=== PATIENT | female | born 1995 | race African-American/Black ===

== ENCOUNTER 2019-02-23 09:51 | Inpatient (IN) | payer SELFPAY ==
[~2019-02-23] VITALS: Ht 162.6 cm; Wt 67.4 kg
[2019-02-23] VITALS (8 sets, daily range): BP systolic 104–118; BP diastolic 57–64
--- OUTSIDE RECORDS SUMMARY | 2019-02-23 09:54 | XMS REPORT | Clinical Summary ---
Author Author [facility] [employer] [facility] Address Unknown Phone Unavailable Care Team Providers Care Vegetable Handler Name Role Phone Suleiman Banuelos MD PCP Allergies Comments Active Allergy Reactions Severity Noted Date "throat closes, lips/face breaks out" Amoxicillin-Pot Shortness Of High 11/25/2016 Clavulanate Breath, Itching, Other (See Comments) Hives on arm of IV site. Reaction to IV only. Patient takes tablets at home. Morphine Hives Medium 01/23/2017 Medications End Date Status Medication Sig Dispensed Refills Start Date Active ALPRAZolam (XANAX) 0.5 MG Take 0.5 mg 0 tablet by mouth 3 (three) times a day as needed for anxiety. Active folic acid (FOLVITE) 1 MG Take 1 mg by 0 tablet mouth daily. Active atenolol (TENORMIN) 25 MG Take 25 mg by 0 tablet mouth daily. Active loratadine (CLARITIN) 10 Take 10 mg by 0 mg tablet mouth daily as needed for allergies. Active lidocaine (LIDODERM) 5 % Place 1 patch 0 on the skin daily as needed for mild pain. Remove & Discard patch within 12 hours or as directed by MD Active morPHINE (MSIR) 15 MG Take 15 mg by 0 tablet mouth every 3 (three) hours as needed for severe pain. Active morPHINE (MS CONTIN) 30 Take 30 mg by 0 MG 12 hr tablet mouth 2 (two) times a day. Active HYDROcodone-acetaminophen Take 1 tablet 0 (NORCO) 10-325 mg per by mouth tablet every 6 (six) hours as needed for moderate pain. 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 Negative cardiac w/u Generalized pain 02/06/2017 Sickle cell pain crisis 01/31/2017 Near syncope 01/23/2017 Sickle cell anemia 11/30/2016 Drug-induced constipation 11/30/2016 Hypertension 11/26/2016 Sickle cell crisis 11/25/2016 Family History Medical History Relation Name Comments Sickle cell trait Brother Sickle cell anemia Father Sickle cell anemia Mother Relation Name Status Comments Brother Father Mother Social History Date Tobacco Use Types Packs/Day Years Used Never Smoker Alcohol Use Drinks/Week oz/Week Comments No Sex Assigned at Date Recorded Not on file Industry Job Start Date Occupation Not on file Not on file Not on file Travel End Travel History Travel Start No recent travel history available. Last Filed Vital Signs Not on file Plan of Treatment Health Maintenance Due Date Last Done Comments CHLAMYDIA SCREENING 2012 CERVICAL CANCER SCREENING 2017 INFLUENZA VACCINE 05/23/2019 Procedures Comments Procedure Name Priority Date/Time Associated Diagnosis TRANSFUSE RED BLOOD CELLS Routine 06/27/2018 5:32 PM CDT TRANSFUSE RED BLOOD CELLS Routine 06/27/2018 5:30 PM CDT TRANSFUSE RED BLOOD CELLS Routine 06/27/2018 5:30 PM CDT after 02/22/2018 Results * Transfuse RBC (06/27/2018 5:32 PM CDT) Only the most recent of 3 results within the time period is included. after 02/22/2018 Insurance Payer Benefit Subscriber ID Type Phone Address Plan / Group [facility] xxxxxxxxx HMO/PPO THCARE CHOICE/CHO ICE + Advance Directives Patient has advance care planning documents on file. For more information, louie strauss contact: Andrew Ruiz [address] [place] [address]
--- OUTSIDE RECORDS SUMMARY | 2019-02-23 09:58 | XMS REPORT ---
Author Author [facility] Address Unknown Phone Unavailable Care Team Providers Care Field Installer Name Role Phone HILLIARDDC RICKS DELORIS Unavailable Unavailable MATT HASKINS Unavailable Unavailable EVRE OLSEN Unavailable Unavailable BUFFY FLORES Unavailable Unavailable MATT COBIAN Unavailable Unavailable Анна JJ Unavailable Unavailable GAMAL, ARISheyla Unavailable Unavailable BILL REN Unavailable Unavailable Karlie CRUZ Unavailable Unavailable ENEDINA PHELPS Unavailable Unavailable CHEN SHEPHERD Unavailable Unavailable JACEK SENA Unavailable Unavailable Problems This patient has no known problems. Allergies, Adverse Reactions, Alerts This patient has no known allergies or adverse reactions. Medications This patient has no known medications. Encounters Start Date/Time End Date/Time Encounter Type Admission Type Attending [facility] Facility Care Department Encounter ID 2017-11-10 15:25:02 Inpatient [facility] [id number] 2017-11-09 16:41:26 Inpatient [facility] [id number] 2017-11-08 14:02:58 Inpatient [facility] [id number] 2017-11-07 10:48:26 Inpatient [facility] [id number] 2017-11-05 21:25:29 Inpatient [facility] [id number] 2017-11-05 13:50:24 Inpatient [facility] [id number] 2017-11-12 14:50:04 2017-11-12 00:00:00 Inpatient [facility] [id number] 2017-11-09 00:00:00 2017-11-09 00:00:00 Outpatient [facility] [id number] 2017-11-08 14:05:30 2017-11-08 00:00:00 Inpatient [facility] [id number] 2017-11-05 06:30:40 2017-11-05 06:30:40 Inpatient [facility] [id number] 2017-11-05 19:37:38 2017-11-05 00:00:00 Inpatient [facility] [id number] 2017-08-04 16:22:16 2017-08-04 16:22:16 Emergency [facility] [id number] 2017-08-04 14:03:22 2017-08-04 14:03:22 Inpatient [facility] [id number] Results Test Description Test Time Test Comments Text Results Atomic Results Result Comments LACTATE DEHYDROGENASE (LDH) 2019-02-22 09:34:00 LACTATE DEHYDROGENASE (BEAKER) (test zwbh=155) 301 U/L 125-220 BASIC METABOLIC [id number] 09:34:00* Test Item Value Reference Range Comments SODIUM (BEAKER) (test qznn=786) 140 meq/L 136-145 POTASSIUM (BEAKER) (test lnig=957) 3.6 meq/L 3.5-5.1 CHLORIDE (BEAKER) (test pkut=988) 105 meq/L 98-107 CO2 (BEAKER) (test bdth=768) 27 meq/L 22-29 BLOOD UREA NITROGEN (BEAKER) (test tiir=111) 4 mg/dL 7-21 CREATININE (BEAKER) (test evqo=751) 0.55 mg/dL 0.57-1.25 GLUCOSE RANDOM (BEAKER) (test mgti=982) 120 mg/dL 70-105 CALCIUM (BEAKER) (test jmcw=111) 9.5 mg/dL 8.4-10.2 EGFR (BEAKER) (test nqis=2514) 168 mL/min/1.73 sq m ESTIMATED GFR IS NOT ACCURATE CREATININE CLEARANCE IN PREDICTING GLOMERULAR FILTRATION RATE. ESTIMATED GFR IS NOT APPLICABLE FOR DIALYSIS PATIENTS. CBC W/PLT COUNT & AUTO [id number] 09:12:00* Test Item Value Reference Range Comments WHITE BLOOD CELL COUNT (BEAKER) (test udat=883) 11.8 K/ L 3.5-10.5 RED BLOOD CELL COUNT (BEAKER) (test skwp=455) 3.26 M/ L 3.93-5.22 HEMOGLOBIN (BEAKER) (test bjlo=602) 7.2 GM/DL 11.2-15.7 HEMATOCRIT (BEAKER) (test dvar=708) 23.0 % 34.1-44.9 MEAN CORPUSCULAR VOLUME (BEAKER) (test disn=148) 70.6 fL 79.4-94.8 MEAN CORPUSCULAR HEMOGLOBIN (BEAKER) (test rjuz=646) 22.1 pg 25.6-32.2 MEAN CORPUSCULAR HEMOGLOBIN CONC (BEAKER) (test hgtf=943) 31.3 GM/DL 32.2-35.5 RED CELL DISTRIBUTION WIDTH (BEAKER) (test glnv=315) 17.2 % 11.7-14.4 PLATELET COUNT (BEAKER) (test vrno=285) 329 K/CU MM 150-450 MEAN PLATELET VOLUME (BEAKER) (test vxfv=904) 9.6 fL 9.4-12.3 NUCLEATED RED BLOOD CELLS (BEAKER) (test kvsb=493) 2 /100 WBC 0-0 NEUTROPHILS RELATIVE PERCENT (BEAKER) (test jbkc=403) 76 % LYMPHOCYTES RELATIVE PERCENT (BEAKER) (test slgm=123) 14 % MONOCYTES RELATIVE PERCENT (BEAKER) (test furh=025) 7 % EOSINOPHILS RELATIVE PERCENT (BEAKER) (test zatu=951) 2 % BASOPHILS RELATIVE PERCENT (BEAKER) (test ergp=688) 1 % NEUTROPHILS ABSOLUTE COUNT (BEAKER) (test mslr=332) 8.91 K/ L 1.56-6.13 LYMPHOCYTES ABSOLUTE COUNT (BEAKER) (test hbgy=506) 1.67 K/ L 1.18-3.74 MONOCYTES ABSOLUTE COUNT (BEAKER) (test ymyv=127) 0.86 K/ L 0.24-0.36 EOSINOPHILS ABSOLUTE COUNT (BEAKER) (test udca=972) 0.25 K/ L 0.04-0.36 BASOPHILS ABSOLUTE COUNT (BEAKER) (test qjgm=400) 0.08 K/ L 0.01-0.08 IMMATURE GRANULOCYTES-RELATIVE PERCENT (BEAKER) (test xsnm=7702) 0 % 0-1 RETICULOCYTE [id number] 09:12:00* Test Item Value Reference Range Comments RETICULOCYTE COUNT PCT (BEAKER) (test osmh=006) 9.7 % 0.5-1.7 BASIC METABOLIC [id number] 12:44:00* Test Item Value Reference Range Comments SODIUM (BEAKER) (test blrw=647) 141 meq/L 136-145 POTASSIUM (BEAKER) (test ecpa=935) 3.4 meq/L 3.5-5.1 CHLORIDE (BEAKER) (test epks=578) 106 meq/L 98-107 CO2 (BEAKER) (test nnnj=553) 25 meq/L 22-29 BLOOD UREA NITROGEN (BEAKER) (test phir=784) 3 mg/dL 7-21 CREATININE (BEAKER) (test hxja=323) 0.57 mg/dL 0.57-1.25 GLUCOSE RANDOM (BEAKER) (test arcc=461) 109 mg/dL 70-105 CALCIUM (BEAKER) (test ches=299) 8.9 mg/dL 8.4-10.2 EGFR (BEAKER) (test qhyt=1955) 161 mL/min/1.73 sq m ESTIMATED GFR IS NOT ACCURATE CREATININE CLEARANCE IN PREDICTING GLOMERULAR FILTRATION RATE. ESTIMATED GFR IS NOT APPLICABLE FOR DIALYSIS PATIENTS. CBC W/PLT COUNT & AUTO [id number] 06:10:00* Test Item Value Reference Range Comments WHITE BLOOD CELL COUNT (BEAKER) (test kkxz=608) 9.6 K/ L 3.5-10.5 RED BLOOD CELL COUNT (BEAKER) (test bcgy=935) 2.96 M/ L 3.93-5.22 HEMOGLOBIN (BEAKER) (test leea=217) 6.6 GM/DL 11.2-15.7 HEMATOCRIT (BEAKER) (test anea=488) 21.1 % 34.1-44.9 MEAN CORPUSCULAR VOLUME (BEAKER) (test snae=379) 71.3 fL 79.4-94.8 MEAN CORPUSCULAR HEMOGLOBIN (BEAKER) (test sayk=516) 22.3 pg 25.6-32.2 MEAN CORPUSCULAR HEMOGLOBIN CONC (BEAKER) (test lcmc=583) 31.3 GM/DL 32.2-35.5 RED CELL DISTRIBUTION WIDTH (BEAKER) (test rbjl=058) 16.6 % 11.7-14.4 PLATELET COUNT (BEAKER) (test dgpw=019) 294 K/CU MM 150-450 MEAN PLATELET VOLUME (BEAKER) (test ymsz=791) 10.2 fL 9.4-12.3 NUCLEATED RED BLOOD CELLS (BEAKER) (test wikb=891) 2 /100 WBC 0-0 NEUTROPHILS RELATIVE PERCENT (BEAKER) (test znmn=799) 57 % LYMPHOCYTES RELATIVE PERCENT (BEAKER) (test knkc=495) 28 % MONOCYTES RELATIVE PERCENT (BEAKER) (test dywn=557) 9 % EOSINOPHILS RELATIVE PERCENT (BEAKER) (test tgsm=459) 4 % BASOPHILS RELATIVE PERCENT (BEAKER) (test egpd=715) 1 % NEUTROPHILS ABSOLUTE COUNT (BEAKER) (test wcuh=633) 5.40 K/ L 1.56-6.13 LYMPHOCYTES ABSOLUTE COUNT (BEAKER) (test nqlz=936) 2.64 K/ L 1.18-3.74 MONOCYTES ABSOLUTE COUNT (BEAKER) (test eibp=590) 0.89 K/ L 0.24-0.36 EOSINOPHILS ABSOLUTE COUNT (BEAKER) (test arkg=780) 0.42 K/ L 0.04-0.36 BASOPHILS ABSOLUTE COUNT (BEAKER) (test xaes=577) 0.12 K/ L 0.01-0.08 IMMATURE GRANULOCYTES-RELATIVE PERCENT (BEAKER) (test oksd=6919) 1 % 0-1 RETICULOCYTE [id number] 06:10:00* Test Item Value Reference Range Comments RETICULOCYTE COUNT PCT (BEAKER) (test yltw=037) 8.0 % 0.5-1.7 BASIC METABOLIC [id number] 13:34:00* Test Item Value Reference Range Comments SODIUM (BEAKER) (test gcqa=967) 143 meq/L 136-145 POTASSIUM (BEAKER) (test larx=686) 4.1 meq/L 3.5-5.1 CHLORIDE (BEAKER) (test swmq=680) 107 meq/L 98-107 CO2 (BEAKER) (test savr=092) 30 meq/L 22-29 BLOOD UREA NITROGEN (BEAKER) (test ofaq=252) 3 mg/dL 7-21 CREATININE (BEAKER) (test xylx=681) 0.54 mg/dL 0.57-1.25 GLUCOSE RANDOM (BEAKER) (test ftbt=484) 95 mg/dL 70-105 CALCIUM (BEAKER) (test ujqf=101) 9.5 mg/dL 8.4-10.2 EGFR (BEAKER) (test ytvt=5603) 171 mL/min/1.73 sq m ESTIMATED GFR IS NOT ACCURATE CREATININE CLEARANCE IN PREDICTING GLOMERULAR FILTRATION RATE. ESTIMATED GFR IS NOT APPLICABLE FOR DIALYSIS PATIENTS. LACTATE DEHYDROGENASE (LDH)2019-02-20 12:57:00* Test Item Value Reference Range Comments LACTATE DEHYDROGENASE (BEAKER) (test feho=617) 392 U/L 125-220 CBC W/PLT COUNT & AUTO [id number] 12:51:00* Test Item Value Reference Range Comments WHITE BLOOD CELL COUNT (BEAKER) (test xxkx=105) 8.5 K/ L 3.5-10.5 RED BLOOD CELL COUNT (BEAKER) (test bbta=896) 3.18 M/ L 3.93-5.22 HEMOGLOBIN (BEAKER) (test phkr=098) 7.1 GM/DL 11.2-15.7 HEMATOCRIT (BEAKER) (test xvua=671) 22.4 % 34.1-44.9 MEAN CORPUSCULAR VOLUME (BEAKER) (test rfqv=813) 70.4 fL 79.4-94.8 MEAN CORPUSCULAR HEMOGLOBIN (BEAKER) (test etgi=419) 22.3 pg 25.6-32.2 MEAN CORPUSCULAR HEMOGLOBIN CONC (BEAKER) (test ikjs=846) 31.7 GM/DL 32.2-35.5 RED CELL DISTRIBUTION WIDTH (BEAKER) (test jixm=889) 16.3 % 11.7-14.4 PLATELET COUNT (BEAKER) (test ffyk=636) 301 K/CU MM 150-450 MEAN PLATELET VOLUME (BEAKER) (test mrhj=015) 9.8 fL 9.4-12.3 NUCLEATED RED BLOOD CELLS (BEAKER) (test luqz=216) 2 /100 WBC 0-0 NEUTROPHILS RELATIVE PERCENT (BEAKER) (test fohv=088) 59 % LYMPHOCYTES RELATIVE PERCENT (BEAKER) (test kwlb=692) 25 % MONOCYTES RELATIVE PERCENT (BEAKER) (test bpzc=302) 8 % EOSINOPHILS RELATIVE PERCENT (BEAKER) (test ynpr=582) 6 % BASOPHILS RELATIVE PERCENT (BEAKER) (test enzi=423) 1 % NEUTROPHILS ABSOLUTE COUNT (BEAKER) (test qzis=317) 5.02 K/ L 1.56-6.13 LYMPHOCYTES ABSOLUTE COUNT (BEAKER) (test ncpe=247) 2.13 K/ L 1.18-3.74 MONOCYTES ABSOLUTE COUNT (BEAKER) (test qgnt=873) 0.68 K/ L 0.24-0.36 EOSINOPHILS ABSOLUTE COUNT (BEAKER) (test xoot=199) 0.50 K/ L 0.04-0.36 BASOPHILS ABSOLUTE COUNT (BEAKER) (test ruay=595) 0.11 K/ L 0.01-0.08 IMMATURE GRANULOCYTES-RELATIVE PERCENT (BEAKER) (test zgos=6112) 1 % 0-1 RETICULOCYTE [id number] 07:10:00* Test Item Value Reference Range Comments RETICULOCYTE COUNT PCT (BEAKER) (test oroq=733) 6.7 % 0.5-1.7 CBC W/PLT COUNT & AUTO [id number] 07:08:00* Test Item Value Reference Range Comments WHITE BLOOD CELL COUNT (BEAKER) (test unqc=647) 6.9 K/ L 3.5-10.5 RED BLOOD CELL COUNT (BEAKER) (test fnlz=684) 2.93 M/ L 3.93-5.22 HEMOGLOBIN (BEAKER) (test dkqy=188) 6.4 GM/DL 11.2-15.7 HEMATOCRIT (BEAKER) (test soqq=355) 20.6 % 34.1-44.9 MEAN CORPUSCULAR VOLUME (BEAKER) (test kvzf=091) 70.3 fL 79.4-94.8 MEAN CORPUSCULAR HEMOGLOBIN (BEAKER) (test yzjp=704) 21.8 pg 25.6-32.2 MEAN CORPUSCULAR HEMOGLOBIN CONC (BEAKER) (test khrq=367) 31.1 GM/DL 32.2-35.5 RED CELL DISTRIBUTION WIDTH (BEAKER) (test qyah=247) 15.9 % 11.7-14.4 PLATELET COUNT (BEAKER) (test ovaa=956) 231 K/CU MM 150-450 MEAN PLATELET VOLUME (BEAKER) (test ndoi=653) 10.6 fL 9.4-12.3 NUCLEATED RED BLOOD CELLS (BEAKER) (test wjdo=683) 1 /100 WBC 0-0 NEUTROPHILS RELATIVE PERCENT (BEAKER) (test ydaj=575) 48 % LYMPHOCYTES RELATIVE PERCENT (BEAKER) (test xlnu=824) 33 % MONOCYTES RELATIVE PERCENT (BEAKER) (test mmvd=262) 12 % EOSINOPHILS RELATIVE PERCENT (BEAKER) (test wsaq=046) 6 % BASOPHILS RELATIVE PERCENT (BEAKER) (test jhef=028) 1 % NEUTROPHILS ABSOLUTE COUNT (BEAKER) (test blwv=835) 3.30 K/ L 1.56-6.13 LYMPHOCYTES ABSOLUTE COUNT (BEAKER) (test bwbc=890) 2.25 K/ L 1.18-3.74 MONOCYTES ABSOLUTE COUNT (BEAKER) (test rzat=567) 0.85 K/ L 0.24-0.36 EOSINOPHILS ABSOLUTE COUNT (BEAKER) (test khdx=611) 0.38 K/ L 0.04-0.36 BASOPHILS ABSOLUTE COUNT (BEAKER) (test awdt=174) 0.07 K/ L 0.01-0.08 IMMATURE GRANULOCYTES-RELATIVE PERCENT (BEAKER) (test nlnd=8193) 0 % 0-1 BASIC METABOLIC [id number] 06:12:00* Test Item Value Reference Range Comments SODIUM (BEAKER) (test osgl=725) 144 meq/L 136-145 POTASSIUM (BEAKER) (test psqi=224) 3.4 meq/L 3.5-5.1 CHLORIDE (BEAKER) (test nsxo=334) 109 meq/L 98-107 CO2 (BEAKER) (test mdar=242) 29 meq/L 22-29 BLOOD UREA NITROGEN (BEAKER) (test wctn=776) 6 mg/dL 7-21 CREATININE (BEAKER) (test cxqp=217) 0.49 mg/dL 0.57-1.25 GLUCOSE RANDOM (BEAKER) (test vdhh=055) 100 mg/dL 70-105 CALCIUM (BEAKER) (test bxwr=105) 9.0 mg/dL 8.4-10.2 EGFR (BEAKER) (test nnmx=9328) 191 mL/min/1.73 sq m ESTIMATED GFR IS NOT ACCURATE CREATININE CLEARANCE IN PREDICTING GLOMERULAR FILTRATION RATE. ESTIMATED GFR IS NOT APPLICABLE FOR DIALYSIS PATIENTS. CBC W/PLT COUNT & AUTO [id number] 06:31:00* Test Item Value Reference Range Comments WHITE BLOOD CELL COUNT (BEAKER) (test ccaa=804) 8.0 K/ L 3.5-10.5 RED BLOOD CELL COUNT (BEAKER) (test uueu=476) 2.67 M/ L 3.93-5.22 HEMOGLOBIN (BEAKER) (test zvdt=426) 6.0 GM/DL 11.2-15.7 HEMATOCRIT (BEAKER) (test gvzh=851) 19.3 % 34.1-44.9 MEAN CORPUSCULAR VOLUME (BEAKER) (test axsc=293) 72.3 fL 79.4-94.8 MEAN CORPUSCULAR HEMOGLOBIN (BEAKER) (test dtij=385) 22.5 pg 25.6-32.2 MEAN CORPUSCULAR HEMOGLOBIN CONC (BEAKER) (test drel=849) 31.1 GM/DL 32.2-35.5 RED CELL DISTRIBUTION WIDTH (BEAKER) (test wmjc=342) 15.9 % 11.7-14.4 PLATELET COUNT (BEAKER) (test qtfr=603) 191 K/CU MM 150-450 MEAN PLATELET VOLUME (BEAKER) (test rxss=786) 10.5 fL 9.4-12.3 NUCLEATED RED BLOOD CELLS (BEAKER) (test mjfh=988) 0 /100 WBC 0-0 NEUTROPHILS RELATIVE PERCENT (BEAKER) (test jgei=586) 54 % LYMPHOCYTES RELATIVE PERCENT (BEAKER) (test pjta=263) 26 % MONOCYTES RELATIVE PERCENT (BEAKER) (test afvs=436) 14 % EOSINOPHILS RELATIVE PERCENT (BEAKER) (test cjww=462) 5 % BASOPHILS RELATIVE PERCENT (BEAKER) (test nvyo=789) 1 % NEUTROPHILS ABSOLUTE COUNT (BEAKER) (test sxmj=087) 4.33 K/ L 1.56-6.13 LYMPHOCYTES ABSOLUTE COUNT (BEAKER) (test xnxc=721) 2.05 K/ L 1.18-3.74 MONOCYTES ABSOLUTE COUNT (BEAKER) (test nuox=867) 1.13 K/ L 0.24-0.36 EOSINOPHILS ABSOLUTE COUNT (BEAKER) (test bnap=525) 0.40 K/ L 0.04-0.36 BASOPHILS ABSOLUTE COUNT (BEAKER) (test lyvt=702) 0.06 K/ L 0.01-0.08 IMMATURE GRANULOCYTES-RELATIVE PERCENT (BEAKER) (test jnbr=4512) 0 % 0-1 RETICULOCYTE [id number] 06:27:00* Test Item Value Reference Range Comments RETICULOCYTE COUNT PCT (BEAKER) (test nyii=772) 6.7 % 0.5-1.7 CBC W/PLT COUNT & AUTO [id number] 07:16:00* Test Item Value Reference Range Comments WHITE BLOOD CELL COUNT (BEAKER) (test hcrl=784) 8.9 K/ L 3.5-10.5 RED BLOOD CELL COUNT (BEAKER) (test qtio=737) 2.74 M/ L 3.93-5.22 HEMOGLOBIN (BEAKER) (test jwnl=125) 6.1 GM/DL 11.2-15.7 HEMATOCRIT (BEAKER) (test przy=824) 19.8 % 34.1-44.9 MEAN CORPUSCULAR VOLUME (BEAKER) (test kdjl=369) 72.3 fL 79.4-94.8 MEAN CORPUSCULAR HEMOGLOBIN (BEAKER) (test nusq=876) 22.3 pg 25.6-32.2 MEAN CORPUSCULAR HEMOGLOBIN CONC (BEAKER) (test wyng=900) 30.8 GM/DL 32.2-35.5 RED CELL DISTRIBUTION WIDTH (BEAKER) (test bqfw=566) 15.5 % 11.7-14.4 PLATELET COUNT (BEAKER) (test xciy=465) 172 K/CU MM 150-450 MEAN PLATELET VOLUME (BEAKER) (test zpbm=229) 10.6 fL 9.4-12.3 NUCLEATED RED BLOOD CELLS (BEAKER) (test znsr=547) 0 /100 WBC 0-0 NEUTROPHILS RELATIVE PERCENT (BEAKER) (test rfyt=894) 55 % LYMPHOCYTES RELATIVE PERCENT (BEAKER) (test basq=010) 26 % MONOCYTES RELATIVE PERCENT (BEAKER) (test valh=282) 14 % EOSINOPHILS RELATIVE PERCENT (BEAKER) (test ewim=818) 4 % BASOPHILS RELATIVE PERCENT (BEAKER) (test dvxs=473) 1 % NEUTROPHILS ABSOLUTE COUNT (BEAKER) (test kwij=766) 4.93 K/ L 1.56-6.13 LYMPHOCYTES ABSOLUTE COUNT (BEAKER) (test wder=323) 2.30 K/ L 1.18-3.74 MONOCYTES ABSOLUTE COUNT (BEAKER) (test vgkv=772) 1.21 K/ L 0.24-0.36 EOSINOPHILS ABSOLUTE COUNT (BEAKER) (test mprm=514) 0.37 K/ L 0.04-0.36 BASOPHILS ABSOLUTE COUNT (BEAKER) (test axld=063) 0.05 K/ L 0.01-0.08 IMMATURE GRANULOCYTES-RELATIVE PERCENT (BEAKER) (test mkby=6446) 1 % 0-1 RETICULOCYTE [id number] 07:16:00* Test Item Value Reference Range Comments RETICULOCYTE COUNT PCT (BEAKER) (test hqew=132) 6.2 % 0.5-1.7 RAD, CHEST, 1 VIEW, NON [id number] 17:17:00Reason for exam:->SOBShould this be performed at the bedside?->YesFINAL REPORT Comparison: 01/30/2019 TECHNIQUE: Single view of the chest FINDINGS: Left retrocardiac densities may represent atelectasis or pneumonitis. Otherwise lungs are clear. Cardiac silhouette is within normal limits. Soft tissues are unremarkable. No acute skeletal abnormality. Signed: Yung Sotelo MDReport Verified Date/Time: 02/16/2019 17:17:31 Reading Location: [facility] [id number] Ortho Consult Reading Room C METABOLIC [id number] 10:01:00* Test Item Value Reference Range Comments SODIUM (BEAKER) (test wobp=235) 144 meq/L 136-145 POTASSIUM (BEAKER) (test aneo=244) 3.6 meq/L 3.5-5.1 CHLORIDE (BEAKER) (test hauu=021) 113 meq/L 98-107 CO2 (BEAKER) (test pvzo=617) 26 meq/L 22-29 BLOOD UREA NITROGEN (BEAKER) (test tofa=703) 6 mg/dL 7-21 CREATININE (BEAKER) (test tdfh=584) 0.50 mg/dL 0.57-1.25 GLUCOSE RANDOM (BEAKER) (test upel=566) 85 mg/dL 70-105 CALCIUM (BEAKER) (test vrrd=148) 8.2 mg/dL 8.4-10.2 EGFR (BEAKER) (test wukf=6363) 187 mL/min/1.73 sq m ESTIMATED GFR IS NOT ACCURATE CREATININE CLEARANCE IN PREDICTING GLOMERULAR FILTRATION RATE. ESTIMATED GFR IS NOT APPLICABLE FOR DIALYSIS PATIENTS. RETICULOCYTE [id number] 09:42:00* Test Item Value Reference Range Comments RETICULOCYTE COUNT PCT (BEAKER) (test pzzw=694) 6.2 % 0.5-1.7 CBC W/PLT COUNT & AUTO [id number] 09:42:00* Test Item Value Reference Range Comments WHITE BLOOD CELL COUNT (BEAKER) (test tplu=464) 11.3 K/ L 3.5-10.5 RED BLOOD CELL COUNT (BEAKER) (test idpg=941) 2.61 M/ L 3.93-5.22 HEMOGLOBIN (BEAKER) (test fink=525) 6.1 GM/DL 11.2-15.7 HEMATOCRIT (BEAKER) (test lwhr=416) 18.7 % 34.1-44.9 MEAN CORPUSCULAR VOLUME (BEAKER) (test tojr=616) 71.6 fL 79.4-94.8 MEAN CORPUSCULAR HEMOGLOBIN (BEAKER) (test qbfy=431) 23.4 pg 25.6-32.2 MEAN CORPUSCULAR HEMOGLOBIN CONC (BEAKER) (test fsjo=210) 32.6 GM/DL 32.2-35.5 RED CELL DISTRIBUTION WIDTH (BEAKER) (test mygk=569) 15.8 % 11.7-14.4 PLATELET COUNT (BEAKER) (test vjhf=555) 162 K/CU MM 150-450 MEAN PLATELET VOLUME (BEAKER) (test jbca=922) 9.7 fL 9.4-12.3 NUCLEATED RED BLOOD CELLS (BEAKER) (test gvnl=247) 2 /100 WBC 0-0 NEUTROPHILS RELATIVE PERCENT (BEAKER) (test jhvq=645) 66 % LYMPHOCYTES RELATIVE PERCENT (BEAKER) (test fchf=709) 16 % MONOCYTES RELATIVE PERCENT (BEAKER) (test yfip=807) 13 % EOSINOPHILS RELATIVE PERCENT (BEAKER) (test gahs=216) 3 % BASOPHILS RELATIVE PERCENT (BEAKER) (test wdww=839) 0 % NEUTROPHILS ABSOLUTE COUNT (BEAKER) (test cjup=153) 7.45 K/ L 1.56-6.13 LYMPHOCYTES ABSOLUTE COUNT (BEAKER) (test mhqy=872) 1.83 K/ L 1.18-3.74 MONOCYTES ABSOLUTE COUNT (BEAKER) (test bsbk=646) 1.49 K/ L 0.24-0.36 EOSINOPHILS ABSOLUTE COUNT (BEAKER) (test uyrk=400) 0.36 K/ L 0.04-0.36 BASOPHILS ABSOLUTE COUNT (BEAKER) (test fsue=610) 0.05 K/ L 0.01-0.08 IMMATURE GRANULOCYTES-RELATIVE PERCENT (BEAKER) (test mxgl=7503) 1 % 0-1 BASIC METABOLIC [id number] 16:32:00* Test Item Value Reference Range Comments SODIUM (BEAKER) (test xwly=837) 145 meq/L 136-145 POTASSIUM (BEAKER) (test rmrg=143) 3.8 meq/L 3.5-5.1 Specimen slightly hemolyzed CHLORIDE (BEAKER) (test prpr=810) 111 meq/L 98-107 CO2 (BEAKER) (test uokc=180) 25 meq/L 22-29 BLOOD UREA NITROGEN (BEAKER) (test mhmh=146) 4 mg/dL 7-21 CREATININE (BEAKER) (test prqw=694) 0.56 mg/dL 0.57-1.25 Specimen slightly hemolyzed GLUCOSE RANDOM (BEAKER) (test sypd=605) 98 mg/dL 70-105 CALCIUM (BEAKER) (test gqxv=598) 9.5 mg/dL 8.4-10.2 EGFR (BEAKER) (test sksr=8255) 164 mL/min/1.73 sq m ESTIMATED GFR IS NOT ACCURATE CREATININE CLEARANCE IN PREDICTING GLOMERULAR FILTRATION RATE. ESTIMATED GFR IS NOT APPLICABLE FOR DIALYSIS PATIENTS. Specimen slightly ictericCBC W/PLT COUNT & AUTO [id number] 16:19:00 * Test Item Value Reference Range Comments WHITE BLOOD CELL COUNT (BEAKER) (test bear=647) 14.7 K/ L 3.5-10.5 RED BLOOD CELL COUNT (BEAKER) (test clnx=211) 3.46 M/ L 3.93-5.22 HEMOGLOBIN (BEAKER) (test xcwo=181) 7.9 GM/DL 11.2-15.7 HEMATOCRIT (BEAKER) (test blcw=655) 24.6 % 34.1-44.9 MEAN CORPUSCULAR VOLUME (BEAKER) (test iwht=644) 71.1 fL 79.4-94.8 MEAN CORPUSCULAR HEMOGLOBIN (BEAKER) (test aurn=803) 22.8 pg 25.6-32.2 MEAN CORPUSCULAR HEMOGLOBIN CONC (BEAKER) (test qzat=140) 32.1 GM/DL 32.2-35.5 RED CELL DISTRIBUTION WIDTH (BEAKER) (test hqti=374) 17.2 % 11.7-14.4 PLATELET COUNT (BEAKER) (test auxg=251) 220 K/CU MM 150-450 MEAN PLATELET VOLUME (BEAKER) (test bmur=811) 10.0 fL 9.4-12.3 NUCLEATED RED BLOOD CELLS (BEAKER) (test eojk=785) 1 /100 WBC 0-0 NEUTROPHILS RELATIVE PERCENT (BEAKER) (test zrmn=793) 64 % LYMPHOCYTES RELATIVE PERCENT (BEAKER) (test ourx=820) 20 % MONOCYTES RELATIVE PERCENT (BEAKER) (test nilp=316) 10 % EOSINOPHILS RELATIVE PERCENT (BEAKER) (test nmom=781) 2 % BASOPHILS RELATIVE PERCENT (BEAKER) (test atkv=001) 1 % NEUTROPHILS ABSOLUTE COUNT (BEAKER) (test cpnk=131) 9.35 K/ L 1.56-6.13 LYMPHOCYTES ABSOLUTE COUNT (BEAKER) (test camq=518) 2.87 K/ L 1.18-3.74 MONOCYTES ABSOLUTE COUNT (BEAKER) (test gfop=107) 1.49 K/ L 0.24-0.36 EOSINOPHILS ABSOLUTE COUNT (BEAKER) (test obgk=988) 0.23 K/ L 0.04-0.36 BASOPHILS ABSOLUTE COUNT (BEAKER) (test jvvs=863) 0.20 K/ L 0.01-0.08 IMMATURE GRANULOCYTES-RELATIVE PERCENT (BEAKER) (test cgfm=7068) 4 % 0-1 RETICULOCYTE [id number] 16:19:00* Test Item Value Reference Range Comments RETICULOCYTE COUNT PCT (BEAKER) (test awku=206) 7.3 % 0.5-1.7 BLOOD [id number] 08:00:00* Test Item Value Reference Range Comments CULTURE (BEAKER) (test isvi=2057) No growth in 5 days BLOOD [id number] 08:00:00* Test Item Value Reference Range Comments CULTURE (BEAKER) (test ilik=0958) No growth in 5 days LACTATE DEHYDROGENASE (LDH)2019-02-01 06:21:00* Test Item Value Reference Range Comments LACTATE DEHYDROGENASE (BEAKER) (test laoo=284) 296 U/L 125-220 BASIC METABOLIC [id number] 06:21:00* Test Item Value Reference Range Comments SODIUM (BEAKER) (test rcfs=706) 140 meq/L 136-145 POTASSIUM (BEAKER) (test pouv=873) 4.1 meq/L 3.5-5.1 CHLORIDE (BEAKER) (test rtym=111) 108 meq/L 98-107 CO2 (BEAKER) (test tssv=043) 24 meq/L 22-29 BLOOD UREA NITROGEN (BEAKER) (test xdbk=597) 3 mg/dL 7-21 CREATININE (BEAKER) (test bcpy=968) 0.55 mg/dL 0.57-1.25 GLUCOSE RANDOM (BEAKER) (test qmwy=220) 79 mg/dL 70-105 CALCIUM (BEAKER) (test vnvm=920) 9.2 mg/dL 8.4-10.2 EGFR (BEAKER) (test tbyu=6944) 168 mL/min/1.73 sq m ESTIMATED GFR IS NOT ACCURATE CREATININE CLEARANCE IN PREDICTING GLOMERULAR FILTRATION RATE. ESTIMATED GFR IS NOT APPLICABLE FOR DIALYSIS PATIENTS. HEPATIC FUNCTION [id number] 06:21:00* Test Item Value Reference Range Comments TOTAL PROTEIN (BEAKER) (test dwal=249) 6.1 gm/dL 6.0-8.3 ALBUMIN (BEAKER) (test gvol=7448) 3.9 g/dL 3.5-5.0 BILIRUBIN TOTAL (BEAKER) (test zwiv=646) 1.5 mg/dL 0.2-1.2 BILIRUBIN DIRECT (BEAKER) (test unnp=673) 0.6 mg/dL 0.1-0.5 ALKALINE PHOSPHATASE (BEAKER) (test sacv=247) 75 U/L 40-150 AST (SGOT) (BEAKER) (test qktc=571) 22 U/L 5-34 ALT (SGPT) (BEAKER) (test izrq=674) 9 U/L 6-55 CBC W/PLT COUNT & AUTO [id number] 06:06:00* Test Item Value Reference Range Comments WHITE BLOOD CELL COUNT (BEAKER) (test hvcj=957) 7.3 K/ L 3.5-10.5 RED BLOOD CELL COUNT (BEAKER) (test bdlm=844) 3.28 M/ L 3.93-5.22 HEMOGLOBIN (BEAKER) (test jmcr=906) 7.3 GM/DL 11.2-15.7 HEMATOCRIT (BEAKER) (test qttq=445) 23.9 % 34.1-44.9 MEAN CORPUSCULAR VOLUME (BEAKER) (test zsng=503) 72.9 fL 79.4-94.8 MEAN CORPUSCULAR HEMOGLOBIN (BEAKER) (test mvjs=228) 22.3 pg 25.6-32.2 MEAN CORPUSCULAR HEMOGLOBIN CONC (BEAKER) (test olxn=859) 30.5 GM/DL 32.2-35.5 RED CELL DISTRIBUTION WIDTH (BEAKER) (test pnwy=573) 16.7 % 11.7-14.4 PLATELET COUNT (BEAKER) (test tofl=244) 297 K/CU MM 150-450 MEAN PLATELET VOLUME (BEAKER) (test xtax=976) 9.9 fL 9.4-12.3 NUCLEATED RED BLOOD CELLS (BEAKER) (test wwtb=790) 2 /100 WBC 0-0 NEUTROPHILS RELATIVE PERCENT (BEAKER) (test eczf=977) 56 % LYMPHOCYTES RELATIVE PERCENT (BEAKER) (test kzau=825) 29 % MONOCYTES RELATIVE PERCENT (BEAKER) (test itvu=653) 10 % EOSINOPHILS RELATIVE PERCENT (BEAKER) (test rzal=240) 3 % BASOPHILS RELATIVE PERCENT (BEAKER) (test gppy=997) 1 % NEUTROPHILS ABSOLUTE COUNT (BEAKER) (test pxha=519) 4.09 K/ L 1.56-6.13 LYMPHOCYTES ABSOLUTE COUNT (BEAKER) (test akza=139) 2.12 K/ L 1.18-3.74 MONOCYTES ABSOLUTE COUNT (BEAKER) (test zouh=251) 0.76 K/ L 0.24-0.36 EOSINOPHILS ABSOLUTE COUNT (BEAKER) (test ccvr=319) 0.20 K/ L 0.04-0.36 BASOPHILS ABSOLUTE COUNT (BEAKER) (test skam=485) 0.08 K/ L 0.01-0.08 IMMATURE GRANULOCYTES-RELATIVE PERCENT (BEAKER) (test rqmf=5106) 0 % 0-1 CT, CHEST, WITHOUT [id number] 08:16:00Reason for exam:->CHEST PAINIs the patient ?->NoWhat is the patient's sedation requirement?->No Sedation FINAL REPORT TECHNIQUE: CT of the chest WITHOUT intraveno us contrast. Dose modulation, iterative reconstruction, and/or weight-based adju stment of the mA/kV was utilized to reduce the radiation dose to as low as reaso nably achievable. INDICATION: 23-year-old woman with chest pain. COMPARISON: [facility] st radiograph 01/30/2019, chest CT 12/06/2018. FINDINGS: ABSENCE OF INTRAVENOUS CONTRAST DECREASES SENSITIVITY FOR DETECTION OF FOCAL LESIONS AND VASCULAR PATHO LOGY. LINES/TUBES: None. LUNGS AND AIRWAYS: Central airways are patent. Linear c onsolidative opacities in both lung bases, slightly increased on the left since 12/06/2018. PLEURA: The pleural spaces are clear. HEART AND MEDIASTINUM: The visu alized thyroid gland is normal. No significant mediastinal, hilar, or axillary l ymphadenopathy. The heart and pericardium are within normal limits. SOFT TISSUES AND BONES: Unchanged patchy sclerosis in the visualized bones with H-shaped darby tebral bodies, consistent with sickle cell disease. Mild skin thickening in both axillary regions with mild underlying subcutaneous fat stranding on the left. U PPER ABDOMEN: Unremarkable. 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 Nonspecific skin thickening in both axillary regions. Cellulitis cannot be excluded. Signed: Maximo Cooper MDReport Verified Date/Time: 01/31/2019 0 8:16:49 Reading Location: [address] Transitional Reading Room Electronical ly signed by: MAXIMO COOPER MD on 01/31/2019 08:16 AM BASIC METABOLIC [id number] 06:58:00* Test Item Value Reference Range Comments SODIUM (BEAKER) (test jdbf=911) 140 meq/L 136-145 POTASSIUM (BEAKER) (test vqha=834) 4.6 meq/L 3.5-5.1 Specimen slightly hemolyzed CHLORIDE (BEAKER) (test fqfx=302) 111 meq/L 98-107 CO2 (BEAKER) (test ewkb=097) 23 meq/L 22-29 BLOOD UREA NITROGEN (BEAKER) (test lead=767) 4 mg/dL 7-21 CREATININE (BEAKER) (test hfzz=049) 0.53 mg/dL 0.57-1.25 Specimen slightly hemolyzed GLUCOSE RANDOM (BEAKER) (test guzd=760) 83 mg/dL 70-105 CALCIUM (BEAKER) (test qngv=799) 8.5 mg/dL 8.4-10.2 EGFR (BEAKER) (test gppj=2348) 175 mL/min/1.73 sq m ESTIMATED GFR IS NOT ACCURATE CREATININE CLEARANCE IN PREDICTING GLOMERULAR FILTRATION RATE. ESTIMATED GFR IS NOT APPLICABLE FOR DIALYSIS PATIENTS. HEPATIC FUNCTION [id number] 06:58:00* Test Item Value Reference Range Comments TOTAL PROTEIN (BEAKER) (test mavt=400) 6.0 gm/dL 6.0-8.3 Specimen slightly hemolyzed ALBUMIN (BEAKER) (test rkjf=4167) 3.7 g/dL 3.5-5.0 Specimen slightly hemolyzed BILIRUBIN TOTAL (BEAKER) (test cqef=129) 1.0 mg/dL 0.2-1.2 Specimen slightly hemolyzed BILIRUBIN DIRECT (BEAKER) (test pqlf=375) 0.4 mg/dL 0.1-0.5 Specimen slightly hemolyzed ALKALINE PHOSPHATASE (BEAKER) (test swzd=887) 78 U/L 40-150 AST (SGOT) (BEAKER) (test dzpu=685) 28 U/L 5-34 Specimen slightly hemolyzed ALT (SGPT) (BEAKER) (test ezsj=654) 11 U/L 6-55 Specimen slightly hemolyzed LACTATE DEHYDROGENASE (LDH)2019-01-31 06:58:00* Test Item Value Reference Range Comments LACTATE DEHYDROGENASE (BEAKER) (test asaf=828) 364 U/L 125-220 Specimen slightly hemolyzed CBC W/PLT COUNT & AUTO [id number] 05:29:00* Test Item Value Reference Range Comments WHITE BLOOD CELL COUNT (BEAKER) (test ecwr=501) 8.0 K/ L 3.5-10.5 RED BLOOD CELL COUNT (BEAKER) (test ktrp=030) 3.04 M/ L 3.93-5.22 HEMOGLOBIN (BEAKER) (test uytx=086) 7.1 GM/DL 11.2-15.7 HEMATOCRIT (BEAKER) (test apmk=842) 22.4 % 34.1-44.9 MEAN CORPUSCULAR VOLUME (BEAKER) (test yzkz=520) 73.7 fL 79.4-94.8 MEAN CORPUSCULAR HEMOGLOBIN (BEAKER) (test kfja=427) 23.4 pg 25.6-32.2 MEAN CORPUSCULAR HEMOGLOBIN CONC (BEAKER) (test nbrg=128) 31.7 GM/DL 32.2-35.5 RED CELL DISTRIBUTION WIDTH (BEAKER) (test fkrt=088) 17.5 % 11.7-14.4 PLATELET COUNT (BEAKER) (test urpg=142) 304 K/CU MM 150-450 MEAN PLATELET VOLUME (BEAKER) (test itlx=117) 10.0 fL 9.4-12.3 NUCLEATED RED BLOOD CELLS (BEAKER) (test wxsr=146) 2 /100 WBC 0-0 NEUTROPHILS RELATIVE PERCENT (BEAKER) (test tcrt=792) 55 % LYMPHOCYTES RELATIVE PERCENT (BEAKER) (test lyks=823) 30 % MONOCYTES RELATIVE PERCENT (BEAKER) (test chpc=356) 11 % EOSINOPHILS RELATIVE PERCENT (BEAKER) (test cycm=612) 3 % BASOPHILS RELATIVE PERCENT (BEAKER) (test auqr=681) 1 % NEUTROPHILS ABSOLUTE COUNT (BEAKER) (test amie=198) 4.41 K/ L 1.56-6.13 LYMPHOCYTES ABSOLUTE COUNT (BEAKER) (test eire=778) 2.42 K/ L 1.18-3.74 MONOCYTES ABSOLUTE COUNT (BEAKER) (test dhbx=231) 0.85 K/ L 0.24-0.36 EOSINOPHILS ABSOLUTE COUNT (BEAKER) (test svyt=279) 0.22 K/ L 0.04-0.36 BASOPHILS ABSOLUTE COUNT (BEAKER) (test uaos=488) 0.07 K/ L 0.01-0.08 IMMATURE GRANULOCYTES-RELATIVE PERCENT (BEAKER) (test rtcr=0158) 0 % 0-1 SCREEN, [id number] 01:17:00* Test Item Value Reference Range Comments TEST URINE (BEAKER) (test zwzn=168) Negative URINALYSIS W/ REFLEX URINE [id number] 01:17:00* Test Item Value Reference Range Comments COLOR (BEAKER) (test wysl=820) Yellow CLARITY (BEAKER) (test vopt=466) Hazy SPECIFIC GRAVITY UA (BEAKER) (test wqjd=738) 1.012 1.001-1.035 PH UA (BEAKER) (test ujpd=361) 7.0 5.0-8.0 PROTEIN UA (BEAKER) (test rgvh=265) Negative Negative GLUCOSE UA (BEAKER) (test sxgd=403) Negative Negative KETONES UA (BEAKER) (test njjb=981) Negative Negative BILIRUBIN UA (BEAKER) (test oovc=648) Negative Negative BLOOD UA (BEAKER) (test wfqb=751) Negative Negative NITRITE UA (BEAKER) (test znqs=771) Negative Negative LEUKOCYTE ESTERASE UA (BEAKER) (test nkbx=135) Negative Negative UROBILINOGEN UA (BEAKER) (test fbpi=955) 2.0 mg/dL 0.2-1.0 RBC UA (BEAKER) (test xvtk=490) < /HPF WBC UA (BEAKER) (test osph=753) 1 /HPF BACTERIA (BEAKER) (test dqac=971) Few MUCUS (BEAKER) (test tqqh=8297) Many SQUAMOUS EPITHELIAL (BEAKER) (test gnxg=644) 7 /HPF SOURCE(BEAKER) (test bezx=6317) TROPONIN [id number] 22:49:00* Test Item Value Reference Range Comments TROPONIN I (BEAKER) (test imfk=452) < ng/mL 0.00-0.03 Troponin I (TnI) levels must be interpreted in the context of the presenting sym ptoms and the clinical findings. Elevated TnI levels indicate myocardial damage, but are not specific for ischemic heart disease. Elevated TnI levels are seen in patients with other cardiac conditions (including myocarditis and congestive h eart failure), and slight TnI elevations occur in patients with other conditions , including sepsis, renal failure, acidosis, acute neurological disease, and per sistent tachyarrhythmia.[id number] 22:41:00* Test Item Value Reference Range Comments MAGNESIUM (BEAKER) (test osvt=969) 2.5 mg/dL 1.6-2.6 BASIC METABOLIC [id number] 22:41:00* Test Item Value Reference Range Comments SODIUM (BEAKER) (test cxxz=545) 143 meq/L 136-145 POTASSIUM (BEAKER) (test emxa=327) 4.1 meq/L 3.5-5.1 CHLORIDE (BEAKER) (test hmaw=218) 111 meq/L 98-107 CO2 (BEAKER) (test dmhp=828) 25 meq/L 22-29 BLOOD UREA NITROGEN (BEAKER) (test esih=078) 5 mg/dL 7-21 CREATININE (BEAKER) (test hztn=144) 0.54 mg/dL 0.57-1.25 GLUCOSE RANDOM (BEAKER) (test wkdt=467) 78 mg/dL 70-105 CALCIUM (BEAKER) (test llli=275) 9.4 mg/dL 8.4-10.2 EGFR (BEAKER) (test expb=9960) 171 mL/min/1.73 sq m ESTIMATED GFR IS NOT ACCURATE CREATININE CLEARANCE IN PREDICTING GLOMERULAR FILTRATION RATE. ESTIMATED GFR IS NOT APPLICABLE FOR DIALYSIS PATIENTS. PT/[id number] 22:40:00* Test Item Value Reference Range Comments PROTIME (BEAKER) (test yvlw=362) 14.1 seconds 11.7-14.7 INR (BEAKER) (test egnw=419) 1.1 <=5.9 PARTIAL THROMBOPLASTIN TIME (BEAKER) (test dbhs=102) 23.2 seconds 22.5-36.0 RECOMMENDED COUMADIN/WARFARIN INR THERAPY RANGESSTANDARD DOSE: 2.0 - 3.0 Inclu emma: PROPHYLAXIS for venous thrombosis, systemic embolization; TREATMENT for kim ous thrombosis and/or pulmonary embolus.HIGH RISK: Target INR is 2.5-3.5 for pat ients with mechanical heart valves.RETICULOCYTE [id number] 22:31:00* Test Item Value Reference Range Comments RETICULOCYTE COUNT PCT (BEAKER) (test remm=036) 8.7 % 0.5-1.7 CBC W/PLT COUNT & AUTO [id number] 22:31:00* Test Item Value Reference Range Comments WHITE BLOOD CELL COUNT (BEAKER) (test nndy=217) 10.7 K/ L 3.5-10.5 RED BLOOD CELL COUNT (BEAKER) (test kwhc=043) 3.33 M/ L 3.93-5.22 HEMOGLOBIN (BEAKER) (test zksz=267) 7.7 GM/DL 11.2-15.7 HEMATOCRIT (BEAKER) (test hecf=869) 24.6 % 34.1-44.9 MEAN CORPUSCULAR VOLUME (BEAKER) (test xtnr=514) 73.9 fL 79.4-94.8 MEAN CORPUSCULAR HEMOGLOBIN (BEAKER) (test lmbo=886) 23.1 pg 25.6-32.2 MEAN CORPUSCULAR HEMOGLOBIN CONC (BEAKER) (test omou=633) 31.3 GM/DL 32.2-35.5 RED CELL DISTRIBUTION WIDTH (BEAKER) (test fkxh=854) 17.9 % 11.7-14.4 PLATELET COUNT (BEAKER) (test gqis=598) 329 K/CU MM 150-450 MEAN PLATELET VOLUME (BEAKER) (test lhxm=510) 9.9 fL 9.4-12.3 NUCLEATED RED BLOOD CELLS (BEAKER) (test poxs=722) 2 /100 WBC 0-0 NEUTROPHILS RELATIVE PERCENT (BEAKER) (test klqd=363) 56 % LYMPHOCYTES RELATIVE PERCENT (BEAKER) (test qfnq=329) 30 % MONOCYTES RELATIVE PERCENT (BEAKER) (test clat=072) 11 % EOSINOPHILS RELATIVE PERCENT (BEAKER) (test heqi=053) 2 % BASOPHILS RELATIVE PERCENT (BEAKER) (test wzhf=183) 1 % NEUTROPHILS ABSOLUTE COUNT (BEAKER) (test sgcw=827) 6.01 K/ L 1.56-6.13 LYMPHOCYTES ABSOLUTE COUNT (BEAKER) (test qjxz=688) 3.24 K/ L 1.18-3.74 MONOCYTES ABSOLUTE COUNT (BEAKER) (test hems=687) 1.13 K/ L 0.24-0.36 EOSINOPHILS ABSOLUTE COUNT (BEAKER) (test vnvd=730) 0.21 K/ L 0.04-0.36 BASOPHILS ABSOLUTE COUNT (BEAKER) (test xvss=920) 0.09 K/ L 0.01-0.08 IMMATURE GRANULOCYTES-RELATIVE PERCENT (BEAKER) (test mnex=6442) 1 % 0-1 RAD, CHEST, 1 VIEW, NON [id number] 22:15:00Reason for exam:->CHEST PAINIs the patient ?->NoShould this be performed at the bedside?->NoFINAL REPORT INDICATION: CHEST PAIN COMPARISON: December 28, 2018 TECHNIQUE: Single frontal view of the chest. FINDINGS: Lungs and pleura: In terval development of focal airspace opacity within the left lower lung No effus ion.Heart and mediastinum: Normal heart size. Unremarkable mediastinal contours. Osseous structures: Vertebral changes compatible with known diagnosis of sickle cell anemiaOther: None. IMPRESSION: Focal airspace opacity within the left lowe r lung concerning for infection Signed: Macey Collins MDReport Verified Date/T jayson: 01/30/2019 22:15:58 Reading Location: [facility] C013V Neuro Reading Room Nedra ctronically signed by: MACEY COLLINS MD on 01/30/2019 10:15 PM BASIC METABOLIC [id number] 05:55:00* Test Item Value Reference Range Comments SODIUM (BEAKER) (test kxjc=954) 139 meq/L 136-145 POTASSIUM (BEAKER) (test gcdk=798) 3.6 meq/L 3.5-5.1 CHLORIDE (BEAKER) (test vkfd=958) 105 meq/L 98-107 CO2 (BEAKER) (test kxym=453) 26 meq/L 22-29 BLOOD UREA NITROGEN (BEAKER) (test oeyl=967) 3 mg/dL 7-21 CREATININE (BEAKER) (test jtgw=042) 0.57 mg/dL 0.57-1.25 GLUCOSE RANDOM (BEAKER) (test paqu=502) 92 mg/dL 70-105 CALCIUM (BEAKER) (test czdq=888) 9.5 mg/dL 8.4-10.2 EGFR (BEAKER) (test jxqd=9584) 161 mL/min/1.73 sq m ESTIMATED GFR IS NOT ACCURATE CREATININE CLEARANCE IN PREDICTING GLOMERULAR FILTRATION RATE. ESTIMATED GFR IS NOT APPLICABLE FOR DIALYSIS PATIENTS. CBC W/PLT COUNT & AUTO [id number] 04:57:00* Test Item Value Reference Range Comments WHITE BLOOD CELL COUNT (BEAKER) (test napx=101) 11.3 K/ L 3.5-10.5 RED BLOOD CELL COUNT (BEAKER) (test uaid=625) 3.61 M/ L 3.93-5.22 HEMOGLOBIN (BEAKER) (test pwtj=100) 8.4 GM/DL 11.2-15.7 HEMATOCRIT (BEAKER) (test xive=307) 27.0 % 34.1-44.9 MEAN CORPUSCULAR VOLUME (BEAKER) (test fmpm=427) 74.8 fL 79.4-94.8 MEAN CORPUSCULAR HEMOGLOBIN (BEAKER) (test qaql=896) 23.3 pg 25.6-32.2 MEAN CORPUSCULAR HEMOGLOBIN CONC (BEAKER) (test yuoy=472) 31.1 GM/DL 32.2-35.5 RED CELL DISTRIBUTION WIDTH (BEAKER) (test trxu=236) 19.3 % 11.7-14.4 PLATELET COUNT (BEAKER) (test glcz=298) 308 K/CU MM 150-450 MEAN PLATELET VOLUME (BEAKER) (test lhuy=736) 10.1 fL 9.4-12.3 NUCLEATED RED BLOOD CELLS (BEAKER) (test efkq=380) 2 /100 WBC 0-0 NEUTROPHILS RELATIVE PERCENT (BEAKER) (test xsas=176) 67 % LYMPHOCYTES RELATIVE PERCENT (BEAKER) (test oyfg=521) 19 % MONOCYTES RELATIVE PERCENT (BEAKER) (test zaai=541) 11 % EOSINOPHILS RELATIVE PERCENT (BEAKER) (test fsyp=580) 2 % BASOPHILS RELATIVE PERCENT (BEAKER) (test tksf=235) 1 % NEUTROPHILS ABSOLUTE COUNT (BEAKER) (test vwrz=269) 7.59 K/ L 1.56-6.13 LYMPHOCYTES ABSOLUTE COUNT (BEAKER) (test zynb=215) 2.10 K/ L 1.18-3.74 MONOCYTES ABSOLUTE COUNT (BEAKER) (test fxhw=876) 1.22 K/ L 0.24-0.36 EOSINOPHILS ABSOLUTE COUNT (BEAKER) (test klmi=322) 0.19 K/ L 0.04-0.36 BASOPHILS ABSOLUTE COUNT (BEAKER) (test jzok=819) 0.10 K/ L 0.01-0.08 IMMATURE GRANULOCYTES-RELATIVE PERCENT (BEAKER) (test uyrj=6437) 1 % 0-1 BASIC METABOLIC [id number] 13:20:00* Test Item Value Reference Range Comments SODIUM (BEAKER) (test ompr=385) 140 meq/L 136-145 POTASSIUM (BEAKER) (test cvvx=478) 4.4 meq/L 3.5-5.1 CHLORIDE (BEAKER) (test hcse=302) 109 meq/L 98-107 CO2 (BEAKER) (test warb=463) 23 meq/L 22-29 BLOOD UREA NITROGEN (BEAKER) (test poyr=582) 5 mg/dL 7-21 CREATININE (BEAKER) (test kozj=932) 0.55 mg/dL 0.57-1.25 GLUCOSE RANDOM (BEAKER) (test hvnn=623) 90 mg/dL 70-105 CALCIUM (BEAKER) (test qlxg=089) 9.0 mg/dL 8.4-10.2 EGFR (BEAKER) (test qfny=7417) 168 mL/min/1.73 sq m ESTIMATED GFR IS NOT ACCURATE CREATININE CLEARANCE IN PREDICTING GLOMERULAR FILTRATION RATE. ESTIMATED GFR IS NOT APPLICABLE FOR DIALYSIS PATIENTS. URINALYSIS W/ [id number] 11:58:00* Test Item Value Reference Range Comments COLOR (BEAKER) (test uqpa=699) Colorless CLARITY (BEAKER) (test nslo=576) Clear SPECIFIC GRAVITY UA (BEAKER) (test iqnm=974) 1.002 1.001-1.035 PH UA (BEAKER) (test zksi=419) 7.0 5.0-8.0 PROTEIN UA (BEAKER) (test etht=397) Negative Negative GLUCOSE UA (BEAKER) (test jnpn=857) Negative Negative KETONES UA (BEAKER) (test npdd=998) Negative Negative BILIRUBIN UA (BEAKER) (test eyqp=074) Negative Negative BLOOD UA (BEAKER) (test mrbg=534) Negative Negative NITRITE UA (BEAKER) (test yrkv=706) Negative Negative LEUKOCYTE ESTERASE UA (BEAKER) (test uswp=682) Negative Negative UROBILINOGEN UA (BEAKER) (test lhlf=109) 0.2 mg/dL 0.2-1.0 RBC UA (BEAKER) (test fcpe=934) 1 /HPF WBC UA (BEAKER) (test bcbb=387) 0 /HPF BACTERIA (BEAKER) (test ybne=487) Rare SQUAMOUS EPITHELIAL (BEAKER) (test cdff=675) 4 /HPF SOURCE(BEAKER) (test zjqy=7837) Urine, Voided SCREEN, [id number] 11:32:00* Test Item Value Reference Range Comments TEST URINE (BEAKER) (test iqui=914) Negative RETICULOCYTE [id number] 11:31:00* Test Item Value Reference Range Comments RETICULOCYTE COUNT PCT (BEAKER) (test sybr=655) 7.0 % 0.5-1.7 CBC W/PLT COUNT & AUTO [id number] 11:31:00* Test Item Value Reference Range Comments WHITE BLOOD CELL COUNT (BEAKER) (test exsm=935) 12.4 K/ L 3.5-10.5 RED BLOOD CELL COUNT (BEAKER) (test xxii=827) 3.58 M/ L 3.93-5.22 HEMOGLOBIN (BEAKER) (test ayqv=238) 8.5 GM/DL 11.2-15.7 HEMATOCRIT (BEAKER) (test wykw=760) 26.5 % 34.1-44.9 MEAN CORPUSCULAR VOLUME (BEAKER) (test vyij=981) 74.0 fL 79.4-94.8 MEAN CORPUSCULAR HEMOGLOBIN (BEAKER) (test fjjm=832) 23.7 pg 25.6-32.2 MEAN CORPUSCULAR HEMOGLOBIN CONC (BEAKER) (test psfj=429) 32.1 GM/DL 32.2-35.5 RED CELL DISTRIBUTION WIDTH (BEAKER) (test blbi=311) 19.6 % 11.7-14.4 PLATELET COUNT (BEAKER) (test pvyr=351) 296 K/CU MM 150-450 MEAN PLATELET VOLUME (BEAKER) (test tyjs=764) 9.6 fL 9.4-12.3 NUCLEATED RED BLOOD CELLS (BEAKER) (test rfmm=697) 2 /100 WBC 0-0 NEUTROPHILS RELATIVE PERCENT (BEAKER) (test ulcx=765) 58 % LYMPHOCYTES RELATIVE PERCENT (BEAKER) (test jrye=072) 26 % MONOCYTES RELATIVE PERCENT (BEAKER) (test ichc=263) 10 % EOSINOPHILS RELATIVE PERCENT (BEAKER) (test tlol=813) 2 % BASOPHILS RELATIVE PERCENT (BEAKER) (test savv=757) 1 % NEUTROPHILS ABSOLUTE COUNT (BEAKER) (test uwnp=303) 7.20 K/ L 1.56-6.13 LYMPHOCYTES ABSOLUTE COUNT (BEAKER) (test mqcj=155) 3.24 K/ L 1.18-3.74 MONOCYTES ABSOLUTE COUNT (BEAKER) (test uvss=655) 1.19 K/ L 0.24-0.36 EOSINOPHILS ABSOLUTE COUNT (BEAKER) (test kffs=638) 0.26 K/ L 0.04-0.36 BASOPHILS ABSOLUTE COUNT (BEAKER) (test vqkt=524) 0.16 K/ L 0.01-0.08 IMMATURE GRANULOCYTES-RELATIVE PERCENT (BEAKER) (test cgvf=2002) 3 % 0-1 RESPIRATORY PANEL [id number] 10:37:00* Test Item Value Reference Range Comments HUMAN METAPNEUMOVIRUS (BEAKER) (test zmjh=8915) Not detected Not detected, Equivocal RHINOVIRUS (BEAKER) (test boqq=3423) Not detected Not detected, Equivocal INFLUENZA A (BEAKER) (test rjuk=0708) Not detected Not detected, Equivocal INFLUENZA A (NO SUBTYPE) (test wjsh=1654) Not detected, Equivocal INFLUENZA A SUBTYPE H1 (BEAKER) (test zgbl=8075) Not detected, Equivocal INFLUENZA A SUBTYPE H3 (BEAKER) (test ezpf=6341) Not detected, Equivocal INFLUENZA A SUBTYPE H1-2009 (BEAKER) (test ofji=1364) Not detected, Equivocal INFLUENZA B (BEAKER) (test moqc=9325) Not detected Not detected, Equivocal RESPIRATORY SYNCYTIAL VIRUS (BEAKER) (test epzk=2096) Not detected Not detected, Equivocal PARAINFLUENZA VIRUS 1 (BEAKER) (test buvm=6785) Not detected Not detected, Equivocal PARAINFLUENZA VIRUS 2 (BEAKER) (test tvio=2012) Not detected Not detected, Equivocal PARAINFLUENZA VIRUS 3 (BEAKER) (test sykm=0221) Not detected Not detected, Equivocal PARAINFLUENZA VIRUS 4 (BEAKER) (test oykl=3640) Not detected Not detected, Equivocal ADENOVIRUS (BEAKER) (test byhf=2773) Not detected Not detected, Equivocal CORONAVIRUS 229E (BEAKER) (test sxzm=8428) Not detected Not detected, Equivocal CORONAVIRUS HKU1 (BEAKER) (test zpyt=5951) Not detected Not detected, Equivocal CORONAVIRUS NL63 (BEAKER) (test yhja=3701) Not detected Not detected, Equivocal CORONAVIRUS OC43 (BEAKER) (test uxjd=3260) Not detected Not detected, Equivocal BORDETELLA PERTUSSIS (BEAKER) (test pxmi=0569) Not detected Not detected, Equivocal CHLAMYDOPHILA PNEUMONIAE (BEAKER) (test toml=0543) Not detected Not detected, Equivocal MYCOPLASMA PNEUMONIAE (BEAKER) (test cqfm=3496) Not detected Not detected, Equivocal Other viruses and bacteria not targeted by this PCR panel cannot be excluded; th erefore clinical correlation and follow up of serology, culture results, and ot er molecular studies is required. The results are not intended to be used as the sole means for clinical diagnosis or patient management decisions. This sample was tested at the [facility] using the [employer] rray Respiratory Panel. It is FDA cleared and has been verified and approved by the [facility] for clinical use on nasal swab specim ens. It is not FDA-cleared for use on bronchial wash/lavage samples. However, fo r this sample type, validation was performed and test characteristics were deter mined and approved, by [facility] for clinical use u nder the Clinical Laboratory Improvement Amendments (CLIA) of 1988 requirements. Therefore, FDA clearance is not required. This laboratory is CLIA-certified and [employer] ([employer])-accredited to perform high complexity t esting.RAD, CHEST, 2 [id number] 23:23:00Reason for exam:->SICKLE CELL PAIN CRISISReason for exam:->cough with green sputumFINAL REPORT TECHNIQUE: RAD, CHEST, 2 VIEWS COMPARISON: Plain radiograph of the chest dated 12/04/2018. Additional clinical history: Sickle cell pain crisis. IMPRESSION: The cardiomediastinal silhouette is within normal limits. Patchy airspace opacities in the right perihilar and left lateral chest, similar to multiple priors may be related to scarring/atelectasis. Slight increased in bandlike airspace opacities over the spine on the lateral view may represent atelectasis however developing infiltration cannot be excluded in the proper setting. No large pleural effusion or pneumothorax. Sclerosis of bilateral humeral heads with a vascular necrosis. H-shaped vertebral bodies consistent wi th history of sickle cell anemia. Signed: Kenna Lyon Date/Time: 12/28/2018 23:23:07 Reading Location: [address] Read ing Room 11 :23 PM RAPID STREP A [id number] 23:03:00* Test Item Value Reference Range Comments STREP A ANTIGEN (BEAKER) (test rpdl=957) Negative Negative [id number] 22:54:00* Test Item Value Reference Range Comments PHOSPHORUS (BEAKER) (test islq=656) 3.7 mg/dL 2.3-4.7 [id number] 22:54:00* Test Item Value Reference Range Comments MAGNESIUM (BEAKER) (test zsgw=390) 2.1 mg/dL 1.6-2.6 HEPATIC FUNCTION [id number] 22:54:00* Test Item Value Reference Range Comments TOTAL PROTEIN (BEAKER) (test kbfr=217) 6.4 gm/dL 6.0-8.3 ALBUMIN (BEAKER) (test yvpo=0603) 4.2 g/dL 3.5-5.0 BILIRUBIN TOTAL (BEAKER) (test sxjn=375) 1.2 mg/dL 0.2-1.2 BILIRUBIN DIRECT (BEAKER) (test dzpm=524) 0.5 mg/dL 0.1-0.5 ALKALINE PHOSPHATASE (BEAKER) (test pycg=797) 65 U/L 40-150 AST (SGOT) (BEAKER) (test kxdt=924) 22 U/L 5-34 ALT (SGPT) (BEAKER) (test rnbl=813) 9 U/L 6-55 [id number] 22:54:00* Test Item Value Reference Range Comments LIPASE (BEAKER) (test rdqh=918) 6 U/L 8-78 SCREEN, [id number] 22:08:00* Test Item Value Reference Range Comments TEST URINE (BEAKER) (test blhw=801) Negative URINALYSIS W/ REFLEX URINE [id number] 22:07:00* Test Item Value Reference Range Comments COLOR (BEAKER) (test xcvu=732) Light Yellow CLARITY (BEAKER) (test haba=402) Hazy SPECIFIC GRAVITY UA (BEAKER) (test haun=331) 1.007 1.001-1.035 PH UA (BEAKER) (test gwwk=150) 7.0 5.0-8.0 PROTEIN UA (BEAKER) (test durj=483) Negative Negative GLUCOSE UA (BEAKER) (test vlgd=185) Negative Negative KETONES UA (BEAKER) (test rwcy=062) Negative Negative BILIRUBIN UA (BEAKER) (test rosf=137) Negative Negative BLOOD UA (BEAKER) (test yuwy=748) Small Negative NITRITE UA (BEAKER) (test hmho=364) Negative Negative LEUKOCYTE ESTERASE UA (BEAKER) (test zikk=773) Negative Negative UROBILINOGEN UA (BEAKER) (test nciz=917) 0.2 mg/dL 0.2-1.0 RBC UA (BEAKER) (test exmk=857) 1 /HPF WBC UA (BEAKER) (test tfyr=202) 1 /HPF BACTERIA (BEAKER) (test fpzb=170) Rare MUCUS (BEAKER) (test vjgo=2159) Rare SQUAMOUS EPITHELIAL (BEAKER) (test vpod=472) 7 /HPF SOURCE(BEAKER) (test ivlj=1298) CBC W/PLT COUNT & AUTO [id number] 15:47:00* Test Item Value Reference Range Comments WHITE BLOOD CELL COUNT (BEAKER) (test xplq=240) 16.3 K/ L 3.5-10.5 RED BLOOD CELL COUNT (BEAKER) (test gnbs=611) 3.54 M/ L 3.93-5.22 HEMOGLOBIN (BEAKER) (test imho=747) 8.3 GM/DL 11.2-15.7 HEMATOCRIT (BEAKER) (test rqrz=915) 27.1 % 34.1-44.9 MEAN CORPUSCULAR VOLUME (BEAKER) (test nxvv=002) 76.6 fL 79.4-94.8 MEAN CORPUSCULAR HEMOGLOBIN (BEAKER) (test ilvh=911) 23.4 pg 25.6-32.2 MEAN CORPUSCULAR HEMOGLOBIN CONC (BEAKER) (test dbpa=331) 30.6 GM/DL 32.2-35.5 RED CELL DISTRIBUTION WIDTH (BEAKER) (test yaid=074) 22.2 % 11.7-14.4 PLATELET COUNT (BEAKER) (test uuav=854) 292 K/CU MM 150-450 MEAN PLATELET VOLUME (BEAKER) (test fzoi=210) 9.9 fL 9.4-12.3 NUCLEATED RED BLOOD CELLS (BEAKER) (test hvok=102) 2 /100 WBC 0-0 (CELLAVISION MANUAL DIFF)[id number] 15:47:00* Test Item Value Reference Range Comments NEUTROPHILS - REL (CELLAVISION)(BEAKER) (test vxth=0676) 90 % LYMPHOCYTES - REL (CELLAVISION)(BEAKER) (test nmkz=9648) 9 % MONOCYTES - REL (CELLAVISION)(BEAKER) (test ghua=8660) 1 % NEUTROPHILS - ABS (CELLAVISION)(BEAKER) (test wcza=0728) 14.67 K/ul 1.56-6.13 LYMPHOCYTES - ABS (CELLAVISION)(BEAKER) (test xpro=8056) 1.47 K/ul 1.18-3.74 MONOCYTES - ABS (CELLAVISION)(BEAKER) (test lbsp=6945) 0.16 K/uL 0.24-0.36 TOTAL COUNTED (BEAKER) (test hayn=2365) 100 MANUAL NRBC PER 100 CELLS (BEAKER) (test lbdm=5326) 1 /100 WBC 0-0 WBC MORPHOLOGY (BEAKER) (test xqsb=019) Normal GIANT PLATELETS (BEAKER) (test nkmm=725) Present POLYCHROMATOPHILLIC RBCS(BEAKER) (test vyjb=141) 3+ many HYPOCHROMIA (BEAKER) (test cndu=095) 1+ few ANISOCYTOSIS (BEAKER) (test nuvn=293) 2+ moderate MICROCYTES (BEAKER) (test eztc=159) 2+ moderate POIKILOCYTES (BEAKER) (test pigg=401) 2+ moderate TARGET CELLS (BEAKER) (test hqwy=827) 1+ few SICKLE CELLS (BEAKER) (test jcgn=009) 1+ few TEAR DROP CELLS (BEAKER) (test jpaw=669) 1+ few ARTIFACT (CELLAVISION)(BEAKER) (test xxkn=9029) Present PLATELET CONCENTRATION (CELLAVISION)(BEAKER) (test mqjw=1011) Adequate Received comment: User comments: Slide comments: BASIC METABOLIC [id number] 15:10:00* Test Item Value Reference Range Comments SODIUM (BEAKER) (test nagw=321) 144 meq/L 136-145 POTASSIUM (BEAKER) (test tmhl=908) 4.1 meq/L 3.5-5.1 CHLORIDE (BEAKER) (test vhzt=658) 111 meq/L 98-107 CO2 (BEAKER) (test iomp=278) 25 meq/L 22-29 BLOOD UREA NITROGEN (BEAKER) (test vzgy=991) 10 mg/dL 7-21 CREATININE (BEAKER) (test qvfs=592) 0.55 mg/dL 0.57-1.25 GLUCOSE RANDOM (BEAKER) (test aowl=916) 95 mg/dL 70-105 CALCIUM (BEAKER) (test jokf=228) 9.3 mg/dL 8.4-10.2 EGFR (BEAKER) (test sfoa=9920) 168 mL/min/1.73 sq m ESTIMATED GFR IS NOT ACCURATE CREATININE CLEARANCE IN PREDICTING GLOMERULAR FILTRATION RATE. ESTIMATED GFR IS NOT APPLICABLE FOR DIALYSIS PATIENTS. RETICULOCYTE [id number] 15:09:00* Test Item Value Reference Range Comments RETICULOCYTE COUNT PCT (BEAKER) (test elnp=362) 5.8 % 0.5-1.7 BLOOD [id number] 19:00:00* Test Item Value Reference Range Comments CULTURE (BEAKER) (test hmqx=8677) No growth in 5 days BASIC METABOLIC [id number] 06:14:00* Test Item Value Reference Range Comments SODIUM (BEAKER) (test ruds=319) 141 meq/L 136-145 POTASSIUM (BEAKER) (test bjoj=252) 4.0 meq/L 3.5-5.1 CHLORIDE (BEAKER) (test udpm=420) 105 meq/L 98-107 CO2 (BEAKER) (test uoyx=902) 29 meq/L 22-29 BLOOD UREA NITROGEN (BEAKER) (test kmnn=229) 4 mg/dL 7-21 CREATININE (BEAKER) (test bdod=923) 0.55 mg/dL 0.57-1.25 GLUCOSE RANDOM (BEAKER) (test tqbf=332) 92 mg/dL 70-105 CALCIUM (BEAKER) (test uyxl=185) 9.7 mg/dL 8.4-10.2 EGFR (BEAKER) (test nhlq=2732) 168 mL/min/1.73 sq m ESTIMATED GFR IS NOT ACCURATE CREATININE CLEARANCE IN PREDICTING GLOMERULAR FILTRATION RATE. ESTIMATED GFR IS NOT APPLICABLE FOR DIALYSIS PATIENTS. CBC W/PLT COUNT & AUTO [id number] 06:08:00* Test Item Value Reference Range Comments WHITE BLOOD CELL COUNT (BEAKER) (test ffod=132) 7.7 K/ L 3.5-10.5 RED BLOOD CELL COUNT (BEAKER) (test fdih=519) 3.54 M/ L 3.93-5.22 HEMOGLOBIN (BEAKER) (test afov=267) 8.6 GM/DL 11.2-15.7 HEMATOCRIT (BEAKER) (test tspk=605) 27.2 % 34.1-44.9 MEAN CORPUSCULAR VOLUME (BEAKER) (test dwey=480) 76.8 fL 79.4-94.8 MEAN CORPUSCULAR HEMOGLOBIN (BEAKER) (test iole=366) 24.3 pg 25.6-32.2 MEAN CORPUSCULAR HEMOGLOBIN CONC (BEAKER) (test lyqw=312) 31.6 GM/DL 32.2-35.5 RED CELL DISTRIBUTION WIDTH (BEAKER) (test qvry=204) 18.8 % 11.7-14.4 PLATELET COUNT (BEAKER) (test kgmg=107) 249 K/CU MM 150-450 MEAN PLATELET VOLUME (BEAKER) (test xmsj=343) 10.2 fL 9.4-12.3 NUCLEATED RED BLOOD CELLS (BEAKER) (test yiux=665) 1 /100 WBC 0-0 NEUTROPHILS RELATIVE PERCENT (BEAKER) (test aozb=562) 55 % LYMPHOCYTES RELATIVE PERCENT (BEAKER) (test pkjw=485) 29 % MONOCYTES RELATIVE PERCENT (BEAKER) (test xzth=382) 10 % EOSINOPHILS RELATIVE PERCENT (BEAKER) (test mklv=113) 5 % BASOPHILS RELATIVE PERCENT (BEAKER) (test elyo=739) 1 % NEUTROPHILS ABSOLUTE COUNT (BEAKER) (test wgqh=805) 4.24 K/ L 1.56-6.13 LYMPHOCYTES ABSOLUTE COUNT (BEAKER) (test zjpa=780) 2.19 K/ L 1.18-3.74 MONOCYTES ABSOLUTE COUNT (BEAKER) (test yddp=455) 0.76 K/ L 0.24-0.36 EOSINOPHILS ABSOLUTE COUNT (BEAKER) (test gqum=642) 0.37 K/ L 0.04-0.36 BASOPHILS ABSOLUTE COUNT (BEAKER) (test uqvd=138) 0.08 K/ L 0.01-0.08 IMMATURE GRANULOCYTES-RELATIVE PERCENT (BEAKER) (test errd=6483) 0 % 0-1 CBC W/PLT COUNT & AUTO [id number] 06:00:00* Test Item Value Reference Range Comments WHITE BLOOD CELL COUNT (BEAKER) (test chfs=697) 8.0 K/ L 3.5-10.5 RED BLOOD CELL COUNT (BEAKER) (test hxqt=514) 2.67 M/ L 3.93-5.22 HEMOGLOBIN (BEAKER) (test bcio=847) 6.0 GM/DL 11.2-15.7 HEMATOCRIT (BEAKER) (test lwfj=385) 19.4 % 34.1-44.9 MEAN CORPUSCULAR VOLUME (BEAKER) (test usna=593) 72.7 fL 79.4-94.8 MEAN CORPUSCULAR HEMOGLOBIN (BEAKER) (test ibhv=010) 22.5 pg 25.6-32.2 MEAN CORPUSCULAR HEMOGLOBIN CONC (BEAKER) (test lvsj=833) 30.9 GM/DL 32.2-35.5 RED CELL DISTRIBUTION WIDTH (BEAKER) (test odbe=079) 17.2 % 11.7-14.4 PLATELET COUNT (BEAKER) (test ghfy=294) 229 K/CU MM 150-450 MEAN PLATELET VOLUME (BEAKER) (test wlie=580) 9.4 fL 9.4-12.3 NUCLEATED RED BLOOD CELLS (BEAKER) (test jheg=356) 1 /100 WBC 0-0 NEUTROPHILS RELATIVE PERCENT (BEAKER) (test ebum=277) 52 % LYMPHOCYTES RELATIVE PERCENT (BEAKER) (test lbej=680) 33 % MONOCYTES RELATIVE PERCENT (BEAKER) (test praf=352) 9 % EOSINOPHILS RELATIVE PERCENT (BEAKER) (test czez=848) 5 % BASOPHILS RELATIVE PERCENT (BEAKER) (test ukay=370) 1 % NEUTROPHILS ABSOLUTE COUNT (BEAKER) (test jkdr=223) 4.12 K/ L 1.56-6.13 LYMPHOCYTES ABSOLUTE COUNT (BEAKER) (test wios=101) 2.64 K/ L 1.18-3.74 MONOCYTES ABSOLUTE COUNT (BEAKER) (test fnbg=682) 0.74 K/ L 0.24-0.36 EOSINOPHILS ABSOLUTE COUNT (BEAKER) (test xaxv=471) 0.39 K/ L 0.04-0.36 BASOPHILS ABSOLUTE COUNT (BEAKER) (test otgk=788) 0.05 K/ L 0.01-0.08 IMMATURE GRANULOCYTES-RELATIVE PERCENT (BEAKER) (test qkwz=0255) 0 % 0-1 BASIC METABOLIC [id number] 05:59:00* Test Item Value Reference Range Comments SODIUM (BEAKER) (test jcet=824) 139 meq/L 136-145 POTASSIUM (BEAKER) (test dntm=163) 3.9 meq/L 3.5-5.1 CHLORIDE (BEAKER) (test zwce=751) 105 meq/L 98-107 CO2 (BEAKER) (test mrpy=733) 28 meq/L 22-29 BLOOD UREA NITROGEN (BEAKER) (test bboh=969) 3 mg/dL 7-21 CREATININE (BEAKER) (test sxhj=500) 0.51 mg/dL 0.57-1.25 GLUCOSE RANDOM (BEAKER) (test vinw=639) 96 mg/dL 70-105 CALCIUM (BEAKER) (test oqkv=027) 9.0 mg/dL 8.4-10.2 EGFR (BEAKER) (test kvza=7774) 183 mL/min/1.73 sq m ESTIMATED GFR IS NOT ACCURATE CREATININE CLEARANCE IN PREDICTING GLOMERULAR FILTRATION RATE. ESTIMATED GFR IS NOT APPLICABLE FOR DIALYSIS PATIENTS. CBC W/PLT COUNT & AUTO [id number] 07:11:00* Test Item Value Reference Range Comments WHITE BLOOD CELL COUNT (BEAKER) (test coou=373) 7.8 K/ L 3.5-10.5 RED BLOOD CELL COUNT (BEAKER) (test bnoj=142) 2.64 M/ L 3.93-5.22 HEMOGLOBIN (BEAKER) (test thpp=440) 5.9 GM/DL 11.2-15.7 HEMATOCRIT (BEAKER) (test ujfc=143) 19.4 % 34.1-44.9 MEAN CORPUSCULAR VOLUME (BEAKER) (test zxyp=370) 73.5 fL 79.4-94.8 MEAN CORPUSCULAR HEMOGLOBIN (BEAKER) (test egqt=873) 22.3 pg 25.6-32.2 MEAN CORPUSCULAR HEMOGLOBIN CONC (BEAKER) (test ahjt=917) 30.4 GM/DL 32.2-35.5 RED CELL DISTRIBUTION WIDTH (BEAKER) (test dwdu=889) 17.1 % 11.7-14.4 PLATELET COUNT (BEAKER) (test mubt=706) 185 K/CU MM 150-450 MEAN PLATELET VOLUME (BEAKER) (test niqv=239) 10.1 fL 9.4-12.3 NUCLEATED RED BLOOD CELLS (BEAKER) (test pzub=439) 2 /100 WBC 0-0 NEUTROPHILS RELATIVE PERCENT (BEAKER) (test pejl=558) 57 % LYMPHOCYTES RELATIVE PERCENT (BEAKER) (test vljr=173) 26 % MONOCYTES RELATIVE PERCENT (BEAKER) (test sbcn=532) 11 % EOSINOPHILS RELATIVE PERCENT (BEAKER) (test fdri=635) 6 % BASOPHILS RELATIVE PERCENT (BEAKER) (test qsvl=142) 1 % NEUTROPHILS ABSOLUTE COUNT (BEAKER) (test tbxb=275) 4.43 K/ L 1.56-6.13 LYMPHOCYTES ABSOLUTE COUNT (BEAKER) (test qhwq=261) 2.06 K/ L 1.18-3.74 MONOCYTES ABSOLUTE COUNT (BEAKER) (test ynlu=710) 0.84 K/ L 0.24-0.36 EOSINOPHILS ABSOLUTE COUNT (BEAKER) (test ygst=250) 0.44 K/ L 0.04-0.36 BASOPHILS ABSOLUTE COUNT (BEAKER) (test jwmv=234) 0.04 K/ L 0.01-0.08 IMMATURE GRANULOCYTES-RELATIVE PERCENT (BEAKER) (test rnum=1111) 0 % 0-1 BASIC METABOLIC [id number] 07:03:00* Test Item Value Reference Range Comments SODIUM (BEAKER) (test uvqz=646) 140 meq/L 136-145 POTASSIUM (BEAKER) (test hgbe=878) 3.6 meq/L 3.5-5.1 CHLORIDE (BEAKER) (test bjwt=802) 106 meq/L 98-107 CO2 (BEAKER) (test cwov=367) 27 meq/L 22-29 BLOOD UREA NITROGEN (BEAKER) (test klep=418) 3 mg/dL 7-21 CREATININE (BEAKER) (test lkjw=697) 0.53 mg/dL 0.57-1.25 GLUCOSE RANDOM (BEAKER) (test dmyj=927) 97 mg/dL 70-105 CALCIUM (BEAKER) (test wqft=537) 9.4 mg/dL 8.4-10.2 EGFR (BEAKER) (test ifwu=4817) 175 mL/min/1.73 sq m ESTIMATED GFR IS NOT ACCURATE CREATININE CLEARANCE IN PREDICTING GLOMERULAR FILTRATION RATE. ESTIMATED GFR IS NOT APPLICABLE FOR DIALYSIS PATIENTS. EBV VIRAL [id number] 16:03:00* Test Item Value Reference Range Comments EBV VIRAL LOAD - NEGATIVE (BEAKER) (test zezr=1268) Negative or below the linear range of the assay (<500 copies/mL) This assay was performed by real-time PCR for the detection of the Haleigh-Heaton virus (EBV) gene EBNA-1. The test is composed of (1) DNA extraction from patien t specimen, and (2) real-time PCR amplification and detection with BYUM-1-ywcboe ic primers and probes. A well-conserved region of the EBNA-1 gene is targeted, a long with an internal control sequence used to confirm PCR amplification. Asympt omatic carriers and viral genetic variation, among other factors, can affect the accuracy of nucleic acid testing; therefore, results should be interpreted in l ight of clinical data.This test was developed and its performance characteristic s determined by the [facility] Pathology Department, Section of chastity Pathology. It has not been cleared or approved by the U.S. Food and Edmar g Administration (FDA), since FDA approval is not required for clinical use of t he test. Validation was done as required by The Clinical Laboratory Improvement Amendments of 1988.URINE [id number] 10:17:00* Test Item Value Reference Range Comments CULTURE (BEAKER) (test goln=7696) 50-59,000 col/mL skin lola [id number] 05:53:00* Test Item Value Reference Range Comments MAGNESIUM (BEAKER) (test qjnh=286) 2.3 mg/dL 1.6-2.6 BASIC METABOLIC [id number] 05:53:00* Test Item Value Reference Range Comments SODIUM (BEAKER) (test hygb=220) 139 meq/L 136-145 POTASSIUM (BEAKER) (test txts=355) 3.7 meq/L 3.5-5.1 CHLORIDE (BEAKER) (test surg=864) 105 meq/L 98-107 CO2 (BEAKER) (test nbca=949) 28 meq/L 22-29 BLOOD UREA NITROGEN (BEAKER) (test mmxz=029) 4 mg/dL 7-21 CREATININE (BEAKER) (test ptsd=457) 0.51 mg/dL 0.57-1.25 GLUCOSE RANDOM (BEAKER) (test lwox=230) 93 mg/dL 70-105 CALCIUM (BEAKER) (test tchx=128) 9.0 mg/dL 8.4-10.2 EGFR (BEAKER) (test xeds=4392) 183 mL/min/1.73 sq m ESTIMATED GFR IS NOT ACCURATE CREATININE CLEARANCE IN PREDICTING GLOMERULAR FILTRATION RATE. ESTIMATED GFR IS NOT APPLICABLE FOR DIALYSIS PATIENTS. HEPATIC FUNCTION [id number] 05:53:00* Test Item Value Reference Range Comments TOTAL PROTEIN (BEAKER) (test hncd=649) 6.3 gm/dL 6.0-8.3 ALBUMIN (BEAKER) (test zmsy=4629) 3.8 g/dL 3.5-5.0 BILIRUBIN TOTAL (BEAKER) (test qdiq=481) 1.7 mg/dL 0.2-1.2 BILIRUBIN DIRECT (BEAKER) (test gncg=524) 0.7 mg/dL 0.1-0.5 ALKALINE PHOSPHATASE (BEAKER) (test dlgj=539) 57 U/L 40-150 AST (SGOT) (BEAKER) (test heia=603) 18 U/L 5-34 ALT (SGPT) (BEAKER) (test trvp=167) 13 U/L 6-55 [id number] 05:53:00* Test Item Value Reference Range Comments LIPASE (BEAKER) (test cbhh=695) 5 U/L 8-78 CBC W/PLT COUNT & AUTO [id number] 05:42:00* Test Item Value Reference Range Comments WHITE BLOOD CELL COUNT (BEAKER) (test ppqs=040) 9.4 K/ L 3.5-10.5 RED BLOOD CELL COUNT (BEAKER) (test wcxu=879) 2.66 M/ L 3.93-5.22 HEMOGLOBIN (BEAKER) (test psqc=243) 6.2 GM/DL 11.2-15.7 HEMATOCRIT (BEAKER) (test ajws=939) 19.8 % 34.1-44.9 MEAN CORPUSCULAR VOLUME (BEAKER) (test lteu=533) 74.4 fL 79.4-94.8 MEAN CORPUSCULAR HEMOGLOBIN (BEAKER) (test xzmp=923) 23.3 pg 25.6-32.2 MEAN CORPUSCULAR HEMOGLOBIN CONC (BEAKER) (test tynv=224) 31.3 GM/DL 32.2-35.5 RED CELL DISTRIBUTION WIDTH (BEAKER) (test pzzg=106) 17.4 % 11.7-14.4 PLATELET COUNT (BEAKER) (test ktyb=570) 161 K/CU MM 150-450 MEAN PLATELET VOLUME (BEAKER) (test wvro=800) 9.8 fL 9.4-12.3 NUCLEATED RED BLOOD CELLS (BEAKER) (test xgaj=197) 2 /100 WBC 0-0 NEUTROPHILS RELATIVE PERCENT (BEAKER) (test sqql=132) 67 % LYMPHOCYTES RELATIVE PERCENT (BEAKER) (test ipuu=138) 16 % MONOCYTES RELATIVE PERCENT (BEAKER) (test jsog=449) 12 % EOSINOPHILS RELATIVE PERCENT (BEAKER) (test tuci=741) 4 % BASOPHILS RELATIVE PERCENT (BEAKER) (test klkx=906) 0 % NEUTROPHILS ABSOLUTE COUNT (BEAKER) (test wzkk=203) 6.26 K/ L 1.56-6.13 LYMPHOCYTES ABSOLUTE COUNT (BEAKER) (test tvmb=234) 1.50 K/ L 1.18-3.74 MONOCYTES ABSOLUTE COUNT (BEAKER) (test hpks=323) 1.17 K/ L 0.24-0.36 EOSINOPHILS ABSOLUTE COUNT (BEAKER) (test tupz=373) 0.39 K/ L 0.04-0.36 BASOPHILS ABSOLUTE COUNT (BEAKER) (test esys=925) 0.02 K/ L 0.01-0.08 IMMATURE GRANULOCYTES-RELATIVE PERCENT (BEAKER) (test otgc=7170) 1 % 0-1 CT, CHEST, WITHOUT [id number] 09:20:00FINAL REPORT CT Chest without contrast History: Sickle cell pain crisis Comparison: 12/26/2017 Technique: serial axial imaging was performed without intravenous contrast as per departmental protocol. Multiplanar images are reconstructed and reviewed when indicated. This CT examination is performed using one or more of the following dose reduction techniques: Automated exposure control, adjustment of the mA and /or kV according to patient size, and/or use of iterative reconstruction technique. Findings:No mediastinal lymphadenopathy. No definite hilar enlargement. Normal size heart. No pericardial effusion. No thoracic aortic aneurysm. Normal caliber of main pulmonary trunk. Patent central airways. No pleural effusion or pneumothorax. Patient respiratory motion limits evaluation of the pulmonary parenchyma. The bilateral lower lobes demonstrate subsegmental atelectasis, but are otherwise clear. No significant findings in the partially imaged abdomen. No aggressive osseous lesion. "H-S haped" thoracic vertebral bodies, consistent with underlying sickle cell disease . Impression:1. The bilateral lower lobes demonstrate probable areas of subsegme ntal atelectasis. The lungs are otherwise clear.2. "H-shaped" thoracic vertebra l bodies, consistent with underlying sickle cell disease. Signed: Cuong [place] Verified Date/Time: 12/06/2018 09:20:33 Reading Location: [facility] Reading Room - [place] [address] [id number] 06:07:00* Test Item Value Reference Range Comments MAGNESIUM (BEAKER) (test thrc=802) 2.0 mg/dL 1.6-2.6 BASIC METABOLIC [id number] 06:07:00* Test Item Value Reference Range Comments SODIUM (BEAKER) (test ullq=306) 140 meq/L 136-145 POTASSIUM (BEAKER) (test ypcc=109) 3.8 meq/L 3.5-5.1 CHLORIDE (BEAKER) (test nxev=685) 106 meq/L 98-107 CO2 (BEAKER) (test ytuf=295) 26 meq/L 22-29 BLOOD UREA NITROGEN (BEAKER) (test lasa=850) 6 mg/dL 7-21 CREATININE (BEAKER) (test tegx=266) 0.59 mg/dL 0.57-1.25 GLUCOSE RANDOM (BEAKER) (test rklh=010) 93 mg/dL 70-105 CALCIUM (BEAKER) (test qama=047) 9.1 mg/dL 8.4-10.2 EGFR (BEAKER) (test tens=4075) 154 mL/min/1.73 sq m ESTIMATED GFR IS NOT ACCURATE CREATININE CLEARANCE IN PREDICTING GLOMERULAR FILTRATION RATE. ESTIMATED GFR IS NOT APPLICABLE FOR DIALYSIS PATIENTS. CBC W/PLT COUNT & AUTO [id number] 05:53:00* Test Item Value Reference Range Comments WHITE BLOOD CELL COUNT (BEAKER) (test lzpd=853) 12.6 K/ L 3.5-10.5 RED BLOOD CELL COUNT (BEAKER) (test xndk=949) 2.94 M/ L 3.93-5.22 HEMOGLOBIN (BEAKER) (test fiil=972) 6.9 GM/DL 11.2-15.7 HEMATOCRIT (BEAKER) (test tzsd=041) 22.1 % 34.1-44.9 MEAN CORPUSCULAR VOLUME (BEAKER) (test zflb=165) 75.2 fL 79.4-94.8 MEAN CORPUSCULAR HEMOGLOBIN (BEAKER) (test wlhr=177) 23.5 pg 25.6-32.2 MEAN CORPUSCULAR HEMOGLOBIN CONC (BEAKER) (test fykm=978) 31.2 GM/DL 32.2-35.5 RED CELL DISTRIBUTION WIDTH (BEAKER) (test xabf=128) 18.4 % 11.7-14.4 PLATELET COUNT (BEAKER) (test dbvh=054) 186 K/CU MM 150-450 MEAN PLATELET VOLUME (BEAKER) (test xvla=047) 10.8 fL 9.4-12.3 NUCLEATED RED BLOOD CELLS (BEAKER) (test keru=985) 4 /100 WBC 0-0 NEUTROPHILS RELATIVE PERCENT (BEAKER) (test xlzx=719) 71 % LYMPHOCYTES RELATIVE PERCENT (BEAKER) (test hhwa=229) 16 % MONOCYTES RELATIVE PERCENT (BEAKER) (test lgdg=001) 11 % EOSINOPHILS RELATIVE PERCENT (BEAKER) (test uqvq=397) 1 % BASOPHILS RELATIVE PERCENT (BEAKER) (test wcav=076) 0 % NEUTROPHILS ABSOLUTE COUNT (BEAKER) (test liul=024) 8.98 K/ L 1.56-6.13 LYMPHOCYTES ABSOLUTE COUNT (BEAKER) (test ewwx=891) 2.03 K/ L 1.18-3.74 MONOCYTES ABSOLUTE COUNT (BEAKER) (test izmq=421) 1.32 K/ L 0.24-0.36 EOSINOPHILS ABSOLUTE COUNT (BEAKER) (test efmj=638) 0.16 K/ L 0.04-0.36 BASOPHILS ABSOLUTE COUNT (BEAKER) (test ijbs=665) 0.03 K/ L 0.01-0.08 IMMATURE GRANULOCYTES-RELATIVE PERCENT (BEAKER) (test jpcp=4488) 1 % 0-1 CBC W/PLT COUNT & AUTO [id number] 12:29:00* Test Item Value Reference Range Comments WHITE BLOOD CELL COUNT (BEAKER) (test wfae=248) 19.7 K/ L 3.5-10.5 RED BLOOD CELL COUNT (BEAKER) (test errg=060) 3.30 M/ L 3.93-5.22 HEMOGLOBIN (BEAKER) (test awwi=672) 7.6 GM/DL 11.2-15.7 HEMATOCRIT (BEAKER) (test kgpq=440) 24.2 % 34.1-44.9 MEAN CORPUSCULAR VOLUME (BEAKER) (test lpma=805) 73.3 fL 79.4-94.8 MEAN CORPUSCULAR HEMOGLOBIN (BEAKER) (test udtv=984) 23.0 pg 25.6-32.2 MEAN CORPUSCULAR HEMOGLOBIN CONC (BEAKER) (test ikum=832) 31.4 GM/DL 32.2-35.5 RED CELL DISTRIBUTION WIDTH (BEAKER) (test oysq=397) 19.0 % 11.7-14.4 PLATELET COUNT (BEAKER) (test cyhm=913) 203 K/CU MM 150-450 MEAN PLATELET VOLUME (BEAKER) (test ettu=084) 9.6 fL 9.4-12.3 NUCLEATED RED BLOOD CELLS (BEAKER) (test yaat=559) 6 /100 WBC 0-0 (CELLAVISION MANUAL DIFF)2018-12-05 12:29:00* Test Item Value Reference Range Comments NEUTROPHILS - REL (CELLAVISION)(BEAKER) (test jqar=3615) 83 % LYMPHOCYTES - REL (CELLAVISION)(BEAKER) (test ylmx=5087) 11 % MONOCYTES - REL (CELLAVISION)(BEAKER) (test hhbi=6399) 5 % MYELOCYTES - REL (CELLAVISION)(BEAKER) (test zufi=4828) 1 % 0-0 NEUTROPHILS - ABS (CELLAVISION)(BEAKER) (test pbmv=6707) 16.35 K/ul 1.56-6.13 LYMPHOCYTES - ABS (CELLAVISION)(BEAKER) (test vnav=5483) 2.17 K/ul 1.18-3.74 MONOCYTES - ABS (CELLAVISION)(BEAKER) (test fhzy=9185) 0.99 K/uL 0.24-0.36 MYELOCYTES-ABS (CELLAVISION)(BEAKER) (test iaat=6709) 0.20 K/uL 0.00-0.00 TOTAL COUNTED (BEAKER) (test qjgj=6707) 100 MANUAL NRBC PER 100 CELLS (BEAKER) (test ckzj=8841) 4 /100 WBC 0-0 SMUDGE CELLS (BEAKER) (test kuxs=1576) Present GIANT PLATELETS (BEAKER) (test wuew=102) Present POLYCHROMATOPHILLIC RBCS(BEAKER) (test zzya=534) 2+ moderate ANISOCYTOSIS (BEAKER) (test rhzn=856) 2+ moderate MICROCYTES (BEAKER) (test lwmy=613) 2+ moderate POIKILOCYTES (BEAKER) (test nnxy=342) 1+ few SCHISTOCYTES (BEAKER) (test euvd=603) 2+ moderate SICKLE CELLS (BEAKER) (test jryg=162) 1+ few ARTIFACT (CELLAVISION)(BEAKER) (test kgky=3519) Present HELMET CELLS (CELLAVISION)(BEAKER) (test mvtb=3900) 1+ few PLATELET CONCENTRATION (CELLAVISION)(BEAKER) (test ydby=7936) Adequate Received comment: User comments: Slide comments: [id number] 06:25:00* Test Item Value Reference Range Comments MAGNESIUM (BEAKER) (test dhma=520) 2.2 mg/dL 1.6-2.6 Specimen slightly hemolyzed BASIC METABOLIC [id number] 06:25:00* Test Item Value Reference Range Comments SODIUM (BEAKER) (test jody=718) 139 meq/L 136-145 POTASSIUM (BEAKER) (test elep=724) 3.9 meq/L 3.5-5.1 Specimen slightly hemolyzed CHLORIDE (BEAKER) (test atgo=241) 106 meq/L 98-107 CO2 (BEAKER) (test ajtn=419) 23 meq/L 22-29 BLOOD UREA NITROGEN (BEAKER) (test esaf=653) 5 mg/dL 7-21 CREATININE (BEAKER) (test obwq=296) 0.51 mg/dL 0.57-1.25 Specimen slightly hemolyzed GLUCOSE RANDOM (BEAKER) (test dkjg=432) 103 mg/dL 70-105 CALCIUM (BEAKER) (test ynzd=145) 9.1 mg/dL 8.4-10.2 EGFR (BEAKER) (test neat=3517) 183 mL/min/1.73 sq m ESTIMATED GFR IS NOT ACCURATE CREATININE CLEARANCE IN PREDICTING GLOMERULAR FILTRATION RATE. ESTIMATED GFR IS NOT APPLICABLE FOR DIALYSIS PATIENTS. URINALYSIS W/ REFLEX URINE [id number] 11:49:00* Test Item Value Reference Range Comments COLOR (BEAKER) (test uync=211) Light Yellow CLARITY (BEAKER) (test qcpt=102) Clear SPECIFIC GRAVITY UA (BEAKER) (test izsa=783) 1.010 1.001-1.035 PH UA (BEAKER) (test ypdi=662) 5.5 5.0-8.0 PROTEIN UA (BEAKER) (test mdht=518) Negative Negative GLUCOSE UA (BEAKER) (test qjvw=233) Negative Negative KETONES UA (BEAKER) (test kggh=820) Negative Negative BILIRUBIN UA (BEAKER) (test khjd=293) Negative Negative BLOOD UA (BEAKER) (test ryyd=565) Small Negative NITRITE UA (BEAKER) (test njye=670) Negative Negative LEUKOCYTE ESTERASE UA (BEAKER) (test rogt=903) Negative Negative UROBILINOGEN UA (BEAKER) (test uvmy=609) 0.2 mg/dL 0.2-1.0 RBC UA (BEAKER) (test cviv=021) < /HPF WBC UA (BEAKER) (test ueyp=029) 7 /HPF BACTERIA (BEAKER) (test eeko=323) Rare MUCUS (BEAKER) (test pqne=5359) Occasional SQUAMOUS EPITHELIAL (BEAKER) (test eqzm=538) 3 /HPF HYALINE CASTS (BEAKER) (test rgsr=334) 1 /LPF SOURCE(BEAKER) (test qxkx=5191) RAD, CHEST, 1 VIEW, NON [id number] 10:30:00Reason for exam:->SICKLE CELL PAIN CRISISShould this be performed at the bedside?->YesFINAL REPORT AP view of the chest dated 12/04/2018 CLINICAL INFORMATION: SICKLE CELL PAIN CRISIS Comment: Heart is normal in size. Pulmonary vasculature is unremarkable. Subsegmental atelectasis is seen in both lung bases. The rest of the lungs are clear. No pulmonary infiltrate or pleural effusion is present. Impression: Bibasilar subsegmental atelectasis. Signed: Nella, Ximena MDReport Verified Date/Time: 12/04/2018 10:30:30 Reading Location: [facility] Radiology Reading Room C METABOLIC [id number] 10:09:00* Test Item Value Reference Range Comments SODIUM (BEAKER) (test kyqc=586) 143 meq/L 136-145 POTASSIUM (BEAKER) (test seck=938) 4.3 meq/L 3.5-5.1 CHLORIDE (BEAKER) (test ykud=901) 114 meq/L 98-107 CO2 (BEAKER) (test qyed=022) 23 meq/L 22-29 BLOOD UREA NITROGEN (BEAKER) (test jxiq=927) 4 mg/dL 7-21 CREATININE (BEAKER) (test juiq=681) 0.62 mg/dL 0.57-1.25 GLUCOSE RANDOM (BEAKER) (test nrga=478) 91 mg/dL 70-105 CALCIUM (BEAKER) (test wvlp=428) 9.1 mg/dL 8.4-10.2 EGFR (BEAKER) (test ppde=2408) 146 mL/min/1.73 sq m ESTIMATED GFR IS NOT ACCURATE CREATININE CLEARANCE IN PREDICTING GLOMERULAR FILTRATION RATE. ESTIMATED GFR IS NOT APPLICABLE FOR DIALYSIS PATIENTS. CBC W/PLT COUNT & AUTO [id number] 09:51:00* Test Item Value Reference Range Comments WHITE BLOOD CELL COUNT (BEAKER) (test mwuk=664) 11.6 K/ L 3.5-10.5 RED BLOOD CELL COUNT (BEAKER) (test lcvq=566) 3.30 M/ L 3.93-5.22 HEMOGLOBIN (BEAKER) (test rgio=747) 7.7 GM/DL 11.2-15.7 HEMATOCRIT (BEAKER) (test zoya=482) 24.6 % 34.1-44.9 MEAN CORPUSCULAR VOLUME (BEAKER) (test qryi=453) 74.5 fL 79.4-94.8 MEAN CORPUSCULAR HEMOGLOBIN (BEAKER) (test frig=280) 23.3 pg 25.6-32.2 MEAN CORPUSCULAR HEMOGLOBIN CONC (BEAKER) (test bdtl=902) 31.3 GM/DL 32.2-35.5 RED CELL DISTRIBUTION WIDTH (BEAKER) (test jjzu=437) 18.8 % 11.7-14.4 PLATELET COUNT (BEAKER) (test ltuc=771) 237 K/CU MM 150-450 MEAN PLATELET VOLUME (BEAKER) (test ndxx=859) 9.9 fL 9.4-12.3 NUCLEATED RED BLOOD CELLS (BEAKER) (test jgha=691) 2 /100 WBC 0-0 NEUTROPHILS RELATIVE PERCENT (BEAKER) (test jvfc=971) 57 % LYMPHOCYTES RELATIVE PERCENT (BEAKER) (test udlb=533) 28 % MONOCYTES RELATIVE PERCENT (BEAKER) (test nuca=593) 9 % EOSINOPHILS RELATIVE PERCENT (BEAKER) (test qupd=962) 2 % BASOPHILS RELATIVE PERCENT (BEAKER) (test tbpp=690) 1 % NEUTROPHILS ABSOLUTE COUNT (BEAKER) (test fmdt=786) 6.61 K/ L 1.56-6.13 LYMPHOCYTES ABSOLUTE COUNT (BEAKER) (test smsy=004) 3.26 K/ L 1.18-3.74 MONOCYTES ABSOLUTE COUNT (BEAKER) (test knhh=211) 1.07 K/ L 0.24-0.36 EOSINOPHILS ABSOLUTE COUNT (BEAKER) (test ulkj=139) 0.23 K/ L 0.04-0.36 BASOPHILS ABSOLUTE COUNT (BEAKER) (test tqhk=930) 0.14 K/ L 0.01-0.08 IMMATURE GRANULOCYTES-RELATIVE PERCENT (BEAKER) (test picy=1882) 3 % 0-1 RETICULOCYTE [id number] 09:51:00* Test Item Value Reference Range Comments RETICULOCYTE COUNT PCT (BEAKER) (test mhoa=123) 8.7 % 0.5-1.7 RAD, CHEST, 2 [id number] 02:40:00Reason for exam:->SICKLE CELL PAIN CRISIS FINAL REPORT Exam: Chest x-ray, PA and lateral views Clin ical History: Sickle cell pain crisis. Comparison: Chest radiograph 10/28/2018. Luther shah: Frontal and lateral views of the chest were obtained. Findings: The car diomediastinal contours are normal. There is linear atelectasis/scarring in the left lower lobe. There is no focal pulmonary consolidation, pleural effusion or pneumothorax. There is no pulmonary edema. There are bony changes of sickle cell disease. Impression: Left lower lobe linear atelectasis/scarring. No focal pulm onary consolidation. Signed: Pietro Turpin Verified Date/Time: 02:40:10 Reading Location: [facility] B1 C013Y CT Body Reading Room Electronical ly signed by: PIETRO TURPIN MD on 12/04/2018 02:40 AM BASIC METABOLIC [id number] 02:18:00* Test Item Value Reference Range Comments SODIUM (BEAKER) (test dgcs=067) 145 meq/L 136-145 POTASSIUM (BEAKER) (test jaak=766) 4.1 meq/L 3.5-5.1 CHLORIDE (BEAKER) (test sfxg=287) 114 meq/L 98-107 CO2 (BEAKER) (test obzr=008) 23 meq/L 22-29 BLOOD UREA NITROGEN (BEAKER) (test sujy=473) 5 mg/dL 7-21 CREATININE (BEAKER) (test cqyr=438) 0.61 mg/dL 0.57-1.25 GLUCOSE RANDOM (BEAKER) (test gkes=654) 101 mg/dL 70-105 CALCIUM (BEAKER) (test hhsg=618) 9.2 mg/dL 8.4-10.2 EGFR (BEAKER) (test eutu=8432) 149 mL/min/1.73 sq m ESTIMATED GFR IS NOT ACCURATE CREATININE CLEARANCE IN PREDICTING GLOMERULAR FILTRATION RATE. ESTIMATED GFR IS NOT APPLICABLE FOR DIALYSIS PATIENTS. RETICULOCYTE [id number] 02:02:00* Test Item Value Reference Range Comments RETICULOCYTE COUNT PCT (BEAKER) (test ivuw=202) 8.3 % 0.5-1.7 CBC W/PLT COUNT & AUTO [id number] 02:02:00* Test Item Value Reference Range Comments WHITE BLOOD CELL COUNT (BEAKER) (test tiks=348) 10.5 K/ L 3.5-10.5 RED BLOOD CELL COUNT (BEAKER) (test zpqp=415) 3.16 M/ L 3.93-5.22 HEMOGLOBIN (BEAKER) (test elpn=784) 7.4 GM/DL 11.2-15.7 HEMATOCRIT (BEAKER) (test gbxn=527) 22.9 % 34.1-44.9 MEAN CORPUSCULAR VOLUME (BEAKER) (test hryv=240) 72.5 fL 79.4-94.8 MEAN CORPUSCULAR HEMOGLOBIN (BEAKER) (test tuox=268) 23.4 pg 25.6-32.2 MEAN CORPUSCULAR HEMOGLOBIN CONC (BEAKER) (test uwns=654) 32.3 GM/DL 32.2-35.5 RED CELL DISTRIBUTION WIDTH (BEAKER) (test jkju=485) 18.5 % 11.7-14.4 PLATELET COUNT (BEAKER) (test aqwt=071) 251 K/CU MM 150-450 MEAN PLATELET VOLUME (BEAKER) (test pmdv=820) 10.0 fL 9.4-12.3 NUCLEATED RED BLOOD CELLS (BEAKER) (test hoez=389) 2 /100 WBC 0-0 NEUTROPHILS RELATIVE PERCENT (BEAKER) (test yukh=694) 58 % LYMPHOCYTES RELATIVE PERCENT (BEAKER) (test ddhx=221) 29 % MONOCYTES RELATIVE PERCENT (BEAKER) (test pske=373) 9 % EOSINOPHILS RELATIVE PERCENT (BEAKER) (test glev=215) 2 % BASOPHILS RELATIVE PERCENT (BEAKER) (test trmx=629) 1 % NEUTROPHILS ABSOLUTE COUNT (BEAKER) (test eqhh=066) 6.10 K/ L 1.56-6.13 LYMPHOCYTES ABSOLUTE COUNT (BEAKER) (test ezft=870) 3.02 K/ L 1.18-3.74 MONOCYTES ABSOLUTE COUNT (BEAKER) (test erzn=701) 0.96 K/ L 0.24-0.36 EOSINOPHILS ABSOLUTE COUNT (BEAKER) (test pdwr=540) 0.19 K/ L 0.04-0.36 BASOPHILS ABSOLUTE COUNT (BEAKER) (test pigd=587) 0.13 K/ L 0.01-0.08 IMMATURE GRANULOCYTES-RELATIVE PERCENT (BEAKER) (test chig=6217) 1 % 0-1 CBC W/PLT COUNT & AUTO [id number] 10:54:00* Test Item Value Reference Range Comments WHITE BLOOD CELL COUNT (BEAKER) (test jnyr=566) 7.3 K/ L 3.5-10.5 RED BLOOD CELL COUNT (BEAKER) (test blce=440) 2.84 M/ L 3.93-5.22 HEMOGLOBIN (BEAKER) (test vxzm=239) 6.6 GM/DL 11.2-15.7 HEMATOCRIT (BEAKER) (test icso=423) 21.9 % 34.1-44.9 MEAN CORPUSCULAR VOLUME (BEAKER) (test tfer=943) 77.1 fL 79.4-94.8 MEAN CORPUSCULAR HEMOGLOBIN (BEAKER) (test gwdo=671) 23.2 pg 25.6-32.2 MEAN CORPUSCULAR HEMOGLOBIN CONC (BEAKER) (test nmiv=097) 30.1 GM/DL 32.2-35.5 RED CELL DISTRIBUTION WIDTH (BEAKER) (test zpgv=269) 20.1 % 11.7-14.4 PLATELET COUNT (BEAKER) (test vzyi=946) 302 K/CU MM 150-450 MEAN PLATELET VOLUME (BEAKER) (test hjwn=247) 10.1 fL 9.4-12.3 NUCLEATED RED BLOOD CELLS (BEAKER) (test dhiw=490) 4 /100 WBC 0-0 (CELLAVISION MANUAL DIFF)2018-11-04 10:54:00* Test Item Value Reference Range Comments NEUTROPHILS - REL (CELLAVISION)(BEAKER) (test qpfp=7644) 37 % LYMPHOCYTES - REL (CELLAVISION)(BEAKER) (test lwpx=0182) 50 % MONOCYTES - REL (CELLAVISION)(BEAKER) (test zcwh=2997) 7 % EOSINOPHILS - REL (CELLAVISION)(BEAKER) (test bmuf=5038) 4 % METAMYELOCYTES - REL (CELLAVISION)(BEAKER) (test ewnm=2612) 1 % 0-0 MYELOCYTES - REL (CELLAVISION)(BEAKER) (test xijn=1673) 1 % 0-0 NEUTROPHILS - ABS (CELLAVISION)(BEAKER) (test mgcy=7289) 2.70 K/ul 1.56-6.13 LYMPHOCYTES - ABS (CELLAVISION)(BEAKER) (test gzhy=3418) 3.65 K/ul 1.18-3.74 MONOCYTES - ABS (CELLAVISION)(BEAKER) (test gcbt=1262) 0.51 K/uL 0.24-0.36 EOSINOPHILS - ABS (CELLAVISION)(BEAKER) (test gizb=3319) 0.29 K/uL 0.04-0.36 METAMYELOCYTES - ABS (CELLAVISION)(BEAKER) (test rgnu=8317) 0.07 K/uL 0.00-0.00 MYELOCYTES-ABS (CELLAVISION)(BEAKER) (test udkz=3883) 0.07 K/uL 0.00-0.00 TOTAL COUNTED (BEAKER) (test hgef=2708) 100 MANUAL NRBC PER 100 CELLS (BEAKER) (test wfbp=2354) 2 /100 WBC 0-0 WBC MORPHOLOGY (BEAKER) (test lydb=836) Normal PLT MORPHOLOGY (BEAKER) (test agak=750) Normal POLYCHROMATOPHILLIC RBCS(BEAKER) (test fiqc=793) 2+ moderate HYPOCHROMIA (BEAKER) (test eeqt=183) 2+ moderate ANISOCYTOSIS (BEAKER) (test dikp=770) 2+ moderate POIKILOCYTES (BEAKER) (test arku=661) 2+ moderate TARGET CELLS (BEAKER) (test nodx=828) 2+ moderate ARTIFACT (CELLAVISION)(BEAKER) (test wgrt=0552) Present PLATELET CONCENTRATION (CELLAVISION)(BEAKER) (test jxsp=7007) Adequate Received comment: User comments: Slide comments: LACTATE DEHYDROGENASE (LDH) 2018-11-03 19:42:00* Test Item Value Reference Range Comments LACTATE DEHYDROGENASE (BEAKER) (test kuof=748) 447 U/L 125-220 Specimen slightly hemolyzed CBC W/PLT COUNT & AUTO [id number] 07:13:00* Test Item Value Reference Range Comments WHITE BLOOD CELL COUNT (BEAKER) (test fggn=093) 6.6 K/ L 3.5-10.5 RED BLOOD CELL COUNT (BEAKER) (test ldgk=378) 2.56 M/ L 3.93-5.22 HEMOGLOBIN (BEAKER) (test ekmq=971) 6.0 GM/DL 11.2-15.7 HEMATOCRIT (BEAKER) (test qulj=814) 19.2 % 34.1-44.9 MEAN CORPUSCULAR VOLUME (BEAKER) (test xpqy=712) 75.0 fL 79.4-94.8 MEAN CORPUSCULAR HEMOGLOBIN (BEAKER) (test ehbb=386) 23.4 pg 25.6-32.2 MEAN CORPUSCULAR HEMOGLOBIN CONC (BEAKER) (test voxr=265) 31.3 GM/DL 32.2-35.5 RED CELL DISTRIBUTION WIDTH (BEAKER) (test ocjj=324) 19.2 % 11.7-14.4 PLATELET COUNT (BEAKER) (test mwht=577) 223 K/CU MM 150-450 MEAN PLATELET VOLUME (BEAKER) (test suut=056) 10.1 fL 9.4-12.3 NUCLEATED RED BLOOD CELLS (BEAKER) (test comi=752) 1 /100 WBC 0-0 NEUTROPHILS RELATIVE PERCENT (BEAKER) (test tezd=408) 40 % LYMPHOCYTES RELATIVE PERCENT (BEAKER) (test xgmn=276) 41 % MONOCYTES RELATIVE PERCENT (BEAKER) (test jqve=064) 12 % EOSINOPHILS RELATIVE PERCENT (BEAKER) (test iqhn=285) 4 % BASOPHILS RELATIVE PERCENT (BEAKER) (test ljfp=023) 2 % NEUTROPHILS ABSOLUTE COUNT (BEAKER) (test uceq=483) 2.66 K/ L 1.56-6.13 LYMPHOCYTES ABSOLUTE COUNT (BEAKER) (test djaw=399) 2.69 K/ L 1.18-3.74 MONOCYTES ABSOLUTE COUNT (BEAKER) (test tpij=862) 0.80 K/ L 0.24-0.36 EOSINOPHILS ABSOLUTE COUNT (BEAKER) (test cboe=618) 0.28 K/ L 0.04-0.36 BASOPHILS ABSOLUTE COUNT (BEAKER) (test ditw=508) 0.11 K/ L 0.01-0.08 IMMATURE GRANULOCYTES-RELATIVE PERCENT (BEAKER) (test suyi=1662) 1 % 0-1 BLOOD [id number] 01:00:00* Test Item Value Reference Range Comments CULTURE (BEAKER) (test eyan=2498) No growth in 5 days BLOOD [id number] 01:00:00* Test Item Value Reference Range Comments CULTURE (BEAKER) (test tiad=2970) No growth in 5 days CBC W/PLT COUNT & AUTO [id number] 06:12:00* Test Item Value Reference Range Comments WHITE BLOOD CELL COUNT (BEAKER) (test mnqq=583) 5.7 K/ L 3.5-10.5 RED BLOOD CELL COUNT (BEAKER) (test merk=444) 2.67 M/ L 3.93-5.22 HEMOGLOBIN (BEAKER) (test qmip=946) 6.3 GM/DL 11.2-15.7 HEMATOCRIT (BEAKER) (test vsho=021) 20.0 % 34.1-44.9 MEAN CORPUSCULAR VOLUME (BEAKER) (test ssmf=292) 74.9 fL 79.4-94.8 MEAN CORPUSCULAR HEMOGLOBIN (BEAKER) (test vfmn=141) 23.6 pg 25.6-32.2 MEAN CORPUSCULAR HEMOGLOBIN CONC (BEAKER) (test mrya=434) 31.5 GM/DL 32.2-35.5 RED CELL DISTRIBUTION WIDTH (BEAKER) (test mmsg=361) 18.6 % 11.7-14.4 PLATELET COUNT (BEAKER) (test ttpv=241) 219 K/CU MM 150-450 MEAN PLATELET VOLUME (BEAKER) (test oldr=694) 10.8 fL 9.4-12.3 NUCLEATED RED BLOOD CELLS (BEAKER) (test tkls=980) 1 /100 WBC 0-0 NEUTROPHILS RELATIVE PERCENT (BEAKER) (test ixul=019) 48 % LYMPHOCYTES RELATIVE PERCENT (BEAKER) (test shzh=940) 35 % MONOCYTES RELATIVE PERCENT (BEAKER) (test hmdq=470) 11 % EOSINOPHILS RELATIVE PERCENT (BEAKER) (test mezl=924) 5 % BASOPHILS RELATIVE PERCENT (BEAKER) (test gtlj=101) 1 % NEUTROPHILS ABSOLUTE COUNT (BEAKER) (test ptez=278) 2.73 K/ L 1.56-6.13 LYMPHOCYTES ABSOLUTE COUNT (BEAKER) (test tjdn=393) 1.96 K/ L 1.18-3.74 MONOCYTES ABSOLUTE COUNT (BEAKER) (test yicj=589) 0.62 K/ L 0.24-0.36 EOSINOPHILS ABSOLUTE COUNT (BEAKER) (test shee=088) 0.27 K/ L 0.04-0.36 BASOPHILS ABSOLUTE COUNT (BEAKER) (test nxvy=847) 0.08 K/ L 0.01-0.08 IMMATURE GRANULOCYTES-RELATIVE PERCENT (BEAKER) (test fzhc=0871) 0 % 0-1 CBC W/PLT COUNT & AUTO [id number] 07:13:00* Test Item Value Reference Range Comments WHITE BLOOD CELL COUNT (BEAKER) (test usty=233) 7.2 K/ L 3.5-10.5 RED BLOOD CELL COUNT (BEAKER) (test qdav=776) 2.67 M/ L 3.93-5.22 HEMOGLOBIN (BEAKER) (test dadh=725) 6.3 GM/DL 11.2-15.7 HEMATOCRIT (BEAKER) (test cycc=491) 20.0 % 34.1-44.9 MEAN CORPUSCULAR VOLUME (BEAKER) (test agnn=129) 74.9 fL 79.4-94.8 MEAN CORPUSCULAR HEMOGLOBIN (BEAKER) (test vpwx=428) 23.6 pg 25.6-32.2 MEAN CORPUSCULAR HEMOGLOBIN CONC (BEAKER) (test imzr=194) 31.5 GM/DL 32.2-35.5 RED CELL DISTRIBUTION WIDTH (BEAKER) (test dara=560) 17.8 % 11.7-14.4 PLATELET COUNT (BEAKER) (test kilz=014) 170 K/CU MM 150-450 MEAN PLATELET VOLUME (BEAKER) (test tmsf=512) 9.9 fL 9.4-12.3 NUCLEATED RED BLOOD CELLS (BEAKER) (test aahf=295) 1 /100 WBC 0-0 NEUTROPHILS RELATIVE PERCENT (BEAKER) (test prjx=402) 64 % LYMPHOCYTES RELATIVE PERCENT (BEAKER) (test qfcr=905) 21 % MONOCYTES RELATIVE PERCENT (BEAKER) (test jxaa=166) 11 % EOSINOPHILS RELATIVE PERCENT (BEAKER) (test ahdz=839) 3 % BASOPHILS RELATIVE PERCENT (BEAKER) (test ccfw=066) 0 % NEUTROPHILS ABSOLUTE COUNT (BEAKER) (test nxsh=138) 4.60 K/ L 1.56-6.13 LYMPHOCYTES ABSOLUTE COUNT (BEAKER) (test zdoy=072) 1.51 K/ L 1.18-3.74 MONOCYTES ABSOLUTE COUNT (BEAKER) (test xvmo=517) 0.80 K/ L 0.24-0.36 EOSINOPHILS ABSOLUTE COUNT (BEAKER) (test ctuc=290) 0.21 K/ L 0.04-0.36 BASOPHILS ABSOLUTE COUNT (BEAKER) (test xnkz=708) 0.03 K/ L 0.01-0.08 IMMATURE GRANULOCYTES-RELATIVE PERCENT (BEAKER) (test xktj=5006) 0 % 0-1 BASIC METABOLIC [id number] 07:02:00* Test Item Value Reference Range Comments SODIUM (BEAKER) (test ciyc=373) 142 meq/L 136-145 POTASSIUM (BEAKER) (test uauv=014) 3.8 meq/L 3.5-5.1 CHLORIDE (BEAKER) (test vvvp=729) 112 meq/L 98-107 CO2 (BEAKER) (test ydjn=269) 25 meq/L 22-29 BLOOD UREA NITROGEN (BEAKER) (test jdud=106) 4 mg/dL 7-21 CREATININE (BEAKER) (test huxg=911) 0.50 mg/dL 0.57-1.25 GLUCOSE RANDOM (BEAKER) (test bssf=375) 100 mg/dL 70-105 CALCIUM (BEAKER) (test ayxd=984) 8.7 mg/dL 8.4-10.2 EGFR (BEAKER) (test yizg=3088) 187 mL/min/1.73 sq m ESTIMATED GFR IS NOT ACCURATE CREATININE CLEARANCE IN PREDICTING GLOMERULAR FILTRATION RATE. ESTIMATED GFR IS NOT APPLICABLE FOR DIALYSIS PATIENTS. CBC W/PLT COUNT & AUTO [id number] 08:52:00* Test Item Value Reference Range Comments WHITE BLOOD CELL COUNT (BEAKER) (test uqxn=378) 10.5 K/ L 3.5-10.5 RED BLOOD CELL COUNT (BEAKER) (test xrde=277) 3.06 M/ L 3.93-5.22 HEMOGLOBIN (BEAKER) (test teqn=298) 7.2 GM/DL 11.2-15.7 HEMATOCRIT (BEAKER) (test chde=293) 22.9 % 34.1-44.9 MEAN CORPUSCULAR VOLUME (BEAKER) (test ocio=192) 74.8 fL 79.4-94.8 MEAN CORPUSCULAR HEMOGLOBIN (BEAKER) (test bdol=928) 23.5 pg 25.6-32.2 MEAN CORPUSCULAR HEMOGLOBIN CONC (BEAKER) (test gcdo=995) 31.4 GM/DL 32.2-35.5 RED CELL DISTRIBUTION WIDTH (BEAKER) (test pdif=054) 18.3 % 11.7-14.4 PLATELET COUNT (BEAKER) (test rpef=589) 213 K/CU MM 150-450 MEAN PLATELET VOLUME (BEAKER) (test mthb=763) 10.6 fL 9.4-12.3 NUCLEATED RED BLOOD CELLS (BEAKER) (test noxf=595) 2 /100 WBC 0-0 NEUTROPHILS RELATIVE PERCENT (BEAKER) (test ontc=509) 77 % LYMPHOCYTES RELATIVE PERCENT (BEAKER) (test yfvh=822) 10 % MONOCYTES RELATIVE PERCENT (BEAKER) (test mzhe=302) 12 % EOSINOPHILS RELATIVE PERCENT (BEAKER) (test xosz=372) 1 % BASOPHILS RELATIVE PERCENT (BEAKER) (test ybwg=369) 0 % NEUTROPHILS ABSOLUTE COUNT (BEAKER) (test bmsn=816) 8.03 K/ L 1.56-6.13 LYMPHOCYTES ABSOLUTE COUNT (BEAKER) (test hozu=742) 1.00 K/ L 1.18-3.74 MONOCYTES ABSOLUTE COUNT (BEAKER) (test pgbq=534) 1.24 K/ L 0.24-0.36 EOSINOPHILS ABSOLUTE COUNT (BEAKER) (test gdlc=650) 0.10 K/ L 0.04-0.36 BASOPHILS ABSOLUTE COUNT (BEAKER) (test jxcv=932) 0.04 K/ L 0.01-0.08 IMMATURE GRANULOCYTES-RELATIVE PERCENT (BEAKER) (test mchm=0841) 1 % 0-1 BASIC METABOLIC [id number] 07:29:00* Test Item Value Reference Range Comments SODIUM (BEAKER) (test vwfw=807) 141 meq/L 136-145 POTASSIUM (BEAKER) (test dfke=846) 3.5 meq/L 3.5-5.1 CHLORIDE (BEAKER) (test ewzh=699) 107 meq/L 98-107 CO2 (BEAKER) (test zqxx=973) 26 meq/L 22-29 BLOOD UREA NITROGEN (BEAKER) (test hfuf=296) 6 mg/dL 7-21 CREATININE (BEAKER) (test dcuo=486) 0.56 mg/dL 0.57-1.25 GLUCOSE RANDOM (BEAKER) (test tebx=077) 96 mg/dL 70-105 CALCIUM (BEAKER) (test vqxj=059) 8.8 mg/dL 8.4-10.2 EGFR (BEAKER) (test pnuy=5948) 164 mL/min/1.73 sq m ESTIMATED GFR IS NOT ACCURATE CREATININE CLEARANCE IN PREDICTING GLOMERULAR FILTRATION RATE. ESTIMATED GFR IS NOT APPLICABLE FOR DIALYSIS PATIENTS. CBC W/PLT COUNT & AUTO [id number] 12:09:00* Test Item Value Reference Range Comments WHITE BLOOD CELL COUNT (BEAKER) (test mwhf=766) 17.0 K/ L 3.5-10.5 RED BLOOD CELL COUNT (BEAKER) (test rkbh=706) 3.04 M/ L 3.93-5.22 HEMOGLOBIN (BEAKER) (test jzbu=063) 7.2 GM/DL 11.2-15.7 HEMATOCRIT (BEAKER) (test nglt=821) 23.3 % 34.1-44.9 MEAN CORPUSCULAR VOLUME (BEAKER) (test shjf=383) 76.6 fL 79.4-94.8 MEAN CORPUSCULAR HEMOGLOBIN (BEAKER) (test bcng=271) 23.7 pg 25.6-32.2 MEAN CORPUSCULAR HEMOGLOBIN CONC (BEAKER) (test apxh=752) 30.9 GM/DL 32.2-35.5 RED CELL DISTRIBUTION WIDTH (BEAKER) (test byza=189) 18.4 % 11.7-14.4 PLATELET COUNT (BEAKER) (test ghfm=925) 254 K/CU MM 150-450 MEAN PLATELET VOLUME (BEAKER) (test gfff=892) 10.0 fL 9.4-12.3 NUCLEATED RED BLOOD CELLS (BEAKER) (test ihys=320) 11 /100 WBC 0-0 (CELLAVISION MANUAL DIFF)2018-10-29 12:09:00* Test Item Value Reference Range Comments NEUTROPHILS - REL (CELLAVISION)(BEAKER) (test iruz=1503) 84 % LYMPHOCYTES - REL (CELLAVISION)(BEAKER) (test wfnz=1587) 6 % MONOCYTES - REL (CELLAVISION)(BEAKER) (test eysq=4121) 7 % EOSINOPHILS - REL (CELLAVISION)(BEAKER) (test zdas=5124) 2 % BASOPHILS - REL (CELLAVISION)(BEAKER) (test rawb=2745) 1 % NEUTROPHILS - ABS (CELLAVISION)(BEAKER) (test jywi=9741) 14.28 K/ul 1.56-6.13 LYMPHOCYTES - ABS (CELLAVISION)(BEAKER) (test zakw=2433) 1.02 K/ul 1.18-3.74 MONOCYTES - ABS (CELLAVISION)(BEAKER) (test dtih=8037) 1.19 K/uL 0.24-0.36 EOSINOPHILS - ABS (CELLAVISION)(BEAKER) (test byde=3649) 0.34 K/uL 0.04-0.36 BASOPHILS - ABS (CELLAVISION)(BEAKER) (test xqgb=8309) 0.17 K/uL 0.01-0.08 TOTAL COUNTED (BEAKER) (test gdau=1811) 100 MANUAL NRBC PER 100 CELLS (BEAKER) (test zhvw=8501) 17 /100 WBC 0-0 WBC MORPHOLOGY (BEAKER) (test ykpq=433) Normal PLT MORPHOLOGY (BEAKER) (test pbxm=669) Normal POLYCHROMATOPHILLIC RBCS(BEAKER) (test xhnn=472) 2+ moderate ANISOCYTOSIS (BEAKER) (test iojx=362) 2+ moderate TARGET CELLS (BEAKER) (test zjoh=704) 2+ moderate SICKLE CELLS (BEAKER) (test qmzg=873) 2+ moderate ARTIFACT (CELLAVISION)(BEAKER) (test jrly=3498) Present PLATELET CONCENTRATION (CELLAVISION)(BEAKER) (test oawh=8054) Adequate Received comment: User comments: Slide comments: POCT-GLUCOSE [id number] 09:18:00* Test Item Value Reference Range Comments POC-GLUCOSE METER (BEAKER) (test oqvp=0044) 117 mg/dL 70-110 TESTED AT [facility] [address] [facility] [address] BASIC METABOLIC [id number] 06:33:00* Test Item Value Reference Range Comments SODIUM (BEAKER) (test lkrk=840) 140 meq/L 136-145 POTASSIUM (BEAKER) (test hsdu=779) 3.4 meq/L 3.5-5.1 CHLORIDE (BEAKER) (test bixm=805) 107 meq/L 98-107 CO2 (BEAKER) (test cwyg=758) 26 meq/L 22-29 BLOOD UREA NITROGEN (BEAKER) (test eidz=439) 4 mg/dL 7-21 CREATININE (BEAKER) (test nwrp=690) 0.53 mg/dL 0.57-1.25 GLUCOSE RANDOM (BEAKER) (test hunx=877) 98 mg/dL 70-105 CALCIUM (BEAKER) (test zekr=916) 8.6 mg/dL 8.4-10.2 EGFR (BEAKER) (test zjab=7069) 175 mL/min/1.73 sq m ESTIMATED GFR IS NOT ACCURATE CREATININE CLEARANCE IN PREDICTING GLOMERULAR FILTRATION RATE. ESTIMATED GFR IS NOT APPLICABLE FOR DIALYSIS PATIENTS. URINALYSIS W/ REFLEX URINE [id number] 22:14:00* Test Item Value Reference Range Comments COLOR (BEAKER) (test ezak=289) Light Yellow CLARITY (BEAKER) (test qsll=573) Clear SPECIFIC GRAVITY UA (BEAKER) (test uvmz=003) 1.006 1.001-1.035 PH UA (BEAKER) (test sqcr=050) 6.5 5.0-8.0 PROTEIN UA (BEAKER) (test rnwz=116) Negative Negative GLUCOSE UA (BEAKER) (test iiqv=564) Negative Negative KETONES UA (BEAKER) (test size=319) Negative Negative BILIRUBIN UA (BEAKER) (test zpyd=596) Negative Negative BLOOD UA (BEAKER) (test mceq=059) Negative Negative NITRITE UA (BEAKER) (test smor=563) Negative Negative LEUKOCYTE ESTERASE UA (BEAKER) (test wmpw=425) Negative Negative UROBILINOGEN UA (BEAKER) (test wdfd=824) 0.2 mg/dL 0.2-1.0 RBC UA (BEAKER) (test gibd=856) < /HPF WBC UA (BEAKER) (test qjjg=733) 1 /HPF BACTERIA (BEAKER) (test qwvv=910) Rare SQUAMOUS EPITHELIAL (BEAKER) (test cerq=646) < /HPF SOURCE(BEAKER) (test svvd=0529) LACTATE DEHYDROGENASE (LDH)2018-10-28 16:07:00* Test Item Value Reference Range Comments LACTATE DEHYDROGENASE (BEAKER) (test udux=074) 459 U/L 125-220 HEMOGLOBIN AND [id number] 15:49:00* Test Item Value Reference Range Comments HEMOGLOBIN (BEAKER) (test owet=184) 6.3 GM/DL 11.2-15.7 HEMATOCRIT (BEAKER) (test xtrj=543) 20.7 % 34.1-44.9 CBC W/PLT COUNT & AUTO [id number] 08:12:00* Test Item Value Reference Range Comments WHITE BLOOD CELL COUNT (BEAKER) (test cbuq=636) 17.0 K/ L 3.5-10.5 RED BLOOD CELL COUNT (BEAKER) (test coto=532) 2.89 M/ L 3.93-5.22 HEMOGLOBIN (BEAKER) (test apbt=453) 6.7 GM/DL 11.2-15.7 HEMATOCRIT (BEAKER) (test zpao=863) 21.4 % 34.1-44.9 MEAN CORPUSCULAR VOLUME (BEAKER) (test hell=625) 74.0 fL 79.4-94.8 MEAN CORPUSCULAR HEMOGLOBIN (BEAKER) (test timp=259) 23.2 pg 25.6-32.2 MEAN CORPUSCULAR HEMOGLOBIN CONC (BEAKER) (test yjpc=306) 31.3 GM/DL 32.2-35.5 RED CELL DISTRIBUTION WIDTH (BEAKER) (test oxis=300) 17.2 % 11.7-14.4 PLATELET COUNT (BEAKER) (test jczn=590) 358 K/CU MM 150-450 MEAN PLATELET VOLUME (BEAKER) (test llrg=969) 9.7 fL 9.4-12.3 NUCLEATED RED BLOOD CELLS (BEAKER) (test ckbj=575) 4 /100 WBC 0-0 (CELLAVISION MANUAL DIFF)2018-10-28 08:12:00* Test Item Value Reference Range Comments NEUTROPHILS - REL (CELLAVISION)(BEAKER) (test objr=9516) 74 % LYMPHOCYTES - REL (CELLAVISION)(BEAKER) (test ougs=9284) 22 % MONOCYTES - REL (CELLAVISION)(BEAKER) (test kxno=8683) 3 % BASOPHILS - REL (CELLAVISION)(BEAKER) (test glvl=5142) 1 % NEUTROPHILS - ABS (CELLAVISION)(BEAKER) (test qkwm=0876) 12.58 K/ul 1.56-6.13 LYMPHOCYTES - ABS (CELLAVISION)(BEAKER) (test cnjl=0526) 3.74 K/ul 1.18-3.74 MONOCYTES - ABS (CELLAVISION)(BEAKER) (test uhlx=0760) 0.51 K/uL 0.24-0.36 BASOPHILS - ABS (CELLAVISION)(BEAKER) (test wmld=7490) 0.17 K/uL 0.01-0.08 TOTAL COUNTED (BEAKER) (test xqkw=5993) 100 MANUAL NRBC PER 100 CELLS (BEAKER) (test cniv=2531) 13 /100 WBC 0-0 WBC MORPHOLOGY (BEAKER) (test nctf=506) Normal LARGE PLT(BEAKER) (test bnhe=2227) Present POLYCHROMATOPHILLIC RBCS(BEAKER) (test uhdv=708) 3+ many HYPOCHROMIA (BEAKER) (test etge=559) 1+ few ANISOCYTOSIS (BEAKER) (test fwyq=582) 2+ moderate MICROCYTES (BEAKER) (test kzqs=210) 2+ moderate POIKILOCYTES (BEAKER) (test kkty=347) 1+ few TARGET CELLS (BEAKER) (test rokk=923) 1+ few SICKLE CELLS (BEAKER) (test lidl=070) 1+ few FERNANDO-JOLLY BODIES (BEAKER) (test fggz=088) 1+ few ARTIFACT (CELLAVISION)(BEAKER) (test bjoj=3964) Present PLATELET CONCENTRATION (CELLAVISION)(BEAKER) (test lppr=9583) Adequate Received comment: User comments: Slide comments: RAD, CHEST, 1 VIEW, NON DEPT 2018-10-28 03:27:00Reason for exam:->SICKLE CELL PAIN CRISISIs the patient ?->UnknownFINAL REPORT History: Chest pain, history of sickle cell anemia. Comparison: 10/24/2018 Findings: A single view of the chest is submitted. The cardiomediastinal contours are unremarkable. The lung volumes are slightly low. Curvilinear opacities in the lower lungs suggest atelectasis or scarring. There is no dense focal consolidation, pneumothorax, large pleural effusion, evidence of overt pulmonary edema or acute bony abnormality. There are diffuse skeletal changes consistent with the given history of sickle cell anemia. Signed: Ernie Sawyer MDReport Verified Date/Time: 10/28/2018 03:27:11 Reading Location: [address] Reading Room C METABOLIC [id number] 02:23:00* Test Item Value Reference Range Comments SODIUM (BEAKER) (test eumm=459) 144 meq/L 136-145 POTASSIUM (BEAKER) (test mslx=921) 3.7 meq/L 3.5-5.1 CHLORIDE (BEAKER) (test oobu=346) 111 meq/L 98-107 CO2 (BEAKER) (test rjbz=831) 23 meq/L 22-29 BLOOD UREA NITROGEN (BEAKER) (test lfsm=777) 8 mg/dL 7-21 CREATININE (BEAKER) (test mtjm=675) 0.62 mg/dL 0.57-1.25 GLUCOSE RANDOM (BEAKER) (test flgy=842) 118 mg/dL 70-105 CALCIUM (BEAKER) (test xtgz=605) 9.5 mg/dL 8.4-10.2 EGFR (BEAKER) (test mmad=3227) 146 mL/min/1.73 sq m ESTIMATED GFR IS NOT ACCURATE CREATININE CLEARANCE IN PREDICTING GLOMERULAR FILTRATION RATE. ESTIMATED GFR IS NOT APPLICABLE FOR DIALYSIS PATIENTS. RETICULOCYTE [id number] 02:22:00* Test Item Value Reference Range Comments RETICULOCYTE COUNT PCT (BEAKER) (test rwds=772) 11.1 % 0.5-1.7 LACTATE DEHYDROGENASE (LDH)2018-10-25 05:46:00* Test Item Value Reference Range Comments LACTATE DEHYDROGENASE (BEAKER) (test xpmk=381) 274 U/L 125-220 RETICULOCYTE [id number] 05:22:00* Test Item Value Reference Range Comments RETICULOCYTE COUNT PCT (BEAKER) (test qwwk=959) 7.2 % 0.5-1.7 CBC (HEMOGRAM ONLY)2018-10-25 05:22:00* Test Item Value Reference Range Comments WHITE BLOOD CELL COUNT (BEAKER) (test jsrs=017) 8.0 K/ L 3.5-10.5 RED BLOOD CELL COUNT (BEAKER) (test eyts=461) 2.80 M/ L 3.93-5.22 HEMOGLOBIN (BEAKER) (test phkb=325) 6.3 GM/DL 11.2-15.7 HEMATOCRIT (BEAKER) (test zabn=340) 20.1 % 34.1-44.9 MEAN CORPUSCULAR VOLUME (BEAKER) (test cbrq=502) 71.8 fL 79.4-94.8 MEAN CORPUSCULAR HEMOGLOBIN (BEAKER) (test pigu=095) 22.5 pg 25.6-32.2 MEAN CORPUSCULAR HEMOGLOBIN CONC (BEAKER) (test wwzi=068) 31.3 GM/DL 32.2-35.5 RED CELL DISTRIBUTION WIDTH (BEAKER) (test spgu=828) 16.9 % 11.7-14.4 PLATELET COUNT (BEAKER) (test loaf=214) 374 K/CU MM 150-450 MEAN PLATELET VOLUME (BEAKER) (test jurc=612) 9.4 fL 9.4-12.3 NUCLEATED RED BLOOD CELLS (BEAKER) (test fwkw=588) 2 /100 WBC 0-0 RAD, CHEST, 1 VIEW, NON [id number] 23:32:00Reason for exam:->concern for acute chest syndromeShould this be performed at the bedside?->YesFINAL REPORT RAD, CHEST, 1 VIEW, NON DEPT INDICATION: concern for acute chest syndrome COMPARISON: Prior day's exam FINDINGS: Portable frontal view of the chest. IMPRESSION: Lungs and pleura: Increased heterogeneous is airspace opacity in the right base. Left basilar atelectasis is not signifi cantly changed in the interval. No pleural effusion or pneumothorax.Heart and me diastinum: Stable contours. Additional findings: None. Signed: Adonay Lyon MDReport Verified Date/Time: 10/24/2018 23:32:17 Reading Location: [address] Transitional Reading Room ONIN [id number] 22:46:00* Test Item Value Reference Range Comments TROPONIN I (BEAKER) (test fkuw=493) < ng/mL 0.00-0.03 Troponin I (TnI) levels must be interpreted in the context of the presenting sym ptoms and the clinical findings. Elevated TnI levels indicate myocardial damage, but are not specific for ischemic heart disease. Elevated TnI levels are seen in patients with other cardiac conditions (including myocarditis and congestive h eart failure), and slight TnI elevations occur in patients with other conditions , including sepsis, renal failure, acidosis, acute neurological disease, and per sistent tachyarrhythmia.LACTATE DEHYDROGENASE (LDH)2018-10-24 05:28:00* Test Item Value Reference Range Comments LACTATE DEHYDROGENASE (BEAKER) (test luww=152) 292 U/L 125-220 CBC (HEMOGRAM ONLY)2018-10-24 05:14:00* Test Item Value Reference Range Comments WHITE BLOOD CELL COUNT (BEAKER) (test okls=909) 11.1 K/ L 3.5-10.5 RED BLOOD CELL COUNT (BEAKER) (test wbty=104) 2.86 M/ L 3.93-5.22 HEMOGLOBIN (BEAKER) (test dndr=572) 6.5 GM/DL 11.2-15.7 HEMATOCRIT (BEAKER) (test dwdz=677) 20.5 % 34.1-44.9 MEAN CORPUSCULAR VOLUME (BEAKER) (test dkgs=494) 71.7 fL 79.4-94.8 MEAN CORPUSCULAR HEMOGLOBIN (BEAKER) (test gkga=947) 22.7 pg 25.6-32.2 MEAN CORPUSCULAR HEMOGLOBIN CONC (BEAKER) (test ywad=834) 31.7 GM/DL 32.2-35.5 RED CELL DISTRIBUTION WIDTH (BEAKER) (test nhyd=720) 17.1 % 11.7-14.4 PLATELET COUNT (BEAKER) (test ntjj=552) 393 K/CU MM 150-450 MEAN PLATELET VOLUME (BEAKER) (test jsje=116) 9.4 fL 9.4-12.3 NUCLEATED RED BLOOD CELLS (BEAKER) (test pbuy=103) 1 /100 WBC 0-0 RETICULOCYTE [id number] 05:14:00* Test Item Value Reference Range Comments RETICULOCYTE COUNT PCT (BEAKER) (test otwd=382) 9.2 % 0.5-1.7 BLOOD [id number] 01:01:00* Test Item Value Reference Range Comments CULTURE (BEAKER) (test vkis=8179) No growth in 5 days BLOOD [id number] 19:01:00* Test Item Value Reference Range Comments CULTURE (BEAKER) (test oexv=5226) No growth in 5 days RETICULOCYTE [id number] 06:15:00* Test Item Value Reference Range Comments RETICULOCYTE COUNT PCT (BEAKER) (test mqxs=856) 10.0 % 0.5-1.7 LACTATE DEHYDROGENASE (LDH)2018-10-23 06:00:00* Test Item Value Reference Range Comments LACTATE DEHYDROGENASE (BEAKER) (test wefn=810) 296 U/L 125-220 RETICULOCYTE [id number] 06:02:00* Test Item Value Reference Range Comments RETICULOCYTE COUNT PCT (BEAKER) (test wsja=468) 9.7 % 0.5-1.7 LACTATE DEHYDROGENASE (LDH)2018-10-22 05:46:00* Test Item Value Reference Range Comments LACTATE DEHYDROGENASE (BEAKER) (test jgob=545) 330 U/L 125-220 CBC W/PLT COUNT & AUTO [id number] 05:31:00* Test Item Value Reference Range Comments WHITE BLOOD CELL COUNT (BEAKER) (test xoze=260) 11.2 K/ L 3.5-10.5 RED BLOOD CELL COUNT (BEAKER) (test mvjs=290) 2.85 M/ L 3.93-5.22 HEMOGLOBIN (BEAKER) (test vzeu=854) 6.5 GM/DL 11.2-15.7 HEMATOCRIT (BEAKER) (test ycbn=912) 20.9 % 34.1-44.9 MEAN CORPUSCULAR VOLUME (BEAKER) (test xkjn=075) 73.3 fL 79.4-94.8 MEAN CORPUSCULAR HEMOGLOBIN (BEAKER) (test xnuf=731) 22.8 pg 25.6-32.2 MEAN CORPUSCULAR HEMOGLOBIN CONC (BEAKER) (test kdut=811) 31.1 GM/DL 32.2-35.5 RED CELL DISTRIBUTION WIDTH (BEAKER) (test rbhf=879) 17.7 % 11.7-14.4 PLATELET COUNT (BEAKER) (test svnv=026) 373 K/CU MM 150-450 MEAN PLATELET VOLUME (BEAKER) (test balt=596) 10.0 fL 9.4-12.3 NUCLEATED RED BLOOD CELLS (BEAKER) (test hfim=701) 2 /100 WBC 0-0 NEUTROPHILS RELATIVE PERCENT (BEAKER) (test qlrx=998) 64 % LYMPHOCYTES RELATIVE PERCENT (BEAKER) (test qaem=384) 23 % MONOCYTES RELATIVE PERCENT (BEAKER) (test fjkk=890) 9 % EOSINOPHILS RELATIVE PERCENT (BEAKER) (test pabw=613) 3 % BASOPHILS RELATIVE PERCENT (BEAKER) (test nzoa=029) 1 % NEUTROPHILS ABSOLUTE COUNT (BEAKER) (test obiv=409) 7.19 K/ L 1.56-6.13 LYMPHOCYTES ABSOLUTE COUNT (BEAKER) (test asoj=171) 2.53 K/ L 1.18-3.74 MONOCYTES ABSOLUTE COUNT (BEAKER) (test mhzr=525) 1.00 K/ L 0.24-0.36 EOSINOPHILS ABSOLUTE COUNT (BEAKER) (test udke=427) 0.28 K/ L 0.04-0.36 BASOPHILS ABSOLUTE COUNT (BEAKER) (test trfh=061) 0.11 K/ L 0.01-0.08 IMMATURE GRANULOCYTES-RELATIVE PERCENT (BEAKER) (test qqqo=7916) 0 % 0-1 BLOOD [id number] 07:01:00* Test Item Value Reference Range Comments CULTURE (BEAKER) (test lwun=2004) No growth in 5 days LACTATE DEHYDROGENASE (LDH)2018-10-21 05:48:00* Test Item Value Reference Range Comments LACTATE DEHYDROGENASE (BEAKER) (test jcat=555) 346 U/L 125-220 BASIC METABOLIC [id number] 05:46:00* Test Item Value Reference Range Comments SODIUM (BEAKER) (test qjyu=246) 141 meq/L 136-145 POTASSIUM (BEAKER) (test whiw=890) 3.8 meq/L 3.5-5.1 Specimen slightly hemolyzed CHLORIDE (BEAKER) (test ssyl=540) 108 meq/L 98-107 CO2 (BEAKER) (test kiel=217) 27 meq/L 22-29 BLOOD UREA NITROGEN (BEAKER) (test gjuk=697) 2 mg/dL 7-21 CREATININE (BEAKER) (test kqrk=524) 0.54 mg/dL 0.57-1.25 Specimen slightly hemolyzed GLUCOSE RANDOM (BEAKER) (test eswt=322) 100 mg/dL 70-105 CALCIUM (BEAKER) (test qkuk=930) 9.3 mg/dL 8.4-10.2 EGFR (BEAKER) (test rljs=0009) 171 mL/min/1.73 sq m ESTIMATED GFR IS NOT ACCURATE CREATININE CLEARANCE IN PREDICTING GLOMERULAR FILTRATION RATE. ESTIMATED GFR IS NOT APPLICABLE FOR DIALYSIS PATIENTS. RETICULOCYTE [id number] 05:42:00* Test Item Value Reference Range Comments RETICULOCYTE COUNT PCT (BEAKER) (test irnf=317) 7.0 % 0.5-1.7 CBC W/PLT COUNT & AUTO [id number] 05:26:00* Test Item Value Reference Range Comments WHITE BLOOD CELL COUNT (BEAKER) (test ondp=431) 10.2 K/ L 3.5-10.5 RED BLOOD CELL COUNT (BEAKER) (test icsx=903) 2.71 M/ L 3.93-5.22 HEMOGLOBIN (BEAKER) (test fdwx=207) 6.1 GM/DL 11.2-15.7 HEMATOCRIT (BEAKER) (test kvgk=671) 19.7 % 34.1-44.9 MEAN CORPUSCULAR VOLUME (BEAKER) (test dzdo=982) 72.7 fL 79.4-94.8 MEAN CORPUSCULAR HEMOGLOBIN (BEAKER) (test dnws=468) 22.5 pg 25.6-32.2 MEAN CORPUSCULAR HEMOGLOBIN CONC (BEAKER) (test mfch=297) 31.0 GM/DL 32.2-35.5 RED CELL DISTRIBUTION WIDTH (BEAKER) (test eltc=900) 17.1 % 11.7-14.4 PLATELET COUNT (BEAKER) (test ranm=881) 360 K/CU MM 150-450 MEAN PLATELET VOLUME (BEAKER) (test sxtu=600) 10.4 fL 9.4-12.3 NUCLEATED RED BLOOD CELLS (BEAKER) (test jdfh=330) 1 /100 WBC 0-0 NEUTROPHILS RELATIVE PERCENT (BEAKER) (test yjkd=634) 51 % LYMPHOCYTES RELATIVE PERCENT (BEAKER) (test shht=931) 32 % MONOCYTES RELATIVE PERCENT (BEAKER) (test kmwy=054) 13 % EOSINOPHILS RELATIVE PERCENT (BEAKER) (test kgvr=245) 3 % BASOPHILS RELATIVE PERCENT (BEAKER) (test jpzb=466) 1 % NEUTROPHILS ABSOLUTE COUNT (BEAKER) (test vafr=430) 5.21 K/ L 1.56-6.13 LYMPHOCYTES ABSOLUTE COUNT (BEAKER) (test ldqs=056) 3.27 K/ L 1.18-3.74 MONOCYTES ABSOLUTE COUNT (BEAKER) (test ylma=146) 1.29 K/ L 0.24-0.36 EOSINOPHILS ABSOLUTE COUNT (BEAKER) (test vnkd=926) 0.34 K/ L 0.04-0.36 BASOPHILS ABSOLUTE COUNT (BEAKER) (test mmaf=295) 0.06 K/ L 0.01-0.08 IMMATURE GRANULOCYTES-RELATIVE PERCENT (BEAKER) (test qcbh=5477) 1 % 0-1 BASIC METABOLIC [id number] 14:13:00* Test Item Value Reference Range Comments SODIUM (BEAKER) (test kbyi=764) 146 meq/L 136-145 POTASSIUM (BEAKER) (test cxkx=970) 3.3 meq/L 3.5-5.1 CHLORIDE (BEAKER) (test fjlw=299) 114 meq/L 98-107 CO2 (BEAKER) (test dxzr=754) 25 meq/L 22-29 BLOOD UREA NITROGEN (BEAKER) (test apvx=435) 2 mg/dL 7-21 CREATININE (BEAKER) (test aywz=525) 0.48 mg/dL 0.57-1.25 GLUCOSE RANDOM (BEAKER) (test kttj=052) 82 mg/dL 70-105 CALCIUM (BEAKER) (test dbib=055) 8.5 mg/dL 8.4-10.2 EGFR (BEAKER) (test lpjg=5847) 196 mL/min/1.73 sq m ESTIMATED GFR IS NOT ACCURATE CREATININE CLEARANCE IN PREDICTING GLOMERULAR FILTRATION RATE. ESTIMATED GFR IS NOT APPLICABLE FOR DIALYSIS PATIENTS. CBC W/PLT COUNT & AUTO [id number] 07:19:00* Test Item Value Reference Range Comments WHITE BLOOD CELL COUNT (BEAKER) (test vevt=387) 7.7 K/ L 3.5-10.5 RED BLOOD CELL COUNT (BEAKER) (test tolu=516) 2.55 M/ L 3.93-5.22 HEMOGLOBIN (BEAKER) (test texa=198) 5.8 GM/DL 11.2-15.7 HEMATOCRIT (BEAKER) (test zacm=502) 18.5 % 34.1-44.9 MEAN CORPUSCULAR VOLUME (BEAKER) (test ufiy=440) 72.5 fL 79.4-94.8 MEAN CORPUSCULAR HEMOGLOBIN (BEAKER) (test roux=389) 22.7 pg 25.6-32.2 MEAN CORPUSCULAR HEMOGLOBIN CONC (BEAKER) (test pjof=636) 31.4 GM/DL 32.2-35.5 RED CELL DISTRIBUTION WIDTH (BEAKER) (test jmwr=969) 16.1 % 11.7-14.4 PLATELET COUNT (BEAKER) (test xcme=978) 279 K/CU MM 150-450 MEAN PLATELET VOLUME (BEAKER) (test zvkd=327) 10.3 fL 9.4-12.3 NUCLEATED RED BLOOD CELLS (BEAKER) (test ybbq=693) 1 /100 WBC 0-0 NEUTROPHILS RELATIVE PERCENT (BEAKER) (test tixk=927) 52 % LYMPHOCYTES RELATIVE PERCENT (BEAKER) (test wsxo=858) 29 % MONOCYTES RELATIVE PERCENT (BEAKER) (test nzsu=058) 14 % EOSINOPHILS RELATIVE PERCENT (BEAKER) (test qoop=163) 4 % BASOPHILS RELATIVE PERCENT (BEAKER) (test jjib=069) 1 % NEUTROPHILS ABSOLUTE COUNT (BEAKER) (test tlkc=955) 3.96 K/ L 1.56-6.13 LYMPHOCYTES ABSOLUTE COUNT (BEAKER) (test zgrc=672) 2.18 K/ L 1.18-3.74 MONOCYTES ABSOLUTE COUNT (BEAKER) (test mvmt=986) 1.10 K/ L 0.24-0.36 EOSINOPHILS ABSOLUTE COUNT (BEAKER) (test ykan=573) 0.31 K/ L 0.04-0.36 BASOPHILS ABSOLUTE COUNT (BEAKER) (test ewwp=187) 0.08 K/ L 0.01-0.08 IMMATURE GRANULOCYTES-RELATIVE PERCENT (BEAKER) (test zlhi=4135) 0 % 0-1 LACTATE DEHYDROGENASE (LDH)2018-10-20 07:02:00* Test Item Value Reference Range Comments LACTATE DEHYDROGENASE (BEAKER) (test gmac=370) 302 U/L 125-220 RETICULOCYTE [id number] 09:08:00* Test Item Value Reference Range Comments RETICULOCYTE COUNT PCT (BEAKER) (test vxyr=307) 6.1 % 0.5-1.7 CBC W/PLT COUNT & AUTO [id number] 09:08:00* Test Item Value Reference Range Comments WHITE BLOOD CELL COUNT (BEAKER) (test ycxf=284) 8.2 K/ L 3.5-10.5 RED BLOOD CELL COUNT (BEAKER) (test fntt=502) 2.47 M/ L 3.93-5.22 HEMOGLOBIN (BEAKER) (test fdqi=911) 5.8 GM/DL 11.2-15.7 HEMATOCRIT (BEAKER) (test kbxv=294) 17.9 % 34.1-44.9 MEAN CORPUSCULAR VOLUME (BEAKER) (test frjt=024) 72.5 fL 79.4-94.8 MEAN CORPUSCULAR HEMOGLOBIN (BEAKER) (test gdxl=435) 23.5 pg 25.6-32.2 MEAN CORPUSCULAR HEMOGLOBIN CONC (BEAKER) (test cotq=042) 32.4 GM/DL 32.2-35.5 RED CELL DISTRIBUTION WIDTH (BEAKER) (test fqxl=333) 15.9 % 11.7-14.4 PLATELET COUNT (BEAKER) (test pfsp=099) 230 K/CU MM 150-450 MEAN PLATELET VOLUME (BEAKER) (test uhhi=891) 10.8 fL 9.4-12.3 NUCLEATED RED BLOOD CELLS (BEAKER) (test axpk=853) 1 /100 WBC 0-0 NEUTROPHILS RELATIVE PERCENT (BEAKER) (test psce=530) 48 % LYMPHOCYTES RELATIVE PERCENT (BEAKER) (test toha=132) 32 % MONOCYTES RELATIVE PERCENT (BEAKER) (test ncts=223) 16 % EOSINOPHILS RELATIVE PERCENT (BEAKER) (test rrcf=092) 3 % BASOPHILS RELATIVE PERCENT (BEAKER) (test dwpu=338) 1 % NEUTROPHILS ABSOLUTE COUNT (BEAKER) (test sgpy=508) 3.90 K/ L 1.56-6.13 LYMPHOCYTES ABSOLUTE COUNT (BEAKER) (test yuxp=947) 2.60 K/ L 1.18-3.74 MONOCYTES ABSOLUTE COUNT (BEAKER) (test ndmr=210) 1.29 K/ L 0.24-0.36 EOSINOPHILS ABSOLUTE COUNT (BEAKER) (test logj=637) 0.28 K/ L 0.04-0.36 BASOPHILS ABSOLUTE COUNT (BEAKER) (test cfnx=526) 0.04 K/ L 0.01-0.08 IMMATURE GRANULOCYTES-RELATIVE PERCENT (BEAKER) (test igoc=8240) 1 % 0-1 LACTATE DEHYDROGENASE (LDH)2018-10-19 07:26:00* Test Item Value Reference Range Comments LACTATE DEHYDROGENASE (BEAKER) (test pdbi=100) 281 U/L 125-220 [id number] 20:35:00* Test Item Value Reference Range Comments PROCALCITONIN (BEAKER) (test dfaf=1637) < ng/mL <0.05 SEPSIS RISK (ng/mL)Low: 0.05-0.50Intermediate: 0.51-2.00High: > =2.01BASIC METABOLIC [id number] 11:14:00* Test Item Value Reference Range Comments SODIUM (BEAKER) (test ldtr=622) 138 meq/L 136-145 POTASSIUM (BEAKER) (test ubqt=780) 3.7 meq/L 3.5-5.1 CHLORIDE (BEAKER) (test bxyc=502) 105 meq/L 98-107 CO2 (BEAKER) (test avpv=171) 25 meq/L 22-29 BLOOD UREA NITROGEN (BEAKER) (test kyxe=893) 4 mg/dL 7-21 CREATININE (BEAKER) (test ppjf=358) 0.54 mg/dL 0.57-1.25 GLUCOSE RANDOM (BEAKER) (test muid=838) 92 mg/dL 70-105 CALCIUM (BEAKER) (test yysk=223) 9.4 mg/dL 8.4-10.2 EGFR (BEAKER) (test stca=8350) 171 mL/min/1.73 sq m ESTIMATED GFR IS NOT ACCURATE CREATININE CLEARANCE IN PREDICTING GLOMERULAR FILTRATION RATE. ESTIMATED GFR IS NOT APPLICABLE FOR DIALYSIS PATIENTS. LACTATE DEHYDROGENASE (LDH)2018-10-18 11:14:00* Test Item Value Reference Range Comments LACTATE DEHYDROGENASE (BEAKER) (test imum=368) 391 U/L 125-220 CBC W/PLT COUNT & AUTO [id number] 11:06:00* Test Item Value Reference Range Comments WHITE BLOOD CELL COUNT (BEAKER) (test fddj=939) 11.2 K/ L 3.5-10.5 RED BLOOD CELL COUNT (BEAKER) (test ftvg=226) 3.02 M/ L 3.93-5.22 HEMOGLOBIN (BEAKER) (test nwdm=506) 6.9 GM/DL 11.2-15.7 HEMATOCRIT (BEAKER) (test jbuh=333) 21.7 % 34.1-44.9 MEAN CORPUSCULAR VOLUME (BEAKER) (test uhne=948) 71.9 fL 79.4-94.8 MEAN CORPUSCULAR HEMOGLOBIN (BEAKER) (test mvap=740) 22.8 pg 25.6-32.2 MEAN CORPUSCULAR HEMOGLOBIN CONC (BEAKER) (test vkke=578) 31.8 GM/DL 32.2-35.5 RED CELL DISTRIBUTION WIDTH (BEAKER) (test vcoa=418) 16.9 % 11.7-14.4 PLATELET COUNT (BEAKER) (test puls=364) 262 K/CU MM 150-450 MEAN PLATELET VOLUME (BEAKER) (test equt=659) 11.2 fL 9.4-12.3 NUCLEATED RED BLOOD CELLS (BEAKER) (test kbgl=572) 1 /100 WBC 0-0 NEUTROPHILS RELATIVE PERCENT (BEAKER) (test typr=743) 82 % LYMPHOCYTES RELATIVE PERCENT (BEAKER) (test ghso=094) 6 % MONOCYTES RELATIVE PERCENT (BEAKER) (test jfah=875) 10 % EOSINOPHILS RELATIVE PERCENT (BEAKER) (test zmmq=739) 1 % BASOPHILS RELATIVE PERCENT (BEAKER) (test isrw=589) 0 % NEUTROPHILS ABSOLUTE COUNT (BEAKER) (test pobt=517) 9.12 K/ L 1.56-6.13 LYMPHOCYTES ABSOLUTE COUNT (BEAKER) (test siwt=339) 0.69 K/ L 1.18-3.74 MONOCYTES ABSOLUTE COUNT (BEAKER) (test skyj=132) 1.11 K/ L 0.24-0.36 EOSINOPHILS ABSOLUTE COUNT (BEAKER) (test uvnn=872) 0.16 K/ L 0.04-0.36 BASOPHILS ABSOLUTE COUNT (BEAKER) (test yuhw=392) 0.05 K/ L 0.01-0.08 IMMATURE GRANULOCYTES-RELATIVE PERCENT (BEAKER) (test kzle=4890) 0 % 0-1 RETICULOCYTE [id number] 11:06:00* Test Item Value Reference Range Comments RETICULOCYTE COUNT PCT (BEAKER) (test gqmo=141) 7.6 % 0.5-1.7 CBC W/PLT COUNT & AUTO [id number] 12:12:00* Test Item Value Reference Range Comments WHITE BLOOD CELL COUNT (BEAKER) (test glcz=980) 11.2 K/ L 3.5-10.5 RED BLOOD CELL COUNT (BEAKER) (test wqrk=880) 2.91 M/ L 3.93-5.22 HEMOGLOBIN (BEAKER) (test rqpn=974) 6.9 GM/DL 11.2-15.7 HEMATOCRIT (BEAKER) (test sptq=889) 21.2 % 34.1-44.9 MEAN CORPUSCULAR VOLUME (BEAKER) (test bkwk=263) 72.9 fL 79.4-94.8 MEAN CORPUSCULAR HEMOGLOBIN (BEAKER) (test ampk=870) 23.7 pg 25.6-32.2 MEAN CORPUSCULAR HEMOGLOBIN CONC (BEAKER) (test entu=159) 32.5 GM/DL 32.2-35.5 RED CELL DISTRIBUTION WIDTH (BEAKER) (test vtlh=346) 16.9 % 11.7-14.4 PLATELET COUNT (BEAKER) (test hiwy=735) 229 K/CU MM 150-450 MEAN PLATELET VOLUME (BEAKER) (test hihy=323) 10.4 fL 9.4-12.3 NUCLEATED RED BLOOD CELLS (BEAKER) (test omha=131) 2 /100 WBC 0-0 (CELLAVISION MANUAL DIFF)2018-10-17 12:12:00* Test Item Value Reference Range Comments NEUTROPHILS - REL (CELLAVISION)(BEAKER) (test tijf=6524) 66 % LYMPHOCYTES - REL (CELLAVISION)(BEAKER) (test djgv=6292) 26 % MONOCYTES - REL (CELLAVISION)(BEAKER) (test lpoe=1827) 7 % BANDS - REL (CELLAVISION)(BEAKER) (test jrut=3054) 1 % 0-10 NEUTROPHILS - ABS (CELLAVISION)(BEAKER) (test tyyc=3927) 7.39 K/ul 1.56-6.13 LYMPHOCYTES - ABS (CELLAVISION)(BEAKER) (test nnzl=9600) 2.91 K/ul 1.18-3.74 MONOCYTES - ABS (CELLAVISION)(BEAKER) (test eevs=8207) 0.78 K/uL 0.24-0.36 BANDS - ABS (CELLAVISION)(BEAKER) (test vlsg=7141) 0.11 K/uL 0.00-0.80 TOTAL COUNTED (BEAKER) (test zzkh=9603) 100 MANUAL NRBC PER 100 CELLS (BEAKER) (test dtbx=6002) 3 /100 WBC 0-0 WBC MORPHOLOGY (BEAKER) (test dzfh=435) Normal CLUMPED PLATELETS (BEAKER) (test tnhi=913) Present POLYCHROMATOPHILLIC RBCS(BEAKER) (test wjej=121) 2+ moderate HYPOCHROMIA (BEAKER) (test afdq=976) 2+ moderate TARGET CELLS (BEAKER) (test rfpl=333) 2+ moderate SICKLE CELLS (BEAKER) (test uswh=486) 1+ few FERNANDO-JOLLY BODIES (BEAKER) (test jxtv=646) 1+ few ARTIFACT (CELLAVISION)(BEAKER) (test tfdn=6783) Present PLATELET CONCENTRATION (CELLAVISION)(BEAKER) (test dyut=2127) Adequate Received comment: User comments: Slide comments: RETICULOCYTE [id number] 09:17:00* Test Item Value Reference Range Comments RETICULOCYTE COUNT PCT (BEAKER) (test uedx=963) 8.3 % 0.5-1.7 contaminatedThis is a corrected result. Previous result was 8.3 % on 10/17/2018 at 0911 CUSTOMER ENGAGEMENT SPECIALIST BASIC METABOLIC [id number] 08:30:00* Test Item Value Reference Range Comments SODIUM (BEAKER) (test ugom=855) 140 meq/L 136-145 POTASSIUM (BEAKER) (test fbty=649) 3.9 meq/L 3.5-5.1 CHLORIDE (BEAKER) (test jdiw=785) 111 meq/L 98-107 CO2 (BEAKER) (test jivp=841) 23 meq/L 22-29 BLOOD UREA NITROGEN (BEAKER) (test jsax=896) 6 mg/dL 7-21 CREATININE (BEAKER) (test fxrn=629) 0.51 mg/dL 0.57-1.25 GLUCOSE RANDOM (BEAKER) (test yyfk=503) 84 mg/dL 70-105 CALCIUM (BEAKER) (test qoip=020) 8.2 mg/dL 8.4-10.2 EGFR (BEAKER) (test zrik=9667) 183 mL/min/1.73 sq m ESTIMATED GFR IS NOT ACCURATE CREATININE CLEARANCE IN PREDICTING GLOMERULAR FILTRATION RATE. ESTIMATED GFR IS NOT APPLICABLE FOR DIALYSIS PATIENTS. LACTATE DEHYDROGENASE (LDH)2018-10-17 08:21:00* Test Item Value Reference Range Comments LACTATE DEHYDROGENASE (SILAS) (test vqjn=211) 376 U/L 125-220 RAD, CHEST, 1 VIEW, NON [id number] 23:16:00Reason for exam:->SICKLE CELL PAIN CRISISIs the patient ?->NoShould this be performed at the bedside?- >YesFINAL REPORT EXAMINATION: AP PORTABLE CHEST RADIOGRAPH CLINICAL INDICATION: Chest pain, sickle cell pain crisis IMPRESSION: Compared with 08/28/2018. Overall, aeration of the lungs has improved in the interval. Thin reticular opacities are noted in both lungs, most conspicuous at the lung bases. The morphology and distribution favor scarring and/or subsegmental atelectasis. No definite evidence of a discrete pneumonia, pulmonary edema, large pleural effusion or pneumothorax. The heart is borderline enlarged but stable. Mediastinal contours are unchanged. No evidence of a pneumothorax. Signed: Jaylen Posada MDReport Verified Date/Time: 10/16/2018 23:16:17 Reading Location: [address] Reading Room IRATORY PANEL [id number] 13:34:00* Test Item Value Reference Range Comments HUMAN METAPNEUMOVIRUS (BEAKER) (test wvpy=7204) Not detected Not detected, Equivocal RHINOVIRUS (BEAKER) (test lkjz=2973) Not detected Not detected, Equivocal INFLUENZA A (BEAKER) (test fsqm=3012) Not detected Not detected, Equivocal INFLUENZA A (NO SUBTYPE) (test rvmg=1473) Not detected, Equivocal INFLUENZA A SUBTYPE H1 (BEAKER) (test nbgx=9170) Not detected, Equivocal INFLUENZA A SUBTYPE H3 (BEAKER) (test xccj=2212) Not detected, Equivocal INFLUENZA A SUBTYPE H1-2009 (BEAKER) (test tqkg=7166) Not detected, Equivocal INFLUENZA B (BEAKER) (test foei=0249) Not detected Not detected, Equivocal RESPIRATORY SYNCYTIAL VIRUS (BEAKER) (test sshv=4231) Not detected Not detected, Equivocal PARAINFLUENZA VIRUS 1 (BEAKER) (test iqdx=5706) Not detected Not detected, Equivocal PARAINFLUENZA VIRUS 2 (BEAKER) (test mtkx=0207) Not detected Not detected, Equivocal PARAINFLUENZA VIRUS 3 (BEAKER) (test glmr=2185) Not detected Not detected, Equivocal PARAINFLUENZA VIRUS 4 (BEAKER) (test wwan=5725) Not detected Not detected, Equivocal ADENOVIRUS (BEAKER) (test xvqx=7878) Not detected Not detected, Equivocal CORONAVIRUS 229E (BEAKER) (test soxo=5871) Not detected Not detected, Equivocal CORONAVIRUS HKU1 (BEAKER) (test qrsx=3038) Not detected Not detected, Equivocal CORONAVIRUS NL63 (BEAKER) (test bchx=2363) Not detected Not detected, Equivocal CORONAVIRUS OC43 (BEAKER) (test kwfx=5262) Not detected Not detected, Equivocal BORDETELLA PERTUSSIS (BEAKER) (test mdvc=0089) Not detected Not detected, Equivocal CHLAMYDOPHILA PNEUMONIAE (BEAKER) (test tngi=6868) Not detected Not detected, Equivocal MYCOPLASMA PNEUMONIAE (BEAKER) (test httc=8784) Not detected Not detected, Equivocal Other viruses and bacteria not targeted by this PCR panel cannot be excluded; th erefore clinical correlation and follow up of serology, culture results, and oth er molecular studies is required. The results are not intended to be used as the sole means for clinical diagnosis or patient management decisions. This sample was tested at the [facility] using the [employer] rray Respiratory Panel. It is FDA cleared and has been verified and approved by the [facility] for clinical use on nasal swab specim ens. It is not FDA-cleared for use on bronchial wash/lavage samples. However, fo r this sample type, validation was performed and test characteristics were deter mined and approved, by [facility] for clinical use u nder the Clinical Laboratory Improvement Amendments (CLIA) of 1988 requirements. Therefore, FDA clearance is not required. This laboratory is CLIA-certified and [employer] ([employer])-accredited to perform high complexity t esting.LACTIC ACID, VENOUS, WHOLE [id number] 11:00:00* Test Item Value Reference Range Comments LACTATE BLOOD VENOUS (2) (BEAKER) (test vdfm=6940) 0.7 mmol/L 0.5-2.2 [id number] 07:06:00* Test Item Value Reference Range Comments PROCALCITONIN (BEAKER) (test sidv=9065) < ng/mL <0.05 SEPSIS RISK (ng/mL)Low: 0.05-0.50Intermediate: 0.51-2.00High: > =2.01LACTIC ACID, VENOUS, WHOLE [id number] 06:23:00* Test Item Value Reference Range Comments LACTATE BLOOD VENOUS (2) (BEAKER) (test kyuv=5587) 0.7 mmol/L 0.5-2.2 URINALYSIS W/ REFLEX URINE [id number] 03:14:00* Test Item Value Reference Range Comments COLOR (BEAKER) (test tspd=306) Yellow CLARITY (BEAKER) (test uclr=697) Clear SPECIFIC GRAVITY UA (BEAKER) (test grxp=794) 1.008 1.001-1.035 PH UA (BEAKER) (test tmkg=914) 7.5 5.0-8.0 PROTEIN UA (BEAKER) (test hfkt=819) Negative Negative GLUCOSE UA (BEAKER) (test fuyk=079) Negative Negative KETONES UA (BEAKER) (test dmpx=084) Negative Negative BILIRUBIN UA (BEAKER) (test leos=700) Negative Negative BLOOD UA (BEAKER) (test fwvv=173) Negative Negative NITRITE UA (BEAKER) (test txgv=251) Negative Negative LEUKOCYTE ESTERASE UA (BEAKER) (test zgmx=201) Negative Negative UROBILINOGEN UA (BEAKER) (test bkod=500) 0.2 mg/dL 0.2-1.0 RBC UA (BEAKER) (test dqsa=610) < /HPF WBC UA (BEAKER) (test cotw=329) 1 /HPF BACTERIA (BEAKER) (test boqf=010) Rare MUCUS (BEAKER) (test kzsq=1487) Rare SQUAMOUS EPITHELIAL (BEAKER) (test rgqw=309) 1 /HPF AMORPHOUS CRYSTALS (BEAKER) (test btgs=3701) Rare SOURCE(BEAKER) (test ytcu=4383) SCREEN, [id number] 03:12:00* Test Item Value Reference Range Comments TEST URINE (BEAKER) (test yihh=466) Negative [id number] 02:51:00* Test Item Value Reference Range Comments PHOSPHORUS (BEAKER) (test xlfi=252) 4.4 mg/dL 2.3-4.7 [id number] 02:51:00* Test Item Value Reference Range Comments MAGNESIUM (BEAKER) (test gqfg=219) 2.8 mg/dL 1.6-2.6 COMPREHENSIVE METABOLIC [id number] 02:51:00* Test Item Value Reference Range Comments TOTAL PROTEIN (BEAKER) (test zgjd=528) 7.7 gm/dL 6.0-8.3 ALBUMIN (BEAKER) (test alsp=6892) 5.0 g/dL 3.5-5.0 ALKALINE PHOSPHATASE (BEAKER) (test slht=818) 64 U/L 40-150 BILIRUBIN TOTAL (BEAKER) (test krrt=186) 1.9 mg/dL 0.2-1.2 SODIUM (BEAKER) (test vhzm=314) 140 meq/L 136-145 POTASSIUM (BEAKER) (test mgbo=191) 4.4 meq/L 3.5-5.1 CHLORIDE (BEAKER) (test xbvh=425) 108 meq/L 98-107 CO2 (BEAKER) (test kmow=762) 24 meq/L 22-29 BLOOD UREA NITROGEN (BEAKER) (test oqur=433) 5 mg/dL 7-21 CREATININE (BEAKER) (test eymq=742) 0.60 mg/dL 0.57-1.25 GLUCOSE RANDOM (BEAKER) (test rfru=259) 95 mg/dL 70-105 CALCIUM (BEAKER) (test yevt=071) 9.9 mg/dL 8.4-10.2 AST (SGOT) (BEAKER) (test fozs=824) 30 U/L 5-34 ALT (SGPT) (BEAKER) (test jedf=516) 12 U/L 6-55 EGFR (BEAKER) (test vlpp=5854) 152 mL/min/1.73 sq m ESTIMATED GFR IS NOT ACCURATE CREATININE CLEARANCE IN PREDICTING GLOMERULAR FILTRATION RATE. ESTIMATED GFR IS NOT APPLICABLE FOR DIALYSIS PATIENTS. LACTATE DEHYDROGENASE (LDH)2018-10-16 02:51:00* Test Item Value Reference Range Comments LACTATE DEHYDROGENASE (BEAKER) (test jdok=468) 426 U/L 125-220 [id number] 02:39:00* Test Item Value Reference Range Comments PROTIME (BEAKER) (test tdaw=498) 14.9 seconds 11.7-14.7 INR (BEAKER) (test ejgf=579) 1.2 <=5.9 PARTIAL THROMBOPLASTIN TIME (BEAKER) (test iggt=984) 28.4 seconds 22.5-36.0 RECOMMENDED COUMADIN/WARFARIN INR THERAPY RANGESSTANDARD DOSE: 2.0 - 3.0 Inclu emma: PROPHYLAXIS for venous thrombosis, systemic embolization; TREATMENT for kim ous thrombosis and/or pulmonary embolus.HIGH RISK: Target INR is 2.5-3.5 for pat ients with mechanical heart valves.POCT-LACTIC ACID, [id number] 02:34:00* Test Item Value Reference Range Comments POC-LACTIC ACID, VENOUS (BEAKER) (test jnyx=8514) 0.5 mmol/L 0.9-1.7 TESTED AT [facility] [address] [facility] [address] CBC W/PLT COUNT & AUTO [id number] 02:18:00* Test Item Value Reference Range Comments WHITE BLOOD CELL COUNT (BEAKER) (test nfab=416) 18.4 K/ L 3.5-10.5 RED BLOOD CELL COUNT (BEAKER) (test frmh=339) 3.86 M/ L 3.93-5.22 HEMOGLOBIN (BEAKER) (test wiej=967) 8.8 GM/DL 11.2-15.7 HEMATOCRIT (BEAKER) (test ecja=588) 27.8 % 34.1-44.9 MEAN CORPUSCULAR VOLUME (BEAKER) (test ywtc=677) 72.0 fL 79.4-94.8 MEAN CORPUSCULAR HEMOGLOBIN (BEAKER) (test xiih=801) 22.8 pg 25.6-32.2 MEAN CORPUSCULAR HEMOGLOBIN CONC (BEAKER) (test jmqh=262) 31.7 GM/DL 32.2-35.5 RED CELL DISTRIBUTION WIDTH (BEAKER) (test sthj=519) 16.9 % 11.7-14.4 PLATELET COUNT (BEAKER) (test gqdx=712) 314 K/CU MM 150-450 MEAN PLATELET VOLUME (BEAKER) (test kqso=212) 10.3 fL 9.4-12.3 NUCLEATED RED BLOOD CELLS (BEAKER) (test eixx=964) 3 /100 WBC 0-0 NEUTROPHILS RELATIVE PERCENT (BEAKER) (test mmjw=278) 64 % LYMPHOCYTES RELATIVE PERCENT (BEAKER) (test rfeb=646) 22 % MONOCYTES RELATIVE PERCENT (BEAKER) (test kuxh=205) 10 % EOSINOPHILS RELATIVE PERCENT (BEAKER) (test xktj=494) 1 % BASOPHILS RELATIVE PERCENT (BEAKER) (test iust=002) 1 % NEUTROPHILS ABSOLUTE COUNT (BEAKER) (test bjxo=730) 11.82 K/ L 1.56-6.13 LYMPHOCYTES ABSOLUTE COUNT (BEAKER) (test ievn=365) 3.96 K/ L 1.18-3.74 MONOCYTES ABSOLUTE COUNT (BEAKER) (test nwwb=385) 1.91 K/ L 0.24-0.36 EOSINOPHILS ABSOLUTE COUNT (BEAKER) (test tjal=653) 0.11 K/ L 0.04-0.36 BASOPHILS ABSOLUTE COUNT (BEAKER) (test ngkj=925) 0.24 K/ L 0.01-0.08 IMMATURE GRANULOCYTES-RELATIVE PERCENT (BEAKER) (test cxye=0821) 2 % 0-1 RETICULOCYTE [id number] 02:17:00* Test Item Value Reference Range Comments RETICULOCYTE COUNT PCT (BEAKER) (test kiye=863) 7.8 % 0.5-1.7 CBC W/PLT COUNT & AUTO [id number] 11:50:00* Test Item Value Reference Range Comments WHITE BLOOD CELL COUNT (BEAKER) (test ngnq=492) 11.1 K/ L 3.5-10.5 RED BLOOD CELL COUNT (BEAKER) (test jvbe=179) 3.10 M/ L 3.93-5.22 HEMOGLOBIN (BEAKER) (test vhiz=035) 7.4 GM/DL 11.2-15.7 HEMATOCRIT (BEAKER) (test glxu=001) 23.9 % 34.1-44.9 MEAN CORPUSCULAR VOLUME (BEAKER) (test xbhb=605) 77.1 fL 79.4-94.8 MEAN CORPUSCULAR HEMOGLOBIN (BEAKER) (test nhiv=460) 23.9 pg 25.6-32.2 MEAN CORPUSCULAR HEMOGLOBIN CONC (BEAKER) (test fdac=674) 31.0 GM/DL 32.2-35.5 RED CELL DISTRIBUTION WIDTH (BEAKER) (test oqjc=799) 20.2 % 11.7-14.4 PLATELET COUNT (BEAKER) (test qxvp=926) 263 K/CU MM 150-450 MEAN PLATELET VOLUME (BEAKER) (test zrdo=559) 10.0 fL 9.4-12.3 NUCLEATED RED BLOOD CELLS (BEAKER) (test xobb=925) 2 /100 WBC 0-0 (CELLAVISION MANUAL DIFF)2018-08-30 11:50:00* Test Item Value Reference Range Comments NEUTROPHILS - REL (CELLAVISION)(BEAKER) (test nvbf=1265) 78 % LYMPHOCYTES - REL (CELLAVISION)(BEAKER) (test csdz=2808) 12 % MONOCYTES - REL (CELLAVISION)(BEAKER) (test kbhu=2400) 6 % BASOPHILS - REL (CELLAVISION)(BEAKER) (test xmnt=3127) 2 % MYELOCYTES - REL (CELLAVISION)(BEAKER) (test hcjb=3210) 1 % 0-0 BANDS - REL (CELLAVISION)(BEAKER) (test islw=8485) 1 % 0-10 NEUTROPHILS - ABS (CELLAVISION)(BEAKER) (test xbcl=3218) 8.66 K/ul 1.56-6.13 LYMPHOCYTES - ABS (CELLAVISION)(BEAKER) (test bxvo=1812) 1.33 K/ul 1.18-3.74 MONOCYTES - ABS (CELLAVISION)(BEAKER) (test weyd=9923) 0.67 K/uL 0.24-0.36 BASOPHILS - ABS (CELLAVISION)(BEAKER) (test ykns=1988) 0.22 K/uL 0.01-0.08 MYELOCYTES-ABS (CELLAVISION)(BEAKER) (test jlbn=0807) 0.11 K/uL 0.00-0.00 BANDS - ABS (CELLAVISION)(BEAKER) (test zbdx=9092) 0.11 K/uL 0.00-0.80 TOTAL COUNTED (BEAKER) (test fgbj=7386) 100 MANUAL NRBC PER 100 CELLS (BEAKER) (test cvpy=9252) 6 /100 WBC 0-0 CLUMPED PLATELETS (BEAKER) (test bufq=181) Present SMUDGE CELLS (BEAKER) (test ckru=3237) Present GIANT PLATELETS (BEAKER) (test sbws=287) Present POLYCHROMATOPHILLIC RBCS(BEAKER) (test mjes=776) 3+ many ANISOCYTOSIS (BEAKER) (test zedj=054) 2+ moderate MICROCYTES (BEAKER) (test dfun=981) 1+ few POIKILOCYTES (BEAKER) (test sgzk=406) 1+ few TARGET CELLS (BEAKER) (test uhlp=601) 1+ few SCHISTOCYTES (BEAKER) (test mzmu=644) 1+ few SICKLE CELLS (BEAKER) (test yreh=098) 2+ moderate ARTIFACT (CELLAVISION)(BEAKER) (test nfkd=7833) Present PLATELET CONCENTRATION (CELLAVISION)(BEAKER) (test vsac=2081) Adequate Received comment: User comments: Slide comments: LACTATE DEHYDROGENASE (LDH) 2018-08-30 06:37:00* Test Item Value Reference Range Comments LACTATE DEHYDROGENASE (BEAKER) (test tzxn=215) 364 U/L 125-220 BASIC METABOLIC [id number] 06:37:00* Test Item Value Reference Range Comments SODIUM (BEAKER) (test susr=784) 141 meq/L 136-145 POTASSIUM (BEAKER) (test wrxo=145) 3.6 meq/L 3.5-5.1 CHLORIDE (BEAKER) (test wjby=783) 110 meq/L 98-107 CO2 (BEAKER) (test hjdf=513) 27 meq/L 22-29 BLOOD UREA NITROGEN (BEAKER) (test vxrm=004) 2 mg/dL 7-21 CREATININE (BEAKER) (test omlm=768) 0.48 mg/dL 0.57-1.25 GLUCOSE RANDOM (BEAKER) (test qlly=020) 93 mg/dL 70-105 CALCIUM (BEAKER) (test pkdx=682) 8.5 mg/dL 8.4-10.2 EGFR (BEAKER) (test dbnh=4689) 196 mL/min/1.73 sq m ESTIMATED GFR IS NOT ACCURATE CREATININE CLEARANCE IN PREDICTING GLOMERULAR FILTRATION RATE. ESTIMATED GFR IS NOT APPLICABLE FOR DIALYSIS PATIENTS. RESPIRATORY PANEL [id number] 06:29:00* Test Item Value Reference Range Comments HUMAN METAPNEUMOVIRUS (BEAKER) (test rtzv=6615) Not detected Not detected, Equivocal RHINOVIRUS (BEAKER) (test zltl=6663) Not detected Not detected, Equivocal INFLUENZA A (BEAKER) (test zqof=8078) Not detected Not detected, Equivocal INFLUENZA A (NO SUBTYPE) (test alnt=3578) Not detected, Equivocal INFLUENZA A SUBTYPE H1 (BEAKER) (test cxgv=7097) Not detected, Equivocal INFLUENZA A SUBTYPE H3 (BEAKER) (test yzlx=4593) Not detected, Equivocal INFLUENZA A SUBTYPE H1-2009 (BEAKER) (test xfwm=7599) Not detected, Equivocal INFLUENZA B (BEAKER) (test pfec=4564) Not detected Not detected, Equivocal RESPIRATORY SYNCYTIAL VIRUS (BEAKER) (test hiia=8238) Not detected Not detected, Equivocal PARAINFLUENZA VIRUS 1 (BEAKER) (test lhcg=6967) Not detected Not detected, Equivocal PARAINFLUENZA VIRUS 2 (BEAKER) (test nqww=5656) Not detected Not detected, Equivocal PARAINFLUENZA VIRUS 3 (BEAKER) (test cqcl=0164) Not detected Not detected, Equivocal PARAINFLUENZA VIRUS 4 (BEAKER) (test zdxh=4264) Not detected Not detected, Equivocal ADENOVIRUS (BEAKER) (test ggpu=8297) Not detected Not detected, Equivocal CORONAVIRUS 229E (BEAKER) (test lpye=1410) Not detected Not detected, Equivocal CORONAVIRUS HKU1 (BEAKER) (test wkso=2848) Not detected Not detected, Equivocal CORONAVIRUS NL63 (BEAKER) (test igyf=4119) Not detected Not detected, Equivocal CORONAVIRUS OC43 (BEAKER) (test ngca=6036) Not detected Not detected, Equivocal BORDETELLA PERTUSSIS (BEAKER) (test bhez=8642) Not detected Not detected, Equivocal CHLAMYDOPHILA PNEUMONIAE (BEAKER) (test mref=9427) Not detected Not detected, Equivocal MYCOPLASMA PNEUMONIAE (BEAKER) (test rqjy=9577) Not detected Not detected, Equivocal Other viruses and bacteria not targeted by this PCR panel cannot be excluded; th erefore clinical correlation and follow up of serology, culture results, and oth er molecular studies is required. The results are not intended to be used as the sole means for clinical diagnosis or patient management decisions. This sample was tested at the [facility] using the [employer] rray Respiratory Panel. It is FDA cleared and has been verified and approved by the [facility] for clinical use on nasal swab specim ens. It is not FDA-cleared for use on bronchial wash/lavage samples. However, fo r this sample type, validation was performed and test characteristics were deter mined and approved, by [facility] for clinical use u nder the Clinical Laboratory Improvement Amendments (CLIA) of 1988 requirements. Therefore, FDA clearance is not required. This laboratory is CLIA-certified and [employer] (CAP)-accredited to perform high complexity t esting.RETICULOCYTE [id number] 06:20:00* Test Item Value Reference Range Comments RETICULOCYTE COUNT PCT (BEAKER) (test zgoi=558) 12.5 % 0.5-1.7 LACTATE DEHYDROGENASE (LDH)2018-08-29 04:45:00* Test Item Value Reference Range Comments LACTATE DEHYDROGENASE (BEAKER) (test ncuj=276) 375 U/L 125-220 RETICULOCYTE [id number] 04:27:00* Test Item Value Reference Range Comments RETICULOCYTE COUNT PCT (BEAKER) (test fces=243) 10.8 % 0.5-1.7 CBC W/PLT COUNT & AUTO [id number] 04:27:00* Test Item Value Reference Range Comments WHITE BLOOD CELL COUNT (BEAKER) (test rvua=961) 14.4 K/ L 3.5-10.5 RED BLOOD CELL COUNT (BEAKER) (test ibnz=756) 3.12 M/ L 3.93-5.22 HEMOGLOBIN (BEAKER) (test pyaw=102) 7.6 GM/DL 11.2-15.7 HEMATOCRIT (BEAKER) (test zpen=519) 23.3 % 34.1-44.9 MEAN CORPUSCULAR VOLUME (BEAKER) (test tkom=078) 74.7 fL 79.4-94.8 MEAN CORPUSCULAR HEMOGLOBIN (BEAKER) (test hgcl=517) 24.4 pg 25.6-32.2 MEAN CORPUSCULAR HEMOGLOBIN CONC (BEAKER) (test lvkj=568) 32.6 GM/DL 32.2-35.5 RED CELL DISTRIBUTION WIDTH (BEAKER) (test vstv=838) 20.0 % 11.7-14.4 PLATELET COUNT (BEAKER) (test juak=515) 279 K/CU MM 150-450 MEAN PLATELET VOLUME (BEAKER) (test tbvc=007) 9.6 fL 9.4-12.3 NUCLEATED RED BLOOD CELLS (BEAKER) (test fjzd=769) 2 /100 WBC 0-0 NEUTROPHILS RELATIVE PERCENT (BEAKER) (test ldso=416) 83 % LYMPHOCYTES RELATIVE PERCENT (BEAKER) (test pemh=847) 8 % MONOCYTES RELATIVE PERCENT (BEAKER) (test kgsp=914) 9 % EOSINOPHILS RELATIVE PERCENT (BEAKER) (test duwj=956) 0 % BASOPHILS RELATIVE PERCENT (BEAKER) (test sapl=305) 0 % NEUTROPHILS ABSOLUTE COUNT (BEAKER) (test cpdx=449) 11.90 K/ L 1.56-6.13 LYMPHOCYTES ABSOLUTE COUNT (BEAKER) (test ekuj=144) 1.10 K/ L 1.18-3.74 MONOCYTES ABSOLUTE COUNT (BEAKER) (test eikv=466) 1.29 K/ L 0.24-0.36 EOSINOPHILS ABSOLUTE COUNT (BEAKER) (test ixjj=332) 0.05 K/ L 0.04-0.36 BASOPHILS ABSOLUTE COUNT (BEAKER) (test nabq=719) 0.03 K/ L 0.01-0.08 IMMATURE GRANULOCYTES-RELATIVE PERCENT (BEAKER) (test zgzg=2345) 1 % 0-1 RAD, CHEST, 1 VIEW, NON [id number] 15:11:00Reason for exam:->pt c/o new chest pain, chillsShould this be performed at the bedside?->YesFINAL REPORT TECHNIQUE: Frontal chest radiograph dated 08/28/2018. CLINICAL HISTORY: Chest pain with chills COMPARISON STUDY: Chest radiograph dated 08/27/2018 IMPRESSION:Left-sided PICC is unchanged. There has been interval progression of bilateral airspace disease. Lungs No pleural effusion or p neumothorax. Cardiomediastinal silhouette is normal in size. There is depression of the superior and inferior endplates of the vertebral bodies compatible with sickle cell disease. Signed: Muna Hickseport Verified Date/Time: 15:11:43 Reading Location: [facility] Radiology Reading Room W/PLT COUNT & AUTO [id number] 12:07:00* Test Item Value Reference Range Comments WHITE BLOOD CELL COUNT (BEAKER) (test slgi=314) 10.1 K/ L 3.5-10.5 RED BLOOD CELL COUNT (BEAKER) (test tvkx=204) 3.09 M/ L 3.93-5.22 HEMOGLOBIN (BEAKER) (test dfqz=599) 7.4 GM/DL 11.2-15.7 HEMATOCRIT (BEAKER) (test cyqv=274) 23.4 % 34.1-44.9 MEAN CORPUSCULAR VOLUME (BEAKER) (test ifow=407) 75.7 fL 79.4-94.8 MEAN CORPUSCULAR HEMOGLOBIN (BEAKER) (test uiyr=344) 23.9 pg 25.6-32.2 MEAN CORPUSCULAR HEMOGLOBIN CONC (BEAKER) (test cpfk=749) 31.6 GM/DL 32.2-35.5 RED CELL DISTRIBUTION WIDTH (BEAKER) (test rxak=877) 19.9 % 11.7-14.4 PLATELET COUNT (BEAKER) (test npdo=332) 267 K/CU MM 150-450 MEAN PLATELET VOLUME (BEAKER) (test ogqg=154) 10.1 fL 9.4-12.3 NUCLEATED RED BLOOD CELLS (BEAKER) (test wlqr=073) 4 /100 WBC 0-0 (CELLAVISION MANUAL DIFF)2018-08-28 12:07:00* Test Item Value Reference Range Comments NEUTROPHILS - REL (CELLAVISION)(BEAKER) (test soxl=9101) 65 % LYMPHOCYTES - REL (CELLAVISION)(BEAKER) (test nxqe=5368) 24 % MONOCYTES - REL (CELLAVISION)(BEAKER) (test usso=0734) 6 % EOSINOPHILS - REL (CELLAVISION)(BEAKER) (test xubt=9103) 3 % BANDS - REL (CELLAVISION)(BEAKER) (test oiku=9311) 1 % 0-10 ATYPICAL LYMPHOCYTES - REL (CELLAVISION)(BEAKER) (test xtxj=7115) 1 % 0-0 NEUTROPHILS - ABS (CELLAVISION)(BEAKER) (test pkzf=6321) 6.57 K/ul 1.56-6.13 LYMPHOCYTES - ABS (CELLAVISION)(BEAKER) (test dwhi=1922) 2.42 K/ul 1.18-3.74 MONOCYTES - ABS (CELLAVISION)(BEAKER) (test fpxf=2447) 0.61 K/uL 0.24-0.36 EOSINOPHILS - ABS (CELLAVISION)(BEAKER) (test daoe=7982) 0.30 K/uL 0.04-0.36 BANDS - ABS (CELLAVISION)(BEAKER) (test gogo=1792) 0.10 K/uL 0.00-0.80 ATYPICAL LYMPHOCYTES - ABS (CELLAVISION)(BEAKER) (test faes=4492) 0.10 K/uL 0.00-0.00 TOTAL COUNTED (BEAKER) (test ibsg=4410) 100 MANUAL NRBC PER 100 CELLS (BEAKER) (test cmuc=9891) 12 /100 WBC 0-0 WBC MORPHOLOGY (BEAKER) (test sobb=892) Normal PLT MORPHOLOGY (BEAKER) (test boxw=762) Normal POLYCHROMATOPHILLIC RBCS(BEAKER) (test eclj=840) 2+ moderate ANISOCYTOSIS (BEAKER) (test pwxz=958) 2+ moderate MICROCYTES (BEAKER) (test yils=099) 1+ few POIKILOCYTES (BEAKER) (test mbak=236) 1+ few TARGET CELLS (BEAKER) (test qiqi=665) 1+ few SICKLE CELLS (BEAKER) (test ibgv=304) 1+ few ARTIFACT (CELLAVISION)(BEAKER) (test fnqq=0325) Present PLATELET CONCENTRATION (CELLAVISION)(BEAKER) (test akjz=1172) Adequate Received comment: User comments: Slide comments: LACTATE DEHYDROGENASE (LDH) 2018-08-28 06:25:00* Test Item Value Reference Range Comments LACTATE DEHYDROGENASE (BEAKER) (test crkd=807) 348 U/L 125-220 BASIC METABOLIC [id number] 06:25:00* Test Item Value Reference Range Comments SODIUM (BEAKER) (test psoh=251) 141 meq/L 136-145 POTASSIUM (BEAKER) (test kmei=602) 3.8 meq/L 3.5-5.1 CHLORIDE (BEAKER) (test jdww=219) 108 meq/L 98-107 CO2 (BEAKER) (test gmfy=099) 28 meq/L 22-29 BLOOD UREA NITROGEN (BEAKER) (test xova=699) 4 mg/dL 7-21 CREATININE (BEAKER) (test lmwn=419) 0.50 mg/dL 0.57-1.25 GLUCOSE RANDOM (BEAKER) (test sjyx=428) 105 mg/dL 70-105 CALCIUM (BEAKER) (test mcim=598) 8.8 mg/dL 8.4-10.2 EGFR (BEAKER) (test fhwd=1659) 187 mL/min/1.73 sq m ESTIMATED GFR IS NOT ACCURATE CREATININE CLEARANCE IN PREDICTING GLOMERULAR FILTRATION RATE. ESTIMATED GFR IS NOT APPLICABLE FOR DIALYSIS PATIENTS. RETICULOCYTE [id number] 06:07:00* Test Item Value Reference Range Comments RETICULOCYTE COUNT PCT (BEAKER) (test rnoo=728) 10.1 % 0.5-1.7 CBC W/PLT COUNT & AUTO [id number] 15:51:00* Test Item Value Reference Range Comments WHITE BLOOD CELL COUNT (BEAKER) (test iozh=242) 9.1 K/ L 3.5-10.5 RED BLOOD CELL COUNT (BEAKER) (test woao=805) 2.35 M/ L 3.93-5.22 HEMOGLOBIN (BEAKER) (test gewo=979) 5.6 GM/DL 11.2-15.7 HEMATOCRIT (BEAKER) (test oagc=347) 17.8 % 34.1-44.9 MEAN CORPUSCULAR VOLUME (BEAKER) (test myxk=081) 75.7 fL 79.4-94.8 MEAN CORPUSCULAR HEMOGLOBIN (BEAKER) (test mibi=837) 23.8 pg 25.6-32.2 MEAN CORPUSCULAR HEMOGLOBIN CONC (BEAKER) (test vlbi=140) 31.5 GM/DL 32.2-35.5 RED CELL DISTRIBUTION WIDTH (BEAKER) (test ygkv=804) 19.4 % 11.7-14.4 PLATELET COUNT (BEAKER) (test tgad=595) 217 K/CU MM 150-450 MEAN PLATELET VOLUME (BEAKER) (test elbo=779) 10.6 fL 9.4-12.3 NUCLEATED RED BLOOD CELLS (BEAKER) (test ywwz=745) 4 /100 WBC 0-0 NEUTROPHILS RELATIVE PERCENT (BEAKER) (test rvsg=900) 43 % LYMPHOCYTES RELATIVE PERCENT (BEAKER) (test nwlm=462) 36 % MONOCYTES RELATIVE PERCENT (BEAKER) (test uwye=778) 17 % EOSINOPHILS RELATIVE PERCENT (BEAKER) (test mxvl=421) 4 % BASOPHILS RELATIVE PERCENT (BEAKER) (test ljvt=731) 0 % NEUTROPHILS ABSOLUTE COUNT (BEAKER) (test mmil=851) 3.91 K/ L 1.56-6.13 LYMPHOCYTES ABSOLUTE COUNT (BEAKER) (test acma=611) 3.23 K/ L 1.18-3.74 MONOCYTES ABSOLUTE COUNT (BEAKER) (test sxpe=642) 1.50 K/ L 0.24-0.36 EOSINOPHILS ABSOLUTE COUNT (BEAKER) (test khof=907) 0.35 K/ L 0.04-0.36 BASOPHILS ABSOLUTE COUNT (BEAKER) (test cteb=997) 0.03 K/ L 0.01-0.08 IMMATURE GRANULOCYTES-RELATIVE PERCENT (BEAKER) (test nmdq=3589) 0 % 0-1 RAD, CHEST, 1 VIEW, NON [id number] 14:56:00Reason for exam:->check picc placement Should this be performed at the bedside?->YesFINAL REPORT AP chest. HISTORY: PICC placement COMPARISON: 08/24/2018 IMPRESSION:Left arm PICC present. Tip at lower SVC. Retraction by 1-2 cm may be more optimal. Stable cardiac silhouette. Mild perihilar opacities. Suspect trace left effusion. No pneumothorax. Signed: Calixto Matias MDReport Verified Date/Time: 08/27/2018 14:56:55 Reading Location: [facility] Reading Room (CELLAVISION MANUAL DIFF)2018-08-27 12:43:00* Test Item Value Reference Range Comments NEUTROPHILS - REL (CELLAVISION)(BEAKER) (test iwil=8029) 41 % LYMPHOCYTES - REL (CELLAVISION)(BEAKER) (test axqn=9444) 41 % MONOCYTES - REL (CELLAVISION)(BEAKER) (test mtsx=7283) 11 % EOSINOPHILS - REL (CELLAVISION)(BEAKER) (test ptin=0271) 2 % BASOPHILS - REL (CELLAVISION)(BEAKER) (test tkem=5203) 2 % ATYPICAL LYMPHOCYTES - REL (CELLAVISION)(BEAKER) (test xttu=9664) 3 % 0-0 NEUTROPHILS - ABS (CELLAVISION)(BEAKER) (test cnnz=4185) 3.77 K/ul 1.56-6.13 LYMPHOCYTES - ABS (CELLAVISION)(BEAKER) (test kfgd=9016) 3.77 K/ul 1.18-3.74 MONOCYTES - ABS (CELLAVISION)(BEAKER) (test fiqe=6740) 1.01 K/uL 0.24-0.36 EOSINOPHILS - ABS (CELLAVISION)(BEAKER) (test pybc=7048) 0.18 K/uL 0.04-0.36 BASOPHILS - ABS (CELLAVISION)(BEAKER) (test awkh=3125) 0.18 K/uL 0.01-0.08 ATYPICAL LYMPHOCYTES - ABS (CELLAVISION)(BEAKER) (test wknw=1637) 0.28 K/uL 0.00-0.00 TOTAL COUNTED (BEAKER) (test ebtq=6377) 100 MANUAL NRBC PER 100 CELLS (BEAKER) (test eavy=3948) 8 /100 WBC 0-0 SMUDGE CELLS (BEAKER) (test vdoc=0311) Present GIANT PLATELETS (BEAKER) (test bken=841) Present POLYCHROMATOPHILLIC RBCS(BEAKER) (test qtlx=065) 2+ moderate HYPOCHROMIA (BEAKER) (test fwvf=927) 1+ few ANISOCYTOSIS (BEAKER) (test sjma=871) 2+ moderate MICROCYTES (BEAKER) (test xwbi=712) 2+ moderate POIKILOCYTES (BEAKER) (test fnfh=071) 1+ few SICKLE CELLS (BEAKER) (test qsgp=879) 1+ few ARTIFACT (CELLAVISION)(BEAKER) (test pwvu=5827) Present PLATELET CONCENTRATION (CELLAVISION)(BEAKER) (test emhc=0009) Adequate Received comment: User comments: Slide comments: RETICULOCYTE [id number] 07:26:00* Test Item Value Reference Range Comments RETICULOCYTE COUNT PCT (BEAKER) (test ttqk=815) 6.0 % 0.5-1.7 CBC W/PLT COUNT & AUTO [id number] 07:13:00* Test Item Value Reference Range Comments WHITE BLOOD CELL COUNT (BEAKER) (test iroa=516) 7.9 K/ L 3.5-10.5 RED BLOOD CELL COUNT (BEAKER) (test gmzq=105) 2.58 M/ L 3.93-5.22 HEMOGLOBIN (BEAKER) (test jxgk=334) 6.0 GM/DL 11.2-15.7 HEMATOCRIT (BEAKER) (test cjuh=277) 19.3 % 34.1-44.9 MEAN CORPUSCULAR VOLUME (BEAKER) (test deen=154) 74.8 fL 79.4-94.8 MEAN CORPUSCULAR HEMOGLOBIN (BEAKER) (test lnwa=543) 23.3 pg 25.6-32.2 MEAN CORPUSCULAR HEMOGLOBIN CONC (BEAKER) (test lkbz=921) 31.1 GM/DL 32.2-35.5 RED CELL DISTRIBUTION WIDTH (BEAKER) (test wmjm=239) 19.4 % 11.7-14.4 PLATELET COUNT (BEAKER) (test ttth=990) 302 K/CU MM 150-450 MEAN PLATELET VOLUME (BEAKER) (test esqm=281) 9.9 fL 9.4-12.3 NUCLEATED RED BLOOD CELLS (BEAKER) (test qius=946) 5 /100 WBC 0-0 NEUTROPHILS RELATIVE PERCENT (BEAKER) (test gxas=364) 45 % LYMPHOCYTES RELATIVE PERCENT (BEAKER) (test avue=543) 36 % MONOCYTES RELATIVE PERCENT (BEAKER) (test jdnx=047) 15 % EOSINOPHILS RELATIVE PERCENT (BEAKER) (test fajb=382) 3 % BASOPHILS RELATIVE PERCENT (BEAKER) (test bcgv=049) 1 % NEUTROPHILS ABSOLUTE COUNT (BEAKER) (test hplo=996) 3.52 K/ L 1.56-6.13 LYMPHOCYTES ABSOLUTE COUNT (BEAKER) (test iemi=859) 2.79 K/ L 1.18-3.74 MONOCYTES ABSOLUTE COUNT (BEAKER) (test cguh=868) 1.19 K/ L 0.24-0.36 EOSINOPHILS ABSOLUTE COUNT (BEAKER) (test oiqw=485) 0.27 K/ L 0.04-0.36 BASOPHILS ABSOLUTE COUNT (BEAKER) (test sknn=092) 0.07 K/ L 0.01-0.08 IMMATURE GRANULOCYTES-RELATIVE PERCENT (BEAKER) (test qvjn=7346) 0 % 0-1 RETICULOCYTE [id number] 07:10:00* Test Item Value Reference Range Comments RETICULOCYTE COUNT PCT (BEAKER) (test rwyd=732) 6.0 % 0.5-1.7 LACTATE DEHYDROGENASE (LDH)2018-08-26 07:07:00* Test Item Value Reference Range Comments LACTATE DEHYDROGENASE (BEAKER) (test zkhr=619) 344 U/L 125-220 CBC W/PLT COUNT & AUTO [id number] 12:35:00* Test Item Value Reference Range Comments WHITE BLOOD CELL COUNT (BEAKER) (test agov=011) 9.2 K/ L 3.5-10.5 RED BLOOD CELL COUNT (BEAKER) (test bmgo=774) 2.75 M/ L 3.93-5.22 HEMOGLOBIN (BEAKER) (test ubmj=098) 6.3 GM/DL 11.2-15.7 HEMATOCRIT (BEAKER) (test gpec=195) 20.6 % 34.1-44.9 MEAN CORPUSCULAR VOLUME (BEAKER) (test sfmu=719) 74.9 fL 79.4-94.8 MEAN CORPUSCULAR HEMOGLOBIN (BEAKER) (test hgmc=905) 22.9 pg 25.6-32.2 MEAN CORPUSCULAR HEMOGLOBIN CONC (BEAKER) (test hbpl=821) 30.6 GM/DL 32.2-35.5 RED CELL DISTRIBUTION WIDTH (BEAKER) (test bjlm=482) 20.2 % 11.7-14.4 PLATELET COUNT (BEAKER) (test bfuf=938) 327 K/CU MM 150-450 MEAN PLATELET VOLUME (BEAKER) (test ecou=964) 9.8 fL 9.4-12.3 NUCLEATED RED BLOOD CELLS (BEAKER) (test ihtp=406) 7 /100 WBC 0-0 (CELLAVISION MANUAL DIFF)2018-08-25 12:35:00* Test Item Value Reference Range Comments NEUTROPHILS - REL (CELLAVISION)(BEAKER) (test iixc=1247) 53 % LYMPHOCYTES - REL (CELLAVISION)(BEAKER) (test pppm=7727) 38 % MONOCYTES - REL (CELLAVISION)(BEAKER) (test ilmi=5121) 5 % EOSINOPHILS - REL (CELLAVISION)(BEAKER) (test inyd=8072) 1 % BASOPHILS - REL (CELLAVISION)(BEAKER) (test hojv=7864) 3 % NEUTROPHILS - ABS (CELLAVISION)(BEAKER) (test yotq=2614) 4.88 K/ul 1.56-6.13 LYMPHOCYTES - ABS (CELLAVISION)(BEAKER) (test ftsy=9322) 3.50 K/ul 1.18-3.74 MONOCYTES - ABS (CELLAVISION)(BEAKER) (test zwxt=7225) 0.46 K/uL 0.24-0.36 EOSINOPHILS - ABS (CELLAVISION)(BEAKER) (test lbny=5990) 0.09 K/uL 0.04-0.36 BASOPHILS - ABS (CELLAVISION)(BEAKER) (test nynj=1575) 0.28 K/uL 0.01-0.08 TOTAL COUNTED (BEAKER) (test pegt=3667) 100 MANUAL NRBC PER 100 CELLS (BEAKER) (test dnxa=4415) 13 /100 WBC 0-0 WBC MORPHOLOGY (BEAKER) (test ltha=671) Normal GIANT PLATELETS (BEAKER) (test arqm=439) Present LARGE PLT(BEAKER) (test bggv=5227) Present POLYCHROMATOPHILLIC RBCS(BEAKER) (test pgpv=231) 2+ moderate HYPOCHROMIA (BEAKER) (test bzmf=527) 3+ many ANISOCYTOSIS (BEAKER) (test kfkr=599) 2+ moderate MICROCYTES (BEAKER) (test esto=030) 3+ many MACROCYTES (BEAKER) (test ztcz=066) 2+ moderate POIKILOCYTES (BEAKER) (test vvlc=794) 3+ many TARGET CELLS (BEAKER) (test ofxg=827) 2+ moderate SCHISTOCYTES (BEAKER) (test psmf=513) 2+ moderate SICKLE CELLS (BEAKER) (test hbgq=775) 3+ many ELLIPTOCYTES (BEAKER) (test lroo=122) 1+ few OVALOCYTES (BEAKER) (test fvqy=600) 1+ few TEAR DROP CELLS (BEAKER) (test ydak=129) 1+ few ACANTHOCYTES (BEAKER) (test rfgp=462) 1+ few ARTIFACT (CELLAVISION)(BEAKER) (test jwgs=2215) Present PLATELET CONCENTRATION (CELLAVISION)(BEAKER) (test uyzd=8614) Adequate Received comment: User comments: Slide comments: LACTATE DEHYDROGENASE (LDH) 2018-08-25 07:29:00* Test Item Value Reference Range Comments LACTATE DEHYDROGENASE (BEAKER) (test bgxq=885) 352 U/L 125-220 BASIC METABOLIC [id number] 07:29:00* Test Item Value Reference Range Comments SODIUM (BEAKER) (test cusv=740) 143 meq/L 136-145 POTASSIUM (BEAKER) (test qald=140) 3.8 meq/L 3.5-5.1 CHLORIDE (BEAKER) (test rwur=904) 107 meq/L 98-107 CO2 (BEAKER) (test chvn=966) 30 meq/L 22-29 BLOOD UREA NITROGEN (BEAKER) (test jjbd=888) 4 mg/dL 7-21 CREATININE (BEAKER) (test aler=481) 0.51 mg/dL 0.57-1.25 GLUCOSE RANDOM (BEAKER) (test tfuk=885) 106 mg/dL 70-105 CALCIUM (BEAKER) (test pihc=487) 8.8 mg/dL 8.4-10.2 EGFR (BEAKER) (test amdt=8379) 183 mL/min/1.73 sq m ESTIMATED GFR IS NOT ACCURATE CREATININE CLEARANCE IN PREDICTING GLOMERULAR FILTRATION RATE. ESTIMATED GFR IS NOT APPLICABLE FOR DIALYSIS PATIENTS. RETICULOCYTE [id number] 06:29:00* Test Item Value Reference Range Comments RETICULOCYTE COUNT PCT (BEAKER) (test gtoo=359) 8.3 % 0.5-1.7 RAD, CHEST, 1 VIEW, NON [id number] 19:47:00Reason for exam:->chest pain and SOBShould this be performed at the bedside?->YesFINAL REPORT HISTORY : chest pain and SOB. Comparison: 08/16/2018 and chest x-rays dating as far back as 08/10/2016. Comment: Single portable view of the chest was obtained. The cardiac silhouette size is enlarged. There is some predominantly linear left basilar airspace disease that may represent atelectasis. Superimposed pneumonitis or aspiration cannot be excluded. There is some mild pulmonary venous congestion. No pneumothorax or pleural effusion is seen. Signed: Denise Santamaria Verified Date/Time: 08/24/2018 19:47:53 Reading Location: [address] Consult Reading Room W/PLT COUNT & AUTO DIFFERENTIAL 2018-08-24 16:55:00* Test Item Value Reference Range Comments WHITE BLOOD CELL COUNT (BEAKER) (test gnic=389) 13.7 K/ L 3.5-10.5 RED BLOOD CELL COUNT (BEAKER) (test uipz=267) 2.88 M/ L 3.93-5.22 HEMOGLOBIN (BEAKER) (test cxbh=484) 6.8 GM/DL 11.2-15.7 HEMATOCRIT (BEAKER) (test edkl=817) 21.6 % 34.1-44.9 MEAN CORPUSCULAR VOLUME (BEAKER) (test xeid=422) 75.0 fL 79.4-94.8 MEAN CORPUSCULAR HEMOGLOBIN (BEAKER) (test asaa=333) 23.6 pg 25.6-32.2 MEAN CORPUSCULAR HEMOGLOBIN CONC (BEAKER) (test xhbx=533) 31.5 GM/DL 32.2-35.5 RED CELL DISTRIBUTION WIDTH (BEAKER) (test mnli=255) 20.5 % 11.7-14.4 PLATELET COUNT (BEAKER) (test sifg=303) 343 K/CU MM 150-450 MEAN PLATELET VOLUME (BEAKER) (test bbnu=504) 9.9 fL 9.4-12.3 NUCLEATED RED BLOOD CELLS (BEAKER) (test pwcc=504) 5 /100 WBC 0-0 (CELLAVISION MANUAL DIFF)2018-08-24 16:55:00* Test Item Value Reference Range Comments NEUTROPHILS - REL (CELLAVISION)(BEAKER) (test jydn=4140) 54 % LYMPHOCYTES - REL (CELLAVISION)(BEAKER) (test fxoe=5937) 28 % MONOCYTES - REL (CELLAVISION)(BEAKER) (test loeo=0064) 10 % EOSINOPHILS - REL (CELLAVISION)(BEAKER) (test pbmn=5811) 3 % BASOPHILS - REL (CELLAVISION)(BEAKER) (test sexl=2768) 4 % ATYPICAL LYMPHOCYTES - REL (CELLAVISION)(BEAKER) (test rbqn=6105) 1 % 0-0 NEUTROPHILS - ABS (CELLAVISION)(BEAKER) (test vjkz=9900) 7.40 K/ul 1.56-6.13 LYMPHOCYTES - ABS (CELLAVISION)(BEAKER) (test yvlq=7125) 3.84 K/ul 1.18-3.74 MONOCYTES - ABS (CELLAVISION)(BEAKER) (test uadk=4285) 1.37 K/uL 0.24-0.36 EOSINOPHILS - ABS (CELLAVISION)(BEAKER) (test xlrn=1496) 0.41 K/uL 0.04-0.36 BASOPHILS - ABS (CELLAVISION)(BEAKER) (test nrad=9751) 0.55 K/uL 0.01-0.08 ATYPICAL LYMPHOCYTES - ABS (CELLAVISION)(BEAKER) (test mgos=6835) 0.14 K/uL 0.00-0.00 TOTAL COUNTED (BEAKER) (test uqps=6023) 100 MANUAL NRBC PER 100 CELLS (BEAKER) (test pcli=2783) 17 /100 WBC 0-0 WBC MORPHOLOGY (BEAKER) (test amot=227) Normal GIANT PLATELETS (BEAKER) (test ymbx=219) Present POLYCHROMATOPHILLIC RBCS(BEAKER) (test nhcp=655) 2+ moderate HYPOCHROMIA (BEAKER) (test jbdb=823) 1+ few ANISOCYTOSIS (BEAKER) (test ksgz=212) 2+ moderate MICROCYTES (BEAKER) (test jfps=393) 2+ moderate POIKILOCYTES (BEAKER) (test bdve=012) 1+ few TARGET CELLS (BEAKER) (test ppao=699) 1+ few SICKLE CELLS (BEAKER) (test fgcy=288) 1+ few SPHEROCYTES (BEAKER) (test kczd=521) 1+ few ARTIFACT (CELLAVISION)(BEAKER) (test zaej=2065) Present PLATELET CONCENTRATION (CELLAVISION)(BEAKER) (test qjaa=5542) Adequate Received comment: User comments: Slide comments: LACTATE DEHYDROGENASE (LDH) 2018-08-24 16:41:00* Test Item Value Reference Range Comments LACTATE DEHYDROGENASE (BEAKER) (test jexf=833) 393 U/L 125-220 RETICULOCYTE [id number] 16:32:00* Test Item Value Reference Range Comments RETICULOCYTE COUNT PCT (BEAKER) (test jtes=841) 8.5 % 0.5-1.7 URINALYSIS W/ REFLEX URINE [id number] 10:37:00* Test Item Value Reference Range Comments COLOR (BEAKER) (test qvwd=475) Light Yellow CLARITY (BEAKER) (test vptb=995) Clear SPECIFIC GRAVITY UA (BEAKER) (test lcur=933) 1.006 1.001-1.035 PH UA (BEAKER) (test ourr=277) 7.5 5.0-8.0 PROTEIN UA (BEAKER) (test gact=953) Negative Negative GLUCOSE UA (BEAKER) (test smcy=029) Negative Negative KETONES UA (BEAKER) (test iihu=309) Negative Negative BILIRUBIN UA (BEAKER) (test keem=656) Negative Negative BLOOD UA (BEAKER) (test fggj=956) Negative Negative NITRITE UA (BEAKER) (test giwp=819) Negative Negative LEUKOCYTE ESTERASE UA (BEAKER) (test iihz=193) Negative Negative UROBILINOGEN UA (BEAKER) (test phfv=345) 0.2 mg/dL 0.2-1.0 RBC UA (BEAKER) (test bccc=491) < /HPF WBC UA (BEAKER) (test ygwd=839) 0 /HPF BACTERIA (BEAKER) (test dnwz=630) Occasional SQUAMOUS EPITHELIAL (BEAKER) (test gsmz=101) < /HPF SOURCE(BEAKER) (test zbsv=8243) CBC W/PLT COUNT & AUTO [id number] 07:59:00* Test Item Value Reference Range Comments WHITE BLOOD CELL COUNT (BEAKER) (test eywh=223) 9.3 K/ L 3.5-10.5 RED BLOOD CELL COUNT (BEAKER) (test lepc=447) 2.75 M/ L 3.93-5.22 HEMOGLOBIN (BEAKER) (test lcuq=954) 6.5 GM/DL 11.2-15.7 HEMATOCRIT (BEAKER) (test zbeu=741) 20.8 % 34.1-44.9 MEAN CORPUSCULAR VOLUME (BEAKER) (test fwtp=550) 75.6 fL 79.4-94.8 MEAN CORPUSCULAR HEMOGLOBIN (BEAKER) (test tisk=352) 23.6 pg 25.6-32.2 MEAN CORPUSCULAR HEMOGLOBIN CONC (BEAKER) (test avle=979) 31.3 GM/DL 32.2-35.5 RED CELL DISTRIBUTION WIDTH (BEAKER) (test nqrf=164) 20.3 % 11.7-14.4 PLATELET COUNT (BEAKER) (test rwov=622) 322 K/CU MM 150-450 MEAN PLATELET VOLUME (BEAKER) (test mcgu=806) 10.1 fL 9.4-12.3 NUCLEATED RED BLOOD CELLS (BEAKER) (test rjqq=363) 5 /100 WBC 0-0 NEUTROPHILS RELATIVE PERCENT (BEAKER) (test eocv=400) 49 % LYMPHOCYTES RELATIVE PERCENT (BEAKER) (test qhgj=503) 30 % MONOCYTES RELATIVE PERCENT (BEAKER) (test odpw=203) 15 % EOSINOPHILS RELATIVE PERCENT (BEAKER) (test ldxe=733) 4 % BASOPHILS RELATIVE PERCENT (BEAKER) (test vrzm=628) 1 % NEUTROPHILS ABSOLUTE COUNT (BEAKER) (test bgds=750) 4.57 K/ L 1.56-6.13 LYMPHOCYTES ABSOLUTE COUNT (BEAKER) (test jlvx=219) 2.78 K/ L 1.18-3.74 MONOCYTES ABSOLUTE COUNT (BEAKER) (test ucxy=427) 1.36 K/ L 0.24-0.36 EOSINOPHILS ABSOLUTE COUNT (BEAKER) (test wmtc=652) 0.41 K/ L 0.04-0.36 BASOPHILS ABSOLUTE COUNT (BEAKER) (test fpcn=029) 0.07 K/ L 0.01-0.08 IMMATURE GRANULOCYTES-RELATIVE PERCENT (BEAKER) (test qpyx=4278) 1 % 0-1 RETICULOCYTE [id number] 07:59:00* Test Item Value Reference Range Comments RETICULOCYTE COUNT PCT (BEAKER) (test iajk=428) 7.6 % 0.5-1.7 LACTATE DEHYDROGENASE (LDH)2018-08-23 07:30:00* Test Item Value Reference Range Comments LACTATE DEHYDROGENASE (BEAKER) (test ewgw=065) 406 U/L 125-220 LACTATE DEHYDROGENASE (LDH)2018-08-22 09:54:00* Test Item Value Reference Range Comments LACTATE DEHYDROGENASE (BEAKER) (test ttew=136) 464 U/L 125-220 HEPATIC FUNCTION [id number] 09:54:00* Test Item Value Reference Range Comments TOTAL PROTEIN (BEAKER) (test pivz=901) 6.6 gm/dL 6.0-8.3 ALBUMIN (BEAKER) (test ukpj=6846) 4.0 g/dL 3.5-5.0 BILIRUBIN TOTAL (BEAKER) (test zivz=848) 1.0 mg/dL 0.2-1.2 BILIRUBIN DIRECT (BEAKER) (test wyon=586) 0.4 mg/dL 0.1-0.5 ALKALINE PHOSPHATASE (BEAKER) (test yxyt=666) 103 U/L 40-150 AST (SGOT) (BEAKER) (test fonm=276) 42 U/L 5-34 ALT (SGPT) (BEAKER) (test tbyx=999) 19 U/L 6-55 RETICULOCYTE [id number] 07:28:00* Test Item Value Reference Range Comments RETICULOCYTE COUNT PCT (BEAKER) (test zmde=423) 7.0 % 0.5-1.7 CBC W/PLT COUNT & AUTO [id number] 07:28:00* Test Item Value Reference Range Comments WHITE BLOOD CELL COUNT (BEAKER) (test ueuh=042) 8.6 K/ L 3.5-10.5 RED BLOOD CELL COUNT (BEAKER) (test kkcc=347) 2.87 M/ L 3.93-5.22 HEMOGLOBIN (BEAKER) (test iveg=011) 6.8 GM/DL 11.2-15.7 HEMATOCRIT (BEAKER) (test yfut=602) 21.9 % 34.1-44.9 MEAN CORPUSCULAR VOLUME (BEAKER) (test nhtd=828) 76.3 fL 79.4-94.8 MEAN CORPUSCULAR HEMOGLOBIN (BEAKER) (test wpoh=894) 23.7 pg 25.6-32.2 MEAN CORPUSCULAR HEMOGLOBIN CONC (BEAKER) (test jqur=615) 31.1 GM/DL 32.2-35.5 RED CELL DISTRIBUTION WIDTH (BEAKER) (test oivy=600) 20.0 % 11.7-14.4 PLATELET COUNT (BEAKER) (test jgup=032) 279 K/CU MM 150-450 MEAN PLATELET VOLUME (BEAKER) (test wldf=849) 9.9 fL 9.4-12.3 NUCLEATED RED BLOOD CELLS (BEAKER) (test wcsh=522) 4 /100 WBC 0-0 NEUTROPHILS RELATIVE PERCENT (BEAKER) (test qqfb=957) 43 % LYMPHOCYTES RELATIVE PERCENT (BEAKER) (test bmuq=364) 36 % MONOCYTES RELATIVE PERCENT (BEAKER) (test ldvm=107) 14 % EOSINOPHILS RELATIVE PERCENT (BEAKER) (test riqt=082) 5 % BASOPHILS RELATIVE PERCENT (BEAKER) (test ygor=736) 1 % NEUTROPHILS ABSOLUTE COUNT (BEAKER) (test pfmd=472) 3.73 K/ L 1.56-6.13 LYMPHOCYTES ABSOLUTE COUNT (BEAKER) (test wikp=094) 3.14 K/ L 1.18-3.74 MONOCYTES ABSOLUTE COUNT (BEAKER) (test mbay=786) 1.21 K/ L 0.24-0.36 EOSINOPHILS ABSOLUTE COUNT (BEAKER) (test ccxw=615) 0.39 K/ L 0.04-0.36 BASOPHILS ABSOLUTE COUNT (BEAKER) (test evlx=993) 0.11 K/ L 0.01-0.08 IMMATURE GRANULOCYTES-RELATIVE PERCENT (BEAKER) (test xwdw=0887) 1 % 0-1 HEMOGLOBIN AND [id number] 23:40:00* Test Item Value Reference Range Comments HEMOGLOBIN (BEAKER) (test spgy=141) 6.4 GM/DL 11.2-15.7 HEMATOCRIT (BEAKER) (test guxp=205) 20.4 % 34.1-44.9 BLOOD [id number] 18:01:00* Test Item Value Reference Range Comments CULTURE (BEAKER) (test whkb=1434) No growth in 5 days BLOOD [id number] 18:01:00* Test Item Value Reference Range Comments CULTURE (BEAKER) (test gykv=8409) No growth in 5 days CBC W/PLT COUNT & AUTO [id number] 07:40:00* Test Item Value Reference Range Comments WHITE BLOOD CELL COUNT (BEAKER) (test mzdd=134) 9.9 K/ L 3.5-10.5 RED BLOOD CELL COUNT (BEAKER) (test wrfx=243) 2.51 M/ L 3.93-5.22 HEMOGLOBIN (BEAKER) (test aely=415) 5.9 GM/DL 11.2-15.7 HEMATOCRIT (BEAKER) (test xeui=087) 18.9 % 34.1-44.9 MEAN CORPUSCULAR VOLUME (BEAKER) (test epma=027) 75.3 fL 79.4-94.8 MEAN CORPUSCULAR HEMOGLOBIN (BEAKER) (test nqri=939) 23.5 pg 25.6-32.2 MEAN CORPUSCULAR HEMOGLOBIN CONC (BEAKER) (test cxzn=750) 31.2 GM/DL 32.2-35.5 RED CELL DISTRIBUTION WIDTH (BEAKER) (test wskp=371) 19.8 % 11.7-14.4 PLATELET COUNT (BEAKER) (test nyxh=994) 228 K/CU MM 150-450 MEAN PLATELET VOLUME (BEAKER) (test uvke=712) 10.1 fL 9.4-12.3 NUCLEATED RED BLOOD CELLS (BEAKER) (test qgir=326) 2 /100 WBC 0-0 NEUTROPHILS RELATIVE PERCENT (BEAKER) (test tfep=295) 61 % LYMPHOCYTES RELATIVE PERCENT (BEAKER) (test zhvb=172) 23 % MONOCYTES RELATIVE PERCENT (BEAKER) (test lvve=396) 13 % EOSINOPHILS RELATIVE PERCENT (BEAKER) (test xfag=849) 3 % BASOPHILS RELATIVE PERCENT (BEAKER) (test wyjg=697) 1 % NEUTROPHILS ABSOLUTE COUNT (BEAKER) (test euax=232) 6.02 K/ L 1.56-6.13 LYMPHOCYTES ABSOLUTE COUNT (BEAKER) (test mgno=836) 2.24 K/ L 1.18-3.74 MONOCYTES ABSOLUTE COUNT (BEAKER) (test bgzi=918) 1.24 K/ L 0.24-0.36 EOSINOPHILS ABSOLUTE COUNT (BEAKER) (test gyqd=059) 0.34 K/ L 0.04-0.36 BASOPHILS ABSOLUTE COUNT (BEAKER) (test kvwi=336) 0.06 K/ L 0.01-0.08 IMMATURE GRANULOCYTES-RELATIVE PERCENT (BEAKER) (test cumt=3520) 0 % 0-1 RETICULOCYTE [id number] 06:58:00* Test Item Value Reference Range Comments RETICULOCYTE COUNT PCT (BEAKER) (test vxsb=787) 4.9 % 0.5-1.7 CBC W/PLT COUNT & AUTO [id number] 05:53:00* Test Item Value Reference Range Comments WHITE BLOOD CELL COUNT (BEAKER) (test allx=379) 8.2 K/ L 3.5-10.5 RED BLOOD CELL COUNT (BEAKER) (test gyxa=146) 2.84 M/ L 3.93-5.22 HEMOGLOBIN (BEAKER) (test eipg=789) 6.6 GM/DL 11.2-15.7 HEMATOCRIT (BEAKER) (test oftt=444) 21.8 % 34.1-44.9 MEAN CORPUSCULAR VOLUME (BEAKER) (test fexh=126) 76.8 fL 79.4-94.8 MEAN CORPUSCULAR HEMOGLOBIN (BEAKER) (test hqas=352) 23.2 pg 25.6-32.2 MEAN CORPUSCULAR HEMOGLOBIN CONC (BEAKER) (test anhp=048) 30.3 GM/DL 32.2-35.5 RED CELL DISTRIBUTION WIDTH (BEAKER) (test jmid=599) 19.1 % 11.7-14.4 PLATELET COUNT (BEAKER) (test lkqv=083) 278 K/CU MM 150-450 MEAN PLATELET VOLUME (BEAKER) (test yrnp=470) 10.4 fL 9.4-12.3 NUCLEATED RED BLOOD CELLS (BEAKER) (test phjr=518) 2 /100 WBC 0-0 NEUTROPHILS RELATIVE PERCENT (BEAKER) (test vupv=020) 48 % LYMPHOCYTES RELATIVE PERCENT (BEAKER) (test vonb=386) 35 % MONOCYTES RELATIVE PERCENT (BEAKER) (test tdsz=839) 12 % EOSINOPHILS RELATIVE PERCENT (BEAKER) (test ytxu=401) 4 % BASOPHILS RELATIVE PERCENT (BEAKER) (test fixv=277) 1 % NEUTROPHILS ABSOLUTE COUNT (BEAKER) (test lewj=340) 3.98 K/ L 1.56-6.13 LYMPHOCYTES ABSOLUTE COUNT (BEAKER) (test rtgd=765) 2.83 K/ L 1.18-3.74 MONOCYTES ABSOLUTE COUNT (BEAKER) (test jhvi=095) 1.02 K/ L 0.24-0.36 EOSINOPHILS ABSOLUTE COUNT (BEAKER) (test xqln=635) 0.30 K/ L 0.04-0.36 BASOPHILS ABSOLUTE COUNT (BEAKER) (test vhms=436) 0.04 K/ L 0.01-0.08 IMMATURE GRANULOCYTES-RELATIVE PERCENT (BEAKER) (test eqsm=5896) 1 % 0-1 BASIC METABOLIC [id number] 08:47:00* Test Item Value Reference Range Comments SODIUM (BEAKER) (test mcty=264) 143 meq/L 136-145 POTASSIUM (BEAKER) (test alkk=904) 3.9 meq/L 3.5-5.1 Specimen slightly hemolyzed CHLORIDE (BEAKER) (test ruxp=022) 105 meq/L 98-107 CO2 (BEAKER) (test agff=932) 29 meq/L 22-29 BLOOD UREA NITROGEN (BEAKER) (test bvqh=383) 4 mg/dL 7-21 CREATININE (BEAKER) (test sqay=499) 0.55 mg/dL 0.57-1.25 Specimen slightly hemolyzed GLUCOSE RANDOM (BEAKER) (test emiu=544) 102 mg/dL 70-105 CALCIUM (BEAKER) (test dtoo=147) 9.2 mg/dL 8.4-10.2 EGFR (BEAKER) (test oluh=0025) 168 mL/min/1.73 sq m ESTIMATED GFR IS NOT ACCURATE CREATININE CLEARANCE IN PREDICTING GLOMERULAR FILTRATION RATE. ESTIMATED GFR IS NOT APPLICABLE FOR DIALYSIS PATIENTS. RETICULOCYTE [id number] 08:18:00* Test Item Value Reference Range Comments RETICULOCYTE COUNT PCT (BEAKER) (test ldjx=646) 4.5 % 0.5-1.7 CBC W/PLT COUNT & AUTO [id number] 06:56:00* Test Item Value Reference Range Comments WHITE BLOOD CELL COUNT (BEAKER) (test gezw=818) 7.7 K/ L 3.5-10.5 RED BLOOD CELL COUNT (BEAKER) (test zdhw=401) 2.91 M/ L 3.93-5.22 HEMOGLOBIN (BEAKER) (test esax=580) 6.8 GM/DL 11.2-15.7 HEMATOCRIT (BEAKER) (test quuu=708) 22.0 % 34.1-44.9 MEAN CORPUSCULAR VOLUME (BEAKER) (test ljbv=221) 75.6 fL 79.4-94.8 MEAN CORPUSCULAR HEMOGLOBIN (BEAKER) (test tfyz=605) 23.4 pg 25.6-32.2 MEAN CORPUSCULAR HEMOGLOBIN CONC (BEAKER) (test afde=618) 30.9 GM/DL 32.2-35.5 RED CELL DISTRIBUTION WIDTH (BEAKER) (test vkmh=838) 19.0 % 11.7-14.4 PLATELET COUNT (BEAKER) (test zypl=325) 305 K/CU MM 150-450 MEAN PLATELET VOLUME (BEAKER) (test tuiv=790) 10.4 fL 9.4-12.3 NUCLEATED RED BLOOD CELLS (BEAKER) (test quof=759) 3 /100 WBC 0-0 NEUTROPHILS RELATIVE PERCENT (BEAKER) (test rqlb=266) 51 % LYMPHOCYTES RELATIVE PERCENT (BEAKER) (test cncv=005) 31 % MONOCYTES RELATIVE PERCENT (BEAKER) (test dlhz=781) 13 % EOSINOPHILS RELATIVE PERCENT (BEAKER) (test fmmq=980) 4 % BASOPHILS RELATIVE PERCENT (BEAKER) (test fdqr=839) 1 % NEUTROPHILS ABSOLUTE COUNT (BEAKER) (test ocst=077) 3.93 K/ L 1.56-6.13 LYMPHOCYTES ABSOLUTE COUNT (BEAKER) (test eqcv=035) 2.33 K/ L 1.18-3.74 MONOCYTES ABSOLUTE COUNT (BEAKER) (test dgpl=178) 0.98 K/ L 0.24-0.36 EOSINOPHILS ABSOLUTE COUNT (BEAKER) (test tnzz=114) 0.29 K/ L 0.04-0.36 BASOPHILS ABSOLUTE COUNT (BEAKER) (test ohks=558) 0.06 K/ L 0.01-0.08 IMMATURE GRANULOCYTES-RELATIVE PERCENT (BEAKER) (test amwq=0199) 1 % 0-1 URINE [id number] 13:56:00* Test Item Value Reference Range Comments CULTURE (BEAKER) (test xokg=9106) ESCHERICHIA COLI >100,000 col/mL Escherichia coli Amikacin (test code=1) Ampicillin + Sulbactam (test code=6) Aztreonam (test code=32) Cefepime (test code=51) Cefoxitin (test code=68) Ceftazidime (test code=27) Ceftriaxone (test code=52) Ertapenem (test code=38) Gentamicin (test code=18) Levofloxacin (test code=22) Meropenem (test code=34) Nitrofurantoin (test code=23) Piperacillin + Tazobactam (test code=29) Tetracycline (test code=2) Tobramycin (test code=25) Trimethoprim + Sulfamethoxazole (test code=47) <10,000 col/mL skin floraCBC W/PLT COUNT & AUTO [id number] 07:55:00 * Test Item Value Reference Range Comments WHITE BLOOD CELL COUNT (BEAKER) (test mbdq=683) 8.4 K/ L 3.5-10.5 RED BLOOD CELL COUNT (BEAKER) (test lhvg=730) 3.18 M/ L 3.93-5.22 HEMOGLOBIN (BEAKER) (test zkrr=362) 7.5 GM/DL 11.2-15.7 HEMATOCRIT (BEAKER) (test hllm=757) 24.2 % 34.1-44.9 MEAN CORPUSCULAR VOLUME (BEAKER) (test kuni=051) 76.1 fL 79.4-94.8 MEAN CORPUSCULAR HEMOGLOBIN (BEAKER) (test vjzl=475) 23.6 pg 25.6-32.2 MEAN CORPUSCULAR HEMOGLOBIN CONC (BEAKER) (test unai=660) 31.0 GM/DL 32.2-35.5 RED CELL DISTRIBUTION WIDTH (BEAKER) (test thkb=425) 19.1 % 11.7-14.4 PLATELET COUNT (BEAKER) (test gsql=636) 323 K/CU MM 150-450 MEAN PLATELET VOLUME (BEAKER) (test zedd=485) 10.0 fL 9.4-12.3 NUCLEATED RED BLOOD CELLS (BEAKER) (test kumi=396) 5 /100 WBC 0-0 (CELLAVISION MANUAL DIFF)2018-08-18 07:55:00* Test Item Value Reference Range Comments NEUTROPHILS - REL (CELLAVISION)(BEAKER) (test ggzx=2262) 53 % LYMPHOCYTES - REL (CELLAVISION)(BEAKER) (test ttbk=1206) 41 % MONOCYTES - REL (CELLAVISION)(BEAKER) (test xfbn=1624) 4 % EOSINOPHILS - REL (CELLAVISION)(BEAKER) (test jglj=8236) 1 % BASOPHILS - REL (CELLAVISION)(BEAKER) (test ovbd=5599) 1 % NEUTROPHILS - ABS (CELLAVISION)(BEAKER) (test qbzb=5887) 4.45 K/ul 1.56-6.13 LYMPHOCYTES - ABS (CELLAVISION)(BEAKER) (test iivc=8526) 3.44 K/ul 1.18-3.74 MONOCYTES - ABS (CELLAVISION)(BEAKER) (test paeg=0008) 0.34 K/uL 0.24-0.36 EOSINOPHILS - ABS (CELLAVISION)(BEAKER) (test cowa=5337) 0.08 K/uL 0.04-0.36 BASOPHILS - ABS (CELLAVISION)(BEAKER) (test mgju=2398) 0.08 K/uL 0.01-0.08 TOTAL COUNTED (BEAKER) (test mfth=6731) 100 MANUAL NRBC PER 100 CELLS (BEAKER) (test rynw=4462) 14 /100 WBC 0-0 WBC MORPHOLOGY (BEAKER) (test twcd=250) Normal LARGE PLT(BEAKER) (test mwns=2132) Present POLYCHROMATOPHILLIC RBCS(BEAKER) (test qdob=030) 2+ moderate ANISOCYTOSIS (BEAKER) (test thid=119) 1+ few MICROCYTES (BEAKER) (test ymkb=162) 1+ few POIKILOCYTES (BEAKER) (test wjfc=086) 1+ few SICKLE CELLS (BEAKER) (test swkf=820) 2+ moderate FERNANDO-JOLLY BODIES (BEAKER) (test ldpm=499) 1+ few ARTIFACT (CELLAVISION)(BEAKER) (test oqys=9895) Present PLATELET CONCENTRATION (CELLAVISION)(BEAKER) (test sdgh=7165) Adequate Received comment: User comments: Slide comments: BASIC METABOLIC [id number] 07:09:00* Test Item Value Reference Range Comments SODIUM (BEAKER) (test dnrw=776) 142 meq/L 136-145 POTASSIUM (BEAKER) (test hmto=670) 4.0 meq/L 3.5-5.1 CHLORIDE (BEAKER) (test zwok=322) 107 meq/L 98-107 CO2 (BEAKER) (test nekf=951) 27 meq/L 22-29 BLOOD UREA NITROGEN (BEAKER) (test eimx=652) 4 mg/dL 7-21 CREATININE (BEAKER) (test orgg=685) 0.53 mg/dL 0.57-1.25 GLUCOSE RANDOM (BEAKER) (test kjyl=071) 97 mg/dL 70-105 CALCIUM (BEAKER) (test eria=118) 9.1 mg/dL 8.4-10.2 EGFR (BEAKER) (test myre=0388) 175 mL/min/1.73 sq m ESTIMATED GFR IS NOT ACCURATE CREATININE CLEARANCE IN PREDICTING GLOMERULAR FILTRATION RATE. ESTIMATED GFR IS NOT APPLICABLE FOR DIALYSIS PATIENTS. HEMOGLOBIN AND [id number] 13:12:00* Test Item Value Reference Range Comments HEMOGLOBIN (BEAKER) (test gglp=351) 6.5 GM/DL 11.2-15.7 HEMATOCRIT (BEAKER) (test gdoq=510) 21.2 % 34.1-44.9 CBC W/PLT COUNT & AUTO [id number] 08:29:00* Test Item Value Reference Range Comments WHITE BLOOD CELL COUNT (BEAKER) (test fglu=305) 8.8 K/ L 3.5-10.5 RED BLOOD CELL COUNT (BEAKER) (test bmsu=761) 2.64 M/ L 3.93-5.22 HEMOGLOBIN (BEAKER) (test rhwf=927) 6.2 GM/DL 11.2-15.7 HEMATOCRIT (BEAKER) (test xpfu=156) 20.2 % 34.1-44.9 MEAN CORPUSCULAR VOLUME (BEAKER) (test zvdb=933) 76.5 fL 79.4-94.8 MEAN CORPUSCULAR HEMOGLOBIN (BEAKER) (test pxki=209) 23.5 pg 25.6-32.2 MEAN CORPUSCULAR HEMOGLOBIN CONC (BEAKER) (test dqam=257) 30.7 GM/DL 32.2-35.5 RED CELL DISTRIBUTION WIDTH (BEAKER) (test chxv=909) 20.0 % 11.7-14.4 PLATELET COUNT (BEAKER) (test ondz=604) 272 K/CU MM 150-450 MEAN PLATELET VOLUME (BEAKER) (test rjes=377) 9.8 fL 9.4-12.3 NUCLEATED RED BLOOD CELLS (BEAKER) (test fehe=749) 6 /100 WBC 0-0 (CELLAVISION MANUAL DIFF)2018-08-17 08:29:00* Test Item Value Reference Range Comments NEUTROPHILS - REL (CELLAVISION)(BEAKER) (test fzdv=7611) 63 % LYMPHOCYTES - REL (CELLAVISION)(BEAKER) (test chsf=6191) 32 % MONOCYTES - REL (CELLAVISION)(BEAKER) (test aaju=3641) 1 % EOSINOPHILS - REL (CELLAVISION)(BEAKER) (test zvyp=6672) 3 % BASOPHILS - REL (CELLAVISION)(BEAKER) (test scgh=2868) 1 % NEUTROPHILS - ABS (CELLAVISION)(BEAKER) (test qiov=3044) 5.54 K/ul 1.56-6.13 LYMPHOCYTES - ABS (CELLAVISION)(BEAKER) (test wkpz=3112) 2.82 K/ul 1.18-3.74 MONOCYTES - ABS (CELLAVISION)(BEAKER) (test vtbs=2641) 0.09 K/uL 0.24-0.36 EOSINOPHILS - ABS (CELLAVISION)(BEAKER) (test zewr=1096) 0.26 K/uL 0.04-0.36 BASOPHILS - ABS (CELLAVISION)(BEAKER) (test ltxr=2037) 0.09 K/uL 0.01-0.08 TOTAL COUNTED (BEAKER) (test wjfn=9399) 100 MANUAL NRBC PER 100 CELLS (BEAKER) (test igtp=5603) 18 /100 WBC 0-0 WBC MORPHOLOGY (BEAKER) (test qhlu=372) Normal PLT MORPHOLOGY (BEAKER) (test flta=141) Normal POLYCHROMATOPHILLIC RBCS(BEAKER) (test tyvh=012) 2+ moderate ANISOCYTOSIS (BEAKER) (test guie=542) 2+ moderate TARGET CELLS (BEAKER) (test bgan=490) 2+ moderate SICKLE CELLS (BEAKER) (test ufxc=699) 2+ moderate ARTIFACT (CELLAVISION)(BEAKER) (test ccub=5030) Present PLATELET CONCENTRATION (CELLAVISION)(BEAKER) (test ldve=1224) Adequate Received comment: User comments: Slide comments: BASIC METABOLIC [id number] 05:57:00* Test Item Value Reference Range Comments SODIUM (BEAKER) (test tsan=409) 142 meq/L 136-145 POTASSIUM (BEAKER) (test njjf=705) 3.9 meq/L 3.5-5.1 CHLORIDE (BEAKER) (test oyil=517) 109 meq/L 98-107 CO2 (BEAKER) (test ddio=044) 26 meq/L 22-29 BLOOD UREA NITROGEN (BEAKER) (test qcab=026) 6 mg/dL 7-21 CREATININE (BEAKER) (test povm=961) 0.49 mg/dL 0.57-1.25 GLUCOSE RANDOM (BEAKER) (test oikq=725) 88 mg/dL 70-105 CALCIUM (BEAKER) (test qdal=810) 8.5 mg/dL 8.4-10.2 EGFR (BEAKER) (test jlsf=6208) 191 mL/min/1.73 sq m ESTIMATED GFR IS NOT ACCURATE CREATININE CLEARANCE IN PREDICTING GLOMERULAR FILTRATION RATE. ESTIMATED GFR IS NOT APPLICABLE FOR DIALYSIS PATIENTS. BLOOD [id number] 18:00:00* Test Item Value Reference Range Comments CULTURE (BEAKER) (test htae=8899) No growth in 5 days URINALYSIS W/ [id number] 15:16:00* Test Item Value Reference Range Comments COLOR (BEAKER) (test xhio=327) Yellow CLARITY (BEAKER) (test ecfs=423) Clear SPECIFIC GRAVITY UA (BEAKER) (test vtnu=742) 1.007 1.001-1.035 PH UA (BEAKER) (test vmqs=758) 7.0 5.0-8.0 PROTEIN UA (BEAKER) (test jrhn=548) Negative Negative GLUCOSE UA (BEAKER) (test ztxm=272) Negative Negative KETONES UA (BEAKER) (test bofj=907) Negative Negative BILIRUBIN UA (BEAKER) (test nodv=586) Negative Negative BLOOD UA (BEAKER) (test snay=773) Negative Negative NITRITE UA (BEAKER) (test fngj=306) Negative Negative LEUKOCYTE ESTERASE UA (BEAKER) (test voey=614) Negative Negative UROBILINOGEN UA (BEAKER) (test gzcx=605) 0.2 mg/dL 0.2-1.0 RBC UA (BEAKER) (test ecew=899) < /HPF WBC UA (BEAKER) (test tocg=915) 0 /HPF BACTERIA (BEAKER) (test djky=919) Occasional SQUAMOUS EPITHELIAL (BEAKER) (test iyyf=396) < /HPF SOURCE(BEAKER) (test qmtw=4518) Urine, Voided SCREEN, [id number] 14:55:00* Test Item Value Reference Range Comments TEST URINE (BEAKER) (test clvs=959) Negative HEPATIC FUNCTION [id number] 14:06:00* Test Item Value Reference Range Comments TOTAL PROTEIN (BEAKER) (test jmkq=705) 6.9 gm/dL 6.0-8.3 Specimen slightly hemolyzed ALBUMIN (BEAKER) (test rxmu=7395) 4.3 g/dL 3.5-5.0 Specimen slightly hemolyzed BILIRUBIN TOTAL (BEAKER) (test rmmp=533) 1.1 mg/dL 0.2-1.2 Specimen slightly hemolyzed BILIRUBIN DIRECT (BEAKER) (test zjqn=841) 0.5 mg/dL 0.1-0.5 Specimen slightly hemolyzed ALKALINE PHOSPHATASE (BEAKER) (test wiqw=444) 103 U/L 40-150 AST (SGOT) (BEAKER) (test sjay=306) 37 U/L 5-34 Specimen slightly hemolyzed ALT (SGPT) (BEAKER) (test gkyz=410) 31 U/L 6-55 Specimen slightly hemolyzed [id number] 09:43:00* Test Item Value Reference Range Comments FERRITIN (BEAKER) (test oqaz=021) 4414 ng/mL 5-275 RAD, CHEST, 1 VIEW, NON [id number] 08:23:00Reason for exam:->SICKLE CELL PAIN CRISISIs the patient ?->NoFINAL REPORT AP chest HISTORY: Sickle cell pain crisis COMPARISON: 08/11/2018 IMPRESSION:No acute skeletal findings. Skeletal stigmata of sickle cell disease. Heart size upper limits of normal. Bibasilar atelectasis. Lungs otherwise clear. No effusion or pneumothorax. Signed: Calixto Matias MDReport Verified Date/Time: 08/16/2018 08:23:35 Reading Location: [address] Radiology Reading Room , TIBC, % SAT. (WITHOUT FERRITIN)2018-08-16 08:11:00* Test Item Value Reference Range Comments IRON (BEAKER) (test tzvz=888) 119 ug/dL 40-160 TOTAL IRON BINDING CAPACITY (BEAKER) (test wbwr=714) 154 ug/dL 250-450 IRON % SATURATION (2) (BEAKER) (test wtsv=7986) 77 % 20-55 BASIC METABOLIC [id number] 08:08:00* Test Item Value Reference Range Comments SODIUM (BEAKER) (test hhkr=876) 141 meq/L 136-145 POTASSIUM (BEAKER) (test hnxq=782) 3.6 meq/L 3.5-5.1 CHLORIDE (BEAKER) (test nlbb=332) 107 meq/L 98-107 CO2 (BEAKER) (test xokl=776) 22 meq/L 22-29 BLOOD UREA NITROGEN (BEAKER) (test abpv=152) 5 mg/dL 7-21 CREATININE (BEAKER) (test ewue=640) 0.52 mg/dL 0.57-1.25 GLUCOSE RANDOM (BEAKER) (test vxuo=172) 102 mg/dL 70-105 CALCIUM (BEAKER) (test mixt=959) 9.6 mg/dL 8.4-10.2 EGFR (BEAKER) (test yuqs=1194) 179 mL/min/1.73 sq m ESTIMATED GFR IS NOT ACCURATE CREATININE CLEARANCE IN PREDICTING GLOMERULAR FILTRATION RATE. ESTIMATED GFR IS NOT APPLICABLE FOR DIALYSIS PATIENTS. CBC W/PLT COUNT & AUTO [id number] 07:53:00* Test Item Value Reference Range Comments WHITE BLOOD CELL COUNT (BEAKER) (test yxsi=111) 16.0 K/ L 3.5-10.5 RED BLOOD CELL COUNT (BEAKER) (test lxib=015) 3.28 M/ L 3.93-5.22 HEMOGLOBIN (BEAKER) (test jgnz=829) 7.8 GM/DL 11.2-15.7 HEMATOCRIT (BEAKER) (test qdbk=506) 25.0 % 34.1-44.9 MEAN CORPUSCULAR VOLUME (BEAKER) (test nocs=326) 76.2 fL 79.4-94.8 MEAN CORPUSCULAR HEMOGLOBIN (BEAKER) (test gaxv=409) 23.8 pg 25.6-32.2 MEAN CORPUSCULAR HEMOGLOBIN CONC (BEAKER) (test ljxw=312) 31.2 GM/DL 32.2-35.5 RED CELL DISTRIBUTION WIDTH (BEAKER) (test bvfl=803) 19.4 % 11.7-14.4 PLATELET COUNT (BEAKER) (test lbln=396) 302 K/CU MM 150-450 MEAN PLATELET VOLUME (BEAKER) (test rfjo=586) 9.8 fL 9.4-12.3 NUCLEATED RED BLOOD CELLS (BEAKER) (test zxth=475) 2 /100 WBC 0-0 NEUTROPHILS RELATIVE PERCENT (BEAKER) (test hpsq=399) 76 % LYMPHOCYTES RELATIVE PERCENT (BEAKER) (test fgii=608) 12 % MONOCYTES RELATIVE PERCENT (BEAKER) (test ffrg=529) 8 % EOSINOPHILS RELATIVE PERCENT (BEAKER) (test ernf=233) 1 % BASOPHILS RELATIVE PERCENT (BEAKER) (test hqix=100) 1 % NEUTROPHILS ABSOLUTE COUNT (BEAKER) (test ydpl=342) 12.13 K/ L 1.56-6.13 LYMPHOCYTES ABSOLUTE COUNT (BEAKER) (test qxsa=693) 1.84 K/ L 1.18-3.74 MONOCYTES ABSOLUTE COUNT (BEAKER) (test hxdo=874) 1.26 K/ L 0.24-0.36 EOSINOPHILS ABSOLUTE COUNT (BEAKER) (test wesb=602) 0.22 K/ L 0.04-0.36 BASOPHILS ABSOLUTE COUNT (BEAKER) (test hwdb=227) 0.16 K/ L 0.01-0.08 IMMATURE GRANULOCYTES-RELATIVE PERCENT (BEAKER) (test xqrl=1189) 3 % 0-1 RETICULOCYTE [id number] 07:52:00* Test Item Value Reference Range Comments RETICULOCYTE COUNT PCT (BEAKER) (test eoqv=350) 6.3 % 0.5-1.7 BASIC METABOLIC [id number] 11:36:00* Test Item Value Reference Range Comments SODIUM (BEAKER) (test gmox=422) 145 meq/L 136-145 POTASSIUM (BEAKER) (test nebd=530) 3.9 meq/L 3.5-5.1 Specimen slightly hemolyzed CHLORIDE (BEAKER) (test dcsh=682) 107 meq/L 98-107 CO2 (BEAKER) (test inpu=670) 28 meq/L 22-29 BLOOD UREA NITROGEN (BEAKER) (test fzwt=855) 7 mg/dL 7-21 CREATININE (BEAKER) (test mepy=784) 0.54 mg/dL 0.57-1.25 Specimen slightly hemolyzed GLUCOSE RANDOM (BEAKER) (test vwry=922) 78 mg/dL 70-105 CALCIUM (BEAKER) (test gkph=187) 9.8 mg/dL 8.4-10.2 EGFR (BEAKER) (test fedb=8743) 171 mL/min/1.73 sq m ESTIMATED GFR IS NOT ACCURATE CREATININE CLEARANCE IN PREDICTING GLOMERULAR FILTRATION RATE. ESTIMATED GFR IS NOT APPLICABLE FOR DIALYSIS PATIENTS. CBC W/PLT COUNT & AUTO [id number] 11:23:00* Test Item Value Reference Range Comments WHITE BLOOD CELL COUNT (BEAKER) (test ipgs=829) 7.7 K/ L 3.5-10.5 RED BLOOD CELL COUNT (BEAKER) (test sstt=473) 3.22 M/ L 3.93-5.22 HEMOGLOBIN (BEAKER) (test lsrz=171) 7.8 GM/DL 11.2-15.7 HEMATOCRIT (BEAKER) (test ewst=415) 24.6 % 34.1-44.9 MEAN CORPUSCULAR VOLUME (BEAKER) (test lqmd=475) 76.4 fL 79.4-94.8 MEAN CORPUSCULAR HEMOGLOBIN (BEAKER) (test siax=518) 24.2 pg 25.6-32.2 MEAN CORPUSCULAR HEMOGLOBIN CONC (BEAKER) (test ndmw=775) 31.7 GM/DL 32.2-35.5 RED CELL DISTRIBUTION WIDTH (BEAKER) (test jzzy=565) 18.6 % 11.7-14.4 PLATELET COUNT (BEAKER) (test gcoq=151) 321 K/CU MM 150-450 MEAN PLATELET VOLUME (BEAKER) (test fvuv=878) 9.8 fL 9.4-12.3 NUCLEATED RED BLOOD CELLS (BEAKER) (test hrid=050) 1 /100 WBC 0-0 NEUTROPHILS RELATIVE PERCENT (BEAKER) (test kfgi=443) 73 % LYMPHOCYTES RELATIVE PERCENT (BEAKER) (test kvlw=578) 14 % MONOCYTES RELATIVE PERCENT (BEAKER) (test pzao=104) 10 % EOSINOPHILS RELATIVE PERCENT (BEAKER) (test gktq=334) 2 % BASOPHILS RELATIVE PERCENT (BEAKER) (test wvmw=712) 1 % NEUTROPHILS ABSOLUTE COUNT (BEAKER) (test gnqz=672) 5.65 K/ L 1.56-6.13 LYMPHOCYTES ABSOLUTE COUNT (BEAKER) (test kzhg=421) 1.04 K/ L 1.18-3.74 MONOCYTES ABSOLUTE COUNT (BEAKER) (test yzff=925) 0.76 K/ L 0.24-0.36 EOSINOPHILS ABSOLUTE COUNT (BEAKER) (test coks=145) 0.17 K/ L 0.04-0.36 BASOPHILS ABSOLUTE COUNT (BEAKER) (test hwed=004) 0.06 K/ L 0.01-0.08 IMMATURE GRANULOCYTES-RELATIVE PERCENT (BEAKER) (test dswf=2483) 0 % 0-1 RETICULOCYTE [id number] 11:23:00* Test Item Value Reference Range Comments RETICULOCYTE COUNT PCT (BEAKER) (test zikz=144) 5.4 % 0.5-1.7 BASIC METABOLIC [id number] 06:57:00* Test Item Value Reference Range Comments SODIUM (BEAKER) (test sczm=911) 141 meq/L 136-145 POTASSIUM (BEAKER) (test syvj=786) 3.9 meq/L 3.5-5.1 CHLORIDE (BEAKER) (test xlfz=837) 111 meq/L 98-107 CO2 (BEAKER) (test zoju=112) 24 meq/L 22-29 BLOOD UREA NITROGEN (BEAKER) (test ifzm=076) 3 mg/dL 7-21 CREATININE (BEAKER) (test yrby=583) 0.48 mg/dL 0.57-1.25 GLUCOSE RANDOM (BEAKER) (test nmca=537) 87 mg/dL 70-105 CALCIUM (BEAKER) (test xvyk=048) 8.4 mg/dL 8.4-10.2 EGFR (BEAKER) (test vorv=1713) 198 mL/min/1.73 sq m ESTIMATED GFR IS NOT ACCURATE CREATININE CLEARANCE IN PREDICTING GLOMERULAR FILTRATION RATE. ESTIMATED GFR IS NOT APPLICABLE FOR DIALYSIS PATIENTS. CBC W/PLT COUNT & AUTO [id number] 06:25:00* Test Item Value Reference Range Comments WHITE BLOOD CELL COUNT (BEAKER) (test nmng=370) 7.6 K/ L 3.5-10.5 RED BLOOD CELL COUNT (BEAKER) (test jrsi=089) 2.64 M/ L 3.93-5.22 HEMOGLOBIN (BEAKER) (test ycau=316) 6.3 GM/DL 11.2-15.7 HEMATOCRIT (BEAKER) (test zcqa=163) 20.2 % 34.1-44.9 MEAN CORPUSCULAR VOLUME (BEAKER) (test omzb=409) 76.5 fL 79.4-94.8 MEAN CORPUSCULAR HEMOGLOBIN (BEAKER) (test ubfk=393) 23.9 pg 25.6-32.2 MEAN CORPUSCULAR HEMOGLOBIN CONC (BEAKER) (test aimq=067) 31.2 GM/DL 32.2-35.5 RED CELL DISTRIBUTION WIDTH (BEAKER) (test fndw=972) 19.1 % 11.7-14.4 PLATELET COUNT (BEAKER) (test xizp=590) 250 K/CU MM 150-450 MEAN PLATELET VOLUME (BEAKER) (test wrte=470) 9.5 fL 9.4-12.3 NUCLEATED RED BLOOD CELLS (BEAKER) (test iplz=837) 1 /100 WBC 0-0 NEUTROPHILS RELATIVE PERCENT (BEAKER) (test hyol=107) 54 % LYMPHOCYTES RELATIVE PERCENT (BEAKER) (test oseu=833) 31 % MONOCYTES RELATIVE PERCENT (BEAKER) (test ruuw=630) 11 % EOSINOPHILS RELATIVE PERCENT (BEAKER) (test bkjr=165) 3 % BASOPHILS RELATIVE PERCENT (BEAKER) (test agtd=035) 1 % NEUTROPHILS ABSOLUTE COUNT (BEAKER) (test mymh=599) 4.10 K/ L 1.56-6.13 LYMPHOCYTES ABSOLUTE COUNT (BEAKER) (test mkpv=909) 2.33 K/ L 1.18-3.74 MONOCYTES ABSOLUTE COUNT (BEAKER) (test pdqf=160) 0.85 K/ L 0.24-0.36 EOSINOPHILS ABSOLUTE COUNT (BEAKER) (test vhpm=770) 0.26 K/ L 0.04-0.36 BASOPHILS ABSOLUTE COUNT (BEAKER) (test sowi=207) 0.06 K/ L 0.01-0.08 IMMATURE GRANULOCYTES-RELATIVE PERCENT (BEAKER) (test ryto=6564) 0 % 0-1 LACTATE DEHYDROGENASE (LDH)2018-08-12 06:46:00* Test Item Value Reference Range Comments LACTATE DEHYDROGENASE (BEAKER) (test oogk=533) 307 U/L 125-220 BASIC METABOLIC [id number] 06:46:00* Test Item Value Reference Range Comments SODIUM (BEAKER) (test quze=010) 143 meq/L 136-145 POTASSIUM (BEAKER) (test hvab=867) 3.7 meq/L 3.5-5.1 CHLORIDE (BEAKER) (test aksc=231) 113 meq/L 98-107 CO2 (BEAKER) (test qdgc=789) 26 meq/L 22-29 BLOOD UREA NITROGEN (BEAKER) (test vgxc=753) 3 mg/dL 7-21 CREATININE (BEAKER) (test izng=555) 0.51 mg/dL 0.57-1.25 GLUCOSE RANDOM (BEAKER) (test envp=110) 87 mg/dL 70-105 CALCIUM (BEAKER) (test jegt=711) 8.7 mg/dL 8.4-10.2 EGFR (BEAKER) (test hpzt=8769) 185 mL/min/1.73 sq m ESTIMATED GFR IS NOT ACCURATE CREATININE CLEARANCE IN PREDICTING GLOMERULAR FILTRATION RATE. ESTIMATED GFR IS NOT APPLICABLE FOR DIALYSIS PATIENTS. RETICULOCYTE [id number] 06:28:00* Test Item Value Reference Range Comments RETICULOCYTE COUNT PCT (BEAKER) (test oafx=839) 6.6 % 0.5-1.7 CBC W/PLT COUNT & AUTO [id number] 06:28:00* Test Item Value Reference Range Comments WHITE BLOOD CELL COUNT (BEAKER) (test vdti=862) 10.0 K/ L 3.5-10.5 RED BLOOD CELL COUNT (BEAKER) (test rlps=013) 2.86 M/ L 3.93-5.22 HEMOGLOBIN (BEAKER) (test lund=707) 7.0 GM/DL 11.2-15.7 HEMATOCRIT (BEAKER) (test amux=499) 21.8 % 34.1-44.9 MEAN CORPUSCULAR VOLUME (BEAKER) (test ruhu=915) 76.2 fL 79.4-94.8 MEAN CORPUSCULAR HEMOGLOBIN (BEAKER) (test toxa=366) 24.5 pg 25.6-32.2 MEAN CORPUSCULAR HEMOGLOBIN CONC (BEAKER) (test dsbc=059) 32.1 GM/DL 32.2-35.5 RED CELL DISTRIBUTION WIDTH (BEAKER) (test vlbt=445) 19.8 % 11.7-14.4 PLATELET COUNT (BEAKER) (test exse=959) 280 K/CU MM 150-450 MEAN PLATELET VOLUME (BEAKER) (test ghtg=768) 10.1 fL 9.4-12.3 NUCLEATED RED BLOOD CELLS (BEAKER) (test mojq=007) 1 /100 WBC 0-0 NEUTROPHILS RELATIVE PERCENT (BEAKER) (test rjri=357) 56 % LYMPHOCYTES RELATIVE PERCENT (BEAKER) (test jiyv=415) 28 % MONOCYTES RELATIVE PERCENT (BEAKER) (test idlj=169) 13 % EOSINOPHILS RELATIVE PERCENT (BEAKER) (test hvwt=979) 2 % BASOPHILS RELATIVE PERCENT (BEAKER) (test gwis=199) 1 % NEUTROPHILS ABSOLUTE COUNT (BEAKER) (test gybo=355) 5.60 K/ L 1.56-6.13 LYMPHOCYTES ABSOLUTE COUNT (BEAKER) (test iize=448) 2.81 K/ L 1.18-3.74 MONOCYTES ABSOLUTE COUNT (BEAKER) (test jmgi=714) 1.27 K/ L 0.24-0.36 EOSINOPHILS ABSOLUTE COUNT (BEAKER) (test shky=374) 0.21 K/ L 0.04-0.36 BASOPHILS ABSOLUTE COUNT (BEAKER) (test tfzw=916) 0.08 K/ L 0.01-0.08 IMMATURE GRANULOCYTES-RELATIVE PERCENT (BEAKER) (test xvau=2525) 0 % 0-1 URINALYSIS W/ REFLEX URINE [id number] 01:58:00* Test Item Value Reference Range Comments COLOR (BEAKER) (test xxnr=847) Yellow CLARITY (BEAKER) (test ajce=958) Clear SPECIFIC GRAVITY UA (BEAKER) (test qrca=489) 1.008 1.001-1.035 PH UA (BEAKER) (test fzll=438) 5.5 5.0-8.0 PROTEIN UA (BEAKER) (test yhiy=485) Negative Negative GLUCOSE UA (BEAKER) (test yngn=712) Negative Negative KETONES UA (BEAKER) (test lxev=192) Negative Negative BILIRUBIN UA (BEAKER) (test rcds=084) Negative Negative BLOOD UA (BEAKER) (test dxfm=906) Large Negative NITRITE UA (BEAKER) (test szkh=685) Negative Negative LEUKOCYTE ESTERASE UA (BEAKER) (test bfrx=265) Moderate Negative UROBILINOGEN UA (BEAKER) (test dnmx=561) 0.2 mg/dL 0.2-1.0 RBC UA (BEAKER) (test jxcw=704) 135 /HPF WBC UA (BEAKER) (test ayji=118) 7 /HPF MUCUS (BEAKER) (test kjqa=9672) Moderate SQUAMOUS EPITHELIAL (BEAKER) (test fidn=359) < /HPF SOURCE(BEAKER) (test vjpi=4439) SCREEN, [id number] 01:51:00* Test Item Value Reference Range Comments TEST URINE (BEAKER) (test xxvl=060) Negative RAD, CHEST, 2 [id number] 17:30:00Reason for exam:->SICKLE CELL PAIN CRISIS FINAL REPORT Examination: Two view Chest X-ray. CLINICAL HISTORY: Chest pain, history of sickle cell anemia COMPARISON:None. The cardiom ediastinal and hilar contours are unremarkable. The lung volumes are low. Curvil inear opacities in the left greater than right lower lungs are similar to previo us and suggests atelectasis or scarring. There is no focal consolidation, pleura l effusion, pneumothorax or evidence of overt pulmonary edema. There is no acu te bony abnormality. Skeletal changes consistent with a history of sickle cell a nemia are redemonstrated. Signed: Ernie Sawyer Verified Date/Time: 17:30:43 Reading Location: [address] Room El ectronically signed by: ERNIE SAWYER M.D. on 08/11/2018 05:30 PM RAD, HIP, 2 VIEWS, [id number] 17:28:00Reason for exam:->SICKLE CELL PAIN CRISISFINAL REPORT CLINICAL HISTORY: Pain, history of sickle cell anemia COMPARISON: None. FINDINGS: 2 views of the right hip are submitted. There is no acute fracture, malalignment, destructive bony lesion, radiopaque foreign body or significant degenerative change. The surrounding soft tissues are g rossly unremarkable. Further evaluation with MRI can be performed if osteonecros is is of clinical concern. Signed: Ernie Sawyer Verified Date/Time: 1 17:28:11 Reading Location: [address] Reading Room E lectronically signed by: ERNIE SAWYER M.D. on 08/11/2018 05:28 PM POCT-LACTIC ACID, [id number] 16:12:00* Test Item Value Reference Range Comments POC-LACTIC ACID, VENOUS (BEAKER) (test njsd=0983) 0.4 mmol/L 0.9-1.7 TESTED AT [facility] [address] [facility] [address] [id number] 15:48:00* Test Item Value Reference Range Comments PROTIME (BEAKER) (test ohrp=824) 14.2 seconds 11.7-14.7 INR (BEAKER) (test gkow=330) 1.1 <=5.9 PARTIAL THROMBOPLASTIN TIME (BEAKER) (test indn=762) 20.1 seconds 22.5-36.0 RECOMMENDED COUMADIN/WARFARIN INR THERAPY RANGESSTANDARD DOSE: 2.0 - 3.0 Inclu emma: PROPHYLAXIS for venous thrombosis, systemic embolization; TREATMENT for kim ous thrombosis and/or pulmonary embolus.HIGH RISK: Target INR is 2.5-3.5 for pat ients with mechanical heart valves.[id number] 15:42:00* Test Item Value Reference Range Comments MAGNESIUM (BEAKER) (test jaiv=888) 2.7 mg/dL 1.6-2.6 Specimen moderately hemolyzed [id number] 15:42:00* Test Item Value Reference Range Comments PHOSPHORUS (BEAKER) (test qsaz=944) 4.3 mg/dL 2.3-4.7 Specimen moderately hemolyzed COMPREHENSIVE METABOLIC [id number] 15:42:00* Test Item Value Reference Range Comments TOTAL PROTEIN (BEAKER) (test svll=918) 7.0 gm/dL 6.0-8.3 Specimen moderately hemolyzed ALBUMIN (BEAKER) (test kzau=6000) 4.4 g/dL 3.5-5.0 Specimen moderately hemolyzed ALKALINE PHOSPHATASE (BEAKER) (test wrlc=641) 65 U/L 40-150 BILIRUBIN TOTAL (BEAKER) (test ncem=343) 1.5 mg/dL 0.2-1.2 Specimen moderately hemolyzed SODIUM (BEAKER) (test bzbm=641) 142 meq/L 136-145 POTASSIUM (BEAKER) (test aysr=859) 4.1 meq/L 3.5-5.1 Specimen moderately hemolyzed CHLORIDE (BEAKER) (test bunt=548) 111 meq/L 98-107 CO2 (BEAKER) (test upjv=399) 22 meq/L 22-29 BLOOD UREA NITROGEN (BEAKER) (test kplp=220) 3 mg/dL 7-21 CREATININE (BEAKER) (test gpnu=071) 0.57 mg/dL 0.57-1.25 Specimen moderately hemolyzed GLUCOSE RANDOM (BEAKER) (test gibi=165) 93 mg/dL 70-105 CALCIUM (BEAKER) (test xnvc=646) 9.3 mg/dL 8.4-10.2 AST (SGOT) (BEAKER) (test wisy=388) 47 U/L 5-34 Specimen moderately hemolyzed ALT (SGPT) (BEAKER) (test nmqz=298) 14 U/L 6-55 Specimen moderately hemolyzed EGFR (BEAKER) (test oplc=4650) 162 mL/min/1.73 sq m ESTIMATED GFR IS NOT ACCURATE CREATININE CLEARANCE IN PREDICTING GLOMERULAR FILTRATION RATE. ESTIMATED GFR IS NOT APPLICABLE FOR DIALYSIS PATIENTS. LACTATE DEHYDROGENASE (LDH)2018-08-11 15:42:00* Test Item Value Reference Range Comments LACTATE DEHYDROGENASE (BEAKER) (test wehj=289) 542 U/L 125-220 Specimen moderately hemolyzed CBC W/PLT COUNT & AUTO [id number] 15:42:00* Test Item Value Reference Range Comments WHITE BLOOD CELL COUNT (BEAKER) (test wqzm=204) 13.5 K/ L 3.5-10.5 RED BLOOD CELL COUNT (BEAKER) (test bjtq=358) 3.29 M/ L 3.93-5.22 HEMOGLOBIN (BEAKER) (test bjqe=998) 7.9 GM/DL 11.2-15.7 HEMATOCRIT (BEAKER) (test ewzf=250) 25.2 % 34.1-44.9 MEAN CORPUSCULAR VOLUME (BEAKER) (test yqgh=115) 76.6 fL 79.4-94.8 MEAN CORPUSCULAR HEMOGLOBIN (BEAKER) (test xbxv=718) 24.0 pg 25.6-32.2 MEAN CORPUSCULAR HEMOGLOBIN CONC (BEAKER) (test mmfw=122) 31.3 GM/DL 32.2-35.5 RED CELL DISTRIBUTION WIDTH (BEAKER) (test mrrm=235) 20.6 % 11.7-14.4 PLATELET COUNT (BEAKER) (test bygw=857) 330 K/CU MM 150-450 MEAN PLATELET VOLUME (BEAKER) (test hlne=358) 9.8 fL 9.4-12.3 NUCLEATED RED BLOOD CELLS (BEAKER) (test kqds=037) 1 /100 WBC 0-0 NEUTROPHILS RELATIVE PERCENT (BEAKER) (test rmie=351) 68 % LYMPHOCYTES RELATIVE PERCENT (BEAKER) (test kjhz=170) 20 % MONOCYTES RELATIVE PERCENT (BEAKER) (test dswz=891) 9 % EOSINOPHILS RELATIVE PERCENT (BEAKER) (test zect=523) 2 % BASOPHILS RELATIVE PERCENT (BEAKER) (test wvho=496) 1 % NEUTROPHILS ABSOLUTE COUNT (BEAKER) (test yzhu=572) 9.08 K/ L 1.56-6.13 LYMPHOCYTES ABSOLUTE COUNT (BEAKER) (test tjnw=076) 2.75 K/ L 1.18-3.74 MONOCYTES ABSOLUTE COUNT (BEAKER) (test vtfx=451) 1.21 K/ L 0.24-0.36 EOSINOPHILS ABSOLUTE COUNT (BEAKER) (test xxvy=333) 0.23 K/ L 0.04-0.36 BASOPHILS ABSOLUTE COUNT (BEAKER) (test mvhq=728) 0.10 K/ L 0.01-0.08 IMMATURE GRANULOCYTES-RELATIVE PERCENT (BEAKER) (test xlco=6331) 1 % 0-1 RETICULOCYTE [id number] 15:42:00* Test Item Value Reference Range Comments RETICULOCYTE COUNT PCT (BEAKER) (test uoid=755) 7.4 % 0.5-1.7 BASIC METABOLIC [id number] 06:53:00* Test Item Value Reference Range Comments SODIUM (BEAKER) (test ioid=020) 143 meq/L 136-145 POTASSIUM (BEAKER) (test uxux=077) 3.9 meq/L 3.5-5.1 CHLORIDE (BEAKER) (test gxsk=390) 107 meq/L 98-107 CO2 (BEAKER) (test bmhq=973) 29 meq/L 22-29 BLOOD UREA NITROGEN (BEAKER) (test wtpk=765) 4 mg/dL 7-21 CREATININE (BEAKER) (test zglh=006) 0.50 mg/dL 0.57-1.25 GLUCOSE RANDOM (BEAKER) (test zpse=062) 76 mg/dL 70-105 CALCIUM (BEAKER) (test hobm=802) 9.2 mg/dL 8.4-10.2 EGFR (BEAKER) (test xgis=3098) 189 mL/min/1.73 sq m ESTIMATED GFR IS NOT ACCURATE CREATININE CLEARANCE IN PREDICTING GLOMERULAR FILTRATION RATE. ESTIMATED GFR IS NOT APPLICABLE FOR DIALYSIS PATIENTS. CBC (HEMOGRAM ONLY)2018-07-05 06:35:00* Test Item Value Reference Range Comments WHITE BLOOD CELL COUNT (BEAKER) (test cunb=887) 5.5 K/ L 3.5-10.5 RED BLOOD CELL COUNT (BEAKER) (test kpta=771) 3.52 M/ L 3.93-5.22 HEMOGLOBIN (BEAKER) (test fbkx=979) 8.4 GM/DL 11.2-15.7 HEMATOCRIT (BEAKER) (test avzd=439) 27.5 % 34.1-44.9 MEAN CORPUSCULAR VOLUME (BEAKER) (test uhih=411) 78.1 fL 79.4-94.8 MEAN CORPUSCULAR HEMOGLOBIN (BEAKER) (test yrjq=833) 23.9 pg 25.6-32.2 MEAN CORPUSCULAR HEMOGLOBIN CONC (BEAKER) (test iurt=895) 30.5 GM/DL 32.2-35.5 RED CELL DISTRIBUTION WIDTH (BEAKER) (test jazp=738) 22.8 % 11.7-14.4 PLATELET COUNT (BEAKER) (test ncpt=970) 380 K/CU MM 150-450 MEAN PLATELET VOLUME (BEAKER) (test rnwr=900) 9.3 fL 9.4-12.3 NUCLEATED RED BLOOD CELLS (BEAKER) (test equr=482) 0 /100 WBC 0-0 BASIC METABOLIC [id number] 06:51:00* Test Item Value Reference Range Comments SODIUM (BEAKER) (test rufx=810) 142 meq/L 136-145 POTASSIUM (BEAKER) (test dhcd=459) 3.6 meq/L 3.5-5.1 CHLORIDE (BEAKER) (test kztk=594) 111 meq/L 98-107 CO2 (BEAKER) (test jwkr=098) 25 meq/L 22-29 BLOOD UREA NITROGEN (BEAKER) (test wfxz=593) 3 mg/dL 7-21 CREATININE (BEAKER) (test ojmz=142) 0.49 mg/dL 0.57-1.25 GLUCOSE RANDOM (BEAKER) (test vhrs=879) 101 mg/dL 70-105 CALCIUM (BEAKER) (test yskm=619) 8.8 mg/dL 8.4-10.2 EGFR (BEAKER) (test rmsi=8998) 193 mL/min/1.73 sq m ESTIMATED GFR IS NOT ACCURATE CREATININE CLEARANCE IN PREDICTING GLOMERULAR FILTRATION RATE. ESTIMATED GFR IS NOT APPLICABLE FOR DIALYSIS PATIENTS. CBC (HEMOGRAM ONLY)2018-07-04 06:08:00* Test Item Value Reference Range Comments WHITE BLOOD CELL COUNT (BEAKER) (test hgvi=921) 5.6 K/ L 3.5-10.5 RED BLOOD CELL COUNT (BEAKER) (test xqae=954) 3.07 M/ L 3.93-5.22 HEMOGLOBIN (BEAKER) (test kcti=031) 7.4 GM/DL 11.2-15.7 HEMATOCRIT (BEAKER) (test xxye=699) 24.2 % 34.1-44.9 MEAN CORPUSCULAR VOLUME (BEAKER) (test lequ=172) 78.8 fL 79.4-94.8 MEAN CORPUSCULAR HEMOGLOBIN (BEAKER) (test rzvq=251) 24.1 pg 25.6-32.2 MEAN CORPUSCULAR HEMOGLOBIN CONC (BEAKER) (test htzz=679) 30.6 GM/DL 32.2-35.5 RED CELL DISTRIBUTION WIDTH (BEAKER) (test aowh=953) 22.7 % 11.7-14.4 PLATELET COUNT (BEAKER) (test mqlu=920) 333 K/CU MM 150-450 MEAN PLATELET VOLUME (BEAKER) (test hywi=925) 10.3 fL 9.4-12.3 NUCLEATED RED BLOOD CELLS (BEAKER) (test pzzw=189) 0 /100 WBC 0-0 RETICULOCYTE [id number] 13:18:00* Test Item Value Reference Range Comments RETICULOCYTE COUNT PCT (BEAKER) (test jcue=886) 5.0 % 0.5-1.7 HEMOGLOBIN AND [id number] 12:43:00* Test Item Value Reference Range Comments HEMOGLOBIN (BEAKER) (test xdxr=269) 8.0 GM/DL 11.2-15.7 HEMATOCRIT (BEAKER) (test xwhg=228) 25.8 % 34.1-44.9 COMPREHENSIVE METABOLIC [id number] 06:08:00* Test Item Value Reference Range Comments TOTAL PROTEIN (BEAKER) (test nrxq=554) 5.7 gm/dL 6.0-8.3 ALBUMIN (BEAKER) (test vijh=2867) 3.4 g/dL 3.5-5.0 ALKALINE PHOSPHATASE (BEAKER) (test hxcy=246) 82 U/L 40-150 BILIRUBIN TOTAL (BEAKER) (test tsva=929) 1.1 mg/dL 0.2-1.2 SODIUM (BEAKER) (test idad=445) 141 meq/L 136-145 POTASSIUM (BEAKER) (test ynun=279) 3.4 meq/L 3.5-5.1 CHLORIDE (BEAKER) (test ebui=453) 110 meq/L 98-107 CO2 (BEAKER) (test qjxh=569) 23 meq/L 22-29 BLOOD UREA NITROGEN (BEAKER) (test yllt=416) 3 mg/dL 7-21 CREATININE (BEAKER) (test awob=519) 0.49 mg/dL 0.57-1.25 GLUCOSE RANDOM (BEAKER) (test wbbi=059) 113 mg/dL 70-105 CALCIUM (BEAKER) (test enks=218) 8.7 mg/dL 8.4-10.2 AST (SGOT) (BEAKER) (test xjfa=582) 22 U/L 5-34 ALT (SGPT) (BEAKER) (test avji=616) 15 U/L 6-55 EGFR (BEAKER) (test tnza=0201) 193 mL/min/1.73 sq m ESTIMATED GFR IS NOT ACCURATE CREATININE CLEARANCE IN PREDICTING GLOMERULAR FILTRATION RATE. ESTIMATED GFR IS NOT APPLICABLE FOR DIALYSIS PATIENTS. CBC (HEMOGRAM ONLY)2018-07-03 05:57:00* Test Item Value Reference Range Comments WHITE BLOOD CELL COUNT (BEAKER) (test qoyr=710) 7.4 K/ L 3.5-10.5 RED BLOOD CELL COUNT (BEAKER) (test ruho=060) 3.29 M/ L 3.93-5.22 HEMOGLOBIN (BEAKER) (test xcit=855) 7.8 GM/DL 11.2-15.7 HEMATOCRIT (BEAKER) (test ooas=748) 25.4 % 34.1-44.9 MEAN CORPUSCULAR VOLUME (BEAKER) (test qvdu=224) 77.2 fL 79.4-94.8 MEAN CORPUSCULAR HEMOGLOBIN (BEAKER) (test kksu=993) 23.7 pg 25.6-32.2 MEAN CORPUSCULAR HEMOGLOBIN CONC (BEAKER) (test aglh=100) 30.7 GM/DL 32.2-35.5 RED CELL DISTRIBUTION WIDTH (BEAKER) (test eskv=061) 22.5 % 11.7-14.4 PLATELET COUNT (BEAKER) (test ajki=876) 354 K/CU MM 150-450 MEAN PLATELET VOLUME (BEAKER) (test wsbw=302) 9.7 fL 9.4-12.3 NUCLEATED RED BLOOD CELLS (BEAKER) (test ujok=198) 0 /100 WBC 0-0 CBC W/PLT COUNT & AUTO [id number] 12:09:00* Test Item Value Reference Range Comments WHITE BLOOD CELL COUNT (BEAKER) (test dgev=411) 12.1 K/ L 3.5-10.5 RED BLOOD CELL COUNT (BEAKER) (test ugxa=840) 4.11 M/ L 3.93-5.22 HEMOGLOBIN (BEAKER) (test chyt=266) 9.8 GM/DL 11.2-15.7 HEMATOCRIT (BEAKER) (test toqc=931) 32.4 % 34.1-44.9 MEAN CORPUSCULAR VOLUME (BEAKER) (test ciwp=832) 78.8 fL 79.4-94.8 MEAN CORPUSCULAR HEMOGLOBIN (BEAKER) (test zrao=613) 23.8 pg 25.6-32.2 MEAN CORPUSCULAR HEMOGLOBIN CONC (BEAKER) (test emzo=033) 30.2 GM/DL 32.2-35.5 RED CELL DISTRIBUTION WIDTH (BEAKER) (test qxrx=499) 22.5 % 11.7-14.4 PLATELET COUNT (BEAKER) (test gkdv=333) 334 K/CU MM 150-450 MEAN PLATELET VOLUME (BEAKER) (test gxsn=131) 9.8 fL 9.4-12.3 NUCLEATED RED BLOOD CELLS (BEAKER) (test bgfb=464) 1 /100 WBC 0-0 (CELLAVISION MANUAL DIFF)2018-07-02 12:09:00* Test Item Value Reference Range Comments NEUTROPHILS - REL (CELLAVISION)(BEAKER) (test cknf=4653) 76 % LYMPHOCYTES - REL (CELLAVISION)(BEAKER) (test vbkt=9253) 18 % MONOCYTES - REL (CELLAVISION)(BEAKER) (test sguw=4253) 6 % NEUTROPHILS - ABS (CELLAVISION)(BEAKER) (test gtyh=4480) 9.20 K/ul 1.56-6.13 LYMPHOCYTES - ABS (CELLAVISION)(BEAKER) (test ltco=0769) 2.18 K/ul 1.18-3.74 MONOCYTES - ABS (CELLAVISION)(BEAKER) (test male=7557) 0.73 K/uL 0.24-0.36 TOTAL COUNTED (BEAKER) (test xbsk=8988) 100 WBC MORPHOLOGY (BEAKER) (test gzaw=519) Normal PLT MORPHOLOGY (BEAKER) (test asjd=877) Normal POLYCHROMATOPHILLIC RBCS(BEAKER) (test szli=150) 2+ moderate ANISOCYTOSIS (BEAKER) (test wykr=517) 2+ moderate TARGET CELLS (BEAKER) (test zkpy=095) 2+ moderate SICKLE CELLS (BEAKER) (test faqh=138) 1+ few ARTIFACT (CELLAVISION)(BEAKER) (test zouw=7573) Present PLATELET CONCENTRATION (CELLAVISION)(BEAKER) (test wmgz=1929) Adequate Received comment: User comments: Slide comments: [id number] 06:14:00* Test Item Value Reference Range Comments PHOSPHORUS (BEAKER) (test minl=148) 3.3 mg/dL 2.3-4.7 [id number] 06:14:00* Test Item Value Reference Range Comments MAGNESIUM (BEAKER) (test ukpk=371) 2.0 mg/dL 1.6-2.6 COMPREHENSIVE METABOLIC [id number] 06:14:00* Test Item Value Reference Range Comments TOTAL PROTEIN (BEAKER) (test lvpq=594) 6.4 gm/dL 6.0-8.3 ALBUMIN (BEAKER) (test ntnx=9783) 3.8 g/dL 3.5-5.0 ALKALINE PHOSPHATASE (BEAKER) (test vbcm=935) 76 U/L 40-150 BILIRUBIN TOTAL (BEAKER) (test jbqp=885) 1.1 mg/dL 0.2-1.2 SODIUM (BEAKER) (test ochv=204) 140 meq/L 136-145 POTASSIUM (BEAKER) (test mckh=795) 3.9 meq/L 3.5-5.1 CHLORIDE (BEAKER) (test vjqi=923) 112 meq/L 98-107 CO2 (BEAKER) (test sujm=082) 20 meq/L 22-29 BLOOD UREA NITROGEN (BEAKER) (test mlag=877) 5 mg/dL 7-21 CREATININE (BEAKER) (test jxsf=062) 0.52 mg/dL 0.57-1.25 GLUCOSE RANDOM (BEAKER) (test ceai=670) 72 mg/dL 70-105 CALCIUM (BEAKER) (test opfj=506) 8.8 mg/dL 8.4-10.2 AST (SGOT) (BEAKER) (test vewz=352) 24 U/L 5-34 ALT (SGPT) (BEAKER) (test tmmj=068) 11 U/L 6-55 EGFR (BEAKER) (test msbb=9225) 180 mL/min/1.73 sq m ESTIMATED GFR IS NOT ACCURATE CREATININE CLEARANCE IN PREDICTING GLOMERULAR FILTRATION RATE. ESTIMATED GFR IS NOT APPLICABLE FOR DIALYSIS PATIENTS. CALCIUM, [id number] 05:48:00* Test Item Value Reference Range Comments CALCIUM IONIZED (BEAKER) (test auop=194) 1.15 mmol/L 1.12-1.27 PH, BLOOD (BEAKER) (test hixs=9496) 7.26 CBC W/PLT COUNT & AUTO [id number] 08:22:00* Test Item Value Reference Range Comments WHITE BLOOD CELL COUNT (BEAKER) (test wnlk=056) 11.0 K/ L 3.5-10.5 RED BLOOD CELL COUNT (BEAKER) (test smoy=970) 3.40 M/ L 3.93-5.22 HEMOGLOBIN (BEAKER) (test dvnk=053) 8.3 GM/DL 11.2-15.7 HEMATOCRIT (BEAKER) (test fpak=447) 26.3 % 34.1-44.9 Patient transfused MEAN CORPUSCULAR VOLUME (BEAKER) (test wyol=235) 77.4 fL 79.4-94.8 MEAN CORPUSCULAR HEMOGLOBIN (BEAKER) (test ccpj=079) 24.4 pg 25.6-32.2 MEAN CORPUSCULAR HEMOGLOBIN CONC (BEAKER) (test xxsz=866) 31.6 GM/DL 32.2-35.5 RED CELL DISTRIBUTION WIDTH (BEAKER) (test lqts=905) 21.2 % 11.7-14.4 PLATELET COUNT (BEAKER) (test lxhw=494) 320 K/CU MM 150-450 MEAN PLATELET VOLUME (BEAKER) (test mzui=091) 9.5 fL 9.4-12.3 NUCLEATED RED BLOOD CELLS (BEAKER) (test sudb=469) 3 /100 WBC 0-0 NEUTROPHILS RELATIVE PERCENT (BEAKER) (test rpoi=722) 63 % LYMPHOCYTES RELATIVE PERCENT (BEAKER) (test rzmc=779) 20 % MONOCYTES RELATIVE PERCENT (BEAKER) (test tkaf=031) 14 % EOSINOPHILS RELATIVE PERCENT (BEAKER) (test sgpd=970) 2 % BASOPHILS RELATIVE PERCENT (BEAKER) (test pkrp=178) 1 % NEUTROPHILS ABSOLUTE COUNT (BEAKER) (test thrk=659) 6.86 K/ L 1.56-6.13 LYMPHOCYTES ABSOLUTE COUNT (BEAKER) (test zxsp=420) 2.23 K/ L 1.18-3.74 MONOCYTES ABSOLUTE COUNT (BEAKER) (test mmrn=577) 1.48 K/ L 0.24-0.36 EOSINOPHILS ABSOLUTE COUNT (BEAKER) (test jarj=343) 0.25 K/ L 0.04-0.36 BASOPHILS ABSOLUTE COUNT (BEAKER) (test ggwp=052) 0.07 K/ L 0.01-0.08 IMMATURE GRANULOCYTES-RELATIVE PERCENT (BEAKER) (test ufvf=8740) 1 % 0-1 [id number] 07:46:00* Test Item Value Reference Range Comments FERRITIN (BEAKER) (test qfua=766) 2125 ng/mL 5-275 CALCIUM, [id number] 07:03:00* Test Item Value Reference Range Comments CALCIUM IONIZED (BEAKER) (test dcys=728) 1.13 mmol/L 1.12-1.27 PH, BLOOD (BEAKER) (test mpyr=6380) 7.36 [id number] 06:39:00* Test Item Value Reference Range Comments PHOSPHORUS (BEAKER) (test mzsc=868) 4.0 mg/dL 2.3-4.7 [id number] 06:39:00* Test Item Value Reference Range Comments MAGNESIUM (BEAKER) (test mbbw=411) 2.0 mg/dL 1.6-2.6 COMPREHENSIVE METABOLIC [id number] 06:39:00* Test Item Value Reference Range Comments TOTAL PROTEIN (BEAKER) (test xqay=111) 5.6 gm/dL 6.0-8.3 ALBUMIN (BEAKER) (test cmoc=7436) 3.5 g/dL 3.5-5.0 ALKALINE PHOSPHATASE (BEAKER) (test rqit=948) 66 U/L 40-150 BILIRUBIN TOTAL (BEAKER) (test xjfl=318) 1.2 mg/dL 0.2-1.2 SODIUM (BEAKER) (test cjht=918) 140 meq/L 136-145 POTASSIUM (BEAKER) (test qlyj=023) 3.5 meq/L 3.5-5.1 CHLORIDE (BEAKER) (test iwfg=123) 110 meq/L 98-107 CO2 (BEAKER) (test oupi=676) 24 meq/L 22-29 BLOOD UREA NITROGEN (BEAKER) (test bhia=451) 6 mg/dL 7-21 CREATININE (BEAKER) (test cnap=809) 0.50 mg/dL 0.57-1.25 GLUCOSE RANDOM (BEAKER) (test gqgd=355) 115 mg/dL 70-105 CALCIUM (BEAKER) (test dszj=347) 8.4 mg/dL 8.4-10.2 AST (SGOT) (BEAKER) (test kzmi=643) 19 U/L 5-34 ALT (SGPT) (BEAKER) (test txbs=271) 8 U/L 6-55 EGFR (BEAKER) (test yzui=7716) 189 mL/min/1.73 sq m ESTIMATED GFR IS NOT ACCURATE CREATININE CLEARANCE IN PREDICTING GLOMERULAR FILTRATION RATE. ESTIMATED GFR IS NOT APPLICABLE FOR DIALYSIS PATIENTS. IRON, TIBC, % SAT. (WITHOUT FERRITIN)2018-07-01 06:37:00* Test Item Value Reference Range Comments IRON (BEAKER) (test cmjq=545) 29 ug/dL 40-160 TOTAL IRON BINDING CAPACITY (BEAKER) (test pacr=773) 119 ug/dL 250-450 IRON % SATURATION (2) (BEAKER) (test vudv=5592) 24 % 20-55 U/S, ABDOMINAL, [id number] 03:10:00Reason for exam:->abdominal painFINAL REPORT INDICATION: abdominal pain COMPARISON: Correlation to noncontrast abdominal MRI December 28, 2017 TECHNIQUE: Real-time transabdominal harp scale and color Doppler ultrasound of the abdomen. FINDINGS:Liver: Size: 20.6cm. Echogenicity: Normal. Masses/lesions: None. Surface Nodularity: None. Intrahepatic bile ducts: Normal. Common bile duct: 0.42 cm. MPV: 1.1cm. Gallbladder: Stones: Multiple. Sludge: None. Wall thickness: 0.3 cm. The gallbladder lumen is nondistended. Perichole cystic fluid: None. Sonographic Fraga's sign: No sonographic Fraga's sign. Pancreas: Head and uncinate process: Unremarkable. Body and tail: Not well-seen. Spleen: Size: 15.8cm. Echogenicity: Heterogeneous echogenicit y with multiple internal lesions. Reference lesions include a 2.3 x 3.2 lesion p osteriorly. Right kidney: Size: 14.6 x 5.4 x 5.5 cm. Parenchyma: Normal echogenicity. No cysts. No stones. Hydronephrosis: None. Left kidney: S ize: 11.3 x 5.8 x 5.6 cm. Parenchyma: Normal echogenicity. No cysts. No ston es. Hydronephrosis: None. Ascites: None. Regional Vasculature: The visible a bdominal aorta, IVC and hepatic veins are patent. Additional findings: None. IM PRESSION: Nonspecific splenic lesions again favored to represent regenerative n odules. Follow-up assessment with contrast-enhanced abdominal MRI is advised. No sonographic evidence of cholecystitis. Signed: JR Ortiz Robert MDRort Verified Date/Time: 07/01/2018 03:10:13 Reading Location: [address] Body Reading Room ALYSIS W/ REFLEX URINE [id number] 17:46:00* Test Item Value Reference Range Comments COLOR (BEAKER) (test zdbt=006) Yellow CLARITY (BEAKER) (test dicn=474) Hazy SPECIFIC GRAVITY UA (BEAKER) (test yhxh=870) 1.009 1.001-1.035 PH UA (BEAKER) (test qayc=324) 6.0 5.0-8.0 PROTEIN UA (BEAKER) (test slfs=713) Negative Negative GLUCOSE UA (BEAKER) (test utat=772) Negative Negative KETONES UA (BEAKER) (test hulo=565) Negative Negative BILIRUBIN UA (BEAKER) (test tkgx=682) Negative Negative BLOOD UA (BEAKER) (test zusj=376) Negative Negative NITRITE UA (BEAKER) (test ccbc=813) Negative Negative LEUKOCYTE ESTERASE UA (BEAKER) (test kecl=203) Negative Negative UROBILINOGEN UA (BEAKER) (test ubza=108) 0.2 mg/dL 0.2-1.0 RBC UA (BEAKER) (test qdtn=987) 0 /HPF WBC UA (BEAKER) (test uxkp=388) < /HPF MUCUS (BEAKER) (test qfbn=3682) Occasional SQUAMOUS EPITHELIAL (BEAKER) (test wxmy=501) 14 /HPF SOURCE(BEAKER) (test ajvs=6410) CBC W/PLT COUNT & AUTO [id number] 09:08:00* Test Item Value Reference Range Comments WHITE BLOOD CELL COUNT (BEAKER) (test cqtl=705) 14.9 K/ L 3.5-10.5 RED BLOOD CELL COUNT (BEAKER) (test cgpn=124) 2.81 M/ L 3.93-5.22 HEMOGLOBIN (BEAKER) (test atsu=519) 6.4 GM/DL 11.2-15.7 HEMATOCRIT (BEAKER) (test hzls=665) 20.6 % 34.1-44.9 MEAN CORPUSCULAR VOLUME (BEAKER) (test llvi=888) 73.3 fL 79.4-94.8 MEAN CORPUSCULAR HEMOGLOBIN (BEAKER) (test oswr=797) 22.8 pg 25.6-32.2 MEAN CORPUSCULAR HEMOGLOBIN CONC (BEAKER) (test cfja=251) 31.1 GM/DL 32.2-35.5 RED CELL DISTRIBUTION WIDTH (BEAKER) (test lhip=046) 21.5 % 11.7-14.4 PLATELET COUNT (BEAKER) (test bpxv=490) 381 K/CU MM 150-450 MEAN PLATELET VOLUME (BEAKER) (test notb=200) 9.8 fL 9.4-12.3 NUCLEATED RED BLOOD CELLS (BEAKER) (test vdur=638) 8 /100 WBC 0-0 (CELLAVISION MANUAL DIFF)2018-06-30 09:08:00* Test Item Value Reference Range Comments NEUTROPHILS - REL (CELLAVISION)(BEAKER) (test tbnh=5968) 75 % LYMPHOCYTES - REL (CELLAVISION)(BEAKER) (test jfmk=6188) 19 % MONOCYTES - REL (CELLAVISION)(BEAKER) (test ejro=6498) 5 % EOSINOPHILS - REL (CELLAVISION)(BEAKER) (test udzg=4690) 1 % NEUTROPHILS - ABS (CELLAVISION)(BEAKER) (test nhda=1210) 11.18 K/ul 1.56-6.13 LYMPHOCYTES - ABS (CELLAVISION)(BEAKER) (test lgvr=9315) 2.83 K/ul 1.18-3.74 MONOCYTES - ABS (CELLAVISION)(BEAKER) (test opmc=8994) 0.75 K/uL 0.24-0.36 EOSINOPHILS - ABS (CELLAVISION)(BEAKER) (test gxvi=9268) 0.15 K/uL 0.04-0.36 TOTAL COUNTED (BEAKER) (test rugd=7016) 100 MANUAL NRBC PER 100 CELLS (BEAKER) (test irjm=7296) 9 /100 WBC 0-0 WBC MORPHOLOGY (BEAKER) (test zxwk=523) Normal LARGE PLT(BEAKER) (test lsnq=6907) Present POLYCHROMATOPHILLIC RBCS(BEAKER) (test wmif=916) 2+ moderate HYPOCHROMIA (BEAKER) (test tvxt=759) 1+ few TARGET CELLS (BEAKER) (test zzvu=014) 2+ moderate SICKLE CELLS (BEAKER) (test mlod=669) 2+ moderate ARTIFACT (CELLAVISION)(BEAKER) (test ylby=5789) Present PLATELET CONCENTRATION (CELLAVISION)(BEAKER) (test qqhd=5147) Adequate Received comment: User comments: Slide comments: HEMOGLOBIN [id number] 08:59:00* Test Item Value Reference Range Comments HEMOGLOBIN A1C (BEAKER) (test wtns=977) 5.8 % 4.3-6.1 POSSIBLE HEMOGLOBIN S VARIANT NOTED IN HEMOGLOBIN A1C CHROMATOGRAPH. SUGGEST HEMOGLOBIN ELECTROPHORESIS IF CLINICALLY INDICATED. TSH/FREE T4 IF [id number] 07:29:00* Test Item Value Reference Range Comments THYROID STIMULATING HORMONE (BEAKER) (test ppiz=052) 1.63 uIU/mL 0.35-4.94 [id number] 06:37:00* Test Item Value Reference Range Comments PHOSPHORUS (BEAKER) (test dfkj=957) 3.4 mg/dL 2.3-4.7 [id number] 06:37:00* Test Item Value Reference Range Comments MAGNESIUM (BEAKER) (test ijri=776) 2.2 mg/dL 1.6-2.6 BASIC METABOLIC [id number] 06:37:00* Test Item Value Reference Range Comments SODIUM (BEAKER) (test keds=447) 142 meq/L 136-145 POTASSIUM (BEAKER) (test cnmy=588) 3.7 meq/L 3.5-5.1 CHLORIDE (BEAKER) (test zkki=378) 109 meq/L 98-107 CO2 (BEAKER) (test mpqi=892) 27 meq/L 22-29 BLOOD UREA NITROGEN (BEAKER) (test atvr=670) 2 mg/dL 7-21 CREATININE (BEAKER) (test bdum=764) 0.49 mg/dL 0.57-1.25 GLUCOSE RANDOM (BEAKER) (test wixb=766) 95 mg/dL 70-105 CALCIUM (BEAKER) (test cnxe=920) 9.1 mg/dL 8.4-10.2 EGFR (BEAKER) (test mheb=5725) 193 mL/min/1.73 sq m ESTIMATED GFR IS NOT ACCURATE CREATININE CLEARANCE IN PREDICTING GLOMERULAR FILTRATION RATE. ESTIMATED GFR IS NOT APPLICABLE FOR DIALYSIS PATIENTS. CALCIUM, [id number] 06:14:00* Test Item Value Reference Range Comments CALCIUM IONIZED (BEAKER) (test boii=390) 1.13 mmol/L 1.12-1.27 PH, BLOOD (BEAKER) (test hkyl=6424) 7.42 RETICULOCYTE [id number] 05:42:00* Test Item Value Reference Range Comments RETICULOCYTE COUNT PCT (BEAKER) (test dpvy=846) 10.0 % 0.5-1.7 RAD, CHEST, 1 VIEW, NON [id number] 15:09:00Reason for exam:->SICKLE CELL PAIN CRISISIs the patient ?->NoFINAL REPORT CLINICAL HISTORY: SICKLE CELL PAIN CRISIS TECHNIQUE: 1 view of the chest. COMPARISON: 06/16/2018 IMPRESSION: There are low lung volumes with mild prominence of the pulmonary vasculature. There is no significant appearing pleural fluid. The cardiomediastinal silhouette is magnified by technique. The bones are somewhat permeatively sclerotic compatible with the history of sickle cell. Signed: Blayne Velez MDReport Verified Date/Time: 06/29/2018 15:09:48 Reading Location: [facility] [id number] Consult Reading Room ALYSIS W/ MICROSCOPIC 2018-06-29 14:06:00* Test Item Value Reference Range Comments COLOR (BEAKER) (test aewm=669) Light Yellow CLARITY (BEAKER) (test lepa=095) Clear SPECIFIC GRAVITY UA (BEAKER) (test dbzc=845) 1.004 1.001-1.035 PH UA (BEAKER) (test kudp=838) 6.0 5.0-8.0 PROTEIN UA (BEAKER) (test hzyd=475) Negative Negative GLUCOSE UA (BEAKER) (test zttf=242) Negative Negative KETONES UA (BEAKER) (test jnrd=390) Negative Negative BILIRUBIN UA (BEAKER) (test fdav=898) Negative Negative BLOOD UA (BEAKER) (test ypgi=956) Negative Negative NITRITE UA (BEAKER) (test qtar=655) Negative Negative LEUKOCYTE ESTERASE UA (BEAKER) (test aejl=733) Negative Negative UROBILINOGEN UA (BEAKER) (test mbhk=211) 0.2 mg/dL 0.2-1.0 RBC UA (BEAKER) (test sozf=861) < /HPF WBC UA (BEAKER) (test ttut=020) < /HPF BACTERIA (BEAKER) (test swrv=717) Rare MUCUS (BEAKER) (test fcij=7612) Rare SQUAMOUS EPITHELIAL (BEAKER) (test eszw=965) 9 /HPF SOURCE(BEAKER) (test jqvf=5181) SCREEN, [id number] 14:03:00* Test Item Value Reference Range Comments TEST URINE (BEAKER) (test kezp=458) Negative BASIC METABOLIC [id number] 12:54:00* Test Item Value Reference Range Comments SODIUM (BEAKER) (test yrdw=172) 142 meq/L 136-145 POTASSIUM (BEAKER) (test vftu=363) 4.1 meq/L 3.5-5.1 CHLORIDE (BEAKER) (test fuiu=304) 108 meq/L 98-107 CO2 (BEAKER) (test zlhl=096) 24 meq/L 22-29 BLOOD UREA NITROGEN (BEAKER) (test ffpl=163) 2 mg/dL 7-21 CREATININE (BEAKER) (test yttq=448) 0.56 mg/dL 0.57-1.25 GLUCOSE RANDOM (BEAKER) (test sjgi=114) 89 mg/dL 70-105 CALCIUM (BEAKER) (test aflw=341) 10.0 mg/dL 8.4-10.2 EGFR (BEAKER) (test fgmx=5893) 166 mL/min/1.73 sq m ESTIMATED GFR IS NOT ACCURATE CREATININE CLEARANCE IN PREDICTING GLOMERULAR FILTRATION RATE. ESTIMATED GFR IS NOT APPLICABLE FOR DIALYSIS PATIENTS. RETICULOCYTE [id number] 12:53:00* Test Item Value Reference Range Comments RETICULOCYTE COUNT PCT (BEAKER) (test nusz=040) 10.4 % 0.5-1.7 CBC W/PLT COUNT & AUTO [id number] 12:53:00* Test Item Value Reference Range Comments WHITE BLOOD CELL COUNT (BEAKER) (test lbtf=329) 14.6 K/ L 3.5-10.5 RED BLOOD CELL COUNT (BEAKER) (test edju=326) 3.03 M/ L 3.93-5.22 HEMOGLOBIN (BEAKER) (test xnpv=480) 7.0 GM/DL 11.2-15.7 HEMATOCRIT (BEAKER) (test hnbc=424) 22.0 % 34.1-44.9 MEAN CORPUSCULAR VOLUME (BEAKER) (test bilb=209) 72.6 fL 79.4-94.8 MEAN CORPUSCULAR HEMOGLOBIN (BEAKER) (test gtlq=208) 23.1 pg 25.6-32.2 MEAN CORPUSCULAR HEMOGLOBIN CONC (BEAKER) (test arid=345) 31.8 GM/DL 32.2-35.5 RED CELL DISTRIBUTION WIDTH (BEAKER) (test dyqh=949) 21.4 % 11.7-14.4 PLATELET COUNT (BEAKER) (test wkvs=431) 414 K/CU MM 150-450 MEAN PLATELET VOLUME (BEAKER) (test edch=126) 10.0 fL 9.4-12.3 NUCLEATED RED BLOOD CELLS (BEAKER) (test jhui=793) 5 /100 WBC 0-0 NEUTROPHILS RELATIVE PERCENT (BEAKER) (test jgbt=133) 56 % LYMPHOCYTES RELATIVE PERCENT (BEAKER) (test ocur=969) 28 % MONOCYTES RELATIVE PERCENT (BEAKER) (test smjo=421) 10 % EOSINOPHILS RELATIVE PERCENT (BEAKER) (test edlj=668) 1 % BASOPHILS RELATIVE PERCENT (BEAKER) (test qrcl=522) 1 % NEUTROPHILS ABSOLUTE COUNT (BEAKER) (test cohm=758) 8.21 K/ L 1.56-6.13 LYMPHOCYTES ABSOLUTE COUNT (BEAKER) (test inam=285) 4.09 K/ L 1.18-3.74 MONOCYTES ABSOLUTE COUNT (BEAKER) (test rxuc=955) 1.49 K/ L 0.24-0.36 EOSINOPHILS ABSOLUTE COUNT (BEAKER) (test otue=184) 0.16 K/ L 0.04-0.36 BASOPHILS ABSOLUTE COUNT (BEAKER) (test eidu=983) 0.12 K/ L 0.01-0.08 IMMATURE GRANULOCYTES-RELATIVE PERCENT (BEAKER) (test rtdv=0294) 4 % 0-1 CBC W/PLT COUNT & AUTO [id number] 17:07:00* Test Item Value Reference Range Comments WHITE BLOOD CELL COUNT (BEAKER) (test jexw=704) 5.6 K/ L 3.5-10.5 RED BLOOD CELL COUNT (BEAKER) (test suol=670) 3.14 M/ L 3.93-5.22 HEMOGLOBIN (BEAKER) (test tpoo=684) 7.2 GM/DL 11.2-15.7 HEMATOCRIT (BEAKER) (test thqf=342) 22.9 % 34.1-44.9 MEAN CORPUSCULAR VOLUME (BEAKER) (test dwcl=965) 72.9 fL 79.4-94.8 MEAN CORPUSCULAR HEMOGLOBIN (BEAKER) (test zqyd=216) 22.9 pg 25.6-32.2 MEAN CORPUSCULAR HEMOGLOBIN CONC (BEAKER) (test tchw=203) 31.4 GM/DL 32.2-35.5 RED CELL DISTRIBUTION WIDTH (BEAKER) (test fpvu=197) 18.9 % 11.7-14.4 PLATELET COUNT (BEAKER) (test ofvl=763) 154 K/CU MM 150-450 MEAN PLATELET VOLUME (BEAKER) (test ivfg=463) 10.0 fL 9.4-12.3 NUCLEATED RED BLOOD CELLS (BEAKER) (test gwsx=708) 0 /100 WBC 0-0 NEUTROPHILS RELATIVE PERCENT (BEAKER) (test vjud=780) 66 % LYMPHOCYTES RELATIVE PERCENT (BEAKER) (test ulao=649) 17 % MONOCYTES RELATIVE PERCENT (BEAKER) (test qtke=895) 11 % EOSINOPHILS RELATIVE PERCENT (BEAKER) (test jgzi=792) 5 % BASOPHILS RELATIVE PERCENT (BEAKER) (test fjut=690) 1 % NEUTROPHILS ABSOLUTE COUNT (BEAKER) (test ejnn=119) 3.65 K/ L 1.56-6.13 LYMPHOCYTES ABSOLUTE COUNT (BEAKER) (test kwia=079) 0.97 K/ L 1.18-3.74 MONOCYTES ABSOLUTE COUNT (BEAKER) (test cswr=917) 0.60 K/ L 0.24-0.36 EOSINOPHILS ABSOLUTE COUNT (BEAKER) (test mnai=186) 0.29 K/ L 0.04-0.36 BASOPHILS ABSOLUTE COUNT (BEAKER) (test mrhp=357) 0.04 K/ L 0.01-0.08 IMMATURE GRANULOCYTES-RELATIVE PERCENT (BEAKER) (test ogxn=2619) 0 % 0-1 RETICULOCYTE [id number] 11:21:00* Test Item Value Reference Range Comments RETICULOCYTE COUNT PCT (BEAKER) (test edub=119) 3.9 % 0.5-1.7 MR, BRAIN, WITHOUT [id number] 06:28:00FINAL REPORT Exam: MRI brain without contrast. Comparison: Brain MRI 12/28/2017. Clinical indication: Stroke Technique: Multiplanar multi sequential MR imaging of the brain was performed without the administration of intravenous contrast. Findings: There is no restricted diffusion to suggest an acute infarct. There is no abnormality on susceptibility sequences to suggest hemorrhage or hemosiderin deposition. There is a 7 mm T2 hyperintense lesion in the right pituitary gland which may represent a microadenoma, noted on prior exam. There is no parenchymal mass effect, extra-axial collection, hydrocephalus or herniation. Again seen is atrophy of the right hippocampus in keeping with des al temporal sclerosis. The skull base flow-voids are seen in keeping with their patency. The visualized paranasal sinuses and mastoid air cells are clear. The orbits are unremarkable. The craniocervical junction is normal. Again seen is a diffusely altered bone marrow signal which suggests a systemic process. Impres gama:No acute infarct, mass effect or hemorrhage.Please see the body of the repo rt for additional stable findings. Signed: Pietro Turpin MDReport Verified Date/ Time: 06/20/2018 06:28:07 Reading Location: [address] Transitional Reading R oom AWAKE/ASLEEP AND [id number] 18:18:00Reason for exam:->siezure Neurophysiology Electroencephalogram Report DATE OF REPORT: DATE \\@ "M/d/yy" 06/19/18 Date(s) of Study: 06/19/2018 ACC: [id number] Start time: 1230 hrs Stop time: 1251 hrs ICD-10: R56.9 Unspecified Convulsions CPT Code: 90896 EE G: awake and asleep <40 min HISTORY: 22 year old female referred for EEG due to several days of staring with lip smacking lasting 30-40 seconds without loss of tone. She is unresponsive to voice and has post ictal amnesia for 5-1 minutes. The episodes are preceded by dyspnea, dizziness, and nausea. The patient has a medical history of sickle cell disease. She is also on Buproprion. MEDICATIONS THAT COULD AFFECT EEG: Beemer, Levetiracetam, Morphine TECHNICAL SUMMARY: This is a digital video EEG recorded with 32 input channels reviewed with bipolar and referential montages using the modified combinatorial system nomenclature. DESCRIPTION OF RECORD: Background: There was a symmetric, reactive to eye opening, and well regulated posterior dominant rhythm of 10.5 Hz. There was a well formed anterior to posterior gradient with low amplitude beta frequency activity present bi-frontally. Vertex waves were seen in stage I sleep; symmetric frontocentral spindles and k-complexes were seen in stage II sleep. Interictal Abnormalities: There were frequent right anterior temporal (FT10 maximal) sharp waves and occasional independent left anterior temporal sharp waves (FT9 maximal) seen. Both were potentiated by sleep. Activation Procedures: Hyperventilation was not performed. Photic stimulation was done from 3-31 Hz with no photoparoxysmal responses noted (1-17 Hz was done while the patient was in stage II sleep). Events: None Electrocardiogram: A single lead EKG showed normal rate, rhythm, and appearance. 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 No electrographic seizures seen. This study has changed since the prior EEG on 12/29/2017, now showing independent bitemporal sharps instead of just right temporal sharps. Dilia Ochoa MD Epilepsy Fellow [facility] N europhysiology Service I have reviewed this electroencephalogram and this repo rt and agree with its interpretation. Dary Calvert MD Neurophysiology Attendi ng W/PLT COUNT & AUTO [id number] 06:40:00* Test Item Value Reference Range Comments WHITE BLOOD CELL COUNT (BEAKER) (test jnkj=428) 7.1 K/ L 3.5-10.5 RED BLOOD CELL COUNT (BEAKER) (test ouhw=278) 2.62 M/ L 3.93-5.22 HEMOGLOBIN (BEAKER) (test hacq=231) 5.8 GM/DL 11.2-15.7 HEMATOCRIT (BEAKER) (test vdcv=829) 18.7 % 34.1-44.9 MEAN CORPUSCULAR VOLUME (BEAKER) (test soil=892) 71.4 fL 79.4-94.8 MEAN CORPUSCULAR HEMOGLOBIN (BEAKER) (test wdnd=213) 22.1 pg 25.6-32.2 MEAN CORPUSCULAR HEMOGLOBIN CONC (BEAKER) (test dywh=091) 31.0 GM/DL 32.2-35.5 RED CELL DISTRIBUTION WIDTH (BEAKER) (test eavi=629) 17.3 % 11.7-14.4 PLATELET COUNT (BEAKER) (test acsh=934) 126 K/CU MM 150-450 MEAN PLATELET VOLUME (BEAKER) (test ifwh=115) 9.9 fL 9.4-12.3 NUCLEATED RED BLOOD CELLS (BEAKER) (test lvuv=117) 1 /100 WBC 0-0 NEUTROPHILS RELATIVE PERCENT (BEAKER) (test bzmp=453) 70 % LYMPHOCYTES RELATIVE PERCENT (BEAKER) (test usxh=104) 14 % MONOCYTES RELATIVE PERCENT (BEAKER) (test peft=248) 12 % EOSINOPHILS RELATIVE PERCENT (BEAKER) (test kovc=851) 4 % BASOPHILS RELATIVE PERCENT (BEAKER) (test iuio=301) 1 % NEUTROPHILS ABSOLUTE COUNT (BEAKER) (test ijot=001) 4.95 K/ L 1.56-6.13 LYMPHOCYTES ABSOLUTE COUNT (BEAKER) (test wpxj=467) 0.99 K/ L 1.18-3.74 MONOCYTES ABSOLUTE COUNT (BEAKER) (test dqxh=291) 0.86 K/ L 0.24-0.36 EOSINOPHILS ABSOLUTE COUNT (BEAKER) (test pxuj=901) 0.25 K/ L 0.04-0.36 BASOPHILS ABSOLUTE COUNT (BEAKER) (test kxrc=402) 0.04 K/ L 0.01-0.08 IMMATURE GRANULOCYTES-RELATIVE PERCENT (BEAKER) (test rsfj=4061) 0 % 0-1 [id number] 05:56:00* Test Item Value Reference Range Comments PHOSPHORUS (BEAKER) (test gdyb=534) 3.7 mg/dL 2.3-4.7 [id number] 05:56:00* Test Item Value Reference Range Comments MAGNESIUM (BEAKER) (test osvs=811) 2.3 mg/dL 1.6-2.6 BASIC METABOLIC [id number] 05:56:00* Test Item Value Reference Range Comments SODIUM (BEAKER) (test ydre=892) 141 meq/L 136-145 POTASSIUM (BEAKER) (test gcql=086) 3.9 meq/L 3.5-5.1 CHLORIDE (BEAKER) (test qfek=487) 108 meq/L 98-107 CO2 (BEAKER) (test iqqa=780) 28 meq/L 22-29 BLOOD UREA NITROGEN (BEAKER) (test sttu=709) 4 mg/dL 7-21 CREATININE (BEAKER) (test qhag=214) 0.51 mg/dL 0.57-1.25 GLUCOSE RANDOM (BEAKER) (test jhtl=221) 88 mg/dL 70-105 CALCIUM (BEAKER) (test jnqx=842) 8.9 mg/dL 8.4-10.2 EGFR (BEAKER) (test rkwn=7013) 185 mL/min/1.73 sq m ESTIMATED GFR IS NOT ACCURATE CREATININE CLEARANCE IN PREDICTING GLOMERULAR FILTRATION RATE. ESTIMATED GFR IS NOT APPLICABLE FOR DIALYSIS PATIENTS. [id number] 07:43:00* Test Item Value Reference Range Comments FERRITIN (BEAKER) (test oeax=071) 2281 ng/mL 5-275 VITAMIN B12 AND [id number] 07:24:00* Test Item Value Reference Range Comments VITAMIN B12 (BEAKER) (test uifb=665) 853 pg/mL 213-816 FOLATE (BEAKER) (test uste=304) 15.1 ng/mL >=7.0 IRON, TIBC, % SAT. (WITHOUT FERRITIN)2018-06-18 06:47:00* Test Item Value Reference Range Comments IRON (BEAKER) (test lhss=391) 14 ug/dL 40-160 TOTAL IRON BINDING CAPACITY (BEAKER) (test llmr=172) 133 ug/dL 250-450 IRON % SATURATION (2) (BEAKER) (test uhlp=4027) 11 % 20-55 [id number] 06:28:00* Test Item Value Reference Range Comments PHOSPHORUS (BEAKER) (test moor=604) 3.2 mg/dL 2.3-4.7 [id number] 06:28:00* Test Item Value Reference Range Comments MAGNESIUM (BEAKER) (test kquy=295) 2.1 mg/dL 1.6-2.6 BASIC METABOLIC [id number] 06:28:00* Test Item Value Reference Range Comments SODIUM (BEAKER) (test wybk=826) 141 meq/L 136-145 POTASSIUM (BEAKER) (test vjmo=568) 3.9 meq/L 3.5-5.1 CHLORIDE (BEAKER) (test lrcg=620) 108 meq/L 98-107 CO2 (BEAKER) (test pohg=604) 27 meq/L 22-29 BLOOD UREA NITROGEN (BEAKER) (test gdtz=707) 4 mg/dL 7-21 CREATININE (BEAKER) (test eaxq=812) 0.54 mg/dL 0.57-1.25 GLUCOSE RANDOM (BEAKER) (test pijd=050) 85 mg/dL 70-105 CALCIUM (BEAKER) (test mrfs=224) 9.1 mg/dL 8.4-10.2 EGFR (BEAKER) (test sdoq=7646) 173 mL/min/1.73 sq m ESTIMATED GFR IS NOT ACCURATE CREATININE CLEARANCE IN PREDICTING GLOMERULAR FILTRATION RATE. ESTIMATED GFR IS NOT APPLICABLE FOR DIALYSIS PATIENTS. RETICULOCYTE [id number] 06:19:00* Test Item Value Reference Range Comments RETICULOCYTE COUNT PCT (BEAKER) (test fmjv=472) 6.8 % 0.5-1.7 CBC W/PLT COUNT & AUTO [id number] 06:19:00* Test Item Value Reference Range Comments WHITE BLOOD CELL COUNT (BEAKER) (test eooa=848) 9.6 K/ L 3.5-10.5 RED BLOOD CELL COUNT (BEAKER) (test dhez=676) 2.82 M/ L 3.93-5.22 HEMOGLOBIN (BEAKER) (test ehdv=703) 6.3 GM/DL 11.2-15.7 HEMATOCRIT (BEAKER) (test erkq=532) 20.3 % 34.1-44.9 MEAN CORPUSCULAR VOLUME (BEAKER) (test hqln=804) 72.0 fL 79.4-94.8 MEAN CORPUSCULAR HEMOGLOBIN (BEAKER) (test buuz=123) 22.3 pg 25.6-32.2 MEAN CORPUSCULAR HEMOGLOBIN CONC (BEAKER) (test duub=805) 31.0 GM/DL 32.2-35.5 RED CELL DISTRIBUTION WIDTH (BEAKER) (test lmdy=856) 17.5 % 11.7-14.4 PLATELET COUNT (BEAKER) (test eyoq=831) 163 K/CU MM 150-450 MEAN PLATELET VOLUME (BEAKER) (test spbv=000) 10.5 fL 9.4-12.3 NUCLEATED RED BLOOD CELLS (BEAKER) (test hybw=741) 2 /100 WBC 0-0 NEUTROPHILS RELATIVE PERCENT (BEAKER) (test yhar=582) 79 % LYMPHOCYTES RELATIVE PERCENT (BEAKER) (test nrwn=971) 9 % MONOCYTES RELATIVE PERCENT (BEAKER) (test zolo=912) 10 % EOSINOPHILS RELATIVE PERCENT (BEAKER) (test redy=701) 1 % BASOPHILS RELATIVE PERCENT (BEAKER) (test qrzi=712) 0 % NEUTROPHILS ABSOLUTE COUNT (BEAKER) (test uuwl=412) 7.56 K/ L 1.56-6.13 LYMPHOCYTES ABSOLUTE COUNT (BEAKER) (test rhdh=805) 0.86 K/ L 1.18-3.74 MONOCYTES ABSOLUTE COUNT (BEAKER) (test zsxm=844) 0.96 K/ L 0.24-0.36 EOSINOPHILS ABSOLUTE COUNT (BEAKER) (test laqq=317) 0.09 K/ L 0.04-0.36 BASOPHILS ABSOLUTE COUNT (BEAKER) (test vfpl=713) 0.02 K/ L 0.01-0.08 IMMATURE GRANULOCYTES-RELATIVE PERCENT (BEAKER) (test dwhg=6204) 1 % 0-1 CBC W/PLT COUNT & AUTO [id number] 07:57:00* Test Item Value Reference Range Comments WHITE BLOOD CELL COUNT (BEAKER) (test iarg=486) 15.6 K/ L 3.5-10.5 RED BLOOD CELL COUNT (BEAKER) (test csut=591) 3.14 M/ L 3.93-5.22 HEMOGLOBIN (BEAKER) (test yzss=471) 6.9 GM/DL 11.2-15.7 HEMATOCRIT (BEAKER) (test zknq=656) 22.3 % 34.1-44.9 MEAN CORPUSCULAR VOLUME (BEAKER) (test hkkt=719) 71.0 fL 79.4-94.8 MEAN CORPUSCULAR HEMOGLOBIN (BEAKER) (test hkah=088) 22.0 pg 25.6-32.2 MEAN CORPUSCULAR HEMOGLOBIN CONC (BEAKER) (test lzht=584) 30.9 GM/DL 32.2-35.5 RED CELL DISTRIBUTION WIDTH (BEAKER) (test mlzm=446) 19.1 % 11.7-14.4 PLATELET COUNT (BEAKER) (test mxsb=108) 215 K/CU MM 150-450 MEAN PLATELET VOLUME (BEAKER) (test vagu=946) 10.0 fL 9.4-12.3 NUCLEATED RED BLOOD CELLS (BEAKER) (test kpqg=549) 3 /100 WBC 0-0 (CELLAVISION MANUAL DIFF)2018-06-17 07:57:00* Test Item Value Reference Range Comments NEUTROPHILS - REL (CELLAVISION)(BEAKER) (test wumk=3898) 91 % LYMPHOCYTES - REL (CELLAVISION)(BEAKER) (test kpxb=2421) 4 % MONOCYTES - REL (CELLAVISION)(BEAKER) (test fwlv=1216) 5 % NEUTROPHILS - ABS (CELLAVISION)(BEAKER) (test ykbx=8543) 14.20 K/ul 1.56-6.13 LYMPHOCYTES - ABS (CELLAVISION)(BEAKER) (test rwjh=2997) 0.62 K/ul 1.18-3.74 MONOCYTES - ABS (CELLAVISION)(BEAKER) (test gpep=7672) 0.78 K/uL 0.24-0.36 TOTAL COUNTED (BEAKER) (test vdix=5651) 100 MANUAL NRBC PER 100 CELLS (BEAKER) (test zzco=2996) 8 /100 WBC 0-0 WBC MORPHOLOGY (BEAKER) (test egtv=376) Normal LARGE PLT(BEAKER) (test jubm=7843) Present POLYCHROMATOPHILLIC RBCS(BEAKER) (test qula=803) 2+ moderate HYPOCHROMIA (BEAKER) (test cpgn=289) 2+ moderate TARGET CELLS (BEAKER) (test idlq=295) 2+ moderate SICKLE CELLS (BEAKER) (test vhjs=480) 2+ moderate ARTIFACT (CELLAVISION)(BEAKER) (test munq=3054) Present PLATELET CONCENTRATION (CELLAVISION)(BEAKER) (test fxfc=2051) Adequate Received comment: User comments: Slide comments: [id number] 05:59:00* Test Item Value Reference Range Comments PHOSPHORUS (BEAKER) (test drwc=023) 4.5 mg/dL 2.3-4.7 [id number] 05:59:00* Test Item Value Reference Range Comments MAGNESIUM (BEAKER) (test ogsb=187) 2.3 mg/dL 1.6-2.6 BASIC METABOLIC [id number] 05:59:00* Test Item Value Reference Range Comments SODIUM (BEAKER) (test wezt=386) 140 meq/L 136-145 POTASSIUM (BEAKER) (test rchm=321) 3.9 meq/L 3.5-5.1 CHLORIDE (BEAKER) (test gmdg=321) 107 meq/L 98-107 CO2 (BEAKER) (test bxxx=559) 26 meq/L 22-29 BLOOD UREA NITROGEN (BEAKER) (test xlhs=493) 4 mg/dL 7-21 CREATININE (BEAKER) (test dwud=895) 0.56 mg/dL 0.57-1.25 GLUCOSE RANDOM (BEAKER) (test tnnq=182) 104 mg/dL 70-105 CALCIUM (BEAKER) (test xnti=775) 9.3 mg/dL 8.4-10.2 EGFR (BEAKER) (test bzfr=5070) 166 mL/min/1.73 sq m ESTIMATED GFR IS NOT ACCURATE CREATININE CLEARANCE IN PREDICTING GLOMERULAR FILTRATION RATE. ESTIMATED GFR IS NOT APPLICABLE FOR DIALYSIS PATIENTS. SCREEN, [id number] 19:11:00* Test Item Value Reference Range Comments TEST URINE (BEAKER) (test fvdc=927) Negative RAD, CHEST, 1 VIEW, NON [id number] 17:31:00Reason for exam:->chest painIs the patient ?->UnknownShould this be performed at the bedside?->YesFINAL REPORT INDICATION: chest pain TECHNIQUE: Chest radi ograph, single view, portable technique. FINDINGS / IMPRESSION: There is no evid ence of pneumonia or pulmonary edema. Cardiac and mediastinal contours are unrem arkable. No pleural effusion or pneumothorax is demonstrated. Osseous structures are unremarkable. Catheter line with a electrode device projects over the chest and may be extracorporeal. Signed: Beatriz Pa MDReport Verified Date/Time: 06/16/2018 17:31:03 Reading Location: [facility] C013X [facility] Consult Reading Room ALYSIS W/ [id number] 16:49:00* Test Item Value Reference Range Comments COLOR (BEAKER) (test cjph=079) Colorless CLARITY (BEAKER) (test rord=377) Clear SPECIFIC GRAVITY UA (BEAKER) (test hszw=060) 1.001 1.001-1.035 PH UA (BEAKER) (test dbgy=807) 6.5 5.0-8.0 PROTEIN UA (BEAKER) (test vjll=526) Negative Negative GLUCOSE UA (BEAKER) (test qvjs=926) Negative Negative KETONES UA (BEAKER) (test hkcg=447) Negative Negative BILIRUBIN UA (BEAKER) (test qgtx=005) Negative Negative BLOOD UA (BEAKER) (test tjwn=074) Trace Negative NITRITE UA (BEAKER) (test mnxl=124) Negative Negative LEUKOCYTE ESTERASE UA (BEAKER) (test uupl=674) Negative Negative UROBILINOGEN UA (BEAKER) (test jzbc=743) 0.2 mg/dL 0.2-1.0 RBC UA (BEAKER) (test oaor=888) 0 /HPF WBC UA (BEAKER) (test jjps=260) 0 /HPF SQUAMOUS EPITHELIAL (BEAKER) (test yqfb=631) < /HPF SOURCE(BEAKER) (test bovp=2784) COMPREHENSIVE METABOLIC [id number] 16:11:00* Test Item Value Reference Range Comments TOTAL PROTEIN (BEAKER) (test fzbn=366) 6.5 gm/dL 6.0-8.3 ALBUMIN (BEAKER) (test nxah=0581) 4.3 g/dL 3.5-5.0 ALKALINE PHOSPHATASE (BEAKER) (test eigy=154) 79 U/L 40-150 BILIRUBIN TOTAL (BEAKER) (test gwfr=744) 1.8 mg/dL 0.2-1.2 SODIUM (BEAKER) (test vxkt=554) 142 meq/L 136-145 POTASSIUM (BEAKER) (test jynl=401) 4.1 meq/L 3.5-5.1 CHLORIDE (BEAKER) (test tcqb=819) 108 meq/L 98-107 CO2 (BEAKER) (test iuqi=605) 26 meq/L 22-29 BLOOD UREA NITROGEN (BEAKER) (test ofrx=301) 4 mg/dL 7-21 CREATININE (BEAKER) (test lnsd=749) 0.59 mg/dL 0.57-1.25 GLUCOSE RANDOM (BEAKER) (test tilq=749) 94 mg/dL 70-105 CALCIUM (BEAKER) (test gmfc=878) 9.7 mg/dL 8.4-10.2 AST (SGOT) (BEAKER) (test axlv=333) 31 U/L 5-34 ALT (SGPT) (BEAKER) (test wttt=718) 12 U/L 6-55 EGFR (BEAKER) (test cyxl=6800) 156 mL/min/1.73 sq m ESTIMATED GFR IS NOT ACCURATE CREATININE CLEARANCE IN PREDICTING GLOMERULAR FILTRATION RATE. ESTIMATED GFR IS NOT APPLICABLE FOR DIALYSIS PATIENTS. Specimen slightly ictericCBC W/PLT COUNT & AUTO [id number] 16:03:00 * Test Item Value Reference Range Comments WHITE BLOOD CELL COUNT (BEAKER) (test rrli=880) 18.3 K/ L 3.5-10.5 RED BLOOD CELL COUNT (BEAKER) (test yqtm=975) 2.94 M/ L 3.93-5.22 HEMOGLOBIN (BEAKER) (test gdjr=689) 6.7 GM/DL 11.2-15.7 HEMATOCRIT (BEAKER) (test qqwy=462) 20.9 % 34.1-44.9 MEAN CORPUSCULAR VOLUME (BEAKER) (test vtcb=202) 71.1 fL 79.4-94.8 MEAN CORPUSCULAR HEMOGLOBIN (BEAKER) (test rrtq=037) 22.8 pg 25.6-32.2 MEAN CORPUSCULAR HEMOGLOBIN CONC (BEAKER) (test cotj=697) 32.1 GM/DL 32.2-35.5 RED CELL DISTRIBUTION WIDTH (BEAKER) (test rygc=956) 20.0 % 11.7-14.4 PLATELET COUNT (BEAKER) (test dbnh=427) 216 K/CU MM 150-450 MEAN PLATELET VOLUME (BEAKER) (test izmg=635) 10.0 fL 9.4-12.3 NUCLEATED RED BLOOD CELLS (BEAKER) (test vjej=887) 3 /100 WBC 0-0 NEUTROPHILS RELATIVE PERCENT (BEAKER) (test lbqn=312) 80 % LYMPHOCYTES RELATIVE PERCENT (BEAKER) (test hizq=590) 9 % MONOCYTES RELATIVE PERCENT (BEAKER) (test wvme=960) 8 % EOSINOPHILS RELATIVE PERCENT (BEAKER) (test xsmx=613) 0 % BASOPHILS RELATIVE PERCENT (BEAKER) (test dvod=400) 1 % NEUTROPHILS ABSOLUTE COUNT (BEAKER) (test xrwz=153) 14.64 K/ L 1.56-6.13 LYMPHOCYTES ABSOLUTE COUNT (BEAKER) (test lree=080) 1.71 K/ L 1.18-3.74 MONOCYTES ABSOLUTE COUNT (BEAKER) (test tato=809) 1.45 K/ L 0.24-0.36 EOSINOPHILS ABSOLUTE COUNT (BEAKER) (test miac=197) 0.02 K/ L 0.04-0.36 BASOPHILS ABSOLUTE COUNT (BEAKER) (test sdwx=580) 0.09 K/ L 0.01-0.08 IMMATURE GRANULOCYTES-RELATIVE PERCENT (BEAKER) (test mdmk=0858) 2 % 0-1 RETICULOCYTE [id number] 16:02:00* Test Item Value Reference Range Comments RETICULOCYTE COUNT PCT (BEAKER) (test knvt=471) 8.6 % 0.5-1.7 BLOOD [id number] 00:00:00* Test Item Value Reference Range Comments CULTURE (BEAKER) (test llot=3372) No growth in 5 days RAD, CHEST, 2 [id number] 22:42:00Reason for exam:->leukocytosisFINAL REPORT Examination: Two view Chest X-ray. CLINICAL HISTORY: Leukocytosis COMPARISON: 02/24/2018 The cardiomediastinal and hilar contours are unremarkable. The lung volumes are low. Central pulmonary vascular congestion and perihilar interstitial opacities suggest pulmonary edema. There are small bilateral pleural effusions. Bibasilar opacities may reflect a combination of atelectasis, edema and effusions but pneumonitis should be excluded clinically. There is no pneumothorax or acute bony abnormality. The vertebral body compr ession deformities suggested an underlying diagnosis of sickle cell anemia. Sign ed: Ernie Sawyer Verified Date/Time: 03/03/2018 22:42:39 Reading Loca tion: [facility] [address] [place] [address] Reading Room , MANDIBLE, MIN 4 [id number] 22:20:00Reason for exam:->post molar pain bilatFINAL REPORT CLINICAL HISTORY: Posterior molar pain bilaterally COMPARISON: None. FINDINGS: 5 views of the mandible are submitted. There is no acute fracture, malalignment, destructive bony lesion or significant periapical lucency related to the teeth. The visualized skeleton is otherwise unremarkable as are the surrounding soft tissues. Signed: Ernie Sawyer Verified Date/Time: 03/03/2018 22:20:44 Reading Location: [address] Reading Room D [id number] 18:00:00* Test Item Value Reference Range Comments CULTURE (BEAKER) (test npqn=7775) No growth in 5 days CBC W/PLT COUNT & AUTO [id number] 11:59:00* Test Item Value Reference Range Comments WHITE BLOOD CELL COUNT (BEAKER) (test iwyi=261) 12.6 K/ L 3.5-10.5 RED BLOOD CELL COUNT (BEAKER) (test ckan=983) 2.58 M/ L 3.93-5.22 HEMOGLOBIN (BEAKER) (test oueg=266) 6.1 GM/DL 11.2-15.7 HEMATOCRIT (BEAKER) (test wqqr=489) 19.2 % 34.1-44.9 MEAN CORPUSCULAR VOLUME (BEAKER) (test zaag=957) 74.4 fL 79.4-94.8 MEAN CORPUSCULAR HEMOGLOBIN (BEAKER) (test qzzt=518) 23.6 pg 25.6-32.2 MEAN CORPUSCULAR HEMOGLOBIN CONC (BEAKER) (test vusf=274) 31.8 GM/DL 32.2-35.5 RED CELL DISTRIBUTION WIDTH (BEAKER) (test qmic=835) 25.5 % 11.7-14.4 PLATELET COUNT (BEAKER) (test kaqb=245) 316 K/CU MM 150-450 MEAN PLATELET VOLUME (BEAKER) (test xmzs=418) 10.1 fL 9.4-12.3 NUCLEATED RED BLOOD CELLS (BEAKER) (test keur=984) 9 /100 WBC 0-0 BASIC METABOLIC [id number] 07:11:00* Test Item Value Reference Range Comments SODIUM (BEAKER) (test hupf=772) 141 meq/L 136-145 POTASSIUM (BEAKER) (test hngp=719) 3.0 meq/L 3.5-5.1 CHLORIDE (BEAKER) (test ypcm=021) 110 meq/L 98-107 CO2 (BEAKER) (test cbel=426) 24 meq/L 22-29 BLOOD UREA NITROGEN (BEAKER) (test kvtu=135) 3 mg/dL 7-21 CREATININE (BEAKER) (test cdzx=911) 0.46 mg/dL 0.57-1.25 GLUCOSE RANDOM (BEAKER) (test wexc=800) 85 mg/dL 70-105 CALCIUM (BEAKER) (test imdz=367) 8.5 mg/dL 8.4-10.2 EGFR (BEAKER) (test rqez=1541) 208 mL/min/1.73 sq m ESTIMATED GFR IS NOT ACCURATE CREATININE CLEARANCE IN PREDICTING GLOMERULAR FILTRATION RATE. ESTIMATED GFR IS NOT APPLICABLE FOR DIALYSIS PATIENTS. Specimen slightly ictericBASIC METABOLIC [id number] 06:42:00* Test Item Value Reference Range Comments SODIUM (BEAKER) (test helz=903) 143 meq/L 136-145 POTASSIUM (BEAKER) (test xgut=342) 3.3 meq/L 3.5-5.1 Specimen slightly hemolyzed CHLORIDE (BEAKER) (test hdpz=763) 113 meq/L 98-107 CO2 (BEAKER) (test fcgw=425) 20 meq/L 22-29 BLOOD UREA NITROGEN (BEAKER) (test opoq=604) 5 mg/dL 7-21 CREATININE (BEAKER) (test kptd=946) 0.43 mg/dL 0.57-1.25 Specimen slightly hemolyzed GLUCOSE RANDOM (BEAKER) (test zfqv=927) 83 mg/dL 70-105 CALCIUM (BEAKER) (test pepz=951) 8.5 mg/dL 8.4-10.2 EGFR (BEAKER) (test lfhi=4496) 225 mL/min/1.73 sq m ESTIMATED GFR IS NOT ACCURATE CREATININE CLEARANCE IN PREDICTING GLOMERULAR FILTRATION RATE. ESTIMATED GFR IS NOT APPLICABLE FOR DIALYSIS PATIENTS. Specimen slightly ictericCBC W/PLT COUNT & AUTO [id number] 06:41:00 * Test Item Value Reference Range Comments WHITE BLOOD CELL COUNT (BEAKER) (test arex=160) 14.5 K/ L 3.5-10.5 RED BLOOD CELL COUNT (BEAKER) (test xpgf=570) 2.53 M/ L 3.93-5.22 HEMOGLOBIN (BEAKER) (test eqsk=813) 6.1 GM/DL 11.2-15.7 HEMATOCRIT (BEAKER) (test jbnj=228) 19.0 % 34.1-44.9 MEAN CORPUSCULAR VOLUME (BEAKER) (test csbs=906) 75.1 fL 79.4-94.8 MEAN CORPUSCULAR HEMOGLOBIN (BEAKER) (test fzbu=048) 24.1 pg 25.6-32.2 MEAN CORPUSCULAR HEMOGLOBIN CONC (BEAKER) (test kcaz=650) 32.1 GM/DL 32.2-35.5 RED CELL DISTRIBUTION WIDTH (BEAKER) (test apvi=498) 25.1 % 11.7-14.4 PLATELET COUNT (BEAKER) (test lupv=869) 247 K/CU MM 150-450 MEAN PLATELET VOLUME (BEAKER) (test qbol=906) 10.2 fL 9.4-12.3 NUCLEATED RED BLOOD CELLS (BEAKER) (test omyf=785) 2 /100 WBC 0-0 NEUTROPHILS RELATIVE PERCENT (BEAKER) (test nwki=818) 78 % LYMPHOCYTES RELATIVE PERCENT (BEAKER) (test hpnl=381) 10 % MONOCYTES RELATIVE PERCENT (BEAKER) (test hhkv=434) 10 % EOSINOPHILS RELATIVE PERCENT (BEAKER) (test xlhm=999) 1 % BASOPHILS RELATIVE PERCENT (BEAKER) (test wifu=460) 0 % NEUTROPHILS ABSOLUTE COUNT (BEAKER) (test vdfq=210) 11.28 K/ L 1.56-6.13 LYMPHOCYTES ABSOLUTE COUNT (BEAKER) (test phgs=210) 1.38 K/ L 1.18-3.74 MONOCYTES ABSOLUTE COUNT (BEAKER) (test pdvn=553) 1.47 K/ L 0.24-0.36 EOSINOPHILS ABSOLUTE COUNT (BEAKER) (test nobg=935) 0.19 K/ L 0.04-0.36 BASOPHILS ABSOLUTE COUNT (BEAKER) (test abph=403) 0.04 K/ L 0.01-0.08 IMMATURE GRANULOCYTES-RELATIVE PERCENT (BEAKER) (test nmfm=3707) 1 % 0-1 BASIC METABOLIC [id number] 05:15:00* Test Item Value Reference Range Comments SODIUM (BEAKER) (test sktw=481) 142 meq/L 136-145 POTASSIUM (BEAKER) (test tmfg=776) 3.2 meq/L 3.5-5.1 CHLORIDE (BEAKER) (test ffnu=808) 112 meq/L 98-107 CO2 (BEAKER) (test immu=331) 23 meq/L 22-29 BLOOD UREA NITROGEN (BEAKER) (test vcwt=277) 3 mg/dL 7-21 CREATININE (BEAKER) (test dehr=435) 0.43 mg/dL 0.57-1.25 GLUCOSE RANDOM (BEAKER) (test baxn=744) 89 mg/dL 70-105 CALCIUM (BEAKER) (test tygo=852) 8.8 mg/dL 8.4-10.2 EGFR (BEAKER) (test ipwj=4700) 225 mL/min/1.73 sq m ESTIMATED GFR IS NOT ACCURATE CREATININE CLEARANCE IN PREDICTING GLOMERULAR FILTRATION RATE. ESTIMATED GFR IS NOT APPLICABLE FOR DIALYSIS PATIENTS. Specimen slightly ictericCBC W/PLT COUNT & AUTO [id number] 05:10:00 * Test Item Value Reference Range Comments WHITE BLOOD CELL COUNT (BEAKER) (test gths=291) 9.8 K/ L 3.5-10.5 RED BLOOD CELL COUNT (BEAKER) (test fjtw=298) 2.67 M/ L 3.93-5.22 HEMOGLOBIN (BEAKER) (test soof=367) 6.3 GM/DL 11.2-15.7 HEMATOCRIT (BEAKER) (test gwlg=262) 20.2 % 34.1-44.9 MEAN CORPUSCULAR VOLUME (BEAKER) (test wwlk=499) 75.7 fL 79.4-94.8 MEAN CORPUSCULAR HEMOGLOBIN (BEAKER) (test icei=402) 23.6 pg 25.6-32.2 MEAN CORPUSCULAR HEMOGLOBIN CONC (BEAKER) (test nebs=188) 31.2 GM/DL 32.2-35.5 RED CELL DISTRIBUTION WIDTH (BEAKER) (test onkg=095) 22.4 % 11.7-14.4 PLATELET COUNT (BEAKER) (test kzzg=336) 218 K/CU MM 150-450 MEAN PLATELET VOLUME (BEAKER) (test ufjo=823) 10.3 fL 9.4-12.3 NUCLEATED RED BLOOD CELLS (BEAKER) (test qugr=939) 3 /100 WBC 0-0 NEUTROPHILS RELATIVE PERCENT (BEAKER) (test gzyc=809) 63 % LYMPHOCYTES RELATIVE PERCENT (BEAKER) (test czqi=727) 22 % MONOCYTES RELATIVE PERCENT (BEAKER) (test gobc=693) 11 % EOSINOPHILS RELATIVE PERCENT (BEAKER) (test oxme=779) 3 % BASOPHILS RELATIVE PERCENT (BEAKER) (test afiu=238) 0 % NEUTROPHILS ABSOLUTE COUNT (BEAKER) (test bwvl=694) 6.19 K/ L 1.56-6.13 LYMPHOCYTES ABSOLUTE COUNT (BEAKER) (test hvgy=563) 2.10 K/ L 1.18-3.74 MONOCYTES ABSOLUTE COUNT (BEAKER) (test iefy=596) 1.08 K/ L 0.24-0.36 EOSINOPHILS ABSOLUTE COUNT (BEAKER) (test aktj=027) 0.32 K/ L 0.04-0.36 BASOPHILS ABSOLUTE COUNT (BEAKER) (test vnim=940) 0.04 K/ L 0.01-0.08 IMMATURE GRANULOCYTES-RELATIVE PERCENT (BEAKER) (test vylx=3227) 0 % 0-1 BASIC METABOLIC [id number] 06:48:00* Test Item Value Reference Range Comments SODIUM (BEAKER) (test aqvg=919) 142 meq/L 136-145 POTASSIUM (BEAKER) (test pkqj=621) 3.7 meq/L 3.5-5.1 CHLORIDE (BEAKER) (test awwv=412) 116 meq/L 98-107 CO2 (BEAKER) (test erfc=493) 18 meq/L 22-29 BLOOD UREA NITROGEN (BEAKER) (test wwvl=734) 4 mg/dL 7-21 CREATININE (BEAKER) (test xeko=388) 0.47 mg/dL 0.57-1.25 GLUCOSE RANDOM (BEAKER) (test kwga=836) 87 mg/dL 70-105 CALCIUM (BEAKER) (test ztlq=692) 8.2 mg/dL 8.4-10.2 EGFR (BEAKER) (test vhqd=2557) 203 mL/min/1.73 sq m ESTIMATED GFR IS NOT ACCURATE CREATININE CLEARANCE IN PREDICTING GLOMERULAR FILTRATION RATE. ESTIMATED GFR IS NOT APPLICABLE FOR DIALYSIS PATIENTS. CBC W/PLT COUNT & AUTO [id number] 06:38:00* Test Item Value Reference Range Comments WHITE BLOOD CELL COUNT (BEAKER) (test mgyr=808) 10.1 K/ L 3.5-10.5 RED BLOOD CELL COUNT (BEAKER) (test srjy=867) 2.86 M/ L 3.93-5.22 HEMOGLOBIN (BEAKER) (test mevz=066) 6.8 GM/DL 11.2-15.7 HEMATOCRIT (BEAKER) (test dvuw=436) 22.2 % 34.1-44.9 MEAN CORPUSCULAR VOLUME (BEAKER) (test bmse=355) 77.6 fL 79.4-94.8 MEAN CORPUSCULAR HEMOGLOBIN (BEAKER) (test xluj=314) 23.8 pg 25.6-32.2 MEAN CORPUSCULAR HEMOGLOBIN CONC (BEAKER) (test obua=214) 30.6 GM/DL 32.2-35.5 RED CELL DISTRIBUTION WIDTH (BEAKER) (test nljm=881) 19.9 % 11.7-14.4 PLATELET COUNT (BEAKER) (test yyth=285) 203 K/CU MM 150-450 MEAN PLATELET VOLUME (BEAKER) (test hgjc=537) 11.0 fL 9.4-12.3 NUCLEATED RED BLOOD CELLS (BEAKER) (test ryjk=894) 3 /100 WBC 0-0 NEUTROPHILS RELATIVE PERCENT (BEAKER) (test npdo=089) 62 % LYMPHOCYTES RELATIVE PERCENT (BEAKER) (test euqz=850) 23 % MONOCYTES RELATIVE PERCENT (BEAKER) (test cgtp=006) 11 % EOSINOPHILS RELATIVE PERCENT (BEAKER) (test qqlk=717) 2 % BASOPHILS RELATIVE PERCENT (BEAKER) (test exsk=155) 1 % NEUTROPHILS ABSOLUTE COUNT (BEAKER) (test bioe=109) 6.29 K/ L 1.56-6.13 LYMPHOCYTES ABSOLUTE COUNT (BEAKER) (test rgry=148) 2.28 K/ L 1.18-3.74 MONOCYTES ABSOLUTE COUNT (BEAKER) (test noxu=044) 1.11 K/ L 0.24-0.36 EOSINOPHILS ABSOLUTE COUNT (BEAKER) (test jwye=997) 0.23 K/ L 0.04-0.36 BASOPHILS ABSOLUTE COUNT (BEAKER) (test vfrj=045) 0.09 K/ L 0.01-0.08 IMMATURE GRANULOCYTES-RELATIVE PERCENT (BEAKER) (test rxtf=9149) 1 % 0-1 URINE [id number] 15:17:00* Test Item Value Reference Range Comments CULTURE (BEAKER) (test fngo=2812) <10,000 col/mL skin lola CBC W/PLT COUNT & AUTO [id number] 08:20:00* Test Item Value Reference Range Comments WHITE BLOOD CELL COUNT (BEAKER) (test owpd=471) 7.6 K/ L 3.5-10.5 RED BLOOD CELL COUNT (BEAKER) (test erut=883) 2.53 M/ L 3.93-5.22 HEMOGLOBIN (BEAKER) (test ojkx=224) 5.9 GM/DL 11.2-15.7 HEMATOCRIT (BEAKER) (test bjmc=162) 19.0 % 34.1-44.9 MEAN CORPUSCULAR VOLUME (BEAKER) (test tneg=322) 75.1 fL 79.4-94.8 MEAN CORPUSCULAR HEMOGLOBIN (BEAKER) (test czet=078) 23.3 pg 25.6-32.2 MEAN CORPUSCULAR HEMOGLOBIN CONC (BEAKER) (test sslc=383) 31.1 GM/DL 32.2-35.5 RED CELL DISTRIBUTION WIDTH (BEAKER) (test coay=196) 18.2 % 11.7-14.4 PLATELET COUNT (BEAKER) (test boyr=513) 174 K/CU MM 150-450 MEAN PLATELET VOLUME (BEAKER) (test stcb=868) 10.6 fL 9.4-12.3 NUCLEATED RED BLOOD CELLS (BEAKER) (test bjpu=791) 4 /100 WBC 0-0 NEUTROPHILS RELATIVE PERCENT (BEAKER) (test lprs=882) 49 % LYMPHOCYTES RELATIVE PERCENT (BEAKER) (test hsfd=424) 32 % MONOCYTES RELATIVE PERCENT (BEAKER) (test guvj=616) 15 % EOSINOPHILS RELATIVE PERCENT (BEAKER) (test yodi=022) 3 % BASOPHILS RELATIVE PERCENT (BEAKER) (test thhu=077) 1 % NEUTROPHILS ABSOLUTE COUNT (BEAKER) (test ecqd=844) 3.75 K/ L 1.56-6.13 LYMPHOCYTES ABSOLUTE COUNT (BEAKER) (test uxwx=581) 2.41 K/ L 1.18-3.74 MONOCYTES ABSOLUTE COUNT (BEAKER) (test felt=475) 1.12 K/ L 0.24-0.36 EOSINOPHILS ABSOLUTE COUNT (BEAKER) (test zgpa=466) 0.22 K/ L 0.04-0.36 BASOPHILS ABSOLUTE COUNT (BEAKER) (test hqjx=699) 0.05 K/ L 0.01-0.08 IMMATURE GRANULOCYTES-RELATIVE PERCENT (BEAKER) (test qkpv=6711) 1 % 0-1 BASIC METABOLIC [id number] 07:30:00* Test Item Value Reference Range Comments SODIUM (BEAKER) (test kcvu=912) 144 meq/L 136-145 POTASSIUM (BEAKER) (test ykpl=527) 3.2 meq/L 3.5-5.1 CHLORIDE (BEAKER) (test jfbr=046) 114 meq/L 98-107 CO2 (BEAKER) (test uyqq=352) 24 meq/L 22-29 BLOOD UREA NITROGEN (BEAKER) (test qvwi=425) 3 mg/dL 7-21 CREATININE (BEAKER) (test ydeq=036) 0.46 mg/dL 0.57-1.25 GLUCOSE RANDOM (BEAKER) (test ztyt=632) 102 mg/dL 70-105 CALCIUM (BEAKER) (test bfer=468) 8.5 mg/dL 8.4-10.2 EGFR (BEAKER) (test tizr=1978) 208 mL/min/1.73 sq m ESTIMATED GFR IS NOT ACCURATE CREATININE CLEARANCE IN PREDICTING GLOMERULAR FILTRATION RATE. ESTIMATED GFR IS NOT APPLICABLE FOR DIALYSIS PATIENTS. CBC W/PLT COUNT & AUTO [id number] 08:01:00* Test Item Value Reference Range Comments WHITE BLOOD CELL COUNT (BEAKER) (test ntob=561) 9.9 K/ L 3.5-10.5 RED BLOOD CELL COUNT (BEAKER) (test bkro=117) 2.45 M/ L 3.93-5.22 HEMOGLOBIN (BEAKER) (test zshr=005) 5.4 GM/DL 11.2-15.7 HEMATOCRIT (BEAKER) (test gjfh=725) 17.4 % 34.1-44.9 MEAN CORPUSCULAR VOLUME (BEAKER) (test ehsg=817) 71.0 fL 79.4-94.8 MEAN CORPUSCULAR HEMOGLOBIN (BEAKER) (test sbdi=642) 22.0 pg 25.6-32.2 MEAN CORPUSCULAR HEMOGLOBIN CONC (BEAKER) (test mfot=116) 31.0 GM/DL 32.2-35.5 RED CELL DISTRIBUTION WIDTH (BEAKER) (test ueje=392) 17.8 % 11.7-14.4 PLATELET COUNT (BEAKER) (test nkjl=739) 196 K/CU MM 150-450 MEAN PLATELET VOLUME (BEAKER) (test akpe=299) 10.6 fL 9.4-12.3 NUCLEATED RED BLOOD CELLS (BEAKER) (test lvic=705) 6 /100 WBC 0-0 BASIC METABOLIC [id number] 04:36:00* Test Item Value Reference Range Comments SODIUM (BEAKER) (test wpnr=676) 143 meq/L 136-145 POTASSIUM (BEAKER) (test sgpb=539) 3.6 meq/L 3.5-5.1 CHLORIDE (BEAKER) (test nwfa=314) 113 meq/L 98-107 CO2 (BEAKER) (test vblx=108) 24 meq/L 22-29 BLOOD UREA NITROGEN (BEAKER) (test ljwx=621) 4 mg/dL 7-21 CREATININE (BEAKER) (test vsjd=830) 0.45 mg/dL 0.57-1.25 GLUCOSE RANDOM (BEAKER) (test zzcd=932) 101 mg/dL 70-105 CALCIUM (BEAKER) (test aitf=011) 8.4 mg/dL 8.4-10.2 EGFR (BEAKER) (test sstu=3510) 213 mL/min/1.73 sq m ESTIMATED GFR IS NOT ACCURATE CREATININE CLEARANCE IN PREDICTING GLOMERULAR FILTRATION RATE. ESTIMATED GFR IS NOT APPLICABLE FOR DIALYSIS PATIENTS. SCREEN, [id number] 20:47:00* Test Item Value Reference Range Comments TEST URINE (BEAKER) (test rvqs=899) Negative URINALYSIS W/ [id number] 20:46:00* Test Item Value Reference Range Comments COLOR (BEAKER) (test rulv=475) Yellow CLARITY (BEAKER) (test ggrm=950) Clear SPECIFIC GRAVITY UA (BEAKER) (test igil=751) 1.004 1.001-1.035 PH UA (BEAKER) (test vxyc=712) 6.0 5.0-8.0 PROTEIN UA (BEAKER) (test swux=732) Negative Negative GLUCOSE UA (BEAKER) (test affb=400) Negative Negative KETONES UA (BEAKER) (test obfa=826) Negative Negative BILIRUBIN UA (BEAKER) (test xnqi=079) Negative Negative BLOOD UA (BEAKER) (test ydaw=974) Negative Negative NITRITE UA (BEAKER) (test iokb=950) Negative Negative LEUKOCYTE ESTERASE UA (BEAKER) (test qolv=369) Negative Negative UROBILINOGEN UA (BEAKER) (test niyr=119) 0.2 mg/dL 0.2-1.0 RBC UA (BEAKER) (test emhh=499) 0 /HPF WBC UA (BEAKER) (test aswg=091) < /HPF BACTERIA (BEAKER) (test zwzf=376) Rare MUCUS (BEAKER) (test mmhb=1787) Rare SQUAMOUS EPITHELIAL (BEAKER) (test cfvv=122) 2 /HPF SOURCE(BEAKER) (test arpq=5449) Urine, Voided RAD, CHEST, 1 VIEW, NON [id number] 20:12:00Reason for exam:->SICKLE CELL PAIN CRISISReason for exam:->chest painIs the patient ?->UnknownShould this be performed at the bedside?->YesFINAL REPORT INDICATION: SICKLE CELL PAIN CRISISchest pain COMPARISON: February 12, 2018 TECHNIQUE: Single frontal view of the chest. FINDINGS: Lungs and pleura: Underinflated lungs with bibasilar subsegmental atelectasis. No effusion.Heart and mediastinum: Normal heart size. Unremarkable mediastinal contours.Osseous structures: No acute abnormality.Other: None. IMPRESSION: Basilar subsegmental atelectasis. No focal consolidation. Signed: JR Ortiz Robert MDReport Verified Date/Time: 02/24/2018 20:12:50 Reading Location: [facility] C013Y CT Body Reading Room TINE KINASE (CK), TOTAL AND [id number] 18:06:00* Test Item Value Reference Range Comments CREATINE KINASE TOTAL (BEAKER) (test uxhz=921) 13 U/L 29-200 CREATINE KINASE-MB (BEAKER) (test ujzx=372) 0.1 ng/mL 0.0-6.6 CREATINE KINASE-MB INDEX (BEAKER) (test uwib=219) 0.8 % Unable to Calculate CK-MB Reference Range:<6.7 Normal6.7-10.0 Borderline>10.0 AbnormalCBC W/PLT COUNT & AUTO [id number] 18:06:00* Test Item Value Reference Range Comments WHITE BLOOD CELL COUNT (BEAKER) (test wvoe=586) 10.0 K/ L 3.5-10.5 RED BLOOD CELL COUNT (BEAKER) (test vytr=461) 2.51 M/ L 3.93-5.22 HEMOGLOBIN (BEAKER) (test jhlb=262) 5.6 GM/DL 11.2-15.7 HEMATOCRIT (BEAKER) (test wiey=021) 17.9 % 34.1-44.9 MEAN CORPUSCULAR VOLUME (BEAKER) (test bexh=479) 71.3 fL 79.4-94.8 MEAN CORPUSCULAR HEMOGLOBIN (BEAKER) (test kmuu=538) 22.3 pg 25.6-32.2 MEAN CORPUSCULAR HEMOGLOBIN CONC (BEAKER) (test vcho=528) 31.3 GM/DL 32.2-35.5 RED CELL DISTRIBUTION WIDTH (BEAKER) (test bhyd=284) 17.8 % 11.7-14.4 PLATELET COUNT (BEAKER) (test lzrj=602) 192 K/CU MM 150-450 MEAN PLATELET VOLUME (BEAKER) (test zdmd=709) 10.3 fL 9.4-12.3 NUCLEATED RED BLOOD CELLS (BEAKER) (test jbyd=237) 8 /100 WBC 0-0 TROPONIN [id number] 18:05:00* Test Item Value Reference Range Comments TROPONIN I (BEAKER) (test mikc=321) < ng/mL 0.00-0.03 Troponin I (TnI) levels must be interpreted in the context of the presenting sym ptoms and the clinical findings. Elevated TnI levels indicate myocardial damage, but are not specific for ischemic heart disease. Elevated TnI levels are seen in patients with other cardiac conditions (including myocarditis and congestive h eart failure), and slight TnI elevations occur in patients with other conditions , including sepsis, renal failure, acidosis, acute neurological disease, and per sistent tachyarrhythmia.COMPREHENSIVE METABOLIC [id number] 17:59:00* Test Item Value Reference Range Comments TOTAL PROTEIN (BEAKER) (test duqa=703) 6.1 gm/dL 6.0-8.3 ALBUMIN (BEAKER) (test pdqr=5529) 4.0 g/dL 3.5-5.0 ALKALINE PHOSPHATASE (BEAKER) (test sbeq=297) 69 U/L 40-150 BILIRUBIN TOTAL (BEAKER) (test veum=831) 1.6 mg/dL 0.2-1.2 SODIUM (BEAKER) (test ehbb=715) 140 meq/L 136-145 POTASSIUM (BEAKER) (test xcki=282) 3.4 meq/L 3.5-5.1 CHLORIDE (BEAKER) (test ykay=952) 108 meq/L 98-107 CO2 (BEAKER) (test jikf=412) 26 meq/L 22-29 BLOOD UREA NITROGEN (BEAKER) (test fkpd=723) 4 mg/dL 7-21 CREATININE (BEAKER) (test aisc=176) 0.55 mg/dL 0.57-1.25 GLUCOSE RANDOM (BEAKER) (test wxxx=556) 102 mg/dL 70-105 CALCIUM (BEAKER) (test aunp=326) 9.0 mg/dL 8.4-10.2 AST (SGOT) (BEAKER) (test vhka=553) 25 U/L 5-34 ALT (SGPT) (BEAKER) (test otjd=733) 16 U/L 6-55 EGFR (BEAKER) (test swtu=4087) 169 mL/min/1.73 sq m ESTIMATED GFR IS NOT ACCURATE CREATININE CLEARANCE IN PREDICTING GLOMERULAR FILTRATION RATE. ESTIMATED GFR IS NOT APPLICABLE FOR DIALYSIS PATIENTS. RETICULOCYTE [id number] 17:47:00* Test Item Value Reference Range Comments RETICULOCYTE COUNT PCT (BEAKER) (test yxfe=999) 12.1 % 0.5-1.7 POCT-LACTIC ACID, [id number] 17:37:00* Test Item Value Reference Range Comments POC-LACTIC ACID, VENOUS (BEAKER) (test upug=3069) 0.6 mmol/L 0.9-1.7 TESTED AT [facility] [address] [facility] [address] CBC W/PLT COUNT & AUTO [id number] 08:57:00* Test Item Value Reference Range Comments WHITE BLOOD CELL COUNT (BEAKER) (test nyjl=696) 6.2 K/ L 3.5-10.5 RED BLOOD CELL COUNT (BEAKER) (test judl=364) 3.04 M/ L 3.93-5.22 HEMOGLOBIN (BEAKER) (test knal=142) 6.9 GM/DL 11.2-15.7 HEMATOCRIT (BEAKER) (test udim=439) 22.5 % 34.1-44.9 MEAN CORPUSCULAR VOLUME (BEAKER) (test kstt=834) 74.0 fL 79.4-94.8 MEAN CORPUSCULAR HEMOGLOBIN (BEAKER) (test xegb=432) 22.7 pg 25.6-32.2 MEAN CORPUSCULAR HEMOGLOBIN CONC (BEAKER) (test zhpo=494) 30.7 GM/DL 32.2-35.5 RED CELL DISTRIBUTION WIDTH (BEAKER) (test aasz=249) 18.8 % 11.7-14.4 PLATELET COUNT (BEAKER) (test zvkf=835) 197 K/CU MM 150-450 MEAN PLATELET VOLUME (BEAKER) (test zbmv=632) 9.4 fL 9.4-12.3 NUCLEATED RED BLOOD CELLS (BEAKER) (test jmda=231) 4 /100 WBC 0-0 NEUTROPHILS RELATIVE PERCENT (BEAKER) (test oypx=838) 62 % LYMPHOCYTES RELATIVE PERCENT (BEAKER) (test qwxc=026) 21 % MONOCYTES RELATIVE PERCENT (BEAKER) (test lros=554) 9 % EOSINOPHILS RELATIVE PERCENT (BEAKER) (test mhre=270) 7 % BASOPHILS RELATIVE PERCENT (BEAKER) (test vqyj=437) 1 % NEUTROPHILS ABSOLUTE COUNT (BEAKER) (test oivn=454) 3.81 K/ L 1.56-6.13 LYMPHOCYTES ABSOLUTE COUNT (BEAKER) (test mcos=746) 1.31 K/ L 1.18-3.74 MONOCYTES ABSOLUTE COUNT (BEAKER) (test fbly=314) 0.57 K/ L 0.24-0.36 EOSINOPHILS ABSOLUTE COUNT (BEAKER) (test dmzm=986) 0.42 K/ L 0.04-0.36 BASOPHILS ABSOLUTE COUNT (BEAKER) (test srkr=234) 0.04 K/ L 0.01-0.08 IMMATURE GRANULOCYTES-RELATIVE PERCENT (BEAKER) (test smov=4542) 0 % 0-1 BASIC METABOLIC [id number] 06:05:00* Test Item Value Reference Range Comments SODIUM (BEAKER) (test ipoa=240) 143 meq/L 136-145 POTASSIUM (BEAKER) (test fgew=966) 3.6 meq/L 3.5-5.1 CHLORIDE (BEAKER) (test tpcd=713) 109 meq/L 98-107 CO2 (BEAKER) (test alxz=142) 27 meq/L 22-29 BLOOD UREA NITROGEN (BEAKER) (test rlni=177) 6 mg/dL 7-21 CREATININE (BEAKER) (test bhra=238) 0.52 mg/dL 0.57-1.25 GLUCOSE RANDOM (BEAKER) (test nivm=782) 95 mg/dL 70-105 CALCIUM (BEAKER) (test yklo=166) 8.7 mg/dL 8.4-10.2 EGFR (BEAKER) (test gdig=2562) 180 mL/min/1.73 sq m ESTIMATED GFR IS NOT ACCURATE CREATININE CLEARANCE IN PREDICTING GLOMERULAR FILTRATION RATE. ESTIMATED GFR IS NOT APPLICABLE FOR DIALYSIS PATIENTS. CBC W/PLT COUNT & AUTO [id number] 14:32:00* Test Item Value Reference Range Comments WHITE BLOOD CELL COUNT (BEAKER) (test pbvp=805) 7.4 K/ L 3.5-10.5 RED BLOOD CELL COUNT (BEAKER) (test ohdj=098) 3.03 M/ L 3.93-5.22 HEMOGLOBIN (BEAKER) (test ewyi=189) 6.8 GM/DL 11.2-15.7 HEMATOCRIT (BEAKER) (test zsnr=875) 22.2 % 34.1-44.9 MEAN CORPUSCULAR VOLUME (BEAKER) (test cscs=986) 73.3 fL 79.4-94.8 MEAN CORPUSCULAR HEMOGLOBIN (BEAKER) (test zomw=508) 22.4 pg 25.6-32.2 MEAN CORPUSCULAR HEMOGLOBIN CONC (BEAKER) (test wyrw=277) 30.6 GM/DL 32.2-35.5 RED CELL DISTRIBUTION WIDTH (BEAKER) (test wouu=820) 19.5 % 11.7-14.4 PLATELET COUNT (BEAKER) (test rgme=421) 213 K/CU MM 150-450 MEAN PLATELET VOLUME (BEAKER) (test xfop=567) 9.5 fL 9.4-12.3 NUCLEATED RED BLOOD CELLS (BEAKER) (test koir=182) 4 /100 WBC 0-0 NEUTROPHILS RELATIVE PERCENT (BEAKER) (test fztz=743) 65 % LYMPHOCYTES RELATIVE PERCENT (BEAKER) (test weqc=908) 21 % MONOCYTES RELATIVE PERCENT (BEAKER) (test sdfh=879) 8 % EOSINOPHILS RELATIVE PERCENT (BEAKER) (test ygpj=355) 5 % BASOPHILS RELATIVE PERCENT (BEAKER) (test ofdc=160) 0 % NEUTROPHILS ABSOLUTE COUNT (BEAKER) (test ojis=493) 4.84 K/ L 1.56-6.13 LYMPHOCYTES ABSOLUTE COUNT (BEAKER) (test vjmv=292) 1.54 K/ L 1.18-3.74 MONOCYTES ABSOLUTE COUNT (BEAKER) (test vkyt=509) 0.62 K/ L 0.24-0.36 EOSINOPHILS ABSOLUTE COUNT (BEAKER) (test cwtt=924) 0.34 K/ L 0.04-0.36 BASOPHILS ABSOLUTE COUNT (BEAKER) (test puly=896) 0.03 K/ L 0.01-0.08 IMMATURE GRANULOCYTES-RELATIVE PERCENT (BEAKER) (test ddxq=8735) 1 % 0-1 BASIC METABOLIC [id number] 13:58:00* Test Item Value Reference Range Comments SODIUM (BEAKER) (test kpqj=376) 143 meq/L 136-145 POTASSIUM (BEAKER) (test zhwc=194) 3.6 meq/L 3.5-5.1 CHLORIDE (BEAKER) (test obyg=151) 110 meq/L 98-107 CO2 (BEAKER) (test yzne=332) 28 meq/L 22-29 BLOOD UREA NITROGEN (BEAKER) (test lksx=604) 4 mg/dL 7-21 CREATININE (BEAKER) (test vxpt=716) 0.48 mg/dL 0.57-1.25 GLUCOSE RANDOM (BEAKER) (test yqgy=989) 79 mg/dL 70-105 CALCIUM (BEAKER) (test yivr=031) 8.6 mg/dL 8.4-10.2 EGFR (BEAKER) (test ljnc=0492) 198 mL/min/1.73 sq m ESTIMATED GFR IS NOT ACCURATE CREATININE CLEARANCE IN PREDICTING GLOMERULAR FILTRATION RATE. ESTIMATED GFR IS NOT APPLICABLE FOR DIALYSIS PATIENTS. CBC W/PLT COUNT & AUTO [id number] 07:26:00* Test Item Value Reference Range Comments WHITE BLOOD CELL COUNT (BEAKER) (test dapm=509) 10.0 K/ L 3.5-10.5 RED BLOOD CELL COUNT (BEAKER) (test kxtn=606) 2.96 M/ L 3.93-5.22 HEMOGLOBIN (BEAKER) (test ogwg=273) 6.6 GM/DL 11.2-15.7 HEMATOCRIT (BEAKER) (test iuxx=980) 20.9 % 34.1-44.9 MEAN CORPUSCULAR VOLUME (BEAKER) (test egyl=010) 70.6 fL 79.4-94.8 MEAN CORPUSCULAR HEMOGLOBIN (BEAKER) (test ymfw=019) 22.3 pg 25.6-32.2 MEAN CORPUSCULAR HEMOGLOBIN CONC (BEAKER) (test dckb=899) 31.6 GM/DL 32.2-35.5 RED CELL DISTRIBUTION WIDTH (BEAKER) (test nife=213) 19.9 % 11.7-14.4 PLATELET COUNT (BEAKER) (test hroy=074) 240 K/CU MM 150-450 MEAN PLATELET VOLUME (BEAKER) (test oape=204) 10.0 fL 9.4-12.3 NUCLEATED RED BLOOD CELLS (BEAKER) (test juea=099) 3 /100 WBC 0-0 NEUTROPHILS RELATIVE PERCENT (BEAKER) (test ifpj=229) 62 % LYMPHOCYTES RELATIVE PERCENT (BEAKER) (test crjj=647) 23 % MONOCYTES RELATIVE PERCENT (BEAKER) (test kisk=808) 9 % EOSINOPHILS RELATIVE PERCENT (BEAKER) (test jtdh=828) 4 % BASOPHILS RELATIVE PERCENT (BEAKER) (test pblb=027) 1 % NEUTROPHILS ABSOLUTE COUNT (BEAKER) (test rwgu=260) 6.19 K/ L 1.56-6.13 LYMPHOCYTES ABSOLUTE COUNT (BEAKER) (test fanq=701) 2.25 K/ L 1.18-3.74 MONOCYTES ABSOLUTE COUNT (BEAKER) (test wxha=450) 0.85 K/ L 0.24-0.36 EOSINOPHILS ABSOLUTE COUNT (BEAKER) (test xatz=495) 0.40 K/ L 0.04-0.36 BASOPHILS ABSOLUTE COUNT (BEAKER) (test cirs=569) 0.09 K/ L 0.01-0.08 IMMATURE GRANULOCYTES-RELATIVE PERCENT (BEAKER) (test ufvm=2574) 2 % 0-1 RAD, CHEST, 1 VIEW, NON [id number] 21:59:00Reason for exam:->SOB / Sickle cell crisisShould this be performed at the bedside?->YesFINAL REPORT History: Shortness of breath, history of sickle cell anemia. Comparison: 02/10/2018 Findings: A single view of the chest is submitted. The cardiac silhouette is within normal limits for size. The lung volumes are low. There is mild central pulmonary vascular prominence and perihilar interstitial opacification, nonspecific but possibly reflecting interstitial edema. Curvilinear opacities in the left greater than right lower lungs are suggestive of atelectasis in the presence of low lung volumes. There is no focal con solidation, pneumothorax, large pleural effusion or acute bony abnormality. Sign ed: Ernie Sawyer MDReport Verified Date/Time: 02/12/2018 21:59:43 Reading Loca tion: OQMT [address] [place] [address] Reading Room W/PLT COUNT & AUTO DIFFERENTIAL 2018-02-12 08:32:00* Test Item Value Reference Range Comments WHITE BLOOD CELL COUNT (BEAKER) (test trxi=285) 8.3 K/ L 3.5-10.5 RED BLOOD CELL COUNT (BEAKER) (test ouzr=312) 2.38 M/ L 3.93-5.22 HEMOGLOBIN (BEAKER) (test nmue=960) 5.2 GM/DL 11.2-15.7 HEMATOCRIT (BEAKER) (test cdqx=911) 16.7 % 34.1-44.9 MEAN CORPUSCULAR VOLUME (BEAKER) (test fuxa=230) 70.2 fL 79.4-94.8 MEAN CORPUSCULAR HEMOGLOBIN (BEAKER) (test zgza=911) 21.8 pg 25.6-32.2 MEAN CORPUSCULAR HEMOGLOBIN CONC (BEAKER) (test vtux=356) 31.1 GM/DL 32.2-35.5 RED CELL DISTRIBUTION WIDTH (BEAKER) (test txhq=063) 19.5 % 11.7-14.4 PLATELET COUNT (BEAKER) (test ckwv=155) 222 K/CU MM 150-450 MEAN PLATELET VOLUME (BEAKER) (test coxq=339) 10.0 fL 9.4-12.3 NUCLEATED RED BLOOD CELLS (BEAKER) (test lnti=989) 2 /100 WBC 0-0 NEUTROPHILS RELATIVE PERCENT (BEAKER) (test preu=663) 46 % LYMPHOCYTES RELATIVE PERCENT (BEAKER) (test smca=575) 37 % MONOCYTES RELATIVE PERCENT (BEAKER) (test riww=523) 11 % EOSINOPHILS RELATIVE PERCENT (BEAKER) (test ntjs=331) 5 % BASOPHILS RELATIVE PERCENT (BEAKER) (test pqfh=768) 0 % NEUTROPHILS ABSOLUTE COUNT (BEAKER) (test ssiw=864) 3.82 K/ L 1.56-6.13 LYMPHOCYTES ABSOLUTE COUNT (BEAKER) (test gwxz=953) 3.10 K/ L 1.18-3.74 MONOCYTES ABSOLUTE COUNT (BEAKER) (test ezcb=701) 0.93 K/ L 0.24-0.36 EOSINOPHILS ABSOLUTE COUNT (BEAKER) (test oqca=117) 0.39 K/ L 0.04-0.36 BASOPHILS ABSOLUTE COUNT (BEAKER) (test cuae=784) 0.02 K/ L 0.01-0.08 IMMATURE GRANULOCYTES-RELATIVE PERCENT (BEAKER) (test bobo=6018) 0 % 0-1 IRON, TIBC, % SAT. (WITHOUT FERRITIN)2018-02-12 07:39:00* Test Item Value Reference Range Comments IRON (BEAKER) (test kqla=017) 117 ug/dL 40-160 TOTAL IRON BINDING CAPACITY (BEAKER) (test lcbs=109) 131 ug/dL 250-450 IRON % SATURATION (2) (BEAKER) (test kizg=5070) 89 % 20-55 COMPREHENSIVE METABOLIC [id number] 06:08:00* Test Item Value Reference Range Comments TOTAL PROTEIN (BEAKER) (test ofge=785) 5.0 gm/dL 6.0-8.3 ALBUMIN (BEAKER) (test crve=6361) 3.5 g/dL 3.5-5.0 ALKALINE PHOSPHATASE (BEAKER) (test zjqn=463) 76 U/L 40-150 BILIRUBIN TOTAL (BEAKER) (test ogdu=603) 1.5 mg/dL 0.2-1.2 SODIUM (BEAKER) (test wefa=775) 145 meq/L 136-145 POTASSIUM (BEAKER) (test qken=842) 3.9 meq/L 3.5-5.1 CHLORIDE (BEAKER) (test lvgw=894) 114 meq/L 98-107 CO2 (BEAKER) (test mfip=571) 24 meq/L 22-29 BLOOD UREA NITROGEN (BEAKER) (test icjg=525) 6 mg/dL 7-21 CREATININE (BEAKER) (test tswj=189) 0.45 mg/dL 0.57-1.25 GLUCOSE RANDOM (BEAKER) (test nufh=880) 79 mg/dL 70-105 CALCIUM (BEAKER) (test nkhl=011) 8.1 mg/dL 8.4-10.2 AST (SGOT) (BEAKER) (test xcdz=488) 19 U/L 5-34 ALT (SGPT) (BEAKER) (test gkes=465) 6 U/L 6-55 EGFR (BEAKER) (test pevk=2996) 213 mL/min/1.73 sq m ESTIMATED GFR IS NOT ACCURATE CREATININE CLEARANCE IN PREDICTING GLOMERULAR FILTRATION RATE. ESTIMATED GFR IS NOT APPLICABLE FOR DIALYSIS PATIENTS. CBC (HEMOGRAM ONLY)2018-02-11 06:04:00* Test Item Value Reference Range Comments WHITE BLOOD CELL COUNT (BEAKER) (test ucud=207) 9.6 K/ L 3.5-10.5 RED BLOOD CELL COUNT (BEAKER) (test sryd=423) 2.75 M/ L 3.93-5.22 HEMOGLOBIN (BEAKER) (test qdyc=939) 6.0 GM/DL 11.2-15.7 HEMATOCRIT (BEAKER) (test ggct=969) 19.4 % 34.1-44.9 MEAN CORPUSCULAR VOLUME (BEAKER) (test pdoh=438) 70.5 fL 79.4-94.8 MEAN CORPUSCULAR HEMOGLOBIN (BEAKER) (test sbfv=813) 21.8 pg 25.6-32.2 MEAN CORPUSCULAR HEMOGLOBIN CONC (BEAKER) (test tltx=794) 30.9 GM/DL 32.2-35.5 RED CELL DISTRIBUTION WIDTH (BEAKER) (test xewz=194) 20.4 % 11.7-14.4 PLATELET COUNT (BEAKER) (test yeyt=171) 261 K/CU MM 150-450 MEAN PLATELET VOLUME (BEAKER) (test sxkb=568) 9.8 fL 9.4-12.3 NUCLEATED RED BLOOD CELLS (BEAKER) (test ebos=066) 2 /100 WBC 0-0 SCREEN, [id number] 14:56:00* Test Item Value Reference Range Comments TEST URINE (BEAKER) (test hgca=843) Negative RAD, CHEST, 2 [id number] 14:56:00Reason for exam:->SICKLE CELL PAIN CRISIS FINAL REPORT Chest, PA and lateral. History: Sickle candelario l pain crisis. Comparison: None available. Discussion: The cardiomediastinal si lhouette and pulmonary vasculature are within normal limits. The lungs are clear without evidence of consolidation or effusion. There are no acute osseous abno rmalities. Chronic skeletal changes of sickle cell disease noted. The soft tissu es are unremarkable. IMPRESSION: No acute cardiopulmonary abnormality. Signed: Calixto Matias MDReport Verified Date/Time: 02/10/2018 14:56:16 Reading Locati on: [facility] B1 C013T Transitional Reading Room C METABOLIC [id number] 02:13:00* Test Item Value Reference Range Comments SODIUM (BEAKER) (test crpo=411) 139 meq/L 136-145 POTASSIUM (BEAKER) (test euvk=063) 4.4 meq/L 3.5-5.1 CHLORIDE (BEAKER) (test weun=590) 112 meq/L 98-107 CO2 (BEAKER) (test wyyl=027) 19 meq/L 22-29 BLOOD UREA NITROGEN (BEAKER) (test nzep=186) 4 mg/dL 7-21 CREATININE (BEAKER) (test bmyq=592) 0.53 mg/dL 0.57-1.25 GLUCOSE RANDOM (BEAKER) (test jbwa=497) 85 mg/dL 70-105 CALCIUM (BEAKER) (test mqdu=187) 9.5 mg/dL 8.4-10.2 EGFR (BEAKER) (test kbox=5411) 176 mL/min/1.73 sq m ESTIMATED GFR IS NOT ACCURATE CREATININE CLEARANCE IN PREDICTING GLOMERULAR FILTRATION RATE. ESTIMATED GFR IS NOT APPLICABLE FOR DIALYSIS PATIENTS. Specimen slightly ictericCBC W/PLT COUNT & AUTO [id number] 01:52:00 * Test Item Value Reference Range Comments WHITE BLOOD CELL COUNT (BEAKER) (test gask=748) 9.8 K/ L 3.5-10.5 RED BLOOD CELL COUNT (BEAKER) (test vmzv=888) 3.27 M/ L 3.93-5.22 HEMOGLOBIN (BEAKER) (test nvit=066) 7.0 GM/DL 11.2-15.7 HEMATOCRIT (BEAKER) (test vanh=786) 22.8 % 34.1-44.9 MEAN CORPUSCULAR VOLUME (BEAKER) (test upzz=118) 69.7 fL 79.4-94.8 MEAN CORPUSCULAR HEMOGLOBIN (BEAKER) (test rwue=602) 21.4 pg 25.6-32.2 MEAN CORPUSCULAR HEMOGLOBIN CONC (BEAKER) (test jsyl=886) 30.7 GM/DL 32.2-35.5 RED CELL DISTRIBUTION WIDTH (BEAKER) (test wrfh=272) 19.1 % 11.7-14.4 PLATELET COUNT (BEAKER) (test uvhn=781) 303 K/CU MM 150-450 MEAN PLATELET VOLUME (BEAKER) (test yiup=223) 9.6 fL 9.4-12.3 NUCLEATED RED BLOOD CELLS (BEAKER) (test hjos=085) 2 /100 WBC 0-0 NEUTROPHILS RELATIVE PERCENT (BEAKER) (test nmaj=794) 54 % LYMPHOCYTES RELATIVE PERCENT (BEAKER) (test qtfe=038) 30 % MONOCYTES RELATIVE PERCENT (BEAKER) (test irva=968) 12 % EOSINOPHILS RELATIVE PERCENT (BEAKER) (test roiq=728) 3 % BASOPHILS RELATIVE PERCENT (BEAKER) (test amac=513) 2 % NEUTROPHILS ABSOLUTE COUNT (BEAKER) (test zegh=560) 5.24 K/ L 1.56-6.13 LYMPHOCYTES ABSOLUTE COUNT (BEAKER) (test fmbp=967) 2.89 K/ L 1.18-3.74 MONOCYTES ABSOLUTE COUNT (BEAKER) (test yjfx=495) 1.13 K/ L 0.24-0.36 EOSINOPHILS ABSOLUTE COUNT (BEAKER) (test ekni=190) 0.32 K/ L 0.04-0.36 BASOPHILS ABSOLUTE COUNT (BEAKER) (test dqwh=760) 0.16 K/ L 0.01-0.08 IMMATURE GRANULOCYTES-RELATIVE PERCENT (BEAKER) (test ennx=4246) 0 % 0-1 RETICULOCYTE [id number] 01:52:00* Test Item Value Reference Range Comments RETICULOCYTE COUNT PCT (BEAKER) (test bjyr=593) 8.7 % 0.5-1.7 BLOOD [id number] 06:00:00* Test Item Value Reference Range Comments CULTURE (BEAKER) (test fctn=2592) No growth in 5 days BLOOD [id number] 06:00:00* Test Item Value Reference Range Comments CULTURE (BEAKER) (test unqu=3485) No growth in 5 days EEG AWAKE AND [id number] 14:41:00Reason for exam:->multiple episodes of LOC with lip smackingDATE OF TEST: 12/12/2017 DATE OF REPORT 12/12/2017 ACC: [id number] Start time: 0849 Stop time: 909 ICD-10: R56.9 CPT Code: 77886 HISTORY: 22 yo F w/ episodes of LOC w/ lip smacking MEDICATIONS THAT COULD AFFECT EEG: Gabapentin TECHNICAL SUMMARY: This is a digital video EEG recorded with 32 input channels reviewed with bipolar and referential montages using the modified combinatorial system nomenclature. DESCRIPTION OF RECORD: During the maximally alert state a 10-11 Hz posterior dominant rhythm was seen that was symmetric, reactive to eye opening and well regulated. More anteriorly, low voltage frontocentral beta predominated. Frequent, focal spike and wave discharges, further activated by sleep are seen over right temporal region, maximally negative at F8/FT10. Drowsiness was characterized by alpha attenuation, increased frontocentral theta and vertex sharp transients. Stage 2 sleep was reached characterized by symmetric sleep spindles and K-complexes. HV: Hyperventilation was not performed. PHOTIC STIMULATION: Flash stimulation was done from 3-30 Hz; no photic driving was seen; photoparoxysmal responses were absent. IMPRESSION: This is an abnormal awake and sleep EEG due to the presence of: 1. Frequent focal epileptiform discharges over the right temporal region (maximal F8/FT10) CLINICAL CORRELATION: Focal epileptiform discharges are indicative of focal cortical irritability in the specified region. No clinical or electrographic seizures were recorded. Kaur Leong, M.D. Neurophysiology Fellow [facility] Epilepsy/Neurophysiology Attending' [id number] 08:58:00* Test Item Value Reference Range Comments FERRITIN (BEAKER) (test wytj=244) 955 ng/mL 5-275 CBC W/PLT COUNT & AUTO [id number] 07:21:00* Test Item Value Reference Range Comments WHITE BLOOD CELL COUNT (BEAKER) (test lajb=148) 10.1 K/ L 3.5-10.5 RED BLOOD CELL COUNT (BEAKER) (test yfmu=975) 3.20 M/ L 3.93-5.22 HEMOGLOBIN (BEAKER) (test yamo=047) 7.3 GM/DL 11.2-15.7 HEMATOCRIT (BEAKER) (test ozzx=536) 23.0 % 34.1-44.9 MEAN CORPUSCULAR VOLUME (BEAKER) (test ycao=817) 71.9 fL 79.4-94.8 MEAN CORPUSCULAR HEMOGLOBIN (BEAKER) (test yzpe=296) 22.8 pg 25.6-32.2 MEAN CORPUSCULAR HEMOGLOBIN CONC (BEAKER) (test puzs=554) 31.7 GM/DL 32.2-35.5 RED CELL DISTRIBUTION WIDTH (BEAKER) (test ydoo=238) 17.2 % 11.7-14.4 PLATELET COUNT (BEAKER) (test pbqg=644) 333 K/CU MM 150-450 MEAN PLATELET VOLUME (BEAKER) (test xxuy=622) 10.3 fL 9.4-12.3 NUCLEATED RED BLOOD CELLS (BEAKER) (test qyro=918) 3 /100 WBC 0-0 NEUTROPHILS RELATIVE PERCENT (BEAKER) (test jspa=177) 56 % LYMPHOCYTES RELATIVE PERCENT (BEAKER) (test cimn=630) 31 % MONOCYTES RELATIVE PERCENT (BEAKER) (test iyne=762) 11 % EOSINOPHILS RELATIVE PERCENT (BEAKER) (test aaow=396) 1 % BASOPHILS RELATIVE PERCENT (BEAKER) (test jtiu=687) 1 % NEUTROPHILS ABSOLUTE COUNT (BEAKER) (test ptbu=610) 5.62 K/ L 1.56-6.13 LYMPHOCYTES ABSOLUTE COUNT (BEAKER) (test zrxh=993) 3.13 K/ L 1.18-3.74 MONOCYTES ABSOLUTE COUNT (BEAKER) (test jejk=082) 1.14 K/ L 0.24-0.36 EOSINOPHILS ABSOLUTE COUNT (BEAKER) (test kqii=096) 0.08 K/ L 0.04-0.36 BASOPHILS ABSOLUTE COUNT (BEAKER) (test arcb=097) 0.08 K/ L 0.01-0.08 IMMATURE GRANULOCYTES-RELATIVE PERCENT (BEAKER) (test mqxj=9542) 1 % 0-1 (MANUAL DIFFERENTIAL)2017-12-29 07:21:00* Test Item Value Reference Range Comments TOTAL COUNTED (BEAKER) (test lwju=7856) IRON, TIBC, % SAT. (WITHOUT FERRITIN)2017-12-29 07:11:00* Test Item Value Reference Range Comments IRON (BEAKER) (test ural=481) 119 ug/dL 40-160 TOTAL IRON BINDING CAPACITY (BEAKER) (test tdot=923) 234 ug/dL 250-450 IRON % SATURATION (2) (BEAKER) (test qrlg=4110) 51 % 20-55 [id number] 07:03:00* Test Item Value Reference Range Comments MAGNESIUM (BEAKER) (test fodj=366) 2.8 mg/dL 1.6-2.6 BASIC METABOLIC [id number] 07:03:00* Test Item Value Reference Range Comments SODIUM (BEAKER) (test tszl=268) 142 meq/L 136-145 POTASSIUM (BEAKER) (test fvik=654) 4.0 meq/L 3.5-5.1 CHLORIDE (BEAKER) (test obng=720) 112 meq/L 98-107 CO2 (BEAKER) (test fohi=168) 22 meq/L 22-29 BLOOD UREA NITROGEN (BEAKER) (test cwqt=981) 9 mg/dL 7-21 CREATININE (BEAKER) (test lqcg=424) 0.59 mg/dL 0.57-1.25 GLUCOSE RANDOM (BEAKER) (test gemc=020) 88 mg/dL 70-105 CALCIUM (BEAKER) (test bpyf=467) 9.1 mg/dL 8.4-10.2 EGFR (BEAKER) (test gvxb=7771) 156 mL/min/1.73 sq m ESTIMATED GFR IS NOT ACCURATE CREATININE CLEARANCE IN PREDICTING GLOMERULAR FILTRATION RATE. ESTIMATED GFR IS NOT APPLICABLE FOR DIALYSIS PATIENTS. MR, BRAIN, WITHOUT [id number] 13:30:00Seizure protocolFINAL REPORT MRI brain Comparison: Head CT December 26 Reason for exam: Epilepsy Discussion: Multiplanar MR imaging the brain was performed using T1, T2, FLAIR, FFE, diffusion, and ADC map imaging. There are no intracranial hematomas, mass effect, hydrocephalus, shift, or extra-axial collections. There are no areas of abnormal diffusion restriction. There is atrophy and mild T2 hyperintensity of the right-sided hippocampus in keeping with mesial temporal sclerosis. No other suspicious epileptogenic lesion. Flow-voids are seen in the basilar and internal carotid arteries as well as in the large posterior dural sinuses. The pineal and craniocervical junction regions are unremarkable. The visualized orbital contents, paranasal sinuses, and surrounding soft tissues are unremarkable. . There is a potential T2 hyperintense nodule of the right- sided pituitary gland. Pituitary microadenoma is suspected. There is diffusely altered bone marrow signal. Findings suggest a systemic process. No evidence of focal bone lesion. Impressions: 1. Right-sided mesial temporal sclerosis. 2. Potential right-sided pituitary microadenoma. Consider dedicated sella protocol MRI. 3. Diffusely altered bone marrow signal warranting clinical correlation. S igned: Jann Saavedra Verified Date/Time: 12/28/2017 13:30:34 Elec tronically signed by: JANN SAAVEDRA M.D. on 12/28/2017 01:30 PM MR, MRA, BRAIN, WITHOUT [id number] 13:22:00Reason for exam:->Ischemic Stroke Evaluation FINAL REPORT MRA brain without contrast 12/28/2017 1:17 PM CLINICAL HISTORY: Decreased alertnessIschemic Stroke Evaluationseizure in sickle cell disease COMPARISON: None available TECHNIQUE: Three-dimensional time-of-f light intracranial MRA was performed, from which maximal intensity projection 3- D reconstructions of the intracranial arterial vasculatures were created. FINDIN GS: There is no vessel occlusion, flow-limiting stenosis, or aneurysm. IMPRESSIO N: Negative intracranial MRA. Signed: Seipel, Pamela MDReport Verified Date/Ti me: 12/28/2017 13:22:21 Reading Location: [facility] [id number] Neuro Reading Room El ectronically signed by: PAMELA HASSAN M.D. on 12/28/2017 01:22 PM MR, ABDOMEN, WITHOUT [id number] 13:02:00FINAL REPORT MRI OF THE ABDOMEN CLINICAL HISTORY: Splenic nodules TECHNIQUE: Multiplanar and multisequence MR images of the abdomen are obtained after intravenous contrast administration. Contrast was not administered per the patient's request. COMPARISON: Chest CT with contrast from 12/26/2017 DISCUSSION: LIVER: The liver parenchyma is diffusely T2 hypointense. No definite focal liver lesion identified within limitations of noncontrast examination and diffuse signal abnormality.BILIARY: No biliary ductal dilation. Cholelithiasis. Gallbladder is unremarkable for noncontrast examination.PANCREAS: Pancreatic parenchymal signal is within normal limits. No pancreatic ductal dilation. No definite solid lesion within limitations of noncontrast examination.SPLEEN: The spleen is diffusely hypointense. There are multiple T1 hyperintense nodules in the spleen, largest measuring 2.3 cm, corresponding to the enhancing nodules seen on comparison CT. Definitive characterization is limited by lack of intravenous contrast. ADRENALS: No nodules.KIDNEYS: No hydronephrosis or hydroureter. No solid renal lesion. PERITONEUM/RETROPERITONEUM: No ascites.LYMPH NODES: No upper abdominal lymphadenopathy. VESSELS: Abdominal aorta is normal in caliber. BONES AND SOFT TISSUES: Multiple central endplate deformities, in keeping with history of sick le cell disease. IMPRESSION: Limited assessment due to lack of intravenous contr ast. Although the splenic lesions remain incompletely characterized, they demons trate some features of benign splenic regenerative nodules, which can be seen in patients with sickle cell disease. If there remains clinical concern for malign jacinta, a follow-up contrast-enhanced MRI may be obtained in six months to assess stability. 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 Signed: Wiliam Albarado Verified Date /Time: 12/28/2017 13:02:16 Reading Location: [address] Radiology Reading Ro om [id number] 09:30:00* Test Item Value Reference Range Comments MAGNESIUM (BEAKER) (test gclt=082) 2.6 mg/dL 1.6-2.6 BASIC METABOLIC [id number] 09:30:00* Test Item Value Reference Range Comments SODIUM (BEAKER) (test frsp=206) 142 meq/L 136-145 POTASSIUM (BEAKER) (test otfn=375) 3.6 meq/L 3.5-5.1 CHLORIDE (BEAKER) (test rtdx=241) 111 meq/L 98-107 CO2 (BEAKER) (test omfg=152) 22 meq/L 22-29 BLOOD UREA NITROGEN (BEAKER) (test jfcr=078) 9 mg/dL 7-21 CREATININE (BEAKER) (test dtml=680) 0.60 mg/dL 0.57-1.25 GLUCOSE RANDOM (BEAKER) (test fkns=905) 94 mg/dL 70-105 CALCIUM (BEAKER) (test wogm=249) 9.4 mg/dL 8.4-10.2 EGFR (BEAKER) (test jgrm=2268) 153 mL/min/1.73 sq m ESTIMATED GFR IS NOT ACCURATE CREATININE CLEARANCE IN PREDICTING GLOMERULAR FILTRATION RATE. ESTIMATED GFR IS NOT APPLICABLE FOR DIALYSIS PATIENTS. CBC W/PLT COUNT & AUTO [id number] 09:08:00* Test Item Value Reference Range Comments WHITE BLOOD CELL COUNT (BEAKER) (test gmjx=538) 10.9 K/ L 3.5-10.5 RED BLOOD CELL COUNT (BEAKER) (test timb=274) 3.33 M/ L 3.93-5.22 HEMOGLOBIN (BEAKER) (test hfnt=954) 7.5 GM/DL 11.2-15.7 HEMATOCRIT (BEAKER) (test vydk=155) 24.1 % 34.1-44.9 MEAN CORPUSCULAR VOLUME (BEAKER) (test hwkd=687) 72.4 fL 79.4-94.8 MEAN CORPUSCULAR HEMOGLOBIN (BEAKER) (test mzcl=403) 22.5 pg 25.6-32.2 MEAN CORPUSCULAR HEMOGLOBIN CONC (BEAKER) (test yvtc=148) 31.1 GM/DL 32.2-35.5 RED CELL DISTRIBUTION WIDTH (BEAKER) (test wudr=971) 17.2 % 11.7-14.4 PLATELET COUNT (BEAKER) (test wxny=993) 363 K/CU MM 150-450 MEAN PLATELET VOLUME (BEAKER) (test pfbu=044) 10.1 fL 9.4-12.3 NUCLEATED RED BLOOD CELLS (BEAKER) (test eifj=107) 5 /100 WBC 0-0 NEUTROPHILS RELATIVE PERCENT (BEAKER) (test htcf=926) 65 % LYMPHOCYTES RELATIVE PERCENT (BEAKER) (test duxk=524) 21 % MONOCYTES RELATIVE PERCENT (BEAKER) (test hmpw=802) 12 % EOSINOPHILS RELATIVE PERCENT (BEAKER) (test gfil=009) 0 % BASOPHILS RELATIVE PERCENT (BEAKER) (test mydq=774) 1 % NEUTROPHILS ABSOLUTE COUNT (BEAKER) (test vgmt=816) 7.12 K/ L 1.56-6.13 LYMPHOCYTES ABSOLUTE COUNT (BEAKER) (test oppl=255) 2.27 K/ L 1.18-3.74 MONOCYTES ABSOLUTE COUNT (BEAKER) (test qxhn=465) 1.27 K/ L 0.24-0.36 EOSINOPHILS ABSOLUTE COUNT (BEAKER) (test wmgj=464) 0.04 K/ L 0.04-0.36 BASOPHILS ABSOLUTE COUNT (BEAKER) (test sjcw=730) 0.15 K/ L 0.01-0.08 IMMATURE GRANULOCYTES-RELATIVE PERCENT (BEAKER) (test ugft=4747) 1 % 0-1 CBC W/PLT COUNT & AUTO [id number] 18:47:00* Test Item Value Reference Range Comments WHITE BLOOD CELL COUNT (BEAKER) (test nikd=982) 14.6 K/ L 3.5-10.5 RED BLOOD CELL COUNT (BEAKER) (test qbqq=824) 3.19 M/ L 3.93-5.22 HEMOGLOBIN (BEAKER) (test byhq=823) 7.2 GM/DL 11.2-15.7 HEMATOCRIT (BEAKER) (test ipwr=689) 23.3 % 34.1-44.9 MEAN CORPUSCULAR VOLUME (BEAKER) (test hhxe=534) 73.0 fL 79.4-94.8 MEAN CORPUSCULAR HEMOGLOBIN (BEAKER) (test vqed=651) 22.6 pg 25.6-32.2 MEAN CORPUSCULAR HEMOGLOBIN CONC (BEAKER) (test zyqc=532) 30.9 GM/DL 32.2-35.5 RED CELL DISTRIBUTION WIDTH (BEAKER) (test wggf=473) 16.8 % 11.7-14.4 PLATELET COUNT (BEAKER) (test wmrc=106) 361 K/CU MM 150-450 MEAN PLATELET VOLUME (BEAKER) (test qxmh=727) 9.9 fL 9.4-12.3 NUCLEATED RED BLOOD CELLS (BEAKER) (test mqqr=381) 5 /100 WBC 0-0 NEUTROPHILS RELATIVE PERCENT (BEAKER) (test wyik=005) 74 % LYMPHOCYTES RELATIVE PERCENT (BEAKER) (test csxx=101) 18 % MONOCYTES RELATIVE PERCENT (BEAKER) (test cvkd=359) 6 % EOSINOPHILS RELATIVE PERCENT (BEAKER) (test nrhy=664) 0 % BASOPHILS RELATIVE PERCENT (BEAKER) (test eesh=644) 1 % NEUTROPHILS ABSOLUTE COUNT (BEAKER) (test edmr=089) 10.83 K/ L 1.56-6.13 LYMPHOCYTES ABSOLUTE COUNT (BEAKER) (test ccel=926) 2.61 K/ L 1.18-3.74 MONOCYTES ABSOLUTE COUNT (BEAKER) (test igpm=533) 0.90 K/ L 0.24-0.36 EOSINOPHILS ABSOLUTE COUNT (BEAKER) (test igrj=855) 0.01 K/ L 0.04-0.36 BASOPHILS ABSOLUTE COUNT (BEAKER) (test bfqk=457) 0.11 K/ L 0.01-0.08 IMMATURE GRANULOCYTES-RELATIVE PERCENT (BEAKER) (test yhew=3620) 1 % 0-1 [id number] 07:56:00* Test Item Value Reference Range Comments MAGNESIUM (BEAKER) (test nyxe=384) 2.4 mg/dL 1.6-2.6 BASIC METABOLIC [id number] 07:56:00* Test Item Value Reference Range Comments SODIUM (BEAKER) (test mhwi=854) 142 meq/L 136-145 POTASSIUM (BEAKER) (test gfkr=319) 3.7 meq/L 3.5-5.1 CHLORIDE (BEAKER) (test zoke=645) 111 meq/L 98-107 CO2 (BEAKER) (test suzv=724) 20 meq/L 22-29 BLOOD UREA NITROGEN (BEAKER) (test hjsv=314) 5 mg/dL 7-21 CREATININE (BEAKER) (test skqu=213) 0.57 mg/dL 0.57-1.25 GLUCOSE RANDOM (BEAKER) (test kdsk=901) 87 mg/dL 70-105 CALCIUM (BEAKER) (test aomi=496) 9.4 mg/dL 8.4-10.2 EGFR (SILAS) (test zzbr=1199) 162 mL/min/1.73 sq m ESTIMATED GFR IS NOT ACCURATE CREATININE CLEARANCE IN PREDICTING GLOMERULAR FILTRATION RATE. ESTIMATED GFR IS NOT APPLICABLE FOR DIALYSIS PATIENTS. CT, CHEST WITH IV CONTRAST- PE TEST [id number] 00:04:00Reason for exam:-> chest painIs the patient ?->UnknownWhat is the patient's sedation requirement?->No SedationFINAL REPORT EXAMINATION: CHEST CT / PE PROTOCOL CLINICAL HISTORY: CHEST PAIN, SHORTNESS OF BREATH COMPARISON EXAMINATION: NONE TECHNIQUE: Following the administration of I.V. contrast, axial images were acquired through the pulmonary arteries during the early arterial phase of imaging. Following a brief delay, additional axial tomographic images were acquired through the thorax. Following postprocessing, coronal and sagittal reformatted images were created and reviewed. The exam was performed according to our departmental dose optimization program which includes automated exposure control, adjustment of the mA and/or kV according to patient's size and/or use of iterative reconstructive technique. FINDINGS: No evidence of a pulmonary embolus. The thoracic aorta is normal in caliber. No evidence of an aortic dissection. The heart is borderline enlarged. No evidence of a pericardial effusion. The esophagus is decompressed. No evidence of pathologic mediastinal or axillary adenopathy. Anterior-superior mediastinal abnormal soft tissue attenuation is morphologically suggestive of residual thymic tissue. Subtle curvilinear and patchy opacities are noted in the dependent portion of both lower lobes, left greater than right. No evidence of pulmonary edema, pleural effusion, pneumothorax or pneumomediastinum. Limited images of the upper abdomen demonstrate several enhancing nodules within the inc ompletely visualized spleen. The largest nodule measures 2 cm. Several of the t horacic vertebral bodies demonstrate central endplate depressions and have a mix ed osteolytic/blastic appearance compatible. The humeral heads are associated wi th subtle bony sclerosis which is also suspicious for avascular necrosis. IMPRES GAMA: Small scattered bilateral lower lobe opacities, left slightly larger than right. Although a component may reflect atelectasis, an early pneumonia should also be considered. Multiple enhancing nodules in the incompletely visualized sp steven as detailed above. Follow-up MRI imaging, preferably with gadolinium recomm ended for further tissue characterization. Osseous manifestations of sickle cell disease. No evidence of a PE. Results discussed with Dr. Olsen Signed: Monse Posada MDReport Verified Date/Time: 12/27/2017 00:04:32 Reading Location: [address] Reading Room ALYSIS W/ [id number] 22:12:00* Test Item Value Reference Range Comments COLOR (BEAKER) (test vmls=353) Yellow CLARITY (BEAKER) (test dojj=191) Clear SPECIFIC GRAVITY UA (BEAKER) (test rdls=538) 1.009 1.001-1.035 PH UA (BEAKER) (test sfjc=666) 7.0 5.0-8.0 PROTEIN UA (BEAKER) (test hman=238) Negative Negative GLUCOSE UA (BEAKER) (test nhqi=782) Negative Negative KETONES UA (BEAKER) (test ifjw=108) 20 mg/dL Negative BILIRUBIN UA (BEAKER) (test gnye=637) Negative Negative BLOOD UA (BEAKER) (test rtcz=617) Negative Negative NITRITE UA (BEAKER) (test ltbv=820) Negative Negative LEUKOCYTE ESTERASE UA (BEAKER) (test izdt=886) Negative Negative UROBILINOGEN UA (BEAKER) (test ueqv=775) 0.2 mg/dL 0.2-1.0 RBC UA (BEAKER) (test wpzr=157) 0 /HPF WBC UA (BEAKER) (test eaau=037) 1 /HPF BACTERIA (BEAKER) (test yjxd=595) Occasional MUCUS (BEAKER) (test joyu=9160) Moderate SQUAMOUS EPITHELIAL (BEAKER) (test zdjx=485) 2 /HPF SOURCE(BEAKER) (test qhew=3025) Urine, Clean Catch SCREEN, [id number] 22:10:00* Test Item Value Reference Range Comments TEST URINE (BEAKER) (test zisc=188) Negative CREATINE KINASE (CK), TOTAL AND [id number] 20:59:00* Test Item Value Reference Range Comments CREATINE KINASE TOTAL (BEAKER) (test rgbj=268) 32 U/L 29-200 CREATINE KINASE-MB (BEAKER) (test jehk=094) 0.4 ng/mL 0.0-6.6 CREATINE KINASE-MB INDEX (BEAKER) (test dmoc=451) 1.3 % CK-MB Reference Range:<6.7 Normal6.7-10.0 Borderline>10.0 Abnormal TROPONIN [id number] 20:59:00* Test Item Value Reference Range Comments TROPONIN I (BEAKER) (test mqhj=625) < ng/mL 0.00-0.03 Troponin I (TnI) levels must be interpreted in the context of the presenting sym ptoms and the clinical findings. Elevated TnI levels indicate myocardial damage, but are not specific for ischemic heart disease. Elevated TnI levels are seen in patients with other cardiac conditions (including myocarditis and congestive h eart failure), and slight TnI elevations occur in patients with other conditions , including sepsis, renal failure, acidosis, acute neurological disease, and per sistent tachyarrhythmia.BASIC METABOLIC [id number] 20:52:00* Test Item Value Reference Range Comments SODIUM (BEAKER) (test knxt=827) 140 meq/L 136-145 POTASSIUM (BEAKER) (test bmfw=572) 3.7 meq/L 3.5-5.1 CHLORIDE (BEAKER) (test hqyt=388) 110 meq/L 98-107 CO2 (BEAKER) (test mwwj=366) 24 meq/L 22-29 BLOOD UREA NITROGEN (BEAKER) (test kdna=341) 7 mg/dL 7-21 CREATININE (BEAKER) (test gpef=522) 0.56 mg/dL 0.57-1.25 GLUCOSE RANDOM (BEAKER) (test klgm=880) 96 mg/dL 70-105 CALCIUM (BEAKER) (test giko=804) 9.0 mg/dL 8.4-10.2 EGFR (BEAKER) (test rupt=8284) 166 mL/min/1.73 sq m ESTIMATED GFR IS NOT ACCURATE CREATININE CLEARANCE IN PREDICTING GLOMERULAR FILTRATION RATE. ESTIMATED GFR IS NOT APPLICABLE FOR DIALYSIS PATIENTS. CBC W/PLT COUNT & AUTO [id number] 20:40:00* Test Item Value Reference Range Comments WHITE BLOOD CELL COUNT (BEAKER) (test pxdb=872) 15.2 K/ L 3.5-10.5 RED BLOOD CELL COUNT (BEAKER) (test qkvm=698) 2.87 M/ L 3.93-5.22 HEMOGLOBIN (BEAKER) (test jcpu=138) 6.4 GM/DL 11.2-15.7 HEMATOCRIT (BEAKER) (test dxcw=206) 21.1 % 34.1-44.9 MEAN CORPUSCULAR VOLUME (BEAKER) (test yoiq=416) 73.5 fL 79.4-94.8 MEAN CORPUSCULAR HEMOGLOBIN (BEAKER) (test vrqv=249) 22.3 pg 25.6-32.2 MEAN CORPUSCULAR HEMOGLOBIN CONC (BEAKER) (test oqhe=351) 30.3 GM/DL 32.2-35.5 RED CELL DISTRIBUTION WIDTH (BEAKER) (test wxsx=651) 16.3 % 11.7-14.4 PLATELET COUNT (BEAKER) (test ovpj=695) 343 K/CU MM 150-450 MEAN PLATELET VOLUME (BEAKER) (test ruil=006) 10.9 fL 9.4-12.3 NUCLEATED RED BLOOD CELLS (BEAKER) (test rvbe=823) 2 /100 WBC 0-0 NEUTROPHILS RELATIVE PERCENT (BEAKER) (test aasd=554) 72 % LYMPHOCYTES RELATIVE PERCENT (BEAKER) (test rsjd=151) 17 % MONOCYTES RELATIVE PERCENT (BEAKER) (test bnyx=434) 9 % EOSINOPHILS RELATIVE PERCENT (BEAKER) (test mdcn=969) 0 % BASOPHILS RELATIVE PERCENT (BEAKER) (test ytat=627) 1 % NEUTROPHILS ABSOLUTE COUNT (BEAKER) (test qdwx=496) 11.02 K/ L 1.56-6.13 LYMPHOCYTES ABSOLUTE COUNT (BEAKER) (test mfwf=925) 2.61 K/ L 1.18-3.74 MONOCYTES ABSOLUTE COUNT (BEAKER) (test fdre=076) 1.35 K/ L 0.24-0.36 EOSINOPHILS ABSOLUTE COUNT (BEAKER) (test orki=631) 0.00 K/ L 0.04-0.36 BASOPHILS ABSOLUTE COUNT (BEAKER) (test evke=641) 0.09 K/ L 0.01-0.08 IMMATURE GRANULOCYTES-RELATIVE PERCENT (BEAKER) (test ywrj=6296) 1 % 0-1 CT, BRAIN, WITHOUT [id number] 19:35:00Reason for exam:->headacheIs the patient ?->UnknownWhat is the patient's sedation requirement?->No SedationFINAL REPORT CT head without contrast. Comparisons: No Reason for exam: headachesyncope. Discussion: Multiple axial CT images of the head are provided without contrast evaluated in brain and bone windows. Dose modulation, iterative reconstruction, and/or weight based adjustment of the mA/kV was utilized to reduce the radiation dose to as low as reasonably achievable. There is no CT evidence of intracranial hemorrhage, mass-effect, hydrocephalus, shift, or extra-axial collections. The visualized dural sinus regions, orbital contents, paranasal sinuses, bones and surrounding soft tissues are unremarkable. Impressions: 1. No specific evidence of acute intracranial abnormality. Signed: Jann Saavedra Verified Date/Time: 12/26/2017 19:35:03 , CHEST, 1 VIEW, NON [id number] 18:31:00Reason for exam:->CHEST PAINIs the patient ?->UnknownShould this be performed at the bedside?->YesFINAL REPORT Chest, one view HISTORY: Chest pain COMPARISON: Chest pain DISCUSSION: Ill-defined opacities in the left lower lung. Cardiomediastinal silhouette is unremarkable. No large pleural effusion or pneumothorax. Central endplate deformities, in keeping with history of sickle cell disease. No acute osseous abnormalities. IMPRESSION: Ill-defined opacities in the left lower lung may represent pneumonia in the appropriate clinical context. Findings discussed with Dr. Olsen at 6:30 PM on 12/26/2017. Signed: Wiliam Albarado Verified Date/Time: 12/26/2017 18:31:34 Reading Location: [facility] C013W Consult Reading Room W/PLT COUNT & AUTO [id number] 13:40:00* Test Item Value Reference Range Comments WHITE BLOOD CELL COUNT (BEAKER) (test xenm=914) 6.2 K/ L 3.5-10.5 RED BLOOD CELL COUNT (BEAKER) (test zqax=850) 2.98 M/ L 3.93-5.22 HEMOGLOBIN (BEAKER) (test repz=836) 7.1 GM/DL 11.2-15.7 HEMATOCRIT (BEAKER) (test wrze=626) 22.7 % 34.1-44.9 MEAN CORPUSCULAR VOLUME (BEAKER) (test corp=358) 76.2 fL 79.4-94.8 MEAN CORPUSCULAR HEMOGLOBIN (BEAKER) (test vvzd=530) 23.8 pg 25.6-32.2 MEAN CORPUSCULAR HEMOGLOBIN CONC (BEAKER) (test pbuz=978) 31.3 GM/DL 32.2-35.5 RED CELL DISTRIBUTION WIDTH (BEAKER) (test phou=393) 18.8 % 11.7-14.4 PLATELET COUNT (BEAKER) (test fnvm=094) 266 K/CU MM 150-450 MEAN PLATELET VOLUME (BEAKER) (test vyih=616) 10.5 fL 9.4-12.3 NUCLEATED RED BLOOD CELLS (BEAKER) (test pxax=380) 0 /100 WBC 0-0 NEUTROPHILS RELATIVE PERCENT (BEAKER) (test cizh=024) 35 % LYMPHOCYTES RELATIVE PERCENT (BEAKER) (test jnkc=600) 46 % MONOCYTES RELATIVE PERCENT (BEAKER) (test mqju=291) 14 % EOSINOPHILS RELATIVE PERCENT (BEAKER) (test hnfm=242) 4 % BASOPHILS RELATIVE PERCENT (BEAKER) (test pnom=413) 1 % NEUTROPHILS ABSOLUTE COUNT (BEAKER) (test upeq=484) 2.15 K/ L 1.56-6.13 LYMPHOCYTES ABSOLUTE COUNT (BEAKER) (test pokj=955) 2.84 K/ L 1.18-3.74 MONOCYTES ABSOLUTE COUNT (BEAKER) (test uedr=683) 0.89 K/ L 0.24-0.36 EOSINOPHILS ABSOLUTE COUNT (BEAKER) (test hsod=657) 0.25 K/ L 0.04-0.36 BASOPHILS ABSOLUTE COUNT (BEAKER) (test xmbr=331) 0.06 K/ L 0.01-0.08 IMMATURE GRANULOCYTES-RELATIVE PERCENT (BEAKER) (test hvua=4896) 0 % 0-1 (MANUAL DIFFERENTIAL)2017-05-25 13:40:00* Test Item Value Reference Range Comments TOTAL COUNTED (BEAKER) (test xfvg=8448) WBC MORPHOLOGY (BEAKER) (test rike=409) Normal PLT MORPHOLOGY (BEAKER) (test ehas=118) Normal ANISOCYTOSIS (BEAKER) (test gyja=210) 2+ moderate POLYCHROMATOPHILLIC RBCS(BEAKER) (test mgaw=141) 2+ moderate SICKLE CELLS (BEAKER) (test xmjv=788) 1+ few TARGET CELLS (BEAKER) (test libs=314) 2+ moderate CBC W/PLT COUNT & AUTO [id number] 13:36:00* Test Item Value Reference Range Comments WHITE BLOOD CELL COUNT (BEAKER) (test wcbe=910) 6.5 K/ L 3.5-10.5 RED BLOOD CELL COUNT (BEAKER) (test mcfp=179) 3.01 M/ L 3.93-5.22 HEMOGLOBIN (BEAKER) (test utgk=845) 7.1 GM/DL 11.2-15.7 HEMATOCRIT (BEAKER) (test xakg=646) 22.9 % 34.1-44.9 MEAN CORPUSCULAR VOLUME (BEAKER) (test nwio=783) 76.1 fL 79.4-94.8 MEAN CORPUSCULAR HEMOGLOBIN (BEAKER) (test jbrj=272) 23.6 pg 25.6-32.2 MEAN CORPUSCULAR HEMOGLOBIN CONC (BEAKER) (test tcxt=628) 31.0 GM/DL 32.2-35.5 RED CELL DISTRIBUTION WIDTH (BEAKER) (test oawz=114) 19.0 % 11.7-14.4 PLATELET COUNT (BEAKER) (test thdh=829) 259 K/CU MM 150-450 MEAN PLATELET VOLUME (BEAKER) (test kthd=478) 10.5 fL 9.4-12.3 NUCLEATED RED BLOOD CELLS (BEAKER) (test xfnq=947) 0 /100 WBC 0-0 NEUTROPHILS RELATIVE PERCENT (BEAKER) (test vaol=456) 34 % LYMPHOCYTES RELATIVE PERCENT (BEAKER) (test ijpq=167) 46 % MONOCYTES RELATIVE PERCENT (BEAKER) (test gnlq=047) 16 % EOSINOPHILS RELATIVE PERCENT (BEAKER) (test uypk=444) 4 % BASOPHILS RELATIVE PERCENT (BEAKER) (test ngva=131) 1 % NEUTROPHILS ABSOLUTE COUNT (BEAKER) (test czvo=214) 2.20 K/ L 1.56-6.13 LYMPHOCYTES ABSOLUTE COUNT (BEAKER) (test plqy=359) 2.95 K/ L 1.18-3.74 MONOCYTES ABSOLUTE COUNT (BEAKER) (test fhpc=024) 1.01 K/ L 0.24-0.36 EOSINOPHILS ABSOLUTE COUNT (BEAKER) (test apea=542) 0.25 K/ L 0.04-0.36 BASOPHILS ABSOLUTE COUNT (BEAKER) (test efuj=605) 0.07 K/ L 0.01-0.08 IMMATURE GRANULOCYTES-RELATIVE PERCENT (BEAKER) (test xecs=2907) 0 % 0-1 (MANUAL DIFFERENTIAL)2017-05-25 13:36:00* Test Item Value Reference Range Comments TOTAL COUNTED (BEAKER) (test uenw=8000) WBC MORPHOLOGY (BEAKER) (test lkop=253) Normal PLT MORPHOLOGY (BEAKER) (test dbfm=954) Normal OVALOCYTES (BEAKER) (test fbgi=633) 1+ few IMMATURE RETICULOCYTE [id number] 06:42:00* Test Item Value Reference Range Comments IMMATURE RETIC FRACTION (BEAKER) (test bvgh=3390) 21.900 % 3.000-15.900 RETICULOCYTE COUNT PCT (BEAKER) (test mtzx=262) 1.1 % 0.5-1.7 LACTATE DEHYDROGENASE (LDH)2017-05-25 06:19:00* Test Item Value Reference Range Comments LACTATE DEHYDROGENASE (BEAKER) (test lsgs=432) 422 U/L 125-220 BASIC METABOLIC [id number] 06:19:00* Test Item Value Reference Range Comments SODIUM (BEAKER) (test wxal=659) 141 meq/L 136-145 POTASSIUM (BEAKER) (test bfuk=027) 3.9 meq/L 3.5-5.1 CHLORIDE (BEAKER) (test ludq=099) 108 meq/L 98-107 CO2 (BEAKER) (test vvab=998) 27 meq/L 22-29 BLOOD UREA NITROGEN (BEAKER) (test tlkr=425) 5 mg/dL 7-21 CREATININE (BEAKER) (test ulbh=243) 0.49 mg/dL 0.57-1.25 GLUCOSE RANDOM (BEAKER) (test tzon=135) 86 mg/dL 70-105 CALCIUM (BEAKER) (test nuch=695) 8.6 mg/dL 8.4-10.2 EGFR (BEAKER) (test ksix=9624) 195 mL/min/1.73 sq m ESTIMATED GFR IS NOT ACCURATE CREATININE CLEARANCE IN PREDICTING GLOMERULAR FILTRATION RATE. ESTIMATED GFR IS NOT APPLICABLE FOR DIALYSIS PATIENTS. BASIC METABOLIC [id number] 06:50:00* Test Item Value Reference Range Comments SODIUM (BEAKER) (test cxzf=088) 142 meq/L 136-145 POTASSIUM (BEAKER) (test uhpc=605) 3.9 meq/L 3.5-5.1 CHLORIDE (BEAKER) (test ahlx=456) 108 meq/L 98-107 CO2 (BEAKER) (test xoff=842) 28 meq/L 22-29 BLOOD UREA NITROGEN (BEAKER) (test eafb=257) 5 mg/dL 7-21 CREATININE (BEAKER) (test mshr=515) 0.54 mg/dL 0.57-1.25 GLUCOSE RANDOM (BEAKER) (test aqch=522) 82 mg/dL 70-105 CALCIUM (BEAKER) (test itdm=065) 9.2 mg/dL 8.4-10.2 EGFR (BEAKER) (test ujjv=4996) 174 mL/min/1.73 sq m ESTIMATED GFR IS NOT ACCURATE CREATININE CLEARANCE IN PREDICTING GLOMERULAR FILTRATION RATE. ESTIMATED GFR IS NOT APPLICABLE FOR DIALYSIS PATIENTS. CBC W/PLT COUNT & AUTO [id number] 06:12:00* Test Item Value Reference Range Comments WHITE BLOOD CELL COUNT (BEAKER) (test rsfz=385) 7.0 K/ L 3.5-10.5 RED BLOOD CELL COUNT (BEAKER) (test ooxs=834) 3.47 M/ L 3.93-5.22 HEMOGLOBIN (BEAKER) (test xjko=455) 8.2 GM/DL 11.2-15.7 HEMATOCRIT (BEAKER) (test btrq=006) 26.4 % 34.1-44.9 MEAN CORPUSCULAR VOLUME (BEAKER) (test hefz=915) 76.1 fL 79.4-94.8 MEAN CORPUSCULAR HEMOGLOBIN (BEAKER) (test hzch=881) 23.6 pg 25.6-32.2 MEAN CORPUSCULAR HEMOGLOBIN CONC (BEAKER) (test sncz=425) 31.1 GM/DL 32.2-35.5 RED CELL DISTRIBUTION WIDTH (BEAKER) (test sbrp=721) 19.6 % 11.7-14.4 PLATELET COUNT (BEAKER) (test zpbe=731) 298 K/CU MM 150-450 MEAN PLATELET VOLUME (BEAKER) (test weld=268) 10.3 fL 9.4-12.3 NUCLEATED RED BLOOD CELLS (BEAKER) (test bcga=121) 0 /100 WBC 0-0 NEUTROPHILS RELATIVE PERCENT (BEAKER) (test yivy=254) 50 % LYMPHOCYTES RELATIVE PERCENT (BEAKER) (test xllf=360) 33 % MONOCYTES RELATIVE PERCENT (BEAKER) (test hsdn=150) 12 % EOSINOPHILS RELATIVE PERCENT (BEAKER) (test hadi=999) 4 % BASOPHILS RELATIVE PERCENT (BEAKER) (test egnf=182) 1 % NEUTROPHILS ABSOLUTE COUNT (BEAKER) (test kqoc=761) 3.49 K/ L 1.56-6.13 LYMPHOCYTES ABSOLUTE COUNT (BEAKER) (test cvkm=437) 2.33 K/ L 1.18-3.74 MONOCYTES ABSOLUTE COUNT (BEAKER) (test uasx=822) 0.82 K/ L 0.24-0.36 EOSINOPHILS ABSOLUTE COUNT (BEAKER) (test qwap=812) 0.31 K/ L 0.04-0.36 BASOPHILS ABSOLUTE COUNT (BEAKER) (test crvb=796) 0.04 K/ L 0.01-0.08 IMMATURE GRANULOCYTES-RELATIVE PERCENT (BEAKER) (test owwy=7721) 0 % 0-1 CBC W/PLT COUNT & AUTO [id number] 14:38:00* Test Item Value Reference Range Comments WHITE BLOOD CELL COUNT (BEAKER) (test yrdo=676) 9.9 K/ L 3.5-10.5 RED BLOOD CELL COUNT (BEAKER) (test rkva=025) 3.41 M/ L 3.93-5.22 HEMOGLOBIN (BEAKER) (test mmgm=614) 8.4 GM/DL 11.2-15.7 HEMATOCRIT (BEAKER) (test lnzw=874) 25.4 % 34.1-44.9 MEAN CORPUSCULAR VOLUME (BEAKER) (test addj=714) 74.5 fL 79.4-94.8 MEAN CORPUSCULAR HEMOGLOBIN (BEAKER) (test zytr=050) 24.6 pg 25.6-32.2 MEAN CORPUSCULAR HEMOGLOBIN CONC (BEAKER) (test rroi=130) 33.1 GM/DL 32.2-35.5 RED CELL DISTRIBUTION WIDTH (BEAKER) (test vdth=236) 19.1 % 11.7-14.4 PLATELET COUNT (BEAKER) (test dxqs=171) 327 K/CU MM 150-450 MEAN PLATELET VOLUME (BEAKER) (test pqbn=904) 10.3 fL 9.4-12.3 NUCLEATED RED BLOOD CELLS (BEAKER) (test rhtp=476) 3 /100 WBC 0-0 NEUTROPHILS RELATIVE PERCENT (BEAKER) (test sytq=169) 50 % LYMPHOCYTES RELATIVE PERCENT (BEAKER) (test afgc=291) 32 % MONOCYTES RELATIVE PERCENT (BEAKER) (test cvcx=492) 14 % EOSINOPHILS RELATIVE PERCENT (BEAKER) (test yybo=154) 2 % BASOPHILS RELATIVE PERCENT (BEAKER) (test ipso=937) 1 % NEUTROPHILS ABSOLUTE COUNT (BEAKER) (test gwph=074) 5.01 K/ L 1.56-6.13 LYMPHOCYTES ABSOLUTE COUNT (BEAKER) (test xphb=782) 3.20 K/ L 1.18-3.74 MONOCYTES ABSOLUTE COUNT (BEAKER) (test xukg=753) 1.34 K/ L 0.24-0.36 EOSINOPHILS ABSOLUTE COUNT (BEAKER) (test tile=362) 0.23 K/ L 0.04-0.36 BASOPHILS ABSOLUTE COUNT (BEAKER) (test xngn=192) 0.09 K/ L 0.01-0.08 IMMATURE GRANULOCYTES-RELATIVE PERCENT (BEAKER) (test ryon=9809) 1 % 0-1 (MANUAL DIFFERENTIAL)2017-05-19 14:38:00* Test Item Value Reference Range Comments TOTAL COUNTED (BEAKER) (test mwgd=4016) WBC MORPHOLOGY (BEAKER) (test moze=651) Normal PLT MORPHOLOGY (BEAKER) (test yjcm=384) Normal FERNANDO-JOLLY BODIES (BEAKER) (test typp=213) 1+ few POIKILOCYTES (BEAKER) (test mvee=614) 1+ few POLYCHROMATOPHILLIC RBCS(BEAKER) (test owut=198) 1+ few SICKLE CELLS (BEAKER) (test ouix=173) 2+ moderate TROPONIN [id number] 08:47:00* Test Item Value Reference Range Comments TROPONIN I (BEAKER) (test axtb=014) < ng/mL 0.00-0.03 Effective 09/09/2014: Reference Range ChangeNew: 0.00-0.03 Previous 0.00-0.15T roponin I (TnI) levels must be interpreted in the context of the presenting symp toms and the clinical findings. Elevated TnI levels indicate myocardial damage, but are not specific for ischemic heart disease. Elevated TnI levels are seen in patients with other cardiac conditions (including myocarditis and congestive he art failure), and slight TnI elevations occur in patients with other conditions, including sepsis, renal failure, acidosis, acute neurological disease, and pers istent tachyarrhythmia.[id number] 07:08:00* Test Item Value Reference Range Comments PHOSPHORUS (BEAKER) (test rxxd=329) 5.0 mg/dL 2.3-4.7 [id number] 07:08:00* Test Item Value Reference Range Comments MAGNESIUM (BEAKER) (test mmwj=449) 1.9 mg/dL 1.6-2.6 BASIC METABOLIC [id number] 07:08:00* Test Item Value Reference Range Comments SODIUM (BEAKER) (test elkv=770) 142 meq/L 136-145 POTASSIUM (BEAKER) (test jhcg=914) 3.8 meq/L 3.5-5.1 CHLORIDE (BEAKER) (test pbjx=822) 111 meq/L 98-107 CO2 (BEAKER) (test qxps=864) 25 meq/L 22-29 BLOOD UREA NITROGEN (BEAKER) (test kmfu=041) 2 mg/dL 7-21 CREATININE (BEAKER) (test dlnd=842) 0.52 mg/dL 0.57-1.25 GLUCOSE RANDOM (BEAKER) (test yawo=429) 86 mg/dL 70-105 CALCIUM (BEAKER) (test jxuj=495) 9.1 mg/dL 8.4-10.2 EGFR (BEAKER) (test xdtr=3529) 182 mL/min/1.73 sq m ESTIMATED GFR IS NOT ACCURATE CREATININE CLEARANCE IN PREDICTING GLOMERULAR FILTRATION RATE. ESTIMATED GFR IS NOT APPLICABLE FOR DIALYSIS PATIENTS. HEPATIC FUNCTION [id number] 07:08:00* Test Item Value Reference Range Comments TOTAL PROTEIN (BEAKER) (test zzan=177) 6.2 gm/dL 6.0-8.3 ALBUMIN (BEAKER) (test jsch=3626) 3.9 g/dL 3.5-5.0 BILIRUBIN TOTAL (BEAKER) (test pjab=579) 1.5 mg/dL 0.2-1.2 BILIRUBIN DIRECT (BEAKER) (test nrqt=014) 0.5 mg/dL 0.1-0.5 ALKALINE PHOSPHATASE (BEAKER) (test bhwo=876) 59 U/L 40-150 AST (SGOT) (BEAKER) (test oazk=764) 21 U/L 5-34 ALT (SGPT) (BEAKER) (test zirm=291) 14 U/L 6-55 CBC W/PLT COUNT & AUTO [id number] 16:09:00* Test Item Value Reference Range Comments WHITE BLOOD CELL COUNT (BEAKER) (test cxgp=315) 11.5 K/ L 3.5-10.5 RED BLOOD CELL COUNT (BEAKER) (test deud=407) 2.58 M/ L 3.93-5.22 HEMOGLOBIN (BEAKER) (test qpqp=999) 5.7 GM/DL 11.2-15.7 HEMATOCRIT (BEAKER) (test shzx=132) 17.9 % 34.1-44.9 MEAN CORPUSCULAR VOLUME (BEAKER) (test ynbs=790) 69.4 fL 79.4-94.8 MEAN CORPUSCULAR HEMOGLOBIN (BEAKER) (test tjqa=379) 22.1 pg 25.6-32.2 MEAN CORPUSCULAR HEMOGLOBIN CONC (BEAKER) (test sdcq=137) 31.8 GM/DL 32.2-35.5 RED CELL DISTRIBUTION WIDTH (BEAKER) (test skwf=852) 15.8 % 11.7-14.4 PLATELET COUNT (BEAKER) (test wybf=973) 322 K/CU MM 150-450 Discordant result compared to previous result; clinical correlation required. MEAN PLATELET VOLUME (BEAKER) (test jsfw=864) 10.1 fL 9.4-12.3 NUCLEATED RED BLOOD CELLS (BEAKER) (test ajhf=890) 2 /100 WBC 0-0 NEUTROPHILS RELATIVE PERCENT (BEAKER) (test frhc=791) 61 % LYMPHOCYTES RELATIVE PERCENT (BEAKER) (test vxus=585) 25 % MONOCYTES RELATIVE PERCENT (BEAKER) (test eklp=393) 11 % EOSINOPHILS RELATIVE PERCENT (BEAKER) (test dxup=826) 2 % BASOPHILS RELATIVE PERCENT (BEAKER) (test vrzk=415) 1 % NEUTROPHILS ABSOLUTE COUNT (BEAKER) (test ixwg=810) 7.00 K/ L 1.56-6.13 LYMPHOCYTES ABSOLUTE COUNT (BEAKER) (test qfdj=271) 2.88 K/ L 1.18-3.74 MONOCYTES ABSOLUTE COUNT (BEAKER) (test piqf=539) 1.24 K/ L 0.24-0.36 EOSINOPHILS ABSOLUTE COUNT (BEAKER) (test fjgx=218) 0.27 K/ L 0.04-0.36 BASOPHILS ABSOLUTE COUNT (BEAKER) (test aosg=691) 0.06 K/ L 0.01-0.08 IMMATURE GRANULOCYTES-RELATIVE PERCENT (BEAKER) (test jwps=7293) 1 % 0-1 (MANUAL DIFFERENTIAL)2017-05-18 16:09:00* Test Item Value Reference Range Comments TOTAL COUNTED (BEAKER) (test oagi=8967) WBC MORPHOLOGY (BEAKER) (test elhh=404) Normal PLT MORPHOLOGY (BEAKER) (test gvla=217) Normal POIKILOCYTES (BEAKER) (test ghgf=883) 2+ moderate POLYCHROMATOPHILLIC RBCS(BEAKER) (test xhns=074) 1+ few SICKLE CELLS (BEAKER) (test swlq=494) 2+ moderate B-TYPE NATRIURETIC FACTOR (BNP)2017-05-18 10:21:00* Test Item Value Reference Range Comments B-TYPE NATRIURETIC PEPTIDE (BEAKER) (test dwtn=770) 16 pg/mL 0-100 TROPONIN [id number] 10:21:00* Test Item Value Reference Range Comments TROPONIN I (BEAKER) (test bvkh=610) < ng/mL 0.00-0.03 Effective 09/09/2014: Reference Range ChangeNew: 0.00-0.03 Previous 0.00-0.15T roponin I (TnI) levels must be interpreted in the context of the presenting symp toms and the clinical findings. Elevated TnI levels indicate myocardial damage, but are not specific for ischemic heart disease. Elevated TnI levels are seen in patients with other cardiac conditions (including myocarditis and congestive he art failure), and slight TnI elevations occur in patients with other conditions, including sepsis, renal failure, acidosis, acute neurological disease, and pers istent tachyarrhythmia.RETICULOCYTE [id number] 07:48:00* Test Item Value Reference Range Comments RETICULOCYTE COUNT PCT (BEAKER) (test lqol=608) 10.3 % 0.5-1.7 LACTATE DEHYDROGENASE (LDH)2017-05-18 06:41:00* Test Item Value Reference Range Comments LACTATE DEHYDROGENASE (BEAKER) (test szbp=984) 359 U/L 125-220 BASIC METABOLIC [id number] 06:41:00* Test Item Value Reference Range Comments SODIUM (BEAKER) (test aimk=866) 142 meq/L 136-145 POTASSIUM (BEAKER) (test oxzf=266) 3.7 meq/L 3.5-5.1 CHLORIDE (BEAKER) (test rbog=188) 111 meq/L 98-107 CO2 (BEAKER) (test hxnc=537) 23 meq/L 22-29 BLOOD UREA NITROGEN (BEAKER) (test bnrh=626) 4 mg/dL 7-21 CREATININE (BEAKER) (test gtsi=202) 0.52 mg/dL 0.57-1.25 GLUCOSE RANDOM (BEAKER) (test zxrz=768) 90 mg/dL 70-105 CALCIUM (BEAKER) (test pgmh=840) 8.4 mg/dL 8.4-10.2 EGFR (BEAKER) (test nqbp=4225) 182 mL/min/1.73 sq m ESTIMATED GFR IS NOT ACCURATE CREATININE CLEARANCE IN PREDICTING GLOMERULAR FILTRATION RATE. ESTIMATED GFR IS NOT APPLICABLE FOR DIALYSIS PATIENTS. URINALYSIS W/ [id number] 15:40:00* Test Item Value Reference Range Comments COLOR (BEAKER) (test noss=714) Yellow CLARITY (BEAKER) (test obun=385) Clear SPECIFIC GRAVITY UA (BEAKER) (test bmzj=140) 1.010 1.001-1.035 PH UA (BEAKER) (test vhsc=826) 7.0 5.0-8.0 PROTEIN UA (BEAKER) (test lyaj=057) Negative Negative GLUCOSE UA (BEAKER) (test ayzi=655) Negative Negative KETONES UA (BEAKER) (test lofe=508) Negative Negative BILIRUBIN UA (BEAKER) (test whfk=183) Negative Negative BLOOD UA (BEAKER) (test enpc=096) Negative Negative NITRITE UA (BEAKER) (test avsk=765) Negative Negative LEUKOCYTE ESTERASE UA (BEAKER) (test wfej=632) Negative Negative UROBILINOGEN UA (BEAKER) (test owun=410) 0.2 mg/dL 0.2-1.0 RBC UA (BEAKER) (test ojjt=455) < /HPF WBC UA (BEAKER) (test bbjp=663) < /HPF BACTERIA (BEAKER) (test vrvr=568) Rare MUCUS (BEAKER) (test drcj=1930) Rare SQUAMOUS EPITHELIAL (BEAKER) (test hcmv=520) 1 /HPF SOURCE(BEAKER) (test nkab=8755) Urine, Voided SCREEN, [id number] 15:37:00* Test Item Value Reference Range Comments TEST URINE (BEAKER) (test qjci=394) Negative CBC W/PLT COUNT & AUTO [id number] 14:35:00* Test Item Value Reference Range Comments WHITE BLOOD CELL COUNT (BEAKER) (test utff=367) 12.3 K/ L 3.5-10.5 RED BLOOD CELL COUNT (BEAKER) (test tkzw=470) 3.05 M/ L 3.93-5.22 HEMOGLOBIN (BEAKER) (test miyw=451) 6.8 GM/DL 11.2-15.7 HEMATOCRIT (BEAKER) (test yluh=120) 21.2 % 34.1-44.9 MEAN CORPUSCULAR VOLUME (BEAKER) (test nttd=959) 69.5 fL 79.4-94.8 MEAN CORPUSCULAR HEMOGLOBIN (BEAKER) (test bpln=215) 22.3 pg 25.6-32.2 MEAN CORPUSCULAR HEMOGLOBIN CONC (BEAKER) (test vyzv=393) 32.1 GM/DL 32.2-35.5 RED CELL DISTRIBUTION WIDTH (BEAKER) (test zhyf=707) 16.4 % 11.7-14.4 PLATELET COUNT (BEAKER) (test rlux=749) 386 K/CU MM 150-450 MEAN PLATELET VOLUME (BEAKER) (test pxcg=632) 10.1 fL 9.4-12.3 NUCLEATED RED BLOOD CELLS (BEAKER) (test vxyj=652) 2 /100 WBC 0-0 NEUTROPHILS RELATIVE PERCENT (BEAKER) (test tvqx=295) 72 % LYMPHOCYTES RELATIVE PERCENT (BEAKER) (test acab=748) 16 % MONOCYTES RELATIVE PERCENT (BEAKER) (test tjht=351) 8 % EOSINOPHILS RELATIVE PERCENT (BEAKER) (test zehz=249) 1 % BASOPHILS RELATIVE PERCENT (BEAKER) (test mxtm=898) 1 % NEUTROPHILS ABSOLUTE COUNT (BEAKER) (test zocw=997) 8.89 K/ L 1.56-6.13 LYMPHOCYTES ABSOLUTE COUNT (BEAKER) (test trrl=660) 1.97 K/ L 1.18-3.74 MONOCYTES ABSOLUTE COUNT (BEAKER) (test upqn=314) 1.02 K/ L 0.24-0.36 EOSINOPHILS ABSOLUTE COUNT (BEAKER) (test ndim=895) 0.17 K/ L 0.04-0.36 BASOPHILS ABSOLUTE COUNT (BEAKER) (test ttgq=966) 0.07 K/ L 0.01-0.08 IMMATURE GRANULOCYTES-RELATIVE PERCENT (BEAKER) (test ltqv=2652) 2 % 0-1 (MANUAL DIFFERENTIAL)2017-05-17 14:35:00* Test Item Value Reference Range Comments TOTAL COUNTED (BEAKER) (test gspo=4970) WBC MORPHOLOGY (BEAKER) (test xgke=212) Normal PLT MORPHOLOGY (BEAKER) (test qqcz=812) Normal FERNANDO-JOLLY BODIES (BEAKER) (test pfgc=681) Present POLYCHROMATOPHILLIC RBCS(BEAKER) (test obxp=595) 1+ few SICKLE CELLS (BEAKER) (test cfbb=233) 2+ moderate T[employer] CELLS (BEAKER) (test kefc=663) 2+ moderate BASIC METABOLIC [id number] 13:59:00* Test Item Value Reference Range Comments SODIUM (BEAKER) (test ryin=711) 139 meq/L 136-145 POTASSIUM (BEAKER) (test cbex=701) 4.2 meq/L 3.5-5.1 CHLORIDE (BEAKER) (test nnum=831) 105 meq/L 98-107 CO2 (BEAKER) (test wthk=047) 26 meq/L 22-29 BLOOD UREA NITROGEN (DANIELAKER) (test hogd=033) 4 mg/dL 7-21 CREATININE (BEAKER) (test vdcs=842) 0.55 mg/dL 0.57-1.25 GLUCOSE RANDOM (BEAKER) (test buag=878) 85 mg/dL 70-105 CALCIUM (BEAKER) (test zluy=244) 9.4 mg/dL 8.4-10.2 EGFR (SILAS) (test nrkd=5464) 171 mL/min/1.73 sq m ESTIMATED GFR IS NOT ACCURATE CREATININE CLEARANCE IN PREDICTING GLOMERULAR FILTRATION RATE. ESTIMATED GFR IS NOT APPLICABLE FOR DIALYSIS PATIENTS. RETICULOCYTE [id number] 13:44:00* Test Item Value Reference Range Comments RETICULOCYTE COUNT PCT (SILAS) (test sjnp=697) 10.4 % 0.5-1.7
[2019-02-23] MEDS ORDERED: SODIUM CHLORIDE 0.9% 1000ML 1,000 ML IV STA (10:23)
[2019-02-23] MEDS ORDERED: ONDANSETRON HCL INJ 2MG/ML 2ML 2 MG/ML VIAL IV NR (10:23)
[2019-02-23 10:32] LABS: BASOPHILS # (AUTO) 0.1 (0.0-0.1); BASOPHILS % 0.6 % (0.0-1.0); EOSINOPHILS # (AUTO) 0.1 (0.0-0.4); EOSINOPHILS % 0.3 % (0.0-6.0); HEMOGLOBIN 7.2 g/dL (12.0-16.0); LYMPHOCYTES # (AUTO) 2.7 (1.0-3.2); LYMPHOCYTES % 14.2 % (18.0-39.1); MEAN CORPUSCULAR HEMOGLOBIN 22.5 pg (28-32); MEAN CORPUSCULAR HGB CONC 32.6 g/dL (31-35); MEAN CORPUSCULAR VOLUME 69.1 fL (81-99); MONOCYTES # (AUTO) 1.2 (0.2-0.8); MONOCYTES % 6.4 % (4.4-11.3); NEUTROPHILS # (AUTO) 13.8 (2.1-6.9); NEUTROPHILS % 72.4 % (38.7-80.0); PLATELET COUNT 216 x10e3/uL (140-360); RED CELL DISTRIBUTION WIDTH 17.6 % (11.7-14.4)
[2019-02-23 10:43] LABS: INR 1.07; PROTHROMBIN TIME 14.4 seconds (11.9-14.5)
[2019-02-23 10:43] LABS: HEMATOCRIT 22.1 % (34.2-44.1)
[2019-02-23 10:44] LABS: ALANINE AMINOTRANSFERASE 13 IU/L (0-55); ALBUMIN 4.4 g/dL (3.5-5.0); ALBUMIN/GLOBULIN RATIO 1.3 (0.8-2.0); ALKALINE PHOSPHATASE 79 IU/L (40-150); ANION GAP 15.4 mmol/L (8-16); BLOOD UREA NITROGEN < 5 mg/dL (7-26); BUN/CREATININE RATIO 9 (6-25); CALCIUM 10.2 mg/dL (8.4-10.2); CARBON DIOXIDE 22 mmol/L (22-29); CHLORIDE 110 mmol/L (98-107); CREATINE KINASE 22 IU/L (29-168); CREATININE, SERUM 0.58 mg/dL (0.57-1.11); EST GLOMERULAR FILTRATION RATE > 60 ML/MIN (60-); GLUCOSE 106 mg/dL (74-118); MAGNESIUM 2.9 MG/DL (1.3-2.1); POTASSIUM 4.4 mmol/L (3.5-5.1); SODIUM 143 mmol/L (136-145)
[2019-02-23 10:44] LABS: PARTIAL THROMBOPLASTIN TIME 27.1 seconds (23.8-35.5)
[2019-02-23] MEDS ORDERED: HYDROMORPHONE 2MG/ML 2 MG/ML ML IV ONE (10:45)
--- NOTE | 2019-02-23 11:10 | NUR ---
report given to veronica maya rn
[2019-02-23 11:12] LABS: LYMPHOCYTES % (MANUAL) 20 % (19-48); MONOCYTES % (MANUAL) 5 % (3.4-9.0); NEUTROPHILS % (MANUAL) 70 % (40-74); NUCLEATED RED BLOOD CELLS 4
[2019-02-23 11:13] LABS: ANISOCYTOSIS MODERATE; HOWELL-JOLLY BODIES FEW; PLATELET ESTIMATE ADEQUATE; PLATELET MORPHOLOGY COMMENT FEW LARGE; POLYCHROMASIA MODERATE
[2019-02-23 11:14] LABS: HYPOCHROMASIA MODERATE; OVALOCYTES FEW; POIKILOCYTOSIS MODE
[2019-02-23 11:15] LABS: RBC MORPHOLOGY COMMENT ABNORMAL; TARGET CELLS MODERATE; TEAR DROP CELLS FEW
--- NOTE | 2019-02-23 11:15 | NUR ---
rec'd pt in rm 3 from michelle anderson for continuity of care.
--- NOTE | 2019-02-23 12:10 | Diagnostic Imaging Report ---
EXAMINATION: CHEST SINGLE (PORTABLE) INDICATION: Sickle cell painful crisis COMPARISON: None FINDINGS: TUBES and LINES: None. LUNGS: Lungs are not well inflated. There are patchy opacities in the bilateral lower lungs, most confluent in the left lower lobe. No evidence of pulmonary edema. PLEURA: No pleural effusion or pneumothorax. HEART AND MEDIASTINUM: The cardiomediastinal silhouette is unremarkable. BONES AND SOFT TISSUES: No acute osseous abnormality. UPPER ABDOMEN: No free air under the diaphragm. IMPRESSION: Patchy bilateral lower lung consolidation suggestive of acute chest syndrome or pneumonia. Recommend follow-up chest radiograph to assess for resolution. Signed by: Dr. Bhargavi Beckett MD on 02/23/2019 12:06 PM
--- NOTE | 2019-02-23 12:20 | NUR ---
PT HAS REFUSED STRAIGHT-CATH
--- OUTSIDE RECORDS SUMMARY | 2019-02-23 12:41 | XMS REPORT | Clinical Summary ---
Author Author [facility] Address Unknown Phone Unavailable Care Team Providers Care Wet Pour Supervisor Name Role Phone Suleiman Banuelos MD PCP [...] ID Type Phone Address Plan / Group [facility] xxxxxxxxx HMO/PPO THCARE CHOICE/CHO ICE + Advance Directives Patient has advance care planning documents on file. For more information, louie strauss contact: Andrew Ruiz [address] [place] [address]
--- NOTE | 2019-02-23 13:24 | NUR ---
RCD PT FROM ER BY STRETCHER PT IS ALERT AND ORIENTED PT C/O PAIN ALL OVER BODY VITALS CHECKED IV PATENT ADMISSION ASSESSMENT AND HISTORY DONE PT IS NOT WILLING TO ANSWER MANY QUESTIONS PT ON CONTINUOUS PULSE OX INSTRUCTED PT REGARDING HOSPITAL POLICY AND ROUTINE BED LOW AND LOCKED CALL LIGHT IN REACH
[2019-02-23 13:35] LABS: CREATINE KINASE 14 IU/L (29-168)
[2019-02-23] MEDS: AZITHROMYCIN 500MG/NS 250 ML 250 ML IV SCH (14:00)
[2019-02-23] MEDS: DEXTROSE 5%/0.45% SOD CHL 1,000 ML IV SCH ×2 (14:00→17:50)
[2019-02-23] MEDS: CEFTRIAXONE SOD 1 GM/NS 50 ML 50 ML IV SCH (14:00)
[2019-02-23] MEDS ORDERED: SODIUM CHLORIDE 0.9% 250ML 250 ML IV NR (14:15)
[2019-02-23] MEDS ORDERED: ACETAMINOPHEN 325 MG TAB PO NR (14:15)
[2019-02-23] MEDS ORDERED: DIPHENHYDRAMINE HCL INJ 50 MG/ML VIAL IV NR (14:15)
[2019-02-23] MEDS: HYDROMORPHONE 2MG/ML 2 MG/ML ML IV PRN ×4 (14:52→23:53)
--- NOTE | 2019-02-23 15:13 | History and Physical ---
CHIEF COMPLAINT: Sickle cell anemia pain and worsening anemia. HISTORY OF PRESENT ILLNESS: The patient is a 23-year-old woman. She has a history of sickle cell anemia. She was recently discharged from [facility] after receiving treatment for a sickle cell crisis. She now continues to complain of pain all over her body. Pain is in her back as well as her chest and abdomen. She denies any fevers. She does note weakness and dyspnea. PAST MEDICAL HISTORY: Sickle cell anemia. PAST SURGICAL HISTORY: No prior surgeries. SOCIAL HISTORY: The patient is not an active smoker or drinker. She lives in [place]. FAMILY HISTORY: Significant for sickle cell disease. REVIEW OF SYSTEMS: The patient denies headache or fevers. She is not having neck pain. She does note some dyspnea. She is having some back pain as well as chest pain and abdominal pain. She has no leg edema. PHYSICAL EXAMINATION: VITAL SIGNS: The patient is afebrile. The blood pressure is 118/59 and the pulse is 125, saturation is 100%, and temperature is 99. HEENT: No facial swelling or erythema. CARDIAC: Regular rate and rhythm with normal S1 and S2. LUNGS: Auscultation of lungs shows decreased breath sounds at the bases. There is no wheezing. ABDOMEN: Soft, nontender. There is no rebound or guarding. EXTREMITIES: No leg edema or calf tenderness. There is no cyanosis or clubbing. SKIN: No rashes. NEUROLOGICAL: No focal abnormalities. LABORATORY DATA: White blood cell count is 19 and hemoglobin is 7.2. The platelet count is 216. BUN to creatinine ratio is normal. The other electrolytes are within normal limits. Total bilirubin is 1.3. PT and INR are normal. RADIOGRAPHIC DATA: Chest x-ray shows patchy lower lobe consolidation suggestive of possible pneumonia. IMPRESSION: 1. Sickle cell anemia with acute crisis. 2. Pneumonia. PLAN: 1. IV hydration. 2. Packed red blood cells. 3. Pain control. 4. Antibiotics. 5. Hematology consultation. Waylon Delarosa MD [facility] /[id number]
[2019-02-23] MEDS ORDERED: SODIUM CHLORIDE 0.9% 250ML 250 ML ONE (17:13)
[2019-02-23] MEDS: ONDANSETRON HCL INJ 2MG/ML 2ML 2 MG/ML VIAL IV PRN (17:22)
--- NOTE | 2019-02-23 17:22 | NUR ---
BLOOD TRANSFUSION STARTED AFTER VERIFIED WITH ANOTHER RN AND AFTER VITALS STAYED 15 MTS WITH PT
--- NOTE | 2019-02-23 17:40 | NUR ---
PT HAVE FEVER 99.[address] BAY GOT NEW ORDERS
[2019-02-23] MEDS ORDERED: ACETAMINOPHEN 325 MG TAB PO PRN (17:45)
--- NOTE | 2019-02-23 18:48 | NUR ---
PT ON BLOOD TRANSFUSION BED SIDE REPORT GIVEN TO ONCOMING NURSE
--- NOTE | 2019-02-23 20:00 | NUR ---
Dr. Chavez, solution make up operator called.
[2019-02-23] MEDS ORDERED: ZOLPIDEM TARTRATE 10 MG TAB PO PRN (21:00)
[2019-02-23 21:29] LABS: CLARITY,URINE CLEAR (CLEAR); COLOR,URINE YELLOW (YELLOW)
[2019-02-23 21:30] LABS: BILIRUBIN,URINE NEGATIVE (NEGATIVE); KETONES,URINE NEGATIVE (NEGATIVE); LEUKOCYTE ESTERASE ,URINE NEGATIVE (NEGATIVE); NITRITE,URINE NEGATIVE (NEGATIVE); PROTEIN,URINE DIPSTICK NEGATIVE (NEGATIVE); URINE UROBILINOGEN 0.2 mg/dL (0.2 - 1)
--- NOTE | 2019-02-23 21:33 | NUR ---
Dr. Delarosa called to inform him about patient pain and heart rate, ordered for morphine po 30mg and also fluids.
[2019-02-23 21:56] LABS: BACTERIA,URINE FEW /HPF; EPITHELIAL CELLS,URINE MANY /LPF; WBC,URINE (MAN) 0-5 /HPF (0-5)
[2019-02-23] MEDS: SODIUM CHLORIDE 0.45% 1,000 ML IV SCH (22:00)
[2019-02-23] MEDS: MORPHINE SULFATE 30 MG TAB ER PO PRN (22:45)
[2019-02-24] VITALS (8 sets, daily range): BP systolic 104–120; BP diastolic 56–58
[2019-02-24] MEDS: DEXTROSE 5%/0.45% SOD CHL 1,000 ML IV SCH (01:50)
--- NOTE | 2019-02-24 01:51 | NUR ---
patient received a visitor, introduced him as significant other, name is Mynor Hagan. security called up here and patient ok'ed for him to come up.
[2019-02-24] MEDS: HYDROMORPHONE 2MG/ML 2 MG/ML ML IV PRN ×11 (03:55→23:55)
--- NOTE | 2019-02-24 04:37 | NUR ---
02/23/19 @ 1900 Received report at bed side from day nurse, patient is alert and oriented, introduced self to patient and patient encouraged to call for help when needed with the call light, bed in lowest position and locked, needed items beside bed, patient is currently stable will continue to monitor.Blood product of unit number [id number], donor o pos, pt o pos, exp. at 03/21/2019 was ongoing, blood completed at 2039,v vitals stable. urine was collected and sent to lab., patient was not able to give nurses sputum at this time, patient made aware of its importance, verbalized will try and get it when she can. 2000: patient rounded and stable, 0000 patient rounded and stable 0200 patient rounded and stable 0400: patient rounded and stable.
[2019-02-24] MEDS: SODIUM CHLORIDE 0.45% 1,000 ML IV SCH ×3 (05:13→17:01)
[2019-02-24] MEDS: MORPHINE SULFATE 30 MG TAB ER PO PRN (05:15)
[2019-02-24] MEDS: ONDANSETRON HCL INJ 2MG/ML 2ML 2 MG/ML VIAL IV PRN ×3 (05:16→17:50)
--- NOTE | 2019-02-24 06:06 | Diagnostic Imaging Report ---
EXAMINATION: CHEST SINGLE (PORTABLE) INDICATION: ^PNEMONIA ^[id number] ^0525 ^Y COMPARISON: 02/23/2019 FINDINGS: AP view TUBES and LINES: None. LUNGS: Low lung volumes. Left lung base opacities. Also slightly increased medial right base opacities. PLEURA: No significant pleural effusion or pneumothorax. HEART AND MEDIASTINUM: The cardiac silhouette is enlarged on this AP view. BONES AND SOFT TISSUES: No acute osseous lesion. Soft tissues are unremarkable. UPPER ABDOMEN: No free air under the diaphragm. IMPRESSION: Not significantly changed or slightly increased left basilar opacities, representing acute chest syndrome and/or pneumonia. Also slightly increased medial right base opacities. Signed by: Dr. Stevan Pathak MD on 02/24/2019 6:03 AM
[2019-02-24 06:24] LABS: BASOPHILS # (AUTO) 0.1 (0.0-0.1); BASOPHILS % 0.5 % (0.0-1.0); EOSINOPHILS # (AUTO) 0.1 (0.0-0.4); EOSINOPHILS % 0.4 % (0.0-6.0); HEMATOCRIT 23.1 % (34.2-44.1); HEMOGLOBIN 7.5 g/dL (12.0-16.0); LYMPHOCYTES # (AUTO) 1.2 (1.0-3.2); LYMPHOCYTES % 7.6 % (18.0-39.1); MEAN CORPUSCULAR HEMOGLOBIN 23.1 pg (28-32); MEAN CORPUSCULAR HGB CONC 32.5 g/dL (31-35); MEAN CORPUSCULAR VOLUME 71.1 fL (81-99); MONOCYTES # (AUTO) 2.1 (0.2-0.8); MONOCYTES % 13.3 % (4.4-11.3); NEUTROPHILS # (AUTO) 12.1 (2.1-6.9); NEUTROPHILS % 76.8 % (38.7-80.0); PLATELET COUNT 269 x10e3/uL (140-360); RED BLOOD COUNT 3.25 x10e6/uL (3.6-5.1); RED CELL DISTRIBUTION WIDTH 18.3 % (11.7-14.4)
--- NOTE | 2019-02-24 06:45 | NUR ---
Dr. Chavez paged again for patient, spoke to Mehnaz, waiting for call back.
[2019-02-24 06:46] LABS: CREATINE KINASE 16 IU/L (29-168)
--- NOTE | 2019-02-24 07:02 | NUR ---
spoke to Dr. Delarosa about patient hgb of 7.5, stated nursing should follow up network development coordinator
--- NOTE | 2019-02-24 07:05 | NUR ---
RCD PT AT BED PT IS ALERT AND ORIENTED PT RESTING ON BED NO SIGNS OF ANY DISTRESS NOTED BED IV PATENT AND RUNNING 150 ML /HRLOW AND LOCKED CALL LIGHT IN REACH
--- NOTE | 2019-02-24 07:16 | NUR ---
patient endorsed to next shift for continuity of care.
[2019-02-24 07:21] LABS: ALANINE AMINOTRANSFERASE 12 IU/L (0-55); ALBUMIN 3.6 g/dL (3.5-5.0); ALBUMIN/GLOBULIN RATIO 1.3 (0.8-2.0); ALKALINE PHOSPHATASE 65 IU/L (40-150); ANION GAP 12.5 mmol/L (8-16); BLOOD UREA NITROGEN 5 mg/dL (7-26); BUN/CREATININE RATIO 9 (6-25); CALCIUM 9.3 mg/dL (8.4-10.2); CARBON DIOXIDE 25 mmol/L (22-29); CHLORIDE 105 mmol/L (98-107); CREATININE, SERUM 0.54 mg/dL (0.57-1.11); EST GLOMERULAR FILTRATION RATE > 60 ML/MIN (60-); GLUCOSE 106 mg/dL (74-118); POTASSIUM 3.5 mmol/L (3.5-5.1); SODIUM 139 mmol/L (136-145)
[2019-02-24] MEDS ORDERED: POTASSIUM CHLORIDE 20 MEQ TAB CR PO NR (09:30)
[2019-02-24 10:38] LABS: EOSINOPHILS % (MANUAL) 1 % (0-7); NEUTROPHILS % (MANUAL) 76 % (40-74)
[2019-02-24 10:39] LABS: LYMPHOCYTES % (MANUAL) 9 % (19-48); MONOCYTES % (MANUAL) 11 % (3.4-9.0); PLATELET ESTIMATE ADEQUATE; PLATELET MORPHOLOGY COMMENT NORMAL
[2019-02-24 10:40] LABS: NUCLEATED RED BLOOD CELLS 6; POLYCHROMASIA MODERATE
[2019-02-24 10:41] LABS: HYPOCHROMASIA MODERATE; MICROCYTOSIS MODERATE; OVALOCYTES FEW; TARGET CELLS FEW
[2019-02-24 10:42] LABS: RBC MORPHOLOGY COMMENT ABNORMAL
[2019-02-24 10:43] LABS: SCHISTOCYTES FEW
[2019-02-24 10:58] LABS: GIANT PLATELETS FEW; LARGE PLATELETS FEW
--- NOTE | 2019-02-24 11:21 | Progress Note ---
DATE: SUBJECTIVE: The patient reports pain. Apparently, she was only receiving the Dilaudid intermittent during the night. She received IV fluids and blood transfusion yesterday. Her tachycardia has improved. PHYSICAL EXAMINATION: VITAL SIGNS: T-max was 100.2 and the blood pressure is 104/56. The heart rate is now 96 and the saturation is 98% on 2 L. HEENT: Shows no facial swelling or erythema. CARDIAC: Reveals regular rate and rhythm with normal S1 and S2. There are no murmurs or rubs heard. LUNGS: Auscultation of lungs reveals clear breath sounds bilaterally. There is no wheezing. ABDOMEN: Soft, nontender. There is no rebound or guarding. EXTREMITIES: Shows no leg edema or calf tenderness. IMPRESSION: 1. Sickle cell anemia with acute crisis. 2. Pneumonia. 3. Hemolytic anemia. PLAN: 1. Continue pain control. 2. IV hydration. 3. Continue current antibiotics and consult ID. 4. Hematology consultation is still pending. Waylon Delarosa MD [facility] /[id number]
[2019-02-24] MEDS: AZITHROMYCIN 500MG/NS 250 ML 250 ML IV SCH (12:30)
[2019-02-24] MEDS: CEFTRIAXONE SOD 1 GM/NS 50 ML 50 ML IV SCH (12:30)
--- NOTE | 2019-02-24 18:45 | NUR ---
PT RESTING ON BED BED SIDE REPORT GIVEN TO ONCOMING NURSE
[2019-02-25] VITALS (7 sets, daily range): BP systolic 103–116; BP diastolic 55–61
[2019-02-25] MEDS: HYDROMORPHONE 2MG/ML 2 MG/ML ML IV PRN ×10 (01:50→23:51)
--- NOTE | 2019-02-25 03:24 | Consultation ---
DATE OF CONSULTATION: 02/23/2019 CONSULTING PHYSICIAN: Christiano Chavez MD, Hematology-Oncology service. REASON FOR CONSULTATION: Evaluation and management of the patient with sickle cell anemia. HISTORY OF PRESENT ILLNESS: Ms. Rangel is a very pleasant 23-year-old female with known history of sickle cell anemia, who usually follows up at [facility]. She presented with generalized pain and worsening anemia. She stated that she usually gets a sickle cell crisis once a month. Her baseline hemoglobin is around 8. She thinks it is a poison. Hematology-Oncology has been consulted to assist with the management. Presently, she is lying comfortably, not in acute distress, breathing normally. She is complaining of pain. PAST MEDICAL HISTORY: 1. Sickle cell anemia. 2. Chronic pain syndrome. PAST SURGICAL HISTORY: No prior surgeries. SOCIAL HISTORY: Denies history of smoking, alcohol use, or illicit drug use. She lives in [place], [place]. FAMILY HISTORY: Positive for sickle cell disease. REVIEW OF SYSTEMS: 14-point review of systems negative except as mentioned above in the history of present illness. PHYSICAL EXAMINATION: VITAL SIGNS: Reviewed as per electronic medical record. HEENT: PERRLA. Extraocular movement intact. Head atraumatic and normocephalic. NECK: Supple. CVS: S1 and S2 audible. RESPIRATORY: Decreased bilateral air entry. ABDOMEN: Soft, positive bowel sounds. EXTREMITIES: Negative edema. NEUROLOGIC: The patient is alert and awake. LABORATORY DATA: Reviewed and as per electronic medical record. ASSESSMENT AND PLAN: Ms. Rangel is a very pleasant 23-year-old young female with known history of sickle cell disease, who usually gets sickle cell crises once a month and has a baseline hemoglobin of around 8. She has been admitted due to sickle cell crisis. Hematology-Oncology has been consulted to assist with the management. I have reviewed the record as well as with the patient about her current disease and importance of further workup. At this point, recommendation would be to continue with IV hydration along with aggressive pain management. Daily labs including CBC, LDH, bilirubin need to be checked. We will closely monitor the patient and keep hemoglobin above 7.5. Thank you for the consult. I will continue to be available. Please call with any questions. MD [facility] /[id number]
[2019-02-25] MEDS: SODIUM CHLORIDE 0.45% 1,000 ML IV SCH (03:29)
[2019-02-25 06:08] LABS: BASOPHILS % 0.4 % (0.0-1.0); EOSINOPHILS # (AUTO) 0.1 (0.0-0.4); EOSINOPHILS % 1.2 % (0.0-6.0); HEMOGLOBIN 7.1 g/dL (12.0-16.0); LYMPHOCYTES # (AUTO) 1.5 (1.0-3.2); MEAN CORPUSCULAR HEMOGLOBIN 22.6 pg (28-32); MEAN CORPUSCULAR HGB CONC 31.3 g/dL (31-35); MEAN CORPUSCULAR VOLUME 72.3 fL (81-99); MONOCYTES # (AUTO) 1.5 (0.2-0.8); MONOCYTES % 14.1 % (4.4-11.3); NEUTROPHILS # (AUTO) 7.6 (2.1-6.9); NEUTROPHILS % 69.7 % (38.7-80.0); PLATELET COUNT 241 x10e3/uL (140-360); RED BLOOD COUNT 3.14 x10e6/uL (3.6-5.1); RED CELL DISTRIBUTION WIDTH 17.6 % (11.7-14.4)
[2019-02-25 06:18] LABS: HEMATOCRIT 22.7 % (34.2-44.1)
[2019-02-25 06:28] LABS: ALANINE AMINOTRANSFERASE 11 IU/L (0-55); ALBUMIN 3.4 g/dL (3.5-5.0); ALBUMIN/GLOBULIN RATIO 1.2 (0.8-2.0); ALKALINE PHOSPHATASE 63 IU/L (40-150); ANION GAP 10.7 mmol/L (8-16); BLOOD UREA NITROGEN < 5 mg/dL (7-26); CALCIUM 9.3 mg/dL (8.4-10.2); CARBON DIOXIDE 26 mmol/L (22-29); CHLORIDE 101 mmol/L (98-107); CREATININE, SERUM 0.53 mg/dL (0.57-1.11); EST GLOMERULAR FILTRATION RATE > 60 ML/MIN (60-); GLUCOSE 100 mg/dL (74-118); POTASSIUM 3.7 mmol/L (3.5-5.1); SODIUM 134 mmol/L (136-145)
--- NOTE | 2019-02-25 06:28 | NUR ---
paged dr haas for hemoglobin 7.1, awaiting call back.
[2019-02-25 06:32] LABS: BUN/CREATININE RATIO 9 (6-25)
[2019-02-25] MEDS: POTASSIUM CHLORIDE 20 MEQ TAB CR PO SCH (07:57)
[2019-02-25] MEDS ORDERED: SENNA-S TABLET PO PRN (08:30)
[2019-02-25] MEDS: SODIUM CHLORIDE 0.9% 1000ML 1,000 ML IV SCH ×2 (08:39→16:10)
[2019-02-25] MEDS ORDERED: PANTOPRAZOLE 40 MG 10ML VIAL IV SCH (09:00)
--- NOTE | 2019-02-25 10:44 | NUR ---
PT GIVEN SELF PAY PACKET OF INFORMATION TO FOLLOW UP IN COMMUNITY. SHE ASKED ABOUT TRANSPORTATION TO APPOINTMENTS, SHE STATES SHE SEES HER OWN TEAM AT [facility] FOR HER SICKLE CELL. STATES SHE HAS BEEN DENIED FOR SSI, GAVE RESOURCES FOR [employer] TO ASSIST WITH PROCESS FOR [employer]. SHE STATES SHE LIVES IN [place] SO GAVE INFORMATION FOR [employer], ALSO PROVIDED WITH OTHER RESOURCES AND GAVE INFORMATION ABOUT [facility] AND [facility]. PT WILL FOLLOW UP ON RESOURCES IN THE COMMUNITY.
[2019-02-25] MEDS: CEFTRIAXONE SOD 1 GM/NS 50 ML 50 ML IV SCH (12:22)
[2019-02-25] MEDS: ONDANSETRON HCL INJ 2MG/ML 2ML 2 MG/ML VIAL IV PRN (12:22)
[2019-02-25] MEDS: AZITHROMYCIN 500MG/NS 250 ML 250 ML IV SCH (13:02)
[2019-02-25] MEDS: MORPHINE SULFATE 30 MG TAB ER PO PRN (13:19)
--- NOTE | 2019-02-25 13:49 | NUR ---
Patient has called several times to state that PIV site is hurting because of the Azithromycin. Slowed the infusion twice and started infusion on separate pump to ease the pain. Patient states, "None of that is helping and i'm not havin my vein go bad when I already have bad veins. They usually infuse my medication in a midline and it's different." Stopped the infusion. Called Dr. Boyd.
[2019-02-25] MEDS ORDERED: ONDANSETRON HCL 4 MG ORAL DISINTEGRATING TAB PO PRN (15:30)
--- NOTE | 2019-02-25 17:42 | Consultation ---
DATE OF CONSULTATION: 02/25/2019 REASON FOR CONSULTATION: Fever and leukocytosis. Thank you Dr. Delarosa for asking me to see this patient. HISTORY OF PRESENT ILLNESS: The patient is a 23-year-old woman, who was admitted to the emergency department with bacterial pneumonia and sickle cell crisis referred for fever and leukocytosis. 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 The patient had been discharged from [facility] less than 24 hours earlier following admission for sickle cell crisis. The patient had plan to fill her discharge prescription the next day after returning home because she was cleaning her apartment. The patient reports a mild cough since admission and complains of lower ribs pain. She did not have a fever at home, but developed low-grade temperature yesterday and peripheral IV was changed. Fever has subsided this morning. In emergency department, she was noted to have temperature of 98.7 degrees Fahrenheit, pulse rate 101, respiratory rate 30, blood pressure 119/87, and oxygen saturation 100% on 3 L of oxygen by nasal cannula. Initial laboratory studies showed blood leukocyte count of 19,040 with 70% neutrophils, BUN less than 5, creatinine 0.58 and negative urine test. Chest x-ray showed patchy bilateral lower lung consolidations suggestive of acute chest syndrome or pneumonia. PAST MEDICAL HISTORY: Sickle cell disease, seizure, and chronic pain. PAST SURGICAL HISTORY: None. ALLERGIES: AUGMENTIN AND IODINATED CONTRAST BOTH ORAL AND IV. MEDICATIONS: The current antibiotic is ceftriaxone 1 g IV piggyback daily and azithromycin 500 mg IV piggyback daily. IMMUNIZATIONS: She has not received pneumococcal vaccine. FAMILY HISTORY: Noncontributory. SOCIAL HISTORY: No alcohol, tobacco, or recreational drug use. REVIEW OF SYSTEMS: As per history of present illness. PHYSICAL EXAMINATION: GENERAL: Acutely ill. VITAL SIGNS: T-max 100, pulse rate 102, respiratory rate 17, blood pressure 103/58, weight 143 pounds. HEENT: Normocephalic. There is no icterus or injection of conjunctivae. There is nasal discharge. Moist oral mucosa. Moist oral mucosa. No pharyngeal erythema or exudate. NECK: Supple. No JVD or meningismus. LUNGS: Decreased breath sounds in the bases. HEART: Normal S1 and S2. Regular. ABDOMEN: Soft with mild tenderness over lower ribs bilaterally. She has no hepatosplenomegaly. EXTREMITIES: There is no edema, clubbing, or cyanosis. SKIN: There is no acute erythema. GARMENT LOOPER: Awake, alert, and oriented to person, place, and time. Nonfocal. LABORATORY DIAGNOSTICS: WBC 10,850, hemoglobin 7.1, platelet 241,000, neutrophils 69.7, lymphocytes 14, monocytes 14.1, eosinophils 1.2, and basophils 0.4. BUN less than 5, creatinine 0.53, AST 15, ALT 11, alkaline phosphatase 63, total bilirubin 1.2. Blood culture showed no growth. Sputum culture is pending. IMPRESSION: 1. Leukocytosis, improved. 2. Probable acute chest syndrome, although pneumonia cannot be excluded. 3. Sickle cell crisis. PLAN: 1. IV hydration and pain control as prescribed. 2. The patient was offered pneumococcal vaccination, but she declined. MD ALESSANDRA Mayo/HUGH /[id number]
--- NOTE | 2019-02-25 19:25 | NUR ---
Patient received sitting up in bed. AAO x 4. No c/o pain . Respirations even and non-labored. Fall precautions implemented. Patient instructed to call for assistance when needed. Call light within reach.
[2019-02-26] VITALS (9 sets, daily range): BP systolic 101–111; BP diastolic 53–59
[2019-02-26] MEDS: SODIUM CHLORIDE 0.9% 1000ML 1,000 ML IV SCH ×2 (05:08→11:42)
[2019-02-26 05:09] LABS: BASOPHILS # (AUTO) 0.1 (0.0-0.1); BASOPHILS % 0.6 % (0.0-1.0); EOSINOPHILS # (AUTO) 0.2 (0.0-0.4); EOSINOPHILS % 1.9 % (0.0-6.0); HEMATOCRIT 23.4 % (34.2-44.1); HEMOGLOBIN 7.5 g/dL (12.0-16.0); LYMPHOCYTES # (AUTO) 1.4 (1.0-3.2); LYMPHOCYTES % 15.4 % (18.0-39.1); MEAN CORPUSCULAR HEMOGLOBIN 22.7 pg (28-32); MEAN CORPUSCULAR HGB CONC 32.1 g/dL (31-35); MEAN CORPUSCULAR VOLUME 70.7 fL (81-99); MONOCYTES % 11.5 % (4.4-11.3); NEUTROPHILS # (AUTO) 6.3 (2.1-6.9); NEUTROPHILS % 70.2 % (38.7-80.0); PLATELET COUNT 237 x10e3/uL (140-360); RED BLOOD COUNT 3.31 x10e6/uL (3.6-5.1); RED CELL DISTRIBUTION WIDTH 17.5 % (11.7-14.4)
[2019-02-26] MEDS: HYDROMORPHONE 2MG/ML 2 MG/ML ML IV PRN ×2 (05:21→10:12)
[2019-02-26] MEDS: PANTOPRAZOLE SOD 40 MG TABEC PO SCH (08:42)
[2019-02-26] MEDS: POTASSIUM CHLORIDE 20 MEQ TAB CR PO SCH (08:42)
--- NOTE | 2019-02-26 08:42 | NUR ---
Patient puts nasal cannula on when "I feel like my body needs it." I educated patient regarding the use of O2 and it being an actual drug that needs to be prescribed and that her O2 saturation is 97% on room air. Patient continued to insist.
[2019-02-26] MEDS: CEFTRIAXONE SOD 1 GM/NS 50 ML 50 ML IV SCH (11:42)
[2019-02-26] MEDS ORDERED: MULTI-VITAMIN1 EACH PO (13:03)
[2019-02-26] MEDS ORDERED: VITAMIN D1000 UNI1 PO (13:03)
[2019-02-26] MEDS ORDERED: NORCO 10-325 T1 EACH PO (13:03)
[2019-02-26] MEDS ORDERED: PANTOPRAZOLE SO40 MG PO (13:03)
[2019-02-26] MEDS ORDERED: MORPHINE SULFAT30 M2 PO (13:03)
[2019-02-26] MEDS ORDERED: ALPRAZOLAM0.5 MG PO (13:03)
[2019-02-26] MEDS ORDERED: ONDANSETRON2 MG/1 ML IV (13:03)
[2019-02-26] MEDS ORDERED: LEVETIRACETAM500 MG PO (13:03)
[2019-02-26] MEDS ORDERED: IBUPROFEN200 MG PO (13:03)
[2019-02-26] MEDS ORDERED: FOLIC ACID1 MG PO (13:03)
[2019-02-26] MEDS ORDERED: POLYETHYLENE GL17 GM PO (13:03)
[2019-02-26] MEDS ORDERED: HYDROXYZINE HCL25 MG PO (13:03)
[2019-02-26] MEDS ORDERED: GABAPENTIN300 MG PO (13:03)
[2019-02-26] MEDS ORDERED: MIRTAZAPINE15 MG PO (13:03)
[2019-02-26] MEDS ORDERED: DOCUSATE SODIU100 MG PO (13:03)
[2019-02-26] MEDS ORDERED: MORPHINE SULFATE ORAL SOLN 10 MG/5 ML UDC PO PRN (13:15)
[2019-02-26] MEDS ORDERED: CEFTRIAXONE SOD 1 GM/NS 50 ML 50 ML IV SCH (13:15)
[2019-02-26] MEDS ORDERED: MORPHINE SULFATE 2 MG/ML SYR 1ML IV PRN (13:15)
[2019-02-26] MEDS: MORPHINE SULFATE INJ 4 MG/ML INJ 1ML IV PRN ×2 (13:57→20:38)
--- NOTE | 2019-02-26 14:57 | Diagnostic Imaging Report ---
EXAM: US ABDOMEN COMPLETE INDICATION: Abdominal pain. COMPARISON: None TECHNIQUE: Transverse and longitudinal harp scale and color doppler sonographic images of the abdomen were obtained. FINDINGS: LIVER 17.3 cm in the right midclavicular line. Increased echogenicity of the liver with normal contour, no masses. SPLEEN 12.4 cm in maximum diameter. There is a 3.2 cm hypoechoic lesion in the spleen. GALLBLADDER Decompressed. There is gallbladder sludge and gallstones. No gallbladder wall thickening, distension, or pericholecystic fluid. Positive reported sonographic Fraga's sign. BILE DUCTS No intra nor extra-hepatic biliary dilation. Common bile duct measures 0.4 cm PANCREAS: Visualized portions are normal. RIGHT KIDNEY: 13.5 cm Echogenicity: Normal Collecting System: No hydronephrosis Stones: None Cyst/Mass: None LEFT KIDNEY: 10.8 cm Echogenicity: Normal Collecting System: No hydronephrosis Stones: None Cyst/Mass: None VESSELS: Aorta: Visualized portions are within normal size limits Inferior Vena Cava: Visualized portions are normal Main Portal Vein: 1.0 cm, normal size with hepatopetal flow. FREE FLUID: None IMPRESSION: Gallbladder sludge and cholelithiasis without evidence of wall thickening, pericholecystic fluid or hyperemia. Despite the positive sonographic Fraga sign, the imaging findings are not suggestive of cholecystitis. Suggest correlation with clinical exam. Follow-up ultrasound may be considered. Hepatomegaly with hepatic steatosis. Indeterminate 3.2 cm hypoechoic lesion within the spleen. Spleen protocol MRI is suggested for further evaluation. Signed by: Dr. Bhargavi Beckett MD on 02/26/2019 2:54 PM
--- NOTE | 2019-02-26 16:59 | Diagnostic Imaging Report ---
EXAM: CT Chest without contrast INDICATION: Rib pain. COMPARISON: None TECHNIQUE: Chest was scanned utilizing a multidetector helical scanner from the lung apex through the level of the adrenal glands without administration of IV contrast. Coronal and sagittal reformations were obtained. Routine protocol was performed. IV CONTRAST: 100 mL of Isovue 370. RADIATION DOSE: Total DLP: 408.3 mGy*cm Dose modulation, iterative reconstruction, and/or weight based adjustment of the mA/kV was utilized to reduce the radiation dose to as low as reasonably achievable. COMPLICATIONS: None FINDINGS: LINES/ TUBES: None. LUNGS AND AIRWAYS: Central airways are patent. Patchy groundglass and linear opacities dependently, most pronounced in the lower lobes and lingula. There is a small consolidative opacity in the left lower lobe with air bronchograms, as seen on series 3, image 61. PLEURA: The pleural spaces are clear. HEART AND MEDIASTINUM: The thyroid gland is normal. No mediastinal, hilar or axillary lymphadenopathy. The heart is normal in size.. There is no pericardial effusion. UPPER ABDOMEN: Limited non-contrast views of the upper abdomen. There is cholelithiasis without CT evidence of cholecystitis. There are ill-defined linear calcifications within the splenic parenchyma and the periphery of the spleen. BONES/SOFT TISSUES: There is a [place] log appearance of the vertebral bodies, consistent with history of sickle cell. There is diffuse osteopenia with heterogeneous bony appearance. No evidence of rib fracture. IMPRESSION: Patchy groundglass opacities with linear atelectasis in the dependent lower lungs. Small consolidative opacity within left lower lobe with air bronchograms. Findings may represent any combination of atelectasis, early acute chest syndrome and/or pneumonia. Calcifications within the spleen, which are likely secondary to sickle cell disease. Bony findings of sickle cell disease as above. Cholelithiasis without CT evidence of cholecystitis. Signed by: Dr. Bhargavi Beckett MD on 02/26/2019 4:55 PM
[2019-02-26] MEDS: MORPHINE SULFATE ORAL SOLN 10 MG/5 ML UDC PO PRN ×2 (17:40→23:40)
[2019-02-27] VITALS: BP 112/55
[2019-02-27] MEDS: MORPHINE SULFATE INJ 4 MG/ML INJ 1ML IV PRN (01:45)
[2019-02-27 04:00] VITALS: BP 105/52
--- NOTE | 2019-02-27 04:04 | Discharge Summary ---
ADMISSION: February 23, 2019 DISCHARGE: February 27, 2019 DISCHARGE DIAGNOSES: 1. Sickle cell anemia with acute crisis. 2.Cholelithiasis 3.Community acquired pneumonia CONSULTING PHYSICIANS: 1. Dr. Chavez of Hematology. 2. Dr. Stephon Boyd of Infectious Disease. 3. Dr Gabriel Li of Gastroenterology RADIOGRAPHIC DATA: 1. Chest x-ray shows basal opacities 2. Abdominal US shows cholelithiasis 3. CT of chest shows basilar infiltrate v atelectasis and cholelithiasis HISTORY OF PRESENT ILLNESS: The patient is a 23-year-old woman. She has a history of sickle cell anemia. She was recently discharged from [facility] with a sickle cell crisis and pain. She started to have recurrent pain in her chest and back. She came to the emergency department. HOSPITAL COURSE: The patient was admitted. She received IV hydration along with intravenous Dilaudid. She also received IV antibiotics. Her pain improved with this. She was subsequently switched to 4 pain medications and her medicines were gradually tapered. The patient also had a hemoglobin of 7.1. She received packed red blood cells. She was seen in consultation by Hematology. They recommended holding further transfusions unless the hemoglobin fell consistently below 7.5. ID also saw the patient and felt that her leukocytosis and changes on chest x-ray were most consistent with acute chest syndrome. She reported some upper abdominal pain and right lower thoracic pain. A CT of the chest showed some basilar opacities v atelectasis. US showed cholelithiasis with no evidence of acute cholecystitis. GI evaluated the patient and recommended no additional interventions. DISPOSITION: The patient felt much better at the time of discharge. She will follow up with her sickle cell team at the [facility]. Her outpatient pain medications will be monitored and administered through the sickle cell team and pain management at [facility]. MD ALEXA Chua/HUGH /[id number]
--- NOTE | 2019-02-27 07:00 | NUR ---
Rcd pt at bed pt is alert and oriented pt resting on bed no signs of any distress noted iv patent bed low and locked call light in reach
[2019-02-27] MEDS: PANTOPRAZOLE SOD 40 MG TABEC PO SCH (07:30)
[2019-02-27] MEDS ORDERED: MORPHINE SULFATE ORAL SOLN 10 MG/5 ML UDC PO PRN ×2 (08:45→09:00)
[2019-02-27] MEDS: POTASSIUM CHLORIDE 20 MEQ TAB CR PO SCH (09:00)
[2019-02-27] MEDS ORDERED: MORPHINE SULFATE INJ 4 MG/ML INJ 1ML IV PRN (09:15)
--- NOTE | 2019-02-27 09:38 | NUR ---
PT REFUSED BLOOD DRAW THIS MORNING NOTIFIED DR VU WHEN HE CAME TO SEE THE PT HE SAID ITS OK
[2019-02-27 09:40] VITALS: BP 99/55
--- NOTE | 2019-02-27 10:23 | NUR ---
PT REQUESTED TO GO HOME PAGED AND NOTIFIED DR BAY GOT THE ORDER TO DISCHARGE
[2019-02-27 10:35] VITALS: BP 99/55
--- NOTE | 2019-02-27 11:15 | NUR ---
PT WENT HOME IN SAFE CONDITION WITH HER COUSIN
--- NOTE | 2019-02-27 15:27 | Consultation ---
DATE OF CONSULTATION: 02/27/2019 HISTORY OF PRESENT ILLNESS: This is a 23-year-old who has a history of sickle cell disease, initially presented to the hospital because of problems with worsening anemia. Apparently, complains of abdominal pain. Pain mainly in the periumbilical right upper quadrant area. The patient denies any nausea or vomiting along with this problem. Her workup so far revealed that she has a CT of the chest, which shows gallstones cause precancerous spleen as well as pneumonia. She also had an abdominal ultrasound, which shows fatty liver, gallstone, and gallbladder sludge. She is anemic with hemoglobin about 7.5. Her white count was elevated on admission, but it is back to normal. PAST MEDICAL HISTORY: Significant for history of sickle cell disease. ALLERGIES: NONE. SOCIAL HISTORY: No alcohol use. FAMILY HISTORY: Noncontributory. REVIEW OF SYSTEMS: Otherwise unremarkable. PHYSICAL EXAMINATION: GENERAL: The patient is awake, lying in bed, appears to be stable, not in acute distress at this point. VITAL SIGNS: Afebrile currently. HEAD, EYES, EARS, NOSE, AND THROAT: Normocephalic, atraumatic. Sclerae anicteric. NECK: Supple. HEART: Regular. ABDOMEN: Soft. There is some tenderness. There is no rebound or mass. EXTREMITIES: Demonstrates no clubbing or cyanosis. LABORATORY VALUES: WBC is 9.03, hemoglobin of 7.5 yesterday, hematocrit of 33.4, and MCV of 70.7. The chemistry was normal. Ultrasound as mentioned before. IMPRESSION: 1. Abdominal pain, possibly related to gallstones. 2. Sickle cell disease. 3. Pneumonia. RECOMMENDATION: Continue current care at this point. The patient may benefit from cholecystectomy if the pain persists. At this point, there is no sign of acute cholecystitis. MD SAWYER CrawfordD/MODL /[id number] cc: Waylon Delarosa MD
== END 2019-02-27 11:15 | disposition home or self-care (01) | DRG 811 ==
LOC: ER 09:51 → ERHOLD 12:39 → MED/SURG2 13:33
PROVIDERS: ADMIT Internal Medicine Critical Care Medicine; ATTEND Internal Medicine Critical Care Medicine
PROC: 30233N1 Transfusion of Nonautologous Red Blood Cells into Peripheral Vein, Percutaneous Approach (ICD-10-PCS; principal; 2019-02-23)
DX: D57.01 Hb-SS disease with acute chest syndrome (principal); J18.9 Pneumonia, unspecified organism; K80.80 Other cholelithiasis without obstruction; K76.0 Fatty (change of) liver, not elsewhere classified; D73.9 Disease of spleen, unspecified; D58.9 Hereditary hemolytic anemia, unspecified
CPT/HCPCS: 36415; 71045; 71250; 76700; 80053; 81001; 82550; 82553; 83605; 83735; 84484; 84702; 85025; 85045; 85610; 85730; 86850; 86900; 86920; 87040; 87070; 87086; 87205; 99284; J0456; J0696; J2270; J2405; J7030; J7050; P9016

== ENCOUNTER 2019-03-11 17:11 | Observation (INO) | payer OTHER ==
[~2019-03-11] VITALS: Ht 162.6 cm; Wt 59.0 kg
[~2019-03-11 17:11] MED LIST: ALPRAZOLAM0.5 MG PO; DOCUSATE SODIU100 MG PO; FOLIC ACID1 MG PO; GABAPENTIN300 MG PO; HYDROXYZINE HCL25 MG PO; IBUPROFEN200 MG PO; LEVETIRACETAM500 MG PO; MIRTAZAPINE15 MG PO; MORPHINE SULFAT30 M2 PO; MULTI-VITAMIN1 EACH PO; NORCO 10-325 T1 EACH PO; ONDANSETRON2 MG/1 ML IV; PANTOPRAZOLE SO40 MG PO; POLYETHYLENE GL17 GM PO; VITAMIN D1000 UNI1 PO
--- OUTSIDE RECORDS SUMMARY | 2019-03-11 17:20 | XMS REPORT | Continuity of Care Document ---
Author Author [facility] Interface Address Unknown Phone Unavailable Problems Problem Status Onset Date Classification Date Reported Comments Source Sickle-cell thalassemia with crisis, unspecified 06/05/2018 12/11/2018 [facility] Hb-SS disease with crisis, unspecified 05/26/2018 12/05/2018 [facility] SICKLE CELL CRISIS Active 05/18/2018 [facility] SICKLE CELL Active 05/14/2018 [facility] SICKLE CELL PAIN CRISIS/PNEUMONIA Active 05/14/2018 [facility] SICKLE CELL CRISIS/PAIN Active 05/06/2018 [facility] Pain, unspecified 11/11/2017 02/11/2018 [facility] Whole body pain 11/05/2017 02/11/2018 [facility] POSS. SICKLE CELL CRISIS Active 07/14/2017 [facility] SICKEL CELL Active 07/08/2017 [facility] SICKEL CELL CRISIS Active 07/08/2017 [facility] ACUTE SICKLE CELL CRISIS Active 06/30/2017 [facility] SICKLE-CELL/HB-C DISEASE WITH CRISIS, UN Active 05/26/2017 [facility] Anxiety disorder, unspecified Active Problem 12/11/2018 [facility] Cardiomegaly Active Problem 12/11/2018 [facility] Sickle cell crisis Active Problem 12/11/2018 [facility] Depression Active Problem 12/11/2018 [facility] Anxiety and depression Resolved Problem 12/11/2018 [facility] Pneumonia, unspecified organism 12/11/2018 [facility] Atelectasis 12/11/2018 [facility] Major depressive disorder, single episode, unspecified 12/11/2018 [facility] Anxiety disorder, unspecified 12/11/2018 [facility] Epilepsy, unspecified, not intractable, without status epilepticus 12/11/2018 [facility] Drug induced constipation 12/11/2018 [facility] Adverse effect of other opioids, initial encounter 12/11/2018 [facility] Other mcc drug therapy 12/11/2018 [facility] Other specified congenital malformations of heart 12/11/2018 [facility] Other specified disorders of brain 12/11/2018 [facility] Other abnormalities of breathing 12/11/2018 [facility] Sleep disorder, unspecified 12/11/2018 [facility] 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 12/11/2018 [facility] Sickle cell disease Active Problem 12/11/2018 [facility] Systemic inflammatory response syndrome of non-infectious origin without acute organ dysfunction 02/09/2018 [facility] Amenorrhea, unspecified 02/09/2018 [facility] Hypokalemia 02/09/2018 [facility] Other amnesia 02/09/2018 [facility] Unspecified hemorrhoids 02/09/2018 [facility] Anemia, unspecified 02/09/2018 [facility] Constipation, unspecified 02/09/2018 [facility] Elevated white blood cell count, unspecified 11/26/2018 [facility] Cardiomegaly 12/05/2018 [facility] Other specified abnormal findings of blood chemistry 12/05/2018 [facility] Iron deficiency anemia, unspecified 12/05/2018 [facility] HB-SS DISEASE WITH CRISIS, UNSPECIFIED Active [facility] SICKLE-CELL/HB-C DISEASE WITH CRISIS, UN Active [facility] PNEUMONIA, UNSPECIFIED ORGANISM Active [facility] Medications Medication Details Route Status Patient Instructions Ordering Provider Order Date Source Zofran 4 mg, 1 tab, Route: PO, Drug form: TAB, Q6H, Dosing Weight 56.818, kg, PRN Nausea, Start date: 05/23/18 15:08:00 CDT, Duration: 30 day, Stop date: 06/22/18 15:07:00 CDTNotes: (Same as: Zofran) No Longer Active 05/23/2018 [facility] morphine Sulfate 30 mg, 1 tab, Route: PO, Drug form: ERTAB, Q12H, Dosing Weight 56.818, kg, Start date: 05/23/18 13:00:00 CDT, Duration: 30 day, Stop date: 06/22/18 9:00:00 CDTNotes: Do not crush (Same as:Oramorph SR, MS Contin) No Longer Active 05/23/2018 [facility] morphine 15 mg oral tablet, immediate release 15 mg, 1 tab, Route: PO, Drug form: TAB, Q4H, Dosing Weight 56.818, kg, PRN Pain Score 7- 10, Start date: 05/23/18 9:18:00 CDT, Duration: 30 day, Stop date: 06/22/18 9:17:00 CDTNotes: (Same as:MORPhine Sulfate) No Longer Active 05/23/2018 [facility] morphine 15 mg oral tablet, immediate release 15 mg, 1 tab, Route: PO, Drug form: TAB, Q4H, Dosing Weight 56.818, kg, Start date: 05/22/18 20:00:00 CDT, Duration: 30 day, Stop date: 06/21/18 16:00:00 CDTNotes: (Same as:MORPhine Sulfate) No Longer Active 05/23/2018 [facility] Acetaminophen 325 MG / Hydrocodone Bitartrate 10 MG Oral Tablet [[place] 10/325] 1 tab, Route: PO, Drug Form: TAB, Dosing Weight 56.818, kg, Q6H, PRN Pain Score 4-6, Start date: 05/22/18 17:38:00 CDT, Duration: 30 day, Stop date: 06/21/18 17:37:00 CDTNotes: Do not exceed 4gm/day of acetaminophen. (Same as: [place] 325/10) No Longer Active 05/22/2018 [facility] Melatonin 1 mg, 1 mL, Route: PO, Drug form: LIQ, ONCE, Dosing Weight 56.818, kg, Start date: 05/21/18 23:43:00 CDT, Stop date: 05/21/18 23:43:00 CDT No Longer Active 05/22/2018 [facility] Levofloxacin 750 mg, 1 tab, Route: PO, Drug form: TAB, ONCE, Dosing Weight 56.818, kg, Start date: 05/21/18 23:30:00 CDT, Stop date: 05/21/18 23:30:00 CDT, ABX Indication: PneumoniaNotes: Do not give w/antacids, dairy pdt & minerals Take 1 hr before or 2 hr after dairy products Inactive 05/22/2018 [facility] Lovenox 40 mg, 0.4 mL, Route: SUB-Q, Drug form: INJ, [id number], Dosing Weight 56.818, kg, Start date: 05/21/18 17:00:00 CDT, Duration: 30 day, Stop date: 06/19/18 17:00:00 CDTNotes: (Same as: Lovenox) No Longer Active 05/21/2018 [facility] D5W 1/2NS 1,000 mL 1,000 mL, Rate: 75 ml/hr, Infuse over: 13.3 hr, Route: IV, Dosing Weight 56.818 kg, Total Volume: 1,000, Start date: 05/21/18 9:36:00 CDT, Duration: 30 day, Stop date: 06/20/18 9:35:00 CDT, 1.61, m2 No Longer Active 05/21/2018 [facility] Morphine 30 mg, 30 mL, Route: IV, Initial Loading Dose: 2 mg, [employer]ER Dose: 1 mg, [employer] WORKER Lockout: 15 minutes, Continuous Basal Rate: 1 mg, 4 Hour Limit (In MG): 16, Drug Form: INJ, Continuous, Start date: 05/21/18 9:35:00 CDT, Duration: 30 day, Stop date: 06/20/18 9...Notes: Dose: Delay: Basal rate: 4hr limit: (Same as:Cristin-Kelly) No Longer Active 05/21/2018 [facility] 1/2 NS 1,000 mL 1,000 mL, Rate: 75 ml/hr, Infuse over: 13.3 hr, Route: IV, Dosing Weight 56.818 kg, Total Volume: 1,000, Start date: 05/20/18 7:16:00 CDT, Duration: 30 day, Stop date: 06/19/18 7:15:00 CDT, 1.61, m2 No Longer Active 05/20/2018 [facility] Levofloxacin 750 mg, 1 tab, Route: PO, Drug form: TAB, [id number], Dosing Weight 56.818, kg, Start date: 05/19/18 23:00:00 CDT, Duration: 30 day, Stop date: 06/17/18 23:00:00 CDT, ABX Indication: PneumoniaNotes: Do not give w/antacids, dairy pdt & minerals Take 1 hr before or 2 hr after dairy products No Longer Active 05/20/2018 [facility] Miralax 17 gm, 1 pkt, Route: PO, Drug form: PWDR, Daily, Dosing Weight 56.818, kg, Start date: 05/19/18 21:18:00 CDT, Duration: 30 day, Stop date: 06/18/18 9:00:00 CDTNotes: Dissolve in 8 oz of water or juice. (Same as: Miralax) No Longer Active 05/20/2018 [facility] Mirtazapine 30 mg, 1 tab, Route: PO, Drug form: TAB, Bedtime, Dosing Weight 56.818, kg, Start date: 05/19/18 21:00:00 CDT, Duration: 30 day, Stop date: 06/17/18 21:00:00 CDTNotes: (Same as:Remeron) No Longer Active 05/20/2018 [facility] Morphine 30 mg, 30 mL, Route: IV, Initial Loading Dose: 2 mg, [employer] WORKER Dose: 1 mg, [employer] WORKER Lockout: 10 minutes, Continuous Basal Rate: 1 mg, 4 Hour Limit (In MG): 30, Drug Form: INJ, Continuous, Start date: 05/19/18 15: 16:00 CDT, Duration: 30 day, Stop date: 06/18/18...Notes: Dose: Delay: Basal rate: 4hr limit: (Same as:Cristin-Kelly) No Longer Active 05/19/2018 [facility] Miralax 17 gm, 1 pkt, Route: PO, Drug form: PWDR, Daily, Dosing Weight 65.966, kg, Start date: 05/19/18 15:00:00 CDT, Duration: 30 day, Stop date: 06/18/18 9:00:00 CDTNotes: Dissolve in 8 oz of water or juice. (Same as: Miralax) No Longer Active 05/19/2018 [facility] Morphine 30 mg, 30 mL, Route: IV, Initial Loading Dose: 2 mg, [employer] WORKER Dose: 1 mg, [employer]APE[employer] WORKER Lockout: 10 minutes, Continuous Basal Rate: 1 mg, 4 Hour Limit (In MG): 22, Drug Form: INJ, Continuous, Start date: 05/19/18 14: 22:00 CDT, Duration: 30 day, Stop date: 06/18/18...Notes: Dose: Delay: Basal rate: 4hr limit: (Same as:Berna) Inactive 05/19/2018 [facility] Naloxone 0.04 mg, 0.1 mL, Route: IVP, Drug form: INJ, Q2MIN, Dosing Weight 56.818, kg, PRN Narcotic Reversal, Start date: 05/19/18 14:22:00 CDT, Duration: 30 day, Stop date: 06/18/18 14:21:00 CDTNotes: Same as Narcan No Longer Active 05/19/2018 [facility] Acetaminophen 325 MG / Hydrocodone Bitartrate 10 MG Oral Tablet [[place] 10/325] 1 tab, Route: PO, Drug Form: TAB, Dosing Weight 56.818, kg, Q4H, PRN Pain Score 1-3, Start date: 05/19/18 14:20:00 CDT, Duration: 30 day, Stop date: 06/18/18 14:19:00 CDTNotes: Do not exceed 4gm/day of acetaminophen. (Same as: [place] 325/10) No Longer Active 05/19/2018 [facility] Docusate Sodium 50 MG / sennosides, SNF 8.6 MG Oral Tablet 1 tab, Route: PO, Drug Form: TAB, Dosing Weight 56.818, kg, Daily, Start date: 05/19/18 9:00:00 CDT, Duration: 30 day, Stop date: 06/17/18 9:00:00 CDT No Longer Active 05/19/2018 [facility] Docusate 100 mg, Route: PO, BID, Dosing Weight 56.818, kg, Start date: 05/19/18 9:00:00 CDT, Duration: 30 day, Stop date: 06/17/18 17:00:00 CDT No Longer Active 05/19/2018 [facility] Folic Acid 1 mg, 1 tab, Route: PO, Drug form: TAB, Daily, Dosing Weight 56.818, kg, Start date: 05/19/18 9:00:00 CDT, Duration: 30 day, Stop date: 06/17/18 9:00:00 CDTNotes: (Same as: Folvite) No Longer Active 05/19/2018 [facility] Levetiracetam 500 MG Oral Tablet [Keppra] 500 mg, 1 tab, Route: PO, Drug form: TAB, BID, Dosing Weight 56.818, kg, Start date: 05/19/18 9:00:00 CDT, Duration: 30 day, Stop date: 06/17/18 17:00:00 CDTNotes: (Same as:Keppra) No Longer Active 05/19/2018 [facility] Ketorolac 15 mg, 1 mL, Route: IV, Drug form: INJ, Q6H, Dosing Weight 56.818, kg, Start date: 05/19/18 0:18:00 CDT, Duration: 4 day, Stop date: 05/23/18 0:00:00 CDTNotes: (Same as:Toradol) IV bolus must be given >15 seconds. Give IM administration slowly and deeply into the muscle. Not for use > 4 days. No Longer Active 05/19/2018 [facility] Levofloxacin 750 mg, 150 mL, Route: IVPB, Drug form: SOLN, [id number], Dosing Weight 56.818, kg, Start date: 05/19/18 0:01:00 CDT, Duration: 30 day, Stop date: 06/17/18 0:01:00 CDT, ABX Indication: PneumoniaNotes: (Same as:Levaquin) Inactive 05/19/2018 [facility] Morphine Sulfate 15 MG Oral Tablet 15 mg, 1 tab, Route: PO, Drug form: TAB, Q6H, Dosing Weight 56.818, kg, Start date: 05/19/18 0:00:00 CDT, Duration: 30 day, Stop date: 06/17/18 18:00:00 CDTNotes: (Same as:MORPhine Sulfate) Inactive 05/19/2018 [facility] Morphine 2 mg, 0.5 mL, Route: IV, Drug form: SOLN, Q3H, Dosing Weight 56.818, kg, PRN Pain Score 7-10, Start date: 05/18/18 23:00:00 CDT, Duration: 30 day, Stop date: 06/17/18 20:00:00 CDTNotes: (Same as:MORPhine Sulfate) No Longer Active 05/19/2018 [facility] MS Contin 30 mg, 1 tab, Route: PO, Drug form: ERTAB, Q24H, Dosing Weight 56.818, kg, Start date: 05/18/18 22:00:00 CDT, Duration: 30 day, Stop date: 06/16/18 22:00:00 CDTNotes: Do not crush (Same as:Oramorph SR, MS Contin) No Longer Active 05/19/2018 [facility] normal saline 0.9% IV 1,000 mL 1,000 mL, Rate: 75 ml/hr, Infuse over: 13.3 hr, Route: IV, Dosing Weight 56.818 kg, Total Volume: 1,000, Start date: 05/18/18 21:21:00 CDT, Duration: 30 day, Stop date: 06/17/18 21:20:00 CDT, 1.61, m2 No Longer Active 05/19/2018 [facility] Albuterol 0.833 MG/ML / Ipratropium Wheeler 0.167 MG/ML Inhalant Solution [DuoNeb] 3 mL, Route: NEB, Drug Form: SOLN, Dosing Weight 56.818, kg, PRN, PRN as needed for shortness of breath or wheezing, Start date: 05/18/18 21:08:00 CDT, Duration: 30 day, Stop date: 06/17/18 21:07:00 CDTNotes: (Same as: Duoneb) No Longer Active 05/19/2018 [facility] Docusate Sodium 50 MG / sennosides, SNF 8.6 MG Oral Tablet 1 tab, Route: PO, Drug Form: TAB, Dosing Weight 56.818, kg, Daily, Start date: 05/18/18 20:53:00 CDT, Duration: 30 day, Stop date: 06/17/18 9:00:00 CDTNotes: (Same as Senokot-S) Equiv. to Nasima-Colace. No Longer Active 05/19/2018 [facility] Ondansetron 4 mg, 2 mL, Route: IVP, Drug form: INJ, Q6H, Dosing Weight 56.818, kg, PRN Nausea & Vomiting, Start date: 05/18/18 20:19:00 CDT, Duration: 30 day, Stop date: 06/17/18 20:18:00 CDTNotes: (Same as: Juan) MEDICATION WASTE Product Size: 4 mg Product Wasted: ___ mg No Longer Active 05/19/2018 [facility] ketOROLAC 15 mg/mL injectable solution 15 mg=1 mL, IVP, Q6H, PRN Pain Score 4-6, 0 Refill(s) No Longer Active 05/18/2018 [facility] diphenhydrAMINE 25 mg oral tablet 12.5 mg=0.5 tab, PO, TID, PRN Itching, 0 Refill(s) Active 05/18/2018 [facility] cetirizine 5 mg oral tablet 10 mg=2 tab, PO, Daily, PRN Allergies, 0 Refill(s) Active 05/18/2018 [facility] Albuterol 0.833 MG/ML / Ipratropium Wheeler 0.167 MG/ML Inhalant Solution [DuoNeb] 3 mL, NEB, PRN, PRN Respiratory Pathway, 0 Refill(s) No Longer Active 05/18/2018 [facility] Acetaminophen 325 MG / Hydrocodone Bitartrate 5 MG Oral Tablet 1 tab, PO, Q4H, PRN Pain Score 4-6, 0 Refill(s) Active 05/18/2018 [facility] Sodium Chloride 0.154 MEQ/ML Inhalant Solution 0.09 gm=10 mL, IVP, PRN, PRN Line Flush, 0 Refill(s) No Longer Active 05/18/2018 [facility] ondansetron 2 mg/mL injectable solution 4 mg=2 mL, IVP, Q8H, PRN Nausea & Vomiting, 0 Refill(s) No Longer Active 05/18/2018 [facility] lactobacillus rhamnosus GG PO, BID, 0 Refill(s) Active 05/18/2018 [facility] levofloxacin 750 mg/150 mL intravenous solution 750 nn=838 mL, IVPB, [id number], 0 Refill(s) No Longer Active 05/18/2018 [facility] Levofloxacin 750 MG Oral Tablet [Levaquin] 750 mg=1 tab, PO, Daily, X 4 day, # 4 tab, 0 Refill(s), Pharmacy: [facility] [id number] Inactive 05/18/2018 [facility] Docusate Sodium 100 MG Oral Capsule 100 mg=1 cap, PO, BID, PRN Constipation, # 14 cap, 0 Refill(s), Pharmacy: [facility] [id number] Active 05/18/2018 [facility] polyethylene glycol 3350 oral powder for reconstitution 17 gm, PO, Daily, # 255 gm, 0 Refill(s), Pharmacy: [facility] [id number] Inactive 05/18/2018 [facility] Miralax 17 gm, 1 pkt, Route: PO, Drug form: PWDR, Daily, Dosing Weight 65.966, kg, Start date: 05/18/18 14:00:00 CDT, Duration: 30 day, Stop date: 06/17/18 9:00:00 CDTNotes: Dissolve in 8 oz of water or juice. (Same as: Miralax) Inactive 05/18/2018 [facility] Levaquin 750 mg, 150 mL, Route: IVPB, Drug form: SOLN, [id number], Dosing Weight 65.966, kg, Start date: 05/18/18 0:00:00 CDT, Duration: 7 day, Stop date: 05/24/18 0:00:00 CDT, ABX Indication: PneumoniaNotes: (Same as:Levaquin) Inactive 05/18/2018 [facility] vancomycin + Dextrose 5% in Water IV 250 mL 1,000 mg, Route: IVPB, [id number], Start date: 05/17/18 19:00:00 CDT, Duration: 5 day, Stop date: 05/22/18 11:00:00 CDT, ABX Indication: PneumoniaNotes: TIME CRITICAL MEDICATION (Same As: Vancocin) Infusion rate 2001 mg: infuse over 2.5 hours For adult patients only: Round to nearest 250 mg per Medical Staff approval MEDICATION WASTE Product Size: 1000 mg Product Wasted: ___ mg Inactive 05/18/2018 [facility] *ATTN RN please do not admin vanc dose until trough drawn* *ATTN RN please do not admin vanc dose until trough drawn*, ATTN RN, Drug form: MISC, Route: MISC, ONCE, 05/17/18 15:30:00 CDT, Stop date: 05/17/18 15:30:00 CDT Inactive 05/17/2018 [facility] Benadryl 12.5 mg, 0.5 tab, Route: PO, Drug form: TAB, TID, Dosing Weight 65.966, kg, PRN Itching, Start date: 05/17/18 14:17:00 CDT, Duration: 30 day, Stop date: 06/16/18 14:16:00 CDT No Longer Active 05/17/2018 [facility] Morphine 30 mg, 30 mL, Route: IV, Initial Loading Dose: 2 mg, [employer] WORKER Dose: 1.5 mg, [employer] WORKER Lockout: 10 minutes, Continuous Basal Rate: 0 mg, 4 Hour Limit (In MG): 30, Drug Form: INJ, Continuous, Start date: 05/16/18 2 2:47:00 CDT, Duration: 30 day, Stop date: ...Notes: Dose: Delay: Basal rate: 4hr limit: (Same as:Monsei-Ject) No Longer Active 05/17/2018 [facility] multivitamin with minerals Multiple Vitamins with Zinc oral capsule 2 cap, PO, Daily, # 60 cap, 0 Refill(s) Active 05/17/2018 [facility] Vancomycin 1 ea, Route: MISC, ONCALL, Dosing Weight 65.966, kg, Start date: 05/16/18 16:00:00 CDT, Duration: 14 day, Stop date: 05/30/18 15:59:00 CDT, Pharmacy to dose, ABX Indication: Pneumonia Inactive 05/16/2018 [facility] 1/2 NS 1,000 mL 1,000 mL, Rate: 100 ml/hr, Infuse over: 10 hr, Route: IV, Dosing Weight 65.966 kg, Total Volume: 1,000, Start date: 05/16/18 15:47:00 CDT, Duration: 30 day, Stop date: 06/15/18 15:46:00 CDT, 1.74, m2 No Longer Active 05/16/2018 [facility] Albuterol 0.833 MG/ML / Ipratropium Wheeler 0.167 MG/ML Inhalant Solution [DuoNeb] 3 ml, Route: NEB, Drug Form: SOLN, Dosing Weight 65.966, kg, PRN, PRN Respiratory Pathway, Start date: 05/16/18 15:44:00 CDT, Duration: 30 day, Stop date: 06/15/18 15:43:00 CDTNotes: (Same as: Duoneb) No Longer Active 05/16/2018 [facility] *ATTN RN please do not admin vanc dose until trough drawn* *ATTN RN please do not admin vanc dose until trough drawn*, ATTN RN, Drug form: MISC, Route: MISC, ONCE, 05/16/18 12:00:00 CDT, Stop date: 05/16/18 12:00:00 CDT Inactive 05/16/2018 [facility] ketOROLAC 15 mg/mL injectable solution 15 mg, 1 mL, Route: IVP, Drug form: INJ, Q6H, Dosing Weight 65.966, kg, PRN Pain Score 4-6, Start date: 05/15/18 21:56:00 CDT, Duration: 4 day, Stop date: 05/19/18 21:55:00 CDTNotes: (Same as:Toradol) IV bolus must be given >15 seconds. Give IM administration slowly and deeply into the muscle. Not for use > 4 days. No Longer Active 05/16/2018 [facility] Mirtazapine 30 mg, 2 tab, Route: PO, Drug form: TAB, Bedtime, Dosing Weight 65.966, kg, Start date: 05/15/18 21:00:00 CDT, Duration: 30 day, Stop date: 06/13/18 21:00:00 CDTNotes: (Same as:Remeron) No Longer Active 05/16/2018 [facility] vancomycin + Dextrose 5% in Water IV 250 mL 1,000 mg, Route: IVPB, [id number], Dosing Weight 56.818, kg, Start date: 05/15/18 14:30:00 CDT, Duration: 7 day, Stop date: 05/22/18 4:30:00 CDT, ABX Indication: PneumoniaNotes: TIME CRITICAL MEDICATION (Same As: Vancocin) Infusion rate 2001 mg: infuse over 2.5 hours For adult patients only: Round to nearest 250 mg per Medical Staff approval MEDICATION WASTE Product Size: 1000 mg Product Wasted: ___ mg No Longer Active 05/15/2018 [facility] 200 ACTUAT Albuterol 0.09 MG/ACTUAT Metered Dose Inhaler [Proventil] 2 puff, Route: INHALATION, Drug Form: AERO/A, Dosing Weight 65.966, kg, Q4H, Start date: 05/15/18 12:00:00 CDT, Duration: 30 day, Stop date: 06/14/18 8:00:00 CDTNotes: Albuterol 90 microgram/inh 8gm HFA WASTE: Aerosol - Return to Pharmacy Same as: [facility] Proventil No Longer Active 05/15/2018 [facility] Levetiracetam 500 MG Oral Tablet [Keppra] 500 mg, 1 tab, Route: PO, Drug form: TAB, BID, Dosing Weight 65.966, kg, Start date: 05/15/18 9:00:00 CDT, Duration: 30 day, Stop date: 06/13/18 21:00:00 CDTNotes: (Same as:Keppra) No Longer Active 05/15/2018 [facility] Folic Acid 1 mg, 1 tab, Route: PO, Drug form: TAB, Daily, Dosing Weight 65.966, kg, Start date: 05/15/18 9:00:00 CDT, Duration: 30 day, Stop date: 06/13/18 9:00:00 CDTNotes: (Same as: Folvite) No Longer Active 05/15/2018 [facility] lactobacillus rhamnosus GG 1 cap, Route: PO, Drug Form: CAP, BID, Start date: 05/15/18 9:00:00 CDT, Duration: 30 day, Stop date: 06/13/18 17:00:00 CDTNotes: Same as Culturelle No Longer Active 05/15/2018 [facility] lactobacillus acidophilus 1 tab, Route: PO, Drug Form: TAB, Dosing Weight 65.966, kg, BID, Start date: 05/15/18 9:00:00 CDT, Duration: 30 day, Stop date: 06/13/18 17:00:00 CDT Inactive 05/15/2018 [facility] cetirizine 10 mg, 2 tab, Route: PO, Drug form: TAB, Daily, PRN Allergies, Start date: 05/15/18 8:32:00 CDT, Duration: 30 day, Stop date: 06/14/18 8:31:00 CDTNotes: (Same As: Zyrtec) No Longer Active 05/15/2018 [facility] Loratadine 10 mg, Route: PO, Drug form: TAB, PRN, Dosing Weight 65.966, kg, PRN as needed for allergy symptoms, Start date: 05/15/18 8:24:00 CDT, Duration: 30 day, Stop date: 06/14/18 8:23:00 CDT Inactive 05/15/2018 [facility] Doxycycline 100 mg, PO, BID, 0 Refill(s) No Longer Active 05/15/2018 [facility] Streptococcus pneumoniae serotype 1 capsular antigen diphtheria [id number] protein conjugate vaccine / Streptococcus pneumoniae serotype 14 capsular antigen diphtheria [id number] protein conjugate vaccine / Streptococcus pneumoniae serotype 18C capsular antigen d 0.5 mL, Route: IM, Drug Form: INJ, ONCALL, Start date: 05/15/18 3:16:42 CDT, Stop date: 06/14/18 3:11:42 CDTNotes: Shake well prior to use (Same as: Prevnar 13) No Longer Active 05/15/2018 [facility] cefepime 2 gm, Route: IVPB, [id number], Dosing Weight 56.818, kg, (CrCl >/=50 ml/min, CARGO AND CONTAINER INSPECTOR infection or neutropenic fever), Start date: 05/15/18 2:00:00 CDT, Duration: 7 day, Stop date: 05/22/18 1:00:00 CDT, ABX Indication: PneumoniaNotes: (Same as: Maxipime) MEDICATION WASTE Product Size: 2000 mg Product Wasted: ___ mg No Longer Active 05/15/2018 [facility] Vancomycin 1,000 mg, Route: IVPB, ACEQ15Y, Dosing Weight 56.818, kg, Start date: 05/15/18 2:00:00 CDT, Duration: 7 day, Stop date: 05/22/18 1:00:00 CDT, ABX Indication: PneumoniaNotes: TIME CRITICAL MEDICATION (Same As: Vancocin) Infusion rate 2001 mg: infuse over 2.5 hours For adult patients only: Round to nearest 250 mg per Medical Staff approval MEDICATION WASTE Product Size: 1000 mg Product Wasted: ___ mg Inactive 05/15/2018 [facility] Morphine 30 mg, 30 mL, Route: IV, Initial Loading Dose: 2 mg, THERAPEUTIC PROGRAM WORKER Dose: 1 mg, THERAPEUTIC PROGRAM WORKER Lockout: 10 minutes, Continuous Basal Rate: 0 mg, 4 Hour Limit (In MG): 30, Drug Form: INJ, Continuous, Start date: 05/15/18 1:57:00 CDT, Duration: 30 day, Stop date: 06/14/18 1...Notes: Dose: Delay: Basal rate: 4hr limit: (Same as:Berna) No Longer Active 05/15/2018 [facility] Naloxone 0.04 mg, 0.1 mL, Route: IVP, Drug form: INJ, Q2MIN, Dosing Weight 56.818, kg, PRN Narcotic Reversal, Start date: 05/15/18 1:57:00 CDT, Duration: 30 day, Stop date: 06/14/18 1:56:00 CDTNotes: Same as Narcan No Longer Active 05/15/2018 [facility] Saline Flush 0.9% 10 ml, Route: IVP, Drug Form: INJ, Dosing Weight 56.818, kg, PRN, PRN Line Flush, Start date: 05/15/18 1:57:00 CDT, Duration: 30 day, Stop date: 06/14/18 1:56:00 CDTNotes: (Same as: BD Posiflush) No Longer Active 05/15/2018 [facility] Sodium Chloride 0.9% IV 1,000 mL 1,000 mL, Rate: 125 ml/hr, Infuse over: 8 hr, Route: IV, Dosing Weight 56.818 kg, Total Volume: 1,000, Start date: 05/15/18 1:57:00 CDT, Duration: 30 day, Stop date: 06/14/18 1:56:00 CDT, 1.59, m2 No Longer Active 05/15/2018 [facility] Acetaminophen 325 MG / Hydrocodone Bitartrate 5 MG Oral Tablet 1 tab, Route: PO, Drug Form: TAB, Dosing Weight 56.818, kg, Q4H, PRN Pain Score 4-6, Max acetaminophen dose 3 grams in 24 hours, Start date: 05/15/18 1:57:00 CDT, Duration: 30 day, Stop date: 06/14/18 1:56:00 CDTNotes: (Same as: [place] 325/5) Do not exceed 4gm/day of acetaminophen. No Longer Active 05/15/2018 [facility] Ondansetron 4 mg, 2 mL, Route: IVP, Drug form: INJ, Q8H, Dosing Weight 56.818, kg, PRN Nausea & Vomiting, Start date: 05/15/18 1:57:00 CDT, Duration: 30 day, Stop date: 06/14/18 1:56:00 CDTNotes: (Same as: Minervafran) MEDICATION WASTE Product Size: 4 mg Product Wasted: ___ mg No Longer Active 05/15/2018 [facility] Docusate Sodium 100 MG Oral Capsule 100 mg, 1 cap, Route: PO, Drug form: CAP, BID, Dosing Weight 56.818, kg, PRN Constipation, Start date: 05/15/18 1:57:00 CDT, Duration: 30 day, Stop date: 06/14/18 1:56:00 CDTNotes: (Same as: Colace) (Do Not Crush) No Longer Active 05/15/2018 [facility] Morphine 8 mg, 2 mL, Route: IVP, Drug form: SOLN, ONCE, Dosing Weight 56.818, kg, PRN Pain Score 7-10, Start date: 05/15/18 1:55:00 CDTNotes: (Same as:MORPhine Sulfate) Inactive 05/15/2018 [facility] Vancomycin 1,000 mg, Route: IVPB, Drug form: INJ, ONCE, Dosing Weight 56.818, kg, Priority: STAT, Start date: 05/15/18 0:26:00 CDT, Stop date: 05/15/18 0:26:00 CDT, ABX Indication: Pneumonia Inactive 05/15/2018 [facility] cefepime 1 gm, Route: IVPB, ONCE, Dosing Weight 56.818, kg, Priority: STAT, Start date: 05/15/18 0:25:00 CDT, Stop date: 05/15/18 0:25:00 CDT, ABX Indication: Pneumonia Inactive 05/15/2018 [facility] Morphine 4 mg, Route: IVP, ONCE, Dosing Weight 56.818, kg, Priority: STAT, Start date: 05/15/18 0:08:00 CDT, Stop date: 05/15/18 0:08:00 CDT Inactive 05/15/2018 [facility] Sodium Chloride 0.9% (Bolus) IV 1,000 mL, 1000 ml/hr, Infuse Over: 1 hr, Route: IV, 1,000, Drug form: INJ, ONCE, Priority: STAT, Dosing Weight 56.818 kg, Start date: 05/14/18 22:00:00 CDT, Stop date: 05/14/18 22:00:00 CDT Inactive 05/15/2018 [facility] Saline Flush 0.9% 10 mL, Route: IVP, Drug Form: INJ, Dosing Weight 56.818, kg, PRN, PRN Line Flush, Start date: 05/14/18 22:00:00 CDT, Duration: 30 day, Stop date: 06/13/18 21:59:00 CDTNotes: (Same as: BD Posiflush) No Longer Active 05/15/2018 [facility] Morphine 6 mg, 1.5 mL, Route: IVP, Drug form: SOLN, ONCE, Dosing Weight 56.818, kg, Priority: STAT, Start date: 05/14/18 22:00:00 CDT, Stop date: 05/14/18 22:00:00 CDTNotes: (Same as:MORPhine Sulfate) Inactive 05/15/2018 [facility] Ondansetron 4 mg, 2 mL, Route: IVP, Drug form: INJ, ONCE, Dosing Weight 56.818, kg, Priority: STAT, Start date: 05/14/18 22:00:00 CDT, Stop date: 05/14/18 22:00:00 CDTNotes: (Same as: Zofran) MEDICATION WASTE Product Size: 4 mg Product Wasted: ___ mg Inactive 05/15/2018 [facility] Diphenhydramine 12.5 mg, 0.25 mL, Route: IV, Drug form: INJ, ONCE, Dosing Weight 56.818, kg, Priority: STAT, Start date: 05/14/18 22:00:00 CDT, Stop date: 05/14/18 22:00:00 CDTNotes: (Same as: Benadryl) Inactive 05/15/2018 [facility] Morphine 10 mg, 5 mL, Route: PO, Drug form: SOLN, Q6H, Dosing Weight 56.818, kg, Start date: 05/08/18 21:00:00 CDT, Duration: 30 day, Stop date: 06/07/18 15:00:00 CDTNotes: (Same as:MORPhine Sulfate) No Longer Active 05/09/2018 [facility] Morphine 10 mg, 5 mL, Route: PO, Drug form: SOLN, ONCE, Dosing Weight 56.818, kg, Start date: 05/08/18 16:37:00 CDT, Stop date: 05/08/18 16:37:00 CDTNotes: (Same as:MORPhine Sulfate) Inactive 05/08/2018 [facility] Miralax 17 gm, 1 pkt, Route: PO, Drug form: PWDR, Daily, Dosing Weight 56.818, kg, Start date: 05/08/18 13:00:00 CDT, Duration: 30 day, Stop date: 06/07/18 9:00:00 CDTNotes: Dissolve in 8 oz of water or juice. (Same as: Miralax) No Longer Active 05/08/2018 [facility] Morphine 30 mg, 30 mL, Route: IV, Initial Loading Dose: 2 mg, THERAPEUTIC PROGRAM WORKER Dose: 1 mg, THERAPEUTIC PROGRAM WORKER Lockout: 10 minutes, Continuous Basal Rate: 0 mg, 4 Hour Limit (In MG): 22, Drug Form: INJ, Continuous, Start date: 05/08/18 11: 45:00 CDT, Duration: 30 day, Stop date: 06/07/18...Notes: Dose: Delay: Basal rate: 4hr limit: (Same as:Cristin-Kelly) Inactive 05/08/2018 [facility] MS Contin 30 mg, 1 tab, Route: PO, Drug form: ERTAB, Q12H, Dosing Weight 56.818, kg, Start date: 05/08/18 10:30:00 CDT, Stop date: 06/07/18 9:00:00 CDTNotes: Do not crush (Same as:Oramorph SR, MS Contin) No Longer Active 05/08/2018 [facility] Ibuprofen 800 mg, 1 tab, Route: PO, Drug form: TAB, Q8H, Dosing Weight 56.818, kg, PRN Pain Score 1-3, Start date: 05/08/18 9:47:00 CDT, Duration: 30 day, Stop date: 06/07/18 9:46:00 CDTNotes: (Same as: Motrin) "Do Not Crush" Take with food. No Longer Active 05/08/2018 [facility] [address] Saline nasal spray 1 spray, Route: Each Affected Nostril, PRN, Drug form: SOLN, PRN Allergies, Start date: 05/08/18 2:34:00 CDT, Duration: 30 day, Stop date: 06/07/18 2:33:00 CDTNotes: (Same as: Twiggs, Deep Sea Nasal [place]). No Longer Active 05/08/2018 [facility] Levetiracetam 500 MG Oral Tablet [Keppra] 500 mg, 1 tab, Route: PO, Drug form: TAB, Q12H, Dosing Weight 56.818, kg, Start date: 05/07/18 20:00:00 CDT, Duration: 30 day, Stop date: 06/06/18 8:00:00 CDTNotes: (Same as:Keppra) No Longer Active 05/08/2018 [facility] Docusate Sodium 50 MG / sennosides, SNF 8.6 MG Oral Tablet 1 tab, Route: PO, Drug Form: TAB, Dosing Weight 56.818, kg, BID, Start date: 05/07/18 17:00:00 CDT, Duration: 30 day, Stop date: 06/06/18 9:00:00 CDTNotes: (Same as Senokot-S) Equiv. to Nasima-Colace. No Longer Active 05/07/2018 [facility] ketOROLAC 30 mg/mL injectable solution 30 mg, 1 mL, Route: IVP, Drug form: INJ, Q6H, Dosing Weight 56.818, kg, PRN Pain Score 6-10, Start date: 05/07/18 12:08:00 CDT, Duration: 4 day, Stop date: 05/11/18 12:07:00 CDTNotes: (Same as:Toradol) IV bolus must be given >15 seconds. Give IM administration slowly and deeply into the muscle. Not for use > 4 days MEDICATION WASTE Product Size: 30 mg Product Wasted: ___ mg No Longer Active 05/07/2018 [facility] Docusate Sodium 100 MG Oral Capsule 100 mg=1 cap, PO, BID, 0 Refill(s) No Longer Active 05/07/2018 [facility] loratadine 10 mg oral tablet 10 mg=1 tab, PO, PRN, 0 Refill(s) No Longer Active 05/07/2018 [facility] Levetiracetam 500 MG Oral Tablet [Keppra] 500 mg=1 tab, PO, BID, 0 Refill(s) Active 05/07/2018 [facility] ibuprofen 800 mg oral tablet 800 mg=1 tab, PO, Q8H, 0 Refill(s) No Longer Active 05/07/2018 [facility] ondansetron 4 mg oral tablet 4 mg=1 tab, PO, Q8H, 0 Refill(s) No Longer Active 05/07/2018 [facility] mirtazapine 30 mg oral tablet 30 mg=1 tab, PO, Bedtime, 0 Refill(s) Active 05/07/2018 [facility] Hydroxyzine Hydrochloride 50 MG Oral Tablet 50 mg=1 tab, PO, PRN, 0 Refill(s) No Longer Active 05/07/2018 [facility] gabapentin 300 MG Oral Capsule 300 mg=1 cap, PO, TID, 0 Refill(s) No Longer Active 05/07/2018 [facility] Morphine Sulfate 15 MG Oral Tablet 15 mg=1 tab, PO, Q4H, 0 Refill(s) No Longer Active 05/07/2018 [facility] 200 ACTUAT Albuterol 0.09 MG/ACTUAT Metered Dose Inhaler [Proventil] 2 puff, INHALATION, Q4H, 0 Refill(s) Active 05/07/2018 [facility] Folic Acid 1 MG Oral Tablet 1 mg=1 tab, PO, Daily, 0 Refill(s) Active 05/07/2018 [facility] Tylenol PO, 0 Refill(s) No Longer Active 05/07/2018 [facility] Probiotic Formula 1 cap, PO, Daily, 0 Refill(s) No Longer Active 05/07/2018 [facility] Ibuprofen 400 MG Oral Tablet 800 mg, 1 tab, Route: PO, Drug form: TAB, TID, Dosing Weight 56.818, kg, PRN Pain Score 6-10, Start date: 05/07/18 11:26:00 CDT, Duration: 30 day, Stop date: 06/06/18 11:25:00 CDTNotes: (Same as: Motrin) "Do Not Crush" Take with food. Inactive 05/07/2018 [facility] Morphine 30 mg, 30 mL, Route: IV, Initial Loading Dose: 2 mg, THERAPEUTIC PROGRAM WORKER Dose: 1 mg, THERAPEUTIC PROGRAM WORKER Lockout: 10 minutes, Continuous Basal Rate: 1 mg, 4 Hour Limit (In MG): 22, Drug Form: INJ, Continuous, Start date: 05/07/18 10: 18:00 CDT, Duration: 30 day, Stop date: 06/06/18...Notes: Dose: Delay: Basal rate: 4hr limit: (Same as:Cristin-Kelly) No Longer Active 05/07/2018 [facility] Morphine 30 mL, Route: IV, Initial Loading Dose: 2 mg, THERAPEUTIC PROGRAM WORKER Dose: 1 mg, THERAPEUTIC PROGRAM WORKER Lockout: 10 minutes, Continuous Basal Rate: 1 mg, 4 Hour Limit (In MG): 28, Drug Form: INJ, Continuous, Start date: 05/07/18 10:15:00 C DT, Duration: 30 day, Stop date: 06/06/18 10:14:0... Inactive 05/07/2018 [facility] Levetiracetam 500 MG Oral Tablet [Keppra] 1,000 mg, 2 tab, Route: PO, Drug form: TAB, BID, Dosing Weight 56.818, kg, Start date: 05/07/18 9:00:00 CDT, Duration: 30 day, Stop date: 06/05/18 17:00:00 CDTNotes: (Same as:Keppra) No Longer Active 05/07/2018 [facility] Folic Acid 1 mg, 1 tab, Route: PO, Drug form: TAB, Daily, Dosing Weight 56.818, kg, Start date: 05/07/18 9:00:00 CDT, Duration: 30 day, Stop date: 06/05/18 9:00:00 CDTNotes: (Same as: Folvite) No Longer Active 05/07/2018 [facility] Morphine 30 mg, 30 mL, Route: IV, Initial Loading Dose: 2 mg, THERAPEUTIC PROGRAM WORKER Dose: 0.5 mg, THERAPEUTIC PROGRAM WORKER Lockout: 10 minutes, Continuous Basal Rate: 1 mg, 4 Hour Limit (In MG): 10, Drug Form: INJ, Continuous, Start date: 05/07/18 8 :18:00 CDT, Duration: 30 day, Stop date: 06/06/18...Notes: Dose: Delay: Basal rate: 4hr limit: (Same as:Berna) Inactive 05/07/2018 [facility] Lovenox 40 mg, 0.4 mL, Route: SUB-Q, Drug form: INJ, [id number], Dosing Weight 56.818, kg, Start date: 05/06/18 21:00:00 CDT, Duration: 30 day, Stop date: 06/04/18 21:00:00 CDTNotes: (Same as: Lovenox) No Longer Active 05/07/2018 [facility] Levetiracetam 500 MG Oral Tablet [Keppra] 1,000 mg, 2 tab, Route: PO, Drug form: TAB, BID, Dosing Weight 56.818, kg, Start date: 05/06/18 19:54:00 CDT, Duration: 30 day, Stop date: 06/05/18 17:00:00 CDTNotes: (Same as:Keppra) No Longer Active 05/07/2018 [facility] Morphine 30 mg, 30 mL, Route: IV, Initial Loading Dose: 2 mg, THERAPEUTIC PROGRAM WORKER Dose: 1 mg, THERAPEUTIC PROGRAM WORKER Lockout: 10 minutes, Continuous Basal Rate: 1 mg, 4 Hour Limit (In MG): 14, Drug Form: INJ, Continuous, Start date: 05/06/18 19: 33:00 CDT, Duration: 30 day, Stop date: 06/05/18...Notes: Dose: 1 mg Delay: 10 min Basal rate: 0 4hr limit: 14 mg (Same as:Rapi-Ject) No Longer Active 05/07/2018 [facility] Docusate 100 mg, 1 cap, Route: PO, Drug form: CAP, BID, Dosing Weight 56.818, kg, Start date: 05/06/18 17:00:00 CDT, Duration: 30 day, Stop date: 06/05/18 9:00:00 CDTNotes: (Same as: Colace) (Do Not Crush) No Longer Active 05/06/2018 [facility] Benadryl 25 mg, 1 cap, Route: PO, Drug form: CAP, TID, Dosing Weight 56.818, kg, PRN Itching, Start date: 05/06/18 16:53:00 CDT, Duration: 30 day, Stop date: 06/05/18 16:52:00 CDTNotes: (Same as: Benadryl) No Longer Active 05/06/2018 [facility] Zofran 4 mg, 2 mL, Route: IVP, Drug form: INJ, Q6H, Dosing Weight 56.818, kg, PRN Nausea, Start date: 05/06/18 15:55:00 CDT, Duration: 30 day, Stop date: 06/05/18 15:54:00 CDTNotes: (Same as: Zofran) MEDICATION WASTE Product Size: 4 mg Product Wasted: 0 mg No Longer Active 05/06/2018 [facility] ketOROLAC 15 mg/mL injectable solution 15 mg, 1 mL, Route: IVP, Drug form: INJ, Q6H, Dosing Weight 56.818, kg, PRN Pain Score 4-6, Start date: 05/06/18 15:55:00 CDT, Duration: 4 day, Stop date: 05/10/18 15:54:00 CDTNotes: (Same as:Toradol) IV bolus must be given >15 seconds. Give IM administration slowly and deeply into the muscle. Not for use > 4 days. No Longer Active 05/06/2018 [facility] Naloxone 0.04 mg, 0.1 mL, Route: IVP, Drug form: INJ, Q2MIN, Dosing Weight 56.818, kg, PRN Narcotic Reversal, Start date: 05/06/18 14:21:00 CDT, Duration: 30 day, Stop date: 06/05/18 14:20:00 CDTNotes: Same as Narcan No Longer Active 05/06/2018 [facility] Morphine 30 mg, 30 mL, Route: IV, Initial Loading Dose: 2 mg, THERAPEUTIC PROGRAM WORKER Dose: 0.5 mg, THERAPEUTIC PROGRAM WORKER Lockout: 10 minutes, Continuous Basal Rate: 0.5 mg, 4 Hour Limit (In MG): 14, Drug Form: INJ, Continuous, Start date: 05/06/18 14:21:00 CDT, Stop date: 06/05/18 14:20:00 CDTNotes: Dose: Delay: Basal rate: 4hr limit: (Same as:Berna) Inactive 05/06/2018 [facility] 1/2 NS 1,000 mL 1,000 mL, Rate: 125 ml/hr, Infuse over: 8 hr, Route: IV, Dosing Weight 56.818 kg, Total Volume: 1,000, Start date: 05/06/18 12:16:00 CDT, Duration: 30 day, Stop date: 06/05/18 12:15:00 CDT, 1.61, m2 No Longer Active 05/06/2018 [facility] ketOROLAC 15 mg/mL injectable solution 15 mg, Route: IVP, Drug form: INJ, ONCE, Dosing Weight 56.818, kg, Priority: STAT, Start date: 05/06/18 11:50:00 CDT, Stop date: 05/06/18 11:50:00 CDT Inactive 05/06/2018 [facility] Morphine 8 mg, 2 mL, Route: IVP, Drug form: SOLN, ONCE, Dosing Weight 56.818, kg, Priority: STAT, Start date: 05/06/18 11:50:00 CDT, Stop date: 05/06/18 11:50:00 CDTNotes: (Same as:MORPhine Sulfate) Inactive 05/06/2018 [facility] Morphine 8 mg, 2 mL, Route: IVP, Drug form: SOLN, ONCE, Dosing Weight 56.818, kg, Priority: STAT, Start date: 05/06/18 10:18:00 CDT, Stop date: 05/06/18 10:18:00 CDTNotes: (Same as:MORPhine Sulfate) Inactive 05/06/2018 [facility] Levetiracetam 500 MG Oral Tablet [Keppra] 1,000 mg=2 tab, PO, BID, # 360 tab, 0 Refill(s) No Longer Active 05/06/2018 [facility] NS (Bolus) IV 1,000 mL, 1,000 ml/hr, Infuse Over: 1 hr, Route: IV, 1,000, Drug form: INJ, ONCE, Priority: STAT, Dosing Weight 56.818 kg, Start date: 05/06/18 9:10:00 CDT, Stop date: 05/06/18 9:10:00 CDT Inactive 05/06/2018 [facility] Morphine 8 mg, 2 mL, Route: IVP, Drug form: SOLN, ONCE, Dosing Weight 56.818, kg, Priority: STAT, Start date: 05/06/18 9:09:00 CDT, Stop date: 05/06/18 9:09:00 CDTNotes: (Same as:MORPhine Sulfate) Inactive 05/06/2018 [facility] Zofran 4 mg, 2 mL, Route: IVP, Drug form: INJ, ONCE, Dosing Weight 56.818, kg, Priority: STAT, Start date: 05/06/18 9:09:00 CDT, Stop date: 05/06/18 9:09:00 CDTNotes: (Same as: Zofran) MEDICATION WASTE Product Size: 4 mg Product Wasted: ___ mg Inactive 05/06/2018 [facility] Dilaudid 1 mg, Route: IVP, ONCE, Dosing Weight 56.818, kg, Priority: STAT, Start date: 11/05/17 1:33:00 CALENDER INSPECTOR, Stop date: 11/05/17 1:33:00 CALENDER INSPECTOR Inactive 11/05/2017 [facility] Morphine 12 mg, Route: IV, ONCE, Dosing Weight 56.818, kg, Priority: STAT, Start date: 11/05/17 1:27:00 CALENDER INSPECTOR, Stop date: 11/05/17 1:27:00 CALENDER INSPECTOR Inactive 11/05/2017 [facility] Dilaudid 1 mg, Route: IVP, ONCE, Dosing Weight 56.818, kg, Priority: STAT, Start date: 11/05/17 0:29:00 CALENDER INSPECTOR, Stop date: 11/05/17 0:29:00 CALENDER INSPECTOR Inactive 11/05/2017 [facility] NS (Bolus) IV 1,000 mL, 1,000 ml/hr, Infuse Over: 1 hr, Route: IV, ONCE, Priority: STAT, Dosing Weight 56.818 kg, Start date: 11/05/17 0:14:00 CALENDER INSPECTOR, Stop date: 11/05/17 0:14:00 CALENDER INSPECTOR Inactive 11/05/2017 [facility] Zofran 4 mg, Route: IVP, Drug form: INJ, ONCE, Dosing Weight 56.818, kg, Priority: STAT, Start date: 11/05/17 0:13:00 CALENDER INSPECTOR, Stop date: 11/05/17 0:13:00 CALENDER INSPECTOR Inactive 11/05/2017 [facility] Morphine 4 mg, Route: IVP, ONCE, Dosing Weight 56.818, kg, Priority: STAT, Start date: 11/05/17 0:13:00 CALENDER INSPECTOR, Stop date: 11/05/17 0:13:00 CALENDER INSPECTOR Inactive 11/05/2017 [facility] MS Contin 30 mg, Route: PO, Drug form: ERTAB, BID, Dosing Weight 55.909, kg, Start date: 11/03/17 17:00:00 CALENDER INSPECTOR, Duration: 30 day, Stop date: 12/03/17 9:00:00 CALENDER INSPECTOR Inactive 11/03/2017 [facility] Lactulose 667 MG/ML Oral Solution 10 gm, 15 mL, Route: PO, Drug form: SYRP, ONCE, Dosing Weight 55.909, kg, Priority: NOW, Start date: 11/03/17 9:37:00 CALENDER INSPECTOR, Stop date: 11/03/17 9:37:00 CSTNotes: (Same as:Chronulac) Inactive 11/03/2017 [facility] Zofran 4 mg, 2 mL, Route: IV, Drug form: INJ, ONCE, Dosing Weight 55.909, kg, Start date: 11/02/17 21:11:00 CALENDER INSPECTOR, Stop date: 11/02/17 21:11:00 CSTNotes: (Same as: Zofran) MEDICATION WASTE Product Size: 4 mg Product Wasted: ___ mg Inactive 11/03/2017 [facility] Morphine 30 mg, 30 mL, Route: IV, Initial Loading Dose: 0 mg, THERAPEUTIC PROGRAM WORKER Dose: 0.5 mg, THERAPEUTIC PROGRAM WORKER Lockout: 7 minutes, Continuous Basal Rate: 0 mg, 4 Hour Limit (In MG): 16, Drug Form: INJ, Continuous, Start date: 11/02/17 9: 31:00 CALENDER INSPECTOR, Duration: 30 day, Stop date: 12/02/17...Notes: Dose: Delay: Basal rate: 4hr limit: (Same as:Cristin-Kelly) No Longer Active 11/02/2017 [facility] Naloxone 0.04 mg, 0.1 mL, Route: IVP, Drug form: INJ, Q2MIN, Dosing Weight 55.909, kg, PRN Narcotic Reversal, Start date: 11/02/17 9:31:00 CALENDER INSPECTOR, Duration: 30 day, Stop date: 12/02/17 9:30:00 CSTNotes: Same as Narcan No Longer Active 11/02/2017 [facility] Miralax 17 gm, 1 pkt, Route: PO, Drug form: PWDR, ONCE, Dosing Weight 55.909, kg, Start date: 11/01/17 22:33:00 CALENDER INSPECTOR, Stop date: 11/01/17 22:33:00 CSTNotes: Dissolve in 8 oz of water or juice. (Same as: Kayla ax) Inactive 11/02/2017 [facility] Zofran ODT 4 mg, 1 tab, Route: PO, Drug form: TABDIS, Q8H, Dosing Weight 55.909, kg, PRN Nausea, Start date: 11/01/17 22:32:00 CALENDER INSPECTOR, Duration: 30 day, Stop date: 12/01/17 22:31:00 CSTNotes: (Same as: Zofran ODT) No Longer Active 11/02/2017 [facility] Morphine 30 mg, 30 mL, Route: IV, THERAPEUTIC PROGRAM WORKER Dose: 1 mg, THERAPEUTIC PROGRAM WORKER Lockout: 20 minutes, Continuous Basal Rate: 0 mg, 4 Hour Limit (In MG): 14, Drug Form: INJ, Continuous, Start date: 11/01/17 15:51:00 CALENDER INSPECTOR, Duration: 30 day, Stop date: 12/01/17 15:50:00 CSTNotes: Dose: Delay: Basal rate: 4hr limit: (Same as:Cristin-Kelly) No Longer Active 11/01/2017 [facility] Morphine 30 mL, Route: IV, THERAPEUTIC PROGRAM WORKER Dose: 1 mg, THERAPEUTIC PROGRAM WORKER Lockout: 15 minutes, Continuous Basal Rate: 0 mg, 4 Hour Limit (In MG): 24, Drug Form: INJ, Continuous, Start date: 11/01/17 15:50:00 CALENDER INSPECTOR, Duration: 30 day, Stop date: 12/01/17 15:49:00 CALENDER INSPECTOR Inactive 11/01/2017 [facility] sennosides, SNF 8.6 mg, 1 tab, Route: PO, Drug Form: TAB, Dosing Weight 55.909, kg, BID, NOW, Start date: 11/01/17 13:41:00 CALENDER INSPECTOR, Duration: 30 day, Stop date: 12/01/17 9:00:00 CSTNotes: (Same as: Senokot) No Longer Active 11/01/2017 [facility] Benadryl 25 mg, 1 cap, Route: PO, Drug form: CAP, TID, Dosing Weight 55.909, kg, PRN Itching, Priority: NOW, Start date: 11/01/17 10:58:00 CALENDER INSPECTOR, Duration: 30 day, Stop date: 12/01/17 10:57:00 CSTNotes: (Same as: Benadryl) No Longer Active 11/01/2017 [facility] Zofran 4 mg, 2 mL, Route: IVP, Drug form: INJ, ONCE, Dosing Weight 55.909, kg, Priority: NOW, Start date: 11/01/17 10:58:00 CALENDER INSPECTOR, Stop date: 11/01/17 10:58:00 CSTNotes: (Same as: Zofran) MEDICATION WASTE Product Size: 4 mg Product Wasted: ___ mg Inactive 11/01/2017 [facility] Milk of Magnesia 30 ml, Route: PO, Drug Form: SUSP, Dosing Weight 55.909, kg, ONCE, PRN as needed for constipation, NOW, Start date: 11/01/17 10:58:00 CSTNotes: (Same as: Milk of Magnesia, MOM) Inactive 11/01/2017 [facility] Miralax 17 gm, 1 pkt, Route: PO, Drug form: PWDR, Daily, Dosing Weight 55.909, kg, Priority: NOW, Start date: 11/01/17 10:05:00 CALENDER INSPECTOR, Duration: 30 day, Stop date: 12/01/17 9:00:00 CSTNotes: Dissolve in 8 oz of water or juice. (Same as: Miralax) No Longer Active 11/01/2017 [facility] [facility] sennosides, SNF 6.6 mg, Route: PO, Dosing Weight 55.909, kg, BID, NOW, Start date: 11/01/17 10:05:00 CALENDER INSPECTOR, Duration: 30 day, Stop date: 12/01/17 9:00:00 CALENDER INSPECTOR Inactive 11/01/2017 [facility] Docusate 40 mg, Route: PO, TID, Dosing Weight 55.909, kg, Priority: NOW, Start date: 11/01/17 10:05:00 CALENDER INSPECTOR, Duration: 30 day, Stop date: 12/01/17 9:00:00 CALENDER INSPECTOR Inactive 11/01/2017 [facility] Morphine 30 mg, 30 mL, Route: IV, THERAPEUTIC PROGRAM WORKER Dose: 1 mg, THERAPEUTIC PROGRAM WORKER Lockout: 10 minutes, Continuous Basal Rate: 0 mg, 4 Hour Limit (In MG): 24, Drug Form: INJ, Continuous, Start date: 11/01/17 8:50:00 CALENDER INSPECTOR, Duration: 30 day, Stop date: 12/01/17 8:49:00 CSTNotes: Dose: Delay: Basal rate: 4hr limit: (Same as:Berna) Inactive 11/01/2017 [facility] Morphine 30 mL, Route: IV, THERAPEUTIC PROGRAM WORKER Dose: 1 mg, THERAPEUTIC PROGRAM WORKER Lockout: 10 minutes, Continuous Basal Rate: 0 mg, 4 Hour Limit (In MG): 51, Drug Form: INJ, Continuous, Start date: 11/01/17 8:43:00 CALENDER INSPECTOR, Duration: 30 day, Stop date: 12/01/17 8:42:00 CALENDER INSPECTOR Inactive 11/01/2017 [facility] hydrocortisone topical 1% cream 1 appl, Route: TOP, BID, Drug form: CRM, PRN Itching, Start date: 11/01/17 1:26:00 CALENDER INSPECTOR, Duration: 30 day, Stop date: 12/01/17 1:25:00 CALENDER INSPECTOR No Longer Active 11/01/2017 [facility] morphine 15 mg oral tablet, extended release 30 mg, 2 tab, Route: PO, Drug form: ERTAB, Q12H, Dosing Weight 55.909, kg, Start date: 10/31/17 21:00:00 CALENDER INSPECTOR, Duration: 30 day, Stop date: 11/30/17 9:00:00 CALENDER INSPECTOR No Longer Active 11/01/2017 [facility] Morphine Sulfate 15 MG Oral Tablet 30 mg, 2 tab, Route: PO, Drug form: TAB, Q6H, Dosing Weight 55.909, kg, PRN Pain Score 1-5, Start date: 10/31/17 18:18:00 CALENDER INSPECTOR, Duration: 30 day, Stop date: 11/30/17 18:17:00 CSTNotes: (Same as:MORPhine Sulfate) No Longer Active 11/01/2017 [facility] Morphine Sulfate 15 MG Oral Tablet 15 mg, 1 tab, Route: PO, Drug form: TAB, Q6H, Dosing Weight 55.909, kg, Start date: 10/31/17 18:00:00 CALENDER INSPECTOR, Duration: 30 day, Stop date: 11/30/17 12:00:00 CSTNotes: (Same as:MORPhine Sulfate) Inactive 11/01/2017 [facility] Acetaminophen 325 MG / Hydrocodone Bitartrate 10 MG Oral Tablet [[place] 10/325] 1 tab, Route: PO, Drug Form: TAB, Dosing Weight 55.909, kg, Q6H, PRN Pain Score 6-10, Start date: 10/31/17 17:07:00 CALENDER INSPECTOR, Duration: 30 day, Stop date: 11/30/17 17:06:00 CSTNotes: Do not exceed 4gm/day of acetaminophen. (Same as: [place] 325/10) No Longer Active 10/31/2017 [facility] Ibuprofen 600 mg, 1 tab, Route: PO, Drug form: TAB, Q6H, Dosing Weight 55.909, kg, PRN Pain Score 1-5, Start date: 10/31/17 17:07:00 CALENDER INSPECTOR, Duration: 30 day, Stop date: 11/30/17 17:06:00 CSTNotes: (Same as: Motrin) "Do Not Crush" Take with food. No Longer Active 10/31/2017 [facility] Morphine 30 mg, 30 mL, Route: IV, Initial Loading Dose: 2 mg, THERAPEUTIC PROGRAM WORKER Dose: 1.5 mg, THERAPEUTIC PROGRAM WORKER Lockout: 7 minutes, Continuous Basal Rate: 0 mg, 4 Hour Limit (In MG): 51, Drug Form: INJ, Continuous, Start date: 10/31/17 17 :07:00 CALENDER INSPECTOR, Duration: 30 day, Stop date: 11/30/17...Notes: Dose: Delay: Basal rate: 4hr limit: (Same as:Berna) No Longer Active 10/31/2017 [facility] Morphine 30 mg, 30 mL, Route: IV, Initial Loading Dose: 2 mg, THERAPEUTIC PROGRAM WORKER Dose: 1.5 mg, THERAPEUTIC PROGRAM WORKER Lockout: 7 minutes, Continuous Basal Rate: 2 mg, 4 Hour Limit (In MG): 56, Drug Form: INJ, Continuous, Start date: 10/31/17 9:09:00 CALENDER INSPECTOR, Duration: 30 day, Stop date: 11/30/17...Notes: Dose: Delay: Basal rate: 4hr limit: (Same as:Berna) Inactive 10/31/2017 [facility] Morphine 30 mg, 30 mL, Route: IV, Initial Loading Dose: 2 mg, THERAPEUTIC PROGRAM WORKER Dose: 1.5 mg, THERAPEUTIC PROGRAM WORKER Lockout: 7 minutes, Continuous Basal Rate: 2 mg, 4 Hour Limit (In MG): 58, Drug Form: INJ, Continuous, Start date: 10/31/17 8:18:00 CALENDER INSPECTOR, Duration: 30 day, Stop date: 11/30/17...Notes: Dose: Delay: Basal rate: 4hr limit: (Same as:Berna) Inactive 10/31/2017 [facility] Zofran 4 mg, 2 mL, Route: IVP, Drug form: INJ, ONCE, Dosing Weight 55.909, kg, Priority: NOW, Start date: 10/30/17 17:40:00 CALENDER INSPECTOR, Stop date: 10/30/17 17:40:00 CSTNotes: (Same as: Zofran) MEDICATION WASTE Product Size: 4 mg Product Wasted: ___ mg Inactive 10/30/2017 [facility] Acetaminophen 650 mg, 2 tab, Route: PO, Drug form: TAB, Q6H, Dosing Weight 54.545, kg, Start date: 10/30/17 12:00:00 CALENDER INSPECTOR, Duration: 30 day, Stop date: 11/29/17 6:00:00 CSTNotes: Do not exceed 4 gm/day. (Same as: Tylenol) No Longer Active 10/30/2017 [facility] 1/2 NS 1,000 mL 1,000 mL, Rate: 100 ml/hr, Infuse over: 10 hr, Route: IV, Dosing Weight 55.909 kg, Total Volume: 1,000, Start date: 10/30/17 9:22:00 CALENDER INSPECTOR, Duration: 30 day, Stop date: 11/29/17 9:21:00 CALENDER INSPECTOR, 1.59, m2 No Longer Active 10/30/2017 [facility] Potassium Chloride 40 mEq, 2 tab, Route: PO, Drug form: ERTAB, ONCE, Dosing Weight 55.909, kg, Priority: STAT, Start date: 10/30/17 8:56:00 CALENDER INSPECTOR, Stop date: 10/30/17 8:56:00 CSTNotes: (Same as: K-Dur 20) Inactive 10/30/2017 [facility] Oxycodone Hydrochloride 5 MG Oral Tablet 5 mg, 1 tab, Route: PO, Drug form: TAB, Q4H, Dosing Weight 55.909, kg, PRN Pain Score 7-10, Start date: 10/30/17 8:48:00 CALENDER INSPECTOR, Duration: 30 day, Stop date: 11/29/17 8:47:00 CSTNotes: (Same as: Roxicodone) No Longer Active 10/30/2017 [facility] Morphine 30 mg, 30 mL, Route: IV, Initial Loading Dose: 2 mg, THERAPEUTIC PROGRAM WORKER Dose: 1.5 mg, THERAPEUTIC PROGRAM WORKER Lockout: 7 minutes, Continuous Basal Rate: 2.5 mg, 4 Hour Limit (In MG): 58, Drug Form: INJ, Continuous, Start date: 10/30/17 8:38:00 CALENDER INSPECTOR, Duration: 30 day, Stop date: ...Notes: Dose: Delay: Basal rate: 4hr limit: (Same as:Cristin-Kelly) No Longer Active 10/30/2017 [facility] Oxycodone Hydrochloride 5 MG Oral Tablet 5 mg, Route: PO, Drug form: TAB, Q8H, Dosing Weight 55.909, kg, PRN Pain Score 7-10, Start date: 10/30/17 8:37:00 CALENDER INSPECTOR, Duration: 30 day, Stop date: 11/29/17 8:36:00 CALENDER INSPECTOR Inactive 10/30/2017 [facility] Zofran 4 mg, 1 tab, Route: PO, Drug form: TAB, ONCE, Dosing Weight 55.909, kg, Start date: 10/30/17 1:41:00 CALENDER INSPECTOR, Stop date: 10/30/17 1:41:00 CSTNotes: (Same as: Zofran) Inactive 10/30/2017 [facility] Folic Acid 1 mg, 1 tab, Route: PO, Drug form: TAB, Daily, Dosing Weight 54.545, kg, Start date: 10/29/17 9:00:00 CALENDER INSPECTOR, Duration: 30 day, Stop date: 11/27/17 9:00:00 CSTNotes: (Same as: Folvite) No Longer Active 10/29/2017 [facility] pantoprazole 40 mg, 1 tab, Route: PO, Drug form: ECTAB, Before Breakfast, Dosing Weight 55.909, kg, Priority: NOW, Start date: 10/29/17 8:20:00 CALENDER INSPECTOR, Duration: 30 day, Stop date: 11/28/17 7:30:00 CSTNotes: Tablet gloria uld not be chewed or crushed. (Same as: Protonix) No Longer Active 10/29/2017 [facility] Morphine 30 mg, 30 mL, Route: IV, Initial Loading Dose: 2 mg, THERAPEUTIC PROGRAM WORKER Dose: 1.5 mg, THERAPEUTIC PROGRAM WORKER Lockout: 7 minutes, Continuous Basal Rate: 3 mg, 4 Hour Limit (In MG): 30, Drug Form: INJ, Continuous, Start date: 10/28/17 19 :14:00 CALENDER INSPECTOR, Duration: 30 day, Stop date: 11/27/17...Notes: Dose: Delay: Basal rate: 4hr limit: (Same as:Monsei-Jedavid) No Longer Active 10/29/2017 [facility] Oxycodone Hydrochloride 5 MG Oral Tablet 5 mg, 1 tab, Route: PO, Drug form: TAB, Q6H, Dosing Weight 55.909, kg, PRN Pain Score 4-6, Start date: 10/28/17 18:20:00 CALENDER INSPECTOR, Duration: 30 day, Stop date: 11/27/17 18:19:00 CSTNotes: (Same as: Roxicodone) No Longer Active 10/29/2017 [facility] Nasal Mist 0.05% nasal spray 2 spray, Route: NASAL, Drug Form: SPRY, Dosing Weight 54.545, kg, BID, Start date: 10/28/17 17:00:00 CALENDER INSPECTOR, Duration: 5 day, Stop date: 11/02/17 9:00:00 CSTNotes: (Same as: Afrin) No Longer Active 10/28/2017 [facility] Lovenox 40 mg, 0.4 mL, Route: SUB-Q, Drug form: INJ, [id number], Dosing Weight 54.545, kg, Start date: 10/28/17 17:00:00 CALENDER INSPECTOR, Duration: 30 day, Stop date: 11/26/17 17:00:00 CSTNotes: (Same as: Lovenox) No Longer Active 10/28/2017 [facility] Docusate 100 mg, 1 cap, Route: PO, Drug form: CAP, BID, Dosing Weight 54.545, kg, Start date: 10/28/17 17:00:00 CALENDER INSPECTOR, Duration: 30 day, Stop date: 11/27/17 9:00:00 CSTNotes: (Same as: Colace) (Do Not Crush) No Longer Active 10/28/2017 [facility] Ibuprofen 400 mg, 1 tab, Route: PO, Drug form: TAB, Q4H, Dosing Weight 54.545, kg, Priority: NOW, Start date: 10/28/17 16:35:00 CALENDER INSPECTOR, Duration: 30 day, Stop date: 11/27/17 16:00:00 CSTNotes: (Same as: Motrin) "Do Not Crush" Give with food. No Longer Active 10/28/2017 [facility] Acetaminophen 650 mg, 2 tab, Route: PO, Drug form: TAB, Q4H, Dosing Weight 54.545, kg, PRN Pain 1-3/Temp > 100.4 F, Start date: 10/28/17 16:30:00 CALENDER INSPECTOR, Duration: 30 day, Stop date: 11/27/17 16:29:00 CSTNotes: Do not exceed 4 gm/day. (Same as: Tylenol) No Longer Active 10/28/2017 [facility] Ibuprofen 400 mg, 1 tab, Route: PO, Drug form: TAB, Q4H, Dosing Weight 54.545, kg, PRN Pain Score 1-3, Priority: NOW, Start date: 10/28/17 15:58:00 CALENDER INSPECTOR, Duration: 30 day, Stop date: 11/27/17 15:57:00 CALENDER INSPECTOR Inactive 10/28/2017 [facility] gabapentin 300 MG Oral Capsule 300 mg, 1 cap, Route: PO, Drug form: CAP, Q8H, Dosing Weight 54.545, kg, (CrCl > 60 ml/min), Priority: NOW, Start date: 10/28/17 15:58:00 CALENDER INSPECTOR, Duration: 30 day, Stop date: 11/27/17 8:00:00 CSTNotes: (Same as: Neurontin) No Longer Active 10/28/2017 [facility] Naloxone 0.04 mg, 0.1 mL, Route: IVP, Drug form: INJ, Q2MIN, Dosing Weight 54.545, kg, PRN Narcotic Reversal, Start date: 10/28/17 15:56:00 CALENDER INSPECTOR, Duration: 30 day, Stop date: 11/27/17 15:55:00 CSTNotes: Same as Narcan No Longer Active 10/28/2017 [facility] Morphine 30 mg, 30 mL, Route: IV, Initial Loading Dose: 2 mg, THERAPEUTIC PROGRAM WORKER Dose: 1.5 mg, THERAPEUTIC PROGRAM WORKER Lockout: 7 minutes, Continuous Basal Rate: 2.5 mg, 4 Hour Limit (In MG): 30, Drug Form: INJ, Continuous, Start date: 10/28/17 15:56:00 CALENDER INSPECTOR, Duration: 30 day, Stop date: ...Notes: Dose: Delay: Basal rate: 4hr limit: (Same as:Berna) Inactive 10/28/2017 [facility] LR IV 1,000 mL 1,000 mL, Rate: 125 ml/hr, Infuse over: 8 hr, Route: IV, Dosing Weight 54.545 kg, Total Volume: 1,000, Start date: 10/28/17 15:25:00 CALENDER INSPECTOR, Duration: 30 day, Stop date: 11/27/17 15:24:00 CALENDER INSPECTOR, 1.58, m2 No Longer Active 10/28/2017 [facility] Hydromorphone 1 mg, 0.5 mL, Route: IV, Drug form: INJ, ONCE, Dosing Weight 54.545, kg, Start date: 10/28/17 14:11:00 CALENDER INSPECTOR, Stop date: 10/28/17 14:11:00 CSTNotes: Same as Dilaudid Inactive 10/28/2017 [facility] Hydromorphone 1 mg, Route: IV, ONCE, Dosing Weight 54.545, kg, Start date: 10/28/17 12:54:00 CALENDER INSPECTOR, Stop date: 10/28/17 12:54:00 CALENDER INSPECTOR Inactive 10/28/2017 [facility] Zofran 4 mg, 2 mL, Route: IVP, Drug form: INJ, ONCE, Dosing Weight 54.545, kg, Priority: STAT, Start date: 10/28/17 11:44:00 CALENDER INSPECTOR, Stop date: 10/28/17 11:44:00 CSTNotes: (Same as: Zofran) MEDICATION WASTE Product Size: 4 mg Product Wasted: ___ mg Inactive 10/28/2017 [facility] Hydromorphone 1 mg, 0.5 mL, Route: IV, Drug form: INJ, ONCE, Dosing Weight 54.545, kg, Start date: 10/28/17 11:43:00 CALENDER INSPECTOR, Stop date: 10/28/17 11:43:00 CSTNotes: Same as Dilaudid Inactive 10/28/2017 [facility] Morphine 2 mg, 1 mL, Route: IVP, Drug form: INJ, ONCE, Dosing Weight 54.545, kg, Priority: STAT, Start date: 10/28/17 11:00:00 CALENDER INSPECTOR, Stop date: 10/28/17 11:00:00 CSTNotes: (Same as:MORPhine Sulfate) Inactive 10/28/2017 [facility] Calcium Chloride 0.0014 MEQ/ML / Potassium Chloride 0.004 MEQ/ML / Sodium Chloride 0.103 MEQ/ML / Sodium Lactate 0.028 MEQ/ML Injectable Solution 1,000 mL, 1,000 ml/hr, Infuse Over: 1 hr, Route: IV, 1,000, Drug form: INJ, ONCE, Priority: STAT, Dosing Weight 54.545 kg, Start date: 10/28/17 10:59:00 CALENDER INSPECTOR, Stop date: 10/28/17 10:59:00 CALENDER INSPECTOR Inactive 10/28/2017 [facility] pantoprazole 40 mg oral enteric coated tablet 40 mg=1 tab, PO, Daily, # 30 tab, 0 Refill(s), Pharmacy: [facility] [id number] Active 07/28/2017 [facility] Multiple Vitamins oral tablet 1 tab, PO, Daily, # 30 tab, 0 Refill(s), Pharmacy: [facility] [id number] Active 07/28/2017 [facility] Morphine Sulfate 30 MG Extended Release Tablet [MS Contin] 30 mg=1 tab, PO, BID, # 14 tab, 0 Refill(s) Active 07/28/2017 [facility] Bupropion 150 mg=1 tab, PO, QAM, 0 Refill(s) Active 07/28/2017 [facility] methocarbamol 500 mg oral tablet 1,000 mg=2 tab, PO, Q8H, X 7 day, # 42 tab, 0 Refill(s), Pharmacy: [facility] [id number] Active 07/28/2017 [facility] ibuprofen 600 mg oral tablet 600 mg=1 tab, PO, Q8H, X 10 day, # 30 tab, 0 Refill(s), Pharmacy: [facility] [id number] Active 07/28/2017 [facility] Docusate Sodium 50 MG / sennosides, SNF 8.6 MG Oral Tablet 2 tab, PO, BID, PRN Constipation, X 30 day, # 120 tab, 0 Refill(s), Pharmacy: [facility] [id number] Active 07/28/2017 [facility] Acetaminophen 325 MG / Hydrocodone Bitartrate 10 MG Oral Tablet [[place] 10/325] 1 tab, PO, Q6H, PRN for pain, X 6 day, # 24 tab, 0 Refill(s) Active 07/28/2017 [facility] polyethylene glycol 3350 oral powder for reconstitution 17 gm, PO, BID, X 7 day, # 255 gm, 0 Refill(s), Pharmacy: [facility] [id number] Active 07/28/2017 [facility] morphine extended release 60 mg, 2 tab, Route: PO, Drug form: ERTAB, Q12H, Dosing Weight 54.545, kg, Start date: 07/27/17 22:00:00 CDT, Duration: 30 day, Stop date: 08/26/17 21:00:00 CDTNotes: Do not crush (Same as:Oramorph SR, MS Contin) No Longer Active 07/28/2017 [facility] Morphine 15 mg, 1 tab, Route: PO, Drug form: TAB, Q4H, Dosing Weight 54.545, kg, PRN Pain Score 7-10, Start date: 07/27/17 17:58:00 CDT, Duration: 30 day, Stop date: 08/26/17 17:57:00 CDTNotes: (Same as:MORPhine Sulfate) No Longer Active 07/27/2017 [facility] Morphine 20 mg, Route: PO, Q4H, Dosing Weight 54.545, kg, PRN Pain Score 7-10, Start date: 07/27/17 17:53:00 CDT, Duration: 30 day, Stop date: 08/26/17 17:52:00 CDT Inactive 07/27/2017 [facility] Morphine 4 mg, Route: IVP, Drug form: SOLN, Q8H, Dosing Weight 54.545, kg, Start date: 07/27/17 16:00:00 CDT, Duration: 30 day, Stop date: 08/26/17 8:00:00 CDT Inactive 07/27/2017 [facility] Morphine 4 mg, 1 mL, Route: IVP, Drug form: SOLN, Q6H, Dosing Weight 54.545, kg, PRN Pain Score 7-10, Start date: 07/27/17 12:47:00 CDT, Duration: 30 day, Stop date: 08/26/17 12:46:00 CDTNotes: (Same as:MORPhine Sulfate) Inactive 07/27/2017 [facility] sodium chloride 0.9% INJ 250 mL 250 mL, Rate: body recall instructor for use with blood product administration, Dosing Weight 54.545, kg, Route: IV, Total Volume: 250, Start Date: 07/27/17 8:20:00 CDT, Duration: 30 day, Stop date: 08/26/17 8:19:00 CDT, Replace Every: 24 hr No Longer Active 07/27/2017 [facility] Ativan 1 mg, 0.5 mL, Route: IV, Drug form: INJ, Q8H, Dosing Weight 54.545, kg, PRN Agitation, Start date: 07/26/17 22:56:00 CDT, Duration: 30 day, Stop date: 08/25/17 22:55:00 CDTNotes: (Same as: Ativan) No Longer Active 07/27/2017 [facility] Ibuprofen 600 mg, Route: IV, Q8H, Dosing Weight 54.545, kg, Start date: 07/26/17 16:00:00 CDT, Duration: 30 day, Stop date: 08/25/17 8:00:00 CDT Inactive 07/26/2017 [facility] Morphine 4 mg, Route: IV, Q8H, Dosing Weight 54.545, kg, Start date: 07/26/17 16:00:00 CDT, Duration: 30 day, Stop date: 08/25/17 8:00:00 CDT Inactive 07/26/2017 [facility] Morphine 30 mg, 30 mL, Route: IV, THERAPEUTIC PROGRAM WORKER Dose: 2.5 mg, THERAPEUTIC PROGRAM WORKER Lockout: 10 minutes, Continuous Basal Rate: 0 mg, 4 Hour Limit (In MG): 60, Drug Form: INJ, Continuous, Start date: 07/26/17 12:30:00 CDTNotes: Dose: Delay: Basal rate: 4hr limit: (Same as:Cristin-Kelly) Inactive 07/26/2017 [facility] Morphine 4 mg, 1 mL, Route: IVP, Drug form: SOLN, Q8H, Dosing Weight 54.545, kg, PRN Pain Score 7-10, Start date: 07/26/17 12:16:00 CDT, Duration: 30 day, Stop date: 08/25/17 12:15:00 CDTNotes: (Same as:MORPhine Sulfate) No Longer Active 07/26/2017 [facility] morphine extended release 30 mg, 2 tab, Route: PO, Drug form: ERTAB, ONCE, Dosing Weight 54.545, kg, Start date: 07/25/17 17:42:00 CDT, Stop date: 07/25/17 17:42:00 CDTNotes: Do not crush (Same as:Oramorph SR, MS Contin) Inactive 07/25/2017 [facility] Simethicone 80 mg, 1 tab, Route: CHEW, Drug form: CHEWTAB, QID, Dosing Weight 54.545, kg, PRN Gas, Start date: 07/25/17 17:36:00 CDT, Duration: 30 day, Stop date: 08/24/17 17:35:00 CDTNotes: (Same as: Mylicon) No Longer Active 07/25/2017 [facility] Morphine 4 mg, 1 mL, Route: IVP, Drug form: SOLN, Q6H, Dosing Weight 54.545, kg, PRN Pain Score 7-10, Start date: 07/25/17 10:21:00 CDT, Duration: 30 day, Stop date: 08/24/17 10:20:00 CDTNotes: (Same as:MORPhine Sulfate) No Longer Active 07/25/2017 [facility] morphine extended release 60 mg, 2 tab, Route: PO, Drug form: ERTAB, Q12H, Dosing Weight 54.545, kg, Start date: 07/25/17 9:00:00 CDT, Duration: 30 day, Stop date: 08/23/17 21:00:00 CDTNotes: Do not crush (Same as:Oramorph SR, MS Contin) No Longer Active 07/25/2017 [facility] Morphine 4 mg, 1 mL, Route: IVP, Drug form: SOLN, ONCE, Dosing Weight 54.545, kg, Start date: 07/24/17 15:47:00 CDT, Stop date: 07/24/17 15:47:00 CDTNotes: (Same as:MORPhine Sulfate) Inactive 07/24/2017 [facility] Morphine 4 mg, 1 mL, Route: IVP, Drug form: SOLN, ONCE, Dosing Weight 54.545, kg, Start date: 07/24/17 8:37:00 CDT, Stop date: 07/24/17 8:37:00 CDTNotes: (Same as:MORPhine Sulfate) Inactive 07/24/2017 [facility] 72 HR Fentanyl 0.075 MG/HR Transdermal Patch 1 patch, Route: TOP, Drug Form: ERFILM, Dosing Weight 54.545, kg, Q72H, Start date: 07/21/17 19:00:00 CDT, Duration: 14 day, Stop date: 08/02/17 19:00:00 CDTNotes: (Same as: Duragesic) Check for product integrity. Apply to intact skin "Remove old patch before application of new patch" No Longer Active 07/22/2017 [facility] Benzocaine 200 MG/ML Otic Solution 4 drp, Route: OTIC, Q4H, Drug form: SOLN, PRN Pain Score 1-5, Start date: 07/21/17 17:57:00 CDT, Duration: 30 day, Stop date: 08/20/17 17:56:00 CDTNotes: For Otic Use Only (Same As: Oticaine, Americaine) No Longer Active 07/21/2017 [facility] carbamide peroxide 65 MG/ML Otic Solution [Debrox] 5 drp, Route: BOTH EARS, Drug Form: SOLN, Dosing Weight 54.545, kg, TID, Start date: 07/21/17 13:00:00 CDT, Duration: 1 day, Stop date: 07/22/17 9:00:00 CDTNotes: (carbamide peroxide 6.5% 15 ml otic SOLN) (Same As: Debrox) No Longer Active 07/21/2017 [facility] Morphine 4 mg, 1 mL, Route: IVP, Drug form: SOLN, ONCE, Dosing Weight 54.545, kg, Start date: 07/21/17 7:46:00 CDT, Stop date: 07/21/17 7:46:00 CDTNotes: (Same as:MORPhine Sulfate) Inactive 07/21/2017 [facility] sodium chloride 0.9% INJ 250 mL 250 mL, Rate: body recall instructor for use with blood product administration, Dosing Weight 54.545, kg, Route: IV, Total Volume: 250, Start Date: 07/21/17 5:42:00 CDT, Duration: 30 day, Stop date: 08/20/17 5:41:00 CDT, Replace Every: 24 hr No Longer Active 07/21/2017 [facility] Advil 600 mg, 1 tab, Route: PO, Drug form: TAB, Q8H, Dosing Weight 54.545, kg, Start date: 07/20/17 8:00:00 CDT, Duration: 5 day, Stop date: 07/25/17 0:00:00 CDTNotes: (Same as: Motrin) No Longer Active 07/20/2017 [facility] Advil 600 mg, Route: PO, Drug form: TAB, Q6H, Dosing Weight 54.545, kg, Start date: 07/19/17 18:04:00 CDT, Duration: 30 day, Stop date: 08/18/17 18:00:00 CDTNotes: (Same as: Motrin) "Do Not Crush" Give with food. No Longer Active 07/19/2017 [facility] Nasal Mist 0.05% nasal spray 2 spray, Route: NASAL, Dosing Weight 54.545, kg, BID, Start date: 07/19/17 17:00:00 CDT, Duration: 30 day, Stop date: 08/18/17 9:00:00 CDT Inactive 07/19/2017 [facility] Tylenol 650 mg, 2 tab, Route: PO, Drug form: TAB, Q6H, Dosing Weight 54.545, kg, PRN Pain 1-3/Temp > 100.4 F, Start date: 07/19/17 15:42:00 CDT, Duration: 30 day, Stop date: 08/18/17 15:41:00 CDTNotes: Do not exceed 4 gm/day. (Same as: Tylenol) No Longer Active 07/19/2017 [facility] Deep Sea Nasal [place] 2 spray, Route: NASAL, BID, Drug form: SOLN, Start date: 07/19/17 10:00:00 CDT, Duration: 30 day, Stop date: 08/18/17 9:00:00 CDTNotes: (Same as: Twiggs, Deep Sea Nasal [place]). No Longer Active 07/19/2017 [facility] APAP/butalbital/caffeine 1 tab, Route: PO, Drug Form: TAB, Q6H, PRN Headache 1-5, Start date: 07/18/17 17:11:00 CDT, Stop date: 08/17/17 17:10:00 CDTNotes: (amajydvmeqpkb-ybpeufgrcd-qysnjauw 325-50-40mg) Do not exceed 4 gm/day of acetaminophen. (Same as: Esgic, Fioricet) No Longer Active 07/18/2017 [facility] Miralax 17 gm, 1 pkt, Route: PO, Drug form: PWDR, BID, Dosing Weight 54.545, kg, Start date: 07/18/17 17:00:00 CDT, Duration: 30 day, Stop date: 08/17/17 9:00:00 CDTNotes: Dissolve in 8 oz of water or juice. (Same as: Miralax) No Longer Active 07/18/2017 [facility] Docusate Sodium 100 MG Oral Capsule [Colace] 100 mg, 1 cap, Route: PO, Drug form: CAP, BID, Dosing Weight 54.545, kg, Start date: 07/18/17 17:00:00 CDT, Duration: 30 day, Stop date: 08/17/17 9:00:00 CDTNotes: (Same as: Colace) (Do Not Crush) No Longer Active 07/18/2017 [facility] Excedrin Migraine 1 tab, Route: PO, Drug Form: TAB, Dosing Weight 54.545, kg, Q6H, PRN Headache 1-5, Start date: 07/18/17 16:38:00 CDT, Duration: 30 day, Stop date: 08/17/17 16:37:00 CDT Inactive 07/18/2017 [facility] Methocarbamol 1,000 mg, 2 tab, Route: PO, Drug form: TAB, Q8H, Dosing Weight 54.545, kg, Start date: 07/18/17 16:00:00 CDT, Duration: 30 day, Stop date: 08/17/17 8:00:00 CDTNotes: (Same as:Robaxin) No Longer Active 07/18/2017 [facility] sennosides, SNF 8.6 mg, 1 tab, Route: PO, Drug Form: TAB, Dosing Weight 54.545, kg, Daily, Start date: 07/18/17 15:30:00 CDT, Duration: 30 day, Stop date: 08/17/17 9:00:00 CDTNotes: (Same as: Senokot) No Longer Active 07/18/2017 [facility] Dulcolax Laxative 10 mg, 1 supp, Route: WA, Drug form: SUPP, Daily, Dosing Weight 54.545, kg, PRN Constipation, Start date: 07/18/17 14:44:00 CDT, Duration: 30 day, Stop date: 08/17/17 14:43:00 CDTNotes: (Same As: Dulcolax, Bisco-Lax) No Longer Active 07/18/2017 [facility] tramadol hydrochloride 50 MG Oral Tablet 100 mg, 2 tab, Route: PO, Drug form: TAB, Q6H-02, Dosing Weight 54.545, kg, Start date: 07/18/17 14:00:00 CDT, Duration: 30 day, Stop date: 08/17/17 8:00:00 CDTNotes: Not to exceed 400mg/day. (Same As: Ultram) No Longer Active 07/18/2017 [facility] Levaquin 750 mg, 1 tab, Route: PO, Drug form: TAB, [id number], Dosing Weight 54.545, kg, Start date: 07/18/17 13:00:00 CDT, Duration: 4 day, Stop date: 07/21/17 13:00:00 CDT, ABX Indication: PneumoniaNotes: Do not give w/antacids, dairy pdt & minerals Take 1 hr before or 2 hr after dairy products No Longer Active 07/18/2017 [facility] Morphine Sulfate 15 MG Oral Tablet 15 mg, 1 tab, Route: PO, Drug form: TAB, Q6H, Dosing Weight 54.545, kg, Start date: 07/18/17 12:00:00 CDT, Duration: 30 day, Stop date: 08/17/17 6:00:00 CDTNotes: (Same as:MORPhine Sulfate) No Longer Active 07/18/2017 [facility] gabapentin 100 MG Oral Capsule 300 mg, 1 cap, Route: PO, Drug form: CAP, Q8H, Dosing Weight 54.545, kg, Start date: 07/17/17 17:00:00 CDT, Duration: 30 day, Stop date: 08/16/17 16:00:00 CDTNotes: (Same as: Neurontin) No Longer Active 07/17/2017 [facility] Morphine 30 mg, 30 mL, Route: IV, Initial Loading Dose: 2 mg, THERAPEUTIC PROGRAM WORKER Dose: 2.5 mg, THERAPEUTIC PROGRAM WORKER Lockout: 10 minutes, Continuous Basal Rate: 0 mg, 4 Hour Limit (In MG): 85, Drug Form: INJ, Continuous, Start date: 07/17/17 1 5:30:00 CDT, Duration: 30 day, Stop date: ...Notes: (Same as:Berna) No Longer Active 07/17/2017 [facility] Ketorolac 15 mg, 1 mL, Route: IVP, Drug form: INJ, Q6H, Dosing Weight 54.545, kg, Start date: 07/16/17 18:00:00 CDT, Duration: 4 day, Stop date: 07/20/17 12:00:00 CDTNotes: (Same as:Toradol) IV bolus must be given >15 seconds. Give IM administration slowly and deeply into the muscle. Not for use > 4 days. No Longer Active 07/16/2017 [facility] Morphine 30 mg, 30 mL, Route: IV, Initial Loading Dose: 2 mg, THERAPEUTIC PROGRAM WORKER Dose: 1.5 mg, THERAPEUTIC PROGRAM WORKER Lockout: 7 minutes, Continuous Basal Rate: 2 mg, 4 Hour Limit (In MG): 30, Drug Form: INJ, Continuous, Start date: 07/16/17 17 :00:00 CDT, Duration: 30 day, Stop date: 08/15/17...Notes: Dose: Delay: Basal rate: 4hr limit: (Same as:Berna) No Longer Active 07/16/2017 [facility] Naloxone 0.04 mg, 0.1 mL, Route: IVP, Drug form: INJ, Q2MIN, Dosing Weight 54.545, kg, PRN Narcotic Reversal, Start date: 07/16/17 16:32:00 CDT, Duration: 30 day, Stop date: 08/15/17 16:31:00 CDTNotes: Same as Narcan No Longer Active 07/16/2017 [facility] Potassium Chloride 40 mEq, 2 tab, Route: PO, Drug form: ERTAB, ONCE, Dosing Weight 54.545, kg, Start date: 07/16/17 11:25:00 CDT, Stop date: 07/16/17 11:25:00 CDTNotes: (Same as: K-Dur 20) "Do Not Crush" With food and full glass of water Inactive 07/16/2017 [facility] Acetaminophen 325 MG / Hydrocodone Bitartrate 5 MG Oral Tablet [[place] 5/325] 1 tab, Route: PO, Drug Form: TAB, Dosing Weight 54.545, kg, Q6H, PRN Pain Score 4-6, Start date: 07/16/17 8:06:00 CDT, Duration: 30 day, Stop date: 08/15/17 8:05:00 CDTNotes: (Same as: [place] 325/5) Do not exceed 4gm/day of acetaminophen. No Longer Active 07/16/2017 [facility] Morphine 4 mg, 1 mL, Route: IVP, Drug form: SOLN, ONCE, Dosing Weight 54.545, kg, Start date: 07/16/17 1:29:00 CDT, Stop date: 07/16/17 1:29:00 CDTNotes: (Same as:MORPhine Sulfate) Inactive 07/16/2017 [facility] Lovenox 40 mg, 0.4 mL, Route: SUB-Q, Drug form: INJ, [id number], Dosing Weight 54.545, kg, Start date: 07/15/17 17:00:00 CDT, Duration: 30 day, Stop date: 08/13/17 17:00:00 CDTNotes: (Same as: Lovenox) No Longer Active 07/15/2017 [facility] Vancomycin 1 gm, Route: IVPB, Drug form: INJ, [id number], Dosing Weight 56.818, kg, Start date: 07/15/17 17:00:00 CDT, Duration: 30 day, Stop date: 08/14/17 9:00:00 CDT, ABX Indication: PneumoniaNotes: TIME CRITICAL M EDICATION (Same As: Vancocin) Infusion rate 2001 mg: infuse over 2.5 hours MEDICATION WASTE Product Size: 1000 mg Product Wasted: ___ mg No Longer Active 07/15/2017 [facility] gabapentin 100 MG Oral Capsule 100 mg, 1 cap, Route: PO, Drug form: CAP, Q8H, Dosing Weight 54.545, kg, Start date: 07/15/17 16:00:00 CDT, Duration: 30 day, Stop date: 08/14/17 8:00:00 CDTNotes: (Same as: Neurontin) No Longer Active 07/15/2017 [facility] tramadol hydrochloride 50 MG Oral Tablet 50 mg, 1 tab, Route: PO, Drug form: TAB, Q4H, Dosing Weight 54.545, kg, Start date: 07/15/17 16:00:00 CDT, Duration: 30 day, Stop date: 08/14/17 12:00:00 CDTNotes: Not to exceed 400mg/day. (Same As: Ultram) No Longer Active 07/15/2017 [facility] Ketorolac 15 mg, 1 mL, Route: IVP, Drug form: INJ, Q6H, Dosing Weight 54.545, kg, PRN Pain Score 4-6, Start date: 07/15/17 15:44:00 CDT, Duration: 4 day, Stop date: 07/19/17 15:43:00 CDTNotes: (Same as:Toradol) IV bolus must be given >15 seconds. Give IM administration slowly and deeply into the muscle. Not for use > 4 days. No Longer Active 07/15/2017 [facility] Vancomycin 1 gm, Route: IV, Drug form: INJ, Q12H, Dosing Weight 56.818, kg, Start date: 07/15/17 9:00:00 CDT, Duration: 30 day, Stop date: 08/13/17 21:00:00 CDT, ABX Indication: PneumoniaNotes: TIME CRITICAL MEDIC ATION (Same As: Vancocin) Infusion rate 2001 mg: infuse over 2.5 hours MEDICATION WASTE Product Size: 1000 mg Product Wasted: ___ mg Inactive 07/15/2017 [facility] pantoprazole 40 mg, 1 tab, Route: PO, Drug form: ECTAB, Daily, Dosing Weight 56.818, kg, Start date: 07/15/17 9:00:00 CDT, Duration: 30 day, Stop date: 08/13/17 9:00:00 CDTNotes: Tablet should not be chewed or cr ushed. (Same as: Protonix) No Longer Active 07/15/2017 [facility] multivitamin 1 tab, Route: PO, Drug Form: TAB, Dosing Weight 56.818, kg, Daily, Start date: 07/15/17 9:00:00 CDT, Duration: 30 day, Stop date: 08/13/17 9:00:00 CDTNotes: (Same as:Thera) WASTE: F/P - Black; E - M unicipal Trash Bin Take with food. No Longer Active 07/15/2017 [facility] Folic Acid 1 mg, 1 tab, Route: PO, Drug form: TAB, Daily, Dosing Weight 56.818, kg, Start date: 07/15/17 9:00:00 CDT, Duration: 30 day, Stop date: 08/13/17 9:00:00 CDTNotes: (Same as: Folvite) No Longer Active 07/15/2017 [facility] Cholecalciferol 1,000 IntlUnit, 1 tab, Route: PO, Drug form: TAB, Daily, Dosing Weight 56.818, kg, Start date: 07/15/17 9:00:00 CDT, Duration: 30 day, Stop date: 08/13/17 9:00:00 CDTNotes: Same as : Vitamin D3 No Longer Active 07/15/2017 [facility] Bupropion 150 mg, 1 tab, Route: PO, Drug form: ERTAB, QAM, Dosing Weight 56.818, kg, Start date: 07/15/17 9:00:00 CDT, Duration: 30 day, Stop date: 08/13/17 9:00:00 CDTNotes: (Same as: Wellbutrin XL) "Do Not Crush" No Longer Active 07/15/2017 [facility] cefepime 1 gm, Route: IV, Drug form: INJ, Q8H, Dosing Weight 56.818, kg, Start date: 07/15/17 8:00:00 CDT, Duration: 30 day, Stop date: 08/14/17 2:30:00 CDT, ABX Indication: PneumoniaNotes: (Same As: Maxipime) MEDICATION WASTE Product Size: 1000 mg Product Wasted: ___ mg No Longer Active 07/15/2017 [facility] Ibuprofen 400 MG Oral Tablet 800 mg, 1 tab, Route: PO, Drug form: TAB, TID-Meals, Dosing Weight 56.818, kg, Start date: 07/15/17 8:00:00 CDT, Duration: 30 day, Stop date: 08/13/17 17:00:00 CDTNotes: (Same as: Naomi) "Do Not Crush" Take with food. 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 PROGRAM WORKER Lockout: 10 minutes, Continuous Basal Rate: 1 mg, 4 Hour Limit (In MG): 16, Drug Form: INJ, Continuous, Start date: 07/15/17 7 :30:00 CDT, Stop date: 08/14/17 7:29:00 CDTNotes: Dose: Delay: Basal rate: 4hr limit: (Same as:Berna) No Longer Active 07/15/2017 [facility] Morphine 10 mg, Route: IV, ONCE, Dosing Weight 56.818, kg, Start date: 07/15/17 5:36:00 CDT, Stop date: 07/15/17 5:36:00 CDT Inactive 07/15/2017 [facility] Morphine 10 mg, Route: IV, ONCE, Dosing Weight 56.818, kg, Start date: 07/15/17 4:00:00 CDT, Stop date: 07/15/17 4:00:00 CDT Inactive 07/15/2017 [facility] sodium chloride 0.9% 1000 ml INJ 1,000 mL 1,000 mL, Rate: 125 ml/hr, Infuse over: 8 hr, Route: IV, Dosing Weight 56.818 kg, Total Volume: 1,000, Start date: 07/15/17 2:26:00 CDT, Duration: 30 day, Stop date: 08/14/17 2:25:00 CDT No Longer Active 07/15/2017 [facility] Docusate Sodium 50 MG / sennosides, SNF 8.6 MG Oral Tablet 2 tab, Route: PO, Drug Form: TAB, Dosing Weight 56.818, kg, BID, PRN Constipation, Start date: 07/15/17 2:08:00 CDT, Duration: 30 day, Stop date: 08/14/17 2:07:00 CDTNotes: (Same as Senokot-S) Equiv. to Nasima-Colace. No Longer Active 07/15/2017 [facility] Ondansetron 4 mg, 2 mL, Route: IVP, Drug form: INJ, Q6H, Dosing Weight 56.818, kg, PRN Nausea & Vomiting, Start date: 07/15/17 2:01:00 CDT, Duration: 30 day, Stop date: 08/14/17 2:00:00 CDTNotes: (Same as: Zofran) MEDICATION WASTE Product Size: 4 mg Product Wasted: ___ mg No Longer Active 07/15/2017 [facility] Morphine 10 mg, Route: IVP, ONCE, Dosing Weight 56.818, kg, Priority: STAT, Start date: 07/15/17 1:07:00 CDT, Stop date: 07/15/17 1:07:00 CDT Inactive 07/15/2017 [facility] Morphine 8 mg, Route: IVP, ONCE, Dosing Weight 56.818, kg, Priority: STAT, Start date: 07/14/17 23:48:00 CDT, Stop date: 07/14/17 23:48:00 CDT No Longer Active 07/15/2017 [facility] Isolyte S PH-7.4 (Bolus) IV 1,000 mL, Route: IV, Dosing Weight 56.818, kg, ONCE, Start date: 07/14/17 23:22:00 CDT, Stop date: 07/14/17 23:22:00 CDT Inactive 07/15/2017 [facility] Fentanyl 100 microgram, Route: IVP, ONCE, Dosing Weight 56.818, kg, Priority: STAT, Start date: 07/14/17 23:22:00 CDT, Stop date: 07/14/17 23:22:00 CDT Inactive 07/15/2017 [facility] MS Contin 15 mg, 1 tab, Route: PO, Drug form: ERTAB, Q12H, Dosing Weight 56.818, kg, Start date: 07/12/17 21:00:00 CDT, Duration: 30 day, Stop date: 08/11/17 9:00:00 CDTNotes: Do not crush (Same as:Oramorph SR, MS Contin) Inactive 07/13/2017 [facility] Protonix 40 mg, 1 tab, Route: PO, Drug form: ECTAB, Before Dinner, Dosing Weight 56.818, kg, Start date: 07/12/17 16:30:00 CDT, Duration: 14 day, Stop date: 07/25/17 16:30:00 CDTNotes: Tablet should not be chewed or crushed. (Same as: Protonix) Inactive 07/12/2017 [facility] pantoprazole 40 mg oral enteric coated tablet 40 mg=1 tab, PO, Daily, # 30 tab, 0 Refill(s) Active 07/12/2017 [facility] Sulfamethoxazole 800 MG / Trimethoprim 160 MG Oral Tablet [Bactrim] 2 tab, PO, ACON11Y, X 7 day, # 28 tab, 0 Refill(s) Active 07/12/2017 [facility] Acetaminophen 325 MG / Hydrocodone Bitartrate 10 MG Oral Tablet [[place] 10/325] 1 tab, PO, Q6Hnow, 0 Refill(s) Active 07/12/2017 [facility] levofloxacin 750 mg oral tablet 750 mg=1 tab, PO, [id number], X 7 day, # 7 tab, 0 Refill(s) Active 07/12/2017 [facility] Ibuprofen 400 MG Oral Tablet 800 mg=2 tab, PO, TID-Meals, X 7 day, # 42 tab, 0 Refill(s) Active 07/12/2017 [facility] Sulfamethoxazole 800 MG / Trimethoprim 160 MG Oral Tablet [Bactrim] 2 tab, Route: PO, Drug Form: TAB, Dosing Weight 56.818, kg, [id number], Start date: 07/12/17 11:00:00 CDT, Duration: 4 day, Stop date: 07/15/17 23:00:00 CDTNotes: One DS tablet=trimethoprim 160mg + sulfamethoxazole 800 mg Dose based on trimethoprim component On empty stomach with a glass of water. (Same As: Bactrim DS, Septra DS) Inactive 07/12/2017 [facility] Levofloxacin 750 mg, 1 tab, Route: PO, Drug form: TAB, [id number], Dosing Weight 56.818, kg, Start date: 07/12/17 11:00:00 CDT, Duration: 4 day, Stop date: 07/15/17 17:00:00 CDT, ABX Indication: PneumoniaNotes: Do not give w/antacids, dairy pdt & minerals Take 1 hr before or 2 hr after dairy products Inactive 07/12/2017 [facility] MS Contin 15 mg, 1 tab, Route: PO, Drug form: ERTAB, ONCE, Dosing Weight 56.818, kg, Start date: 07/12/17 10:50:00 CDT, Stop date: 07/12/17 10:50:00 CDTNotes: Do not crush (Same as:Oramorph SR, MS Contin) Inactive 07/12/2017 [facility] Potassium Chloride 40 mEq, 2 tab, Route: PO, Drug form: ERTAB, ONCE, Dosing Weight 56.818, kg, Start date: 07/12/17 7:45:00 CDT, Stop date: 07/12/17 7:45:00 CDTNotes: (Same as: K-Dur 20) "Do Not Crush" With food and full glass of water Inactive 07/12/2017 [facility] Lovenox 40 mg, 0.4 mL, Route: SUB-Q, Drug form: INJ, [id number], Dosing Weight 56.818, kg, Start date: 07/11/17 18:00:00 CDT, Duration: 30 day, Stop date: 08/09/17 18:00:00 CDTNotes: (Same as: Lovenox) No Longer Active 07/11/2017 [facility] Ibuprofen 400 MG Oral Tablet 800 mg, 2 tab, Route: PO, Drug form: TAB, TID-Meals, Dosing Weight 56.818, kg, Start date: 07/11/17 12:00:00 CDT, Duration: 30 day, Stop date: 08/10/17 8:00:00 CDTNotes: (Same as: Motrin) "Do Not Crush" Give with food. No Longer Active 07/11/2017 [facility] vancomycin + sodium chloride 0.9% INJ 250 mL 1.25 gm, Route: IVPB, [id number], Start date: 07/10/17 18:00:00 CDT, Stop date: 08/09/17 10:30:00 CDT, ABX Indication: Pneumonia No Longer Active 07/10/2017 [facility] iodixanol 100 mL, Route: IVP, Drug Form: SOLN, Dosing Weight 56.818, kg, ONCALL, STAT, Start date: 07/10/17 15:37:00 CDT, Duration: 1 doses or times, Dose=2.2ml/kg, Max [id number] -- "To be infused by Radiology Staff ONLY" Inactive 07/10/2017 [facility] Acetaminophen 325 MG / Hydrocodone Bitartrate 10 MG Oral Tablet [[place] 10/325] 1 tab, Route: PO, Dosing Weight 56.818, kg, Q6H, Start date: 07/10/17 12:00:00 CDT, Duration: 30 day, Stop date: 08/09/17 6:00:00 CDT Inactive 07/10/2017 [facility] Docusate Sodium 50 MG / sennosides, SNF 8.6 MG Oral Tablet 1 tab, Route: PO, Drug Form: TAB, Dosing Weight 56.818, kg, Daily, Start date: 07/10/17 9:00:00 CDT, Duration: 30 day, Stop date: 08/08/17 9:00:00 CDTNotes: (Same as Senokot-S) Equiv. to Nasima-Colace. No Longer Active 07/10/2017 [facility] Acetaminophen 325 MG / Hydrocodone Bitartrate 10 MG Oral Tablet [[place] 10/325] 1 tab, Route: PO, Drug Form: TAB, Dosing Weight 56.818, kg, Q6Hnow, Start date: 07/10/17 8:16:00 CDT, Duration: 30 day, Stop date: 08/09/17 2:16:00 CDT No Longer Active 07/10/2017 [facility] vancomycin + sodium chloride 0.9% 250 mL INJ (for IV set) 250 mL 750 mg, Route: IVPB, [id number], Start date: 07/09/17 19:00:00 CDT, Duration: 30 day, Stop date: 08/08/17 11:00:00 CDT, ABX Indication: PneumoniaNotes: TIME CRITICAL MEDICATION (Same As: Vancocin) Infusion rate 2001 mg: infuse over 2.5 hours MEDICATION WASTE Product Size: 1000 mg Product Wasted: ___ mg No Longer Active 07/10/2017 [facility] potassium chloride 20 mEq oral tablet, extended release 40 mEq, 2 tab, Route: PO, Drug form: ERTAB, ONCE, Dosing Weight 56.818, kg, Start date: 07/09/17 16:34:00 CDT, Stop date: 07/09/17 16:34:00 CDTNotes: (Same as: K-Dur 20) "Do Not Crush" With food and full glass of water Inactive 07/09/2017 [facility] MS Contin 30 mg, 1 tab, Route: PO, Drug form: ERTAB, Q12H, Dosing Weight 56.818, kg, Start date: 07/09/17 12:35:00 CDT, Duration: 30 day, Stop date: 08/08/17 9:00:00 CDTNotes: Do not crush (Same as:Oramorph SR, MS Contin) Inactive 07/09/2017 [facility] Vancomycin 1,000 mg, Route: IVPB, Drug form: INJ, ONCE, Dosing Weight 56.818, kg, Start date: 07/09/17 11:18:00 CDT, Stop date: 07/09/17 11:18:00 CDT, ABX Indication: Pneumonia Inactive 07/09/2017 [facility] Vancomycin 1,000 mg, Route: IVPB, Drug form: INJ, ONCE, Dosing Weight 56.818, kg, Start date: 07/09/17 11:15:00 CDT, Stop date: 07/09/17 11:15:00 CDT, ABX Indication: Pneumonia Inactive 07/09/2017 [facility] vancomycin + sodium chloride 0.9% INJ 250 mL 1.5 gm, Route: IVPB, ONCE, Start date: 07/09/17 11:00:00 CDT, Stop date: 07/09/17 11:00:00 CDT, ABX Indication: PneumoniaNotes: TIME CRITICAL MEDICATION (Same As: Vancocin) Infusion rate 2001 mg: infuse over 2.5 hours MEDICATION WASTE Product Size: 1000 mg Product Wasted: ___ mg Inactive 07/09/2017 [facility] sodium chloride 0.9% INJ 250 mL 250 mL, Rate: Childcare Aide for use with blood product administration., Dosing Weight 56.818, kg, Route: IV, Total Volume: 250, Priority: Routine, Start Date: 07/09/17 10:55:00 CDT, Duration: 1 day, Stop date: 07/10/17 10:54:00 CDT, Replace Every: 24 hr No Longer Active 07/09/2017 [facility] cefepime 1 gm, Route: IVPB, Drug form: INJ, [id number], Dosing Weight 56.818, kg, (CrCl >/=50 ml/min), Start date: 07/09/17 10:00:00 CDT, Duration: 7 day, Stop date: 07/16/17 2:00:00 CDT, ABX Indication: PneumoniaNotes: (Same As: Maxipime) MEDICATION WASTE Product Size: 1000 mg Product Wasted: ___ mg No Longer Active 07/09/2017 [facility] Folic Acid 1 mg, 1 tab, Route: PO, Drug form: TAB, Daily, Dosing Weight 58.636, kg, Start date: 07/09/17 9:00:00 CDT, Duration: 30 day, Stop date: 08/07/17 9:00:00 CDTNotes: (Same as: Folvite) No Longer Active 07/09/2017 [facility] Vitamin B12 1,000 microgram, 1 tab, Route: PO, Drug form: TAB, Daily, Dosing Weight 58.636, kg, Start date: 07/09/17 9:00:00 CDT, Duration: 30 day, Stop date: 08/07/17 9:00:00 CDTNotes: (Same As: Vitamin B-12) No Longer Active 07/09/2017 [facility] acetaminophen 325 mg oral tablet 325 mg, 1 tab, Route: PO, Drug form: TAB, Q6H, Dosing Weight 56.818, kg, PRN For Temp > 100.4 F, Start date: 07/09/17 5:36:00 CDT, Duration: 30 day, Stop date: 08/08/17 5:35:00 CDTNotes: Do not exceed 4 gm/day. (Same as: Tylenol) Inactive 07/09/2017 [facility] Morphine 2 mg, 0.5 mL, Route: IVP, Drug form: SOLN, ONCE, Dosing Weight 56.818, kg, Start date: 07/09/17 4:30:00 CDT, Stop date: 07/09/17 4:30:00 CDTNotes: (Same as:MORPhine Sulfate) Inactive 07/09/2017 [facility] Morphine 2 mg, 0.5 mL, Route: IVP, Drug form: SOLN, ONCE, Dosing Weight 56.818, kg, Start date: 07/08/17 22:34:00 CDT, Stop date: 07/08/17 22:34:00 CDTNotes: (Same as:MORPhine Sulfate) No Longer Active 07/09/2017 [facility] Ketamine 30 mg, Route: IV, ONCE, Dosing Weight 58.636, kg, Start date: 07/08/17 14:05:00 CDT, Stop date: 07/08/17 14:05:00 CDT Inactive 07/08/2017 [facility] Morphine 30 mg, 30 mL, Route: IV, Initial Loading Dose: 2 mg, THERAPEUTIC PROGRAM WORKER Dose: 0.5 mg, THERAPEUTIC PROGRAM WORKER Lockout: 15 minutes, Continuous Basal Rate: 0 mg, 4 Hour Limit (In MG): 8, Drug Form: INJ, Continuous, Start date: 07/08/17 14 :00:00 CDTNotes: Dose: 1mg Delay: 10 minutes Basal rate: NONE 4hr limit: 24mg (Same as:Cristin-Kelly) No Longer Active 07/08/2017 [facility] Morphine 10 mg, Route: IVP, ONCE, Dosing Weight 58.636, kg, Priority: STAT, Start date: 07/08/17 13:53:00 CDT, Stop date: 07/08/17 13:53:00 CDT Inactive 07/08/2017 [facility] Naloxone 0.04 mg, 0.1 mL, Route: IVP, Drug form: INJ, Q2MIN, Dosing Weight 58.636, kg, PRN Narcotic Reversal, Start date: 07/08/17 13:50:00 CDT, Duration: 30 day, Stop date: 08/07/17 13:49:00 CDTNotes: Same as Narcan No Longer Active 07/08/2017 [facility] [place] sodium chloride 0.9% INJ 250 mL 250 mL, Rate: body recall instructor for use with blood product administration, Dosing Weight 58.636, kg, Route: IV, Total Volume: 250, Start Date: 07/08/17 13:50:00 CDT, Duration: 1 day, Stop date: 07/09/17 13:49:00 CDT, Replace Every: 6 hr No Longer Active 07/08/2017 [facility] [place] sodium chloride 0.45% 1000 ml INJ 1,000 mL 1,000 mL, Rate: 125 ml/hr, Infuse over: 8 hr, Route: IV, Dosing Weight 58.636 kg, Total Volume: 1,000, Start date: 07/08/17 13:50:00 CDT, Duration: 30 day, Stop date: 08/07/17 13:49:00 CDT No Longer Active 07/08/2017 [facility] [place] senna 8.6 mg oral tablet 2 tab, Route: PO, Dosing Weight 58.636, kg, Bedtime, PRN Constipation, Start date: 07/08/17 13:50:00 CDT, Duration: 30 day, Stop date: 08/07/17 13:49:00 CDT Inactive 07/08/2017 [facility] [place] Docusate Sodium 100 MG Oral Capsule 100 mg, Route: PO, Drug form: CAP, BID, Dosing Weight 58.636, kg, PRN Constipation, Start date: 07/08/17 13:50:00 CDT, Duration: 30 day, Stop date: 08/07/17 13:49:00 CDT Inactive 07/08/2017 [facility] Diphenhydramine Hydrochloride 25 MG Disintegrating Tablet 25 mg, 1 cap, Route: PO, Drug form: CAP, TID, Dosing Weight 58.636, kg, PRN Itching, Start date: 07/08/17 13:41:00 CDT, Duration: 30 day, Stop date: 08/07/17 13:40:00 CDTNotes: (Same as: Benadryl) No Longer Active 07/08/2017 [facility] Zofran 4 mg, 1 tab, Route: PO, Drug form: TAB, Q8H, Dosing Weight 58.636, kg, PRN Nausea, Start date: 07/08/17 13:39:00 CDT, Duration: 30 day, Stop date: 08/07/17 13:38:00 CDTNotes: (Same as: Zofran) No Longer Active 07/08/2017 [facility] Levofloxacin 750 mg, 1 tab, Route: PO, Drug form: TAB, ONCE, Dosing Weight 58.636, kg, Start date: 07/08/17 13:38:00 CDT, Stop date: 07/08/17 13:38:00 CDT, ABX Indication: PneumoniaNotes: Do not give w/antacids, dairy pdt & minerals Take 1 hr before or 2 hr after dairy products Inactive 07/08/2017 [facility] Docusate Sodium 50 MG / sennosides, SNF 8.6 MG Oral Tablet 2 tab, Route: PO, Drug Form: TAB, Dosing Weight 58.636, kg, BID, PRN Constipation, Start date: 07/08/17 13:38:00 CDT, Duration: 30 day, Stop date: 08/07/17 13:37:00 CDTNotes: (Same as Senokot-S) Equiv. to Nasima-Colace. No Longer Active 07/08/2017 [facility] Morphine 4 mg, Route: IVP, ONCE, Dosing Weight 58.636, kg, Priority: STAT, Start date: 07/08/17 13:36:00 CDT, Stop date: 07/08/17 13:36:00 CDT Inactive 07/08/2017 [facility] Calcium Chloride 0.0014 MEQ/ML / Potassium Chloride 0.004 MEQ/ML / Sodium Chloride 0.103 MEQ/ML / Sodium Lactate 0.028 MEQ/ML Injectable Solution 1,000 mL, 1,000 ml/hr, Infuse Over: 1 hr, Route: IV, 1,000, Drug form: INJ, ONCE, Priority: STAT, Dosing Weight 58.636 kg, Start date: 07/08/17 11:46:00 CDT, Duration: 1 doses or times, Stop date: 07/08/17 11:46:00 CDT Inactive 07/08/2017 [facility] Morphine 10 mg, 2.5 mL, Route: IVP, Drug form: SOLN, ONCE, Dosing Weight 58.636, kg, Priority: STAT, Start date: 07/08/17 11:03:00 CDT, Stop date: 07/08/17 11:03:00 CDTNotes: (Same as:MORPhine Sulfate) Inactive 07/08/2017 [facility] Morphine 8 mg, Route: IVP, ONCE, Dosing Weight 58.636, kg, Priority: STAT, Start date: 07/08/17 10:15:00 CDT, Stop date: 07/08/17 10:15:00 CDT Inactive 07/08/2017 [facility] Zofran 4 mg, Route: IVP, Drug form: INJ, ONCE, Dosing Weight 58.636, kg, Priority: STAT, Start date: 07/08/17 9:02:00 CDT, Stop date: 07/08/17 9:02:00 CDT Inactive 07/08/2017 [facility] Calcium Chloride 0.0014 MEQ/ML / Potassium Chloride 0.004 MEQ/ML / Sodium Chloride 0.103 MEQ/ML / Sodium Lactate 0.028 MEQ/ML Injectable Solution 1,000 mL, 1,000 ml/hr, Infuse Over: 1 hr, Route: IV, 1,000, Drug form: INJ, ONCE, Priority: STAT, Dosing Weight 58.636 kg, Start date: 07/08/17 8:56:00 CDT, Duration: 1 doses or times, Stop date: 07/08/17 8:56:00 CDT Inactive 07/08/2017 [facility] Morphine 8 mg, 1 mL, Route: IVP, Drug form: INJ, ONCE, Dosing Weight 58.636, kg, Priority: STAT, Start date: 07/08/17 8:54:00 CDT, Stop date: 07/08/17 8:54:00 CDTNotes: (Same as: MORPhine Sulfate) Inactive 07/08/2017 [facility] Saline Flush 0.9% 10 mL, Route: IVP, Drug Form: INJ, Dosing Weight 58.636, kg, PRN, PRN Line Flush, Start date: 07/08/17 8:54:00 CDT, Duration: 30 day, Stop date: 08/07/17 8:53:00 CDTNotes: (Same as: BD Posiflush) No Longer Active 07/08/2017 [facility] Morphine Sulfate 15 MG Oral Tablet 15 mg=1 tab, PO, Q6H, PRN Pain Score 7-10, # 20 tab, 0 Refill(s), given to patient On Hold 07/06/2017 [facility] Morphine Sulfate 30 MG Extended Release Tablet [MS Contin] 30 mg=1 tab, PO, BID, # 10 tab, 0 Refill(s), given to patient On Hold 07/06/2017 [facility] MS Contin 30 mg, 1 tab, Route: PO, Drug form: ERTAB, [id number], Dosing Weight 56.818, kg, Start date: 07/06/17 14:00:00 CDT, Stop date: 08/05/17 14:00:00 CDTNotes: Do not crush (Same as:Oramorph SR, MS Contin) Inactive 07/06/2017 [facility] Folic Acid 1 MG Oral Tablet 1 mg=1 tab, PO, Daily, # 30 tab, 0 Refill(s), [facility] [id number] On Hold 07/06/2017 [facility] Docusate Sodium 50 MG / sennosides, SNF 8.6 MG Oral Tablet 2 tab, PO, BID, PRN Constipation, X 14 day, # 56 tab, 0 Refill(s), Pharmacy: [facility] [id number] On Hold 07/06/2017 [facility] diphenhydrAMINE 25 mg oral tablet 25 mg=1 tab, PO, TID, PRN Allergic reaction, X 5 day, # 15 tab, 0 Refill(s), Pharmacy: [facility] [id number] On Hold 07/06/2017 [facility] hydrocortisone topical 1% cream 1 appl, TOP, TID, X 7 day, # 60 gm, 0 Refill(s), Pharmacy: [facility] [id number] On Hold 07/06/2017 [facility] levofloxacin 250 mg oral tablet 750 mg=3 tab, PO, [id number], X 3 day, # 9 tab, 0 Refill(s), Pharmacy: [facility] [id number] On Hold 07/06/2017 [facility] Multiple Vitamins oral tablet 1 tab, PO, Daily, # 30 tab, 0 Refill(s), Pharmacy: [facility] [id number] On Hold 07/06/2017 [facility] Folic Acid 1 MG Oral Tablet 1 mg=1 tab, PO, Daily, 0 Refill(s) Inactive 07/06/2017 [facility] MS Contin 30 mg, 1 tab, Route: PO, Drug form: ERTAB, Q12H, Dosing Weight 56.818, kg, Start date: 07/06/17 6:00:00 CDT, Duration: 30 day, Stop date: 08/04/17 18:00:00 CDTNotes: Do not crush (Same as:Oramorph SR, MS Contin) No Longer Active 07/06/2017 [facility] MS Contin 30 mg, 1 tab, Route: PO, Drug form: ERTAB, ONCE, Dosing Weight 56.818, kg, Start date: 07/06/17 2:00:00 CDT, Stop date: 07/06/17 2:00:00 CDTNotes: Do not crush (Same as:Oramorph SR, MS Contin) Inactive 07/06/2017 [facility] MS Contin 30 mg, 1 tab, Route: PO, Drug form: ERTAB, ONCE, Dosing Weight 56.818, kg, Priority: NOW, Start date: 07/05/17 20:42:00 CDT, Stop date: 07/05/17 20:42:00 CDTNotes: Do not crush (Same as:Oramorph SR, MS Contin) Inactive 07/06/2017 [facility] Morphine 2 mg, 1 mL, Route: IVP, Drug form: SOLN, Q3H, Dosing Weight 56.818, kg, PRN Pain Score 7-10, Start date: 07/05/17 19:48:00 CDT, Duration: 30 day, Stop date: 08/04/17 19:47:00 CDT No Longer Active 07/06/2017 [facility] MS Contin 30 mg, 1 tab, Route: PO, Drug form: ERTAB, Q12H, Dosing Weight 56.818, kg, Start date: 07/05/17 18:00:00 CDT, Duration: 30 day, Stop date: 08/04/17 6:00:00 CDTNotes: Do not crush (Same as:Oramorph SR, MS Contin) Inactive 07/05/2017 [facility] Benadryl 25 mg, 1 tab, Route: PO, Drug form: TAB, TID, Dosing Weight 56.818, kg, PRN Allergic reaction, Start date: 07/05/17 17:27:00 CDT, Duration: 30 day, Stop date: 08/04/17 17:26:00 CDT No Longer Active 07/05/2017 [facility] Morphine 30 mg, 2 tab, Route: PO, Drug form: TAB, Q4H, Dosing Weight 56.818, kg, PRN Pain Score 4-6, Start date: 07/05/17 17:09:00 CDT, Stop date: 08/04/17 17:08:00 CDTNotes: (Same as:MORPhine Sulfate) No Longer Active 07/05/2017 [facility] Morphine 2 mg, 1 mL, Route: IVP, Drug form: SOLN, Q3H, Dosing Weight 56.818, kg, PRN Pain Score 7-10, Start date: 07/05/17 17:07:00 CDT, Duration: 30 day, Stop date: 08/04/17 17:06:00 CDT Inactive 07/05/2017 [facility] Levaquin 750 mg, Route: PO, Drug form: TAB, [id number], Dosing Weight 56.818, kg, Start date: 07/05/17 12:00:00 CDT, Duration: 7 day, Stop date: 07/11/17 12:00:00 CDT, ABX Indication: Pneumonia Inactive 07/05/2017 [facility] Streptococcus pneumoniae serotype 1 capsular antigen diphtheria [id number] protein conjugate vaccine / Streptococcus pneumoniae serotype 14 capsular antigen diphtheria [id number] protein conjugate vaccine / Streptococcus pneumoniae serotype 18C capsular antigen d 0.5 mL, Route: IM, Drug Form: INJ, Daily, Start date: 07/05/17 9:00:00 CDT, Duration: 1 doses or times, Stop date: 07/05/17 9:00:00 CDTNotes: Shake well prior to use (Same as: Prevmarilee 13) Inactive 07/05/2017 [facility] Docusate Sodium 50 MG / sennosides, SNF 8.6 MG Oral Tablet 2 tab, Route: PO, Drug Form: TAB, Dosing Weight 56.818, kg, BID, Start date: 07/05/17 9:00:00 CDT, Duration: 30 day, Stop date: 08/03/17 17:00:00 CDTNotes: (Same as Cristi-Ana) Equiv. to Nasima-Colace. No Longer Active 07/05/2017 [facility] hydrocortisone topical 1% cream 1 appl, Route: TOP, TID, Drug form: CRM, Start date: 07/04/17 17:00:00 CDT, Duration: 30 day, Stop date: 08/03/17 13:00:00 CDT No Longer Active 07/04/2017 [facility] Levaquin 750 mg, 3 tab, Route: PO, Drug form: TAB, [id number], Dosing Weight 56.818, kg, Start date: 07/04/17 15:00:00 CDT, Duration: 7 day, Stop date: 07/10/17 15:00:00 CDT, ABX Indication: Other (specify in Comme nts)Notes: Do not give w/antacids, dairy pdt & minerals Take 1 hr before or 2 hr after dairy pdt (Same as:Levaquin) No Longer Active 07/04/2017 [facility] *ATTN RN please do not admin vanc dose until trough drawn *ATTN RN please do not admin vanc dose until trough drawn, *ATTN RN, Drug form: MISC, Route: MISC, ONCE, 07/04/17 12:30:00 CDT, Stop date: 07/04/17 12:30:00 CDT Inactive 07/04/2017 [facility] Omnipaque 300 75 ml, Route: IV, Drug Form: SOLN, Dosing Weight 56.818, kg, ONCE, Start date: 07/04/17 11:35:00 CDT, Stop date: 07/04/17 11:35:00 CDTNotes: (Same as:Omnipaque 350). WASTE: F/P - Black; E - Municipal Trash Bin Inactive 07/04/2017 [facility] Vitamin C 500 mg, 1 tab, Route: PO, Drug form: TAB, Daily, Dosing Weight 56.818, kg, Start date: 07/04/17 9:00:00 CDT, Duration: 30 day, Stop date: 08/02/17 9:00:00 CDTNotes: (Same as: Vitamin C) No Longer Active 07/04/2017 [facility] Vitamin B12 1,000 microgram, 2 tab, Route: PO, Drug form: TAB, Daily, Dosing Weight 56.818, kg, Start date: 07/04/17 9:00:00 CDT, Duration: 30 day, Stop date: 08/02/17 9:00:00 CDTNotes: (Same As: Vitamin B12) No Longer Active 07/04/2017 [facility] Riboflavin 100 mg, 1 tab, Route: PO, Drug form: TAB, Daily, Dosing Weight 56.818, kg, Start date: 07/04/17 9:00:00 CDT, Duration: 30 day, Stop date: 08/02/17 9:00:00 CDTNotes: (Same as: Vitamin B2) No Longer Active 07/04/2017 [facility] pyridoxine 100 mg, 1 tab, Route: PO, Drug form: TAB, Daily, Dosing Weight 56.818, kg, Start date: 07/04/17 9:00:00 CDT, Duration: 30 day, Stop date: 08/02/17 9:00:00 CDTNotes: (Same as: Vitamin B6) No Longer Active 07/04/2017 [facility] Folic Acid 1 mg, 1 tab, Route: PO, Drug form: TAB, Daily, Dosing Weight 56.818, kg, Start date: 07/04/17 9:00:00 CDT, Duration: 30 day, Stop date: 08/02/17 9:00:00 CDTNotes: (Same as: Folvite) No Longer Active 07/04/2017 [facility] vancomycin 1.25 gm, 250 mL, Route: IVPB, Drug form: INJ, ABXQ8H, Start date: 07/03/17 21:00:00 CDT, Duration: 30 day, Stop date: 08/02/17 13:30:00 CDT, ABX Indication: PneumoniaNotes: TIME CRITICAL MEDICATION Same as: Vancocin-NS (premixed) Infusion rate 2001 mg: infuse over 2.5 hours No Longer Active 07/04/2017 [facility] meropenem 500 mg, Route: IVPB, ABXQ6H, Dosing Weight 56.818, kg, CrCL >=50ml/min, Extended infusion, infuse over 3 hours, Start date: 07/03/17 17:00:00 CDT, Duration: 10 day, Stop date: 07/13/17 11:00:00 CDT, ABX Indication: PneumoniaNotes: Same as Merrem MEDICATION WASTE Product Size: 500 mg Product Wasted: ___ mg No Longer Active 07/03/2017 [facility] Cholecalciferol 1,000 IntlUnit, 1 tab, Route: PO, Drug form: TAB, Daily, Dosing Weight 56.818, kg, Start date: 07/03/17 9:00:00 CDT, Duration: 30 day, Stop date: 08/01/17 9:00:00 CDTNotes: Same as : Vitamin D3 No Longer Active 07/03/2017 [facility] Tylenol 650 mg, 2 tab, Route: PO, Drug form: TAB, Q4H, Dosing Weight 56.818, kg, PRN For Temp > 100.4 F, Start date: 07/02/17 23:36:00 CDT, Duration: 30 day, Stop date: 08/01/17 23:35:00 CDTNotes: Do not exceed 4 gm/day. (Same as: Tylenol) No Longer Active 07/03/2017 [facility] Docusate Sodium 100 MG Oral Capsule 100 mg, 1 cap, Route: PO, Drug form: CAP, BID, Dosing Weight 56.818, kg, Start date: 07/02/17 17:00:00 CDT, Duration: 30 day, Stop date: 08/01/17 9:00:00 CDTNotes: (Same as: Colace) (Do Not Crush) No Longer Active 07/02/2017 [facility] gabapentin 300 MG Oral Capsule 300 mg, 1 cap, Route: PO, Drug form: CAP, Q8H, Dosing Weight 56.818, kg, Start date: 07/02/17 16:00:00 CDT, Duration: 30 day, Stop date: 08/01/17 8:00:00 CDTNotes: (Same as: Neurontin) No Longer Active 07/02/2017 [facility] Folic Acid 1 mg, 1 tab, Route: PO, Drug form: TAB, QID, Dosing Weight 56.818, kg, Start date: 07/02/17 13:00:00 CDT, Duration: 30 day, Stop date: 08/01/17 9:00:00 CDTNotes: (Same as: Folvite) No Longer Active 07/02/2017 [facility] Zofran 4 mg, 2 mL, Route: IVP, Drug form: INJ, Q8H, Dosing Weight 56.818, kg, PRN Nausea, Start date: 07/02/17 10:59:00 CDT, Duration: 30 day, Stop date: 08/01/17 10:58:00 CDTNotes: (Same as: Zofran) MEDICATION WASTE Product Size: 4 mg Product Wasted: _0__ mg No Longer Active 07/02/2017 [facility] Benadryl 50 mg, 1 mL, Route: IV, Drug form: INJ, Q6H, Dosing Weight 56.818, kg, PRN as needed for itching, Start date: 07/01/17 21:21:00 CDT, Duration: 30 day, Stop date: 07/31/17 21:20:00 CDTNotes: (Same as: Benadryl) No Longer Active 07/02/2017 [facility] Benadryl 25 mg, 1 tab, Route: PO, Drug form: TAB, TID, Dosing Weight 56.818, kg, PRN Itching, Start date: 07/01/17 19:36:00 CDT, Duration: 30 day, Stop date: 07/31/17 19:35:00 CDT Inactive 07/02/2017 [facility] vancomycin 1,250 mg, 250 mL, Route: IVPB, Drug form: INJ, ABXQ8H, Start date: 07/01/17 16:00:00 CDT, Stop date: 07/31/17 10:00:00 CDT, ABX Indication: PneumoniaNotes: TIME CRITICAL MEDICATION Same as: Vancocin-NS (premixed) Infusion rate 2001 mg: infuse over 2.5 hours No Longer Active 07/01/2017 [facility] Morphine 30 mg, 30 mL, Route: IV, Initial Loading Dose: 2 mg, [employer]ERAPE[employer]IC [employer]GRAM WORKER Dose: 2 mg, THERAPE[employer] PROGRAM WORKER Lockout: 10 minutes, Continuous Basal Rate: 0 mg, 4 Hour Limit (In MG): 48, Drug Form: INJ, Continuous, Start date: 07/01/17 13: 00:00 CDTNotes: Dose: Delay: Basal rate: 4hr limit: (Same as:Berna) No Longer Active 07/01/2017 [facility] Naloxone 0.04 mg, 0.04 mL, Route: IVP, Drug form: INJ, Q2MIN, Dosing Weight 56.818, kg, PRN Narcotic Reversal, Start date: 07/01/17 12:41:00 CDT, Duration: 30 day, Stop date: 07/31/17 12:40:00 CDTNotes: (Same as: Narcan) MEDICATION WASTE Product Size: 2 mg Product Wasted: ___ mg No Longer Active 07/01/2017 [facility] Morphine Sulfate 15 MG Oral Tablet 30 mg=2 tab, PO, Q4H, PRN Pain, 0 Refill(s) On Hold 07/01/2017 [facility] cefepime 1 gm, Route: IVPB, ABXQ8H, Dosing Weight 59.091, kg, (CrCl >/=50 ml/min), Start date: 07/01/17 4:00:00 CDT, Duration: 10 day, Stop date: 07/10/17 20:00:00 CDT, ABX Indication: PneumoniaNotes: (Same As: Maxipime) MEDICATION WASTE Product Size: 1000 mg Product Wasted: ___ mg No Longer Active 07/01/2017 [facility] Vancomycin 1,500 mg, 250 mL, Route: IVPB, Drug form: INJ, ONCE, Dosing Weight 59.091, kg, Start date: 07/01/17 4:00:00 CDT, Stop date: 07/01/17 4:00:00 CDT, Pharmacy to dose, ABX Indication: PneumoniaNotes: TIME C RITICAL MEDICATION Same as: Vancocin-NS (premixed) Infusion rate 2001 mg: infuse over 2.5 hours Inactive 07/01/2017 [facility] sodium chloride 0.9% INJ 250 mL 250 mL, Rate: body recall instructor for use with blood product administration, Dosing Weight 59.091, kg, Route: IV, Total Volume: 250, Start Date: 07/01/17 3:37:00 CDT, Duration: 30 day, Stop date: 07/31/17 3:36:00 CDT, Replace Every: 24 hr No Longer Active 07/01/2017 [facility] Saline Flush 0.9% 10 ml, Route: IVP, Drug Form: INJ, Dosing Weight 59.091, kg, PRN, PRN Line Flush, Start date: 07/01/17 3:28:00 CDT, Duration: 30 day, Stop date: 07/31/17 3:27:00 CDTNotes: (Same as: BD Posiflush) No Longer Active 07/01/2017 [facility] sodium chloride 0.9% 1000 ml INJ 1,000 mL 1,000 mL, Rate: 150 ml/hr, Infuse over: 6.7 hr, Route: IV, Dosing Weight 59.091 kg, Total Volume: 1,000, Start date: 07/01/17 3:28:00 CDT, Duration: 30 day, Stop date: 07/31/17 3:27:00 CDT No Longer Active 07/01/2017 [facility] Ondansetron 4 mg, 2 mL, Route: IVP, Drug form: INJ, Q6H, Dosing Weight 59.091, kg, PRN Nausea & Vomiting, Start date: 07/01/17 3:28:00 CDT, Duration: 30 day, Stop date: 07/31/17 3:27:00 CDTNotes: (Same as: Zofran) MEDICATION WASTE Product Size: 4 mg Product Wasted: ___ mg No Longer Active 07/01/2017 [facility] Morphine 4 mg, 1 mL, Route: IVP, Drug form: SOLN, Q3H, Dosing Weight 59.091, kg, PRN Pain Score 7-10, Start date: 07/01/17 3:28:00 CDT, Duration: 30 day, Stop date: 07/31/17 3:27:00 CDTNotes: (Same as:MORPhine Sulfate) Inactive 07/01/2017 [facility] Ketorolac 30 mg, Route: IVP, Drug form: INJ, ONCE, Dosing Weight 59.091, kg, Start date: 07/01/17 3:04:00 CDT, Duration: 1 doses or times, Stop date: 07/01/17 3:04:00 CDT Inactive 07/01/2017 [facility] Zofran 4 mg, Route: IVP, Drug form: INJ, ONCE, Dosing Weight 59.091, kg, Priority: STAT, Start date: 07/01/17 0:51:00 CDT, Stop date: 07/01/17 0:51:00 CDT Inactive 07/01/2017 [facility] Morphine 8 mg, Route: IVP, ONCE, Dosing Weight 59.091, kg, Priority: STAT, Start date: 07/01/17 0:51:00 CDT, Stop date: 07/01/17 0:51:00 CDT Inactive 07/01/2017 [facility] Morphine 8 mg, Route: IVP, ONCE, Dosing Weight 59.091, kg, Priority: STAT, Start date: 06/30/17 23:32:00 CDT, Stop date: 06/30/17 23:32:00 CDT Inactive 07/01/2017 [facility] Morphine 8 mg, Route: IVP, ONCE, Dosing Weight 59.091, kg, Priority: STAT, Start date: 06/30/17 23:19:00 CDT, Stop date: 06/30/17 23:19:00 CDT Inactive 07/01/2017 [facility] Ondansetron 4 mg, Route: IVP, ONCE, Dosing Weight 59.091, kg, Priority: STAT, Start date: 06/30/17 23:19:00 CDT, Stop date: 06/30/17 23:19:00 CDT Inactive 07/01/2017 [facility] Sodium Chloride 0.9% (Bolus) IV 1,000 mL, Infuse Over: 1 hr, Route: IV, ONCE, Priority: STAT, Dosing Weight 59.091 kg, Start date: 06/30/17 23:19:00 CDT, Duration: 1 doses or times, Stop date: 06/30/17 23:19:00 CDT Inactive 07/01/2017 [facility] Saline Flush 0.9% 10 mL, Route: IVP, Drug Form: INJ, Dosing Weight 59.091, kg, PRN, PRN Line Flush, Start date: 06/30/17 23:19:00 CDT, Duration: 30 day, Stop date: 07/30/17 23:18:00 CDTNotes: (Same as: BD Posiflush) No Longer Active 07/01/2017 [facility] Sodium Chloride 0.9% (Bolus) IV 1,000 mL, 1000 ml/hr, Infuse Over: 1 hr, Route: IV, 1,000, Drug form: INJ, ONCE, Priority: STAT, Dosing Weight 59.091 kg, Start date: 06/30/17 16:15:00 CDT, Duration: 1 doses or times, Stop date: 06/30/17 16:15:00 CDT Inactive 06/30/2017 [facility] Saline Flush 0.9% 10 mL, Route: IVP, Drug Form: INJ, Dosing Weight 59.091, kg, PRN, PRN Line Flush, Start date: 06/30/17 16:15:00 CDT, Duration: 30 day, Stop date: 07/30/17 16:14:00 CDTNotes: (Same as: BD Posiflush) No Longer Active 06/30/2017 [facility] morphine 15 mg oral tablet, extended release 60 mg, 4 tab, Route: PO, Drug form: ERTAB, Q12H, Dosing Weight 58.591, kg, Start date: 06/05/17 21:00:00 CDT, Duration: 30 day, Stop date: 07/05/17 9:00:00 CDTNotes: Do not crush (Same as:Oramorph SR, MS Contin) Inactive 06/06/2017 [facility] Morphine Sulfate 15 MG Oral Tablet 15 mg=1 tab, PO, Q4H, PRN Pain Score 6-10, X 7 day, # 42 tab, 0 Refill(s) Active 06/05/2017 [facility] Methocarbamol 500 MG Oral Tablet [Robaxin] 1,000 mg, PO, TID, PRN Muscle Spasms, X 7 day, # 21 tab, 0 Refill(s), Pharmacy: [facility] [id number] Active 06/05/2017 [facility] gabapentin 300 MG Oral Capsule 300 mg=1 cap, PO, Q8H, # 21 cap, 0 Refill(s), Pharmacy: [facility] [id number] Active 06/05/2017 [facility] Folic Acid 1 MG Oral Tablet 1 mg=1 tab, PO, QID, # 28 tab, 0 Refill(s), [place] [facility] [id number] [place] 06/05/2017 [facility] doxycycline hyclate 100 MG Oral Capsule 100 mg=1 cap, PO, [id number], X 7 day, # 14 cap, 0 Refill(s), Pharmacy[place] [facility] [id number] Active 06/05/2017 [facility] D3 1000 oral tablet 1,000 IntlUnit=1 tab, PO, Daily, # 7 tab, 0 Refill(s), Pharmacy: [facility] [id number] Active 06/05/2017 [facility] buPROPion 150 mg/24 hours (XL) oral tablet, extended release 300 mg=2 tab, PO, QAM, # 14 tab, 0 Refill(s), Pharmacy: [facility] [id number] Active 06/05/2017 [facility] polyethylene glycol 3350 oral powder for reconstitution 17 gm, PO, Daily, PRN Constipation, X 7 day, # 7 ea, 0 Refill(s), Pharmacy: [facility] [id number] Active 06/05/2017 [facility] Lidocaine 0.05 MG/MG Transdermal Patch 3 patch, TOP, Daily, # 21 patch, 0 Refill(s), Pharmacy: [facility] [id number] Active 06/05/2017 [facility] Docusate Sodium 100 MG Oral Capsule 100 mg=1 cap, PO, BID, # 14 cap, 0 Refill(s), Pharmacy: [facility] [id number] Active 06/05/2017 [facility] Ondansetron 4 MG Oral Tablet [Zofran] 4 mg=1 tab, PO, Q8H, PRN Nausea/vomiting, # 21 tab, 0 Refill(s), Pharmacy: [facility] [id number] Active 06/05/2017 [facility] naproxen 250 mg oral tablet 250 mg=1 tab, PO, BID, X 7 day, # 14 tab, 0 Refill(s), Pharmacy: [facility] [id number] Active 06/05/2017 [facility] Morphine Sulfate 30 MG Extended Release Capsule 30 mg, PO, Q12H, # 14 cap, 0 Refill(s) Active 06/05/2017 [facility] Morphine 3 mg, 1.5 mL, Route: IV, Drug form: SOLN, Q3H, Dosing Weight 58.591, kg, PRN Pain Score 7-10, Start date: 06/05/17 10:43:00 CDT, Duration: 30 day, Stop date: 07/05/17 10:42:00 CDT Inactive 06/05/2017 [facility] Morphine Sulfate 15 MG Oral Tablet 30 mg, 2 tab, Route: PO, Drug form: TAB, Q4H, Dosing Weight 58.591, kg, PRN Pain Score 4-6, Start date: 06/05/17 10:24:00 CDT, Duration: 30 day, Stop date: 07/05/17 10:23:00 CDTNotes: (Same as:MORPhine Sulfate) Inactive 06/05/2017 [facility] morphine 15 mg oral tablet, extended release 30 mg, 2 tab, Route: PO, Drug form: ERTAB, Q12H, Dosing Weight 58.591, kg, Start date: 06/04/17 21:00:00 CDT, Duration: 30 day, Stop date: 07/04/17 9:00:00 CDTNotes: Do not crush (Same as:Oramorph SR, MS Contin) No Longer Active 06/05/2017 [facility] Doxycycline 100 mg, 1 cap, Route: PO, Drug form: CAP, [id number], Dosing Weight 58.591, kg, Start date: 06/04/17 19:00:00 CDT, Duration: 30 day, Stop date: 07/04/17 7:00:00 CDTNotes: (Same as: Vibramycin) No milk/ antacids/iron. No Longer Active 06/05/2017 [facility] MORPhine sulfate THERAPEUTIC PROGRAM WORKER 30 mg/30 ml INJ syringe 30 mg 30 mg, 30 mL, Route: IV, Initial Loading Dose: 2 mg, THERAPEUTIC PROGRAM WORKER Dose: 1.5 mg, THERAPEUTIC PROGRAM WORKER Lockout: 8 minutes, Continuous Basal Rate: 3 mg, 4 Hour Limit (In MG): 30, Drug Form: INJ, Continuous, Start date: 06/04/17 10:30:00 CDT, Duration: 30 day, Stop date: 07/04/17...Notes: Dose: Delay: Basal rate: 4hr limit: (Same as:Cristin-Kelly) No Longer Active 06/04/2017 [facility] Morphine 30 mg, 30 mL, Route: IV, Initial Loading Dose: 2 mg, THERAPEUTIC PROGRAM WORKER Dose: 1.5 mg, THERAPEUTIC PROGRAM WORKER Lockout: 8 minutes, Continuous Basal Rate: 3 mg, 4 Hour Limit (In MG): 30, Continuous, Start date: 06/04/17 10:00:00 CDT, Dura tion: 30 day, Stop date: 07/04/17 9:59:00 CDT Inactive 06/04/2017 [facility] Morphine Sulfate 15 MG Oral Tablet 15 mg, 1 tab, Route: PO, Drug form: TAB, Q4H, Dosing Weight 58.591, kg, PRN Pain Score 4-6, Start date: 06/04/17 9:47:00 CDT, Stop date: 07/04/17 9:46:00 CDTNotes: (Same as:MORPhine Sulfate) No Longer Active 06/04/2017 [facility] Naloxone 0.04 mg, 0.1 mL, Route: IVP, Drug form: INJ, Q2MIN, Dosing Weight 58.591, kg, PRN Narcotic Reversal, Start date: 06/04/17 9:46:00 CDT, Duration: 30 day, Stop date: 07/04/17 9:45:00 CDTNotes: Same as Narcan No Longer Active 06/04/2017 [facility] Lidocaine 0.05 MG/MG Transdermal Patch 3 patch, Route: TOP, Daily, Drug form: FILM, Start date: 06/04/17 9:00:00 CDT, Duration: 30 day, Stop date: 07/03/17 9:00:00 CDTNotes: (Same as: Lidoderm) No Longer Active 06/04/2017 [facility] morphine 15 mg oral tablet, extended release 60 mg, 4 tab, Route: PO, Drug form: ERTAB, Q12H, Dosing Weight 58.591, kg, Start date: 06/03/17 21:00:00 CDT, Duration: 30 day, Stop date: 07/03/17 9:00:00 CDTNotes: Do not crush (Same as:Oramorph SR, MS Contin) No Longer Active 06/04/2017 [facility] Morphine 4 mg, 1 mL, Route: IVP, Drug form: INJ, Q4H, Dosing Weight 58.591, kg, PRN Pain Score 7-10, Start date: 06/03/17 14:32:00 CDT, Duration: 30 day, Stop date: 07/03/17 14:31:00 CDTNotes: (Same as:MORPhine Sulfate) No Longer Active 06/03/2017 [facility] Morphine Sulfate 15 MG Oral Tablet 45 mg, 3 tab, Route: PO, Drug form: TAB, Q4H, Dosing Weight 58.591, kg, PRN Pain Score 4-6, Start date: 06/03/17 14:31:00 CDT, Duration: 30 day, Stop date: 07/03/17 14:30:00 CDTNotes: (Same as:MORPhine Sulfate) No Longer Active 06/03/2017 [facility] Morphine 2 mg, 1 mL, Route: IVP, Drug form: SOLN, ONCE, Dosing Weight 58.591, kg, Start date: 06/03/17 14:31:00 CDT, Stop date: 06/03/17 14:31:00 CDT Inactive 06/03/2017 [facility] Morphine 1 mg, 0.5 mL, Route: IV, Drug form: SOLN, ONCE, Dosing Weight 58.591, kg, Start date: 06/03/17 1:32:00 CDT, Stop date: 06/03/17 1:32:00 CDT Inactive 06/03/2017 [facility] Morphine 3 mg, 0.75 mL, Route: IVP, Drug form: INJ, ONCE, Dosing Weight 58.591, kg, Priority: NOW, Start date: 06/02/17 15:09:00 CDT, Stop date: 06/02/17 15:09:00 CDTNotes: (Same as:MORPhine Sulfate) Inactive 06/02/2017 [facility] Cholecalciferol 1,000 IntlUnit, 1 tab, Route: PO, Drug form: TAB, Daily, Dosing Weight 58.591, kg, Start date: 06/01/17 9:00:00 CDT, Duration: 30 day, Stop date: 06/30/17 9:00:00 CDTNotes: Same as : Vitamin D3 No Longer Active 06/01/2017 [facility] Morphine 3 mg, 0.75 mL, Route: IVP, Drug form: INJ, Q4H, Dosing Weight 58.591, kg, PRN Pain Score 7-10, Start date: 06/01/17 8:14:00 CDT, Duration: 30 day, Stop date: 07/01/17 8:13:00 CDTNotes: (Same as:MORPhine Sulfate) No Longer Active 06/01/2017 [facility] Morphine 2 mg, Route: IVP, Q4H, Dosing Weight 58.591, kg, PRN Pain Score 7-10, Start date: 06/01/17 8:13:00 CDT, Duration: 30 day, Stop date: 07/01/17 8:12:00 CDT Inactive 06/01/2017 [facility] Morphine Sulfate 15 MG Oral Tablet 15 mg, 1 tab, Route: PO, Drug form: TAB, Q4H, Dosing Weight 58.591, kg, PRN Pain Score 4-6, Start date: 06/01/17 8:13:00 CDT, Duration: 30 day, Stop date: 07/01/17 8:12:00 CDTNotes: (Same as:MORPhine Sulfate) No Longer Active 06/01/2017 [facility] tramadol hydrochloride 50 MG Oral Tablet 50 mg, 1 tab, Route: PO, Drug form: TAB, Q6H, Dosing Weight 58.591, kg, Start date: 06/01/17 0:00:00 CDT, Duration: 30 day, Stop date: 06/30/17 18:00:00 CDT, >50 kg; Pediatric dosingNotes: Not to exceed 400mg/day. (Same As: Ultram) No Longer Active 06/01/2017 [facility] morphine 15 mg oral tablet, extended release 30 mg, 2 tab, Route: PO, Drug form: ERTAB, Q12H, Dosing Weight 58.591, kg, Start date: 05/31/17 21:00:00 CDT, Stop date: 06/30/17 9:00:00 CDTNotes: Do not crush (Same as:Oramorph SR, MS Contin) No Longer Active 06/01/2017 [facility] D5W 1/4NS 1000 ml INJ 1,000 mL 1,000 mL, Rate: 125 ml/hr, Infuse over: 8 hr, Route: IV, Dosing Weight 58.591 kg, Total Volume: 1,000, Start date: 05/31/17 9:41:00 CDT, Duration: 30 day, Stop date: 06/30/17 9:40:00 CDT No Longer Active 05/31/2017 [facility] Morphine 30 mg, 30 mL, Route: IV, Initial Loading Dose: 2 mg, THERAPE[employer]IC [employer]GRAM WORKER Dose: 2 mg, THERAPE[employer]IC PROGRAM WORKER Lockout: 8 minutes, Continuous Basal Rate: 2 mg, 4 Hour Limit (In MG): 30, Drug Form: INJ, Continuous, Start date: 05/30/17 13:3 0:00 CDTNotes: Dose: Delay: Basal rate: 4hr limit: (Same as:Cristin-Kelly) No Longer Active 05/30/2017 [facility] sodium chloride 0.9% INJ 250 mL 250 mL, Rate: body recall instructor for use with blood product administration, Dosing Weight 58.591, kg, Route: IV, Total Volume: 250, Start Date: 05/30/17 0:45:00 CDT, Duration: 30 day, Stop date: 06/29/17 0:44:00 CDT, Replace Every: 24 hr No Longer Active 05/30/2017 [facility] Lovenox 40 mg, 0.4 mL, Route: SUB-Q, Drug form: INJ, [id number], Dosing Weight 58.591, kg, Start date: 05/29/17 17:00:00 CDT, Duration: 30 day, Stop date: 06/27/17 17:00:00 CDTNotes: (Same as: Lovenox) No Longer Active 05/29/2017 [facility] potassium chloride 20 mEq oral tablet, extended release 40 mEq, 2 tab, Route: PO, Drug form: ERTAB, Daily, Dosing Weight 58.591, kg, Start date: 05/29/17 9:00:00 CDT, Duration: 30 day, Stop date: 06/27/17 9:00:00 CDTNotes: (Same as: K-Dur 20) "Do Not Crush" With food and full glass of water No Longer Active 05/29/2017 [facility] Potassium aminobenzoate 2,000 mg, Route: PO, QID, Dosing Weight 58.591, kg, Start date: 05/28/17 21:00:00 CDT, Duration: 30 day, Stop date: 06/27/17 17:00:00 CDT No Longer Active 05/29/2017 [facility] D5W 1/2NS 1,000 mL 1,000 mL, Rate: 125 ml/hr, Infuse over: 8 hr, Route: IV, Dosing Weight 58.591 kg, Total Volume: 1,000, Start date: 05/28/17 18:10:00 CDT, Duration: 30 day, Stop date: 06/27/17 18:09:00 CDT No Longer Active 05/28/2017 [facility] D3 1000 oral tablet 1,000 IntlUnit=1 tab, PO, Daily, 0 Refill(s) No Longer Active 05/28/2017 [facility] Probiotic Formula oral capsule 1 cap, PO, Daily, 0 Refill(s) Active 05/28/2017 [facility] Vitron-C 1 tab, PO, , 0 Refill(s) Active 05/28/2017 [facility] Doxycycline 120 mg, 0 Refill(s) No Longer Active 05/28/2017 [facility] ferrous sulfate PO, 0 Refill(s) Inactive 05/28/2017 [facility] Vitamin C Daily, 0 Refill(s) Inactive 05/28/2017 [facility] Zofran 0 Refill(s) No Longer Active 05/28/2017 [facility] multivitamin Daily, 0 Refill(s) Active 05/28/2017 [facility] gabapentin PO, 0 Refill(s) No Longer Active 05/28/2017 [facility] Robaxin 1,000 mg, 0 Refill(s) No Longer Active 05/28/2017 [facility] D5W 1/2NS 1,000 mL 1,000 mL, Rate: 100 ml/hr, Infuse over: 10 hr, Route: IV, Dosing Weight 58.591 kg, Total Volume: 1,000, Start date: 05/28/17 8:09:00 CDT, Duration: 30 day, Stop date: 06/27/17 8:08:00 CDT Inactive 05/28/2017 [facility] Morphine 30 mL, Route: IV, Initial Loading Dose: 2 mg, THERAPEUTIC PROGRAM WORKER Dose: 3 mg, THERAPEUTIC PROGRAM WORKER Lockout: 8 minutes, Continuous Basal Rate: 1.5 mg, 4 Hour Limit (In MG): 30, Drug Form: INJ, Continuous, Start date: 05/27/17 19:00:00 CDT Inactive 05/28/2017 [facility] Zofran 4 mg, 2 mL, Route: IVP, Drug form: INJ, Q8H, Dosing Weight 58.591, kg, PRN Nausea, Start date: 05/27/17 18:50:00 CDT, Duration: 30 day, Stop date: 06/26/17 18:49:00 CDTNotes: (Same as: Zofran) MEDICATION WASTE Product Size: 4 mg Product Wasted: ___ mg No Longer Active 05/27/2017 [facility] Morphine 5 mg, 1.25 mL, Route: IVP, Drug form: INJ, Q4H, Dosing Weight 58.591, kg, PRN Pain Score 7-10, Start date: 05/27/17 18:28:00 CDT, Duration: 30 day, Stop date: 06/26/17 18:27:00 CDTNotes: (Same as:MORPhine Sulfate) No Longer Active 05/27/2017 [facility] Docusate Sodium 100 MG Oral Capsule [Colace] 100 mg, 1 cap, Route: PO, Drug form: CAP, BID, Dosing Weight 58.591, kg, Start date: 05/27/17 17:00:00 CDT, Duration: 30 day, Stop date: 06/26/17 9:00:00 CDTNotes: (Same as: Colace) (Do Not Crush) No Longer Active 05/27/2017 [facility] Naprosyn 500 mg, 1 tab, Route: PO, Drug form: TAB, BID, Dosing Weight 58.591, kg, Start date: 05/27/17 17:00:00 CDT, Duration: 30 day, Stop date: 06/26/17 9:00:00 CDTNotes: (Same as: Naprosyn) Take with food. No Longer Active 05/27/2017 [facility] gabapentin 300 MG Oral Capsule 300 mg, 1 cap, Route: PO, Drug form: CAP, Q8H, Dosing Weight 58.591, kg, (CrCl > 60 ml/min), Start date: 05/27/17 16:00:00 CDT, Duration: 30 day, Stop date: 06/26/17 8:00:00 CDTNotes: (Same as: Neurontin) No Longer Active 05/27/2017 [facility] Robaxin 500 mg, 1 tab, Route: PO, Drug form: TAB, TID, Dosing Weight 58.591, kg, Start date: 05/27/17 13:00:00 CDT, Duration: 30 day, Stop date: 06/26/17 9:00:00 CDTNotes: (Same as:Robaxin) No Longer Active 05/27/2017 [facility] tramadol hydrochloride 50 MG Oral Tablet 100 mg, 2 tab, Route: PO, Drug form: TAB, Q6H, Dosing Weight 58.591, kg, Start date: 05/27/17 12:00:00 CDT, Duration: 30 day, Stop date: 06/26/17 6:00:00 CDT, >50 kg; Pediatric dosingNotes: Not to exceed 400mg/day. (Same As: Ultram) No Longer Active 05/27/2017 [facility] Miralax 17 gm, 1 pkt, Route: PO, Drug form: PWDR, Daily, Dosing Weight 58.591, kg, PRN Constipation, Start date: 05/27/17 11:25:00 CDT, Duration: 30 day, Stop date: 06/26/17 11:24:00 CDTNotes: Dissolve in 8 oz of water or juice. (Same as: Miralax) No Longer Active 05/27/2017 [facility] Morphine 4 mg, 1 mL, Route: IVP, Drug form: INJ, ONCE, Dosing Weight 58.591, kg, Start date: 05/27/17 10:40:00 CDT, Stop date: 05/27/17 10:40:00 CDTNotes: (Same as:MORPhine Sulfate) Inactive 05/27/2017 [facility] Folic Acid 1 mg, 1 tab, Route: PO, Drug form: TAB, Daily, Dosing Weight 56.818, kg, Start date: 05/27/17 9:00:00 CDT, Duration: 30 day, Stop date: 06/25/17 9:00:00 CDTNotes: (Same as: Folvite) No Longer Active 05/27/2017 [facility] Docusate 100 mg, 1 cap, Route: PO, Drug form: CAP, BID, Dosing Weight 56.818, kg, Start date: 05/27/17 9:00:00 CDT, Duration: 30 day, Stop date: 06/25/17 17:00:00 CDTNotes: (Same as: Colace) (Do Not Crush) No Longer Active 05/27/2017 [facility] Bupropion 150 mg, 1 tab, Route: PO, Drug form: ERTAB, Daily, Dosing Weight 56.818, kg, Start date: 05/27/17 9:00:00 CDT, Duration: 30 day, Stop date: 06/25/17 9:00:00 CDTNotes: (Same as: Wellbutrin XL) "Do Not Crush" No Longer Active 05/27/2017 [facility] Ketorolac 15 mg, 1 mL, Route: IV, Drug form: INJ, ONCE, Dosing Weight 58.591, kg, Start date: 05/27/17 5:36:00 CDT, Stop date: 05/27/17 5:36:00 CDTNotes: (Same as:Toradol) IV bolus must be given >15 seconds. Give IM administration slowly and deeply into the muscle. Not for use > 4 days. Inactive 05/27/2017 [facility] Ativan 0.5 mg, 1 tab, Route: PO, Drug form: TAB, ONCE, Dosing Weight 58.591, kg, Start date: 05/27/17 3:50:00 CDT, Stop date: 05/27/17 3:50:00 CDTNotes: (Same as: Ativan) Inactive 05/27/2017 [facility] Potassium Chloride 40 mEq, 30 mL, Route: PO, Drug form: LIQ, ONCE, Dosing Weight 58.591, kg, Start date: 05/27/17 3:50:00 CDT, Stop date: 05/27/17 3:50:00 CDTNotes: (Same as: Potassium Chloride) Inactive 05/27/2017 [facility] Potassium Chloride 10 mEq, 100 mL, Route: IVPB, Drug form: INJ, Q1H, Dosing Weight 56.818, kg, Total Dose=40 meq, Start date: 05/27/17 2:00:00 CDT, Duration: 4 doses or times, Stop date: 05/27/17 5:00:00 CDT, Peripheral LineNotes: Infuse at a rate of 10 mEq/hr. (Same as: KCL) Inactive 05/27/2017 [facility] Morphine 30 mg, 30 mL, Route: IV, Initial Loading Dose: 2 mg, THERAPEUTIC PROGRAM WORKER Dose: 1.5 mg, THERAPEUTIC PROGRAM WORKER Lockout: 8 minutes, Continuous Basal Rate: 3 mg, 4 Hour Limit (In MG): 30, Drug Form: INJ, Continuous, Start date: 05/27/17 1: 00:00 CDTNotes: Dose: Delay: Basal rate: 4hr limit: (Same as:Rapi-Ject) Inactive 05/27/2017 [facility] Ondansetron 4 mg, 2 mL, Route: IVP, Drug form: INJ, Q6H, Dosing Weight 56.818, kg, PRN Nausea & Vomiting, Start date: 05/27/17 0:58:00 CDT, Duration: 30 day, Stop date: 06/26/17 0:57:00 CDTNotes: (Same as: Zofran) MEDICATION WASTE Product Size: 4 mg Product Wasted: ___ mg No Longer Active 05/27/2017 [facility] Saline Flush 0.9% 10 ml, Route: IVP, Drug Form: INJ, Dosing Weight 56.818, kg, PRN, PRN Line Flush, Start date: 05/27/17 0:58:00 CDT, Duration: 30 day, Stop date: 06/26/17 0:57:00 CDTNotes: (Same as: BD Posiflush) No Longer Active 05/27/2017 [place] sodium chloride 0.9% 1000 ml INJ 1,000 mL 1,000 mL, Rate: 150 ml/hr, Infuse over: 6.7 hr, Route: IV, Dosing Weight 56.818 kg, Total Volume: 1,000, Start date: 05/27/17 0:58:00 CDT, Duration: 30 day, Stop date: 06/26/17 0:57:00 CDT No Longer Active 05/27/2017 [place] Naloxone 0.04 mg, 0.1 mL, Route: IVP, Drug form: INJ, Q2MIN, Dosing Weight 56.818, kg, PRN Narcotic Reversal, Start date: 05/27/17 0:54:00 CDT, Duration: 30 day, Stop date: 06/26/17 0:53:00 CDTNotes: Same as Narcan No Longer Active 05/27/2017 [facility] Morphine 6 mg, Route: IVP, ONCE, Dosing Weight 56.818, kg, Priority: STAT, Start date: 05/26/17 23:36:00 CDT, Stop date: 05/26/17 23:36:00 CDT Inactive 05/27/2017 [place] Saline Flush 0.9% 10 mL, Route: IVP, Drug Form: INJ, Dosing Weight 56.818, kg, PRN, PRN Line Flush, Start date: 05/26/17 21:47:00 CDT, Duration: 30 day, Stop date: 06/25/17 21:46:00 CDTNotes: (Same as: BD Posiflush) No Longer Active 05/27/2017 [place] Sodium Chloride 0.9% (Bolus) IV 1,000 mL, 1000 ml/hr, Infuse Over: 1 hr, Route: IV, 1,000, Drug form: INJ, ONCE, Priority: STAT, Dosing Weight 56.818 kg, Start date: 05/26/17 21:47:00 CDT, Duration: 1 doses or times, Stop date: 05/26/17 21:47:00 CDT Inactive 05/27/2017 [facility] Morphine 8 mg, 2 mL, Route: IVP, Drug form: INJ, ONCE, Dosing Weight 56.818, kg, Priority: STAT, Start date: 05/26/17 21:47:00 CDT, Stop date: 05/26/17 21:47:00 CDTNotes: (Same as:MORPhine Sulfate) Inactive 05/27/2017 [place] Ondansetron 4 mg, 2 mL, Route: IVP, Drug form: INJ, ONCE, Dosing Weight 56.818, kg, Priority: STAT, Start date: 05/26/17 21:47:00 CDT, Stop date: 05/26/17 21:47:00 CDTNotes: (Same as: Zofran) MEDICATION WASTE Product Size: 4 mg Product Wasted: ___ mg Inactive 05/27/2017 [place] Calcium Carbonate 500 mg, 1 tab, Route: PO, Drug form: CHEWTAB, TID, Dosing Weight 54.545, kg, Start date: 05/15/17 13:00:00 CDT, Duration: 1 day, Stop date: 05/16/17 9:00:00 CDTNotes: (Same As: Tums) Calcium Carbonate 500 [id number] mg elemental calcium Dose= mg calcium carbonate ( mg elemental calcium) Inactive 05/15/2017 [facility] potassium chloride 20 mEq oral tablet, extended release 20 mEq, 1 tab, Route: PO, Drug form: ERTAB, Q12H, Dosing Weight 54.545, kg, Start date: 05/15/17 12:30:00 CDT, Duration: 2 doses or times, Stop date: 05/15/17 21:00:00 CDTNotes: (Same as: K-Dur 20) "Do Not Crush" With food and full glass of water Inactive 05/15/2017 [facility] MS Contin 45 mg, 3 tab, Route: PO, Drug form: ERTAB, Q8H, Dosing Weight 54.545, kg, Start date: 05/14/17 14:00:00 CDT, Duration: 30 day, Stop date: 06/13/17 6:00:00 CDTNotes: Do not crush (Same as:Oramorph SR, MS Contin) No Longer Active 05/14/2017 [facility] Acetaminophen 325 MG / Hydrocodone Bitartrate 10 MG Oral Tablet [[place] 10/325] 1 tab, Route: PO, Drug Form: TAB, Dosing Weight 54.545, kg, ONCE, STAT, Start date: 05/13/17 21:02:00 CDT, Stop date: 05/13/17 21:02:00 CDTNotes: Do not exceed 4gm/day of acetaminophen. (Same as: [place] 325/10) Inactive 05/14/2017 [facility] Phenergan 12.5 mg, 0.5 mL, Route: IVPB, Drug form: INJ, ONCE, Dosing Weight 54.545, kg, PRN Nausea & Vomiting, Start date: 05/13/17 13:11:00 CDTNotes: Do not give IV push. (Same as: Phenergan) No Longer Active 05/13/2017 [facility] Miralax 17 gm, 1 pkt, Route: PO, Drug form: PWDR, BID, Dosing Weight 54.545, kg, PRN Constipation, Start date: 05/13/17 8:33:00 CDT, Duration: 30 day, Stop date: 06/12/17 8:32:00 CDTNotes: Dissolve in 8 oz of water or juice. (Same as: Miralax) No Longer Active 05/13/2017 [facility] Fluticasone propionate 0.05 MG/ACTUAT Metered Dose Nasal [place] [Flonase] 2 spray, Route: Each Affected Nostril, Drug Form: SPRY, Dosing Weight 54.545, kg, Daily, PRN Nasal Congestion, Start date: 05/11/17 11:39:00 CDT, Stop date: 06/10/17 11:38:00 CDTNotes: (Same as: Flonase) No Longer Active 05/11/2017 [facility] Alprazolam 0.25 MG Oral Tablet 0.25 mg=1 tab, PO, Daily, # 30 tab, 0 Refill(s) No Longer Active 05/11/2017 [facility] buPROPion 150 mg/24 hours (XL) oral tablet, extended release 300 mg=2 tab, PO, QAM, 0 Refill(s) Active 05/11/2017 [facility] Tylenol 1,000 mg, 2 tab, Route: PO, Drug form: TAB, Q6H, Dosing Weight 54.545, kg, Start date: 05/10/17 18:06:00 CDT, Duration: 30 day, Stop date: 06/09/17 18:00:00 CDTNotes: Max acetaminophen 4000 mg/day (4 gm/day). (Same as: Tylenol Extra Strength) No Longer Active 05/10/2017 [facility] Hydroxyzine 50 mg, 5 tab, Route: PO, Drug form: TAB, TID, Dosing Weight 54.545, kg, PRN Anxiety, Start date: 05/10/17 16:45:00 CDT, Duration: 30 day, Stop date: 06/09/17 16:44:00 CDTNotes: (Same as: Atarax) [place] id alcohol. No Longer Active 05/10/2017 [facility] Clonazepam 0.25 mg, 0.5 tab, Route: PO, Drug form: TAB, ONCE, Dosing Weight 54.545, kg, Priority: STAT, Start date: 05/10/17 14:28:00 CDT, Stop date: 05/10/17 14:28:00 CDTNotes: 0.25 mg=1/2 x 0.5 mg TAB (Same As: KlonoPIN) Inactive 05/10/2017 [facility] MS Contin 30 mg, 2 tab, Route: PO, Drug form: ERTAB, Q12H, Dosing Weight 54.545, kg, Start date: 05/09/17 21:00:00 CDT, Duration: 30 day, Stop date: 06/08/17 9:00:00 CDTNotes: Do not crush (Same as:Oramorph SR, MS Contin) Inactive 05/10/2017 [facility] Ambien 5 mg, 1 tab, Route: PO, Drug form: TAB, ONCE, Dosing Weight 54.545, kg, Start date: 05/09/17 20:50:00 CDT, Stop date: 05/09/17 20:50:00 CDTNotes: (Same As: Ambien) Inactive 05/10/2017 [facility] Morphine Sulfate 15 MG Oral Tablet 15 mg, 1 tab, Route: PO, Drug form: TAB, Q6H, Dosing Weight 54.545, kg, Start date: 05/09/17 18:00:00 CDT, Duration: 30 day, Stop date: 06/08/17 12:00:00 CDTNotes: (Same as:MORPhine Sulfate) Inactive 05/09/2017 [facility] MS Contin 30 mg, 2 tab, Route: PO, Drug form: ERTAB, Q8H, Dosing Weight 54.545, kg, Start date: 05/09/17 16:00:00 CDT, Duration: 30 day, Stop date: 06/08/17 8:00:00 CDTNotes: Do not crush (Same as:Oramorph SR, MS Contin) No Longer Active 05/09/2017 [facility] APAP/butalbital/caffeine 1 tab, Route: PO, Drug Form: TAB, Q6H, PRN Headache 1-5, Start date: 05/09/17 9:44:00 CDT, Duration: 30 day, Stop date: 06/08/17 9:43:00 CDTNotes: ([id number]-qlnngiox 325-50-40mg) Do not exceed 4 gm/day of acetaminophen. (Same as: Esgic, Fioricet) No Longer Active 05/09/2017 [facility] Excedrin Migraine 1 tab, Route: PO, Drug Form: TAB, Dosing Weight 54.545, kg, Q6H, PRN Headache 1-5, Start date: 05/09/17 9:15:00 CDT, Duration: 30 day, Stop date: 06/08/17 9:14:00 CDT Inactive 05/09/2017 [facility] Promethazine 12.5 mg, 1 tab, Route: PO, Drug form: TAB, ONCE, Dosing Weight 54.545, kg, PRN Nausea & Vomiting, Start date: 05/09/17 7:38:00 CDTNotes: (Same as: Phenergan) Inactive 05/09/2017 [facility] Tramadol 100 mg, 2 tab, Route: PO, Drug form: TAB, Q6H, Dosing Weight 54.545, kg, Start date: 05/08/17 12:00:00 CDT, Duration: 30 day, Stop date: 06/07/17 6:00:00 CDT No Longer Active 05/08/2017 [facility] remove patch 1 patch, Route: TOP, Daily, Drug form: ERFILM, Start date: 05/08/17 11:14:00 CDT, Stop date: 06/08/17 9:00:00 CDT No Longer Active 05/08/2017 [facility] Lidocaine 0.05 MG/MG Transdermal Patch 1 patch, Route: TOP, Bedtime, Drug form: FILM, Start date: 05/08/17 11:12:00 CDT, Stop date: 06/07/17 21:00:00 CDT No Longer Active 05/08/2017 [facility] sodium chloride 0.45% 1000 ml INJ 1,000 mL 1,000 mL, Rate: 100 ml/hr, Infuse over: 10 hr, Route: IV, Dosing Weight 54.545 kg, Total Volume: 1,000, Start date: 05/08/17 9:42:00 CDT, Duration: 30 day, Stop date: 06/07/17 9:41:00 CDT No Longer Active 05/08/2017 [facility] Docusate Sodium 50 MG / sennosides, SNF 8.6 MG Oral Tablet 1 tab, Route: PO, Drug Form: TAB, Dosing Weight 54.545, kg, Daily, Start date: 05/08/17 9:00:00 CDT, Duration: 30 day, Stop date: 06/06/17 9:00:00 CDTNotes: (Same as Senokot-S) Equiv. to Nasima-Colace. No Longer Active 05/08/2017 [facility] buPROPion 24 hour extended release 150 mg, 1 tab, Route: PO, Drug form: ERTAB, Daily, Dosing Weight 54.545, kg, Start date: 05/08/17 9:00:00 CDT, Duration: 30 day, Stop date: 06/06/17 9:00:00 CDTNotes: (Same as: Wellbutrin XL) "Do Not Crush" No Longer Active 05/08/2017 [facility] Folic Acid 0.4 mg, 1 tab, Route: PO, Drug form: TAB, Daily, Dosing Weight 54.545, kg, Start date: 05/08/17 9:00:00 CDT, Duration: 30 day, Stop date: 06/06/17 9:00:00 CDT No Longer Active 05/08/2017 [facility] Vitamin B12 50 microgram, 0.5 tab, Route: PO, Drug form: TAB, Daily, Dosing Weight 54.545, kg, Start date: 05/08/17 9:00:00 CDT, Duration: 30 day, Stop date: 06/06/17 9:00:00 CDTNotes: (Same As: Vitamin B12) No Longer Active 05/08/2017 [facility] Bupropion 150 mg, 2 tab, Route: PO, Drug form: TAB, Daily, Dosing Weight 54.545, kg, Start date: 05/08/17 9:00:00 CDT, Duration: 30 day, Stop date: 06/06/17 9:00:00 CDTNotes: (Same As: Wellbutrin) No Longer Active 05/08/2017 [facility] potassium chloride 20 mEq, 100 mL, Route: IVPB, Drug form: INJ, Q2H, Start date: 05/08/17 9:00:00 CDT, Duration: 2 doses or times, Stop date: 05/08/17 11:00:00 CDTNotes: (Same as: KCL) Infuse no faster than 10 mEq/hr if given peripherally. Inactive 05/08/2017 [facility] Potassium Chloride 40 mEq, Route: IV, ONCE, Dosing Weight 54.545, kg, Priority: NOW, Start date: 05/08/17 7:35:00 CDT, Stop date: 05/08/17 7:35:00 CDT Inactive 05/08/2017 [facility] NS (Bolus) IV 1,000 mL, 1,000 ml/hr, Infuse Over: 1 hr, Route: IV, 1,000, Drug form: INJ, ONCE, Priority: NOW, Dosing Weight 54.545 kg, Start date: 05/08/17 7:33:00 CDT, Duration: 1 doses or times, Stop date: 04/22 05/08 7:33:00 CDT Inactive 05/08/2017 [facility] folic acid 1 mg oral tablet 1 mg, 1 tab, Route: PO, Drug form: TAB, Daily, Start date: 05/07/17 19:50:00 CDT, Duration: 30 day, Stop date: 06/06/17 9:00:00 CDTNotes: (Same as: Folvite) No Longer Active 05/08/2017 [facility] Lovenox 40 mg, 0.4 mL, Route: SUB-Q, Drug form: INJ, [id number], Dosing Weight 54.545, kg, Start date: 05/07/17 19:00:00 CDT, Duration: 30 day, Stop date: 06/05/17 19:00:00 CDTNotes: (Same as: Lovenox) No Longer Active 05/08/2017 [facility] Acetaminophen 325 MG / Hydrocodone Bitartrate 10 MG Oral Tablet [[place] 10/325] 1 tab, Route: PO, Drug Form: TAB, Dosing Weight 54.545, kg, Q6H, Start date: 05/07/17 18:00:00 CDT, Duration: 30 day, Stop date: 06/06/17 12:00:00 CDTNotes: Do not exceed 4gm/day of acetaminophen. (Same as: [place] 325/10) No Longer Active 05/07/2017 [facility] Ibuprofen 600 mg, 1 tab, Route: PO, Drug form: TAB, Q6H, Dosing Weight 54.545, kg, Start date: 05/07/17 18:00:00 CDT, Duration: 30 day, Stop date: 06/06/17 12:00:00 CDTNotes: (Same as: Motrin) "Do Not Crush" Take with food. No Longer Active 05/07/2017 [facility] Tramadol 100 mg, 2 tab, Route: PO, Drug form: TAB, Q6H, Dosing Weight 54.545, kg, PRN Pain Score 7-10, Start date: 05/07/17 17:38:00 CDT, Duration: 30 day, Stop date: 06/06/17 17:37:00 CDTNotes: Not to exceed 400mg/day. (Same As: Ultram) No Longer Active 05/07/2017 [facility] gabapentin 100 MG Oral Capsule 300 mg, 3 cap, Route: PO, Drug form: CAP, TID, Dosing Weight 54.545, kg, Start date: 05/07/17 17:00:00 CDT, Duration: 30 day, Stop date: 06/06/17 13:00:00 CDTNotes: (Same as: Neurontin) No Longer Active 05/07/2017 [facility] Folic Acid 1 mg, Route: PO, Drug form: TAB, QID, Dosing Weight 54.545, kg, Start date: 05/07/17 17:00:00 CDT, Duration: 30 day, Stop date: 06/06/17 13:00:00 CDT Inactive 05/07/2017 [facility] senna 8.6 mg oral tablet 8.6 mg, 1 tab, Route: PO, Drug Form: TAB, Dosing Weight 54.545, kg, BID, Start date: 05/07/17 17:00:00 CDT, Duration: 30 day, Stop date: 06/06/17 9:00:00 CDTNotes: (Same as: Senokot) No Longer Active 05/07/2017 [facility] Docusate Sodium 100 MG Oral Capsule 100 mg, 1 cap, Route: PO, Drug form: CAP, BID, Dosing Weight 54.545, kg, Start date: 05/07/17 17:00:00 CDT, Duration: 30 day, Stop date: 06/06/17 9:00:00 CDTNotes: (Same as: Colace) (Do Not Crush) No Longer Active 05/07/2017 [facility] methocarbamol 750 mg oral tablet 750 mg=1 tab, PO, QID, 0 Refill(s) No Longer Active 05/07/2017 [facility] Ondansetron 4 MG Oral Tablet [Zofran] 4 mg=1 tab, PO, Q8H, 0 Refill(s) No Longer Active 05/07/2017 [facility] Docusate Sodium 100 MG Oral Tablet [DOK] 100 mg=1 tab, PO, BID, 0 Refill(s) No Longer Active 05/07/2017 [facility] Folic Acid 1 MG Oral Tablet 1 mg=1 tab, PO, QID, 0 Refill(s) Active 05/07/2017 [facility] Miralax 17 gm, 1 pkt, Route: PO, Drug form: PWDR, Daily, Dosing Weight 54.545, kg, PRN Constipation, Start date: 05/07/17 15:35:00 CDT, Duration: 30 day, Stop date: 06/06/17 15:34:00 CDTNotes: Dissolve in 8 oz of water or juice. (Same as: Miralax) No Longer Active 05/07/2017 [facility] Acetaminophen 1,000 mg, 2 tab, Route: PO, Drug form: TAB, Q6H, Dosing Weight 54.545, kg, PRN Pain Score 7-10, Start date: 05/07/17 15:33:00 CDT, Duration: 30 day, Stop date: 06/06/17 15:32:00 CDTNotes: Max acetaminophen 4000 mg/day (4 gm/day). (Same as: Tylenol Extra Strength) Inactive 05/07/2017 [facility] Morphine 30 mg, 30 mL, Route: IV, Initial Loading Dose: 2 mg, [employer] Dose: 2 mg, [employer] WORKER Lockout: 10 minutes, Continuous Basal Rate: 0 mg, 4 Hour Limit (In MG): 48, Drug Form: INJ, Continuous, Start date: 05/07/17 15: 30:00 CDTNotes: Dose: Delay: Basal rate: 4hr limit: (Same as:Berna) No Longer Active 05/07/2017 [facility] Naloxone 0.04 mg, Route: IVP, Q2MIN, Dosing Weight 54.545, kg, PRN Narcotic Reversal, Start date: 05/07/17 15:04:00 CDT, Duration: 30 day, Stop date: 06/06/17 15:03:00 CDT Inactive 05/07/2017 [facility] Naloxone 0.04 mg, 0.1 mL, Route: IVP, Drug form: INJ, Q2MIN, Dosing Weight 54.545, kg, PRN Narcotic Reversal, Start date: 05/07/17 14:53:00 CDT, Duration: 8 hr, Stop date: 05/07/17 22:52:00 CDTNotes: Same as Narcan Inactive 05/07/2017 [facility] Folic Acid Daily, 0 Refill(s) Inactive 05/07/2017 [facility] Clindamycin 150 mg, PO, Daily, 0 Refill(s) No Longer Active 05/07/2017 [facility] Acetaminophen 325 MG / Hydrocodone Bitartrate 10 MG Oral Tablet [[place] 10/325] 1 tab, PO, Q6H, 0 Refill(s) Active 05/07/2017 [facility] Bupropion 150 mg, PO, Daily, 0 Refill(s) No Longer Active 05/07/2017 [facility] Vitamin B12 0 Refill(s) Active 05/07/2017 [facility] naproxen 250 mg oral tablet 250 mg=1 tab, PO, BID, 0 Refill(s) Active 05/07/2017 [facility] Morphine Sulfate 15 MG Oral Tablet 15 mg=1 tab, PO, 0 Refill(s) Active 05/07/2017 [facility] morphine extended release 30 mg, PO, Q12H, 0 Refill(s) Active 05/07/2017 [facility] Ondansetron 4 mg, 2 mL, Route: IVP, Drug form: INJ, Q6H, Dosing Weight 54.545, kg, PRN Nausea & Vomiting, Start date: 05/07/17 13:16:00 CDT, Duration: 30 day, Stop date: 06/06/17 13:15:00 CDTNotes: (Same as: Zofran) MEDICATION WASTE Product Size: 4 mg Product Wasted: ___ mg No Longer Active 05/07/2017 [facility] Morphine 6 mg, 1.5 mL, Route: IVP, Drug form: INJ, ONCE, Dosing Weight 54.545, kg, Priority: STAT, Start date: 05/07/17 11:21:00 CDT, Stop date: 05/07/17 11:21:00 CDTNotes: (Same as:MORPhine Sulfate) Inactive 05/07/2017 [facility] Morphine 8 mg, 2 mL, Route: IVP, Drug form: INJ, ONCE, Dosing Weight 54.545, kg, Priority: STAT, Start date: 05/07/17 9:24:00 CDT, Stop date: 05/07/17 9:24:00 CDTNotes: (Same as:MORPhine Sulfate) Inactive 05/07/2017 [facility] Zofran 4 mg, Route: IVP, Drug form: INJ, ONCE, Dosing Weight 54.545, kg, Priority: STAT, Start date: 05/07/17 7:24:00 CDT, Stop date: 05/07/17 7:24:00 CDT Inactive 05/07/2017 [facility] NS (Bolus) IV 1,000 mL, 1,000 ml/hr, Infuse Over: 1 hr, Route: IV, ONCE, Priority: STAT, Dosing Weight 54.545 kg, Start date: 05/07/17 7:24:00 CDT, Duration: 1 doses or times, Stop date: 05/07/17 7:24:00 CDT Inactive 05/07/2017 [facility] Morphine 4 mg, Route: IVP, ONCE, Dosing Weight 54.545, kg, Priority: STAT, Start date: 05/07/17 7:24:00 CDT, Stop date: 05/07/17 7:24:00 CDT Inactive 05/07/2017 [facility] Allergies, Adverse Reactions, Alerts Substance Category Reaction Severity Reaction type Status Date Reported Comments Source Dilaudid Assertion Augmentin, extreme memory loss Drug allergy Active [facility] Augmentin Assertion hives Drug allergy Active [facility] Immunizations Immunization Date Given Site Status Last Updated Comments Source pneumococcal 13-valent vaccine 07/05/2017 Not Given [facility] Results Order Name Results Value Reference Range Date Interpretation Comments Source ELECTROLYTES AGAP 12.3 meq/L 10.0 - 20.0 05/24/2018 [facility] ELECTROLYTES eGFR 187 mL/min/1.73m2 05/24/2018 Result Comment: The eGFR is calculated using the CKD-EPI formula. In most young, healthy individuals the eGFR will be >90 mL/min/1.73m2. The eGFR declines with age. An eGFR of 60-89 may be normal in some populations, particularly the elderly, for whom the CKD-EPI formula has not been extensively validated. Use of the eGFR is not recommended in the following populations: Individuals with unstable creatinine concentrations, including patients and those with serious co-morbid conditions. Patients with extremes in muscle mass or diet. The data above are obtained from the National Kidney Disease Education Program (NKDEP) which additionally recommends that when the eGFR is used in patients with extremes of body mass index for purposes of drug dosing, the eGFR should be multiplied by the estimated BMI. [facility] ELECTROLYTES Creatinine Lvl 0.31 mg/dL 0.50 - 1.40 05/24/2018 [facility] ELECTROLYTES Sodium Lvl 144 meq/L 135 - 145 05/24/2018 [facility] ELECTROLYTES Glucose Lvl 82 mg/dL 70 - 99 05/24/2018 [facility] ELECTROLYTES BUN 6 mg/dL 7 - 22 05/24/2018 [facility] ELECTROLYTES Calcium Lvl 8.4 mg/dL 8.5 - 10.5 05/24/2018 [facility] ELECTROLYTES Potassium Lvl 4.3 meq/L 3.5 - 5.1 05/24/2018 Result Comment: Specimen Slightly Hemolyzed. [facility] ELECTROLYTES CO2 29 meq/L 24 - 32 05/24/2018 [facility] ELECTROLYTES Chloride Lvl 107 meq/L 95 - 109 05/24/2018 [facility] HEMATOLOGY Plt Morph Normal (05/24/18 5:24 AM) 05/24/2018 [facility] HEMATOLOGY Monocytes 10.5 % 2.0 - 12.0 05/24/2018 [facility] HEMATOLOGY Lymphocytes 37.9 % 20.0 - 40.0 05/24/2018 [facility] HEMATOLOGY Segs 46.1 % 45.0 - 75.0 05/24/2018 [facility] HEMATOLOGY Basophils 1.2 % 0.0 - 1.0 05/24/2018 [facility] HEMATOLOGY Eosinophils # 0.3 K/CMM 0.0 - 0.5 05/24/2018 [facility] HEMATOLOGY Eosinophils 4.3 % 0.0 - 4.0 05/24/2018 [facility] HEMATOLOGY Neutrophils # 3.2 K/CMM 1.5 - 8.1 05/24/2018 [facility] HEMATOLOGY Lymphocytes # 2.6 K/CMM 1.0 - 5.5 05/24/2018 [facility] HEMATOLOGY Target Cell Moderate *ABN* (05/24/18 5:24 AM) None Seen 05/24/2018 [facility] HEMATOLOGY Microcyte 2+ *ABN* (05/24/18 5:24 AM) None Seen 05/24/2018 [facility] HEMATOLOGY Basophils # 0.1 K/CMM 0.0 - 0.2 05/24/2018 [facility] HEMATOLOGY Monocytes # 0.7 K/CMM 0.0 - 0.8 05/24/2018 [facility] HEMATOLOGY RDW 19.9 % 11.5 - 14.5 05/24/2018 [facility] HEMATOLOGY MCH 23.5 pg 27.0 - 31.0 05/24/2018 [facility] HEMATOLOGY MCHC 32.5 g/dL 32.0 - 36.0 05/24/2018 [facility] HEMATOLOGY MCV 72.1 fL 80.0 - 98.0 05/24/2018 [facility] HEMATOLOGY Hct 21.1 % 36.0 - 48.0 05/24/2018 [facility] HEMATOLOGY MPV 7.8 fL 7.4 - 10.4 05/24/2018 [facility] HEMATOLOGY Platelet 352 K/CMM 133 - 450 05/24/2018 [facility] HEMATOLOGY Hgb 6.9 g/dL 12.0 - 16.0 05/24/2018 Result Comment: Critical Result(s) called to Sarah Robertson at 05/24/2018 07:[address] Read back OK. [facility] HEMATOLOGY RBC 2.93 M/CMM 4.20 - 5.40 05/24/2018 [facility] HEMATOLOGY WBC 6.9 K/CMM 3.7 - 10.4 05/24/2018 [facility] CHEM PANEL Magnesium Lvl 2.1 mg/dL 1.8 - 2.4 05/23/2018 [facility] CHEM PANEL eGFR 175 mL/min/1.73m2 05/23/2018 Result Comment: The eGFR is calculated using the CKD-EPI formula. In most young, healthy individuals the eGFR will be >90 mL/min/1.73m2. The eGFR declines with age. An eGFR of 60-89 may be normal in some populations, particularly the elderly, for whom the CKD-EPI formula has not been extensively validated. Use of the eGFR is not recommended in the following populations: Individuals with unstable creatinine concentrations, including patients and those with serious co-morbid conditions. Patients with extremes in muscle mass or diet. The data above are obtained from the National Kidney Disease Education Program (NKDEP) which additionally recommends that when the eGFR is used in patients with extremes of body mass index for purposes of drug dosing, the eGFR should be multiplied by the estimated BMI. [facility] CHEM PANEL Calcium Lvl 8.4 mg/dL 8.5 - 10.5 05/23/2018 [facility] CHEM PANEL CO2 26 meq/L 24 - 32 05/23/2018 [facility] CHEM PANEL Chloride Lvl 106 meq/L 95 - 109 05/23/2018 [facility] CHEM PANEL Creatinine Lvl 0.38 mg/dL 0.50 - 1.40 05/23/2018 [facility] CHEM PANEL BUN 5 mg/dL 7 - 22 05/23/2018 [facility] CHEM PANEL Potassium Lvl 3.5 meq/L 3.5 - 5.1 05/23/2018 [facility] CHEM PANEL Sodium Lvl 145 meq/L 135 - 145 05/23/2018 [facility] CHEM PANEL Glucose Lvl 65 mg/dL 70 - 99 05/23/2018 [facility] CHEM PANEL AGAP 16.5 meq/L 10.0 - 20.0 05/23/2018 [facility] CHEM PANEL Phosphorus 4.9 mg/dL 2.5 - 4.5 05/23/2018 [facility] HEMATOLOGY Hct 22.2 % 36.0 - 48.0 05/23/2018 [facility] HEMATOLOGY Hgb 7.1 g/dL 12.0 - 16.0 05/23/2018 [facility] HEMATOLOGY MCH 23.4 pg 27.0 - 31.0 05/23/2018 [facility] HEMATOLOGY MCV 72.8 fL 80.0 - 98.0 05/23/2018 [facility] HEMATOLOGY MCHC 32.2 g/dL 32.0 - 36.0 05/23/2018 [facility] HEMATOLOGY WBC 10.2 K/CMM 3.7 - 10.4 05/23/2018 [facility] HEMATOLOGY RBC 3.05 M/CMM 4.20 - 5.40 05/23/2018 [facility] HEMATOLOGY RDW 19.6 % 11.5 - 14.5 05/23/2018 [facility] HEMATOLOGY Platelet 352 K/CMM 133 - 450 05/23/2018 [facility] HEMATOLOGY MPV 7.9 fL 7.4 - 10.4 05/23/2018 [facility] HEMATOLOGY Monocytes 8.3 % 2.0 - 12.0 05/23/2018 [facility] HEMATOLOGY Lymphocytes 35.7 % 20.0 - 40.0 05/23/2018 [facility] HEMATOLOGY Basophils 1.0 % 0.0 - 1.0 05/23/2018 [facility] HEMATOLOGY Eosinophils 3.6 % 0.0 - 4.0 05/23/2018 [facility] HEMATOLOGY Neutrophils # 5.3 K/CMM 1.5 - 8.1 05/23/2018 [facility] HEMATOLOGY Segs 51.4 % 45.0 - 75.0 05/23/2018 [facility] HEMATOLOGY Eosinophils # 0.4 K/CMM 0.0 - 0.5 05/23/2018 [facility] HEMATOLOGY Monocytes # 0.9 K/CMM 0.0 - 0.8 05/23/2018 [facility] HEMATOLOGY Microcyte 2+ *ABN* (05/23/18 1:19 AM) None Seen 05/23/2018 [facility] HEMATOLOGY Basophils # 0.1 K/CMM 0.0 - 0.2 05/23/2018 [facility] HEMATOLOGY Lymphocytes # 3.7 K/CMM 1.0 - 5.5 05/23/2018 [facility] CHEM PANEL eGFR 173 mL/min/1.73m2 05/22/2018 Result Comment: The eGFR is calculated using the CKD-EPI formula. In most young, healthy individuals the eGFR will be >90 mL/min/1.73m2. The eGFR declines with age. An eGFR of 60-89 may be normal in some populations, particularly the elderly, for whom the CKD-EPI formula has not been extensively validated. Use of the eGFR is not recommended in the following populations: Individuals with unstable creatinine concentrations, including patients and those with serious co-morbid conditions. Patients with extremes in muscle mass or diet. The data above are obtained from the National Kidney Disease Education Program (NKDEP) which additionally recommends that when the eGFR is used in patients with extremes of body mass index for purposes of drug dosing, the eGFR should be multiplied by the estimated BMI. [facility] CHEM PANEL CO2 25 meq/L 24 - 32 05/22/2018 [facility] CHEM PANEL Chloride Lvl 108 meq/L 95 - 109 05/22/2018 [facility] CHEM PANEL Creatinine Lvl 0.39 mg/dL 0.50 - 1.40 05/22/2018 [facility] CHEM PANEL Potassium Lvl 3.9 meq/L 3.5 - 5.1 05/22/2018 [facility] CHEM PANEL Sodium Lvl 143 meq/L 135 - 145 05/22/2018 [facility] CHEM PANEL BUN 6 mg/dL 7 - 22 05/22/2018 [facility] CHEM PANEL Glucose Lvl 73 mg/dL 70 - 99 05/22/2018 [facility] CHEM PANEL AGAP 13.9 meq/L 10.0 - 20.0 05/22/2018 [facility] CHEM PANEL Calcium Lvl 8.4 mg/dL 8.5 - 10.5 05/22/2018 [facility] HEMATOLOGY Basophils 1.2 % 0.0 - 1.0 05/22/2018 [facility] HEMATOLOGY Neutrophils # 3.4 K/CMM 1.5 - 8.1 05/22/2018 [facility] HEMATOLOGY Segs 38.8 % 45.0 - 75.0 05/22/2018 [facility] HEMATOLOGY Lymphocytes 46.1 % 20.0 - 40.0 05/22/2018 [facility] HEMATOLOGY Monocytes 9.4 % 2.0 - 12.0 05/22/2018 [facility] HEMATOLOGY Eosinophils 4.5 % 0.0 - 4.0 05/22/2018 [facility] HEMATOLOGY Microcyte 2+ *ABN* (05/22/18 1:51 AM) None Seen 05/22/2018 [facility] HEMATOLOGY Monocytes # 0.8 K/CMM 0.0 - 0.8 05/22/2018 [facility] HEMATOLOGY Lymphocytes # 4.1 K/CMM 1.0 - 5.5 05/22/2018 [facility] HEMATOLOGY Eosinophils # 0.4 K/CMM 0.0 - 0.5 05/22/2018 [facility] HEMATOLOGY Basophils # 0.1 K/CMM 0.0 - 0.2 05/22/2018 [facility] HEMATOLOGY WBC 8.8 K/CMM 3.7 - 10.4 05/22/2018 [facility] HEMATOLOGY Hct 20.3 % 36.0 - 48.0 05/22/2018 [facility] HEMATOLOGY RBC 2.78 M/CMM 4.20 - 5.40 05/22/2018 [facility] HEMATOLOGY Hgb 6.4 g/dL 12.0 - 16.0 05/22/2018 Result Comment: Critical Result(s) called to Barak Matos at 05/22/2018 03:43 by BOSWELL. Read back OK. [facility] HEMATOLOGY MCHC 31.8 g/dL 32.0 - 36.0 05/22/2018 [facility] HEMATOLOGY MCH 23.2 pg 27.0 - 31.0 05/22/2018 [facility] HEMATOLOGY MCV 72.7 fL 80.0 - 98.0 05/22/2018 [facility] HEMATOLOGY MPV 7.9 fL 7.4 - 10.4 05/22/2018 [facility] HEMATOLOGY Platelet 308 K/CMM 133 - 450 05/22/2018 [facility] HEMATOLOGY RDW 19.5 % 11.5 - 14.5 05/22/2018 [facility] HEMATOLOGY Retic Auto 5.0 % 0.5 - 1.5 05/21/2018 [facility] HEMATOLOGY Target Cell Moderate *ABN* (05/21/18 5:59 AM) None Seen 05/21/2018 [facility] HEMATOLOGY HJ Body Occasional *ABN* (05/21/18 5:59 AM) None Seen 05/21/2018 [facility] HEMATOLOGY Polychrom Slight 05/21/2018 [facility] HEMATOLOGY Schistocyte 1-3 per HPF (05/21/18 5:59 AM) None Seen 05/21/2018 [facility] HEMATOLOGY Hypochrom 1+ (05/21/18 5:59 AM) None Seen 05/21/2018 [facility] HEMATOLOGY Atypical Lymphs 0.0 % <=0.0 % 05/21/2018 [facility] HEMATOLOGY Plt Morph Normal (05/21/18 5:59 AM) 05/21/2018 [facility] HEMATOLOGY Anisocyte 1+ *ABN* (05/21/18 5:59 AM) None Seen 05/21/2018 [facility] HEMATOLOGY Bands 0.0 % 0.0 - 11.0 05/21/2018 [facility] CHEM PANEL Magnesium Lvl 2.0 mg/dL 1.8 - 2.4 05/20/2018 [facility] CHEM PANEL Phosphorus 4.0 mg/dL 2.5 - 4.5 05/20/2018 [facility] HEMATOLOGY Atypical Lymphs 0.0 % <=0.0 % 05/20/2018 [facility] HEMATOLOGY Target Cell Moderate *ABN* (05/20/18 5:47 AM) None Seen 05/20/2018 [facility] HEMATOLOGY Sickle Cell Occasional *ABN* (05/20/18 5:47 AM) None Seen 05/20/2018 [facility] HEMATOLOGY Schistocyte 1-3 per HPF (05/20/18 5:47 AM) None Seen 05/20/2018 [facility] HEMATOLOGY Bands 0.0 % 0.0 - 11.0 05/20/2018 [facility] CHEM PANEL Magnesium Lvl 2.2 mg/dL 1.8 - 2.4 05/19/2018 [facility] CHEM PANEL Phosphorus 3.1 mg/dL 2.5 - 4.5 05/19/2018 [facility] HEMATOLOGY INR 1.14 0.85 - 1.17 05/19/2018 [facility] HEMATOLOGY PTT 37.4 s 22.9 - 35.8 05/19/2018 [facility] HEMATOLOGY PT 14.6 s 12.0 - 14.7 05/19/2018 [facility] HEMATOLOGY Retic Auto 7.1 % 0.5 - 1.5 05/19/2018 [facility] HEMATOLOGY Hypochrom 1+ (05/19/18 2:06 AM) None Seen 05/19/2018 [facility] HEMATOLOGY Hgb 6.8 g/dL 12.0 - 16.0 05/18/2018 Result Comment: Critical Result(s) called to hetal at _ by05/18/2018 16:22 by alak. Read back OK. [facility] HEMATOLOGY Hct 21.2 % 36.0 - 48.0 05/18/2018 [facility] CHEM PANEL LDH 391 unit/L 98 - 192 05/18/2018 [facility] ELECTROLYTES AGAP 7.7 meq/L 10.0 - 20.0 05/18/2018 [facility] ELECTROLYTES A/G Ratio 1.1 0.7 - 1.6 05/18/2018 [facility] ELECTROLYTES B/C Ratio 11 6 - 25 05/18/2018 [facility] ELECTROLYTES Globulin 2.8 g/dL 2.7 - 4.2 05/18/2018 [facility] ELECTROLYTES eGFR 178 mL/min/1.73m2 05/18/2018 Result Comment: The eGFR is calculated using the CKD-EPI formula. In most young, healthy individuals the eGFR will be >90 mL/min/1.73m2. The eGFR declines with age. An eGFR of 60-89 may be normal in some populations, particularly the elderly, for whom the CKD-EPI formula has not been extensively validated. Use of the eGFR is not recommended in the following populations: Individuals with unstable creatinine concentrations, including patients and those with serious co-morbid conditions. Patients with extremes in muscle mass or diet. The data above are obtained from the National Kidney Disease Education Program (NKDEP) which additionally recommends that when the eGFR is used in patients with extremes of body mass index for purposes of drug dosing, the eGFR should be multiplied by the estimated BMI. [facility] ELECTROLYTES Bili Total 0.7 mg/dL 0.2 - 1.3 05/18/2018 [facility] ELECTROLYTES Alk Phos 67 unit/L 39 - 136 05/18/2018 [facility] ELECTROLYTES ALT 24 unit/L 0 - 65 05/18/2018 [facility] ELECTROLYTES AST 27 unit/L 0 - 37 05/18/2018 [facility] ELECTROLYTES Chloride Lvl 111 meq/L 95 - 109 05/18/2018 [facility] ELECTROLYTES CO2 29 meq/L 24 - 32 05/18/2018 [facility] ELECTROLYTES Calcium Lvl 8.2 mg/dL 8.5 - 10.5 05/18/2018 [facility] Total Protein 5.8 g/dL 6.4 - 8.4 05/18/2018 [facility] Albumin Lvl 3.0 g/dL 3.5 - 5.0 05/18/2018 [facility] ELECTROLYTES Sodium Lvl 144 meq/L 135 - 145 05/18/2018 [facility] ELECTROLYTES Potassium Lvl 3.7 meq/L 3.5 - 5.1 05/18/2018 [facility] ELECTROLYTES Creatinine Lvl 0.36 mg/dL 0.50 - 1.40 05/18/2018 [facility] ELECTROLYTES Glucose Lvl 93 mg/dL 70 - 99 05/18/2018 [facility] ELECTROLYTES BUN 4 mg/dL 7 - 22 05/18/2018 [facility] MCH 23.1 pg 27.0 - 31.0 05/18/2018 [facility] MCHC 31.8 g/dL 32.0 - 36.0 05/18/2018 [facility] RDW 17.3 % 11.5 - 14.5 05/18/2018 [facility] MCV 72.4 fL 80.0 - 98.0 05/18/2018 [facility] Platelet 161 K/CMM 133 - 450 05/18/2018 [facility] MPV 8.6 fL 7.4 - 10.4 05/18/2018 [facility] RBC 2.60 M/CMM 4.20 - 5.40 05/18/2018 [facility] WBC 7.2 K/CMM 3.7 - 10.4 05/18/2018 [facility] Hct 18.8 % 36.0 - 48.0 05/18/2018 [facility] Hgb 6.0 g/dL 12.0 - 16.0 05/18/2018 Result Comment: Critical Result(s) called to A Dubree_ at _05/18/2018 05:49 mfb by_. Read back OK. [facility] Retic Auto 6.8 % 0.5 - 1.5 05/18/2018 [facility] Monocytes # 1.0 K/CMM 0.0 - 0.8 05/18/2018 [facility] Microcyte 1+ *ABN* (05/18/18 4:50 AM) None Seen 05/18/2018 [facility] Eosinophils # 0.4 K/CMM 0.0 - 0.5 05/18/2018 [facility] Lymphocytes # 1.6 K/CMM 1.0 - 5.5 05/18/2018 [facility] Neutrophils # 4.1 K/CMM 1.5 - 8.1 05/18/2018 [facility] Lymphocytes 22.5 % 20.0 - 40.0 05/18/2018 [facility] Segs 57.4 % 45.0 - 75.0 05/18/2018 [facility] Eosinophils 5.5 % 0.0 - 4.0 05/18/2018 [facility] Basophils 0.4 % 0.0 - 1.0 05/18/2018 [facility] Monocytes 14.2 % 2.0 - 12.0 05/18/2018 [facility] TOXICOLOGY Vanco Tr TND 16:00 05/17/2018 [facility] TOXICOLOGY Vanco Tr 3.4 ug/ml 05/17/2018 [facility] Chest 2 views DX Chest 2 views DX Patient Name: TERE JACK : 1995; Age: 22 years y/o Female MR: [id number] * CHEST, 2 views HISTORY: Left basilar opacity, possible infiltrate, follow-up. COMPARISON: 05/14/2018. Studies of 05/06/2018, 02/09/2018, and a chest computed tomography scan of 07/10/2017 were reviewed. TECHNIQUE: Frontal and lateral radiographs of the chest were obtained. IMPRESSION: 1. Minimal residual left basilar opacity probably represents atelectasis and bibasilar chronic interstitial changes. There are no definite infiltrates or pleural effusions. There is no evidence of pneumonia. 2. Mild diffuse chronic nonspecific interstitial changes. 3. Borderline cardiomegaly without acute failure. 4. Osseous changes of sickle cell disease including bony sclerosis, vertebral body endplate depressions, and more focal sclerosis involving the humeral heads. SL: [id number] 05/17/2018 - - Read by: Blayne Smith MD Dictated Date/time: 05/18/18 13:33 Electronically Signed by: Blayne Smith MD 05/18/18 13:36 FINAL REPORT [facility] BACTERIAL - SEROLOGY Strep pneumoniae Ag Negative (05/17/18 11:57 AM) Negative 05/17/2018 [facility] BACTERIAL - SEROLOGY Source Strep Urine *NA* (05/17/18 11:57 AM) 05/17/2018 [facility] URINE AND STOOL UA Urobilinogen <=1.0 mg/dL 0.1 - 1.0 05/17/2018 [facility] URINE AND STOOL UA Bacteria Occasional /HPF None Seen /HPF 05/17/2018 [facility] URINE AND STOOL UA Color Ltyellow 05/17/2018 [facility] URINE AND STOOL UA Leuk Est Negative (05/17/18 11:57 AM) Negative 05/17/2018 [facility] URINE AND STOOL UA RBC 1 /HPF 0 - 2 05/17/2018 [facility] URINE AND STOOL UA WBC 1 /HPF 0 - 5 05/17/2018 [facility] URINE AND STOOL UA Sq Epi Occasional /LPF Few /LPF 05/17/2018 [facility] URINE AND STOOL UA Glucose Negative mg/dL Negative mg/dL 05/17/2018 [facility] URINE AND STOOL UA Protein Negative mg/dL Negative mg/dL 05/17/2018 [facility] URINE AND STOOL UA Ketones Negative mg/dL Negative mg/dL 05/17/2018 [facility] URINE AND STOOL UA Bili Negative *NA* (05/17/18 11:57 AM) Negative 05/17/2018 [facility] URINE AND STOOL UA Blood Negative (05/17/18 11:57 AM) Negative 05/17/2018 [facility] URINE AND STOOL UA Nitrite Negative (05/17/18 11:57 AM) Negative 05/17/2018 [facility] URINE AND STOOL UA Turbidity Slight *ABN* (05/17/18 11:57 AM) Clear 05/17/2018 [facility] URINE AND STOOL UA pH 6.0 5.0 - 8.0 05/17/2018 [facility] URINE AND STOOL UA Spec Grav 1.008 <=1.030 05/17/2018 [facility] CHEM PANEL LDH 452 unit/L 98 - 192 05/17/2018 [facility] CHEM PANEL eGFR 175 mL/min/1.73m2 05/17/2018 Result Comment: The eGFR is calculated using the CKD-EPI formula. In most young, healthy individuals the eGFR will be >90 mL/min/1.73m2. The eGFR declines with age. An eGFR of 60-89 may be normal in some populations, particularly the elderly, for whom the CKD-EPI formula has not been extensively validated. Use of the eGFR is not recommended in the following populations: Individuals with unstable creatinine concentrations, including patients and those with serious co-morbid conditions. Patients with extremes in muscle mass or diet. The data above are obtained from the National Kidney Disease Education Program (NKDEP) which additionally recommends that when the eGFR is used in patients with extremes of body mass index for purposes of drug dosing, the eGFR should be multiplied by the estimated BMI. [facility] CHEM PANEL Bili Total 1.0 mg/dL 0.2 - 1.3 05/17/2018 [facility] CHEM PANEL Alk Phos 59 unit/L 39 - 136 05/17/2018 [facility] CHEM PANEL AST 23 unit/L 0 - 37 05/17/2018 [facility] CHEM PANEL CO2 27 meq/L 24 - 32 05/17/2018 [facility] CHEM PANEL ALT 17 unit/L 0 - 65 05/17/2018 [facility] CHEM PANEL Total Protein 6.2 g/dL 6.4 - 8.4 05/17/2018 [facility] CHEM PANEL Albumin Lvl 3.2 g/dL 3.5 - 5.0 05/17/2018 [facility] CHEM PANEL Calcium Lvl 8.5 mg/dL 8.5 - 10.5 05/17/2018 [facility] CHEM PANEL Potassium Lvl 3.6 meq/L 3.5 - 5.1 05/17/2018 [facility] CHEM PANEL Chloride Lvl 110 meq/L 95 - 109 05/17/2018 [facility] CHEM PANEL Sodium Lvl 143 meq/L 135 - 145 05/17/2018 [facility] CHEM PANEL Creatinine Lvl 0.38 mg/dL 0.50 - 1.40 05/17/2018 [facility] CHEM PANEL Glucose Lvl 94 mg/dL 70 - 99 05/17/2018 [facility] CHEM PANEL BUN 5 mg/dL 7 - 22 05/17/2018 [facility] CHEM PANEL B/C Ratio 13 6 - 25 05/17/2018 [facility] CHEM PANEL A/G Ratio 1.1 0.7 - 1.6 05/17/2018 [facility] CHEM PANEL Globulin 3.0 g/dL 2.7 - 4.2 05/17/2018 [facility] CHEM PANEL AGAP 9.6 meq/L 10.0 - 20.0 05/17/2018 [facility] HEMATOLOGY Retic Auto 10.5 % 0.5 - 1.5 05/17/2018 [facility] Microcyte 1+ *ABN* (05/17/18 5:54 AM) None Seen 05/17/2018 [facility] Segs 60.3 % 45.0 - 75.0 05/17/2018 [facility] Lymphocytes 24.0 % 20.0 - 40.0 05/17/2018 [facility] Monocytes # 1.0 K/CMM 0.0 - 0.8 05/17/2018 [facility] Eosinophils # 0.4 K/CMM 0.0 - 0.5 05/17/2018 [facility] Monocytes 11.2 % 2.0 - 12.0 05/17/2018 [facility] HEMATOLOGY Basophils 0.5 % 0.0 - 1.0 05/17/2018 [facility] Eosinophils 4.0 % 0.0 - 4.0 05/17/2018 [facility] Neutrophils # 5.4 K/CMM 1.5 - 8.1 05/17/2018 [facility] Lymphocytes # 2.1 K/CMM 1.0 - 5.5 05/17/2018 [facility] Hct 22.1 % 36.0 - 48.0 05/17/2018 [facility] MCHC 31.7 g/dL 32.0 - 36.0 05/17/2018 [facility] RDW 17.8 % 11.5 - 14.5 05/17/2018 [facility] MCH 23.4 pg 27.0 - 31.0 05/17/2018 [facility] Platelet 186 K/CMM 133 - 450 05/17/2018 [facility] MPV 8.4 fL 7.4 - 10.4 05/17/2018 [facility] Hgb 7.0 g/dL 12.0 - 16.0 05/17/2018 Result Comment: Critical Result(s) called to NATASHA WAKEFIELD at 05/17/2018 07:13 byJB. Read back OK. [facility] RBC 3.00 M/CMM 4.20 - 5.40 05/17/2018 [facility] WBC 8.9 K/CMM 3.7 - 10.4 05/17/2018 [facility] MCV 73.9 fL 80.0 - 98.0 05/17/2018 [facility] Retic Auto 9.3 % 0.5 - 1.5 05/17/2018 [facility] CHEM PANEL Procalcitonin Lvl 0.06 ng/mL 0.00 - 0.10 05/16/2018 [facility] MCHC 31.6 g/dL 32.0 - 36.0 05/16/2018 [facility] MCH 23.4 pg 27.0 - 31.0 05/16/2018 [facility] MCV 74.0 fL 80.0 - 98.0 05/16/2018 [facility] WBC 11.7 K/CMM 3.7 - 10.4 05/16/2018 [facility] RBC 2.90 M/CMM 4.20 - 5.40 05/16/2018 [facility] MPV 8.3 fL 7.4 - 10.4 05/16/2018 [facility] RDW 18.0 % 11.5 - 14.5 05/16/2018 [facility] Platelet 172 K/CMM 133 - 450 05/16/2018 [facility] Segs 76.4 % 45.0 - 75.0 05/16/2018 [facility] Lymphocytes 12.7 % 20.0 - 40.0 05/16/2018 [facility] Basophils 0.5 % 0.0 - 1.0 05/16/2018 [facility] Eosinophils 1.5 % 0.0 - 4.0 05/16/2018 [facility] Monocytes 8.9 % 2.0 - 12.0 05/16/2018 [facility] Microcyte 1+ *ABN* (05/16/18 4:29 PM) None Seen 05/16/2018 [facility] Basophils # 0.1 K/CMM 0.0 - 0.2 05/16/2018 [facility] HEMATOLOGY Eosinophils # 0.2 K/CMM 0.0 - 0.5 05/16/2018 [facility] HEMATOLOGY Monocytes # 1.0 K/CMM 0.0 - 0.8 05/16/2018 [facility] HEMATOLOGY Lymphocytes # 1.5 K/CMM 1.0 - 5.5 05/16/2018 [facility] HEMATOLOGY Neutrophils # 8.9 K/CMM 1.5 - 8.1 05/16/2018 [facility] TOXICOLOGY Vanco Tr TND unknown 05/16/2018 [facility] TOXICOLOGY Vanco Tr 3.3 ug/ml 05/16/2018 [facility] BLOOD BANK RESULTS RBC product Product available 1 (05/15/18 9:16 PM) 05/16/2018 Result Comment: 05/16/2018 02:15 [id number] informed Mitchel Spencer 05/16/2018 02:15 MS [facility] CHEM PANEL eGFR 166 mL/min/1.73m2 05/15/2018 Result Comment: The eGFR is calculated using the CKD-EPI formula. In most young, healthy individuals the eGFR will be >90 mL/min/1.73m2. The eGFR declines with age. An eGFR of 60-89 may be normal in some populations, particularly the elderly, for whom the CKD-EPI formula has not been extensively validated. Use of the eGFR is not recommended in the following populations: Individuals with unstable creatinine concentrations, including patients and those with serious co-morbid conditions. Patients with extremes in muscle mass or diet. The data above are obtained from the National Kidney Disease Education Program (NKDEP) which additionally recommends that when the eGFR is used in patients with extremes of body mass index for purposes of drug dosing, the eGFR should be multiplied by the estimated BMI. [facility] CHEM PANEL A/G Ratio 1.8 0.7 - 1.6 05/15/2018 [facility] CHEM PANEL Globulin 2.3 g/dL 2.7 - 4.2 05/15/2018 [facility] CHEM PANEL Albumin Lvl 4.2 g/dL 3.5 - 5.0 05/15/2018 [facility] CHEM PANEL Total Protein 6.5 g/dL 6.4 - 8.4 05/15/2018 [facility] CHEM PANEL B/C Ratio 16 6 - 25 05/15/2018 [facility] CHEM PANEL Calcium Lvl 8.8 mg/dL 8.5 - 10.5 05/15/2018 [facility] CHEM PANEL AGAP 15.0 meq/L 10.0 - 20.0 05/15/2018 [facility] CHEM PANEL Alk Phos 73 unit/L 39 - 136 05/15/2018 [facility] CHEM PANEL AST 40 unit/L 0 - 37 05/15/2018 [facility] CHEM PANEL ALT 21 unit/L 0 - 65 05/15/2018 [facility] CHEM PANEL Bili Total 1.3 mg/dL 0.2 - 1.3 05/15/2018 [facility] CHEM PANEL CO2 24 meq/L 24 - 32 05/15/2018 [facility] CHEM PANEL Chloride Lvl 110 meq/L 95 - 109 05/15/2018 [facility] CHEM PANEL Potassium Lvl 4.0 meq/L 3.5 - 5.1 05/15/2018 [facility] CHEM PANEL Sodium Lvl 145 meq/L 135 - 145 05/15/2018 [facility] CHEM PANEL Glucose Lvl 109 mg/dL 70 - 99 05/15/2018 [facility] CHEM PANEL BUN 7 mg/dL 7 - 05/15/2018 [facility] CHEM PANEL Creatinine Lvl 0.45 mg/dL 0.50 - 1.40 05/15/2018 [facility] CHEM PANEL LDH 451 unit/L 98 - 192 05/15/2018 [facility] Retic Manual 11.4 % 0.5 - 1.5 05/15/2018 [facility] Tear Cell Moderate *ABN* (05/15/18 5:37 AM) None Seen 05/15/2018 [facility] Sickle Cell Moderate *ABN* (05/15/18 5:37 AM) None Seen 05/15/2018 [facility] NRBC 6 /100WB 05/15/2018 [facility] Atypical Lymphs 0.0 % <=0.0 % 05/15/2018 [facility] Plt Morph Normal (05/15/18 5:37 AM) 05/15/2018 [facility] Target Cell Moderate *ABN* (05/15/18 5:37 AM) None Seen 05/15/2018 [facility] HEMATOLOGY Bands 1.0 % 0.0 - 11.0 05/15/2018 [facility] Polychrom Moderate *ABN* (05/15/18 5:37 AM) None Seen 05/15/2018 [facility] CHEM PANEL Lactic Acid Lvl 1.0 mMol/L 0.5 - 2.2 05/15/2018 [facility] BLOOD BANK RESULTS Antibody Scrn Negative (05/14/18 10:30 PM) 05/15/2018 [facility] BLOOD BANK RESULTS ABO/Rh O POS 05/15/2018 [facility] Basophils # 0.1 K/CMM 0.0 - 0.2 05/15/2018 [facility] Large Plt Moderate *ABN* (05/14/18 10:28 PM) None Seen 05/15/2018 [facility] Sickle Cell Moderate *ABN* (05/14/18 10:28 PM) None Seen 05/15/2018 [facility] Tear Cell Moderate *ABN* (05/14/18 10:28 PM) None Seen 05/15/2018 [facility] Hypochrom 1+ (05/14/18 10:28 PM) None Seen 05/15/2018 [facility] Polychrom Moderate *ABN* (05/14/18 10:28 PM) None Seen 05/15/2018 [facility] Chest 1view DX Chest 1view DX EXAM: XR CHEST 1 VIEW DATE: 05/14/2018 10:00 PM CDT INDICATION: Chest pain. COMPARISON: 05/06/2018. TECHNIQUE: Frontal radiograph of the chest was obtained. FINDINGS: The examination is limited by low lung volumes, with basilar opacities and crowding of the central pulmonary vasculature. The cardiomediastinal silhouette is within normal limits. The costophrenic recesses are sharp and without effusion. No acute osseous abnormality is noted. IMPRESSION: Basilar opacities appear similar to prior examination, possibly representing atelectasis or pneumonia. SL: [id number] 05/14/2018 - - Read by: Tito Olson MD Dictated Date/time: 05/14/18 22:20 Electronically Signed by: Tito Olson MD 05/14/18 22:21 FINAL REPORT [facility] CHEM PANEL LDH 300 unit/L 98 - 192 05/09/2018 [facility] CHEM PANEL Glucose Lvl 81 mg/dL 70 - 99 05/09/2018 [facility] CHEM PANEL BUN 7 mg/dL 7 - 05/09/2018 [facility] CHEM PANEL Chloride Lvl 109 meq/L 95 - 109 05/09/2018 [facility] CHEM PANEL Calcium Lvl 8.5 mg/dL 8.5 - 10.5 05/09/2018 [facility] CHEM PANEL CO2 26 meq/L 24 - 32 05/09/2018 [facility] CHEM PANEL Sodium Lvl 146 meq/L 135 - 145 05/09/2018 [facility] CHEM PANEL Potassium Lvl 4.2 meq/L 3.5 - 5.1 05/09/2018 [facility] CHEM PANEL Creatinine Lvl 0.37 mg/dL 0.50 - 1.40 05/09/2018 [facility] CHEM PANEL eGFR 176 mL/min/1.73m2 05/09/2018 Result Comment: The eGFR is calculated using the CKD-EPI formula. In most young, healthy individuals the eGFR will be >90 mL/min/1.73m2. The eGFR declines with age. An eGFR of 60-89 may be normal in some populations, particularly the elderly, for whom the CKD-EPI formula has not been extensively validated. Use of the eGFR is not recommended in the following populations: Individuals with unstable creatinine concentrations, including patients and those with serious co-morbid conditions. Patients with extremes in muscle mass or diet. The data above are obtained from the National Kidney Disease Education Program (NKDEP) which additionally recommends that when the eGFR is used in patients with extremes of body mass index for purposes of drug dosing, the eGFR should be multiplied by the estimated BMI. [facility] CHEM PANEL AGAP 15.2 meq/L 10.0 - 20.0 05/09/2018 [facility] HEMATOLOGY MPV 8.7 fL 7.4 - 10.4 05/09/2018 [facility] HEMATOLOGY MCHC 32.7 g/dL 32.0 - 36.0 05/09/2018 [facility] HEMATOLOGY RBC X 10x6 2.88 M/CMM 4.20 - 5.40 05/09/2018 [facility] HEMATOLOGY WBC X 10x3 8.5 K/CMM 3.7 - 10.4 05/09/2018 [facility] HEMATOLOGY Hct 20.8 % 36.0 - 48.0 05/09/2018 [facility] HEMATOLOGY Hgb 6.8 g/dL 12.0 - 16.0 05/09/2018 Result Comment: Critical Result(s) called to Joe Mcmillan at 05/09/2018 07:54 by CN. Read back OK. [facility] HEMATOLOGY MCH 23.6 pg 27.0 - 31.0 05/09/2018 [facility] HEMATOLOGY MCV 72.1 fL 80.0 - 98.0 05/09/2018 [facility] HEMATOLOGY RDW 15.7 % 11.5 - 14.5 05/09/2018 [facility] HEMATOLOGY Platelet 233 K/CMM 133 - 450 05/09/2018 [facility] HEMATOLOGY Eosinophils 9.1 % 0.0 - 4.0 05/09/2018 [facility] HEMATOLOGY Basophils 1.4 % 0.0 - 1.0 05/09/2018 [facility] HEMATOLOGY Lymphocytes 31.9 % 20.0 - 40.0 05/09/2018 [facility] HEMATOLOGY Segs 46.9 % 45.0 - 75.0 05/09/2018 [facility] HEMATOLOGY Monocytes 10.7 % 2.0 - 12.0 05/09/2018 [facility] HEMATOLOGY Eosinophils # 0.8 K/CMM 0.0 - 0.5 05/09/2018 [facility] HEMATOLOGY Basophils # 0.1 K/CMM 0.0 - 0.2 05/09/2018 [facility] HEMATOLOGY Monocytes # 0.9 K/CMM 0.0 - 0.8 05/09/2018 [facility] HEMATOLOGY Neutrophils # 4.0 K/CMM 1.5 - 8.1 05/09/2018 [facility] HEMATOLOGY Lymphocytes # 2.7 K/CMM 1.0 - 5.5 05/09/2018 [facility] CHEM PANEL LDH 308 unit/L 98 - 192 05/08/2018 [facility] ELECTROLYTES AGAP 13.1 meq/L 10.0 - 20.0 05/08/2018 [facility] ELECTROLYTES eGFR 174 mL/min/1.73m2 05/08/2018 Result Comment: The eGFR is calculated using the CKD-EPI formula. In most young, healthy individuals the eGFR will be >90 mL/min/1.73m2. The eGFR declines with age. An eGFR of 60-89 may be normal in some populations, particularly the elderly, for whom the CKD-EPI formula has not been extensively validated. Use of the eGFR is not recommended in the following populations: Individuals with unstable creatinine concentrations, including patients and those with serious co-morbid conditions. Patients with extremes in muscle mass or diet. The data above are obtained from the National Kidney Disease Education Program (NKDEP) which additionally recommends that when the eGFR is used in patients with extremes of body mass index for purposes of drug dosing, the eGFR should be multiplied by the estimated BMI. [facility] ELECTROLYTES Creatinine Lvl 0.39 mg/dL 0.50 - 1.40 05/08/2018 [facility] ELECTROLYTES Potassium Lvl 4.1 meq/L 3.5 - 5.1 05/08/2018 [facility] ELECTROLYTES Sodium Lvl 145 meq/L 135 - 145 05/08/2018 [facility] ELECTROLYTES Chloride Lvl 109 meq/L 95 - 109 05/08/2018 [facility] ELECTROLYTES CO2 27 meq/L 24 - 32 05/08/2018 [facility] [facility] ELECTROLYTES Calcium Lvl 8.5 mg/dL 8.5 - 10.5 05/08/2018 [facility] ELECTROLYTES BUN 6 mg/dL 7 - 22 05/08/2018 [facility] ELECTROLYTES Glucose Lvl 86 mg/dL 70 - 99 05/08/2018 [facility] HEMATOLOGY Retic Auto 9.4 % 0.5 - 1.5 05/08/2018 [facility] HEMATOLOGY Anisocyte 1+ *ABN* (05/08/18 5:17 AM) None Seen 05/08/2018 [facility] HEMATOLOGY Microcyte 2+ *ABN* (05/08/18 5:17 AM) None Seen 05/08/2018 [facility] HEMATOLOGY Polychrom Slight 05/08/2018 [facility] HEMATOLOGY Target Cell Moderate *ABN* (05/08/18 5:17 AM) None Seen 05/08/2018 [facility] HEMATOLOGY Sickle Cell Slight *ABN* (05/08/18 5:17 AM) None Seen 05/08/2018 [facility] HEMATOLOGY Segs 57.0 % 45.0 - 75.0 05/08/2018 [facility] HEMATOLOGY Bands 0.0 % 0.0 - 11.0 05/08/2018 [facility] HEMATOLOGY Lymphocytes 30.0 % 20.0 - 40.0 05/08/2018 [facility] HEMATOLOGY Eosinophils # 0.3 K/CMM 0.0 - 0.5 05/08/2018 [facility] HEMATOLOGY Atypical Lymphs 0.0 % <=0.0 % 05/08/2018 [facility] HEMATOLOGY NRBC 2 /100WB 05/08/2018 [facility] HEMATOLOGY Monocytes 7.0 % 2.0 - 12.0 05/08/2018 [facility] HEMATOLOGY Eosinophils 3.0 % 0.0 - 4.0 05/08/2018 [facility] HEMATOLOGY Basophils 3.0 % 0.0 - 1.0 05/08/2018 [facility] HEMATOLOGY Basophils # 0.3 K/CMM 0.0 - 0.2 05/08/2018 [facility] HEMATOLOGY Lymphocytes # 3.1 K/CMM 1.0 - 5.5 05/08/2018 [facility] HEMATOLOGY Monocytes # 0.7 K/CMM 0.0 - 0.8 05/08/2018 [facility] HEMATOLOGY Neutrophils # 5.9 K/CMM 1.5 - 8.1 05/08/2018 [facility] HEMATOLOGY Plt Morph Normal (05/08/18 5:17 AM) 05/08/2018 [facility] HEMATOLOGY RDW 15.5 % 11.5 - 14.5 05/08/2018 [facility] HEMATOLOGY MCHC 33.3 g/dL 32.0 - 36.0 05/08/2018 [facility] HEMATOLOGY MCH 23.9 pg 27.0 - 31.0 05/08/2018 [facility] HEMATOLOGY MCV 71.7 fL 80.0 - 98.0 05/08/2018 [facility] HEMATOLOGY Platelet 234 K/CMM 133 - 450 05/08/2018 [facility] HEMATOLOGY MPV 8.5 fL 7.4 - 10.4 05/08/2018 [facility] HEMATOLOGY RBC 3.00 M/CMM 4.20 - 5.40 05/08/2018 [facility] HEMATOLOGY WBC 10.3 K/CMM 3.7 - 10.4 05/08/2018 [facility] HEMATOLOGY Hct 21.5 % 36.0 - 48.0 05/08/2018 [facility] HEMATOLOGY Hgb 7.2 g/dL 12.0 - 16.0 05/08/2018 [facility] CHEM PANEL Magnesium Lvl 2.6 mg/dL 1.8 - 2.4 05/07/2018 [facility] CHEM PANEL Phosphorus 5.3 mg/dL 2.5 - 4.5 05/07/2018 [facility] CHEM PANEL LDH 339 unit/L 98 - 192 05/07/2018 [facility] CHEM PANEL eGFR 168 mL/min/1.73m2 05/07/2018 Result Comment: The eGFR is calculated using the CKD-EPI formula. In most young, healthy individuals the eGFR will be >90 mL/min/1.73m2. The eGFR declines with age. An eGFR of 60-89 may be normal in some populations, particularly the elderly, for whom the CKD-EPI formula has not been extensively validated. Use of the eGFR is not recommended in the following populations: Individuals with unstable creatinine concentrations, including patients and those with serious co-morbid conditions. Patients with extremes in muscle mass or diet. The data above are obtained from the National Kidney Disease Education Program (NKDEP) which additionally recommends that when the eGFR is used in patients with extremes of body mass index for purposes of drug dosing, the eGFR should be multiplied by the estimated BMI. [facility] CHEM PANEL ALT 20 unit/L 0 - 65 05/07/2018 [facility] CHEM PANEL Bili Total 1.5 mg/dL 0.2 - 1.3 05/07/2018 [facility] CHEM PANEL AST 29 unit/L 0 - 37 05/07/2018 [facility] CHEM PANEL Alk Phos 73 unit/L 39 - 136 05/07/2018 [facility] CHEM PANEL Chloride Lvl 109 meq/L 95 - 109 05/07/2018 [facility] CHEM PANEL Albumin Lvl 3.7 g/dL 3.5 - 5.0 05/07/2018 [facility] CHEM PANEL Sodium Lvl 144 meq/L 135 - 145 05/07/2018 [facility] CHEM PANEL Creatinine Lvl 0.43 mg/dL 0.50 - 1.40 05/07/2018 [facility] CHEM PANEL Potassium Lvl 4.6 meq/L 3.5 - 5.1 05/07/2018 [facility] CHEM PANEL Calcium Lvl 8.7 mg/dL 8.5 - 10.5 05/07/2018 [facility] CHEM PANEL CO2 24 meq/L 24 - 32 05/07/2018 [facility] CHEM PANEL Total Protein 6.6 g/dL 6.4 - 8.4 05/07/2018 [facility] CHEM PANEL Glucose Lvl 78 mg/dL 70 - 99 05/07/2018 [facility] CHEM PANEL BUN 7 mg/dL 7 - 22 05/07/2018 [facility] CHEM PANEL Globulin 2.9 g/dL 2.7 - 4.2 05/07/2018 [facility] CHEM PANEL A/G Ratio 1.3 0.7 - 1.6 05/07/2018 [facility] CHEM PANEL AGAP 15.6 meq/L 10.0 - 20.0 05/07/2018 [facility] CHEM PANEL B/C Ratio 16 6 - 25 05/07/2018 [facility] HEMATOLOGY Target Cell Moderate *ABN* (05/07/18 3:11 AM) None Seen 05/07/2018 [facility] HEMATOLOGY Polychrom Slight 05/07/2018 [facility] HEMATOLOGY Sickle Cell Slight *ABN* (05/07/18 3:11 AM) None Seen 05/07/2018 [facility] HEMATOLOGY Microcyte 2+ *ABN* (05/07/18 3:11 AM) None Seen 05/07/2018 [facility] HEMATOLOGY Hypochrom 1+ (05/07/18 3:11 AM) None Seen 05/07/2018 [facility] HEMATOLOGY NRBC 4 /100WB 05/07/2018 [facility] HEMATOLOGY Basophils 1.0 % 0.0 - 1.0 05/07/2018 [facility] HEMATOLOGY Atypical Lymphs 0.0 % <=0.0 % 05/07/2018 [facility] HEMATOLOGY Plt Morph Normal (05/07/18 3:11 AM) 05/07/2018 [facility] HEMATOLOGY Anisocyte 2+ *ABN* (05/07/18 3:11 AM) None Seen 05/07/2018 [facility] HEMATOLOGY Lymphocytes 16.0 % 20.0 - 40.0 05/07/2018 [facility] HEMATOLOGY Monocytes 8.0 % 2.0 - 12.0 05/07/2018 [facility] HEMATOLOGY Segs 74.0 % 45.0 - 75.0 05/07/2018 [facility] HEMATOLOGY Bands 0.0 % 0.0 - 11.0 05/07/2018 [facility] HEMATOLOGY Eosinophils 1.0 % 0.0 - 4.0 05/07/2018 [facility] HEMATOLOGY Eosinophils # 0.1 K/CMM 0.0 - 0.5 05/07/2018 [facility] HEMATOLOGY Basophils # 0.1 K/CMM 0.0 - 0.2 05/07/2018 [facility] HEMATOLOGY Lymphocytes # 2.0 K/CMM 1.0 - 5.5 05/07/2018 [facility] HEMATOLOGY Monocytes # 1.0 K/CMM 0.0 - 0.8 05/07/2018 [facility] HEMATOLOGY Neutrophils # 9.3 K/CMM 1.5 - 8.1 05/07/2018 [facility] HEMATOLOGY MCH 23.3 pg 27.0 - 31.0 05/07/2018 [facility] HEMATOLOGY MCHC 32.4 g/dL 32.0 - 36.0 05/07/2018 [facility] HEMATOLOGY Hct 22.7 % 36.0 - 48.0 05/07/2018 [facility] HEMATOLOGY MCV 71.7 fL 80.0 - 98.0 05/07/2018 [facility] HEMATOLOGY Hgb 7.4 g/dL 12.0 - 16.0 05/07/2018 [facility] HEMATOLOGY RBC 3.17 M/CMM 4.20 - 5.40 05/07/2018 [facility] HEMATOLOGY WBC 12.6 K/CMM 3.7 - 10.4 05/07/2018 [facility] HEMATOLOGY Platelet 232 K/CMM 133 - 450 05/07/2018 [facility] HEMATOLOGY MPV 8.5 fL 7.4 - 10.4 05/07/2018 [facility] HEMATOLOGY RDW 16.1 % 11.5 - 14.5 05/07/2018 [facility] CHEM PANEL Procalcitonin Lvl <0.05 ng/mL 0.00 - 0.10 05/06/2018 [facility] HEMATOLOGY Retic Auto 8.3 % 0.5 - 1.5 05/06/2018 [facility] IMMUNOLOGY CDC HIV 4th GEN Negative *NA* (05/06/18 1:44 PM) Negative 05/06/2018 [facility] URINE AND STOOL UA RBC None Seen (05/06/18 12:24 PM) 0 - 2 05/06/2018 [facility] URINE AND STOOL UA Bacteria Few /HPF None Seen /HPF 05/06/2018 [facility] URINE AND STOOL UA Mucus None Seen (05/06/18 12:24 PM) None Seen 05/06/2018 [facility] URINE AND STOOL UA WBC None Seen (05/06/18 12:24 PM) None Seen 05/06/2018 [facility] URINE AND STOOL UA Sq Epi Few /LPF Few /LPF 05/06/2018 [facility] URINE AND STOOL UA Bili Negative *NA* (05/06/18 12:24 PM) Negative 05/06/2018 [facility] URINE AND STOOL UA Urobilinogen 0.2 EU/dL 0.1 - 1.0 05/06/2018 [facility] URINE AND STOOL UA Blood Negative (05/06/18 12:24 PM) Negative 05/06/2018 [facility] URINE AND STOOL UA pH 7.5 5.0 - 8.0 05/06/2018 [facility] URINE AND STOOL UA Protein Negative (05/06/18 12:24 PM) Negative 05/06/2018 [facility] URINE AND STOOL UA Ketones Negative *NA* (05/06/18 12:24 PM) Negative 05/06/2018 [facility] URINE AND STOOL UA Glucose Negative (05/06/18 12:24 PM) Negative 05/06/2018 [facility] URINE AND STOOL UA Color Light Yellow (05/06/18 12:24 PM) Yellow 05/06/2018 [facility] URINE AND STOOL UA Turbidity Clear (05/06/18 12:24 PM) Clear 05/06/2018 [facility] URINE AND STOOL UA Nitrite Negative (05/06/18 12:24 PM) Negative 05/06/2018 [facility] URINE AND STOOL UA Leuk Est Negative (05/06/18 12:24 PM) Negative 05/06/2018 [facility] URINE AND STOOL UA Spec Grav 1.010 <=1.030 05/06/2018 [facility] HEMATOLOGY Microcyte 2+ *ABN* (05/06/18 9:08 AM) None Seen 05/06/2018 [facility] HEMATOLOGY Polychrom Moderate *ABN* (05/06/18 9:08 AM) None Seen 05/06/2018 [facility] HEMATOLOGY Target Cell Moderate *ABN* (05/06/18 9:08 AM) None Seen 05/06/2018 [facility] HEMATOLOGY Sickle Cell Slight *ABN* (05/06/18 9:08 AM) None Seen 05/06/2018 [facility] HEMATOLOGY Anay Body Occasional *ABN* (05/06/18 9:08 AM) None Seen 05/06/2018 [facility] HEMATOLOGY Plt Morph Normal (05/06/18 9:08 AM) 05/06/2018 [facility] Chest 1view DX Chest 1view DX EXAM: XR CHEST AP 1 VIEW DATE: 05/06/2018 9:06 AM CDT INDICATION: - chest pain COMPARISON: None TECHNIQUE: Chest AP -- 1 View FINDINGS: Cardiac silhouette size is normal. Mild prominence of the central pulmonary vasculature is identified. Mediastinal and hilar contours are normal. Low lung volumes with bronchovascular crowding present. Patchy airspace opacities and subsegmental atelectasis present in the left lower lung zone. Minimal subsegmental atelectasis the right lung base present. Possible small left pleural effusion. Osseous changes related to sickle cell disease are similar to the prior exam. IMPRESSION: Interval development of mild patchy airspace opacities in the left lower lung zone. Differential possibilities include pneumonia. Possible small left pleural effusion Minimal right basilar subsegmental atelectasis. Osseous changes related to sickle cell disease. 05/06/2018 - - Read by: Gavino Byrne MD Dictated Date/time: 05/06/18 11:53 Electronically Signed by: Gavino Byrne MD 05/06/18 11:55 FINAL REPORT [facility] URINE AND STOOL UA Bacteria Few /HPF None Seen /HPF 02/10/2018 [facility] URINE AND STOOL UA RBC 0-2 /HPF 0 - 2 02/10/2018 [facility] URINE AND STOOL UA Sq Epi Occasional /LPF Few /LPF 02/10/2018 [facility] URINE AND STOOL UA WBC 0-2 /HPF None Seen /HPF 02/10/2018 [facility] URINE AND STOOL UA Nitrite Negative (02/09/18 8:30 PM) Negative 02/10/2018 [facility] URINE AND STOOL UA Urobilinogen 0.2 EU/dL 0.1 - 1.0 02/10/2018 [facility] URINE AND STOOL UA Leuk Est Negative (02/09/18 8:30 PM) Negative 02/10/2018 [facility] URINE AND STOOL UA Ketones Negative *NA* (02/09/18 8:30 PM) Negative 02/10/2018 [facility] URINE AND STOOL UA Bili Negative *NA* (02/09/18 8:30 PM) Negative 02/10/2018 [facility] URINE AND STOOL UA Blood Trace *ABN* (02/09/18 8:30 PM) Negative 02/10/2018 [facility] URINE AND STOOL UA Color Yellow *NA* (02/09/18 8:30 PM) Yellow 02/10/2018 [facility] URINE AND STOOL UA Protein Negative (02/09/18 8:30 PM) Negative 02/10/2018 [facility] URINE AND STOOL UA Glucose Negative (02/09/18 8:30 PM) Negative 02/10/2018 [facility] URINE AND STOOL UA pH 6.0 5.0 - 8.0 02/10/2018 [facility] URINE AND STOOL UA Turbidity Slight Cloudy (02/09/18 8:30 PM) Clear 02/10/2018 [facility] URINE AND STOOL UA Spec Grav <=1.005
*NA*
(02/09/18 8:30 PM) <=1.030 02/10/2018 [facility] CHEM PANEL eGFR 167 mL/min/1.73m2 02/09/2018 Result Comment: The eGFR is calculated using the CKD-EPI formula. In most young, healthy individuals the eGFR will be >90 mL/min/1.73m2. The eGFR declines with age. An eGFR of 60-89 may be normal in some populations, particularly the elderly, for whom the CKD-EPI formula has not been extensively validated. Use of the eGFR is not recommended in the following populations: Individuals with unstable creatinine concentrations, including patients and those with serious co-morbid conditions. Patients with extremes in muscle mass or diet. The data above are obtained from the National Kidney Disease Education Program (NKDEP) which additionally recommends that when the eGFR is used in patients with extremes of body mass index for purposes of drug dosing, the eGFR should be multiplied by the estimated BMI. [facility] CHEM PANEL BUN 6 mg/dL 7 - 22 02/09/2018 [facility] CHEM PANEL Creatinine Lvl 0.44 mg/dL 0.50 - 1.40 02/09/2018 [facility] CHEM PANEL Calcium Lvl 8.6 mg/dL 8.5 - 10.5 02/09/2018 [facility] CHEM PANEL CO2 25 meq/L 24 - 32 02/09/2018 [facility] CHEM PANEL Glucose Lvl 95 mg/dL 70 - 99 02/09/2018 [facility] CHEM PANEL Potassium Lvl 4.3 meq/L 3.5 - 5.1 02/09/2018 [facility] CHEM PANEL Sodium Lvl 143 meq/L 135 - 145 02/09/2018 [facility] CHEM PANEL Chloride Lvl 109 meq/L 95 - 109 02/09/2018 [facility] CHEM PANEL AGAP 13.3 meq/L 10.0 - 20.0 02/09/2018 [facility] HEMATOLOGY Platelet 316 K/CMM 133 - 450 02/09/2018 [facility] HEMATOLOGY RDW 19.8 % 11.5 - 14.5 02/09/2018 [facility] HEMATOLOGY MPV 7.9 fL 7.4 - 10.4 02/09/2018 [facility] HEMATOLOGY MCHC 32.1 g/dL 32.0 - 36.0 02/09/2018 [facility] HEMATOLOGY MCV 68.6 fL 80.0 - 98.0 02/09/2018 [facility] HEMATOLOGY Hgb 7.3 g/dL 12.0 - 16.0 02/09/2018 [facility] HEMATOLOGY Hct 22.7 % 36.0 - 48.0 02/09/2018 [facility] HEMATOLOGY MCH 22.1 pg 27.0 - 31.0 02/09/2018 [facility] HEMATOLOGY RBC 3.31 M/CMM 4.20 - 5.40 02/09/2018 [facility] HEMATOLOGY WBC 9.5 K/CMM 3.7 - 10.4 02/09/2018 [facility] HEMATOLOGY Eosinophils # 0.2 K/CMM 0.0 - 0.5 02/09/2018 [facility] HEMATOLOGY Monocytes # 1.0 K/CMM 0.0 - 0.8 02/09/2018 [facility] HEMATOLOGY Sickle Cell Slight *ABN* (02/09/18 5:53 PM) None Seen 02/09/2018 [facility] HEMATOLOGY Anay Body Occasional *ABN* (02/09/18 5:53 PM) None Seen 02/09/2018 [facility] HEMATOLOGY Spherocyte Occasional *ABN* (02/09/18 5:53 PM) None Seen 02/09/2018 [facility] HEMATOLOGY Microcyte 3+ *NA* (02/09/18 5:53 PM) None Seen 02/09/2018 [facility] HEMATOLOGY Hypochrom 1+ (02/09/18 5:53 PM) None Seen 02/09/2018 [facility] HEMATOLOGY Polychrom Moderate *ABN* (02/09/18 5:53 PM) None Seen 02/09/2018 [facility] HEMATOLOGY Anisocyte 1+ *ABN* (02/09/18 5:53 PM) None Seen 02/09/2018 [facility] HEMATOLOGY Target Cell Moderate *ABN* (02/09/18 5:53 PM) None Seen 02/09/2018 [facility] HEMATOLOGY Tear Cell Moderate *ABN* (02/09/18 5:53 PM) None Seen 02/09/2018 [facility] HEMATOLOGY Basophils # 0.1 K/CMM 0.0 - 0.2 02/09/2018 [facility] HEMATOLOGY Lymphocytes # 3.6 K/CMM 1.0 - 5.5 02/09/2018 [facility] HEMATOLOGY Schistocyte 1-3 per HPF (02/09/18 5:53 PM) None Seen 02/09/2018 [facility] HEMATOLOGY Segs 49.0 % 45.0 - 75.0 02/09/2018 [facility] HEMATOLOGY Lymphocytes 37.3 % 20.0 - 40.0 02/09/2018 [facility] HEMATOLOGY Monocytes 10.2 % 2.0 - 12.0 02/09/2018 [facility] HEMATOLOGY Eosinophils 2.1 % 0.0 - 4.0 02/09/2018 [facility] HEMATOLOGY Basophils 1.4 % 0.0 - 1.0 02/09/2018 [facility] HEMATOLOGY Segs-Bands # 4.7 K/CMM 1.5 - 8.1 02/09/2018 [facility] HEMATOLOGY Retic Auto 7.6 % 0.5 - 1.5 02/09/2018 [facility] Chest 2 views DX Chest 2 views DX EXAM: XR CHEST 2 VIEWS DATE: 02/09/2018 5:52 PM CDT INDICATION: - pain COMPARISON: Chest x-ray dated 10/28/2017. TECHNIQUE: PA and lateral chest radiographs [place] SECTION: ER FINDINGS: Lines, tubes and hardware: None. Lungs and pleura: There is improved aeration of the left lung base when compared to the prior examination. The lungs are otherwise clear. Pulmonary vascularity is normal. Heart and mediastinum: The heart size is normal. The mediastinal contours are normal. Bones: No acute bony abnormality is identified. Sclerotic changes are again seen throughout the visualized skeleton. H shaped vertebra are again noted. These are consistent with osseous sequela of sickle cell disease. IMPRESSION: 1. Improved aeration of the left lower lung. No acute cardiopulmonary process identified. 2. Osseous stigmata of sickle cell disease. 02/09/2018 - - This report was dictated by a [employer] Tender/Fellow. I have personally reviewed the images as well as the Resident's interpretation and agree with the findings. Read by: Gene Quintero MD Resident: Gene Quintero MD Dictated Date/time: 02/09/18 18:23 Electronically Signed by: Blayne Kraus MD 02/09/18 18:44 FINAL REPORT [facility] ENDOCRINOLOGY hCG Tot null 11/05/2017 [facility] HEMATOLOGY Retic Auto 14.1 % 0.5 - 1.5 11/05/2017 [facility] CHEM PANEL eGFR 150 mL/min/1.73m2 11/05/2017 Result Comment: The eGFR is calculated using the CKD-EPI formula. In most young, healthy individuals the eGFR will be >90 mL/min/1.73m2. The eGFR declines with age. An eGFR of 60-89 may be normal in some populations, particularly the elderly, for whom the CKD-EPI formula has not been extensively validated. Use of the eGFR is not recommended in the following populations: Individuals with unstable creatinine concentrations, including patients and those with serious co-morbid conditions. Patients with extremes in muscle mass or diet. The data above are obtained from the National Kidney Disease Education Program (NKDEP) which additionally recommends that when the eGFR is used in patients with extremes of body mass index for purposes of drug dosing, the eGFR should be multiplied by the estimated BMI. [facility] CHEM PANEL Potassium Lvl 3.9 meq/L 3.5 - 5.1 11/05/2017 [facility] CHEM PANEL Chloride Lvl 105 meq/L 95 - 109 11/05/2017 [facility] CHEM PANEL CO2 30 meq/L 24 - 32 11/05/2017 [facility] CHEM PANEL Calcium Lvl 9.1 mg/dL 8.5 - 10.5 11/05/2017 [facility] CHEM PANEL BUN 5 mg/dL 7 - 22 11/05/2017 [facility] CHEM PANEL Glucose Lvl 93 mg/dL 70 - 99 11/05/2017 [facility] CHEM PANEL Creatinine Lvl 0.61 mg/dL 0.50 - 1.40 11/05/2017 [facility] CHEM PANEL Sodium Lvl 141 meq/L 135 - 145 11/05/2017 [facility] CHEM PANEL AGAP 9.9 meq/L 10.0 - 20.0 11/05/2017 [facility] HEMATOLOGY Target Cell Moderate *ABN* (11/04/17 10:26 PM) None Seen 11/05/2017 [facility] HEMATOLOGY Schistocyte 1-3 per HPF (11/04/17 10:26 PM) None Seen 11/05/2017 [facility] HEMATOLOGY Sickle Cell Slight *ABN* (11/04/17 10:26 PM) None Seen 11/05/2017 [facility] HEMATOLOGY HJ Body Occasional *ABN* (11/04/17 10:26 PM) None Seen 11/05/2017 [facility] HEMATOLOGY Monocytes # 1.1 K/CMM 0.0 - 0.8 11/05/2017 [facility] HEMATOLOGY Eosinophils # 0.1 K/CMM 0.0 - 0.5 11/05/2017 [facility] HEMATOLOGY Polychrom Moderate *ABN* (11/04/17 10:26 PM) None Seen 11/05/2017 [facility] HEMATOLOGY Anisocyte 1+ *ABN* (11/04/17 10:26 PM) None Seen 11/05/2017 [facility] HEMATOLOGY Macrocyte 1+ *ABN* (11/04/17 10:26 PM) None Seen 11/05/2017 [facility] HEMATOLOGY Microcyte 2+ *ABN* (11/04/17 10:26 PM) None Seen 11/05/2017 [facility] HEMATOLOGY Hypochrom 1+ (11/04/17 10:26 PM) None Seen 11/05/2017 [facility] HEMATOLOGY Monocytes 11.0 % 2.0 - 12.0 11/05/2017 [facility] HEMATOLOGY Eosinophils 1.0 % 0.0 - 4.0 11/05/2017 [facility] HEMATOLOGY Bands 0.0 % 0.0 - 11.0 11/05/2017 [facility] HEMATOLOGY Metamyelocytes 1.0 % 0.0 - 1.0 11/05/2017 [facility] HEMATOLOGY Segs-Bands # 7.4 K/CMM 1.5 - 8.1 11/05/2017 [facility] HEMATOLOGY Lymphocytes # 1.7 K/CMM 1.0 - 5.5 11/05/2017 [facility] HEMATOLOGY Lymphocytes 16.0 % 20.0 - 40.0 11/05/2017 [facility] HEMATOLOGY Atypical Lymphs 0.0 % <=0.0 % 11/05/2017 [facility] HEMATOLOGY NRBC 34 /100WB 11/05/2017 [facility] HEMATOLOGY Plt Morph Normal (11/04/17 10:26 PM) 11/05/2017 [facility] HEMATOLOGY Segs 71.0 % 45.0 - 75.0 11/05/2017 [facility] HEMATOLOGY Platelet 317 K/CMM 133 - 450 11/05/2017 [facility] HEMATOLOGY MPV 7.9 fL 7.4 - 10.4 11/05/2017 [facility] HEMATOLOGY Hct 20.9 % 36.0 - 48.0 11/05/2017 [facility] HEMATOLOGY MCV 71.1 fL 80.0 - 98.0 11/05/2017 [facility] HEMATOLOGY MCH 22.6 pg 27.0 - 31.0 11/05/2017 [facility] HEMATOLOGY MCHC 31.8 g/dL 32.0 - 36.0 11/05/2017 [facility] HEMATOLOGY RDW 17.8 % 11.5 - 14.5 11/05/2017 [facility] HEMATOLOGY Hgb 6.7 g/dL 12.0 - 16.0 11/05/2017 Result Comment: Critical Result(s) called to [place]/ER at 11/04/2017 22:38 by VV. Read back OK. [facility] HEMATOLOGY WBC 10.4 K/CMM 3.7 - 10.4 11/05/2017 Result Comment: Automated WBC count (14.0) corrected due to presence of NRBC .corrected result called to Adelaide Stringer 11/04/2017 23:27. [facility] HEMATOLOGY RBC 2.95 M/CMM 4.20 - 5.40 11/05/2017 [facility] CHEM PANEL LDH 506 unit/L 98 - 192 11/03/2017 [facility] ELECTROLYTES AGAP 8.0 meq/L 10.0 - 20.0 11/03/2017 [facility] ELECTROLYTES eGFR 170 mL/min/1.73m2 11/03/2017 Result Comment: The eGFR is calculated using the CKD-EPI formula. In most young, healthy individuals the eGFR will be >90 mL/min/1.73m2. The eGFR declines with age. An eGFR of 60-89 may be normal in some populations, particularly the elderly, for whom the CKD-EPI formula has not been extensively validated. Use of the eGFR is not recommended in the following populations: Individuals with unstable creatinine concentrations, including patients and those with serious co-morbid conditions. Patients with extremes in muscle mass or diet. The data above are obtained from the National Kidney Disease Education Program (NKDEP) which additionally recommends that when the eGFR is used in patients with extremes of body mass index for purposes of drug dosing, the eGFR should be multiplied by the estimated BMI. [facility] ELECTROLYTES Creatinine Lvl 0.42 mg/dL 0.50 - 1.40 11/03/2017 [facility] ELECTROLYTES BUN 3 mg/dL 7 - 22 11/03/2017 [facility] ELECTROLYTES Chloride Lvl 108 meq/L 95 - 109 11/03/2017 [facility] ELECTROLYTES Sodium Lvl 140 meq/L 135 - 145 11/03/2017 [facility] ELECTROLYTES Potassium Lvl 4.0 meq/L 3.5 - 5.1 11/03/2017 [facility] ELECTROLYTES CO2 28 meq/L 24 - 32 11/03/2017 [facility] ELECTROLYTES Calcium Lvl 8.7 mg/dL 8.5 - 10.5 11/03/2017 [facility] ELECTROLYTES Glucose Lvl 86 mg/dL 70 - 99 11/03/2017 [facility] HEMATOLOGY WBC 11.3 K/CMM 3.7 - 10.4 11/03/2017 [facility] HEMATOLOGY MCV 69.9 fL 80.0 - 98.0 11/03/2017 [facility] HEMATOLOGY Hct 20.0 % 36.0 - 48.0 11/03/2017 Result Comment: Critical Result(s) called to [place] at 11/03/2017 06:25 by PG. Read back OK. [facility] HEMATOLOGY MPV 8.2 fL 7.4 - 10.4 11/03/2017 [facility] HEMATOLOGY MCHC 31.5 g/dL 32.0 - 36.0 11/03/2017 [facility] HEMATOLOGY MCH 22.0 pg 27.0 - 31.0 11/03/2017 [facility] HEMATOLOGY Platelet 216 K/CMM 133 - 450 11/03/2017 [facility] HEMATOLOGY RDW 16.5 % 11.5 - 14.5 11/03/2017 [facility] HEMATOLOGY Hgb 6.3 g/dL 12.0 - 16.0 11/03/2017 Result Comment: Critical Result(s) called to [place] at 11/03/2017 06:24 by PG. Read back OK. [facility] HEMATOLOGY RBC 2.85 M/CMM 4.20 - 5.40 11/03/2017 [facility] HEMATOLOGY Retic Auto 9.2 % 0.5 - 1.5 11/03/2017 [facility] HEMATOLOGY Lymphocytes # 3.4 K/CMM 1.0 - 5.5 11/03/2017 [facility] HEMATOLOGY Monocytes # 1.1 K/CMM 0.0 - 0.8 11/03/2017 [facility] HEMATOLOGY Segs-Bands # 6.5 K/CMM 1.5 - 8.1 11/03/2017 [facility] HEMATOLOGY Basophils 0.2 % 0.0 - 1.0 11/03/2017 [facility] HEMATOLOGY Hypochrom 1+ (11/03/17 5:30 AM) None Seen 11/03/2017 [facility] HEMATOLOGY Microcyte 2+ *ABN* (11/03/17 5:30 AM) None Seen 11/03/2017 [facility] HEMATOLOGY Anisocyte 1+ *ABN* (11/03/17 5:30 AM) None Seen 11/03/2017 [facility] HEMATOLOGY Eosinophils # 0.4 K/CMM 0.0 - 0.5 11/03/2017 [facility] HEMATOLOGY Sickle Cell Occasional *ABN* (11/03/17 5:30 AM) None Seen 11/03/2017 [facility] HEMATOLOGY Schistocyte 1-3 per HPF (11/03/17 5:30 AM) None Seen 11/03/2017 [facility] HEMATOLOGY Polychrom Moderate *ABN* (11/03/17 5:30 AM) None Seen 11/03/2017 [facility] HEMATOLOGY Lymphocytes 29.8 % 20.0 - 40.0 11/03/2017 [facility] HEMATOLOGY Monocytes 9.4 % 2.0 - 12.0 11/03/2017 [facility] HEMATOLOGY Eosinophils 3.2 % 0.0 - 4.0 11/03/2017 [facility] HEMATOLOGY Segs 57.4 % 45.0 - 75.0 11/03/2017 [facility] CHEM PANEL LDH 508 unit/L 98 - 192 11/02/2017 [facility] CHEM PANEL eGFR 181 mL/min/1.73m2 11/02/2017 Result Comment: The eGFR is calculated using the CKD-EPI formula. In most young, healthy individuals the eGFR will be >90 mL/min/1.73m2. The eGFR declines with age. An eGFR of 60-89 may be normal in some populations, particularly the elderly, for whom the CKD-EPI formula has not been extensively validated. Use of the eGFR is not recommended in the following populations: Individuals with unstable creatinine concentrations, including patients and those with serious co-morbid conditions. Patients with extremes in muscle mass or diet. The data above are obtained from the National Kidney Disease Education Program (NKDEP) which additionally recommends that when the eGFR is used in patients with extremes of body mass index for purposes of drug dosing, the eGFR should be multiplied by the estimated BMI. [facility] CHEM PANEL Potassium Lvl 3.6 meq/L 3.5 - 5.1 11/02/2017 [facility] CHEM PANEL Chloride Lvl 110 meq/L 95 - 109 11/02/2017 [facility] CHEM PANEL CO2 27 meq/L 24 - 32 11/02/2017 [facility] CHEM PANEL AGAP 13.6 meq/L 10.0 - 20.0 11/02/2017 [facility] CHEM PANEL Calcium Lvl 8.5 mg/dL 8.5 - 10.5 11/02/2017 [facility] CHEM PANEL Creatinine Lvl 0.34 mg/dL 0.50 - 1.40 11/02/2017 [facility] CHEM PANEL BUN 2 mg/dL 7 - 22 11/02/2017 [facility] CHEM PANEL Glucose Lvl 102 mg/dL 70 - 99 11/02/2017 [facility] CHEM PANEL Sodium Lvl 147 meq/L 135 - 145 11/02/2017 [facility] HEMATOLOGY Target Cell Moderate *ABN* (11/02/17 3:44 AM) None Seen 11/02/2017 [facility] HEMATOLOGY Schistocyte 1-3 per HPF (11/02/17 3:44 AM) None Seen 11/02/2017 [facility] HEMATOLOGY Polychrom Moderate *ABN* (11/02/17 3:44 AM) None Seen 11/02/2017 [facility] HEMATOLOGY Anay Body Occasional *ABN* (11/02/17 3:44 AM) None Seen 11/02/2017 [facility] HEMATOLOGY HJ Body Occasional *ABN* (11/02/17 3:44 AM) None Seen 11/02/2017 [facility] HEMATOLOGY Microcyte 2+ *ABN* (11/02/17 3:44 AM) None Seen 11/02/2017 [facility] HEMATOLOGY Spherocyte Rare *ABN* (11/02/17 3:44 AM) None Seen 11/02/2017 [facility] HEMATOLOGY Sickle Cell Occasional *ABN* (11/02/17 3:44 AM) None Seen 11/02/2017 [facility] HEMATOLOGY Rouleaux Present *ABN* (11/02/17 3:44 AM) None Seen 11/02/2017 [facility] HEMATOLOGY Basophils # 0.1 K/CMM 0.0 - 0.2 11/02/2017 [facility] HEMATOLOGY Hypochrom 1+ (11/02/17 3:44 AM) None Seen 11/02/2017 [facility] HEMATOLOGY Lymphocytes 38.6 % 20.0 - 40.0 11/02/2017 [facility] HEMATOLOGY Monocytes 9.4 % 2.0 - 12.0 11/02/2017 [facility] HEMATOLOGY Segs 46.0 % 45.0 - 75.0 11/02/2017 [facility] HEMATOLOGY Eosinophils 4.7 % 0.0 - 4.0 11/02/2017 [facility] HEMATOLOGY Monocytes # 0.7 K/CMM 0.0 - 0.8 11/02/2017 [facility] HEMATOLOGY Lymphocytes # 3.0 K/CMM 1.0 - 5.5 11/02/2017 [facility] HEMATOLOGY Segs-Bands # 3.6 K/CMM 1.5 - 8.1 11/02/2017 [facility] HEMATOLOGY Basophils 1.3 % 0.0 - 1.0 11/02/2017 [facility] HEMATOLOGY Eosinophils # 0.4 K/CMM 0.0 - 0.5 11/02/2017 [facility] HEMATOLOGY Retic Auto 6.3 % 0.5 - 1.5 11/02/2017 [facility] HEMATOLOGY MCH 22.3 pg 27.0 - 31.0 11/02/2017 [facility] HEMATOLOGY Hct 19.1 % 36.0 - 48.0 11/02/2017 Result Comment: Critical Result(s) called to SMITH. Jade at 11/02/2017 04:53 by AAA. Read back OK. [facility] HEMATOLOGY MCV 69.7 fL 80.0 - 98.0 11/02/2017 [facility] HEMATOLOGY Hgb 6.1 g/dL 12.0 - 16.0 11/02/2017 Result Comment: Critical Result(s) called to VAISHNAVI Jade at 11/02/2017 04:53 by AAA. Read back OK. [facility] HEMATOLOGY MCHC 31.9 g/dL 32.0 - 36.0 11/02/2017 [facility] HEMATOLOGY MPV 8.2 fL 7.4 - 10.4 11/02/2017 [facility] HEMATOLOGY RDW 16.1 % 11.5 - 14.5 11/02/2017 [facility] HEMATOLOGY Platelet 155 K/CMM 133 - 450 11/02/2017 [facility] HEMATOLOGY WBC 7.8 K/CMM 3.7 - 10.4 11/02/2017 [facility] HEMATOLOGY RBC 2.74 M/CMM 4.20 - 5.40 11/02/2017 [facility] CHEM PANEL eGFR 173 mL/min/1.73m2 11/01/2017 Result Comment: The eGFR is calculated using the CKD-EPI formula. In most young, healthy individuals the eGFR will be >90 mL/min/1.73m2. The eGFR declines with age. An eGFR of 60-89 may be normal in some populations, particularly the elderly, for whom the CKD-EPI formula has not been extensively validated. Use of the eGFR is not recommended in the following populations: Individuals with unstable creatinine concentrations, including patients and those with serious co-morbid conditions. Patients with extremes in muscle mass or diet. The data above are obtained from the National Kidney Disease Education Program (NKDEP) which additionally recommends that when the eGFR is used in patients with extremes of body mass index for purposes of drug dosing, the eGFR should be multiplied by the estimated BMI. [facility] CHEM PANEL Calcium Lvl 8.8 mg/dL 8.5 - 10.5 11/01/2017 [facility] CHEM PANEL CO2 25 meq/L 24 - 32 11/01/2017 [facility] CHEM PANEL Chloride Lvl 108 meq/L 95 - 109 11/01/2017 [facility] CHEM PANEL Potassium Lvl 3.9 meq/L 3.5 - 5.1 11/01/2017 [facility] CHEM PANEL Sodium Lvl 142 meq/L 135 - 145 11/01/2017 [facility] CHEM PANEL Creatinine Lvl 0.40 mg/dL 0.50 - 1.40 11/01/2017 [facility] CHEM PANEL Glucose Lvl 72 mg/dL 70 - 99 11/01/2017 [facility] CHEM PANEL BUN 6 mg/dL 7 - 22 11/01/2017 [facility] CHEM PANEL AGAP 12.9 meq/L 10.0 - 20.0 11/01/2017 [facility] CHEM PANEL LDH 630 unit/L 98 - 192 11/01/2017 [facility] HEMATOLOGY Schistocyte 1-3 per HPF (11/01/17 4:07 AM) None Seen 11/01/2017 [facility] HEMATOLOGY Target Cell Moderate *ABN* (11/01/17 4:07 AM) None Seen 11/01/2017 [facility] HEMATOLOGY Anay Body Occasional *ABN* (11/01/17 4:07 AM) None Seen 11/01/2017 [facility] HEMATOLOGY Sickle Cell Slight *ABN* (11/01/17 4:07 AM) None Seen 11/01/2017 [facility] HEMATOLOGY Hypochrom 1+ (11/01/17 4:07 AM) None Seen 11/01/2017 [facility] HEMATOLOGY Lymphocytes 20.0 % 20.0 - 40.0 11/01/2017 [facility] HEMATOLOGY Segs 73.0 % 45.0 - 75.0 11/01/2017 [facility] HEMATOLOGY Bands 0.0 % 0.0 - 11.0 11/01/2017 [facility] HEMATOLOGY Atypical Lymphs 0.0 % <=0.0 % 11/01/2017 [facility] HEMATOLOGY Eosinophils 1.0 % 0.0 - 4.0 11/01/2017 [facility] HEMATOLOGY Monocytes 6.0 % 2.0 - 12.0 11/01/2017 [facility] HEMATOLOGY Tot Cell Ct 100 11/01/2017 [facility] HEMATOLOGY Plt Morph Normal (11/01/17 4:07 AM) 11/01/2017 [facility] HEMATOLOGY NRBC 3 /100WB 11/01/2017 [facility] HEMATOLOGY Macrocyte 1+ *ABN* (11/01/17 4:07 AM) None Seen 11/01/2017 [facility] HEMATOLOGY Microcyte 1+ *ABN* (11/01/17 4:07 AM) None Seen 11/01/2017 [facility] HEMATOLOGY Segs-Bands # 8.7 K/CMM 1.5 - 8.1 11/01/2017 [facility] HEMATOLOGY Lymphocytes # 2.4 K/CMM 1.0 - 5.5 11/01/2017 [facility] HEMATOLOGY Monocytes # 0.7 K/CMM 0.0 - 0.8 11/01/2017 [facility] HEMATOLOGY Eosinophils # 0.1 K/CMM 0.0 - 0.5 11/01/2017 [facility] HEMATOLOGY RDW 16.6 % 11.5 - 14.5 11/01/2017 [facility] HEMATOLOGY Platelet 149 K/CMM 133 - 450 11/01/2017 [facility] HEMATOLOGY MPV 8.9 fL 7.4 - 10.4 11/01/2017 [facility] HEMATOLOGY MCHC 31.8 g/dL 32.0 - 36.0 11/01/2017 [facility] HEMATOLOGY Hgb 6.4 g/dL 12.0 - 16.0 11/01/2017 Result Comment: Critical Result(s) called to Yoanna Villalba at 11/01/2017 07:08 by ryley. Read back OK. [facility] HEMATOLOGY RBC 2.89 M/CMM 4.20 - 5.40 11/01/2017 [facility] HEMATOLOGY MCV 69.4 fL 80.0 - 98.0 11/01/2017 [facility] HEMATOLOGY Hct 20.0 % 36.0 - 48.0 11/01/2017 [facility] HEMATOLOGY MCH 22.1 pg 27.0 - 31.0 11/01/2017 [facility] HEMATOLOGY WBC 11.9 K/CMM 3.7 - 10.4 11/01/2017 [facility] HEMATOLOGY Retic Auto 6.6 % 0.5 - 1.5 10/31/2017 [facility] HEMATOLOGY Atypical Lymphs 0.0 % <=0.0 % 10/31/2017 [facility] HEMATOLOGY NRBC 10 /100WB 10/31/2017 [facility] HEMATOLOGY Bands 0.0 % 0.0 - 11.0 10/31/2017 [facility] HEMATOLOGY Polychrom Moderate *ABN* (10/31/17 3:03 AM) None Seen 10/31/2017 [facility] HEMATOLOGY Anisocyte 2+ *ABN* (10/31/17 3:03 AM) None Seen 10/31/2017 [facility] HEMATOLOGY Plt Morph Normal (10/31/17 3:03 AM) 10/31/2017 [facility] HEMATOLOGY Target Cell Slight 10/31/2017 [facility] HEMATOLOGY Toxic Gran Slight 10/31/2017 [facility] HEMATOLOGY Anay Body Occasional *ABN* (10/30/17 3:01 AM) None Seen 10/30/2017 [facility] HEMATOLOGY HJ Body Occasional *ABN* (10/30/17 3:01 AM) None Seen 10/30/2017 [facility] HEMATOLOGY Rouleaux Present *ABN* (10/30/17 3:01 AM) None Seen 10/30/2017 [facility] HEMATOLOGY Basophils 0.5 % 0.0 - 1.0 10/30/2017 [facility] HEMATOLOGY Atypical Lymphs 0.0 % <=0.0 % 10/29/2017 [facility] HEMATOLOGY Bands 0.0 % 0.0 - 11.0 10/29/2017 [facility] HEMATOLOGY NRBC 4 /100WB 10/29/2017 [facility] HEMATOLOGY PT 18.2 s 12.0 - 14.7 10/29/2017 [facility] HEMATOLOGY INR 1.50 0.85 - 1.17 10/29/2017 [facility] HEMATOLOGY PTT 36.9 s 22.9 - 35.8 10/29/2017 [facility] URINE AND STOOL UA Urobilinogen <=1.0 mg/dL 0.1 - 1.0 10/28/2017 [facility] URINE AND STOOL UA WBC 1 /HPF 0 - 5 10/28/2017 [facility] URINE AND STOOL UA Bacteria Occasional /HPF None Seen /HPF 10/28/2017 [facility] URINE AND STOOL UA Mucus Few /LPF None Seen /LPF 10/28/2017 [facility] URINE AND STOOL UA RBC 1 /HPF 0 - 2 10/28/2017 [facility] URINE AND STOOL UA Blood Trace *ABN* (10/28/17 5:15 PM) Negative 10/28/2017 [facility] URINE AND STOOL UA Bili Negative *NA* (10/28/17 5:15 PM) Negative 10/28/2017 [facility] URINE AND STOOL UA Glucose Negative mg/dL Negative mg/dL 10/28/2017 [facility] URINE AND STOOL UA Protein Negative mg/dL Negative mg/dL 10/28/2017 [facility] URINE AND STOOL UA Ketones Negative mg/dL Negative mg/dL 10/28/2017 [facility] URINE AND STOOL UA Sq Epi Occasional /LPF Few /LPF 10/28/2017 [facility] URINE AND STOOL UA Nitrite Negative (10/28/17 5:15 PM) Negative 10/28/2017 [facility] URINE AND STOOL UA Leuk Est Negative (10/28/17 5:15 PM) Negative 10/28/2017 [facility] URINE AND STOOL UA pH 6.5 5.0 - 8.0 10/28/2017 [facility] URINE AND STOOL UA Color Light Yellow *NA* (10/28/17 5:15 PM) Yellow 10/28/2017 [facility] URINE AND STOOL UA Turbidity Clear (10/28/17 5:15 PM) Clear 10/28/2017 [facility] URINE AND STOOL UA Spec Grav 1.006 <=1.030 10/28/2017 [facility] URINE CHEM U Preg Negative (10/28/17 5:15 PM) Negative 10/28/2017 [facility] CARDIAC ENZYMES Troponin-I null 0.00 - 0.40 10/28/2017 [facility] CHEM PANEL Bili Indirect 1.2 mg/dL 0.0 - 1.0 10/28/2017 [facility] CHEM PANEL Globulin 2.3 g/dL 2.7 - 4.2 10/28/2017 [facility] CHEM PANEL A/G Ratio 1.7 0.7 - 1.6 10/28/2017 [facility] CHEM PANEL AST 26 unit/L 0 - 37 10/28/2017 [facility] CHEM PANEL Alk Phos 82 unit/L 39 - 136 10/28/2017 [facility] CHEM PANEL Bili Total 1.5 mg/dL 0.2 - 1.3 10/28/2017 [facility] CHEM PANEL Bili Direct 0.3 mg/dL 0.0 - 0.3 10/28/2017 [facility] CHEM PANEL Albumin Lvl 3.9 g/dL 3.5 - 5.0 10/28/2017 [facility] [place] CHEM PANEL ALT 17 unit/L 0 - 65 10/28/2017 [facility] CHEM PANEL Total Protein 6.2 g/dL 6.4 - 8.4 10/28/2017 [facility] CHEM PANEL Lactic Acid Lvl 1.7 mMol/L 0.5 - 2.2 10/28/2017 [facility] CHEM PANEL Lactic Acid Lvl 2.3 mMol/L 0.5 - 2.2 10/28/2017 [facility] HEMATOLOGY Anisocyte 1+ *ABN* (10/28/17 11:31 AM) None Seen 10/28/2017 [facility] HEMATOLOGY Toxic Gran Moderate *ABN* (10/28/17 11:31 AM) None Seen 10/28/2017 [facility] HEMATOLOGY Plt Morph Normal (10/28/17 11:31 AM) 10/28/2017 [facility] HEMATOLOGY Metamyelocytes 2.0 % 0.0 - 1.0 10/28/2017 [facility] VIRAL - SEROLOGY Influ B Negative (10/28/17 11:31 AM) Negative 10/28/2017 [facility] VIRAL - SEROLOGY Influ A Negative (10/28/17 11:31 AM) Negative 10/28/2017 [facility] Chest 2 views DX Chest 2 views DX EXAM: XR CHEST 2 VIEWS DATE: 10/28/2017 11:07 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 [place] SECTION: ER TECHNIQUE: PA and lateral chest radiographs FINDINGS: Lines, tubes and hardware: None. Lungs and pleura: Airspace and linear opacities in the left lower lobe and decreased since 07/15/2017. No new focal opacities seen. No pneumothorax or pleural effusions. Pulmonary vascularity is normal. Heart and mediastinum: The heart size is normal. The mediastinal contours are normal. Bones: No acute bony abnormality is identified. Multilevel vertebral body endplate deformities are unchanged. Heterogeneous appearance of the humeri, scapula, and the clavicles are again identified, consistent with sequelae of sickle cell disease. IMPRESSION: Decreased airspace and linear opacities in the left lower lobe, which may represent scarring, subsegmental atelectasis, and/or residual pneumonia. Recommend clinical correlation with patient's symptoms. 10/28/2017 - - This report was dictated by a Foundry Tender/Fellow. I have personally reviewed the images as well as the Resident's interpretation and agree with the findings. Read by: Daniel Christensen MD Resident: Daniel Christensen MD Dictated Date/time: 10/28/17 12:32 Electronically Signed by: Gavino Byrne MD 10/28/17 12:43 FINAL REPORT [facility] CHEM PANEL LDH 360 unit/L 98 - 192 07/28/2017 [facility] ELECTROLYTES AGAP 11.5 meq/L 10.0 - 20.0 07/28/2017 [facility] ELECTROLYTES eGFR 182 mL/min/1.73m2 07/28/2017 Result Comment: The eGFR is calculated using the CKD-EPI formula. In most young, healthy individuals the eGFR will be >90 mL/min/1.73m2. The eGFR declines with age. An eGFR of 60-89 may be normal in some populations, particularly the elderly, for whom the CKD-EPI formula has not been extensively validated. Use of the eGFR is not recommended in the following populations: Individuals with unstable creatinine concentrations, including patients and those with serious co-morbid conditions. Patients with extremes in muscle mass or diet. The data above are obtained from the National Kidney Disease Education Program (NKDEP) which additionally recommends that when the eGFR is used in patients with extremes of body mass index for purposes of drug dosing, the eGFR should be multiplied by the estimated BMI. [facility] ELECTROLYTES BUN 2 mg/dL 7 - 22 07/28/2017 [facility] ELECTROLYTES Creatinine Lvl 0.35 mg/dL 0.50 - 1.40 07/28/2017 [facility] ELECTROLYTES Glucose Lvl 76 mg/dL 70 - 99 07/28/2017 [facility] ELECTROLYTES CO2 27 meq/L 24 - 32 07/28/2017 [facility] ELECTROLYTES Calcium Lvl 8.4 mg/dL 8.5 - 10.5 07/28/2017 [facility] ELECTROLYTES Sodium Lvl 143 meq/L 135 - 145 07/28/2017 [facility] ELECTROLYTES Potassium Lvl 3.5 meq/L 3.5 - 5.1 07/28/2017 [facility] ELECTROLYTES Chloride Lvl 108 meq/L 95 - 109 07/28/2017 [facility] HEMATOLOGY Basophils # 0.1 K/CMM 0.0 - 0.2 07/28/2017 [facility] HEMATOLOGY Lymphocytes # 2.2 K/CMM 1.0 - 5.5 07/28/2017 [facility] HEMATOLOGY Monocytes # 0.6 K/CMM 0.0 - 0.8 07/28/2017 [facility] HEMATOLOGY Segs-Bands # 3.7 K/CMM 1.5 - 8.1 07/28/2017 [facility] HEMATOLOGY Eosinophils # 0.2 K/CMM 0.0 - 0.5 07/28/2017 [facility] HEMATOLOGY Eosinophils 2.7 % 0.0 - 4.0 07/28/2017 [facility] HEMATOLOGY Basophils 1.3 % 0.0 - 1.0 07/28/2017 [facility] HEMATOLOGY Lymphocytes 32.5 % 20.0 - 40.0 07/28/2017 [facility] HEMATOLOGY Monocytes 9.3 % 2.0 - 12.0 07/28/2017 [facility] HEMATOLOGY Segs 54.2 % 45.0 - 75.0 07/28/2017 [facility] HEMATOLOGY Anisocyte 1+ *ABN* (07/28/17 2:51 AM) None Seen 07/28/2017 [facility] HEMATOLOGY Microcyte 2+ *ABN* (07/28/17 2:51 AM) None Seen 07/28/2017 [facility] HEMATOLOGY Retic Auto 7.8 % 0.5 - 1.5 07/28/2017 [facility] HEMATOLOGY MCV 72.1 fL 80.0 - 98.0 07/28/2017 [facility] HEMATOLOGY RDW 21.9 % 11.5 - 14.5 07/28/2017 [facility] HEMATOLOGY Platelet 244 K/CMM 133 - 450 07/28/2017 [facility] HEMATOLOGY MCH 22.8 pg 27.0 - 31.0 07/28/2017 [facility] HEMATOLOGY MCHC 31.6 g/dL 32.0 - 36.0 07/28/2017 [facility] HEMATOLOGY Hgb 7.2 g/dL 12.0 - 16.0 07/28/2017 [facility] HEMATOLOGY Hct 22.8 % 36.0 - 48.0 07/28/2017 [facility] HEMATOLOGY WBC 6.8 K/CMM 3.7 - 10.4 07/28/2017 [facility] HEMATOLOGY RBC 3.16 M/CMM 4.20 - 5.40 07/28/2017 [facility] HEMATOLOGY MPV 7.8 fL 7.4 - 10.4 07/28/2017 [facility] BLOOD BANK RESULTS ABO/Rh O POS 07/27/2017 [facility] BLOOD BANK RESULTS Antibody Scrn Negative (07/27/17 3:27 PM) 07/27/2017 [facility] BLOOD BANK RESULTS RBC product Modification Required (07/27/17 8:20 AM) 07/27/2017 [facility] HEMATOLOGY Anisocyte 1+ *ABN* (07/27/17 4:55 AM) None Seen 07/27/2017 [facility] HEMATOLOGY Microcyte 2+ *ABN* (07/27/17 4:55 AM) None Seen 07/27/2017 [facility] HEMATOLOGY Eosinophils # 0.2 K/CMM 0.0 - 0.5 07/27/2017 [facility] HEMATOLOGY Basophils # 0.1 K/CMM 0.0 - 0.2 07/27/2017 [facility] HEMATOLOGY Lymphocytes 29.5 % 20.0 - 40.0 07/27/2017 [facility] HEMATOLOGY Segs 56.3 % 45.0 - 75.0 07/27/2017 [facility] HEMATOLOGY Lymphocytes # 2.3 K/CMM 1.0 - 5.5 07/27/2017 [facility] HEMATOLOGY Basophils 0.9 % 0.0 - 1.0 07/27/2017 [facility] HEMATOLOGY Eosinophils 2.7 % 0.0 - 4.0 07/27/2017 [facility] HEMATOLOGY Monocytes 10.6 % 2.0 - 12.0 07/27/2017 [facility] HEMATOLOGY Monocytes # 0.8 K/CMM 0.0 - 0.8 07/27/2017 [facility] HEMATOLOGY Segs-Bands # 4.5 K/CMM 1.5 - 8.1 07/27/2017 [facility] HEMATOLOGY MPV 7.6 fL 7.4 - 10.4 07/27/2017 [facility] HEMATOLOGY MCH 23.0 pg 27.0 - 31.0 07/27/2017 [facility] HEMATOLOGY MCV 71.3 fL 80.0 - 98.0 07/27/2017 [facility] HEMATOLOGY RDW 22.0 % 11.5 - 14.5 07/27/2017 [facility] HEMATOLOGY MCHC 32.3 g/dL 32.0 - 36.0 07/27/2017 [facility] HEMATOLOGY Platelet 238 K/CMM 133 - 450 07/27/2017 [facility] HEMATOLOGY Hct 21.3 % 36.0 - 48.0 07/27/2017 [facility] HEMATOLOGY RBC 2.99 M/CMM 4.20 - 5.40 07/27/2017 [facility] HEMATOLOGY Hgb 6.9 g/dL 12.0 - 16.0 07/27/2017 Result Comment: Critical Result(s) called to Macey Cesar at 07/27/2017 05:48_ by RM_. Read back OK. [facility] HEMATOLOGY WBC 7.9 K/CMM 3.7 - 10.4 07/27/2017 [facility] CHEM PANEL eGFR 181 mL/min/1.73m2 07/27/2017 Result Comment: The eGFR is calculated using the CKD-EPI formula. In most young, healthy individuals the eGFR will be >90 mL/min/1.73m2. The eGFR declines with age. An eGFR of 60-89 may be normal in some populations, particularly the elderly, for whom the CKD-EPI formula has not been extensively validated. Use of the eGFR is not recommended in the following populations: Individuals with unstable creatinine concentrations, including patients and those with serious co-morbid conditions. Patients with extremes in muscle mass or diet. The data above are obtained from the National Kidney Disease Education Program (NKDEP) which additionally recommends that when the eGFR is used in patients with extremes of body mass index for purposes of drug dosing, the eGFR should be multiplied by the estimated BMI. [facility] CHEM PANEL CO2 27 meq/L 24 - 32 07/27/2017 [facility] CHEM PANEL AGAP 12.7 meq/L 10.0 - 20.0 07/27/2017 [facility] CHEM PANEL Calcium Lvl 8.8 mg/dL 8.5 - 10.5 07/27/2017 [facility] CHEM PANEL Sodium Lvl 146 meq/L 135 - 145 07/27/2017 [facility] CHEM PANEL Potassium Lvl 3.7 meq/L 3.5 - 5.1 07/27/2017 [facility] CHEM PANEL Chloride Lvl 110 meq/L 95 - 109 07/27/2017 [facility] CHEM PANEL Glucose Lvl 82 mg/dL 70 - 99 07/27/2017 [facility] CHEM PANEL Creatinine Lvl 0.35 mg/dL 0.50 - 1.40 07/27/2017 [facility] CHEM PANEL BUN 4 mg/dL 7 - 22 07/27/2017 [facility] CARDIAC ENZYMES Troponin-I null 0.00 - 0.40 07/27/2017 [facility] CARDIAC ENZYMES Troponin-T null 0.000 - 0.100 07/27/2017 [facility] CARDIAC ENZYMES Total CK 27 unit/L 12 - 191 07/27/2017 [facility] ANEMIA STUDY Ferritin Lvl 1431 ng/mL 5 - 204 07/27/2017 [facility] CARDIAC ENZYMES Total CK 24 unit/L 12 - 191 07/27/2017 [facility] CARDIAC ENZYMES Troponin-T null 0.000 - 0.100 07/27/2017 [facility] CARDIAC ENZYMES Troponin-I null 0.00 - 0.40 07/27/2017 [facility] Chest 1view DX Chest 1view DX EXAM: XR CHEST 1 VIEW DATE: 07/26/2017 10:30 PM CDT INDICATION: Chest pain COMPARISON: CXR 1 view 07/15/2017 at 12:12 AM TECHNIQUE: AP chest FINDINGS: Lines, tubes and hardware: None. Lungs and pleura: The lungs are incompletely expanded causing vascular crowding. The right costophrenic sulcus are sharp. The left is mildly obscured opacity. No pneumothorax identified. There is a left retrocardiac streaky opacity as well as a left lung base opacity which likely corresponds to the patient's previously seen consolidation. This appears to be mildly improved from the 07/15/2017 comparison made indication resolving pneumonia. Heart and mediastinum: The cardiomediastinal silhouette is normal in shape and size. Bones: No acute bony abnormality is identified with chronic vertebral body deformities. IMPRESSION: 1. Bilateral lower lobe opacities signifying radiographically improving pneumonia and/or atelectasis or lung scarring. 2. Chronic vertebral body deformities consistent with patient's sickle cell disease. 07/26/2017 - - This report was dictated by a Foundry Tender/Fellow. I have personally reviewed the images as well as the Resident's interpretation and agree with the findings. Read by: Gavino Rondon MD Resident: Gavino Rondon MD Dictated Date/time: 07/27/17 08:14 Electronically Signed by: Torsten Dale MD 07/27/17 11:05 FINAL REPORT [facility] CHEM PANEL Bili Direct 0.1 mg/dL 0.0 - 0.3 07/26/2017 [facility] CHEM PANEL Bili Total 0.7 mg/dL 0.2 - 1.3 07/26/2017 [facility] CHEM PANEL Bili Indirect 0.6 mg/dL 0.0 - 1.0 07/26/2017 [facility] CHEM PANEL LDH 461 unit/L 98 - 192 07/26/2017 [facility] ELECTROLYTES Chloride Lvl 109 meq/L 95 - 109 07/26/2017 [facility] ELECTROLYTES CO2 29 meq/L 24 - 32 07/26/2017 [facility] ELECTROLYTES Calcium Lvl 8.8 mg/dL 8.5 - 10.5 07/26/2017 [facility] ELECTROLYTES Sodium Lvl 145 meq/L 135 - 145 07/26/2017 [facility] ELECTROLYTES Potassium Lvl 3.9 meq/L 3.5 - 5.1 07/26/2017 [facility] ELECTROLYTES Creatinine Lvl 0.35 mg/dL 0.50 - 1.40 07/26/2017 [facility] ELECTROLYTES BUN 6 mg/dL 7 - 22 07/26/2017 [facility] ELECTROLYTES Glucose Lvl 83 mg/dL 70 - 99 07/26/2017 [facility] ELECTROLYTES eGFR 181 mL/min/1.73m2 07/26/2017 Result Comment: The eGFR is calculated using the CKD-EPI formula. In most young, healthy individuals the eGFR will be >90 mL/min/1.73m2. The eGFR declines with age. An eGFR of 60-89 may be normal in some populations, particularly the elderly, for whom the CKD-EPI formula has not been extensively validated. Use of the eGFR is not recommended in the following populations: Individuals with unstable creatinine concentrations, including patients and those with serious co-morbid conditions. Patients with extremes in muscle mass or diet. The data above are obtained from the National Kidney Disease Education Program (NKDEP) which additionally recommends that when the eGFR is used in patients with extremes of body mass index for purposes of drug dosing, the eGFR should be multiplied by the estimated BMI. [facility] ELECTROLYTES AGAP 10.9 meq/L 10.0 - 20.0 07/26/2017 [facility] HEMATOLOGY Retic Auto 6.5 % 0.5 - 1.5 07/26/2017 [facility] HEMATOLOGY MPV 8.0 fL 7.4 - 10.4 07/26/2017 [facility] HEMATOLOGY RDW 22.5 % 11.5 - 14.5 07/26/2017 [facility] HEMATOLOGY Platelet 300 K/CMM 133 - 450 07/26/2017 [facility] HEMATOLOGY MCHC 32.1 g/dL 32.0 - 36.0 07/26/2017 [facility] HEMATOLOGY MCH 23.2 pg 27.0 - 31.0 07/26/2017 [facility] HEMATOLOGY MCV 72.1 fL 80.0 - 98.0 07/26/2017 [facility] HEMATOLOGY WBC 7.7 K/CMM 3.7 - 10.4 07/26/2017 [facility] HEMATOLOGY RBC 3.04 M/CMM 4.20 - 5.40 07/26/2017 [facility] HEMATOLOGY Hgb 7.0 g/dL 12.0 - 16.0 07/26/2017 Result Comment: Critical Result(s) called to Je DEL REAL at 07/26/2017 06:28 by ECA. Read back OK. [facility] HEMATOLOGY Hct 21.9 % 36.0 - 48.0 07/26/2017 [facility] HEMATOLOGY Sickle Cell Occasional *ABN* (07/26/17 4:43 AM) None Seen 07/26/2017 [facility] HEMATOLOGY Schistocyte 1-3 per HPF (07/26/17 4:43 AM) None Seen 07/26/2017 [facility] HEMATOLOGY Spherocyte Rare *ABN* (07/26/17 4:43 AM) None Seen 07/26/2017 [facility] HEMATOLOGY Polychrom Moderate *ABN* (07/26/17 4:43 AM) None Seen 07/26/2017 [facility] HEMATOLOGY Microcyte 2+ *ABN* (07/26/17 4:43 AM) None Seen 07/26/2017 [facility] HEMATOLOGY Anisocyte 1+ *ABN* (07/26/17 4:43 AM) None Seen 07/26/2017 [facility] HEMATOLOGY Hypochrom 1+ (07/26/17 4:43 AM) None Seen 07/26/2017 [facility] HEMATOLOGY Target Cell Slight 07/26/2017 [facility] HEMATOLOGY Segs 62.0 % 45.0 - 75.0 07/26/2017 [facility] HEMATOLOGY Bands 0.0 % 0.0 - 11.0 07/26/2017 [facility] HEMATOLOGY Lymphocytes 27.0 % 20.0 - 40.0 07/26/2017 [facility] HEMATOLOGY Monocytes 7.0 % 2.0 - 12.0 07/26/2017 [facility] HEMATOLOGY Eosinophils 3.0 % 0.0 - 4.0 07/26/2017 [facility] HEMATOLOGY Myelocytes 1.0 % <=0.0 % 07/26/2017 [facility] HEMATOLOGY Atypical Lymphs 0.0 % <=0.0 % 07/26/2017 [facility] HEMATOLOGY Plt Morph Normal (07/26/17 4:43 AM) 07/26/2017 [facility] HEMATOLOGY Segs-Bands # 4.8 K/CMM 1.5 - 8.1 07/26/2017 [facility] HEMATOLOGY Lymphocytes # 2.1 K/CMM 1.0 - 5.5 07/26/2017 [facility] HEMATOLOGY Eosinophils # 0.2 K/CMM 0.0 - 0.5 07/26/2017 [facility] HEMATOLOGY Monocytes # 0.5 K/CMM 0.0 - 0.8 07/26/2017 [facility] CHEM PANEL LDH 379 unit/L 98 - 192 07/25/2017 [facility] CHEM PANEL Bili Indirect 0.4 mg/dL 0.0 - 1.0 07/25/2017 [facility] CHEM PANEL Bili Direct 0.1 mg/dL 0.0 - 0.3 07/25/2017 [facility] CHEM PANEL Bili Total 0.5 mg/dL 0.2 - 1.3 07/25/2017 [facility] HEMATOLOGY Retic Auto 6.8 % 0.5 - 1.5 07/25/2017 [facility] HEMATOLOGY Basophils # 0.1 K/CMM 0.0 - 0.2 07/25/2017 [facility] HEMATOLOGY Sickle Cell Rare *ABN* (07/25/17 3:43 AM) None Seen 07/25/2017 [facility] HEMATOLOGY Target Cell Moderate *ABN* (07/25/17 3:43 AM) None Seen 07/25/2017 [facility] HEMATOLOGY Hypochrom 1+ (07/25/17 3:43 AM) None Seen 07/25/2017 [facility] HEMATOLOGY Basophils 0.7 % 0.0 - 1.0 07/25/2017 [facility] HEMATOLOGY Plt Morph Normal (07/25/17 3:43 AM) 07/25/2017 [facility] CHEM PANEL Bili Direct 0.2 mg/dL 0.0 - 0.3 07/24/2017 [facility] CHEM PANEL Bili Total 0.5 mg/dL 0.2 - 1.3 07/24/2017 [facility] CHEM PANEL Bili Indirect 0.3 mg/dL 0.0 - 1.0 07/24/2017 [facility] HEMATOLOGY Polychrom Moderate *ABN* (07/24/17 3:06 AM) None Seen 07/24/2017 [facility] HEMATOLOGY Sickle Cell Rare *ABN* (07/24/17 3:06 AM) None Seen 07/24/2017 [facility] HEMATOLOGY Polychrom Moderate *ABN* (07/23/17 6:31 AM) None Seen 07/23/2017 [facility] HEMATOLOGY Target Cell Moderate *ABN* (07/23/17 6:31 AM) None Seen 07/23/2017 [facility] HEMATOLOGY Atypical Lymphs 0.0 % <=0.0 % 07/23/2017 [facility] HEMATOLOGY Plt Morph Normal (07/23/17 6:31 AM) 07/23/2017 [facility] HEMATOLOGY Macrocyte 1+ *ABN* (07/23/17 6:31 AM) None Seen 07/23/2017 [facility] HEMATOLOGY Bands 0.0 % 0.0 - 11.0 07/23/2017 [facility] HEMATOLOGY Hypochrom 1+ (07/22/17 4:10 AM) None Seen 07/22/2017 [facility] BLOOD BANK RESULTS ABO/Rh O POS 07/21/2017 [facility] BLOOD BANK RESULTS Antibody Scrn Negative (07/21/17 6:23 AM) 07/21/2017 [facility] BLOOD BANK RESULTS RBC product Product available (07/21/17 5:42 AM) 07/21/2017 [facility] HEMATOLOGY Schistocyte 1-3 per HPF (07/21/17 4:31 AM) None Seen 07/21/2017 [facility] HEMATOLOGY Spherocyte Rare *ABN* (07/21/17 4:31 AM) None Seen 07/21/2017 [facility] HEMATOLOGY Bands 0.0 % 0.0 - 11.0 07/21/2017 [facility] HEMATOLOGY NRBC 3 /100WB 07/21/2017 [facility] HEMATOLOGY Atypical Lymphs 0.0 % <=0.0 % 07/21/2017 [facility] CHEM PANEL AST 12 unit/L 0 - 37 07/19/2017 [facility] CHEM PANEL ALT 14 unit/L 0 - 65 07/19/2017 [facility] CHEM PANEL Alk Phos 106 unit/L 39 - 136 07/19/2017 [facility] CHEM PANEL A/G Ratio 0.9 0.7 - 1.6 07/19/2017 [facility] CHEM PANEL Globulin 3.5 g/dL 2.7 - 4.2 07/19/2017 [facility] CHEM PANEL Albumin Lvl 3.0 g/dL 3.5 - 5.0 07/19/2017 [facility] CHEM PANEL Total Protein 6.5 g/dL 6.4 - 8.4 07/19/2017 [facility] CHEM PANEL B/C Ratio 11 6 - 25 07/19/2017 [facility] CHEM PANEL Magnesium Lvl 2.3 mg/dL 1.8 - 2.4 07/18/2017 [facility] CHEM PANEL Phosphorus 4.0 mg/dL 2.5 - 4.5 07/18/2017 [facility] HEMATOLOGY NRBC 2 /100WB 07/18/2017 [facility] BLOOD BANK RESULTS Antibody Scrn Negative (07/16/17 5:23 PM) 07/16/2017 [facility] BLOOD BANK RESULTS ABO/Rh O POS 07/16/2017 [facility] BLOOD BANK RESULTS RBC product Product available (07/16/17 4:39 PM) 07/16/2017 [facility] TOXICOLOGY Vanco Lvl 13.0 ug/ml 07/16/2017 [facility] HEMATOLOGY Metamyelocytes 2.0 % 0.0 - 1.0 07/15/2017 [facility] HEMATOLOGY NRBC 2 /100WB 07/15/2017 [facility] Chest 2 views DX Chest 2 views DX EXAM: XR CHEST 2 VIEWS DATE: 07/14/2017 at 0012 hours INDICATION: - pain sickle cell crisis COMPARISON: Chest radiograph 07/09/2017. CTA chest 07/10/2017. TECHNIQUE: PA and lateral chest radiographs FINDINGS: Lines, tubes and hardware: None. Lungs and pleura: The left lower lobe airspace opacities not significantly changed since the comparison exam. No new airspace disease is identified. No pleural effusions. No pneumothorax. Heart and mediastinum: The heart size is normal. The mediastinal contours are normal. Bones: No acute bone abnormality. 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 Cholecystectomy clips are present. IMPRESSION: Persistent left lower lobe pneumonia. Radiographic findings of sickle cell disease. [place] SECTION: ER 07/15/2017 - - This report was dictated by a Foundry Tender/Fellow. I have personally reviewed the images as well as the Resident's interpretation and agree with the findings. Read by: Mi Dawn MD Resident: Mi Dawn MD Dictated Date/time: 07/15/17 00:31 Electronically Signed by: Qiana Jean MD 07/15/17 01:52 FINAL REPORT [facility] CHEM PANEL Magnesium Lvl 2.2 mg/dL 1.8 - 2.4 07/12/2017 [facility] CHEM PANEL Phosphorus 3.5 mg/dL 2.5 - 4.5 07/12/2017 [facility] CHEM PANEL Bili Indirect 0.7 mg/dL 0.0 - 1.0 07/12/2017 [facility] CHEM PANEL Bili Total 1.1 mg/dL 0.2 - 1.3 07/12/2017 [facility] CHEM PANEL Bili Direct 0.4 mg/dL 0.0 - 0.3 07/12/2017 [facility] ELECTROLYTES CO2 25 meq/L 24 - 32 07/12/2017 [facility] ELECTROLYTES Calcium Lvl 9.3 mg/dL 8.5 - 10.5 07/12/2017 [facility] ELECTROLYTES Chloride Lvl 105 meq/L 95 - 109 07/12/2017 [facility] ELECTROLYTES eGFR 184 mL/min/1.73m2 07/12/2017 Result Comment: The eGFR is calculated using the CKD-EPI formula. In most young, healthy individuals the eGFR will be >90 mL/min/1.73m2. The eGFR declines with age. An eGFR of 60-89 may be normal in some populations, particularly the elderly, for whom the CKD-EPI formula has not been extensively validated. Use of the eGFR is not recommended in the following populations: Individuals with unstable creatinine concentrations, including patients and those with serious co-morbid conditions. Patients with extremes in muscle mass or diet. The data above are obtained from the National Kidney Disease Education Program (NKDEP) which additionally recommends that when the eGFR is used in patients with extremes of body mass index for purposes of drug dosing, the eGFR should be multiplied by the estimated BMI. [facility] ELECTROLYTES Potassium Lvl 3.4 meq/L 3.5 - 5.1 07/12/2017 [facility] ELECTROLYTES Sodium Lvl 142 meq/L 135 - 145 07/12/2017 [facility] ELECTROLYTES Creatinine Lvl 0.33 mg/dL 0.50 - 1.40 07/12/2017 [facility] ELECTROLYTES BUN 5 mg/dL 7 - 22 07/12/2017 [facility] ELECTROLYTES Glucose Lvl 91 mg/dL 70 - 99 07/12/2017 [facility] ELECTROLYTES AGAP 15.4 meq/L 10.0 - 20.0 07/12/2017 [facility] HEMATOLOGY Segs 63.7 % 45.0 - 75.0 07/12/2017 [facility] HEMATOLOGY Monocytes # 1.0 K/CMM 0.0 - 0.8 07/12/2017 [facility] HEMATOLOGY Basophils # 0.1 K/CMM 0.0 - 0.2 07/12/2017 [facility] HEMATOLOGY Microcyte 3+ *NA* (07/12/17 3:26 AM) None Seen 07/12/2017 [facility] HEMATOLOGY Eosinophils # 0.1 K/CMM 0.0 - 0.5 07/12/2017 [facility] HEMATOLOGY Anisocyte 1+ *ABN* (07/12/17 3:26 AM) None Seen 07/12/2017 [facility] HEMATOLOGY Hypochrom 2+ (07/12/17 3:26 AM) None Seen 07/12/2017 [facility] HEMATOLOGY Target Cell Slight 07/12/2017 [facility] HEMATOLOGY Monocytes 8.9 % 2.0 - 12.0 07/12/2017 [facility] HEMATOLOGY Basophils 0.8 % 0.0 - 1.0 07/12/2017 [facility] HEMATOLOGY Lymphocytes # 3.0 K/CMM 1.0 - 5.5 07/12/2017 [facility] HEMATOLOGY Eosinophils 0.9 % 0.0 - 4.0 07/12/2017 [facility] HEMATOLOGY Lymphocytes 25.7 % 20.0 - 40.0 07/12/2017 [facility] HEMATOLOGY Segs-Bands # 7.5 K/CMM 1.5 - 8.1 07/12/2017 [facility] HEMATOLOGY MPV 8.5 fL 7.4 - 10.4 07/12/2017 [facility] HEMATOLOGY Platelet 471 K/CMM 133 - 450 07/12/2017 [facility] HEMATOLOGY RDW 21.4 % 11.5 - 14.5 07/12/2017 [facility] HEMATOLOGY MCHC 32.1 g/dL 32.0 - 36.0 07/12/2017 [facility] HEMATOLOGY MCV 68.8 fL 80.0 - 98.0 07/12/2017 [facility] HEMATOLOGY RBC 3.45 M/CMM 4.20 - 5.40 07/12/2017 [facility] HEMATOLOGY WBC 11.7 K/CMM 3.7 - 10.4 07/12/2017 [facility] HEMATOLOGY Hct 23.7 % 36.0 - 48.0 07/12/2017 [facility] HEMATOLOGY Hgb 7.6 g/dL 12.0 - 16.0 07/12/2017 [facility] HEMATOLOGY MCH 22.1 pg 27.0 - 31.0 07/12/2017 [facility] HEMATOLOGY Retic Auto 9.3 % 0.5 - 1.5 07/12/2017 [facility] PARATHYROID PROFILE Ca Ion WB 1.23 mMol/L 1.05 - 1.25 07/12/2017 [facility] PARATHYROID PROFILE Ca Norm WB 1.20 mMol/L 1.05 - 1.25 07/12/2017 [facility] TOXICOLOGY Vanco Tr TND 1800 07/11/2017 [facility] TOXICOLOGY Vanco Tr 21.5 ug/ml 07/11/2017 [facility] FUNGAL - SEROLOGY U Hist Ag Intrp NEGATIVE 07/11/2017 Result Comment: REFERENCE INTERVAL: NONE DETECTED [facility] [id number] [facility] [place] [place] [id number] [facility] FUNGAL - SEROLOGY U Histo Ag NONE DETECTED 07/11/2017 [facility] CHEM PANEL Bili Indirect 1.1 mg/dL 0.0 - 1.0 07/11/2017 [facility] CHEM PANEL Bili Total 1.5 mg/dL 0.2 - 1.3 07/11/2017 [facility] CHEM PANEL Bili Direct 0.4 mg/dL 0.0 - 0.3 07/11/2017 [facility] CHEM PANEL LDH 1037 unit/L 98 - 192 07/11/2017 [facility] CHEM PANEL Phosphorus 3.2 mg/dL 2.5 - 4.5 07/11/2017 [facility] CHEM PANEL Magnesium Lvl 2.2 mg/dL 1.8 - 2.4 07/11/2017 [facility] ELECTROLYTES CO2 21 meq/L 24 - 32 07/11/2017 [facility] ELECTROLYTES Calcium Lvl 8.7 mg/dL 8.5 - 10.5 07/11/2017 [facility] ELECTROLYTES eGFR 184 mL/min/1.73m2 07/11/2017 Result Comment: The eGFR is calculated using the CKD-EPI formula. In most young, healthy individuals the eGFR will be >90 mL/min/1.73m2. The eGFR declines with age. An eGFR of 60-89 may be normal in some populations, particularly the elderly, for whom the CKD-EPI formula has not been extensively validated. Use of the eGFR is not recommended in the following populations: Individuals with unstable creatinine concentrations, including patients and those with serious co-morbid conditions. Patients with extremes in muscle mass or diet. The data above are obtained from the National Kidney Disease Education Program (NKDEP) which additionally recommends that when the eGFR is used in patients with extremes of body mass index for purposes of drug dosing, the eGFR should be multiplied by the estimated BMI. [facility] ELECTROLYTES Potassium Lvl 4.2 meq/L 3.5 - 5.1 07/11/2017 [facility] ELECTROLYTES Chloride Lvl 103 meq/L 95 - 109 07/11/2017 [facility] ELECTROLYTES Sodium Lvl 137 meq/L 135 - 145 07/11/2017 [facility] ELECTROLYTES BUN 6 mg/dL 7 - 22 07/11/2017 [facility] ELECTROLYTES Creatinine Lvl 0.33 mg/dL 0.50 - 1.40 07/11/2017 [facility] ELECTROLYTES Glucose Lvl 92 mg/dL 70 - 99 07/11/2017 [facility] ELECTROLYTES AGAP 17.2 meq/L 10.0 - 20.0 07/11/2017 [facility] HEMATOLOGY Eosinophils # 0.1 K/CMM 0.0 - 0.5 07/11/2017 [facility] HEMATOLOGY Basophils # 0.1 K/CMM 0.0 - 0.2 07/11/2017 [facility] HEMATOLOGY Anisocyte 1+ *ABN* (07/11/17 3:59 AM) None Seen 07/11/2017 [facility] HEMATOLOGY Microcyte 2+ *ABN* (07/11/17 3:59 AM) None Seen 07/11/2017 [facility] HEMATOLOGY Segs-Bands # 11.3 K/CMM 1.5 - 8.1 07/11/2017 [facility] HEMATOLOGY Monocytes # 1.6 K/CMM 0.0 - 0.8 07/11/2017 [facility] HEMATOLOGY Lymphocytes # 2.7 K/CMM 1.0 - 5.5 07/11/2017 [facility] HEMATOLOGY Basophils 0.9 % 0.0 - 1.0 07/11/2017 [facility] HEMATOLOGY Monocytes 10.0 % 2.0 - 12.0 07/11/2017 [facility] HEMATOLOGY Eosinophils 0.5 % 0.0 - 4.0 07/11/2017 [facility] HEMATOLOGY Segs 71.6 % 45.0 - 75.0 07/11/2017 [facility] HEMATOLOGY Lymphocytes 17.0 % 20.0 - 40.0 07/11/2017 [facility] HEMATOLOGY Retic Auto 8.0 % 0.5 - 1.5 07/11/2017 [facility] HEMATOLOGY Platelet 397 K/CMM 133 - 450 07/11/2017 [facility] HEMATOLOGY RDW 22.2 % 11.5 - 14.5 07/11/2017 [facility] HEMATOLOGY MPV 8.7 fL 7.4 - 10.4 07/11/2017 [facility] HEMATOLOGY Hct 22.7 % 36.0 - 48.0 07/11/2017 [facility] HEMATOLOGY MCH 22.1 pg 27.0 - 31.0 07/11/2017 [facility] HEMATOLOGY MCV 69.3 fL 80.0 - 98.0 07/11/2017 [facility] HEMATOLOGY MCHC 31.9 g/dL 32.0 - 36.0 07/11/2017 [facility] HEMATOLOGY RBC 3.28 M/CMM 4.20 - 5.40 07/11/2017 [facility] HEMATOLOGY Hgb 7.3 g/dL 12.0 - 16.0 07/11/2017 [facility] HEMATOLOGY WBC 15.8 K/CMM 3.7 - 10.4 07/11/2017 [facility] PARATHYROID PROFILE Ca Norm WB 1.12 mMol/L 1.05 - 1.25 07/11/2017 [facility] PARATHYROID PROFILE Ca Ion WB 1.10 mMol/L 1.05 - 1.25 07/11/2017 [facility] URINE AND STOOL UA Urobilinogen <=1.0 mg/dL 0.1 - 1.0 07/11/2017 [facility] URINE AND STOOL UA Ketones TR 07/11/2017 [facility] URINE AND STOOL UA Sq Epi None Seen 07/11/2017 [facility] URINE AND STOOL UA Mucus Few /LPF None Seen /LPF 07/11/2017 [facility] URINE AND STOOL UA WBC 1 /HPF 0 - 5 07/11/2017 [facility] URINE AND STOOL UA RBC 1 /HPF 0 - 2 07/11/2017 [facility] URINE AND STOOL UA Leuk Est Negative (07/11/17 1:57 AM) Negative 07/11/2017 [facility] URINE AND STOOL UA Nitrite Negative (07/11/17 1:57 AM) Negative 07/11/2017 [facility] URINE AND STOOL UA Protein Negative mg/dL Negative mg/dL 07/11/2017 [facility] URINE AND STOOL UA Glucose Negative mg/dL Negative mg/dL 07/11/2017 [facility] URINE AND STOOL UA Color Yellow *NA* (07/11/17 1:57 AM) Yellow 07/11/2017 [facility] URINE AND STOOL UA Turbidity Clear (07/11/17 1:57 AM) Clear 07/11/2017 [facility] URINE AND STOOL UA Bili Negative *NA* (07/11/17 1:57 AM) Negative 07/11/2017 [facility] URINE AND STOOL UA Blood Negative (07/11/17 1:57 AM) Negative 07/11/2017 [facility] URINE AND STOOL UA Spec Grav 1.006 <=1.030 07/11/2017 [facility] URINE AND STOOL UA pH 7.0 5.0 - 8.0 07/11/2017 [facility] TOXICOLOGY Vanco Tr TND 1030 07/10/2017 [facility] TOXICOLOGY Vanco Tr 4.4 ug/ml 07/10/2017 [facility] Chest Pulmonary Embolism CTA Chest Pulmonary Embolism CTA EXAM: CTA CHEST WITH CONTRAST DATE: 07/08/2017 6:10 PM CDT INDICATION: - Sickle cell patient, persistent tachycardia COMPARISON: CT chest 07/04/2017 TECHNIQUE: Volumetric CT acquisition of the chest, during pulmonary arterial phase, after intravenous contrast. Axial, sagittal, coronal, and oblique MIP reconstructions are created at the acquisition workstation. IV Contrast: 75 mL of Visipaque and 75 mL of Omnipaque. The patient's IV leaked on the 1st attempt and a repeat scan was performed. DLP: 938 mGy-cm FINDINGS: Lines and tubes: None. Lower neck: Unremarkable. Heart, Mediastinum, and Great Vessels: Cardiothoracic ratio measures 12.2/24.2. The RV LV ratio is less than 0.9. No reflux of contrast into the IVC is noted. Measurements and appearance of the thoracic aorta are normal. At the same level where the ascending aorta measures 2.4 cm the pulmonary trunk measures 2.3 cm. There is no pulmonary embolus up to the segmental level. Evaluation for pulmonary emboli distal to the segmental level is limited due to poor contrast bolus timing. Lymph Nodes: There is no hilar, mediastinal, axillary or internal mammary lymphadenopathy. Lungs: Nonenhancing consolidative and groundglass opacities are seen in the left lower lobe. Streaky opacities in the dependent region of the right lower lobe likely represent atelectasis. No noncalcified pulmonary nodules are identified. The central airways are patent. Pleura: No pleural effusion or pneumothorax is seen. Esophagus and Upper abdomen: Unremarkable. Bones and soft tissues: Diffuse patchy sclerosis is seen throughout the osseous structures, likely representing avascular necrosis. Uniform central endplate depression deformities are seen throughout the vertebral bodies, consistent with sickle cell disease. IMPRESSION: 1. No evidence of pulmonary embolus up to the segmental level. Evaluation for pulmonary emboli distal to the segmental level is limited secondary to contrast bolus timing. 2. Nonenhancing consolidative and groundglass opacities in the left lower lobe, possibly representing aspiration pneumonia/pneumonitis or other pneumonia. 3. Diffuse patchy sclerosis throughout the osseous structures, suggestive of avascular necrosis given the patient's history of sickle cell disease. 07/10/2017 - - This report was dictated by a Foundry Tender/Fellow. I have personally reviewed the images as well as the Resident's interpretation and agree with the findings. Read by: John Pickard (Fellow) Resident: John Pickard (Fellow) Dictated Date/time: 07/10/17 15:24 Electronically Signed by: Marlon Syed MD 07/10/17 16:16 FINAL REPORT [facility] CHEM PANEL LDH 987 unit/L 98 - 192 07/10/2017 [facility] CHEM PANEL Bili Total 1.7 mg/dL 0.2 - 1.3 07/10/2017 [facility] CHEM PANEL Bili Direct 0.6 mg/dL 0.0 - 0.3 07/10/2017 [facility] CHEM PANEL Bili Indirect 1.1 mg/dL 0.0 - 1.0 07/10/2017 [facility] CHEM PANEL Magnesium Lvl 2.4 mg/dL 1.8 - 2.4 07/10/2017 [facility] CHEM PANEL Phosphorus 2.7 mg/dL 2.5 - 4.5 07/10/2017 [facility] ELECTROLYTES AGAP 12.0 meq/L 10.0 - 20.0 07/10/2017 [facility] ELECTROLYTES Calcium Lvl 9.2 mg/dL 8.5 - 10.5 07/10/2017 [facility] ELECTROLYTES CO2 26 meq/L 24 - 32 07/10/2017 [facility] ELECTROLYTES eGFR 191 mL/min/1.73m2 07/10/2017 Result Comment: The eGFR is calculated using the CKD-EPI formula. In most young, healthy individuals the eGFR will be >90 mL/min/1.73m2. The eGFR declines with age. An eGFR of 60-89 may be normal in some populations, particularly the elderly, for whom the CKD-EPI formula has not been extensively validated. Use of the eGFR is not recommended in the following populations: Individuals with unstable creatinine concentrations, including patients and those with serious co-morbid conditions. Patients with extremes in muscle mass or diet. The data above are obtained from the National Kidney Disease Education Program (NKDEP) which additionally recommends that when the eGFR is used in patients with extremes of body mass index for purposes of drug dosing, the eGFR should be multiplied by the estimated BMI. [facility] ELECTROLYTES BUN 7 mg/dL 7 - 22 07/10/2017 [facility] ELECTROLYTES Glucose Lvl 91 mg/dL 70 - 99 07/10/2017 [facility] ELECTROLYTES Sodium Lvl 142 meq/L 135 - 145 07/10/2017 [facility] ELECTROLYTES Chloride Lvl 108 meq/L 95 - 109 07/10/2017 [facility] ELECTROLYTES Potassium Lvl 4.0 meq/L 3.5 - 5.1 07/10/2017 [facility] ELECTROLYTES Creatinine Lvl 0.30 mg/dL 0.50 - 1.40 07/10/2017 [facility] HEMATOLOGY Retic Auto 4.7 % 0.5 - 1.5 07/10/2017 [facility] HEMATOLOGY Monocytes # 1.9 K/CMM 0.0 - 0.8 07/10/2017 [facility] HEMATOLOGY Microcyte 3+ *NA* (07/10/17 2:27 AM) None Seen 07/10/2017 [facility] HEMATOLOGY Basophils # 0.1 K/CMM 0.0 - 0.2 07/10/2017 [facility] HEMATOLOGY Anisocyte 1+ *ABN* (07/10/17 2:27 AM) None Seen 07/10/2017 [facility] HEMATOLOGY Segs 76.4 % 45.0 - 75.0 07/10/2017 [facility] HEMATOLOGY Lymphocytes 11.4 % 20.0 - 40.0 07/10/2017 [facility] HEMATOLOGY Eosinophils 0.3 % 0.0 - 4.0 07/10/2017 [facility] HEMATOLOGY Basophils 0.6 % 0.0 - 1.0 07/10/2017 [facility] HEMATOLOGY Monocytes 11.3 % 2.0 - 12.0 07/10/2017 [facility] HEMATOLOGY Segs-Bands # 12.8 K/CMM 1.5 - 8.1 07/10/2017 [facility] HEMATOLOGY Lymphocytes # 1.9 K/CMM 1.0 - 5.5 07/10/2017 [facility] HEMATOLOGY WBC 16.8 K/CMM 3.7 - 10.4 07/10/2017 [facility] HEMATOLOGY MCV 68.8 fL 80.0 - 98.0 07/10/2017 [facility] HEMATOLOGY Hgb 7.6 g/dL 12.0 - 16.0 07/10/2017 [facility] HEMATOLOGY Hct 23.0 % 36.0 - 48.0 07/10/2017 [facility] HEMATOLOGY MCH 22.9 pg 27.0 - 31.0 07/10/2017 [facility] HEMATOLOGY MCHC 33.2 g/dL 32.0 - 36.0 07/10/2017 [facility] HEMATOLOGY RBC 3.34 M/CMM 4.20 - 5.40 07/10/2017 [facility] HEMATOLOGY MPV 8.8 fL 7.4 - 10.4 07/10/2017 [facility] HEMATOLOGY RDW 22.5 % 11.5 - 14.5 07/10/2017 [facility] HEMATOLOGY Platelet 345 K/CMM 133 - 450 07/10/2017 [facility] PARATHYROID PROFILE Ca Norm WB 1.19 mMol/L 1.05 - 1.25 07/10/2017 [facility] PARATHYROID PROFILE Ca Ion WB 1.21 mMol/L 1.05 - 1.25 07/10/2017 [facility] BLOOD BANK RESULTS RBC product Product available (07/09/17 10:55 AM) 07/09/2017 [facility] BACTERIAL - SEROLOGY Strep pneumoniae Ag Negative (07/09/17 10:13 AM) Negative 07/09/2017 [facility] BACTERIAL - SEROLOGY Source Strep Urine *NA* (07/09/17 10:13 AM) 07/09/2017 [facility] CHEM PANEL B/C Ratio 23 6 - 25 07/09/2017 [facility] CHEM PANEL A/G Ratio 0.9 0.7 - 1.6 07/09/2017 [facility] CHEM PANEL Globulin 3.9 g/dL 2.7 - 4.2 07/09/2017 [facility] CHEM PANEL ALT 25 unit/L 0 - 65 07/09/2017 [facility] CHEM PANEL Albumin Lvl 3.5 g/dL 3.5 - 5.0 07/09/2017 [facility] CHEM PANEL Total Protein 7.4 g/dL 6.4 - 8.4 07/09/2017 [facility] CHEM PANEL Alk Phos 107 unit/L 39 - 136 07/09/2017 [facility] CHEM PANEL AST 47 unit/L 0 - 37 07/09/2017 [facility] CHEM PANEL LDH 865 unit/L 98 - 192 07/09/2017 [facility] CHEM PANEL Lactic Acid Lvl 0.6 mMol/L 0.5 - 2.2 07/09/2017 [facility] CHEM PANEL Albumin Lvl 3.5 g/dL 3.5 - 5.0 07/09/2017 [facility] CHEM PANEL Total Protein 7.4 g/dL 6.4 - 8.4 07/09/2017 [facility] CHEM PANEL Alk Phos 107 unit/L 39 - 136 07/09/2017 [facility] CHEM PANEL AST 47 unit/L 0 - 37 07/09/2017 [facility] CHEM PANEL ALT 25 unit/L 0 - 65 07/09/2017 [facility] CHEM PANEL A/G Ratio 0.9 0.7 - 1.6 07/09/2017 [facility] CHEM PANEL Globulin 3.9 g/dL 2.7 - 4.2 07/09/2017 [facility] Chest 1view DX Chest 1view DX EXAM: XR CHEST 1 VIEW DATE: 07/09/2017 5:35 AM CDT INDICATION: - concern for acute chest COMPARISON: 07/08/2017 TECHNIQUE: AP chest FINDINGS: Stable residual left lower lobe predominant consolidation. No definite residual right lower lobe airspace disease. No pleural effusion or pneumothorax. Stable cardiomediastinal silhouette. Unchanged skeletal structures in keeping with known history of sickle cell disease. IMPRESSION: No significant change compared to yesterday. 07/09/2017 - - Read by: Gabriel Nazario MD Dictated Date/time: 07/09/17 08:58 Electronically Signed by: Gabriel Nazario 07/09/17 09:00 FINAL REPORT [facility] Hip 2/3 views uni DX Hip 2/3 views uni DX EXAM: XR LEFT HIP 2 VIEW EXAM X-RAY RIGHT HIP 2 VIEW DATE: 07/09/2017 3:00 AM CDT INDICATION: - Avascular necrosis? (Sickle cell patient) COMPARISON: 05/26/2017 TECHNIQUE: 3 views of the hip including the pelvis FINDINGS: No acute fracture or malalignment is identified. No focal sclerotic lesion are seen involving bilateral heads of femur. Again seen is ill-defined patchy sclerotic changes in bilateral ilium and sacrum and of the lower lumbar spine, consistent with the patient's known sickle cell disease. No soft tissue abnormality is identified. IMPRESSION: 1. No acute abnormality. 2. No focal sclerotic changes of bilateral femoral heads. 3. Unchanged appearance of patchy sclerotic changes in bilateral ilium and sacrum and lower lumbar spine, consistent with known clinical history of sickle cell disease. 07/09/2017 - - Read by: Georges Crabtree MD Dictated Date/time: 07/09/17 10:12 Electronically Signed by: Georges Crabtree MD 07/09/17 10:17 FINAL REPORT [facility] Hip 2/3 views uni DX Hip 2/3 views uni DX EXAM: XR LEFT HIP 2 VIEW EXAM X-RAY RIGHT HIP 2 VIEW DATE: 07/09/2017 3:00 AM CDT INDICATION: - Avascular necrosis? (Sickle cell patient) COMPARISON: 05/26/2017 TECHNIQUE: 3 views of the hip including the pelvis FINDINGS: No acute fracture or malalignment is identified. No focal sclerotic lesion are seen involving bilateral heads of femur. Again seen is ill-defined patchy sclerotic changes in bilateral ilium and sacrum and of the lower lumbar spine, consistent with the patient's known sickle cell disease. No soft tissue abnormality is identified. IMPRESSION: 1. No acute abnormality. 2. No focal sclerotic changes of bilateral femoral heads. 3. Unchanged appearance of patchy sclerotic changes in bilateral ilium and sacrum and lower lumbar spine, consistent with known clinical history of sickle cell disease. 07/09/2017 - - Read by: Georges Crabtree MD Dictated Date/time: 07/09/17 10:12 Electronically Signed by: Georges Crabtree MD 07/09/17 10:17 FINAL REPORT [facility] CHEM PANEL Lactic Acid Lvl 1.0 mMol/L 0.5 - 2.2 07/08/2017 [facility] URINE CHEM U Preg Negative (07/08/17 10:32 AM) Negative 07/08/2017 [facility] CHEM PANEL AST 57 unit/L 0 - 37 07/08/2017 [facility] CHEM PANEL Alk Phos 97 unit/L 39 - 136 07/08/2017 [facility] CHEM PANEL Total Protein 7.4 g/dL 6.4 - 8.4 07/08/2017 [facility] CHEM PANEL Albumin Lvl 3.6 g/dL 3.5 - 5.0 07/08/2017 [facility] CHEM PANEL ALT 20 unit/L 0 - 65 07/08/2017 [facility] CHEM PANEL B/C Ratio 40 6 - 25 07/08/2017 [facility] CHEM PANEL A/G Ratio 0.9 0.7 - 1.6 07/08/2017 [facility] CHEM PANEL Globulin 3.8 g/dL 2.7 - 4.2 07/08/2017 [facility] HEMATOLOGY Eosinophils # 0.3 K/CMM 0.0 - 0.5 07/08/2017 [facility] HEMATOLOGY Sickle Cell Rare *ABN* (07/08/17 9:09 AM) None Seen 07/08/2017 [facility] HEMATOLOGY Plt Morph Normal (07/08/17 9:09 AM) 07/08/2017 [facility] BLOOD BANK RESULTS Antibody Scrn Negative (07/08/17 9:07 AM) 07/08/2017 [facility] BLOOD BANK RESULTS ABO/Rh O POS 07/08/2017 [facility] Chest 1view DX Chest 1view DX EXAM: XR CHEST 1 VIEW DATE: 07/08/2017 8:54 AM CDT INDICATION: - Chest pain COMPARISON: X-ray chest 1 view 07/03/2017; CT chest with contrast 07/04/2017 TECHNIQUE: AP chest FINDINGS: Lines, tubes and hardware: None. Lungs and pleura: Interval decrease in the degree of consolidation within the left lower lobe is noted. The previously visualized consolidation right lower lobe has resolved. No pleural effusion or pneumothorax is identified. Pulmonary vascularity is normal. Heart and mediastinum: The heart size is normal for technique. The mediastinal contours are normal. Bones: No acute bony abnormality. Chronic vertebral body deformities, characteristic for sickle cell disease, are present. IMPRESSION: Interval decrease in consolidation in the left lower lobe most consistent with resolving pneumonia. Previously identified right lower lobe consolidation has resolved. UT SECTION: ER 07/08/2017 - - This report was dictated by a Foundry Tender/Fellow. I have personally reviewed the images as well as the Resident's interpretation and agree with the findings. Read by: Roderick Holguin MD Resident: Roderick Holguin MD Dictated Date/time: 07/08/17 09:22 Electronically Signed by: Blayne Kraus MD 07/08/17 09:34 FINAL REPORT [facility] BLOOD BANK RESULTS Antibody Scrn Negative (07/06/17 12:26 PM) 07/06/2017 [facility] BLOOD BANK RESULTS ABO/Rh O POS 07/06/2017 [facility] BLOOD BANK RESULTS RBC product Product available 1 (07/06/17 11:45 AM) 07/06/2017 Result Comment: 07/06/2017 18:55 [id number] spoke 5to rm at 07/06/2017 18:55 [facility] RBC 3.55 M/CMM 4.20 - 5.40 07/06/2017 [facility] Hgb 7.8 g/dL 12.0 - 16.0 07/06/2017 [facility] MCH 22.0 pg 27.0 - 31.0 07/06/2017 [facility] MCHC 32.3 g/dL 32.0 - 36.0 07/06/2017 [facility] MCV 68.3 fL 80.0 - 98.0 07/06/2017 [facility] Hct 24.2 % 36.0 - 48.0 07/06/2017 [facility] Platelet 307 K/CMM 133 - 450 07/06/2017 [facility] MPV 7.7 fL 7.4 - 10.4 07/06/2017 [facility] RDW 19.5 % 11.5 - 14.5 07/06/2017 [facility] WBC 8.4 K/CMM 3.7 - 10.4 07/06/2017 [facility] Retic Auto 2.4 % 0.5 - 1.5 07/06/2017 [facility] Microcyte 3+ *NA* (07/06/17 5:25 AM) None Seen 07/06/2017 [facility] HEMATOLOGY Monocytes # 1.1 K/CMM 0.0 - 0.8 07/06/2017 [facility] HEMATOLOGY Basophils # 0.1 K/CMM 0.0 - 0.2 07/06/2017 [facility] HEMATOLOGY Eosinophils # 0.5 K/CMM 0.0 - 0.5 07/06/2017 [facility] HEMATOLOGY Lymphocytes # 2.3 K/CMM 1.0 - 5.5 07/06/2017 [facility] HEMATOLOGY Monocytes 12.5 % 2.0 - 12.0 07/06/2017 [facility] HEMATOLOGY Eosinophils 5.8 % 0.0 - 4.0 07/06/2017 [facility] HEMATOLOGY Segs 53.1 % 45.0 - 75.0 07/06/2017 [facility] HEMATOLOGY Lymphocytes 27.1 % 20.0 - 40.0 07/06/2017 [facility] HEMATOLOGY Basophils 1.5 % 0.0 - 1.0 07/06/2017 [facility] HEMATOLOGY Segs-Bands # 4.5 K/CMM 1.5 - 8.1 07/06/2017 [facility] HEMATOLOGY Monocytes # 1.2 K/CMM 0.0 - 0.8 07/05/2017 [facility] HEMATOLOGY Lymphocytes # 2.5 K/CMM 1.0 - 5.5 07/05/2017 [facility] HEMATOLOGY Basophils # 0.1 K/CMM 0.0 - 0.2 07/05/2017 [facility] HEMATOLOGY Eosinophils # 0.5 K/CMM 0.0 - 0.5 07/05/2017 [facility] HEMATOLOGY Microcyte 3+ *NA* (07/05/17 5:23 AM) None Seen 07/05/2017 [facility] HEMATOLOGY Monocytes 12.4 % 2.0 - 12.0 07/05/2017 [facility] HEMATOLOGY Lymphocytes 25.8 % 20.0 - 40.0 07/05/2017 [facility] HEMATOLOGY Basophils 1.2 % 0.0 - 1.0 07/05/2017 [facility] HEMATOLOGY Eosinophils 5.0 % 0.0 - 4.0 07/05/2017 [facility] HEMATOLOGY Segs-Bands # 5.3 K/CMM 1.5 - 8.1 07/05/2017 [facility] HEMATOLOGY Segs 55.6 % 45.0 - 75.0 07/05/2017 [facility] HEMATOLOGY MPV 8.1 fL 7.4 - 10.4 07/05/2017 [facility] HEMATOLOGY Platelet 298 K/CMM 133 - 450 07/05/2017 [facility] RDW 19.4 % 11.5 - 14.5 07/05/2017 [facility] MCV 68.1 fL 80.0 - 98.0 07/05/2017 [facility] MCH 22.0 pg 27.0 - 31.0 07/05/2017 [facility] MCHC 32.3 g/dL 32.0 - 36.0 07/05/2017 [facility] Hct 27.4 % 36.0 - 48.0 07/05/2017 [facility] WBC 9.6 K/CMM 3.7 - 10.4 07/05/2017 [facility] RBC 4.02 M/CMM 4.20 - 5.40 07/05/2017 [facility] Hgb 8.8 g/dL 12.0 - 16.0 07/05/2017 [facility] Retic Auto 2.6 % 0.5 - 1.5 07/05/2017 [facility] CHEM PANEL eGFR 178 mL/min/1.73m2 07/04/2017 Result Comment: The eGFR is calculated using the CKD-EPI formula. In most young, healthy individuals the eGFR will be >90 mL/min/1.73m2. The eGFR declines with age. An eGFR of 60-89 may be normal in some populations, particularly the elderly, for whom the CKD-EPI formula has not been extensively validated. Use of the eGFR is not recommended in the following populations: Individuals with unstable creatinine concentrations, including patients and those with serious co-morbid conditions. Patients with extremes in muscle mass or diet. The data above are obtained from the National Kidney Disease Education Program (NKDEP) which additionally recommends that when the eGFR is used in patients with extremes of body mass index for purposes of drug dosing, the eGFR should be multiplied by the estimated BMI. [facility] CHEM PANEL Bili Total 1.6 mg/dL 0.2 - 1.3 07/04/2017 [facility] CHEM PANEL AST 27 unit/L 0 - 37 07/04/2017 [facility] CHEM PANEL Alk Phos 101 unit/L 39 - 136 07/04/2017 [facility] CHEM PANEL CO2 28 meq/L 24 - 32 07/04/2017 [facility] CHEM PANEL ALT 18 unit/L 0 - 65 07/04/2017 [facility] CHEM PANEL Albumin Lvl 3.2 g/dL 3.5 - 5.0 07/04/2017 [facility] CHEM PANEL Calcium Lvl 8.1 mg/dL 8.5 - 10.5 07/04/2017 [facility] CHEM PANEL Potassium Lvl 3.5 meq/L 3.5 - 5.1 07/04/2017 [facility] CHEM PANEL Total Protein 6.4 g/dL 6.4 - 8.4 07/04/2017 [facility] CHEM PANEL Chloride Lvl 105 meq/L 95 - 109 07/04/2017 [facility] CHEM PANEL Sodium Lvl 141 meq/L 135 - 145 07/04/2017 [facility] CHEM PANEL Creatinine Lvl 0.37 mg/dL 0.50 - 1.40 07/04/2017 [facility] CHEM PANEL Glucose Lvl 103 mg/dL 70 - 99 07/04/2017 [facility] CHEM PANEL BUN 4 mg/dL 7 - 22 07/04/2017 [facility] CHEM PANEL B/C Ratio 11 6 - 25 07/04/2017 [facility] CHEM PANEL AGAP 11.5 meq/L 10.0 - 20.0 07/04/2017 [facility] CHEM PANEL A/G Ratio 1.0 0.7 - 1.6 07/04/2017 [facility] CHEM PANEL Globulin 3.2 g/dL 2.7 - 4.2 07/04/2017 [facility] CHEM PANEL Magnesium Lvl 2.1 mg/dL 1.8 - 2.4 07/04/2017 [facility] ENDOCRINOLOGY S Preg Negative *NA* (07/04/17 11:04 AM) Negative 07/04/2017 [facility] HEMATOLOGY Eosinophils # 0.5 K/CMM 0.0 - 0.5 07/04/2017 [facility] HEMATOLOGY Basophils # 0.1 K/CMM 0.0 - 0.2 07/04/2017 [facility] HEMATOLOGY Segs 67.7 % 45.0 - 75.0 07/04/2017 [facility] HEMATOLOGY Basophils 0.9 % 0.0 - 1.0 07/04/2017 [facility] HEMATOLOGY Segs-Bands # 7.6 K/CMM 1.5 - 8.1 07/04/2017 [facility] HEMATOLOGY Monocytes 10.2 % 2.0 - 12.0 07/04/2017 [facility] HEMATOLOGY Eosinophils 4.2 % 0.0 - 4.0 07/04/2017 [facility] HEMATOLOGY Lymphocytes # 1.9 K/CMM 1.0 - 5.5 07/04/2017 [facility] HEMATOLOGY Monocytes # 1.1 K/CMM 0.0 - 0.8 07/04/2017 [facility] Microcyte 3+ *NA* (07/04/17 11:04 AM) None Seen 07/04/2017 [facility] Lymphocytes 17.0 % 20.0 - 40.0 07/04/2017 [facility] Retic Auto 3.6 % 0.5 - 1.5 07/04/2017 [facility] MCHC 31.6 g/dL 32.0 - 36.0 07/04/2017 [facility] RDW 19.7 % 11.5 - 14.5 07/04/2017 [facility] MCH 21.6 pg 27.0 - 31.0 07/04/2017 [facility] Hct 28.2 % 36.0 - 48.0 07/04/2017 [facility] MCV 68.1 fL 80.0 - 98.0 07/04/2017 [facility] MPV 7.7 fL 7.4 - 10.4 07/04/2017 [facility] Platelet 314 K/CMM 133 - 450 07/04/2017 [facility] RBC 4.14 M/CMM 4.20 - 5.40 07/04/2017 [facility] Hgb 8.9 g/dL 12.0 - 16.0 07/04/2017 [facility] WBC 11.2 K/CMM 3.7 - 10.4 07/04/2017 [facility] TOXICOLOGY Vanco Tr TND 13:00 07/04/2017 [facility] TOXICOLOGY Vanco Tr 12.3 ug/ml 07/04/2017 [facility] Chest w contrast CT Chest w contrast CT Patient Name: TERE JACK : 1995; Age: 21 years Female MR: [id number] Study: Chest w contrast CT 07/04/2017 10:48 AM CDT Clinical Indication: 75cc omni CT DLP 343.54 mGy-cm PF - possible PNA vs infarct, possible pneumonia and h/o sickle cell. COMPARISON: 07/03/2017. TECHNIQUE: Sequential trans-axial images were obtained thru the chest and upper abdomen after the administration of iodinated contrast. Coronal and sagittal reconstructions were obtained. FINDINGS: LUNG PARENCHYMA AND PLEURA: Bilateral lower lobe infiltrates greater on the left. There is no interstitial lung disease. There are no pleural effusions. There is no pneumothorax. AIRWAY: The central airway is normal. MEDIASTINUM: There is no pathologic mediastinal lymphadenopathy. Cardiomegaly. There is normal aortic caliber. There is no aortic dissection. OSSEOUS STRUCTURES: There are no definite significant osseous abnormalities seen. VISUALIZED ENHANCED UPPER ABDOMEN: Diffuse and scattered sclerosis of the bones. Hypodense splenic mass measures 2.1 cm. 4 mm low-density lesion in the hepatic dome. IMPRESSION: 1. Bilateral lower lobe infiltrates suspicious for pneumonia. 2. Sclerosis of the bones which may be seen with avascular necrosis. 3. Splenic mass which may represent a hemangioma. Nonemergent follow-up magnetic resonance imaging of the abdomen without and with gadolinium is recommended. 4. Low-density lesion in the hepatic dome likely a small cyst or hemangioma. This can be assessed on the magnetic resonance imaging of the abdomen. SL: [id number] 07/04/2017 - - Read by: Selvin Smith MD Dictated Date/time: 07/04/17 16:12 Electronically Signed by: Selvin Smith MD 07/04/17 16:20 FINAL REPORT [facility] Hgb F % 2.4 % 0.0 - 1.0 07/04/2017 [facility] Hgb S % 78.5 % 0.0 - 0.0 07/04/2017 [facility] Hgb A2 % 3.7 % 2.2 - 3.2 07/04/2017 [facility] Hgb Interp Hemoglobin electrophoresis results demonstrate 78.5% HgbS, 3.7% of Hgb A2, 2.4% of Hgb F and 15.4% of Hgb A. These findings are most consistent with previous diagnosis of HbS/Beta 0 thalassemia status post transfusion.The electronic medical record has been reviewed for relevant history. The patient is status post RBC transfusion on 07/02/2017 and 07/04/2017.I have personally reviewed the test results and concur with the resident'sinterpretation.CPT [id number] 07/04/2017 [facility] IMMUNOLOGY Hgb C % 0.0 % 0.0 - 0.0 07/04/2017 [facility] Hgb A % 15.4 % 95.8 - 97.8 07/04/2017 [facility] CHEM PANEL Procalcitonin Lvl <0.05 ng/mL 0.00 - 0.10 07/03/2017 [facility] Chest 1view DX Chest 1view DX Clinical Indication: - follow up; Comparison: 07/01/2017 Technique: X-ray chest frontal projection FINDINGS: There is consolidation in the bilateral lower lobes, left greater than the right. There is a small left pleural effusion. The heart is normal in size. There is no pneumothorax. The mediastinum and herman are unremarkable. The visualized bones and soft tissues are within normal limits. IMPRESSION: Worsening consolidation in the bilateral lower lobes, left greater than the right. Small left pleural effusion. SL: GREY 07/03/2017 - - Read by: Saba Ling MD Dictated Date/time: 07/03/17 15:09 Electronically Signed by: Saba Ling MD 07/03/17 15:11 FINAL REPORT [facility] CHEM PANEL eGFR 189 mL/min/1.73m2 07/03/2017 Result Comment: The eGFR is calculated using the CKD-EPI formula. In most young, healthy individuals the eGFR will be >90 mL/min/1.73m2. The eGFR declines with age. An eGFR of 60-89 may be normal in some populations, particularly the elderly, for whom the CKD-EPI formula has not been extensively validated. Use of the eGFR is not recommended in the following populations: Individuals with unstable creatinine concentrations, including patients and those with serious co-morbid conditions. Patients with extremes in muscle mass or diet. The data above are obtained from the National Kidney Disease Education Program (NKDEP) which additionally recommends that when the eGFR is used in patients with extremes of body mass index for purposes of drug dosing, the eGFR should be multiplied by the estimated BMI. [facility] CHEM PANEL Bili Total 1.3 mg/dL 0.2 - 1.3 07/03/2017 [facility] CHEM PANEL ALT 17 unit/L 0 - 65 07/03/2017 [facility] CHEM PANEL AST 24 unit/L 0 - 37 07/03/2017 [facility] CHEM PANEL Alk Phos 82 unit/L 39 - 136 07/03/2017 [facility] CHEM PANEL B/C Ratio 13 6 - 25 07/03/2017 [facility] CHEM PANEL Calcium Lvl 7.9 mg/dL 8.5 - 10.5 07/03/2017 [facility] CHEM PANEL Total Protein 5.8 g/dL 6.4 - 8.4 07/03/2017 [facility] CHEM PANEL Albumin Lvl 2.8 g/dL 3.5 - 5.0 07/03/2017 [facility] CHEM PANEL Chloride Lvl 110 meq/L 95 - 109 07/03/2017 [facility] CHEM PANEL CO2 27 meq/L 24 - 32 07/03/2017 [facility] CHEM PANEL AGAP 8.7 meq/L 10.0 - 20.0 07/03/2017 [facility] CHEM PANEL Creatinine Lvl 0.31 mg/dL 0.50 - 1.40 07/03/2017 [facility] CHEM PANEL BUN 4 mg/dL 7 - 22 07/03/2017 [facility] CHEM PANEL Sodium Lvl 142 meq/L 135 - 145 07/03/2017 [facility] CHEM PANEL Potassium Lvl 3.7 meq/L 3.5 - 5.1 07/03/2017 [facility] CHEM PANEL Glucose Lvl 87 mg/dL 70 - 99 07/03/2017 [facility] CHEM PANEL Globulin 3.0 g/dL 2.7 - 4.2 07/03/2017 [facility] CHEM PANEL A/G Ratio 0.9 0.7 - 1.6 07/03/2017 [facility] CHEM PANEL Magnesium Lvl 2.2 mg/dL 1.8 - 2.4 07/03/2017 [facility] TOXICOLOGY Vanco Tr TND now 07/02/2017 [facility] TOXICOLOGY Vanco Tr 3.4 ug/ml 07/02/2017 [facility] CHEM PANEL Magnesium Lvl 2.3 mg/dL 1.8 - 2.4 07/02/2017 [facility] ELECTROLYTES CO2 26 meq/L 24 - 32 07/02/2017 [facility] ELECTROLYTES Chloride Lvl 110 meq/L 95 - 109 07/02/2017 [facility] ELECTROLYTES Sodium Lvl 144 meq/L 135 - 145 07/02/2017 [facility] ELECTROLYTES Potassium Lvl 3.9 meq/L 3.5 - 5.1 07/02/2017 [facility] ELECTROLYTES BUN 4 mg/dL 7 - 22 07/02/2017 [facility] ELECTROLYTES Creatinine Lvl 0.36 mg/dL 0.50 - 1.40 07/02/2017 [facility] ELECTROLYTES Glucose Lvl 90 mg/dL 70 - 99 07/02/2017 [facility] ELECTROLYTES Bili Total 0.8 mg/dL 0.2 - 1.3 07/02/2017 [facility] ELECTROLYTES ALT 15 unit/L 0 - 65 07/02/2017 [facility] ELECTROLYTES Alk Phos 85 unit/L 39 - 136 07/02/2017 [facility] ELECTROLYTES AST 27 unit/L 0 - 37 07/02/2017 [facility] ELECTROLYTES Total Protein 6.4 g/dL 6.4 - 8.4 07/02/2017 [facility] ELECTROLYTES Albumin Lvl 3.0 g/dL 3.5 - 5.0 07/02/2017 [facility] ELECTROLYTES Calcium Lvl 8.7 mg/dL 8.5 - 10.5 07/02/2017 [facility] ELECTROLYTES eGFR 180 mL/min/1.73m2 07/02/2017 Result Comment: The eGFR is calculated using the CKD-EPI formula. In most young, healthy individuals the eGFR will be >90 mL/min/1.73m2. The eGFR declines with age. An eGFR of 60-89 may be normal in some populations, particularly the elderly, for whom the CKD-EPI formula has not been extensively validated. Use of the eGFR is not recommended in the following populations: Individuals with unstable creatinine concentrations, including patients and those with serious co-morbid conditions. Patients with extremes in muscle mass or diet. The data above are obtained from the National Kidney Disease Education Program (NKDEP) which additionally recommends that when the eGFR is used in patients with extremes of body mass index for purposes of drug dosing, the eGFR should be multiplied by the estimated BMI. [facility] ELECTROLYTES A/G Ratio 0.9 0.7 - 1.6 07/02/2017 [facility] ELECTROLYTES AGAP 11.9 meq/L 10.0 - 20.0 07/02/2017 [facility] ELECTROLYTES B/C Ratio 11 6 - 25 07/02/2017 [facility] ELECTROLYTES Globulin 3.4 g/dL 2.7 - 4.2 07/02/2017 [facility] ANEMIA STUDY Folate Lvl 17.7 ng/mL >=3.0 ng/mL 07/02/2017 [facility] ANEMIA STUDY TIBC 147 ug/dl 228 - 428 07/02/2017 [facility] ANEMIA STUDY Iron 22 ug/dl 30 - 160 07/02/2017 [facility] ANEMIA STUDY % [place] Fe 15 % 12 - 57 07/02/2017 [facility] ANEMIA STUDY UIBC 125 ug/dl 110 - 370 07/02/2017 [facility] ANEMIA STUDY Ferritin Lvl 1750 ng/mL 5 - 204 07/02/2017 [facility] ANEMIA STUDY Vitamin B12 Lvl 753 pg/mL 254 - 1320 07/02/2017 [facility] BLOOD BANK RESULTS ABO/Rh O POS 07/01/2017 [facility] BLOOD BANK RESULTS Antibody Scrn Negative (07/01/17 2:46 PM) 07/01/2017 [facility] BLOOD BANK RESULTS RBC product Product available 2 (07/01/17 3:37 AM) 07/01/2017 Result Comment: 07/01/2017 18:28 [id number] Called to Linwood Ward at 07/01/2017 18:28 by Je Traylor. [facility] URINE AND STOOL UA Blood Negative (07/01/17 1:14 AM) Negative 07/01/2017 [facility] URINE AND STOOL UA Bili Negative *NA* (07/01/17 1:14 AM) Negative 07/01/2017 [facility] URINE AND STOOL UA Nitrite Negative (07/01/17 1:14 AM) Negative 07/01/2017 [facility] URINE AND STOOL UA Urobilinogen 0.2 EU/dL 0.1 - 1.0 07/01/2017 [facility] URINE AND STOOL UA Ketones Negative *NA* (07/01/17 1:14 AM) Negative 07/01/2017 [facility] URINE AND STOOL UA Leuk Est Negative (07/01/17 1:14 AM) Negative 07/01/2017 [facility] URINE AND STOOL UA Glucose Negative (07/01/17 1:14 AM) Negative 07/01/2017 [facility] URINE AND STOOL UA Protein Negative (07/01/17 1:14 AM) Negative 07/01/2017 [facility] URINE AND STOOL UA pH 6.0 5.0 - 8.0 07/01/2017 [facility] URINE AND STOOL UA Color Yellow *NA* (07/01/17 1:14 AM) Yellow 07/01/2017 [facility] URINE AND STOOL UA Spec Grav <=1.005
*NA*
(07/01/17 1:14 AM) <=1.030 07/01/2017 [facility] URINE AND STOOL UA Turbidity Clear (07/01/17 1:14 AM) Clear 07/01/2017 [facility] URINE AND STOOL UA Hyal Cast 1 /LPF 0 - 2 07/01/2017 [facility] URINE AND STOOL UA WBC 1 /HPF 0 - 5 07/01/2017 [facility] URINE AND STOOL UA Sq Epi Occasional /LPF Few /LPF 07/01/2017 [facility] URINE AND STOOL UA Mucus Few /LPF None Seen /LPF 07/01/2017 [facility] URINE AND STOOL UA Bacteria Occasional /HPF None Seen /HPF 07/01/2017 [facility] URINE AND STOOL UA RBC 1 /HPF 0 - 2 07/01/2017 [facility] Chest 1view DX Chest 1view DX CHEST RADIOGRAPH SINGLE VIEW INDICATION: Chest pain, sickle cell disease COMPARISON: Chest radiographs 05/26/2017 IMPRESSION: The lungs are underinflated. There is consolidation at the periphery of the left lower lung, potentially secondary to pneumonia or pulmonary infarct. There may be mild pulmonary vascular congestion. SL:16 07/01/2017 - - Read by: Crispin Walters MD Dictated Date/time: 07/01/17 03:19 Electronically Signed by: Crispin Walters MD 07/01/17 03:21 FINAL REPORT [facility] HEMATOLOGY Plt Morph Normal (06/30/17 6:30 PM) 06/30/2017 [facility] HEMATOLOGY Polychrom Slight 06/30/2017 [facility] HEMATOLOGY Schistocyte 1-3 per HPF (06/30/17 6:30 PM) None Seen 06/30/2017 [facility] HEMATOLOGY Target Cell Moderate *ABN* (06/30/17 6:30 PM) None Seen 06/30/2017 [facility] CHEM PANEL Globulin 3.2 g/dL 2.7 - 4.2 06/05/2017 [facility] CHEM PANEL AGAP 12.1 meq/L 10.0 - 20.0 06/05/2017 [facility] CHEM PANEL B/C Ratio 9 6 - 25 06/05/2017 [facility] CHEM PANEL A/G Ratio 1.0 0.7 - 1.6 06/05/2017 [facility] CHEM PANEL eGFR 183 mL/min/1.73m2 06/05/2017 Result Comment: The eGFR is calculated using the CKD-EPI formula. In most young, healthy individuals the eGFR will be >90 mL/min/1.73m2. The eGFR declines with age. An eGFR of 60-89 may be normal in some populations, particularly the elderly, for whom the CKD-EPI formula has not been extensively validated. Use of the eGFR is not recommended in the following populations: Individuals with unstable creatinine concentrations, including patients and those with serious co-morbid conditions. Patients with extremes in muscle mass or diet. The data above are obtained from the National Kidney Disease Education Program (NKDEP) which additionally recommends that when the eGFR is used in patients with extremes of body mass index for purposes of drug dosing, the eGFR should be multiplied by the estimated BMI. [facility] CHEM PANEL CO2 28 meq/L 24 - 32 06/05/2017 [facility] CHEM PANEL ASPARTATE TRANSAMINASE 24 unit/L 0 - 37 06/05/2017 [facility] CHEM PANEL Total Protein 6.4 g/dL 6.4 - 8.4 06/05/[facility] Calcium Lvl 8.6 mg/dL 8.5 - 10.5 06/05/2017 [facility] Bili Total 0.7 mg/dL 0.2 - 1.3 06/05/2017 [facility] CHEM PANEL Sodium Lvl 143 meq/L 135 - 145 06/05/2017 [facility] Creatinine Lvl 0.34 mg/dL 0.50 - 1.40 06/05/2017 [facility] CHEM PANEL Chloride Lvl 107 meq/L 95 - 109 06/05/2017 [facility] CHEM PANEL Potassium Lvl 4.1 meq/L 3.5 - 5.1 06/05/2017 [facility] CHEM PANEL BUN 3 mg/dL 7 - 22 06/05/2017 [facility] CHEM PANEL Alk Phos 160 unit/L 39 - 136 06/05/2017 [facility] CHEM PANEL Glucose Lvl 97 mg/dL 70 - 99 06/05/2017 [facility] CHEM PANEL ALANINE AMINOTRANSFERASE 26 unit/L 0 - 65 06/05/2017 [facility] CHEM PANEL Albumin Lvl 3.2 g/dL 3.5 - 5.0 06/05/2017 [facility] CHEM PANEL LACTATE DEHYDROGENASE 332 unit/L 98 - 192 06/05/2017 [facility] HEMATOLOGY WBC X 10x3 15.2 K/CMM 3.7 - 10.4 06/05/2017 [facility] HEMATOLOGY Hgb 5.5 g/dL 12.0 - 16.0 06/05/2017 Result Comment: Critical Result(s) called to Hanny Jj at 06/05/2017 06:12 by sp. Read back OK. [facility] HEMATOLOGY RBC X 10x6 2.41 M/CMM 4.20 - 5.40 06/05/2017 [facility] HEMATOLOGY MCV 71.8 fL 80.0 - 98.0 06/05/2017 [facility] HEMATOLOGY Hct 17.3 % 36.0 - 48.0 06/05/2017 [facility] MCH 22.6 pg 27.0 - 31.0 06/05/2017 [facility] RDW 18.4 % 11.5 - 14.5 06/05/2017 [facility] MCHC 31.5 g/dL 32.0 - 36.0 06/05/2017 [facility] Platelet 476 K/CMM 133 - 450 06/05/2017 [facility] MPV 7.9 fL 7.4 - 10.4 06/05/2017 [facility] Retic Auto 18.3 % 0.5 - 1.5 06/05/2017 [facility] Lymphocytes # 3.4 K/CMM 1.0 - 5.5 06/05/2017 [facility] Segs-Bands # 9.1 K/CMM 1.5 - 8.1 06/05/2017 [facility] Basophils 0.8 % 0.0 - 1.0 06/05/2017 [facility] Eosinophils 4.5 % 0.0 - 4.0 06/05/2017 [facility] Segs 60.0 % 45.0 - 75.0 06/05/2017 [facility] Monocytes 12.4 % 2.0 - 12.0 06/05/2017 [facility] Lymphocytes 22.3 % 20.0 - 40.0 06/05/2017 [facility] Basophils # 0.1 K/CMM 0.0 - 0.2 06/05/2017 [facility] Eosinophils # 0.7 K/CMM 0.0 - 0.5 06/05/2017 [facility] Monocytes # 1.9 K/CMM 0.0 - 0.8 06/05/2017 [facility] Microcyte 2+ *ABN* (06/05/17 5:04 AM) None Seen 06/05/2017 [facility] CHEM PANEL LACTATE DEHYDROGENASE 348 unit/L 98 - 192 06/04/2017 [facility] Retic Auto 18.2 % 0.5 - 1.5 06/04/2017 [facility] CHEM PANEL LACTATE DEHYDROGENASE 337 unit/L 98 - 192 06/04/2017 [facility] CHEM PANEL eGFR 181 mL/min/1.73m2 06/04/2017 Result Comment: The eGFR is calculated using the CKD-EPI formula. In most young, healthy individuals the eGFR will be >90 mL/min/1.73m2. The eGFR declines with age. An eGFR of 60-89 may be normal in some populations, particularly the elderly, for whom the CKD-EPI formula has not been extensively validated. Use of the eGFR is not recommended in the following populations: Individuals with unstable creatinine concentrations, including patients and those with serious co-morbid conditions. Patients with extremes in muscle mass or diet. The data above are obtained from the National Kidney Disease Education Program (NKDEP) which additionally recommends that when the eGFR is used in patients with extremes of body mass index for purposes of drug dosing, the eGFR should be multiplied by the estimated BMI. [facility] CO2 29 meq/L 24 - 32 06/04/2017 [facility] CHEM PANEL Calcium Lvl 8.8 mg/dL 8.5 - 10.5 06/04/2017 [facility] CHEM PANEL Chloride Lvl 107 meq/L 95 - 109 06/04/2017 [facility] CHEM PANEL AGAP 10.0 meq/L 10.0 - 20.0 06/04/2017 [facility] CHEM PANEL Glucose Lvl 102 mg/dL 70 - 99 06/04/2017 [facility] CHEM PANEL Creatinine Lvl 0.35 mg/dL 0.50 - 1.40 06/04/2017 [facility] CHEM PANEL BUN null 7 - 22 06/04/2017 [facility] CHEM PANEL Potassium Lvl 4.0 meq/L 3.5 - 5.1 06/04/2017 [facility] CHEM PANEL Sodium Lvl 142 meq/L 135 - 145 06/04/2017 [facility] HEMATOLOGY Retic Auto 18.0 % 0.5 - 1.5 06/04/2017 [facility] HEMATOLOGY Segs-Bands # 8.0 K/CMM 1.5 - 8.1 06/04/2017 [facility] HEMATOLOGY Basophils 1.5 % 0.0 - 1.0 06/04/2017 [facility] HEMATOLOGY Monocytes # 1.9 K/CMM 0.0 - 0.8 06/04/2017 [facility] HEMATOLOGY Lymphocytes # 3.7 K/CMM 1.0 - 5.5 06/04/2017 [facility] HEMATOLOGY Eosinophils 5.9 % 0.0 - 4.0 06/04/2017 [facility] HEMATOLOGY Lymphocytes 25.1 % 20.0 - 40.0 06/04/2017 [facility] HEMATOLOGY Segs 54.8 % 45.0 - 75.0 06/04/2017 [facility] HEMATOLOGY Monocytes 12.7 % 2.0 - 12.0 06/04/2017 [facility] Microcyte 2+ *ABN* (06/04/17 5:11 AM) None Seen 06/04/2017 [facility] Basophils # 0.2 K/CMM 0.0 - 0.2 06/04/2017 [facility] HEMATOLOGY Eosinophils # 0.9 K/CMM 0.0 - 0.5 06/04/2017 [facility] Platelet 463 K/CMM 133 - 450 06/04/2017 [facility] MPV 7.6 fL 7.4 - 10.4 06/04/2017 [facility] MCH 22.5 pg 27.0 - 31.0 06/04/2017 [facility] MCV 71.4 fL 80.0 - 98.0 06/04/2017 [facility] RDW 17.1 % 11.5 - 14.5 06/04/2017 [facility] MCHC 31.5 g/dL 32.0 - 36.0 06/04/2017 [facility] Hct 18.0 % 36.0 - 48.0 06/04/2017 [facility] RBC X 10x6 2.52 M/CMM 4.20 - 5.40 06/04/2017 [facility] WBC X 10x3 14.7 K/CMM 3.7 - 10.4 06/04/2017 [facility] Hgb 5.7 g/dL 12.0 - 16.0 06/04/2017 Result Comment: Critical Result(s) called to Monse Meyer at 06/04/2017 05:47 by sp. Read back OK. [facility] CHEM PANEL Phosphorus 4.6 mg/dL 2.5 - 4.5 05/31/2017 [facility] CHEM PANEL eGFR 170 mL/min/1.73m2 05/31/2017 Result Comment: The eGFR is calculated using the CKD-EPI formula. In most young, healthy individuals the eGFR will be >90 mL/min/1.73m2. The eGFR declines with age. An eGFR of 60-89 may be normal in some populations, particularly the elderly, for whom the CKD-EPI formula has not been extensively validated. Use of the eGFR is not recommended in the following populations: Individuals with unstable creatinine concentrations, including patients and those with serious co-morbid conditions. Patients with extremes in muscle mass or diet. The data above are obtained from the National Kidney Disease Education Program (NKDEP) which additionally recommends that when the eGFR is used in patients with extremes of body mass index for purposes of drug dosing, the eGFR should be multiplied by the estimated BMI. [place] CHEM PANEL Creatinine Lvl 0.42 mg/dL 0.50 - 1.40 05/31/2017 [place] CHEM PANEL Sodium Lvl 139 meq/L 135 - 145 05/31/2017 [place] CHEM PANEL Potassium Lvl 4.1 meq/L 3.5 - 5.1 05/31/2017 [place] CHEM PANEL BUN 2 mg/dL 7 - 22 05/31/2017 [place] CHEM PANEL Glucose Lvl 93 mg/dL 70 - 99 05/31/2017 [place] CHEM PANEL Bili Total 1.1 mg/dL 0.2 - 1.3 05/31/2017 [place] CHEM PANEL Total Protein 7.4 g/dL 6.4 - 8.4 05/31/2017 [place] CHEM PANEL Chloride Lvl 100 meq/L 95 - 109 05/31/2017 [place] CHEM PANEL ASPARTATE TRANSAMINASE 23 unit/L 0 - 37 05/31/2017 [place] CHEM PANEL CO2 33 meq/L 24 - 32 05/31/2017 [place] CHEM PANEL Calcium Lvl 9.1 mg/dL 8.5 - 10.5 05/31/2017 [place] CHEM PANEL Alk Phos 216 unit/L 39 - 136 05/31/2017 [place] CHEM PANEL Albumin Lvl 3.6 g/dL 3.5 - 5.0 05/31/2017 [place] CHEM PANEL ALANINE AMINOTRANSFERASE 43 unit/L 0 - 65 05/31/2017 [place] CHEM PANEL B/C Ratio 5 6 - 25 05/31/2017 [place] CHEM PANEL Globulin 3.8 g/dL 2.7 - 4.2 05/31/2017 [place] CHEM PANEL A/G Ratio 0.9 0.7 - 1.6 05/31/2017 [place] CHEM PANEL AGAP 10.1 meq/L 10.0 - 20.0 05/31/2017 [place] CHEM PANEL Magnesium Lvl 2.2 mg/dL 1.8 - 2.4 05/31/2017 [facility] MPV 8.7 fL 7.4 - 10.4 05/31/2017 [facility] MCH 23.0 pg 27.0 - 31.0 05/31/2017 [facility] MCHC 32.9 g/dL 32.0 - 36.0 05/31/2017 [facility] Platelet 474 K/CMM 133 - 450 05/31/2017 [facility] RDW 15.4 % 11.5 - 14.5 05/31/2017 [facility] RBC X 10x6 2.79 M/CMM 4.20 - 5.40 05/31/2017 [facility] MCV 69.8 fL 80.0 - 98.0 05/31/2017 [facility] Hct 19.5 % 36.0 - 48.0 05/31/2017 Result Comment: Critical Result(s) called to Kalie ASH at 05/31/2017 06:11 by D^2. Read back OK. [facility] Hgb 6.4 g/dL 12.0 - 16.0 05/31/2017 Result Comment: Critical Result(s) called to Kalie ASH at 05/31/2017 06:11 by D^2. Read back OK. [facility] WBC X 10x3 18.4 K/CMM 3.7 - 10.4 05/31/2017 [facility] Monocytes # 2.9 K/CMM 0.0 - 0.8 05/31/2017 [facility] Lymphocytes # 2.4 K/CMM 1.0 - 5.5 05/31/2017 [facility] Segs-Bands # 12.9 K/CMM 1.5 - 8.1 05/31/2017 [facility] Basophils # 0.1 K/CMM 0.0 - 0.2 05/31/2017 [facility] Eosinophils # 0.2 K/CMM 0.0 - 0.5 05/31/2017 [facility] Microcyte 2+ *ABN* (05/31/17 3:49 AM) None Seen 05/31/2017 [facility] Eosinophils 1.0 % 0.0 - 4.0 05/31/2017 [facility] Monocytes 15.6 % 2.0 - 12.0 05/31/2017 [facility] [place] HEMATOLOGY Lymphocytes 13.0 % 20.0 - 40.0 05/31/2017 [facility] HEMATOLOGY Segs 69.9 % 45.0 - 75.0 05/31/2017 [facility] HEMATOLOGY Basophils 0.5 % 0.0 - 1.0 05/31/2017 [facility] HEMATOLOGY Large Plt slight 05/30/2017 [facility] Target Cell Moderate *ABN* (05/30/17 3:34 AM) None Seen 05/30/2017 [facility] HEMATOLOGY Tear Cell slight 05/30/2017 [facility] HEMATOLOGY Schistocyte 1-3 per HPF (05/30/17 3:34 AM) None Seen 05/30/2017 [facility] HEMATOLOGY Polychrom slight 05/30/2017 [facility] Hypochrom 1+ (05/30/17 3:34 AM) None Seen 05/30/2017 [facility] BLOOD BANK RESULTS RBC product Product available (05/29/17 7:26 PM) 05/30/2017 [facility] BLOOD BANK RESULTS Antigen LOUIE Int K neg 05/29/2017 [facility] BLOOD BANK RESULTS Antigen LOUIE Int E pos 05/29/2017 [facility] BLOOD BANK RESULTS Antigen LOUIE Int c pos 05/29/2017 [facility] BLOOD BANK RESULTS Antigen LOUIE Int e neg 05/29/2017 [facility] BLOOD BANK RESULTS Antigen LOUIE Int C neg 05/29/2017 [facility] BLOOD BANK RESULTS ABO/Rh O POS 05/29/2017 [facility] BLOOD BANK RESULTS Antibody Scrn Negative (05/29/17 8:08 AM) 05/29/2017 [facility] CHEM PANEL B/C Ratio 6 6 - 25 05/29/2017 [facility] CHEM PANEL Globulin 3.2 g/dL 2.7 - 4.2 05/29/2017 [facility] CHEM PANEL A/G Ratio 1.2 0.7 - 1.6 05/29/2017 [facility] CHEM PANEL ASPARTATE TRANSAMINASE 36 unit/L 0 - 37 05/29/2017 [facility] CHEM PANEL Total Protein 6.9 g/dL 6.4 - 8.4 05/29/2017 [facility] CHEM PANEL Bili Total 1.0 mg/dL 0.2 - 1.3 05/29/2017 [facility] CHEM PANEL Alk Phos 140 unit/L 39 - 136 05/29/2017 [facility] CHEM PANEL Albumin Lvl 3.7 g/dL 3.5 - 5.0 05/29/2017 [facility] CHEM PANEL ALANINE AMINOTRANSFERASE 57 unit/L 0 - 65 05/29/2017 [facility] CHEM PANEL Magnesium Lvl 2.2 mg/dL 1.8 - 2.4 05/29/2017 [facility] CHEM PANEL Phosphorus 3.8 mg/dL 2.5 - 4.5 05/29/2017 [facility] CHEM PANEL Lactic Acid Lvl 1.1 mMol/L 0.5 - 2.2 05/27/2017 [facility] CHEM PANEL Magnesium Lvl 2.1 mg/dL 1.8 - 2.4 05/27/2017 [facility] CHEM PANEL Phosphorus 3.9 mg/dL 2.5 - 4.5 05/27/2017 [facility] HEMATOLOGY Hypochrom 1+ (05/27/17 3:40 AM) None Seen 05/27/2017 [facility] HEMATOLOGY Polychrom Slight 05/27/2017 [facility] HEMATOLOGY Anisocyte 1+ *ABN* (05/27/17 3:40 AM) None Seen 05/27/2017 [facility] HEMATOLOGY Target Cell Slight 05/27/2017 [facility] HEMATOLOGY Sickle Cell Slight 05/27/2017 [facility] HEMATOLOGY Large Plt Slight 05/27/2017 [facility] HEMATOLOGY Toxic Gran Slight 05/27/2017 [facility] HEMATOLOGY aPTT 32.3 s 22.9 - 35.8 05/27/2017 [facility] HEMATOLOGY PROTIME 14.6 s 12.0 - 14.7 05/27/2017 [facility] HEMATOLOGY INR 1.12 0.85 - 1.17 05/27/2017 [facility] URINE AND STOOL UA Bacteria Few /HPF None Seen /HPF 05/27/2017 [facility] URINE AND STOOL UA RBC None Seen (05/27/17 2:56 AM) 0 - 2 05/27/2017 [facility] URINE AND STOOL UA Urobilinogen 0.2 EU/dL 0.1 - 1.0 05/27/2017 [facility] URINE AND STOOL UA Nitrite Negative (05/27/17 2:56 AM) Negative 05/27/2017 [facility] URINE AND STOOL UA Sq Epi Few /LPF Few /LPF 05/27/2017 [facility] URINE AND STOOL UA Leuk Est Negative (05/27/17 2:56 AM) Negative 05/27/2017 [facility] URINE AND STOOL UA Glucose Negative (05/27/17 2:56 AM) Negative 05/27/2017 [facility] URINE AND STOOL UA Ketones Negative *NA* (05/27/17 2:56 AM) Negative 05/27/2017 [facility] URINE AND STOOL UA Protein Negative (05/27/17 2:56 AM) Negative 05/27/2017 [facility] URINE AND STOOL UA Bili Negative *NA* (05/27/17 2:56 AM) Negative 05/27/2017 [facility] URINE AND STOOL UA Blood Negative (05/27/17 2:56 AM) Negative 05/27/2017 [facility] URINE AND STOOL UA Color Yellow *NA* (05/27/17 2:56 AM) Yellow 05/27/2017 [facility] URINE AND STOOL UA Turbidity Clear (05/27/17 2:56 AM) Clear 05/27/2017 [facility] URINE AND STOOL UA Spec Grav <=1.005
*NA*
(05/27/17 2:56 AM) <=1.030 05/27/2017 [facility] URINE AND STOOL UA pH 5.5 5.0 - 8.0 05/27/2017 [facility] URINE AND STOOL UA WBC 0-2 /HPF None Seen /HPF 05/27/2017 [facility] CARDIAC ENZYMES CK-MB INDEX null 0.0 - 2.5 05/27/2017 [facility] CARDIAC ENZYMES CK MB null 0.5 - 3.6 05/27/2017 [facility] CARDIAC ENZYMES Troponin-I null 0.00 - 0.40 05/27/2017 [facility] CARDIAC ENZYMES Total CK 33 unit/L 12 - 191 05/27/2017 [facility] ENDOCRINOLOGY S Preg Negative *NA* (05/26/17 10:04 PM) Negative 05/27/2017 [facility] Abdomen RUQ US Abdomen RUQ US RIGHT UPPER QUADRANT ULTRASOUND: HISTORY: Abnormal liver function studies. FINDINGS: The gallbladder is mildly contracted with mild wall thickening. Small stones in the gallbladder lumen are noted. There is no pericholecystic fluid. There is no evidence of biliary dilatation. The common duct measures 4 mm in diameter. The liver is enlarged, with a right lobe sagittal span of approximately 20 cm. There is mildly increased echogenicity of the liver parenchyma without focal abnormalities or surface nodularity. Hepatopedal flow in the main portal vein is demonstrated. The visible pancreas, right kidney and inferior vena cava are unremarkable. The pancreatic duct in the body and tail is partially visualized and is normal caliber. IMPRESSION: 1. Cholelithiasis without biliary dilatation. 2. Hepatomegaly with fatty infiltration. [id number] 05/27/2017 - - Read by: Savage Zeng MD Dictated Date/time: 05/27/17 08:06 Electronically Signed by: Savage Zeng MD 05/27/17 08:10 FINAL REPORT [facility] Hip bilat w pelvis and both lat hips DX Hip bilat w pelvis and both lat hips DX Study: Frontal view of pelvis and 2 views of bilateral hip joints History: Bilateral hip pain. Sickle cell disease Comments: Normal bone mineralization. No acute fracture or dislocation. No radiographic evidence of avascular necrosis in the femoral heads. No joint space narrowing or erosive changes in the hip joints. IMPRESSION: Normal radiographs of the pelvis and bilateral hip joints 05/26/2017 - - Read by: Naima Castillo MD Dictated Date/time: 05/27/17 00:01 Electronically Signed by: Naima Castillo MD 05/27/17 00:05 FINAL REPORT [facility] Chest 1view DX Chest 1view DX Clinical Indication: - chestpain in a sickle cell patient; Comparison: 05/12/2017 Technique: X-ray chest frontal projection FINDINGS: There is mild pulmonary congestion. There is no focal consolidation, pleural effusion or pneumothorax. The heart is normal in size. The mediastinum and herman are unremarkable. The visualized bones and soft tissues are within normal limits. IMPRESSION: Mild pulmonary congestion. SL: [id number] 05/26/2017 - - Read by: Saba Ling MD Dictated Date/time: 05/26/17 22:20 Electronically Signed by: Saba Ling MD 05/26/17 22:21 FINAL REPORT [facility] HEMATOLOGY Hct 21.4 % 36.0 - 48.0 05/15/2017 [facility] HEMATOLOGY Hgb 7.0 g/dL 12.0 - 16.0 05/15/2017 Result Comment: Critical Result(s) called to raine cobb at 05/15/2017 14:35 by BP. Read back OK. [facility] CHEM PANEL LDH 348 unit/L 98 - 192 05/15/2017 [facility] CHEM PANEL Phosphorus 3.4 mg/dL 2.5 - 4.5 05/15/2017 [facility] CHEM PANEL Total Protein 6.1 g/dL 6.4 - 8.4 05/15/2017 [facility] CHEM PANEL Albumin Lvl 3.5 g/dL 3.5 - 5.0 05/15/2017 [facility] CHEM PANEL ALT 13 unit/L 0 - 65 05/15/2017 [facility] CHEM PANEL Alk Phos 74 unit/L 39 - 136 05/15/2017 [facility] CHEM PANEL Bili Direct 0.2 mg/dL 0.0 - 0.3 05/15/2017 [facility] CHEM PANEL AST 17 unit/L 0 - 37 05/15/2017 [facility] CHEM PANEL Bili Total 0.7 mg/dL 0.2 - 1.3 05/15/2017 [facility] CHEM PANEL Globulin 2.6 g/dL 2.7 - 4.2 05/15/2017 [facility] CHEM PANEL Bili Indirect 0.5 mg/dL 0.0 - 1.0 05/15/2017 [facility] CHEM PANEL A/G Ratio 1.3 0.7 - 1.6 05/15/2017 [facility] CHEM PANEL Magnesium Lvl 1.9 mg/dL 1.8 - 2.4 05/15/2017 [facility] CHEM PANEL eGFR 172 mL/min/1.73m2 05/15/2017 Result Comment: The eGFR is calculated using the CKD-EPI formula. In most young, healthy individuals the eGFR will be >90 mL/min/1.73m2. The eGFR declines with age. An eGFR of 60-89 may be normal in some populations, particularly the elderly, for whom the CKD-EPI formula has not been extensively validated. Use of the eGFR is not recommended in the following populations: Individuals with unstable creatinine concentrations, including patients and those with serious co-morbid conditions. Patients with extremes in muscle mass or diet. The data above are obtained from the National Kidney Disease Education Program (NKDEP) which additionally recommends that when the eGFR is used in patients with extremes of body mass index for purposes of drug dosing, the eGFR should be multiplied by the estimated BMI. [facility] CHEM PANEL BUN 3 mg/dL 7 - 22 05/15/2017 [facility] CHEM PANEL Creatinine Lvl 0.41 mg/dL 0.50 - 1.40 05/15/2017 [facility] CHEM PANEL Sodium Lvl 142 meq/L 135 - 145 05/15/2017 [facility] CHEM PANEL Chloride Lvl 109 meq/L 95 - 109 05/15/2017 [facility] CHEM PANEL Potassium Lvl 3.4 meq/L 3.5 - 5.1 05/15/2017 [facility] CHEM PANEL CO2 29 meq/L 24 - 32 05/15/2017 [facility] CHEM PANEL Calcium Lvl 7.8 mg/dL 8.5 - 10.5 05/15/2017 [facility] CHEM PANEL Glucose Lvl 95 mg/dL 70 - 99 05/15/2017 [facility] CHEM PANEL AGAP 7.4 meq/L 10.0 - 20.0 05/15/2017 [facility] HEMATOLOGY Monocytes # 1.2 K/CMM 0.0 - 0.8 05/15/2017 [facility] HEMATOLOGY Basophils 1.2 % 0.0 - 1.0 05/15/2017 [facility] HEMATOLOGY Lymphocytes # 2.7 K/CMM 1.0 - 5.5 05/15/2017 [facility] HEMATOLOGY Segs-Bands # 4.8 K/CMM 1.5 - 8.1 05/15/2017 [facility] HEMATOLOGY Lymphocytes 29.1 % 20.0 - 40.0 05/15/2017 [facility] HEMATOLOGY Eosinophils 5.7 % 0.0 - 4.0 05/15/2017 [facility] HEMATOLOGY Monocytes 12.6 % 2.0 - 12.0 05/15/2017 [facility] HEMATOLOGY Microcyte 2+ *ABN* (05/15/17 4:16 AM) None Seen 05/15/2017 [facility] HEMATOLOGY Eosinophils # 0.5 K/CMM 0.0 - 0.5 05/15/2017 [facility] HEMATOLOGY Basophils # 0.1 K/CMM 0.0 - 0.2 05/15/2017 [facility] HEMATOLOGY Segs 51.4 % 45.0 - 75.0 05/15/2017 [facility] HEMATOLOGY Hct 17.4 % 36.0 - 48.0 05/15/2017 [facility] HEMATOLOGY RDW 16.6 % 11.5 - 14.5 05/15/2017 [facility] HEMATOLOGY MCH 22.7 pg 27.0 - 31.0 05/15/2017 [facility] HEMATOLOGY MCHC 32.7 g/dL 32.0 - 36.0 05/15/2017 [facility] HEMATOLOGY Platelet 265 K/CMM 133 - 450 05/15/2017 [facility] HEMATOLOGY MCV 69.4 fL 80.0 - 98.0 05/15/2017 [facility] HEMATOLOGY RBC 2.50 M/CMM 4.20 - 5.40 05/15/2017 [facility] HEMATOLOGY Hgb 5.7 g/dL 12.0 - 16.0 05/15/2017 Result Comment: Critical Result(s) called to Rito Seth at 05/15/2017 07:04 by BP. Read back OK. [facility] HEMATOLOGY WBC 9.3 K/CMM 3.7 - 10.4 05/15/2017 [facility] HEMATOLOGY MPV 8.8 fL 7.4 - 10.4 05/15/2017 [facility] CHEM PANEL Phosphorus 4.1 mg/dL 2.5 - 4.5 05/14/2017 [facility] CHEM PANEL A/G Ratio 1.4 0.7 - 1.6 05/14/2017 [facility] CHEM PANEL Globulin 2.6 g/dL 2.7 - 4.2 05/14/2017 [facility] CHEM PANEL Bili Indirect 0.6 mg/dL 0.0 - 1.0 05/14/2017 [facility] CHEM PANEL Bili Direct 0.2 mg/dL 0.0 - 0.3 05/14/2017 [facility] CHEM PANEL Bili Total 0.8 mg/dL 0.2 - 1.3 05/14/2017 [facility] CHEM PANEL AST 19 unit/L 0 - 37 05/14/2017 [facility] CHEM PANEL Alk Phos 67 unit/L 39 - 136 05/14/2017 [facility] CHEM PANEL ALT 14 unit/L 0 - 65 05/14/2017 [facility] CHEM PANEL Albumin Lvl 3.6 g/dL 3.5 - 5.0 05/14/2017 [facility] CHEM PANEL Total Protein 6.2 g/dL 6.4 - 8.4 05/14/2017 [facility] CHEM PANEL Magnesium Lvl 2.2 mg/dL 1.8 - 2.4 05/14/2017 [facility] ELECTROLYTES AGAP 9.0 meq/L 10.0 - 20.0 05/14/2017 [facility] ELECTROLYTES eGFR 169 mL/min/1.73m2 05/14/2017 Result Comment: The eGFR is calculated using the CKD-EPI formula. In most young, healthy individuals the eGFR will be >90 mL/min/1.73m2. The eGFR declines with age. An eGFR of 60-89 may be normal in some populations, particularly the elderly, for whom the CKD-EPI formula has not been extensively validated. Use of the eGFR is not recommended in the following populations: Individuals with unstable creatinine concentrations, including patients and those with serious co-morbid conditions. Patients with extremes in muscle mass or diet. The data above are obtained from the National Kidney Disease Education Program (NKDEP) which additionally recommends that when the eGFR is used in patients with extremes of body mass index for purposes of drug dosing, the eGFR should be multiplied by the estimated BMI. [facility] ELECTROLYTES Creatinine Lvl 0.43 mg/dL 0.50 - 1.40 05/14/2017 [facility] ELECTROLYTES Sodium Lvl 141 meq/L 135 - 145 05/14/2017 [facility] ELECTROLYTES BUN 3 mg/dL 7 - 22 05/14/2017 [facility] ELECTROLYTES Glucose Lvl 76 mg/dL 70 - 99 05/14/2017 [facility] ELECTROLYTES Calcium Lvl 8.2 mg/dL 8.5 - 10.5 05/14/2017 [facility] ELECTROLYTES Chloride Lvl 108 meq/L 95 - 109 05/14/2017 [facility] ELECTROLYTES CO2 28 meq/L 24 - 32 05/14/2017 [facility] ELECTROLYTES Potassium Lvl 4.0 meq/L 3.5 - 5.1 05/14/2017 [facility] HEMATOLOGY Retic Auto 6.1 % 0.5 - 1.5 05/14/2017 [facility] HEMATOLOGY MPV 8.6 fL 7.4 - 10.4 05/14/2017 [facility] HEMATOLOGY RDW 17.1 % 11.5 - 14.5 05/14/2017 [facility] HEMATOLOGY Platelet 239 K/CMM 133 - 450 05/14/2017 [facility] HEMATOLOGY MCHC 33.2 g/dL 32.0 - 36.0 05/14/2017 [facility] HEMATOLOGY MCH 22.8 pg 27.0 - 31.0 05/14/2017 [facility] HEMATOLOGY MCV 68.7 fL 80.0 - 98.0 05/14/2017 [facility] HEMATOLOGY RBC 2.53 M/CMM 4.20 - 5.40 05/14/2017 [facility] HEMATOLOGY Hct 17.4 % 36.0 - 48.0 05/14/2017 [facility] HEMATOLOGY Hgb 5.8 g/dL 12.0 - 16.0 05/14/2017 Result Comment: Critical Result(s) called to Radha Gonzalez RN_ at 05/14/2017 08:05_ by Jes_. Read back OK. [facility] HEMATOLOGY WBC 9.6 K/CMM 3.7 - 10.4 05/14/2017 [facility] HEMATOLOGY Plt Morph Normal (05/14/17 5:39 AM) 05/14/2017 [facility] HEMATOLOGY Segs 55.4 % 45.0 - 75.0 05/14/2017 [facility] HEMATOLOGY Eosinophils # 0.6 K/CMM 0.0 - 0.5 05/14/2017 [facility] HEMATOLOGY Basophils # 0.1 K/CMM 0.0 - 0.2 05/14/2017 [facility] HEMATOLOGY Microcyte 3+ *NA* (05/14/17 5:39 AM) None Seen 05/14/2017 [facility] HEMATOLOGY Monocytes # 1.1 K/CMM 0.0 - 0.8 05/14/2017 [facility] HEMATOLOGY Lymphocytes # 2.5 K/CMM 1.0 - 5.5 05/14/2017 [facility] HEMATOLOGY Schistocyte 1-3 per HPF (05/14/17 5:39 AM) None Seen 05/14/2017 [facility] HEMATOLOGY Sickle Cell Slight *ABN* (05/14/17 5:39 AM) None Seen 05/14/2017 [facility] HEMATOLOGY Target Cell Moderate *ABN* (05/14/17 5:39 AM) None Seen 05/14/2017 [facility] HEMATOLOGY Tear Cell Moderate *ABN* (05/14/17 5:39 AM) None Seen 05/14/2017 [facility] HEMATOLOGY Basophils 1.4 % 0.0 - 1.0 05/14/2017 [facility] HEMATOLOGY Monocytes 11.1 % 2.0 - 12.0 05/14/2017 [facility] HEMATOLOGY Eosinophils 6.1 % 0.0 - 4.0 05/14/2017 [facility] HEMATOLOGY Segs-Bands # 5.3 K/CMM 1.5 - 8.1 05/14/2017 [facility] HEMATOLOGY Hypochrom 1+ (05/14/17 5:39 AM) None Seen 05/14/2017 [facility] HEMATOLOGY Lymphocytes 26.0 % 20.0 - 40.0 05/14/2017 [facility] PARATHYROID PROFILE Ca Norm WB 1.10 mMol/L 1.05 - 1.25 05/14/2017 [facility] PARATHYROID PROFILE Ca Ion WB 1.11 mMol/L 1.05 - 1.25 05/14/2017 [facility] CHEM PANEL Magnesium Lvl 2.2 mg/dL 1.8 - 2.4 05/13/2017 [facility] CHEM PANEL Phosphorus 4.0 mg/dL 2.5 - 4.5 05/13/2017 [facility] CHEM PANEL Bili Direct 0.3 mg/dL 0.0 - 0.3 05/13/2017 [facility] CHEM PANEL Bili Total 1.3 mg/dL 0.2 - 1.3 05/13/2017 [facility] CHEM PANEL AST 20 unit/L 0 - 37 05/13/2017 [facility] CHEM PANEL ALT 15 unit/L 0 - 65 05/13/2017 [facility] CHEM PANEL Albumin Lvl 3.5 g/dL 3.5 - 5.0 05/13/2017 [facility] CHEM PANEL Total Protein 6.0 g/dL 6.4 - 8.4 05/13/2017 [facility] CHEM PANEL Alk Phos 64 unit/L 39 - 136 05/13/2017 [facility] CHEM PANEL A/G Ratio 1.4 0.7 - 1.6 05/13/2017 [facility] CHEM PANEL Globulin 2.5 g/dL 2.7 - 4.2 05/13/2017 [facility] CHEM PANEL Bili Indirect 1.0 mg/dL 0.0 - 1.0 05/13/2017 [facility] ELECTROLYTES AGAP 8.1 meq/L 10.0 - 20.0 05/13/2017 [facility] ELECTROLYTES eGFR 170 mL/min/1.73m2 05/13/2017 Result Comment: The eGFR is calculated using the CKD-EPI formula. In most young, healthy individuals the eGFR will be >90 mL/min/1.73m2. The eGFR declines with age. An eGFR of 60-89 may be normal in some populations, particularly the elderly, for whom the CKD-EPI formula has not been extensively validated. Use of the eGFR is not recommended in the following populations: Individuals with unstable creatinine concentrations, including patients and those with serious co-morbid conditions. Patients with extremes in muscle mass or diet. The data above are obtained from the National Kidney Disease Education Program (NKDEP) which additionally recommends that when the eGFR is used in patients with extremes of body mass index for purposes of drug dosing, the eGFR should be multiplied by the estimated BMI. [facility] ELECTROLYTES CO2 27 meq/L 24 - 32 05/13/2017 [facility] ELECTROLYTES Potassium Lvl 4.1 meq/L 3.5 - 5.1 05/13/2017 [facility] ELECTROLYTES Glucose Lvl 78 mg/dL 70 - 99 05/13/2017 [facility] ELECTROLYTES BUN 6 mg/dL 7 - 05/13/2017 [facility] ELECTROLYTES Calcium Lvl 8.4 mg/dL 8.5 - 10.5 05/13/2017 [facility] ELECTROLYTES Chloride Lvl 110 meq/L 95 - 109 05/13/2017 [facility] ELECTROLYTES Creatinine Lvl 0.43 mg/dL 0.50 - 1.40 05/13/2017 [facility] ELECTROLYTES Sodium Lvl 141 meq/L 135 - 145 05/13/2017 [facility] HEMATOLOGY MPV 8.7 fL 7.4 - 10.4 05/13/2017 [facility] HEMATOLOGY Platelet 219 K/CMM 133 - 450 05/13/2017 [facility] HEMATOLOGY MCV 68.4 fL 80.0 - 98.0 05/13/2017 [facility] HEMATOLOGY MCH 22.4 pg 27.0 - 31.0 05/13/2017 [facility] HEMATOLOGY MCHC 32.8 g/dL 32.0 - 36.0 05/13/2017 [facility] HEMATOLOGY RDW 16.7 % 11.5 - 14.5 05/13/2017 [facility] HEMATOLOGY WBC 8.6 K/CMM 3.7 - 10.4 05/13/2017 [facility] HEMATOLOGY RBC 2.44 M/CMM 4.20 - 5.40 05/13/2017 [facility] HEMATOLOGY Toxic Gran Slight 05/13/2017 [facility] HEMATOLOGY Segs 53.2 % 45.0 - 75.0 05/13/2017 [facility] HEMATOLOGY Sickle Cell Occasional *ABN* (05/13/17 6:18 AM) None Seen 05/13/2017 [facility] HEMATOLOGY Spherocyte Occasional *ABN* (05/13/17 6:18 AM) None Seen 05/13/2017 [facility] HEMATOLOGY Microcyte 3+ *NA* (05/13/17 6:18 AM) None Seen 05/13/2017 [facility] HEMATOLOGY Basophils # 0.1 K/CMM 0.0 - 0.2 05/13/2017 [facility] HEMATOLOGY Schistocyte 1-3 per HPF (05/13/17 6:18 AM) None Seen 05/13/2017 [facility] HEMATOLOGY Tear Cell Moderate *ABN* (05/13/17 6:18 AM) None Seen 05/13/2017 [facility] HEMATOLOGY Eosinophils # 0.7 K/CMM 0.0 - 0.5 05/13/2017 [facility] HEMATOLOGY Basophils 1.1 % 0.0 - 1.0 05/13/2017 [facility] HEMATOLOGY Lymphocytes # 2.2 K/CMM 1.0 - 5.5 05/13/2017 [facility] HEMATOLOGY Segs-Bands # 4.6 K/CMM 1.5 - 8.1 05/13/2017 [facility] HEMATOLOGY Monocytes # 1.2 K/CMM 0.0 - 0.8 05/13/2017 [facility] HEMATOLOGY Eosinophils 8.2 % 0.0 - 4.0 05/13/2017 [facility] HEMATOLOGY Lymphocytes 24.8 % 20.0 - 40.0 05/13/2017 [facility] HEMATOLOGY Monocytes 13.7 % 2.0 - 12.0 05/13/2017 [facility] HEMATOLOGY Plt Morph Normal (05/13/17 6:18 AM) 05/13/2017 [facility] CHEM PANEL LDH 444 unit/L 98 - 192 05/12/2017 [facility] Chest 2 views DX Chest 2 views DX EXAM: XR CHEST 2 VIEWS DATE: 05/12/2017 9:19 AM CDT INDICATION: - PMHx of sickle cell disease w/ new complaint of chest pain - Acute chest eval COMPARISON: None TECHNIQUE: PA and lateral chest radiographs FINDINGS: Lines and tubes: None. Lungs and pleura: Lungs are predominantly clear with patchy bibasilar platelike atelectasis / scarring. No pleural effusion or pneumothorax. Heart and mediastinum: The heart size is normal. The mediastinal contours are normal. Bones: No acute bony abnormality is identified. 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 IMPRESSION: No acute cardiopulmonary abnormality. No significant interval change since 05/08/2017. 05/12/2017 - - This report was dictated by a Foundry Tender/Fellow. I have personally reviewed the images as well as the Resident's interpretation and agree with the findings. Read by: Barney Lee MD Resident: Barney Lee MD Dictated Date/time: 05/12/17 15:10 Electronically Signed by: Torsten Dale MD 05/12/17 15:45 FINAL REPORT [facility] HEMATOLOGY Target Cell Moderate *ABN* (05/12/17 5:47 AM) None Seen 05/12/2017 [facility] HEMATOLOGY Sickle Cell Slight *ABN* (05/12/17 5:47 AM) None Seen 05/12/2017 [facility] HEMATOLOGY Spherocyte Occasional *ABN* (05/12/17 5:47 AM) None Seen 05/12/2017 [facility] HEMATOLOGY Schistocyte 1-3 per HPF (05/12/17 5:47 AM) None Seen 05/12/2017 [facility] HEMATOLOGY Plt Morph Normal (05/12/17 5:47 AM) 05/12/2017 [facility] HEMATOLOGY Hypochrom 1+ (05/12/17 5:47 AM) None Seen 05/12/2017 [facility] HEMATOLOGY Polychrom Moderate *ABN* (05/12/17 5:47 AM) None Seen 05/12/2017 [facility] HEMATOLOGY Tear Cell Moderate *ABN* (05/12/17 5:47 AM) None Seen 05/12/2017 [facility] HEMATOLOGY Retic Auto 7.5 % 0.5 - 1.5 05/12/2017 [facility] HEMATOLOGY Retic Auto 7.6 % 0.5 - 1.5 05/11/2017 [facility] HEMATOLOGY Anisocyte 1+ *ABN* (05/11/17 5:22 AM) None Seen 05/11/2017 [facility] HEMATOLOGY Target Cell Moderate *ABN* (05/11/17 5:22 AM) None Seen 05/11/2017 [facility] HEMATOLOGY Polychrom Moderate *ABN* (05/11/17 5:22 AM) None Seen 05/11/2017 [facility] HEMATOLOGY NRBC 3 /100WB 05/11/2017 [facility] HEMATOLOGY Atypical Lymphs 0.0 % <=0.0 % 05/11/2017 [facility] HEMATOLOGY Bands 0.0 % 0.0 - 11.0 05/11/2017 [facility] HEMATOLOGY Anisocyte 1+ *ABN* (05/10/17 5:18 AM) None Seen 05/10/2017 [facility] HEMATOLOGY Polychrom Moderate *ABN* (05/10/17 5:18 AM) None Seen 05/10/2017 [facility] HEMATOLOGY Hypochrom 1+ (05/10/17 5:18 AM) None Seen 05/10/2017 [facility] HEMATOLOGY Bands 0.0 % 0.0 - 11.0 05/10/2017 [facility] HEMATOLOGY NRBC 4 /100WB 05/10/2017 [facility] HEMATOLOGY Atypical Lymphs 0.0 % <=0.0 % 05/10/2017 [facility] HEMATOLOGY Spherocyte Rare *ABN* (05/09/17 3:10 AM) None Seen 05/09/2017 [facility] PARATHYROID PROFILE Ca Norm WB 1.11 mMol/L 1.05 - 1.25 05/09/2017 [facility] PARATHYROID PROFILE Ca Ion WB 1.14 mMol/L 1.05 - 1.25 05/09/2017 [facility] Chest 2 views DX Chest 2 views DX EXAM: XR CHEST 2 VIEWS DATE: 05/08/2017 11:04 AM CDT INDICATION: - Pt. with PMHx of sickle cell disease in pain crisis with new complaint of chest pain and SOB COMPARISON: None. TECHNIQUE: PA and lateral chest radiographs. FINDINGS: Lines and tubes, and life support devices: None. Lungs and pleura: Lung volumes are low. Left basilar subsegmental atelectasis is seen. No focal consolidation or pleural effusion or pneumothorax is identified. Heart and mediastinum: The heart size is mildly prominent. The mediastinal contours are normal. Bones: No acute bony abnormality is identified. H shaped vertebrae are seen in the thoracic spine consistent with a history of sickle cell disease. IMPRESSION: No acute intrathoracic radiographic abnormality. Prominent heart size could be related to low lung volumes or cardiomegaly. 05/08/2017 - - Read by: Clint Jaffe Dictated Date/time: 05/09/17 03:43 Electronically Signed by: Clint Jaffe 05/09/17 03:45 FINAL REPORT [facility] ANEMIA STUDY Ferritin Lvl 535 ng/mL 5 - 204 05/08/2017 [facility] ANEMIA STUDY UIBC 110 ug/dl 110 - 370 05/08/2017 [facility] ANEMIA STUDY % [place] 25 % 12 - 57 05/08/2017 [facility] ANEMIA STUDY TIBC 147 ug/dl 228 - 428 05/08/2017 [facility] ANEMIA STUDY Iron 37 ug/dl 30 - 160 05/08/2017 [facility] URINE CHEM U Preg Negative (05/07/17 10:22 AM) Negative 05/07/2017 [facility] HEMATOLOGY Atypical Lymphs 0.0 % <=0.0 % 05/07/2017 [facility] HEMATOLOGY Anisocyte 1+ *ABN* (05/07/17 7:02 AM) None Seen 05/07/2017 [facility] HEMATOLOGY Bands 0.0 % 0.0 - 11.0 05/07/2017 [facility] Vital Signs Vital Sign Value Date Comments Source Respitory Rate 18 05/24/2018 [facility] Systolic (mm Hg) 117 05/24/2018 [facility] Diastolic (mm Hg) 71 05/24/2018 [facility] Heart Rate 77 05/24/2018 [facility] Temperature Oral (F) 98.6 F 05/24/2018 [facility] Systolic (mm Hg) 116 05/24/2018 [facility] Diastolic (mm Hg) 75 05/24/2018 [facility] Heart Rate 80 05/24/2018 [facility] Temperature Oral (F) 98.5 F 05/24/2018 [facility] Respitory Rate 18 05/24/2018 [facility] Systolic (mm Hg) 120 05/24/2018 [facility] Diastolic (mm Hg) 82 05/24/2018 [facility] Respitory Rate 18 05/24/2018 [facility] Temperature Oral (F) 98.7 F 05/24/2018 [facility] Heart Rate 85 05/24/2018 [facility] Height 162.56 cm 05/19/2018 [facility] Weight 56.818 05/19/2018 [facility] BMI Calculated 21.5 05/19/2018 [facility] Systolic (mm Hg) 94 05/18/2018 [facility] Diastolic (mm Hg) 54 05/18/2018 [facility] Heart Rate 95 05/18/2018 [facility] Respitory Rate 18 05/18/2018 [facility] Temperature Oral (F) 98.7 F 05/18/2018 [facility] Systolic (mm Hg) 113 05/18/2018 [facility] Diastolic (mm Hg) 71 05/18/2018 [facility] Respitory Rate 18 05/18/2018 [facility] Temperature Oral (F) 98.5 F 05/18/2018 [facility] Heart Rate 90 05/18/2018 [facility] Heart Rate 86 05/18/2018 [facility] Systolic (mm Hg) 96 05/18/2018 [facility] Diastolic (mm Hg) 57 05/18/2018 [facility] Temperature Oral (F) 98.4 F 05/18/2018 [facility] Respitory Rate 16 05/18/2018 [facility] Height 162.56 cm 05/15/2018 [facility] BMI Calculated 24.96 05/15/2018 [facility] Weight 65.966 05/15/2018 [facility] Weight 56.818 05/15/2018 [facility] Height 157.48 cm 05/15/2018 [facility] BMI Calculated 22.91 05/15/2018 [facility] Systolic (mm Hg) 108 05/09/2018 [facility] Diastolic (mm Hg) 63 05/09/2018 [facility] Respitory Rate 18 05/09/2018 [facility] Heart Rate 91 05/09/2018 [facility] Temperature Oral (F) 98.9 F 05/09/2018 [facility] Heart Rate 60 05/09/2018 [facility] Respitory Rate 18 05/09/2018 [facility] Systolic (mm Hg) 104 05/09/2018 [facility] Diastolic (mm Hg) 63 05/09/2018 [facility] Temperature Oral (F) 97.9 F 05/09/2018 [facility] Systolic (mm Hg) 98 05/09/2018 [facility] Diastolic (mm Hg) 56 05/09/2018 [facility] Respitory Rate 18 05/09/2018 [facility] Heart Rate 85 05/09/2018 [facility] Temperature Oral (F) 97.8 F 05/09/2018 [facility] Weight 56.818 05/06/2018 [facility] BMI Calculated 21.5 05/06/2018 [facility] Height 162.56 cm 05/06/2018 [facility] Weight 56.818 05/06/2018 [facility] Heart Rate 99 02/09/2018 [facility] Respitory Rate 18 02/09/2018 [facility] Temperature Oral (F) 98.4 F 02/09/2018 [facility] Systolic (mm Hg) 132 02/09/2018 [facility] Diastolic (mm Hg) 60 02/09/2018 [facility] Temperature Oral (F) 98.7 F 11/05/2017 [facility] Heart Rate 120 11/05/2017 [facility] Systolic (mm Hg) 126 11/05/2017 [facility] Diastolic (mm Hg) 75 11/05/2017 [facility] Respitory Rate 20 11/05/2017 [facility] Temperature Oral (F) 98.6 F 11/05/2017 [facility] Systolic (mm Hg) 108 11/05/2017 [facility] Diastolic (mm Hg) 60 11/05/2017 [facility] Heart Rate 117 11/05/2017 [facility] Respitory Rate 20 11/05/2017 [facility] Temperature Oral (F) 98.5 F 11/05/2017 [facility] Systolic (mm Hg) 120 11/05/2017 [facility] Diastolic (mm Hg) 63 11/05/2017 [facility] Heart Rate 110 11/05/2017 [facility] Respitory Rate 20 11/05/2017 [facility] Weight 56.818 11/05/2017 [facility] Height 162.56 cm 11/05/2017 [facility] BMI Calculated 21.5 11/05/2017 [facility] Temperature Oral (F) 99 F 11/03/2017 [facility] Heart Rate 96 11/03/2017 [facility] Systolic (mm Hg) 96 11/03/2017 [facility] Diastolic (mm Hg) 60 11/03/2017 [facility] Respitory Rate 18 11/03/2017 [facility] Systolic (mm Hg) 100 11/03/2017 [facility] Diastolic (mm Hg) 65 11/03/2017 [facility] Respitory Rate 20 11/03/2017 [facility] Heart Rate 75 11/03/2017 [facility] Temperature Oral (F) 98.5 F 11/03/2017 [facility] Systolic (mm Hg) 102 11/03/2017 [facility] Diastolic (mm Hg) 66 11/03/2017 [facility] Heart Rate 81 11/03/2017 [facility] Respitory Rate 18 11/03/2017 [facility] Temperature Oral (F) 98.5 F 11/03/2017 [facility] Weight 55.909 10/29/2017 [facility] BMI Calculated 21.83 10/29/2017 [facility] Height 160.02 cm 10/29/2017 [facility] Weight 54.545 10/28/2017 [facility] BMI Calculated 20.64 10/28/2017 [facility] Height 162.56 cm 10/28/2017 [facility] Height 162.56 cm 09/10/2017 [facility] BMI Calculated 22.36 09/10/2017 [facility] Respitory Rate 20 09/10/2017 [facility] Temperature Oral (F) 99 F 09/10/2017 [facility] Weight 59.091 09/10/2017 [facility] Heart Rate 87 09/10/2017 [facility] Systolic (mm Hg) 105 09/10/2017 [facility] Diastolic (mm Hg) 49 09/10/2017 [facility] Systolic (mm Hg) 113 07/28/2017 [facility] Diastolic (mm Hg) 67 07/28/2017 [facility] Respitory Rate 19 07/28/2017 [facility] Temperature Oral (F) 98.0 F 07/28/2017 [facility] Heart Rate 92 07/28/2017 [facility] Heart Rate 81 07/28/2017 [facility] Respitory Rate 19 07/28/2017 [facility] Systolic (mm Hg) 109 07/28/2017 [facility] Diastolic (mm Hg) 71 07/28/2017 [facility] Temperature Oral (F) 97.9 F 07/28/2017 [facility] Heart Rate 16 07/28/2017 [facility] Temperature Oral (F) 98.1 F 07/28/2017 [facility] Systolic (mm Hg) 123 07/28/2017 [facility] Diastolic (mm Hg) 78 07/28/2017 [facility] Respitory Rate 18 07/28/2017 [facility] Height 162.56 cm 07/15/2017 [facility] Weight 54.545 07/15/2017 [facility] BMI Calculated 20.64 07/15/2017 [facility] BMI Calculated 21.5 07/15/2017 [facility] Weight 56.818 07/15/2017 [facility] Height 162.56 cm 07/15/2017 [facility] Temperature Oral (F) 97.9 F 07/12/2017 [facility] Heart Rate 80 07/12/2017 [facility] Systolic (mm Hg) 120 07/12/2017 [facility] Diastolic (mm Hg) 71 07/12/2017 [facility] Respitory Rate 18 07/12/2017 [facility] Temperature Oral (F) 98 F 07/12/2017 [facility] Respitory Rate 18 07/12/2017 [facility] Systolic (mm Hg) 116 07/12/2017 [facility] Diastolic (mm Hg) 64 07/12/2017 [facility] Heart Rate 77 07/12/2017 [facility] Respitory Rate 18 07/12/2017 [facility] Systolic (mm Hg) 109 07/12/2017 [facility] Diastolic (mm Hg) 62 07/12/2017 [facility] Heart Rate 88 07/12/2017 [facility] Temperature Oral (F) 98.9 F 07/12/2017 [facility] Weight 56.818 07/09/2017 [facility] Height 162.56 cm 07/09/2017 [facility] BMI Calculated 21.5 07/08/2017 [facility] Height 162.56 cm 07/08/2017 [facility] Weight 56.818 07/08/2017 [facility] Height 162.56 cm 07/08/2017 [facility] Weight 58.636 07/08/2017 [facility] BMI Calculated 22.19 07/08/2017 [facility] Respitory Rate 14 07/07/2017 [facility] Heart Rate 100 07/06/2017 [facility] Respitory Rate 16 07/06/2017 [facility] Systolic (mm Hg) 129 07/06/2017 [facility] Diastolic (mm Hg) 78 07/06/2017 [facility] Temperature Oral (F) 98.5 F 07/06/2017 [facility] Respitory Rate 16 07/06/2017 [facility] Temperature Oral (F) 98.6 F 07/06/2017 [facility] Systolic (mm Hg) 145 07/06/2017 [facility] Diastolic (mm Hg) 56 07/06/2017 [facility] Systolic (mm Hg) 123 07/06/2017 [facility] Diastolic (mm Hg) 73 07/06/2017 [facility] Temperature Oral (F) 98.9 F 07/06/2017 [facility] Heart Rate 95 07/06/2017 [facility] Heart Rate 91 07/06/2017 [facility] BMI Calculated 21.5 07/01/2017 [facility] Weight 56.818 07/01/2017 [facility] Height 162.56 cm 07/01/2017 [facility] Weight 59.091 06/30/2017 [facility] BMI Calculated 22.36 06/30/2017 [facility] Height 162.56 cm 06/30/2017 [facility] Respitory Rate 18 06/05/2017 [facility] Temperature Oral (F) 98.1 F 06/05/2017 [facility] Respitory Rate 16 06/05/2017 [facility] Systolic (mm Hg) 99 06/05/2017 [facility] Diastolic (mm Hg) 60 06/05/2017 [facility] Heart Rate 97 06/05/2017 [facility] Temperature Oral (F) 98.2 F 06/05/2017 [facility] Respitory Rate 16 06/05/2017 [facility] Heart Rate 94 06/05/2017 [facility] Systolic (mm Hg) 92 06/05/2017 [facility] Diastolic (mm Hg) 45 06/05/2017 [facility] Heart Rate 88 06/05/2017 [facility] Systolic (mm Hg) 102 06/05/2017 [facility] Diastolic (mm Hg) 55 06/05/2017 [facility] Temperature Oral (F) 98.0 F 06/05/2017 [facility] BMI Calculated 22.17 05/27/2017 [facility] Weight 58.591 05/27/2017 [facility] Height 162.56 cm 05/27/2017 [facility] Weight 56.818 05/27/2017 [facility] Respitory Rate 18 05/15/2017 [facility] Systolic (mm Hg) 116 05/15/2017 [facility] Diastolic (mm Hg) 60 05/15/2017 [facility] Heart Rate 111 05/15/2017 [facility] Temperature Oral (F) 98.4 F 05/15/2017 [facility] Systolic (mm Hg) 98 05/15/2017 [facility] Diastolic (mm Hg) 53 05/15/2017 [facility] Temperature Oral (F) 98.4 F 05/15/2017 [facility] Heart Rate 80 05/15/2017 [facility] Respitory Rate 18 05/15/2017 [facility] Temperature Oral (F) 97.7 F 05/15/2017 [facility] Heart Rate 84 05/15/2017 [facility] Respitory Rate 18 05/15/2017 [facility] Systolic (mm Hg) 107 05/15/2017 [facility] Diastolic (mm Hg) 51 05/15/2017 [facility] Height 162.56 cm 05/07/2017 [facility] Weight 54.545 05/07/2017 [facility] BMI Calculated 20.64 05/07/2017 [facility] Height 162.56 cm 05/07/2017 [facility] BMI Calculated 20.64 05/07/2017 [facility] Weight 54.545 05/07/2017 [facility] Encounters Location Location Details Encounter Type Encounter Number Reason For Visit Attending Provider ADM Date DC Date Status Source [facility] Inpatient [id number] Hoda Nino 05/07/2017 05/16/2017 [facility] Inpatient [id number] Laci Claudio 05/27/2017 06/05/2017 [facility] Inpatient [id number] Montana Joy 06/30/2017 07/07/2017 [facility] Inpatient [id number] Jose Roberto Holt 07/08/2017 07/12/2017 [facility] Inpatient [id number] Jeana Kimball 07/15/2017 07/28/2017 [facility] Emergency [id number] Manuel Mueller 09/10/2017 09/10/2017 [facility] Inpatient [id number] Jeana Kimball 10/28/2017 11/03/2017 [facility] Emergency [id number] Manuel Ervin 11/05/2017 11/05/2017 [facility] Emergency [id number] Rolan Peters 02/09/2018 02/10/2018 [facility] Inpatient [id number] Connie Bertrand 05/06/2018 05/09/2018 [facility] Inpatient [id number] [place] Nicolas 05/15/2018 05/19/2018 [facility] Inpatient [id number] S[place] Nicolas 05/19/2018 05/24/2018 [facility] Procedures Procedure Code Date Perfomer Comments Source
--- OUTSIDE RECORDS SUMMARY | 2019-03-11 17:21 | XMS REPORT | Summary of Care ---
Author Author [facility] Organization [facility] Address Unknown Phone Unavailable Encounter GINGER Hobbs(ARSENIO) [id number] Date(s): 09/09/17 - 09/10/17 [facility] [id number] [employer] provided by [facility] [place] [address]- Discharge Disposition: Left Without Being Seen Attending Physician: Manuel Mueller MD Vital Signs Most recent to 1 oldest [Reference Range]: Height 162.56 cm (09/09/17 11:00 PM) Temperature Oral 99 DegF [96.4-99.1 DegF] (09/09/17 11:00 PM) Blood Pressure 105/49 mmHg [90-140/60-90 mmHg] (09/09/17 11:00 PM) Respiratory Rate 20 BRMIN [14-20 BRMIN] (09/09/17 11:00 PM) Peripheral Pulse 87 bpm Rate [60-100 bpm] (09/09/17 11:00 PM) Weight 59.091 kg (09/09/17 11:00 PM) Body Mass Index 22.36 m2 (09/09/17 11:00 PM) Problem List Condition Effective Dates Status Health Status Informant Anxiety disorder, Active unspecified(Confirme d) Cardiomegaly(Confirm Active ed) Sickle cell Active crisis(Confirmed) Depression(Confirmed Active ) Allergies, Adverse Reactions, Alerts Substance Reaction Severity Status Dilaudid Augmentin Active extreme memory loss Augmentin hives Active Medications No data available for this section Results No data available for this section Immunizations Not Given Vaccine Date Status Refusal Reason pneumococcal 13-valent vaccine 07/05/17 Not Given Patient Refuses Procedures No data available for this section Social History Social History Type Response Substance Abuse Use: None. Alcohol Never Smoking Status Never smoker; Exposure to Tobacco Smoke None; Cigarette Smoking Last 365 Days No; Reg Smoking Cessation Counseling No Assessment and Plan No data available for this section
--- OUTSIDE RECORDS SUMMARY | 2019-03-11 17:21 | XMS REPORT | Summary of Care ---
Author Author [facility] Organization [facility] Address Unknown Phone Unavailable Encounter GINGER Hobbs(ARSENIO) [id number] Date(s): 05/18/18 - 05/24/18 [facility] [address] [facility] provided by [facility] [place] [address]- Encounter Diagnosis Sickle-cell thalassemia with crisis, unspecified (Final) - 06/04/18 Pneumonia, unspecified organism (Final) - Atelectasis (Final) - Major depressive disorder, single episode, unspecified (Final) - Anxiety disorder, unspecified (Final) - Epilepsy, unspecified, not intractable, without status epilepticus (Final) - Drug induced constipation (Final) - Adverse effect of other opioids, initial encounter (Final) - Other ferry terminal agent (current) drug therapy (Final) - Other specified congenital malformations of heart (Final) - Other specified disorders of brain (Final) - Other abnormalities of breathing (Final) - Sleep disorder, unspecified (Final) - 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) - Discharge Disposition: Home or Self Care Attending Physician: Connie Bertrand MD Admitting Physician: Vladimir King MD Referring Physician: Soto Nicolas MD Vital Signs 1 2 3 Most recent to oldest [Reference Range]: 162.56 cm (05/18/18 8:15 PM) Height 98.6 DegF (05/24/18 7:28 AM) 98.5 DegF (05/24/18 4:19 AM) 98.7 DegF (05/23/18 11:51 PM) Temperature Oral [96.4-99.1 DegF] 117/71 mmHg (05/24/18 7:28 AM) 116/75 mmHg (05/24/18 4:19 AM) 120/82 mmHg (05/23/18 11:51 PM) Blood Pressure [90-140/60-90 mmHg] 18 BRMIN (05/24/18 7:28 AM) 18 BRMIN (05/24/18 4:19 AM) 18 BRMIN (05/23/18 11:51 PM) Respiratory Rate [14-20 BRMIN] 77 bpm (05/24/18 7:28 AM) 80 bpm (05/24/18 4:19 AM) 85 bpm (05/23/18 11:51 PM) Peripheral Pulse Rate [60-100 bpm] 56.818 kg (05/18/18 8:15 PM) Weight 21.5 m2 (05/18/18 8:15 PM) Body Mass Index Problem List Condition Effective Dates Status Health Status Informant Anxiety disorder, Active unspecified(Confirme d) Cardiomegaly(Confirm Active ed) Sickle cell Active crisis(Confirmed) Anxiety and Resolved depression(Confirmed ) Depression(Confirmed Active ) Sickle cell Active disease(Confirmed) Allergies, Adverse Reactions, Alerts Substance Reaction Severity Status Augmentin hives Active Medications 1/2 NS 1,000 mL 1,000 mL, Rate: 75 ml/hr, Infuse over: 13.3 hr, Route: IV, Dosing Weight 56.818 kg, Total Volume: 1,000, Start date: 05/20/18 7:16:00 CDT, Duration: 30 day, Sto p date: 06/19/18 7:15:00 CDT, 1.61, m2 Start Date: 05/20/18 Stop Date: 05/21/18 Status: Discontinued D5W 1/2NS 1,000 mL 1,000 mL, Rate: 75 ml/hr, Infuse over: 13.3 hr, Route: IV, Dosing Weight 56.818 kg, Total Volume: 1,000, Start date: 05/21/18 9:36:00 CDT, Duration: 30 day, Sto p date: 06/20/18 9:35:00 CDT, 1.61, m2 Start Date: 05/21/18 Stop Date: 05/24/18 Status: Discontinued docusate 100 mg, Route: PO, BID, Dosing Weight 56.818, kg, Start date: 05/19/18 9:00:00 C DT, Duration: 30 day, Stop date: 06/17/18 17:00:00 CDT Start Date: 05/19/18 Stop Date: 05/18/18 Status: Canceled docusate-senna 50 mg-8.6 mg oral tablet 1 tab, Route: PO, Drug Form: TAB, Dosing Weight 56.818, kg, Daily, Start date: 0 05/19/18 9:00:00 CDT, Duration: 30 day, Stop date: 06/17/18 9:00:00 CDT Start Date: 05/19/18 Stop Date: 05/18/18 Status: Canceled docusate-senna 50 mg-8.6 mg oral tablet 1 tab, Route: PO, Drug Form: TAB, Dosing Weight 56.818, kg, Daily, Start date: 0 05/18/18 20:53:00 CDT, Duration: 30 day, Stop date: 06/17/18 9:00:00 CDT Notes: (Same as Senokot-S) Equiv. to Nasima-Colace. Start Date: 05/18/18 Stop Date: 05/19/18 Status: Discontinued docusate-senna 50 mg-8.6 mg oral tablet 1 tab, Route: PO, Drug Form: TAB, Dosing Weight 56.818, kg, BID, Start date: 9:00:00 CDT, Duration: 30 day, Stop date: 06/17/18 17:00:00 CDT Notes: (Same as Senokot-S) Equiv. to Nasima-Colace. Start Date: 05/19/18 Stop Date: 05/24/18 Status: Discontinued DuoNeb inhalation solution 3 mL, Route: NEB, Drug Form: SOLN, Dosing Weight 56.818, kg, PRN, PRN as needed for shortness of breath or wheezing, Start date: 05/18/18 21:08:00 CDT, Duration : 30 day, Stop date: 06/17/18 21:07:00 CDT Notes: (Same as: Duoneb) Start Date: 05/18/18 Stop Date: 05/24/18 Status: Discontinued folic acid 1 mg, 1 tab, Route: PO, Drug form: TAB, Daily, Dosing Weight 56.818, kg, Start d ate: 05/19/18 9:00:00 CDT, Duration: 30 day, Stop date: 06/17/18 9:00:00 CDT Notes: (Same as: Folvite) Start Date: 05/19/18 Stop Date: 05/24/18 Status: Discontinued Keppra 500 mg oral tablet 500 mg, 1 tab, Route: PO, Drug form: TAB, BID, Dosing Weight 56.818, kg, Start d ate: 05/19/18 9:00:00 CDT, Duration: 30 day, Stop date: 06/17/18 17:00:00 CDT Notes: (Same as:Keppra) Start Date: 05/19/18 Stop Date: 05/24/18 Status: Discontinued ketOROLAC 15 mg, 1 mL, Route: IV, Drug form: INJ, Q6H, Dosing Weight 56.818, kg, Start marcus e: 05/19/18 0:18:00 CDT, Duration: 4 day, Stop date: 05/23/18 0:00:00 CDT Notes: (Same as:Toradol) IV bolus must be given >15 seconds. Give IM administration slowly and deeply into the muscle. Not for use > 4 days. Start Date: 05/19/18 Stop Date: 05/23/18 Status: Completed levofloxacin 750 mg, 1 tab, Route: PO, Drug form: TAB, [id number], Dosing Weight 56.818, kg, Sta rt date: 05/19/18 23:00:00 CDT, Duration: 30 day, Stop date: 06/17/18 23:00:00 C DT, ABX Indication: Pneumonia Notes: Do not give w/antacids, dairy pdt & mineralsTake 1 hr before or 2 hr after dairy products Start Date: 05/19/18 Stop Date: 05/21/18 Status: Discontinued levofloxacin 750 mg, 150 mL, Route: IVPB, Drug form: SOLN, [id number], Dosing Weight 56.818, kg, Start date: 05/19/18 0:01:00 CDT, Duration: 30 day, Stop date: 06/17/18 0:01:00 CDT, ABX Indication: Pneumonia Notes: (Same as:Levaquin) Start Date: 05/19/18 Stop Date: 05/19/18 Status: Discontinued levofloxacin 750 mg, 1 tab, Route: PO, Drug form: TAB, ONCE, Dosing Weight 56.818, kg, Start date: 05/21/18 23:30:00 CDT, Stop date: 05/21/18 23:30:00 CDT, ABX Indication: P neumonia Notes: Do not give w/antacids, dairy pdt & mineralsTake 1 hr before or 2 hr after dairy products Start Date: 05/21/18 Stop Date: 05/21/18 Status: Completed Lovenox 40 mg, 0.4 mL, Route: SUB-Q, Drug form: INJ, [id number], Dosing Weight 56.818, kg, Start date: 05/21/18 17:00:00 CDT, Duration: 30 day, Stop date: 06/19/18 17:00: 00 CDT Notes: (Same as: Lovenox) Start Date: 05/21/18 Stop Date: 05/24/18 Status: Discontinued melatonin 1 mg, 1 mL, Route: PO, Drug form: LIQ, ONCE, Dosing Weight 56.818, kg, Start marcus e: 05/21/18 23:43:00 CDT, Stop date: 05/21/18 23:43:00 CDT Start Date: 05/21/18 Stop Date: 05/22/18 Status: Completed MiraLax 17 gm, 1 pkt, Route: PO, Drug form: PWDR, Daily, Dosing Weight 56.818, kg, Start date: 05/19/18 21:18:00 CDT, Duration: 30 day, Stop date: 06/18/18 9:00:00 CDT Notes: Dissolve in 8 oz of water or juice.(Same as: Miralax) Start Date: 05/19/18 Stop Date: 05/24/18 Status: Discontinued mirtazapine 30 mg, 1 tab, Route: PO, Drug form: TAB, Bedtime, Dosing Weight 56.818, kg, Star t date: 05/19/18 21:00:00 CDT, Duration: 30 day, Stop date: 06/17/18 21:00:00 CD T Notes: (Same as:Remeron) Start Date: 05/19/18 Stop Date: 05/24/18 Status: Discontinued morphine 1 mg/ml CERTIFIED FORKLIFT OPERATOR (30 mg/30 mL) INJ Syringe 30 mg 30 mg, 30 mL, Route: IV, Initial Loading Dose: 2 mg, CERTIFIED FORKLIFT OPERATOR Dose: 1 mg, CERTIFIED FORKLIFT OPERATOR Lockou t: 15 minutes, Continuous Basal Rate: 1 mg, 4 Hour Limit (In MG): 16, Drug Form: INJ, Continuous, Start date: 05/21/18 9:35:00 CDT, Duration: 30 day, Stop date: 06/20/18 9... Notes: Dose: Delay: Basal rate: 4hr limit:( Same as:Monsei-Kelly) Start Date: 05/21/18 Stop Date: 05/23/18 Status: Discontinued morphine 1 mg/ml CERTIFIED FORKLIFT OPERATOR (30 mg/30 mL) INJ Syringe 30 mg 30 mg, 30 mL, Route: IV, Initial Loading Dose: 2 mg, CERTIFIED FORKLIFT OPERATOR Dose: 1 mg, CERTIFIED FORKLIFT OPERATOR Lockou t: 10 minutes, Continuous Basal Rate: 1 mg, 4 Hour Limit (In MG): 30, Drug Form: INJ, Continuous, Start date: 05/19/18 15:16:00 CDT, Duration: 30 day, Stop date: 06/18/18... Notes: Dose: Delay: Basal rate: 4hr limit:( Same as:Rapi-Jedavid) Start Date: 05/19/18 Stop Date: 05/21/18 Status: Discontinued morphine 1 mg/ml CERTIFIED FORKLIFT OPERATOR (30 mg/30 mL) INJ Syringe 30 mg 30 mg, 30 mL, Route: IV, Initial Loading Dose: 2 mg, CERTIFIED FORKLIFT OPERATOR Dose: 1 mg, CERTIFIED FORKLIFT OPERATOR Lockou t: 10 minutes, Continuous Basal Rate: 1 mg, 4 Hour Limit (In MG): 22, Drug Form: INJ, Continuous, Start date: 05/19/18 14:22:00 CDT, Duration: 30 day, Stop date: 06/18/18... Notes: Dose: Delay: Basal rate: 4hr limit:( Same as:Rapi-Ject) Start Date: 05/19/18 Stop Date: 05/19/18 Status: Discontinued morphine 15 mg oral tablet, immediate release 15 mg, 1 tab, Route: PO, Drug form: TAB, Q4H, Dosing Weight 56.818, kg, Start da te: 05/22/18 20:00:00 CDT, Duration: 30 day, Stop date: 06/21/18 16:00:00 CDT Notes: (Same as:MORPhine Sulfate) Start Date: 05/22/18 Stop Date: 05/23/18 Status: Discontinued morphine 15 mg oral tablet, immediate release 15 mg, 1 tab, Route: PO, Drug form: TAB, Q6H, Dosing Weight 56.818, kg, Start da te: 05/19/18 0:00:00 CDT, Duration: 30 day, Stop date: 06/17/18 18:00:00 CDT Notes: (Same as:MORPhine Sulfate) Start Date: 05/19/18 Stop Date: 05/19/18 Status: Discontinued morphine 15 mg oral tablet, immediate release 15 mg, 1 tab, Route: PO, Drug form: TAB, Q4H, Dosing Weight 56.818, kg, PRN Pain Score 7-10, Start date: 05/23/18 9:18:00 CDT, Duration: 30 day, Stop date: 05/25 11/09 9:17:00 CDT Notes: (Same as:MORPhine Sulfate) Start Date: 05/23/18 Stop Date: 05/24/18 Status: Discontinued morphine Sulfate 30 mg, 1 tab, Route: PO, Drug form: ERTAB, Q12H, Dosing Weight 56.818, kg, Start date: 05/23/18 13:00:00 CDT, Duration: 30 day, Stop date: 06/22/18 9:00:00 CDT Notes: Do not crush (Same as:Oramorph SR, MS Contin) Start Date: 05/23/18 Stop Date: 05/24/18 Status: Discontinued morphine Sulfate 2 mg, 0.5 mL, Route: IV, Drug form: SOLN, Q3H, Dosing Weight 56.818, kg, PRN Ksenia n Score 7-10, Start date: 05/18/18 23:00:00 CDT, Duration: 30 day, Stop date: 20:00:00 CDT Notes: (Same as:MORPhine Sulfate) Start Date: 05/18/18 Stop Date: 05/19/18 Status: Discontinued MS Contin 30 mg, 1 tab, Route: PO, Drug form: ERTAB, Q24H, Dosing Weight 56.818, kg, Start date: 05/18/18 22:00:00 CDT, Duration: 30 day, Stop date: 06/16/18 22:00:00 CDT Notes: Do not crush (Same as:Oramorph SR, MS Contin) Start Date: 05/18/18 Stop Date: 05/19/18 Status: Discontinued naloxone 0.04 mg, 0.1 mL, Route: IVP, Drug form: INJ, Q2MIN, Dosing Weight 56.818, kg, WI N Narcotic Reversal, Start date: 05/19/18 14:22:00 CDT, Duration: 30 day, Stop d ate: 06/18/18 14:21:00 CDT Notes: Same as Narcan Start Date: 05/19/18 Stop Date: 05/24/18 Status: Discontinued [place] 10/325 oral tablet 1 tab, Route: PO, Drug Form: TAB, Dosing Weight 56.818, kg, Q6H, PRN Pain Score 4-6, Start date: 05/22/18 17:38:00 CDT, Duration: 30 day, Stop date: 06/21/18 17 :37:00 CDT Notes: Do not exceed 4gm/day of acetaminophen. (Same as: [place] 325/10) Start Date: 05/22/18 Stop Date: 05/24/18 Status: Discontinued [place] 10/325 oral tablet 1 tab, Route: PO, Drug Form: TAB, Dosing Weight 56.818, kg, Q4H, PRN Pain Score 1-3, Start date: 05/19/18 14:20:00 CDT, Duration: 30 day, Stop date: 06/18/18 14 :19:00 CDT Notes: Do not exceed 4gm/day of acetaminophen. (Same as: [place] 325/10) Start Date: 05/19/18 Stop Date: 05/22/18 Status: Discontinued normal saline 0.9% IV 1,000 mL 1,000 mL, Rate: 75 ml/hr, Infuse over: 13.3 hr, Route: IV, Dosing Weight 56.818 kg, Total Volume: 1,000, Start date: 05/18/18 21:21:00 CDT, Duration: 30 day, St op date: 06/17/18 21:20:00 CDT, 1.61, m2 Start Date: 05/18/18 Stop Date: 05/20/18 Status: Discontinued ondansetron 4 mg, 2 mL, Route: IVP, Drug form: INJ, Q6H, Dosing Weight 56.818, kg, PRN Nause a & Vomiting, Start date: 05/18/18 20:19:00 CDT, Duration: 30 day, Stop date: 06/17/18 20:18:00 CDT Notes: (Same as: Zofran) MEDICATION WASTE Product Size: 4 mgProduct Was kallie: ___ mg Start Date: 05/18/18 Stop Date: 05/23/18 Status: Discontinued Zofran 4 mg, 1 tab, Route: PO, Drug form: TAB, Q6H, Dosing Weight 56.818, kg, PRN Nause a, Start date: 05/23/18 15:08:00 CDT, Duration: 30 day, Stop date: 06/22/18 15:0 7:00 CDT Notes: (Same as: Zofran) Start Date: 05/23/18 Stop Date: 05/24/18 Status: Discontinued Results ELECTROLYTES 1 2 3 Most recent to oldest [Reference Range]: 144 mEq/L (05/24/18 5:24 AM) 145 mEq/L (05/23/18 1:19 AM) 143 mEq/L (05/22/18 1:51 AM) Sodium Lvl [135-145 mEq/L] 4.3 mEq/L 1 (05/24/18 5:24 AM) 3.5 mEq/L (05/23/18 1:19 AM) 3.9 mEq/L (05/22/18 1:51 AM) Potassium Lvl [3.5-5.1 mEq/L] 107 mEq/L (05/24/18 5:24 AM) 106 mEq/L (05/23/18 1:19 AM) 108 mEq/L (05/22/18 1:51 AM) Chloride Lvl [95-109 mEq/L] 29 mEq/L (05/24/18 5:24 AM) 26 mEq/L (05/23/18 1:19 AM) 25 mEq/L (05/22/18 1:51 AM) CO2 [24-32 mEq/L] 12.3 mEq/L (05/24/18 5:24 AM) 16.5 mEq/L (05/23/18 1:19 AM) 13.9 mEq/L (05/22/18 1:51 AM) AGAP [10.0-20.0 mEq/L] 1Result Comment: Specimen Slightly Hemolyzed. CHEM PANEL 1 2 3 Most recent to oldest [Reference Range]: 0.31 mg/dL *LOW* (05/24/18 5:24 AM) 0.38 mg/dL *LOW* (05/23/18 1:19 AM) 0.39 mg/dL *LOW* (05/22/18 1:51 AM) Creatinine Lvl [0.50-1.40 mg/dL] 187 mL/min/1.73m2 1 *NA* (05/24/18 5:24 AM) 175 mL/min/1.73m2 2 *NA* (05/23/18 1:19 AM) 173 mL/min/1.73m2 3 *NA* (05/22/18 1:51 AM) eGFR 6 mg/dL *LOW* (05/24/18 5:24 AM) 5 mg/dL *LOW* (05/23/18 1:19 AM) 6 mg/dL *LOW* (05/22/18 1:51 AM) BUN [7-22 mg/dL] 82 mg/dL (05/24/18 5:24 AM) 65 mg/dL *LOW* (05/23/18 1:19 AM) 73 mg/dL (05/22/18 1:51 AM) Glucose Lvl [70-99 mg/dL] 8.4 mg/dL *LOW* (05/24/18 5:24 AM) 8.4 mg/dL *LOW* (05/23/18 1:19 AM) 8.4 mg/dL *LOW* (05/22/18 1:51 AM) Calcium Lvl [8.5-10.5 mg/dL] 4.9 mg/dL *HI* (05/23/18 1:19 AM) 4.0 mg/dL (05/20/18 5:47 AM) 3.1 mg/dL (05/19/18 2:06 AM) Phosphorus [2.5-4.5 mg/dL] 2.1 mg/dL (05/23/18 1:19 AM) 2.0 mg/dL (05/20/18 5:47 AM) 2.2 mg/dL (05/19/18 2:06 AM) Magnesium Lvl [1.8-2.4 mg/dL] 1Result Comment: The eGFR is calculated using the [...] from the National Kid[employer] Disease Education Program ( NKDEP) which additionally recommends that when the eGFR is used in patients with extremes of body mass index for purposes of drug dosing, the eGFR should be mul tiplied by the estimated BMI. 2Result Comment: The eGFR is calculated using the [...] from the National Kid[employer] Disease Education Program ( NKDEP) which additionally recommends that when the eGFR is used in patients with extremes of body mass index for purposes of drug dosing, the eGFR should be mul tiplied by the estimated BMI. 3Result Comment: The eGFR is calculated using the [...] from the National Kidney Disease Education Program ( NKDEP) which additionally recommends that when the eGFR is used in patients with extremes of body mass index for purposes of drug dosing, the eGFR should be mul tiplied by the estimated BMI. HEMATOLOGY 1 2 3 Most recent to oldest [Reference Range]: 6.9 K/CMM (05/24/18 5:24 AM) 10.2 K/CMM (05/23/18 1:19 AM) 8.8 K/CMM (05/22/18 1:51 AM) WBC [3.7-10.4 K/CMM] 2.93 M/CMM *LOW* (05/24/18 5:24 AM) 3.05 M/CMM *LOW* (05/23/18 1:19 AM) 2.78 M/CMM *LOW* (05/22/18 1:51 AM) RBC [4.20-5.40 M/CMM] 6.9 g/dL 1 *CRIT* (05/24/18 5:24 AM) 7.1 g/dL *LOW* (05/23/18 1:19 AM) 6.4 g/dL 2 *CRIT* (05/22/18 1:51 AM) Hgb [12.0-16.0 g/dL] 21.1 % *LOW* (05/24/18 5:24 AM) 22.2 % *LOW* (05/23/18 1:19 AM) 20.3 % *LOW* (05/22/18 1:51 AM) Hct [36.0-48.0 %] 72.1 fL *LOW* (05/24/18 5:24 AM) 72.8 fL *LOW* (05/23/18 1:19 AM) 72.7 fL *LOW* (05/22/18 1:51 AM) MCV [80.0-98.0 fL] 23.5 pg *LOW* (05/24/18 5:24 AM) 23.4 pg *LOW* (05/23/18 1:19 AM) 23.2 pg *LOW* (05/22/18 1:51 AM) MCH [27.0-31.0 pg] 32.5 g/dL (05/24/18 5:24 AM) 32.2 g/dL (05/23/18:19 AM) 31.8 g/dL *LOW* (05/22/18 1:51 AM) MCHC [32.0-36.0 g/dL] 19.9 % *HI* (05/24/18 5:24 AM) 19.6 % *HI* (05/23/18:19 AM) 19.5 % *HI* (05/22/18 1:51 AM) RDW [11.5-14.5 %] 7.8 fL (05/24/18 5:24 AM) 7.9 fL (05/23/18:19 AM) 7.9 fL (05/22/18 1:51 AM) MPV [7.4-10.4 fL] 352 K/CMM (05/24/18 5:24 AM) 352 K/CMM (05/23/18:19 AM) 308 K/CMM (05/22/18 1:51 AM) Platelet [133-450 K/CMM] 46.1 % (05/24/18 5:24 AM) 51.4 % (05/23/18:19 AM) 38.8 % *LOW* (05/22/18 1:51 AM) Segs [45.0-75.0 %] 0.0 % (05/21/18 5:59 AM) 0.0 % (05/20/18 5:47 AM) Bands [0.0-11.0 %] 37.9 % (05/24/18 5:24 AM) 35.7 % (05/23/18:19 AM) 46.1 % *HI* (05/22/18 1:51 AM) Lymphocytes [20.0-40.0 %] 0.0 % (05/21/18 5:59 AM) 0.0 % (05/20/18 5:47 AM) Atypical Lymphs [<=0.0 %] 10.5 % (05/24/18 5:24 AM) 8.3 % (05/23/18:19 AM) 9.4 % (05/22/18 1:51 AM) Monocytes [2.0-12.0 %] 4.3 % *HI* (05/24/18 5:24 AM) 3.6 % (05/23/18 1:19 AM) 4.5 % *HI* (05/22/18 1:51 AM) Eosinophils [0.0-4.0 %] 1.2 % *HI* (05/24/18 5:24 AM) 1.0 % (05/23/18 1:19 AM) 1.2 % *HI* (05/22/18 1:51 AM) Basophils [0.0-1.0 %] 3.2 K/CMM (05/24/18 5:24 AM) 5.3 K/CMM (05/23/18 1:19 AM) 3.4 K/CMM (05/22/18 1:51 AM) Neutrophils # [1.5-8.1 K/CMM] 2.6 K/CMM (05/24/18 5:24 AM) 3.7 K/CMM (05/23/18 1:19 AM) 4.1 K/CMM (05/22/18 1:51 AM) Lymphocytes # [1.0-5.5 K/CMM] 0.7 K/CMM (05/24/18 5:24 AM) 0.9 K/CMM *HI* (05/23/18 1:19 AM) 0.8 K/CMM (05/22/18 1:51 AM) Monocytes # [0.0-0.8 K/CMM] 0.3 K/CMM (05/24/18 5:24 AM) 0.4 K/CMM (05/23/18 1:19 AM) 0.4 K/CMM (05/22/18 1:51 AM) Eosinophils # [0.0-0.5 K/CMM] 0.1 K/CMM (05/24/18 5:24 AM) 0.1 K/CMM (05/23/18 1:19 AM) 0.1 K/CMM (05/22/18 1:51 AM) Basophils # [0.0-0.2 K/CMM] 1+ *ABN* (05/21/18 5:59 AM) Anisocyte [None Seen] Slight *Unknown* (05/21/18 5:59 AM) Polychrom 1+ (05/21/18 5:59 AM) 1+ (05/19/18 2:06 AM) Hypochrom [None Seen] 2+ *ABN* (05/24/18 5:24 AM) 2+ *ABN* (05/23/18 1:19 AM) 2+ *ABN* (05/22/18 1:51 AM) Microcyte [None Seen] Moderate *ABN* (05/24/18 5:24 AM) Moderate *ABN* (05/21/18 5:59 AM) Moderate *ABN* (05/20/18 5:47 AM) Target Cell [None Seen] Occasional *ABN* (05/20/18 5:47 AM) Sickle Cell [None Seen] Occasional *ABN* (05/21/18 5:59 AM) HJ Body [None Seen] 1-3 per HPF (05/21/18 5:59 AM) 1-3 per HPF (05/20/18 5:47 AM) Schistocyte [None Seen] Normal (05/24/18 5:24 AM) Normal (05/21/18 5:59 AM) Plt Morph 5.0 % *HI* (05/21/18 7:43 AM) 7.1 % *HI* (05/19/18 2:06 AM) Retic Auto [0.5-1.5 %] 14.6 seconds (05/19/18 2:06 AM) PT [12.0-14.7 seconds] 1.14 (05/19/18 2:06 AM) INR [0.85-1.17] 37.4 seconds *HI* (05/19/18 2:06 AM) PTT [22.9-35.8 seconds] 1Result Comment: Critical Result(s) called to Sarah Robertson at 05/24/2018 07:[address] Read back OK. 2Result Comment: Critical Result(s) called to Barak Matos at 05/22/2018 03:43 by BOSWELL. Read back OK. Immunizations Not Given Vaccine Date Status Refusal Reason pneumococcal 13-valent vaccine 07/05/17 Not Given Patient Refuses Procedures No data available for this section Social History Social History Type Response Substance Abuse Use: None. Alcohol Past, Frequency: 1-2 times per year. Smoking Status Never smoker; Type: Cigarettes; Exposure to Tobacco Smoke None; Cigarette Smoking Last 365 Days No; Reg Smoking Cessation Counseling No entered on: 05/18/18 Assessment and Plan Extracted from: Title: Hematology Progress Note Author: John, Memoadelina Medley MSN, Date: 05/23/18 RN, BOBBY-MIA Basic Information Admit information: 22 year old woman hx of sickle/beta null thalassemia, seizures, iron overload ( ferritin 1279 ng/ml 12/2017), frequent hospitalizations for pain crisis, who has been admitted for an acute pain crisis 05/18. [place] [facility] [place]18 with dx of leukocytosis and PNA. Had one unit of blood transfusion and started abx. She is followed regularly by at [place] [facility] . .. Subjective Pain level to 6 out of 10, involving every part of body. Asking to go home soon. "I have something to do". c/o lack of financial resources for transportation and medical care. Review of Systems Constitutional: pain. Respiratory: Negative. Cardiovascular: Negative. Gastrointestinal: no appetite. Genitourinary: Negative. Musculoskeletal: pain. Integumentary: Negative. Neurologic: Negative. Psychiatric: Negative. Health Status Allergies: Allergic Reactions (All) Severity Not Documented Augmentin- Hives. Canceled/Inactive Reactions (All) Severity Not Documented Dilaudid- Augmentin and extreme memory loss. Current medications: (Selected) Inpatient Medications Ordered D5W 1/2NS 1,000 mL: 75 ml/hr, IV, Stop: 06/20/18 9:35:00 CDT DuoNeb inhalation solution: 3 mL, NEB, PRN, PRN: as needed for shortness of breath or wheezing Keppra 500 mg oral tablet: 500 mg, 1 tab, PO, BID Lovenox: 40 mg, 0.4 mL, SUB-Q, [id number] MiraLax: 17 gm, 1 pkt, PO, Daily [place] 10/325 oral tablet: 1 tab, PO, Q6H, PRN: Pain Score 1-3 docusate-senna 50 mg-8.6 mg oral tablet: 1 tab, PO, BID folic acid: 1 mg, 1 tab, PO, Daily mirtazapine: 30 mg, 1 tab, PO, Bedtime morphine 15 mg oral tablet, immediate release: 15 mg, 1 tab, PO, Q4H, PRN: Pain Score 7-10 morphine Sulfate: 30 mg, 1 tab, PO, Q12H naloxone: 0.04 mg, 0.1 mL, IVP, Q2MIN, PRN: Narcotic Reversal ondansetron: 4 mg, 2 mL, IVP, Q6H, PRN: Nausea & Vomiting Prescriptions Suspended docusate sodium 100 mg oral capsule: 100 mg, 1 cap, PO, BID, for 7 day, PRN: Constipation, 14 cap, 0 Refill(s) Documented Medications Suspended DuoNeb inhalation solution: 3 mL, NEB, PRN, PRN: Respiratory Pathway, 0 Refill(s) Keppra 500 mg oral tablet: 500 mg, 1 tab, PO, BID, 0 Refill(s) Proventil HFA 90 mcg/inh inhalation aerosol with adapter: 2 puff, INHALATION, Q4H, 0 Refill(s) acetaminophen-hydrocodone 325 mg-5 mg oral tablet: 1 tab, PO, Q4H, PRN: Pain Score 4-6, 0 Refill(s) cetirizine 5 mg oral tablet: 10 mg, 2 tab, PO, Daily, PRN: Allergies, 0 Refill(s) diphenhydrAMINE 25 mg oral tablet: 12.5 mg, 0.5 tab, PO, TID, PRN: Itching, 0 Refill(s) folic acid 1 mg oral tablet: 1 mg, 1 tab, PO, Daily, 0 Refill(s) ketOROLAC 15 mg/mL injectable solution: 15 mg, 1 mL, IVP, Q6H, PRN: Pain Score 4-6, 0 Refill(s) lactobacillus rhamnosus GG: PO, BID, 0 Refill(s) levofloxacin 750 mg/150 mL intravenous solution: 750 mg, 150 mL, IVPB, [id number], for 4 day, 0 Refill(s) mirtazapine 30 mg oral tablet: 30 mg, 1 tab, PO, Bedtime, 0 Refill(s) multivitamin with minerals Multiple Vitamins with Zinc oral capsule: 2 cap, PO, Daily, 60 cap, 0 Refill(s) normal saline inhalation solution: 0.09 gm, 10 mL, IVP, PRN, PRN: Line Flush, 0 Refill(s) normal saline inhalation solution: 0.18 gm, 20 mL, IV Central, PRN, PRN: Line Flush, 0 Refill(s) ondansetron 2 mg/mL injectable solution: 4 mg, 2 mL, IVP, Q8H, PRN: Nausea & Vomiting, 0 Refill(s) Problem list: All Problems Anxiety disorder, unspecified / SNOMED CT 2947154470 / Confirmed Cardiomegaly / SNOMED CT 30339393 / Confirmed Depression / SNOMED CT 8957960396 / Confirmed Sickle cell crisis / SNOMED CT 1036282953 / Confirmed Sickle cell disease / SNOMED CT 0573701853 / Confirmed Resolved: Anxiety and depression / SNOMED CT 134036349 Objective Meds Scheduled Meds (7):docusate-senna (docusate-senna 50 mg-8.6 mg oral tablet), enoxaparin (Lovenox), folic acid, levETIRAcetam (Keppra 500 mg oral tablet), mirtazapine, morphine Sulfate, polyethylene glycol 3350 (MiraLax) Unscheduled Meds: None PRN Meds (5):acetaminophen-hydrocodone ([place] 10/325 oral tablet), albuterol- ipratropium (DuoNeb inhalation solution), morphine Sulfate (morphine 15 mg oral tablet, immediate release), naloxone, ondansetron One Time Meds: None Continuous Infusions (1):Dextrose 5% with 0.45% NaCl IV 1,000 mL (D5W 1/2NS 1,000 mL) I&O Input/Output RecordInOutBal 08/0124hr Tot 0 0 0 07/3124hr Tot 5 0 5 VS/Measurements Vital Signs (last 24 hrs) Last Charted Temp Oral98.6 DegF (MAY 23 08:02) Heart Rate [id number] bpm (MAY 23 08:02) Resp Rate 20 BRMIN (MAY 23 08:) AHG384 mmHg (MAY 23 08:) DBP79 mmHg (MAY 23 08:) [id number] % (MAY 23 08:) Physical Exam: General: No acute distress. Pallor. Sitting in chair. Eye: sclera anicteric. HENT: Normocephalic, Oral mucosa is moist. Neck: Supple, No jugular venous distention. Respiratory: Lungs are clear to auscultation, Respirations are non-labored, Breath sounds are equal, Symmetrical chest wall expansion. Cardiovascular: Normal rate, Regular rhythm, No murmur, No gallop, Normal peripheral perfusion, No edema. Gastrointestinal: Soft, Non-distended, Normal bowel sounds. Musculoskeletal Tenderness to palpation of extremities. No deformity. Neurologic: Alert, Oriented, Normal sensory. Psychiatric: Angry. Review / Management Results review: Labs (Last four charted values) WBC 10.2(MAY 23)8.8(MAY 22)6.8(MAY 21)7.7(MAY 20) Hgb L 7.1(MAY 23)C 6.4(MAY 22)C 5.9(MAY 21)C 6.6(MAY 20) Hct L 22.2(MAY 23)L 20.3(MAY 22)C 18.3(MAY 21)L 20.7(MAY 20) Plt 352(MAY 23)308(MAY 22)235(MAY 21)226(MAY 20) Na 145(MAY 23)143(MAY 22)H 146(MAY 21)144(MAY 20) K 3.5(MAY 23)3.9(MAY 22)3.8(MAY 21)3.9(MAY 20) CO2 26(MAY 23)25(MAY 22)26(MAY 21)27(MAY 20) Cl 106(MAY 23)108(MAY 22)H 111(MAY 21)H 111(MAY 20) Cr L 0.38(MAY 23)L 0.39(MAY 22)L 0.30(MAY 21)L 0.31(MAY 20) BUN L 5(MAY 23)L 6(MAY 22)L 3(MAY 21)8(MAY 20) Glucose Random L 65(MAY 23)73(MAY 22)89(MAY 21)87(MAY 20) Mg 2.1(MAY 23)2.0(MAY 20)2.2(MAY 19) Phos H 4.9(MAY 23)4.0(MAY 20)3.1(MAY 19) Ca L 8.4(MAY 23)L 8.4(MAY 22)L 8.4(MAY 21)8.6(MAY 20) PT 14.6(MAY 19) INR 1.14(MAY 19) PTT H 37.4(MAY 19). Radiology results X-ray, Minimal residual left basilar opacity probably represents atelectasis and bibasilar chronic interstitial changes. There are no definite infiltrates or pleural effusions. There is no evidence of pneumonia. Mild diffuse chronic nonspecific interstitial changes. Borderline cardiomegaly without acute failure. Osseous changes of sickle cell disease including bony sclerosis, vertebral body endplate depressions, and more focal sclerosis involving the humeral heads. Impression and Plan Ms. Jack is a 22 year old woman with sickle cell disease, Hb sickle/beta null thalassemia, seizures, iron overload ( ferritin 1279 ng/ml 12/2017), frequent hospitalizations for pain crisis, who has been admitted for an acute pain crisis. Overnight scheduled oral morphine 15 mg q4, and scheduled oral Ireton 10 mg q6h. Off CERTIFIED FORKLIFT OPERATOR since this am. On MS contin 30 mg q12h. - H/H stable. - Patient has Rx of MS Contin #60 and MSIR #60 at the pharmacy from 05/09. - Okay to discharge in a.m. if no problem overnight - No indication for RBC transfusion today with current hemoglobin. Addendum TEACHING PHYSICIAN ADDENDUM. I saw the patient with the FIRE TECH[employer]OLOGY INSTRUCTOR Ms Lopez on 05/23/2018 and I by Billie, have reviewed the note above and agree with the history, exam findings and the plan of Asael Perez care. I personally examined the patient and planned the narcotic dosing schedule. on Spent 15 min discussing patients concerns about Narcotic and ways to get home. 05/24/2018 22:27 Extracted from: Title: Hematology Consult Note Author: Asael Wise MD Date: 05/19/18 Subjective Ms. Jack is a 22 year old woman who was trasnfered from [facility] for treatment for an acute pain crisis from her sickle cell disease. She was recently admitted to last week for treatment and her discharge was rushed to coincide with class enrollment, at Ms. aJck' request. She says that following discharge, she began having worse pain and was unable to eat or drink much. She reports that she developed a cough with some clear sputum production and had subjective fevers. She said that she presetned to where she was admitted and placed on Abx and CERTIFIED FORKLIFT OPERATOR with subjective improvement. Since her transfer to [facility] her CERTIFIED FORKLIFT OPERATOR has been discontinued and she has been having worse pain. She is asking to be placed back on the CERTIFIED FORKLIFT OPERATOR. Review of Systems Constitutional: Fever, Weakness, Fatigue, Decreased activity, No chills, No sweats. Eye: No double vision, No visual disturbances. Ear/Nose/Mouth/Throat: No nasal congestion, No sore throat. Respiratory: Shortness of breath, Cough, No hemoptysis, No wheezing. Cardiovascular: No chest pain. Gastrointestinal: No nausea, No vomiting, No diarrhea, No constipation, No abdominal pain. Genitourinary: No dysuria, No hematuria. Hematology/Lymphatics: No bruising tendency, No bleeding tendency. Endocrine: No excessive thirst, No polyuria. Immunologic: Not immunocompromised, No recurrent fevers, No recurrent infections. Musculoskeletal: Muscle pain, No decreased range of motion, No trauma. Neurologic: Alert and oriented X4, No abnormal balance, No confusion, No numbness, No tingling, No headache. Psychiatric: No anxiety, No depression. Health Status Allergies: Allergic Reactions (Selected) Severity Not Documented Augmentin- Hives. Problem list: All Problems Anxiety disorder, unspecified / SNOMED CT 3080955434 / Confirmed Cardiomegaly / SNOMED CT 22304288 / Confirmed Sickle cell crisis / SNOMED CT 4249884179 / Confirmed Depression / SNOMED CT 0159511172 / Confirmed Sickle cell disease / SNOMED CT 0653836347 / Confirmed Objective Meds Scheduled Meds (9):docusate-senna (docusate-senna 50 mg-8.6 mg oral tablet), folic acid, ketOROLAC, levETIRAcetam (Keppra 500 mg oral tablet), levofloxacin, mirtazapine, morphine Sulfate (MS Contin), morphine Sulfate (morphine 15 mg oral tablet, immediate release), polyethylene glycol 3350 (MiraLax) Unscheduled Meds: None PRN Meds (5):acetaminophen-hydrocodone (Ireton 10/325 oral tablet), albuterol- ipratropium (DuoNeb inhalation solution), morphine Sulfate, naloxone, ondansetron One Time Meds: None Continuous Infusions (2):Sodium Chloride 0.9% IV 1,000 mL (normal saline 0.9% IV 1,000 mL), morphine Sulfate 30 mg (morphine 1 mg/ml CERTIFIED FORKLIFT OPERATOR (30 mg/30 mL) INJ Syringe 30 mg) I&O Input/Output RecordInOutBal 04/2824hr Tot 3 0 3 04/2724hr Tot 756 0 756 VS/Measurements Measurements from flowsheet : Measurements 05/18/2018 20:16 Heparin Dosing Weight (kg) 56.82 05/18/2018 20:15 Height 162.56 cm Height Collection Method Measured Weight 56.818 kg Dosing Weight Difference Percent -13.868 % Dosing Wt Entered is <10% of Previous Wt Confirmed Dosing Weight Collection Method Measured Body Surface Area 1.6018 m2 Body Mass Index 21.5 m2 05/18/2018 05:06 Weight Collection Method Measured Current Weight 66.42 kg Weight Difference Percent 0.688 % , Vital Signs (last 24 hrs) Last Charted Temp Oral98.3 DegF (MAY 19 11:51) Heart Rate Bvyookemrh66 bpm (MAY 19 11:51) Resp Rate 18 BRMIN (MAY 19 11:) UBB855 mmHg (MAY 19 11:51) DBP68 mmHg (MAY 19 11:51) IzC4221 % (MAY 19 11:51) Quzwfu84.818 kg (MAY 18 20:15) Ccumzx834.56 cm (MAY 18 20:15) BMI21.5 (MAY 18 20:15) General: Alert and oriented, Moderate distress. Eye: Pupils are equal, round and reactive to light, Extraocular movements are intact. HENT: Normocephalic, Oral mucosa is moist, No pharyngeal erythema. Neck: Supple, No jugular venous distention. Respiratory: Lungs are clear to auscultation, Respirations are non-labored, Breath sounds are equal, Symmetrical chest wall expansion. Cardiovascular: Normal rate, Regular rhythm, No murmur, No gallop, Normal peripheral perfusion, No edema. Gastrointestinal: Soft, Non-tender, Non-distended, Normal bowel sounds. Musculoskeletal Normal range of motion. No swelling. No deformity. Neurologic: Alert, Oriented, Normal sensory. Psychiatric: Cooperative, Appropriate mood & affect. Review / Management Results review: Labs (Last four charted values) WBC 8.3(MAY 19) Hgb C 6.2(MAY 19) Hct C 19.2(MAY 19) Plt 199(MAY 19) Na 143(MAY 19) K 3.9(MAY 19) CO2 26(MAY 19) Cl H 111(MAY 19) Cr L 0.36(MAY 19) BUN L 6(MAY 19) Glucose Random 80(MAY 19) Mg 2.2(MAY 19) Phos 3.1(MAY 19) Ca L 8.1(MAY 19) PT 14.6(MAY 19) INR 1.14(MAY 19) PTT H 37.4(MAY 19). Impression and Plan Ms. Jack is a 22 year old woman with sickle cell disease who is being admitted for an acute pain crisis. While she does have opacities on CXR, her clinical picture is not consistent with Acute chest syndrome but she can be continued to her current antibiotics to completion of a full course. #Acute pain crisis - She should be placed back on the CERTIFIED FORKLIFT OPERATOR - Morphine 1 mg/Hr continuous and 1 mg Q20 min with a 22 mg max in 4 hours - settings from last admission - Stop long acting opiates in the setting of CERTIFIED FORKLIFT OPERATOR - Toradol 15 mg Q8H scheduled for 48 hours then Ibuprofen - Ireton 10/325 mg Q6H for breakthrough pain - Half normal saline at 75 cc/hr - Continue Folic Acid - Bowel regiment given opiate use Nicholas Lee MD Internal Medicine PGY-3 Hematology Consult Service TEACHING PHYSICIAN ADDENDUM. I saw and personally examined the patient with the Resident, Dr. Lee on 05/19/2018 and I have reviewed the note above and agree with the history, exam findings and the plan of care. Addendum Line crossed out in Impression and plan. by Asael Wise MD on 05/19/2018 20:04 Extracted from: Title: Team D History and Physical Author: Alexandrea Dyson MD Date: 05/18/18 22 yo F w/ a h/o SCD and seizure presents from OSH for generalizedpain throughout her bodysince 05.14.2018 where she was treated for a possible a pneumonia vs acute chest syndrome. Pt is being managed for her sickle cell crisis with her home pain regimen. 1.Community acquired pneumonia vs Acute chest syndrome -Transferred from [facility] for continuity of care regarding her sickle cell crisis -At OSH, pt was febrile with 100.1 and WBC 25, strep pneumo antigen +ve - CXR on admission showed atelectasis and bibasilar chronic interstitial changes -Pt is continuing her levofloxain 750 mg for pneumonia dx at previous hospital (day 2) 2.Sickle cell crisis -multiple admissions in the past for sickle cell crisis -Transferred from [facility] for continuity of care regarding her sickle cell crisis -Pt HDS stable, WBC 7.2, Hgb 6.8,LDH 391,temp 98.8, BP 115/72 - CXR on admission showed atelectasis and bibasilar chronic interstitial changes -Pt is continuing her levofloxain 750 mg for pneumonia dx at previous hospital (day 2) -Pain 01/30, pain regimen as follows: MS contin 30mg q24h, morphine IV 2mg q3h, morphine sulfate immediate [id number] mg q6h, toradol 15 mg q6h -Complains of continued pain and "demands CERTIFIED FORKLIFT OPERATOR pump" -Hematology consulted, appreciate recs 3.Constipation -Last bowel movement monday -Pt on docusate senna and miralax -Most likely secondary to her opoid regimen for her SCC 4.Sickle cell disease -HBSS sickle cell disease -Last admission on 05/06/2018 -Hgb dropped to 6.2 this am. Did not transfuse -Pt increased her NC from 1 L to 3L herself -Pt started on folic acid 1 mg 5.Seizure disorder -Continue keppra 500 mg PO BID SCDs Pending clinical improvement TEACHING ATTENDING ATTESTATION STATEMENT: I have seen and examined patient and discussed the findings on this patient in detail with the team at bedside. I have reviewed the clinical data and note above and I agree with the findings and plan of care as outlined by . She is clinically improving and will continue oral antibiotics for now
--- OUTSIDE RECORDS SUMMARY | 2019-03-11 17:21 | XMS REPORT | Summary of Care ---
Author Author [facility] Organization [facility] Address Unknown Phone Unavailable Encounter GINGER Hobbs(ARSENIO) [id number] Date(s): 05/07/17 - 05/15/17 [facility] [address] [facility] provided by [facility] [employer] [facility], [place] [address]- Discharge Disposition: Home or Self Care Attending Physician: Jeana Kimball MD Admitting Physician: Hoda Nino MD Vital Signs 1 2 3 Most recent to oldest [Reference Range]: 162.56 cm (05/07/17 6:05 PM) 162.56 cm (05/07/17 5:15 AM) Height 98.4 DegF (05/15/17 3:20 PM) 98.4 DegF (05/15/17 11:40 AM) 97.7 DegF (05/15/17 7:15 AM) Temperature Oral [96.4-99.1 DegF] 116/60 mmHg (05/15/17 3:20 PM) 98/53 mmHg (05/15/17 11:40 AM) 107/51 mmHg (05/15/17 7:15 AM) Blood Pressure [90-140/60-90 mmHg] 18 BRMIN (05/15/17 3:20 PM) 18 BRMIN (05/15/17 11:40 AM) 18 BRMIN (05/15/17 7:15 AM) Respiratory Rate [14-20 BRMIN] 111 bpm *HI* (05/15/17 3:20 PM) 80 bpm (05/15/17 11:40 AM) 84 bpm (05/15/17 7:15 AM) Peripheral Pulse Rate [60-100 bpm] 54.545 kg (05/07/17 6:05 PM) 54.545 kg (05/07/17 5:15 AM) Weight 20.64 m2 (05/07/17 6:05 PM) 20.64 m2 (05/07/17 5:15 AM) Body Mass Index Problem List Condition Effective Dates Status Health Status Informant Anxiety disorder, Active unspecified(Confirme d) Cardiomegaly(Confirm Active ed) Sickle cell Active crisis(Confirmed) Depression(Confirmed Active ) Allergies, Adverse Reactions, Alerts Substance Reaction Severity Status Augmentin hives Active Dilaudid extreme memory loss Active Medications acetaminophen 1,000 mg, 2 tab, Route: PO, Drug form: TAB, Q6H, Dosing Weight 54.545, kg, PRN P ain Score 7-10, Start date: 05/07/17 15:33:00 CDT, Duration: 30 day, Stop date: 06/06/17 15:32:00 CDT Notes: Max acetaminophen 4000 mg/day (4 gm/day). (Same as: Tylenol Extra Streng th) Start Date: 05/07/17 Stop Date: 05/07/17 Status: Discontinued ALPRAZOLam 0.25 mg oral tablet 0.25 mg=1 tab, PO, Daily, # 30 tab, 0 Refill(s) Start Date: 05/11/17 Stop Date: 05/15/17 Status: Discontinued Ambien 5 mg, 1 tab, Route: PO, Drug form: TAB, ONCE, Dosing Weight 54.545, kg, Start da te: 05/09/17 20:50:00 CDT, Stop date: 05/09/17 20:50:00 CDT Notes: (Same As: Ambien) Start Date: 05/09/17 Stop Date: 05/09/17 Status: Completed APAP/butalbital/caffeine 1 tab, Route: PO, Drug Form: TAB, Q6H, PRN Headache 1-5, Start date: 05/09/17 9: 44:00 CDT, Duration: 30 day, Stop date: 06/08/17 9:43:00 CDT Notes: ([id number] 325-50-40mg) Do not exceed 4 gm/day o f acetaminophen. (Same as: Esgic, Fioricet) Start Date: 05/09/17 Stop Date: 05/14/17 Status: Discontinued buPROPion 150 mg, 2 tab, Route: PO, Drug form: TAB, Daily, Dosing Weight 54.545, kg, Start date: 05/08/17 9:00:00 CDT, Duration: 30 day, Stop date: 06/06/17 9:00:00 CDT Notes: (Same As: Wellbutrin) Start Date: 05/08/17 Stop Date: 05/07/17 Status: Canceled buPROPion 150 mg, PO, Daily, 0 Refill(s) Start Date: 05/07/17 Stop Date: 05/11/17 Status: Discontinued buPROPion 150 mg/24 hours (XL) oral tablet, extended release 300 mg=2 tab, PO, QAM, 0 Refill(s) Start Date: 05/11/17 Status: Ordered buPROPion 24 hour extended release 150 mg, 1 tab, Route: PO, Drug form: ERTAB, Daily, Dosing Weight 54.545, kg, Sta rt date: 05/08/17 9:00:00 CDT, Duration: 30 day, Stop date: 06/06/17 9:00:00 CDT Notes: (Same as: Wellbutrin XL)"Do Not Crush" Start Date: 05/08/17 Stop Date: 05/15/17 Status: Discontinued calcium carbonate 500 mg, 1 tab, Route: PO, Drug form: CHEWTAB, TID, Dosing Weight 54.545, kg, Sta rt date: 05/15/17 13:00:00 CDT, Duration: 1 day, Stop date: 05/16/17 9:00:00 CDT Notes: (Same As: Meliton)Calcium Carbonate 500 qw=162 mg elemental calcium Dose=_ mg calcium carbonate ( mg elemental calcium) Start Date: 05/15/17 Stop Date: 05/15/17 Status: Discontinued clindamycin 150 mg, PO, Daily, 0 Refill(s) Start Date: 05/07/17 Stop Date: 05/15/17 Status: Discontinued clonazePAM 0.25 mg, 0.5 tab, Route: PO, Drug form: TAB, ONCE, Dosing Weight 54.545, kg, Reyna ority: STAT, Start date: 05/10/17 14:28:00 CDT, Stop date: 05/10/17 14:28:00 CDT Notes: 0.25 mg=1/2 x 0.5 mg TAB(Same As: KlonoPIN) Start Date: 05/10/17 Stop Date: 05/10/17 Status: Completed docusate sodium 100 mg oral capsule 100 mg, 1 cap, Route: PO, Drug form: CAP, BID, Dosing Weight 54.545, kg, Start d ate: 05/07/17 17:00:00 CDT, Duration: 30 day, Stop date: 06/06/17 9:00:00 CDT Notes: (Same as: Colace) (Do Not Crush) Start Date: 05/07/17 Stop Date: 05/15/17 Status: Discontinued docusate-senna 50 mg-8.6 mg oral tablet 1 tab, Route: PO, Drug Form: TAB, Dosing Weight 54.545, kg, Daily, Start date: 0 05/08/17 9:00:00 CDT, Duration: 30 day, Stop date: 06/06/17 9:00:00 CDT Notes: (Same as Senokot-S) Equiv. to Nasima-Colace. Start Date: 05/08/17 Stop Date: 05/07/17 Status: Canceled DOK 100 mg oral tablet 100 mg=1 tab, PO, BID, 0 Refill(s) Start Date: 05/07/17 Stop Date: 05/15/17 Status: Discontinued Excedrin Migraine 1 tab, Route: PO, Drug Form: TAB, Dosing Weight 54.545, kg, Q6H, PRN Headache 1- 5, Start date: 05/09/17 9:15:00 CDT, Duration: 30 day, Stop date: 06/08/17 9:14: 00 CDT Start Date: 05/09/17 Stop Date: 05/09/17 Status: Deleted Flonase 0.05 mg/inh nasal spray 2 spray, Route: Each Affected Nostril, Drug Form: SPRY, Dosing Weight 54.545, kg , Daily, PRN Nasal Congestion, Start date: 05/11/17 11:39:00 CDT, Stop date: 11:38:00 CDT Notes: (Same as: Flonase) Start Date: 05/11/17 Stop Date: 05/15/17 Status: Discontinued folic acid Daily, 0 Refill(s) Start Date: 05/07/17 Stop Date: 05/07/17 Status: Discontinued folic acid 0.4 mg, 1 tab, Route: PO, Drug form: TAB, Daily, Dosing Weight 54.545, kg, Start date: 05/08/17 9:00:00 CDT, Duration: 30 day, Stop date: 06/06/17 9:00:00 CDT Start Date: 05/08/17 Stop Date: 05/07/17 Status: Canceled folic acid 1 mg, Route: PO, Drug form: TAB, QID, Dosing Weight 54.545, kg, Start date: 04/22 04/08 17:00:00 CDT, Duration: 30 day, Stop date: 06/06/17 13:00:00 CDT Start Date: 05/07/17 Stop Date: 05/07/17 Status: Deleted folic acid 1 mg oral tablet 1 mg, 1 tab, Route: PO, Drug form: TAB, Daily, Start date: 05/07/17 19:50:00 CDT , Duration: 30 day, Stop date: 06/06/17 9:00:00 CDT Notes: (Same as: Folvite) Start Date: 05/07/17 Stop Date: 05/15/17 Status: Discontinued folic acid 1 mg oral tablet 1 mg=1 tab, PO, QID, 0 Refill(s) Start Date: 05/07/17 Status: Ordered gabapentin 100 mg oral capsule 300 mg, 3 cap, Route: PO, Drug form: CAP, TID, Dosing Weight 54.545, kg, Start d ate: 05/07/17 17:00:00 CDT, Duration: 30 day, Stop date: 06/06/17 13:00:00 CDT Notes: (Same as: Neurontin) Start Date: 05/07/17 Stop Date: 05/15/17 Status: Discontinued hydrOXYzine 50 mg, 5 tab, Route: PO, Drug form: TAB, TID, Dosing Weight 54.545, kg, PRN Anxi ety, Start date: 05/10/17 16:45:00 CDT, Duration: 30 day, Stop date: 06/09/17 16 :44:00 CDT Notes: (Same as: Atarax) Avoid alcohol. Start Date: 05/10/17 Stop Date: 05/15/17 Status: Discontinued ibuprofen 600 mg, 1 tab, Route: PO, Drug form: TAB, Q6H, Dosing Weight 54.545, kg, Start d ate: 05/07/17 18:00:00 CDT, Duration: 30 day, Stop date: 06/06/17 12:00:00 CDT Notes: (Same as: Motrin)"Do Not Crush" Take with food. Start Date: 05/07/17 Stop Date: 05/15/17 Status: Discontinued lidocaine topical patch (5% film) 1 patch, Route: TOP, Bedtime, Drug form: FILM, Start date: 05/08/17 11:12:00 CDT , Stop date: 06/07/17 21:00:00 CDT Start Date: 05/08/17 Stop Date: 05/15/17 Status: Discontinued Lovenox 40 mg, 0.4 mL, Route: SUB-Q, Drug form: INJ, [id number], Dosing Weight 54.545, kg, Start date: 05/07/17 19:00:00 CDT, Duration: 30 day, Stop date: 06/05/17 19:00: 00 CDT Notes: (Same as: Lovenox) Start Date: 05/07/17 Stop Date: 05/15/17 Status: Discontinued methocarbamol 750 mg oral tablet 750 mg=1 tab, PO, QID, 0 Refill(s) Start Date: 05/07/17 Stop Date: 05/15/17 Status: Discontinued MiraLax 17 gm, 1 pkt, Route: PO, Drug form: PWDR, BID, Dosing Weight 54.545, kg, PRN Con stipation, Start date: 05/13/17 8:33:00 CDT, Duration: 30 day, Stop date: 8:32:00 CDT Notes: Dissolve in 8 oz of water or juice.(Same as: Miralax) Start Date: 05/13/17 Stop Date: 05/15/17 Status: Discontinued MiraLax 17 gm, 1 pkt, Route: PO, Drug form: PWDR, Daily, Dosing Weight 54.545, kg, PRN C onstipation, Start date: 05/07/17 15:35:00 CDT, Duration: 30 day, Stop date: 15:34:00 CDT Notes: Dissolve in 8 oz of water or juice.(Same as: Miralax) Start Date: 05/07/17 Stop Date: 05/13/17 Status: Discontinued morphine 15 mg oral tablet, immediate release 15 mg, 1 tab, Route: PO, Drug form: TAB, Q6H, Dosing Weight 54.545, kg, Start da te: 05/09/17 18:00:00 CDT, Duration: 30 day, Stop date: 06/08/17 12:00:00 CDT Notes: (Same as:MORPhine Sulfate) Start Date: 05/09/17 Stop Date: 05/09/17 Status: Canceled morphine 15 mg oral tablet, immediate release 15 mg=1 tab, PO, 0 Refill(s) Start Date: 05/07/17 Status: Ordered morphine extended release 30 mg, PO, Q12H, 0 Refill(s) Start Date: 05/07/17 Status: Ordered morphine Sulfate 4 mg, Route: IVP, ONCE, Dosing Weight 54.545, kg, Priority: STAT, Start date: 7:24:00 CDT, Stop date: 05/07/17 7:24:00 CDT Start Date: 05/07/17 Stop Date: 05/07/17 Status: Completed morphine Sulfate 6 mg, 1.5 mL, Route: IVP, Drug form: INJ, ONCE, Dosing Weight 54.545, kg, Priori ty: STAT, Start date: 05/07/17 11:21:00 CDT, Stop date: 05/07/17 11:21:00 CDT Notes: (Same as:MORPhine Sulfate) Start Date: 05/07/17 Stop Date: 05/07/17 Status: Completed morphine Sulfate 8 mg, 2 mL, Route: IVP, Drug form: INJ, ONCE, Dosing Weight 54.545, kg, Priority : STAT, Start date: 05/07/17 9:24:00 CDT, Stop date: 05/07/17 9:24:00 CDT Notes: (Same as:MORPhine Sulfate) Start Date: 05/07/17 Stop Date: 05/07/17 Status: Completed MORPhine sulfate HOSPICE CARE CONSULTANT 30 mg/30 ml INJ syringe 30 mg 30 mg, 30 mL, Route: IV, Initial Loading Dose: 2 mg, HOSPICE CARE CONSULTANT Dose: 2 mg, HOSPICE CARE CONSULTANT Lockou t: 10 minutes, Continuous Basal Rate: 0 mg, 4 Hour Limit (In MG): 48, Drug Form: INJ, Continuous, Start date: 05/07/17 15:30:00 CDT Notes: Dose: Delay: Basal rate: 4hr limit:( Same as:Monsei-Kelly) Start Date: 05/07/17 Stop Date: 05/15/17 Status: Discontinued MS Contin 45 mg, 3 tab, Route: PO, Drug form: ERTAB, Q8H, Dosing Weight 54.545, kg, Start date: 05/14/17 14:00:00 CDT, Duration: 30 day, Stop date: 06/13/17 6:00:00 CDT Notes: Do not crush (Same as:Oramorph SR, MS Contin) Start Date: 05/14/17 Stop Date: 05/15/17 Status: Discontinued MS Contin 30 mg, 2 tab, Route: PO, Drug form: ERTAB, Q8H, Dosing Weight 54.545, kg, Start date: 05/09/17 16:00:00 CDT, Duration: 30 day, Stop date: 06/08/17 8:00:00 CDT Notes: Do not crush (Same as:Oramorph SR, MS Contin) Start Date: 05/09/17 Stop Date: 05/15/17 Status: Discontinued MS Contin 30 mg, 2 tab, Route: PO, Drug form: ERTAB, Q12H, Dosing Weight 54.545, kg, Start date: 05/09/17 21:00:00 CDT, Duration: 30 day, Stop date: 06/08/17 9:00:00 CDT Notes: Do not crush (Same as:Oramorph SR, MS Contin) Start Date: 05/09/17 Stop Date: 05/09/17 Status: Canceled naloxone 0.04 mg, 0.1 mL, Route: IVP, Drug form: INJ, Q2MIN, Dosing Weight 54.545, kg, NM N Narcotic Reversal, Start date: 05/07/17 14:53:00 CDT, Duration: 8 hr, Stop marcus e: 05/07/17 22:52:00 CDT Notes: Same as Narcan Start Date: 05/07/17 Stop Date: 05/07/17 Status: Completed naloxone 0.04 mg, Route: IVP, Q2MIN, Dosing Weight 54.545, kg, PRN Narcotic Reversal, Sta rt date: 05/07/17 15:04:00 CDT, Duration: 30 day, Stop date: 06/06/17 15:03:00 C DT Start Date: 05/07/17 Stop Date: 05/07/17 Status: Deleted naproxen 250 mg oral tablet 250 mg=1 tab, PO, BID, 0 Refill(s) Start Date: 05/07/17 Status: Ordered [place] 10/325 oral tablet 1 tab, Route: PO, Drug Form: TAB, Dosing Weight 54.545, kg, ONCE, STAT, Start da te: 05/13/17 21:02:00 CDT, Stop date: 05/13/17 21:02:00 CDT Notes: Do not exceed 4gm/day of acetaminophen. (Same as: [place] 325/10) Start Date: 05/13/17 Stop Date: 05/13/17 Status: Completed [place] 10/325 oral tablet 1 tab, Route: PO, Drug Form: TAB, Dosing Weight 54.545, kg, Q6H, Start date: 18:00:00 CDT, Duration: 30 day, Stop date: 06/06/17 12:00:00 CDT Notes: Do not exceed 4gm/day of acetaminophen. (Same as: [place] 325/10) Start Date: 05/07/17 Stop Date: 05/15/17 Status: Discontinued [place] 10/325 oral tablet 1 tab, PO, Q6H, 0 Refill(s) Start Date: 05/07/17 Status: Ordered NS (Bolus) IV 1,000 mL, 1,000 ml/hr, Infuse Over: 1 hr, Route: IV, ONCE, Priority: STAT, Dosin g Weight 54.545 kg, Start date: 05/07/17 7:24:00 CDT, Duration: 1 doses or times , Stop date: 05/07/17 7:24:00 CDT Start Date: 05/07/17 Stop Date: 05/07/17 Status: Completed NS (Bolus) IV 1,000 mL, 1,000 ml/hr, Infuse Over: 1 hr, Route: IV, 1,000, Drug form: INJ, ONCE , Priority: NOW, Dosing Weight 54.545 kg, Start date: 05/08/17 7:33:00 CDT, Dura tion: 1 doses or times, Stop date: 05/08/17 7:33:00 CDT Start Date: 05/08/17 Stop Date: 05/08/17 Status: Completed ondansetron 4 mg, 2 mL, Route: IVP, Drug form: INJ, Q6H, Dosing Weight 54.545, kg, PRN Nause a & Vomiting, Start date: 05/07/17 13:16:00 CDT, Duration: 30 day, Stop date: 06/06/17 13:15:00 CDT Notes: (Same as: Zofran) MEDICATION WASTE Product Size: 4 mgProduct Was kallie: ___ mg Start Date: 05/07/17 Stop Date: 05/15/17 Status: Discontinued Phenergan 12.5 mg, 0.5 mL, Route: IVPB, Drug form: INJ, ONCE, Dosing Weight 54.545, kg, NM N Nausea & Vomiting, Start date: 05/13/17 13:11:00 CDT Notes: Do not give IV push. (Same as: Phenergan) Start Date: 05/13/17 Stop Date: 05/15/17 Status: Discontinued potassium chloride 40 mEq, Route: IV, ONCE, Dosing Weight 54.545, kg, Priority: NOW, Start date: 7:35:00 CDT, Stop date: 05/08/17 7:35:00 CDT Start Date: 05/08/17 Stop Date: 05/08/17 Status: Deleted potassium chloride 20 mEq, 100 mL, Route: IVPB, Drug form: INJ, Q2H, Start date: 05/08/17 9:00:00 C DT, Duration: 2 doses or times, Stop date: 05/08/17 11:00:00 CDT Notes: (Same as: KCL) Infuse no faster than 10 mEq/hr if given peripherally. Start Date: 05/08/17 Stop Date: 05/08/17 Status: Completed potassium chloride 20 mEq oral tablet, extended release 20 mEq, 1 tab, Route: PO, Drug form: ERTAB, Q12H, Dosing Weight 54.545, kg, Star t date: 05/15/17 12:30:00 CDT, Duration: 2 doses or times, Stop date: 05/15/17 2 1:00:00 CDT Notes: (Same as: K-Dur 20)"Do Not Crush" With food and full glass of water Start Date: 05/15/17 Stop Date: 05/15/17 Status: Pending Complete promethazine 12.5 mg, 1 tab, Route: PO, Drug form: TAB, ONCE, Dosing Weight 54.545, kg, PRN N ausea & Vomiting, Start date: 05/09/17 7:38:00 CDT Notes: (Same as: Phenergan) Start Date: 05/09/17 Stop Date: 05/09/17 Status: Completed remove patch 1 patch, Route: TOP, Daily, Drug form: ERFILM, Start date: 05/08/17 11:14:00 CDT , Stop date: 06/08/17 9:00:00 CDT Start Date: 05/08/17 Stop Date: 05/15/17 Status: Discontinued senna 8.6 mg oral tablet 8.6 mg, 1 tab, Route: PO, Drug Form: TAB, Dosing Weight 54.545, kg, BID, Start d ate: 05/07/17 17:00:00 CDT, Duration: 30 day, Stop date: 06/06/17 9:00:00 CDT Notes: (Same as: Senokot) Start Date: 05/07/17 Stop Date: 05/15/17 Status: Discontinued sodium chloride 0.45% 1000 ml INJ 1,000 mL 1,000 mL, Rate: 100 ml/hr, Infuse over: 10 hr, Route: IV, Dosing Weight 54.545 k g, Total Volume: 1,000, Start date: 05/08/17 9:42:00 CDT, Duration: 30 day, Stop date: 06/07/17 9:41:00 CDT Start Date: 05/08/17 Stop Date: 05/15/17 Status: Discontinued tramadol 100 mg, 2 tab, Route: PO, Drug form: TAB, Q6H, Dosing Weight 54.545, kg, PRN Ksenia n Score 7-10, Start date: 05/07/17 17:38:00 CDT, Duration: 30 day, Stop date: 17:37:00 CDT Notes: Not to exceed 400mg/day. (Same As: Ultram) Start Date: 05/07/17 Stop Date: 05/08/17 Status: Discontinued tramadol 100 mg, 2 tab, Route: PO, Drug form: TAB, Q6H, Dosing Weight 54.545, kg, Start d ate: 05/08/17 12:00:00 CDT, Duration: 30 day, Stop date: 06/07/17 6:00:00 CDT Start Date: 05/08/17 Stop Date: 05/15/17 Status: Discontinued Tylenol 1,000 mg, 2 tab, Route: PO, Drug form: TAB, Q6H, Dosing Weight 54.545, kg, Start date: 05/10/17 18:06:00 CDT, Duration: 30 day, Stop date: 06/09/17 18:00:00 CDT Notes: Max acetaminophen 4000 mg/day (4 gm/day). (Same as: Tylenol Extra Streng th) Start Date: 05/10/17 Stop Date: 05/15/17 Status: Discontinued Vitamin B12 50 microgram, 0.5 tab, Route: PO, Drug form: TAB, Daily, Dosing Weight 54.545, k g, Start date: 05/08/17 9:00:00 CDT, Duration: 30 day, Stop date: 06/06/17 9:00: 00 CDT Notes: (Same As: Vitamin B12) Start Date: 05/08/17 Stop Date: 05/15/17 Status: Discontinued Vitamin B12 0 Refill(s) Start Date: 05/07/17 Status: Ordered Zofran 4 mg, Route: IVP, Drug form: INJ, ONCE, Dosing Weight 54.545, kg, Priority: STAT , Start date: 05/07/17 7:24:00 CDT, Stop date: 05/07/17 7:24:00 CDT Start Date: 05/07/17 Stop Date: 05/07/17 Status: Completed Zofran 4 mg oral tablet 4 mg=1 tab, PO, Q8H, 0 Refill(s) Start Date: 05/07/17 Stop Date: 05/15/17 Status: Discontinued Results ELECTROLYTES 1 2 3 Most recent to oldest [Reference Range]: 142 mEq/L (05/15/17 4:16 AM) 141 mEq/L (05/14/17 5:39 AM) 141 mEq/L (05/13/17 6:18 AM) Sodium Lvl [135-145 mEq/L] 3.4 mEq/L *LOW* (05/15/17 4:16 AM) 4.0 mEq/L (05/14/17 5:39 AM) 4.1 mEq/L (05/13/17 6:18 AM) Potassium Lvl [3.5-5.1 mEq/L] 109 mEq/L (05/15/17 4:16 AM) 108 mEq/L (05/14/17 5:39 AM) 110 mEq/L *HI* (05/13/17 6:18 AM) Chloride Lvl [95-109 mEq/L] 29 mEq/L (05/15/17 4:16 AM) 28 mEq/L (05/14/17 5:39 AM) 27 mEq/L (05/13/17 6:18 AM) CO2 [24-32 mEq/L] 7.4 mEq/L *LOW* (05/15/17 4:16 AM) 9.0 mEq/L *LOW* (05/14/17 5:39 AM) 8.1 mEq/L *LOW* (05/13/17 6:18 AM) AGAP [10.0-20.0 mEq/L] CHEM PANEL 1 2 3 Most recent to oldest [Reference Range]: 0.41 mg/dL *LOW* (05/15/17 4:16 AM) 0.43 mg/dL *LOW* (05/14/17 5:39 AM) 0.43 mg/dL *LOW* (05/13/17 6:18 AM) Creatinine Lvl [0.50-1.40 mg/dL] 172 mL/min/1.73m2 1 *NA* (05/15/17 4:16 AM) 169 mL/min/1.73m2 2 *NA* (05/14/17 5:39 AM) 170 mL/min/1.73m2 3 *NA* (05/13/17 6:18 AM) eGFR 3 mg/dL *LOW* (05/15/17 4:16 AM) 3 mg/dL *LOW* (05/14/17 5:39 AM) 6 mg/dL *LOW* (05/13/17 6:18 AM) BUN [7-22 mg/dL] 95 mg/dL (05/15/17 4:16 AM) 76 mg/dL (05/14/17 5:39 AM) 78 mg/dL (05/13/17 6:18 AM) Glucose Lvl [70-99 mg/dL] 6.1 g/dL *LOW* (05/15/17 4:16 AM) 6.2 g/dL *LOW* (05/14/17 5:39 AM) 6.0 g/dL *LOW* (05/13/17 6:18 AM) Total Protein [6.4-8.4 g/dL] 3.5 g/dL (05/15/17 4:16 AM) 3.6 g/dL (05/14/17 5:39 AM) 3.5 g/dL (05/13/17 6:18 AM) Albumin Lvl [3.5-5.0 g/dL] 2.6 g/dL *LOW* (05/15/17 4:16 AM) 2.6 g/dL *LOW* (05/14/17 5:39 AM) 2.5 g/dL *LOW* (05/13/17 6:18 AM) Globulin [2.7-4.2 g/dL] 1.3 (05/15/17 4:16 AM) 1.4 (05/14/17 5:39 AM) 1.4 (05/13/17 6:18 AM) A/G Ratio [0.7-1.6] 7.8 mg/dL *LOW* (05/15/17 4:16 AM) 8.2 mg/dL *LOW* (05/14/17 5:39 AM) 8.4 mg/dL *LOW* (05/13/17 6:18 AM) Calcium Lvl [8.5-10.5 mg/dL] 3.4 mg/dL (05/15/17 4:16 AM) 4.1 mg/dL (05/14/17 5:39 AM) 4.0 mg/dL (05/13/17 6:18 AM) Phosphorus [2.5-4.5 mg/dL] 1.9 mg/dL (05/15/17 4:16 AM) 2.2 mg/dL (05/14/17 5:39 AM) 2.2 mg/dL (05/13/17 6:18 AM) Magnesium Lvl [1.8-2.4 mg/dL] 13 unit/L (05/15/17 4:16 AM) 14 unit/L (05/14/17 5:39 AM) 15 unit/L (05/13/17 6:18 AM) ALT [0-65 unit/L] 17 unit/L (05/15/17 4:16 AM) 19 unit/L (05/14/17 5:39 AM) 20 unit/L (05/13/17 6:18 AM) AST [0-37 unit/L] 74 unit/L (05/15/17 4:16 AM) 67 unit/L (05/14/17 5:39 AM) 64 unit/L (05/13/17 6:18 AM) Alk Phos [39-136 unit/L] 348 unit/L *HI* (05/15/17 4:16 AM) 444 unit/L *HI* (05/12/17 2:54 PM) LDH [98-192 unit/L] 0.7 mg/dL (05/15/17 4:16 AM) 0.8 mg/dL (05/14/17 5:39 AM) 1.3 mg/dL (05/13/17 6:18 AM) Bili Total [0.2-1.3 mg/dL] 0.2 mg/dL (05/15/17 4:16 AM) 0.2 mg/dL (05/14/17 5:39 AM) 0.3 mg/dL (05/13/17 6:18 AM) Bili Direct [0.0-0.3 mg/dL] 0.5 mg/dL (05/15/17 4:16 AM) 0.6 mg/dL (05/14/17 5:39 AM) 1.0 mg/dL (05/13/17 6:18 AM) Bili Indirect [0.0-1.0 mg/dL] 1Result Comment: The eGFR is calculated [...] be mul tiplied by the estimated BMI. ANEMIA STUDY 1 2 3 Most recent to oldest [Reference Range]: 37 ug/dl (05/08/17 12:59 AM) Iron [30-160 ug/dl] 535 ng/mL *HI* (05/08/17 12:59 AM) Ferritin Lvl [5-204 ng/mL] 25 % (05/08/17 12:59 AM) % Satur Fe [12-57 %] 110 ug/dl (05/08/17 12:59 AM) UIBC [110-370 ug/dl] 147 ug/dl *LOW* (05/08/17 12:59 AM) TIBC [228-428 ug/dl] PARATHYROID PROFILE 1 2 3 Most recent to oldest [Reference Range]: 1.11 mMol/L (05/14/17 5:39 AM) 1.14 mMol/L (05/09/17 3:10 AM) Ca Ion WB [1.05-1.25 mMol/L] 1.10 mMol/L (05/14/17 5:39 AM) 1.11 mMol/L (05/09/17 3:10 AM) Ca Norm WB [1.05-1.25 mMol/L] URINE CHEM 1 2 3 Most recent to oldest [Reference Range]: Negative (05/07/17 10:22 AM) U Preg [Negative] HEMATOLOGY 1 2 3 Most recent to oldest [Reference Range]: 9.3 K/CMM (05/15/17 4:16 AM) 9.6 K/CMM (05/14/17 5:39 AM) 8.6 K/CMM (05/13/17 6:18 AM) WBC [3.7-10.4 K/CMM] 2.50 M/CMM *LOW* (05/15/17 4:16 AM) 2.53 M/CMM *LOW* (05/14/17 5:39 AM) 2.44 M/CMM *LOW* (05/13/17 6:18 AM) RBC [4.20-5.40 M/CMM] 7.0 g/dL 1 *CRIT* (05/15/17 1:41 PM) 5.7 g/dL 2 *CRIT* (05/15/17 4:16 AM) 5.8 g/dL 3 *CRIT* (05/14/17 5:39 AM) Hgb [12.0-16.0 g/dL] 21.4 % *LOW* (05/15/17 1:41 PM) 17.4 % *CRIT* (05/15/17 4:16 AM) 17.4 % *CRIT* (05/14/17 5:39 AM) Hct [36.0-48.0 %] 69.4 fL *LOW* (05/15/17 4:16 AM) 68.7 fL *LOW* (05/14/17 5:39 AM) 68.4 fL *LOW* (05/13/17 6:18 AM) MCV [80.0-98.0 fL] 22.7 pg *LOW* (05/15/17 4:16 AM) 22.8 pg *LOW* (05/14/17 5:39 AM) 22.4 pg *LOW* (05/13/17 6:18 AM) MCH [27.0-31.0 pg] 32.7 g/dL (05/15/17 4:16 AM) 33.2 g/dL (05/14/17 5:39 AM) 32.8 g/dL (05/13/17 6:18 AM) MCHC [32.0-36.0 g/dL] 16.6 % *HI* (05/15/17 4:16 AM) 17.1 % *HI* (05/14/17 5:39 AM) 16.7 % *HI* (05/13/17 6:18 AM) RDW [11.5-14.5 %] 265 K/CMM (05/15/17 4:16 AM) 239 K/CMM (05/14/17 5:39 AM) 219 K/CMM (05/13/17 6:18 AM) Platelet [133-450 K/CMM] 8.8 fL (05/15/17 4:16 AM) 8.6 fL (05/14/17 5:39 AM) 8.7 fL (05/13/17 6:18 AM) MPV [7.4-10.4 fL] 51.4 % (05/15/17 4:16 AM) 55.4 % (05/14/17 5:39 AM) 53.2 % (05/13/17 6:18 AM) Segs [45.0-75.0 %] 0.0 % (05/11/17 5:22 AM) 0.0 % (05/10/17 5:18 AM) 0.0 % (05/07/17 7:02 AM) Bands [0.0-11.0 %] 29.1 % (05/15/17 4:16 AM) 26.0 % (05/14/17 5:39 AM) 24.8 % (05/13/17 6:18 AM) Lymphocytes [20.0-40.0 %] 0.0 % (05/11/17 5:22 AM) 0.0 % (05/10/17 5:18 AM) 0.0 % (05/07/17 7:02 AM) Atypical Lymphs [<=0.0 %] 12.6 % *HI* (05/15/17 4:16 AM) 11.1 % (05/14/17 5:39 AM) 13.7 % *HI* (05/13/17 6:18 AM) Monocytes [2.0-12.0 %] 5.7 % *HI* (05/15/17 4:16 AM) 6.1 % *HI* (05/14/17 5:39 AM) 8.2 % *HI* (05/13/17 6:18 AM) Eosinophils [0.0-4.0 %] 1.2 % *HI* (05/15/17 4:16 AM) 1.4 % *HI* (05/14/17 5:39 AM) 1.1 % *HI* (05/13/17 6:18 AM) Basophils [0.0-1.0 %] 4.8 K/CMM (05/15/17 4:16 AM) 5.3 K/CMM (05/14/17 5:39 AM) 4.6 K/CMM (05/13/17 6:18 AM) Segs-Bands # [1.5-8.1 K/CMM] 2.7 K/CMM (05/15/17 4:16 AM) 2.5 K/CMM (05/14/17 5:39 AM) 2.2 K/CMM (05/13/17 6:18 AM) Lymphocytes # [1.0-5.5 K/CMM] 1.2 K/CMM *HI* (05/15/17 4:16 AM) 1.1 K/CMM *HI* (05/14/17 5:39 AM) 1.2 K/CMM *HI* (05/13/17 6:18 AM) Monocytes # [0.0-0.8 K/CMM] 0.5 K/CMM (05/15/17 4:16 AM) 0.6 K/CMM *HI* (05/14/17 5:39 AM) 0.7 K/CMM *HI* (05/13/17 6:18 AM) Eosinophils # [0.0-0.5 K/CMM] 0.1 K/CMM (05/15/17 4:16 AM) 0.1 K/CMM (05/14/17 5:39 AM) 0.1 K/CMM (05/13/17 6:18 AM) Basophils # [0.0-0.2 K/CMM] 3 /100WB *NA* (05/11/17 5:22 AM) 4 /100WB *NA* (05/10/17 5:18 AM) NRBC 1+ *ABN* (05/11/17 5:22 AM) 1+ *ABN* (05/10/17 5:18 AM) 1+ *ABN* (05/07/17 7:02 AM) Anisocyte [None Seen] Moderate *ABN* (05/12/17 5:47 AM) Moderate *ABN* (05/11/17 5:22 AM) Moderate *ABN* (05/10/17 5:18 AM) Polychrom [None Seen] 1+ (05/14/17 5:39 AM) 1+ (05/12/17 5:47 AM) 1+ (05/10/17 5:18 AM) Hypochrom [None Seen] 2+ *ABN* (05/15/17 4:16 AM) 3+ *NA* (05/14/17 5:39 AM) 3+ *NA* (05/13/17 6:18 AM) Microcyte [None Seen] Moderate *ABN* (05/14/17 5:39 AM) Moderate *ABN* (05/12/17 5:47 AM) Moderate *ABN* (05/11/17 5:22 AM) Target Cell [None Seen] Moderate *ABN* (05/14/17 5:39 AM) Moderate *ABN* (05/13/17 6:18 AM) Moderate *ABN* (05/12/17 5:47 AM) Tear Cell [None Seen] Slight *ABN* (05/14/17 5:39 AM) Occasional *ABN* (05/13/17 6:18 AM) Slight *ABN* (05/12/17 5:47 AM) Sickle Cell [None Seen] Occasional *ABN* (05/13/17 6:18 AM) Occasional *ABN* (05/12/17 5:47 AM) Rare *ABN* (05/09/17 3:10 AM) Spherocyte [None Seen] Slight *NA* (05/13/17 6:18 AM) Toxic Gran 1-3 per HPF (05/14/17 5:39 AM) 1-3 per HPF (05/13/17 6:18 AM) 1-3 per HPF (05/12/17 5:47 AM) Schistocyte [None Seen] Normal (05/14/17 5:39 AM) Normal (05/13/17 6:18 AM) Normal (05/12/17 5:47 AM) Plt Morph 6.1 % *HI* (05/14/17 5:39 AM) 7.5 % *HI* (05/12/17 5:47 AM) 7.6 % *HI* (05/11/17 5:22 AM) Retic Auto [0.5-1.5 %] 1Result Comment: Critical Result(s) called to raine cobb at 05/15/2017 14:35 by BP. Read back OK. 2Result Comment: Critical Result(s) called to Rito Seth at 05/15/2017 07:04 by BP. Read back OK. 3Result Comment: Critical Result(s) called to Radha Gonzalez RN_ at 05/14/2017 08:05_ by Jes_. Read back OK. Immunizations No data available for this section Procedures No data available for this section Social History Social History Type Response Substance Abuse Use: None. Alcohol Never Smoking Status Never smoker; Exposure to Tobacco Smoke None; Cigarette Smoking Last 365 Days No; Reg Smoking Cessation Counseling No Assessment and Plan Extracted from: Title: Medicine Team D Progress Author: Ping Rankin MD Date: 05/14/17 Note Assessment/Plan 21yo F with sickle cell disease, depression,anxietydisorderp/wsickle cell pain crisis, pre-syncopal events, and anxiety. Pain waxed and waned throughout stay and anxiety likely exacerbated by albuterol inhaler brought from home. Upon examination and interview today, patient in good spirits and no distress noted. Clinically, Hgb uptrend since yesterday; LFTs, Bili normalized for past 2 days. No evidence of respiratory disease by clinical exam or CXR 05/12. 1.Sickle cell pain crisis -De-escalation pain regimen: will d/c continuous rate 2 hours post-1st MS Contin dose -Start MS contin TID + on-demand morphine HOSPICE CARE CONSULTANT -cont multi-modal pain regimen: gabapentin, IBU, APAP 2.Microcytic anemia (Hgb 5.8 today; 5.5 yesterday) -consider transfusing if Hgb drops to5 and patient symptomatic 3.Anxiety disorder, unspecified (Last panic attack 04/30/2017) -Continue Hydroxyzine 50mg PRN TID per psychiatry recs 4.Depression -Cont: Wellbutrin 5.Chest pain (none today) 6.Cardiomegaly (per pt: congenital; CXR: ?cardiomegaly vs low lung volumes) - F/u as outpatient with cardiology Prophylaxis lovenox Disposition d/c home pending transition to PO pain regimen Addendum by Jigra TEACHING ATTENDING ATTESTATION STATEMENT: Jeana Higgins MD I have seen & examined this patient & discussed the findings on this patient in detail on with the team on teaching rounds. I have reviewed the note above and I agree with the 05/14/2017 findings and plan of care outlined by Dr. Rankin with the following additions/ exceptions 17:55 CDT falls asleep easily but continues to report pain. deescalate basal skilled trades teacher dose and start po. Extracted from: Title: Hematology Consultation Note Author: Abelino Pulido MD Date: 05/12/17 Impression and Plan 21yo F with sickle cell disease who presented with increased back, leg, hip pain consistent with vaso-occlusive crisis. Her pain worsened today and she developed chest pain. Hb slowly downtrending to 6.1. Heme consulted for assistance with management. Her chest pain is likely MSK and related to her VOC. No infiltrate to suggest acute chest syndrome or pneumonia, and she has not had a fever. While her pain has waxed and waned, and now slightly worse over the past couple of days, this appears to otherwise be an uncomplicated crisis. Hb at baseline is in the 7's and she is currently 6.1. Retic is stable and last bilirubin was not significant (indirect yesterday 1.5), so she does not have appear to have increased hemolysis or aplastic event. Part of the decrease is due to phlebotomy. 1. Sickle cell VOC: - recommend trending CBC, fractionated bilirubin, LDH, retic - otherwise limit blood draws - would hold on transfusion Hb 5 unless she becomes symptomatic - recommend increasing HOSPICE CARE CONSULTANT settings to morphine 3mg/hr continuous (same) and 2mg demand (from 1.5mg) - reassess pain every 4-6 hours and adjust HOSPICE CARE CONSULTANT as necessary - discontinue scheduled tylenol and start scheduled norco - continue folic acid, incentive spirometry, bowel regimen Discussed with Dr. Marroquin. Please page hematology with any questions. Abelino Pulido MD Fellow, Hematology and Oncology [facility] [place] Extracted from: Title: Team D History and Physical Author: Shai Marshall MD PHD Date: 05/07/17 Assessment/Plan Nathalie Rangel is a 21yo with PMHx of sickle cell disease, depression, cardiomegaly who presents withsickle cell pain crisis and pre-syncopal events. 1.Sickle cell pain crisis - Pain is diffuse but worse in arms and legs (wrists/ankles) bilaterally at 8/10 on exam this afternoon. - Continue pain control with morphine HOSPICE CARE CONSULTANT, gabapentin 300mg TID, ibuprofen 600mg q6hrs, and norco. Tramadol 100mg q6hr available PRN. - Continue bowel regimen, incentive spirometry, and nausea PRN - Continue to monitor clinically. Ordered: Admit/Condition, 05/07/17 13:16:00 CDT, Status: Inpatient, Acute, Expected LOS: 2 Midnights, Jeana Kimball MD, Admit MD Review/Approve Yes, Isolation: No Isolation/Standard Precautions 2.Microcytic anemia - Patient with Hgb 7.4, downtrending from 7.9 few days ago. Appears hypochromic, microcytic - likely iron deficiency anemia vs anemia of chronic disease. - Will order iron level, ferritin, and TIBC to further evaluate. - If Hgb < 7 and symptomatic, will consider transfusing pRBCs. 3.Pre-syncope Patient with history of pre-syncope events since September andx this past week. - Will order TTE to evaluate cardiac function and assess for presence of any structural abnormalities. 4.Leukocytosis - Patient with WBC of 10.5 and elevated neutrophils 77. Recent hx of tooth abscess for which patient has not completed clindamycin treatment. - Likely 2/2 tooth infection vs secondary reaction to inflammation. Will continue to monitor. 5.Depression Continue bupropion XL 150mg. 6.Cardiomegaly - Patient reports told of this condition since . Outpatient f/u with cardiology scheduled given recent history of syncope. Prophylaxis ambulation Disposition Home pending medical stability Addendum by Jigar, TEACHING ATTENDING ATTESTATION STATEMENT: Jeana Higgins MD I have seen & examined this patient & discussed the findings on this patient in detail on with the team on teaching rounds. I have reviewed the note above and I agree with the 05/07/2017 findings and plan of care outlined by Dr. Marshall 21:18 CDT
--- OUTSIDE RECORDS SUMMARY | 2019-03-11 17:21 | XMS REPORT | Summary of Care ---
Author Author [facility] Organization [facility] Address Unknown Phone Unavailable Encounter GINGER Hobbs(ARSENIO) [id number] Date(s): 05/26/17 - 06/05/[address] [facility] [id number] [place] [address]- S [phone] Discharge Disposition: Home or Self Care Attending Physician: Laci Claudio DO Admitting Physician: Laci Claudio DO Vital Signs 1 2 3 Most recent to oldest [Reference Range]: 162.56 cm (05/27/17 1:49 AM) Height 98.1 DegF (06/05/17 7:35 AM) 98.2 DegF (06/05/17 4:00 AM) 98.0 DegF (06/05/17 12:00 AM) Temperature Oral [96.4-99.1 DegF] 99/60 mmHg (06/05/17 7:35 AM) 92/45 mmHg (06/05/17 4:00 AM) 102/55 mmHg (06/05/17 12:00 AM) Blood Pressure [90-140/60-90 mmHg] 18 BRMIN (06/05/17 10:20 AM) 16 BRMIN (06/05/17 7:35 AM) 16 BRMIN (06/05/17 4:00 AM) Respiratory Rate [14-20 BRMIN] 97 bpm (06/05/17 7:35 AM) 94 bpm (06/05/17 4:00 AM) 88 bpm (06/05/17 12:00 AM) Peripheral Pulse Rate [60-100 bpm] 58.591 kg (05/27/17 1:49 AM) 56.818 kg (05/26/17 9:09 PM) Weight 22.17 m2 (05/27/17 1:49 AM) Body Mass Index Problem List Condition Effective Dates Status Health Status Informant Anxiety disorder, Active unspecified(Confirme d) Cardiomegaly(Confirm Active ed) Sickle cell Active crisis(Confirmed) Depression(Confirmed Active ) Allergies, Adverse Reactions, Alerts Substance Reaction Severity Status Augmentin hives Active Dilaudid extreme memory loss Active Medications Ativan 0.5 mg, 1 tab, Route: PO, Drug form: TAB, ONCE, Dosing Weight 58.591, kg, Start date: 05/27/17 3:50:00 CDT, Stop date: 05/27/17 3:50:00 CDT Notes: (Same as: Ativan) Start Date: 05/27/17 Stop Date: 05/27/17 Status: Completed buPROPion 150 mg, 1 tab, Route: PO, Drug form: ERTAB, Daily, Dosing Weight 56.818, kg, Sta rt date: 05/27/17 9:00:00 CDT, Duration: 30 day, Stop date: 06/25/17 9:00:00 CDT Notes: (Same as: Wellbutrin XL)"Do Not Crush" Start Date: 05/27/17 Stop Date: 06/05/17 Status: Discontinued buPROPion 150 mg/24 hours (XL) oral tablet, extended release 300 mg=2 tab, PO, QAM, # 14 tab, 0 Refill(s), Pharmacy: [facility] [id number] Start Date: 06/05/17 Stop Date: 06/12/17 Status: Ordered cholecalciferol 1,000 IntlUnit, 1 tab, Route: PO, Drug form: TAB, Daily, Dosing Weight 58.591, k g, Start date: 06/01/17 9:00:00 CDT, Duration: 30 day, Stop date: 06/30/17 9:00: 00 CDT Notes: Same as : Vitamin D3 Start Date: 06/01/17 Stop Date: 06/05/17 Status: Discontinued Colace 100 mg oral capsule 100 mg, 1 cap, Route: PO, Drug form: CAP, BID, Dosing Weight 58.591, kg, Start d ate: 05/27/17 17:00:00 CDT, Duration: 30 day, Stop date: 06/26/17 9:00:00 CDT Notes: (Same as: Colace) (Do Not Crush) Start Date: 05/27/17 Stop Date: 05/29/17 Status: Discontinued D3 1000 oral tablet 1,000 IntlUnit=1 tab, PO, Daily, 0 Refill(s) Start Date: 05/28/17 Stop Date: 06/05/17 Status: Discontinued D3 1000 oral tablet 1,000 IntlUnit=1 tab, PO, Daily, # 7 tab, 0 Refill(s), Pharmacy: [facility] [id number] Start Date: 06/05/17 Stop Date: 06/12/17 Status: Ordered D5W 1/2NS 1,000 mL 1,000 mL, Rate: 100 ml/hr, Infuse over: 10 hr, Route: IV, Dosing Weight 58.591 k g, Total Volume: 1,000, Start date: 05/28/17 8:09:00 CDT, Duration: 30 day, Stop date: 06/27/17 8:08:00 CDT Start Date: 05/28/17 Stop Date: 05/28/17 Status: Discontinued D5W 1/2NS 1,000 mL 1,000 mL, Rate: 125 ml/hr, Infuse over: 8 hr, Route: IV, Dosing Weight 58.591 kg , Total Volume: 1,000, Start date: 05/28/17 18:10:00 CDT, Duration: 30 day, Stop date: 06/27/17 18:09:00 CDT Start Date: 05/28/17 Stop Date: 05/31/17 Status: Discontinued D5W 1/4NS 1000 ml INJ 1,000 mL 1,000 mL, Rate: 125 ml/hr, Infuse over: 8 hr, Route: IV, Dosing Weight 58.591 kg , Total Volume: 1,000, Start date: 05/31/17 9:41:00 CDT, Duration: 30 day, Stop date: 06/30/17 9:40:00 CDT Start Date: 05/31/17 Stop Date: 06/05/17 Status: Discontinued docusate 100 mg, 1 cap, Route: PO, Drug form: CAP, BID, Dosing Weight 56.818, kg, Start d ate: 05/27/17 9:00:00 CDT, Duration: 30 day, Stop date: 06/25/17 17:00:00 CDT Notes: (Same as: Colace) (Do Not Crush) Start Date: 05/27/17 Stop Date: 06/05/17 Status: Discontinued docusate sodium 100 mg oral capsule 100 mg=1 cap, PO, BID, # 14 cap, 0 Refill(s), Pharmacy: [id number] Start Date: 06/05/17 Stop Date: 06/12/17 Status: Ordered doxycycline 120 mg, 0 Refill(s) Start Date: 05/28/17 Stop Date: 06/05/17 Status: Discontinued doxycycline 100 mg, 1 cap, Route: PO, Drug form: CAP, [id number], Dosing Weight 58.591, kg, Sta rt date: 06/04/17 19:00:00 CDT, Duration: 30 day, Stop date: 07/04/17 7:00:00 CD T Notes: (Same as: Vibramycin) No milk/antacids/iron. Start Date: 06/04/17 Stop Date: 06/05/17 Status: Discontinued doxycycline hyclate 100 mg oral capsule 100 mg=1 cap, PO, DAYS28G, X 7 day, # 14 cap, 0 Refill(s), Pharmacy: [facility] [id number] Start Date: 06/05/17 Stop Date: 06/12/17 Status: Ordered ferrous sulfate PO, 0 Refill(s) Start Date: 05/28/17 Stop Date: 05/28/17 Status: Discontinued folic acid 1 mg, 1 tab, Route: PO, Drug form: TAB, Daily, Dosing Weight 56.818, kg, Start d ate: 05/27/17 9:00:00 CDT, Duration: 30 day, Stop date: 06/25/17 9:00:00 CDT Notes: (Same as: Folvite) Start Date: 05/27/17 Stop Date: 06/05/17 Status: Discontinued folic acid 1 mg oral tablet 1 mg=1 tab, PO, QID, # 28 tab, 0 Refill(s), Pharmacy: [facility] [id number] Start Date: 06/05/17 Stop Date: 06/12/17 Status: Ordered gabapentin PO, 0 Refill(s) Start Date: 05/28/17 Stop Date: 06/05/17 Status: Discontinued gabapentin 300 mg oral capsule 300 mg=1 cap, PO, Q8H, # 21 cap, 0 Refill(s), Pharmacy: [id number] Start Date: 06/05/17 Stop Date: 06/12/17 Status: Ordered gabapentin 300 mg oral capsule 300 mg, 1 cap, Route: PO, Drug form: CAP, Q8H, Dosing Weight 58.591, kg, (CrCl > 60 ml/min), Start date: 05/27/17 16:00:00 CDT, Duration: 30 day, Stop date: 02/06 8:00:00 CDT Notes: (Same as: Neurontin) Start Date: 05/27/17 Stop Date: 06/05/17 Status: Discontinued ketOROLAC 15 mg, 1 mL, Route: IV, Drug form: INJ, ONCE, Dosing Weight 58.591, kg, Start da te: 05/27/17 5:36:00 CDT, Stop date: 05/27/17 5:36:00 CDT Notes: (Same as:Toradol) IV bolus must be given >15 seconds. Give IM administration slowly and deeply into the muscle. Not for use > 4 days. Start Date: 05/27/17 Stop Date: 05/27/17 Status: Completed lidocaine topical patch (5% film) 3 patch, TOP, Daily, # 21 patch, 0 Refill(s), Pharmacy: [id number] Start Date: 06/05/17 Stop Date: 06/12/17 Status: Ordered lidocaine topical patch (5% film) 3 patch, Route: TOP, Daily, Drug form: FILM, Start date: 06/04/17 9:00:00 CDT, D uration: 30 day, Stop date: 07/03/17 9:00:00 CDT Notes: (Same as: Lidoderm) Start Date: 06/04/17 Stop Date: 06/05/17 Status: Discontinued Lovenox 40 mg, 0.4 mL, Route: SUB-Q, Drug form: INJ, [id number], Dosing Weight 58.591, kg, Start date: 05/29/17 17:00:00 CDT, Duration: 30 day, Stop date: 06/27/17 17:00: 00 CDT Notes: (Same as: Lovenox) Start Date: 05/29/17 Stop Date: 06/05/17 Status: Discontinued MiraLax 17 gm, 1 pkt, Route: PO, Drug form: PWDR, Daily, Dosing Weight 58.591, kg, PRN C onstipation, Start date: 05/27/17 11:25:00 CDT, Duration: 30 day, Stop date: 02/06 11:24:00 CDT Notes: Dissolve in 8 oz of water or juice.(Same as: Miralax) Start Date: 05/27/17 Stop Date: 06/05/17 Status: Discontinued morphine 15 mg oral tablet, extended release 30 mg, 2 tab, Route: PO, Drug form: ERTAB, Q12H, Dosing Weight 58.591, kg, Start date: 06/04/17 21:00:00 CDT, Duration: 30 day, Stop date: 07/04/17 9:00:00 CDT Notes: Do not crush (Same as:Oramorph SR, MS Contin) Start Date: 06/04/17 Stop Date: 06/05/17 Status: Discontinued morphine 15 mg oral tablet, extended release 60 mg, 4 tab, Route: PO, Drug form: ERTAB, Q12H, Dosing Weight 58.591, kg, Start date: 06/05/17 21:00:00 CDT, Duration: 30 day, Stop date: 07/05/17 9:00:00 CDT Notes: Do not crush (Same as:Oramorph SR, MS Contin) Start Date: 06/05/17 Stop Date: 06/05/17 Status: Canceled morphine 15 mg oral tablet, extended release 60 mg, 4 tab, Route: PO, Drug form: ERTAB, Q12H, Dosing Weight 58.591, kg, Start date: 06/03/17 21:00:00 CDT, Duration: 30 day, Stop date: 07/03/17 9:00:00 CDT Notes: Do not crush (Same as:Oramorph SR, MS Contin) Start Date: 06/03/17 Stop Date: 06/04/17 Status: Discontinued morphine 15 mg oral tablet, extended release 30 mg, 2 tab, Route: PO, Drug form: ERTAB, Q12H, Dosing Weight 58.591, kg, Start date: 05/31/17 21:00:00 CDT, Stop date: 06/30/17 9:00:00 CDT Notes: Do not crush (Same as:Oramorph SR, MS Contin) Start Date: 05/31/17 Stop Date: 06/03/17 Status: Discontinued morphine 15 mg oral tablet, immediate release 30 mg, 2 tab, Route: PO, Drug form: TAB, Q4H, Dosing Weight 58.591, kg, PRN Pain Score 4-6, Start date: 06/05/17 10:24:00 CDT, Duration: 30 day, Stop date: 06/23 01/06 10:23:00 CDT Notes: (Same as:MORPhine Sulfate) Start Date: 06/05/17 Stop Date: 06/05/17 Status: Discontinued morphine 15 mg oral tablet, immediate release 15 mg=1 tab, PO, Q4H, PRN Pain Score 6-10, X 7 day, # 42 tab, 0 Refill(s) Start Date: 06/05/17 Stop Date: 06/12/17 Status: Ordered morphine 15 mg oral tablet, immediate release 15 mg, 1 tab, Route: PO, Drug form: TAB, Q4H, Dosing Weight 58.591, kg, PRN Pain Score 4-6, Start date: 06/01/17 8:13:00 CDT, Duration: 30 day, Stop date: 07/01 8:12:00 CDT Notes: (Same as:MORPhine Sulfate) Start Date: 06/01/17 Stop Date: 06/03/17 Status: Discontinued morphine 15 mg oral tablet, immediate release 45 mg, 3 tab, Route: PO, Drug form: TAB, Q4H, Dosing Weight 58.591, kg, PRN Pain Score 4-6, Start date: 06/03/17 14:31:00 CDT, Duration: 30 day, Stop date: 06/23 11/08 14:30:00 CDT Notes: (Same as:MORPhine Sulfate) Start Date: 06/03/17 Stop Date: 06/04/17 Status: Discontinued morphine 15 mg oral tablet, immediate release 15 mg, 1 tab, Route: PO, Drug form: TAB, Q4H, Dosing Weight 58.591, kg, PRN Pain Score 4-6, Start date: 06/04/17 9:47:00 CDT, Stop date: 07/04/17 9:46:00 CDT Notes: (Same as:MORPhine Sulfate) Start Date: 06/04/17 Stop Date: 06/05/17 Status: Discontinued morphine 30 mg/12 hr oral capsule, extended release 30 mg, PO, Q12H, # 14 cap, 0 Refill(s) Start Date: 06/05/17 Stop Date: 06/12/17 Status: Ordered morphine Sulfate 3 mg, 0.75 mL, Route: IVP, Drug form: INJ, Q4H, Dosing Weight 58.591, kg, PRN Pa in Score 7-10, Start date: 06/01/17 8:14:00 CDT, Duration: 30 day, Stop date: 8:13:00 CDT Notes: (Same as:MORPhine Sulfate) Start Date: 06/01/17 Stop Date: 06/03/17 Status: Discontinued morphine Sulfate 4 mg, 1 mL, Route: IVP, Drug form: INJ, Q4H, Dosing Weight 58.591, kg, PRN Pain Score 7-10, Start date: 06/03/17 14:32:00 CDT, Duration: 30 day, Stop date: 06/23 11/08 14:31:00 CDT Notes: (Same as:MORPhine Sulfate) Start Date: 06/03/17 Stop Date: 06/04/17 Status: Discontinued morphine Sulfate 2 mg, Route: IVP, Q4H, Dosing Weight 58.591, kg, PRN Pain Score 7-10, Start date : 06/01/17 8:13:00 CDT, Duration: 30 day, Stop date: 07/01/17 8:12:00 CDT Start Date: 06/01/17 Stop Date: 06/01/17 Status: Discontinued morphine Sulfate 3 mg, 1.5 mL, Route: IV, Drug form: SOLN, Q3H, Dosing Weight 58.591, kg, PRN Ksenia n Score 7-10, Start date: 06/05/17 10:43:00 CDT, Duration: 30 day, Stop date: 10:42:00 CDT Start Date: 06/05/17 Stop Date: 06/05/17 Status: Discontinued morphine Sulfate 4 mg, 1 mL, Route: IVP, Drug form: INJ, ONCE, Dosing Weight 58.591, kg, Start da te: 05/27/17 10:40:00 CDT, Stop date: 05/27/17 10:40:00 CDT Notes: (Same as:MORPhine Sulfate) Start Date: 05/27/17 Stop Date: 05/27/17 Status: Completed morphine Sulfate 8 mg, 2 mL, Route: IVP, Drug form: INJ, ONCE, Dosing Weight 56.818, kg, Priority : STAT, Start date: 05/26/17 21:47:00 CDT, Stop date: 05/26/17 21:47:00 CDT Notes: (Same as:MORPhine Sulfate) Start Date: 05/26/17 Stop Date: 05/26/17 Status: Completed morphine Sulfate 1 mg, 0.5 mL, Route: IV, Drug form: SOLN, ONCE, Dosing Weight 58.591, kg, Start date: 06/03/17 1:32:00 CDT, Stop date: 06/03/17 1:32:00 CDT Start Date: 06/03/17 Stop Date: 06/03/17 Status: Completed morphine Sulfate 6 mg, Route: IVP, ONCE, Dosing Weight 56.818, kg, Priority: STAT, Start date: 23:36:00 CDT, Stop date: 05/26/17 23:36:00 CDT Start Date: 05/26/17 Stop Date: 05/26/17 Status: Completed morphine Sulfate 3 mg, 0.75 mL, Route: IVP, Drug form: INJ, ONCE, Dosing Weight 58.591, kg, Prior ity: NOW, Start date: 06/02/17 15:09:00 CDT, Stop date: 06/02/17 15:09:00 CDT Notes: (Same as:MORPhine Sulfate) Start Date: 06/02/17 Stop Date: 06/02/17 Status: Completed morphine Sulfate 2 mg, 1 mL, Route: IVP, Drug form: SOLN, ONCE, Dosing Weight 58.591, kg, Start d ate: 06/03/17 14:31:00 CDT, Stop date: 06/03/17 14:31:00 CDT Start Date: 06/03/17 Stop Date: 06/03/17 Status: Completed morphine Sulfate 5 mg, 1.25 mL, Route: IVP, Drug form: INJ, Q4H, Dosing Weight 58.591, kg, PRN Pa in Score 7-10, Start date: 05/27/17 18:28:00 CDT, Duration: 30 day, Stop date: 0 06/26/17 18:27:00 CDT Notes: (Same as:MORPhine Sulfate) Start Date: 05/27/17 Stop Date: 05/31/17 Status: Discontinued morphine Sulfate 30 mg 30 mg, 30 mL, Route: IV, Initial Loading Dose: 2 mg, STRIP POLISHER Dose: 1.5 mg, STRIP POLISHER Lock out: 8 minutes, Continuous Basal Rate: 3 mg, 4 Hour Limit (In MG): 30, Continuou s, Start date: 06/04/17 10:00:00 CDT, Duration: 30 day, Stop date: 07/04/17 9:59 :00 CDT Start Date: 06/04/17 Stop Date: 06/04/17 Status: Discontinued MORPhine sulfate STRIP POLISHER 30 mg/30 ml INJ syringe 30 mg 30 mg, 30 mL, Route: IV, Initial Loading Dose: 2 mg, STRIP POLISHER Dose: 1.5 mg, STRIP POLISHER Lock out: 8 minutes, Continuous Basal Rate: 3 mg, 4 Hour Limit (In MG): 30, Drug Form : INJ, Continuous, Start date: 05/27/17 1:00:00 CDT Notes: Dose: Delay: Basal rate: 4hr limit:( Same as:Cristin-Kelly) Start Date: 05/27/17 Stop Date: 05/27/17 Status: Discontinued MORPhine sulfate STRIP POLISHER 30 mg/30 ml INJ syringe 30 mg 30 mL, Route: IV, Initial Loading Dose: 2 mg, STRIP POLISHER Dose: 3 mg, STRIP POLISHER Lockout: 8 mi nutes, Continuous Basal Rate: 1.5 mg, 4 Hour Limit (In MG): 30, Drug Form: INJ, Continuous, Start date: 05/27/17 19:00:00 CDT Start Date: 05/27/17 Stop Date: 05/27/17 Status: Canceled MORPhine sulfate STRIP POLISHER 30 mg/30 ml INJ syringe 30 mg 30 mg, 30 mL, Route: IV, Initial Loading Dose: 2 mg, STRIP POLISHER Dose: 2 mg, STRIP POLISHER Lockou t: 8 minutes, Continuous Basal Rate: 2 mg, 4 Hour Limit (In MG): 30, Drug Form: INJ, Continuous, Start date: 05/30/17 13:30:00 CDT Notes: Dose: Delay: Basal rate: 4hr limit:( Same as:Berna) Start Date: 05/30/17 Stop Date: 06/01/17 Status: Discontinued MORPhine sulfate STRIP POLISHER 30 mg/30 ml INJ syringe 30 mg 30 mg, 30 mL, Route: IV, Initial Loading Dose: 2 mg, STRIP POLISHER Dose: 1.5 mg, STRIP POLISHER Lock out: 8 minutes, Continuous Basal Rate: 3 mg, 4 Hour Limit (In MG): 30, Drug Form : INJ, Continuous, Start date: 06/04/17 10:30:00 CDT, Duration: 30 day, Stop marcus e: 07/04/17... Notes: Dose: Delay: Basal rate: 4hr limit:( Same as:Berna) Start Date: 06/04/17 Stop Date: 06/05/17 Status: Discontinued MORPhine sulfate STRIP POLISHER 30 mg/30 ml INJ syringe 30 mg 30 mg, 30 mL, Route: IV, Initial Loading Dose: 2 mg, STRIP POLISHER Dose: 2 mg, STRIP POLISHER Lockou t: 8 minutes, Continuous Basal Rate: 3 mg, 4 Hour Limit (In MG): 40, Drug Form: INJ, Continuous, Start date: 05/27/17 19:00:00 CDT Notes: Dose: Delay: Basal rate: 4hr limit:( Same as:Berna) Start Date: 05/27/17 Stop Date: 05/30/17 Status: Discontinued multivitamin Daily, 0 Refill(s) Start Date: 05/28/17 Status: Ordered naloxone 0.04 mg, 0.1 mL, Route: IVP, Drug form: INJ, Q2MIN, Dosing Weight 56.818, kg, IL N Narcotic Reversal, Start date: 05/27/17 0:54:00 CDT, Duration: 30 day, Stop da te: 06/26/17 0:53:00 CDT Notes: Same as Narcan Start Date: 05/27/17 Stop Date: 06/05/17 Status: Discontinued naloxone 0.04 mg, 0.1 mL, Route: IVP, Drug form: INJ, Q2MIN, Dosing Weight 58.591, kg, IL N Narcotic Reversal, Start date: 06/04/17 9:46:00 CDT, Duration: 30 day, Stop da te: 07/04/17 9:45:00 CDT Notes: Same as Narcan Start Date: 06/04/17 Stop Date: 06/05/17 Status: Discontinued Naprosyn 500 mg, 1 tab, Route: PO, Drug form: TAB, BID, Dosing Weight 58.591, kg, Start d ate: 05/27/17 17:00:00 CDT, Duration: 30 day, Stop date: 06/26/17 9:00:00 CDT Notes: (Same as: Naprosyn) Take with food. Start Date: 05/27/17 Stop Date: 06/05/17 Status: Discontinued naproxen 250 mg oral tablet 250 mg=1 tab, PO, BID, X 7 day, # 14 tab, 0 Refill(s), Pharmacy: [facility] [id number] Start Date: 06/05/17 Stop Date: 06/12/17 Status: Ordered ondansetron 4 mg, 2 mL, Route: IVP, Drug form: INJ, Q6H, Dosing Weight 56.818, kg, PRN Nause a & Vomiting, Start date: 05/27/17 0:58:00 CDT, Duration: 30 day, Stop date: 06/26/17 0:57:00 CDT Notes: (Same as: Juan) MEDICATION WASTE Product Size: 4 mgProduct Was kallie: ___ mg Start Date: 05/27/17 Stop Date: 05/29/17 Status: Discontinued ondansetron 4 mg, 2 mL, Route: IVP, Drug form: INJ, ONCE, Dosing Weight 56.818, kg, Priority : STAT, Start date: 05/26/17 21:47:00 CDT, Stop date: 05/26/17 21:47:00 CDT Notes: (Same as: Zofran) MEDICATION WASTE Product Size: 4 mgProduct Was kallie: ___ mg Start Date: 05/26/17 Stop Date: 05/26/17 Status: Completed polyethylene glycol 3350 oral powder for reconstitution 17 gm, PO, Daily, PRN Constipation, X 7 day, # 7 ea, 0 Refill(s), Pharmacy: [facility] [id number] Start Date: 06/05/17 Stop Date: 06/12/17 Status: Ordered potassium aminobenzoate 2,000 mg, Route: PO, QID, Dosing Weight 58.591, kg, Start date: 05/28/17 21:00:0 0 CDT, Duration: 30 day, Stop date: 06/27/17 17:00:00 CDT Start Date: 05/28/17 Stop Date: 05/29/17 Status: Deleted potassium chloride 40 mEq, 30 mL, Route: PO, Drug form: LIQ, ONCE, Dosing Weight 58.591, kg, Start date: 05/27/17 3:50:00 CDT, Stop date: 05/27/17 3:50:00 CDT Notes: (Same as: Potassium Chloride) Start Date: 05/27/17 Stop Date: 05/27/17 Status: Completed potassium chloride 10 mEq, 100 mL, Route: IVPB, Drug form: INJ, Q1H, Dosing Weight 56.818, kg, Tota l Dose=40 meq, Start date: 05/27/17 2:00:00 CDT, Duration: 4 doses or times, Sto p date: 05/27/17 5:00:00 CDT, Peripheral Line Notes: Infuse at a rate of 10 mEq/hr.(Same as: KCL) Start Date: 05/27/17 Stop Date: 05/27/17 Status: Completed potassium chloride 20 mEq oral tablet, extended release 40 mEq, 2 tab, Route: PO, Drug form: ERTAB, Daily, Dosing Weight 58.591, kg, Sta rt date: 05/29/17 9:00:00 CDT, Duration: 30 day, Stop date: 06/27/17 9:00:00 CDT Notes: (Same as: K-Dur 20)"Do Not Crush" With food and full glass of water Start Date: 05/29/17 Stop Date: 06/05/17 Status: Discontinued Probiotic Formula oral capsule 1 cap, PO, Daily, 0 Refill(s) Start Date: 05/28/17 Status: Ordered Robaxin 500 mg, 1 tab, Route: PO, Drug form: TAB, TID, Dosing Weight 58.591, kg, Start d ate: 05/27/17 13:00:00 CDT, Duration: 30 day, Stop date: 06/26/17 9:00:00 CDT Notes: (Same as:Robaxin) Start Date: 05/27/17 Stop Date: 06/05/17 Status: Discontinued Robaxin 1,000 mg, 0 Refill(s) Start Date: 05/28/17 Stop Date: 06/05/17 Status: Discontinued Robaxin 500 mg oral tablet 1,000 mg, PO, TID, PRN Muscle Spasms, X 7 day, # 21 tab, 0 Refill(s), Pharmacy: [facility] [id number] Start Date: 06/05/17 Stop Date: 06/12/17 Status: Ordered Saline Flush 0.9% 10 mL, Route: IVP, Drug Form: INJ, Dosing Weight 56.818, kg, PRN, PRN Line Flush , Start date: 05/26/17 21:47:00 CDT, Duration: 30 day, Stop date: 06/25/17 21:46 :00 CDT Notes: (Same as: BD Posiflush) Start Date: 05/26/17 Stop Date: 06/05/17 Status: Discontinued Saline Flush 0.9% 10 ml, Route: IVP, Drug Form: INJ, Dosing Weight 56.818, kg, PRN, PRN Line Flush , Start date: 05/27/17 0:58:00 CDT, Duration: 30 day, Stop date: 06/26/17 0:57:0 0 CDT Notes: (Same as: BD Posiflush) Start Date: 05/27/17 Stop Date: 06/05/17 Status: Discontinued Sodium Chloride 0.9% (Bolus) IV 1,000 mL, 1000 ml/hr, Infuse Over: 1 hr, Route: IV, 1,000, Drug form: INJ, ONCE, Priority: STAT, Dosing Weight 56.818 kg, Start date: 05/26/17 21:47:00 CDT, Dur ation: 1 doses or times, Stop date: 05/26/17 21:47:00 CDT Start Date: 05/26/17 Stop Date: 05/26/17 Status: Completed sodium chloride 0.9% 1000 ml INJ 1,000 mL 1,000 mL, Rate: 150 ml/hr, Infuse over: 6.7 hr, Route: IV, Dosing Weight 56.818 kg, Total Volume: 1,000, Start date: 05/27/17 0:58:00 CDT, Duration: 30 day, Sto p date: 06/26/17 0:57:00 CDT Start Date: 05/27/17 Stop Date: 05/28/17 Status: Discontinued sodium chloride 0.9% INJ 250 mL 250 mL, Rate: 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 (Same As: Ultram) Start Date: 06/01/17 Stop Date: 06/02/17 Status: Discontinued tramadol 50 mg oral tablet 100 mg, 2 tab, Route: PO, Drug form: TAB, Q6H, Dosing Weight 58.591, kg, Start d ate: 05/27/17 12:00:00 CDT, Duration: 30 day, Stop date: 06/26/17 6:00:00 CDT, > 50 kg; Pediatric dosing Notes: Not to exceed 400mg/day. (Same As: Ultram) Start Date: 05/27/17 Stop Date: 05/31/17 Status: Discontinued Vitamin C Daily, 0 Refill(s) Start Date: 05/28/17 Stop Date: 05/28/17 Status: Discontinued Vitron-C 1 tab, PO, Q, 0 Refill(s) Start Date: 05/28/17 Status: Ordered Zofran 0 Refill(s) Start Date: 05/28/17 Stop Date: 06/05/17 Status: Discontinued Zofran 4 mg, 2 mL, Route: IVP, Drug form: INJ, Q8H, Dosing Weight 58.591, kg, PRN Nause a, Start date: 05/27/17 18:50:00 CDT, Duration: 30 day, Stop date: 06/26/17 18:4 9:00 CDT Notes: (Same as: Zofran) MEDICATION WASTE Product Size: 4 mgProduct Was kallie: ___ mg Start Date: 05/27/17 Stop Date: 06/05/17 Status: Discontinued Zofran 4 mg oral tablet 4 mg=1 tab, PO, Q8H, PRN Nausea/vomiting, # 21 tab, 0 Refill(s), Pharmacy: [facility] [id number] Start Date: 06/05/17 Stop Date: 06/12/17 Status: Ordered Results BLOOD BANK RESULTS Most recent to oldest [Reference Range]: ABO/Rh O POS *Unknown* (05/29/17 8:08 AM) Antibody Scrn Negative (05/29/17 8:08 AM) Antigen LOUIE Int K neg E pos c pos e neg C neg *Unknown* *Unknown* *Unknown* *Unknown* *Unknown* (05/29/17 9:01 AM) (05/29/17 9:01 AM) (05/29/17 9:01 AM) (05/29/17 9:01 AM) (05/29/17 9:01 AM) RBC product Product available (05/29/17 7:26 PM) ELECTROLYTES Most recent to 1 11 25 4 5 oldest [Reference Range]: Sodium Lvl [135-145 143 mEq/L 142 mEq/L 139 mEq/L mEq/L] (06/05/17 5:04 (06/04/17 5:11 (05/31/17 3:49 AM) AM) AM) Potassium Lvl 4.1 mEq/L 4.0 mEq/L 4.1 mEq/L [3.5-5.1 mEq/L] (06/05/17 5:04 (06/04/17 5:11 (05/31/17 3:49 AM) AM) AM) Chloride Lvl [95-109 107 mEq/L 107 mEq/L 100 mEq/L mEq/L] (06/05/17 5:04 (06/04/17 5:11 (05/31/17 3:49 AM) AM) AM) CO2 [24-32 mEq/L] 28 mEq/L 29 mEq/L 33 mEq/L (06/05/17 5:04 (06/04/17 5:11 *HI* AM) AM) (05/31/17 3:49 AM) AGAP [10.0-20.0 12.1 mEq/L 10.0 mEq/L 10.1 mEq/L mEq/L] (06/05/17 5:04 (06/04/17 5:11 (05/31/17 3:49 AM) AM) AM) CHEM PANEL Most recent to 1 2 3 4 5 oldest [Reference Range]: Creatinine Lvl 0.34 mg/dL 0.35 mg/dL 0.42 mg/dL [0.50-1.40 mg/dL] *LOW* *LOW* *LOW* (06/05/17 5:04 (06/04/17 5:11 (05/31/17 3:49 AM) AM) AM) eGFR 183 181 170 mL/min/1.73m2 1 mL/min/1.73m2 2 mL/min/1.73m2 3 *NA* *NA* *NA* (06/05/17 5:04 (06/04/17 5:11 (05/31/17 3:49 AM) AM) AM) BUN [7-22 mg/dL] 3 mg/dL <1 mg/dL 2 mg/dL *LOW* *LOW* *LOW* (06/05/17 5:04 (06/04/17 5:11 (05/31/17 3:49 AM) AM) AM) B/C Ratio [6-25] 9 5 6 (06/05/17 5:04 *LOW* (05/29/17 3:06 AM) AM) (05/31/17 3:49 AM) Glucose Lvl [70-99 97 mg/dL 102 mg/dL 93 mg/dL mg/dL] (06/05/17 5:04 *HI* (05/31/17 3:49 AM) AM) (06/04/17 5:11 AM) Total Protein 6.4 g/dL 7.4 g/dL 6.9 g/dL [6.4-8.4 g/dL] (06/05/17 5:04 (05/31/17 3:49 AM) (05/29/17 3:06 AM) AM) Albumin Lvl [3.5-5.0 3.2 g/dL 3.6 g/dL 3.7 g/dL g/dL] *LOW* (05/31/17 3:49 AM) (05/29/17 3:06 AM) (06/05/17 5:04 AM) Globulin [2.7-4.2 3.2 g/dL 3.8 g/dL 3.2 g/dL g/dL] (06/05/17 5:04 (05/31/17 3:49 AM) (05/29/17 3:06 AM) AM) A/G Ratio [0.7-1.6] 1.0 0.9 1.2 (06/05/17 5:04 (05/31/17 3:49 AM) (05/29/17 3:06 AM) AM) Calcium Lvl 8.6 mg/dL 8.8 mg/dL 9.1 mg/dL [8.5-10.5 mg/dL] (06/05/17 5:04 (06/04/17 5:11 (05/31/17 3:49 AM) AM) AM) Phosphorus [2.5-4.5 4.6 mg/dL 3.8 mg/dL 3.9 mg/dL mg/dL] *HI* (05/29/17 3:06 AM) (05/27/17 3:40 AM) (05/31/17 3:49 AM) Magnesium Lvl 2.2 mg/dL 2.2 mg/dL 2.1 mg/dL [1.8-2.4 mg/dL] (05/31/17 3:49 AM) (05/29/17 3:06 AM) (05/27/17 3:40 AM) ALT [0-65 unit/L] 26 unit/L 43 unit/L 57 unit/L (06/05/17 5:04 (05/31/17 3:49 AM) (05/29/17 3:06 AM) AM) AST [0-37 unit/L] 24 unit/L 23 unit/L 36 unit/L (06/05/17 5:04 (05/31/17 3:49 AM) (05/29/17 3:06 AM) AM) Alk Phos [39-136 160 unit/L 216 unit/L 140 unit/L unit/L] *HI* *HI* *HI* (06/05/17 5:04 (05/31/17 3:49 AM) (05/29/17 3:06 AM) AM) LDH [98-192 unit/L] 332 unit/L 348 unit/L 337 unit/L *HI* *HI* *HI* (06/05/17 5:04 (06/04/17 2:57 (06/04/17 5:11 AM) PM) AM) Bili Total [0.2-1.3 0.7 mg/dL 1.1 mg/dL 1.0 mg/dL mg/dL] (06/05/17 5:04 (05/31/17 3:49 AM) (05/29/17 3:06 AM) AM) Lactic Acid Lvl 1.1 mMol/L [0.5-2.2 mMol/L] (05/27/17 10:23 AM) 1Result Comment: The eGFR is calculated using [...] be mul tiplied by the estimated BMI. CARDIAC ENZYMES Most recent to 5 oldest [Reference Range]: Total CK [12-191 33 unit/L unit/L] (05/26/17 10:04 PM) CK MB [0.5-3.6 <0.5 ng/mL ng/mL] (05/26/17 10:04 PM) CK MB Index <1.5 [0.0-2.5] (05/26/17 10:04 PM) Troponin-I <0.02 ng/mL [0.00-0.40 ng/mL] (05/26/17 10:04 PM) ENDOCRINOLOGY Most recent to oldest [Reference Range]: S Preg [Negative] Negative *NA* (05/26/17 10:04 PM) URINE AND STOOL Most recent to 4 5 oldest [Reference Range]: UA Turbidity [Clear] Clear (05/27/17 2:56 AM) UA Color [Yellow] Yellow *NA* (05/27/17 2:56 AM) UA pH [5.0-8.0] 5.5 (05/27/17 2:56 AM) UA Spec Grav <=1.005 [<=1.030] *NA* (05/27/17 2:56 AM) UA Glucose Negative [Negative] (05/27/17 2:56 AM) UA Blood [Negative] Negative (05/27/17 2:56 AM) UA Ketones Negative [Negative] *NA* (05/27/17 2:56 AM) UA Protein Negative [Negative] (05/27/17 2:56 AM) UA Urobilinogen 0.2 EU/dL [0.1-1.0 EU/dL] (05/27/17 2:56 AM) UA Bili [Negative] Negative *NA* (05/27/17 2:56 AM) UA Leuk Est Negative [Negative] (05/27/17 2:56 AM) UA Nitrite Negative [Negative] (05/27/17 2:56 AM) UA WBC [None Seen 0-2 /HPF /HPF] (05/27/17 2:56 AM) UA RBC [0-2] None Seen (05/27/17 2:56 AM) UA Bacteria [None Few /HPF Seen /HPF] (05/27/17 2:56 AM) UA Sq Epi [Few /LPF] Few /LPF (05/27/17 2:56 AM) HEMATOLOGY Most recent to 1 2 3 4 5 oldest [Reference Range]: WBC [3.7-10.4 K/CMM] 15.2 K/CMM 14.7 K/CMM 18.4 K/CMM *HI* *HI* *HI* (06/05/17 5:04 (06/04/17 5:11 (05/31/17 3:49 AM) AM) AM) RBC [4.20-5.40 2.41 M/CMM 2.52 M/CMM 2.79 M/CMM M/CMM] *LOW* *LOW* *LOW* (06/05/17 5:04 (06/04/17 5:11 (05/31/17 3:49 AM) AM) AM) Hgb [12.0-16.0 g/dL] 5.5 g/dL 1 5.7 g/dL 2 6.4 g/dL 3 *CRIT* *CRIT* *CRIT* (06/05/17 5:04 (06/04/17 5:11 (05/31/17 3:49 AM) AM) AM) Hct [36.0-48.0 %] 17.3 % 18.0 % 19.5 % 4 *CRIT* *CRIT* *CRIT* (06/05/17 5:04 (06/04/17 5:11 (05/31/17 3:49 AM) AM) AM) MCV [80.0-98.0 fL] 71.8 fL 71.4 fL 69.8 fL *LOW* *LOW* *LOW* (06/05/17 5:04 (06/04/17 5:11 (05/31/17 3:49 AM) AM) AM) MCH [27.0-31.0 pg] 22.6 pg 22.5 pg 23.0 pg *LOW* *LOW* *LOW* (06/05/17 5:04 (06/04/17 5:11 (05/31/17 3:49 AM) AM) AM) MCHC [32.0-36.0 31.5 g/dL 31.5 g/dL 32.9 g/dL g/dL] *LOW* *LOW* (05/31/17 3:49 AM) (06/05/17 5:04 (06/04/17 5:11 AM) AM) RDW [11.5-14.5 %] 18.4 % 17.1 % 15.4 % *HI* *HI* *HI* (06/05/17 5:04 (06/04/17 5:11 (05/31/17 3:49 AM) AM) AM) Platelet [133-450 476 K/CMM 463 K/CMM 474 K/CMM K/CMM] *HI* *HI* *HI* (06/05/17 5:04 (06/04/17 5:11 (05/31/17 3:49 AM) AM) AM) MPV [7.4-10.4 fL] 7.9 fL 7.6 fL 8.7 fL (06/05/17 5:04 (06/04/17 5:11 (05/31/17 3:49 AM) AM) AM) Segs [45.0-75.0 %] 60.0 % 54.8 % 69.9 % (06/05/17 5:04 (06/04/17 5:11 (05/31/17 3:49 AM) AM) AM) Lymphocytes 22.3 % 25.1 % 13.0 % [20.0-40.0 %] (06/05/17 5:04 (06/04/17 5:11 *LOW* AM) AM) (05/31/17 3:49 AM) Monocytes [2.0-12.0 12.4 % 12.7 % 15.6 % %] *HI* *HI* *HI* (06/05/17 5:04 (06/04/17 5:11 (05/31/17 3:49 AM) AM) AM) Eosinophils [0.0-4.0 4.5 % 5.9 % 1.0 % %] *HI* *HI* (05/31/17 3:49 AM) (06/05/17 5:04 (06/04/17 5:11 AM) AM) Basophils [0.0-1.0 0.8 % 1.5 % 0.5 % %] (06/05/17 5:04 *HI* (05/31/17 3:49 AM) AM) (06/04/17 5:11 AM) Segs-Bands # 9.1 K/CMM 8.0 K/CMM 12.9 K/CMM [1.5-8.1 K/CMM] *HI* (06/04/17 5:11 *HI* (06/05/17 5:04 AM) (05/31/17 3:49 AM) AM) Lymphocytes # 3.4 K/CMM 3.7 K/CMM 2.4 K/CMM [1.0-5.5 K/CMM] (06/05/17 5:04 (06/04/17 5:11 (05/31/17 3:49 AM) AM) AM) Monocytes # [0.0-0.8 1.9 K/CMM 1.9 K/CMM 2.9 K/CMM K/CMM] *HI* *HI* *HI* (06/05/17 5:04 (06/04/17 5:11 (05/31/17 3:49 AM) AM) AM) Eosinophils # 0.7 K/CMM 0.9 K/CMM 0.2 K/CMM [0.0-0.5 K/CMM] *HI* *HI* (05/31/17 3:49 AM) (06/05/17 5:04 (06/04/17 5:11 AM) AM) Basophils # [0.0-0.2 0.1 K/CMM 0.2 K/CMM 0.1 K/CMM K/CMM] (06/05/17 5:04 (06/04/17 5:11 (05/31/17 3:49 AM) AM) AM) Anisocyte [None 1+ Seen] *ABN* (05/27/17 3:40 AM) Polychrom slight Slight *NA* *NA* (05/30/17 3:34 AM) (05/27/17 3:40 AM) Hypochrom [None 1+ 1+ Seen] (05/30/17 3:34 AM) (05/27/17 3:40 AM) Microcyte [None 2+ 2+ 2+ Seen] *ABN* *ABN* *ABN* (06/05/17 5:04 (06/04/17 5:11 (05/31/17 3:49 AM) AM) AM) Target Cell [None Moderate Seen] *ABN* (05/30/17 3:34 AM) Target Cell Slight *NA* (05/27/17 3:40 AM) Tear Cell slight *NA* (05/30/17 3:34 AM) Sickle Cell Slight *NA* (05/27/17 3:40 AM) Toxic Gran Slight *NA* (05/27/17 3:40 AM) Schistocyte [None 1-3 per HPF Seen] (05/30/17 3:34 AM) Large Plt slight Slight *NA* *NA* (05/30/17 3:34 AM) (05/27/17 3:40 AM) Retic Auto [0.5-1.5 18.3 % 18.2 % 18.0 % %] *HI* *HI* *HI* (06/05/17 5:04 (06/04/17 2:57 (06/04/17 5:11 AM) PM) AM) PT [12.0-14.7 14.6 seconds seconds] (05/27/17 3:40 AM) INR [0.85-1.17] 1.12 (05/27/17 3:40 AM) PTT [22.9-35.8 32.3 seconds seconds] (05/27/17 3:40 AM) 1Result Comment: Critical Result(s) called to Hanny Jj at 06/05/2017 06:12 by sp. Read back OK. 2Result Comment: Critical Result(s) called to Monse Meyer at 06/04/2017 05:47 by sp. Read back OK. 3Result Comment: Critical Result(s) called to Kalie ASH at 05/31/2017 06:11 by D^2. Read back OK. 4Result Comment: Critical Result(s) called to Kalie ASH at 05/31/2017 06:11 by D^2. Read back OK. Immunizations No data available for this section Procedures No data available for this section Social History Social History Type Response Substance Abuse Use: None. Alcohol Never Smoking Status Never smoker; Exposure to Tobacco Smoke None; Cigarette Smoking Last 365 Days No; Reg Smoking Cessation Counseling No Assessment and Plan Extracted from: Title: HO Progress Note Author: Ayo Calderon MD Date: 06/05/17 Hematology Oncology Progress Note SUBJECTIVE Patient states that she is still in pain. Reviewed patient's history of the current vaso-occlusive pain crisis with her. She confirmed that her pain crisis has started when she was in [facility], discharged on June 15, followed by admission to [facility], discharge right prior to admission here. Overall it appears that patient has been now on IV pain medicines for almost a month. Discussed with the patient that her pain has not gotten subjectively better with 1 month of IV opioids and we may have to come up with the plan on how to control her pain at home on PO pain meds. Discussed with the patient that we can manage her continuous IV dose of morphine with the long-acting morphine by mouth, which should provide her similar pain relief. During the conversation patient came very frustrated, started raising her voice and became disrespectful. ROS: 6 system ROS was performed and is negative, unless mentioned above OBJECTIVE Vital signs reviewed Gen: appears in no acute distress, eating her breakfast and playing with the phone as I am interviewing her Eyes: EOMI HEENT: NC/AT Lungs: no labored breathing Psych: patient became agitated, frustrated and started raising her voice during our conversation Neuro: no obvious neurological deficits noted The rest of the physical exam was refused by the patient Labs: Reviewed, noted LDH 332, alk phos 160, WBC 15.2, hemoglobin 5.5, platelets 476, reticulocyte count 18 point Imaging: Reviewed, noted No new imaging ASSESSMENT & PLAN This is 21-year-old -[place] female with past medical history of sickle cell disease, currently admitted with sickle cell crisis. Sickle cell pain crisis - patient presents with the usual symptoms of uncomplicated sickle cell pain crisis. No evidence of acute chest. - continue hydration with hypotonic IV fluids (switched from D5 1/2 NS to D5 1/4 NS, to make hypotonic) - O2 PRN - no indication for transfusion - agree with NSAIDs as scheduled - bowel regiment with senna and colace - folic acid 1 mg daily to support erythropoiesis - encourage incentive spirometer - 06/01/17 patient was transitioned off STRIP POLISHER, now on MS Contin 30 mg q12 and MS IR 15 mg q4 hrs PRN, tramadol q6 hrs. Consider discharge if pain is controlled on PO narcotics - 06/02/17 Patient would like to stay one more day on the current regimen - 06/05/17 Over the weekend, patient was placed back on STRIP POLISHER, which apears to control her pain at this time. Her MS Contin was held by the nurses. I would recommend switching patient to long acting morphine (she is likely to require higher dose of MS Contin than what she was on at home), to match continuous morphine IV, while allowing IV morphine PRN. Patient is currently on 3 mg/hr, which is equal to 72 mg/day IV or 216 mg PO. I would recommend increasing her MS Contin to 45 mg q8 hrs (135 mg/day, may increase to 60 q8h if does not show signs of overdose), encourage to take morphine IR 15 mg q4h PRN and switch to PRN IV morphine for break through pain. At this time, patient's labs show improvement with decline in LDH, although she continues to have signficant hemolysis with slowly downtrending Hgb, despite high retic count. Patient needs to follow up with her outpatient team cdl driver and further discuss hydroxyurea. 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 HPI: The patient is a 21-year-old woman admitted for sickle cell disease with recurrent acute pain crisis. She has frequent hospital admits for acute pain crisis described. She presented to the emergency room approximately 1 day after discharge from another hospital for acute pain crisis. She currently describes diffuse musculoskeletal pain as 8/10 intensity, which was 10/10 intensity on initial presentation. She states that she typically drinks 48 oz water approximately 3-4 x / day. The patient describes frequent pain crisis within recent years. She has moved to this area from [place], [place] since 09/2016. She states recent fluctuating history of nausea and loose stools. She describes no recent fever or chills. She has protracted history of doxycycline suggested on a protocol after discontinuation of prior Pen VK use sickle cell disease protocol during adolescence. The patinet describes no infecious complications history. She does not describe frequent blood transfusion support needs. She reports no blood transfusion history prior to graduation from high school and limited blood transfusion within the past couple years. She has strong views that she is opposed to hydrea Rx use despite prior advise that it may decrease hospitalizations from acute pain crisis. She states that her cousins have not have benefit from use of hydrea in sickle cell management. Review of Systems Constitutional: Negative Eye: Negative. ENT: Negative. Respiratory: Negative. Cardiovascular: Negative Gastrointestinal: Limited recent history of nausea and loose stool noted Genitourinary: Negative. Hematology/Lymphatics: Negative Endocrine: Negative. Immunologic: Negative. Musculoskeletal: Polyarticular and lower rib pain 8/10 intensity following recent changes to STRIP POLISHER morphine Skin: Negative Neurologic: Negative Psychiatric: Negative. Past Medical History: No qualifying data available Past Surgical History: No qualifying data available Family History: No qualifying data available Social History: Alcohol Details: Never Tobacco Details: Use: Never smoker. Tobacco smoke exposure: None. Did the Patient Smoke Cigarettes Anytime During the Last 365 Days? No. Cessation Counseling Provided? No. Substance Abuse Details: Use: None. Allergies: Augmentin(hives), Dilaudid(extreme memory loss) I have reviewed Home Med Reconciliation list and the hospital MAR. VitalsTmp(F)[id number] 05/28 [id number] 4.0L/m 05/28 [id number] 4.0L/m 05/28 06:41 [id number] 2.0L/m 05/28 04:[id number] 2.0L/m 05/27 23:[id number]--- 24 Hr Tmax: 99.7F (37.61c) at 05/27 17:47Vital Signs are the last 5 in the past 48 hours. Physical Exam: General: NAD, Alert and oriented x 3 Cardiovascular: Regular rate and rhythm Lungs: Nonlabored respirations. Clear to auscultation bilaterally Abdomen: Soft, nontender/nondistended. No splenomegaly or hepatomegaly noted on palpation or percussion. Extremities: No edema and otherwise appropriate. Skin: No ecchymoses. No rash. Labs (Last four charted values) WBC H 18.2(MAY 27)H 20.6(MAY 26) Hgb C 6.9(MAY 27)L 8.8(MAY 26) Hct L 20.8(MAY 27)L 26.8(MAY 26) Plt 322(MAY 27)396(MAY 26) Na 142(MAY 27)139(MAY 26) K L 3.4(MAY 27)L 3.1(MAY 26) CO2 25(MAY 27)28(MAY 26) Cl 107(MAY 27)105(MAY 26) Cr L 0.36(MAY 27)L 0.49(MAY 26) BUN L 6(MAY 27)8(MAY 26) Glucose Random H 109(MAY 27)H 101(MAY 26) Mg 2.1(MAY 27) Phos 3.9(MAY 27) Ca 8.8(MAY 27)9.3(MAY 26) PT 14.6(MAY 27) INR 1.12(MAY 27) PTT 32.3(MAY 27) Troponin <0.02(MAY 26) CK MB <0.5(MAY 26) Total CK 33(MAY 26) 24hr Labs 05/28 0348 [id number] H Retic Auto3.8 H Radiology: _ CXR Clinical Indication: - chestpain in a sickle cell patient; Comparison: 05/12/2017 Technique: X-ray chest frontal projection FINDINGS: There is mild pulmonary congestion. There is no focal consolidation, pleural effusion or pneumothorax. The heart is normal in size. The mediastinum and herman are unremarkable. The visualized bones and soft tissues are within normal limits. IMPRESSION: Mild pulmonary congestion. RIGHT UPPER QUADRANT ULTRASOUND: HISTORY: Abnormal liver [...] biliary dilatation. 2. Hepatomegaly with fatty infiltration. [id number] Signature Line - - Read by: Savage Zeng MD Dictated Date/time: 05/27/17 08:06 Electronically Signed by: Savage Zeng MD 05/27/17 08:10 FINAL REPORT Assessment: _ Sickle cell disease with frequent acute pain crisis Plan: Narcotic medication and titration IV and oral hydration Folic acid daily Typically would benefit from outpatient Hydrea Rx Another oral preventitive treatment option, Endari, (L-glutamine) has been FDA approved since 04/2017 to recurrent acute pain crisis admits for sickle cell disease with frequent pain crisis. Iron studies outpatient surveillance recommended to assess for potential iatrogenic iron overload Thanks Оелг Spring MD Extracted from: Title: Admission H&P * Author: Robert Rushing Date: 05/26/17 Larry MEEKS Impression and Plan 21-year-old female with history of anxiety depression, sickle cell disease, presented to emergency room complaining of generalized body ache. 1. Sickle Cell Vaso-occlusive crisis. 2. Anxiety depression. Denies suicidal homicidal ideation 3. DVT prophylaxis. Early ambulation 4. Hypokalemia. 5. Sickle cell anemia. Current hemoglobin 8.8 hemoglobin is 91.6% on May 02, 2017. Multiple admission for vaso-occlusive crisis. 6. Pain Management 7. Hepatocellular disease. Plan IV hydration. Morphine STRIP POLISHER pump. Oxygen therapy. Monitor CBC, ret, LDH. Supplement K. ABD RUQ US.
[2019-03-11] MEDS ORDERED: PANTOPRAZOLE 40 MG 10ML VIAL IV STA (17:22)
--- OUTSIDE RECORDS SUMMARY | 2019-03-11 17:22 | XMS REPORT | Summary of Care ---
Author Author [facility] Organization [facility] Address Unknown Phone Unavailable Encounter GINGER Hobbs(ARSENIO) [id number] Date(s): 10/28/17 - 11/03/17 [facility] [address] [facility] provided by [facility] [place] [address]- Encounter Diagnosis Hb-SS disease with crisis, unspecified (Final) - 11/11/17 Systemic inflammatory response syndrome (SIRS) of non-infectious origin without acute organ dysfunction (Final) - Amenorrhea, unspecified (Final) - Hypokalemia (Final) - Other amnesia (Final) - Unspecified hemorrhoids (Final) - Anemia, unspecified (Final) - Constipation, unspecified (Final) - Discharge Disposition: Home or Self Care Attending Physician: Jeana Kimball MD Admitting Physician: Jeana Kimball MD Vital Signs 1 2 3 Most recent to oldest [Reference Range]: 160.02 cm (10/28/17 6:16 PM) 162.56 cm (10/28/17 10:45 AM) Height 99 DegF (11/03/17 11:49 AM) 98.5 DegF (11/03/17 7:40 AM) 98.5 DegF (11/03/17 6:18 AM) Temperature Oral [96.4-99.1 DegF] 96/60 mmHg (11/03/17 11:49 AM) 100/65 mmHg (11/03/17 7:40 AM) 102/66 mmHg (11/03/17 6:18 AM) Blood Pressure [90-140/60-90 mmHg] 18 BRMIN (11/03/17 11:49 AM) 20 BRMIN (11/03/17 7:40 AM) 18 BRMIN (11/03/17 6:18 AM) Respiratory Rate [14-20 BRMIN] 96 bpm (11/03/17 11:49 AM) 75 bpm (11/03/17 7:40 AM) 81 bpm (11/03/17 6:18 AM) Peripheral Pulse Rate [60-100 bpm] 55.909 kg (10/28/17 6:16 PM) 54.545 kg (10/28/17 10:45 AM) Weight 21.83 m2 (10/28/17 6:16 PM) 20.64 m2 (10/28/17 10:45 AM) Body Mass Index Problem List Condition Effective Dates Status Health Status Informant Anxiety disorder, Active unspecified(Confirme d) Cardiomegaly(Confirm Active ed) Sickle cell Active crisis(Confirmed) Anxiety and Resolved depression(Confirmed ) Depression(Confirmed Active ) Allergies, Adverse Reactions, Alerts Substance Reaction Severity Status Augmentin hives Active Medications 1/2 NS 1,000 mL 1,000 mL, Rate: 100 ml/hr, Infuse over: 10 hr, Route: IV, Dosing Weight 55.909 k g, Total Volume: 1,000, Start date: 10/30/17 9:22:00 CONTINUOUS IMPROVEMENT CONSULTANT, Duration: 30 day, Stop date: 11/29/17 9:21:00 CONTINUOUS IMPROVEMENT CONSULTANT, 1.59, m2 Start Date: 10/30/17 Stop Date: 11/01/17 Status: Discontinued acetaminophen 650 mg, 2 tab, Route: PO, Drug form: TAB, Q6H, Dosing Weight 54.545, kg, Start d ate: 10/30/17 12:00:00 CONTINUOUS IMPROVEMENT CONSULTANT, Duration: 30 day, Stop date: 11/29/17 6:00:00 CONTINUOUS IMPROVEMENT CONSULTANT Notes: Do not exceed 4 gm/day. (Same as: Tylenol) Start Date: 10/30/17 Stop Date: 11/03/17 Status: Discontinued acetaminophen 650 mg, 2 tab, Route: PO, Drug form: TAB, Q4H, Dosing Weight 54.545, kg, PRN Ksenia n 1-3/Temp > 100.4 F, Start date: 10/28/17 16:30:00 CONTINUOUS IMPROVEMENT CONSULTANT, Duration: 30 day, Stop date: 11/27/17 16:29:00 CONTINUOUS IMPROVEMENT CONSULTANT Notes: Do not exceed 4 gm/day. (Same as: Tylenol) Start Date: 10/28/17 Stop Date: 10/30/17 Status: Discontinued Benadryl 25 mg, 1 cap, Route: PO, Drug form: CAP, TID, Dosing Weight 55.909, kg, PRN Itch ing, Priority: NOW, Start date: 11/01/17 10:58:00 CONTINUOUS IMPROVEMENT CONSULTANT, Duration: 30 day, Stop da te: 12/01/17 10:57:00 CONTINUOUS IMPROVEMENT CONSULTANT Notes: (Same as: Benadryl) Start Date: 11/01/17 Stop Date: 11/03/17 Status: Discontinued docusate 40 mg, Route: PO, TID, Dosing Weight 55.909, kg, Priority: NOW, Start date: 10/23 10:05:00 CONTINUOUS IMPROVEMENT CONSULTANT, Duration: 30 day, Stop date: 12/01/17 9:00:00 CONTINUOUS IMPROVEMENT CONSULTANT Start Date: 11/01/17 Stop Date: 11/01/17 Status: Discontinued docusate 100 mg, 1 cap, Route: PO, Drug form: CAP, BID, Dosing Weight 54.545, kg, Start d ate: 10/28/17 17:00:00 CONTINUOUS IMPROVEMENT CONSULTANT, Duration: 30 day, Stop date: 11/27/17 9:00:00 CONTINUOUS IMPROVEMENT CONSULTANT Notes: (Same as: Colace) (Do Not Crush) Start Date: 10/28/17 Stop Date: 11/03/17 Status: Discontinued folic acid 1 mg, 1 tab, Route: PO, Drug form: TAB, Daily, Dosing Weight 54.545, kg, Start d ate: 10/29/17 9:00:00 CONTINUOUS IMPROVEMENT CONSULTANT, Duration: 30 day, Stop date: 11/27/17 9:00:00 CONTINUOUS IMPROVEMENT CONSULTANT Notes: (Same as: Folvite) Start Date: 10/29/17 Stop Date: 11/03/17 Status: Discontinued gabapentin 300 mg oral capsule 300 mg, 1 cap, Route: PO, Drug form: CAP, Q8H, Dosing Weight 54.545, kg, (CrCl > 60 ml/min), Priority: NOW, Start date: 10/28/17 15:58:00 CONTINUOUS IMPROVEMENT CONSULTANT, Duration: 30 day, Stop date: 11/27/17 8:00:00 CONTINUOUS IMPROVEMENT CONSULTANT Notes: (Same as: Neurontin) Start Date: 10/28/17 Stop Date: 11/03/17 Status: Discontinued hydrocortisone topical 1% cream 1 appl, Route: TOP, BID, Drug form: CRM, PRN Itching, Start date: 11/01/17 1:26: 00 CONTINUOUS IMPROVEMENT CONSULTANT, Duration: 30 day, Stop date: 12/01/17 1:25:00 CONTINUOUS IMPROVEMENT CONSULTANT Start Date: 11/01/17 Stop Date: 11/02/17 Status: Discontinued hydromorphone 1 mg, 0.5 mL, Route: IV, Drug form: INJ, ONCE, Dosing Weight 54.545, kg, Start d ate: 10/28/17 14:11:00 CONTINUOUS IMPROVEMENT CONSULTANT, Stop date: 10/28/17 14:11:00 CONTINUOUS IMPROVEMENT CONSULTANT Notes: Same as Dilaudid Start Date: 10/28/17 Stop Date: 10/28/17 Status: Completed hydromorphone 1 mg, Route: IV, ONCE, Dosing Weight 54.545, kg, Start date: 10/28/17 12:54:[address], Stop date: 10/28/17 12:54:00 CONTINUOUS IMPROVEMENT CONSULTANT Start Date: 10/28/17 Stop Date: 10/28/17 Status: Completed hydromorphone 1 mg, 0.5 mL, Route: IV, Drug form: INJ, ONCE, Dosing Weight 54.545, kg, Start d ate: 10/28/17 11:43:00 CONTINUOUS IMPROVEMENT CONSULTANT, Stop date: 10/28/17 11:43:00 CONTINUOUS IMPROVEMENT CONSULTANT Notes: Same as Dilaudid Start Date: 10/28/17 Stop Date: 10/28/17 Status: Completed ibuprofen 400 mg, 1 tab, Route: PO, Drug form: TAB, Q4H, Dosing Weight 54.545, kg, Priorit y: NOW, Start date: 10/28/17 16:35:00 CONTINUOUS IMPROVEMENT CONSULTANT, Duration: 30 day, Stop date: 11/27/17 16:00:00 CONTINUOUS IMPROVEMENT CONSULTANT Notes: (Same as: Motrin)"Do Not Crush" Give with food. Start Date: 10/28/17 Stop Date: 10/31/17 Status: Discontinued ibuprofen 400 mg, 1 tab, Route: PO, Drug form: TAB, Q4H, Dosing Weight 54.545, kg, PRN Ksenia n Score 1-3, Priority: NOW, Start date: 10/28/17 15:58:00 CONTINUOUS IMPROVEMENT CONSULTANT, Duration: 30 day, Stop date: 11/27/17 15:57:00 CONTINUOUS IMPROVEMENT CONSULTANT Start Date: 10/28/17 Stop Date: 10/28/17 Status: Discontinued ibuprofen 600 mg, 1 tab, Route: PO, Drug form: TAB, Q6H, Dosing Weight 55.909, kg, PRN Ksenia n Score 1-5, Start date: 10/31/17 17:07:00 CONTINUOUS IMPROVEMENT CONSULTANT, Duration: 30 day, Stop date: 06/09 17:06:00 CONTINUOUS IMPROVEMENT CONSULTANT Notes: (Same as: Motrin)"Do Not Crush" Take with food. Start Date: 10/31/17 Stop Date: 11/03/17 Status: Discontinued Lactated Ringers (Bolus) IV 1,000 mL, 1,000 ml/hr, Infuse Over: 1 hr, Route: IV, 1,000, Drug form: INJ, ONCE , Priority: STAT, Dosing Weight 54.545 kg, Start date: 10/28/17 10:59:00 CONTINUOUS IMPROVEMENT CONSULTANT, St op date: 10/28/17 10:59:00 CONTINUOUS IMPROVEMENT CONSULTANT Start Date: 10/28/17 Stop Date: 10/28/17 Status: Completed lactulose 10 g/15 mL oral syrup 10 gm, 15 mL, Route: PO, Drug form: SYRP, ONCE, Dosing Weight 55.909, kg, Priori ty: NOW, Start date: 11/03/17 9:37:00 CONTINUOUS IMPROVEMENT CONSULTANT, Stop date: 11/03/17 9:37:00 CONTINUOUS IMPROVEMENT CONSULTANT Notes: (Same as:Chronulac) Start Date: 11/03/17 Stop Date: 11/03/17 Status: Completed Lovenox 40 mg, 0.4 mL, Route: SUB-Q, Drug form: INJ, [id number], Dosing Weight 54.545, kg, Start date: 10/28/17 17:00:00 CONTINUOUS IMPROVEMENT CONSULTANT, Duration: 30 day, Stop date: 11/26/17 17:00: 00 CONTINUOUS IMPROVEMENT CONSULTANT Notes: (Same as: Lovenox) Start Date: 10/28/17 Stop Date: 11/03/17 Status: Discontinued LR IV 1,000 mL 1,000 mL, Rate: 125 ml/hr, Infuse over: 8 hr, Route: IV, Dosing Weight 54.545 kg , Total Volume: 1,000, Start date: 10/28/17 15:25:00 CONTINUOUS IMPROVEMENT CONSULTANT, Duration: 30 day, Stop date: 11/27/17 15:24:00 CONTINUOUS IMPROVEMENT CONSULTANT, 1.58, m2 Start Date: 10/28/17 Stop Date: 10/30/17 Status: Discontinued Milk of Magnesia 30 ml, Route: PO, Drug Form: SUSP, Dosing Weight 55.909, kg, ONCE, PRN as needed for constipation, NOW, Start date: 11/01/17 10:58:00 CONTINUOUS IMPROVEMENT CONSULTANT Notes: (Same as: Milk of Magnesia, MOM) Start Date: 11/01/17 Stop Date: 11/01/17 Status: Completed MiraLax 17 gm, 1 pkt, Route: PO, Drug form: PWDR, ONCE, Dosing Weight 55.909, kg, Start date: 11/01/17 22:33:00 CONTINUOUS IMPROVEMENT CONSULTANT, Stop date: 11/01/17 22:33:00 CONTINUOUS IMPROVEMENT CONSULTANT Notes: Dissolve in 8 oz of water or juice.(Same as: Miralax) Start Date: 11/01/17 Stop Date: 11/01/17 Status: Completed MiraLax 17 gm, 1 pkt, Route: PO, Drug form: PWDR, Daily, Dosing Weight 55.909, kg, Prior ity: NOW, Start date: 11/01/17 10:05:00 CONTINUOUS IMPROVEMENT CONSULTANT, Duration: 30 day, Stop date: 9:00:00 CONTINUOUS IMPROVEMENT CONSULTANT Notes: Dissolve in 8 oz of water or juice.(Same as: Miralax) Start Date: 11/01/17 Stop Date: 11/03/17 Status: Discontinued morphine 1 mg/ml SHOTGUN SHELL ASSEMBLY MACHINE OPERATOR (30 mg/30 mL) INJ Syringe 30 mg 30 mg, 30 mL, Route: IV, Initial Loading Dose: 2 mg, SHOTGUN SHELL ASSEMBLY MACHINE OPERATOR Dose: 1.5 mg, SHOTGUN SHELL ASSEMBLY MACHINE OPERATOR Lock out: 7 minutes, Continuous Basal Rate: 2 mg, 4 Hour Limit (In MG): 58, Drug Form : INJ, Continuous, Start date: 10/31/17 8:18:00 CONTINUOUS IMPROVEMENT CONSULTANT, Duration: 30 day, Stop date : 11/30/17... Notes: Dose: Delay: Basal rate: 4hr limit:( Same as:Rapi-Ject) Start Date: 10/31/17 Stop Date: 10/31/17 Status: Discontinued morphine 1 mg/ml SHOTGUN SHELL ASSEMBLY MACHINE OPERATOR (30 mg/30 mL) INJ Syringe 30 mg 30 mg, 30 mL, Route: IV, SHOTGUN SHELL ASSEMBLY MACHINE OPERATOR Dose: 1 mg, SHOTGUN SHELL ASSEMBLY MACHINE OPERATOR Lockout: 10 minutes, Continuous Ba caio Rate: 0 mg, 4 Hour Limit (In MG): 24, Drug Form: INJ, Continuous, Start date : 11/01/17 8:50:00 CONTINUOUS IMPROVEMENT CONSULTANT, Duration: 30 day, Stop date: 12/01/17 8:49:00 CONTINUOUS IMPROVEMENT CONSULTANT Notes: Dose: Delay: Basal rate: 4hr limit:( Same as:Monsei-Kelly) Start Date: 11/01/17 Stop Date: 11/01/17 Status: Discontinued morphine 1 mg/ml SHOTGUN SHELL ASSEMBLY MACHINE OPERATOR (30 mg/30 mL) INJ Syringe 30 mg 30 mg, 30 mL, Route: IV, Initial Loading Dose: 2 mg, SHOTGUN SHELL ASSEMBLY MACHINE OPERATOR Dose: 1.5 mg, SHOTGUN SHELL ASSEMBLY MACHINE OPERATOR Lock out: 7 minutes, Continuous Basal Rate: 2.5 mg, 4 Hour Limit (In MG): 58, Drug Fo rm: INJ, Continuous, Start date: 10/30/17 8:38:00 CONTINUOUS IMPROVEMENT CONSULTANT, Duration: 30 day, Stop da te: ... Notes: Dose: Delay: Basal rate: 4hr limit:( Same as:Monsei-Jedavid) Start Date: 10/30/17 Stop Date: 10/31/17 Status: Discontinued morphine 1 mg/ml SHOTGUN SHELL ASSEMBLY MACHINE OPERATOR (30 mg/30 mL) INJ Syringe 30 mg 30 mg, 30 mL, Route: IV, Initial Loading Dose: 2 mg, SHOTGUN SHELL ASSEMBLY MACHINE OPERATOR Dose: 1.5 mg, SHOTGUN SHELL ASSEMBLY MACHINE OPERATOR Lock out: 7 minutes, Continuous Basal Rate: 2 mg, 4 Hour Limit (In MG): 56, Drug Form : INJ, Continuous, Start date: 10/31/17 9:09:00 CONTINUOUS IMPROVEMENT CONSULTANT, Duration: 30 day, Stop date : 11/30/17... Notes: Dose: Delay: Basal rate: 4hr limit:( Same as:Rapi-Ject) Start Date: 10/31/17 Stop Date: 10/31/17 Status: Discontinued morphine 1 mg/ml SHOTGUN SHELL ASSEMBLY MACHINE OPERATOR (30 mg/30 mL) INJ Syringe 30 mg 30 mL, Route: IV, SHOTGUN SHELL ASSEMBLY MACHINE OPERATOR Dose: 1 mg, SHOTGUN SHELL ASSEMBLY MACHINE OPERATOR Lockout: 10 minutes, Continuous Basal Rat e: 0 mg, 4 Hour Limit (In MG): 51, Drug Form: INJ, Continuous, Start date: 11/01 8:43:00 CONTINUOUS IMPROVEMENT CONSULTANT, Duration: 30 day, Stop date: 12/01/17 8:42:00 CONTINUOUS IMPROVEMENT CONSULTANT Start Date: 11/01/17 Stop Date: 11/01/17 Status: Discontinued morphine 1 mg/ml SHOTGUN SHELL ASSEMBLY MACHINE OPERATOR (30 mg/30 mL) INJ Syringe 30 mg 30 mg, 30 mL, Route: IV, SHOTGUN SHELL ASSEMBLY MACHINE OPERATOR Dose: 1 mg, SHOTGUN SHELL ASSEMBLY MACHINE OPERATOR Lockout: 20 minutes, Continuous Ba caio Rate: 0 mg, 4 Hour Limit (In MG): 14, Drug Form: INJ, Continuous, Start date : 11/01/17 15:51:00 CONTINUOUS IMPROVEMENT CONSULTANT, Duration: 30 day, Stop date: 12/01/17 15:50:00 CONTINUOUS IMPROVEMENT CONSULTANT Notes: Dose: Delay: Basal rate: 4hr limit:( Same as:Berna) Start Date: 11/01/17 Stop Date: 11/02/17 Status: Discontinued morphine 1 mg/ml SHOTGUN SHELL ASSEMBLY MACHINE OPERATOR (30 mg/30 mL) INJ Syringe 30 mg 30 mg, 30 mL, Route: IV, Initial Loading Dose: 2 mg, SHOTGUN SHELL ASSEMBLY MACHINE OPERATOR Dose: 1.5 mg, SHOTGUN SHELL ASSEMBLY MACHINE OPERATOR Lock out: 7 minutes, Continuous Basal Rate: 2.5 mg, 4 Hour Limit (In MG): 30, Drug Fo rm: INJ, Continuous, Start date: 10/28/17 15:56:00 CONTINUOUS IMPROVEMENT CONSULTANT, Duration: 30 day, Stop d ate: ... Notes: Dose: Delay: Basal rate: 4hr limit:( Same as:Cristin-Kelly) Start Date: 10/28/17 Stop Date: 10/28/17 Status: Discontinued morphine 1 mg/ml SHOTGUN SHELL ASSEMBLY MACHINE OPERATOR (30 mg/30 mL) INJ Syringe 30 mg 30 mg, 30 mL, Route: IV, Initial Loading Dose: 2 mg, SHOTGUN SHELL ASSEMBLY MACHINE OPERATOR Dose: 1.5 mg, SHOTGUN SHELL ASSEMBLY MACHINE OPERATOR Lock out: 7 minutes, Continuous Basal Rate: 0 mg, 4 Hour Limit (In MG): 51, Drug Form : INJ, Continuous, Start date: 10/31/17 17:07:00 CONTINUOUS IMPROVEMENT CONSULTANT, Duration: 30 day, Stop marcus e: 11/30/17... Notes: Dose: Delay: Basal rate: 4hr limit:( Same as:Cristin-Kelly) Start Date: 10/31/17 Stop Date: 11/01/17 Status: Discontinued morphine 1 mg/ml SHOTGUN SHELL ASSEMBLY MACHINE OPERATOR (30 mg/30 mL) INJ Syringe 30 mg 30 mg, 30 mL, Route: IV, Initial Loading Dose: 2 mg, SHOTGUN SHELL ASSEMBLY MACHINE OPERATOR Dose: 1.5 mg, SHOTGUN SHELL ASSEMBLY MACHINE OPERATOR Lock out: 7 minutes, Continuous Basal Rate: 3 mg, 4 Hour Limit (In MG): 30, Drug Form : INJ, Continuous, Start date: 10/28/17 19:14:00 CONTINUOUS IMPROVEMENT CONSULTANT, Duration: 30 day, Stop marcus e: 11/27/17... Notes: Dose: Delay: Basal rate: 4hr limit:( Same as:Monsei-Kelly) Start Date: 10/28/17 Stop Date: 10/30/17 Status: Discontinued morphine 1 mg/ml SHOTGUN SHELL ASSEMBLY MACHINE OPERATOR (30 mg/30 mL) INJ Syringe 30 mg 30 mL, Route: IV, SHOTGUN SHELL ASSEMBLY MACHINE OPERATOR Dose: 1 mg, SHOTGUN SHELL ASSEMBLY MACHINE OPERATOR Lockout: 15 minutes, Continuous Basal Rat e: 0 mg, 4 Hour Limit (In MG): 24, Drug Form: INJ, Continuous, Start date: 11/01 15:50:00 CONTINUOUS IMPROVEMENT CONSULTANT, Duration: 30 day, Stop date: 12/01/17 15:49:00 CONTINUOUS IMPROVEMENT CONSULTANT Start Date: 11/01/17 Stop Date: 11/01/17 Status: Discontinued morphine 1 mg/ml SHOTGUN SHELL ASSEMBLY MACHINE OPERATOR (30 mg/30 mL) INJ Syringe 30 mg 30 mg, 30 mL, Route: IV, Initial Loading Dose: 0 mg, SHOTGUN SHELL ASSEMBLY MACHINE OPERATOR Dose: 0.5 mg, SHOTGUN SHELL ASSEMBLY MACHINE OPERATOR Lock out: 7 minutes, Continuous Basal Rate: 0 mg, 4 Hour Limit (In MG): 16, Drug Form : INJ, Continuous, Start date: 11/02/17 9:31:00 CONTINUOUS IMPROVEMENT CONSULTANT, Duration: 30 day, Stop date : 12/02/17... Notes: Dose: Delay: Basal rate: 4hr limit:( Same as:Monsei-Kelly) Start Date: 11/02/17 Stop Date: 11/03/17 Status: Discontinued morphine 15 mg oral tablet, extended release 30 mg, 2 tab, Route: PO, Drug form: ERTAB, Q12H, Dosing Weight 55.909, kg, Start date: 10/31/17 21:00:00 CONTINUOUS IMPROVEMENT CONSULTANT, Duration: 30 day, Stop date: 11/30/17 9:00:00 CONTINUOUS IMPROVEMENT CONSULTANT Start Date: 10/31/17 Stop Date: 11/03/17 Status: Discontinued morphine 15 mg oral tablet, immediate release 15 mg, 1 tab, Route: PO, Drug form: TAB, Q6H, Dosing Weight 55.909, kg, Start da te: 10/31/17 18:00:00 CONTINUOUS IMPROVEMENT CONSULTANT, Duration: 30 day, Stop date: 11/30/17 12:00:00 CONTINUOUS IMPROVEMENT CONSULTANT Notes: (Same as:MORPhine Sulfate) Start Date: 10/31/17 Stop Date: 10/31/17 Status: Discontinued morphine 15 mg oral tablet, immediate release 30 mg, 2 tab, Route: PO, Drug form: TAB, Q6H, Dosing Weight 55.909, kg, PRN Pain Score 1-5, Start date: 10/31/17 18:18:00 CONTINUOUS IMPROVEMENT CONSULTANT, Duration: 30 day, Stop date: 06/09 18:17:00 CONTINUOUS IMPROVEMENT CONSULTANT Notes: (Same as:MORPhine Sulfate) Start Date: 10/31/17 Stop Date: 11/03/17 Status: Discontinued morphine Sulfate 2 mg, 1 mL, Route: IVP, Drug form: INJ, ONCE, Dosing Weight 54.545, kg, Priority : STAT, Start date: 10/28/17 11:00:00 CONTINUOUS IMPROVEMENT CONSULTANT, Stop date: 10/28/17 11:00:00 CONTINUOUS IMPROVEMENT CONSULTANT Notes: (Same as:MORPhine Sulfate) Start Date: 10/28/17 Stop Date: 10/28/17 Status: Completed MS Contin 30 mg, Route: PO, Drug form: ERTAB, BID, Dosing Weight 55.909, kg, Start date: 0 11/03/17 17:00:00 CONTINUOUS IMPROVEMENT CONSULTANT, Duration: 30 day, Stop date: 12/03/17 9:00:00 CONTINUOUS IMPROVEMENT CONSULTANT Start Date: 11/03/17 Stop Date: 11/03/17 Status: Canceled naloxone 0.04 mg, 0.1 mL, Route: IVP, Drug form: INJ, Q2MIN, Dosing Weight 54.545, kg, NH N Narcotic Reversal, Start date: 10/28/17 15:56:00 CONTINUOUS IMPROVEMENT CONSULTANT, Duration: 30 day, Stop d ate: 11/27/17 15:55:00 CONTINUOUS IMPROVEMENT CONSULTANT Notes: Same as Narcan Start Date: 10/28/17 Stop Date: 11/02/17 Status: Discontinued naloxone 0.04 mg, 0.1 mL, Route: IVP, Drug form: INJ, Q2MIN, Dosing Weight 55.909, kg, NH N Narcotic Reversal, Start date: 11/02/17 9:31:00 CONTINUOUS IMPROVEMENT CONSULTANT, Duration: 30 day, Stop da te: 12/02/17 9:30:00 CONTINUOUS IMPROVEMENT CONSULTANT Notes: Same as Narcan Start Date: 11/02/17 Stop Date: 11/03/17 Status: Discontinued Nasal Mist 0.05% nasal spray 2 spray, Route: NASAL, Drug Form: SPRY, Dosing Weight 54.545, kg, BID, Start marcus e: 10/28/17 17:00:00 CONTINUOUS IMPROVEMENT CONSULTANT, Duration: 5 day, Stop date: 11/02/17 9:00:00 CONTINUOUS IMPROVEMENT CONSULTANT Notes: (Same as: Afrin) Start Date: 10/28/17 Stop Date: 11/02/17 Status: Completed [place] 10/325 oral tablet 1 tab, Route: PO, Drug Form: TAB, Dosing Weight 55.909, kg, Q6H, PRN Pain Score 6-10, Start date: 10/31/17 17:07:00 CONTINUOUS IMPROVEMENT CONSULTANT, Duration: 30 day, Stop date: 11/30/17 7:06:00 CONTINUOUS IMPROVEMENT CONSULTANT Notes: Do not exceed 4gm/day of acetaminophen. (Same as: [place] 325/10) Start Date: 10/31/17 Stop Date: 11/03/17 Status: Discontinued oxyCODONE 5 mg oral tablet 5 mg, 1 tab, Route: PO, Drug form: TAB, Q4H, Dosing Weight 55.909, kg, PRN Pain Score 7-10, Start date: 10/30/17 8:48:00 CONTINUOUS IMPROVEMENT CONSULTANT, Duration: 30 day, Stop date: 11/29 8:47:00 CONTINUOUS IMPROVEMENT CONSULTANT Notes: (Same as: Roxicodone) Start Date: 10/30/17 Stop Date: 10/31/17 Status: Discontinued oxyCODONE 5 mg oral tablet 5 mg, 1 tab, Route: PO, Drug form: TAB, Q6H, Dosing Weight 55.909, kg, PRN Pain Score 4-6, Start date: 10/28/17 18:20:00 CONTINUOUS IMPROVEMENT CONSULTANT, Duration: 30 day, Stop date: 11/27 18:19:00 CONTINUOUS IMPROVEMENT CONSULTANT Notes: (Same as: Roxicodone) Start Date: 10/28/17 Stop Date: 10/30/17 Status: Discontinued oxyCODONE 5 mg oral tablet 5 mg, Route: PO, Drug form: TAB, Q8H, Dosing Weight 55.909, kg, PRN Pain Score 7 -10, Start date: 10/30/17 8:37:00 CONTINUOUS IMPROVEMENT CONSULTANT, Duration: 30 day, Stop date: 11/29/17 8:3 6:00 CONTINUOUS IMPROVEMENT CONSULTANT Start Date: 10/30/17 Stop Date: 10/30/17 Status: Discontinued pantoprazole 40 mg, 1 tab, Route: PO, Drug form: ECTAB, Before Breakfast, Dosing Weight 55.90 9, kg, Priority: NOW, Start date: 10/29/17 8:20:00 CONTINUOUS IMPROVEMENT CONSULTANT, Duration: 30 day, Stop d ate: 11/28/17 7:30:00 CONTINUOUS IMPROVEMENT CONSULTANT Notes: Tablet should not be chewed or crushed.(Same as: Protonix) Start Date: 10/29/17 Stop Date: 11/03/17 Status: Discontinued potassium chloride 40 mEq, 2 tab, Route: PO, Drug form: ERTAB, ONCE, Dosing Weight 55.909, kg, Prio rity: STAT, Start date: 10/30/17 8:56:00 CONTINUOUS IMPROVEMENT CONSULTANT, Stop date: 10/30/17 8:56:00 CONTINUOUS IMPROVEMENT CONSULTANT Notes: (Same as: K-Dur 20) Start Date: 10/30/17 Stop Date: 10/30/17 Status: Completed senna 8.6 mg, 1 tab, Route: PO, Drug Form: TAB, Dosing Weight 55.909, kg, BID, NOW, St art date: 11/01/17 13:41:00 CONTINUOUS IMPROVEMENT CONSULTANT, Duration: 30 day, Stop date: 12/01/17 9:00:[address] Notes: (Same as: Senokot) Start Date: 11/01/17 Stop Date: 11/03/17 Status: Discontinued senna 6.6 mg, Route: PO, Dosing Weight 55.909, kg, BID, NOW, Start date: 11/01/17 10:0 5:00 CONTINUOUS IMPROVEMENT CONSULTANT, Duration: 30 day, Stop date: 12/01/17 9:00:00 CONTINUOUS IMPROVEMENT CONSULTANT Start Date: 11/01/17 Stop Date: 11/01/17 Status: Discontinued Zofran 4 mg, 2 mL, Route: IV, Drug form: INJ, ONCE, Dosing Weight 55.909, kg, Start marcus e: 11/02/17 21:11:00 CONTINUOUS IMPROVEMENT CONSULTANT, Stop date: 11/02/17 21:11:00 CONTINUOUS IMPROVEMENT CONSULTANT Notes: (Same as: Zofran) MEDICATION WASTE Product Size: 4 mgProduct Was kallie: ___ mg Start Date: 11/02/17 Stop Date: 11/02/17 Status: Completed Zofran 4 mg, 2 mL, Route: IVP, Drug form: INJ, ONCE, Dosing Weight 55.909, kg, Priority : NOW, Start date: 10/30/17 17:40:00 CONTINUOUS IMPROVEMENT CONSULTANT, Stop date: 10/30/17 17:40:00 CONTINUOUS IMPROVEMENT CONSULTANT Notes: (Same as: Zofran) MEDICATION WASTE Product Size: 4 mgProduct Was kallie: ___ mg Start Date: 10/30/17 Stop Date: 10/30/17 Status: Completed Zofran 4 mg, 2 mL, Route: IVP, Drug form: INJ, ONCE, Dosing Weight 55.909, kg, Priority : NOW, Start date: 11/01/17 10:58:00 CONTINUOUS IMPROVEMENT CONSULTANT, Stop date: 11/01/17 10:58:00 CONTINUOUS IMPROVEMENT CONSULTANT Notes: (Same as: Zofran) MEDICATION WASTE Product Size: 4 mgProduct Was kallie: ___ mg Start Date: 11/01/17 Stop Date: 11/01/17 Status: Completed Zofran 4 mg, 1 tab, Route: PO, Drug form: TAB, ONCE, Dosing Weight 55.909, kg, Start da te: 10/30/17 1:41:00 CONTINUOUS IMPROVEMENT CONSULTANT, Stop date: 10/30/17 1:41:00 CONTINUOUS IMPROVEMENT CONSULTANT Notes: (Same as: Zofran) Start Date: 10/30/17 Stop Date: 10/30/17 Status: Completed Zofran 4 mg, 2 mL, Route: IVP, Drug form: INJ, ONCE, Dosing Weight 54.545, kg, Priority : STAT, Start date: 10/28/17 11:44:00 CONTINUOUS IMPROVEMENT CONSULTANT, Stop date: 10/28/17 11:44:00 CONTINUOUS IMPROVEMENT CONSULTANT Notes: (Same as: Zofran) MEDICATION WASTE Product Size: 4 mgProduct Was kallie: ___ mg Start Date: 10/28/17 Stop Date: 10/28/17 Status: Completed Zofran ODT 4 mg, 1 tab, Route: PO, Drug form: TABDIS, Q8H, Dosing Weight 55.909, kg, PRN Na usea, Start date: 11/01/17 22:32:00 CONTINUOUS IMPROVEMENT CONSULTANT, Duration: 30 day, Stop date: 12/01/17 2 2:31:00 CONTINUOUS IMPROVEMENT CONSULTANT Notes: (Same as: Juan DIXON) Start Date: 11/01/17 Stop Date: 11/03/17 Status: Discontinued Results ELECTROLYTES 1 2 3 Most recent to oldest [Reference Range]: 140 mEq/L (11/03/17 5:30 AM) 147 mEq/L *HI* (11/02/17 3:44 AM) 142 mEq/L (11/01/17 4:07 AM) Sodium Lvl [135-145 mEq/L] 4.0 mEq/L (11/03/17 5:30 AM) 3.6 mEq/L (11/02/17 3:44 AM) 3.9 mEq/L (11/01/17 4:07 AM) Potassium Lvl [3.5-5.1 mEq/L] 108 mEq/L (11/03/17 5:30 AM) 110 mEq/L *HI* (11/02/17 3:44 AM) 108 mEq/L (11/01/17 4:07 AM) Chloride Lvl [95-109 mEq/L] 28 mEq/L (11/03/17 5:30 AM) 27 mEq/L (11/02/17 3:44 AM) 25 mEq/L (11/01/17 4:07 AM) CO2 [24-32 mEq/L] 8.0 mEq/L *LOW* (11/03/17 5:30 AM) 13.6 mEq/L (11/02/17 3:44 AM) 12.9 mEq/L (11/01/17 4:07 AM) AGAP [10.0-20.0 mEq/L] CHEM PANEL 1 2 3 Most recent to oldest [Reference Range]: 0.42 mg/dL *LOW* (11/03/17 5:30 AM) 0.34 mg/dL *LOW* (11/02/17 3:44 AM) 0.40 mg/dL *LOW* (11/01/17 4:07 AM) Creatinine Lvl [0.50-1.40 mg/dL] 170 mL/min/1.73m2 1 *NA* (11/03/17 5:30 AM) 181 mL/min/1.73m2 2 *NA* (11/02/17 3:44 AM) 173 mL/min/1.73m2 3 *NA* (11/01/17 4:07 AM) eGFR 3 mg/dL *LOW* (11/03/17 5:30 AM) 2 mg/dL *LOW* (11/02/17 3:44 AM) 6 mg/dL *LOW* (11/01/17 4:07 AM) BUN [7-22 mg/dL] 86 mg/dL (11/03/17 5:30 AM) 102 mg/dL *HI* (11/02/17 3:44 AM) 72 mg/dL (11/01/17 4:07 AM) Glucose Lvl [70-99 mg/dL] 6.2 g/dL *LOW* (10/28/17 3:29 PM) Total Protein [6.4-8.4 g/dL] 3.9 g/dL (10/28/17 3:29 PM) Albumin Lvl [3.5-5.0 g/dL] 2.3 g/dL *LOW* (10/28/17 3:29 PM) Globulin [2.7-4.2 g/dL] 1.7 *HI* (10/28/17 3:29 PM) A/G Ratio [0.7-1.6] 8.7 mg/dL (11/03/17 5:30 AM) 8.5 mg/dL (11/02/17 3:44 AM) 8.8 mg/dL (11/01/17 4:07 AM) Calcium Lvl [8.5-10.5 mg/dL] 17 unit/L (10/28/17 3:29 PM) ALT [0-65 unit/L] 26 unit/L (10/28/17 3:29 PM) AST [0-37 unit/L] 82 unit/L (10/28/17 3:29 PM) Alk Phos [39-136 unit/L] 506 unit/L *HI* (11/03/17 5:30 AM) 508 unit/L *HI* (11/02/17 3:44 AM) 630 unit/L *HI* (11/01/17 4:07 AM) LDH [98-192 unit/L] 1.5 mg/dL *HI* (10/28/17 3:29 PM) Bili Total [0.2-1.3 mg/dL] 0.3 mg/dL (10/28/17 3:29 PM) Bili Direct [0.0-0.3 mg/dL] 1.2 mg/dL *HI* (10/28/17 3:29 PM) Bili Indirect [0.0-1.0 mg/dL] 1.7 mMol/L (10/28/17 3:24 PM) 2.3 mMol/L *HI* (10/28/17 11:31 AM) Lactic Acid Lvl [0.5-2.2 mMol/L] 1Result Comment: The eGFR is calculated using [...] tiplied by the estimated BMI. CARDIAC ENZYMES 1 2 3 Most recent to oldest [Reference Range]: <0.02 ng/mL (10/28/17 3:29 PM) Troponin-I [0.00-0.40 ng/mL] URINE CHEM 1 2 3 Most recent to oldest [Reference Range]: Negative (10/28/17 5:15 PM) U Preg [Negative] URINE AND STOOL 1 2 3 Most recent to oldest [Reference Range]: Clear (10/28/17 5:15 PM) UA Turbidity [Clear] Light Yellow *NA* (10/28/17 5:15 PM) UA Color [Yellow] 6.5 (10/28/17 5:15 PM) UA pH [5.0-8.0] 1.006 (10/28/17 5:15 PM) UA Spec Grav [<=1.030] Negative mg/dL *NA* (10/28/17 5:15 PM) UA Glucose [Negative mg/dL] Trace *ABN* (10/28/17 5:15 PM) UA Blood [Negative] Negative mg/dL *NA* (10/28/17 5:15 PM) UA Ketones [Negative mg/dL] Negative mg/dL (10/28/17 5:15 PM) UA Protein [Negative mg/dL] <=1.0 mg/dL *NA* (10/28/17 5:15 PM) UA Urobilinogen [0.1-1.0 mg/dL] Negative *NA* (10/28/17 5:15 PM) UA Bili [Negative] Negative (10/28/17 5:15 PM) UA Leuk Est [Negative] Negative (10/28/17 5:15 PM) UA Nitrite [Negative] 1 /HPF (10/28/17 5:15 PM) UA WBC [0-5 /HPF] 1 /HPF (10/28/17 5:15 PM) UA RBC [0-2 /HPF] Occasional /HPF *NA* (10/28/17 5:15 PM) UA Bacteria [None Seen /HPF] Occasional /LPF *NA* (10/28/17 5:15 PM) UA Sq Epi [Few /LPF] Few /LPF *NA* (10/28/17 5:15 PM) UA Mucus [None Seen /LPF] HEMATOLOGY 1 2 3 Most recent to oldest [Reference Range]: 11.3 K/CMM *HI* (11/03/17 5:30 AM) 7.8 K/CMM (11/02/17 3:44 AM) 11.9 K/CMM *HI* (11/01/17 4:07 AM) WBC [3.7-10.4 K/CMM] 2.85 M/CMM *LOW* (11/03/17 5:30 AM) 2.74 M/CMM *LOW* (11/02/17 3:44 AM) 2.89 M/CMM *LOW* (11/01/17 4:07 AM) RBC [4.20-5.40 M/CMM] 6.3 g/dL 1 *CRIT* (11/03/17 5:30 AM) 6.1 g/dL 2 *CRIT* (11/02/17 3:44 AM) 6.4 g/dL 3 *CRIT* (11/01/17 4:07 AM) Hgb [12.0-16.0 g/dL] 20.0 % 4 *CRIT* (11/03/17 5:30 AM) 19.1 % 5 *CRIT* (11/02/17 3:44 AM) 20.0 % *CRIT* (11/01/17 4:07 AM) Hct [36.0-48.0 %] 69.9 fL *LOW* (11/03/17 5:30 AM) 69.7 fL *LOW* (11/02/17 3:44 AM) 69.4 fL *LOW* (11/01/17 4:07 AM) MCV [80.0-98.0 fL] 22.0 pg *LOW* (11/03/17 5:30 AM) 22.3 pg *LOW* (11/02/17 3:44 AM) 22.1 pg *LOW* (11/01/17 4:07 AM) MCH [27.0-31.0 pg] 31.5 g/dL *LOW* (11/03/17 5:30 AM) 31.9 g/dL *LOW* (11/02/17 3:44 AM) 31.8 g/dL *LOW* (11/01/17 4:07 AM) MCHC [32.0-36.0 g/dL] 16.5 % *HI* (11/03/17 5:30 AM) 16.1 % *HI* (11/02/17 3:44 AM) 16.6 % *HI* (11/01/17 4:07 AM) RDW [11.5-14.5 %] 8.2 fL (11/03/17 5:30 AM) 8.2 fL (11/02/17 3:44 AM) 8.9 fL (11/01/17 4:07 AM) MPV [7.4-10.4 fL] 216 K/CMM (11/03/17 5:30 AM) 155 K/CMM (11/02/17 3:44 AM) 149 K/CMM (11/01/17 4:07 AM) Platelet [133-450 K/CMM] 57.4 % (11/03/17 5:30 AM) 46.0 % (11/02/17 3:44 AM) 73.0 % (11/01/17 4:07 AM) Segs [45.0-75.0 %] 0.0 % (11/01/17 4:07 AM) 0.0 % (10/31/17 3:03 AM) 0.0 % (10/29/17 4:20 AM) Bands [0.0-11.0 %] 29.8 % (11/03/17 5:30 AM) 38.6 % (11/02/17 3:44 AM) 20.0 % (11/01/17 4:07 AM) Lymphocytes [20.0-40.0 %] 0.0 % (11/01/17 4:07 AM) 0.0 % (10/31/17 3:03 AM) 0.0 % (10/29/17 4:20 AM) Atypical Lymphs [<=0.0 %] 9.4 % (11/03/17 5:30 AM) 9.4 % (11/02/17 3:44 AM) 6.0 % (11/01/17 4:07 AM) Monocytes [2.0-12.0 %] 3.2 % (11/03/17 5:30 AM) 4.7 % *HI* (11/02/17 3:44 AM) 1.0 % (11/01/17 4:07 AM) Eosinophils [0.0-4.0 %] 0.2 % (11/03/17 5:30 AM) 1.3 % *HI* (11/02/17 3:44 AM) 0.5 % (10/30/17 3:01 AM) Basophils [0.0-1.0 %] 2.0 % *HI* (10/28/17 11:31 AM) Metamyelocytes [0.0-1.0 %] 6.5 K/CMM (11/03/17 5:30 AM) 3.6 K/CMM (11/02/17 3:44 AM) 8.7 K/CMM *HI* (11/01/17 4:07 AM) Segs-Bands # [1.5-8.1 K/CMM] 3.4 K/CMM (11/03/17 5:30 AM) 3.0 K/CMM (11/02/17 3:44 AM) 2.4 K/CMM (11/01/17 4:07 AM) Lymphocytes # [1.0-5.5 K/CMM] 1.1 K/CMM *HI* (11/03/17 5:30 AM) 0.7 K/CMM (11/02/17 3:44 AM) 0.7 K/CMM (11/01/17 4:07 AM) Monocytes # [0.0-0.8 K/CMM] 0.4 K/CMM (11/03/17 5:30 AM) 0.4 K/CMM (11/02/17 3:44 AM) 0.1 K/CMM (11/01/17 4:07 AM) Eosinophils # [0.0-0.5 K/CMM] 0.1 K/CMM (11/02/17 3:44 AM) Basophils # [0.0-0.2 K/CMM] 3 /100WB *NA* (11/01/17 4:07 AM) 10 /100WB *NA* (10/31/17 3:03 AM) 4 /100WB *NA* (10/29/17 4:20 AM) NRBC 100 *NA* (11/01/17 4:07 AM) Tot Cell Ct 1+ *ABN* (11/03/17 5:30 AM) 2+ *ABN* (10/31/17 3:03 AM) 1+ *ABN* (10/28/17 11:31 AM) Anisocyte [None Seen] Moderate *ABN* (11/03/17 5:30 AM) Moderate *ABN* (11/02/17 3:44 AM) Moderate *ABN* (10/31/17 3:03 AM) Polychrom [None Seen] 1+ (11/03/17 5:30 AM) 1+ (11/02/17 3:44 AM) 1+ (11/01/17 4:07 AM) Hypochrom [None Seen] 1+ *ABN* (11/01/17 4:07 AM) Macrocyte [None Seen] 2+ *ABN* (11/03/17 5:30 AM) 2+ *ABN* (11/02/17 3:44 AM) 1+ *ABN* (11/01/17 4:07 AM) Microcyte [None Seen] Moderate *ABN* (11/02/17 3:44 AM) Moderate *ABN* (11/01/17 4:07 AM) Target Cell [None Seen] Slight *Unknown* (10/31/17 3:03 AM) Target Cell Occasional *ABN* (11/03/17 5:30 AM) Occasional *ABN* (11/02/17 3:44 AM) Slight *ABN* (11/01/17 4:07 AM) Sickle Cell [None Seen] Rare *ABN* (11/02/17 3:44 AM) Spherocyte [None Seen] Occasional *ABN* (11/02/17 3:44 AM) Occasional *ABN* (10/30/17 3:01 AM) HJ Body [None Seen] Slight *Unknown* (10/31/17 3:03 AM) Toxic Gran Moderate *ABN* (10/28/17 11:31 AM) Toxic Gran [None Seen] Present *ABN* (11/02/17 3:44 AM) Present *ABN* (10/30/17 3:01 AM) Rouleaux [None Seen] Occasional *ABN* (11/02/17 3:44 AM) Occasional *ABN* (11/01/17 4:07 AM) Occasional *ABN* (10/30/17 3:01 AM) Anay Body [None Seen] 1-3 per HPF (11/03/17 5:30 AM) 1-3 per HPF (11/02/17 3:44 AM) 1-3 per HPF (11/01/17 4:07 AM) Schistocyte [None Seen] Normal (11/01/17 4:07 AM) Normal (10/31/17 3:03 AM) Normal (10/28/17 11:31 AM) Plt Morph 9.2 % *HI* (11/03/17 5:30 AM) 6.3 % *HI* (11/02/17 3:44 AM) 6.6 % *HI* (10/31/17 3:03 AM) Retic Auto [0.5-1.5 %] 18.2 seconds *HI* (10/29/17 4:20 AM) PT [12.0-14.7 seconds] 1.50 *HI* (10/29/17 4:20 AM) INR [0.85-1.17] 36.9 seconds *HI* (10/29/17 4:20 AM) PTT [22.9-35.8 seconds] 1Result Comment: Critical Result(s) called to Alton at 11/03/2017 06:24 by PG. Read back OK. 2Result Comment: Critical Result(s) called to VAISHNAVI Jade at 11/02/2017 04:53 by AAA. Read back OK. 3Result Comment: Critical Result(s) called to Yoanna Villalba at 11/01/2017 07:08 by fvj. Read back OK. 4Result Comment: Critical Result(s) called to Alton at 11/03/2017 06:25 by PG. Read back OK. 5Result Comment: Critical Result(s) called to SMITH. Jade at 11/02/2017 04:53 by AAA. Read back OK. VIRAL - SEROLOGY 1 2 3 Most recent to oldest [Reference Range]: Negative (10/28/17 11:31 AM) Influ A [Negative] Negative (10/28/17 11:31 AM) Influ B [Negative] Immunizations Not Given Vaccine Date Status Refusal Reason pneumococcal 13-valent vaccine 07/05/17 Not Given Patient Refuses Procedures No data available for this section Social History Social History Type Response Substance Abuse Use: None. Alcohol Never Smoking Status Never smoker; Exposure to Tobacco Smoke None; Cigarette Smoking Last 365 Days No; Reg Smoking Cessation Counseling No entered on: 11/05/17 Assessment and Plan Extracted from: Title: Student Progress Note Author: Ursula Schwartz Date: 11/03/17 Progress Note - Daily [facility] Completed: Monday, NOV 03, 2017, 11:20 by Ursula Schwartz RM: C337 - 00, [id number] AG [id number] (: 1995) F Attending: Jeana Kimball MDPhone: Service: Internal Medicine Reason for Admission: SICKLE CELL CRISIS Working DRG: Red blood cell disorders w/[place] [facility] [place] Code status: Full Code [Ordered]Current diet: Isolation: None Documented Allergies: Augmentin(hives) SUBJECTIVE The patient states her pain is better controlled today and she is ready to go home. She experienced fatigue and dizziness when walking yesterday, but denies chest pain, headache, and SOB. She says her nausea has improved from yesterday. OBJECTIVE T: 98.5HR: 75BP: 100/65RR: 20SpO2:100 Physical Exam General: Awake, alert, oriented x4, in no acute distress HEENT: normocephalic, atraumatic, EOMI, PERRL, mucous membranes moist Cardiovascular: Regular rate and rhythm, no murmurs, gallops, or rubs Respiratory: Lungs CTA, vesicular breath sounds throughout Abdomen: Soft, nontender to palpation Extremities: Tenderness to papation in shoulders, knees and ankles. Full ROM. Strength 5/5 throughout Integumentary: no rashes, erythema, or jaundice Neurologic: no focal neurologic deficits 24hr Labs 11/03 0530 Glucose Lvl86 BUN3 L Creatinine Lvl0.42 L Sodium Fpc137 Potassium Lvl 4.0 Chloride Nng594 CO228 AGAP8.0 L Calcium Lvl8.7 oUZO526 XDG143 H WBC11.3 H RBC2.85 L Hgb6.3 C Hct20.0 C MCV69.9 L MCH22.0 L MCHC31.5 L RDW16.5 H Monqvlbd254 MPV8.2 Retic Auto9.2 H Segs57.4 Monocytes9.4 Uukklveqhuv06.8 Eosinophils3.2 Basophils0.2 Segs-Bands #6.5 Lymphocytes #3.4 Monocytes #1.1 H Eosinophils #0.4 Anisocyte1+ Microcyte2+ Hypochrom1+ PolychromModerate Schistocyte1-3 per HPF Sickle CellOccasional Medications (17) Active Scheduled Meds (9): 10/30/17 acetaminophen 650 mg PO Q6H 10/28/17 docusate 100 mg PO BID 10/28/17 enoxaparin (Lovenox) 40 mg SUB-Q [id number] 10/29/17 folic acid 1 mg PO Daily 10/28/17 gabapentin (gabapentin 300 mg oral capsule) 300 mg PO Q8H 10/31/17 morphine Sulfate (morphine 15 mg oral tablet, extended release) 30 mg PO Q12H 10/29/17 pantoprazole 40 mg PO Before Breakfast 11/01/17 polyethylene glycol 3350 (MiraLax) 17 gm PO Daily 11/01/17 senna 8.6 mg PO BID Unscheduled Meds: None PRN Meds (6): 10/31/17 acetaminophen-hydrocodone ([place] 10/325 oral tablet) 1 tab PO Q6H 11/01/17 diphenhydrAMINE (Benadryl) 25 mg PO TID 10/31/17 ibuprofen 600 mg PO Q6H 10/31/17 morphine Sulfate (morphine 15 mg oral tablet, immediate release) 30 mg PO Q6H 11/02/17 naloxone 0.04 mg IVP Q2MIN 11/01/17 ondansetron (Zofran ODT) 4 mg PO Q8H One Time Meds (2): 11/03/17 (Completed) lactulose (lactulose 10 g/15 mL oral syrup) 10 gm PO ONCE 11/02/17 (Completed) ondansetron (Zofran) 4 mg IV ONCE Continuous Infusions: None ASSESSMENT 22 year old female with a PMH SSD presents in pain crisis. Pain well controlled and patient is ready to be discharged. PLAN & TREATMENT 1. Sickle cell pain crisis -resume home medication pain regimen -Acetaminophen 650 mg PO q6h - Gabapentin 300mg PO q8h -morphone sulfate 30 mg PO q12 2. Anemia -Hgb 6.3 -low but stable 3. Bloody stool -patient refused rectal exam -no bowel movements since 4. SIRS- resolved -tachycardia resolved -leukocytosis resolved 5. Memory loss -f/u outpatient *This is a medical student progress note. Please refer to resident/attending note for any plans of treatment* Extracted from: Title: History and Physical Author: Star Powell MD Date: 10/28/17 22 y/o F presents in acute sickle cells Crisis 1.Systemic inflammatory response syndrome (SIRS) - Patient Afebrile, Tachycardic and tachypnic - No source of infection at this time - F/U Blood Culture and Blood clx - F/U LA 2.Acute sickle cell crisis - Continue IVF hydration w/ LR @125 cc/hr - Administer Ibuprofen, tylenoland [employer] Pump - F/U Reticulocyte count - F/U LDH 3.SOB (shortness of breath) - Incentive spirometry Q2H - Continue O2 Via NC - Continue Nasal Mist spray - Low suspicion for Acute Chest syndrome at this time 4.Amenorrhea - f/u Urine test - f/u w/ OGYN as OP Lovenox No social barrier to discharge. Patient can go home after resolution of acute pain crisis TEACHING ATTENDING ATTESTATION STATEMENT: I have seen & examined this patient & discussed the findings on this patient in detail with the team on teaching rounds. I have reviewed the note above and I agree with the findings and plan of care outlined by Dr. Powell
--- OUTSIDE RECORDS SUMMARY | 2019-03-11 17:22 | XMS REPORT | Summary of Care ---
Author Author [facility] Organization [facility] Address Unknown Phone Unavailable Encounter GINGER Hobbs(ARSENIO) [id number] Date(s): 07/08/17 - 07/12/17 [facility] [address] [facility] provided by [facility] [place] [address]- Discharge Disposition: Home or Self Care Attending Physician: Jose Roberto Holt MD Admitting Physician: Jose Roberto Holt MD Vital Signs 1 2 3 Most recent to oldest [Reference Range]: 162.56 cm (07/09/17 9:30 AM) 162.56 cm (07/08/17 3:38 PM) 162.56 cm (07/08/17 8:42 AM) Height 97.9 DegF (07/12/17 12:09 PM) 98 DegF (07/12/17 9:07 AM) 98.9 DegF (07/12/17 4:57 AM) Temperature Oral [96.4-99.1 DegF] 120/71 mmHg (07/12/17 12:09 PM) 116/64 mmHg (07/12/17 9:07 AM) 109/62 mmHg (07/12/17 4:57 AM) Blood Pressure [90-140/60-90 mmHg] 18 BRMIN (07/12/17 12:09 PM) 18 BRMIN (07/12/17 9:07 AM) 18 BRMIN (07/12/17 4:57 AM) Respiratory Rate [14-20 BRMIN] 80 bpm (07/12/17 12:09 PM) 77 bpm (07/12/17 9:07 AM) 88 bpm (07/12/17 4:57 AM) Peripheral Pulse Rate [60-100 bpm] 56.818 kg (07/09/17 9:30 AM) 56.818 kg (07/08/17 3:38 PM) 58.636 kg (07/08/17 8:42 AM) Weight 21.5 m2 (07/08/17 3:38 PM) 22.19 m2 (07/08/17 8:42 AM) Body Mass Index Problem List Condition Effective Dates Status Health Status Informant Anxiety disorder, Active unspecified(Confirme d) Cardiomegaly(Confirm Active ed) Sickle cell Active crisis(Confirmed) Depression(Confirmed Active ) Allergies, Adverse Reactions, Alerts Substance Reaction Severity Status Augmentin hives Active Dilaudid extreme memory loss Active Medications acetaminophen 325 mg oral tablet 325 mg, 1 tab, Route: PO, Drug form: TAB, Q6H, Dosing Weight 56.818, kg, PRN For Temp > 100.4 F, Start date: 07/09/17 5:36:00 CDT, Duration: 30 day, Stop date: 08/08/17 5:35:00 CDT Notes: Do not exceed 4 gm/day. (Same as: Tylenol) Start Date: 07/09/17 Stop Date: 07/09/17 Status: Discontinued Bactrim DS 800 mg- 160 mg oral tablet 2 tab, PO, [id number], X 7 day, # 28 tab, 0 Refill(s) Start Date: 07/12/17 Stop Date: 07/19/17 Status: Ordered Bactrim DS 800 mg- 160 mg oral tablet 2 tab, Route: PO, Drug Form: TAB, Dosing Weight 56.818, kg, [id number], Start date: 07/12/17 11:00:00 CDT, Duration: 4 day, Stop date: 07/15/17 23:00:00 CDT Notes: One DS tablet=trimethoprim 160mg + sulfamethoxazole 800 mgDose based on t rimethoprim component On empty stomach with a glass of water. (Same As: Bactrim DS, Septra DS) Start Date: 07/12/17 Stop Date: 07/12/17 Status: Discontinued cefepime 1 gm, Route: IVPB, Drug form: INJ, [id number], Dosing Weight 56.818, kg, (CrCl >/=50 ml/min), Start date: 07/09/17 10:00:00 CDT, Duration: 7 day, Stop date: 07/16/17 2:00:00 CDT, ABX Indication: Pneumonia Notes: (Same As: Maxipime) MEDICATION WASTE Product Size: 1000 mgProduc t Wasted: ___ mg Start Date: 07/09/17 Stop Date: 07/12/17 Status: Discontinued diphenhydrAMINE 25 mg oral tablet, disintegrating 25 mg, 1 cap, Route: PO, Drug form: CAP, TID, Dosing Weight 58.636, kg, PRN Itch ing, Start date: 07/08/17 13:41:00 CDT, Duration: 30 day, Stop date: 08/07/17 13 :40:00 CDT Notes: (Same as: Sageryl) Start Date: 07/08/17 Stop Date: 07/12/17 Status: Discontinued docusate sodium 100 mg oral capsule 100 mg, Route: PO, Drug form: CAP, BID, Dosing Weight 58.636, kg, PRN Constipati on, Start date: 07/08/17 13:50:00 CDT, Duration: 30 day, Stop date: 08/07/17 13: 49:00 CDT Start Date: 07/08/17 Stop Date: 07/08/17 Status: Discontinued docusate-senna 50 mg-8.6 mg oral tablet 2 tab, Route: PO, Drug Form: TAB, Dosing Weight 58.636, kg, BID, PRN Constipatio n, Start date: 07/08/17 13:38:00 CDT, Duration: 30 day, Stop date: 08/07/17 13:3 7:00 CDT Notes: (Same as Senkathrineot-S) Equiv. to Nasima-Colace. Start Date: 07/08/17 Stop Date: 07/12/17 Status: Discontinued docusate-senna 50 mg-8.6 mg oral tablet 1 tab, Route: PO, Drug Form: TAB, Dosing Weight 56.818, kg, Daily, Start date: 0 07/10/17 9:00:00 CDT, Duration: 30 day, Stop date: 08/08/17 9:00:00 CDT Notes: (Same as Senokot-S) Equiv. to Nasima-Colace. Start Date: 07/10/17 Stop Date: 07/12/17 Status: Discontinued folic acid 1 mg, 1 tab, Route: PO, Drug form: TAB, Daily, Dosing Weight 58.636, kg, Start d ate: 07/09/17 9:00:00 CDT, Duration: 30 day, Stop date: 08/07/17 9:00:00 CDT Notes: (Same as: Folvite) Start Date: 07/09/17 Stop Date: 07/12/17 Status: Discontinued ibuprofen 400 mg oral tablet 800 mg, 2 tab, Route: PO, Drug form: TAB, TID-Meals, Dosing Weight 56.818, kg, S tart date: 07/11/17 12:00:00 CDT, Duration: 30 day, Stop date: 08/10/17 8:00:00 CDT Notes: (Same as: Motrin)"Do Not Crush" Give with food. Start Date: 07/11/17 Stop Date: 07/12/17 Status: Discontinued ibuprofen 400 mg oral tablet 800 mg=2 tab, PO, TID-Meals, X 7 day, # 42 tab, 0 Refill(s) Start Date: 07/12/17 Stop Date: 07/19/17 Status: Ordered ketAMINE 30 mg, Route: IV, ONCE, Dosing Weight 58.636, kg, Start date: 07/08/17 14:05:00 CDT, Stop date: 07/08/17 14:05:00 CDT Start Date: 07/08/17 Stop Date: 07/08/17 Status: Completed Lactated Ringers (Bolus) IV 1,000 mL, 1,000 ml/hr, Infuse Over: 1 hr, Route: IV, 1,000, Drug form: INJ, ONCE , Priority: STAT, Dosing Weight 58.636 kg, Start date: 07/08/17 11:46:00 CDT, Du ration: 1 doses or times, Stop date: 07/08/17 11:46:00 CDT Start Date: 07/08/17 Stop Date: 07/08/17 Status: Completed Lactated Ringers (Bolus) IV 1,000 mL, 1,000 ml/hr, Infuse Over: 1 hr, Route: IV, 1,000, Drug form: INJ, ONCE , Priority: STAT, Dosing Weight 58.636 kg, Start date: 07/08/17 8:56:00 CDT, Dur ation: 1 doses or times, Stop date: 07/08/17 8:56:00 CDT Start Date: 07/08/17 Stop Date: 07/08/17 Status: Completed levofloxacin 750 mg, 1 tab, Route: PO, Drug form: TAB, ONCE, Dosing Weight 58.636, kg, Start date: 07/08/17 13:38:00 CDT, Stop date: 07/08/17 13:38:00 CDT, ABX Indication: P neumonia Notes: Do not give w/antacids, dairy pdt & mineralsTake 1 hr before or 2 hr after dairy products Start Date: 07/08/17 Stop Date: 07/08/17 Status: Completed levofloxacin 750 mg, 1 tab, Route: PO, Drug form: TAB, [id number], Dosing Weight 56.818, kg, Sta rt date: 07/12/17 11:00:00 CDT, Duration: 4 day, Stop date: 07/15/17 17:00:00 CD T, ABX Indication: Pneumonia Notes: Do not give w/antacids, dairy pdt & mineralsTake 1 hr before or 2 hr after dairy products Start Date: 07/12/17 Stop Date: 07/12/17 Status: Discontinued levofloxacin 750 mg oral tablet 750 mg=1 tab, PO, [id number], X 7 day, # 7 tab, 0 Refill(s) Start Date: 07/12/17 Stop Date: 07/19/17 Status: Ordered Lovenox 40 mg, 0.4 mL, Route: SUB-Q, Drug form: INJ, [id number], Dosing Weight 56.818, kg, Start date: 07/11/17 18:00:00 CDT, Duration: 30 day, Stop date: 08/09/17 18:00: 00 CDT Notes: (Same as: Lovenox) Start Date: 07/11/17 Stop Date: 07/12/17 Status: Discontinued morphine Sulfate 2 mg, 0.5 mL, Route: IVP, Drug form: SOLN, ONCE, Dosing Weight 56.818, kg, Start date: 07/08/17 22:34:00 CDT, Stop date: 07/08/17 22:34:00 CDT Notes: (Same as:MORPhine Sulfate) Start Date: 07/08/17 Stop Date: 07/09/17 Status: Completed morphine Sulfate 10 mg, 2.5 mL, Route: IVP, Drug form: SOLN, ONCE, Dosing Weight 58.636, kg, Prio rity: STAT, Start date: 07/08/17 11:03:00 CDT, Stop date: 07/08/17 11:03:00 CDT Notes: (Same as:MORPhine Sulfate) Start Date: 07/08/17 Stop Date: 07/08/17 Status: Completed morphine Sulfate 8 mg, Route: IVP, ONCE, Dosing Weight 58.636, kg, Priority: STAT, Start date: 10:15:00 CDT, Stop date: 07/08/17 10:15:00 CDT Start Date: 07/08/17 Stop Date: 07/08/17 Status: Completed morphine Sulfate 10 mg, Route: IVP, ONCE, Dosing Weight 58.636, kg, Priority: STAT, Start date: 0 07/08/17 13:53:00 CDT, Stop date: 07/08/17 13:53:00 CDT Start Date: 07/08/17 Stop Date: 07/08/17 Status: Completed morphine Sulfate 2 mg, 0.5 mL, Route: IVP, Drug form: SOLN, ONCE, Dosing Weight 56.818, kg, Start date: 07/09/17 4:30:00 CDT, Stop date: 07/09/17 4:30:00 CDT Notes: (Same as:MORPhine Sulfate) Start Date: 07/09/17 Stop Date: 07/09/17 Status: Completed morphine Sulfate 4 mg, Route: IVP, ONCE, Dosing Weight 58.636, kg, Priority: STAT, Start date: 13:36:00 CDT, Stop date: 07/08/17 13:36:00 CDT Start Date: 07/08/17 Stop Date: 07/08/17 Status: Discontinued morphine Sulfate 8 mg, 1 mL, Route: IVP, Drug form: INJ, ONCE, Dosing Weight 58.636, kg, Priority : STAT, Start date: 07/08/17 8:54:00 CDT, Stop date: 07/08/17 8:54:00 CDT Notes: (Same as: MORPhine Sulfate) Start Date: 07/08/17 Stop Date: 07/08/17 Status: Completed MORPhine sulfate DEBURR OPERATOR 30 mg/30 ml INJ syringe 30 mg 30 mg, 30 mL, Route: IV, Initial Loading Dose: 2 mg, DEBURR OPERATOR Dose: 0.5 mg, DEBURR OPERATOR Lock out: 15 minutes, Continuous Basal Rate: 0 mg, 4 Hour Limit (In MG): 8, Drug Form : INJ, Continuous, Start date: 07/08/17 14:00:00 CDT Notes: Dose: 1mg Delay: 10 minutes Basal rate: NONE 4hr limit: 24mg(Same as:Cristin-Kelly) Start Date: 07/08/17 Stop Date: 07/12/17 Status: Discontinued MS Contin 15 mg, 1 tab, Route: PO, Drug form: ERTAB, ONCE, Dosing Weight 56.818, kg, Start date: 07/12/17 10:50:00 CDT, Stop date: 07/12/17 10:50:00 CDT Notes: Do not crush (Same as:Oramorph SR, MS Contin) Start Date: 07/12/17 Stop Date: 07/12/17 Status: Completed MS Contin 30 mg, 1 tab, Route: PO, Drug form: ERTAB, Q12H, Dosing Weight 56.818, kg, Start date: 07/09/17 12:35:00 CDT, Duration: 30 day, Stop date: 08/08/17 9:00:00 CDT Notes: Do not crush (Same as:Oramorph SR, MS Contin) Start Date: 07/09/17 Stop Date: 07/09/17 Status: Discontinued MS Contin 15 mg, 1 tab, Route: PO, Drug form: ERTAB, Q12H, Dosing Weight 56.818, kg, Start date: 07/12/17 21:00:00 CDT, Duration: 30 day, Stop date: 08/11/17 9:00:00 CDT Notes: Do not crush (Same as:Oramorph SR, MS Contin) Start Date: 07/12/17 Stop Date: 07/12/17 Status: Canceled naloxone 0.04 mg, 0.1 mL, Route: IVP, Drug form: INJ, Q2MIN, Dosing Weight 58.636, kg, MA N Narcotic Reversal, Start date: 07/08/17 13:50:00 CDT, Duration: 30 day, Stop d ate: 08/07/17 13:49:00 CDT Notes: Same as Narcan Start Date: 07/08/17 Stop Date: 07/12/17 Status: Discontinued Ponca 10/325 oral tablet 1 tab, Route: PO, Drug Form: TAB, Dosing Weight 56.818, kg, Q6Hnow, Start date: 07/10/17 8:16:00 CDT, Duration: 30 day, Stop date: 08/09/17 2:16:00 CDT Start Date: 07/10/17 Stop Date: 07/12/17 Status: Discontinued Ponca 10/325 oral tablet 1 tab, PO, Q6Hnow, 0 Refill(s) Start Date: 07/12/17 Status: Ordered Ponca 10/325 oral tablet 1 tab, Route: PO, Dosing Weight 56.818, kg, Q6H, Start date: 07/10/17 12:00:00 C DT, Duration: 30 day, Stop date: 08/09/17 6:00:00 CDT Start Date: 07/10/17 Stop Date: 07/10/17 Status: Canceled pantoprazole 40 mg oral enteric coated tablet 40 mg=1 tab, PO, Daily, # 30 tab, 0 Refill(s) Start Date: 07/12/17 Status: Ordered potassium chloride 40 mEq, 2 tab, Route: PO, Drug form: ERTAB, ONCE, Dosing Weight 56.818, kg, Star t date: 07/12/17 7:45:00 CDT, Stop date: 07/12/17 7:45:00 CDT Notes: (Same as: K-Dur 20)"Do Not Crush" With food and full glass of water Start Date: 07/12/17 Stop Date: 07/12/17 Status: Completed potassium chloride 20 mEq oral tablet, extended release 40 mEq, 2 tab, Route: PO, Drug form: ERTAB, ONCE, Dosing Weight 56.818, kg, Star t date: 07/09/17 16:34:00 CDT, Stop date: 07/09/17 16:34:00 CDT Notes: (Same as: K-Dur 20)"Do Not Crush" With food and full glass of water Start Date: 07/09/17 Stop Date: 07/09/17 Status: Completed Protonix 40 mg, 1 tab, Route: PO, Drug form: ECTAB, Before Dinner, Dosing Weight 56.818, kg, Start date: 07/12/17 16:30:00 CDT, Duration: 14 day, Stop date: 07/25/17 16: 30:00 CDT Notes: Tablet should not be chewed or crushed.(Same as: Protonix) Start Date: 07/12/17 Stop Date: 07/12/17 Status: Discontinued Saline Flush 0.9% 10 mL, Route: IVP, Drug Form: INJ, Dosing Weight 58.636, kg, PRN, PRN Line Flush , Start date: 07/08/17 8:54:00 CDT, Duration: 30 day, Stop date: 08/07/17 8:53:0 0 CDT Notes: (Same as: BD Posiflush) Start Date: 07/08/17 Stop Date: 07/12/17 Status: Discontinued senna 8.6 mg oral tablet 2 tab, Route: PO, Dosing Weight 58.636, kg, Bedtime, PRN Constipation, Start marcus e: 07/08/17 13:50:00 CDT, Duration: 30 day, Stop date: 08/07/17 13:49:00 CDT Start Date: 07/08/17 Stop Date: 07/08/17 Status: Discontinued sodium chloride 0.45% 1000 ml INJ 1,000 mL 1,000 mL, Rate: 125 ml/hr, Infuse over: 8 hr, Route: IV, Dosing Weight 58.636 kg , Total Volume: 1,000, Start date: 07/08/17 13:50:00 CDT, Duration: 30 day, Stop date: 08/07/17 13:49:00 CDT Start Date: 07/08/17 Stop Date: 07/12/17 Status: Discontinued sodium chloride 0.9% INJ 250 mL 250 mL, Rate: cnc machinist 2nd shift for use with blood product administration, Dosing Weight 5 8.636, kg, Route: IV, Total Volume: 250, Start Date: 07/08/17 13:50:00 CDT, Dura tion: 1 day, Stop date: 07/09/17 13:49:00 CDT, Replace Every: 6 hr Start Date: 07/08/17 Stop Date: 07/09/17 Status: Completed sodium chloride 0.9% INJ 250 mL 250 mL, Rate: Knit Tubing Dyer for use with blood product administration., Dosing Weight 56.818, kg, Route: IV, Total Volume: 250, Priority: Routine, Start Date: 7 10:55:00 CDT, Duration: 1 day, Stop date: 07/10/17 10:54:00 CDT, Replace Every : 24 hr Start Date: 07/09/17 Stop Date: 07/10/17 Status: Completed vancomycin 1,000 mg, Route: IVPB, Drug form: INJ, ONCE, Dosing Weight 56.818, kg, Start marcus e: 07/09/17 11:18:00 CDT, Stop date: 07/09/17 11:18:00 CDT, ABX Indication: Pneu monia Start Date: 07/09/17 Stop Date: 07/09/17 Status: Discontinued vancomycin 1,000 mg, Route: IVPB, Drug form: INJ, ONCE, Dosing Weight 56.818, kg, Start marcus e: 07/09/17 11:15:00 CDT, Stop date: 07/09/17 11:15:00 CDT, ABX Indication: Pneu monia Start Date: 07/09/17 Stop Date: 07/09/17 Status: Discontinued vancomycin + sodium chloride 0.9% 250 mL INJ (for IV set) 250 mL 750 mg, Route: IVPB, [id number], Start date: 07/09/17 19:00:00 CDT, Duration: 30 day , Stop date: 08/08/17 11:00:00 CDT, ABX Indication: Pneumonia Notes: TIME CRITICAL MEDICATION(Same As: Vancocin)Infusion rate< 1000 mg: infuse over 1 [id number] - 1500 mg: infuse over 1.5 [id number] - 2000 mg: infuse over 2 hours> 2001 mg: infuse over 2.5 hours MEDICATION WASTE Product Size: 1000 mgProduct Wasted: ___ mg Start Date: 07/09/17 Stop Date: 07/10/17 Status: Discontinued vancomycin + sodium chloride 0.9% INJ 250 mL 1.5 gm, Route: IVPB, ONCE, Start date: 07/09/17 11:00:00 CDT, Stop date: 7 11:00:00 CDT, ABX Indication: Pneumonia Notes: TIME CRITICAL MEDICATION(Same As: Vancocin)Infusion rate< 1000 mg: infuse over 1 [id number] - 1500 mg: infuse over 1.5 hoursVancomycin FOR IV SET [id number] - 2000 mg: infuse over 2 hours> 2001 mg: infuse over 2.5 hours MEDICATION WASTE Product Size: 1000 mgProduct Wasted: ___ mg Start Date: 07/09/17 Stop Date: 07/09/17 Status: Completed vancomycin + sodium chloride 0.9% INJ 250 mL 1.25 gm, Route: IVPB, [id number], Start date: 07/10/17 18:00:00 CDT, Stop date: 07/23 06/08 10:30:00 CDT, ABX Indication: Pneumonia Start Date: 07/10/17 Stop Date: 07/12/17 Status: Discontinued Visipaque 320mg/ml 100 mL, Route: IVP, Drug Form: SOLN, Dosing Weight 56.818, kg, ONCALL, STAT, Sta rt date: 07/10/17 15:37:00 CDT, Duration: 1 doses or times, Dose=2.2ml/kg, Max maby=[id number] -- "To be infused by Radiology Staff ONLY" Start Date: 07/10/17 Stop Date: 07/10/17 Status: Completed Vitamin B12 1,000 microgram, 1 tab, Route: PO, Drug form: TAB, Daily, Dosing Weight 58.636, kg, Start date: 07/09/17 9:00:00 CDT, Duration: 30 day, Stop date: 08/07/17 9:00 :00 CDT Notes: (Same As: Vitamin B-12) Start Date: 07/09/17 Stop Date: 07/12/17 Status: Discontinued Zofran 4 mg, 1 tab, Route: PO, Drug form: TAB, Q8H, Dosing Weight 58.636, kg, PRN Nause a, Start date: 07/08/17 13:39:00 CDT, Duration: 30 day, Stop date: 08/07/17 13:3 8:00 CDT Notes: (Same as: Zofran) Start Date: 07/08/17 Stop Date: 07/12/17 Status: Discontinued Zofran 4 mg, Route: IVP, Drug form: INJ, ONCE, Dosing Weight 58.636, kg, Priority: STAT , Start date: 07/08/17 9:02:00 CDT, Stop date: 07/08/17 9:02:00 CDT Start Date: 07/08/17 Stop Date: 07/08/17 Status: Completed Results BLOOD BANK RESULTS 1 2 3 Most recent to oldest [Reference Range]: O POS *Unknown* (07/08/17 9:07 AM) ABO/Rh Negative (07/08/17 9:07 AM) Antibody Scrn Product available (07/09/17 10:55 AM) RBC product ELECTROLYTES 1 2 3 Most recent to oldest [Reference Range]: 142 mEq/L (07/12/17 3:26 AM) 137 mEq/L (07/11/17 3:59 AM) 142 mEq/L (07/10/17 2:27 AM) Sodium Lvl [135-145 mEq/L] 3.4 mEq/L *LOW* (07/12/17 3:26 AM) 4.2 mEq/L (07/11/17 3:59 AM) 4.0 mEq/L (07/10/17 2:27 AM) Potassium Lvl [3.5-5.1 mEq/L] 105 mEq/L (07/12/17 3:26 AM) 103 mEq/L (07/11/17 3:59 AM) 108 mEq/L (07/10/17 2:27 AM) Chloride Lvl [95-109 mEq/L] 25 mEq/L (07/12/17 3:26 AM) 21 mEq/L *LOW* (07/11/17 3:59 AM) 26 mEq/L (07/10/17 2:27 AM) CO2 [24-32 mEq/L] 15.4 mEq/L (07/12/17 3:26 AM) 17.2 mEq/L (07/11/17 3:59 AM) 12.0 mEq/L (07/10/17 2:27 AM) AGAP [10.0-20.0 mEq/L] CHEM PANEL 1 2 3 Most recent to oldest [Reference Range]: 0.33 mg/dL *LOW* (07/12/17 3:26 AM) 0.33 mg/dL *LOW* (07/11/17 3:59 AM) 0.30 mg/dL *LOW* (07/10/17 2:27 AM) Creatinine Lvl [0.50-1.40 mg/dL] 184 mL/min/1.73m2 1 *NA* (07/12/17 3:26 AM) 184 mL/min/1.73m2 2 *NA* (07/11/17 3:59 AM) 191 mL/min/1.73m2 3 *NA* (07/10/17 2:27 AM) eGFR 5 mg/dL *LOW* (07/12/17 3:26 AM) 6 mg/dL *LOW* (07/11/17 3:59 AM) 7 mg/dL (07/10/17 2:27 AM) BUN [7-22 mg/dL] 23 (07/09/17 9:12 AM) 40 *HI* (07/08/17 9:09 AM) B/C Ratio [6-25] 91 mg/dL (07/12/17 3:26 AM) 92 mg/dL (07/11/17 3:59 AM) 91 mg/dL (07/10/17 2:27 AM) Glucose Lvl [70-99 mg/dL] 7.4 g/dL (07/09/17 9:12 AM) 7.4 g/dL (07/09/17 9:12 AM) 7.4 g/dL (07/08/17 9:09 AM) Total Protein [6.4-8.4 g/dL] 3.5 g/dL (07/09/17 9:12 AM) 3.5 g/dL (07/09/17 9:12 AM) 3.6 g/dL (07/08/17 9:09 AM) Albumin Lvl [3.5-5.0 g/dL] 3.9 g/dL (07/09/17 9:12 AM) 3.9 g/dL (07/09/17 9:12 AM) 3.8 g/dL (07/08/17 9:09 AM) Globulin [2.7-4.2 g/dL] 0.9 (07/09/17 9:12 AM) 0.9 (07/09/17 9:12 AM) 0.9 (07/08/17 9:09 AM) A/G Ratio [0.7-1.6] 9.3 mg/dL (07/12/17 3:26 AM) 8.7 mg/dL (07/11/17 3:59 AM) 9.2 mg/dL (07/10/17 2:27 AM) Calcium Lvl [8.5-10.5 mg/dL] 3.5 mg/dL (07/12/17 3:26 AM) 3.2 mg/dL (07/11/17 3:59 AM) 2.7 mg/dL (07/10/17 2:27 AM) Phosphorus [2.5-4.5 mg/dL] 2.2 mg/dL (07/12/17 3:26 AM) 2.2 mg/dL (07/11/17 3:59 AM) 2.4 mg/dL (07/10/17 2:27 AM) Magnesium Lvl [1.8-2.4 mg/dL] 25 unit/L (07/09/17 9:12 AM) 25 unit/L (07/09/17 9:12 AM) 20 unit/L (07/08/17 9:09 AM) ALT [0-65 unit/L] 47 unit/L *HI* (07/09/17 9:12 AM) 47 unit/L *HI* (07/09/17 9:12 AM) 57 unit/L *HI* (07/08/17 9:09 AM) AST [0-37 unit/L] 107 unit/L (07/09/17 9:12 AM) 107 unit/L (07/09/17 9:12 AM) 97 unit/L (07/08/17 9:09 AM) Alk Phos [39-136 unit/L] 1037 unit/L *HI* (07/11/17 3:59 AM) 987 unit/L *HI* (07/10/17 8:12 AM) 865 unit/L *HI* (07/09/17 9:12 AM) LDH [98-192 unit/L] 1.1 mg/dL (07/12/17 3:26 AM) 1.5 mg/dL *HI* (07/11/17 3:59 AM) 1.7 mg/dL *HI* (07/10/17 8:12 AM) Bili Total [0.2-1.3 mg/dL] 0.4 mg/dL *HI* (07/12/17 3:26 AM) 0.4 mg/dL *HI* (07/11/17 3:59 AM) 0.6 mg/dL *HI* (07/10/17 8:12 AM) Bili Direct [0.0-0.3 mg/dL] 0.7 mg/dL (07/12/17 3:26 AM) 1.1 mg/dL *HI* (07/11/17 3:59 AM) 1.1 mg/dL *HI* (07/10/17 8:12 AM) Bili Indirect [0.0-1.0 mg/dL] 0.6 mMol/L (07/09/17 9:12 AM) 1.0 mMol/L (07/08/17 2:36 PM) Lactic Acid Lvl [0.5-2.2 mMol/L] 1Result Comment: [...] be mul tiplied by the estimated BMI. PARATHYROID PROFILE 1 2 3 Most recent to oldest [Reference Range]: 1.23 mMol/L (07/12/17 3:26 AM) 1.10 mMol/L (07/11/17 3:59 AM) 1.21 mMol/L (07/10/17 2:27 AM) Ca Ion WB [1.05-1.25 mMol/L] 1.20 mMol/L (07/12/17 3:26 AM) 1.12 mMol/L (07/11/17 3:59 AM) 1.19 mMol/L (07/10/17 2:27 AM) Ca Norm WB [1.05-1.25 mMol/L] TOXICOLOGY 1 2 3 Most recent to oldest [Reference Range]: 1800 *NA* (07/11/17 5:44 PM) 1030 *NA* (07/10/17 10:58 AM) Vanco Tr TND 21.5 ug/ml *NA* (07/11/17 5:44 PM) 4.4 ug/ml *NA* (07/10/17 10:58 AM) Vanco Tr URINE CHEM 1 2 3 Most recent to oldest [Reference Range]: Negative (07/08/17 10:32 AM) U Preg [Negative] URINE AND STOOL 1 2 3 Most recent to oldest [Reference Range]: Clear (07/11/17 1:57 AM) UA Turbidity [Clear] Yellow *NA* (07/11/17 1:57 AM) UA Color [Yellow] 7.0 (07/11/17 1:57 AM) UA pH [5.0-8.0] 1.006 (07/11/17 1:57 AM) UA Spec Grav [<=1.030] Negative mg/dL *NA* (07/11/17 1:57 AM) UA Glucose [Negative mg/dL] Negative (07/11/17 1:57 AM) UA Blood [Negative] TR *NA* (07/11/17 1:57 AM) UA Ketones Negative mg/dL (07/11/17 1:57 AM) UA Protein [Negative mg/dL] <=1.0 mg/dL *NA* (07/11/17 1:57 AM) UA Urobilinogen [0.1-1.0 mg/dL] Negative *NA* (07/11/17 1:57 AM) UA Bili [Negative] Negative (07/11/17 1:57 AM) UA Leuk Est [Negative] Negative (07/11/17 1:57 AM) UA Nitrite [Negative] 1 /HPF (07/11/17 1:57 AM) UA WBC [0-5 /HPF] 1 /HPF (07/11/17 1:57 AM) UA RBC [0-2 /HPF] None Seen *NA* (07/11/17 1:57 AM) UA Sq Epi Few /LPF *NA* (07/11/17 1:57 AM) UA Mucus [None Seen /LPF] HEMATOLOGY 1 2 3 Most recent to oldest [Reference Range]: 11.7 K/CMM *HI* (07/12/17 3:26 AM) 15.8 K/CMM *HI* (07/11/17 3:59 AM) 16.8 K/CMM *HI* (07/10/17 2:27 AM) WBC [3.7-10.4 K/CMM] 3.45 M/CMM *LOW* (07/12/17 3:26 AM) 3.28 M/CMM *LOW* (07/11/17 3:59 AM) 3.34 M/CMM *LOW* (07/10/17 2:27 AM) RBC [4.20-5.40 M/CMM] 7.6 g/dL *LOW* (07/12/17 3:26 AM) 7.3 g/dL *LOW* (07/11/17 3:59 AM) 7.6 g/dL *LOW* (07/10/17 2:27 AM) Hgb [12.0-16.0 g/dL] 23.7 % *LOW* (07/12/17 3:26 AM) 22.7 % *LOW* (07/11/17 3:59 AM) 23.0 % *LOW* (07/10/17 2:27 AM) Hct [36.0-48.0 %] 68.8 fL *LOW* (07/12/17 3:26 AM) 69.3 fL *LOW* (07/11/17 3:59 AM) 68.8 fL *LOW* (07/10/17 2:27 AM) MCV [80.0-98.0 fL] 22.1 pg *LOW* (07/12/17 3:26 AM) 22.1 pg *LOW* (07/11/17 3:59 AM) 22.9 pg *LOW* (07/10/17 2:27 AM) MCH [27.0-31.0 pg] 32.1 g/dL (07/12/17 3:26 AM) 31.9 g/dL *LOW* (07/11/17 3:59 AM) 33.2 g/dL (07/10/17 2:27 AM) MCHC [32.0-36.0 g/dL] 21.4 % *HI* (07/12/17 3:26 AM) 22.2 % *HI* (07/11/17 3:59 AM) 22.5 % *HI* (07/10/17 2:27 AM) RDW [11.5-14.5 %] 471 K/CMM *HI* (07/12/17 3:26 AM) 397 K/CMM (07/11/17 3:59 AM) 345 K/CMM (07/10/17 2:27 AM) Platelet [133-450 K/CMM] 8.5 fL (07/12/17 3:26 AM) 8.7 fL (07/11/17 3:59 AM) 8.8 fL (07/10/17 2:27 AM) MPV [7.4-10.4 fL] 63.7 % (07/12/17 3:26 AM) 71.6 % (07/11/17 3:59 AM) 76.4 % *HI* (07/10/17 2:27 AM) Segs [45.0-75.0 %] 25.7 % (07/12/17 3:26 AM) 17.0 % *LOW* (07/11/17 3:59 AM) 11.4 % *LOW* (07/10/17 2:27 AM) Lymphocytes [20.0-40.0 %] 8.9 % (07/12/17 3:26 AM) 10.0 % (07/11/17 3:59 AM) 11.3 % (07/10/17 2:27 AM) Monocytes [2.0-12.0 %] 0.9 % (07/12/17 3:26 AM) 0.5 % (07/11/17 3:59 AM) 0.3 % (07/10/17 2:27 AM) Eosinophils [0.0-4.0 %] 0.8 % (07/12/17 3:26 AM) 0.9 % (07/11/17 3:59 AM) 0.6 % (07/10/17 2:27 AM) Basophils [0.0-1.0 %] 7.5 K/CMM (07/12/17 3:26 AM) 11.3 K/CMM *HI* (07/11/17 3:59 AM) 12.8 K/CMM *HI* (07/10/17 2:27 AM) Segs-Bands # [1.5-8.1 K/CMM] 3.0 K/CMM (07/12/17 3:26 AM) 2.7 K/CMM (07/11/17 3:59 AM) 1.9 K/CMM (07/10/17 2:27 AM) Lymphocytes # [1.0-5.5 K/CMM] 1.0 K/CMM *HI* (07/12/17 3:26 AM) 1.6 K/CMM *HI* (07/11/17 3:59 AM) 1.9 K/CMM *HI* (07/10/17 2:27 AM) Monocytes # [0.0-0.8 K/CMM] 0.1 K/CMM (07/12/17 3:26 AM) 0.1 K/CMM (07/11/17 3:59 AM) 0.3 K/CMM (07/08/17 9:09 AM) Eosinophils # [0.0-0.5 K/CMM] 0.1 K/CMM (07/12/17 3:26 AM) 0.1 K/CMM (07/11/17 3:59 AM) 0.1 K/CMM (07/10/17 2:27 AM) Basophils # [0.0-0.2 K/CMM] 1+ *ABN* (07/12/17 3:26 AM) 1+ *ABN* (07/11/17 3:59 AM) 1+ *ABN* (07/10/17 2:27 AM) Anisocyte [None Seen] 2+ (07/12/17 3:26 AM) Hypochrom [None Seen] 3+ *NA* (07/12/17 3:26 AM) 2+ *ABN* (07/11/17 3:59 AM) 3+ *NA* (07/10/17 2:27 AM) Microcyte [None Seen] Slight *NA* (07/12/17 3:26 AM) Target Cell Rare *ABN* (07/08/17 9:09 AM) Sickle Cell [None Seen] Normal (07/08/17 9:09 AM) Plt Morph 9.3 % *HI* (07/12/17 3:26 AM) 8.0 % *HI* (07/11/17 3:59 AM) 4.7 % *HI* (07/10/17 2:27 AM) Retic Auto [0.5-1.5 %] BACTERIAL - SEROLOGY 1 2 3 Most recent to oldest [Reference Range]: Urine *NA* (07/09/17 10:13 AM) Source Strep Negative (07/09/17 10:13 AM) Strep pneumoniae Ag [Negative] FUNGAL - SEROLOGY 1 2 3 Most recent to oldest [Reference Range]: NONE DETECTED *NA* (07/11/17 1:28 PM) U Histo Ag NEGATIVE 1 *NA* (07/11/17 1:28 PM) U Hist Ag Intrp 1Result Comment: REFERENCE INTERVAL: NONE DETECTED [facility] [facility] [id number] [facility] [place] [place] [address] Immunizations Not Given Vaccine Date Status Refusal Reason pneumococcal 13-valent vaccine 07/05/17 Not Given Patient Refuses Procedures No data available for this section Social History Social History Type Response Substance Abuse Use: None. Alcohol Never Smoking Status Never smoker; Exposure to Tobacco Smoke None; Cigarette Smoking Last 365 Days No; Reg Smoking Cessation Counseling No Assessment and Plan Extracted from: Title: Hematology Consult Progress Author: Gene Berger MD Date: 07/12/17 Note Patient: CLAIRE JACK Age: 21 years Sex: Female : 1995 Associated Diagnoses: None Author: Gene Berger MD Basic Information Ms. 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 Hematology has been consulted with concern for ACS and for assistance with pain medication. Subjective The patient reports drastically improved pain today. She denies chest pain, dyspnea, memory disturbance and hypersomnolence. No bleeding or bruising. Health Status Allergies: Allergic Reactions (All) Severity Not Documented Augmentin- Hives. Dilaudid- Extreme memory loss. Problem list: All Problems Anxiety disorder, unspecified / SNOMED CT 4601744723 / Confirmed Cardiomegaly / SNOMED CT 05052663 / Confirmed Sickle cell crisis / SNOMED CT 7154788392 / Confirmed Depression / SNOMED CT 3187739754 / Confirmed Objective Meds Scheduled Meds: None Unscheduled Meds: None PRN Meds: None One Time Meds (2):(Completed) morphine Sulfate (MS Contin), (Completed) potassium chloride Continuous Infusions: None I&O Input/Output RecordInOutBal 06/2024hr Tot 0 0 0 06/1924hr Tot 750 0 750 VS/Measurements Vital Signs (last 24 hrs) Last Charted Temp Oral97.9 DegF (JUL 12:09) Heart Rate Ljvzhtikcy47 bpm (JUL 12:) Resp Rate 18 BRMIN (JUL 12:) YOA392 mmHg (JUL 12:) DBP71 mmHg (JUL 12:) LuQ0582 % (JUL 12:) General: Alert and oriented, No acute distress. Eye: Extraocular movements are intact, Normal conjunctiva. HENT: Normocephalic, Oral mucosa is moist. Respiratory: Respirations are non-labored, Symmetrical chest wall expansion. Gastrointestinal: Soft, Non-tender, Non-distended. Musculoskeletal No tenderness. No swelling. Neurologic: Alert, Oriented, No focal deficits, Cranial Nerves II-XII are grossly intact. Psychiatric: Cooperative, Appropriate mood & affect. Review / Management Results review: Labs (Last four charted values) WBC H 11.7(JUN 20)H 15.8(JUN 19)H 16.8(JUN 18)H 18.6(SEP 17) Hgb L 7.6(JUN 20)L 7.3(SEP 19)L 7.6(SEP 18)C 6.7(SEP 17) Hct L 23.7(JUN 20)L 22.7(SEP 19)L 23.0(SEP 18)L 20.5(SEP 17) Plt H 471(SEP 20)397(SEP 19)345(SEP 18)341(SEP 17) Na 142(SEP 20)137(SEP 19)142(SEP 18)138(SEP 17) K L 3.4(SEP 20)4.2(SEP 19)4.0(SEP 18)3.5(SEP 17) CO2 25(SEP 20)L 21(SEP 19)26(SEP 18)27(SEP 17) Cl 105(SEP 20)103(SEP 19)108(SEP 18)102(SEP 17) Cr L 0.33(JUN 20)L 0.33(SEP 19)L 0.30(SEP 18)L 0.30(SEP 17) BUN L 5(SEP 20)L 6(SEP 19)7(SEP 18)7(SEP 17) Glucose Random 91(SEP 20)92(SEP 19)91(SEP 18)H 112(SEP 17) Mg 2.2(SEP 20)2.2(SEP 19)2.4(SEP 18)2.4(SEP 17) Phos 3.5(JUN 20)3.2(SEP 19)2.7(SEP 18)3.2(SEP 17) Ca 9.3(SEP 20)8.7(SEP 19)9.2(SEP 18)9.1(SEP 17). Impression and Plan This case was discussed with Dr. Day, hematology consult attending of record. Ms. 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 Hematology has been consulted with concern for ACS and for assistance with pain medication. 1. HbSS c/b VOC: The demonstrates subjective and objective evidence consistent with vassoclussive crisis. Without respiratory symptoms, hypoxia, significant chest pain and only mild CXR infiltrates, there is no concern for clinically significant ACS at this time. There is no evidence of aplastic crisis either with well preserved Hb (near baseline) and appropriately elevated reticulocyte count. * The patient is doing much better today and has tolerated reduced basal dose morphine without issues. - May D/C IVF - Continue O2 as needed - Consider transitionion off DEBURR OPERATOR to MS Contin 15 mg BID, norco 10/325 q6hr PRN and IV dilaudid for rescue - Ibuprofen 800 mg TID - Monitor CBC, LDH, Reticulocyte Count and Bilirubin daily - Consider PRBC transfusion for Hb less than 6.0. Discuss with heme prior to doing so. Addendum I saw and examined the patient with on 07/12 and agree with findings, by assessement and plan, as depicted in the fellow Sheri de los santos note. Nati garcia MD on 07/12/2017 22:25 Extracted from: Title: Hematology Consultation Author: Anthony Davidson MD Date: 07/09/17 Hematology Consult Note Patient Room: [place] [id number], [id number] (: 1995) F Attending: Jose Roberto Holt [facility]: Service: Internal Medicine DATE OF CONSULT: 07/09/2017 REFERRING PHYSICIAN: Barak Holt REASON FOR CONSULTATION: Sickle cell disease vaso-occlusive crisis CHIEF COMPLAINT: Pain HISTORY OF PRESENT ILLNESS: Claire Jack is a 21-year-old woman with a past medical history as described below. She was admitted to the hospital for sickle cell vaso-occlusive crisis. She had pain in her bag, legs, and hips. She was started on a morphine DEBURR OPERATOR and intravenous fluids. Due to tachycardia and leukocytosis her primary team started broad-spectrum antibiotics. Evaluation for infection has been negative to date. The patient has had 2 chest x-rays that are not suggestive of acute chest syndrome. She was recently treated for pneumonia. At the time of my evaluation she said that her pain was controlled. She did not have any complaints and told me that she wanted to be left alone to rest. She has been known to refuse to take hydroxyurea in the past. PAST MEDICAL HISTORY: Sickle cell disease PAST SURGICAL HISTORY: None SOCIAL HISTORY: She is not an alcohol or tobacco user. FAMILY HISTORY: The patient reported no medical history. Allergies (2) ActiveReaction Augmentinhives Dilaudidextreme memory loss Medications (27) Active Scheduled Meds (3): 07/09/17 cefepime 1 gm IVPB ABXQ8H 07/09/17 cyanocobalamin (Vitamin B12) 1,000 microgram PO Daily 07/09/17 folic acid 1 mg PO Daily Unscheduled Meds: None PRN Meds (5): 07/08/17 diphenhydrAMINE (diphenhydrAMINE 25 mg oral tablet, disintegrating) 25 mg PO TID 07/08/17 docusate-senna (docusate-senna 50 mg-8.6 mg oral tablet) 2 tab PO BID 07/08/17 naloxone 0.04 mg IVP Q2MIN 07/08/17 ondansetron (Zofran) 4 mg PO Q8H 07/08/17 sodium chloride (Saline Flush 0.9%) 10 mL IVP PRN One Time Meds (15): 07/08/17 (Completed) Lactated Ringers Injection IV (Lactated Ringers (Bolus) IV) 1,000 mL IV ONCE 1,000 ml/hr 07/08/17 (Completed) Lactated Ringers Injection IV (Lactated Ringers (Bolus) IV) 1,000 mL IV ONCE 1,000 ml/hr 07/08/17 (Completed) ketAMINE 30 mg IV ONCE 07/08/17 (Completed) levofloxacin 750 mg PO ONCE 07/08/17 (Completed) morphine Sulfate 8 mg IVP ONCE 07/08/17 (Completed) morphine Sulfate 8 mg IVP ONCE 07/08/17 (Completed) morphine Sulfate 10 mg IVP ONCE 07/08/17 (Discontinued) morphine Sulfate 4 mg IVP ONCE 07/08/17 (Completed) morphine Sulfate 10 mg IVP ONCE 07/08/17 (Completed) morphine Sulfate 2 mg IVP ONCE 07/09/17 (Completed) morphine Sulfate 2 mg IVP ONCE 07/08/17 (Completed) ondansetron (Zofran) 4 mg IVP ONCE 07/09/17 (Ordered) vancomycin + sodium chloride 0.9% INJ 250 mL 1.5 gm IVPB ONCE 166.67 ml/hr 07/09/17 (Discontinued) vancomycin 1,000 mg IVPB ONCE 07/09/17 (Discontinued) vancomycin 1,000 mg IVPB ONCE Continuous Infusions (4): 07/08/17 MORPhine sulfate DEBURR OPERATOR 30 mg/30 ml INJ syringe 30 mg 30 mg Per DEBURR OPERATOR Order as Directed 07/08/17 sodium chloride 0.45% 1000 ml INJ 1,000 mL 1,000 mL 125 ml/hr 07/08/17 sodium chloride 0.9% INJ 250 mL 250 mL cnc machinist 2nd shift for use with blood product administration 07/09/17 sodium chloride 0.9% INJ 250 mL 250 mL Knit Tubing Dyer for use with blood product administration. REVIEW OF SYSTEMS: Except as described in the HPI, a comprehensive review of systems was performed and was negative. PHYSICAL EXAMINATION: General: The patient was resting in bed. She answered questions alowly and quietly. Eyes: The eye movements were normal. There was no scleral icterus. Neck: No elevation in JVD Chest: Normal exam Heart: Tachycardia, regular rhythm, no abnormal heart sounds Lungs: Clear, respirations symmetric Abdomen: Not tender or distended Extremities: No edema Neurologic: No deficits, patient moved all extremities Psychiatric: Flat affect, depressed mood Skin: No rashes or skin lesions Laboratory Testing: All laboratory tests since the time of admission to the hospital were reviewed. Assessment: 21-year-old woman with sickle cell disease admitted for vaso- occlusive crisis. The hematology service was consulted for assistance. There is no evidence of acute chest syndrome. Tachycardia and leukocytosis may be due to her vaso-occlusive crisis. Elevated bilirubin is improving as of 07/09/2017. Recommendations: - Continue to check CBC, fractionated bilirubin, LDH, and reticulocyte count daily - No transfusion unless hemoglobin falls below 5 or unless the patient becomes symptomatic - Continue morphine DEBURR OPERATOR - reassess pain every 3 - 4 hours and adjust DEBURR OPERATOR as necessary - Continue folic acid, incentive spirometry - Start bowel regimen - Continue broad-spectrum antibiotics - Start scheduled [place] on 07/10 We will continue to follow this patient with you. Please contact us using the hematology pager if you have any questions. Anthony Davidson MD Hematology/Oncology Fellow [facility] Pager: [phone] Extracted from: Title: History and Physical Author: Liberty Swanson Date: 07/08/17 PHD Assessment/Plan Ms. Jack is a 21yo woman with PMH sickle cell disease (1 prior ACS hospitalization s/p transfusion)presents for 2 day h/o worsening lower back and BL LE 10/10 pain, admitted for sickle cell crisis with Acute Chest Syndrome r/o. Currently on DEBURR OPERATOR and IVF, afebrile, but tachy with leukocytosis. CTPE stat ordered to r/o PE. CT chest c/w PNA though CXR shows improvement so continuing to monitor. 1.Sickle cell crisis -Stable. -2/2 rx non-compliance vs. PNA vs. PE. -Retic count admit 5.1. -S/p 07/01-07/08 completed Abx course for PNA. -Afebrile, with CXR showing PNA improvement, but tachy with leukocytosis. -ContinuePCA and IVF. -F/u heme consult (for ACS r/o), CTPE, repeat CXR and PNA signs for PNA r/o. 2.Bilateral hip pain -2/2 sickle cell crisis vs. AVN. -F/u BL hip XR. 3.Tachycardia -2/2 sickle cell crisis vs. PE. -F/u CTPE. 4.Leukocytosis -2/2 sickle cell crisis vs. PNA. -Plan as above for crisis. 5.Bony sclerosis -Shown on CT (07/04/17). -Plan as above for BL hip pain. 6.Splenic mass -Shown on CT (07/04/17). -2/2 hemangioma. -F/u with [facility] heme; consider possible MRI abdomen w/wo gadolinium. 7.Liver mass -Shown on CT (07/04/17). -2/2 hemangioma. -F/u with [facility] heme; consider possible MRI abdomen w/wo gadolinium. Prophylaxis Ambulation. Disposition Home 07/09 vs. 07/10 pending crisis and tachycardia resolution. Teaching Attestation: Patient seen and examined. I agree with Dr. Marshall's assessment and documentation above.
--- OUTSIDE RECORDS SUMMARY | 2019-03-11 17:22 | XMS REPORT | Summary of Care ---
Author Author [facility] Organization [facility] Address Unknown Phone Unavailable Encounter GINGER Hobbs(ARSENIO) [id number] Date(s): 06/30/17 - 07/06/17 [facility] [address] [place] [address]- [phone] Discharge Disposition: Home or Self Care Attending Physician: Montana Joy MD Admitting Physician: Montana Joy MD Vital Signs 1 2 3 Most recent to oldest [Reference Range]: 162.56 cm (07/01/17 3:56 AM) 162.56 cm (06/30/17 2:53 PM) Height 98.5 DegF (07/06/17 3:49 PM) 98.6 DegF (07/06/17 11:35 AM) 98.9 DegF (07/06/17 8:04 AM) Temperature Oral [96.4-99.1 DegF] 129/78 mmHg (07/06/17 3:49 PM) 145/56 mmHg *HI* (07/06/17 11:35 AM) 123/73 mmHg (07/06/17 8:04 AM) Blood Pressure [90-140/60-90 mmHg] 14 BRMIN (07/06/17 8:47 PM) 16 BRMIN (07/06/17 3:49 PM) 16 BRMIN (07/06/17 11:35 AM) Respiratory Rate [14-20 BRMIN] 100 bpm (07/06/17 3:49 PM) 95 bpm (07/06/17 3:56 AM) 91 bpm (07/06/17 12:05 AM) Peripheral Pulse Rate [60-100 bpm] 56.818 kg (07/01/17 3:56 AM) 59.091 kg (06/30/17 2:53 PM) Weight 21.5 m2 (07/01/17 3:56 AM) 22.36 m2 (06/30/17 2:53 PM) Body Mass Index Problem List Condition Effective Dates Status Health Status Informant Anxiety disorder, Active unspecified(Confirme d) Cardiomegaly(Confirm Active ed) Sickle cell Active crisis(Confirmed) Depression(Confirmed Active ) Allergies, Adverse Reactions, Alerts Substance Reaction Severity Status Augmentin hives Active Dilaudid extreme memory loss Active Medications *ATTN RN please do not admin vanc dose until trough drawn *ATTN RN please do not admin vanc dose until trough drawn, *ATTN RN, Drug f orm: MISC, Route: MISC, ONCE, 07/04/17 12:30:00 CDT, Stop date: 07/04/17 12:30:0 0 CDT Start Date: 07/04/17 Stop Date: 07/04/17 Status: Completed Benadryl 25 mg, 1 tab, Route: PO, Drug form: TAB, TID, Dosing Weight 56.818, kg, PRN Itch ing, Start date: 07/01/17 19:36:00 CDT, Duration: 30 day, Stop date: 07/31/17 19 :35:00 CDT Start Date: 07/01/17 Stop Date: 07/01/17 Status: Discontinued Benadryl 25 mg, 1 tab, Route: PO, Drug form: TAB, TID, Dosing Weight 56.818, kg, PRN Ash rgic reaction, Start date: 07/05/17 17:27:00 CDT, Duration: 30 day, Stop date: 1 17:26:00 CDT Start Date: 07/05/17 Stop Date: 07/06/17 Status: Discontinued Benadryl 50 mg, 1 mL, Route: IV, Drug form: INJ, Q6H, Dosing Weight 56.818, kg, PRN as ne eded for itching, Start date: 07/01/17 21:21:00 CDT, Duration: 30 day, Stop date : 07/31/17 21:20:00 CDT Notes: (Same as: Benadryl) Start Date: 07/01/17 Stop Date: 07/05/17 Status: Discontinued cefepime + sodium chloride 0.9% INJ 100 mL 1 gm, Route: IVPB, [id number], Dosing Weight 59.091, kg, (CrCl >/=50 ml/min), Start date: 07/01/17 4:00:00 CDT, Duration: 10 day, Stop date: 07/10/17 20:00:00 CDT, ABX Indication: Pneumonia Notes: (Same As: Maxipime) MEDICATION WASTE Product Size: 1000 mgProduc t Wasted: ___ mg Start Date: 07/01/17 Stop Date: 07/03/17 Status: Discontinued cholecalciferol 1,000 IntlUnit, 1 tab, Route: PO, Drug form: TAB, Daily, Dosing Weight 56.818, k g, Start date: 07/03/17 9:00:00 CDT, Duration: 30 day, Stop date: 08/01/17 9:00: 00 CDT Notes: Same as : Vitamin D3 Start Date: 07/03/17 Stop Date: 07/06/17 Status: Discontinued diphenhydrAMINE 25 mg oral tablet 25 mg=1 tab, PO, TID, PRN Allergic reaction, X 5 day, # 15 tab, 0 Refill(s), [email or web address] [id number] Start Date: 07/06/17 Stop Date: 07/11/17 Status: Suspended docusate sodium 100 mg oral capsule 100 mg, 1 cap, Route: PO, Drug form: CAP, BID, Dosing Weight 56.818, kg, Start d ate: 07/02/17 17:00:00 CDT, Duration: 30 day, Stop date: 08/01/17 9:00:00 CDT Notes: (Same as: Colace) (Do Not Crush) Start Date: 07/02/17 Stop Date: 07/04/17 Status: Discontinued docusate-senna 50 mg-8.6 mg oral tablet 2 tab, Route: PO, Drug Form: TAB, Dosing Weight 56.818, kg, BID, Start date: 9:00:00 CDT, Duration: 30 day, Stop date: 08/03/17 17:00:00 CDT Notes: (Same as Cristi-S) Equiv. to Nasima-Colace. Start Date: 07/05/17 Stop Date: 07/06/17 Status: Discontinued docusate-senna 50 mg-8.6 mg oral tablet 2 tab, PO, BID, PRN Constipation, X 14 day, # 56 tab, 0 Refill(s), Pharmacy: [facility] [id number] Start Date: 07/06/17 Stop Date: 07/20/17 Status: Suspended folic acid 1 mg, 1 tab, Route: PO, Drug form: TAB, QID, Dosing Weight 56.818, kg, Start marcus e: 07/02/17 13:00:00 CDT, Duration: 30 day, Stop date: 08/01/17 9:00:00 CDT Notes: (Same as: Folvite) Start Date: 07/02/17 Stop Date: 07/06/17 Status: Discontinued folic acid 1 mg, 1 tab, Route: PO, Drug form: TAB, Daily, Dosing Weight 56.818, kg, Start d ate: 07/04/17 9:00:00 CDT, Duration: 30 day, Stop date: 08/02/17 9:00:00 CDT Notes: (Same as: Folvite) Start Date: 07/04/17 Stop Date: 07/06/17 Status: Discontinued folic acid 1 mg oral tablet 1 mg=1 tab, PO, Daily, # 30 tab, 0 Refill(s), Pharmacy: [id number] Start Date: 07/06/17 Stop Date: 08/05/17 Status: Suspended folic acid 1 mg oral tablet 1 mg=1 tab, PO, Daily, 0 Refill(s) Start Date: 07/06/17 Stop Date: 07/06/17 Status: Discontinued gabapentin 300 mg oral capsule 300 mg, 1 cap, Route: PO, Drug form: CAP, Q8H, Dosing Weight 56.818, kg, Start d ate: 07/02/17 16:00:00 CDT, Duration: 30 day, Stop date: 08/01/17 8:00:00 CDT Notes: (Same as: Neurontin) Start Date: 07/02/17 Stop Date: 07/06/17 Status: Discontinued hydrocortisone topical 1% cream 1 appl, Route: TOP, TID, Drug form: CRM, Start date: 07/04/17 17:00:00 CDT, Dura tion: 30 day, Stop date: 08/03/17 13:00:00 CDT Start Date: 07/04/17 Stop Date: 07/06/17 Status: Discontinued hydrocortisone topical 1% cream 1 appl, TOP, TID, X 7 day, # 60 gm, 0 Refill(s), Pharmacy: [facility] [id number] Start Date: 07/06/17 Stop Date: 07/13/17 Status: Suspended ketOROLAC 30 mg, Route: IVP, Drug form: INJ, ONCE, Dosing Weight 59.091, kg, Start date: 0 07/01/17 3:04:00 CDT, Duration: 1 doses or times, Stop date: 07/01/17 3:04:00 CDT Start Date: 07/01/17 Stop Date: 07/01/17 Status: Completed Levaquin 750 mg, 3 tab, Route: PO, Drug form: TAB, [id number], Dosing Weight 56.818, kg, Sta rt date: 07/04/17 15:00:00 CDT, Duration: 7 day, Stop date: 07/10/17 15:00:00 CD T, ABX Indication: Other (specify in Comments) Notes: Do not give w/antacids, dairy pdt & minerals Take 1 hr before or 2 hr after dairy pdt (Same as:Levaquin) Start Date: 07/04/17 Stop Date: 07/06/17 Status: Discontinued Levaquin 750 mg, Route: PO, Drug form: TAB, [id number], Dosing Weight 56.818, kg, Start date : 07/05/17 12:00:00 CDT, Duration: 7 day, Stop date: 07/11/17 12:00:00 CDT, ABX Indication: Pneumonia Start Date: 07/05/17 Stop Date: 07/05/17 Status: Deleted levofloxacin 250 mg oral tablet 750 mg=3 tab, PO, [id number], X 3 day, # 9 tab, 0 Refill(s), [facility]: [facility] [id number] Start Date: 07/06/17 Stop Date: 07/09/17 Status: Suspended meropenem + sodium chloride 0.9% INJ 100 mL 500 mg, Route: IVPB, [id number], Dosing Weight 56.818, kg, CrCL >=50ml/min, Extended infusion, infuse over 3 hours, Start date: 07/03/17 17:00:00 CDT, Duration: 10 day, Stop date: 07/13/17 11:00:00 CDT, ABX Indication: Pneumonia Notes: Same as Merrem MEDICATION WASTE Product Size: 500 mgProduct Wast ed: ___ mg Start Date: 07/03/17 Stop Date: 07/04/17 Status: Discontinued morphine 15 mg oral tablet, immediate release 15 mg=1 tab, PO, Q6H, PRN Pain Score 7-10, # 20 tab, 0 Refill(s), given to patie nt Start Date: 07/06/17 Stop Date: 07/19/17 Status: Suspended morphine 15 mg oral tablet, immediate release 30 mg=2 tab, PO, Q4H, PRN Pain, 0 Refill(s) Start Date: 07/01/17 Stop Date: 07/08/17 Status: Suspended morphine Sulfate 4 mg, 1 mL, Route: IVP, Drug form: SOLN, Q3H, Dosing Weight 59.091, kg, PRN Pain Score 7-10, Start date: 07/01/17 3:28:00 CDT, Duration: 30 day, Stop date: 07/09 3:27:00 CDT Notes: (Same as:MORPhine Sulfate) Start Date: 07/01/17 Stop Date: 07/01/17 Status: Discontinued morphine Sulfate 8 mg, Route: IVP, ONCE, Dosing Weight 59.091, kg, Priority: STAT, Start date: 0:51:00 CDT, Stop date: 07/01/17 0:51:00 CDT Start Date: 07/01/17 Stop Date: 07/01/17 Status: Completed morphine Sulfate 2 mg, 1 mL, Route: IVP, Drug form: SOLN, Q3H, Dosing Weight 56.818, kg, PRN Pain Score 7-10, Start date: 07/05/17 17:07:00 CDT, Duration: 30 day, Stop date: 17:06:00 CDT Start Date: 07/05/17 Stop Date: 07/05/17 Status: Discontinued morphine Sulfate 8 mg, Route: IVP, ONCE, Dosing Weight 59.091, kg, Priority: STAT, Start date: 23:19:00 CDT, Stop date: 06/30/17 23:19:00 CDT Start Date: 06/30/17 Stop Date: 06/30/17 Status: Completed morphine Sulfate 8 mg, Route: IVP, ONCE, Dosing Weight 59.091, kg, Priority: STAT, Start date: 23:32:00 CDT, Stop date: 06/30/17 23:32:00 CDT Start Date: 06/30/17 Stop Date: 06/30/17 Status: Completed morphine Sulfate 30 mg, 2 tab, Route: PO, Drug form: TAB, Q4H, Dosing Weight 56.818, kg, PRN Pain Score 4-6, Start date: 07/05/17 17:09:00 CDT, Stop date: 08/04/17 17:08:00 CDT Notes: (Same as:MORPhine Sulfate) Start Date: 07/05/17 Stop Date: 07/06/17 Status: Discontinued morphine Sulfate 2 mg, 1 mL, Route: IVP, Drug form: SOLN, Q3H, Dosing Weight 56.818, kg, PRN Pain Score 7-10, Start date: 07/05/17 19:48:00 CDT, Duration: 30 day, Stop date: 19:47:00 CDT Start Date: 07/05/17 Stop Date: 07/06/17 Status: Discontinued MORPhine sulfate [employer]ER 30 mg/30 ml INJ syringe 30 mg 30 mg, 30 mL, Route: IV, Initial Loading Dose: 2 mg, W[employer]ER Dose: 2 mg, W[employer]ER [employer]ER Lockou t: 10 minutes, Continuous Basal Rate: 0 mg, 4 Hour Limit (In MG): 48, Drug Form: INJ, Continuous, Start date: 07/01/17 13:00:00 CDT Notes: Dose: Delay: Basal rate: 4hr limit:( Same as:Monsei-Kelly) Start Date: 07/01/17 Stop Date: 07/05/17 Status: Discontinued MS Contin 30 mg, 1 tab, Route: PO, Drug form: ERTAB, Q12H, Dosing Weight 56.818, kg, Start date: 07/06/17 6:00:00 CDT, Duration: 30 day, Stop date: 08/04/17 18:00:00 CDT Notes: Do not crush (Same as:Oramorph SR, MS Contin) Start Date: 07/06/17 Stop Date: 07/05/17 Status: Canceled MS Contin 30 mg, 1 tab, Route: PO, Drug form: ERTAB, ONCE, Dosing Weight 56.818, kg, Prior ity: NOW, Start date: 07/05/17 20:42:00 CDT, Stop date: 07/05/17 20:42:00 CDT Notes: Do not crush (Same as:Oramorph SR, MS Contin) Start Date: 07/05/17 Stop Date: 07/05/17 Status: Completed MS Contin 30 mg, Route: PO, Drug form: ERTAB, Q12H, Dosing Weight 56.818, kg, Start date: 07/06/17 6:00:00 CDT, Duration: 30 day, Stop date: 08/04/17 18:00:00 CDT Start Date: 07/06/17 Stop Date: 07/05/17 Status: Canceled MS Contin 30 mg, 1 tab, Route: PO, Drug form: ERTAB, Q12H, Dosing Weight 56.818, kg, Start date: 07/05/17 18:00:00 CDT, Duration: 30 day, Stop date: 08/04/17 6:00:00 CDT Notes: Do not crush (Same as:Oramorph SR, MS Contin) Start Date: 07/05/17 Stop Date: 07/05/17 Status: Canceled MS Contin 30 mg, 1 tab, Route: PO, Drug form: ERTAB, [id number], Dosing Weight 56.818, kg, St art date: 07/06/17 14:00:00 CDT, Stop date: 08/05/17 14:00:00 CDT Notes: Do not crush (Same as:Oramorph SR, MS Contin) Start Date: 07/06/17 Stop Date: 07/06/17 Status: Discontinued MS Contin 30 mg, 1 tab, Route: PO, Drug form: ERTAB, ONCE, Dosing Weight 56.818, kg, Start date: 07/06/17 2:00:00 CDT, Stop date: 07/06/17 2:00:00 CDT Notes: Do not crush (Same as:Oramorph SR, MS Contin) Start Date: 07/06/17 Stop Date: 07/06/17 Status: Completed MS Contin 30 mg oral tablet, extended release 30 mg=1 tab, PO, BID, # 10 tab, 0 Refill(s), given to patient Start Date: 07/06/17 Status: Suspended Multiple Vitamins oral tablet 1 tab, PO, Daily, # 30 tab, 0 Refill(s), Pharmacy: [facility] [id number] Start Date: 07/06/17 Stop Date: 08/05/17 Status: Suspended naloxone 0.04 mg, 0.04 mL, Route: IVP, Drug form: INJ, Q2MIN, Dosing Weight 56.818, kg, P RN Narcotic Reversal, Start date: 07/01/17 12:41:00 CDT, Duration: 30 day, Stop date: 07/31/17 12:40:00 CDT Notes: (Same as: Narcan) MEDICATION WASTE Product Size: 2 mgProduct Was kallie: ___ mg Start Date: 07/01/17 Stop Date: 07/06/17 Status: Discontinued Omnipaque 300 75 ml, Route: IV, Drug Form: SOLN, Dosing Weight 56.818, kg, ONCE, Start date: 0 07/04/17 11:35:00 CDT, Stop date: 07/04/17 11:35:00 CDT Notes: (Same as:Omnipaque 350).WASTE: F/P - Black; E - [facility] Trash [facility] Start Date: 07/04/17 Stop Date: 07/04/17 Status: Completed ondansetron 4 mg, 2 mL, Route: IVP, Drug form: INJ, Q6H, Dosing Weight 59.091, kg, PRN Nause a & Vomiting, Start date: 07/01/17 3:28:00 CDT, Duration: 30 day, Stop date: 07/31/17 3:27:00 CDT Notes: (Same as: Zofran) MEDICATION WASTE Product Size: 4 mgProduct Was kallie: ___ mg Start Date: 07/01/17 Stop Date: 07/02/17 Status: Discontinued ondansetron 4 mg, Route: IVP, ONCE, Dosing Weight 59.091, kg, Priority: STAT, Start date: 23:19:00 CDT, Stop date: 06/30/17 23:19:00 CDT Start Date: 06/30/17 Stop Date: 06/30/17 Status: Completed pneumococcal 13-valent vaccine 0.5 mL, Route: IM, Drug Form: INJ, Daily, Start date: 07/05/17 9:00:00 CDT, Dura tion: 1 doses or times, Stop date: 07/05/17 9:00:00 CDT Notes: Shake well prior to use (Same as: Prevnar 13) Start Date: 07/05/17 Stop Date: 07/05/17 Status: Completed pyridoxine 100 mg, 1 tab, Route: PO, Drug form: TAB, Daily, Dosing Weight 56.818, kg, Start date: 07/04/17 9:00:00 CDT, Duration: 30 day, Stop date: 08/02/17 9:00:00 CDT Notes: (Same as: Vitamin B6) Start Date: 07/04/17 Stop Date: 07/06/17 Status: Discontinued riboflavin 100 mg, 1 tab, Route: PO, Drug form: TAB, Daily, Dosing Weight 56.818, kg, Start date: 07/04/17 9:00:00 CDT, Duration: 30 day, Stop date: 08/02/17 9:00:00 CDT Notes: (Same as: Vitamin B2) Start Date: 07/04/17 Stop Date: 07/06/17 Status: Discontinued Saline Flush 0.9% 10 ml, Route: IVP, Drug Form: INJ, Dosing Weight 59.091, kg, PRN, PRN Line Flush , Start date: 07/01/17 3:28:00 CDT, Duration: 30 day, Stop date: 07/31/17 3:27:0 0 CDT Notes: (Same as: BD Posiflush) Start Date: 07/01/17 Stop Date: 07/06/17 Status: Discontinued Saline Flush 0.9% 10 mL, Route: IVP, Drug Form: INJ, Dosing Weight 59.091, kg, PRN, PRN Line Flush , Start date: 06/30/17 23:19:00 CDT, Duration: 30 day, Stop date: 07/30/17 23:18 :00 CDT Notes: (Same as: BD Posiflush) Start Date: 06/30/17 Stop Date: 07/01/17 Status: Voided With Results Saline Flush 0.9% 10 mL, Route: IVP, Drug Form: INJ, Dosing Weight 59.091, kg, PRN, PRN Line Flush , Start date: 06/30/17 16:15:00 CDT, Duration: 30 day, Stop date: 07/30/17 16:14 :00 CDT Notes: (Same as: BD Posiflush) Start Date: 06/30/17 Stop Date: 07/01/17 Status: Deleted Sodium Chloride 0.9% (Bolus) IV 1,000 mL, Infuse Over: 1 hr, Route: IV, ONCE, Priority: STAT, Dosing Weight 59.0 91 kg, Start date: 06/30/17 23:19:00 CDT, Duration: 1 doses or times, Stop date: 06/30/17 23:19:00 CDT Start Date: 06/30/17 Stop Date: 06/30/17 Status: Completed Sodium Chloride 0.9% (Bolus) IV 1,000 mL, 1000 ml/hr, Infuse Over: 1 hr, Route: IV, 1,000, Drug form: INJ, ONCE, Priority: STAT, Dosing Weight 59.091 kg, Start date: 06/30/17 16:15:00 CDT, Dur ation: 1 doses or times, Stop date: 06/30/17 16:15:00 CDT Start Date: 06/30/17 Stop Date: 06/30/17 Status: Completed sodium chloride 0.9% 1000 ml INJ 1,000 mL 1,000 mL, Rate: 150 ml/hr, Infuse over: 6.7 hr, Route: IV, Dosing Weight 59.091 kg, Total Volume: 1,000, Start date: 07/01/17 3:28:00 CDT, Duration: 30 day, Sto p date: 07/31/17 3:27:00 CDT Start Date: 07/01/17 Stop Date: 07/06/17 Status: Discontinued sodium chloride 0.9% INJ 250 mL 250 mL, Rate: artificial stone setter for use with blood product administration, Dosing Weight 5 9.091, kg, Route: IV, Total Volume: 250, Start Date: 07/01/17 3:37:00 CDT, Durat ion: 30 day, Stop date: 07/31/17 3:36:00 CDT, Replace Every: 24 hr Start Date: 07/01/17 Stop Date: 07/06/17 Status: Discontinued Tylenol 650 mg, 2 tab, Route: PO, Drug form: TAB, Q4H, Dosing Weight 56.818, kg, PRN For Temp > 100.4 F, Start date: 07/02/17 23:36:00 CDT, Duration: 30 day, Stop date: 08/01/17 23:35:00 CDT Notes: Do not exceed 4 gm/day. (Same as: Tylenol) Start Date: 07/02/17 Stop Date: 07/06/17 Status: Discontinued vancomycin 1.25 gm, 250 mL, Route: IVPB, Drug form: INJ, [id number], Start date: 07/03/17 21:00 :00 CDT, Duration: 30 day, Stop date: 08/02/17 13:30:00 CDT, ABX Indication: Pne umonia Notes: TIME CRITICAL MEDICATIONSame as: Vancocin-NS (premixed)Infusion rate< 1000 mg: infuse over 1 [id number] - 1500 mg: infuse over 1.5 [id number] - 2000 mg: infuse over 2 hours> 2001 mg: infuse over 2.5 hours Start Date: 07/03/17 Stop Date: 07/04/17 Status: Discontinued vancomycin 1,250 mg, 250 mL, Route: IVPB, Drug form: INJ, ABXQ8H, Start date: 07/01/17 16:0 0:00 CDT, Stop date: 07/31/17 10:00:00 CDT, ABX Indication: Pneumonia Notes: TIME CRITICAL MEDICATIONSame as: Vancocin-NS (premixed)Infusion rate< 1000 mg: infuse over 1 [id number] - 1500 mg: infuse over 1.5 [id number] - 2000 mg: infuse over 2 hours> 2001 mg: infuse over 2.5 hours Start Date: 07/01/17 Stop Date: 07/03/17 Status: Voided With Results Vancomycin Pharmacy Dosing 1,500 mg, 250 mL, Route: IVPB, Drug form: INJ, ONCE, Dosing Weight 59.091, kg, S tart date: 07/01/17 4:00:00 CDT, Stop date: 07/01/17 4:00:00 CDT, Pharmacy to do se, ABX Indication: Pneumonia Notes: TIME CRITICAL MEDICATIONSame as: Vancocin-NS (premixed)Infusion rate< 1000 mg: infuse over 1 [id number] - 1500 mg: infuse over 1.5 [id number] - 2000 mg: infuse over 2 hours> 2001 mg: infuse over 2.5 hours Start Date: 07/01/17 Stop Date: 07/01/17 Status: Completed Vitamin B12 1,000 microgram, 2 tab, Route: PO, Drug form: TAB, Daily, Dosing Weight 56.818, kg, Start date: 07/04/17 9:00:00 CDT, Duration: 30 day, Stop date: 08/02/17 9:00 :00 CDT Notes: (Same As: Vitamin B12) Start Date: 07/04/17 Stop Date: 07/06/17 Status: Discontinued Vitamin C 500 mg, 1 tab, Route: PO, Drug form: TAB, Daily, Dosing Weight 56.818, kg, Start date: 07/04/17 9:00:00 CDT, Duration: 30 day, Stop date: 08/02/17 9:00:00 CDT Notes: (Same as: Vitamin C) Start Date: 07/04/17 Stop Date: 07/06/17 Status: Discontinued Zofran 4 mg, Route: IVP, Drug form: INJ, ONCE, Dosing Weight 59.091, kg, Priority: STAT , Start date: 07/01/17 0:51:00 CDT, Stop date: 07/01/17 0:51:00 CDT Start Date: 07/01/17 Stop Date: 07/01/17 Status: Completed Zofran 4 mg, 2 mL, Route: IVP, Drug form: INJ, Q8H, Dosing Weight 56.818, kg, PRN Nause a, Start date: 07/02/17 10:59:00 CDT, Duration: 30 day, Stop date: 08/01/17 10:5 8:00 CDT Notes: (Same as: Juan) MEDICATION WASTE Product Size: 4 mgProduct Was kallie: _0__ mg Start Date: 07/02/17 Stop Date: 07/06/17 Status: Discontinued Results BLOOD BANK RESULTS 1 2 3 Most recent to oldest [Reference Range]: O POS *Unknown* (07/06/17 12:26 PM) O POS *Unknown* (07/01/17 2:46 PM) ABO/Rh Negative (07/06/17 12:26 PM) Negative (07/01/17 2:46 PM) Antibody Scrn Product available 1 (07/06/17 11:45 AM) Product available 2 (07/01/17 3:37 AM) RBC product 1Result Comment: 07/06/2017 18:55 [id number] spoke 5to rm at 07/06/2017 18:55 2Result Comment: 07/01/2017 18:28 [id number] Called to Linwood Ward at 07/01/2017 18:28 by Je Traylor. ELECTROLYTES 1 2 3 Most recent to oldest [Reference Range]: 141 mEq/L (07/04/17 11:04 AM) 142 mEq/L (07/03/17 8:53 AM) 144 mEq/L (07/02/17 7:41 AM) Sodium Lvl [135-145 mEq/L] 3.5 mEq/L (07/04/17 11:04 AM) 3.7 mEq/L (07/03/17 8:53 AM) 3.9 mEq/L (07/02/17 7:41 AM) Potassium Lvl [3.5-5.1 mEq/L] 105 mEq/L (07/04/17 11:04 AM) 110 mEq/L *HI* (07/03/17 8:53 AM) 110 mEq/L *HI* (07/02/17 7:41 AM) Chloride Lvl [95-109 mEq/L] 28 mEq/L (07/04/17 11:04 AM) 27 mEq/L (07/03/17 8:53 AM) 26 mEq/L (07/02/17 7:41 AM) CO2 [24-32 mEq/L] 11.5 mEq/L (07/04/17 11:04 AM) 8.7 mEq/L *LOW* (07/03/17 8:53 AM) 11.9 mEq/L (07/02/17 7:41 AM) AGAP [10.0-20.0 mEq/L] CHEM PANEL 1 2 3 Most recent to oldest [Reference Range]: 0.37 mg/dL *LOW* (07/04/17 11:04 AM) 0.31 mg/dL *LOW* (07/03/17 8:53 AM) 0.36 mg/dL *LOW* (07/02/17 7:41 AM) Creatinine Lvl [0.50-1.40 mg/dL] 178 mL/min/1.73m2 1 *NA* (07/04/17 11:04 AM) 189 mL/min/1.73m2 2 *NA* (07/03/17 8:53 AM) 180 mL/min/1.73m2 3 *NA* (07/02/17 7:41 AM) eGFR 4 mg/dL *LOW* (07/04/17 11:04 AM) 4 mg/dL *LOW* (07/03/17 8:53 AM) 4 mg/dL *LOW* (07/02/17 7:41 AM) BUN [7-22 mg/dL] 11 (07/04/17 11:04 AM) 13 (07/03/17 8:53 AM) 11 (07/02/17 7:41 AM) B/C Ratio [6-25] 103 mg/dL *HI* (07/04/17 11:04 AM) 87 mg/dL (07/03/17 8:53 AM) 90 mg/dL (07/02/17 7:41 AM) Glucose Lvl [70-99 mg/dL] 6.4 g/dL (07/04/17 11:04 AM) 5.8 g/dL *LOW* (07/03/17 8:53 AM) 6.4 g/dL (07/02/17 7:41 AM) Total Protein [6.4-8.4 g/dL] 3.2 g/dL *LOW* (07/04/17 11:04 AM) 2.8 g/dL *LOW* (07/03/17 8:53 AM) 3.0 g/dL *LOW* (07/02/17 7:41 AM) Albumin Lvl [3.5-5.0 g/dL] 3.2 g/dL (07/04/17 11:04 AM) 3.0 g/dL (07/03/17 8:53 AM) 3.4 g/dL (07/02/17 7:41 AM) Globulin [2.7-4.2 g/dL] 1.0 (07/04/17 11:04 AM) 0.9 (07/03/17 8:53 AM) 0.9 (07/02/17 7:41 AM) A/G Ratio [0.7-1.6] 8.1 mg/dL *LOW* (07/04/17 11:04 AM) 7.9 mg/dL *LOW* (07/03/17 8:53 AM) 8.7 mg/dL (07/02/17 7:41 AM) Calcium Lvl [8.5-10.5 mg/dL] 2.1 mg/dL (07/04/17 11:04 AM) 2.2 mg/dL (07/03/17 8:53 AM) 2.3 mg/dL (07/02/17 7:41 AM) Magnesium Lvl [1.8-2.4 mg/dL] 18 unit/L (07/04/17 11:04 AM) 17 unit/L (07/03/17 8:53 AM) 15 unit/L (07/02/17 7:41 AM) ALT [0-65 unit/L] 27 unit/L (07/04/17 11:04 AM) 24 unit/L (07/03/17 8:53 AM) 27 unit/L (07/02/17 7:41 AM) AST [0-37 unit/L] 101 unit/L (07/04/17 11:04 AM) 82 unit/L (07/03/17 8:53 AM) 85 unit/L (07/02/17 7:41 AM) Alk Phos [39-136 unit/L] 1.6 mg/dL *HI* (07/04/17 11:04 AM) 1.3 mg/dL (07/03/17 8:53 AM) 0.8 mg/dL (07/02/17 7:41 AM) Bili Total [0.2-1.3 mg/dL] <0.05 ng/mL (07/03/17 1:27 PM) Procalcitonin Lvl [0.00-0.10 ng/mL] 1Result Comment: The eGFR is calculated using [...] 3 Most recent to oldest [Reference Range]: 22 ug/dl *LOW* (07/01/17 10:09 PM) Iron [30-160 ug/dl] 1750 ng/mL *HI* (07/01/17 10:09 PM) Ferritin Lvl [5-204 ng/mL] 15 % (07/01/17 10:09 PM) % Satur Fe [12-57 %] 125 ug/dl (07/01/17 10:09 PM) UIBC [110-370 ug/dl] 753 pg/mL (07/01/17 10:09 PM) Vitamin B12 Lvl [254-1320 pg/mL] 17.7 ng/mL (07/01/17 10:09 PM) Folate Lvl [>=3.0 ng/mL] 147 ug/dl *LOW* (07/01/17 10:09 PM) TIBC [228-428 ug/dl] TOXICOLOGY 1 2 3 Most recent to oldest [Reference Range]: 13:00 *NA* (07/04/17 11:04 AM) now *NA* (07/02/17 5:32 PM) Colbyo Tr TND 12.3 ug/ml *NA* (07/04/17 11:04 AM) 3.4 ug/ml *NA* (07/02/17 5:32 PM) Vanco Tr ENDOCRINOLOGY 1 2 3 Most recent to oldest [Reference Range]: Negative *NA* (07/04/17 11:04 AM) S Preg [Negative] URINE AND STOOL 1 2 3 Most recent to oldest [Reference Range]: Clear (07/01/17 1:14 AM) UA Turbidity [Clear] Yellow *NA* (07/01/17 1:14 AM) UA Color [Yellow] 6.0 (07/01/17 1:14 AM) UA pH [5.0-8.0] <=1.005 *NA* (07/01/17 1:14 AM) UA Spec Grav [<=1.030] Negative (07/01/17 1:14 AM) UA Glucose [Negative] Negative (07/01/17 1:14 AM) UA Blood [Negative] Negative *NA* (07/01/17 1:14 AM) UA Ketones [Negative] Negative (07/01/17 1:14 AM) UA Protein [Negative] 0.2 EU/dL (07/01/17 1:14 AM) UA Urobilinogen [0.1-1.0 EU/dL] Negative *NA* (07/01/17 1:14 AM) UA Bili [Negative] Negative (07/01/17 1:14 AM) UA Leuk Est [Negative] Negative (07/01/17 1:14 AM) UA Nitrite [Negative] 1 /HPF (07/01/17 1:14 AM) UA WBC [0-5 /HPF] 1 /HPF (07/01/17 1:14 AM) UA RBC [0-2 /HPF] Occasional /HPF *NA* (07/01/17 1:14 AM) UA Bacteria [None Seen /HPF] Occasional /LPF *NA* (07/01/17 1:14 AM) UA Sq Epi [Few /LPF] 1 /LPF (07/01/17 1:14 AM) UA Hyal Cast [0-2 /LPF] Few /LPF *NA* (07/01/17 1:14 AM) UA Mucus [None Seen /LPF] IMMUNOLOGY 1 2 3 Most recent to oldest [Reference Range]: 78.5 % *HI* (07/03/17 10:47 PM) Hgb S % [0.0-0.0 %] 15.4 % *LOW* (07/03/17 10:47 PM) Hgb A % [95.8-97.8 %] 3.7 % *HI* (07/03/17 10:47 PM) Hgb A2 % [2.2-3.2 %] 2.4 % *HI* (07/03/17 10:47 PM) Hgb F % [0.0-1.0 %] 0.0 % (07/03/17 10:47 PM) Hgb C % [0.0-0.0 %] Hemoglobin electrophoresis results demonstrate 78.5% HgbS, 3.7% of Hgb A2, 2.4% of Hgb F and 15.4% of Hgb A. These findings are most consistent with previous diagnosis of HbS/Beta 0 thalassemia status post transfusion. The electronic medical record has been reviewed for relevant history. The patient is status post RBC transfusion on 07/02/2017 and 07/04/2017. I have personally reviewed the test results and concur with the resident's interpretation. CPT 31630-CL *NA* (07/03/17 10:47 PM) Hgb Interp HEMATOLOGY 1 2 3 Most recent to oldest [Reference Range]: 8.4 K/CMM (07/06/17 5:25 AM) 9.6 K/CMM (07/05/17 5:23 AM) 11.2 K/CMM *HI* (07/04/17 11:04 AM) WBC [3.7-10.4 K/CMM] 3.55 M/CMM *LOW* (07/06/17 5:25 AM) 4.02 M/CMM *LOW* (07/05/17 5:23 AM) 4.14 M/CMM *LOW* (07/04/17 11:04 AM) RBC [4.20-5.40 M/CMM] 7.8 g/dL *LOW* (07/06/17 5:25 AM) 8.8 g/dL *LOW* (07/05/17 5:23 AM) 8.9 g/dL *LOW* (07/04/17 11:04 AM) Hgb [12.0-16.0 g/dL] 24.2 % *LOW* (07/06/17 5:25 AM) 27.4 % *LOW* (07/05/17 5:23 AM) 28.2 % *LOW* (07/04/17 11:04 AM) Hct [36.0-48.0 %] 68.3 fL *LOW* (07/06/17 5:25 AM) 68.1 fL *LOW* (07/05/17 5:23 AM) 68.1 fL *LOW* (07/04/17 11:04 AM) MCV [80.0-98.0 fL] 22.0 pg *LOW* (07/06/17 5:25 AM) 22.0 pg *LOW* (07/05/17 5:23 AM) 21.6 pg *LOW* (07/04/17 11:04 AM) MCH [27.0-31.0 pg] 32.3 g/dL (07/06/17 5:25 AM) 32.3 g/dL (07/05/17 5:23 AM) 31.6 g/dL *LOW* (07/04/17 11:04 AM) MCHC [32.0-36.0 g/dL] 19.5 % *HI* (07/06/17 5:25 AM) 19.4 % *HI* (07/05/17 5:23 AM) 19.7 % *HI* (07/04/17 11:04 AM) RDW [11.5-14.5 %] 307 K/CMM (07/06/17:25 AM) 298 K/CMM (07/05/17:23 AM) 314 K/CMM (07/04/17 11:04 AM) Platelet [133-450 K/CMM] 7.7 fL (07/06/17 5:25 AM) 8.1 fL (07/05/17 5:23 AM) 7.7 fL (07/04/17 11:04 AM) MPV [7.4-10.4 fL] 53.1 % (07/06/17 5:25 AM) 55.6 % (07/05/17 5:23 AM) 67.7 % (07/04/17 11:04 AM) Segs [45.0-75.0 %] 27.1 % (07/06/17 5:25 AM) 25.8 % (07/05/17 5:23 AM) 17.0 % *LOW* (07/04/17 11:04 AM) Lymphocytes [20.0-40.0 %] 12.5 % *HI* (07/06/17 5:25 AM) 12.4 % *HI* (07/05/17 5:23 AM) 10.2 % (07/04/17 11:04 AM) Monocytes [2.0-12.0 %] 5.8 % *HI* (07/06/17 5:25 AM) 5.0 % *HI* (07/05/17 5:23 AM) 4.2 % *HI* (07/04/17 11:04 AM) Eosinophils [0.0-4.0 %] 1.5 % *HI* (07/06/17 5:25 AM) 1.2 % *HI* (07/05/17 5:23 AM) 0.9 % (07/04/17 11:04 AM) Basophils [0.0-1.0 %] 4.5 K/CMM (07/06/17 5:25 AM) 5.3 K/CMM (07/05/17 5:23 AM) 7.6 K/CMM (07/04/17 11:04 AM) Segs-Bands # [1.5-8.1 K/CMM] 2.3 K/CMM (07/06/17 5:25 AM) 2.5 K/CMM (07/05/17 5:23 AM) 1.9 K/CMM (07/04/17 11:04 AM) Lymphocytes # [1.0-5.5 K/CMM] 1.1 K/CMM *HI* (07/06/17 5:25 AM) 1.2 K/CMM *HI* (07/05/17 5:23 AM) 1.1 K/CMM *HI* (07/04/17 11:04 AM) Monocytes # [0.0-0.8 K/CMM] 0.5 K/CMM (07/06/17 5:25 AM) 0.5 K/CMM (07/05/17 5:23 AM) 0.5 K/CMM (07/04/17 11:04 AM) Eosinophils # [0.0-0.5 K/CMM] 0.1 K/CMM (07/06/17 5:25 AM) 0.1 K/CMM (07/05/17 5:23 AM) 0.1 K/CMM (07/04/17 11:04 AM) Basophils # [0.0-0.2 K/CMM] Slight *NA* (06/30/17 6:30 PM) Polychrom 3+ *NA* (07/06/17 5:25 AM) 3+ *NA* (07/05/17 5:23 AM) 3+ *NA* (07/04/17 11:04 AM) Microcyte [None Seen] Moderate *ABN* (06/30/17 6:30 PM) Target Cell [None Seen] 1-3 per HPF (06/30/17 6:30 PM) Schistocyte [None Seen] Normal (06/30/17 6:30 PM) Plt Morph 2.4 % *HI* (07/06/17 5:25 AM) 2.6 % *HI* (07/05/17 5:23 AM) 3.6 % *HI* (07/04/17 11:04 AM) Retic Auto [0.5-1.5 %] Immunizations Not Given Vaccine Date Status Refusal Reason pneumococcal 13-valent vaccine 07/05/17 Not Given Patient Refuses Procedures No data available for this section Social History Social History Type Response Substance Abuse Use: None. Alcohol Never Smoking Status Never smoker; Exposure to Tobacco Smoke None; Cigarette Smoking Last 365 Days No; Reg Smoking Cessation Counseling No Assessment and Plan Extracted from: Title: Clinical Document Author: Antonella Wynne Date: 07/06/17 Pain Management Progress Note SUBJECTIVE: The patient states that pain is uncontrolled. Continued diffuse body pain. Current pain: 9/10 The pain medications are tolerated well. No side effects. Regular diet. Patient in no apparent distress at time of visit. Patient lying comfortably in bed. No acute events overnight. No side effects to current pain medications. REVIEWS OF SYSTEMS: Negative unless otherwise stated above. OBJECTIVE: Patient uncooperative with exam, GENERAL: Awake, alert and oriented. The patient appears to be in no apparent distress. lying in exam bed. SKIN: No cyanosis. No jaundice. EYES: EOMI. Conjunctiva pink. RESPIRATORY: Normal respiratory effort. CARDIOVASCULAR: regular rate ASSESSMENT AND PLAN: Ms. Lucas is a 21-year-old female with past medical history significant for hemoglobin SS disease with crisis. She is currently admitted for a sickle cell crisis with current retic count of 2.4. We have been consulted to assist with patient's pain management during her hospital stay. Patient has been uncooperative with exam. Patient appears comfortable. She has been seen chatting on phone and sitting in bed in no distress. Reported pain seems out of proportion to exam. From a pain management perspective we plan to continue current opioid regimen without any adjustments. We plan to continue MS Contin 30 mg Q12H for baseline pain. We also plan to continue Morphine Sulfate IR 30 mg Q4H prn moderate to severe pain. Patient may also continue IV Morphine 2 mg Q3H prn moderate to severe pain. We will continue to monitor. We have provided a discharge prescription for MS Contin 30 mg #10 CTRL:[id number] and Morphine Sulfate IR 15 #20 CTRL:[id number]. Please call with any questions or concerns. Patient will follow up with her sickle cell clinic upon discharge. Attending: Montana Joy MDPhone: Service: Internal Medicine Code status: Full Code [Ordered] Reason for Admission: ACUTE SICKLE CELL CRISIS Working [place] [facility] [place] Documented Consulting Physicians: Julianna Matson MDOffice: Service: Medicine, Neurology Dimitri Srinivasan MDOffice: Service: Infectious Disease Mike Nicolas MDOffice: Service: Infectious Disease Antonio Rankin MDOffice: (no service on file) Eula Silva I MDOffice: Service: Anesthesiology Miguel Wood MDOffice: service: Medicine, Hematology, Oncology Mayur Bear MDOffice: Service: Medicine Full Code [Ordered] Allergies: Augmentin(hives), Dilaudid(extreme memory loss) VitalsTmp(F)[id number] 07/06 08:35 46520 28% 07/06 08:0498.9---123/438107--- 07/06 03:5698.928721/011906 2.0L/m 07/06 03:21 2.0L/m 07/06 00:0598.372853/130966 2.0L/m 24 Hr Tmax: 98.9F (37.17c) at 07/06 08:04Vital Signs are the last 5 in the past 48 hours. Medications (23) Active Scheduled Meds (12): 07/04/17 ascorbic acid (Vitamin C) 500 mg PO Daily 07/03/17 cholecalciferol 1,000 IntlUnit PO Daily 07/04/17 cyanocobalamin (Vitamin B12) 1,000 microgram PO Daily 07/05/17 docusate-senna (docusate-senna 50 mg-8.6 mg oral tablet) 2 tab PO BID 07/02/17 folic acid 1 mg PO QID 07/04/17 folic acid 1 mg PO Daily 07/02/17 gabapentin (gabapentin 300 mg oral capsule) 300 mg PO Q8H 07/04/17 hydrocortisone topical (hydrocortisone topical 1% cream) 1 appl TOP TID 07/04/17 levofloxacin (Levaquin) 750 mg PO [id number] 07/06/17 morphine Sulfate (MS Contin) 30 mg PO [id number] 07/04/17 pyridoxine 100 mg PO Daily 07/04/17 riboflavin 100 mg PO Daily Unscheduled Meds: None PRN Meds (7): 07/02/17 acetaminophen (Tylenol) 650 mg PO Q4H 07/05/17 diphenhydrAMINE (Benadryl) 25 mg PO TID 07/05/17 morphine Sulfate 30 mg PO Q4H 07/05/17 morphine Sulfate 2 mg IVP Q3H 07/01/17 naloxone 0.04 mg IVP Q2MIN 07/02/17 ondansetron (Zofran) 4 mg IVP Q8H 07/01/17 sodium chloride (Saline Flush 0.9%) 10 ml IVP PRN One Time Meds (2): 07/05/17 (Completed) morphine Sulfate (MS Contin) 30 mg PO ONCE 07/06/17 (Completed) morphine Sulfate (MS Contin) 30 mg PO ONCE Continuous Infusions (2): 07/01/17 sodium chloride 0.9% 1000 ml INJ 1,000 mL 1,000 mL 150 ml/hr 07/01/17 sodium chloride 0.9% INJ 250 mL 250 mL artificial stone setter for use with blood product administration I&ORecordInOutBal 09/1424hr Tot 643 0 643 1324hr Tot 7 0 7 Lines, Tubes, and Drains: 07/05/2017 09:00 Peripheral Lines: Wrist Right 20 gauge Over the needle catheter 07/03/2017 20:00 Peripheral Lines: Forearm Left Over the needle catheter Labs (Last four charted values) WBC 8.4(SEP 14)9.6(JUN 13)H 11.2(JUN 12)H 11.4(JUN 11) Hgb L 7.8(JUN 14)L 8.8(JUN 13)L 8.9(SEP 12)L 7.3(SEP 11) Hct L 24.2(JUN 14)L 27.4(JUN 13)L 28.2(JUN 12)L 23.1(JUN 11) Plt 307(JUN 14)298(SEP 13)314(SEP 12)308(SEP 11) Na 141(SEP 12)142(SEP 11)144(SEP 10)140(JUN 08) K 3.5(JUN 12)3.7(SEP 11)3.9(JUN 10)3.9(JUN 08) CO2 28(JUN 12)27(SEP 11)26(SEP 10)30(JUN 08) Cl 105(JUN 12)H 110(SEP 11)H 110(JUN 10)105(JUN 08) Cr L 0.37(JUN 12)L 0.31(SEP 11)L 0.36(SEP 10)L 0.48(JUN 08) BUN L 4(JUN 12)L 4(JUN 11)L 4(JUN 10)L 4(JUN 08) Glucose Random H 103(JUN 12)87(SEP 11)90(SEP 10)91(SEP 08) Mg 2.1(JUN 12)2.2(SEP 11)2.3(SEP 10) Ca L 8.1(JUN 12)L 7.9(SEP 11)8.7(SEP 10)9.3(JUN 08) Extracted from: Title: [facility] Hospital[facility] Author: Arianna Spangler Date: 07/04/17 José MEEKS Impression and Plan Diagnosis Acute sickle cell crisis (PDU30-HK D57.00, Working, Medical). Irregular menses (RSN15-HF N92.6, Working, Medical). Discussed with patient this is resumption of her menses and it may still be irregular, she should follow up up with her program administrator upon discharge. Nothing to do from [facility] at this time. [facility] tatum sign off , pleasse call us back if you have any questions or concerns, thank you.
--- OUTSIDE RECORDS SUMMARY | 2019-03-11 17:22 | XMS REPORT | Summary of Care ---
Author Author [facility] Organization [facility] Address Unknown Phone Unavailable Encounter GINGER Hobbs(ARSENIO) [id number] Date(s): 07/14/17 - 07/28/[address] [facility] [address] [employer] provided by [facility] [employer] [facility] [employer] [facility] [place] [address]- Discharge Disposition: Home or Self Care Attending Physician: Vladimir King MD Admitting Physician: Jeana Kimball MD Vital Signs 1 2 3 Most recent to oldest [Reference Range]: 162.56 cm (07/15/17 6:47 AM) 162.56 cm (07/14/17 9:14 PM) Height 98.0 DegF (07/28/17 11:14 AM) 97.9 DegF (07/28/17 8:45 AM) 98.1 DegF (07/28/17 5:47 AM) Temperature Oral [96.4-99.1 DegF] 113/67 mmHg (07/28/17 11:14 AM) 109/71 mmHg (07/28/17 8:45 AM) 123/78 mmHg (07/28/17 5:47 AM) Blood Pressure [90-140/60-90 mmHg] 19 BRMIN (07/28/17 11:14 AM) 19 BRMIN (07/28/17 8:45 AM) 18 BRMIN (07/28/17 5:47 AM) Respiratory Rate [14-20 BRMIN] 92 bpm (07/28/17 11:14 AM) 81 bpm (07/28/17 8:45 AM) 16 bpm *LOW* (07/28/17 5:47 AM) Peripheral Pulse Rate [60-100 bpm] 54.545 kg (07/15/17 6:47 AM) 56.818 kg (07/14/17 9:14 PM) Weight 20.64 m2 (07/15/17 6:47 AM) 21.5 m2 (07/14/17 9:14 PM) Body Mass Index Problem List Condition Effective Dates Status Health Status Informant Anxiety disorder, Active unspecified(Confirme d) Cardiomegaly(Confirm Active ed) Sickle cell Active crisis(Confirmed) Depression(Confirmed Active ) Allergies, Adverse Reactions, Alerts Substance Reaction Severity Status Augmentin hives Active Dilaudid Augmentin Active extreme memory loss Medications Advil 600 mg, Route: PO, Drug form: TAB, Q6H, Dosing Weight 54.545, kg, Start date: 18:04:00 CDT, Duration: 30 day, Stop date: 08/18/17 18:00:00 CDT Notes: (Same as: Motrin)"Do Not Crush" Give with food. Start Date: 07/19/17 Stop Date: 07/20/17 Status: Discontinued APAP/butalbital/caffeine 1 tab, Route: PO, Drug Form: TAB, Q6H, PRN Headache 1-5, Start date: 07/18/17 17 :11:00 CDT, Stop date: 08/17/17 17:10:00 CDT Notes: (gxkojskcmkujp-xfsjxnkvyv-sxplrrpo 325-50-40mg) Do not exceed 4 gm/day o f acetaminophen. (Same as: Esgic, Fioricet) Start Date: 07/18/17 Stop Date: 07/28/17 Status: Discontinued Ativan 1 mg, 0.5 mL, Route: IV, Drug form: INJ, Q8H, Dosing Weight 54.545, kg, PRN Agit ation, Start date: 07/26/17 22:56:00 CDT, Duration: 30 day, Stop date: 08/25/17 22:55:00 CDT Notes: (Same as: Ativan) Start Date: 07/26/17 Stop Date: 07/28/17 Status: Discontinued benzocaine otic 20% solution 4 drp, Route: OTIC, Q4H, Drug form: SOLN, PRN Pain Score 1-5, Start date: 17:57:00 CDT, Duration: 30 day, Stop date: 08/20/17 17:56:00 CDT Notes: For Otic Use Only (Same As: Oticaine, Americaine) Start Date: 07/21/17 Stop Date: 07/22/17 Status: Discontinued buPROPion 150 mg=1 tab, PO, QAM, 0 Refill(s) Start Date: 07/28/17 Status: Ordered buPROPion 150 mg, 1 tab, Route: PO, Drug form: ERTAB, QAM, Dosing Weight 56.818, kg, Start date: 07/15/17 9:00:00 CDT, Duration: 30 day, Stop date: 08/13/17 9:00:00 CDT Notes: (Same as: Wellbutrin XL)"Do Not Crush" Start Date: 07/15/17 Stop Date: 07/28/17 Status: Discontinued cefepime 1 gm, Route: IV, Drug form: INJ, Q8H, Dosing Weight 56.818, kg, Start date: 06/24 01/06 8:00:00 CDT, Duration: 30 day, Stop date: 08/14/17 2:30:00 CDT, ABX Indicat ion: Pneumonia Notes: (Same As: Maxipime) MEDICATION WASTE Product Size: 1000 mgProduc t Wasted: ___ mg Start Date: 07/15/17 Stop Date: 07/18/17 Status: Discontinued cholecalciferol 1,000 IntlUnit, 1 tab, Route: PO, Drug form: TAB, Daily, Dosing Weight 56.818, k g, Start date: 07/15/17 9:00:00 CDT, Duration: 30 day, Stop date: 08/13/17 9:00: 00 CDT Notes: Same as : Vitamin D3 Start Date: 07/15/17 Stop Date: 07/28/17 Status: Discontinued Colace 100 mg oral capsule 100 mg, 1 cap, Route: PO, Drug form: CAP, BID, Dosing Weight 54.545, kg, Start d ate: 07/18/17 17:00:00 CDT, Duration: 30 day, Stop date: 08/17/17 9:00:00 CDT Notes: (Same as: Colace) (Do Not Crush) Start Date: 07/18/17 Stop Date: 07/28/17 Status: Discontinued Debrox Earwax Removal Kit 6.5% otic solution 5 drp, Route: BOTH EARS, Drug Form: SOLN, Dosing Weight 54.545, kg, TID, Start d ate: 07/21/17 13:00:00 CDT, Duration: 1 day, Stop date: 07/22/17 9:00:00 CDT Notes: (carbamide peroxide 6.5% 15 ml otic SOLN) (Same As: Debrox) Start Date: 07/21/17 Stop Date: 07/22/17 Status: Completed Deep Sea Nasal [place] 2 spray, Route: NASAL, BID, Drug form: SOLN, Start date: 07/19/17 10:00:00 CDT, Duration: 30 day, Stop date: 08/18/17 9:00:00 CDT Notes: (Same as: [place], Deep Sea Nasal [place]). Start Date: 07/19/17 Stop Date: 07/28/17 Status: Discontinued docusate-senna 50 mg-8.6 mg oral tablet 2 tab, PO, BID, PRN Constipation, X 30 day, # 120 tab, 0 Refill(s), Pharmacy: [facility] [id number] Start Date: 07/28/17 Stop Date: 08/27/17 Status: Ordered docusate-senna 50 mg-8.6 mg oral tablet 2 tab, Route: PO, Drug Form: TAB, Dosing Weight 56.818, kg, BID, PRN Constipatio n, Start date: 07/15/17 2:08:00 CDT, Duration: 30 day, Stop date: 08/14/17 2:07: 00 CDT Notes: (Same as Cristi-S) Equiv. to Nasima-Colace. Start Date: 07/15/17 Stop Date: 07/28/17 Status: Discontinued Dulcolax Laxative 10 mg, 1 supp, Route: NE, Drug form: SUPP, Daily, Dosing Weight 54.545, kg, PRN Constipation, Start date: 07/18/17 14:44:00 CDT, Duration: 30 day, Stop date: 14:43:00 CDT Notes: (Same As: Dulcolax, Bisco-Lax) Start Date: 07/18/17 Stop Date: 07/28/17 Status: Discontinued Excedrin Migraine 1 tab, Route: PO, Drug Form: TAB, Dosing Weight 54.545, kg, Q6H, PRN Headache 1- 5, Start date: 07/18/17 16:38:00 CDT, Duration: 30 day, Stop date: 08/17/17 16:3 7:00 CDT Start Date: 07/18/17 Stop Date: 07/18/17 Status: Deleted fentaNYL 100 microgram, Route: IVP, ONCE, Dosing Weight 56.818, kg, Priority: STAT, Start date: 07/14/17 23:22:00 CDT, Stop date: 07/14/17 23:22:00 CDT Start Date: 07/14/17 Stop Date: 07/14/17 Status: Completed fentaNYL patch 75 mcg/hr 1 patch, Route: TOP, Drug Form: ERFILM, Dosing Weight 54.545, kg, Q72H, Start da te: 07/21/17 19:00:00 CDT, Duration: 14 day, Stop date: 08/02/17 19:00:00 CDT Notes: (Same as: Duragesic)Check for product integrity. Apply to intact skin"Re move old patch before application of new patch" Start Date: 07/21/17 Stop Date: 07/25/17 Status: Discontinued folic acid 1 mg, 1 tab, Route: PO, Drug form: TAB, Daily, Dosing Weight 56.818, kg, Start d ate: 07/15/17 9:00:00 CDT, Duration: 30 day, Stop date: 08/13/17 9:00:00 CDT Notes: (Same as: Folvite) Start Date: 07/15/17 Stop Date: 07/28/17 Status: Discontinued gabapentin 300 mg, 1 cap, Route: PO, Drug form: CAP, Q8H, Dosing Weight 54.545, kg, Start d ate: 07/17/17 17:00:00 CDT, Duration: 30 day, Stop date: 08/16/17 16:00:00 CDT Notes: (Same as: Neurontin) Start Date: 07/17/17 Stop Date: 07/28/17 Status: Discontinued gabapentin 100 mg oral capsule 100 mg, 1 cap, Route: PO, Drug form: CAP, Q8H, Dosing Weight 54.545, kg, Start d ate: 07/15/17 16:00:00 CDT, Duration: 30 day, Stop date: 08/14/17 8:00:00 CDT Notes: (Same as: Neurontin) Start Date: 07/15/17 Stop Date: 07/17/17 Status: Discontinued ibuprofen 600 mg, Route: IV, Q8H, Dosing Weight 54.545, kg, Start date: 07/26/17 16:00:00 CDT, Duration: 30 day, Stop date: 08/25/17 8:00:00 CDT Start Date: 07/26/17 Stop Date: 07/26/17 Status: Canceled ibuprofen 600 mg, 1 tab, Route: PO, Drug form: TAB, Q8H, Dosing Weight 54.545, kg, Start d ate: 07/26/17 16:00:00 CDT, Duration: 30 day, Stop date: 08/25/17 8:00:00 CDT Notes: (Same as: Naomi)"Do Not Crush" Take with food. Start Date: 07/26/17 Stop Date: 07/28/17 Status: Discontinued ibuprofen 600 mg, 1 tab, Route: PO, Drug form: TAB, Q8H, Dosing Weight 54.545, kg, Start d ate: 07/20/17 8:00:00 CDT, Duration: 5 day, Stop date: 07/25/17 0:00:00 CDT Notes: (Same as: Naomi) Start Date: 07/20/17 Stop Date: 07/25/17 Status: Completed ibuprofen 400 mg oral tablet 800 mg, 1 tab, Route: PO, Drug form: TAB, TID-Meals, Dosing Weight 56.818, kg, S tart date: 07/15/17 8:00:00 CDT, Duration: 30 day, Stop date: 08/13/17 17:00:00 CDT Notes: (Same as: Allyrin)"Do Not Crush" Take with food. Start Date: 07/15/17 Stop Date: 07/15/17 Status: Discontinued ibuprofen 600 mg oral tablet 600 mg=1 tab, PO, Q8H, X 10 day, # 30 tab, 0 Refill(s), Pharmacy: [facility] [id number] Start Date: 07/28/17 Stop Date: 08/07/17 Status: Ordered Isolyte S PH-7.4 (Bolus) IV 1,000 mL, Route: IV, Dosing Weight 56.818, kg, ONCE, Start date: 07/14/17 23:22: 00 CDT, Stop date: 07/14/17 23:22:00 CDT Start Date: 07/14/17 Stop Date: 07/14/17 Status: Completed ketOROLAC 15 mg, 1 mL, Route: IVP, Drug form: INJ, Q6H, Dosing Weight 54.545, kg, PRN Pain Score 4-6, Start date: 07/15/17 15:44:00 CDT, Duration: 4 day, Stop date: 07/19 15:43:00 CDT Notes: (Same as:Toradol) IV bolus must be given >15 seconds. Give IM administration slowly and deeply into the muscle. Not for use > 4 days. Start Date: 07/15/17 Stop Date: 07/16/17 Status: Discontinued ketOROLAC 15 mg, 1 mL, Route: IVP, Drug form: INJ, Q6H, Dosing Weight 54.545, kg, Start da te: 07/16/17 18:00:00 CDT, Duration: 4 day, Stop date: 07/20/17 12:00:00 CDT Notes: (Same as:Toradol) IV bolus must be given >15 seconds. Give IM administration slowly and deeply into the muscle. Not for use > 4 days. Start Date: 07/16/17 Stop Date: 07/18/17 Status: Discontinued Levaquin 750 mg, 1 tab, Route: PO, Drug form: TAB, [id number], Dosing Weight 54.545, kg, Sta rt date: 07/18/17 13:00:00 CDT, Duration: 4 day, Stop date: 07/21/17 13:00:00 CD T, ABX Indication: Pneumonia Notes: Do not give w/antacids, dairy pdt & mineralsTake 1 hr before or 2 hr after dairy products Start Date: 07/18/17 Stop Date: 07/21/17 Status: Completed Lovenox 40 mg, 0.4 mL, Route: SUB-Q, Drug form: INJ, [id number], Dosing Weight 54.545, kg, Start date: 07/15/17 17:00:00 CDT, Duration: 30 day, Stop date: 08/13/17 17:00: 00 CDT Notes: (Same as: Lovenox) Start Date: 07/15/17 Stop Date: 07/28/17 Status: Discontinued methocarbamol 1,000 mg, 2 tab, Route: PO, Drug form: TAB, Q8H, Dosing Weight 54.545, kg, Start date: 07/18/17 16:00:00 CDT, Duration: 30 day, Stop date: 08/17/17 8:00:00 CDT Notes: (Same as:Robaxin) Start Date: 07/18/17 Stop Date: 07/28/17 Status: Discontinued methocarbamol 500 mg oral tablet 1,000 mg=2 tab, PO, Q8H, X 7 day, # 42 tab, 0 Refill(s), Pharmacy: [facility] [id number] Start Date: 07/28/17 Stop Date: 08/04/17 Status: Ordered MiraLax 17 gm, 1 pkt, Route: PO, Drug form: PWDR, BID, Dosing Weight 54.545, kg, Start d ate: 07/18/17 17:00:00 CDT, Duration: 30 day, Stop date: 08/17/17 9:00:00 CDT Notes: Dissolve in 8 oz of water or juice.(Same as: Miralax) Start Date: 07/18/17 Stop Date: 07/28/17 Status: Discontinued morphine 15 mg oral tablet, immediate release 15 mg, 1 tab, Route: PO, Drug form: TAB, Q6H, Dosing Weight 54.545, kg, Start da te: 07/18/17 12:00:00 CDT, Duration: 30 day, Stop date: 08/17/17 6:00:00 CDT Notes: (Same as:MORPhine Sulfate) Start Date: 07/18/17 Stop Date: 07/19/17 Status: Discontinued morphine extended release 60 mg, 2 tab, Route: PO, Drug form: ERTAB, Q12H, Dosing Weight 54.545, kg, Start date: 07/27/17 22:00:00 CDT, Duration: 30 day, Stop date: 08/26/17 21:00:00 CDT Notes: Do not crush (Same as:Oramorph SR, MS Contin) Start Date: 07/27/17 Stop Date: 07/28/17 Status: Discontinued morphine extended release 60 mg, 2 tab, Route: PO, Drug form: ERTAB, Q12H, Dosing Weight 54.545, kg, Start date: 07/25/17 9:00:00 CDT, Duration: 30 day, Stop date: 08/23/17 21:00:00 CDT Notes: Do not crush (Same as:Oramorph SR, MS Contin) Start Date: 07/25/17 Stop Date: 07/27/17 Status: Discontinued morphine extended release 30 mg, 2 tab, Route: PO, Drug form: ERTAB, ONCE, Dosing Weight 54.545, kg, Start date: 07/25/17 17:42:00 CDT, Stop date: 07/25/17 17:42:00 CDT Notes: Do not crush (Same as:Oramorph SR, MS Contin) Start Date: 07/25/17 Stop Date: 07/25/17 Status: Completed morphine Sulfate 10 mg, Route: IV, ONCE, Dosing Weight 56.818, kg, Start date: 07/15/17 4:00:00 C DT, Stop date: 07/15/17 4:00:00 CDT Start Date: 07/15/17 Stop Date: 07/15/17 Status: Completed morphine Sulfate 4 mg, 1 mL, Route: IVP, Drug form: SOLN, ONCE, Dosing Weight 54.545, kg, Start d ate: 07/21/17 7:46:00 CDT, Stop date: 07/21/17 7:46:00 CDT Notes: (Same as:MORPhine Sulfate) Start Date: 07/21/17 Stop Date: 07/21/17 Status: Completed morphine Sulfate 4 mg, 1 mL, Route: IVP, Drug form: SOLN, ONCE, Dosing Weight 54.545, kg, Start d ate: 07/24/17 15:47:00 CDT, Stop date: 07/24/17 15:47:00 CDT Notes: (Same as:MORPhine Sulfate) Start Date: 07/24/17 Stop Date: 07/24/17 Status: Completed morphine Sulfate 10 mg, Route: IV, ONCE, Dosing Weight 56.818, kg, Start date: 07/15/17 5:36:00 C DT, Stop date: 07/15/17 5:36:00 CDT Start Date: 07/15/17 Stop Date: 07/15/17 Status: Completed morphine Sulfate 15 mg, 1 tab, Route: PO, Drug form: TAB, Q4H, Dosing Weight 54.545, kg, PRN Pain Score 7-10, Start date: 07/27/17 17:58:00 CDT, Duration: 30 day, Stop date: 02/06 17:57:00 CDT Notes: (Same as:MORPhine Sulfate) Start Date: 07/27/17 Stop Date: 07/28/17 Status: Discontinued morphine Sulfate 4 mg, Route: IV, Q8H, Dosing Weight 54.545, kg, Start date: 07/26/17 16:00:00 CD T, Duration: 30 day, Stop date: 08/25/17 8:00:00 CDT Start Date: 07/26/17 Stop Date: 07/26/17 Status: Canceled morphine Sulfate 4 mg, 1 mL, Route: IVP, Drug form: SOLN, Q8H, Dosing Weight 54.545, kg, PRN Pain Score 7-10, Start date: 07/26/17 12:16:00 CDT, Duration: 30 day, Stop date: 01/06 12:15:00 CDT Notes: (Same as:MORPhine Sulfate) Start Date: 07/26/17 Stop Date: 07/27/17 Status: Discontinued morphine Sulfate 20 mg, Route: PO, Q4H, Dosing Weight 54.545, kg, PRN Pain Score 7-10, Start date : 07/27/17 17:53:00 CDT, Duration: 30 day, Stop date: 08/26/17 17:52:00 CDT Start Date: 07/27/17 Stop Date: 07/27/17 Status: Discontinued morphine Sulfate 4 mg, Route: IVP, Drug form: SOLN, Q8H, Dosing Weight 54.545, kg, Start date: 16:00:00 CDT, Duration: 30 day, Stop date: 08/26/17 8:00:00 CDT Start Date: 07/27/17 Stop Date: 07/27/17 Status: Canceled morphine Sulfate 4 mg, 1 mL, Route: IVP, Drug form: SOLN, Q6H, Dosing Weight 54.545, kg, PRN Pain Score 7-10, Start date: 07/27/17 12:47:00 CDT, Duration: 30 day, Stop date: 02/06 12:46:00 CDT Notes: (Same as:MORPhine Sulfate) Start Date: 07/27/17 Stop Date: 07/27/17 Status: Discontinued morphine Sulfate 10 mg, Route: IVP, ONCE, Dosing Weight 56.818, kg, Priority: STAT, Start date: 07/15/17 1:07:00 CDT, Stop date: 07/15/17 1:07:00 CDT Start Date: 07/15/17 Stop Date: 07/15/17 Status: Completed morphine Sulfate 4 mg, 1 mL, Route: IVP, Drug form: SOLN, Q6H, Dosing Weight 54.545, kg, PRN Pain Score 7-10, Start date: 07/25/17 10:21:00 CDT, Duration: 30 day, Stop date: 12/09 10:20:00 CDT Notes: (Same as:MORPhine Sulfate) Start Date: 07/25/17 Stop Date: 07/26/17 Status: Discontinued morphine Sulfate 4 mg, 1 mL, Route: IVP, Drug form: SOLN, ONCE, Dosing Weight 54.545, kg, Start d ate: 07/16/17 1:29:00 CDT, Stop date: 07/16/17 1:29:00 CDT Notes: (Same as:MORPhine Sulfate) Start Date: 07/16/17 Stop Date: 07/16/17 Status: Completed morphine Sulfate 8 mg, Route: IVP, ONCE, Dosing Weight 56.818, kg, Priority: STAT, Start date: 23:48:00 CDT, Stop date: 07/14/17 23:48:00 CDT Start Date: 07/14/17 Stop Date: 07/15/17 Status: Completed morphine Sulfate 4 mg, 1 mL, Route: IVP, Drug form: SOLN, ONCE, Dosing Weight 54.545, kg, Start d ate: 07/24/17 8:37:00 CDT, Stop date: 07/24/17 8:37:00 CDT Notes: (Same as:MORPhine Sulfate) Start Date: 07/24/17 Stop Date: 07/24/17 Status: Completed MORPhine sulfate [employer]NER 30 mg/30 ml INJ syringe 30 mg 30 mg, 30 mL, Route: IV, [employer]NER Dose: 2.5 mg, SERVICE PL[employer]NER Lockout: 10 minutes, Continuous Basal Rate: 0 mg, 4 Hour Limit (In MG): 60, Drug Form: INJ, Continuous, Start da te: 07/26/17 12:30:00 CDT Notes: Dose: Delay: Basal rate: 4hr limit:( Same as:Berna) Start Date: 07/26/17 Stop Date: 07/26/17 Status: Discontinued MORPhine sulfate [employer]ICE [employer]NER 30 mg/30 ml INJ syringe 30 mg 30 mg, 30 mL, Route: IV, Initial Loading Dose: 2 mg, SERVICE PLANNER Dose: 2.5 mg, SERVICE PLANNER Lock out: 10 minutes, Continuous Basal Rate: 0 mg, 4 Hour Limit (In MG): 85, Drug For m: INJ, Continuous, Start date: 07/17/17 15:30:00 CDT, Duration: 30 day, Stop da te: ... Notes: (Same as:Berna) Start Date: 07/17/17 Stop Date: 07/26/17 Status: Discontinued MORPhine sulfate [employer]ICE [employer]NER 30 mg/30 ml INJ syringe 30 mg 30 mg, 30 mL, Route: IV, SERVICE PL[employer]NER Dose: 2.5 mg, SERVICE PLANNER Lockout: 10 minutes, Continuous Basal Rate: 0 mg, 4 Hour Limit (In MG): 60, Drug Form: INJ, Continuous, Start da te: 07/26/17 16:00:00 CDT Notes: Dose: Delay: Basal rate: 4hr limit:( Same as:Berna) Start Date: 07/26/17 Stop Date: 07/27/17 Status: Discontinued MORPhine sulfate [employer]ICE [employer]NER 30 mg/30 ml INJ syringe 30 mg 30 mg, 30 mL, Route: IV, Initial Loading Dose: 2 mg, SERVICE PLANNER Dose: 0.5 mg, SERVICE PL[employer]NER Lock out: 10 minutes, Continuous Basal Rate: 1 mg, 4 Hour Limit (In MG): 16, Drug For m: INJ, Continuous, Start date: 07/15/17 7:30:00 CDT, Stop date: 08/14/17 7:29:0 0 CDT Notes: Dose: Delay: Basal rate: 4hr limit:( Same as:Berna) Start Date: 07/15/17 Stop Date: 07/16/17 Status: Discontinued MORPhine sulfate [employer]ICE [employer]NER 30 mg/30 ml INJ syringe 30 mg 30 mg, 30 mL, Route: IV, Initial Loading Dose: 2 mg, SERVICE PL[employer]NER Dose: 1.5 mg, SERVICE PL[employer]NER Lock out: 7 minutes, Continuous Basal Rate: 2 mg, 4 Hour Limit (In MG): 30, Drug Form : INJ, Continuous, Start date: 07/16/17 17:00:00 CDT, Duration: 30 day, Stop marcus e: 08/15/17... Notes: Dose: Delay: Basal rate: 4hr limit:( Same as:Berna) Start Date: 07/16/17 Stop Date: 07/17/17 Status: Discontinued MS Contin 30 mg oral tablet, extended release 30 mg=1 tab, PO, BID, # 14 tab, 0 Refill(s) Start Date: 07/28/17 Stop Date: 08/04/17 Status: Ordered Multiple Vitamins oral tablet 1 tab, PO, Daily, # 30 tab, 0 Refill(s), Pharmacy: [facility] [id number] Start Date: 07/28/17 Stop Date: 08/27/17 Status: Ordered multivitamin 1 tab, Route: PO, Drug Form: TAB, Dosing Weight 56.818, kg, Daily, Start date: 0 07/15/17 9:00:00 CDT, Duration: 30 day, Stop date: 08/13/17 9:00:00 CDT Notes: (Same as:Aries)WASTE: F/P - Black; E - Municipal Trash Bin Take with antolin d. Start Date: 07/15/17 Stop Date: 07/28/17 Status: Discontinued naloxone 0.04 mg, 0.1 mL, Route: IVP, Drug form: INJ, Q2MIN, Dosing Weight 54.545, kg, NE N Narcotic Reversal, Start date: 07/15/17 7:30:00 CDT, Duration: 30 day, Stop da te: 08/14/17 7:29:00 CDT Notes: Same as Narcan Start Date: 07/15/17 Stop Date: 07/21/17 Status: Discontinued naloxone 0.04 mg, 0.1 mL, Route: IVP, Drug form: INJ, Q2MIN, Dosing Weight 54.545, kg, NE N Narcotic Reversal, Start date: 07/16/17 16:32:00 CDT, Duration: 30 day, Stop d ate: 08/15/17 16:31:00 CDT Notes: Same as Narcan Start Date: 07/16/17 Stop Date: 07/28/17 Status: Discontinued Nasal Mist 0.05% nasal spray 2 spray, Route: NASAL, Dosing Weight 54.545, kg, BID, Start date: 07/19/17 17:00 :00 CDT, Duration: 30 day, Stop date: 08/18/17 9:00:00 CDT Start Date: 07/19/17 Stop Date: 07/19/17 Status: Deleted Farber 10/325 oral tablet 1 tab, PO, Q6H, PRN for pain, X 6 day, # 24 tab, 0 Refill(s) Start Date: 07/28/17 Stop Date: 08/03/17 Status: Ordered Farber 5/325 oral tablet 1 tab, Route: PO, Drug Form: TAB, Dosing Weight 54.545, kg, Q6H, PRN Pain Score 4-6, Start date: 07/16/17 8:06:00 CDT, Duration: 30 day, Stop date: 08/15/17 8:0 5:00 CDT Notes: (Same as: Farber 325/5) Do not exceed 4gm/day of acetaminophen. Start Date: 07/16/17 Stop Date: 07/19/17 Status: Discontinued ondansetron 4 mg, 2 mL, Route: IVP, Drug form: INJ, Q6H, Dosing Weight 56.818, kg, PRN Nause a & Vomiting, Start date: 07/15/17 2:01:00 CDT, Duration: 30 day, Stop date: 08/14/17 2:00:00 CDT Notes: (Same as: Juan) MEDICATION WASTE Product Size: 4 mgProduct Was kallie: ___ mg Start Date: 07/15/17 Stop Date: 07/28/17 Status: Discontinued pantoprazole 40 mg, 1 tab, Route: PO, Drug form: ECTAB, Daily, Dosing Weight 56.818, kg, Star t date: 07/15/17 9:00:00 CDT, Duration: 30 day, Stop date: 08/13/17 9:00:00 CDT Notes: Tablet should not be chewed or crushed.(Same as: Protonix) Start Date: 07/15/17 Stop Date: 07/28/17 Status: Discontinued pantoprazole 40 mg oral enteric coated tablet 40 mg=1 tab, PO, Daily, # 30 tab, 0 Refill(s), Pharmacy: [id number] Start Date: 07/28/17 Status: Ordered polyethylene glycol 3350 oral powder for reconstitution 17 gm, PO, BID, X 7 day, # 255 gm, 0 Refill(s), Pharmacy: [id number] Start Date: 07/28/17 Stop Date: 08/04/17 Status: Ordered potassium chloride 40 mEq, 2 tab, Route: PO, Drug form: ERTAB, ONCE, Dosing Weight 54.545, kg, Star t date: 07/16/17 11:25:00 CDT, Stop date: 07/16/17 11:25:00 CDT Notes: (Same as: K-Dur 20)"Do Not Crush" With food and full glass of water Start Date: 07/16/17 Stop Date: 07/16/17 Status: Completed senna 8.6 mg, 1 tab, Route: PO, Drug Form: TAB, Dosing Weight 54.545, kg, Daily, Start date: 07/18/17 15:30:00 CDT, Duration: 30 day, Stop date: 08/17/17 9:00:00 CDT Notes: (Same as: Senokot) Start Date: 07/18/17 Stop Date: 07/28/17 Status: Discontinued simethicone 80 mg, 1 tab, Route: CHEW, Drug form: CHEWTAB, QID, Dosing Weight 54.545, kg, NE N Gas, Start date: 07/25/17 17:36:00 CDT, Duration: 30 day, Stop date: 08/24/17 17:35:00 CDT Notes: (Same as: Ashlee) Start Date: 07/25/17 Stop Date: 07/28/17 Status: Discontinued sodium chloride 0.9% 1000 ml INJ 1,000 mL 1,000 mL, Rate: 125 ml/hr, Infuse over: 8 hr, Route: IV, Dosing Weight 56.818 kg , Total Volume: 1,000, Start date: 07/15/17 2:26:00 CDT, Duration: 30 day, Stop date: 08/14/17 2:25:00 CDT Start Date: 07/15/17 Stop Date: 07/28/17 Status: Discontinued sodium chloride 0.9% INJ 250 mL 250 mL, Rate: call center agent for use with blood product administration, Dosing Weight 5 4.545, kg, Route: IV, Total Volume: 250, Start Date: 07/21/17 5:42:00 CDT, Durat ion: 30 day, Stop date: 08/20/17 5:41:00 CDT, Replace Every: 24 hr Start Date: 07/21/17 Stop Date: 07/27/17 Status: Discontinued sodium chloride 0.9% INJ 250 mL 250 mL, 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 (Same As: Aarti) Start Date: 07/18/17 Stop Date: 07/28/17 Status: Discontinued tramadol 50 mg oral tablet 50 mg, 1 tab, Route: PO, Drug form: TAB, Q4H, Dosing Weight 54.545, kg, Start da te: 07/15/17 16:00:00 CDT, Duration: 30 day, Stop date: 08/14/17 12:00:00 CDT Notes: Not to exceed 400mg/day. (Same As: Ultram) Start Date: 07/15/17 Stop Date: 07/18/17 Status: Discontinued Tylenol 650 mg, 2 tab, Route: PO, Drug form: TAB, Q6H, Dosing Weight 54.545, kg, PRN Ksenia n 1-3/Temp > 100.4 F, Start date: 07/19/17 15:42:00 CDT, Duration: 30 day, Stop date: 08/18/17 15:41:00 CDT Notes: Do not exceed 4 gm/day. (Same as: Tylenol) Start Date: 07/19/17 Stop Date: 07/28/17 Status: Discontinued vancomycin 1 gm, Route: IV, Drug form: INJ, Q12H, Dosing Weight 56.818, kg, Start date: 9:00:00 CDT, Duration: 30 day, Stop date: 08/13/17 21:00:00 CDT, ABX Indic ation: Pneumonia Notes: TIME CRITICAL MEDICATION(Same As: Vancocin)Infusion rate< 1000 mg: infuse over 1 [id number] - 1500 mg: infuse over 1.5 [id number] - 2000 mg: infuse over 2 hours> 2001 mg: infuse over 2.5 hours MEDICATION WASTE Product Size: 1000 mgProduct Wasted: ___ mg Start Date: 07/15/17 Stop Date: 07/15/17 Status: Discontinued vancomycin 1 gm, Route: IVPB, Drug form: INJ, [id number], Dosing Weight 56.818, kg, Start date: 07/15/17 17:00:00 CDT, Duration: 30 day, Stop date: 08/14/17 9:00:00 CDT, ABX I ndication: Pneumonia Notes: TIME CRITICAL MEDICATION(Same As: Vancocin)Infusion rate< 1000 mg: infuse over 1 [id number] - 1500 mg: infuse over 1.5 [id number] - 2000 mg: infuse over 2 hours> 2001 mg: infuse over 2.5 hours MEDICATION WASTE Product Size: 1000 mgProduct Wasted: ___ mg Start Date: 07/15/17 Stop Date: 07/16/17 Status: Discontinued Results BLOOD BANK RESULTS 1 2 3 Most recent to oldest [Reference Range]: O POS *Unknown* (07/27/17 3:27 PM) O POS *Unknown* (07/21/17 6:23 AM) O POS *Unknown* (07/16/17 5:23 PM) ABO/Rh Negative (07/27/17 3:27 PM) Negative (07/21/17 6:23 AM) Negative (07/16/17 5:23 PM) Antibody Scrn Modification Required (07/27/17 8:20 AM) Product available (07/21/17 5:42 AM) Product available (07/16/17 4:39 PM) RBC product ELECTROLYTES 1 2 3 Most recent to oldest [Reference Range]: 143 mEq/L (07/28/17 2:51 AM) 146 mEq/L *HI* (07/27/17 2:44 AM) 145 mEq/L (07/26/17 4:43 AM) Sodium Lvl [135-145 mEq/L] 3.5 mEq/L (07/28/17 2:51 AM) 3.7 mEq/L (07/27/17 2:44 AM) 3.9 mEq/L (07/26/17 4:43 AM) Potassium Lvl [3.5-5.1 mEq/L] 108 mEq/L (07/28/17 2:51 AM) 110 mEq/L *HI* (07/27/17 2:44 AM) 109 mEq/L (07/26/17 4:43 AM) Chloride Lvl [95-109 mEq/L] 27 mEq/L (07/28/17 2:51 AM) 27 mEq/L (07/27/17 2:44 AM) 29 mEq/L (07/26/17 4:43 AM) CO2 [24-32 mEq/L] 11.5 mEq/L (07/28/17 2:51 AM) 12.7 mEq/L (07/27/17 2:44 AM) 10.9 mEq/L (07/26/17 4:43 AM) AGAP [10.0-20.0 mEq/L] CHEM PANEL 1 2 3 Most recent to oldest [Reference Range]: 0.35 mg/dL *LOW* (07/28/17 2:51 AM) 0.35 mg/dL *LOW* (07/27/17 2:44 AM) 0.35 mg/dL *LOW* (07/26/17 4:43 AM) Creatinine Lvl [0.50-1.40 mg/dL] 182 mL/min/1.73m2 1 *NA* (07/28/17 2:51 AM) 181 mL/min/1.73m2 2 *NA* (07/27/17 2:44 AM) 181 mL/min/1.73m2 3 *NA* (07/26/17 4:43 AM) eGFR 2 mg/dL *LOW* (07/28/17 2:51 AM) 4 mg/dL *LOW* (07/27/17 2:44 AM) 6 mg/dL *LOW* (07/26/17 4:43 AM) BUN [7-22 mg/dL] 11 (07/19/17 1:10 AM) B/C Ratio [6-25] 76 mg/dL (07/28/17 2:51 AM) 82 mg/dL (07/27/17 2:44 AM) 83 mg/dL (07/26/17 4:43 AM) Glucose Lvl [70-99 mg/dL] 6.5 g/dL (07/19/17 1:10 AM) Total Protein [6.4-8.4 g/dL] 3.0 g/dL *LOW* (07/19/17 1:10 AM) Albumin Lvl [3.5-5.0 g/dL] 3.5 g/dL (07/19/17 1:10 AM) Globulin [2.7-4.2 g/dL] 0.9 (07/19/17 1:10 AM) A/G Ratio [0.7-1.6] 8.4 mg/dL *LOW* (07/28/17 2:51 AM) 8.8 mg/dL (07/27/17 2:44 AM) 8.8 mg/dL (07/26/17 4:43 AM) Calcium Lvl [8.5-10.5 mg/dL] 4.0 mg/dL (07/18/17 3:46 AM) Phosphorus [2.5-4.5 mg/dL] 2.3 mg/dL (07/18/17 3:46 AM) Magnesium Lvl [1.8-2.4 mg/dL] 14 unit/L (07/19/17 1:10 AM) ALT [0-65 unit/L] 12 unit/L (07/19/17 1:10 AM) AST [0-37 unit/L] 106 unit/L (07/19/17 1:10 AM) Alk Phos [39-136 unit/L] 360 unit/L *HI* (07/28/17 2:51 AM) 461 unit/L *HI* (07/26/17 4:43 AM) 379 unit/L *HI* (07/25/17 3:43 AM) LDH [98-192 unit/L] 0.7 mg/dL (07/26/17 4:43 AM) 0.5 mg/dL (07/25/17 3:43 AM) 0.5 mg/dL (07/24/17 3:06 AM) Bili Total [0.2-1.3 mg/dL] 0.1 mg/dL (07/26/17 4:43 AM) 0.1 mg/dL (07/25/17 3:43 AM) 0.2 mg/dL (07/24/17 3:06 AM) Bili Direct [0.0-0.3 mg/dL] 0.6 mg/dL (07/26/17 4:43 AM) 0.4 mg/dL (07/25/17 3:43 AM) 0.3 mg/dL (07/24/17 3:06 AM) Bili Indirect [0.0-1.0 mg/dL] 1Result Comment: [...] 3 Most recent to oldest [Reference Range]: 27 unit/L (07/27/17 2:43 AM) 24 unit/L (07/26/17 10:04 PM) Total CK [12-191 unit/L] <0.010 ng/mL (07/27/17 2:43 AM) <0.010 ng/mL (07/26/17 10:04 PM) Troponin-T [0.000-0.100 ng/mL] <0.02 ng/mL (07/27/17 2:43 AM) <0.02 ng/mL (07/26/17 10:04 PM) Troponin-I [0.00-0.40 ng/mL] ANEMIA STUDY 1 2 3 Most recent to oldest [Reference Range]: 1431 ng/mL *HI* (07/26/17 10:41 PM) Ferritin Lvl [5-204 ng/mL] TOXICOLOGY 1 2 3 Most recent to oldest [Reference Range]: 13.0 ug/ml *NA* (07/16/17 9:38 AM) Vanco Lvl HEMATOLOGY 1 2 3 Most recent to oldest [Reference Range]: 6.8 K/CMM (07/28/17 2:51 AM) 7.9 K/CMM (07/27/17 4:55 AM) 7.7 K/CMM (07/26/17 4:43 AM) WBC [3.7-10.4 K/CMM] 3.16 M/CMM *LOW* (07/28/17 2:51 AM) 2.99 M/CMM *LOW* (07/27/17 4:55 AM) 3.04 M/CMM *LOW* (07/26/17 4:43 AM) RBC [4.20-5.40 M/CMM] 7.2 g/dL *LOW* (07/28/17 2:51 AM) 6.9 g/dL 1 *CRIT* (07/27/17 4:55 AM) 7.0 g/dL 2 *CRIT* (07/26/17 4:43 AM) Hgb [12.0-16.0 g/dL] 22.8 % *LOW* (07/28/17 2:51 AM) 21.3 % *LOW* (07/27/17 4:55 AM) 21.9 % *LOW* (07/26/17 4:43 AM) Hct [36.0-48.0 %] 72.1 fL *LOW* (07/28/17 2:51 AM) 71.3 fL *LOW* (07/27/17 4:55 AM) 72.1 fL *LOW* (07/26/17 4:43 AM) MCV [80.0-98.0 fL] 22.8 pg *LOW* (07/28/17 2:51 AM) 23.0 pg *LOW* (07/27/17 4:55 AM) 23.2 pg *LOW* (07/26/17 4:43 AM) MCH [27.0-31.0 pg] 31.6 g/dL *LOW* (07/28/17 2:51 AM) 32.3 g/dL (07/27/17 4:55 AM) 32.1 g/dL (07/26/17 4:43 AM) MCHC [32.0-36.0 g/dL] 21.9 % *HI* (07/28/17 2:51 AM) 22.0 % *HI* (07/27/17 4:55 AM) 22.5 % *HI* (07/26/17 4:43 AM) RDW [11.5-14.5 %] 244 K/CMM (07/28/17 2:51 AM) 238 K/CMM (07/27/17 4:55 AM) 300 K/CMM (07/26/17 4:43 AM) Platelet [133-450 K/CMM] 7.8 fL (07/28/17 2:51 AM) 7.6 fL (07/27/17 4:55 AM) 8.0 fL (07/26/17 4:43 AM) MPV [7.4-10.4 fL] 54.2 % (07/28/17 2:51 AM) 56.3 % (07/27/17 4:55 AM) 62.0 % (07/26/17 4:43 AM) Segs [45.0-75.0 %] 0.0 % (07/26/17 4:43 AM) 0.0 % (07/23/17 6:31 AM) 0.0 % (07/21/17 4:31 AM) Bands [0.0-11.0 %] 32.5 % (07/28/17 2:51 AM) 29.5 % (07/27/17 4:55 AM) 27.0 % (07/26/17 4:43 AM) Lymphocytes [20.0-40.0 %] 0.0 % (07/26/17 4:43 AM) 0.0 % (07/23/17 6:31 AM) 0.0 % (07/21/17 4:31 AM) Atypical Lymphs [<=0.0 %] 9.3 % (07/28/17 2:51 AM) 10.6 % (07/27/17 4:55 AM) 7.0 % (07/26/17 4:43 AM) Monocytes [2.0-12.0 %] 2.7 % (07/28/17 2:51 AM) 2.7 % (07/27/17 4:55 AM) 3.0 % (07/26/17 4:43 AM) Eosinophils [0.0-4.0 %] 1.3 % *HI* (07/28/17 2:51 AM) 0.9 % (07/27/17 4:55 AM) 0.7 % (07/25/17 3:43 AM) Basophils [0.0-1.0 %] 2.0 % *HI* (07/14/17 11:32 PM) Metamyelocytes [0.0-1.0 %] 1.0 % *HI* (07/26/17 4:43 AM) Myelocytes [<=0.0 %] 3.7 K/CMM (07/28/17 2:51 AM) 4.5 K/CMM (07/27/17 4:55 AM) 4.8 K/CMM (07/26/17 4:43 AM) Segs-Bands # [1.5-8.1 K/CMM] 2.2 K/CMM (07/28/17 2:51 AM) 2.3 K/CMM (07/27/17 4:55 AM) 2.1 K/CMM (07/26/17 4:43 AM) Lymphocytes # [1.0-5.5 K/CMM] 0.6 K/CMM (07/28/17 2:51 AM) 0.8 K/CMM (07/27/17 4:55 AM) 0.5 K/CMM (07/26/17 4:43 AM) Monocytes # [0.0-0.8 K/CMM] 0.2 K/CMM (07/28/17 2:51 AM) 0.2 K/CMM (07/27/17 4:55 AM) 0.2 K/CMM (07/26/17 4:43 AM) Eosinophils # [0.0-0.5 K/CMM] 0.1 K/CMM (07/28/17 2:51 AM) 0.1 K/CMM (07/27/17 4:55 AM) 0.1 K/CMM (07/25/17 3:43 AM) Basophils # [0.0-0.2 K/CMM] 3 /100WB *NA* (07/21/17 4:31 AM) 2 /100WB *NA* (07/18/17 3:46 AM) 2 /100WB *NA* (07/14/17 11:32 PM) NRBC 1+ *ABN* (07/28/17 2:51 AM) 1+ *ABN* (07/27/17 4:55 AM) 1+ *ABN* (07/26/17 4:43 AM) Anisocyte [None Seen] Moderate *ABN* (07/26/17 4:43 AM) Moderate *ABN* (07/24/17 3:06 AM) Moderate *ABN* (07/23/17 6:31 AM) Polychrom [None Seen] 1+ (07/26/17 4:43 AM) 1+ (07/25/17 3:43 AM) 1+ (07/22/17 4:10 AM) Hypochrom [None Seen] 1+ *ABN* (07/23/17 6:31 AM) Macrocyte [None Seen] 2+ *ABN* (07/28/17 2:51 AM) 2+ *ABN* (07/27/17 4:55 AM) 2+ *ABN* (07/26/17 4:43 AM) Microcyte [None Seen] Slight *Unknown* (07/26/17 4:43 AM) Target Cell Moderate *ABN* (07/25/17 3:43 AM) Moderate *ABN* (07/23/17 6:31 AM) Target Cell [None Seen] Occasional *ABN* (07/26/17 4:43 AM) Rare *ABN* (07/25/17 3:43 AM) Rare *ABN* (07/24/17 3:06 AM) Sickle Cell [None Seen] Rare *ABN* (07/26/17 4:43 AM) Rare *ABN* (07/21/17 4:31 AM) Spherocyte [None Seen] 1-3 per HPF (07/26/17 4:43 AM) 1-3 per HPF (07/21/17 4:31 AM) Schistocyte [None Seen] Normal (07/26/17 4:43 AM) Normal (07/25/17 3:43 AM) Normal (07/23/17 6:31 AM) Plt Morph 7.8 % *HI* (07/28/17 2:51 AM) 6.5 % *HI* (07/26/17 4:43 AM) 6.8 % *HI* (07/25/17 3:43 AM) Retic Auto [0.5-1.5 %] 1Result Comment: Critical Result(s) called to Macey Cesar at 07/27/2017 05:48_ by RM_. Read back OK. 2Result Comment: Critical Result(s) called to Je DEL REAL at 07/26/2017 06:28 by ECA. Read back OK. Immunizations Not Given Vaccine [...] Extracted from: Title: Hematology Progress Note Author: Josue Cordova MD Date: 07/28/17 Patient: TERE JACK Age: 21 years Sex: Female : 1995 Associated Diagnoses: None Author: Josue Cordova MD Impression and Plan Mrs. Jack is a 21yo F with PMH of SSD (HbSS) who was recently admitted for VOC and c/f ACS who is now readmitted for VOC. Hematology is following for assistance with VOC. Problem list: - SCD c/b - Vaso-occlusive crisis - PNA Recommendations: SCD c/b VOC and mild ACS - pain control: - scheduled MS ER 60 q12, gabapentin 300 q8, ibuprofen 600 q8 - PRN morphine 15 PO q4 - Repeat CXR showed resolving bilateral lower lobe opacities. - Pt is s/p 1 pRBC 07/22. No need for further transfusion. - Please ensure patient had incentive spirometry q2 hours. Keep O2 supplementation for a O2 sat goal >93%. - continue MIVF. Strict Is/Os Ensure euvolemia. - Continue folate supplementation - Continue to monitor CBC, LDH, Reticulocyte Count and Bilirubin daily PNA - S/p 8 days of abx (4 of cefepime and 4 of levo) - Cultures neg to date - Currently afebrile and w/o leukocytosis. Than you for the opportunity to participate in the care of the patient. The patient was seen and plan discussed with . We will continue to follow. Please page or call us with questions. Pager [phone] Subjective Pt reported pain at 04/01 Said pain was controlled with current regimen and that she is doing okay without IV. Pt willing to go home. Objective Meds Scheduled Meds (15):buPROPion, cholecalciferol, docusate (Colace 100 mg oral capsule), enoxaparin (Lovenox), folic acid, gabapentin, ibuprofen, methocarbamol, morphine Sulfate (morphine extended release), multivitamin, pantoprazole, polyethylene glycol 3350 (MiraLax), senna, sodium chloride nasal ([place] Nasal [place]), tramadol (tramadol 50 mg oral tablet) Unscheduled Meds: None PRN Meds (9):APAP/butalbital/caffeine, LORazepam (Ativan), acetaminophen (Tylenol), bisacodyl (Dulcolax Laxative), docusate-senna (docusate-senna 50 mg- 8.6 mg oral tablet), morphine Sulfate, naloxone, ondansetron, simethicone One Time Meds: None Continuous Infusions (2):sodium chloride 0.9% 1000 ml INJ 1,000 mL, sodium chloride 0.9% INJ 250 mL I&O Input/Output RecordInOutBal 07/624hr Tot 0 0 0 07/524hr Tot 3366 0 3366 Intake and Output I/O Intake OutputBalance 10/06/06161m-1d 0.00 0.00 0.00As of 12:18 3p-11p 0.00 0.00 0.00 11p-7a 0.00 0.00 0.00 Totals 0.00 0.00 0.00 07/27/20177a-3p 2263.00 0.00 2263.00 3p-11p 1103.00 0.00 1103.00 11p-7a 0.00 0.00 0.00 Totals 3366.00 0.00 3366.00 07/26/20177a-3p 1.00 0.00 1.00 3p-11p 2.00 0.00 2.00 11p-7a 0.00 0.00 0.00 Totals 3.00 0.00 3.00 VS/Measurements Vital Signs (last 24 hrs) Last Charted Temp Oral98.0 DegF (JUL 28:14) Heart Rate [id number] bpm (JUL 28:14) Resp Rate 19 BRMIN (JUL 28:14) HZT924 mmHg (JUL 28:14) DBP67 mmHg (JUL 28:14) QyK008 % (JUL 28:14) General: Patient lying in bed, comfortable. Cardio: S1 S2 normal, RRR, no murmurs. Lungs: Chest moving equally, clear to ausculation. Abdomen: Non distended. Extremities: Without edema. Addendum Hematology Attending Attestation: by Cara, I saw and examined this patient with on 07/27/2017, and I agree with findings, Clive assessment, and recommended plan of care. I personally reviewed all labs. Santosh Marroquin M.D. [id number] on Television Antenna Installer 07/28/2017 Division of Hematology (Internal Medicine) 17:34 [facility] Addendum Correction - Patient was seen by me on 07/28/2017. by Clive Marroquin MD on 07/28/2017 17:44 Extracted from: Title: Hematology Initial Consult Author: Sofía Sotelo MD Date: 07/16/17 Note Impression and Plan Pt is a 21yo F with PMH of SSD (HbSS) who was recently admitted for VOC and c/f ACS who is now readmitted for VOC. Heamtology is following for assistance with VOC. 1. HbSS c/b VOC and mild ACS Pt demonstrates subjective and objective evidence consistent with vasoclussive crisis. Additionally, with c/o chest pain and CXR infiltrate in at least one lobe, pt meets criteria for mild acute chest syndrome. Given acute drop in Hgb (7.1 --> 5.8), pt may benefit from simple transfusion at this time to prevent escalation to overt ACS. * Pt continues to complain of 8/10 pain particularly in bilateral hips and lower extremities. Recs: - Please increase basal dose on SERVICE PLANNER pump to 1.5mg - Please schedule Toradol 15mg IVP q6h for 3 days, then transition to Ibuprofen. (Please monitor Cr while on Toradol.) - Given concern for ACS and drop in Hgb, please transfuse 1U pRBC - Continue IVF hydration, preferably with D5 1/2NS - Please ensure pt has incentive spirometer at bedside - Continue to monitor CBC, LDH, Reticulocyte Count and Bilirubin daily * Pt seen and discussed with Hematology attending, Dr. Chery. Thank you for allowing us to participate in the care of your patient. Heme will continue to follow along. Please page with any further questions. Sofía Sotelo MD Internal Medicine PGY-2 I have seen and personally examined this patient on 07/16/17, together with the resident, Dr. Sotelo. I agree with the history, exam, findings, and plans as noted in the Resident's note of 07/16/17. Pt has HbSS with pain crisis and mild acute chest syndrome (lung infiltrate and chest pain). Please transfuse 1 unit of phenotypically matched PRBCs to prevent ACS from worsening; she may need another unit of PRBCs, if she is not getting better. Encourage IS use 10X/min. Schedule Toradol 15 mg IV q6h for antiinflammatory effect. Appreciate primary team's efforts. Extracted from: Title: History and Physical Author: Levi Zhu MD Date: 07/15/17 Assessment/Plan This is a 21 year old female with sickle cell anemia with recent admission for pain control and recently with concerns for acute chest syndrome who was discharged with long acting pain medication who is coming back with worsening pain crisis. Objectively she looks like she is in a good bit of distress and also has a retic count that is moving in the wrong direction since her discharge. 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 and ivf; hopefully we cantransition her off of the ammunition supervisor soon there was concern for acs last time and was discahrged on bactrim and levaquin; to me the LLL infiltrate looks the same or mildly improved; until we can sort it out will restart her on broad spectrum antibiotics but she is saturating well on room air folic acid no transfusion unless hemoglobin <6 likely Ordered: Admit/Condition, 07/15/17 2:01:00 CDT, Status: Inpatient, Telemetry, Expected LOS: 2 Midnights, Jeana Kimball MD, Admit MD Review/Approve Yes, Isolation: No Isolation/Standard Precautions Prophylaxis mecahnical Disposition hopefully home after acute issues resolve
--- OUTSIDE RECORDS SUMMARY | 2019-03-11 17:23 | XMS REPORT | Summary of Care ---
Author Author [facility] Organization [facility] Address Unknown Phone Unavailable Encounter GINGER Hobbs(ARSENIO) [id number] Date(s): 11/04/17 - 11/05/17 [facility] [address] [employer] provided by [facility] [place] [address]- Encounter Diagnosis Whole body pain (Discharge Diagnosis) - 11/05/17 Pain, unspecified (Final) - 11/10/17 Discharge Disposition: Home or Self Care Attending Physician: Manuel Mueller MD Vital Signs 1 2 3 Most recent to oldest [Reference Range]: 162.56 cm (11/04/17 9:18 PM) Height 98.7 DegF (11/05/17 3:00 AM) 98.6 DegF (11/05/17 2:30 AM) 98.5 DegF (11/05/17 12:30 AM) Temperature Oral [96.4-99.1 DegF] 126/75 mmHg (11/05/17 3:00 AM) 108/60 mmHg (11/05/17 2:30 AM) 120/63 mmHg (11/05/17 12:30 AM) Blood Pressure [90-140/60-90 mmHg] 20 BRMIN (11/05/17 3:00 AM) 20 BRMIN (11/05/17 2:30 AM) 20 BRMIN (11/05/17 12:30 AM) Respiratory Rate [14-20 BRMIN] 120 bpm *HI* (11/05/17 3:00 AM) 117 bpm *HI* (11/05/17 2:30 AM) 110 bpm *HI* (11/05/17 12:30 AM) Peripheral Pulse Rate [60-100 bpm] 56.818 kg (11/04/17 9:18 PM) Weight 21.5 m2 (11/04/17 9:18 PM) Body Mass Index Problem List Condition Effective Dates Status Health Status Informant Anxiety disorder, Active unspecified(Confirme d) Cardiomegaly(Confirm Active ed) Sickle cell Active crisis(Confirmed) Anxiety and Resolved depression(Confirmed ) Depression(Confirmed Active ) Allergies, Adverse Reactions, Alerts Substance Reaction Severity Status Augmentin hives Active Medications Dilaudid 1 mg, Route: IVP, ONCE, Dosing Weight 56.818, kg, Priority: STAT, Start date: 0:29:00 INSULATION WORKER FURNACE INSTALLER, Stop date: 11/05/17 0:29:00 INSULATION WORKER FURNACE INSTALLER Start Date: 11/05/17 Stop Date: 11/05/17 Status: Completed Dilaudid 1 mg, Route: IVP, ONCE, Dosing Weight 56.818, kg, Priority: STAT, Start date: 1:33:00 INSULATION WORKER FURNACE INSTALLER, Stop date: 11/05/17 1:33:00 INSULATION WORKER FURNACE INSTALLER Start Date: 11/05/17 Stop Date: 11/05/17 Status: Completed morphine Sulfate 12 mg, Route: IV, ONCE, Dosing Weight 56.818, kg, Priority: STAT, Start date: 1:27:00 INSULATION WORKER FURNACE INSTALLER, Stop date: 11/05/17 1:27:00 INSULATION WORKER FURNACE INSTALLER Start Date: 11/05/17 Stop Date: 11/05/17 Status: Completed morphine Sulfate 4 mg, Route: IVP, ONCE, Dosing Weight 56.818, kg, Priority: STAT, Start date: 0:13:00 INSULATION WORKER FURNACE INSTALLER, Stop date: 11/05/17 0:13:00 INSULATION WORKER FURNACE INSTALLER Start Date: 11/05/17 Stop Date: 11/05/17 Status: Completed NS (Bolus) IV 1,000 mL, 1,000 ml/hr, Infuse Over: 1 hr, Route: IV, ONCE, Priority: STAT, Dosin g Weight 56.818 kg, Start date: 11/05/17 0:14:00 INSULATION WORKER FURNACE INSTALLER, Stop date: 11/05/17 0:14:0 0 INSULATION WORKER FURNACE INSTALLER Start Date: 11/05/17 Stop Date: 11/05/17 Status: Completed Zofran 4 mg, Route: IVP, Drug form: INJ, ONCE, Dosing Weight 56.818, kg, Priority: STAT , Start date: 11/05/17 0:13:00 INSULATION WORKER FURNACE INSTALLER, Stop date: 11/05/17 0:13:00 INSULATION WORKER FURNACE INSTALLER Start Date: 11/05/17 Stop Date: 11/05/17 Status: Completed Results ELECTROLYTES Most recent to 1 oldest [Reference Range]: Sodium Lvl [135-145 141 mEq/L mEq/L] (11/04/17 10:26 PM) Potassium Lvl 3.9 mEq/L [3.5-5.1 mEq/L] (11/04/17 10:26 PM) Chloride Lvl [95-109 105 mEq/L mEq/L] (11/04/17 10:26 PM) CO2 [24-32 mEq/L] 30 mEq/L (11/04/17 10:26 PM) AGAP [10.0-20.0 9.9 mEq/L mEq/L] *LOW* (11/04/17 10:26 PM) CHEM PANEL Most recent to 1 oldest [Reference Range]: Creatinine Lvl 0.61 mg/dL [0.50-1.40 mg/dL] (11/04/17 10:26 PM) eGFR 150 mL/min/1.73m2 1 *NA* (11/04/17 10:26 PM) BUN [7-22 mg/dL] 5 mg/dL *LOW* (11/04/17 10:26 PM) Glucose Lvl [70-99 93 mg/dL mg/dL] (11/04/17 10:26 PM) Calcium Lvl 9.1 mg/dL [8.5-10.5 mg/dL] (11/04/17 10:26 PM) 1Result Comment: The eGFR is calculated using [...] be mul tiplied by the estimated BMI. ENDOCRINOLOGY Most recent to 1 oldest [Reference Range]: hCG Tot <1 mIU/mL *NA* (11/05/17 2:35 AM) HEMATOLOGY Most recent to 1 oldest [Reference Range]: WBC [3.7-10.4 K/CMM] 10.4 K/CMM 1 (11/04/17 10:26 PM) RBC [4.20-5.40 2.95 M/CMM M/CMM] *LOW* (11/04/17 10:26 PM) Hgb [12.0-16.0 g/dL] 6.7 g/dL 2 *CRIT* (11/04/17 10:26 PM) Hct [36.0-48.0 %] 20.9 % *LOW* (11/04/17 10:26 PM) MCV [80.0-98.0 fL] 71.1 fL *LOW* (11/04/17 10:26 PM) MCH [27.0-31.0 pg] 22.6 pg *LOW* (11/04/17 10:26 PM) MCHC [32.0-36.0 31.8 g/dL g/dL] *LOW* (11/04/17 10:26 PM) RDW [11.5-14.5 %] 17.8 % *HI* (11/04/17 10:26 PM) MPV [7.4-10.4 fL] 7.9 fL (11/04/17 10:26 PM) Platelet [133-450 317 K/CMM K/CMM] (11/04/17 10:26 PM) Segs [45.0-75.0 %] 71.0 % (11/04/17 10:26 PM) Bands [0.0-11.0 %] 0.0 % (11/04/17 10:26 PM) Lymphocytes 16.0 % [20.0-40.0 %] *LOW* (11/04/17 10:26 PM) Atypical Lymphs 0.0 % [<=0.0 %] (11/04/17 10:26 PM) Monocytes [2.0-12.0 11.0 % %] (11/04/17 10:26 PM) Eosinophils [0.0-4.0 1.0 % %] (11/04/17 10:26 PM) Metamyelocytes 1.0 % [0.0-1.0 %] (11/04/17 10:26 PM) Segs-Bands # 7.4 K/CMM [1.5-8.1 K/CMM] (11/04/17 10:26 PM) Lymphocytes # 1.7 K/CMM [1.0-5.5 K/CMM] (11/04/17 10:26 PM) Monocytes # [0.0-0.8 1.1 K/CMM K/CMM] *HI* (11/04/17 10:26 PM) Eosinophils # 0.1 K/CMM [0.0-0.5 K/CMM] (11/04/17 10:26 PM) NRBC 34 /100WB *NA* (11/04/17 10:26 PM) Anisocyte [None 1+ Seen] *ABN* (11/04/17 10:26 PM) Polychrom [None Moderate Seen] *ABN* (11/04/17 10:26 PM) Hypochrom [None 1+ Seen] (11/04/17 10:26 PM) Macrocyte [None 1+ Seen] *ABN* (11/04/17 10:26 PM) Microcyte [None 2+ Seen] *ABN* (11/04/17 10:26 PM) Target Cell [None Moderate Seen] *ABN* (11/04/17 10:26 PM) Sickle Cell [None Slight Seen] *ABN* (11/04/17 10:26 PM) HJ Body [None Seen] Occasional *ABN* (11/04/17 10:26 PM) Schistocyte [None 1-3 per HPF Seen] (11/04/17 10:26 PM) Plt Morph Normal (11/04/17 10:26 PM) Retic Auto [0.5-1.5 14.1 % %] *HI* (11/05/17 12:30 AM) 1Result Comment: Automated WBC count (14.0) corrected due to presence of NRBC .corrected result called to Adelaide Stringer 11/04/2017 23:27. 2Result Comment: Critical Result(s) called to Mil[place]ros Park/JANETT at 11/04/2017 22:38 by VV. Read back OK. Immunizations Not Given Vaccine [...] No entered on: 11/05/17 Assessment and Plan No data available for this section
--- OUTSIDE RECORDS SUMMARY | 2019-03-11 17:23 | XMS REPORT | Summary of Care ---
Author Author [facility] Organization [facility] Address Unknown Phone Unavailable Encounter GINGER Hobbs(ARSENIO) [id number] Date(s): 11/04/17 - 11/05/17 [facility] [address] [employer] provided by [facility] [employer] [facility] [place] [address]- Encounter Diagnosis Whole body pain (Discharge Diagnosis) - 11/05/17 Discharge Disposition: Home or Self Care Attending [...] 56.818, kg, Priority: STAT, Start date: 0:29:00 WHEAT WASHER, Stop date: 11/05/17 0:29:00 WHEAT WASHER Start Date: 11/05/17 Stop Date: 11/05/17 Status: Completed Dilaudid 1 mg, Route: IVP, ONCE, Dosing Weight 56.818, kg, Priority: STAT, Start date: 1:33:00 WHEAT WASHER, Stop date: 11/05/17 1:33:00 WHEAT WASHER Start Date: 11/05/17 Stop Date: 11/05/17 Status: Completed morphine Sulfate 12 mg, Route: IV, ONCE, Dosing Weight 56.818, kg, Priority: STAT, Start date: 1:27:00 WHEAT WASHER, Stop date: 11/05/17 1:27:00 WHEAT WASHER Start Date: 11/05/17 Stop Date: 11/05/17 Status: Completed morphine Sulfate 4 mg, Route: IVP, ONCE, Dosing Weight 56.818, kg, Priority: STAT, Start date: 0:13:00 WHEAT WASHER, Stop date: 11/05/17 0:13:00 WHEAT WASHER Start Date: 11/05/17 Stop Date: 11/05/17 Status: Completed NS (Bolus) IV 1,000 mL, 1,000 ml/hr, Infuse Over: 1 hr, Route: IV, ONCE, Priority: STAT, Dosin g Weight 56.818 kg, Start date: 11/05/17 0:14:00 WHEAT WASHER, Stop date: 11/05/17 0:14:0 0 WHEAT WASHER Start Date: 11/05/17 Stop Date: 11/05/17 Status: Completed Zofran 4 mg, Route: IVP, Drug form: INJ, ONCE, Dosing Weight 56.818, kg, Priority: STAT , Start date: 11/05/17 0:13:00 WHEAT WASHER, Stop date: 11/05/17 0:13:00 WHEAT WASHER Start Date: 11/05/17 Stop Date: 11/05/17 Status: [...] %] 17.8 % *HI* (11/04/17 10:26 PM) Platelet [133-450 317 K/CMM K/CMM] (11/04/17 10:26 PM) MPV [7.4-10.4 fL] 7.9 fL (11/04/17 10:26 PM) Segs [45.0-75.0 %] 71.0 [...] 2Result Comment: Critical Result(s) called to Milagros Park/ER [...]
--- OUTSIDE RECORDS SUMMARY | 2019-03-11 17:23 | XMS REPORT | Summary of Care ---
Author Author [facility] Organization [facility] Address Unknown Phone Unavailable Encounter GINGER Hobbs(ARSENIO) [id number] Date(s): 05/06/18 - 05/09/18 [facility] [address] [facility] provided by [facility] [place] [address]- Encounter Diagnosis Hb-SS disease with crisis, unspecified (Final) - 05/17/18 Epilepsy, unspecified, not intractable, without status epilepticus (Final) - Elevated white blood cell count, unspecified (Final) - Discharge Disposition: Home or Self Care Attending Physician: Connie Bertrand MD Admitting Physician: Connie Bertrand MD Vital Signs 1 2 3 Most recent to oldest [Reference Range]: 162.56 cm (05/06/18 7:54 AM) Height 98.9 DegF (05/09/18 12:24 PM) 97.9 DegF (05/09/18 7:30 AM) 97.8 DegF (05/09/18 4:40 AM) Temperature Oral [96.4-99.1 DegF] 108/63 mmHg (05/09/18 12:24 PM) 104/63 mmHg (05/09/18 7:30 AM) 98/56 mmHg (05/09/18 4:40 AM) Blood Pressure [90-140/60-90 mmHg] 18 BRMIN (05/09/18 12:24 PM) 18 BRMIN (05/09/18 7:30 AM) 18 BRMIN (05/09/18 4:40 AM) Respiratory Rate [14-20 BRMIN] 91 bpm (05/09/18 12:24 PM) 60 bpm (05/09/18 7:30 AM) 85 bpm (05/09/18 4:40 AM) Peripheral Pulse Rate [60-100 bpm] 56.818 kg (05/06/18 2:39 PM) 56.818 kg (05/06/18 7:54 AM) Weight 21.5 m2 (05/06/18 7:54 AM) Body Mass Index Problem List Condition Effective Dates Status Health Status Informant Anxiety disorder, Active unspecified(Confirme d) Cardiomegaly(Confirm Active ed) Sickle cell Active crisis(Confirmed) Anxiety and Resolved depression(Confirmed ) Depression(Confirmed Active ) Sickle cell Active disease(Confirmed) Allergies, Adverse Reactions, Alerts Substance Reaction Severity Status Augmentin hives Active Medications /2 NS 1,000 mL 1,000 mL, Rate: 125 ml/hr, Infuse over: 8 hr, Route: IV, Dosing Weight 56.818 kg , Total Volume: 1,000, Start date: 05/06/18 12:16:00 CDT, Duration: 30 day, Stop date: 06/05/18 12:15:00 CDT, 1.61, m2 Start Date: 05/06/18 Stop Date: 05/09/18 Status: Discontinued 4 Way Saline nasal spray 1 spray, Route: Each Affected Nostril, PRN, Drug form: SOLN, PRN Allergies, Star t date: 05/08/18 2:34:00 CDT, Duration: 30 day, Stop date: 06/07/18 2:33:00 CDT Notes: (Same as: [place], Deep Sea Nasal [place]). Start Date: 05/08/18 Stop Date: 05/09/18 Status: Discontinued Benadryl 25 mg, 1 cap, Route: PO, Drug form: CAP, TID, Dosing Weight 56.818, kg, PRN Itch ing, Start date: 05/06/18 16:53:00 CDT, Duration: 30 day, Stop date: 06/05/18 16 :52:00 CDT Notes: (Same as: Benadryl) Start Date: 05/06/18 Stop Date: 05/09/18 Status: Discontinued docusate 100 mg, 1 cap, Route: PO, Drug form: CAP, BID, Dosing Weight 56.818, kg, Start d ate: 05/06/18 17:00:00 CDT, Duration: 30 day, Stop date: 06/05/18 9:00:00 CDT Notes: (Same as: Colace) (Do Not Crush) Start Date: 05/06/18 Stop Date: 05/07/18 Status: Discontinued docusate sodium 100 mg oral capsule 100 mg=1 cap, PO, BID, 0 Refill(s) Start Date: 05/07/18 Stop Date: 05/09/18 Status: Discontinued docusate-senna 50 mg-8.6 mg oral tablet 1 tab, Route: PO, Drug Form: TAB, Dosing Weight 56.818, kg, BID, Start date: 17:00:00 CDT, Duration: 30 day, Stop date: 06/06/18 9:00:00 CDT Notes: (Same as Senokot-S) Equiv. to Nasima-Colace. Start Date: 05/07/18 Stop Date: 05/09/18 Status: Discontinued folic acid 1 mg, 1 tab, Route: PO, Drug form: TAB, Daily, Dosing Weight 56.818, kg, Start d ate: 05/07/18 9:00:00 CDT, Duration: 30 day, Stop date: 06/05/18 9:00:00 CDT Notes: (Same as: Folvite) Start Date: 05/07/18 Stop Date: 05/09/18 Status: Discontinued folic acid 1 mg oral tablet 1 mg=1 tab, PO, Daily, 0 Refill(s) Start Date: 05/07/18 Status: Ordered gabapentin 300 mg oral capsule 300 mg=1 cap, PO, TID, 0 Refill(s) Start Date: 05/07/18 Stop Date: 05/15/18 Status: Deleted hydrOXYzine hydrochloride 50 mg oral tablet 50 mg=1 tab, PO, PRN, 0 Refill(s) Start Date: 05/07/18 Stop Date: 05/18/18 Status: Discontinued ibuprofen 800 mg, 1 tab, Route: PO, Drug form: TAB, Q8H, Dosing Weight 56.818, kg, PRN Ksenia n Score 1-3, Start date: 05/08/18 9:47:00 CDT, Duration: 30 day, Stop date: 05/23 04/09 9:46:00 CDT Notes: (Same as: Motrin)"Do Not Crush" Take with food. Start Date: 05/08/18 Stop Date: 05/09/18 Status: Discontinued ibuprofen 400 mg oral tablet 800 mg, 1 tab, Route: PO, Drug form: TAB, TID, Dosing Weight 56.818, kg, PRN Ksenia n Score 6-10, Start date: 05/07/18 11:26:00 CDT, Duration: 30 day, Stop date: 11:25:00 CDT Notes: (Same as: Motrin)"Do Not Crush" Take with food. Start Date: 05/07/18 Stop Date: 05/07/18 Status: Discontinued ibuprofen 800 mg oral tablet 800 mg=1 tab, PO, Q8H, 0 Refill(s) Start Date: 05/07/18 Stop Date: 05/18/18 Status: Discontinued Keppra 500 mg oral tablet 500 mg, 1 tab, Route: PO, Drug form: TAB, Q12H, Dosing Weight 56.818, kg, Start date: 05/07/18 20:00:00 CDT, Duration: 30 day, Stop date: 06/06/18 8:00:00 CDT Notes: (Same as:Keppra) Start Date: 05/07/18 Stop Date: 05/09/18 Status: Discontinued Keppra 500 mg oral tablet 500 mg=1 tab, PO, BID, 0 Refill(s) Start Date: 05/07/18 Status: Ordered Keppra 500 mg oral tablet 1,000 mg, 2 tab, Route: PO, Drug form: TAB, BID, Dosing Weight 56.818, kg, Start date: 05/06/18 19:54:00 CDT, Duration: 30 day, Stop date: 06/05/18 17:00:00 CDT Notes: (Same as:Keppra) Start Date: 05/06/18 Stop Date: 05/07/18 Status: Discontinued Keppra 500 mg oral tablet 1,000 mg=2 tab, PO, BID, # 360 tab, 0 Refill(s) Start Date: 05/06/18 Stop Date: 05/07/18 Status: Discontinued Keppra 500 mg oral tablet 1,000 mg, 2 tab, Route: PO, Drug form: TAB, BID, Dosing Weight 56.818, kg, Start date: 05/07/18 9:00:00 CDT, Duration: 30 day, Stop date: 06/05/18 17:00:00 CDT Notes: (Same as:Keppra) Start Date: 05/07/18 Stop Date: 05/06/18 Status: Canceled ketOROLAC 15 mg/mL injectable solution 15 mg, Route: IVP, Drug form: INJ, ONCE, Dosing Weight 56.818, kg, Priority: STA T, Start date: 05/06/18 11:50:00 CDT, Stop date: 05/06/18 11:50:00 CDT Start Date: 05/06/18 Stop Date: 05/06/18 Status: Completed ketOROLAC 15 mg/mL injectable solution 15 mg, 1 mL, Route: IVP, Drug form: INJ, Q6H, Dosing Weight 56.818, kg, PRN Pain Score 4-6, Start date: 05/06/18 15:55:00 CDT, Duration: 4 day, Stop date: 05/10 15:54:00 CDT Notes: (Same as:Toradol) IV bolus must be given >15 seconds. Give IM administration slowly and deeply into the muscle. Not for use > 4 days. Start Date: 05/06/18 Stop Date: 05/07/18 Status: Discontinued ketOROLAC 30 mg/mL injectable solution 30 mg, 1 mL, Route: IVP, Drug form: INJ, Q6H, Dosing Weight 56.818, kg, PRN Pain Score 6-10, Start date: 05/07/18 12:08:00 CDT, Duration: 4 day, Stop date: 04/23 12:07:00 CDT Notes: (Same as:Toradol) IV bolus must be given >15 seconds. Give IM administration slowly and deeply into the muscle.Not for use > 4 days MEDICATION WASTE Product Size: 30 mgProduct Wasted: ___ mg Start Date: 05/07/18 Stop Date: 05/08/18 Status: Discontinued loratadine 10 mg oral tablet 10 mg=1 tab, PO, PRN, 0 Refill(s) Start Date: 05/07/18 Stop Date: 05/18/18 Status: Discontinued Lovenox 40 mg, 0.4 mL, Route: SUB-Q, Drug form: INJ, [id number], Dosing Weight 56.818, kg, Start date: 05/06/18 21:00:00 CDT, Duration: 30 day, Stop date: 06/04/18 21:00: 00 CDT Notes: (Same as: Lovenox) Start Date: 05/06/18 Stop Date: 05/09/18 Status: Discontinued MiraLax 17 gm, 1 pkt, Route: PO, Drug form: PWDR, Daily, Dosing Weight 56.818, kg, Start date: 05/08/18 13:00:00 CDT, Duration: 30 day, Stop date: 06/07/18 9:00:00 CDT Notes: Dissolve in 8 oz of water or juice.(Same as: Miralax) Start Date: 05/08/18 Stop Date: 05/09/18 Status: Discontinued mirtazapine 30 mg oral tablet 30 mg=1 tab, PO, Bedtime, 0 Refill(s) Start Date: 05/07/18 Status: Ordered morphine 1 mg/ml CLINICAL PROGRAM MANAGER (30 mg/30 mL) INJ Syringe 30 mg 30 mL, Route: IV, Initial Loading Dose: 2 mg, CLINICAL PROGRAM MANAGER Dose: 1 mg, CLINICAL PROGRAM MANAGER Lockout: 10 m inutes, Continuous Basal Rate: 1 mg, 4 Hour Limit (In MG): 28, Drug Form: INJ, C ontinuous, Start date: 05/07/18 10:15:00 CDT, Duration: 30 day, Stop date: 06/06 10:14:0... Start Date: 05/07/18 Stop Date: 05/07/18 Status: Discontinued morphine 1 mg/ml CLINICAL PROGRAM MANAGER (30 mg/30 mL) INJ Syringe 30 mg 30 mg, 30 mL, Route: IV, Initial Loading Dose: 2 mg, CLINICAL PROGRAM MANAGER Dose: 0.5 mg, CLINICAL PROGRAM MANAGER Lock out: 10 minutes, Continuous Basal Rate: 0.5 mg, 4 Hour Limit (In MG): 14, Drug F orm: INJ, Continuous, Start date: 05/06/18 14:21:00 CDT, Stop date: 06/05/18 14: 20:00 CDT Notes: Dose: Delay: Basal rate: 4hr limit:( Same as:Berna) Start Date: 05/06/18 Stop Date: 05/06/18 Status: Discontinued morphine 1 mg/ml CLINICAL PROGRAM MANAGER (30 mg/30 mL) INJ Syringe 30 mg 30 mg, 30 mL, Route: IV, Initial Loading Dose: 2 mg, CLINICAL PROGRAM MANAGER Dose: 1 mg, CLINICAL PROGRAM MANAGER Lockou t: 10 minutes, Continuous Basal Rate: 1 mg, 4 Hour Limit (In MG): 14, Drug Form: INJ, Continuous, Start date: 05/06/18 19:33:00 CDT, Duration: 30 day, Stop date: 06/05/18... Notes: Dose: 1 mg Delay: 10 min Basal rate: 0 4hr limit: 14 mg(Same as:Berna) Start Date: 05/06/18 Stop Date: 05/07/18 Status: Discontinued morphine 1 mg/ml CLINICAL PROGRAM MANAGER (30 mg/30 mL) INJ Syringe 30 mg 30 mg, 30 mL, Route: IV, Initial Loading Dose: 2 mg, CLINICAL PROGRAM MANAGER Dose: 0.5 mg, CLINICAL PROGRAM MANAGER Lock out: 10 minutes, Continuous Basal Rate: 1 mg, 4 Hour Limit (In MG): 10, Drug For m: INJ, Continuous, Start date: 05/07/18 8:18:00 CDT, Duration: 30 day, Stop marcus e: 06/06/18... Notes: Dose: Delay: Basal rate: 4hr limit:( Same as:Berna) Start Date: 05/07/18 Stop Date: 05/07/18 Status: Discontinued morphine 1 mg/ml CLINICAL PROGRAM MANAGER (30 mg/30 mL) INJ Syringe 30 mg 30 mg, 30 mL, Route: IV, Initial Loading Dose: 2 mg, CLINICAL PROGRAM MANAGER Dose: 1 mg, CLINICAL PROGRAM MANAGER Lockou t: 10 minutes, Continuous Basal Rate: 0 mg, 4 Hour Limit (In MG): 22, Drug Form: INJ, Continuous, Start date: 05/08/18 11:45:00 CDT, Duration: 30 day, Stop date: 06/07/18... Notes: Dose: Delay: Basal rate: 4hr limit:( Same as:Berna) Start Date: 05/08/18 Stop Date: 05/08/18 Status: Discontinued morphine 1 mg/ml CLINICAL PROGRAM MANAGER (30 mg/30 mL) INJ Syringe 30 mg 30 mg, 30 mL, Route: IV, Initial Loading Dose: 2 mg, CLINICAL PROGRAM MANAGER Dose: 1 mg, CLINICAL PROGRAM MANAGER Lockou t: 10 minutes, Continuous Basal Rate: 1 mg, 4 Hour Limit (In MG): 22, Drug Form: INJ, Continuous, Start date: 05/07/18 10:18:00 CDT, Duration: 30 day, Stop date: 06/06/18... Notes: Dose: Delay: Basal rate: 4hr limit:( Same as:Rapi-Ject) Start Date: 05/07/18 Stop Date: 05/08/18 Status: Discontinued morphine 15 mg oral tablet, immediate release 15 mg=1 tab, PO, Q4H, 0 Refill(s) Start Date: 05/07/18 Stop Date: 05/09/18 Status: Discontinued morphine Sulfate 8 mg, 2 mL, Route: IVP, Drug form: SOLN, ONCE, Dosing Weight 56.818, kg, Priorit y: STAT, Start date: 05/06/18 9:09:00 CDT, Stop date: 05/06/18 9:09:00 CDT Notes: (Same as:MORPhine Sulfate) Start Date: 05/06/18 Stop Date: 05/06/18 Status: Completed morphine Sulfate 10 mg, 5 mL, Route: PO, Drug form: SOLN, ONCE, Dosing Weight 56.818, kg, Start d ate: 05/08/18 16:37:00 CDT, Stop date: 05/08/18 16:37:00 CDT Notes: (Same as:MORPhine Sulfate) Start Date: 05/08/18 Stop Date: 05/08/18 Status: Completed morphine Sulfate 8 mg, 2 mL, Route: IVP, Drug form: SOLN, ONCE, Dosing Weight 56.818, kg, Priorit y: STAT, Start date: 05/06/18 11:50:00 CDT, Stop date: 05/06/18 11:50:00 CDT Notes: (Same as:MORPhine Sulfate) Start Date: 05/06/18 Stop Date: 05/06/18 Status: Completed morphine Sulfate 10 mg, 5 mL, Route: PO, Drug form: SOLN, Q6H, Dosing Weight 56.818, kg, Start da te: 05/08/18 21:00:00 CDT, Duration: 30 day, Stop date: 06/07/18 15:00:00 CDT Notes: (Same as:MORPhine Sulfate) Start Date: 05/08/18 Stop Date: 05/09/18 Status: Discontinued morphine Sulfate 8 mg, 2 mL, Route: IVP, Drug form: SOLN, ONCE, Dosing Weight 56.818, kg, Priorit y: STAT, Start date: 05/06/18 10:18:00 CDT, Stop date: 05/06/18 10:18:00 CDT Notes: (Same as:MORPhine Sulfate) Start Date: 05/06/18 Stop Date: 05/06/18 Status: Completed MS Contin 30 mg, 1 tab, Route: PO, Drug form: ERTAB, Q12H, Dosing Weight 56.818, kg, Start date: 05/08/18 10:30:00 CDT, Stop date: 06/07/18 9:00:00 CDT Notes: Do not crush (Same as:Oramorph SR, MS Contin) Start Date: 05/08/18 Stop Date: 05/09/18 Status: Discontinued naloxone 0.04 mg, 0.1 mL, Route: IVP, Drug form: INJ, Q2MIN, Dosing Weight 56.818, kg, MT N Narcotic Reversal, Start date: 05/06/18 14:21:00 CDT, Duration: 30 day, Stop d ate: 06/05/18 14:20:00 CDT Notes: Same as Narcan Start Date: 05/06/18 Stop Date: 05/09/18 Status: Discontinued NS (Bolus) IV 1,000 mL, 1,000 ml/hr, Infuse Over: 1 hr, Route: IV, 1,000, Drug form: INJ, ONCE , Priority: STAT, Dosing Weight 56.818 kg, Start date: 05/06/18 9:10:00 CDT, Sto p date: 05/06/18 9:10:00 CDT Start Date: 05/06/18 Stop Date: 05/06/18 Status: Completed ondansetron 4 mg oral tablet 4 mg=1 tab, PO, Q8H, 0 Refill(s) Start Date: 05/07/18 Stop Date: 05/09/18 Status: Discontinued Probiotic Formula 1 cap, PO, Daily, 0 Refill(s) Start Date: 05/07/18 Stop Date: 05/18/18 Status: Discontinued Proventil HFA 90 mcg/inh inhalation aerosol with adapter 2 puff, INHALATION, Q4H, 0 Refill(s) Start Date: 05/07/18 Status: Ordered Tylenol PO, 0 Refill(s) Start Date: 05/07/18 Stop Date: 05/09/18 Status: Discontinued Zofran 4 mg, 2 mL, Route: IVP, Drug form: INJ, Q6H, Dosing Weight 56.818, kg, PRN Nause a, Start date: 05/06/18 15:55:00 CDT, Duration: 30 day, Stop date: 06/05/18 15:5 4:00 CDT Notes: (Same as: Zofran) MEDICATION WASTE Product Size: 4 mgProduct Was kallie: 0 mg Start Date: 05/06/18 Stop Date: 05/09/18 Status: Discontinued Zofran 4 mg, 2 mL, Route: IVP, Drug form: INJ, ONCE, Dosing Weight 56.818, kg, Priority : STAT, Start date: 05/06/18 9:09:00 CDT, Stop date: 05/06/18 9:09:00 CDT Notes: (Same as: Zofran) MEDICATION WASTE Product Size: 4 mgProduct Was kallie: ___ mg Start Date: 05/06/18 Stop Date: 05/06/18 Status: Completed Results ELECTROLYTES 1 2 3 Most recent to oldest [Reference Range]: 146 mEq/L *HI* (05/09/18 6:05 AM) 145 mEq/L (05/08/18 5:17 AM) 144 mEq/L (05/07/18 3:11 AM) Sodium Lvl [135-145 mEq/L] 4.2 mEq/L (05/09/18 6:05 AM) 4.1 mEq/L (05/08/18 5:17 AM) 4.6 mEq/L (05/07/18 3:11 AM) Potassium Lvl [3.5-5.1 mEq/L] 109 mEq/L (05/09/18 6:05 AM) 109 mEq/L (05/08/18 5:17 AM) 109 mEq/L (05/07/18 3:11 AM) Chloride Lvl [95-109 mEq/L] 26 mEq/L (05/09/18 6:05 AM) 27 mEq/L (05/08/18 5:17 AM) 24 mEq/L (05/07/18 3:11 AM) CO2 [24-32 mEq/L] 15.2 mEq/L (05/09/18 6:05 AM) 13.1 mEq/L (05/08/18 5:17 AM) 15.6 mEq/L (05/07/18 3:11 AM) AGAP [10.0-20.0 mEq/L] CHEM PANEL 1 2 3 Most recent to oldest [Reference Range]: 0.37 mg/dL *LOW* (05/09/18 6:05 AM) 0.39 mg/dL *LOW* (05/08/18 5:17 AM) 0.43 mg/dL *LOW* (05/07/18 3:11 AM) Creatinine Lvl [0.50-1.40 mg/dL] 176 mL/min/1.73m2 1 *NA* (05/09/18 6:05 AM) 174 mL/min/1.73m2 2 *NA* (05/08/18 5:17 AM) 168 mL/min/1.73m2 3 *NA* (05/07/18 3:11 AM) eGFR 7 mg/dL (05/09/18 6:05 AM) 6 mg/dL *LOW* (05/08/18 5:17 AM) 7 mg/dL (05/07/18 3:11 AM) BUN [7-22 mg/dL] 16 (05/07/18 3:11 AM) B/C Ratio [6-25] 81 mg/dL (05/09/18 6:05 AM) 86 mg/dL (05/08/18 5:17 AM) 78 mg/dL (05/07/18 3:11 AM) Glucose Lvl [70-99 mg/dL] 6.6 g/dL (05/07/18 3:11 AM) Total Protein [6.4-8.4 g/dL] 3.7 g/dL (05/07/18 3:11 AM) Albumin Lvl [3.5-5.0 g/dL] 2.9 g/dL (05/07/18 3:11 AM) Globulin [2.7-4.2 g/dL] 1.3 (05/07/18 3:11 AM) A/G Ratio [0.7-1.6] 8.5 mg/dL (05/09/18 6:05 AM) 8.5 mg/dL (05/08/18 5:17 AM) 8.7 mg/dL (05/07/18 3:11 AM) Calcium Lvl [8.5-10.5 mg/dL] 5.3 mg/dL *HI* (05/07/18 3:11 AM) Phosphorus [2.5-4.5 mg/dL] 2.6 mg/dL *HI* (05/07/18 3:11 AM) Magnesium Lvl [1.8-2.4 mg/dL] 20 unit/L (05/07/18 3:11 AM) ALT [0-65 unit/L] 29 unit/L (05/07/18 3:11 AM) AST [0-37 unit/L] 73 unit/L (05/07/18 3:11 AM) Alk Phos [39-136 unit/L] 300 unit/L *HI* (05/09/18 6:05 AM) 308 unit/L *HI* (05/08/18 5:17 AM) 339 unit/L *HI* (05/07/18 3:11 AM) LDH [98-192 unit/L] 1.5 mg/dL *HI* (05/07/18 3:11 AM) Bili Total [0.2-1.3 mg/dL] <0.05 ng/mL (05/06/18 1:44 PM) Procalcitonin Lvl [0.00-0.10 ng/mL] 1Result Comment: [...] be mul tiplied by the estimated BMI. URINE AND STOOL 1 2 3 Most recent to oldest [Reference Range]: Clear (05/06/18 12:24 PM) UA Turbidity [Clear] Light Yellow (05/06/18 12:24 PM) UA Color [Yellow] 7.5 (05/06/18 12:24 PM) UA pH [5.0-8.0] 1.010 (05/06/18 12:24 PM) UA Spec Grav [<=1.030] Negative (05/06/18 12:24 PM) UA Glucose [Negative] Negative (05/06/18 12:24 PM) UA Blood [Negative] Negative *NA* (05/06/18 12:24 PM) UA Ketones [Negative] Negative (05/06/18 12:24 PM) UA Protein [Negative] 0.2 EU/dL (05/06/18 12:24 PM) UA Urobilinogen [0.1-1.0 EU/dL] Negative *NA* (05/06/18 12:24 PM) UA Bili [Negative] Negative (05/06/18 12:24 PM) UA Leuk Est [Negative] Negative (05/06/18 12:24 PM) UA Nitrite [Negative] None Seen (05/06/18 12:24 PM) UA WBC [None Seen] None Seen (05/06/18 12:24 PM) UA RBC [0-2] Few /HPF (05/06/18 12:24 PM) UA Bacteria [None Seen /HPF] Few /LPF (05/06/18 12:24 PM) UA Sq Epi [Few /LPF] None Seen (05/06/18 12:24 PM) UA Mucus [None Seen] IMMUNOLOGY 1 2 3 Most recent to oldest [Reference Range]: Negative *NA* (05/06/18 1:44 PM) CDC HIV 4th GEN [Negative] HEMATOLOGY 1 2 3 Most recent to oldest [Reference Range]: 8.5 K/CMM (05/09/18 6:05 AM) 10.3 K/CMM (05/08/18 5:17 AM) 12.6 K/CMM *HI* (05/07/18 3:11 AM) WBC [3.7-10.4 K/CMM] 2.88 M/CMM *LOW* (05/09/18 6:05 AM) 3.00 M/CMM *LOW* (05/08/18 5:17 AM) 3.17 M/CMM *LOW* (05/07/18 3:11 AM) RBC [4.20-5.40 M/CMM] 6.8 g/dL 1 *CRIT* (05/09/18 6:05 AM) 7.2 g/dL *LOW* (05/08/18 5:17 AM) 7.4 g/dL *LOW* (05/07/18 3:11 AM) Hgb [12.0-16.0 g/dL] 20.8 % *LOW* (05/09/18 6:05 AM) 21.5 % *LOW* (05/08/18:17 AM) 22.7 % *LOW* (05/07/18 3:11 AM) Hct [36.0-48.0 %] 72.1 fL *LOW* (05/09/18 6:05 AM) 71.7 fL *LOW* (05/08/18:17 AM) 71.7 fL *LOW* (05/07/18 3:11 AM) MCV [80.0-98.0 fL] 23.6 pg *LOW* (05/09/18 6:05 AM) 23.9 pg *LOW* (05/08/18:17 AM) 23.3 pg *LOW* (05/07/18 3:11 AM) MCH [27.0-31.0 pg] 32.7 g/dL (05/09/18 6:05 AM) 33.3 g/dL (05/08/18:17 AM) 32.4 g/dL (05/07/18 3:11 AM) MCHC [32.0-36.0 g/dL] 15.7 % *HI* (05/09/18 6:05 AM) 15.5 % *HI* (05/08/18:17 AM) 16.1 % *HI* (05/07/18 3:11 AM) RDW [11.5-14.5 %] 8.7 fL (05/09/18 6:05 AM) 8.5 fL (05/08/18:17 AM) 8.5 fL (05/07/18 3:11 AM) MPV [7.4-10.4 fL] 233 K/CMM (05/09/18 6:05 AM) 234 K/CMM (05/08/18 5:17 AM) 232 K/CMM (05/07/18 3:11 AM) Platelet [133-450 K/CMM] 46.9 % (05/09/18 6:05 AM) 57.0 % (05/08/18 5:17 AM) 74.0 % (05/07/18 3:11 AM) Segs [45.0-75.0 %] 0.0 % (05/08/18 5:17 AM) 0.0 % (05/07/18 3:11 AM) Bands [0.0-11.0 %] 31.9 % (05/09/18 6:05 AM) 30.0 % (05/08/18 5:17 AM) 16.0 % *LOW* (05/07/18 3:11 AM) Lymphocytes [20.0-40.0 %] 0.0 % (05/08/18 5:17 AM) 0.0 % (05/07/18 3:11 AM) Atypical Lymphs [<=0.0 %] 10.7 % (05/09/18 6:05 AM) 7.0 % (05/08/18 5:17 AM) 8.0 % (05/07/18 3:11 AM) Monocytes [2.0-12.0 %] 9.1 % *HI* (05/09/18 6:05 AM) 3.0 % (05/08/18 5:17 AM) 1.0 % (05/07/18 3:11 AM) Eosinophils [0.0-4.0 %] 1.4 % *HI* (05/09/18 6:05 AM) 3.0 % *HI* (05/08/18 5:17 AM) 1.0 % (05/07/18 3:11 AM) Basophils [0.0-1.0 %] 4.0 K/CMM (05/09/18 6:05 AM) 5.9 K/CMM (05/08/18 5:17 AM) 9.3 K/CMM *HI* (05/07/18 3:11 AM) Neutrophils # [1.5-8.1 K/CMM] 2.7 K/CMM (05/09/18 6:05 AM) 3.1 K/CMM (05/08/18 5:17 AM) 2.0 K/CMM (05/07/18 3:11 AM) Lymphocytes # [1.0-5.5 K/CMM] 0.9 K/CMM *HI* (05/09/18 6:05 AM) 0.7 K/CMM (05/08/18 5:17 AM) 1.0 K/CMM *HI* (05/07/18 3:11 AM) Monocytes # [0.0-0.8 K/CMM] 0.8 K/CMM *HI* (05/09/18 6:05 AM) 0.3 K/CMM (05/08/18 5:17 AM) 0.1 K/CMM (05/07/18 3:11 AM) Eosinophils # [0.0-0.5 K/CMM] 0.1 K/CMM (05/09/18 6:05 AM) 0.3 K/CMM *HI* (05/08/18 5:17 AM) 0.1 K/CMM (05/07/18 3:11 AM) Basophils # [0.0-0.2 K/CMM] 2 /100WB *NA* (05/08/18 5:17 AM) 4 /100WB *NA* (05/07/18 3:11 AM) NRBC 1+ *ABN* (05/08/18 5:17 AM) 2+ *ABN* (05/07/18 3:11 AM) Anisocyte [None Seen] Slight *Unknown* (05/08/18 5:17 AM) Slight *Unknown* (05/07/18 3:11 AM) Polychrom Moderate *ABN* (05/06/18 9:08 AM) Polychrom [None Seen] 1+ (05/07/18 3:11 AM) Hypochrom [None Seen] 2+ *ABN* (05/08/18 5:17 AM) 2+ *ABN* (05/07/18 3:11 AM) 2+ *ABN* (05/06/18 9:08 AM) Microcyte [None Seen] Moderate *ABN* (05/08/18 5:17 AM) Moderate *ABN* (05/07/18 3:11 AM) Moderate *ABN* (05/06/18 9:08 AM) Target Cell [None Seen] Slight *ABN* (05/08/18 5:17 AM) Slight *ABN* (05/07/18 3:11 AM) Slight *ABN* (05/06/18 9:08 AM) Sickle Cell [None Seen] Occasional *ABN* (05/06/18 9:08 AM) Anay Body [None Seen] Normal (05/08/18 5:17 AM) Normal (05/07/18 3:11 AM) Normal (05/06/18 9:08 AM) Plt Morph 9.4 % *HI* (05/08/18 5:17 AM) 8.3 % *HI* (05/06/18 1:44 PM) Retic Auto [0.5-1.5 %] 1Result Comment: Critical Result(s) called to Joe Mcmillan at 05/09/2018 07:54 by CN. Read back OK. Immunizations Not Given Vaccine [...] 05/18/18 Assessment and Plan Extracted from: Title: Team D Progress Note Author: Alexandrea Dyson MD Date: 05/08/18 22 yo F w/ a h/o SCD and seizure d/o presents with diffuse pain through body. Pt has a 2 year history with multiple hospitalizations about once per month. Pt's pain is being managed with PO pain meds. 1.Sickle cell crisis -CLINICAL PROGRAM MANAGER pump dc'd. -Current pain regimen is MS Contin 30 mg ERTAB q12h, Morphine sulfate 10 mg q4h, Ibuprofen 800 mg q8h -No source on infection found -IVF-1/2 NS 125ml/hr -Will continue to f/u hematology recs 2.Seizure disorder - Continue Keppra. - Pt has not had any episodes of seizures since admission. 3.Leukocytosis -WBC down from 12.6 to 10.3 - No source of infection has been found to date. - Will continue monitoring WBC. 4.Normocytic anemia - Likely 2/2 hemolysis and SCD. - Pt has not been on hydroxyurea therapy. - Will continue monitoring. Lovenox Pending clinical improvement Addendum by GINA Bertrand ATTENDING ATTESTATION STATEMENT: I have seen and examined patient and discussed Connie the findings on this patient in detail with the team at bedside. I have reviewed the MD on clinical data and note above and I agree with the findings and plan of care as outlined by 05/08/2018 . We are transitioning patient to oral meds and if does well will likely 18:08 CDT discharge tomorrow. She is in good spirits today and states she feels much better Extracted from: Title: Hematology Consult Note Author: Erika Chery MD Date: 05/07/18 Impression and Plan The patient was seen and examined by me with the resident/MOTOR GENERATOR SET OPERATOR/PA and I agree with the History/Exam documented. Ms. Jack is a 22 year old woman with a medical history of sickle cell disease who is presenting with an acute pain crisis. She is improving and ashould be continued on CLINICAL PROGRAM MANAGER and hypotonic fluid. Toradol should be scheduled for the next 48 hours and Hickman 10/325. #Acute pain crisis - Continue 0.45 saline - Continue CLINICAL PROGRAM MANAGER - Toradol 15 mg Q6H for next 48 Hours - Ibuprofen 800 mg Q6H with meals afterwards toradol completed - Start Hickman 10/325 Q6H scheduled, Continue CLINICAL PROGRAM MANAGER settings as it is. - Start long acting morphine, home dose, tomorrow to wean from CLINICAL PROGRAM MANAGER - No need for transfusion at this time - Schedule Outpatient follow-up within 1 week of discharge Thank you for this interesting consult, please call us with any questions. Nicholas Lee MD Internal Medicine PGY-3 Hematology Consult Service Attending Attestation I have seen and personally examined this patient today, together with the resident, Dr. Lee. I agree with the history, exam, findings, and plans as noted in the Resident's note of 05/07/18. Pain management as outlined above. Please, schedule Toradol 15 mg IV q6h and Hickman 10/325 mg, 1 tab PO q6h. Keep morphine CLINICAL PROGRAM MANAGER settings the same today. Plan to dc CLINICAL PROGRAM MANAGER tomorrow and start morphine 3 mg IV q6h PRN breakthrough pain. Encourage use of IS 10X/hr. Please monitor for s/s of acute chest syndrome and notify hematology immediately, if such occur. Extracted from: Title: Team D History and Physical Author: Gabriel Adams MD Date: 05/06/18 22 yo F w/ a h/o SCD and seizure d/o presents with diffuse pain through body. 1.Sickle cell crisis - Pt with diffuse pain - Pain control: will started withPCA pump 0.5 basal with 0.5 PRN but switched to 1.0 basal and 1.0 PRNover 10 min and Ketorolac - continue oxygen supp/fluid resuscitation with 1/2 NS - Ordered incentive spirometry - Procalcitonin negative - UA negative for infection - Will continue monitoring WBC/Hg - Pt is currently not on abx -will ask heme to see patient to make recommendations for future fci management for her sickle cell given frequent admissions 2.Seizure disorder - Continuekeppra - No seizure episodes since admission 3.Leukocytosis -WBC mildly elevated - No source of infection not yet found - Will continue monitoring 4.Normocytic anemia -Likely 2/2 SCD and hemolysis - Continue monitoring Hg - Pt is not on hydroxyurea None To floor TEACHING ATTENDING ATTESTATION STATEMENT: I have seen and examined patient and discussed the findings on this patient in detail with the team at bedside. I have reviewed the clinical data and note above and I agree with the findings and plan of care as outlined by Addendum by kevin Bertrand for dvt prophylaxis Connie MEEKS on 05/06/2018 20:33 CDT
--- OUTSIDE RECORDS SUMMARY | 2019-03-11 17:23 | XMS REPORT | Summary of Care ---
Author Author [facility] Organization [facility] Address Unknown Phone Unavailable Encounter GINGER Hobbs(ARSENIO) [id number] Date(s): 10/28/17 - 11/03/17 [facility] [address] [employer] provided by [facility] [place] [address]- Discharge Disposition: Home or Self Care Attending [...] Total Volume: 1,000, Start date: 10/30/17 9:22:00 WELT ROUGHER, Duration: 30 day, Stop date: 11/29/17 9:21:00 WELT ROUGHER, 1.59, m2 Start Date: 10/30/17 Stop Date: 11/01/17 Status: Discontinued acetaminophen 650 mg, 2 tab, Route: PO, Drug form: TAB, Q6H, Dosing Weight 54.545, kg, Start d ate: 10/30/17 12:00:00 WELT ROUGHER, Duration: 30 day, Stop date: 11/29/17 6:00:00 WELT ROUGHER Notes: Do not exceed 4 gm/day. (Same as: Tylenol) Start Date: 10/30/17 Stop Date: 11/03/17 Status: Discontinued acetaminophen 650 mg, 2 tab, Route: PO, Drug form: TAB, Q4H, Dosing Weight 54.545, kg, PRN Ksenia n 1-3/Temp > 100.4 F, Start date: 10/28/17 16:30:00 WELT ROUGHER, Duration: 30 day, Stop date: 11/27/17 16:29:00 WELT ROUGHER Notes: Do not exceed 4 gm/day. (Same as: Tylenol) Start Date: 10/28/17 Stop Date: 10/30/17 Status: Discontinued Benadryl 25 mg, 1 cap, Route: PO, Drug form: CAP, TID, Dosing Weight 55.909, kg, PRN Itch ing, Priority: NOW, Start date: 11/01/17 10:58:00 WELT ROUGHER, Duration: 30 day, Stop da te: 12/01/17 10:57:00 WELT ROUGHER Notes: (Same as: Benadryl) Start Date: 11/01/17 Stop Date: 11/03/17 Status: Discontinued docusate 40 mg, Route: PO, TID, Dosing Weight 55.909, kg, Priority: NOW, Start date: 10/23 10:05:00 WELT ROUGHER, Duration: 30 day, Stop date: 12/01/17 9:00:00 WELT ROUGHER Start Date: 11/01/17 Stop Date: 11/01/17 Status: Discontinued docusate 100 mg, 1 cap, Route: PO, Drug form: CAP, BID, Dosing Weight 54.545, kg, Start d ate: 10/28/17 17:00:00 WELT ROUGHER, Duration: 30 day, Stop date: 11/27/17 9:00:00 WELT ROUGHER Notes: (Same as: Colace) (Do Not Crush) Start Date: 10/28/17 Stop Date: 11/03/17 Status: Discontinued folic acid 1 mg, 1 tab, Route: PO, Drug form: TAB, Daily, Dosing Weight 54.545, kg, Start d ate: 10/29/17 9:00:00 WELT ROUGHER, Duration: 30 day, Stop date: 11/27/17 9:00:00 WELT ROUGHER Notes: (Same as: Folvite) Start Date: 10/29/17 Stop Date: 11/03/17 Status: Discontinued gabapentin 300 mg oral capsule 300 mg, 1 cap, Route: PO, Drug form: CAP, Q8H, Dosing Weight 54.545, kg, (CrCl > 60 ml/min), Priority: NOW, Start date: 10/28/17 15:58:00 WELT ROUGHER, Duration: 30 day, Stop date: 11/27/17 8:00:00 WELT ROUGHER Notes: (Same as: Neurontin) Start Date: 10/28/17 Stop Date: 11/03/17 Status: Discontinued hydrocortisone topical 1% cream 1 appl, Route: TOP, BID, Drug form: CRM, PRN Itching, Start date: 11/01/17 1:26: 00 WELT ROUGHER, Duration: 30 day, Stop date: 12/01/17 1:25:00 WELT ROUGHER Start Date: 11/01/17 Stop Date: 11/02/17 Status: Discontinued hydromorphone 1 mg, 0.5 mL, Route: IV, Drug form: INJ, ONCE, Dosing Weight 54.545, kg, Start d ate: 10/28/17 14:11:00 WELT ROUGHER, Stop date: 10/28/17 14:11:00 WELT ROUGHER Notes: Same as Dilaudid Start Date: 10/28/17 Stop Date: 10/28/17 Status: Completed hydromorphone 1 mg, Route: IV, ONCE, Dosing Weight 54.545, kg, Start date: 10/28/17 12:54:[address], Stop date: 10/28/17 12:54:00 WELT ROUGHER Start Date: 10/28/17 Stop Date: 10/28/17 Status: Completed hydromorphone 1 mg, 0.5 mL, Route: IV, Drug form: INJ, ONCE, Dosing Weight 54.545, kg, Start d ate: 10/28/17 11:43:00 WELT ROUGHER, Stop date: 10/28/17 11:43:00 WELT ROUGHER Notes: Same as Dilaudid Start Date: 10/28/17 Stop Date: 10/28/17 Status: Completed ibuprofen 400 mg, 1 tab, Route: PO, Drug form: TAB, Q4H, Dosing Weight 54.545, kg, Priorit y: NOW, Start date: 10/28/17 16:35:00 WELT ROUGHER, Duration: 30 day, Stop date: 11/27/17 16:00:00 WELT ROUGHER Notes: (Same as: Motrin)"Do Not Crush" Give with food. Start Date: 10/28/17 Stop Date: 10/31/17 Status: Discontinued ibuprofen 400 mg, 1 tab, Route: PO, Drug form: TAB, Q4H, Dosing Weight 54.545, kg, PRN Ksenia n Score 1-3, Priority: NOW, Start date: 10/28/17 15:58:00 WELT ROUGHER, Duration: 30 day, Stop date: 11/27/17 15:57:00 WELT ROUGHER Start Date: 10/28/17 Stop Date: 10/28/17 Status: Discontinued ibuprofen 600 mg, 1 tab, Route: PO, Drug form: TAB, Q6H, Dosing Weight 55.909, kg, PRN Ksenia n Score 1-5, Start date: 10/31/17 17:07:00 WELT ROUGHER, Duration: 30 day, Stop date: 06/09 17:06:00 WELT ROUGHER Notes: (Same as: Motrin)"Do Not Crush" Take with food. Start Date: 10/31/17 Stop Date: 11/03/17 Status: Discontinued Lactated Ringers (Bolus) IV 1,000 mL, 1,000 ml/hr, Infuse Over: 1 hr, Route: IV, 1,000, Drug form: INJ, ONCE , Priority: STAT, Dosing Weight 54.545 kg, Start date: 10/28/17 10:59:00 WELT ROUGHER, St op date: 10/28/17 10:59:00 WELT ROUGHER Start Date: 10/28/17 Stop Date: 10/28/17 Status: Completed lactulose 10 g/15 mL oral syrup 10 gm, 15 mL, Route: PO, Drug form: SYRP, ONCE, Dosing Weight 55.909, kg, Priori ty: NOW, Start date: 11/03/17 9:37:00 WELT ROUGHER, Stop date: 11/03/17 9:37:00 WELT ROUGHER Notes: (Same as:Chronulac) Start Date: 11/03/17 Stop Date: 11/03/17 Status: Completed Lovenox 40 mg, 0.4 mL, Route: SUB-Q, Drug form: INJ, [id number], Dosing Weight 54.545, kg, Start date: 10/28/17 17:00:00 WELT ROUGHER, Duration: 30 day, Stop date: 11/26/17 17:00: 00 WELT ROUGHER Notes: (Same as: Lovenox) Start Date: 10/28/17 Stop Date: 11/03/17 Status: Discontinued LR IV 1,000 mL 1,000 mL, Rate: 125 ml/hr, Infuse over: 8 hr, Route: IV, Dosing Weight 54.545 kg , Total Volume: 1,000, Start date: 10/28/17 15:25:00 WELT ROUGHER, Duration: 30 day, Stop date: 11/27/17 15:24:00 WELT ROUGHER, 1.58, m2 Start Date: 10/28/17 Stop Date: 10/30/17 Status: Discontinued Milk of Magnesia 30 ml, Route: PO, Drug Form: SUSP, Dosing Weight 55.909, kg, ONCE, PRN as needed for constipation, NOW, Start date: 11/01/17 10:58:00 WELT ROUGHER Notes: (Same as: Milk of Magnesia, MOM) Start Date: 11/01/17 Stop Date: 11/01/17 Status: Completed MiraLax 17 gm, 1 pkt, Route: PO, Drug form: PWDR, ONCE, Dosing Weight 55.909, kg, Start date: 11/01/17 22:33:00 WELT ROUGHER, Stop date: 11/01/17 22:33:00 WELT ROUGHER Notes: Dissolve in 8 oz of water or juice.(Same as: Miralax) Start Date: 11/01/17 Stop Date: 11/01/17 Status: Completed MiraLax 17 gm, 1 pkt, Route: PO, Drug form: PWDR, Daily, Dosing Weight 55.909, kg, Prior ity: NOW, Start date: 11/01/17 10:05:00 WELT ROUGHER, Duration: 30 day, Stop date: 9:00:00 WELT ROUGHER Notes: Dissolve in 8 oz of water or juice.(Same as: Miralax) Start Date: 11/01/17 Stop Date: 11/03/17 Status: Discontinued morphine 1 mg/ml RISK PROFESSIONAL (30 mg/30 mL) INJ Syringe 30 mg 30 mg, 30 mL, Route: IV, Initial Loading Dose: 2 mg, RISK PROFESSIONAL Dose: 1.5 mg, RISK PROFESSIONAL Lock out: 7 minutes, Continuous Basal Rate: 2 mg, 4 Hour Limit (In MG): 58, Drug Form : INJ, Continuous, Start date: 10/31/17 8:18:00 WELT ROUGHER, Duration: 30 day, Stop date : 11/30/17... Notes: Dose: Delay: Basal rate: 4hr limit:( Same as:Berna) Start Date: 10/31/17 Stop Date: 10/31/17 Status: Discontinued morphine 1 mg/ml RISK PROFESSIONAL (30 mg/30 mL) INJ Syringe 30 mg 30 mg, 30 mL, Route: IV, RISK PROFESSIONAL Dose: 1 mg, RISK PROFESSIONAL Lockout: 10 minutes, Continuous Ba caio Rate: 0 mg, 4 Hour Limit (In MG): 24, Drug Form: INJ, Continuous, Start date : 11/01/17 8:50:00 WELT ROUGHER, Duration: 30 day, Stop date: 12/01/17 8:49:00 WELT ROUGHER Notes: Dose: Delay: Basal rate: 4hr limit:( Same as:Berna) Start Date: 11/01/17 Stop Date: 11/01/17 Status: Discontinued morphine 1 mg/ml RISK PROFESSIONAL (30 mg/30 mL) INJ Syringe 30 mg 30 mg, 30 mL, Route: IV, Initial Loading Dose: 2 mg, RISK PROFESSIONAL Dose: 1.5 mg, RISK PROFESSIONAL Lock out: 7 minutes, Continuous Basal Rate: 2.5 mg, 4 Hour Limit (In MG): 58, Drug Fo rm: INJ, Continuous, Start date: 10/30/17 8:38:00 WELT ROUGHER, Duration: 30 day, Stop da te: ... Notes: Dose: Delay: Basal rate: 4hr limit:( Same as:Monsei-Jedavid) Start Date: 10/30/17 Stop Date: 10/31/17 Status: Discontinued morphine 1 mg/ml RISK PROFESSIONAL (30 mg/30 mL) INJ Syringe 30 mg 30 mg, 30 mL, Route: IV, Initial Loading Dose: 2 mg, RISK PROFESSIONAL Dose: 1.5 mg, RISK PROFESSIONAL Lock out: 7 minutes, Continuous Basal Rate: 2 mg, 4 Hour Limit (In MG): 56, Drug Form : INJ, Continuous, Start date: 10/31/17 9:09:00 WELT ROUGHER, Duration: 30 day, Stop date : 11/30/17... Notes: Dose: Delay: Basal rate: 4hr limit:( Same as:Rapi-Ject) Start Date: 10/31/17 Stop Date: 10/31/17 Status: Discontinued morphine 1 mg/ml RISK PROFESSIONAL (30 mg/30 mL) INJ Syringe 30 mg 30 mL, Route: IV, RISK PROFESSIONAL Dose: 1 mg, RISK PROFESSIONAL Lockout: 10 minutes, Continuous Basal Rat e: 0 mg, 4 Hour Limit (In MG): 51, Drug Form: INJ, Continuous, Start date: 11/01 8:43:00 WELT ROUGHER, Duration: 30 day, Stop date: 12/01/17 8:42:00 WELT ROUGHER Start Date: 11/01/17 Stop Date: 11/01/17 Status: Discontinued morphine 1 mg/ml RISK PROFESSIONAL (30 mg/30 mL) INJ Syringe 30 mg 30 mg, 30 mL, Route: IV, RISK PROFESSIONAL Dose: 1 mg, RISK PROFESSIONAL Lockout: 20 minutes, Continuous Ba caio Rate: 0 mg, 4 Hour Limit (In MG): 14, Drug Form: INJ, Continuous, Start date : 11/01/17 15:51:00 WELT ROUGHER, Duration: 30 day, Stop date: 12/01/17 15:50:00 WELT ROUGHER Notes: Dose: Delay: Basal rate: 4hr limit:( Same as:Berna) Start Date: 11/01/17 Stop Date: 11/02/17 Status: Discontinued morphine 1 mg/ml RISK PROFESSIONAL (30 mg/30 mL) INJ Syringe 30 mg 30 mg, 30 mL, Route: IV, Initial Loading Dose: 2 mg, RISK PROFESSIONAL Dose: 1.5 mg, RISK PROFESSIONAL Lock out: 7 minutes, Continuous Basal Rate: 2.5 mg, 4 Hour Limit (In MG): 30, Drug Fo rm: INJ, Continuous, Start date: 10/28/17 15:56:00 WELT ROUGHER, Duration: 30 day, Stop d ate: ... Notes: Dose: Delay: Basal rate: 4hr limit:( Same as:Berna) Start Date: 10/28/17 Stop Date: 10/28/17 Status: Discontinued morphine 1 mg/ml RISK PROFESSIONAL (30 mg/30 mL) INJ Syringe 30 mg 30 mg, 30 mL, Route: IV, Initial Loading Dose: 2 mg, RISK PROFESSIONAL Dose: 1.5 mg, RISK PROFESSIONAL Lock out: 7 minutes, Continuous Basal Rate: 0 mg, 4 Hour Limit (In MG): 51, Drug Form : INJ, Continuous, Start date: 10/31/17 17:07:00 WELT ROUGHER, Duration: 30 day, Stop marcus e: 11/30/17... Notes: Dose: Delay: Basal rate: 4hr limit:( Same as:Berna) Start Date: 10/31/17 Stop Date: 11/01/17 Status: Discontinued morphine 1 mg/ml RISK PROFESSIONAL (30 mg/30 mL) INJ Syringe 30 mg 30 mg, 30 mL, Route: IV, Initial Loading Dose: 2 mg, RISK PROFESSIONAL Dose: 1.5 mg, RISK PROFESSIONAL Lock out: 7 minutes, Continuous Basal Rate: 3 mg, 4 Hour Limit (In MG): 30, Drug Form : INJ, Continuous, Start date: 10/28/17 19:14:00 WELT ROUGHER, Duration: 30 day, Stop marcus e: 11/27/17... Notes: Dose: Delay: Basal rate: 4hr limit:( Same as:Berna) Start Date: 10/28/17 Stop Date: 10/30/17 Status: Discontinued morphine 1 mg/ml RISK PROFESSIONAL (30 mg/30 mL) INJ Syringe 30 mg 30 mL, Route: IV, RISK PROFESSIONAL Dose: 1 mg, RISK PROFESSIONAL Lockout: 15 minutes, Continuous Basal Rat e: 0 mg, 4 Hour Limit (In MG): 24, Drug Form: INJ, Continuous, Start date: 11/01 15:50:00 WELT ROUGHER, Duration: 30 day, Stop date: 12/01/17 15:49:00 WELT ROUGHER Start Date: 11/01/17 Stop Date: 11/01/17 Status: Discontinued morphine 1 mg/ml RISK PROFESSIONAL (30 mg/30 mL) INJ Syringe 30 mg 30 mg, 30 mL, Route: IV, Initial Loading Dose: 0 mg, RISK PROFESSIONAL Dose: 0.5 mg, RISK PROFESSIONAL Lock out: 7 minutes, Continuous Basal Rate: 0 mg, 4 Hour Limit (In MG): 16, Drug Form : INJ, Continuous, Start date: 11/02/17 9:31:00 WELT ROUGHER, Duration: 30 day, Stop date : 12/02/17... Notes: Dose: Delay: Basal rate: 4hr limit:( Same as:Monsei-Ject) Start Date: 11/02/17 Stop Date: 11/03/17 Status: Discontinued morphine 15 mg oral tablet, extended release 30 mg, 2 tab, Route: PO, Drug form: ERTAB, Q12H, Dosing Weight 55.909, kg, Start date: 10/31/17 21:00:00 WELT ROUGHER, Duration: 30 day, Stop date: 11/30/17 9:00:00 WELT ROUGHER Start Date: 10/31/17 Stop Date: 11/03/17 Status: Discontinued morphine 15 mg oral tablet, immediate release 15 mg, 1 tab, Route: PO, Drug form: TAB, Q6H, Dosing Weight 55.909, kg, Start da te: 10/31/17 18:00:00 WELT ROUGHER, Duration: 30 day, Stop date: 11/30/17 12:00:00 WELT ROUGHER Notes: (Same as:MORPhine Sulfate) Start Date: 10/31/17 Stop Date: 10/31/17 Status: Discontinued morphine 15 mg oral tablet, immediate release 30 mg, 2 tab, Route: PO, Drug form: TAB, Q6H, Dosing Weight 55.909, kg, PRN Pain Score 1-5, Start date: 10/31/17 18:18:00 WELT ROUGHER, Duration: 30 day, Stop date: 06/09 18:17:00 WELT ROUGHER Notes: (Same as:MORPhine Sulfate) Start Date: 10/31/17 Stop Date: 11/03/17 Status: Discontinued morphine Sulfate 2 mg, 1 mL, Route: IVP, Drug form: INJ, ONCE, Dosing Weight 54.545, kg, Priority : STAT, Start date: 10/28/17 11:00:00 WELT ROUGHER, Stop date: 10/28/17 11:00:00 WELT ROUGHER Notes: (Same as:MORPhine Sulfate) Start Date: 10/28/17 Stop Date: 10/28/17 Status: Completed MS Contin 30 mg, Route: PO, Drug form: ERTAB, BID, Dosing Weight 55.909, kg, Start date: 0 11/03/17 17:00:00 WELT ROUGHER, Duration: 30 day, Stop date: 12/03/17 9:00:00 WELT ROUGHER Start Date: 11/03/17 Stop Date: 11/03/17 Status: Canceled naloxone 0.04 mg, 0.1 mL, Route: IVP, Drug form: INJ, Q2MIN, Dosing Weight 54.545, kg, VT N Narcotic Reversal, Start date: 10/28/17 15:56:00 WELT ROUGHER, Duration: 30 day, Stop d ate: 11/27/17 15:55:00 WELT ROUGHER Notes: Same as Narcan Start Date: 10/28/17 Stop Date: 11/02/17 Status: Discontinued naloxone 0.04 mg, 0.1 mL, Route: IVP, Drug form: INJ, Q2MIN, Dosing Weight 55.909, kg, VT N Narcotic Reversal, Start date: 11/02/17 9:31:00 WELT ROUGHER, Duration: 30 day, Stop da te: 12/02/17 9:30:00 WELT ROUGHER Notes: Same as Narcan Start Date: 11/02/17 Stop Date: 11/03/17 Status: Discontinued Nasal Mist 0.05% nasal spray 2 spray, Route: NASAL, Drug Form: SPRY, Dosing Weight 54.545, kg, BID, Start marcus e: 10/28/17 17:00:00 WELT ROUGHER, Duration: 5 day, Stop date: 11/02/17 9:00:00 WELT ROUGHER Notes: (Same as: Afrin) Start Date: 10/28/17 Stop Date: 11/02/17 Status: Completed [place] 10/325 oral tablet 1 tab, Route: PO, Drug Form: TAB, Dosing Weight 55.909, kg, Q6H, PRN Pain Score 6-10, Start date: 10/31/17 17:07:00 WELT ROUGHER, Duration: 30 day, Stop date: 11/30/17 1 7:06:00 WELT ROUGHER Notes: Do not exceed 4gm/day of acetaminophen. (Same as: [place] 325/10) Start Date: 10/31/17 Stop Date: 11/03/17 Status: Discontinued oxyCODONE 5 mg oral tablet 5 mg, 1 tab, Route: PO, Drug form: TAB, Q4H, Dosing Weight 55.909, kg, PRN Pain Score 7-10, Start date: 10/30/17 8:48:00 WELT ROUGHER, Duration: 30 day, Stop date: 11/29 8:47:00 WELT ROUGHER Notes: (Same as: Roxicodone) Start Date: 10/30/17 Stop Date: 10/31/17 Status: Discontinued oxyCODONE 5 mg oral tablet 5 mg, 1 tab, Route: PO, Drug form: TAB, Q6H, Dosing Weight 55.909, kg, PRN Pain Score 4-6, Start date: 10/28/17 18:20:00 WELT ROUGHER, Duration: 30 day, Stop date: 11/27 18:19:00 WELT ROUGHER Notes: (Same as: Roxicodone) Start Date: 10/28/17 Stop Date: 10/30/17 Status: Discontinued oxyCODONE 5 mg oral tablet 5 mg, Route: PO, Drug form: TAB, Q8H, Dosing Weight 55.909, kg, PRN Pain Score 7 -10, Start date: 10/30/17 8:37:00 WELT ROUGHER, Duration: 30 day, Stop date: 11/29/17 8:3 6:00 WELT ROUGHER Start Date: 10/30/17 Stop Date: 10/30/17 Status: Discontinued pantoprazole 40 mg, 1 tab, Route: PO, Drug form: ECTAB, Before Breakfast, Dosing Weight 55.90 9, kg, Priority: NOW, Start date: 10/29/17 8:20:00 WELT ROUGHER, Duration: 30 day, Stop d ate: 11/28/17 7:30:00 WELT ROUGHER Notes: Tablet should not be chewed or crushed.(Same as: Protonix) Start Date: 10/29/17 Stop Date: 11/03/17 Status: Discontinued potassium chloride 40 mEq, 2 tab, Route: PO, Drug form: ERTAB, ONCE, Dosing Weight 55.909, kg, Prio rity: STAT, Start date: 10/30/17 8:56:00 WELT ROUGHER, Stop date: 10/30/17 8:56:00 WELT ROUGHER Notes: (Same as: K-Dur 20) Start Date: 10/30/17 Stop Date: 10/30/17 Status: Completed senna 8.6 mg, 1 tab, Route: PO, Drug Form: TAB, Dosing Weight 55.909, kg, BID, NOW, St art date: 11/01/17 13:41:00 WELT ROUGHER, Duration: 30 day, Stop date: 12/01/17 9:00:[address] Notes: (Same as: Senokot) Start Date: 11/01/17 Stop Date: 11/03/17 Status: Discontinued senna 6.6 mg, Route: PO, Dosing Weight 55.909, kg, BID, NOW, Start date: 11/01/17 10:0 5:00 WELT ROUGHER, Duration: 30 day, Stop date: 12/01/17 9:00:00 WELT ROUGHER Start Date: 11/01/17 Stop Date: 11/01/17 Status: Discontinued Zofran 4 mg, 2 mL, Route: IV, Drug form: INJ, ONCE, Dosing Weight 55.909, kg, Start marcus e: 11/02/17 21:11:00 WELT ROUGHER, Stop date: 11/02/17 21:11:00 WELT ROUGHER Notes: (Same as: Zofran) MEDICATION WASTE Product Size: 4 mgProduct Was kallie: ___ mg Start Date: 11/02/17 Stop Date: 11/02/17 Status: Completed Zofran 4 mg, 2 mL, Route: IVP, Drug form: INJ, ONCE, Dosing Weight 55.909, kg, Priority : NOW, Start date: 10/30/17 17:40:00 WELT ROUGHER, Stop date: 10/30/17 17:40:00 WELT ROUGHER Notes: (Same as: Zofran) MEDICATION WASTE Product Size: 4 mgProduct Was kallie: ___ mg Start Date: 10/30/17 Stop Date: 10/30/17 Status: Completed Zofran 4 mg, 2 mL, Route: IVP, Drug form: INJ, ONCE, Dosing Weight 55.909, kg, Priority : NOW, Start date: 11/01/17 10:58:00 WELT ROUGHER, Stop date: 11/01/17 10:58:00 WELT ROUGHER Notes: (Same as: Zofran) MEDICATION WASTE Product Size: 4 mgProduct Was kallie: ___ mg Start Date: 11/01/17 Stop Date: 11/01/17 Status: Completed Zofran 4 mg, 1 tab, Route: PO, Drug form: TAB, ONCE, Dosing Weight 55.909, kg, Start da te: 10/30/17 1:41:00 WELT ROUGHER, Stop date: 10/30/17 1:41:00 WELT ROUGHER Notes: (Same as: Zofran) Start Date: 10/30/17 Stop Date: 10/30/17 Status: Completed Zofran 4 mg, 2 mL, Route: IVP, Drug form: INJ, ONCE, Dosing Weight 54.545, kg, Priority : STAT, Start date: 10/28/17 11:44:00 WELT ROUGHER, Stop date: 10/28/17 11:44:00 WELT ROUGHER Notes: (Same as: Zofran) MEDICATION WASTE Product Size: 4 mgProduct Was kallie: ___ mg Start Date: 10/28/17 Stop Date: 10/28/17 Status: Completed Zofran ODT 4 mg, 1 tab, Route: PO, Drug form: TABDIS, Q8H, Dosing Weight 55.909, kg, PRN Na usea, Start date: 11/01/17 22:32:00 WELT ROUGHER, Duration: 30 day, Stop date: 12/01/17 2 2:31:00 WELT ROUGHER Notes: (Same as: Zofran ODT) Start Date: 11/01/17 Stop Date: 11/03/17 Status: [...] *HI* (11/01/17 4:07 AM) RDW [11.5-14.5 %] 216 K/CMM (11/03/17 5:30 AM) 155 K/CMM (11/02/17 3:44 AM) 149 K/CMM (11/01/17 4:07 AM) Platelet [133-450 K/CMM] 8.2 fL (11/03/17 5:30 AM) 8.2 fL (11/02/17 3:44 AM) 8.9 fL (11/01/17 4:07 AM) MPV [7.4-10.4 fL] 57.4 % (11/03/17 5:30 AM) 46.0 % [...] to SMITH. Jade at 11/02/2017 04:53 by ALBERTA. Read back OK. 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 Code status: Full Code [Ordered]Current diet: Isolation: [...] Lvl86 BUN3 L Creatinine Lvl0.42 L Sodium Sap069 Potassium Lvl 4.0 Chloride Cgp643 CO228 AGAP8.0 L Calcium Lvl8.7 [id number] HBE414 H WBC11.3 H RBC2.85 L Hgb6.3 C Hct20.0 C MCV69.9 L MCH22.0 L MCHC31.5 L RDW16.5 H Bsyldgfr723 MPV8.2 Retic Auto9.2 H Segs57.4 Monocytes9.4 Frcyduijfhg75.8 Eosinophils3.2 Basophils0.2 Segs-Bands #6.5 Lymphocytes #3.4 Monocytes #1.1 H Eosinophils #0.4 Anisocyte1+ Microcyte2+ Hypochrom1+ PolychromModerate Schistocyte1-3 per HPF Sickle CellOccasional Medications (17) Active Scheduled Meds (9): 10/30/17 acetaminophen 650 mg PO Q6H 10/28/17 docusate 100 mg PO BID 10/28/17 enoxaparin (Lovenox) 40 mg SUB-Q [id number] 10/29/17 folic acid 1 mg PO Daily 10/28/17 gabapentin (gabapentin 300 mg oral capsule) 300 mg PO Q8H 10/31/17 morphine Sulfate (morphine 15 mg oral tablet, extended release) 30 mg PO Q12H 10/29/17 pantoprazole 40 mg PO Before Breakfast 11/01/17 polyethylene glycol 3350 (MiraLax) 17 gm PO Daily 11/01/17 senna 8.6 mg PO BID Unscheduled Meds: None PRN Meds (6): 10/31/17 acetaminophen-hydrocodone ([place] 10/325 oral tablet) 1 tab PO Q6H [...] LR @125 cc/hr - Administer Ibuprofen, tylenoland RISK PROFESSIONAL Pump - F/U Reticulocyte count - F/U [...]
--- OUTSIDE RECORDS SUMMARY | 2019-03-11 17:23 | XMS REPORT | Summary of Care ---
Author Author [facility] Organization [facility] Address Unknown Phone Unavailable Encounter GINGER Hobbs(ARSENIO) [id number] Date(s): 02/09/18 - 02/10/18 [facility] [address] [employer] provided by [facility] [place] [address]- Discharge Disposition: Left Without Being Seen Attending Physician: Rolan Peters MD Vital Signs Most recent to 1 oldest [Reference Range]: Temperature Oral 98.4 DegF [96.4-99.1 DegF] (02/09/18 5:49 PM) Blood Pressure 132/60 mmHg [90-140/60-90 mmHg] (02/09/18 5:49 PM) Respiratory Rate 18 BRMIN [14-20 BRMIN] (02/09/18 5:49 PM) Peripheral Pulse 99 bpm Rate [60-100 bpm] (02/09/18 5:49 PM) Problem List Condition Effective Dates Status Health Status Informant Anxiety disorder, Active unspecified(Confirme d) Cardiomegaly(Confirm Active ed) Sickle cell Active crisis(Confirmed) Anxiety and Resolved depression(Confirmed ) Depression(Confirmed Active ) Allergies, Adverse Reactions, Alerts Substance Reaction Severity Status Augmentin hives Active Medications No data available for this section Results ELECTROLYTES Most recent to 1 oldest [Reference Range]: Sodium Lvl [135-145 143 mEq/L mEq/L] (02/09/18 5:53 PM) Potassium Lvl 4.3 mEq/L [3.5-5.1 mEq/L] (02/09/18 5:53 PM) Chloride Lvl [95-109 109 mEq/L mEq/L] (02/09/18 5:53 PM) CO2 [24-32 mEq/L] 25 mEq/L (02/09/18 5:53 PM) AGAP [10.0-20.0 13.3 mEq/L mEq/L] (02/09/18 5:53 PM) CHEM PANEL Most recent to 1 oldest [Reference Range]: Creatinine Lvl 0.44 mg/dL [0.50-1.40 mg/dL] *LOW* (02/09/18 5:53 PM) eGFR 167 mL/min/1.73m2 1 *NA* (02/09/18 5:53 PM) BUN [7-22 mg/dL] 6 mg/dL *LOW* (02/09/18 5:53 PM) Glucose Lvl [70-99 95 mg/dL mg/dL] (02/09/18 5:53 PM) Calcium Lvl 8.6 mg/dL [8.5-10.5 mg/dL] (02/09/18 5:53 PM) 1Result Comment: The eGFR is calculated [...] by the estimated BMI. URINE AND STOOL Most recent to 1 oldest [Reference Range]: UA Turbidity [Clear] Slight Cloudy (02/09/18 8:30 PM) UA Color [Yellow] Yellow *NA* (02/09/18 8:30 PM) UA pH [5.0-8.0] 6.0 (02/09/18 8:30 PM) UA Spec Grav <=1.005 [<=1.030] *NA* (02/09/18 8:30 PM) UA Glucose Negative [Negative] (02/09/18 8:30 PM) UA Blood [Negative] Trace *ABN* (02/09/18 8:30 PM) UA Ketones Negative [Negative] *NA* (02/09/18 8:30 PM) UA Protein Negative [Negative] (02/09/18 8:30 PM) UA Urobilinogen 0.2 EU/dL [0.1-1.0 EU/dL] (02/09/18 8:30 PM) UA Bili [Negative] Negative *NA* (02/09/18 8:30 PM) UA Leuk Est Negative [Negative] (02/09/18 8:30 PM) UA Nitrite Negative [Negative] (02/09/18 8:30 PM) UA WBC [None Seen 0-2 /HPF /HPF] (02/09/18 8:30 PM) UA RBC [0-2 /HPF] 0-2 /HPF (02/09/18 8:30 PM) UA Bacteria [None Few /HPF Seen /HPF] (02/09/18 8:30 PM) UA Sq Epi [Few /LPF] Occasional /LPF (02/09/18 8:30 PM) HEMATOLOGY Most recent to 1 oldest [Reference Range]: WBC [3.7-10.4 K/CMM] 9.5 K/CMM (02/09/18 5:53 PM) RBC [4.20-5.40 3.31 M/CMM M/CMM] *LOW* (02/09/18 5:53 PM) Hgb [12.0-16.0 g/dL] 7.3 g/dL *LOW* (02/09/18 5:53 PM) Hct [36.0-48.0 %] 22.7 % *LOW* (02/09/18 5:53 PM) MCV [80.0-98.0 fL] 68.6 fL *LOW* (02/09/18 5:53 PM) MCH [27.0-31.0 pg] 22.1 pg *LOW* (02/09/18 5:53 PM) MCHC [32.0-36.0 32.1 g/dL g/dL] (02/09/18 5:53 PM) RDW [11.5-14.5 %] 19.8 % *HI* (02/09/18 5:53 PM) MPV [7.4-10.4 fL] 7.9 fL (02/09/18 5:53 PM) Platelet [133-450 316 K/CMM K/CMM] (02/09/18 5:53 PM) Segs [45.0-75.0 %] 49.0 % (02/09/18 5:53 PM) Lymphocytes 37.3 % [20.0-40.0 %] (02/09/18 5:53 PM) Monocytes [2.0-12.0 10.2 % %] (02/09/18 5:53 PM) Eosinophils [0.0-4.0 2.1 % %] (02/09/18 5:53 PM) Basophils [0.0-1.0 1.4 % %] *HI* (02/09/18 5:53 PM) Segs-Bands # 4.7 K/CMM [1.5-8.1 K/CMM] (02/09/18 5:53 PM) Lymphocytes # 3.6 K/CMM [1.0-5.5 K/CMM] (02/09/18 5:53 PM) Monocytes # [0.0-0.8 1.0 K/CMM K/CMM] *HI* (02/09/18 5:53 PM) Eosinophils # 0.2 K/CMM [0.0-0.5 K/CMM] (02/09/18 5:53 PM) Basophils # [0.0-0.2 0.1 K/CMM K/CMM] (02/09/18 5:53 PM) Anisocyte [None 1+ Seen] *ABN* (02/09/18 5:53 PM) Polychrom [None Moderate Seen] *ABN* (02/09/18 5:53 PM) Hypochrom [None 1+ Seen] (02/09/18 5:53 PM) Microcyte [None 3+ Seen] *NA* (02/09/18 5:53 PM) Target Cell [None Moderate Seen] *ABN* (02/09/18 5:53 PM) Tear Cell [None Moderate Seen] *ABN* (02/09/18 5:53 PM) Sickle Cell [None Slight Seen] *ABN* (02/09/18 5:53 PM) Spherocyte [None Occasional Seen] *ABN* (02/09/18 5:53 PM) Anay Body [None Occasional Seen] *ABN* (02/09/18 5:53 PM) Schistocyte [None 1-3 per HPF Seen] (02/09/18 5:53 PM) Retic Auto [0.5-1.5 7.6 % %] *HI* (02/09/18 5:53 PM) Immunizations Not Given Vaccine Date Status Refusal [...]
--- OUTSIDE RECORDS SUMMARY | 2019-03-11 17:23 | XMS REPORT | Summary of Care ---
Author Author [facility] Organization [facility] Address Unknown Phone Unavailable Encounter GINGER Hobbs(ARSENIO) [id number] Date(s): 05/06/18 - 05/09/18 [facility] [address] [employer] provided by [facility] [place] [address]- Discharge Disposition: Home or Self Care Attending [...] date: 06/07/18 2:33:00 CDT Notes: (Same as: [place], Deep Sea Nasal [place]). Start Date: 05/08/18 Stop Date: 05/09/18 Status: [...] PO, TID, 0 Refill(s) Start Date: 05/07/18 Status: Ordered hydrOXYzine hydrochloride 50 mg oral tablet 50 mg=1 tab, PO, PRN, 0 Refill(s) Start Date: 05/07/18 Status: Ordered ibuprofen 800 mg, 1 tab, Route: PO, Drug form: TAB, Q8H, Dosing Weight 56.818, kg, PRN Ksenia n Score 1-3, Start date: 05/08/18 9:47:00 CDT, Duration: 30 day, Stop date: 05/23 04/09 9:46:00 CDT Notes: (Same as: Motjayde)"Do Not Crush" Take with food. Start Date: [...] PO, Q8H, 0 Refill(s) Start Date: 05/07/18 Status: Ordered Keppra 500 mg oral tablet 500 mg, [...] PO, PRN, 0 Refill(s) Start Date: 05/07/18 Status: Ordered Lovenox 40 mg, 0.4 mL, Route: SUB-Q, Drug form: INJ, [id number], Dosing Weight 56.818, kg, Start date: 05/06/18 [...] Date: 05/07/18 Status: Ordered morphine 1 mg/ml [facility] [employer] [facility] (30 mg/30 mL) INJ Syringe 30 mg 30 mL, Route: IV, Initial Loading Dose: 2 mg, [facility] [employer] [facility] Dose: 1 mg, [facility] Lockout: 10 m inutes, Continuous Basal Rate: 1 mg, 4 Hour Limit (In MG): 28, Drug Form: INJ, C ontinuous, Start date: 05/07/18 10:15:00 CDT, Duration: 30 day, Stop date: 06/06 10:14:0... Start Date: 05/07/18 Stop Date: 05/07/18 Status: Discontinued morphine 1 mg/ml [facility] [employer] [facility] (30 mg/30 mL) INJ Syringe 30 mg 30 mg, 30 mL, Route: IV, Initial Loading Dose: 2 mg, [facility] [employer] [facility] Dose: 0.5 mg, [facility] Lock out: 10 minutes, Continuous Basal Rate: 0.5 mg, 4 Hour Limit (In MG): 14, Drug F orm: INJ, Continuous, Start date: 05/06/18 14:21:00 CDT, Stop date: 06/05/18 14: 20:00 CDT Notes: Dose: Delay: Basal rate: 4hr limit:( Same as:Cristin-Kelly) Start Date: 05/06/18 Stop Date: 05/06/18 Status: Discontinued morphine 1 mg/ml [facility] [employer] [facility] (30 mg/30 mL) INJ Syringe 30 mg 30 mg, 30 mL, Route: IV, Initial Loading Dose: 2 mg, [facility] [employer] [facility] Dose: 1 mg, [facility] Lockou t: 10 minutes, Continuous Basal Rate: 1 mg, 4 Hour Limit (In MG): 14, Drug Form: INJ, Continuous, Start date: 05/06/18 19:33:00 CDT, Duration: 30 day, Stop date: 06/05/18... Notes: Dose: 1 mg Delay: 10 min Basal rate: 0 4hr limit: 14 mg(Same as:Berna) Start Date: 05/06/18 Stop Date: 05/07/18 Status: Discontinued morphine 1 mg/ml [facility] [employer] [facility] (30 mg/30 mL) INJ Syringe 30 mg 30 mg, 30 mL, Route: IV, Initial Loading Dose: 2 mg, [facility] [employer] [facility] Dose: 0.5 mg, [facility] [employer] Lock out: 10 minutes, Continuous Basal Rate: 1 mg, 4 Hour Limit (In MG): 10, Drug For m: INJ, Continuous, Start date: 05/07/18 8:18:00 CDT, Duration: 30 day, Stop marcus e: 06/06/18... Notes: Dose: Delay: Basal rate: 4hr limit:( Same as:Cristin-Kelly) Start Date: 05/07/18 Stop Date: 05/07/18 Status: Discontinued morphine 1 mg/ml [facility] [employer] [facility] (30 mg/30 mL) INJ Syringe 30 mg 30 mg, 30 mL, Route: IV, Initial Loading Dose: 2 mg, [facility] [employer] [facility] Dose: 1 mg, [facility] [facility] Lockou t: 10 minutes, Continuous Basal Rate: 0 mg, 4 Hour Limit (In MG): 22, Drug Form: INJ, Continuous, Start date: 05/08/18 11:45:00 CDT, Duration: 30 day, Stop date: 06/07/18... Notes: Dose: Delay: Basal rate: 4hr limit:( Same as:Berna) Start Date: 05/08/18 Stop Date: 05/08/18 Status: Discontinued morphine 1 mg/ml [facility] [employer] (30 mg/30 mL) INJ Syringe 30 mg 30 mg, 30 mL, Route: IV, Initial Loading Dose: 2 mg, [facility] [employer] [facility] Dose: 1 mg, [facility] Lockou t: 10 minutes, Continuous Basal Rate: 1 mg, 4 Hour Limit (In MG): 22, Drug Form: INJ, Continuous, Start date: 05/07/18 10:18:00 CDT, Duration: 30 day, Stop date: 06/06/18... Notes: Dose: Delay: Basal rate: 4hr limit:( Same as:Berna) Start Date: 05/07/18 Stop Date: 05/08/18 Status: [...] form: INJ, Q2MIN, Dosing Weight 56.818, kg, AR N Narcotic Reversal, Start date: 05/06/18 14:21:00 [...] 0 Refill(s) Start Date: 05/07/18 Status: Ordered Proventil HFA 90 mcg/inh inhalation aerosol with [...] *LOW* (05/09/18 6:05 AM) 21.5 % *LOW* (05/08/18 5:17 AM) 22.7 % *LOW* (05/07/18 3:11 AM) Hct [36.0-48.0 %] 72.1 fL *LOW* (05/09/18 6:05 AM) 71.7 fL *LOW* (05/08/18 5:17 AM) 71.7 fL *LOW* (05/07/18 3:11 AM) MCV [80.0-98.0 fL] 23.6 pg *LOW* (05/09/18 6:05 AM) 23.9 pg *LOW* (05/08/18 5:17 AM) 23.3 pg *LOW* (05/07/18 3:11 AM) MCH [27.0-31.0 pg] 32.7 g/dL (05/09/18 6:05 AM) 33.3 g/dL (05/08/18 5:17 AM) 32.4 g/dL (05/07/18 3:11 AM) MCHC [32.0-36.0 g/dL] 15.7 % *HI* (05/09/18 6:05 AM) 15.5 % *HI* (05/08/18 5:17 AM) 16.1 % *HI* (05/07/18 3:11 AM) RDW [11.5-14.5 %] 8.7 fL (05/09/18 6:05 AM) 8.5 fL (05/08/18 5:17 AM) 8.5 fL (05/07/18 3:11 AM) MPV [...] AM) 9.3 K/CMM *HI* (05/07/18 3:11 AM) Segs-Bands # [1.5-8.1 K/CMM] 2.7 K/CMM (05/09/18 6:05 [...] None. Alcohol Never Smoking Status Never smoker; Type: Cigarettes; Exposure to Tobacco Smoke None; Cigarette Smoking Last 365 Days No; Reg Smoking Cessation Counseling No entered on: 05/06/18 Assessment and Plan Extracted from: Title: Team D Progress Note Author: Alexandrea Dyson MD Date: 05/08/18 22 yo F w/ a h/o SCD and seizure d/o presents with diffuse pain through body. Pt has a 2 year history with multiple hospitalizations about once per month. Pt's pain is being managed with PO pain meds. 1.Sickle cell crisis -[facility] [employer] pump dc'd. -Current pain regimen is MS [...] seen and examined by me with the resident/RHIA/PA and I agree with the History/Exam documented. Ms. Jack is a 22 year old woman with a medical history of sickle cell disease who is presenting with an acute pain crisis. She is improving and ashould be continued on [facility] [employer] and hypotonic fluid. Toradol should be scheduled for the next 48 hours and [place] 10/325. #Acute pain crisis - Continue 0.45 saline - Continue [facility] [employer] - Toradol 15 mg Q6H for next 48 Hours - Ibuprofen 800 mg Q6H with meals afterwards toradol completed - Start [place] 10/325 Q6H scheduled, Continue [facility] [employer] [facility] settings as it is. - Start long acting morphine, home dose, tomorrow to wean from [facility] [employer] [facility] - No need for transfusion at this [...] schedule Toradol 15 mg IV q6h and [place] 10/325 mg, 1 tab PO q6h. Keep morphine [facility] [employer] settings the same today. Plan to dc [facility] [employer] tomorrow and start morphine 3 mg IV [...] see patient to make recommendations for future terminal worker management for her sickle cell given frequent [...]
--- OUTSIDE RECORDS SUMMARY | 2019-03-11 17:24 | XMS REPORT | Summary of Care ---
Author Author [facility] Organization [facility] Address Unknown Phone Unavailable Encounter GINGER Hobbs(ARSENIO) [id number] Date(s): 05/14/18 - 05/18/18 [facility] [address] [place] [address]- [phone] Encounter Diagnosis Hb-SS disease with crisis, unspecified (Final) - 05/25/18 Pneumonia, unspecified organism (Final) - Cardiomegaly (Final) - Anxiety disorder, unspecified (Final) - Major depressive disorder, single episode, unspecified (Final) - Other specified abnormal findings of blood chemistry (Final) - Iron deficiency anemia, unspecified (Final) - Discharge Disposition: Acute Care Attending Physician: Soto Nicolas MD Admitting Physician: Soto Nicolas MD Vital Signs 1 2 3 Most recent to oldest [Reference Range]: 162.56 cm (05/15/18 3:10 AM) 157.48 cm (05/14/18 9:00 PM) Height 66.42 kg (05/18/18 5:06 AM) 65.966 kg (05/17/18 5:11 AM) Current Weight 98.7 DegF (05/18/18 3:59 PM) 98.5 DegF (05/18/18 11:51 AM) 98.4 DegF (05/18/18 9:18 AM) Temperature Oral [96.4-99.1 DegF] 94/54 mmHg (05/18/18 3:59 PM) 113/71 mmHg (05/18/18 11:51 AM) 96/57 mmHg (05/18/18 9:18 AM) Blood Pressure [90-140/60-90 mmHg] 18 BRMIN (05/18/18 3:59 PM) 18 BRMIN (05/18/18 11:51 AM) 16 BRMIN (05/18/18 9:15 AM) Respiratory Rate [14-20 BRMIN] 95 bpm (05/18/18 3:59 PM) 90 bpm (05/18/18 11:51 AM) 86 bpm (05/18/18 9:18 AM) Peripheral Pulse Rate [60-100 bpm] 65.966 kg (05/15/18 3:10 AM) 56.818 kg (05/14/18 9:00 PM) Weight 24.96 m2 (05/15/18 3:10 AM) 22.91 m2 (05/14/18 9:00 PM) Body Mass Index Problem List Condition Effective Dates Status Health Status Informant Anxiety disorder, Active unspecified(Confirme d) Cardiomegaly(Confirm Active ed) Sickle cell Active crisis(Confirmed) Anxiety and Resolved depression(Confirmed ) Depression(Confirmed Active ) Sickle cell Active disease(Confirmed) Allergies, Adverse Reactions, Alerts Substance Reaction Severity Status Augmentin hives Active Medications *ATTN RN please do not admin vanc dose until trough drawn* *ATTN RN please do not admin vanc dose until trough drawn*, ATTN RN, Drug f orm: MISC, Route: MISC, ONCE, 05/17/18 15:30:00 CDT, Stop date: 05/17/18 15:30:0 0 CDT Start Date: 05/17/18 Stop Date: 05/17/18 Status: Completed *ATTN RN please do not admin vanc dose until trough drawn* *ATTN RN please do not admin vanc dose until trough drawn*, ATTN RN, Drug fo rm: MISC, Route: MISC, ONCE, 05/16/18 12:00:00 CDT, Stop date: 05/16/18 12:00:00 CDT Start Date: 05/16/18 Stop Date: 05/16/18 Status: Deleted 1/2 NS 1,000 mL 1,000 mL, Rate: 100 ml/hr, Infuse over: 10 hr, Route: IV, Dosing Weight 65.966 k g, Total Volume: 1,000, Start date: 05/16/18 15:47:00 CDT, Duration: 30 day, Sto p date: 06/15/18 15:46:00 CDT, 1.74, m2 Start Date: 05/16/18 Stop Date: 05/18/18 Status: Discontinued acetaminophen-hydrocodone 325 mg-5 mg oral tablet 1 tab, PO, Q4H, PRN Pain Score 4-6, 0 Refill(s) Start Date: 05/18/18 Status: Ordered acetaminophen-hydrocodone 325 mg-5 mg oral tablet 1 tab, Route: PO, Drug Form: TAB, Dosing Weight 56.818, kg, Q4H, PRN Pain Score 4-6, Max acetaminophen dose 3 grams in 24 hours, Start date: 05/15/18 1:57:00 CD T, Duration: 30 day, Stop date: 06/14/18 1:56:00 CDT Notes: (Same as: Camas 325/5) Do not exceed 4gm/day of acetaminophen. Start Date: 05/15/18 Stop Date: 05/18/18 Status: Discontinued Benadryl 12.5 mg, 0.5 tab, Route: PO, Drug form: TAB, TID, Dosing Weight 65.966, kg, PRN Itching, Start date: 05/17/18 14:17:00 CDT, Duration: 30 day, Stop date: 8 14:16:00 CDT Start Date: 05/17/18 Stop Date: 05/18/18 Status: Discontinued cefepime 1 gm, Route: IVPB, ONCE, Dosing Weight 56.818, kg, Priority: STAT, Start date: 0 05/15/18 0:25:00 CDT, Stop date: 05/15/18 0:25:00 CDT, ABX Indication: Pneumonia Start Date: 05/15/18 Stop Date: 05/15/18 Status: Completed cefepime + Sodium Chloride 0.9% IV 100 mL 2 gm, Route: IVPB, [id number], Dosing Weight 56.818, kg, (CrCl >/=50 ml/min, [employer]OR infection or neutropenic fever), Start date: 05/15/18 2:00:00 CDT, Duration: 7 day, Stop date: 05/22/18 1:00:00 CDT, ABX Indication: Pneumonia Notes: (Same as: Maxipime) MEDICATION WASTE Product Size: 2000 mgProduc t Wasted: ___ mg Start Date: 05/15/18 Stop Date: 05/17/18 Status: Discontinued cetirizine 10 mg, 2 tab, Route: PO, Drug form: TAB, Daily, PRN Allergies, Start date: 05/15 8:32:00 CDT, Duration: 30 day, Stop date: 06/14/18 8:31:00 CDT Notes: (Same As: Vanessateyaritza) Start Date: 05/15/18 Stop Date: 05/18/18 Status: Discontinued cetirizine 5 mg oral tablet 10 mg=2 tab, PO, Daily, PRN Allergies, 0 Refill(s) Start Date: 05/18/18 Status: Ordered diphenhydrAMINE 12.5 mg, 0.25 mL, Route: IV, Drug form: INJ, ONCE, Dosing Weight 56.818, kg, Reyna ority: STAT, Start date: 05/14/18 22:00:00 CDT, Stop date: 05/14/18 22:00:00 CDT Notes: (Same as: Sageryl) Start Date: 05/14/18 Stop Date: 05/14/18 Status: Completed diphenhydrAMINE 25 mg oral tablet 12.5 mg=0.5 tab, PO, TID, PRN Itching, 0 Refill(s) Start Date: 05/18/18 Status: Ordered docusate sodium 100 mg oral capsule 100 mg=1 cap, PO, BID, PRN Constipation, # 14 cap, 0 Refill(s), Pharmacy: [facility] [id number] Start Date: 05/18/18 Stop Date: 05/25/18 Status: Ordered docusate sodium 100 mg oral capsule 100 mg, 1 cap, Route: PO, Drug form: CAP, BID, Dosing Weight 56.818, kg, PRN Con stipation, Start date: 05/15/18 1:57:00 CDT, Duration: 30 day, Stop date: 1:56:00 CDT Notes: (Same as: Colace) (Do Not Crush) Start Date: 05/15/18 Stop Date: 05/18/18 Status: Discontinued doxycycline 100 mg, PO, BID, 0 Refill(s) Start Date: 05/15/18 Stop Date: 05/18/18 Status: Discontinued DuoNeb inhalation solution 3 mL, NEB, PRN, PRN Respiratory Pathway, 0 Refill(s) Start Date: 05/18/18 Stop Date: 05/24/18 Status: Discontinued DuoNeb inhalation solution 3 ml, Route: NEB, Drug Form: SOLN, Dosing Weight 65.966, kg, PRN, PRN Respirator y Pathway, Start date: 05/16/18 15:44:00 CDT, Duration: 30 day, Stop date: 06/15 15:43:00 CDT Notes: (Same as: Duoneb) Start Date: 05/16/18 Stop Date: 05/18/18 Status: Discontinued folic acid 1 mg, 1 tab, Route: PO, Drug form: TAB, Daily, Dosing Weight 65.966, kg, Start d ate: 05/15/18 9:00:00 CDT, Duration: 30 day, Stop date: 06/13/18 9:00:00 CDT Notes: (Same as: Folvite) Start Date: 05/15/18 Stop Date: 05/18/18 Status: Discontinued Keppra 500 mg oral tablet 500 mg, 1 tab, Route: PO, Drug form: TAB, BID, Dosing Weight 65.966, kg, Start d ate: 05/15/18 9:00:00 CDT, Duration: 30 day, Stop date: 06/13/18 21:00:00 CDT Notes: (Same as:Keppra) Start Date: 05/15/18 Stop Date: 05/18/18 Status: Discontinued ketOROLAC 15 mg/mL injectable solution 15 mg, 1 mL, Route: IVP, Drug form: INJ, Q6H, Dosing Weight 65.966, kg, PRN Pain Score 4-6, Start date: 05/15/18 21:56:00 CDT, Duration: 4 day, Stop date: 05/19 21:55:00 CDT Notes: (Same as:Toradol) IV bolus must be given >15 seconds. Give IM administration slowly and deeply into the muscle. Not for use > 4 days. Start Date: 05/15/18 Stop Date: 05/18/18 Status: Discontinued ketOROLAC 15 mg/mL injectable solution 15 mg=1 mL, IVP, Q6H, PRN Pain Score 4-6, 0 Refill(s) Start Date: 05/18/18 Stop Date: 05/24/18 Status: Discontinued lactobacillus acidophilus 1 tab, Route: PO, Drug Form: TAB, Dosing Weight 65.966, kg, BID, Start date: 9:00:00 CDT, Duration: 30 day, Stop date: 06/13/18 17:00:00 CDT Start Date: 05/15/18 Stop Date: 05/15/18 Status: Deleted lactobacillus rhamnosus GG PO, BID, 0 Refill(s) Start Date: 05/18/18 Status: Ordered lactobacillus rhamnosus GG 1 cap, Route: PO, Drug Form: CAP, BID, Start date: 05/15/18 9:00:00 CDT, Duratio n: 30 day, Stop date: 06/13/18 17:00:00 CDT Notes: Same as Culturelle Start Date: 05/15/18 Stop Date: 05/18/18 Status: Discontinued Levaquin 750 mg, 150 mL, Route: IVPB, Drug form: SOLN, [id number], Dosing Weight 65.966, kg, Start date: 05/18/18 0:00:00 CDT, Duration: 7 day, Stop date: 05/24/18 0:00:00 CDT, ABX Indication: Pneumonia Notes: (Same as:Levaquin) Start Date: 05/18/18 Stop Date: 05/18/18 Status: Discontinued Levaquin 750 mg oral tablet 750 mg=1 tab, PO, Daily, X 4 day, # 4 tab, 0 Refill(s), Pharmacy: [facility] [id number] Start Date: 05/18/18 Stop Date: 05/18/18 Status: Discontinued levofloxacin 750 mg/150 mL intravenous solution 750 cz=420 mL, IVPB, [id number], 0 Refill(s) Start Date: 05/18/18 Stop Date: 05/24/18 Status: Discontinued loratadine 10 mg, Route: PO, Drug form: TAB, PRN, Dosing Weight 65.966, kg, PRN as needed f or allergy symptoms, Start date: 05/15/18 8:24:00 CDT, Duration: 30 day, Stop da te: 06/14/18 8:23:00 CDT Start Date: 05/15/18 Stop Date: 05/15/18 Status: Deleted MiraLax 17 gm, 1 pkt, Route: PO, Drug form: PWDR, Daily, Dosing Weight 65.966, kg, Start date: 05/19/18 15:00:00 CDT, Duration: 30 day, Stop date: 06/18/18 9:00:00 CDT Notes: Dissolve in 8 oz of water or juice.(Same as: Miralax) Start Date: 05/19/18 Stop Date: 05/18/18 Status: Deleted MiraLax 17 gm, 1 pkt, Route: PO, Drug form: PWDR, Daily, Dosing Weight 65.966, kg, Start date: 05/18/18 14:00:00 CDT, Duration: 30 day, Stop date: 06/17/18 9:00:00 CDT Notes: Dissolve in 8 oz of water or juice.(Same as: Miralax) Start Date: 05/18/18 Stop Date: 05/18/18 Status: Discontinued mirtazapine 30 mg, 2 tab, Route: PO, Drug form: TAB, Bedtime, Dosing Weight 65.966, kg, Star t date: 05/15/18 21:00:00 CDT, Duration: 30 day, Stop date: 06/13/18 21:00:00 CD T Notes: (Same as:Remeron) Start Date: 05/15/18 Stop Date: 05/18/18 Status: Discontinued morphine 1 mg/ml [employer] (30 mg/30 mL) INJ Syringe 30 mg 30 mg, 30 mL, Route: IV, Initial Loading Dose: 2 mg, [employer]ICE Dose: 1 mg, DIRECTOR [employer] Lockou t: 10 minutes, Continuous Basal Rate: 0 mg, 4 Hour Limit (In MG): 30, Drug Form: INJ, Continuous, Start date: 05/15/18 1:57:00 CDT, Duration: 30 day, Stop date: 06/14/18 1... Notes: Dose: Delay: Basal rate: 4hr limit:( Same as:Monsei-Kelly) Start Date: 05/15/18 Stop Date: 05/16/18 Status: Discontinued morphine 1 mg/ml [employer] (30 mg/30 mL) INJ Syringe 30 mg 30 mg, 30 mL, Route: IV, Initial Loading Dose: 2 mg, [employer] Dose: 1.5 mg, [employer] Lock out: 10 minutes, Continuous Basal Rate: 0 mg, 4 Hour Limit (In MG): 30, Drug For m: INJ, Continuous, Start date: 05/16/18 22:47:00 CDT, Duration: 30 day, Stop da te: ... Notes: Dose: Delay: Basal rate: 4hr limit:( Same as:Cristin-Kelly) Start Date: 05/16/18 Stop Date: 05/18/18 Status: Discontinued morphine Sulfate 8 mg, 2 mL, Route: IVP, Drug form: SOLN, ONCE, Dosing Weight 56.818, kg, PRN Ksenia n Score 7-10, Start date: 05/15/18 1:55:00 CDT Notes: (Same as:MORPhine Sulfate) Start Date: 05/15/18 Stop Date: 05/15/18 Status: Completed morphine Sulfate 4 mg, Route: IVP, ONCE, Dosing Weight 56.818, kg, Priority: STAT, Start date: 0:08:00 CDT, Stop date: 05/15/18 0:08:00 CDT Start Date: 05/15/18 Stop Date: 05/15/18 Status: Completed morphine Sulfate 6 mg, 1.5 mL, Route: IVP, Drug form: SOLN, ONCE, Dosing Weight 56.818, kg, Prior ity: STAT, Start date: 05/14/18 22:00:00 CDT, Stop date: 05/14/18 22:00:00 CDT Notes: (Same as:MORPhine Sulfate) Start Date: 05/14/18 Stop Date: 05/14/18 Status: Completed multivitamin with minerals Multiple Vitamins with Zinc oral capsule 2 cap, PO, Daily, # 60 cap, 0 Refill(s) Start Date: 05/16/18 Status: Ordered naloxone 0.04 mg, 0.1 mL, Route: IVP, Drug form: INJ, Q2MIN, Dosing Weight 56.818, kg, WV N Narcotic Reversal, Start date: 05/15/18 1:57:00 CDT, Duration: 30 day, Stop da te: 06/14/18 1:56:00 CDT Notes: Same as Narcan Start Date: 05/15/18 Stop Date: 05/18/18 Status: Discontinued normal saline inhalation solution 0.09 gm=10 mL, IVP, PRN, PRN Line Flush, 0 Refill(s) Start Date: 05/18/18 Stop Date: 05/24/18 Status: Discontinued normal saline inhalation solution 0.18 gm=20 mL, IV Central, PRN, PRN Line Flush, 0 Refill(s) Start Date: 05/18/18 Stop Date: 05/24/18 Status: Discontinued ondansetron 4 mg, 2 mL, Route: IVP, Drug form: INJ, ONCE, Dosing Weight 56.818, kg, Priority : STAT, Start date: 05/14/18 22:00:00 CDT, Stop date: 05/14/18 22:00:00 CDT Notes: (Same as: Juan) MEDICATION WASTE Product Size: 4 mgProduct Was kallie: ___ mg Start Date: 05/14/18 Stop Date: 05/14/18 Status: Completed ondansetron 4 mg, 2 mL, Route: IVP, Drug form: INJ, Q8H, Dosing Weight 56.818, kg, PRN Nause a & Vomiting, Start date: 05/15/18 1:57:00 CDT, Duration: 30 day, Stop date: 06/14/18 1:56:00 CDT Notes: (Same as: Juan) MEDICATION WASTE Product Size: 4 mgProduct Was kallie: ___ mg Start Date: 05/15/18 Stop Date: 05/18/18 Status: Discontinued ondansetron 2 mg/mL injectable solution 4 mg=2 mL, IVP, Q8H, PRN Nausea & Vomiting, 0 Refill(s) Start Date: 05/18/18 Stop Date: 05/24/18 Status: Discontinued pneumococcal 13-valent vaccine 0.5 mL, Route: IM, Drug Form: INJ, ONCALL, Start date: 05/15/18 3:16:42 CDT, Sto p date: 06/14/18 3:11:42 CDT Notes: Shake well prior to use (Same as: Johny 13) Start Date: 05/15/18 Stop Date: 05/18/18 Status: Discontinued polyethylene glycol 3350 oral powder for reconstitution 17 gm, PO, Daily, # 255 gm, 0 Refill(s), Pharmacy: [facility] [id number] Start Date: 05/18/18 Stop Date: 05/18/18 Status: Discontinued Proventil HFA 90 mcg/inh inhalation aerosol with adapter 2 puff, Route: INHALATION, Drug Form: AERO/A, Dosing Weight 65.966, kg, Q4H, Sta rt date: 05/15/18 12:00:00 CDT, Duration: 30 day, Stop date: 06/14/18 8:00:00 CD T Notes: Albuterol 90 microgram/inh 8gm HFAWASTE: Aerosol - Return to Pharmacy [facility] as: Maurice Proventil Start Date: 05/15/18 Stop Date: 05/18/18 Status: Discontinued Saline Flush 0.9% 10 mL, Route: IVP, Drug Form: INJ, Dosing Weight 56.818, kg, PRN, PRN Line Flush , Start date: 05/14/18 22:00:00 CDT, Duration: 30 day, Stop date: 06/13/18 21:59 :00 CDT Notes: (Same as: BD Posiflush) Start Date: 05/14/18 Stop Date: 05/15/18 Status: Discontinued Saline Flush 0.9% 10 ml, Route: IVP, Drug Form: INJ, Dosing Weight 56.818, kg, PRN, PRN Line Flush , Start date: 05/15/18 1:57:00 CDT, Duration: 30 day, Stop date: 06/14/18 1:56:0 0 CDT Notes: (Same as: BD Posiflush) Start Date: 05/15/18 Stop Date: 05/18/18 Status: Discontinued Saline Flush 0.9% 20 mL, Route: IV Central, Drug Form: INJ, Dosing Weight 56.818, kg, PRN, PRN Carla e Flush, Start date: 05/15/18 1:57:00 CDT, Duration: 30 day, Stop date: 06/14/18 1:56:00 CDT Notes: (Same as: BD Posiflush) Start Date: 05/15/18 Stop Date: 05/18/18 Status: Discontinued Sodium Chloride 0.9% (Bolus) IV 1,000 mL, 1000 ml/hr, Infuse Over: 1 hr, Route: IV, 1,000, Drug form: INJ, ONCE, Priority: STAT, Dosing Weight 56.818 kg, Start date: 05/14/18 22:00:00 CDT, Stop date: 05/14/18 22:00:00 CDT Start Date: 05/14/18 Stop Date: 05/14/18 Status: Completed Sodium Chloride 0.9% IV 1,000 mL 1,000 mL, Rate: 125 ml/hr, Infuse over: 8 hr, Route: IV, Dosing Weight 56.818 kg , Total Volume: 1,000, Start date: 05/15/18 1:57:00 CDT, Duration: 30 day, Stop date: 06/14/18 1:56:00 CDT, 1.59, m2 Start Date: 05/15/18 Stop Date: 05/16/18 Status: Discontinued vancomycin 1,000 mg, Route: IVPB, Drug form: INJ, ONCE, Dosing Weight 56.818, kg, Priority: STAT, Start date: 05/15/18 0:26:00 CDT, Stop date: 05/15/18 0:26:00 CDT, ABX In dication: Pneumonia Start Date: 05/15/18 Stop Date: 05/15/18 Status: Completed vancomycin + Dextrose 5% in Water IV 250 mL 1,000 mg, Route: IVPB, [id number], Dosing Weight 56.818, kg, Start date: 05/15/18 1 4:30:00 CDT, Duration: 7 day, Stop date: 05/22/18 4:30:00 CDT, ABX Indication: P neumonia Notes: TIME CRITICAL MEDICATION(Same As: Vancocin)Infusion rate< 1000 mg: infuse over 1 [id number] - 1500 mg: infuse over 1.5 [id number] - 2000 mg: infuse over 2 hours> 2001 mg: infuse over 2.5 hoursFor adult patients only: Round to nearest 250 mg per Medical Staff approval MEDICATION WASTE Product Size: 1000 mgProduct Wasted: ___ mg Start Date: 05/15/18 Stop Date: 05/17/18 Status: Discontinued vancomycin + Dextrose 5% in Water IV 250 mL 1,000 mg, Route: IVPB, [id number], Start date: 05/17/18 19:00:00 CDT, Duration: 5 da y, Stop date: 05/22/18 11:00:00 CDT, ABX Indication: Pneumonia Notes: TIME CRITICAL MEDICATION(Same As: Vancocin)Infusion rate< 1000 mg: infuse over 1 [id number] - 1500 mg: infuse over 1.5 [id number] - 2000 mg: infuse over 2 hours> 2001 mg: infuse over 2.5 hoursFor adult patients only: Round to nearest 250 mg per Medical Staff approval MEDICATION WASTE Product Size: 1000 mgProduct Wasted: ___ mg Start Date: 05/17/18 Stop Date: 05/17/18 Status: Discontinued vancomycin + Dextrose 5% in Water IV 250 mL 1,000 mg, Route: IVPB, [id number], Dosing Weight 56.818, kg, Start date: 05/15/18 2 :00:00 CDT, Duration: 7 day, Stop date: 05/22/18 1:00:00 CDT, ABX Indication: Pn eumonia Notes: TIME CRITICAL MEDICATION(Same As: Vancocin)Infusion rate< 1000 mg: infuse over 1 [id number] - 1500 mg: infuse over 1.5 [id number] - 2000 mg: infuse over 2 hours> 2001 mg: infuse over 2.5 hoursFor adult patients only: Round to nearest 250 mg per Medical Staff approval MEDICATION WASTE Product Size: 1000 mgProduct Wasted: ___ mg Start Date: 05/15/18 Stop Date: 05/15/18 Status: Discontinued Vancomycin Pharmacy Dosing 1 ea, Route: MISC, ONCALL, Dosing Weight 65.966, kg, Start date: 05/16/18 16:00: 00 CDT, Duration: 14 day, Stop date: 05/30/18 15:59:00 CDT, Pharmacy to dose, AB X Indication: Pneumonia Start Date: 05/16/18 Stop Date: 05/16/18 Status: Deleted Results BLOOD BANK RESULTS 1 2 3 Most recent to oldest [Reference Range]: O POS *Unknown* (05/14/18 10:30 PM) ABO/Rh Negative (05/14/18 10:30 PM) Antibody Scrn Product available 1 (05/15/18 9:16 PM) RBC product 1Result Comment: 05/16/2018 02:15 [id number] informed Mitchel Palmer 05/16/2018 02:15 MS ELECTROLYTES 1 2 3 Most recent to oldest [Reference Range]: 144 mEq/L (05/18/18 4:50 AM) 143 mEq/L (05/17/18 5:54 AM) 145 mEq/L (05/15/18 5:37 AM) Sodium Lvl [135-145 mEq/L] 3.7 mEq/L (05/18/18 4:50 AM) 3.6 mEq/L (05/17/18 5:54 AM) 4.0 mEq/L (05/15/18 5:37 AM) Potassium Lvl [3.5-5.1 mEq/L] 111 mEq/L *HI* (05/18/18 4:50 AM) 110 mEq/L *HI* (05/17/18 5:54 AM) 110 mEq/L *HI* (05/15/18 5:37 AM) Chloride Lvl [95-109 mEq/L] 29 mEq/L (05/18/18 4:50 AM) 27 mEq/L (05/17/18 5:54 AM) 24 mEq/L (05/15/18 5:37 AM) CO2 [24-32 mEq/L] 7.7 mEq/L *LOW* (05/18/18 4:50 AM) 9.6 mEq/L *LOW* (05/17/18 5:54 AM) 15.0 mEq/L (05/15/18 5:37 AM) AGAP [10.0-20.0 mEq/L] CHEM PANEL 1 2 3 Most recent to oldest [Reference Range]: 0.36 mg/dL *LOW* (05/18/18 4:50 AM) 0.38 mg/dL *LOW* (05/17/18 5:54 AM) 0.45 mg/dL *LOW* (05/15/18 5:37 AM) Creatinine Lvl [0.50-1.40 mg/dL] 178 mL/min/1.73m2 1 *NA* (05/18/18 4:50 AM) 175 mL/min/1.73m2 2 *NA* (05/17/18 5:54 AM) 166 mL/min/1.73m2 3 *NA* (05/15/18 5:37 AM) eGFR 4 mg/dL *LOW* (05/18/18 4:50 AM) 5 mg/dL *LOW* (05/17/18 5:54 AM) 7 mg/dL (05/15/18 5:37 AM) BUN [7-22 mg/dL] 11 (05/18/18 4:50 AM) 13 (05/17/18 5:54 AM) 16 (05/15/18 5:37 AM) B/C Ratio [6-25] 93 mg/dL (05/18/18 4:50 AM) 94 mg/dL (05/17/18 5:54 AM) 109 mg/dL *HI* (05/15/18 5:37 AM) Glucose Lvl [70-99 mg/dL] 5.8 g/dL *LOW* (05/18/18 4:50 AM) 6.2 g/dL *LOW* (05/17/18 5:54 AM) 6.5 g/dL (05/15/18 5:37 AM) Total Protein [6.4-8.4 g/dL] 3.0 g/dL *LOW* (05/18/18 4:50 AM) 3.2 g/dL *LOW* (05/17/18 5:54 AM) 4.2 g/dL (05/15/18 5:37 AM) Albumin Lvl [3.5-5.0 g/dL] 2.8 g/dL (05/18/18 4:50 AM) 3.0 g/dL (05/17/18 5:54 AM) 2.3 g/dL *LOW* (05/15/18 5:37 AM) Globulin [2.7-4.2 g/dL] 1.1 (05/18/18 4:50 AM) 1.1 (05/17/18 5:54 AM) 1.8 *HI* (05/15/18 5:37 AM) A/G Ratio [0.7-1.6] 8.2 mg/dL *LOW* (05/18/18 4:50 AM) 8.5 mg/dL (05/17/18 5:54 AM) 8.8 mg/dL (05/15/18 5:37 AM) Calcium Lvl [8.5-10.5 mg/dL] 24 unit/L (05/18/18 4:50 AM) 17 unit/L (05/17/18 5:54 AM) 21 unit/L (05/15/18 5:37 AM) ALT [0-65 unit/L] 27 unit/L (05/18/18 4:50 AM) 23 unit/L (05/17/18 5:54 AM) 40 unit/L *HI* (05/15/18 5:37 AM) AST [0-37 unit/L] 67 unit/L (05/18/18 4:50 AM) 59 unit/L (05/17/18 5:54 AM) 73 unit/L (05/15/18 5:37 AM) Alk Phos [39-136 unit/L] 391 unit/L *HI* (05/18/18 4:50 AM) 452 unit/L *HI* (05/17/18 5:54 AM) 451 unit/L *HI* (05/15/18 5:37 AM) LDH [98-192 unit/L] 0.7 mg/dL (05/18/18 4:50 AM) 1.0 mg/dL (05/17/18 5:54 AM) 1.3 mg/dL (05/15/18 5:37 AM) Bili Total [0.2-1.3 mg/dL] 1.0 mMol/L (05/15/18 12:47 AM) Lactic Acid Lvl [0.5-2.2 mMol/L] 0.06 ng/mL (05/16/18 4:47 PM) Procalcitonin Lvl [0.00-0.10 ng/mL] 1Result Comment: [...] be mul tiplied by the estimated BMI. TOXICOLOGY 1 2 3 Most recent to oldest [Reference Range]: 16:00 *NA* (05/17/18 3:59 PM) unknown *NA* (05/16/18 2:25 PM) Vanco Tr TND 3.4 ug/ml *NA* (05/17/18 3:59 PM) 3.3 ug/ml *NA* (05/16/18 2:25 PM) Vanco Tr URINE AND STOOL 1 2 3 Most recent to oldest [Reference Range]: Slight *ABN* (05/17/18 11:57 AM) UA Turbidity [Clear] Ltyellow *NA* (05/17/18 11:57 AM) UA Color 6.0 (05/17/18 11:57 AM) UA pH [5.0-8.0] 1.008 (05/17/18 11:57 AM) UA Spec Grav [<=1.030] Negative mg/dL *NA* (05/17/18 11:57 AM) UA Glucose [Negative mg/dL] Negative (05/17/18 11:57 AM) UA Blood [Negative] Negative mg/dL *NA* (05/17/18 11:57 AM) UA Ketones [Negative mg/dL] Negative mg/dL (05/17/18 11:57 AM) UA Protein [Negative mg/dL] <=1.0 mg/dL *NA* (05/17/18 11:57 AM) UA Urobilinogen [0.1-1.0 mg/dL] Negative *NA* (05/17/18 11:57 AM) UA Bili [Negative] Negative (05/17/18 11:57 AM) UA Leuk Est [Negative] Negative (05/17/18 11:57 AM) UA Nitrite [Negative] 1 /HPF (05/17/18 11:57 AM) UA WBC [0-5 /HPF] 1 /HPF (05/17/18 11:57 AM) UA RBC [0-2 /HPF] Occasional /HPF *NA* (05/17/18 11:57 AM) UA Bacteria [None Seen /HPF] Occasional /LPF *NA* (05/17/18 11:57 AM) UA Sq Epi [Few /LPF] HEMATOLOGY 1 2 3 Most recent to oldest [Reference Range]: 7.2 K/CMM (05/18/18 4:50 AM) 8.9 K/CMM (05/17/18 5:54 AM) 11.7 K/CMM *HI* (05/16/18 4:29 PM) WBC [3.7-10.4 K/CMM] 2.60 M/CMM *LOW* (05/18/18 4:50 AM) 3.00 M/CMM *LOW* (05/17/18 5:54 AM) 2.90 M/CMM *LOW* (05/16/18 4:29 PM) RBC [4.20-5.40 M/CMM] 6.8 g/dL 1 *CRIT* (05/18/18 4:10 PM) 6.0 g/dL 2 *CRIT* (05/18/18 4:50 AM) 7.0 g/dL 3 *CRIT* (05/17/18 5:54 AM) Hgb [12.0-16.0 g/dL] 21.2 % *LOW* (05/18/18 4:10 PM) 18.8 % *CRIT* (05/18/18 4:50 AM) 22.1 % *LOW* (05/17/18 5:54 AM) Hct [36.0-48.0 %] 72.4 fL *LOW* (05/18/18 4:50 AM) 73.9 fL *LOW* (05/17/18 5:54 AM) 74.0 fL *LOW* (05/16/18 4:29 PM) MCV [80.0-98.0 fL] 23.1 pg *LOW* (05/18/18 4:50 AM) 23.4 pg *LOW* (05/17/18 5:54 AM) 23.4 pg *LOW* (05/16/18 4:29 PM) MCH [27.0-31.0 pg] 31.8 g/dL *LOW* (05/18/18 4:50 AM) 31.7 g/dL *LOW* (05/17/18 5:54 AM) 31.6 g/dL *LOW* (05/16/18 4:29 PM) MCHC [32.0-36.0 g/dL] 17.3 % *HI* (05/18/18 4:50 AM) 17.8 % *HI* (05/17/18 5:54 AM) 18.0 % *HI* (05/16/18 4:29 PM) RDW [11.5-14.5 %] 8.6 fL (05/18/18 4:50 AM) 8.4 fL (05/17/18 5:54 AM) 8.3 fL (05/16/18 4:29 PM) MPV [7.4-10.4 fL] 161 K/CMM (05/18/18 4:50 AM) 186 K/CMM (05/17/18 5:54 AM) 172 K/CMM (05/16/18 4:29 PM) Platelet [133-450 K/CMM] 57.4 % (05/18/18 4:50 AM) 60.3 % (05/17/18 5:54 AM) 76.4 % *HI* (05/16/18 4:29 PM) Segs [45.0-75.0 %] 1.0 % (05/15/18 5:37 AM) Bands [0.0-11.0 %] 22.5 % (05/18/18 4:50 AM) 24.0 % (05/17/18 5:54 AM) 12.7 % *LOW* (05/16/18 4:29 PM) Lymphocytes [20.0-40.0 %] 0.0 % (05/15/18 5:37 AM) Atypical Lymphs [<=0.0 %] 14.2 % *HI* (05/18/18 4:50 AM) 11.2 % (05/17/18 5:54 AM) 8.9 % (05/16/18 4:29 PM) Monocytes [2.0-12.0 %] 5.5 % *HI* (05/18/18 4:50 AM) 4.0 % (05/17/18 5:54 AM) 1.5 % (05/16/18 4:29 PM) Eosinophils [0.0-4.0 %] 0.4 % (05/18/18 4:50 AM) 0.5 % (05/17/18 5:54 AM) 0.5 % (05/16/18 4:29 PM) Basophils [0.0-1.0 %] 4.1 K/CMM (05/18/18 4:50 AM) 5.4 K/CMM (05/17/18 5:54 AM) 8.9 K/CMM *HI* (05/16/18 4:29 PM) Neutrophils # [1.5-8.1 K/CMM] 1.6 K/CMM (05/18/18 4:50 AM) 2.1 K/CMM (05/17/18 5:54 AM) 1.5 K/CMM (05/16/18 4:29 PM) Lymphocytes # [1.0-5.5 K/CMM] 1.0 K/CMM *HI* (05/18/18 4:50 AM) 1.0 K/CMM *HI* (05/17/18 5:54 AM) 1.0 K/CMM *HI* (05/16/18 4:29 PM) Monocytes # [0.0-0.8 K/CMM] 0.4 K/CMM (05/18/18 4:50 AM) 0.4 K/CMM (05/17/18 5:54 AM) 0.2 K/CMM (05/16/18 4:29 PM) Eosinophils # [0.0-0.5 K/CMM] 0.1 K/CMM (05/16/18 4:29 PM) 0.1 K/CMM (05/14/18 10:28 PM) Basophils # [0.0-0.2 K/CMM] 6 /100WB *NA* (05/15/18 5:37 AM) NRBC Moderate *ABN* (05/15/18 5:37 AM) Moderate *ABN* (05/14/18 10:28 PM) Polychrom [None Seen] 1+ (05/14/18 10:28 PM) Hypochrom [None Seen] 1+ *ABN* (05/18/18 4:50 AM) 1+ *ABN* (05/17/18 5:54 AM) 1+ *ABN* (05/16/18 4:29 PM) Microcyte [None Seen] Moderate *ABN* (05/15/18 5:37 AM) Target Cell [None Seen] Moderate *ABN* (05/15/18 5:37 AM) Moderate *ABN* (05/14/18 10:28 PM) Tear Cell [None Seen] Moderate *ABN* (05/15/18 5:37 AM) Moderate *ABN* (05/14/18 10:28 PM) Sickle Cell [None Seen] Normal (05/15/18 5:37 AM) Plt Morph Moderate *ABN* (05/14/18 10:28 PM) Large Plt [None Seen] 6.8 % *HI* (05/18/18 4:50 AM) 10.5 % *HI* (05/17/18 5:54 AM) 9.3 % *HI* (05/17/18 5:54 AM) Retic Auto [0.5-1.5 %] 11.4 % *HI* (05/15/18 5:37 AM) Retic Manual [0.5-1.5 %] 1Result Comment: Critical Result(s) called to hetal at _ by05/18/2018 16:22 by alka. Read back OK. 2Result Comment: Critical Result(s) called to Анна Everett at _05/18/2018 05:49 mfb by_. Read back OK. 3Result Comment: Critical Result(s) called to NATASHA WAKEFIELD at 05/17/2018 07:13 byJB. Read back OK. BACTERIAL - SEROLOGY 1 2 3 Most recent to oldest [Reference Range]: Urine *NA* (05/17/18 11:57 AM) Source Strep Negative (05/17/18 11:57 AM) Strep pneumoniae Ag [Negative] Immunizations Not Given Vaccine Date Status [...] 05/18/18 Assessment and Plan Extracted from: Title: Clinical Document Author: Luca Castillo MD Date: 05/17/18 Progress Daily [facility] Completed: Apr, 18:51 by Luca Castillo MD RM: 225 - 1P, SE [id number] (: 1995) F Attending: Soto Nicolas MDPhone: Service: Internal Medicine Reason for Admission: SICKLE CELL PAIN CRISIS/PNEUMONIA Working DRG: Code status: None Specified=FULL CODECurrent diet: Isolation: No Isolation/Standard Precautions Allergies: Augmentin(hives) SUBJECTIVE still complains of pain not much better c/o SOB s/p prbc on 05/16 oxygen requirements stable OBJECTIVE VitalsTmp(F)[id number] 05/17 15:5698.20489/[id number]--- 05/17 11:3198.29145/[id number]--- 05/17 08:1698.54760/1261601--- 05/17 06:39 09142 2.0L/m 05/17 04:1598.73566/[id number]--- SKIN: Reveals no rashes. HEENT: Sclerae anicteric. Conjunctivae pink. NECK: Supple, no thyromegaly. LUNGS: Clear. HEART: Sounds regular. ABDOMEN: Soft and distended. EXTREMITIES: Trace pedal edema. LABORATORY DATA: 05/17 0554 Sodium Clu478 Potassium Lvl3.6 Chloride Whe058 H CO227 AGAP9.6 L Glucose Lvl94 Creatinine Lvl0.38 L BUN5 L B/C Ratio13 Total Protein6.2 L Albumin Lvl3.2 L Globulin3.0 A/G Ratio1.1 Calcium Lvl8.5 ALT17 AST23 Alk Phos59 Bili Total1.0 zVAA033 VVL328 H Retic Auto10.5 H WBC8.9 RBC3.00 L Hgb7.0 C Hct22.1 L MCV73.9 L MCH23.4 L MCHC31.7 L RDW17.8 H Rzfxwrcl404 MPV8.4 Retic Auto9.3 H Segs60.3 Srwluclpu98.2 Ybnonnkfjwh36.0 Eosinophils4.0 Basophils0.5 Segs-Bands #5.4 Lymphocytes #2.1 Monocytes #1.0 H Eosinophils #0.4 Microcyte1+ 05/16 1425 Retic Auto10.9 H IMPRESSION AND RECOMMENDATIONS: 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 1. Hemolytic crisis: --improving retic count and Hgb is improved --CBC daily and transfuse if Hgb < 6 --folic acid daily 2. Pneumonia: doubdt acute chest syndrome given the improvement in WBC and improvement in fever spike --continue cefipime and vanc- broad spectrum coverage --repeat CXR 3. Pain: --on [employer] morphine --ketorolac q6 hours Extracted from: Title: Clinical Document Author: Mike Nicolas MD Date: 05/16/18 INFECTIOUS DISEASES CONSULTATION NOTE Mike Nicolas M.D. Attending: Soto Nicolas MDPhone: Service: Internal Medicine Code status: None Specified=FULL CODE Reason for Admission: SICKLE CELL PAIN CRISIS/PNEUMONIA Working DRG: Isolation: No Isolation/Standard Precautions Consulting Physicians: Julianna Matson MDOffice: Service: Medicine, Neurology Dimitri Srinivasan MDOffice: Service: Infectious Disease Mike Nicolas MDOffice: Service: Infectious Disease Ayo Calderon MDOffice: Service: Medicine Luca Castillo MDOffice: Service: Oncology HPI: This is a 22-year-old female who has a known past medical history significant for sickle cell disease presented to [facility] again with the sickle cell crisis pain she was recently admitted to [facility] and was discharged from the hospital as per the patient she was then admitted at [facility] and got discharged from there on 05/09/2018 Pain in her all her infectious workup at that [facility] was negative she is again at [facility] with joints and her chest with temperature of 101.1 further blood work in the hospital showed a white count of 25.5 her lactic acid was 1.0 her LDH was 451. Urinalysis was not done. Diagnostic workup in the hospital in the form of chest x-ray showed basilar opacities similar to the prior exam. Blood cultures are done in the lab and pending respiratory cultures were sent out infectious diseases consultation was called to give recommendation. PAST MEDICAL HISTORY: Sickle cell crisis and sickle cell pain. SURGICAL HISTORY: No qualifying data available FAMILY HISTORY: Father: Heart attack Allergies (1) ActiveReaction Augmentinhives SOCIAL HISTORY: Alcohol Details: Never Tobacco Details: Use: Never smoker. Type: Cigarettes. Tobacco smoke exposure: None. Did the Patient Smoke Cigarettes Anytime During the Last 365 Days? No. Cessation Counseling Provided? No. Substance Abuse Details: Use: None. ROS: GENERAL: No appetite, energy or weight. Positive fever, chills HEENT: No auditory or visual complaints. No tinnitus. No pharyngeal complaints RESPIRATORY: Nocough, SOB. CARDIOVASCULAR: No chest pain or pressure. No palpitations GASTROINTESTINAL: No dysphagia, odynophagia, heartburn, diarrhea or constipation. No nausea or vomiting. MUSCULOSKELETAL: Positive myalgias arthralgias and joint pain repaying for NEUROLOGICAL: No vertigo or disturbance of balance or coordination.No motor or sensory complaints. No headache. GENITOURINARY: No dysuria, urgency or urinary frequency. No incontinence. MEDICATIONS: Scheduled Meds (7): 05/15/18 albuterol (Proventil HFA 90 mcg/inh inhalation aerosol with adapter) 2 puff INHALATION Q4H 05/15/18 cefepime + Sodium Chloride 0.9% IV 100 mL 2 gm IVPB ABXQ8H 25 ml/hr 05/15/18 folic acid 1 mg PO Daily 05/15/18 lactobacillus rhamnosus GG 1 cap PO BID 05/15/18 levETIRAcetam (Keppra 500 mg oral tablet) 500 mg PO BID 05/15/18 mirtazapine 30 mg PO Bedtime 05/15/18 vancomycin + Dextrose 5% in Water IV 250 mL 1,000 mg IVPB [id number] 250 ml/hr VITAL SIGNS: VitalsTmp(F)UpzzqERJRMtH4HOX9 05/16 11:10----7695/162174--- 05/16 08:0359.9089284/518363--- 05/16 07:26 73627 2.0L/m 05/15 22:5399.0341188/409378--- 05/15 20:62887.505082/751402--- 24 Hr Tmax: 101.1F (38.39c) at 05/15 20:41Vital Signs are the last 5 in the past 48 hours. PHYSICAL EXAMINATION: GENERAL: Well-developed, well-nourished in no apparent distress. SKIN: Warm and dry with good color. No rash. No tissue breakdown, bleeding or bruising. HEENT: Head is normocephalic and atraumatic. PERRLA, EOMI, NECK: Supple. No carotid bruits. No lymphadenopathy or thyromegaly. CHEST: Symmetrical with equal expansion. LUNGS: CTA HEART: RRR, no murmurs. . GASTROINTESTINAL: Bowel sounds are normal. Soft, NT, ND. No guarding or rebound tenderness. EXTREMITIES: No edema or varicosities. Pulses 2+ symmetric. NEUROLOGIC: Cranial nerves II through XII are grossly intact. LABS: Labs (Last four charted values) WBC H 25.5(MAY 15)H 16.6(MAY 14) Hgb C 6.3(MAY 15)L 7.7(MAY 14) Hct C 19.8(MAY 15)L 24.8(MAY 14) Plt 210(MAY 15)326(MAY 14) Na 145(MAY 15)140(MAY 14) K 4.0(MAY 15)4.0(MAY 14) CO2 24(MAY 15)30(MAY 14) Cl H 110(MAY 15)104(MAY 14) Cr L 0.45(MAY 15)0.57(MAY 14) BUN 7(MAY 15)7(MAY 14) Glucose Random H 109(MAY 15)77(MAY 14) Ca 8.8(MAY 15)9.3(MAY 14) CULTURES: DATE/SOURCE/RESULT/ SENSITIVITIES: IMAGING: ASSESMENT AND PLAN: 22-year-old female 1. Acute sickle cell crisis 2. Sickle cell disease 3. Leukocytosis secondary to sickle cell crisis 4. Concern for pneumonia RECOMMENDATIONS: As per infectious standpoint patient seen and evaluated to follow Hematology's recommendation. Pro calcitonin level will help us to determine whether this is pro calcitonin level continue her on broad-spectrum antibiotic as per pneumonia or not this point. For further management with urinalysis and urine culture will continue to follow. We will continue to follow. Thank you for providing me the opportunity to take care of this patient. Extracted from: Title: General Admission H&P * Author: Artem Cuello MD Date: 05/15/18 Impression and Plan Patient is a 22-year-old female history of sickle cell disease who presents with sickle cell pain crises. We will place patient on normal saline at 125 cc an hour We will place her on a [employer] morphine pump Will transfuse if hemoglobin is less than 6.0 2. Shortness of breath with bilateral interstitial infiltrate consistent with probable pneumonia on her chest x-ray will order a CT scan of her chest without IV contrast will place her on vancomycin and cefepime for antibiotic coverage We will also give her supplemental oxygen 3. Leukocytosis is secondary to pneumonia we will treat with IV antibiotics 4. Disposition patient will require stay greater than 2 midnights and therefore will need to be made inpatient status
--- OUTSIDE RECORDS SUMMARY | 2019-03-11 17:24 | XMS REPORT | Summary of Care ---
Author Author Hector Hernández M.A. Organization Unknown Address Unknown Phone Unavailable Care Team Providers Care Soil Science Technical Officer Name Role Phone Edgar Puri, Hector Unavailable Unavailable MARVIN Bauer, KELSEY Unavailable Unavailable BARB Bauer, EFFROSYNI Unavailable Unavailable ADAIR Bauer, DAGOBERTO Unavailable Unavailable ADAIR MEEKS DC, DAGOBERTO M Unavailable Unavailable [facility] DAMARI HOLDER Unavailable Unavailable Barb MEEKS, Effrosyni Unavailable Unavailable MARVIN MEEKS DC, KAROMAINE Unavailable Unavailable Unavailable Unavailable Functional Status Name Dates Details Functional status health issues are not documented Status: Name Dates Details Cognitive status health issues are not documented Status: Problems Name Dates Details Teeth problem (525.9, K08.9) Status: Active Allergic rhinitis (477.9, J30.9) Status: Active Confusion (298.9, R41.0) Status: Active Insurance coverage problems (V60.89, Z59.8) Status: Active Bone pain (733.90, M89.8X9) Status: Active Chest pain, non-cardiac (786.59, R07.89) Status: Active Sickle cell disease (282.60, 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 Inflammatory acne (706.1, L70.8) Status: Active History of medication noncompliance (V15.81, Z91.14) Status: Active NSAID long-term use (V58.64, Z79.1) Status: Active Psychosocial distress (V62.89, Z65.8) Status: Active Acne (706.1, L70.9) Status: Active Adjustment disorder (309.9, F43.20) Status: Active Social problem (V62.9, Z65.9) Status: Active Abdominal pain (789.00, R10.9) Status: Active Insomnia (780.52, G47.00) Status: Active 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10, A60.00) Status: Active Constipation due to opioid therapy (564.09, K59.03) Status: Active URI (upper respiratory infection) (465.9, J06.9) Status: Active Depression (311, F32.9) Status: Active Anxiety (300.00, F41.9) Status: Active Vitamin D deficiency (268.9, E55.9) Status: Active Insect bite (919.4, W57.XXXA) Status: Active Sickle cell disease, 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 Quantity: 30 APOSTOLIDKEEGAN Bauer EFFROSYNI Active Ondansetron HCl - 4 MG Oral Tablet TAKE 1 TABLET EVERY 8 HOURS PRN nausea * Quantity: 30 Refills: 3 DAGOBERTO BORRERO M.D. * Start : 06-Mar-2017 Active Ibuprofen 800 MG Oral Tablet TAKE 1 TABLET 3 TIMES DAILY WITH FOOD NEEDED. * Quantity: 60 Refills: 0 DAGOBERTO BORRERO M.D. * Start : 23-Jun-2017 Active Doxycycline Monohydrate 100 MG Oral Capsule TAKE 1 CAPSULE TWICE DAILY WITH MEALS. * Quantity: 14 Refills: 6 JODY MOBLEY M.D.ROSYNMorena * Start : 23-Jun-2017 Active Polyethylene Glycol 3350 Oral Packet MIX 1 PACKET IN 8 OUNCES OF LIQUID AND DRINK ONCE DAILY. * Quantity: 30 Refills: 6 ADAIR Bauer DAGOBERTO * Start : 27-Nov-2017 Active levETIRAcetam 500 MG Oral Tablet TAKE 1 TABLET TWICE DAILY. * Quantity: 60 Refills: 3 CARRIE MOBLEY M.D. Active hydrOXYzine HCl - 50 MG Oral Tablet TAKE 1 TABLET 3-4 TIMES DAILY. NEEDED FOR ANXIETY * Quantity: 60 Refills: 1 KELSEY WONG M.D. * Start : 11-Jan-2018 Active ALPRAZolam 1 MG Oral Tablet Take 1 tab daily as needed for anxiety * Quantity: 30 Refills: 1 KELSEY WONG M.D. * Start : 09-Apr-2018 Active traZODone HCl - 50 MG Oral Tablet TAKE 1 TABLET AT BEDTIME. * Quantity: 30 Refills: 2 KELSEY WONG M.D. * Start : 16-Jul-2018 Active Jadenu 360 MG Oral Tablet TAKE 2 TABLET DAILY * Quantity: 60 Refills: 3 JODY MOBLEY M.D.ROSYNMorena * Start : 25-Jul-2018 Active Morphine Sulfate 30 MG Oral Tablet take 30 mg IR every 4-6 hours as needed for pain * Quantity: 60 Refills: 0 JODY MOBLEY M.D.ROSYNI * Start : 19-Oct-2018 Active HYDROcodone-Acetaminophen 10-325 MG Oral Tablet TAKE 1 TABLET EVERY 4 TO 6 HOURS NEEDED FOR PAIN. * Quantity: 90 Refills: 0 JODY MOBLEY M.D.ROSYNI * Start : 11-Mar-2019 Active DULoxetine HCl - 20 MG Oral Capsule Delayed Release Particles take 1 cap daily x 7 days then twice daily * Quantity: 60 Refills: 2 KELSEY WONG M.D. * Start : 10-Jan-2019 Active Allergies and Adverse Reactions Name Dates Details Augmentin (Allergy) Status: Active cefuroxime (Allergy) Reaction: Diarrhea, Nausea Status: Active Dilaudid (Allergy) Status: Active Radioactive Dye (Allergy) Reaction: Anaphylaxis Status: Active Past Medical History Name Dates Details History of anxiety disorder (V11.8, Z86.59) Status: Resolved History of Asthma (493.90, J45.909) Status: Resolved History of diarrhea (V12.79, Z87.898) Status: Resolved History of migraine (V12.49, Z86.69) Status: Resolved History of Sinus arrhythmia (427.89, I49.8) Status: Resolved History of syncope (V15.89, Z87.898) Status: Resolved History of Well woman exam (V72.31, Z01.419) Status: Resolved Procedures Procedure Dates Details [H] Pap Liquid-based w/ GC/CT Reflex HPV Date: 04-Mar-2019 Immunization Name Dates Details Fluzone Quadrivalent 0.5 ML Intramuscular Suspension Prefilled Syringe Not Administered Prevnar 13 Intramuscular Suspension Not Administered Gardasil 9 Intramuscular Suspension Prefilled Syringe Not Administered Hepatitis B, adolescent (2 dose recombivax adult) on: 1996 Hepatitis B, adolescent (2 dose recombivax adult) on: 1996 ActHIB Intramuscular Solution Reconstituted on: 1996 DTaP on: 1996 IPV on: 1996 ActHIB Intramuscular Solution Reconstituted on: 07-Mar-1997 DTaP on: 07-Mar-1997 IPV on: 07-Mar-1997 Hepatitis B, pediatric/adolescent dosage on: 09-May-1997 ActHIB Intramuscular Solution Reconstituted on: 09-May-1997 DTaP on: 09-May-1997 IPV on: 09-May-1997 ActHIB Intramuscular Solution Reconstituted on: 21-Aug-1997 DTaP on: 21-Aug-1997 MMR on: 21-Aug-1997 Varicella on: 21-Aug-1997 DTaP on: 19-Feb-2001 IPV on: 19-Feb-2001 MMR on: 19-Feb-2001 Varivax 1350 PFU/0.5ML Subcutaneous Injectable Lot #: [id number] on: 02-Jun-2009 Meningo (Menactra) on: 02-Jun-2009 Tdap (Adacel) on: 02-Jun-2009 Gardasil 9 Intramuscular Suspension Prefilled Syringe on: 26-Jun-2014 Meningo (Menactra) on: 26-Jun-2014 hepatitis A vaccine, pediatric/adolescent dosage, 2 dose schedule on: 26-Jun-2014 Family History Name Dates Details Family history of Diabetes (250.00, E11.9) Status: Active Family history of High blood pressure (401.9, I10) Status: Active Name Dates Details Family history of sickle cell trait (V18.3, Z83.2) Status: Active Name Dates Details Family history of Heart disease (429.9, I51.9) Status: Active Family history of sickle cell trait (V18.3, Z83.2) Status: Active Name Dates Details Family history of sickle cell trait (V18.3, Z83.2) Status: Active Social History Name Dates Details - Status: Name Dates Details Never smoker Never smoker Vital Signs Date Test Result Details [id number] Physical Findings 24 Status: Comments: PHQ-9 Adult Depression Screening 38-Udo-[id number]:52 BP Systolic 110 mm[Hg] Status: Comments: Location: RUE; Position: Sitting BP Diastolic 66 mm[Hg] Status: Comments: Location: RUE; Position: Sitting Height 64 in Status: Weight 133.125 lb Status: Body Mass Index Calculated 22.85 kg/m2 Status: Body Surface Area Calculated 1.65 m2 Status: Temperature 98.6 f Status: Comments: Method: Oral Heart Rate 94 /min Status: Comments: Quality: Normal Respiration Rate 20 /min Status: Comments: Quality: Normal O2 SAT 97 % Status: Results Date Description Value Details 81-Gov-67677:00 . Alfredo - GC/Chlamydia Comments: Department of Pathology & Laboratory Medicine For: [id number] [place] [address] [id number] Phone: [phone] Email: [email or web address] LMP: VPMTrichomonas~NegativeGardnerella~PositiveCandida~NegativeThe Affirm VPIII Microbial Identification Test for Racheal species (C. albicans, C.glabrata, C. kefyr, C. krusei, C. parapsilosis, C. tropicalis) can detect 1 x 10(4) CFUof Racheal species in log phase per assay, 2 x 10(5) CFU of G. vaginalis in log phase perassay and 5 x 10(3) , and trichomonads (T. vaginalis) per assay. A negative test resultdoes not exclude the possibility of vaginitis/vaginosis. As in many clinical situations,diagnosis should not be based on the results of a single laboratory test. Results shouldbe interpreted in conjunction with other clinical and laboratory data available to theclinician such as pH, amine odor, clue cells and vaginal discharge characteristics.Simultaneous infections by more than one organism are common.Disclaimer:Testing is performed using FDA-approved Affirm HEAD OF PHYSICS III Microbial Identification system,i.e., nucleic acid hybridization. The assay has been validated/verified by the [facility] of the [place] Department of Pathology & Laboratory Medicine. The performance of this test on patient specimens collected during or immediately afterantimicrobial therapy is unknown. The presence or absence of Racheal species, G.vaginalis or T. vaginalis cannot be used as a test for therapeutic success or failure.Lacy Hoang MD, PhD GC/Chlamydia REPORT Plan of Care Name Dates Details Planned Observations Planned Goals not documented Planned Encounters Appointment; CARRIE MOBLEY M.D. On: 06-May-2019 14:40 Appointment; DAGOBERTO BORRERO M.D. On: 06-May-2019 15:45 Instructions Name Dates Details Instructions not documented Encounters Appointment; DAMARI CABRERA NP Encounter Diagnosis: Problem not documented On: 03-Apr-2017 9:40 Appointment; CARRIE MOBLEY M.D. Encounter Diagnosis: Problem not documented On: 03-Apr-2017 13:40 Appointment; KELSEY WONG M.D. Encounter Diagnosis: Problem not documented On: 03-Apr-2017 14:30 Appointment; DAMARI CABRERA NP Encounter Diagnosis: Problem not documented On: 02-May-2017 8:00 Appointment; DAMARI CABRERA NP Encounter Diagnosis: Problem not documented On: 17-May-2017 11:40 Appointment; CARRIE MOBLEY M.D. Encounter Diagnosis: Problem not documented On: 05-Jun-2017 14:40 Appointment; KELSEY WONG M.D. Encounter Diagnosis: Problem not documented On: 05-Jun-2017 15:00 Appointment; DAGOBERTO BORRERO M.D. Encounter Diagnosis: Problem not documented On: 23-Jun-2017 9:00 Appointment; CARRIE MOBLEY M.D. Encounter Diagnosis: Problem not documented On: 10-Jul-2017 15:00 Appointment; CARRIE MOBLEY M.D. Encounter Diagnosis: Problem not documented On: 07-Aug-2017 15:00 Appointment; DAGOBERTO BORRERO M.D. Encounter Diagnosis: Problem not documented On: 23-Aug-2017 10:00 Appointment; KELSEY WONG M.D. Encounter Diagnosis: Problem not documented On: 23-Aug-2017 11:00 Appointment; DAMARI CABRERA NP Encounter Diagnosis: Problem not documented On: 28-Aug-2017 9:40 Appointment; DAMARI CABRERA NP Encounter Diagnosis: Problem not documented On: 01-Sep-2017 14:20 Appointment; CARRIE MOBLEY M.D. Encounter Diagnosis: Problem not documented On: 04-Sep-2017 15:00 Appointment; DAMARI CABRERA NP Encounter Diagnosis: Problem not documented On: 25-Sep-2017 14:20 Appointment; CARRIE MOBLEY M.D. Encounter Diagnosis: Problem not documented On: 09-Oct-2017 13:40 Appointment; KELSEY WONG M.D. Encounter Diagnosis: Problem not documented On: 09-Oct-2017 15:00 Appointment; DAGOBERTO BORRERO M.D. Encounter Diagnosis: Problem not documented On: 27-Nov-2017 10:40 Appointment; CARRIE MOBLEY M.D. Encounter Diagnosis: Problem not documented On: 27-Nov-2017 13:40 Appointment; YUSUF DIAZ Encounter Diagnosis: Problem not documented On: 27-Nov-2017 14:00 Appointment; TAMMY, DENTAL Encounter Diagnosis: Problem not documented On: 27-Nov-2017 16:40 Appointment; CARRIE MOBLEY M.D. Encounter Diagnosis: Problem not documented On: 18-Dec-2017 15:20 Appointment; DAMARI CABRERA NP Encounter Diagnosis: Problem not documented On: 26-Dec-2017 10:00 Appointment; CARRIE MOBLEY M.D. Encounter Diagnosis: Problem not documented On: 08-Jan-2018 15:00 Appointment; KELSEY WONG M.D. Encounter Diagnosis: Problem not documented On: 11-Jan-2018 8:30 Appointment; DAMARI CABRERA NP Encounter Diagnosis: Problem not documented On: 11-Jan-2018 9:00 Appointment; DAMARI CABRERA NP Encounter Diagnosis: Problem not documented On: 09-Feb-2018 13:00 Appointment; SANDY CLEMENTE M.D. Encounter Diagnosis: Problem not documented On: 21-Feb-2018 15:00 Appointment; DAGOBERTO BORRERO M.D. Encounter Diagnosis: Problem not documented On: 12-Mar-2018 13:00 Appointment; KELSEY WONG M.D. Encounter Diagnosis: Problem not documented On: 12-Mar-2018 14:00 Appointment; DAGOBERTO BORRERO M.D. Encounter Diagnosis: Problem not documented On: 14-Mar-2018 8:20 Appointment; DAGOBERTO BORRERO M.D. Encounter Diagnosis: Problem not documented On: 16-Mar-2018 9:00 Appointment; DAGOBERTO BORRERO M.D. Encounter Diagnosis: Problem not documented On: 09-Apr-2018 10:40 Appointment; KELSEY WONG M.D. Encounter Diagnosis: Problem not documented On: 09-Apr-2018 14:00 Appointment; MISSY VIGIL LCSW Encounter Diagnosis: Problem not documented On: 09-Apr-2018 16:00 Appointment; CARRIE MOBLEY M.D. Encounter Diagnosis: Problem not documented On: 09-Apr-2018 16:20 Appointment; DAGOBERTO BORRERO M.D. Encounter Diagnosis: Problem not documented On: 17-May-2018 10:00 Appointment; DAGOBERTO BORRERO M.D. Encounter Diagnosis: Problem not documented On: 30-May-2018 11:45 Appointment; DAGOBERTO BORRERO M.D. Encounter Diagnosis: Problem not documented On: 12-Jun-2018 10:30 Appointment; DAGOBERTO BORRERO M.D. Encounter Diagnosis: Problem not documented On: 15-Jun-2018 13:00 Appointment; DAGOBERTO BORRERO M.D. Encounter Diagnosis: Problem not documented On: 16-Jul-2018 8:00 Appointment; KELSEY WONG M.D. Encounter Diagnosis: Problem not documented On: 16-Jul-2018 9:30 Appointment; MISSY VIGIL LCSW Encounter Diagnosis: Problem not documented On: 16-Jul-2018 10:00 Appointment; CARRIE MOBLEY M.D. Encounter Diagnosis: Problem not documented On: 16-Jul-2018 14:40 Appointment; DAMARI CABRERA NP Encounter Diagnosis: Problem not documented On: 25-Jul-2018 13:00 Appointment; CARRIE MOBLEY M.D. Encounter Diagnosis: Problem not documented On: 13-Aug-2018 16:00 Appointment; CARRIE MOBLEY M.D. Encounter Diagnosis: Problem not documented On: 17-Sep-2018 15:40 Appointment; CARRIE MOBLEY M.D. Encounter Diagnosis: Problem not documented On: 08-Oct-2018 13:40 Appointment; CARRIE MOBLEY M.D. Encounter Diagnosis: Problem not documented On: 08-Oct-2018 13:40 Appointment; DAGOBERTO BORRERO M.D. Encounter Diagnosis: Problem not documented On: 24-Dec-2018 11:30 Appointment; CARRIE MOBLEY M.D. Encounter Diagnosis: Problem not documented On: 24-Dec-2018 15:40 Appointment; DAGOBERTO BORRERO M.D. Encounter Diagnosis: Problem not documented On: 10-Jan-2019 11:45 Appointment; KELSEY WONG M.D. Encounter Diagnosis: Problem not documented On: 10-Jan-2019 13:00 Appointment; KELSEY WONG M.D. Encounter Diagnosis: Problem not documented On: 24-Jan-2019 10:00 Appointment; DAGOBERTO BORRERO M.D. Encounter Diagnosis: Problem not documented On: 24-Jan-2019 11:00 Appointment; DAGOBERTO BORRERO M.D. Encounter Diagnosis: Problem not documented On: 07-Feb-2019 14:00 Appointment; KELSEY WONG M.D. Encounter Diagnosis: Problem not documented On: 25-Feb-2019 15:00 Appointment; DAGOBERTO BORRERO M.D. Encounter Diagnosis: Problem not documented On: 04-Mar-2019 14:30 Appointment; CARRIE MOBLEY M.D. Encounter Diagnosis: Problem not documented On: 04-Mar-2019 15:20 Appointment; XIMENA LION M.D. Encounter Diagnosis: Problem not documented On: 06-Mar-2019 15:00
--- OUTSIDE RECORDS SUMMARY | 2019-03-11 17:24 | XMS REPORT ---
Author Author [facility] Address Unknown Phone Unavailable Care Team Providers Care Project Landscape Architect Name Role Phone SHAR BAY Unavailable Unavailable Problems This patient has no known problems. Allergies, Adverse Reactions, Alerts This patient has no known allergies or adverse reactions. Medications This patient has no known medications. Results Test Description Test Time Test Comments Text Results Atomic Results Result Comments CT CHEST WO 2019-02-26 16:11:00 [place] [address] Patient Name: TERE JACK MR #: [id number] : 1995 Age/Sex: 23/F Req #: [id number] [facility] Physician: SHAR BAY MD Ordered by: SHAR BAY MD Report #: [id number] Location: MED/SURG Room/Bed: [facility] Procedure: [id number] CT/CT CHEST WO Exam Date: 02/26/19 Exam Time: 1520 REPORT STATUS: Signed EXAM: CT Chest without contrast INDICATION: Rib pain. COMPARISON: None TECHNIQUE: Chest was scanned utilizing a multidetector helical scanner from the lung apex through the level of the adrenal glands without administration of IV contrast. Coronal and sagittal reformations were obtained. Routine protocol was performed. IV CONTRAST: 100 mL of Isovue 370. RADIATION DOSE: Total DLP: 408.3 mGy*cm Dose modulation, iterative reconstruction, and/or weight based adjustment of the mA/kV was utilized to reduce the radiation dose to as low as reasonably achievable. COMPLICATIONS: None FINDINGS: LINES/ TUBES: None. LUNGS AND AIRWAYS: Central airways are patent. Patchy groundglass and linear opacities dependently, most pronounced in the lower lobes and lingula. There is a small consolidative opacity in the left lower lobe with air bronchograms, as seen on series 3, image 61. PLEURA: The pleural spaces are clear. HEART AND MEDIASTINUM: The thyroid gland is norm al. No mediastinal, hilar or axillary lymphadenopathy. The heart is normal in size.. There is no pericardial effusion. UPPER ABDOMEN: Limited non-contrast views of the upper abdomen. There is cholelithiasis without CT evidence of cholecystitis. There are ill-defined linear calcifications within the splenic parenchyma and the periphery of the spleen. BONES/SOFT TISSUES: There is a Lucius log appearance of the vertebral bodies, consistent with history of sickle cell. There is diffuse osteopenia with heterogeneous bony appearance. No evidence of rib fracture. IMPRESSION: Patchy groundglass opacities with linear atelectasis in the dependent lower lungs. Small consolidative opacity within left lower lobe with air bronchograms. Findings may represent any combination of atelectasis, early acute chest syndrome and/or pneumonia. Calcifications within the spleen, which are likely secondary to sickle cell disease. Bony findings of sickle cell disease as above. Cholelithiasis without CT evidence of cholecystitis. Signed by: Dr. Omer Clarke MD on 02/26/2019 4:55 PM Dictated By: OMER CLARKE MD Transcribed By: SOMMER on 02/26/19 COPY TO: SHAR BAY MD ABDOMEN COMPLETE 2019-02-26 14:48:00 [place] [address] Patient Name: TERE JACK MR #: [id number] : 1995 Age/Sex: 23/F Req #: [id number] Adm Physician: SHAR BAY MD Ordered by: SHAR BAY MD Report #: [id number] Location: MED/SURG2 Room/Bed: 209 Procedure: [id number] US/US ABDOMEN COMPLETE Exam Date: Exam Time: REPORT STATUS: Signed EXAM: US ABDOMEN COMPLETE INDICATION: Abdominal pain. COMPARISON: None TECHNIQUE: Transverse and longitudinal harp scale and color doppler sonographic images of the abdomen were obtained. FINDINGS: LIVER 17.3 cm in the right midclavicular line. Increased echogenicity of the liver with normal contour, no masses. SPLEEN 12.4 cm in maximum diameter. There is a 3.2 cm hypoechoic lesion in the spleen. GALLBLADDER Decompressed. There is gallbladder sludge and gallstones. No gallbladder wall thickening, distension, or pericholecystic fluid. Positive reported sonographic Fraga's sign. BILE DUCTS No intra nor extra-hepatic biliary dilation. Common bile duct measures 0.4 cm PANCREAS: Visualized portions are normal. RIGHT KIDNEY: 13.5 cm Echogenicity: Normal Collecting System: No hydronephrosis Stones: None Cyst/Mass: None LEFT KIDNEY: 10.8 cm Echogenicity: Normal Collecting System: No hydronephrosis Stones: None Cyst/Mass: None VESSELS: Aorta: Visualized portions are within normal size limits Inferior Vena Cava: Visualized portions are normal Main Portal Vein: 1.0 cm, normal size with hepatopetal flow. FREE FLUID: None IMPRESSION: Gallbladder sludge and cholelithiasis without evidence of wall thickening, pericholecystic fluid or hyperemia. Despite the positive sonographic Fraga sign, the imaging findings are not suggestive of cholecystitis. Suggest correlation with clinical exam. Follow-up ultrasound may be considered. Hepatomegaly with hepatic steatosis. Indeterminate 3.2 cm hypoechoic lesion within the spleen. Spleen protocol MRI is suggested for further evaluation. Signed by: Dr. Omer Clarke MD on 02/26/2019 2:54 PM Dictated By: OMER CLARKE MD 53 Transcribed By: SOMMER on 02/26/19 145 COPY TO: SHAR BAY MD CHEST SINGLE (PORTABLE) 2019-02-24 05:59:00 [place] [address] Patient Name: TERE JACK MR #: [id number] : 1995 Age/Sex: 23/F Req #: [id number] Adm Physician: SHAR BAY MD Ordered by: YARELI BEAL MD Report #: [id number] Location: MED/SURG2 Room/Bed: [facility] Procedure: [id number] DX/CHEST SINGLE (PORTABLE) Exam Date: 02/24/19 Exam Time: 524 REPORT STATUS: Signed EXAMINATION: CHEST SINGLE (PORTABLE) I NDICATION: PNEMONIA [id number] Y COMPARISON: 02/23/2019 FINDINGS: AP view TUBES and LINES: None. LUNGS: Low lung volumes. Left lung base opacities. Also slightly increased medial right base opacities. PLEURA: No significant pleural effusion or pneumothorax. HEART AND MEDIASTINUM: The cardiac silhouette is enlarged on this AP view. BONES AND SOFT TISSUES: No acute osseous lesion. Soft tissues are unremarkable. UPPER ABDOMEN: No free air under the diaphragm. IMPRESSION: Not significantly changed or slightly increased left basilar opacities, representing acute chest syndrome and/or pneumonia. Also slightly increased medial right base opacities. Signed by: Dr. Stevan Hill MD on 02/24/2019 6:03 AM Dictated By: STEVAN HILL MD 2 Transcribed By: SOMMER on 02/24/19602 COPY TO: YARELI BEAL MD CHEST SINGLE (PORTABLE) 2019-02-23 12:04:00 [place] [address] Patient Name: TERE JACK MR #: [id number] : 1995 Age/Sex: 23/F Req #: [id number] Adm Physician: Ordered by: YARELI BEAL MD Report #: [id number] Location: ER Room/Bed: Procedure: [id number] DX/CHEST SINGLE (PORTABLE) Exam Date: 02/23/19 Exam Time: 1135 REPORT STATUS: Signed EXAMINATION: CHEST SINGLE (PORTABLE) I NDICATION: Sickle cell painful crisis COMPARISON: None FINDINGS: TUBES and LINES: None. LUNGS: Lungs are not well inflated. There are patchy opacities in the bilateral lower lungs, most confluent in the left lower lobe. No evidence of pulmonary edema. PLEURA: No pleural effusion or pneumothorax. HEART AND MEDIASTINUM: The cardiomediastinal silhouette is unremarkable. BONES AND SOFT TISSUES: No acute osseous abnormality. UPPER ABDOMEN: No free air under the diaphragm. IMPRESSION: Patchy bilateral lower lung consolidation suggestive of acute chest syndrome or pneumonia. Recommend follow-up chest radiograph to assess for resolution. Signed by: Dr. Omer Clarke MD on 02/23/2019 12:06 PM Dictated By: OMER CLARKE MD 1206 Transcribed By: SOMMER on 02/23/19 1206 COPY TO: YARELI BEAL MD
[2019-03-11] MEDS ORDERED: PROMETHAZINE 25MG/ NS 50ML (IV) IV ONE (17:30)
[2019-03-11 18:27] LABS: BASOPHILS # (AUTO) 0.1 (0.0-0.1); BASOPHILS % 0.9 % (0.0-1.0); EOSINOPHILS # (AUTO) 0.2 (0.0-0.4); EOSINOPHILS % 1.2 % (0.0-6.0); HEMOGLOBIN 7.8 g/dL (12.0-16.0); LYMPHOCYTES # (AUTO) 2.5 (1.0-3.2); LYMPHOCYTES % 20.6 % (18.0-39.1); MEAN CORPUSCULAR HEMOGLOBIN 22.8 pg (28-32); MEAN CORPUSCULAR HGB CONC 32.5 g/dL (31-35); MEAN CORPUSCULAR VOLUME 70.2 fL (81-99); MONOCYTES # (AUTO) 1.2 (0.2-0.8); MONOCYTES % 9.5 % (4.4-11.3); NEUTROPHILS # (AUTO) 8.3 (2.1-6.9); NEUTROPHILS % 67.4 % (38.7-80.0); PLATELET COUNT 342 x10e3/uL (140-360); RED BLOOD COUNT 3.42 x10e6/uL (3.6-5.1); RED CELL DISTRIBUTION WIDTH 17.4 % (11.7-14.4)
[2019-03-11] MEDS ORDERED: SODIUM CHLORIDE 0.9% 1000ML 1,000 ML ONE (18:28)
[2019-03-11] MEDS ORDERED: PANTOPRAZOLE 40 MG 10ML VIAL IV ONE (18:30)
[2019-03-11 18:36] LABS: ALANINE AMINOTRANSFERASE 10 IU/L (0-55); ALBUMIN 4.4 g/dL (3.5-5.0); ALBUMIN/GLOBULIN RATIO 1.7 (0.8-2.0); ALKALINE PHOSPHATASE 87 IU/L (40-150); AMYLASE 80 U/L (25-125); ANION GAP 11.7 mmol/L (8-16); BLOOD UREA NITROGEN < 5 mg/dL (7-26); CALCIUM 10.4 mg/dL (8.4-10.2); CARBON DIOXIDE 26 mmol/L (22-29); CHLORIDE 105 mmol/L (98-107); CREATININE, SERUM 0.59 mg/dL (0.57-1.11); EST GLOMERULAR FILTRATION RATE > 60 ML/MIN (60-); GLUCOSE 85 mg/dL (74-118); LIPASE 5 U/L (8-78); POTASSIUM 3.7 mmol/L (3.5-5.1); SODIUM 139 mmol/L (136-145)
[2019-03-11 18:37] LABS: BUN/CREATININE RATIO 8 (6-25)
[2019-03-11] MEDS ORDERED: MORPHINE SULFATE INJ 4 MG/ML INJ 1ML IV ONE (19:00)
[2019-03-11] MEDS ORDERED: SODIUM CHLORIDE 0.9% 250ML 250 ML IV ONE (19:00)
--- NOTE | 2019-03-11 19:15 | NUR ---
TYPE AND CROSS MATCH COMPLETE
[2019-03-11] MEDS ORDERED: SODIUM CHLORIDE 0.9% 1000ML 1,000 ML IV STA (19:38)
[2019-03-11] MEDS: SODIUM CHLORIDE 0.9% 1000ML 1,000 ML IV SCH ×2 (19:46→21:39)
--- NOTE | 2019-03-11 20:04 | Diagnostic Imaging Report ---
EXAMINATION: CHEST SINGLE (PORTABLE) INDICATION: Sickle cell crisis. COMPARISON: CT chest 02/26/2019. Chest x-ray 02/24/2019. FINDINGS: AP view TUBES and LINES: None. LUNGS: Lungs are not well inflated. There are bibasilar atelectasis. There is mild prominence of the central pulmonary vasculature, consistent with pulmonary venous congestion. PLEURA: No pleural effusion or pneumothorax. HEART AND MEDIASTINUM: The cardiomediastinal silhouette is unremarkable. BONES AND SOFT TISSUES: No acute osseous lesion. Hyperdense bones, consistent with sickle cell disease. Soft tissues are unremarkable. UPPER ABDOMEN: No free air under the diaphragm. IMPRESSION: Grossly unchanged Central pulmonary venous congestion, consistent with sickle cell crisis. Signed by: Dr. Jacky Aguirre M.D. on 03/11/2019 8:01 PM
[2019-03-11] MEDS ORDERED: MORPHINE SULFATE 2 MG/ML SYR 1ML IV PRN (21:30)
[2019-03-11] MEDS ORDERED: DEXTROSE 5%/0.45% SOD CHL 1,000 ML IV ONE (21:30)
[2019-03-11] MEDS ORDERED: MORPHINE SULFATE INJ 4 MG/ML INJ 1ML IV PRN (21:45)
[2019-03-11] MEDS ORDERED: IBUPROFEN 800MG/ 250ML 800 MG in SODIUM CHLORIDE 0.9% 250ML 250 ML IV PRN (21:45)
[2019-03-11] MEDS: ONDANSETRON HCL INJ 2MG/ML 2ML 2 MG/ML VIAL IV PRN (21:49)
--- OUTSIDE RECORDS SUMMARY | 2019-03-11 22:22 | XMS REPORT | Clinical Summary ---
Author Author [facility] Organization [facility] Address Unknown Phone Unavailable Care Team Providers Care Human Resources Officer Name Role Phone Suleiman Banuelos MD PCP [...] CELLS Routine 06/27/2018 5:30 PM CDT after 03/10/2018 Results * Transfuse RBC (06/27/2018 5:32 PM CDT) Only the most recent of 3 results within the time period is included. after 03/10/2018 Insurance Type Payer Benefit Subscriber ID Effective Phone Address Plan / Dates Group HMO/PPO [facility] xxxxxxxxx 2016-P THCARE resent CHOICE/CHO ICE + Advance Directives Patient has advance care planning documents on file. For more information, louie strauss contact: Andrew Ruiz [address] [place] [address]
--- NOTE | 2019-03-11 23:10 | NUR ---
ATTEMPTED 3 TIMES TO GET REPORT FROM ER
[2019-03-11 23:45] VITALS: BP 107/58
--- NOTE | 2019-03-11 23:45 | NUR ---
PATIENT RECEIVED. PATIENT IS AAOX3. RESP EVEN AND UNLABORED. ORIENTED PATIENT TO ROOM. IV FLUID INFUSING TO RIGHT AC IV. PATIENT C/O GENERALIZE PAIN, WILL MEDICATE PER MAR. CALL LIGHT WITHIN REACH. INSTRUCT FOR ASSISTANCE. BED LOW/LOCKED. CONTINUE TO MONITOR CLOSELY
[2019-03-12] VITALS (8 sets, daily range): BP systolic 97–112; BP diastolic 52–59
[2019-03-12 00:10] LABS: CREATINE KINASE 10 IU/L (29-168)
[2019-03-12] MEDS: PROMETHAZINE HCL 25 MG TAB PO PRN ×2 (00:40→12:35)
[2019-03-12] MEDS: MORPHINE SULFATE INJ 4 MG/ML INJ 1ML IV PRN ×5 (00:40→20:03)
[2019-03-12 01:00] LABS: CLARITY,URINE CLOUDY (CLEAR); COLOR,URINE YELLOW (YELLOW); KETONES,URINE NEGATIVE (NEGATIVE); LEUKOCYTE ESTERASE ,URINE 1+ (NEGATIVE); NITRITE,URINE NEGATIVE (NEGATIVE); PROTEIN,URINE DIPSTICK NEGATIVE (NEGATIVE); URINE UROBILINOGEN 0.2 mg/dL (0.2 - 1)
[2019-03-12 01:01] LABS: BILIRUBIN,URINE NEGATIVE (NEGATIVE)
[2019-03-12 01:11] LABS: BACTERIA,URINE FEW /HPF; EPITHELIAL CELLS,URINE FEW /LPF; RBC,URINE >50 /HPF (0-5)
[2019-03-12] MEDS: ONDANSETRON HCL INJ 2MG/ML 2ML 2 MG/ML VIAL IV PRN ×2 (05:44→09:10)
[2019-03-12 05:49] LABS: BASOPHILS # (AUTO) 0.1 (0.0-0.1); BASOPHILS % 0.8 % (0.0-1.0); EOSINOPHILS # (AUTO) 0.1 (0.0-0.4); EOSINOPHILS % 1.8 % (0.0-6.0); LYMPHOCYTES # (AUTO) 2.6 (1.0-3.2); MEAN CORPUSCULAR HEMOGLOBIN 22.6 pg (28-32); MEAN CORPUSCULAR HGB CONC 31.5 g/dL (31-35); MEAN CORPUSCULAR VOLUME 71.9 fL (81-99); MONOCYTES % 13.1 % (4.4-11.3); NEUTROPHILS # (AUTO) 3.9 (2.1-6.9); PLATELET COUNT 264 x10e3/uL (140-360); RED BLOOD COUNT 2.74 x10e6/uL (3.6-5.1); RED CELL DISTRIBUTION WIDTH 17.5 % (11.7-14.4)
[2019-03-12 06:04] LABS: HEMATOCRIT 19.7 % (34.2-44.1); HEMOGLOBIN 6.2 g/dL (12.0-16.0)
--- NOTE | 2019-03-12 06:05 | NUR ---
RECEIVED PATIENT CRITICAL LAB, HGB 6.2, HCT 19.7. NOTIFIED DR BAY. NEW ORDER RECEIVED TO GIVE 1 UNIT OF BLOOD AND CONSULT DR AVILEZ
[2019-03-12 06:08] LABS: CREATINE KINASE 15 IU/L (29-168)
[2019-03-12] MEDS ORDERED: SODIUM CHLORIDE 0.9% 250ML 250 ML IV ONE (06:15)
--- NOTE | 2019-03-12 06:15 | NUR ---
PAGED DR AVILEZ FOR CONSULTATION. AWAITING FOR MD TO CALL BACK
[2019-03-12 06:25] LABS: ALANINE AMINOTRANSFERASE 8 IU/L (0-55); ALBUMIN 3.3 g/dL (3.5-5.0); ALBUMIN/GLOBULIN RATIO 1.6 (0.8-2.0); ALKALINE PHOSPHATASE 70 IU/L (40-150); ANION GAP 6.8 mmol/L (8-16); BLOOD UREA NITROGEN 5 mg/dL (7-26); BUN/CREATININE RATIO 9 (6-25); CALCIUM 8.4 mg/dL (8.4-10.2); CARBON DIOXIDE 27 mmol/L (22-29); CHLORIDE 111 mmol/L (98-107); CREATININE, SERUM 0.56 mg/dL (0.57-1.11); EST GLOMERULAR FILTRATION RATE > 60 ML/MIN (60-); GLUCOSE 100 mg/dL (74-118); POTASSIUM 3.8 mmol/L (3.5-5.1); SODIUM 141 mmol/L (136-145)
--- NOTE | 2019-03-12 08:10 | NUR ---
Received patient and alert and responsive, no resp distress, VSS and medicated for pain, call light within reach and will monitor
--- NOTE | 2019-03-12 09:27 | NUR ---
Blood administration started at this time and tolerating well, verified with Second RN, no reaction noted
[2019-03-12] MEDS ORDERED: HYDROMORPHONE 2MG/ML 2 MG/ML ML IV PRN (10:45)
[2019-03-12] MEDS ORDERED: HYDROMORPHONE 1MG/1ML INJ IV PRN (10:45)
[2019-03-12] MEDS: SOD CHL 0.45%/POT CHL 20MEQ 1,000 ML IV SCH (11:55)
[2019-03-12] MEDS ORDERED: HYDROCODONE/APAP 10MG-325MG TAB PO PRN (12:45)
--- NOTE | 2019-03-12 12:48 | NUR ---
Patient completed blood transfusion and no reaction noted at this time. Medicated for pain and will monitor, IV fluids in place per orders from Dr. corbett and changed morphine to Dilaudid per his orders. Will monitor.
--- NOTE | 2019-03-12 12:53 | NUR ---
Patient alert and responsive, rounds by attending at this time
[2019-03-12] MEDS ORDERED: IBUPROFEN 800MG/ 250ML 250 ML IV PRN (13:00)
[2019-03-12] MEDS ORDERED: IBUPROFEN 800 MG/8 ML VIAL IV PRN (13:00)
[2019-03-12] MEDS ORDERED: ALPRAZOLAM 0.5 MG TAB PO PRN (13:00)
--- NOTE | 2019-03-12 13:59 | History and Physical ---
CHIEF COMPLAINT: Arm and back pain consistent with sickle cell crisis. HISTORY OF PRESENT ILLNESS: The patient is a 23-year-old with a history of sickle C disease. She follows with [facility] in [place]. She was recently hospitalized here several weeks ago with severe sickle cell crisis. She received pain medications and IV fluids, but now returns with worsening pain in her back and left arm. She notes that she started having her period as well, was concerned about her blood count. PAST MEDICAL AND SURGICAL HISTORY: 1. No prior surgery. 2. Sickle cell disease. SOCIAL HISTORY: The patient is not a smoker. She is not a drinker. She lives in [place] with her younger brother. FAMILY HISTORY: Family history is significant for sickle cell disease. REVIEW OF SYSTEMS: She has no fevers. She does note some headache. She is having some pain in her thoracic spine as well as in her left arm. She has no chest pain. She is not complaining of abdominal pain. There is no nausea or vomiting. PHYSICAL EXAMINATION: VITAL SIGNS: The patient is afebrile. The vital signs are stable. HEENT: Shows no facial swelling or erythema. The oropharynx is normal. LYMPHATIC: Shows no submandibular, cervical, or supraclavicular adenopathy. CARDIAC: Reveals regular rate and rhythm with normal S1 and S2. There are no murmurs or rubs heard. RESPIRATORY: Auscultation of lungs reveal clear breath sounds bilaterally. There is no wheezing. ABDOMEN: Soft and nontender. There is no rebound or guarding. EXTREMITIES: Show no leg edema or calf tenderness. There is no cyanosis or clubbing. SKIN: Shows no rashes. NEUROLOGICAL: Shows no focal abnormalities. RADIOGRAPHIC DATA: Chest x-ray shows some venous congestion, otherwise no active disease. LABORATORY DATA: Hemoglobin is 6.2, white blood cell count is 7.7, and platelet count is 264. The BUN to creatinine ratio is normal. Other electrolytes are within normal limits. IMPRESSION: 1. Sickle cell anemia with acute crisis. 2. Anemia secondary to acute blood loss. 3. Absence seizures. 4. Dehydration. PLAN: 1. The patient will receive 1 unit of packed red blood cells. 2. Continue Dilaudid as needed for pain control. 3. IV hydration. 4. Antiemetics as needed. 5. Hematology consultation. 6. Continue Keppra and current antiepileptic regimen. MD ALEXA Chua/[facility] /[id number]
[2019-03-12 14:31] LABS: CREATINE KINASE 14 IU/L (29-168)
--- NOTE | 2019-03-12 14:41 | NUR ---
Call to Dr. Chacon's office as patient requesting to switch her back to Morphine from Dilaudid
--- NOTE | 2019-03-12 14:45 | NUR ---
Call back from Dr. Delarosa and orders in place to switch Dilaudid to morphine and Phernegan orders in place IV
--- NOTE | 2019-03-12 15:05 | NUR ---
Visit made by the Spiritual Care Department Pastoral Visitor, Kalpana Lewis. PV provided pastoral presence, hospitality, and supportive listening. Pastoral Visitor informed pt/family of the scope of [employer] and availability. ESTHER DUBOIS Forestry Supervisor Spiritual Care Department O: [phone] Pager: [phone] ([phone] number calling from)
[2019-03-12] MEDS: GABAPENTIN 300 MG CAP PO SCH ×2 (15:21→20:03)
--- NOTE | 2019-03-12 16:24 | Consultation ---
DATE OF CONSULTATION: 03/12/2019 CONSULTING PHYSICIAN: Christiano Chavez MD, Hematology-Oncology Service. REASON FOR CONSULTATION: Evaluation and management of patient with sickle cell anemia. HISTORY OF PRESENT ILLNESS: Ms. Rangel is a very pleasant 23-year-old female with known history of sickle cell anemia, who usually follows up at [facility]. She presented with generalized pain and worsening anemia. She usually gets her sickle cell crisis once a month. Usually it coincides with natural period. Her baseline hemoglobin is around 8. She has not been taking hydroxyurea as she does not like it and thinks it is harmful. Now, Hematology-Oncology has been consulted to assist with the management. Presently, she is lying comfortably, however, in moderate distress due to the pain. She is breathing normally. She denies any nausea, vomiting, or fever. PAST MEDICAL HISTORY: 1. Sickle cell anemia. 2. Chronic pain syndrome. PAST SURGICAL HISTORY: No prior surgeries. SOCIAL HISTORY: Denies history of smoking, alcohol use, or illicit drug use. She lives in [place], [place]. FAMILY HISTORY: Positive for sickle cell disease. REVIEW OF SYSTEMS: A 14-point review of systems negative except as mentioned per history of presenting illness. ALLERGIES: PER ELECTRONIC MEDICAL RECORD. CURRENT MEDICATIONS: Reviewed, as per electronic medical record. PHYSICAL EXAMINATION: VITAL SIGNS: Reviewed, as per electronic medical record. HEENT: PERRLA. Extraocular movements are intact. Head is atraumatic and normocephalic. NECK: Supple. CVS: S1 and S2 audible. RESPIRATORY: Decreased bilateral air entry. ABDOMEN: Soft, positive bowel sounds. EXTREMITIES: Negative edema. NEURO: The patient is alert and awake. LABORATORY DATA: Reviewed, as per electronic medical record. ASSESSMENT AND PLAN: Ms. Rangel is a very pleasant 23-year-old young female with known history of sickle cell disease. She usually gets sickle cell crisis once a month and has a baseline hemoglobin around 8. She has been admitted due to sickle cell crisis. She has been complaining of severe body ache which is 8/10 in intensity, though after pain medication dropped down to 6/10 intensity. Now, Hematology-Oncology has been consulted to assist with the management. I have reviewed the records and discussed at length with the patient about her current disease and importance of outpatient followup. At this point, recommendation would be to closely monitor. She already was given 1 unit of PRBC transfusion. We will recheck hemoglobin and depending on the result, we will provide further recommendation. Meanwhile, continue IV hydration. We will check daily labs including CBC, LDH, bilirubin, and CMP. Chest x-ray has been done and grossly unchanged. We will closely monitor. Thank you for the consult. I will continue to be available. Please call with questions. MD JEFF Gillette/[facility] /[id number]
[2019-03-12] MEDS: LEVETIRACETAM 500 MG TAB PO SCH (17:11)
[2019-03-12] MEDS: DOCUSATE SODIUM 100 MG CAP PO SCH (17:11)
--- NOTE | 2019-03-12 19:24 | NUR ---
RECEIVED PATIENT AAOX4, RESTING IN BED, IN STABLE CONDITION. BED LOCKED AND IN LOWEST POSITION, CALL LIGHT WITHIN EASY REACH. WILL CONTINUE TO MONITOR THE PATIENT.
[2019-03-12] MEDS: PROMETHAZINE 25MG/ NS 50ML (IV) IV PRN (20:12)
[2019-03-13] VITALS: BP 102/59
[2019-03-13] MEDS: SOD CHL 0.45%/POT CHL 20MEQ 1,000 ML IV SCH ×3 (00:47→09:54)
[2019-03-13] MEDS: ONDANSETRON HCL INJ 2MG/ML 2ML 2 MG/ML VIAL IV PRN ×3 (00:55→14:15)
[2019-03-13] MEDS: MORPHINE SULFATE INJ 4 MG/ML INJ 1ML IV PRN ×3 (00:55→14:15)
--- NOTE | 2019-03-13 01:12 | NUR ---
iv to right FA infiltrated, removed with cath tip intact. new iv to right hand 22g placed. patient tolerated well, IVF infusing. bed locked and in lowest position, call light within easy reach.
[2019-03-13 04:00] VITALS: BP 99/65
[2019-03-13] MEDS: PROMETHAZINE 25MG/ NS 50ML (IV) IV PRN (06:05)
[2019-03-13 07:23] VITALS: BP 98/57
--- NOTE | 2019-03-13 07:33 | NUR ---
RECEIVED PATIENT AWAKE RESTING IN BED. NO SIGNS OF DISTRESS AT THIS TIME. BED LOW, WHEELS LOCKED, SIDE RAILS X2. CALL LIGHT IN REACH WILL CONTINUE TO MONITOR PATIENT.
--- NOTE | 2019-03-13 07:35 | NUR ---
LABORATORY REPORTED PATIENT REFUSED STAT LAB ORDERS.
[2019-03-13 08:48] LABS: BASOPHILS # (AUTO) 0.1 (0.0-0.1); BASOPHILS % 1.1 % (0.0-1.0); EOSINOPHILS # (AUTO) 0.2 (0.0-0.4); EOSINOPHILS % 2.4 % (0.0-6.0); HEMATOCRIT 24.8 % (34.2-44.1); LYMPHOCYTES % 24.5 % (18.0-39.1); MEAN CORPUSCULAR HEMOGLOBIN 23.1 pg (28-32); MEAN CORPUSCULAR HGB CONC 32.3 g/dL (31-35); MEAN CORPUSCULAR VOLUME 71.5 fL (81-99); MONOCYTES # (AUTO) 0.9 (0.2-0.8); MONOCYTES % 10.8 % (4.4-11.3); PLATELET COUNT 280 x10e3/uL (140-360); RED BLOOD COUNT 3.47 x10e6/uL (3.6-5.1); RED CELL DISTRIBUTION WIDTH 17.5 % (11.7-14.4); RETICULOCYTE % 6.6 % (0.8-2.2)
[2019-03-13] MEDS: LEVETIRACETAM 500 MG TAB PO SCH (08:53)
[2019-03-13] MEDS: GABAPENTIN 300 MG CAP PO SCH (08:53)
[2019-03-13] MEDS: DOCUSATE SODIUM 100 MG CAP PO SCH (08:53)
[2019-03-13] MEDS ORDERED: FOLIC ACID 1 MG TAB PO SCH (09:00)
[2019-03-13] MEDS ORDERED: MULTIVITAMINS/MINERALS TAB PO SCH (09:00)
[2019-03-13] MEDS ORDERED: POLYETHYLENE GLYCOL 3350 17 GM PACK PO SCH (09:00)
[2019-03-13] MEDS ORDERED: CHOLECALCIFEROL 1,000 UNIT TAB PO SCH (09:00)
[2019-03-13] MEDS ORDERED: PANTOPRAZOLE SOD 40 MG TABEC PO SCH (09:00)
--- NOTE | 2019-03-13 09:00 | NUR ---
LABORATORY ABLE TO DRAW AM LABS.
[2019-03-13 09:09] LABS: ALANINE AMINOTRANSFERASE 8 IU/L (0-55); ALBUMIN 3.6 g/dL (3.5-5.0); ALBUMIN/GLOBULIN RATIO 1.6 (0.8-2.0); ALKALINE PHOSPHATASE 77 IU/L (40-150); BLOOD UREA NITROGEN 5 mg/dL (7-26); BUN/CREATININE RATIO 9 (6-25); CALCIUM 8.9 mg/dL (8.4-10.2); CARBON DIOXIDE 25 mmol/L (22-29); CHLORIDE 109 mmol/L (98-107); CREATININE, SERUM 0.58 mg/dL (0.57-1.11); EST GLOMERULAR FILTRATION RATE > 60 ML/MIN (60-); GLUCOSE 93 mg/dL (74-118); SODIUM 140 mmol/L (136-145)
[2019-03-13] MEDS ORDERED: SODIUM CHLORIDE 0.9% 250ML 250 ML ONE (09:18)
[2019-03-13 10:10] VITALS: BP 98/57
--- NOTE | 2019-03-13 10:30 | NUR ---
PATIENT A/O X3, EVEN RESPIRATIONS UNLABORED. PATIENT AMBULATORY VOIDS IN TOILET. BOWEL SOUNDS ACTIVE, SKIN INTACT, NO EDEMA. RIGHT WRIST 22 GAUGE WITH IVF. PAIN MEDICATION NEEDED. VITAL SIGNS STABLE NO SIGNS OF DISTRESS. WILL CONTINUE TO MONITOR PATIENT.
[2019-03-13 11:49] VITALS: BP 109/63
--- NOTE | 2019-03-13 12:37 | NUR ---
SPOKE WITH DR. AVILEZ. PATIENT CLEARED FOR DISCHARGE. INSTRUCTIONS WILL BE GIVEN TO PATIENT.
--- NOTE | 2019-03-13 14:15 | NUR ---
REMOVED PATIENTS IV. CATHETER TIP INTACT AND PRESSURE DRESSING APPLIED.
--- NOTE | 2019-03-13 14:36 | NUR ---
PATIENT DISCHARGED FROM FACILITY. PATIENT GATHERED ALL PERSONAL BELONGINGS, DISCHARGE INSTRUCTIONS AND FOLLOW UP INFORMATION. PATIENT LEFT UNIT IN WHEELCHAIR AND WENT HOME VIA PRIVATE AUTO. NO SIGNS OF DISTRESS WHEN LEAVING FACILITY.
--- NOTE | 2019-03-13 19:10 | Progress Note ---
DATE: 03/13/2019 Followup Note CHIEF COMPLAINT: The patient with sickle cell anemia, admitted due to crisis. OBJECTIVE: Not been feeling good. She required 1 unit of PRBC transfusion. LABORATORY DATA: Reviewed. The patient is hemodynamically stable. If she gets discharged, we will follow up in outpatient setting. MD JEFF Gillette/[facility] /[id number]
--- NOTE | 2019-03-14 05:26 | Discharge Summary ---
DISCHARGE DIAGNOSES: 1. Sickle cell anemia with acute crisis. 2. Anemia secondary to acute blood loss. 3. Dehydration. 4. Absence seizures. CONSULTING PHYSICIAN: Dr. Chavez of Hematology and Oncology. RADIOGRAPHIC DATA: Chest x-ray shows some central pulmonary venous congestion. HISTORY OF PRESENT ILLNESS: The patient is a 23-year-old woman. She has a history of sickle C disease. She follows at the [facility] [place], [place]. She came in complaining of worsening pain in her back, arm. She also notes starting her period and was concerned about having a low blood count. HOSPITAL COURSE: The patient was admitted. She was started on IV hydration and pain medications for her sickle cell crisis. Her hemoglobin was 6.2 with the retic count of 7.7. She received 1 unit of packed red blood cells. Her hemoglobin increased to 8. She was also seen by Hematology. After day or two of treatment, she felt better. She was eager to go home. She will follow up with the sickle cell team at the [place], [place]. She will continue her prior home medications. DISPOSITION: Discharged home. FOLLOWUP: Follow up with [place] physicians. MD ALEXA Chua/[facility] /[id number]
== END 2019-03-13 14:36 | disposition home or self-care (01) ==
LOC: ER 17:11 → ERHOLD 22:19 → MED/SURG 23:43
PROVIDERS: ADMIT Internal Medicine Critical Care Medicine; ATTEND Internal Medicine Critical Care Medicine
DX: D57.00 Hb-SS disease with crisis, unspecified (principal); G40.A09 Absence epileptic syndrome, not intractable, without status epilepticus; M54.9 Dorsalgia, unspecified; F41.9 Anxiety disorder, unspecified; Z88.8 Allergy status to other drugs, medicaments and biological substances; Z88.1 Allergy status to other antibiotic agents; Z91.041 Radiographic dye allergy status; Z84.89 Family history of other specified conditions; D62 Acute posthemorrhagic anemia; E86.0 Dehydration
CPT/HCPCS: 36415 ×3; 36430; 71045; 80053 ×3; 81001; 82150; 82550 ×2; 82553 ×2; 83605; 83690; 84484 ×2; 84702; 85025 ×3; 85045 ×2; 86850; 86900; 86920; 87040; 87086; 96374; 96375; 96376; 99284; C9113; G0378 ×3; J1170; J2270 ×3; J2405 ×3; J2550 ×3; J7030; J7050 ×3; P9016; S0164

== ENCOUNTER 2019-03-19 00:03 | Emergency (ER) | payer OTHER ==
[~2019-03-19] VITALS: Ht 162.6 cm; Wt 59.0 kg
--- OUTSIDE RECORDS SUMMARY | 2019-03-19 00:06 | XMS REPORT | Clinical Summary ---
Author Author [facility] Organization [facility] Address Unknown Phone Unavailable Care Team Providers Care Acquisition Advisor Name Role Phone Suleiman Banuelos MD PCP [...] Date Last Done Comments CHLAMYDIA SCREENING 2012 INFLUENZA VACCINE 05/23/2019 Procedures Comments Procedure Name Priority Date/Time Associated Diagnosis TRANSFUSE RED BLOOD CELLS Routine 06/27/2018 5:32 PM CDT TRANSFUSE RED BLOOD CELLS Routine 06/27/2018 5:30 PM CDT TRANSFUSE RED BLOOD CELLS Routine 06/27/2018 5:30 PM CDT after 03/18/2018 Results * Transfuse RBC (06/27/2018 5:32 PM CDT) Only the most recent of 3 results within the time period is included. after 03/18/2018 Insurance Type Payer Benefit Subscriber ID Effective Phone Address Plan / Dates Group HMO/PPO [facility] xxxxxxxxx 2016-P THCARE resent CHOICE/CHO ICE + Advance Directives Patient has advance care planning documents on file. For more information, louie strauss contact: Andrew Ruiz [address] [place] [address]
[2019-03-19] MEDS ORDERED: SODIUM CHLORIDE 0.9% 1000ML 1,000 ML IV ONE (00:15)
[2019-03-19 00:31] LABS: BASOPHILS # (AUTO) 0.1 (0.0-0.1); EOSINOPHILS # (AUTO) 0.2 (0.0-0.4); EOSINOPHILS % 2.1 % (0.0-6.0); LYMPHOCYTES # (AUTO) 3.2 (1.0-3.2); LYMPHOCYTES % 27.9 % (18.0-39.1); MEAN CORPUSCULAR HEMOGLOBIN 22.9 pg (28-32); MEAN CORPUSCULAR VOLUME 71.4 fL (81-99); MONOCYTES # (AUTO) 1.2 (0.2-0.8); MONOCYTES % 10.2 % (4.4-11.3); NEUTROPHILS # (AUTO) 6.4 (2.1-6.9); PLATELET COUNT 240 x10e3/uL (140-360); RED CELL DISTRIBUTION WIDTH 19.1 % (11.7-14.4); RETICULOCYTE % 8.4 % (0.8-2.2)
[2019-03-19 00:47] LABS: ALANINE AMINOTRANSFERASE 15 IU/L (0-55); ALBUMIN 4.3 g/dL (3.5-5.0); ALBUMIN/GLOBULIN RATIO 1.9 (0.8-2.0); ALKALINE PHOSPHATASE 95 IU/L (40-150); ANION GAP 11.8 mmol/L (8-16); BILIRUBIN,URINE NEGATIVE (NEGATIVE); BLOOD UREA NITROGEN < 5 mg/dL (7-26); CALCIUM 9.5 mg/dL (8.4-10.2); CARBON DIOXIDE 24 mmol/L (22-29); CHLORIDE 107 mmol/L (98-107); CLARITY,URINE CLEAR (CLEAR); COLOR,URINE ORANGE (YELLOW); CREATININE, SERUM 0.57 mg/dL (0.57-1.11); EST GLOMERULAR FILTRATION RATE > 60 ML/MIN (60-); GLUCOSE 92 mg/dL (74-118); KETONES,URINE NEGATIVE (NEGATIVE); LEUKOCYTE ESTERASE ,URINE NEGATIVE (NEGATIVE); NITRITE,URINE NEGATIVE (NEGATIVE); POTASSIUM 3.8 mmol/L (3.5-5.1); PROTEIN,URINE DIPSTICK NEGATIVE (NEGATIVE); SODIUM 139 mmol/L (136-145); URINE UROBILINOGEN 0.2 mg/dL (0.2 - 1)
[2019-03-19 00:49] LABS: BUN/CREATININE RATIO 9 (6-25)
[2019-03-19 00:53] LABS: PREGNANCY TEST, URINE NEGATIVE (NEGATIVE)
[2019-03-19 00:56] LABS: AMPHETAMINES SCREEN,URINE NEGATIVE (NEGATIVE); BENZODIAZEPINES SCREEN,URINE NEGATIVE (NEGATIVE); PHENCYCLIDINE SCREEN,URINE NEGATIVE (NEGATIVE)
[2019-03-19 01:08] LABS: BACTERIA,URINE FEW /HPF; EPITHELIAL CELLS,URINE MODERATE /LPF; WBC,URINE (MAN) 0-5 /HPF (0-5)
--- NOTE | 2019-03-19 01:17 | Diagnostic Imaging Report ---
EXAMINATION: CHEST SINGLE (PORTABLE) COMPARISON: Chest x-ray 03/11/2019, CT chest 02/26/2019 INDICATION: Sickle cell crisis, shortness of breath ^sob ^[id number] ^0032 ^Y DISCUSSION: Frontal view of the chest obtained at 0035 hours. HEART AND MEDIASTINUM: The cardiomediastinal silhouette is unremarkable. LINES: None. LUNGS: Improved aeration of the lungs. Linear band of scarring or atelectasis in the lingula. Airspace opacities in the lung bases have improved. There is a residual airspace opacity in the base of the left lung that may represent residual findings of acute chest syndrome. This is in the same location as the airspace opacities identified on CT. No interstitial edema. PLEURA: No pleural effusion or pneumothorax. BONES AND SOFT TISSUES: Sclerotic foci in the humeral heads and H-shaped vertebral bodies are stable. Humeral heads are normal in morphology. The soft tissues are normal. IMPRESSION: Improved vascular congestion. Nodular opacity in the base of the left lung is likely the sequela of acute chest syndrome identified on CT. No new cardiopulmonary findings. Signed by: Dr. Keke Blanco MD on 03/19/2019 1:14 AM
--- NOTE | 2019-03-19 01:29 | NUR ---
DISPO COMPLETE, WHILE REMOVING IV'S, PT WAS ON PHONE FOR RIDE TO COME PICK HER UP, STATES TO PERSON ON PHONE THAT SHE WILL JUST GO TO HER USUAL HOSPITAL. AFTER PT HUNG UP, ASKED WHICH HOSPITAL SHE NORMALLY GOES TO AND SHE STATES "THAT'S CLASSIFIED INFORMATION." AFTER RECEIVING DC PAPERS, PT STATES SHE WANTS TO WAIT IN [place] ROOM FOR HER RIDE, PT AWAITING RIDE HOME
[2019-03-19 03:02] LABS: EOSINOPHILS % (MANUAL) 2 % (0-7); LYMPHOCYTES % (MANUAL) 28 % (19-48); METAMYELOCYTES % (MANUAL) 2 % (0-0); MONOCYTES % (MANUAL) 9 % (3.4-9.0); NEUTROPHILS % (MANUAL) 58 % (40-74); PROMYELOCYTES % (MANUAL) 1 % (0-0)
== END 2019-03-19 01:30 | disposition home or self-care (01) ==
LOC: ER 00:03
DX: D57.00 Hb-SS disease with crisis, unspecified (principal); G40.A09 Absence epileptic syndrome, not intractable, without status epilepticus; Z86.73 Personal history of transient ischemic attack (TIA), and cerebral infarction without residual deficits
CPT/HCPCS: 36415; 71045; 80053; 80307; 81001; 81025; 85025; 85045; 99283; J7030

== ENCOUNTER 2019-03-27 21:35 | Inpatient (IN) | payer OTHER ==
[~2019-03-27] VITALS: Ht 162.6 cm; Wt 64.4 kg
--- OUTSIDE RECORDS SUMMARY | 2019-03-27 21:40 | XMS REPORT | Clinical Summary ---
Author Author [facility]ales [employer] Organization [facility] Address Unknown Phone Unavailable Care Team Providers Care Camp Dishwasher Name Role Phone Suleiman Banuelos MD PCP [...] CELLS Routine 06/27/2018 5:30 PM CDT after 03/26/2018 Results * Transfuse RBC (06/27/2018 5:32 PM CDT) Only the most recent of 3 results within the time period is included. after 03/26/2018 Insurance Type Payer Benefit Subscriber ID Effective Phone Address Plan / Dates Group HMO/PPO [facility] xxxxxxxxx 2016-P THCARE resent CHOICE/CHO ICE + Advance Directives Patient has advance care planning documents on file. For more information, oluie strauss contact: Andrew Ruiz [address] [place] [address]
[2019-03-27] MEDS ORDERED: KETOROLAC TROMETHAMINE 30 MG/ML VIAL IV STA (22:02)
[2019-03-27] MEDS ORDERED: ACETAMINOPHEN 325 MG TAB PO ONE (22:15)
[2019-03-27] MEDS ORDERED: SODIUM CHLORIDE 0.9% 1000ML 1,000 ML IV ONE (22:15)
[2019-03-27] MEDS ORDERED: ONDANSETRON HCL INJ 2MG/ML 2ML 2 MG/ML VIAL IV STA (22:17)
--- NOTE | 2019-03-27 22:19 | NUR ---
PT GIVEN URINE CUP TO OBTAIN SAMPLE
[2019-03-27 22:24] LABS: BASOPHILS # (AUTO) 0.2 (0.0-0.1); BASOPHILS % 0.8 % (0.0-1.0); EOSINOPHILS % 0.1 % (0.0-6.0); HEMATOCRIT 27.1 % (34.2-44.1); HEMOGLOBIN 8.9 g/dL (12.0-16.0); LYMPHOCYTES # (AUTO) 1.3 (1.0-3.2); LYMPHOCYTES % 6.4 % (18.0-39.1); MEAN CORPUSCULAR HEMOGLOBIN 22.9 pg (28-32); MEAN CORPUSCULAR HGB CONC 32.8 g/dL (31-35); MEAN CORPUSCULAR VOLUME 69.7 fL (81-99); MONOCYTES # (AUTO) 1.7 (0.2-0.8); MONOCYTES % 8.4 % (4.4-11.3); NEUTROPHILS # (AUTO) 16.6 (2.1-6.9); NEUTROPHILS % 82.1 % (38.7-80.0); PLATELET COUNT 235 x10e3/uL (140-360); RED BLOOD COUNT 3.89 x10e6/uL (3.6-5.1); RED CELL DISTRIBUTION WIDTH 17.1 % (11.7-14.4); RETICULOCYTE % 6.3 % (0.8-2.2)
[2019-03-27 23:15] LABS: CREATINE KINASE 17 IU/L (29-168)
--- NOTE | 2019-03-27 23:24 | NUR ---
URINE SAMPLE OBTAINED AND SENT TO LAB FOR ANALYSIS PER MD ORDERS
[2019-03-27 23:26] LABS: BILIRUBIN,URINE NEGATIVE (NEGATIVE); CLARITY,URINE CLEAR (CLEAR); COLOR,URINE YELLOW (YELLOW); KETONES,URINE NEGATIVE (NEGATIVE); LEUKOCYTE ESTERASE ,URINE NEGATIVE (NEGATIVE); NITRITE,URINE NEGATIVE (NEGATIVE); PROTEIN,URINE DIPSTICK NEGATIVE (NEGATIVE); URINE UROBILINOGEN 0.2 mg/dL (0.2 - 1)
--- NOTE | 2019-03-27 23:29 | Diagnostic Imaging Report ---
EXAMINATION: CHEST SINGLE (PORTABLE) INDICATION: ^SOB ^Y COMPARISON: 03/19/2019 FINDINGS: AP view TUBES and LINES: None. LUNGS: Persistent left lower lung field/lingular opacification. PLEURA: No significant pleural effusion or pneumothorax. HEART AND MEDIASTINUM: The cardiac silhouette is prominent on this AP view. BONES AND SOFT TISSUES: No acute osseous lesion. Soft tissues are unremarkable. UPPER ABDOMEN: No free air under the diaphragm. IMPRESSION: Persistent left lower lung field/lingular focal opacification, representing atelectasis/scarring or pneumonia in the appropriate clinical context. Signed by: Dr. Stevan Pathak MD on 03/27/2019 11:26 PM
[2019-03-27 23:31] LABS: PREGNANCY TEST, URINE NEGATIVE (NEGATIVE)
[2019-03-27 23:39] LABS: BACTERIA,URINE MANY /HPF; EPITHELIAL CELLS,URINE FEW /LPF
[2019-03-27] MEDS: SODIUM CHLORIDE 0.9% 1000ML 1,000 ML IV SCH (23:45)
[2019-03-27] MEDS: CEFTRIAXONE SOD 1 GM/NS 50 ML 50 ML IV SCH (23:45)
[2019-03-27] MEDS: AZITHROMYCIN 500MG/NS 250 ML 250 ML IV SCH (23:45)
[2019-03-28 00:16] LABS: ALANINE AMINOTRANSFERASE 13 IU/L (0-55); ALBUMIN 4.7 g/dL (3.5-5.0); ALKALINE PHOSPHATASE 77 IU/L (40-150); ANION GAP 11.1 mmol/L (8-16); BLOOD UREA NITROGEN < 5 mg/dL (7-26); CALCIUM 9.4 mg/dL (8.4-10.2); CARBON DIOXIDE 23 mmol/L (22-29); CHLORIDE 107 mmol/L (98-107); CREATININE, SERUM 0.57 mg/dL (0.57-1.11); EST GLOMERULAR FILTRATION RATE > 60 ML/MIN (60-); GLUCOSE 118 mg/dL (74-118); POTASSIUM 3.1 mmol/L (3.5-5.1); SODIUM 138 mmol/L (136-145)
[2019-03-28 00:17] LABS: BUN/CREATININE RATIO 9 (6-25)
--- NOTE | 2019-03-28 00:27 | NUR ---
pt states feels much better, pain 5/10, awake alert skin w/d resp nonlab, nad noted. resting in poc
[2019-03-28] MEDS ORDERED: POTASSIUM CHLORIDE 20 MEQ TAB CR PO STA (00:29)
[2019-03-28] MEDS ORDERED: POTASSIUM CHLORIDE 20MEQ/15ML UDC PO STA (00:33)
[2019-03-28] MEDS ORDERED: POTASSIUM CHLORIDE 20MEQ/15ML UDC ONE (00:35)
[2019-03-28] MEDS ORDERED: ACETAMINOPHEN 325 MG TAB PO PRN (00:45)
--- OUTSIDE RECORDS SUMMARY | 2019-03-28 00:50 | XMS REPORT | Clinical Summary ---
Author Author [facility] Organization [facility] Address Unknown Phone Unavailable Care Team Providers Care Management Scientist Name Role Phone Suleiman Banuelos MD PCP [...] CELLS Routine 06/27/2018 5:30 PM CDT after 03/27/2018 Results * Transfuse RBC (06/27/2018 5:32 PM CDT) Only the most recent of 3 results within the time period is included. after 03/27/2018 Insurance Type Payer Benefit Subscriber ID Effective Phone Address Plan / Dates Group HMO/PPO [facility] xxxxxxxxx 2016-P THCARE resent CHOICE/CHO ICE + Advance Directives Patient has advance care planning documents on file. For more information, louie strauss contact: Andrew Ruiz [address] [place] [address]
[2019-03-28] MEDS: HYDROMORPHONE 2MG/ML 2 MG/ML ML IV PRN ×8 (03:47→23:15)
[2019-03-28] MEDS: ONDANSETRON HCL INJ 2MG/ML 2ML 2 MG/ML VIAL IV PRN ×2 (03:47→09:28)
--- NOTE | 2019-03-28 03:47 | NUR ---
PT PRESSED CALL ROWE REQUESTING PAIN MEDICATIONS. INITIALLY STATES SHE DOES NOT WANT TO TAKE DILAUDID, WOULD LIKE SOMETHING LESS STRONG, ADVISED COULD SPEAK TO ERP AND REQUEST CHANGE OF MEDICATION, THEN PT STATES SHE WOULD LIKE TO TAKE 0.5MG OF DILAUDID, INFORMED WE COULD GIVE HER 0.5MG OF DILAUDID, BUT SHE WOULD NOT RECEIVE ADDITIONAL PAIN MEDS UNTIL 4 HOURS OR I COULD HAVE ERP CHANGE ORDER TO 0.5MG OF DILAUDID. PT THEN ASKED ME WHAT I THOUGHT SHE SHOULD DO. ADVISED HER I WOULD SPEAK TO ERP AND ASK HIM WHATEVER SHE IS REQUESTING. THEN PT STATES SHE WILL TAKE 1MG DILAUDID AND ZOFRAN. WHILE ADMINISTERING MEDICATION, PT STATES NEXT TIME SHE WANTS THE MEDS DRAWN UP IN SEPARATE SYRINGES, WHEN ASKED WHY, SHE STATES SHE DOESN'T LIKE THE MEDICATIONS MIXED, THEN ASKED WHAT ABOUT THE MEDICATIONS BEING MIXED IN THE SAME SYRINGE SHE DOESN'T LIKE, SHE STATES SHE JUST DOESN'T WANT TO HAVE ANY CHEMICALS MIXED TOGETHER GOING INTO HER BODY.
--- NOTE | 2019-03-28 05:47 | NUR ---
PT REQUESTING ADDITIONAL PAIN MEDICATIONS AT THIS TIME, ADVISED PT ORDER IS FOR EVERY 4 HOURS, VERBALIZED UNDERSTANDING. AWAKE ALERT SKIN W/D RESP NONLAB, NAD NOTED. VSS.
[2019-03-28] MEDS ORDERED: HYDROCODON-ACE1 EAC9 PO (05:51)
--- NOTE | 2019-03-28 06:53 | NUR ---
REPORT TO TWYLA GUARDADO
[2019-03-28 07:17] LABS: CREATINE KINASE 12 IU/L (29-168)
[2019-03-28] MEDS: SODIUM CHLORIDE 0.9% 1000ML 1,000 ML IV SCH ×3 (07:25→21:18)
--- NOTE | 2019-03-28 07:59 | NUR ---
COMPLETED MEDICAL AND SURGICAL TRIAGE
--- NOTE | 2019-03-28 08:30 | NUR ---
PATIENT ABLE TO GET UP AND SIT IN CHAIR. PATIENT PLACED ON WAFFLE. TOOK OFF HER SHOES AND PLACED NON-SKID SOCKS ON. GIVEN WARM BLANKETS. STATES PAIN MEDICATION NOT WORKING AND IT USUALLY ALWAYS WORKS. ONLY DRANK FLUIDS DID NOT EAT EGGS AND PANCAKES.
--- NOTE | 2019-03-28 08:43 | NUR ---
PATIENT REQUESTING INCREASE IN PAIN MEDICATION. DR. WONG NOTIFIED. TOLD DR. HUTTON WILL BE COVERING FOR HIM
[2019-03-28] MEDS ORDERED: HYDROMORPHONE 1MG/1ML INJ IV PRN (09:00)
--- NOTE | 2019-03-28 09:01 | NUR ---
SPOKE WITH Faisal HUTTON. HE ORDERED DILAUDED 1MG IV Q2 PRN ALSO WANTS RAILROAD SHOP INSPECTOR ON HER CASE AND WILL CALL BACK LATER WITH THE ORDER OF WHO HE WANTS
--- NOTE | 2019-03-28 09:20 | NUR ---
PATIENT UPSET WHEN I WAS GIVING PAIN MEDICATION IN LAST PORT CLOSEST TO HER WHERE SALINE IS INFUSING.SHE REQUESTED I GIVE IT TO HER THROUGH THE OTHER IV PORT AND WITHOUT BEING MIXED WITH ANY SALINE. AFTER I GAVE PAIN MEDICATION UNDILUTED, THEN SHE REQUESTED I FLUSH THAT PORT WITH SALINE. ACCOMODATED PATIENT REQUEST. WITH INCREASE IN PAIN MEDICATION SCHEDULE I LET PATIENT KNOW I WOULD NEED TO PUT HER ON CONTINUOUS SCRIP CLERK TO WATCH HER VITAL SIGNS. SHE COMPLIED. PATIENT AWARE SHE CAN NOW HAVE DILAUDID 1 MG EVERY 2 HOURS. NOW SHE IS REQUESTING FOR AN ALTERNATE MEDICATION IF THIS DOES NOT WORK. SPOKE WITH HER AND SAID THAT WE CAN SPEAK WITH YOUR DOCTOR WHEN HE ARRIVES AND EVALUTATES YOU AND GET HER ON A PAIN REGIMEN. SHE IS ALSO REQUESTING NAUSEA MEDICATION AT THIS TIME
[2019-03-28 10:19] VITALS: BP 121/56
--- NOTE | 2019-03-28 10:45 | NUR ---
Patient received and alert and responsive, no resp distress, VSS and patient on the phone while entering the room. IV line to LFA, IV running at ordered rate, call light within reach, will monitor.
[2019-03-28 10:57] VITALS: BP 121/56
--- NOTE | 2019-03-28 11:23 | NUR ---
Spoke with HANG Landis for attending and consult in place for Dr. Raman and has been called for Sickle cell and pain management.
--- NOTE | 2019-03-28 11:41 | NUR ---
Patient alert and responsive, provided with warm blankets and call light within reach.
--- NOTE | 2019-03-28 13:00 | NUR ---
Called and spoke with Dr. Chavez about consult and patient's pain. States will be coming to see and assess patient.
[2019-03-28 14:23] LABS: CREATINE KINASE 10 IU/L (29-168)
[2019-03-28] MEDS ORDERED: HYDRALAZINE HCL 20 MG/ML VIAL IV PRN (16:30)
[2019-03-28] MEDS ORDERED: POLYETHYLENE GLYCOL 3350 17 GM PACK PO PRN (16:30)
--- NOTE | 2019-03-28 16:54 | NUR ---
Call to Dr. Chavez's service regarding sickle cell pain, spoke with answering service and waiting for call back
[2019-03-28] MEDS: DOCUSATE SODIUM 100 MG CAP PO SCH (17:04)
[2019-03-28] MEDS: FAMOTIDINE 20 MG TAB PO SCH (17:04)
[2019-03-28 17:18] VITALS: BP 103/64
[2019-03-28 18:33] LABS: HEMOGLOBIN 7.2 g/dL (12.0-16.0); MEAN CORPUSCULAR HEMOGLOBIN 22.9 pg (28-32); MEAN CORPUSCULAR HGB CONC 32.7 g/dL (31-35); MEAN CORPUSCULAR VOLUME 69.8 fL (81-99); PLATELET COUNT 174 x10e3/uL (140-360); RED BLOOD COUNT 3.15 x10e6/uL (3.6-5.1); RED CELL DISTRIBUTION WIDTH 16.4 % (11.7-14.4)
[2019-03-28] MEDS ORDERED: HYDROMORPHONE 1MG/1ML INJ IV STA (18:35)
--- NOTE | 2019-03-28 18:37 | NUR ---
Spoke with Dr. Chavez and orders to give a one time dose of Dilaudid 1mg now and change current dose to 1.5mg PRN Q3 house and d/c previous dose. Will be coming in late to see patient.
[2019-03-28] MEDS ORDERED: HYDROMORPHONE 2MG/ML 2 MG/ML ML IV ONE (18:45)
[2019-03-28] MEDS ORDERED: HYDROMORPHONE 2MG/ML 2 MG/ML ML IV PRN (18:45)
[2019-03-28 18:52] LABS: ANION GAP 8.3 mmol/L (8-16); BLOOD UREA NITROGEN < 5 mg/dL (7-26); CALCIUM 8.4 mg/dL (8.4-10.2); CARBON DIOXIDE 22 mmol/L (22-29); CHLORIDE 109 mmol/L (98-107); CREATININE, SERUM 0.44 mg/dL (0.57-1.11); EST GLOMERULAR FILTRATION RATE > 60 ML/MIN (60-); GLUCOSE 99 mg/dL (74-118); POTASSIUM 3.3 mmol/L (3.5-5.1); SODIUM 136 mmol/L (136-145)
[2019-03-28 18:54] LABS: ALBUMIN 3.6 g/dL (3.5-5.0); BILIRUBIN,DIRECT 0.6 mg/dL (0.0-0.5)
--- NOTE | 2019-03-28 19:11 | NUR ---
Called lap for assistance to enter order for Hgb electrophoresis and do not have that in system and they will report to licensed retail supervisor to review tomorrow. Spoke with Temi
[2019-03-28 19:12] LABS: BUN/CREATININE RATIO 11 (6-25)
[2019-03-28] MEDS: ALBUTEROL/IPRATROPIUM 3 ML NEB NEB SCH ×2 (19:30→23:10)
[2019-03-28 20:00] VITALS: BP 115/66
[2019-03-28 21:03] LABS: EOSINOPHILS % (MANUAL) 1 % (0-7); LYMPHOCYTES % (MANUAL) 13 % (19-48); NEUTROPHILS % (MANUAL) 76 % (40-74)
[2019-03-28 21:04] LABS: MONOCYTES % (MANUAL) 10 % (3.4-9.0); NUCLEATED RED BLOOD CELLS 1
[2019-03-28 21:05] LABS: PLATELET ESTIMATE ADEQUATE; PLATELET MORPHOLOGY COMMENT NORMAL; POLYCHROMASIA FEW; TARGET CELLS MODERATE
[2019-03-28 21:06] LABS: RBC MORPHOLOGY COMMENT ABNORMAL; SCHISTOCYTES FEW; STOMATOCYTES SLIGHT
[2019-03-28] MEDS: CEFTRIAXONE SOD 1 GM/NS 50 ML 50 ML IV SCH (23:21)
[2019-03-28] MEDS: AZITHROMYCIN 500MG/NS 250 ML 250 ML IV SCH (23:55)
[2019-03-29] VITALS (7 sets, daily range): BP systolic 105–129; BP diastolic 55–71
[2019-03-29] MEDS: HYDROMORPHONE 2MG/ML 2 MG/ML ML IV PRN ×7 (02:15→22:33)
[2019-03-29] MEDS: ALBUTEROL/IPRATROPIUM 3 ML NEB NEB SCH ×6 (02:45→22:30)
[2019-03-29] MEDS: SODIUM CHLORIDE 0.9% 1000ML 1,000 ML IV SCH ×4 (02:59→18:05)
[2019-03-29] MEDS: ONDANSETRON HCL INJ 2MG/ML 2ML 2 MG/ML VIAL IV PRN ×2 (05:15→21:16)
[2019-03-29 05:20] LABS: BASOPHILS # (AUTO) 0.1 (0.0-0.1); BASOPHILS % 0.6 % (0.0-1.0); EOSINOPHILS # (AUTO) 0.1 (0.0-0.4); EOSINOPHILS % 1.3 % (0.0-6.0); HEMATOCRIT 23.8 % (34.2-44.1); HEMOGLOBIN 7.8 g/dL (12.0-16.0); LYMPHOCYTES # (AUTO) 2.1 (1.0-3.2); LYMPHOCYTES % 19.2 % (18.0-39.1); MEAN CORPUSCULAR HEMOGLOBIN 22.9 pg (28-32); MEAN CORPUSCULAR HGB CONC 32.8 g/dL (31-35); MONOCYTES # (AUTO) 1.2 (0.2-0.8); MONOCYTES % 11.3 % (4.4-11.3); NEUTROPHILS # (AUTO) 7.3 (2.1-6.9); NEUTROPHILS % 67.1 % (38.7-80.0); PLATELET COUNT 191 x10e3/uL (140-360); RED CELL DISTRIBUTION WIDTH 16.2 % (11.7-14.4)
[2019-03-29 05:38] LABS: ALANINE AMINOTRANSFERASE 12 IU/L (0-55); ALBUMIN 3.9 g/dL (3.5-5.0); ALBUMIN/GLOBULIN RATIO 1.7 (0.8-2.0); ALKALINE PHOSPHATASE 59 IU/L (40-150); ANION GAP 10.5 mmol/L (8-16); BLOOD UREA NITROGEN < 5 mg/dL (7-26); CARBON DIOXIDE 24 mmol/L (22-29); CHLORIDE 110 mmol/L (98-107); CREATININE, SERUM 0.52 mg/dL (0.57-1.11); EST GLOMERULAR FILTRATION RATE > 60 ML/MIN (60-); GLUCOSE 92 mg/dL (74-118); POTASSIUM 3.5 mmol/L (3.5-5.1); SODIUM 141 mmol/L (136-145)
[2019-03-29 05:44] LABS: BUN/CREATININE RATIO 10 (6-25)
[2019-03-29 05:56] LABS: CHOL/HDL RATIO 2.2 (3.0-3.6); MAGNESIUM 2.4 MG/DL (1.3-2.1); PHOSPHORUS 3.6 MG/DL (2.3-4.7)
[2019-03-29 06:15] LABS: THYROID STIMULATING HORMONE 0.699 uIU/mL (0.350-4.940)
[2019-03-29] MEDS: FAMOTIDINE 20 MG TAB PO SCH ×2 (07:30→16:30)
--- NOTE | 2019-03-29 08:30 | NUR ---
Patient alert and responsive, VSS, medicated for pain and labs filled and submitted on paper for hemoglobin electrophoresis. Call light within reach, will monitor.
[2019-03-29] MEDS: DOCUSATE SODIUM 100 MG CAP PO SCH ×2 (09:00→17:00)
[2019-03-29] MEDS: GUAIFENESIN 600MG/DEXTROMETHORPHAN 30MG TABSR PO SCH ×2 (09:00→17:00)
[2019-03-29] MEDS: FOLIC ACID 1 MG TAB PO SCH (09:00)
--- NOTE | 2019-03-29 14:17 | NUR ---
CM to pt's bedside for discharge assessment. Pt refused to answer any questions. Pt asked about how to obtain a gold card. Pt states that she has insurance but can't pay her bills. CM provided self pay packet with assistance information. Informed pt that she can go to [facility] and eligibility department will assist with application for gold card. Left business card at bedside for any additional questions/concerns.
[2019-03-29] MEDS: HYDROCODONE/APAP 10MG-325MG TAB PO PRN ×2 (15:35→21:19)
--- NOTE | 2019-03-29 19:20 | NUR ---
Patient received sitting up in bed. AAO x 3. Patient had no complaints of pain. Respirations even and non-labored. Venturi mask on patient . IVF infusing at 150 cc/ hr. Bed locked and in lowest position. Bed rails up x 2. Patient instructed to call for assistance when needed. Call light within reach.
[2019-03-29] MEDS ORDERED: POTASSIUM CHLORIDE 20 MEQ TAB CR PO ONE (20:00)
[2019-03-29] MEDS ORDERED: DIPHENHYDRAMINE HCL ELIX 12.5 MG/5 ML UDC NG ONE (22:45)
--- NOTE | 2019-03-29 22:51 | NUR ---
Patient complained of itching. Lucy Bedoya (HANG) notified. New order received.
[2019-03-29] MEDS: CEFTRIAXONE SOD 1 GM/NS 50 ML 50 ML IV SCH (23:00)
[2019-03-29] MEDS: AZITHROMYCIN 500MG/NS 250 ML 250 ML IV SCH (23:46)
[2019-03-30] VITALS (8 sets, daily range): BP systolic 105–127; BP diastolic 54–70
[2019-03-30] MEDS: ALBUTEROL/IPRATROPIUM 3 ML NEB NEB SCH ×6 (02:55→23:00)
[2019-03-30] MEDS: HYDROMORPHONE 2MG/ML 2 MG/ML ML IV PRN ×6 (03:02→20:16)
[2019-03-30] MEDS: HYDROCODONE/APAP 10MG-325MG TAB PO PRN ×3 (04:32→22:53)
[2019-03-30] MEDS: SODIUM CHLORIDE 0.9% 1000ML 1,000 ML IV SCH ×3 (04:35→22:53)
[2019-03-30 04:39] LABS: BASOPHILS # (AUTO) 0.1 (0.0-0.1); BASOPHILS % 0.7 % (0.0-1.0); EOSINOPHILS # (AUTO) 0.3 (0.0-0.4); EOSINOPHILS % 3.1 % (0.0-6.0); LYMPHOCYTES # (AUTO) 1.3 (1.0-3.2); LYMPHOCYTES % 15.2 % (18.0-39.1); MEAN CORPUSCULAR HEMOGLOBIN 22.6 pg (28-32); MEAN CORPUSCULAR HGB CONC 32.1 g/dL (31-35); MEAN CORPUSCULAR VOLUME 70.6 fL (81-99); MONOCYTES # (AUTO) 1.1 (0.2-0.8); MONOCYTES % 12.5 % (4.4-11.3); NEUTROPHILS # (AUTO) 5.9 (2.1-6.9); PLATELET COUNT 167 x10e3/uL (140-360); RED BLOOD COUNT 2.96 x10e6/uL (3.6-5.1); RED CELL DISTRIBUTION WIDTH 15.6 % (11.7-14.4); RETICULOCYTE % 4.7 % (0.8-2.2)
[2019-03-30 04:45] LABS: HEMATOCRIT 20.9 % (34.2-44.1); HEMOGLOBIN 6.7 g/dL (12.0-16.0)
--- NOTE | 2019-03-30 04:57 | NUR ---
chemical laboratory technician called with critical lab values for Hemoglobin (6.9) and Hematocrit (20.9). Lucy Bedoya (HANG) notified. Order received for "Type and Screen" . WATCH CASE POLISHER stated she would speak with Dr. Cora Chavez in the morning.
[2019-03-30 05:02] LABS: ANION GAP 7.8 mmol/L (8-16); BILIRUBIN,DIRECT 0.5 mg/dL (0.0-0.5); BLOOD UREA NITROGEN < 5 mg/dL (7-26); CALCIUM 8.6 mg/dL (8.4-10.2); CARBON DIOXIDE 26 mmol/L (22-29); CHLORIDE 114 mmol/L (98-107); EST GLOMERULAR FILTRATION RATE > 60 ML/MIN (60-); GLUCOSE 109 mg/dL (74-118); LACTATE DEHYDROGENASE 266 IU/L (125-220); MAGNESIUM 2.4 MG/DL (1.3-2.1); POTASSIUM 3.8 mmol/L (3.5-5.1); SODIUM 144 mmol/L (136-145)
[2019-03-30 05:15] LABS: BUN/CREATININE RATIO 10 (6-25)
--- NOTE | 2019-03-30 07:17 | NUR ---
Walking rounds done. Shift report given to oncoming nurse.
[2019-03-30] MEDS: GUAIFENESIN 600MG/DEXTROMETHORPHAN 30MG TABSR PO SCH ×2 (07:46→17:33)
[2019-03-30] MEDS: FOLIC ACID 1 MG TAB PO SCH (07:46)
[2019-03-30] MEDS: FAMOTIDINE 20 MG TAB PO SCH ×2 (07:46→17:32)
[2019-03-30] MEDS: DOCUSATE SODIUM 100 MG CAP PO SCH ×2 (07:46→17:33)
[2019-03-30] MEDS ORDERED: ACETAMINOPHEN 325 MG TAB PO PRN (09:00)
[2019-03-30] MEDS ORDERED: SODIUM CHLORIDE 0.9% 250ML 250 ML IV NR (09:00)
[2019-03-30] MEDS ORDERED: BISACODYL 5 MG TAB EC PO PRN (09:15)
--- NOTE | 2019-03-30 10:05 | NUR ---
Chart review completed. PT will defer eval until H/H >8. Currently at 6.7 and pt getting ready for a blood transfusion. Addendum: 03/30/19 at 1007 by Blu Garcia PT Amended: Links added.
[2019-03-30] MEDS ORDERED: DIPHENHYDRAMINE HCL INJ 50 MG/ML VIAL IV PRN (11:15)
[2019-03-30] MEDS ORDERED: SODIUM CHLORIDE 0.9% 250ML 250 ML ONE (15:05)
--- NOTE | 2019-03-30 16:04 | NUR ---
UA collected and taken to lab
[2019-03-30 16:09] LABS: BILIRUBIN,URINE NEGATIVE (NEGATIVE); CLARITY,URINE CLEAR (CLEAR); COLOR,URINE YELLOW (YELLOW); KETONES,URINE NEGATIVE (NEGATIVE); LEUKOCYTE ESTERASE ,URINE NEGATIVE (NEGATIVE); NITRITE,URINE NEGATIVE (NEGATIVE); PROTEIN,URINE DIPSTICK NEGATIVE (NEGATIVE); URINE UROBILINOGEN 0.2 mg/dL (0.2 - 1)
[2019-03-30 16:16] LABS: BACTERIA,URINE FEW /HPF; EPITHELIAL CELLS,URINE FEW /LPF; RBC,URINE 0-5 /HPF (0-5); WBC,URINE (MAN) 0-5 /HPF (0-5)
[2019-03-30] MEDS: ONDANSETRON HCL INJ 2MG/ML 2ML 2 MG/ML VIAL IV PRN ×2 (17:30→23:12)
[2019-03-30] MEDS: CEFTRIAXONE SOD 1 GM/NS 50 ML 50 ML IV SCH (22:54)
--- NOTE | 2019-03-30 23:39 | Consultation ---
DATE OF CONSULTATION: 03/29/2019 CONSULTING PHYSICIAN: Christiano Chavez MD, Hematology-Oncology Service. REASON FOR CONSULTATION: Evaluation and management of patient with sickle cell anemia and crisis. HISTORY OF PRESENTING ILLNESS: Ms. Graves is a very pleasant 23-year-old female, who is very well known to me as she has sickle cell anemia and follows up at [facility]. She has had been getting multiple hospitalizations lately due to sickle cell crisis. She gets her episodes at least once a month. Usually it coincide with her period. Her baseline hemoglobin is around 8. She has been declining taking hydroxyurea as she does think that it is harmful. She is admitted again due to sickle cell crisis and pain. Hematology-Oncology has been consulted to assist with the management. Presently, the patient is lying comfortably, not in acute distress, however, pain is improved. She is breathing normally. Denies any nausea, vomiting, or fever. PAST MEDICAL HISTORY: 1. Sickle cell anemia. 2. Chronic pain syndrome. 3. Noncompliance with the medication. PAST SURGICAL HISTORY: No prior surgery. SOCIAL HISTORY: Denies history of smoking, alcohol use, or illicit drug use. She lives in [place], [place]. FAMILY HISTORY: Positive for sickle cell disease. REVIEW OF SYSTEMS: A 14-point review of system is negative except as mentioned per history of presenting illness. PHYSICAL EXAMINATION: VITAL SIGNS: Reviewed as per electronic medical record. HEENT: PERRLA. Extraocular movements are intact. Head is atraumatic and normocephalic. NECK: Supple. CVS: S1 and S2 audible. RESPIRATORY: Decreased bilateral air entry. ABDOMEN: Soft. Positive bowel sounds. EXTREMITIES: Negative edema. NEURO: The patient is alert and awake. LABORATORY DATA: Reviewed as per electronic medical record. ASSESSMENT AND PLAN: Ms. Graves is a very pleasant 23-year-old young female with known history of sickle cell disease, came in with acute crisis going on for months. Her baseline hemoglobin is around 8. She has been admitted due to sickle cell crisis. She is complaining of severe body ache, which is 7 to 10 in intensity, though it is improved with pain medication. Hematology-Oncology has been consulted to assist with the management. I have reviewed the record and discussed at length with the patient about the current disease and importance of immediate intervention and monitoring. I have also recommended outpatient close followup and is to be started on Hydrea to prevent recurrent episodes. At this point, recommendation would be to check daily labs including CBC, LDH, bilirubin, and CMP. A chest x-ray was performed with the concern of possible atelectasis versus pneumonia. She has been started on IV antibiotic. We will closely monitor and transfusion as needed to keep her hemoglobin above 7.5. Thank you for the consult. I will continue to be available. Please call with questions. MD JEFF Gillette/MODL /[id number]
[2019-03-30] MEDS: AZITHROMYCIN 500MG/NS 250 ML 250 ML IV SCH (23:57)
[2019-03-31] VITALS (8 sets, daily range): BP systolic 100–119; BP diastolic 54–78
[2019-03-31] MEDS: SODIUM CHLORIDE 0.9% 1000ML 1,000 ML IV SCH ×4 (00:35→20:35)
[2019-03-31] MEDS: HYDROMORPHONE 2MG/ML 2 MG/ML ML IV PRN ×7 (00:55→21:38)
[2019-03-31] MEDS: ALBUTEROL/IPRATROPIUM 3 ML NEB NEB SCH ×5 (02:00→20:50)
[2019-03-31 03:38] LABS: BASOPHILS # (AUTO) 0.1 (0.0-0.1); BASOPHILS % 0.9 % (0.0-1.0); EOSINOPHILS # (AUTO) 0.3 (0.0-0.4); EOSINOPHILS % 3.8 % (0.0-6.0); HEMATOCRIT 25.2 % (34.2-44.1); HEMOGLOBIN 8.4 g/dL (12.0-16.0); LYMPHOCYTES # (AUTO) 1.6 (1.0-3.2); LYMPHOCYTES % 20.3 % (18.0-39.1); MEAN CORPUSCULAR HEMOGLOBIN 24.1 pg (28-32); MEAN CORPUSCULAR HGB CONC 33.3 g/dL (31-35); MEAN CORPUSCULAR VOLUME 72.2 fL (81-99); MONOCYTES # (AUTO) 0.9 (0.2-0.8); MONOCYTES % 11.5 % (4.4-11.3); NEUTROPHILS # (AUTO) 4.8 (2.1-6.9); NEUTROPHILS % 63.1 % (38.7-80.0); PLATELET COUNT 195 x10e3/uL (140-360); RED BLOOD COUNT 3.49 x10e6/uL (3.6-5.1); RED CELL DISTRIBUTION WIDTH 17.8 % (11.7-14.4); RETICULOCYTE % 4.8 % (0.8-2.2)
[2019-03-31 04:14] LABS: ANION GAP 10.6 mmol/L (8-16); BLOOD UREA NITROGEN < 5 mg/dL (7-26); CALCIUM 9.1 mg/dL (8.4-10.2); CARBON DIOXIDE 25 mmol/L (22-29); CHLORIDE 107 mmol/L (98-107); CREATININE, SERUM 0.49 mg/dL (0.57-1.11); EST GLOMERULAR FILTRATION RATE > 60 ML/MIN (60-); GLUCOSE 91 mg/dL (74-118); MAGNESIUM 2.2 MG/DL (1.3-2.1); POTASSIUM 3.6 mmol/L (3.5-5.1); SODIUM 139 mmol/L (136-145)
[2019-03-31 04:17] LABS: BUN/CREATININE RATIO 10 (6-25)
[2019-03-31] MEDS: ONDANSETRON HCL INJ 2MG/ML 2ML 2 MG/ML VIAL IV PRN ×3 (04:30→21:38)
[2019-03-31] MEDS: DOCUSATE SODIUM 100 MG CAP PO SCH ×2 (09:31→16:25)
[2019-03-31] MEDS: FAMOTIDINE 20 MG TAB PO SCH ×2 (09:31→16:25)
[2019-03-31] MEDS: FOLIC ACID 1 MG TAB PO SCH (09:31)
[2019-03-31] MEDS: GUAIFENESIN 600MG/DEXTROMETHORPHAN 30MG TABSR PO SCH ×2 (09:31→16:25)
[2019-03-31] MEDS: HYDROCODONE/APAP 10MG-325MG TAB PO PRN ×3 (13:15→23:32)
[2019-03-31] MEDS: CEFTRIAXONE SOD 1 GM/NS 50 ML 50 ML IV SCH (23:18)
[2019-03-31] MEDS: AZITHROMYCIN 500MG/NS 250 ML 250 ML IV SCH (23:18)
[2019-04-01] VITALS: BP 102/57
[2019-04-01] MEDS: HYDROMORPHONE 2MG/ML 2 MG/ML ML IV PRN ×4 (01:15→11:00)
[2019-04-01] MEDS: ONDANSETRON HCL INJ 2MG/ML 2ML 2 MG/ML VIAL IV PRN (03:20)
[2019-04-01 04:00] VITALS: BP 98/60
[2019-04-01 04:33] LABS: BASOPHILS # (AUTO) 0.1 (0.0-0.1); BASOPHILS % 1.1 % (0.0-1.0); EOSINOPHILS # (AUTO) 0.3 (0.0-0.4); EOSINOPHILS % 5.3 % (0.0-6.0); HEMATOCRIT 30.8 % (34.2-44.1); HEMOGLOBIN 9.5 g/dL (12.0-16.0); LYMPHOCYTES # (AUTO) 1.9 (1.0-3.2); LYMPHOCYTES % 29.7 % (18.0-39.1); MEAN CORPUSCULAR HEMOGLOBIN 23.6 pg (28-32); MEAN CORPUSCULAR HGB CONC 30.8 g/dL (31-35); MONOCYTES # (AUTO) 0.7 (0.2-0.8); MONOCYTES % 11.7 % (4.4-11.3); NEUTROPHILS # (AUTO) 3.3 (2.1-6.9); PLATELET COUNT 254 x10e3/uL (140-360); RED BLOOD COUNT 4.02 x10e6/uL (3.6-5.1); RED CELL DISTRIBUTION WIDTH 19.2 % (11.7-14.4); RETICULOCYTE % 3.9 % (0.8-2.2)
[2019-04-01 04:37] LABS: MEAN CORPUSCULAR VOLUME 76.6 fL (81-99)
[2019-04-01] MEDS: SODIUM CHLORIDE 0.9% 1000ML 1,000 ML IV SCH ×2 (04:47→08:15)
[2019-04-01 04:48] LABS: ALANINE AMINOTRANSFERASE 10 IU/L (0-55); ALBUMIN 3.9 g/dL (3.5-5.0); ALKALINE PHOSPHATASE 56 IU/L (40-150); BILIRUBIN,DIRECT 0.5 mg/dL (0.0-0.5); BLOOD UREA NITROGEN 5 mg/dL (7-26); BUN/CREATININE RATIO 9 (6-25); CALCIUM 9.4 mg/dL (8.4-10.2); CARBON DIOXIDE 26 mmol/L (22-29); CHLORIDE 107 mmol/L (98-107); CREATININE, SERUM 0.53 mg/dL (0.57-1.11); EST GLOMERULAR FILTRATION RATE > 60 ML/MIN (60-); GLUCOSE 86 mg/dL (74-118); SODIUM 140 mmol/L (136-145)
--- NOTE | 2019-04-01 05:30 | NUR ---
patient complained that the IV in her right hand 20g was hurting and burned when flushed. The IV was removed catheter intact. redness was noted to the right hand.
[2019-04-01 07:35] VITALS: BP 106/63
[2019-04-01] MEDS: ALBUTEROL/IPRATROPIUM 3 ML NEB NEB SCH ×2 (07:42→11:38)
[2019-04-01 08:01] VITALS: BP 106/63
[2019-04-01] MEDS: GUAIFENESIN 600MG/DEXTROMETHORPHAN 30MG TABSR PO SCH (08:14)
[2019-04-01] MEDS: DOCUSATE SODIUM 100 MG CAP PO SCH (08:14)
[2019-04-01] MEDS: FAMOTIDINE 20 MG TAB PO SCH (08:14)
[2019-04-01] MEDS: FOLIC ACID 1 MG TAB PO SCH (08:14)
[2019-04-01] MEDS ORDERED: CEFUROXIME500 MG PO (08:21)
[2019-04-01] MEDS ORDERED: MUCINEX DM ER1 EACH PO (08:21)
[2019-04-01 11:22] VITALS: BP 105/72
[2019-04-01] MEDS ORDERED: ONDANSETRON HCL 4 MG ORAL DISINTEGRATING TAB PO PRN (12:00)
--- NOTE | 2019-04-01 12:00 | NUR ---
PIV removed with tip intact. patient d/c home with RX, d/c instructions and all personal belongings in hand. refused assistance to exit. male friend with patient assisting her to carry out her belongings. denies pain, and SOB. no acute distress noted, Resp even and unlabored.
--- NOTE | 2019-04-02 00:58 | Progress Note ---
DATE: 04/01/2019 Followup Note. CHIEF COMPLAINT: The patient is with sickle cell anemia, admitted due to the crisis. She has received transfusion with improved count. PAST MEDICAL HISTORY: Sickle cell anemia, chronic pain syndrome, noncompliance with medication. PHYSICAL EXAMINATION: Vital signs reviewed as per electronic medical record. LABORATORY DATA: Reviewed as per electronic medical record. ASSESSMENT AND PLAN: Ms. Graves is a 23-year-old female with known history of sickle cell crisis, admitted due to pain and drop in hemoglobin. She required PRBC transfusion . She is staying stable. We will follow. MD JEFF Gillette/HUGH /[id number]
--- NOTE | 2019-04-02 11:20 | Discharge Summary ---
ADMISSION DIAGNOSES: Sickle cell crisis with history of sickle cell anemia, acute community-acquired pneumonia present on admission, acute urinary tract infection with cystitis and hematuria, severe pain, sepsis, acute fever and leukocytosis, acute hypokalemia, anxiety, tachycardia. DISCHARGE DIAGNOSES: Sickle cell crisis with history of sickle cell anemia, acute community-acquired pneumonia present on admission, acute urinary tract infection with cystitis and hematuria, severe pain, sepsis, acute fever and leukocytosis, acute hypokalemia, anxiety, tachycardia. Rule out urinary tract infection. HISTORY: The patient has a history of sickle cell anemia, multiple CVAs, anxiety, chronic back pain, and seizure disorder. SURGICAL HISTORY: None. FAMILY HISTORY: The patient's grandmother had diabetes. The patient's dad had a heart attack. SOCIAL HISTORY: The patient recently dropped out of school and is no longer working due to her illness. HOSPITAL COURSE: A 23-year-old female began having muscle aches, pain scored at 10/10 on 03/26/2019. She has known sickle cell anemia, and attempted to manage the pain at home, but states the pain became too severe, so she came to the ER. The patient is being treated with Dilaudid q.4, but was still having severe pain, so was increased q.2. Hemoglobin electrophoresis was ordered and pending at time of discharge. Hemoglobin was 8.9 on admission. The patient had a chest x-ray that showed persistent left lower lung field focal opacity representing atelectasis, scarring, or pneumonia. The patient's hemoglobin dropped to 6.7 on 03/30/2019. The patient was given 2 units of PRBCs. She was also started on Zithromax, Rocephin, DuoNeb, and Mucinex p.r.n. for the pneumonia. The patient's retic count on admission was 6.3, on discharge it was 3.9. Hematology-Oncology was following and advised the patient to follow up closely outpatient and start on hydroxyurea at the time of discharge. The patient refuses to follow up with him and refuses hydroxyurea, so she will discharge home with 2 more days of Ceftin and Mucinex p.r.n. She will continue her folic acid and Guy from home. The patient understands discharge instructions and agrees to plan. She is actually requesting discharge as she feels much better and is ready to return home. Dictated by Hayde Taylor, PRINTING SERVICES COORDINATOR MD ISAI Morlaes/HUGH /[id number]
== END 2019-04-01 11:59 | disposition home or self-care (01) | DRG 871 ==
LOC: ER 21:35 → ERHOLD 03-28 00:47 → MED/SURG2 03-28 10:23
PROVIDERS: ADMIT Internal Medicine; ATTEND Internal Medicine
PROC: 30233N1 Transfusion of Nonautologous Red Blood Cells into Peripheral Vein, Percutaneous Approach (ICD-10-PCS; principal; 2019-03-30)
DX: A41.9 Sepsis, unspecified organism (principal); D57.00 Hb-SS disease with crisis, unspecified; J18.9 Pneumonia, unspecified organism; N30.01 Acute cystitis with hematuria; E87.6 Hypokalemia; Z86.73 Personal history of transient ischemic attack (TIA), and cerebral infarction without residual deficits; F41.9 Anxiety disorder, unspecified; G40.909 Epilepsy, unspecified, not intractable, without status epilepticus; R00.0 Tachycardia, unspecified; G89.4 Chronic pain syndrome
CPT/HCPCS: 36415; 71045; 80048; 80053; 80061; 80076; 81001; 81025; 82248; 82550; 82553; 83021; 83615; 83735; 84100; 84145; 84155; 84443; 84484; 85007; 85025; 85027; 85045; 86850; 86900; 86920; 87086; 93005; 94640; 96374; 96375; 99284; J0456; J0696; J1200; J1885; J2405; J7030; J7050; P9016

== ENCOUNTER 2019-12-31 13:01 | Emergency (ER) | payer OTHER ==
[~2019-12-31] VITALS: Ht 162.6 cm; Wt 64.4 kg
[~2019-12-31 13:01] MED LIST changes: +CEFUROXIME500 MG PO; +HYDROCODON-ACE1 EAC9 PO; +MUCINEX DM ER1 EACH PO
--- OUTSIDE RECORDS SUMMARY | 2019-12-31 13:13 | XMS REPORT | Summary of Care ---
Author Author DavonAniyacobysissy Sudhir Unknown Address Unknown Phone Unavailable Care Team Providers Care Industrial Production Manager Name Role Phone BILL Bauer, EDWARD Unavailable Unavailable BARB Bauer, NATI Unavailable Unavailable ADAIR Bauer, DAGOBERTO Unavailable Unavailable ADAIR MEEKS KS, DAGOBERTO M Unavailable Unavailable DEBORAH RECEIVING ROOM CLERK DAMARI MENDOZAANDA Unavailable Unavailable Barb MEEKS, Nati Unavailable Unavailable MARVIN MEEKS [place], KELSEY Unavailable Unavailable BILL MEEKS [place], EDWARD Unavailable Unavailable Jose MEEKS, Jeannie Unavailable Unavailable Unavailable Unavailable Functional Status Name Dates Details Functional status health issues are not documented Status: Name Dates Details Cognitive status health issues are not documented Status: Problems Name Dates Details Teeth problem (525.9, K08.9) Status: Active Bone pain (733.90, M89.8X9) Status: Active Chest pain, non-cardiac (786.59, R07.89) Status: Active Sickle cell disease (282.60, 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 Inflammatory acne (706.1, L70.8) Status: Active History of medication noncompliance (V15.81, Z91.14) Status: Active NSAID long-term use (V58.64, Z79.1) Status: Active Psychosocial distress (V62.89, Z65.8) Status: Active Adjustment disorder (309.9, F43.20) Status: Active Social problem (V62.9, Z65.9) Status: Active Pulmonary HTN (416.8, I27.20) Status: Active Memory loss (780.93, R41.3) Status: Active 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, 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 Genital herpes simplex, unspecified site (054.10, A60.00) Status: Active Nausea and vomiting (787.01, R11.2) Status: Active H/O migraine (V12.49, Z86.69) Status: Active Malaise and fatigue (780.79, R53.81) Status: Active Nausea (787.02, R11.0) Status: Active 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, 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) Status: Active Sickle cell pain crisis (282.62, D57.00) Status: Active Bacterial vaginosis (616.10, N76.0) Status: Active Proteinuria (791.0, R80.9) Status: Active Insomnia (780.52, G47.00) Status: Active PTSD (post-traumatic stress disorder) (309.81, F43.10) Status: Active Major depressive disorder, recurrent episode, severe with anxious distress (296.33, F33.2) Status: Active Encounter for drug screening (V72.85, Z02.83) Status: Active Diarrhea, unspecified type (787.91, R19.7) Status: Active Iron overload (275.09, E83.19) Status: Active Sickle cell anemia with pain (282.62, D57.00) Status: Active Acne (706.1, L70.9) Status: Active Chronic pain (338.29, G89.29) Status: Active Constipation due to opioid therapy (564.09, K59.03) Status: Active Hospital discharge follow-up (V67.59, Z09) Status: Active Sickle cell disease, 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 Quantity: 60 APOSTOLIDOU M.D., EFFROSYNI Active Ondansetron HCl - 4 MG Oral Tablet TAKE 1 TABLET EVERY 8 HOURS PRN nausea * Quantity: 30 Refills: 3 APOSTOLIDOU M.Avtar., EFFROSYNI * Start : 06-Mar-2017 Active Polyethylene Glycol 3350 Oral Packet MIX 1 PACKET IN 8 OUNCES OF LIQUID AND DRINK ONCE DAILY. * Quantity: 30 Refills: 6 APOSTOLIDOU M.D., EFFROSYNI * Start : 27-Nov-2017 Active ALPRAZolam 1 MG Oral Tablet Take 1 tab daily as needed for anxiety * Quantity: 30 Refills: 0 KAYLINSTOLIDKEEGAN Bauer EFFROSYNI * Start : 29-Oct-2019 Active traZODone HCl - 50 MG Oral Tablet TAKE 1 TABLET AT BEDTIME. * Quantity: 30 Refills: 1 KAYLINSTOLIDKEEGAN Bauer, EFFROSYNI * Start : 16-Jul-2018 Active Deferasirox 360 MG Oral Tablet TAKE 2 TABLET DAILY * Quantity: 60 Refills: 5 KAYLINSTOLIDKEEGAN Bauer, EFFROSYNI * Start : 25-Jul-2018 Active Morphine Sulfate 30 MG Oral Tablet take 30 mg IR every 4-6 hours as needed for pain * Quantity: 90 Refills: 0 DAGOBERTO BORRERO M.D. * Start : 19-Oct-2018 Active HYDROcodone-Acetaminophen 10-325 MG Oral Tablet TAKE 1 TABLET EVERY 4 TO 6 HOURS NEEDED FOR PAIN. * Quantity: 90 Refills: 0 KAYLINSTOLIDKEEGAN Bauer EFFROSYNI * Start : 24-Dec-2018 Active HYDROmorphone HCl - 2 MG Oral Tablet Take 1 tb every 4-6 hours as needed for breakthrough pain (ie > 7/10) * Quantity: 90 Refills: 0 KAYLINSTSARY Bauer EFFROSYNI * Start : 29-Apr-2019 Active levETIRAcetam 750 MG Oral Tablet TAKE 1 TABLET TWICE DAILY * Quantity: 60 Refills: 11 EDWARD KHAN M.D. * Start : 31-May-2019 Active Sertraline HCl - 25 MG Oral Tablet TAKE 1 TABLET BEDTIME * Quantity: 30 Refills: 2 EDWARD KHAN M.D. * Start : 15-Aug-2019 Active Allergies and Adverse Reactions Name Dates Details amoxicillin (Allergy) Status: Active Augmentin (Allergy) Status: Active Benadryl (Allergy) Status: Active cefuroxime (Allergy) Reaction: Diarrhea, Nausea Status: Active tramadol (Allergy) Status: Active Radioactive Dye (Allergy) Reaction: Anaphylaxis Status: Active Past Medical History Name Dates Details History of allergic rhinitis (V12.69, Z87.09) Status: Resolved History of anxiety disorder (V11.8, Z86.59) Status: Resolved History of Asthma (493.90, J45.909) Status: Resolved History of cerebrovascular accident (V12.54, Z86.73) Status: Resolved History of Epilepsy (345.90, G40.909) Status: Resolved History of memory loss (V11.9, Z87.898) Status: Resolved History of migraine (V12.49, Z86.69) Status: Resolved History of Migraine headache (346.90, G43.909) Status: Resolved History of sickle cell crisis (V12.3, Z86.2) Status: Resolved History of Sinus arrhythmia (427.89, I49.8) Status: Resolved History of syncope (V15.89, Z87.898) Status: Resolved History of Well woman exam (V72.31, Z01.419) Status: Resolved Procedures Procedure Dates Details Procedures not documented Immunization Name Dates Details Fluzone Quadrivalent 0.5 [...] Varivax 1350 PFU/0.5ML Subcutaneous Injectable Lot #: [id number] on: 02-Jun-2009 Meningo (Menactra) on: 02-Jun-2009 Tdap [...] sickle cell trait (V18.3, Z83.2) Status: Active Family history of Heart disease (429.9, I51.9) Status: Active Name Dates Details Family history of sickle cell trait (V18.3, Z83.2) Status: Active Social History Name Dates Details - Status: Name Dates Details Never smoker Vital Signs Date Test Result Details [id number] Physical Findings 11 Status: Comments: PHQ-9 Adult Depression Screening Results Date Description Value Details Results not documented Plan of Care Name Dates Details Planned Observations Planned Goals not documented Planned Encounters Appointment; DAGOBERTO BORRERO M.D. On: 28-Nov-2019 9:00 Appointment; JEANNIE MONTES DE OCA M.D. On: 19-Dec-2019 13:00 Appointment; NATI MOBLEY M.D. On: 30-Dec-2019 15:20 Appointment; [facility] On: 24-Jan-2020 8:00 Appointment; EDWARD KHAN M.D. On: 24-Jan-2020 9:30 Instructions Name Dates Details Instructions not documented Encounters Appointment; NATI MOBLEY M.D. Encounter Diagnosis: Problem not documented On: 18-Dec-2017 15:20 Appointment; DAMARI CABRERA NP Encounter Diagnosis: Problem not documented On: 26-Dec-2017 10:00 Appointment; NATI MOBLEY M.D. Encounter Diagnosis: Problem not documented [...] Problem not documented On: 09-Apr-2018 16:00 Appointment; NATI MOBLEY M.D. Encounter Diagnosis: Problem not documented [...] Problem not documented On: 16-Jul-2018 10:00 Appointment; NATI MOBLEY M.D. Encounter Diagnosis: Problem not documented On: 16-Jul-2018 14:40 Appointment; DAMARI CABRERA NP Encounter Diagnosis: Problem not documented On: 25-Jul-2018 13:00 Appointment; NATI MOBLEY M.D. Encounter Diagnosis: Problem not documented On: 13-Aug-2018 16:00 Appointment; NATI MOBLEY M.D. Encounter Diagnosis: Problem not documented On: 17-Sep-2018 15:40 Appointment; NATI MOBLEY M.D. Encounter Diagnosis: Problem not documented On: 08-Oct-2018 13:40 Appointment; NATI MOBLEY M.D. Encounter Diagnosis: Problem not documented On: 08-Oct-2018 13:40 Appointment; DAGOBERTO BORRERO M.D. Encounter Diagnosis: Problem not documented On: 24-Dec-2018 11:30 Appointment; NATI MOBLEY M.D. Encounter Diagnosis: Problem not documented [...] Problem not documented On: 04-Mar-2019 14:30 Appointment; NATI MOBLEY M.D. Encounter Diagnosis: Problem not documented On: 04-Mar-2019 15:20 Appointment; XIMENA LION M.D. Encounter Diagnosis: Problem not documented On: 06-Mar-2019 15:00 Appointment; DAGOBERTO BORRERO M.D. Encounter Diagnosis: Problem not documented On: 20-Mar-2019 13:00 Appointment; DAMARI CABRERA NP Encounter Diagnosis: Problem not documented On: 29-Apr-2019 13:00 Appointment; NATI MOBLEY M.D. Encounter Diagnosis: Problem not documented On: 29-Apr-2019 14:40 Appointment; DAGOBERTO BORRERO M.D. Encounter Diagnosis: Problem not documented On: 31-May-2019 13:30 Appointment; DAGOBERTO BORRERO M.D. Encounter Diagnosis: Problem not documented On: 14-Jun-2019 14:00 Appointment; EDWARD KHAN M.D. Encounter Diagnosis: Problem not documented On: 05-Aug-2019 10:00 Appointment; JEANNIE MONTES DE OCA M.D. Encounter Diagnosis: Problem not documented On: 15-Aug-2019 9:30 Appointment; DAGOBERTO BORRERO M.D. Encounter Diagnosis: Problem not documented On: 15-Aug-2019 14:00 Appointment; JONA ARAGON LCSW Encounter Diagnosis: Problem not documented On: 19-Aug-2019 13:30 Appointment; NATI MOBLEY M.D. Encounter Diagnosis: Problem not documented On: 19-Aug-2019 14:40 Appointment; DAGOBERTO BORRERO M.D. Encounter Diagnosis: Problem not documented On: 04-Oct-2019 13:15 Appointment; EDWARD KHAN M.D. Encounter Diagnosis: Problem not documented On: 22-Oct-2019 15:00 Appointment; NATI MOBLEY M.D. Encounter Diagnosis: Problem not documented On: 28-Oct-2019 15:20
--- OUTSIDE RECORDS SUMMARY | 2019-12-31 13:13 | XMS REPORT | Continuity of Care Document ---
Author Author [facility] Organization 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 Name Role Phone FOUND, NOT PCP PCP Unavailable Allergies, Adverse Reactions, Alerts Allergen Type Severity Reaction Last Updated Verified Status Iodine Allergy Unknown RASH (I) July 09, 2019 Yes Active Clavulanic acid / ticarcillin Allergy Moderate July 09, 2019 Yes Active Amoxicillin Allergy Moderate July 09, 2019 Yes Active Medications Medication Status Dose Units Route Sig Qty Days Start Date End Date Instructions Acetaminophen/Hydrocodone Bitart Active 1 Every 4 - 6 Hours as needed for Pain Alprazolam Active 1 mg Daily as needed for Anxiety/Agitation Ascorbic Acid Active 500 mg Daily Bupropion Hcl Active 100 mg Twice A Day as needed for Anxiety/Agitation Cholecalciferol (Vitamin D3) Active 2000 Daily Cod Liver Oil Active 1 Daily Cyanocobalamin Active 1 Daily Docusate Sodium Active 100 mg Daily as needed for Constipation Doxycycline Monohydrate Active 100 mg Twice A Day Folic Acid Active 2 mg Twice A Day Hydromorphone Hcl Active 2 mg Every 4 - 6 Hours as needed for Breakthrough Pain Hydroxyzine Hcl Active 50 mg Four Times Daily as needed for Anxiety/Agitation Ibuprofen Active 800 mg Every 8 Hours as needed for Pain Levetiracetam Active 500 mg Twice A Day Levofloxacin Active 500 mg Daily 04 28July 25, 2019 4:11pm Take 1 tablet by mouth once daily for 10 days. Methocarbamol Active 500 mg Daily as needed for Muscle Pain Morphine Sulfate Active 30 mg Every 4 - 6 Hours as needed for Pain Multivitamins Therapeutic Active 1 Daily Ondansetron Hcl Active 4 mg Every 8 Hours as needed for Nausea / Vomiting Polyethylene Glycol 3350 Active 1 Daily Pyridoxine Hcl Active 1 Daily Trazodone Hcl Active 50 mg Bedtime Vitamin E Active 200 Daily Problems Active Problems Medical Problem Onset Date Status Concussion Active Sickle cell anemia Active Pain Active Sickle cell crisis Active Anemia, secondary Active Community acquired pneumonia Active Sickle cell pain crisis Active Inactive/Resolved Problems Medical Problem Onset Date Status Syncope Resolved Pneumonia Resolved Sickle cell pain crisis Resolved Sickle cell pain crisis Resolved Sickle cell pain crisis Resolved Acute sickle cell crisis Resolved Procedures Procedure Date Performed Status TRANSFUSE NONAUT RED BLOOD CELLS IN PERIPH VEIN, PERC May 20, 2016 completed TRANSFUSE NONAUT RED BLOOD CELLS IN PERIPH VEIN, PERC July 11, 2019 completed X-ray of chest, single view May 18, 2016 completed X-ray of chest, single view July 09, 2019 completed ECG (electrocardiogram) July 25, 2019 active X-ray of chest, two views July 25, 2019 completed Relevant Diagnostic Tests and/or Laboratory Data Laboratory Results Test Date/Time Result Interpretation Reference Range Result Comment Performing Site White Blood Count July 25, 2019 2:10pm 14.6 4.5-11.5 [facility], [address] [place] [address] Corrected White Blood Count July 25, 2019 2:10pm 14.3 4.5-11.5 [facility], [address] [place] [address] Red Blood Count July 25, 2019 2:10pm 3.83 3.8-5.1 [facility], [address] [place] [address] Hemoglobin July 25, 2019 2:10pm 9.1 12.0-15.2 [facility], [address] [place] [address] Hematocrit July 25, 2019 2:10pm 27.4 34.0-45.5 [facility], [address] [place] [address] Mean Corpuscular Volume July 25, 2019 2:10pm 71.5 80-94 [facility], [address] [place] [address]27[address] Mean Corpuscular Hemoglobin July 25, 2019 2:10pm 23.8 27.0-33.0 [facility], [address] [place] [address] Mean Corpuscular Hemoglobin Concent July 25, 2019 2:10pm 33.2 33.0-37.0 [facility], [address] [place] [address] 23980 Red Cell Distribution Width July 25, 2019 2:10pm 22.0 10.7-14.5 [facility], [address] [place] [address] Platelet Count July 25, 2019 2:10pm 425 150-450 [facility], [address] [place] [address] [place] [address] Mean Platelet Volume July 25, 2019 2:10pm 9.2 5.7-10.7 [facility], [address] [place] [address] Neutrophils (%) (Auto) July 12, 2019 10:20am 69 47-75 [facility], [address] [place] [address] Lymphocytes (%) (Auto) July 12, 2019 10:20am 16 25-44 [facility], [address] [place] [address] Monocytes (%) (Auto) July 12, 2019 10:20am 11 3-10 [facility], [address] [place] [address] Eosinophils (%) (Auto) July 12, 2019 10:20am 3 0-7 [facility], [address] [place] [address] [place] [address] Basophils (%) (Auto) July 12, 2019 10:20am 1 0-1 [facility], [address] [place] [address] Neutrophils # (Auto) July 12, 2019 10:20am 4.7 1.3-6.7 [facility], [address] [place] [address] [place] [address] Lymphocytes # (Auto) July 12, 2019 10:20am 1.1 1.4-4.1 [facility], [address] [place] [address] [place] [address] Monocytes # (Auto) July 12, 2019 10:20am 0.8 0-1.3 [facility], [address] [place], [place] [address] [place] [address] Eosinophils # (Auto) July 12, 2019 10:20am 0.2 0-0.8 [facility], [address] [place] [address] [place] [address] Basophils # (Auto) July 12, 2019 10:20am 0.1 0-0.1 [facility], [address] [place] [address] [facility] [place] [address] Manual Differential July 25, 2019 2:10pm ----- [facility], [address] [place] [address] [facility] [place] [address] Neutrophils % (Manual) July 25, 2019 2:10pm 75 42-75 [facility], [address] [place] [address] [facility] [place] [address] Band Neutrophils % (Manual) May 20, 2016 4:45am 15 5-11 [facility], [address] [place] [address] [facility] [place] [address] Lymphocytes % (Manual) July 25, 2019 2:10pm 16 21-51 [facility], [address] [place] [address] [facility] [place] [address] Monocytes % (Manual) July 25, 2019 2:10pm 7 1-9 [facility], [address] [place] [address] [facility] [place] [address] Eosinophils % (Manual) July 25, 2019 2:10pm 2 0-7 [facility], [address] [place] [address] [facility] [place] [address] Basophils % (Manual) May 18, 2016 11:00am 2 0-2 [facility], [address] [place] [address] [facility] [place] [address] Metamyelocytes % May 18, 2016 11:00am 2 0-0 [facility], [address] [place] [address] [facility] [place] [address] Myelocytes % May 18, 2016 11:00am 3 0-0 [facility], [address] [place] [address] [facility] [place] [address] Nucleated Red Blood Cells July 25, 2019 2:10pm 2 0-0 [facility], [address] [place] [address] [facility] [place] [address] Platelet Estimate July 25, 2019 2:10pm Adequate [facility], [address] [place] [address] [facility] [place] [address] Clumped Platelets May 20, 2016 4:45am Present Patient is EDTA platelet clumper - Specimen collected in citrate and EDTA [facility], [address] [place] [address] [employer] [place] [facility] [place] [address] Anisocytosis July 25, 2019 2:10pm 2+ [facility], [address] [place] [address] [facility] [place] [address] Microcytosis July 25, 2019 2:10pm 1+ [facility], [address] [place] [address] [facility] [place] [address] Polychromasia May 20, 2016 4:45am 1+ [facility], [address] [place] [address] [facility] [place] [address] Hypochromasia July 11, 2019 4:40am 2+ [facility], [address] [place] [address] [facility] [place] [address] Sickle Cells July 25, 2019 2:10pm 1+ [facility], [address] [place] [address] [facility] [place] [address] Target Cells July 25, 2019 2:10pm 1+ [facility], [address] [place] [address] [place] [address] Elliptocytes July 10, 2019 3:40am 1+ [facility], [address] [place] [address] [place] [address] Erythrocyte Sedimentation Rate July 25, 2019 2:10pm 4 0-20 [facility], [address] [place] [address] [facility] [address] Reticulocyte Count (auto) July 10, 2019 3:40am 8.0 0.5-1.7 [facility], [address] [facility] [address] Immature Reticulocyte Fraction July 10, 2019 3:40am 26.9 3.0-15.9 [facility], [address] [facility] [facility] [address] Reticulocyte Hgb Content (CHr) July 10, 2019 3:40am 24.8 28.2-36.6 [facility], [address] [facility] [facility] [address] Reticulocyte Count (manual) July 25, 2019 2:10pm 5.8 0.5-1.5 [facility], [address] [place] [address] [place] [address] Prothrombin Time May 18, 2016 11:00am 11.1 9.0-10.9 [facility], [address] [place] [address] [facility] [place] [address] Prothromb Time International Ratio May 18, 2016 11:00am 1.0 * *INR values, while recommended for monitoring all stages of oral anticoagulant therapy, may be less reliable during the initiation period of treatment.INR THERAPEUTIC RANGE: Conventional Dose=2.0 - 3.0 Intensive Dose=2.5 - 3.5 [facility], [address] [place] [address] Activated Partial Thromboplast Time May 18, 2016 11:00am 21.2 25.0-35.0 Although heparin therapy should be individualized, a range of 1.5 to 2.5 times the patient's baseline aPTT serves as a guideline. [facility], [address] [place] [address] Urine Source July 25, 2019 2:50pm URINE [facility], [address] [place] [address] [facility] [address] Urine Color July 25, 2019 2:50pm Yellow Yel-Lauren * [facility], [address] [place] [address] [facility] [address] Urine Appearance July 25, 2019 2:50pm Clear Clear * [facility], [address] [place] [address] [facility] [address] Urine pH July 25, 2019 2:50pm 6.5 5.0-8.0 [facility], [address] [place] [address] [facility] [address] Urine Specific [place] July 25, 2019 2:50pm 1.018 1.005-1.030 [facility], [address] [place] [address] [facility] [address] Urine Protein July 25, 2019 2:50pm 10 Negative * [facility], [address] [place] [address] [facility] [address] Urine Glucose (UA) July 25, 2019 2:50pm Negative Negative * [facility], [address] [place] [address] [facility] [address] Urine Ketones July 25, 2019 2:50pm Negative Negative * [facility], [address] [place] [address] [facility] [address] Urine Occult Blood July 25, 2019 2:50pm Negative Negative * [facility], [address] [place] [address] [facility] [address] Urine Nitrite July 25, 2019 2:50pm Negative Negative [facility], [address] [place] [address] [facility] [address] Urine Bilirubin July 25, 2019 2:50pm Negative Negative [facility], [address] [place] [address] [place] [facility] [place] [address] Urine Urobilinogen July 25, 2019 2:50pm Negative 0.0-1.0 [facility], [address] [place] [address] [facility] [place] [address] Urine Leukocyte Esterase July 25, 2019 2:50pm Negative Negative [facility], [address] [place] [address] [facility] [place] [address] Microscopic Urinalysis (T) July 25, 2019 2:50pm ----- [facility], [address] [place] [address] [place] [place] [address] Urine RBC July 25, 2019 2:50pm 0-2 0-2 [facility], [address] [place] [address] [place] [facility] [place] [address] Urine WBC July 25, 2019 2:50pm 6-20 0-5 [facility], [address] [place] [address] [employer] [facility] [place] [address] Urine Epithelial Cells July 25, 2019 2:50pm Many Few [facility], [address] [place] [address] [employer] [place] [facility] [place] [address] Urine Crystals July 25, 2019 2:50pm Present None * [facility], [address] [place] [address] [employer] [facility] [place] [address] Urine Calcium Oxalate Crystals July 25, 2019 2:50pm Many None * [facility], [address] [place] [address] [employer] [place] [facility] [place] [address] Urine Uric Acid Crystals July 25, 2019 2:50pm None * MUCUS THREAD SEEN [facility], [address] [place] [address] [employer] [place] [facility] [place] [address] Urine Bacteria July 25, 2019 2:50pm Few None [facility], [address] [place] [address] [place] [facility] [place] [address] Urine Casts July 25, 2019 2:50pm None Seen None * [facility], [address] [place] [address] [employer] [facility] [place] [address] Urine Yeast July 25, 2019 2:50pm None Seen None [facility], [address] [place] [address] [employer] [place] [facility] [place] [address] Urinalysis Comment July 25, 2019 2:50pm * * Ref Range=* Clinical evaluation required. [facility], [address] [place] [address] [employer] [facility] [place] [address] Urine Culture Indicated July 25, 2019 2:50pm To follow [facility], [place] [address] Sodium Level July 25, 2019 2:10pm 140 136-145 [facility], [facility] [place] [address] Potassium Level July 25, 2019 2:10pm 3.6 3.5-5.1 [facility], [facility] [address] Chloride Level July 25, 2019 2:10pm 106 98-107 [facility], [facility] [place] [address] Carbon Dioxide Level July 25, 2019 2:10pm 24 22-29 [facility], [facility] [address] Anion Gap July 25, 2019 2:10pm 14 8-18 [facility], [place] [address] Blood Urea Nitrogen July 25, 2019 2:10pm 5 7-19 [facility], [place] [address] Creatinine July 25, 2019 2:10pm 0.6 0.6-1.1 [facility], [place] [address] Estimat Glomerular Filtration Rate July 25, 2019 2:10pm 133 90-142 Stages of Patients with Estimated GFR Known Kidney Disease (ml/min/1.73 sq.meters)Stage 1 - Kidney damage w/normal 90 mL/min or greater or increased GFRStage 2 - Kidney disease w/mildly 60-89 mL/min decreased GFRStage 3 - Moderately decreased GFR 30-59 mL/minStage 4 - Severely decreased GFR 15-29 mL/minStage 5 - Kidney failure 14 mL/min or lessTo estimate the GFR for Americans, multiply the result provided by 1.21. [facility], [facility] [address] BUN/Creatinine Ratio July 25, 2019 2:10pm 8 [facility], [facility] [place] [address] Glucose Level July 25, 2019 2:10pm 94 60-100 [facility], [facility] [place] [address] Calculated Osmolality July 25, 2019 2:10pm 276 [facility], [address] [place] [address] Calcium Level July 25, 2019 2:10pm 9.5 8.4-10.2 [facility], [address] [place] [address] [place] [address] Total Bilirubin July 25, 2019 2:10pm 1.0 0.2-1.2 [facility], [address] [place] [address] [place] [address] Direct Bilirubin May 18, 2016 11:00am 0.3 0.0-0.2 [facility], [address] [place] [address] Aspartate Amino Transf (AST/SGOT) July 25, 2019 2:10pm 22 5-34 [facility], [address] [place] [address] Alanine Aminotransferase (ALT/SGPT) July 25, 2019 2:10pm 13 0-55 [facility], [address] [place] [address] Total Protein July 25, 2019 2:10pm 7.4 6.4-8.3 [facility], [address] [place] [address] Albumin July 25, 2019 2:10pm 4.6 3.5-5.0 [facility], [address] [place] [address] [place] [address] Globulin July 25, 2019 2:10pm 2.8 [facility], [address] [place] [address] [place] [address] Albumin/Globulin Ratio July 25, 2019 2:10pm 1.6 [facility], [address] [place] [address] Alkaline Phosphatase July 25, 2019 2:10pm 111 40-150 [facility], [address] [place] [address] Urine Methamphetamines Screen May 18, 2016 12:55pm Negative Polutf=6374 [facility], [address] [place] [address] [facility] [address] Urine Propoxyphene Screen May 18, 2016 12:55pm Negative Sqfaap=610 [facility], [address] [place] [address] [facility] [address] Urine Amphetamines Screen May 18, 2016 12:55pm Negative Ivlhzs=8470 [facility], [address] [place], [place] [address] [place] [address] Urine Barbiturates Screen May 18, 2016 12:55pm Negative Jeyefz=742 [facility], [facility] [place] [facility] [place] [address] Urine Benzodiazepines Screen May 18, 2016 12:55pm Positive Fdteof=517 [facility], [facility] [facility] [place] [address] Urine Methylenedioxymethamphetamine May 18, 2016 12:55pm Negative Maaxlj=187 [facility], [address] [place] [address] [facility] [place] [address] Urine Cocaine Screen May 18, 2016 12:55pm Negative Wdnfhg=553 [facility], [facility] [place] [facility] [place] [address] Urine Methadone, Qualitative May 18, 2016 12:55pm Negative Pchlfl=110 [facility], [facility] [address] [employer] [facility] [place] [address] Urine Opiates Screen May 18, 2016 12:55pm Positive Casora=854 [facility], [address] [place] [address] [employer] [place] [facility] [place] [address] Urine Phencyclidine Screen May 18, 2016 12:55pm Negative Cutoff=25 [facility], [facility] [address] [employer] [place] [facility] [place] [address] Urine Cannabinoids May 18, 2016 12:55pm Positive Cutoff=50 [facility], [address] [place] [address] [employer] [place] [facility] [place] [address] Ur Tricyclic Antidepressants Screen May 18, 2016 12:55pm Negative Usexdy=1574 [facility], [address] [place] [address] [employer] [place] [facility] [place] [address] Urine Oxycodone Screen May 18, 2016 12:55pm Negative Uuxvxf=022 [facility], [address] [place] [address] [facility] [place] [address] Urine Specific [place] May 18, 2016 12:55pm 1.011 1.005-1.030 [facility], [address] [place] [address] [employer] [place] [facility] [place] [address] Urine pH May 18, 2016 12:55pm 7.5 4.5-8.0 [facility], [address] [place] [address] [employer] [place] [facility] [place] [address] Urine Drug Screen Comment May 18, 2016 12:55pm See Note If pH is <4.0 or >9.0, then specimen is suspicious of alteration.This qualitative screening test is intended for patient care purposes only. Positive analytes may be confirmed through reference lab testing if medically necessary. [facility], [address] [facility] [place] [address] Bedside Lactic Acid Venous July 25, 2019 2:10pm 1.21 0.50-2.20 [facility], [address] [facility] [place] [address] Microbiology Results Procedure Source Result Collection Date/Time Result Date/Time Result Comment Performing Site Blood Culture Blood, Peripheral Blood Draw No growth in 5 days July 10, 2019 10:00am July 15, 2019 3:28pm [facility], [address] [place] [address] Diagnostic Imaging Reports Report Dictated Date/Time Dictated By Status Chest X-Ray May 18, 2016 11:24am SOHAM PASCAL III, MD completed HISTORY: sickle cell. . Sickle cell crisis with chest pain. COMPARISON: None. TECHNIQUE: Portable chest 1 view FINDINGS: There is bibasilar atelectasis, left worse than right. The cardiomediastinal silhouette is normal. There is no pleural effusion or pneumothorax. The bones are intact. IMPRESSION: Mild bibasilar atelectasis. Dictated By: SOHAM PASCAL III, MD Date Dictated: 05/18/16 1124 Signed by: SOHAM PASCAL III, MD Date Signed: 05/18/16 112 Chest X-Ray July 09, 2019 3:02am JOSE GUTIERREZ MD completed Chest one view, 07/09/2019, 0252 hours HISTORY: Sickle cell crisis. Tachycardia. TECHNIQUE: AP COMPARISON: 06/05/2019 FINDINGS: Lung volumes are mild to moderately shallow with crowding of cardiovascular markings. There is no CHF. Lung slater are clear. There are some sclerotic areas involving the bilateral humeral heads likely related to some avascular necrosis. Thoracic endplate scalloping deformities are also evident.. Subphrenic compartment is maintained. IMPRESSION: 1. Stable/improved exam. 2. Bony findings of sickle cell disease. Dictated By: JOSE GUTIERREZ MD Date Dictated: 07/09/19 0302 Signed by: JOSE GUTIERREZ MD Date Signed: 07/09/19 030 Chest X-Ray July 25, 2019 2:25pm LIZZETH MOSES MD completed EXAM: Chest 2 views HISTORY: Acute chest syndrome, sickle cell COMPARISON: 07/09/2019 FINDINGS AND IMPRESSION: Patchy streaky opacities are noted within the left lower lobe which may re present underlying pneumonia or atelectasis. No pleural effusion or pulmonary edema is noted. The cardiac silhouette is normal in size. Dictated By: LIZZETH MOSES MD Date Dictated: 07/25/19 142 Signed by: LIZZETH MOSES MD Date Signed: 07/25/191426 Health Concerns No known health concerns documented Advance Directives Advance Directive Response Recorded Date/Time Does the Patient have an Advance Directive? No July 25, 2019 1:12pm Chief Complaint and Reason for Visit Chief Complaint Sickle Cell Crisis Reason for Visit [id number] Encounters Encounter Location(s) Arrival/Admit Date Discharge/Depart Date Provider(s) Departed Emergency Room [facility] July 25, 2019 1:03pm July 25, 2019 6:50pm SARAH LEDBETTER MD Discharged Inpatient [facility] July 09, 2019 3:39am July 12, 2019 3:25pm KEELY GASPAR MD Discharged Inpatient [facility] May 18, 2016 1:36pm May 22, 2016 11:13am SOLITARIO CASTELLANOS MD Assessments No Assessments Information Available Functional Status Observation Response Date Recorded Onset Within the Last 7 Days No Problem Identified July 25, 2019 1:12pm Decline in ADL July 25, 2019 1:12pm Goals No Goals Information Available Immunizations No Immunization Information Available Mental Status No Mental Status Information Available Medical Equipment No Medical Equipment Information available Insurance Providers Guarantor Tere Jack Address [address] [place] [id number] Contact Info. Home Phone: Payer Policy Id Coverage Id Subscriber's Name Subscriber Id Effective Date Expiration Date [facility] [id number] Tere Graves [id number] 2017 Plan of Treatment 1. The examination and treatment that you have received has been on an emergency basis only and is not intended as an effort to provide complete medical care. It is impossible to recognize and treat all elements of an illness or injury in a single ER visit. 2. Thank you for allowing us to provide emergent medical care to you or your family member. We consider it a privilege to have served you during your illness or injury. 3. If you have received a prescription, please fill it TODAY and follow the instructions carefully. 4. Return to the ER for worsening symptoms. 5. Follow up with [facility] as scheduled on 08/05/19. Future Tests Future scheduled test information is unavailable Pending Tests Test Name Date ordered Blood Culture July 09, 2019 3:12am Urine Culture July 25, 2019 2:50pm Future Visits Future appointment information is unavailable Referrals to Other Providers Reason for Referral Referral Start Date Provider Provider Contact Information Provider Address [place], [facility] Future Procedures Future procedure information is unavailable Future Medications Future medication information is unavailable Patient Instructions Sickle Cell Disease (DC) Community-Acquired Pneumonia, Adult (DC) Social History Smoking Status Status Date of Observation Never smoked tobacco (finding) July 25, 2019 1:57pm Observation Status Observation Response Date of Response Hx Tobacco Use No July 25, 2019 1:57pm Assigned Sex Female Vital Signs Vital Reading Result Reference Range Collection Date/Time Body Temperature 98.7 [degF] (97.6 - 99.5) July 25, 2019 7:28pm Heart Rate 97 /min (60 - 100) July 25, 2019 1:13pm Heart Rate 101 /min July 25, 2019 7:28pm Respiratory rate 16 /min (12 - 24) July 25, 2019 1:13pm Respiratory rate 16 /min July 25, 2019 7:28pm BP Systolic 113 mm[Hg] (100 - 140) July 25, 2019 1:13pm BP Systolic 122 mm[Hg] July 25, 2019 7:28pm BP Diastolic 64 mm[Hg] (60 - 90) July 25, 2019 1:13pm BP Diastolic 63 mm[Hg] July 25, 2019 7:28pm Weight 125 [lb_av] July 25, 2019 1:13pm BMI (Body Mass Index) 21.5 kg/m2 July 25, 2019 1:13pm
--- OUTSIDE RECORDS SUMMARY | 2019-12-31 13:13 | XMS REPORT ---
Author Author [facility] Address Unknown Phone Unavailable Care Team Providers Care Surgery Technician Name Role Phone Karlie CRUZ Unavailable Unavailable MATT HASKINS Unavailable Unavailable XIMENA STALLINGS Unavailable Unavailable RIN ESPOSITO Unavailable Unavailable ROLANDA AVILA Unavailable Unavailable Nelida HORNE Unavailable Unavailable Анна BEAL Unavailable Unavailable SHAR BAY Unavailable Unavailable DC HILLIARD Unavailable Unavailable EVER OLSEN Unavailable Unavailable BUFFY FLORES Unavailable Unavailable MATT COBIAN Unavailable Unavailable Анна JJ Unavailable Unavailable GAMALKAREN Higgins Unavailable Unavailable BILL REN Unavailable Unavailable ENEDINA PHELPS Unavailable Unavailable CHEN SHEPHERD Unavailable Unavailable JACEK SENA Unavailable Unavailable Problems This patient has no known problems. Allergies, Adverse Reactions, Alerts This patient has no known allergies or adverse reactions. Medications This patient has no known medications. Encounters Start Date/Time End Date/Time Encounter Type Admission Type Attending [facility] Care Department Encounter ID 2017-11-10 15:25:02 Inpatient [facility] [id number] 2017-11-09 16:41:26 Inpatient [facility] [id number] 2017-11-08 14:02:58 Inpatient [facility] [id number] 2017-11-07 10:48:26 Inpatient [facility] [id number] 2017-11-05 21:25:29 Inpatient [facility] [id number] 2017-11-05 13:50:24 Inpatient [facility] [id number] 2019-10-06 11:39:00 2019-10-06 09:15:00 Inpatient [facility] [id number] 2017-11-12 14:50:04 2017-11-12 00:00:00 Inpatient [facility] [id number] 2017-11-09 00:00:00 2017-11-09 00:00:00 Outpatient [facility] [id number] 2017-11-08 14:05:30 2017-11-08 00:00:00 Inpatient [facility] [id number] 2017-11-05 06:30:40 2017-11-05 06:30:40 Inpatient [facility] [id number] 2017-11-05 19:37:38 2017-11-05 00:00:00 Inpatient [facility] [id number] 2017-08-04 16:22:16 2017-08-04 16:22:16 Emergency [facility] [id number] 2017-08-04 14:03:22 2017-08-04 14:03:22 Inpatient [facility] [id number] Results Test Description Test Time Test Comments Text Results Atomic Results Result Comments PHOSPHORUS 2019-12-16 07:16:00 PHOSPHORUS (BEAKER) (test xnqe=113) 3.1 mg/dL 2.3-4.7 Poker Dealer ID Cece CHOUDHURY [id number] 07:16:00* Test Item Value Reference Range Comments MAGNESIUM (BEAKER) (test xile=626) 2.0 mg/dL 1.6-2.6 Poker Dealer ELTON CHOUDHURY FBASIC METABOLIC [id number] 07:16:00* Test Item Value Reference Range Comments SODIUM (BEAKER) (test vuzk=283) 140 meq/L 136-145 POTASSIUM (BEAKER) (test qroi=611) 4.1 meq/L 3.5-5.1 CHLORIDE (BEAKER) (test oofy=739) 108 meq/L 98-107 CO2 (BEAKER) (test wwha=360) 28 meq/L 22-29 BLOOD UREA NITROGEN (BEAKER) (test ddzm=329) 4 mg/dL 7-21 CREATININE (BEAKER) (test upbp=856) 0.57 mg/dL 0.57-1.25 GLUCOSE RANDOM (BEAKER) (test infr=599) 81 mg/dL 70-105 CALCIUM (BEAKER) (test jcdp=705) 8.6 mg/dL 8.4-10.2 EGFR (BEAKER) (test mqya=6884) 159 mL/min/1.73 sq m ESTIMATED GFR IS NOT ACCURATE CREATININE CLEARANCE IN PREDICTING GLOMERULAR FILTRATION RATE. ESTIMATED GFR IS NOT APPLICABLE FOR DIALYSIS PATIENTS. Poker Dealer ELTON CHOUDHURY FCBC W/PLT COUNT & AUTO [id number] 06:45:00* Test Item Value Reference Range Comments WHITE BLOOD CELL COUNT (BEAKER) (test vuuf=919) 9.6 K/ L 3.5-10.5 RED BLOOD CELL COUNT (BEAKER) (test oqdx=704) 3.12 M/ L 3.93-5.22 HEMOGLOBIN (BEAKER) (test xwzl=822) 7.3 GM/DL 11.2-15.7 HEMATOCRIT (BEAKER) (test nxnf=692) 23.1 % 34.1-44.9 MEAN CORPUSCULAR VOLUME (BEAKER) (test ypsq=315) 74.0 fL 79.4-94.8 MEAN CORPUSCULAR HEMOGLOBIN (BEAKER) (test gppi=745) 23.4 pg 25.6-32.2 MEAN CORPUSCULAR HEMOGLOBIN CONC (BEAKER) (test lmba=314) 31.6 GM/DL 32.2-35.5 RED CELL DISTRIBUTION WIDTH (BEAKER) (test iuds=415) 19.0 % 11.7-14.4 PLATELET COUNT (BEAKER) (test vxgm=233) 222 K/CU MM 150-450 MEAN PLATELET VOLUME (BEAKER) (test fcdd=629) 10.1 fL 9.4-12.3 NUCLEATED RED BLOOD CELLS (BEAKER) (test aizm=174) 1 /100 WBC 0-0 NEUTROPHILS RELATIVE PERCENT (BEAKER) (test qpuv=258) 58 % LYMPHOCYTES RELATIVE PERCENT (BEAKER) (test qchw=249) 24 % MONOCYTES RELATIVE PERCENT (BEAKER) (test xzvc=196) 12 % EOSINOPHILS RELATIVE PERCENT (BEAKER) (test bbvx=924) 5 % BASOPHILS RELATIVE PERCENT (BEAKER) (test nfkp=145) 1 % NEUTROPHILS ABSOLUTE COUNT (BEAKER) (test yrep=257) 5.53 K/ L 1.56-6.13 LYMPHOCYTES ABSOLUTE COUNT (BEAKER) (test gilk=141) 2.29 K/ L 1.18-3.74 MONOCYTES ABSOLUTE COUNT (BEAKER) (test hshy=497) 1.12 K/ L 0.24-0.36 EOSINOPHILS ABSOLUTE COUNT (BEAKER) (test fmrk=124) 0.52 K/ L 0.04-0.36 BASOPHILS ABSOLUTE COUNT (BEAKER) (test ticr=839) 0.13 K/ L 0.01-0.08 IMMATURE GRANULOCYTES-RELATIVE PERCENT (BEAKER) (test cgce=5082) 0 % 0-1 CALCIUM, [id number] 06:16:00* Test Item Value Reference Range Comments CALCIUM IONIZED (BEAKER) (test dwfl=602) 1.15 mmol/L 1.12-1.27 PH, BLOOD (BEAKER) (test gsgf=9515) 7.38 [id number] 06:58:00* Test Item Value Reference Range Comments PHOSPHORUS (BEAKER) (test vuta=251) 3.4 mg/dL 2.3-4.7 Poker Dealer ID Cece CHOUDHURY [id number] 06:58:00* Test Item Value Reference Range Comments MAGNESIUM (BEAKER) (test ylwf=337) 1.9 mg/dL 1.6-2.6 Poker Dealer ID Cece CHOUDHURY FBASIC METABOLIC [id number] 06:58:00* Test Item Value Reference Range Comments SODIUM (BEAKER) (test nmar=717) 140 meq/L 136-145 POTASSIUM (BEAKER) (test ddis=496) 3.9 meq/L 3.5-5.1 CHLORIDE (BEAKER) (test armn=415) 107 meq/L 98-107 CO2 (BEAKER) (test izre=782) 28 meq/L 22-29 BLOOD UREA NITROGEN (BEAKER) (test kuwu=396) 8 mg/dL 7-21 CREATININE (BEAKER) (test reat=042) 0.62 mg/dL 0.57-1.25 GLUCOSE RANDOM (BEAKER) (test bxwz=181) 98 mg/dL 70-105 CALCIUM (BEAKER) (test tmdi=469) 8.8 mg/dL 8.4-10.2 EGFR (BEAKER) (test vuzd=4807) 145 mL/min/1.73 sq m ESTIMATED GFR IS NOT ACCURATE CREATININE CLEARANCE IN PREDICTING GLOMERULAR FILTRATION RATE. ESTIMATED GFR IS NOT APPLICABLE FOR DIALYSIS PATIENTS. Poker Dealer ID Cece CHOUDHURY EPATIC FUNCTION [id number] 06:58:00* Test Item Value Reference Range Comments TOTAL PROTEIN (BEAKER) (test yfan=543) 6.2 gm/dL 6.0-8.3 ALBUMIN (BEAKER) (test ohaf=7367) 3.9 g/dL 3.5-5.0 BILIRUBIN TOTAL (BEAKER) (test vpij=040) 0.7 mg/dL 0.2-1.2 BILIRUBIN DIRECT (BEAKER) (test gerk=957) 0.3 mg/dL 0.1-0.5 ALKALINE PHOSPHATASE (BEAKER) (test dzjs=009) 62 U/L 40-150 AST (SGOT) (BEAKER) (test zdgl=109) 16 U/L 5-34 ALT (SGPT) (BEAKER) (test nblw=519) 9 U/L 6-55 Poker Dealer [facility] FCBC W/PLT COUNT & AUTO [id number] 06:49:00* Test Item Value Reference Range Comments WHITE BLOOD CELL COUNT (BEAKER) (test davq=843) 8.7 K/ L 3.5-10.5 RED BLOOD CELL COUNT (BEAKER) (test gqri=671) 3.25 M/ L 3.93-5.22 HEMOGLOBIN (BEAKER) (test uqfi=104) 7.6 GM/DL 11.2-15.7 HEMATOCRIT (BEAKER) (test tqch=769) 24.0 % 34.1-44.9 MEAN CORPUSCULAR VOLUME (BEAKER) (test gdqf=454) 73.8 fL 79.4-94.8 MEAN CORPUSCULAR HEMOGLOBIN (BEAKER) (test nlvw=767) 23.4 pg 25.6-32.2 MEAN CORPUSCULAR HEMOGLOBIN CONC (BEAKER) (test jezd=986) 31.7 GM/DL 32.2-35.5 RED CELL DISTRIBUTION WIDTH (BEAKER) (test acyf=553) 19.2 % 11.7-14.4 PLATELET COUNT (BEAKER) (test tyyd=590) 217 K/CU MM 150-450 MEAN PLATELET VOLUME (BEAKER) (test lkti=786) 9.5 fL 9.4-12.3 NUCLEATED RED BLOOD CELLS (BEAKER) (test ddrt=783) 1 /100 WBC 0-0 NEUTROPHILS RELATIVE PERCENT (BEAKER) (test gdvh=826) 54 % LYMPHOCYTES RELATIVE PERCENT (BEAKER) (test iomn=703) 28 % MONOCYTES RELATIVE PERCENT (BEAKER) (test qpwh=158) 11 % EOSINOPHILS RELATIVE PERCENT (BEAKER) (test zrbt=636) 5 % BASOPHILS RELATIVE PERCENT (BEAKER) (test sjuq=191) 1 % NEUTROPHILS ABSOLUTE COUNT (BEAKER) (test eygo=551) 4.73 K/ L 1.56-6.13 LYMPHOCYTES ABSOLUTE COUNT (BEAKER) (test dwzh=544) 2.40 K/ L 1.18-3.74 MONOCYTES ABSOLUTE COUNT (BEAKER) (test ducm=830) 0.99 K/ L 0.24-0.36 EOSINOPHILS ABSOLUTE COUNT (BEAKER) (test uhgj=876) 0.45 K/ L 0.04-0.36 BASOPHILS ABSOLUTE COUNT (BEAKER) (test usfd=835) 0.10 K/ L 0.01-0.08 IMMATURE GRANULOCYTES-RELATIVE PERCENT (BEAKER) (test zmbs=6330) 0 % 0-1 CALCIUM, [id number] 06:33:00* Test Item Value Reference Range Comments CALCIUM IONIZED (BEAKER) (test wszz=708) 1.11 mmol/L 1.12-1.27 PH, BLOOD (BEAKER) (test jzxs=4855) 7.41 [id number] 05:08:00* Test Item Value Reference Range Comments PHOSPHORUS (BEAKER) (test piry=665) 3.4 mg/dL 2.3-4.7 Poker Dealer ID - RASHI [id number] 05:08:00* Test Item Value Reference Range Comments MAGNESIUM (BEAKER) (test vcmh=859) 2.1 mg/dL 1.6-2.6 Poker Dealer ID - RASHI MBASIC METABOLIC [id number] 05:08:00* Test Item Value Reference Range Comments SODIUM (BEAKER) (test brvt=450) 140 meq/L 136-145 POTASSIUM (BEAKER) (test ovyf=309) 4.1 meq/L 3.5-5.1 CHLORIDE (BEAKER) (test xhfx=815) 109 meq/L 98-107 CO2 (BEAKER) (test ojkn=297) 26 meq/L 22-29 BLOOD UREA NITROGEN (BEAKER) (test mkhj=553) 4 mg/dL 7-21 CREATININE (BEAKER) (test viid=687) 0.55 mg/dL 0.57-1.25 GLUCOSE RANDOM (BEAKER) (test fxgw=423) 86 mg/dL 70-105 CALCIUM (BEAKER) (test qhml=210) 8.6 mg/dL 8.4-10.2 EGFR (BEAKER) (test towy=2990) 166 mL/min/1.73 sq m ESTIMATED GFR IS NOT ACCURATE CREATININE CLEARANCE IN PREDICTING GLOMERULAR FILTRATION RATE. ESTIMATED GFR IS NOT APPLICABLE FOR DIALYSIS PATIENTS. Poker Dealer ID - RASHI EPATIC FUNCTION [id number] 05:08:00* Test Item Value Reference Range Comments TOTAL PROTEIN (BEAKER) (test jgqp=625) 5.8 gm/dL 6.0-8.3 ALBUMIN (BEAKER) (test enhg=2647) 3.7 g/dL 3.5-5.0 BILIRUBIN TOTAL (BEAKER) (test kdhl=960) 0.6 mg/dL 0.2-1.2 BILIRUBIN DIRECT (BEAKER) (test okio=240) 0.3 mg/dL 0.1-0.5 ALKALINE PHOSPHATASE (BEAKER) (test gfzt=420) 58 U/L 40-150 AST (SGOT) (BEAKER) (test qatf=540) 14 U/L 5-34 ALT (SGPT) (BEAKER) (test djgo=891) 8 U/L 6-55 Poker Dealer ID - RASHI MCBC W/PLT COUNT & AUTO [id number] 04:56:00* Test Item Value Reference Range Comments WHITE BLOOD CELL COUNT (BEAKER) (test mfjo=337) 7.7 K/ L 3.5-10.5 RED BLOOD CELL COUNT (BEAKER) (test siyy=769) 3.15 M/ L 3.93-5.22 HEMOGLOBIN (BEAKER) (test cpsb=222) 7.4 GM/DL 11.2-15.7 HEMATOCRIT (BEAKER) (test vguv=086) 23.5 % 34.1-44.9 MEAN CORPUSCULAR VOLUME (BEAKER) (test fzbx=148) 74.6 fL 79.4-94.8 MEAN CORPUSCULAR HEMOGLOBIN (BEAKER) (test astv=858) 23.5 pg 25.6-32.2 MEAN CORPUSCULAR HEMOGLOBIN CONC (BEAKER) (test kegr=631) 31.5 GM/DL 32.2-35.5 RED CELL DISTRIBUTION WIDTH (BEAKER) (test dqor=049) 19.8 % 11.7-14.4 PLATELET COUNT (BEAKER) (test sevn=117) 205 K/CU MM 150-450 MEAN PLATELET VOLUME (BEAKER) (test awmd=493) 10.2 fL 9.4-12.3 NUCLEATED RED BLOOD CELLS (BEAKER) (test hsbf=821) 1 /100 WBC 0-0 NEUTROPHILS RELATIVE PERCENT (BEAKER) (test iwrn=316) 53 % LYMPHOCYTES RELATIVE PERCENT (BEAKER) (test bqgq=998) 28 % MONOCYTES RELATIVE PERCENT (BEAKER) (test vwyc=375) 12 % EOSINOPHILS RELATIVE PERCENT (BEAKER) (test rgus=738) 6 % BASOPHILS RELATIVE PERCENT (BEAKER) (test iznt=700) 1 % NEUTROPHILS ABSOLUTE COUNT (BEAKER) (test hghe=115) 4.10 K/ L 1.56-6.13 LYMPHOCYTES ABSOLUTE COUNT (BEAKER) (test gqmn=097) 2.16 K/ L 1.18-3.74 MONOCYTES ABSOLUTE COUNT (BEAKER) (test pxkm=394) 0.90 K/ L 0.24-0.36 EOSINOPHILS ABSOLUTE COUNT (BEAKER) (test vndv=209) 0.44 K/ L 0.04-0.36 BASOPHILS ABSOLUTE COUNT (BEAKER) (test vurj=358) 0.06 K/ L 0.01-0.08 IMMATURE GRANULOCYTES-RELATIVE PERCENT (BEAKER) (test nzgv=7231) 0 % 0-1 CALCIUM, [id number] 04:29:00* Test Item Value Reference Range Comments CALCIUM IONIZED (BEAKER) (test blbe=495) 1.12 mmol/L 1.12-1.27 PH, BLOOD (BEAKER) (test vjeb=9469) 7.42 CBC W/PLT COUNT & AUTO [id number] 05:46:00* Test Item Value Reference Range Comments WHITE BLOOD CELL COUNT (BEAKER) (test tyio=273) 11.7 K/ L 3.5-10.5 RED BLOOD CELL COUNT (BEAKER) (test vrrv=291) 3.12 M/ L 3.93-5.22 HEMOGLOBIN (BEAKER) (test cecd=796) 7.2 GM/DL 11.2-15.7 HEMATOCRIT (BEAKER) (test mfyd=394) 22.9 % 34.1-44.9 MEAN CORPUSCULAR VOLUME (BEAKER) (test bccg=820) 73.4 fL 79.4-94.8 MEAN CORPUSCULAR HEMOGLOBIN (BEAKER) (test sctm=630) 23.1 pg 25.6-32.2 MEAN CORPUSCULAR HEMOGLOBIN CONC (BEAKER) (test rydb=085) 31.4 GM/DL 32.2-35.5 RED CELL DISTRIBUTION WIDTH (BEAKER) (test ucay=402) 19.9 % 11.7-14.4 PLATELET COUNT (BEAKER) (test mqqr=406) 198 K/CU MM 150-450 MEAN PLATELET VOLUME (BEAKER) (test jgjo=982) 9.9 fL 9.4-12.3 NUCLEATED RED BLOOD CELLS (BEAKER) (test afsm=923) 1 /100 WBC 0-0 NEUTROPHILS RELATIVE PERCENT (BEAKER) (test unhz=996) 67 % LYMPHOCYTES RELATIVE PERCENT (BEAKER) (test gqcf=793) 17 % MONOCYTES RELATIVE PERCENT (BEAKER) (test whos=049) 10 % EOSINOPHILS RELATIVE PERCENT (BEAKER) (test lcps=650) 5 % BASOPHILS RELATIVE PERCENT (BEAKER) (test bzvy=946) 1 % NEUTROPHILS ABSOLUTE COUNT (BEAKER) (test ifxv=175) 7.83 K/ L 1.56-6.13 LYMPHOCYTES ABSOLUTE COUNT (BEAKER) (test gjcr=337) 1.99 K/ L 1.18-3.74 MONOCYTES ABSOLUTE COUNT (BEAKER) (test viyf=139) 1.22 K/ L 0.24-0.36 EOSINOPHILS ABSOLUTE COUNT (BEAKER) (test cyqf=036) 0.56 K/ L 0.04-0.36 BASOPHILS ABSOLUTE COUNT (BEAKER) (test rnjl=651) 0.07 K/ L 0.01-0.08 IMMATURE GRANULOCYTES-RELATIVE PERCENT (BEAKER) (test kpzn=1246) 1 % 0-1 [id number] 05:43:00* Test Item Value Reference Range Comments MAGNESIUM (BEAKER) (test taml=768) 2.3 mg/dL 1.6-2.6 Poker Dealer ID - RASHI MBASIC METABOLIC [id number] 05:43:00* Test Item Value Reference Range Comments SODIUM (BEAKER) (test nxqv=593) 140 meq/L 136-145 POTASSIUM (BEAKER) (test amrq=448) 3.8 meq/L 3.5-5.1 CHLORIDE (BEAKER) (test scfz=834) 110 meq/L 98-107 CO2 (BEAKER) (test tscj=474) 24 meq/L 22-29 BLOOD UREA NITROGEN (BEAKER) (test covr=661) 6 mg/dL 7-21 CREATININE (BEAKER) (test liwg=293) 0.55 mg/dL 0.57-1.25 GLUCOSE RANDOM (BEAKER) (test bjhj=215) 114 mg/dL 70-105 CALCIUM (BEAKER) (test jrfs=968) 8.4 mg/dL 8.4-10.2 EGFR (BEAKER) (test dvgy=6796) 166 mL/min/1.73 sq m ESTIMATED GFR IS NOT ACCURATE CREATININE CLEARANCE IN PREDICTING GLOMERULAR FILTRATION RATE. ESTIMATED GFR IS NOT APPLICABLE FOR DIALYSIS PATIENTS. Poker Dealer ID - RASHI EPATIC FUNCTION [id number] 05:43:00* Test Item Value Reference Range Comments TOTAL PROTEIN (BEAKER) (test dogw=904) 6.0 gm/dL 6.0-8.3 ALBUMIN (BEAKER) (test wumc=6361) 3.8 g/dL 3.5-5.0 BILIRUBIN TOTAL (BEAKER) (test hlbz=102) 0.6 mg/dL 0.2-1.2 BILIRUBIN DIRECT (BEAKER) (test ahiq=492) 0.3 mg/dL 0.1-0.5 ALKALINE PHOSPHATASE (BEAKER) (test pgnz=756) 54 U/L 40-150 AST (SGOT) (BEAKER) (test rwoi=256) 19 U/L 5-34 ALT (SGPT) (BEAKER) (test kbmp=966) 10 U/L 6-55 Poker Dealer ID - RASHI MRAD, CHEST, 1 VIEW, NON [id number] 23:14:00Reason for exam:->SICKLE CELL PAIN CRISISShould this be performed at the bedside?->YesFINAL REPORT Chest one view. Clinical history: SICKLE CELL PAIN CRISIS Comparison: Chest radiograph 11/14/2019. Technique: A single frontal view of the chest was obtained. Findings: The cardiomediastinal contours are normal. There is mild linear atelectasis and scarring in the left lung base. Th ere is no focal pulmonary consolidation, pleural effusion, pneumothorax or pulmo nary edema. There are bony changes of sickle cell disease. Impression:Mild left basilar linear atelectasis/scarring. No focal pulmonary consolidation. Sig sarai: Amuta, Pietro MDReport Verified Date/Time: 12/12/2019 23:14:19 Electro nically signed by: PIETRO WEBB MD on 12/12/2019 11:14 PM URINALYSIS W/ REFLEX URINE [id number] 16:48:00* Test Item Value Reference Range Comments COLOR (BEAKER) (test tlhk=059) Light Yellow CLARITY (BEAKER) (test rkyf=346) Hazy SPECIFIC GRAVITY UA (BEAKER) (test tdhy=376) 1.010 1.001-1.035 PH UA (BEAKER) (test pmrb=057) 6.5 5.0-8.0 PROTEIN UA (BEAKER) (test iiqa=489) Negative Negative GLUCOSE UA (BEAKER) (test gokx=548) Negative Negative KETONES UA (BEAKER) (test lowz=047) Negative Negative BILIRUBIN UA (BEAKER) (test ahca=597) Negative Negative BLOOD UA (BEAKER) (test dcct=924) Negative Negative NITRITE UA (BEAKER) (test riuu=938) Negative Negative LEUKOCYTE ESTERASE UA (BEAKER) (test oxtg=800) Negative Negative UROBILINOGEN UA (BEAKER) (test xlzz=588) 0.2 mg/dL 0.2-1.0 RBC UA (BEAKER) (test jawr=791) 0 /HPF WBC UA (BEAKER) (test wbgx=907) < /HPF MUCUS (BEAKER) (test vuic=8095) Rare SQUAMOUS EPITHELIAL (BEAKER) (test lxbb=429) 8 /HPF SOURCE(BEAKER) (test jwxy=0133) Poker Dealer ID - [auto]Poker Dealer ID - hankPREGNANCY SCREEN, [id number] 16:47:00 * Test Item Value Reference Range Comments TEST URINE (BEAKER) (test tani=082) Negative LACTATE DEHYDROGENASE (LDH)2019-12-12 16:40:00* Test Item Value Reference Range Comments LACTATE DEHYDROGENASE (BEAKER) (test vglo=752) 465 U/L 125-220 Specimen moderately hemolyzed Poker Dealer ID - [id number] 16:33:00* Test Item Value Reference Range Comments LIPASE (BEAKER) (test lhyz=557) 7 U/L 8-78 Poker Dealer ID - BSBASIC METABOLIC [id number] 16:33:00* Test Item Value Reference Range Comments SODIUM (BEAKER) (test bzow=587) 139 meq/L 136-145 POTASSIUM (BEAKER) (test djrv=095) 4.6 meq/L 3.5-5.1 Specimen moderately hemolyzed CHLORIDE (BEAKER) (test gofw=291) 106 meq/L 98-107 CO2 (BEAKER) (test xerg=642) 24 meq/L 22-29 BLOOD UREA NITROGEN (BEAKER) (test vucr=589) 7 mg/dL 7-21 CREATININE (BEAKER) (test pxew=569) 0.59 mg/dL 0.57-1.25 Specimen moderately hemolyzed GLUCOSE RANDOM (BEAKER) (test pide=206) 87 mg/dL 70-105 CALCIUM (BEAKER) (test qfhd=268) 9.6 mg/dL 8.4-10.2 EGFR (BEAKER) (test blve=0699) 153 mL/min/1.73 sq m ESTIMATED GFR IS NOT ACCURATE CREATININE CLEARANCE IN PREDICTING GLOMERULAR FILTRATION RATE. ESTIMATED GFR IS NOT APPLICABLE FOR DIALYSIS PATIENTS. Poker Dealer ID - BSHEPATIC FUNCTION [id number] 16:33:00* Test Item Value Reference Range Comments TOTAL PROTEIN (BEAKER) (test fcej=456) 7.6 gm/dL 6.0-8.3 Specimen moderately hemolyzed ALBUMIN (BEAKER) (test pgey=9014) 4.7 g/dL 3.5-5.0 Specimen moderately hemolyzed BILIRUBIN TOTAL (BEAKER) (test ezqx=667) 1.2 mg/dL 0.2-1.2 Specimen moderately hemolyzed BILIRUBIN DIRECT (BEAKER) (test uwjl=999) 0.4 mg/dL 0.1-0.5 Specimen moderately hemolyzed ALKALINE PHOSPHATASE (BEAKER) (test jyck=985) 64 U/L 40-150 AST (SGOT) (BEAKER) (test uxix=420) 49 U/L 5-34 Specimen moderately hemolyzed ALT (SGPT) (BEAKER) (test syin=423) 14 U/L 6-55 Specimen moderately hemolyzed Poker Dealer ID - BSCBC W/PLT COUNT & AUTO [id number] 15:59:00* Test Item Value Reference Range Comments WHITE BLOOD CELL COUNT (BEAKER) (test xexz=486) 18.0 K/ L 3.5-10.5 RED BLOOD CELL COUNT (BEAKER) (test mywk=917) 3.68 M/ L 3.93-5.22 HEMOGLOBIN (BEAKER) (test txuv=870) 8.8 GM/DL 11.2-15.7 HEMATOCRIT (BEAKER) (test drnz=873) 27.0 % 34.1-44.9 MEAN CORPUSCULAR VOLUME (BEAKER) (test nney=375) 73.4 fL 79.4-94.8 MEAN CORPUSCULAR HEMOGLOBIN (BEAKER) (test wxft=174) 23.9 pg 25.6-32.2 MEAN CORPUSCULAR HEMOGLOBIN CONC (BEAKER) (test hwqy=582) 32.6 GM/DL 32.2-35.5 RED CELL DISTRIBUTION WIDTH (BEAKER) (test gfdn=079) 20.6 % 11.7-14.4 PLATELET COUNT (BEAKER) (test kdgy=101) 237 K/CU MM 150-450 MEAN PLATELET VOLUME (BEAKER) (test bstp=553) 9.7 fL 9.4-12.3 NUCLEATED RED BLOOD CELLS (BEAKER) (test vkep=794) 1 /100 WBC 0-0 NEUTROPHILS RELATIVE PERCENT (BEAKER) (test dkyy=635) 80 % LYMPHOCYTES RELATIVE PERCENT (BEAKER) (test jwre=430) 8 % MONOCYTES RELATIVE PERCENT (BEAKER) (test vrra=844) 8 % EOSINOPHILS RELATIVE PERCENT (BEAKER) (test wfvz=930) 3 % BASOPHILS RELATIVE PERCENT (BEAKER) (test fjfz=833) 1 % NEUTROPHILS ABSOLUTE COUNT (BEAKER) (test szux=308) 14.31 K/ L 1.56-6.13 LYMPHOCYTES ABSOLUTE COUNT (BEAKER) (test xcgo=292) 1.51 K/ L 1.18-3.74 MONOCYTES ABSOLUTE COUNT (BEAKER) (test ypas=663) 1.39 K/ L 0.24-0.36 EOSINOPHILS ABSOLUTE COUNT (BEAKER) (test slpj=823) 0.46 K/ L 0.04-0.36 BASOPHILS ABSOLUTE COUNT (BEAKER) (test nnkj=894) 0.17 K/ L 0.01-0.08 IMMATURE GRANULOCYTES-RELATIVE PERCENT (BEAKER) (test pnlw=2332) 1 % 0-1 RETICULOCYTE [id number] 15:59:00* Test Item Value Reference Range Comments RETICULOCYTE COUNT PCT (BEAKER) (test lgrg=289) 4.8 % 0.5-1.7 Poker Dealer ID - [id number] 07:13:00* Test Item Value Reference Range Comments RETICULOCYTE COUNT PCT (BEAKER) (test ztjo=560) 3.8 % 0.5-1.7 Poker Dealer ID - [id number] W/PLT COUNT & AUTO [id number] 07:13:00* Test Item Value Reference Range Comments WHITE BLOOD CELL COUNT (BEAKER) (test dfwo=355) 11.7 K/ L 3.5-10.5 RED BLOOD CELL COUNT (BEAKER) (test fvge=914) 3.61 M/ L 3.93-5.22 HEMOGLOBIN (BEAKER) (test svjz=099) 8.4 GM/DL 11.2-15.7 HEMATOCRIT (BEAKER) (test kphk=767) 26.7 % 34.1-44.9 MEAN CORPUSCULAR VOLUME (BEAKER) (test vzmw=515) 74.0 fL 79.4-94.8 MEAN CORPUSCULAR HEMOGLOBIN (BEAKER) (test phvy=600) 23.3 pg 25.6-32.2 MEAN CORPUSCULAR HEMOGLOBIN CONC (BEAKER) (test sujj=160) 31.5 GM/DL 32.2-35.5 RED CELL DISTRIBUTION WIDTH (BEAKER) (test llrj=564) 20.2 % 11.7-14.4 PLATELET COUNT (BEAKER) (test zwul=380) 276 K/CU MM 150-450 MEAN PLATELET VOLUME (BEAKER) (test gvno=608) 9.0 fL 9.4-12.3 NUCLEATED RED BLOOD CELLS (BEAKER) (test obxg=820) 1 /100 WBC 0-0 NEUTROPHILS RELATIVE PERCENT (BEAKER) (test fmil=617) 61 % LYMPHOCYTES RELATIVE PERCENT (BEAKER) (test jjfz=585) 24 % MONOCYTES RELATIVE PERCENT (BEAKER) (test bzlu=546) 11 % EOSINOPHILS RELATIVE PERCENT (BEAKER) (test xtbl=819) 3 % BASOPHILS RELATIVE PERCENT (BEAKER) (test tsux=145) 1 % NEUTROPHILS ABSOLUTE COUNT (BEAKER) (test loob=646) 7.06 K/ L 1.56-6.13 LYMPHOCYTES ABSOLUTE COUNT (BEAKER) (test ijpk=214) 2.85 K/ L 1.18-3.74 MONOCYTES ABSOLUTE COUNT (BEAKER) (test skki=927) 1.24 K/ L 0.24-0.36 EOSINOPHILS ABSOLUTE COUNT (BEAKER) (test cgif=125) 0.36 K/ L 0.04-0.36 BASOPHILS ABSOLUTE COUNT (BEAKER) (test dzca=418) 0.07 K/ L 0.01-0.08 IMMATURE GRANULOCYTES-RELATIVE PERCENT (BEAKER) (test zxbl=1515) 1 % 0-1 [id number] 08:56:00* Test Item Value Reference Range Comments FERRITIN (BEAKER) (test jgjw=025) 2535 ng/mL 5-275 Poker Dealer ID - JORGE WRETICULOCYTE [id number] 07:35:00* Test Item Value Reference Range Comments RETICULOCYTE COUNT PCT (BEAKER) (test sxxg=003) 5.7 % 0.5-1.7 Poker Dealer ID - [id number] W/PLT COUNT & AUTO [id number] 07:35:00* Test Item Value Reference Range Comments WHITE BLOOD CELL COUNT (BEAKER) (test shsq=211) 8.9 K/ L 3.5-10.5 RED BLOOD CELL COUNT (BEAKER) (test lzrf=395) 3.40 M/ L 3.93-5.22 HEMOGLOBIN (BEAKER) (test geqf=876) 8.0 GM/DL 11.2-15.7 HEMATOCRIT (BEAKER) (test unqv=593) 24.7 % 34.1-44.9 MEAN CORPUSCULAR VOLUME (BEAKER) (test xbgx=726) 72.6 fL 79.4-94.8 MEAN CORPUSCULAR HEMOGLOBIN (BEAKER) (test canw=082) 23.5 pg 25.6-32.2 MEAN CORPUSCULAR HEMOGLOBIN CONC (BEAKER) (test cruu=119) 32.4 GM/DL 32.2-35.5 RED CELL DISTRIBUTION WIDTH (BEAKER) (test jhvv=881) 20.3 % 11.7-14.4 PLATELET COUNT (BEAKER) (test fcvq=748) 315 K/CU MM 150-450 MEAN PLATELET VOLUME (BEAKER) (test hmwg=662) 9.9 fL 9.4-12.3 NUCLEATED RED BLOOD CELLS (BEAKER) (test ymhy=527) 3 /100 WBC 0-0 NEUTROPHILS RELATIVE PERCENT (BEAKER) (test qpdd=980) 59 % LYMPHOCYTES RELATIVE PERCENT (BEAKER) (test iclu=788) 23 % MONOCYTES RELATIVE PERCENT (BEAKER) (test czam=829) 13 % EOSINOPHILS RELATIVE PERCENT (BEAKER) (test mkhq=020) 4 % BASOPHILS RELATIVE PERCENT (BEAKER) (test bjsg=793) 1 % NEUTROPHILS ABSOLUTE COUNT (BEAKER) (test zxaf=485) 5.21 K/ L 1.56-6.13 LYMPHOCYTES ABSOLUTE COUNT (BEAKER) (test ovaz=259) 2.01 K/ L 1.18-3.74 MONOCYTES ABSOLUTE COUNT (BEAKER) (test izws=348) 1.12 K/ L 0.24-0.36 EOSINOPHILS ABSOLUTE COUNT (BEAKER) (test yvoe=468) 0.36 K/ L 0.04-0.36 BASOPHILS ABSOLUTE COUNT (BEAKER) (test rhpv=273) 0.08 K/ L 0.01-0.08 IMMATURE GRANULOCYTES-RELATIVE PERCENT (BEAKER) (test vptn=5757) 1 % 0-1 CBC W/PLT COUNT & AUTO [id number] 11:37:00* Test Item Value Reference Range Comments WHITE BLOOD CELL COUNT (BEAKER) (test smln=302) 10.9 K/ L 3.5-10.5 RED BLOOD CELL COUNT (BEAKER) (test uuhg=908) 3.41 M/ L 3.93-5.22 HEMOGLOBIN (BEAKER) (test gsbw=037) 8.0 GM/DL 11.2-15.7 HEMATOCRIT (BEAKER) (test yjyp=590) 24.9 % 34.1-44.9 MEAN CORPUSCULAR VOLUME (BEAKER) (test ghpn=027) 73.0 fL 79.4-94.8 MEAN CORPUSCULAR HEMOGLOBIN (BEAKER) (test rjgz=088) 23.5 pg 25.6-32.2 MEAN CORPUSCULAR HEMOGLOBIN CONC (BEAKER) (test ewts=617) 32.1 GM/DL 32.2-35.5 RED CELL DISTRIBUTION WIDTH (BEAKER) (test xocm=418) 19.9 % 11.7-14.4 PLATELET COUNT (BEAKER) (test gqjm=592) 289 K/CU MM 150-450 MEAN PLATELET VOLUME (BEAKER) (test tcvn=842) 9.5 fL 9.4-12.3 NUCLEATED RED BLOOD CELLS (BEAKER) (test iosa=356) 4 /100 WBC 0-0 (CELLAVISION MANUAL DIFF)2019-11-21 11:37:00* Test Item Value Reference Range Comments NEUTROPHILS - REL (CELLAVISION)(BEAKER) (test ximf=8937) 77 % LYMPHOCYTES - REL (CELLAVISION)(BEAKER) (test qbhi=4577) 14 % MONOCYTES - REL (CELLAVISION)(BEAKER) (test kcav=6520) 3 % EOSINOPHILS - REL (CELLAVISION)(BEAKER) (test ygea=7626) 4 % MYELOCYTES - REL (CELLAVISION)(BEAKER) (test qtoc=7470) 1 % 0-0 ATYPICAL LYMPHOCYTES - REL (CELLAVISION)(BEAKER) (test ktwx=0010) 1 % 0-0 NEUTROPHILS - ABS (CELLAVISION)(BEAKER) (test wjxs=9721) 8.39 K/ul 1.56-6.13 LYMPHOCYTES - ABS (CELLAVISION)(BEAKER) (test lahc=2290) 1.53 K/ul 1.18-3.74 MONOCYTES - ABS (CELLAVISION)(BEAKER) (test ypdv=0076) 0.33 K/uL 0.24-0.36 EOSINOPHILS - ABS (CELLAVISION)(BEAKER) (test byuh=2139) 0.44 K/uL 0.04-0.36 MYELOCYTES-ABS (CELLAVISION)(BEAKER) (test zmms=5391) 0.11 K/uL 0.00-0.00 ATYPICAL LYMPHOCYTES - ABS (CELLAVISION)(BEAKER) (test rbxg=6293) 0.11 K/uL 0.00-0.00 TOTAL COUNTED (BEAKER) (test puqa=3906) 100 MANUAL NRBC PER 100 CELLS (BEAKER) (test cecl=1479) 11 /100 WBC 0-0 PLT MORPHOLOGY (BEAKER) (test cflo=256) Normal TOXIC GRANULATION (BEAKER) (test gfex=202) Present POLYCHROMATOPHILLIC RBCS(BEAKER) (test ehhe=282) 2+ moderate HYPOCHROMIA (BEAKER) (test dxel=863) 1+ few ANISOCYTOSIS (BEAKER) (test kpgd=123) 1+ few POIKILOCYTES (BEAKER) (test rlfs=061) 2+ moderate TARGET CELLS (BEAKER) (test gmug=619) 1+ few SICKLE CELLS (BEAKER) (test wzih=491) 1+ few TEAR DROP CELLS (BEAKER) (test jcyr=866) 1+ few ARTIFACT (CELLAVISION)(BEAKER) (test wigb=8156) Present PLATELET CONCENTRATION (CELLAVISION)(BEAKER) (test mwcw=0266) Adequate Poker Dealer ID - Natalya Farhan comments: Slide comments: RETICULOCYTE [id number] 06:32:00* Test Item Value Reference Range Comments RETICULOCYTE COUNT PCT (BEAKER) (test lxhr=439) 7.4 % 0.5-1.7 Poker Dealer ID - [id number] 23:00:00* Test Item Value Reference Range Comments CULTURE (BEAKER) (test joha=2849) No growth in 5 days BLOOD [id number] 16:00:00* Test Item Value Reference Range Comments CULTURE (BEAKER) (test yvdj=7323) No growth in 5 days CBC W/PLT COUNT & AUTO [id number] 09:48:00* Test Item Value Reference Range Comments WHITE BLOOD CELL COUNT (BEAKER) (test uvvj=123) 10.1 K/ L 3.5-10.5 RED BLOOD CELL COUNT (BEAKER) (test sxer=693) 3.21 M/ L 3.93-5.22 HEMOGLOBIN (BEAKER) (test ifaw=865) 7.3 GM/DL 11.2-15.7 HEMATOCRIT (BEAKER) (test bmce=703) 23.1 % 34.1-44.9 MEAN CORPUSCULAR VOLUME (BEAKER) (test olai=928) 72.0 fL 79.4-94.8 MEAN CORPUSCULAR HEMOGLOBIN (BEAKER) (test bqux=901) 22.7 pg 25.6-32.2 MEAN CORPUSCULAR HEMOGLOBIN CONC (BEAKER) (test svtp=133) 31.6 GM/DL 32.2-35.5 RED CELL DISTRIBUTION WIDTH (BEAKER) (test kpkm=307) 19.9 % 11.7-14.4 PLATELET COUNT (BEAKER) (test wftu=929) 302 K/CU MM 150-450 MEAN PLATELET VOLUME (BEAKER) (test wslf=741) 9.4 fL 9.4-12.3 NUCLEATED RED BLOOD CELLS (BEAKER) (test jssv=214) 8 /100 WBC 0-0 (CELLAVISION MANUAL DIFF)2019-11-20 09:48:00* Test Item Value Reference Range Comments NEUTROPHILS - REL (CELLAVISION)(BEAKER) (test xeej=6590) 71 % LYMPHOCYTES - REL (CELLAVISION)(BEAKER) (test lxbe=1543) 15 % MONOCYTES - REL (CELLAVISION)(BEAKER) (test lwsc=7013) 10 % EOSINOPHILS - REL (CELLAVISION)(BEAKER) (test knyr=6922) 2 % BASOPHILS - REL (CELLAVISION)(BEAKER) (test rmku=0013) 1 % MYELOCYTES - REL (CELLAVISION)(BEAKER) (test onjz=9688) 1 % 0-0 NEUTROPHILS - ABS (CELLAVISION)(BEAKER) (test hfos=5772) 7.17 K/ul 1.56-6.13 LYMPHOCYTES - ABS (CELLAVISION)(BEAKER) (test tdld=6419) 1.52 K/ul 1.18-3.74 MONOCYTES - ABS (CELLAVISION)(BEAKER) (test diua=7078) 1.01 K/uL 0.24-0.36 EOSINOPHILS - ABS (CELLAVISION)(BEAKER) (test eoph=0366) 0.20 K/uL 0.04-0.36 BASOPHILS - ABS (CELLAVISION)(BEAKER) (test ppwy=9629) 0.10 K/uL 0.01-0.08 MYELOCYTES-ABS (CELLAVISION)(BEAKER) (test tvnv=7381) 0.10 K/uL 0.00-0.00 TOTAL COUNTED (BEAKER) (test ldis=6003) 100 MANUAL NRBC PER 100 CELLS (BEAKER) (test neen=1617) 9 /100 WBC 0-0 WBC MORPHOLOGY (BEAKER) (test usud=909) Normal PLT MORPHOLOGY (BEAKER) (test wisl=469) Normal POLYCHROMATOPHILLIC RBCS(BEAKER) (test eeik=600) 1+ few ANISOCYTOSIS (BEAKER) (test xjyd=402) 2+ moderate MICROCYTES (BEAKER) (test jray=650) 2+ moderate MACROCYTES (BEAKER) (test bhdm=566) 1+ few POIKILOCYTES (BEAKER) (test ujil=846) 1+ few TARGET CELLS (BEAKER) (test obad=467) 1+ few SCHISTOCYTES (BEAKER) (test hghv=787) 1+ few SICKLE CELLS (BEAKER) (test ksyj=343) 1+ few SPHEROCYTES (BEAKER) (test hitv=058) 1+ few ELLIPTOCYTES (BEAKER) (test zkoy=137) 1+ few OVALOCYTES (BEAKER) (test zlrt=939) 1+ few ARTIFACT (CELLAVISION)(BEAKER) (test bfii=0883) Present HELMET CELLS (CELLAVISION)(BEAKER) (test vddd=5579) 1+ few PLATELET CONCENTRATION (CELLAVISION)(BEAKER) (test oqjf=4178) Adequate Poker Dealer ID - ZoraniUser comments: Slide comments: BASIC METABOLIC [id number] 07:16:00* Test Item Value Reference Range Comments SODIUM (BEAKER) (test faxe=944) 140 meq/L 136-145 POTASSIUM (BEAKER) (test oaqu=175) 3.9 meq/L 3.5-5.1 CHLORIDE (BEAKER) (test bxmm=966) 107 meq/L 98-107 CO2 (BEAKER) (test wobb=095) 27 meq/L 22-29 BLOOD UREA NITROGEN (BEAKER) (test ztcb=396) 3 mg/dL 7-21 CREATININE (BEAKER) (test edcm=030) 0.53 mg/dL 0.57-1.25 GLUCOSE RANDOM (BEAKER) (test lvhc=594) 101 mg/dL 70-105 CALCIUM (BEAKER) (test qwdq=314) 9.1 mg/dL 8.4-10.2 EGFR (BEAKER) (test hqwv=7081) 173 mL/min/1.73 sq m ESTIMATED GFR IS NOT ACCURATE CREATININE CLEARANCE IN PREDICTING GLOMERULAR FILTRATION RATE. ESTIMATED GFR IS NOT APPLICABLE FOR DIALYSIS PATIENTS. Poker Dealer ID - RASHI MRETICULOCYTE [id number] 06:56:00* Test Item Value Reference Range Comments RETICULOCYTE COUNT PCT (BEAKER) (test vyxc=973) 8.9 % 0.5-1.7 Poker Dealer ID - [id number](CELLAVISION MANUAL DIFF)2019-11-19 12:25:00* Test Item Value Reference Range Comments NEUTROPHILS - REL (CELLAVISION)(BEAKER) (test arxq=2126) 80 % LYMPHOCYTES - REL (CELLAVISION)(BEAKER) (test fweu=7996) 12 % MONOCYTES - REL (CELLAVISION)(BEAKER) (test vmaz=1966) 5 % EOSINOPHILS - REL (CELLAVISION)(BEAKER) (test xlws=0695) 2 % BASOPHILS - REL (CELLAVISION)(BEAKER) (test ehud=1218) 1 % NEUTROPHILS - ABS (CELLAVISION)(BEAKER) (test bzkg=0938) 9.76 K/ul 1.56-6.13 LYMPHOCYTES - ABS (CELLAVISION)(BEAKER) (test nsgd=2197) 1.46 K/ul 1.18-3.74 MONOCYTES - ABS (CELLAVISION)(BEAKER) (test dbmk=1203) 0.61 K/uL 0.24-0.36 EOSINOPHILS - ABS (CELLAVISION)(BEAKER) (test bfxb=0279) 0.24 K/uL 0.04-0.36 BASOPHILS - ABS (CELLAVISION)(BEAKER) (test cyuv=5375) 0.12 K/uL 0.01-0.08 TOTAL COUNTED (BEAKER) (test kckk=5961) 100 MANUAL NRBC PER 100 CELLS (BEAKER) (test ntbq=7292) 8 /100 WBC 0-0 WBC MORPHOLOGY (BEAKER) (test yupo=731) Normal GIANT PLATELETS (BEAKER) (test oxwr=182) Present POLYCHROMATOPHILLIC RBCS(BEAKER) (test uiqs=674) 2+ moderate HYPOCHROMIA (BEAKER) (test powy=464) 1+ few ANISOCYTOSIS (BEAKER) (test veqb=219) 2+ moderate MICROCYTES (BEAKER) (test yniv=720) 1+ few MACROCYTES (BEAKER) (test ddfs=804) 1+ few POIKILOCYTES (BEAKER) (test yarc=250) 1+ few TEAR DROP CELLS (BEAKER) (test mqtl=785) 1+ few ARTIFACT (CELLAVISION)(BEAKER) (test dpxw=1405) Present PLATELET CONCENTRATION (CELLAVISION)(BEAKER) (test anbu=7862) Adequate Poker Dealer ID - Tigre Claros comments: Slide comments: CBC W/PLT COUNT & AUTO [id number] 12:24:00* Test Item Value Reference Range Comments WHITE BLOOD CELL COUNT (BEAKER) (test gvmk=988) 12.2 K/ L 3.5-10.5 RED BLOOD CELL COUNT (BEAKER) (test akdd=861) 3.13 M/ L 3.93-5.22 HEMOGLOBIN (BEAKER) (test ajax=078) 7.3 GM/DL 11.2-15.7 HEMATOCRIT (BEAKER) (test jxwo=917) 22.4 % 34.1-44.9 MEAN CORPUSCULAR VOLUME (BEAKER) (test fviz=969) 71.6 fL 79.4-94.8 MEAN CORPUSCULAR HEMOGLOBIN (BEAKER) (test vfia=711) 23.3 pg 25.6-32.2 MEAN CORPUSCULAR HEMOGLOBIN CONC (BEAKER) (test bxmi=754) 32.6 GM/DL 32.2-35.5 RED CELL DISTRIBUTION WIDTH (BEAKER) (test yyll=772) 19.9 % 11.7-14.4 PLATELET COUNT (BEAKER) (test ecae=079) 287 K/CU MM 150-450 MEAN PLATELET VOLUME (BEAKER) (test kmwa=278) 9.9 fL 9.4-12.3 NUCLEATED RED BLOOD CELLS (BEAKER) (test nbiq=158) 5 /100 WBC 0-0 RETICULOCYTE [id number] 06:09:00* Test Item Value Reference Range Comments RETICULOCYTE COUNT PCT (BEAKER) (test qisw=396) 7.2 % 0.5-1.7 Poker Dealer ID - [id number] 14:00:00* Test Item Value Reference Range Comments FERRITIN (BEAKER) (test dmsd=759) 2615 ng/mL 5-275 Poker Dealer ID - KEI FBUN AND [id number] 13:07:00* Test Item Value Reference Range Comments BLOOD UREA NITROGEN (BEAKER) (test bbwq=029) 4 mg/dL 7-21 CREATININE (BEAKER) (test kauy=477) 0.53 mg/dL 0.57-1.25 EGFR (BEAKER) (test tbws=7559) 173 mL/min/1.73 sq m ESTIMATED GFR IS NOT ACCURATE CREATININE CLEARANCE IN PREDICTING GLOMERULAR FILTRATION RATE. ESTIMATED GFR IS NOT APPLICABLE FOR DIALYSIS PATIENTS. Poker Dealer ID - KEI FRETICULOCYTE [id number] 06:40:00* Test Item Value Reference Range Comments RETICULOCYTE COUNT PCT (BEAKER) (test klsn=268) 7.7 % 0.5-1.7 Poker Dealer ID - DebbieCBC W/PLT COUNT & AUTO [id number] 06:40:00* Test Item Value Reference Range Comments WHITE BLOOD CELL COUNT (BEAKER) (test isqc=668) 11.4 K/ L 3.5-10.5 RED BLOOD CELL COUNT (BEAKER) (test zudx=972) 2.71 M/ L 3.93-5.22 HEMOGLOBIN (BEAKER) (test poat=974) 5.9 GM/DL 11.2-15.7 HEMATOCRIT (BEAKER) (test vqtc=967) 18.8 % 34.1-44.9 MEAN CORPUSCULAR VOLUME (BEAKER) (test mvgg=138) 69.4 fL 79.4-94.8 MEAN CORPUSCULAR HEMOGLOBIN (BEAKER) (test mmqp=627) 21.8 pg 25.6-32.2 MEAN CORPUSCULAR HEMOGLOBIN CONC (BEAKER) (test gscc=461) 31.4 GM/DL 32.2-35.5 RED CELL DISTRIBUTION WIDTH (BEAKER) (test vynh=995) 17.4 % 11.7-14.4 PLATELET COUNT (BEAKER) (test uyva=705) 263 K/CU MM 150-450 MEAN PLATELET VOLUME (BEAKER) (test biks=038) 9.4 fL 9.4-12.3 NUCLEATED RED BLOOD CELLS (BEAKER) (test fmeq=214) 2 /100 WBC 0-0 NEUTROPHILS RELATIVE PERCENT (BEAKER) (test meze=912) 64 % LYMPHOCYTES RELATIVE PERCENT (BEAKER) (test qaqt=080) 21 % MONOCYTES RELATIVE PERCENT (BEAKER) (test wdkk=209) 10 % EOSINOPHILS RELATIVE PERCENT (BEAKER) (test grjn=481) 3 % BASOPHILS RELATIVE PERCENT (BEAKER) (test xgjg=154) 0 % NEUTROPHILS ABSOLUTE COUNT (BEAKER) (test xeut=723) 7.35 K/ L 1.56-6.13 LYMPHOCYTES ABSOLUTE COUNT (BEAKER) (test rrso=004) 2.40 K/ L 1.18-3.74 MONOCYTES ABSOLUTE COUNT (BEAKER) (test igns=996) 1.17 K/ L 0.24-0.36 EOSINOPHILS ABSOLUTE COUNT (BEAKER) (test ocvc=920) 0.36 K/ L 0.04-0.36 BASOPHILS ABSOLUTE COUNT (BEAKER) (test ubmk=542) 0.05 K/ L 0.01-0.08 IMMATURE GRANULOCYTES-RELATIVE PERCENT (BEAKER) (test gvcc=3605) 1 % 0-1 CBC W/PLT COUNT & AUTO [id number] 07:22:00* Test Item Value Reference Range Comments WHITE BLOOD CELL COUNT (BEAKER) (test xhkr=728) 8.1 K/ L 3.5-10.5 RED BLOOD CELL COUNT (BEAKER) (test udnp=746) 2.80 M/ L 3.93-5.22 HEMOGLOBIN (BEAKER) (test orfr=258) 6.1 GM/DL 11.2-15.7 HEMATOCRIT (BEAKER) (test uwvp=012) 19.5 % 34.1-44.9 MEAN CORPUSCULAR VOLUME (BEAKER) (test loyk=499) 69.6 fL 79.4-94.8 MEAN CORPUSCULAR HEMOGLOBIN (BEAKER) (test atyf=357) 21.8 pg 25.6-32.2 MEAN CORPUSCULAR HEMOGLOBIN CONC (BEAKER) (test fukn=329) 31.3 GM/DL 32.2-35.5 RED CELL DISTRIBUTION WIDTH (BEAKER) (test gspq=315) 17.3 % 11.7-14.4 PLATELET COUNT (BEAKER) (test jbhk=022) 235 K/CU MM 150-450 MEAN PLATELET VOLUME (BEAKER) (test snpb=776) 9.8 fL 9.4-12.3 NUCLEATED RED BLOOD CELLS (BEAKER) (test jtob=858) 2 /100 WBC 0-0 NEUTROPHILS RELATIVE PERCENT (BEAKER) (test bezt=965) 54 % LYMPHOCYTES RELATIVE PERCENT (BEAKER) (test mbkc=820) 27 % MONOCYTES RELATIVE PERCENT (BEAKER) (test tscb=432) 13 % EOSINOPHILS RELATIVE PERCENT (BEAKER) (test fvrm=941) 5 % BASOPHILS RELATIVE PERCENT (BEAKER) (test rbkj=903) 1 % NEUTROPHILS ABSOLUTE COUNT (BEAKER) (test wgum=402) 4.35 K/ L 1.56-6.13 LYMPHOCYTES ABSOLUTE COUNT (BEAKER) (test xprv=764) 2.20 K/ L 1.18-3.74 MONOCYTES ABSOLUTE COUNT (BEAKER) (test yhgy=476) 1.06 K/ L 0.24-0.36 EOSINOPHILS ABSOLUTE COUNT (BEAKER) (test znuj=173) 0.36 K/ L 0.04-0.36 BASOPHILS ABSOLUTE COUNT (BEAKER) (test mflx=836) 0.04 K/ L 0.01-0.08 IMMATURE GRANULOCYTES-RELATIVE PERCENT (BEAKER) (test ijip=0571) 1 % 0-1 RETICULOCYTE [id number] 07:22:00* Test Item Value Reference Range Comments RETICULOCYTE COUNT PCT (BEAKER) (test heqk=230) 6.7 % 0.5-1.7 Poker Dealer ID - [id number] [id number] 07:40:00* Test Item Value Reference Range Comments RETICULOCYTE COUNT PCT (BEAKER) (test mhhb=306) 6.4 % 0.5-1.7 Poker Dealer ID - [id number] W/PLT COUNT & AUTO [id number] 07:40:00* Test Item Value Reference Range Comments WHITE BLOOD CELL COUNT (BEAKER) (test zbra=032) 9.3 K/ L 3.5-10.5 RED BLOOD CELL COUNT (BEAKER) (test oqzt=945) 2.95 M/ L 3.93-5.22 HEMOGLOBIN (BEAKER) (test hxus=678) 6.6 GM/DL 11.2-15.7 HEMATOCRIT (BEAKER) (test ueaw=244) 20.5 % 34.1-44.9 MEAN CORPUSCULAR VOLUME (BEAKER) (test hgve=807) 69.5 fL 79.4-94.8 MEAN CORPUSCULAR HEMOGLOBIN (BEAKER) (test monn=306) 22.4 pg 25.6-32.2 MEAN CORPUSCULAR HEMOGLOBIN CONC (BEAKER) (test sbtu=088) 32.2 GM/DL 32.2-35.5 RED CELL DISTRIBUTION WIDTH (BEAKER) (test sasx=924) 17.5 % 11.7-14.4 PLATELET COUNT (BEAKER) (test siax=509) 262 K/CU MM 150-450 MEAN PLATELET VOLUME (BEAKER) (test vczb=393) 9.8 fL 9.4-12.3 NUCLEATED RED BLOOD CELLS (BEAKER) (test wakj=042) 2 /100 WBC 0-0 NEUTROPHILS RELATIVE PERCENT (BEAKER) (test imus=385) 61 % LYMPHOCYTES RELATIVE PERCENT (BEAKER) (test vbrd=654) 23 % MONOCYTES RELATIVE PERCENT (BEAKER) (test xudt=844) 11 % EOSINOPHILS RELATIVE PERCENT (BEAKER) (test suwi=840) 5 % BASOPHILS RELATIVE PERCENT (BEAKER) (test hsan=497) 1 % NEUTROPHILS ABSOLUTE COUNT (BEAKER) (test uvkp=468) 5.65 K/ L 1.56-6.13 LYMPHOCYTES ABSOLUTE COUNT (BEAKER) (test bglr=551) 2.14 K/ L 1.18-3.74 MONOCYTES ABSOLUTE COUNT (BEAKER) (test ojru=783) 0.99 K/ L 0.24-0.36 EOSINOPHILS ABSOLUTE COUNT (BEAKER) (test ixna=018) 0.42 K/ L 0.04-0.36 BASOPHILS ABSOLUTE COUNT (BEAKER) (test qbbb=607) 0.06 K/ L 0.01-0.08 IMMATURE GRANULOCYTES-RELATIVE PERCENT (BEAKER) (test zecp=1136) 1 % 0-1 COMPREHENSIVE METABOLIC [id number] 07:11:00* Test Item Value Reference Range Comments TOTAL PROTEIN (BEAKER) (test vglu=336) 6.6 gm/dL 6.0-8.3 ALBUMIN (BEAKER) (test deso=7632) 4.0 g/dL 3.5-5.0 ALKALINE PHOSPHATASE (BEAKER) (test latq=740) 75 U/L 40-150 BILIRUBIN TOTAL (BEAKER) (test aojh=414) 0.7 mg/dL 0.2-1.2 SODIUM (BEAKER) (test sgjz=047) 139 meq/L 136-145 POTASSIUM (BEAKER) (test vlwe=410) 4.2 meq/L 3.5-5.1 CHLORIDE (BEAKER) (test ualm=817) 107 meq/L 98-107 CO2 (BEAKER) (test bfbn=007) 27 meq/L 22-29 BLOOD UREA NITROGEN (BEAKER) (test jmqj=823) 4 mg/dL 7-21 CREATININE (BEAKER) (test utlv=273) 0.53 mg/dL 0.57-1.25 GLUCOSE RANDOM (BEAKER) (test jjyc=078) 85 mg/dL 70-105 CALCIUM (BEAKER) (test fshm=115) 9.1 mg/dL 8.4-10.2 AST (SGOT) (BEAKER) (test stlo=324) 19 U/L 5-34 ALT (SGPT) (BEAKER) (test zxyz=241) 10 U/L 6-55 EGFR (BEAKER) (test yfxw=6057) 173 mL/min/1.73 sq m ESTIMATED GFR IS NOT ACCURATE CREATININE CLEARANCE IN PREDICTING GLOMERULAR FILTRATION RATE. ESTIMATED GFR IS NOT APPLICABLE FOR DIALYSIS PATIENTS. Poker Dealer ID - RASHI MLACTATE DEHYDROGENASE (LDH)2019-11-15 10:25:00* Test Item Value Reference Range Comments LACTATE DEHYDROGENASE (BEAKER) (test shah=478) 351 U/L 125-220 Poker Dealer ID - RASHI MRETICULOCYTE [id number] 08:11:00* Test Item Value Reference Range Comments RETICULOCYTE COUNT PCT (BEAKER) (test bssm=582) 6.1 % 0.5-1.7 Poker Dealer ID - [id number] W/PLT COUNT & AUTO [id number] 07:19:00* Test Item Value Reference Range Comments WHITE BLOOD CELL COUNT (BEAKER) (test pxtc=142) 13.1 K/ L 3.5-10.5 RED BLOOD CELL COUNT (BEAKER) (test jgul=696) 3.06 M/ L 3.93-5.22 HEMOGLOBIN (BEAKER) (test bidp=955) 6.8 GM/DL 11.2-15.7 HEMATOCRIT (BEAKER) (test yzxr=226) 21.6 % 34.1-44.9 MEAN CORPUSCULAR VOLUME (BEAKER) (test ylxb=855) 70.6 fL 79.4-94.8 MEAN CORPUSCULAR HEMOGLOBIN (BEAKER) (test wqae=976) 22.2 pg 25.6-32.2 MEAN CORPUSCULAR HEMOGLOBIN CONC (BEAKER) (test kjhj=153) 31.5 GM/DL 32.2-35.5 RED CELL DISTRIBUTION WIDTH (BEAKER) (test ttav=567) 17.4 % 11.7-14.4 PLATELET COUNT (BEAKER) (test gxqh=543) 272 K/CU MM 150-450 MEAN PLATELET VOLUME (BEAKER) (test eevw=353) 10.1 fL 9.4-12.3 NUCLEATED RED BLOOD CELLS (BEAKER) (test oxdl=448) 2 /100 WBC 0-0 NEUTROPHILS RELATIVE PERCENT (BEAKER) (test pmep=028) 64 % LYMPHOCYTES RELATIVE PERCENT (BEAKER) (test tvhe=217) 21 % MONOCYTES RELATIVE PERCENT (BEAKER) (test emdi=361) 10 % EOSINOPHILS RELATIVE PERCENT (BEAKER) (test outc=177) 4 % BASOPHILS RELATIVE PERCENT (BEAKER) (test jcab=411) 1 % NEUTROPHILS ABSOLUTE COUNT (BEAKER) (test tmko=783) 8.36 K/ L 1.56-6.13 LYMPHOCYTES ABSOLUTE COUNT (BEAKER) (test jwlv=750) 2.73 K/ L 1.18-3.74 MONOCYTES ABSOLUTE COUNT (BEAKER) (test xrtj=154) 1.33 K/ L 0.24-0.36 EOSINOPHILS ABSOLUTE COUNT (BEAKER) (test hoor=764) 0.46 K/ L 0.04-0.36 BASOPHILS ABSOLUTE COUNT (BEAKER) (test gnio=236) 0.08 K/ L 0.01-0.08 IMMATURE GRANULOCYTES-RELATIVE PERCENT (BEAKER) (test qsco=7774) 1 % 0-1 COMPREHENSIVE METABOLIC [id number] 06:45:00* Test Item Value Reference Range Comments TOTAL PROTEIN (BEAKER) (test hcux=168) 6.7 gm/dL 6.0-8.3 ALBUMIN (BEAKER) (test culb=3654) 4.2 g/dL 3.5-5.0 ALKALINE PHOSPHATASE (BEAKER) (test maxl=824) 85 U/L 40-150 BILIRUBIN TOTAL (BEAKER) (test dlfl=527) 0.6 mg/dL 0.2-1.2 SODIUM (BEAKER) (test pqlk=680) 141 meq/L 136-145 POTASSIUM (BEAKER) (test ogxk=767) 3.8 meq/L 3.5-5.1 CHLORIDE (BEAKER) (test xgqn=528) 107 meq/L 98-107 CO2 (BEAKER) (test next=870) 27 meq/L 22-29 BLOOD UREA NITROGEN (BEAKER) (test iivu=330) 2 mg/dL 7-21 CREATININE (BEAKER) (test vacv=980) 0.55 mg/dL 0.57-1.25 GLUCOSE RANDOM (BEAKER) (test yolq=570) 80 mg/dL 70-105 CALCIUM (BEAKER) (test cmgc=640) 8.9 mg/dL 8.4-10.2 AST (SGOT) (BEAKER) (test zrtl=100) 17 U/L 5-34 ALT (SGPT) (BEAKER) (test nxkx=377) 10 U/L 6-55 EGFR (BEAKER) (test xdal=0662) 166 mL/min/1.73 sq m ESTIMATED GFR IS NOT ACCURATE CREATININE CLEARANCE IN PREDICTING GLOMERULAR FILTRATION RATE. ESTIMATED GFR IS NOT APPLICABLE FOR DIALYSIS PATIENTS. Poker Dealer ID - RASHI MRAD, CHEST, 1 VIEW, NON [id number] 20:26:00Reason for exam:->sickle cell crisis, chest painShould this be performed at the bedside?-> YesFINAL REPORT INDICATION: sickle cell crisis, chest pain TECHNIQUE: Chest radiograph, single view, portable technique. FINDINGS / IMPRESSION: Heart shadow and central pulmonary veins are prominent. No lung parenchymal opacities demonstrated. No pneumothorax or pleural effusion. Faint sclerosis in the right humeral head may represent early avascular necrosis. Signed: Beatriz Elena MDReport Verified Date/Time: 11/14/2019 20:26:31 Reading Location: [address] Transitional Reading Room CULOCYTE COUNT 2019-11-14 07:10:00* Test Item Value Reference Range Comments RETICULOCYTE COUNT PCT (BEAKER) (test dnch=825) 6.1 % 0.5-1.7 Poker Dealer ID - [id number] W/PLT COUNT & AUTO [id number] 07:09:00* Test Item Value Reference Range Comments WHITE BLOOD CELL COUNT (BEAKER) (test tsox=295) 12.3 K/ L 3.5-10.5 RED BLOOD CELL COUNT (BEAKER) (test jsxx=290) 3.17 M/ L 3.93-5.22 HEMOGLOBIN (BEAKER) (test ezvn=653) 7.0 GM/DL 11.2-15.7 HEMATOCRIT (BEAKER) (test vxlr=635) 22.6 % 34.1-44.9 MEAN CORPUSCULAR VOLUME (BEAKER) (test frcg=935) 71.3 fL 79.4-94.8 MEAN CORPUSCULAR HEMOGLOBIN (BEAKER) (test mlik=623) 22.1 pg 25.6-32.2 MEAN CORPUSCULAR HEMOGLOBIN CONC (BEAKER) (test zxjo=170) 31.0 GM/DL 32.2-35.5 RED CELL DISTRIBUTION WIDTH (BEAKER) (test rrot=708) 17.5 % 11.7-14.4 PLATELET COUNT (BEAKER) (test jemn=386) 264 K/CU MM 150-450 MEAN PLATELET VOLUME (BEAKER) (test xifg=745) 10.3 fL 9.4-12.3 NUCLEATED RED BLOOD CELLS (BEAKER) (test nsxg=844) 3 /100 WBC 0-0 NEUTROPHILS RELATIVE PERCENT (BEAKER) (test ouyz=333) 64 % LYMPHOCYTES RELATIVE PERCENT (BEAKER) (test vrjq=229) 21 % MONOCYTES RELATIVE PERCENT (BEAKER) (test efdc=125) 9 % EOSINOPHILS RELATIVE PERCENT (BEAKER) (test wvdf=476) 4 % BASOPHILS RELATIVE PERCENT (BEAKER) (test oaao=708) 1 % NEUTROPHILS ABSOLUTE COUNT (BEAKER) (test biry=265) 7.89 K/ L 1.56-6.13 LYMPHOCYTES ABSOLUTE COUNT (BEAKER) (test vzms=484) 2.58 K/ L 1.18-3.74 MONOCYTES ABSOLUTE COUNT (BEAKER) (test tecc=276) 1.12 K/ L 0.24-0.36 EOSINOPHILS ABSOLUTE COUNT (BEAKER) (test wtor=358) 0.50 K/ L 0.04-0.36 BASOPHILS ABSOLUTE COUNT (BEAKER) (test jbbv=349) 0.11 K/ L 0.01-0.08 IMMATURE GRANULOCYTES-RELATIVE PERCENT (BEAKER) (test wbks=8007) 1 % 0-1 COMPREHENSIVE METABOLIC [id number] 06:58:00* Test Item Value Reference Range Comments TOTAL PROTEIN (BEAKER) (test hzsl=963) 6.6 gm/dL 6.0-8.3 ALBUMIN (BEAKER) (test uwqx=3618) 4.1 g/dL 3.5-5.0 ALKALINE PHOSPHATASE (BEAKER) (test dxow=558) 83 U/L 40-150 BILIRUBIN TOTAL (BEAKER) (test tzsp=701) 0.7 mg/dL 0.2-1.2 SODIUM (BEAKER) (test jwzq=410) 143 meq/L 136-145 POTASSIUM (BEAKER) (test esep=288) 4.1 meq/L 3.5-5.1 CHLORIDE (BEAKER) (test wmtn=960) 109 meq/L 98-107 CO2 (BEAKER) (test bkyn=851) 27 meq/L 22-29 BLOOD UREA NITROGEN (BEAKER) (test ffhc=653) 4 mg/dL 7-21 CREATININE (BEAKER) (test bvdj=736) 0.56 mg/dL 0.57-1.25 GLUCOSE RANDOM (BEAKER) (test lcvz=992) 86 mg/dL 70-105 CALCIUM (BEAKER) (test pkvd=020) 8.8 mg/dL 8.4-10.2 AST (SGOT) (BEAKER) (test kgoy=261) 21 U/L 5-34 ALT (SGPT) (BEAKER) (test nvcu=999) 11 U/L 6-55 EGFR (BEAKER) (test qkbr=0077) 163 mL/min/1.73 sq m ESTIMATED GFR IS NOT ACCURATE CREATININE CLEARANCE IN PREDICTING GLOMERULAR FILTRATION RATE. ESTIMATED GFR IS NOT APPLICABLE FOR DIALYSIS PATIENTS. Poker Dealer ID - JORGE GRAYSONETICULOCYTE [id number] 05:18:00* Test Item Value Reference Range Comments RETICULOCYTE COUNT PCT (BEAKER) (test ppqs=326) 3.9 % 0.5-1.7 Poker Dealer ID - [id number] W/PLT COUNT & AUTO [id number] 05:18:00* Test Item Value Reference Range Comments WHITE BLOOD CELL COUNT (BEAKER) (test iloh=518) 9.6 K/ L 3.5-10.5 RED BLOOD CELL COUNT (BEAKER) (test eifd=382) 3.09 M/ L 3.93-5.22 HEMOGLOBIN (BEAKER) (test lhdk=025) 6.7 GM/DL 11.2-15.7 HEMATOCRIT (BEAKER) (test kkzy=459) 21.4 % 34.1-44.9 MEAN CORPUSCULAR VOLUME (BEAKER) (test aorw=089) 69.3 fL 79.4-94.8 MEAN CORPUSCULAR HEMOGLOBIN (BEAKER) (test nvfv=757) 21.7 pg 25.6-32.2 MEAN CORPUSCULAR HEMOGLOBIN CONC (BEAKER) (test hico=340) 31.3 GM/DL 32.2-35.5 RED CELL DISTRIBUTION WIDTH (BEAKER) (test dxls=957) 17.0 % 11.7-14.4 PLATELET COUNT (BEAKER) (test gvkh=675) 214 K/CU MM 150-450 MEAN PLATELET VOLUME (BEAKER) (test vqvz=550) 9.6 fL 9.4-12.3 NUCLEATED RED BLOOD CELLS (BEAKER) (test nwau=068) 2 /100 WBC 0-0 NEUTROPHILS RELATIVE PERCENT (BEAKER) (test pkbl=672) 61 % LYMPHOCYTES RELATIVE PERCENT (BEAKER) (test zkdm=137) 25 % MONOCYTES RELATIVE PERCENT (BEAKER) (test ymnr=409) 9 % EOSINOPHILS RELATIVE PERCENT (BEAKER) (test qxvj=547) 4 % BASOPHILS RELATIVE PERCENT (BEAKER) (test ckte=562) 1 % NEUTROPHILS ABSOLUTE COUNT (BEAKER) (test bqzs=166) 5.81 K/ L 1.56-6.13 LYMPHOCYTES ABSOLUTE COUNT (BEAKER) (test cckl=921) 2.39 K/ L 1.18-3.74 MONOCYTES ABSOLUTE COUNT (BEAKER) (test wuaa=964) 0.86 K/ L 0.24-0.36 EOSINOPHILS ABSOLUTE COUNT (BEAKER) (test ldej=187) 0.42 K/ L 0.04-0.36 BASOPHILS ABSOLUTE COUNT (BEAKER) (test mygy=964) 0.10 K/ L 0.01-0.08 IMMATURE GRANULOCYTES-RELATIVE PERCENT (BEAKER) (test llqy=3898) 0 % 0-1 COMPREHENSIVE METABOLIC [id number] 05:07:00* Test Item Value Reference Range Comments TOTAL PROTEIN (BEAKER) (test gvzx=677) 6.0 gm/dL 6.0-8.3 ALBUMIN (BEAKER) (test glbz=3573) 3.9 g/dL 3.5-5.0 ALKALINE PHOSPHATASE (BEAKER) (test yxpc=873) 70 U/L 40-150 BILIRUBIN TOTAL (BEAKER) (test ivtn=512) 0.8 mg/dL 0.2-1.2 SODIUM (BEAKER) (test kifk=733) 140 meq/L 136-145 POTASSIUM (BEAKER) (test xvwh=450) 4.0 meq/L 3.5-5.1 CHLORIDE (BEAKER) (test yafl=076) 107 meq/L 98-107 CO2 (BEAKER) (test vbqq=508) 30 meq/L 22-29 BLOOD UREA NITROGEN (BEAKER) (test dkjv=401) 4 mg/dL 7-21 CREATININE (BEAKER) (test ymyo=565) 0.51 mg/dL 0.57-1.25 GLUCOSE RANDOM (BEAKER) (test dtrn=545) 85 mg/dL 70-105 CALCIUM (BEAKER) (test upiu=361) 8.6 mg/dL 8.4-10.2 AST (SGOT) (BEAKER) (test xdxi=133) 20 U/L 5-34 ALT (SGPT) (BEAKER) (test zjlh=314) 9 U/L 6-55 EGFR (BEAKER) (test nrqx=0567) 181 mL/min/1.73 sq m ESTIMATED GFR IS NOT ACCURATE CREATININE CLEARANCE IN PREDICTING GLOMERULAR FILTRATION RATE. ESTIMATED GFR IS NOT APPLICABLE FOR DIALYSIS PATIENTS. Poker Dealer ID - RASHI [facility] METABOLIC [id number] 06:10:00* Test Item Value Reference Range Comments TOTAL PROTEIN (BEAKER) (test upzk=074) 5.9 gm/dL 6.0-8.3 ALBUMIN (BEAKER) (test oiuy=5797) 3.8 g/dL 3.5-5.0 ALKALINE PHOSPHATASE (BEAKER) (test yqal=069) 70 U/L 40-150 BILIRUBIN TOTAL (BEAKER) (test fpmq=585) 0.8 mg/dL 0.2-1.2 SODIUM (BEAKER) (test kboa=346) 137 meq/L 136-145 POTASSIUM (BEAKER) (test nnhp=387) 4.1 meq/L 3.5-5.1 CHLORIDE (BEAKER) (test orzs=347) 105 meq/L 98-107 CO2 (BEAKER) (test uvji=651) 28 meq/L 22-29 BLOOD UREA NITROGEN (BEAKER) (test lhsw=746) 3 mg/dL 7-21 CREATININE (BEAKER) (test itsu=608) 0.51 mg/dL 0.57-1.25 GLUCOSE RANDOM (BEAKER) (test drrm=414) 97 mg/dL 70-105 CALCIUM (BEAKER) (test wgtu=170) 8.3 mg/dL 8.4-10.2 AST (SGOT) (BEAKER) (test vncb=779) 20 U/L 5-34 ALT (SGPT) (BEAKER) (test eyml=296) 9 U/L 6-55 EGFR (BEAKER) (test wafx=2525) 181 mL/min/1.73 sq m ESTIMATED GFR IS NOT ACCURATE CREATININE CLEARANCE IN PREDICTING GLOMERULAR FILTRATION RATE. ESTIMATED GFR IS NOT APPLICABLE FOR DIALYSIS PATIENTS. Poker Dealer ID - BSCBC W/PLT COUNT & AUTO [id number] 05:46:00* Test Item Value Reference Range Comments WHITE BLOOD CELL COUNT (BEAKER) (test dyqk=978) 8.0 K/ L 3.5-10.5 RED BLOOD CELL COUNT (BEAKER) (test gmmy=132) 2.91 M/ L 3.93-5.22 HEMOGLOBIN (BEAKER) (test oqex=828) 6.4 GM/DL 11.2-15.7 HEMATOCRIT (BEAKER) (test ddvz=351) 20.2 % 34.1-44.9 MEAN CORPUSCULAR VOLUME (BEAKER) (test bwzf=366) 69.4 fL 79.4-94.8 MEAN CORPUSCULAR HEMOGLOBIN (BEAKER) (test bqru=490) 22.0 pg 25.6-32.2 MEAN CORPUSCULAR HEMOGLOBIN CONC (BEAKER) (test txop=463) 31.7 GM/DL 32.2-35.5 RED CELL DISTRIBUTION WIDTH (BEAKER) (test snhy=027) 16.9 % 11.7-14.4 PLATELET COUNT (BEAKER) (test nblm=186) 189 K/CU MM 150-450 MEAN PLATELET VOLUME (BEAKER) (test mwgv=185) 9.7 fL 9.4-12.3 NUCLEATED RED BLOOD CELLS (BEAKER) (test eaej=136) 1 /100 WBC 0-0 NEUTROPHILS RELATIVE PERCENT (BEAKER) (test hcrx=383) 55 % LYMPHOCYTES RELATIVE PERCENT (BEAKER) (test svfl=157) 27 % MONOCYTES RELATIVE PERCENT (BEAKER) (test itsd=444) 12 % EOSINOPHILS RELATIVE PERCENT (BEAKER) (test fpaj=836) 4 % BASOPHILS RELATIVE PERCENT (BEAKER) (test andz=441) 1 % NEUTROPHILS ABSOLUTE COUNT (BEAKER) (test byrl=945) 4.44 K/ L 1.56-6.13 LYMPHOCYTES ABSOLUTE COUNT (BEAKER) (test cead=151) 2.14 K/ L 1.18-3.74 MONOCYTES ABSOLUTE COUNT (BEAKER) (test bqda=393) 0.94 K/ L 0.24-0.36 EOSINOPHILS ABSOLUTE COUNT (BEAKER) (test widg=716) 0.35 K/ L 0.04-0.36 BASOPHILS ABSOLUTE COUNT (BEAKER) (test vitl=981) 0.10 K/ L 0.01-0.08 IMMATURE GRANULOCYTES-RELATIVE PERCENT (BEAKER) (test kkvh=9602) 0 % 0-1 RETICULOCYTE [id number] 05:28:00* Test Item Value Reference Range Comments RETICULOCYTE COUNT PCT (BEAKER) (test rpjq=323) 1.9 % 0.5-1.7 Poker Dealer ID - [id number] W/PLT COUNT & AUTO [id number] 06:08:00* Test Item Value Reference Range Comments WHITE BLOOD CELL COUNT (BEAKER) (test mkkz=945) 7.1 K/ L 3.5-10.5 RED BLOOD CELL COUNT (BEAKER) (test bbbb=517) 3.12 M/ L 3.93-5.22 HEMOGLOBIN (BEAKER) (test zwjr=420) 6.8 GM/DL 11.2-15.7 HEMATOCRIT (BEAKER) (test ctge=557) 21.8 % 34.1-44.9 MEAN CORPUSCULAR VOLUME (BEAKER) (test qnli=299) 69.9 fL 79.4-94.8 MEAN CORPUSCULAR HEMOGLOBIN (BEAKER) (test ncgh=302) 21.8 pg 25.6-32.2 MEAN CORPUSCULAR HEMOGLOBIN CONC (BEAKER) (test muuo=594) 31.2 GM/DL 32.2-35.5 RED CELL DISTRIBUTION WIDTH (BEAKER) (test kzek=100) 16.7 % 11.7-14.4 PLATELET COUNT (BEAKER) (test grih=658) 192 K/CU MM 150-450 MEAN PLATELET VOLUME (BEAKER) (test npin=068) 10.1 fL 9.4-12.3 NUCLEATED RED BLOOD CELLS (BEAKER) (test zznd=637) 0 /100 WBC 0-0 NEUTROPHILS RELATIVE PERCENT (BEAKER) (test pjhy=793) 47 % LYMPHOCYTES RELATIVE PERCENT (BEAKER) (test ogbu=899) 34 % MONOCYTES RELATIVE PERCENT (BEAKER) (test azoo=116) 12 % EOSINOPHILS RELATIVE PERCENT (BEAKER) (test laii=972) 5 % BASOPHILS RELATIVE PERCENT (BEAKER) (test gjsp=624) 2 % NEUTROPHILS ABSOLUTE COUNT (BEAKER) (test sjna=441) 3.35 K/ L 1.56-6.13 LYMPHOCYTES ABSOLUTE COUNT (BEAKER) (test hyff=911) 2.42 K/ L 1.18-3.74 MONOCYTES ABSOLUTE COUNT (BEAKER) (test toeb=044) 0.85 K/ L 0.24-0.36 EOSINOPHILS ABSOLUTE COUNT (BEAKER) (test perc=414) 0.38 K/ L 0.04-0.36 BASOPHILS ABSOLUTE COUNT (BEAKER) (test iavy=180) 0.12 K/ L 0.01-0.08 IMMATURE GRANULOCYTES-RELATIVE PERCENT (BEAKER) (test pltr=4485) 0 % 0-1 RETICULOCYTE [id number] 06:03:00* Test Item Value Reference Range Comments RETICULOCYTE COUNT PCT (BEAKER) (test mocx=225) 1.9 % 0.5-1.7 Poker Dealer ID - [id number] W/PLT COUNT & AUTO [id number] 06:43:00* Test Item Value Reference Range Comments WHITE BLOOD CELL COUNT (BEAKER) (test bggx=089) 6.5 K/ L 3.5-10.5 RED BLOOD CELL COUNT (BEAKER) (test ztgp=003) 3.08 M/ L 3.93-5.22 HEMOGLOBIN (BEAKER) (test fpas=271) 6.8 GM/DL 11.2-15.7 HEMATOCRIT (BEAKER) (test uslu=938) 21.8 % 34.1-44.9 MEAN CORPUSCULAR VOLUME (BEAKER) (test cfjw=784) 70.8 fL 79.4-94.8 MEAN CORPUSCULAR HEMOGLOBIN (BEAKER) (test niig=769) 22.1 pg 25.6-32.2 MEAN CORPUSCULAR HEMOGLOBIN CONC (BEAKER) (test mcyh=392) 31.2 GM/DL 32.2-35.5 RED CELL DISTRIBUTION WIDTH (BEAKER) (test hwzn=002) 16.4 % 11.7-14.4 PLATELET COUNT (BEAKER) (test rwhh=632) 174 K/CU MM 150-450 MEAN PLATELET VOLUME (BEAKER) (test jbnb=362) 10.1 fL 9.4-12.3 NUCLEATED RED BLOOD CELLS (BEAKER) (test mvnm=938) 0 /100 WBC 0-0 NEUTROPHILS RELATIVE PERCENT (BEAKER) (test wnkk=669) 48 % LYMPHOCYTES RELATIVE PERCENT (BEAKER) (test frhp=898) 32 % MONOCYTES RELATIVE PERCENT (BEAKER) (test tkda=528) 13 % EOSINOPHILS RELATIVE PERCENT (BEAKER) (test mczd=142) 6 % BASOPHILS RELATIVE PERCENT (BEAKER) (test wmms=924) 1 % NEUTROPHILS ABSOLUTE COUNT (BEAKER) (test napb=703) 3.12 K/ L 1.56-6.13 LYMPHOCYTES ABSOLUTE COUNT (BEAKER) (test pulh=514) 2.04 K/ L 1.18-3.74 MONOCYTES ABSOLUTE COUNT (BEAKER) (test kerf=833) 0.83 K/ L 0.24-0.36 EOSINOPHILS ABSOLUTE COUNT (BEAKER) (test dniz=953) 0.38 K/ L 0.04-0.36 BASOPHILS ABSOLUTE COUNT (BEAKER) (test clig=037) 0.08 K/ L 0.01-0.08 IMMATURE GRANULOCYTES-RELATIVE PERCENT (BEAKER) (test jnll=2099) 0 % 0-1 RETICULOCYTE [id number] 06:43:00* Test Item Value Reference Range Comments RETICULOCYTE COUNT PCT (BEAKER) (test ttdd=030) 3.2 % 0.5-1.7 Poker Dealer ID - [id number] 04:48:00* Test Item Value Reference Range Comments FERRITIN (BEAKER) (test ftzm=749) 1983 ng/mL 5-275 Poker Dealer ID - RASHI [facility] W/PLT COUNT & AUTO [id number] 03:55:00* Test Item Value Reference Range Comments WHITE BLOOD CELL COUNT (BEAKER) (test ouly=007) 7.7 K/ L 3.5-10.5 RED BLOOD CELL COUNT (BEAKER) (test fhcp=187) 3.23 M/ L 3.93-5.22 HEMOGLOBIN (BEAKER) (test wocp=643) 7.2 GM/DL 11.2-15.7 HEMATOCRIT (BEAKER) (test eivo=868) 22.6 % 34.1-44.9 MEAN CORPUSCULAR VOLUME (BEAKER) (test mybd=154) 70.0 fL 79.4-94.8 MEAN CORPUSCULAR HEMOGLOBIN (BEAKER) (test giyj=388) 22.3 pg 25.6-32.2 MEAN CORPUSCULAR HEMOGLOBIN CONC (BEAKER) (test mjme=513) 31.9 GM/DL 32.2-35.5 RED CELL DISTRIBUTION WIDTH (BEAKER) (test bmvc=274) 16.5 % 11.7-14.4 PLATELET COUNT (BEAKER) (test nmzh=608) 199 K/CU MM 150-450 MEAN PLATELET VOLUME (BEAKER) (test pxth=929) 9.7 fL 9.4-12.3 NUCLEATED RED BLOOD CELLS (BEAKER) (test hljb=724) 0 /100 WBC 0-0 NEUTROPHILS RELATIVE PERCENT (BEAKER) (test hcup=675) 61 % LYMPHOCYTES RELATIVE PERCENT (BEAKER) (test qdad=792) 22 % MONOCYTES RELATIVE PERCENT (BEAKER) (test iufd=252) 13 % EOSINOPHILS RELATIVE PERCENT (BEAKER) (test glcs=448) 3 % BASOPHILS RELATIVE PERCENT (BEAKER) (test skfc=732) 1 % NEUTROPHILS ABSOLUTE COUNT (BEAKER) (test einw=543) 4.72 K/ L 1.56-6.13 LYMPHOCYTES ABSOLUTE COUNT (BEAKER) (test omia=799) 1.73 K/ L 1.18-3.74 MONOCYTES ABSOLUTE COUNT (BEAKER) (test yufn=981) 0.97 K/ L 0.24-0.36 EOSINOPHILS ABSOLUTE COUNT (BEAKER) (test dvig=013) 0.20 K/ L 0.04-0.36 BASOPHILS ABSOLUTE COUNT (BEAKER) (test yoot=797) 0.07 K/ L 0.01-0.08 IMMATURE GRANULOCYTES-RELATIVE PERCENT (BEAKER) (test wjym=9988) 1 % 0-1 RETICULOCYTE [id number] 03:55:00* Test Item Value Reference Range Comments RETICULOCYTE COUNT PCT (BEAKER) (test mjhy=983) 4.7 % 0.5-1.7 Poker Dealer ID - [id number] 19:06:00* Test Item Value Reference Range Comments PROCALCITONIN (BEAKER) (test yyvl=1901) < ng/mL <0.05 SEPSIS RISK (ng/mL)Low: 0.05-0.50Intermediate: 0.51-2.00High: > =2.01COMPREHENSIVE METABOLIC [id number] 18:31:00* Test Item Value Reference Range Comments TOTAL PROTEIN (BEAKER) (test pbvp=845) 6.6 gm/dL 6.0-8.3 ALBUMIN (BEAKER) (test pfxq=3689) 4.4 g/dL 3.5-5.0 ALKALINE PHOSPHATASE (BEAKER) (test euxi=729) 63 U/L 40-150 BILIRUBIN TOTAL (BEAKER) (test oitx=092) 0.9 mg/dL 0.2-1.2 SODIUM (BEAKER) (test pxvh=553) 139 meq/L 136-145 POTASSIUM (BEAKER) (test eryt=435) 4.2 meq/L 3.5-5.1 CHLORIDE (BEAKER) (test kcay=255) 108 meq/L 98-107 CO2 (BEAKER) (test nseq=049) 27 meq/L 22-29 BLOOD UREA NITROGEN (BEAKER) (test xozy=791) 5 mg/dL 7-21 CREATININE (BEAKER) (test iega=528) 0.58 mg/dL 0.57-1.25 GLUCOSE RANDOM (BEAKER) (test owta=298) 89 mg/dL 70-105 CALCIUM (BEAKER) (test ioie=562) 8.6 mg/dL 8.4-10.2 AST (SGOT) (BEAKER) (test iwgt=213) 12 U/L 5-34 ALT (SGPT) (BEAKER) (test pybx=050) 6 U/L 6-55 EGFR (BEAKER) (test qgjc=6906) 156 mL/min/1.73 sq m ESTIMATED GFR IS NOT ACCURATE CREATININE CLEARANCE IN PREDICTING GLOMERULAR FILTRATION RATE. ESTIMATED GFR IS NOT APPLICABLE FOR DIALYSIS PATIENTS. Poker Dealer ELTON - EDWIN [facility] W/PLT COUNT & AUTO [id number] 18:03:00* Test Item Value Reference Range Comments WHITE BLOOD CELL COUNT (BEAKER) (test kwtd=578) 8.2 K/ L 3.5-10.5 RED BLOOD CELL COUNT (BEAKER) (test rmwg=871) 3.41 M/ L 3.93-5.22 HEMOGLOBIN (BEAKER) (test pnpp=453) 7.5 GM/DL 11.2-15.7 HEMATOCRIT (BEAKER) (test mdiy=608) 23.9 % 34.1-44.9 MEAN CORPUSCULAR VOLUME (BEAKER) (test maqo=867) 70.1 fL 79.4-94.8 MEAN CORPUSCULAR HEMOGLOBIN (BEAKER) (test lmfa=129) 22.0 pg 25.6-32.2 MEAN CORPUSCULAR HEMOGLOBIN CONC (BEAKER) (test lxtj=429) 31.4 GM/DL 32.2-35.5 RED CELL DISTRIBUTION WIDTH (BEAKER) (test lpfa=923) 16.9 % 11.7-14.4 PLATELET COUNT (BEAKER) (test vnjd=956) 224 K/CU MM 150-450 MEAN PLATELET VOLUME (BEAKER) (test cvdq=243) 9.9 fL 9.4-12.3 NUCLEATED RED BLOOD CELLS (BEAKER) (test kway=298) 1 /100 WBC 0-0 NEUTROPHILS RELATIVE PERCENT (BEAKER) (test xuem=954) 68 % LYMPHOCYTES RELATIVE PERCENT (BEAKER) (test sjlm=600) 17 % MONOCYTES RELATIVE PERCENT (BEAKER) (test noeh=188) 13 % EOSINOPHILS RELATIVE PERCENT (BEAKER) (test ptqq=332) 1 % BASOPHILS RELATIVE PERCENT (BEAKER) (test zzip=300) 1 % NEUTROPHILS ABSOLUTE COUNT (BEAKER) (test tbms=142) 5.57 K/ L 1.56-6.13 LYMPHOCYTES ABSOLUTE COUNT (BEAKER) (test xziy=282) 1.41 K/ L 1.18-3.74 MONOCYTES ABSOLUTE COUNT (BEAKER) (test hpuq=856) 1.02 K/ L 0.24-0.36 EOSINOPHILS ABSOLUTE COUNT (BEAKER) (test eqog=743) 0.09 K/ L 0.04-0.36 BASOPHILS ABSOLUTE COUNT (BEAKER) (test gjhl=433) 0.05 K/ L 0.01-0.08 IMMATURE GRANULOCYTES-RELATIVE PERCENT (BEAKER) (test qdri=0480) 1 % 0-1 URINE [id number] 08:12:00* Test Item Value Reference Range Comments CULTURE (BEAKER) (test duqy=5383) >100,000 col/mL skin lola URINALYSIS W/ [id number] 06:17:00* Test Item Value Reference Range Comments COLOR (BEAKER) (test bcxp=706) Light Yellow CLARITY (BEAKER) (test focx=081) Clear SPECIFIC GRAVITY UA (BEAKER) (test nojn=287) 1.007 1.001-1.035 PH UA (BEAKER) (test nkaw=393) 7.0 5.0-8.0 PROTEIN UA (BEAKER) (test gpjg=007) Negative Negative GLUCOSE UA (BEAKER) (test ovrn=773) Negative Negative KETONES UA (BEAKER) (test tmsi=706) Negative Negative BILIRUBIN UA (BEAKER) (test ceab=021) Negative Negative BLOOD UA (BEAKER) (test jblv=780) Small Negative NITRITE UA (BEAKER) (test hdko=100) Negative Negative LEUKOCYTE ESTERASE UA (BEAKER) (test qrvl=217) Negative Negative UROBILINOGEN UA (BEAKER) (test gtfu=131) 0.2 mg/dL 0.2-1.0 RBC UA (BEAKER) (test laoh=458) 1 /HPF WBC UA (BEAKER) (test yxhm=446) 1 /HPF SQUAMOUS EPITHELIAL (BEAKER) (test alvc=607) 2 /HPF AMORPHOUS CRYSTALS (BEAKER) (test fltv=7544) Rare SOURCE(BEAKER) (test wkge=8226) Poker Dealer ID - [auto]CT, CHEST, WITHOUT [id number] 06:15:00Reason for exam:->SICKLE CELL PAIN CRISISReason for exam:->CHEST PAINIs the patient ?->NoWhat is the patient's sedation requirement?->No SedationFINAL REPORT CT, CHEST, WITHOUT CONTRAST INDICATION: Shortness of breathSICKLE CELL PAIN CRISISCHEST PAIN COMPARISON: July 28, 2019 JEFF HNIQUE: Axially oriented images were obtained from the thoracic inlet through t he lung bases without IV contrast administration. Coronal and sagittal reformat s were provided. DOSE REDUCTION: Dose modulation, iterative reconstruction, and/ or weight-based adjustment of the mA/kV was utilized to reduce the radiation dos e to as low as reasonably achievable. FINDINGS: Lungs and Pleura: Basilar bandli ke opacities, greater on the left are noted. No effusion or pneumothorax. Centra l airways: Patent. Mediastinum: No adenopathy. Heart and pericardium: Hypodense vascular blood pool. Heart size is normal. No significant pericardial effusion. Great vessels: No acute findings Included upper abdomen: Stable splenic mixed at tenuation concerning for chronic ischemia. Regional skeletal structures: Multile jill vertebral body biconcave deformities and heterogeneous osseous mineralizatio n consistent with history of sickle cell disease. Additional findings: None. IMP RESSION: Stable bibasilar pulmonary opacities, greater on the left, likely atele ctasis or fibrosis. Stigmata of sickle cell disease. Signed: Gray Ramos eport Verified Date/Time: 11/07/2019 06:15:01 EN, [id number] 05:15:00* Test Item Value Reference Range Comments TEST URINE (BEAKER) (test rhim=394) Negative RAPID INFLUENZA A&B [id number] 03:32:00* Test Item Value Reference Range Comments RAPID INFLUENZA A AG (BEAKER) (test mjjl=1763) Negative Negative, Inconclusive RAPID INFLUENZA B AG (BEAKER) (test irwe=2533) Negative Negative, Inconclusive CBC W/PLT COUNT & AUTO [id number] 23:59:00* Test Item Value Reference Range Comments WHITE BLOOD CELL COUNT (BEAKER) (test kzbp=939) 23.0 K/ L 3.5-10.5 RED BLOOD CELL COUNT (BEAKER) (test cskt=083) 3.94 M/ L 3.93-5.22 HEMOGLOBIN (BEAKER) (test xfig=744) 8.6 GM/DL 11.2-15.7 HEMATOCRIT (BEAKER) (test nrzk=977) 27.7 % 34.1-44.9 MEAN CORPUSCULAR VOLUME (BEAKER) (test cgdx=966) 70.3 fL 79.4-94.8 MEAN CORPUSCULAR HEMOGLOBIN (BEAKER) (test zewx=240) 21.8 pg 25.6-32.2 MEAN CORPUSCULAR HEMOGLOBIN CONC (BEAKER) (test dvdd=282) 31.0 GM/DL 32.2-35.5 RED CELL DISTRIBUTION WIDTH (BEAKER) (test elsf=815) 17.7 % 11.7-14.4 PLATELET COUNT (BEAKER) (test uwuf=236) 256 K/CU MM 150-450 MEAN PLATELET VOLUME (BEAKER) (test nvkr=834) 9.9 fL 9.4-12.3 NUCLEATED RED BLOOD CELLS (BEAKER) (test thhf=604) 1 /100 WBC 0-0 (CELLAVISION MANUAL DIFF)2019-11-06 23:59:00* Test Item Value Reference Range Comments NEUTROPHILS - REL (CELLAVISION)(BEAKER) (test rlbn=9558) 82 % LYMPHOCYTES - REL (CELLAVISION)(BEAKER) (test fsjf=4786) 12 % MONOCYTES - REL (CELLAVISION)(BEAKER) (test pbqm=2339) 5 % METAMYELOCYTES - REL (CELLAVISION)(BEAKER) (test ipgf=4549) 1 % 0-0 NEUTROPHILS - ABS (CELLAVISION)(BEAKER) (test fkve=2146) 18.86 K/ul 1.56-6.13 LYMPHOCYTES - ABS (CELLAVISION)(BEAKER) (test mkcz=5185) 2.76 K/ul 1.18-3.74 MONOCYTES - ABS (CELLAVISION)(BEAKER) (test oarn=9689) 1.15 K/uL 0.24-0.36 METAMYELOCYTES - ABS (CELLAVISION)(BEAKER) (test xvuo=6190) 0.23 K/uL 0.00-0.00 TOTAL COUNTED (BEAKER) (test oudg=3868) 100 MANUAL NRBC PER 100 CELLS (BEAKER) (test imto=9036) 1 /100 WBC 0-0 SMUDGE CELLS (BEAKER) (test izev=7684) Present GIANT PLATELETS (BEAKER) (test ixge=308) Present POLYCHROMATOPHILLIC RBCS(BEAKER) (test jswb=588) 2+ moderate HYPOCHROMIA (BEAKER) (test kvfz=438) 2+ moderate ANISOCYTOSIS (BEAKER) (test pbdj=361) 1+ few MICROCYTES (BEAKER) (test oiui=721) 1+ few POIKILOCYTES (BEAKER) (test crmp=651) 2+ moderate TARGET CELLS (BEAKER) (test ttdc=978) 2+ moderate SCHISTOCYTES (BEAKER) (test idtm=633) 1+ few SICKLE CELLS (BEAKER) (test swoe=243) 2+ moderate OVALOCYTES (BEAKER) (test oazp=543) 1+ few TEAR DROP CELLS (BEAKER) (test qprk=761) 1+ few FERNANDO-JOLLY BODIES (BEAKER) (test jkgk=270) 1+ few PLATELET CONCENTRATION (CELLAVISION)(BEAKER) (test wjbp=9753) Adequate Poker Dealer ID - Mandy Mclaughlin comments: Slide comments: RETICULOCYTE COUNT 2019-11-06 23:06:00* Test Item Value Reference Range Comments RETICULOCYTE COUNT PCT (BEAKER) (test vclk=193) 7.4 % 0.5-1.7 Poker Dealer ID - [id number] W/PLT COUNT & AUTO [id number] 12:48:00* Test Item Value Reference Range Comments WHITE BLOOD CELL COUNT (BEAKER) (test cnbb=015) 9.3 K/ L 3.5-10.5 RED BLOOD CELL COUNT (BEAKER) (test quhj=378) 3.66 M/ L 3.93-5.22 HEMOGLOBIN (BEAKER) (test vakg=647) 8.0 GM/DL 11.2-15.7 HEMATOCRIT (BEAKER) (test oyrk=035) 25.3 % 34.1-44.9 MEAN CORPUSCULAR VOLUME (BEAKER) (test dmwg=609) 69.1 fL 79.4-94.8 MEAN CORPUSCULAR HEMOGLOBIN (BEAKER) (test zilq=827) 21.9 pg 25.6-32.2 MEAN CORPUSCULAR HEMOGLOBIN CONC (BEAKER) (test mlag=444) 31.6 GM/DL 32.2-35.5 RED CELL DISTRIBUTION WIDTH (BEAKER) (test yjow=894) 18.2 % 11.7-14.4 PLATELET COUNT (BEAKER) (test aicx=402) 247 K/CU MM 150-450 MEAN PLATELET VOLUME (BEAKER) (test celg=696) 9.9 fL 9.4-12.3 NUCLEATED RED BLOOD CELLS (BEAKER) (test qczx=561) 1 /100 WBC 0-0 NEUTROPHILS RELATIVE PERCENT (BEAKER) (test mhfh=494) 72 % LYMPHOCYTES RELATIVE PERCENT (BEAKER) (test rkxj=827) 17 % MONOCYTES RELATIVE PERCENT (BEAKER) (test hajn=466) 8 % EOSINOPHILS RELATIVE PERCENT (BEAKER) (test bbzm=023) 2 % BASOPHILS RELATIVE PERCENT (BEAKER) (test fllk=422) 1 % NEUTROPHILS ABSOLUTE COUNT (BEAKER) (test nenq=671) 6.68 K/ L 1.56-6.13 LYMPHOCYTES ABSOLUTE COUNT (BEAKER) (test suoe=319) 1.54 K/ L 1.18-3.74 MONOCYTES ABSOLUTE COUNT (BEAKER) (test guai=538) 0.77 K/ L 0.24-0.36 EOSINOPHILS ABSOLUTE COUNT (BEAKER) (test yyuq=444) 0.18 K/ L 0.04-0.36 BASOPHILS ABSOLUTE COUNT (BEAKER) (test zhqh=163) 0.12 K/ L 0.01-0.08 IMMATURE GRANULOCYTES-RELATIVE PERCENT (BEAKER) (test eevs=7334) 0 % 0-1 RETICULOCYTE [id number] 12:48:00* Test Item Value Reference Range Comments RETICULOCYTE COUNT PCT (BEAKER) (test wjyw=501) 6.5 % 0.5-1.7 Poker Dealer ID - [id number] 12:48:00* Test Item Value Reference Range Comments LIPASE (BEAKER) (test iela=350) 7 U/L 8-78 Poker Dealer ID - NTPBASIC METABOLIC [id number] 12:48:00* Test Item Value Reference Range Comments SODIUM (BEAKER) (test ixwo=910) 141 meq/L 136-145 POTASSIUM (BEAKER) (test toks=507) 3.9 meq/L 3.5-5.1 CHLORIDE (BEAKER) (test llnb=959) 107 meq/L 98-107 CO2 (BEAKER) (test rtss=555) 27 meq/L 22-29 BLOOD UREA NITROGEN (BEAKER) (test hrip=189) 5 mg/dL 7-21 CREATININE (BEAKER) (test gtab=806) 0.56 mg/dL 0.57-1.25 GLUCOSE RANDOM (BEAKER) (test bxhu=458) 96 mg/dL 70-105 CALCIUM (BEAKER) (test gqmg=140) 9.2 mg/dL 8.4-10.2 EGFR (BEAKER) (test dhxz=0854) 163 mL/min/1.73 sq m ESTIMATED GFR IS NOT ACCURATE CREATININE CLEARANCE IN PREDICTING GLOMERULAR FILTRATION RATE. ESTIMATED GFR IS NOT APPLICABLE FOR DIALYSIS PATIENTS. Poker Dealer ID - NTPHEPATIC FUNCTION [id number] 12:48:00* Test Item Value Reference Range Comments TOTAL PROTEIN (BEAKER) (test cqcy=228) 6.7 gm/dL 6.0-8.3 ALBUMIN (BEAKER) (test dwuz=4143) 4.5 g/dL 3.5-5.0 BILIRUBIN TOTAL (BEAKER) (test rnog=972) 1.4 mg/dL 0.2-1.2 BILIRUBIN DIRECT (BEAKER) (test dgay=156) 0.6 mg/dL 0.1-0.5 ALKALINE PHOSPHATASE (BEAKER) (test obbw=241) 79 U/L 40-150 AST (SGOT) (BEAKER) (test ozlh=870) 18 U/L 5-34 ALT (SGPT) (BEAKER) (test nckf=364) 8 U/L 6-55 Poker Dealer ID - NTPLACTATE DEHYDROGENASE (LDH)2019-10-31 12:48:00* Test Item Value Reference Range Comments LACTATE DEHYDROGENASE (BEAKER) (test hizz=712) 244 U/L 125-220 Poker Dealer ID - NTPURINALYSIS W/ REFLEX URINE [id number] 12:16:00* Test Item Value Reference Range Comments COLOR (BEAKER) (test rzua=250) Yellow CLARITY (BEAKER) (test nquv=457) Hazy SPECIFIC GRAVITY UA (BEAKER) (test ufnd=583) 1.004 1.001-1.035 PH UA (BEAKER) (test ecyt=624) 7.0 5.0-8.0 PROTEIN UA (BEAKER) (test cehb=034) Negative Negative GLUCOSE UA (BEAKER) (test qpet=117) Negative Negative KETONES UA (BEAKER) (test mleo=135) Negative Negative BILIRUBIN UA (BEAKER) (test cgod=232) Negative Negative BLOOD UA (BEAKER) (test hddv=010) Negative Negative NITRITE UA (BEAKER) (test kgoh=797) Negative Negative LEUKOCYTE ESTERASE UA (BEAKER) (test lvbt=541) Negative Negative UROBILINOGEN UA (BEAKER) (test brpo=141) 0.2 mg/dL 0.2-1.0 RBC UA (BEAKER) (test dcrf=314) 3 /HPF WBC UA (BEAKER) (test cxxz=749) 1 /HPF BACTERIA (BEAKER) (test xbzx=161) Rare SQUAMOUS EPITHELIAL (BEAKER) (test oweg=167) 10 /HPF SOURCE(BEAKER) (test wenw=9597) Poker Dealer ID - [auto]Poker Dealer ID - techPREGNANCY SCREEN, [id number] 11:48:00 * Test Item Value Reference Range Comments TEST URINE (BEAKER) (test bpft=843) Negative HEMOGLOBIN AND [id number] 14:28:00* Test Item Value Reference Range Comments HEMOGLOBIN (BEAKER) (test bdic=830) 6.6 GM/DL 11.2-15.7 HEMATOCRIT (BEAKER) (test kujw=047) 20.6 % 34.1-44.9 LACTATE DEHYDROGENASE (LDH)2019-10-03 11:30:00* Test Item Value Reference Range Comments LACTATE DEHYDROGENASE (BEAKER) (test rlcp=283) 225 U/L 125-220 COMPREHENSIVE METABOLIC [id number] 11:30:00* Test Item Value Reference Range Comments TOTAL PROTEIN (BEAKER) (test ramt=711) 5.9 gm/dL 6.0-8.3 ALBUMIN (BEAKER) (test gifa=9960) 3.8 g/dL 3.5-5.0 ALKALINE PHOSPHATASE (BEAKER) (test uomf=110) 58 U/L 40-150 BILIRUBIN TOTAL (BEAKER) (test qtrh=250) 0.9 mg/dL 0.2-1.2 SODIUM (BEAKER) (test lkdl=030) 143 meq/L 136-145 POTASSIUM (BEAKER) (test tons=947) 3.6 meq/L 3.5-5.1 CHLORIDE (BEAKER) (test qdlg=198) 111 meq/L 98-107 CO2 (BEAKER) (test vqzw=963) 26 meq/L 22-29 BLOOD UREA NITROGEN (BEAKER) (test nmlg=116) 6 mg/dL 7-21 CREATININE (BEAKER) (test jhse=257) 0.51 mg/dL 0.57-1.25 GLUCOSE RANDOM (BEAKER) (test fisv=059) 112 mg/dL 70-105 CALCIUM (BEAKER) (test mjzz=063) 8.5 mg/dL 8.4-10.2 AST (SGOT) (BEAKER) (test jdab=360) 14 U/L 5-34 ALT (SGPT) (BEAKER) (test xoqx=394) 7 U/L 6-55 EGFR (BEAKER) (test kkhp=4288) 181 mL/min/1.73 sq m ESTIMATED GFR IS NOT ACCURATE CREATININE CLEARANCE IN PREDICTING GLOMERULAR FILTRATION RATE. ESTIMATED GFR IS NOT APPLICABLE FOR DIALYSIS PATIENTS. RETICULOCYTE [id number] 11:02:00* Test Item Value Reference Range Comments RETICULOCYTE COUNT PCT (BEAKER) (test ccmg=504) 3.6 % 0.5-1.7 CBC W/PLT COUNT & AUTO [id number] 11:02:00* Test Item Value Reference Range Comments WHITE BLOOD CELL COUNT (BEAKER) (test bjex=957) 7.9 K/ L 3.5-10.5 RED BLOOD CELL COUNT (BEAKER) (test wwmf=029) 2.78 M/ L 3.93-5.22 HEMOGLOBIN (BEAKER) (test tucq=356) 6.1 GM/DL 11.2-15.7 HEMATOCRIT (BEAKER) (test ewyy=321) 19.6 % 34.1-44.9 MEAN CORPUSCULAR VOLUME (BEAKER) (test zjbb=231) 70.5 fL 79.4-94.8 MEAN CORPUSCULAR HEMOGLOBIN (BEAKER) (test xykq=788) 21.9 pg 25.6-32.2 MEAN CORPUSCULAR HEMOGLOBIN CONC (BEAKER) (test gyay=319) 31.1 GM/DL 32.2-35.5 RED CELL DISTRIBUTION WIDTH (BEAKER) (test rbml=499) 15.0 % 11.7-14.4 PLATELET COUNT (BEAKER) (test xjga=246) 188 K/CU MM 150-450 MEAN PLATELET VOLUME (BEAKER) (test gjnc=355) 10.3 fL 9.4-12.3 NUCLEATED RED BLOOD CELLS (BEAKER) (test xsow=966) 0 /100 WBC 0-0 NEUTROPHILS RELATIVE PERCENT (BEAKER) (test hmda=222) 58 % LYMPHOCYTES RELATIVE PERCENT (BEAKER) (test mtih=410) 25 % MONOCYTES RELATIVE PERCENT (BEAKER) (test zsyw=478) 14 % EOSINOPHILS RELATIVE PERCENT (BEAKER) (test ubpl=859) 2 % BASOPHILS RELATIVE PERCENT (BEAKER) (test tvyv=739) 1 % NEUTROPHILS ABSOLUTE COUNT (BEAKER) (test iqqw=704) 4.58 K/ L 1.56-6.13 LYMPHOCYTES ABSOLUTE COUNT (BEAKER) (test tukl=095) 1.93 K/ L 1.18-3.74 MONOCYTES ABSOLUTE COUNT (BEAKER) (test ljyh=163) 1.11 K/ L 0.24-0.36 EOSINOPHILS ABSOLUTE COUNT (BEAKER) (test fzmn=558) 0.15 K/ L 0.04-0.36 BASOPHILS ABSOLUTE COUNT (BEAKER) (test lsap=606) 0.09 K/ L 0.01-0.08 IMMATURE GRANULOCYTES-RELATIVE PERCENT (BEAKER) (test psbh=5893) 0 % 0-1 HEMOGLOBIN AND [id number] 11:39:00* Test Item Value Reference Range Comments HEMOGLOBIN (BEAKER) (test lpdy=542) 7.0 GM/DL 11.2-15.7 HEMATOCRIT (BEAKER) (test ejsr=658) 21.7 % 34.1-44.9 No clotCOMPREHENSIVE METABOLIC [id number] 05:16:00* Test Item Value Reference Range Comments TOTAL PROTEIN (BEAKER) (test ikdz=138) 6.3 gm/dL 6.0-8.3 ALBUMIN (BEAKER) (test qhqq=9946) 4.1 g/dL 3.5-5.0 ALKALINE PHOSPHATASE (BEAKER) (test igmm=803) 60 U/L 40-150 BILIRUBIN TOTAL (BEAKER) (test gkxl=865) 1.0 mg/dL 0.2-1.2 SODIUM (BEAKER) (test dksm=438) 142 meq/L 136-145 POTASSIUM (BEAKER) (test qglz=889) 3.7 meq/L 3.5-5.1 CHLORIDE (BEAKER) (test hrrf=757) 109 meq/L 98-107 CO2 (BEAKER) (test rnve=639) 27 meq/L 22-29 BLOOD UREA NITROGEN (BEAKER) (test hwze=589) 5 mg/dL 7-21 CREATININE (BEAKER) (test vtyf=171) 0.52 mg/dL 0.57-1.25 GLUCOSE RANDOM (BEAKER) (test ihwc=551) 103 mg/dL 70-105 CALCIUM (BEAKER) (test ohhv=027) 8.7 mg/dL 8.4-10.2 AST (SGOT) (BEAKER) (test sawd=626) 17 U/L 5-34 ALT (SGPT) (BEAKER) (test vwko=304) 9 U/L 6-55 EGFR (BEAKER) (test vlpk=2081) 177 mL/min/1.73 sq m ESTIMATED GFR IS NOT ACCURATE CREATININE CLEARANCE IN PREDICTING GLOMERULAR FILTRATION RATE. ESTIMATED GFR IS NOT APPLICABLE FOR DIALYSIS PATIENTS. CBC W/PLT COUNT & AUTO [id number] 05:04:00* Test Item Value Reference Range Comments WHITE BLOOD CELL COUNT (BEAKER) (test qsqa=571) 9.4 K/ L 3.5-10.5 RED BLOOD CELL COUNT (BEAKER) (test rpij=317) 3.07 M/ L 3.93-5.22 HEMOGLOBIN (BEAKER) (test ywwa=942) 6.7 GM/DL 11.2-15.7 HEMATOCRIT (BEAKER) (test nxco=795) 21.5 % 34.1-44.9 MEAN CORPUSCULAR VOLUME (BEAKER) (test ydgx=484) 70.0 fL 79.4-94.8 MEAN CORPUSCULAR HEMOGLOBIN (BEAKER) (test qrsb=515) 21.8 pg 25.6-32.2 MEAN CORPUSCULAR HEMOGLOBIN CONC (BEAKER) (test misx=865) 31.2 GM/DL 32.2-35.5 RED CELL DISTRIBUTION WIDTH (BEAKER) (test jdnu=635) 15.5 % 11.7-14.4 PLATELET COUNT (BEAKER) (test jzdy=727) 234 K/CU MM 150-450 MEAN PLATELET VOLUME (BEAKER) (test mbbc=789) 10.2 fL 9.4-12.3 NUCLEATED RED BLOOD CELLS (BEAKER) (test tzhc=881) 0 /100 WBC 0-0 NEUTROPHILS RELATIVE PERCENT (BEAKER) (test limo=682) 62 % LYMPHOCYTES RELATIVE PERCENT (BEAKER) (test jyum=387) 23 % MONOCYTES RELATIVE PERCENT (BEAKER) (test zpsp=226) 11 % EOSINOPHILS RELATIVE PERCENT (BEAKER) (test kvex=608) 2 % BASOPHILS RELATIVE PERCENT (BEAKER) (test nzwv=253) 1 % NEUTROPHILS ABSOLUTE COUNT (BEAKER) (test utan=505) 5.85 K/ L 1.56-6.13 LYMPHOCYTES ABSOLUTE COUNT (BEAKER) (test erlg=082) 2.17 K/ L 1.18-3.74 MONOCYTES ABSOLUTE COUNT (BEAKER) (test aidm=791) 1.05 K/ L 0.24-0.36 EOSINOPHILS ABSOLUTE COUNT (BEAKER) (test ptol=674) 0.22 K/ L 0.04-0.36 BASOPHILS ABSOLUTE COUNT (BEAKER) (test qwrz=073) 0.08 K/ L 0.01-0.08 IMMATURE GRANULOCYTES-RELATIVE PERCENT (BEAKER) (test prpo=4884) 0 % 0-1 RETICULOCYTE [id number] 05:45:00* Test Item Value Reference Range Comments RETICULOCYTE COUNT PCT (BEAKER) (test diyv=538) 6.0 % 0.5-1.7 CBC W/PLT COUNT & AUTO [id number] 05:45:00* Test Item Value Reference Range Comments WHITE BLOOD CELL COUNT (BEAKER) (test ostj=024) 9.0 K/ L 3.5-10.5 RED BLOOD CELL COUNT (BEAKER) (test rejr=797) 3.46 M/ L 3.93-5.22 HEMOGLOBIN (BEAKER) (test tnrm=684) 7.7 GM/DL 11.2-15.7 HEMATOCRIT (BEAKER) (test ixmh=057) 24.6 % 34.1-44.9 MEAN CORPUSCULAR VOLUME (BEAKER) (test eogl=848) 71.1 fL 79.4-94.8 MEAN CORPUSCULAR HEMOGLOBIN (BEAKER) (test labb=537) 22.3 pg 25.6-32.2 MEAN CORPUSCULAR HEMOGLOBIN CONC (BEAKER) (test ybww=927) 31.3 GM/DL 32.2-35.5 RED CELL DISTRIBUTION WIDTH (BEAKER) (test nmhf=809) 15.0 % 11.7-14.4 PLATELET COUNT (BEAKER) (test xkto=668) 261 K/CU MM 150-450 MEAN PLATELET VOLUME (BEAKER) (test ocda=472) 10.1 fL 9.4-12.3 NUCLEATED RED BLOOD CELLS (BEAKER) (test kioz=812) 0 /100 WBC 0-0 NEUTROPHILS RELATIVE PERCENT (BEAKER) (test vmey=230) 65 % LYMPHOCYTES RELATIVE PERCENT (BEAKER) (test iwtt=204) 21 % MONOCYTES RELATIVE PERCENT (BEAKER) (test yfgr=685) 11 % EOSINOPHILS RELATIVE PERCENT (BEAKER) (test mcqy=088) 2 % BASOPHILS RELATIVE PERCENT (BEAKER) (test wgna=340) 1 % NEUTROPHILS ABSOLUTE COUNT (BEAKER) (test lbzp=845) 5.83 K/ L 1.56-6.13 LYMPHOCYTES ABSOLUTE COUNT (BEAKER) (test ownm=439) 1.92 K/ L 1.18-3.74 MONOCYTES ABSOLUTE COUNT (BEAKER) (test skka=985) 1.03 K/ L 0.24-0.36 EOSINOPHILS ABSOLUTE COUNT (BEAKER) (test npbk=089) 0.14 K/ L 0.04-0.36 BASOPHILS ABSOLUTE COUNT (BEAKER) (test tibs=013) 0.09 K/ L 0.01-0.08 IMMATURE GRANULOCYTES-RELATIVE PERCENT (BEAKER) (test wapq=4861) 0 % 0-1 LACTATE DEHYDROGENASE (LDH)2019-10-01 05:28:00* Test Item Value Reference Range Comments LACTATE DEHYDROGENASE (BEAKER) (test dlcn=151) 306 U/L 125-220 COMPREHENSIVE METABOLIC [id number] 05:28:00* Test Item Value Reference Range Comments TOTAL PROTEIN (BEAKER) (test xcgk=177) 6.9 gm/dL 6.0-8.3 ALBUMIN (BEAKER) (test xace=9528) 4.4 g/dL 3.5-5.0 ALKALINE PHOSPHATASE (BEAKER) (test mmlf=996) 58 U/L 40-150 BILIRUBIN TOTAL (BEAKER) (test srwt=891) 1.4 mg/dL 0.2-1.2 SODIUM (BEAKER) (test nppg=403) 140 meq/L 136-145 POTASSIUM (BEAKER) (test qiuj=553) 4.3 meq/L 3.5-5.1 CHLORIDE (BEAKER) (test qegm=558) 107 meq/L 98-107 CO2 (BEAKER) (test tjgp=019) 26 meq/L 22-29 BLOOD UREA NITROGEN (BEAKER) (test lokj=189) 5 mg/dL 7-21 CREATININE (BEAKER) (test mxvy=428) 0.59 mg/dL 0.57-1.25 GLUCOSE RANDOM (BEAKER) (test fdlm=753) 100 mg/dL 70-105 CALCIUM (BEAKER) (test altp=404) 9.2 mg/dL 8.4-10.2 AST (SGOT) (BEAKER) (test lssz=627) 16 U/L 5-34 ALT (SGPT) (BEAKER) (test tekh=448) 9 U/L 6-55 EGFR (BEAKER) (test hwqa=5387) 153 mL/min/1.73 sq m ESTIMATED GFR IS NOT ACCURATE CREATININE CLEARANCE IN PREDICTING GLOMERULAR FILTRATION RATE. ESTIMATED GFR IS NOT APPLICABLE FOR DIALYSIS PATIENTS. COMPREHENSIVE METABOLIC [id number] 14:15:00* Test Item Value Reference Range Comments TOTAL PROTEIN (BEAKER) (test owut=437) 7.7 gm/dL 6.0-8.3 ALBUMIN (BEAKER) (test agzn=1512) 4.9 g/dL 3.5-5.0 ALKALINE PHOSPHATASE (BEAKER) (test mbwz=860) 61 U/L 40-150 BILIRUBIN TOTAL (BEAKER) (test npap=165) 1.0 mg/dL 0.2-1.2 SODIUM (BEAKER) (test ohte=646) 139 meq/L 136-145 POTASSIUM (BEAKER) (test hekd=688) 3.7 meq/L 3.5-5.1 CHLORIDE (BEAKER) (test nfln=377) 104 meq/L 98-107 CO2 (BEAKER) (test jkyn=660) 26 meq/L 22-29 BLOOD UREA NITROGEN (BEAKER) (test ffkj=184) 4 mg/dL 7-21 CREATININE (BEAKER) (test ttsy=236) 0.60 mg/dL 0.57-1.25 GLUCOSE RANDOM (BEAKER) (test umvf=027) 110 mg/dL 70-105 CALCIUM (BEAKER) (test ipdx=797) 9.6 mg/dL 8.4-10.2 AST (SGOT) (BEAKER) (test nrdx=133) 16 U/L 5-34 ALT (SGPT) (BEAKER) (test vmdz=333) 9 U/L 6-55 EGFR (BEAKER) (test urev=6460) 150 mL/min/1.73 sq m ESTIMATED GFR IS NOT ACCURATE CREATININE CLEARANCE IN PREDICTING GLOMERULAR FILTRATION RATE. ESTIMATED GFR IS NOT APPLICABLE FOR DIALYSIS PATIENTS. CBC W/PLT COUNT & AUTO [id number] 07:25:00* Test Item Value Reference Range Comments WHITE BLOOD CELL COUNT (BEAKER) (test dvwi=711) 9.4 K/ L 3.5-10.5 RED BLOOD CELL COUNT (BEAKER) (test zfgv=157) 3.73 M/ L 3.93-5.22 HEMOGLOBIN (BEAKER) (test mapv=147) 8.3 GM/DL 11.2-15.7 HEMATOCRIT (BEAKER) (test fyea=187) 26.3 % 34.1-44.9 MEAN CORPUSCULAR VOLUME (BEAKER) (test yoao=331) 70.5 fL 79.4-94.8 MEAN CORPUSCULAR HEMOGLOBIN (BEAKER) (test ytrv=912) 22.3 pg 25.6-32.2 MEAN CORPUSCULAR HEMOGLOBIN CONC (BEAKER) (test efct=309) 31.6 GM/DL 32.2-35.5 RED CELL DISTRIBUTION WIDTH (BEAKER) (test ttaz=888) 15.7 % 11.7-14.4 PLATELET COUNT (BEAKER) (test swzq=459) 325 K/CU MM 150-450 MEAN PLATELET VOLUME (BEAKER) (test vlxn=827) 9.8 fL 9.4-12.3 NUCLEATED RED BLOOD CELLS (BEAKER) (test whhj=224) 0 /100 WBC 0-0 NEUTROPHILS RELATIVE PERCENT (BEAKER) (test bnuc=707) 85 % LYMPHOCYTES RELATIVE PERCENT (BEAKER) (test eyiv=979) 7 % MONOCYTES RELATIVE PERCENT (BEAKER) (test gtpb=232) 8 % EOSINOPHILS RELATIVE PERCENT (BEAKER) (test irgp=285) 0 % BASOPHILS RELATIVE PERCENT (BEAKER) (test bacy=177) 1 % NEUTROPHILS ABSOLUTE COUNT (BEAKER) (test vcfb=542) 7.90 K/ L 1.56-6.13 LYMPHOCYTES ABSOLUTE COUNT (BEAKER) (test ssdt=105) 0.63 K/ L 1.18-3.74 MONOCYTES ABSOLUTE COUNT (BEAKER) (test cxxe=377) 0.73 K/ L 0.24-0.36 EOSINOPHILS ABSOLUTE COUNT (BEAKER) (test lsns=023) 0.01 K/ L 0.04-0.36 BASOPHILS ABSOLUTE COUNT (BEAKER) (test ohem=501) 0.06 K/ L 0.01-0.08 IMMATURE GRANULOCYTES-RELATIVE PERCENT (BEAKER) (test vxiy=7199) 0 % 0-1 [id number] 16:49:00* Test Item Value Reference Range Comments PROCALCITONIN (BEAKER) (test hpjf=7949) < ng/mL <0.05 SEPSIS RISK (ng/mL)Low: 0.05-0.50Intermediate: 0.51-2.00High: > =2.01RAD, CHEST, 1 VIEW, NON [id number] 11:16:00Reason for exam:->sickle cell crisis, chest pain and new SOB, eval for ACSShould this be performed at the bedside?->YesFINAL REPORT INDICATION: sickle cell crisis, chest pain and new SOB, eval for ACS COMPARISON: September 27, 2019 TECHNIQUE: Single frontal view of the chest. FINDINGS: Lungs and pleura: Subsegmental atelectasis versus developing consolidation at the left base. Lungs are otherwise clear. No effusion.Heart and mediastinum: Normal heart size. Unremarkable mediastinal contours.Osseous structures: No acute abnormality.Other: None. IMPRESSION: Atelectasis versus developing consolidation at the left base. Signed: JR Ortiz Robert [facility]ICAL CENTEReport Verified Date/Time: 09/29/2019 11:16:10 Reading Location: [facility] B1 C013V Neuro Reading Room ATE DEHYDROGENASE (LDH)2019-09-29 06:42:00* Test Item Value Reference Range Comments LACTATE DEHYDROGENASE (BEAKER) (test fhzq=169) 311 U/L 125-220 COMPREHENSIVE METABOLIC [id number] 06:42:00* Test Item Value Reference Range Comments TOTAL PROTEIN (BEAKER) (test frmp=695) 6.4 gm/dL 6.0-8.3 ALBUMIN (BEAKER) (test nuxn=9271) 4.2 g/dL 3.5-5.0 ALKALINE PHOSPHATASE (BEAKER) (test hoor=315) 56 U/L 40-150 BILIRUBIN TOTAL (BEAKER) (test aapz=469) 1.5 mg/dL 0.2-1.2 SODIUM (BEAKER) (test ezue=928) 141 meq/L 136-145 POTASSIUM (BEAKER) (test zxnq=404) 4.1 meq/L 3.5-5.1 CHLORIDE (BEAKER) (test brbw=210) 108 meq/L 98-107 CO2 (BEAKER) (test bodw=548) 27 meq/L 22-29 BLOOD UREA NITROGEN (BEAKER) (test wjxh=381) 5 mg/dL 7-21 CREATININE (BEAKER) (test shjn=030) 0.53 mg/dL 0.57-1.25 GLUCOSE RANDOM (BEAKER) (test zpbi=630) 97 mg/dL 70-105 CALCIUM (BEAKER) (test ciyj=750) 8.9 mg/dL 8.4-10.2 AST (SGOT) (BEAKER) (test waus=274) 19 U/L 5-34 ALT (SGPT) (BEAKER) (test joqs=175) 10 U/L 6-55 EGFR (BEAKER) (test tdon=0077) 173 mL/min/1.73 sq m ESTIMATED GFR IS NOT ACCURATE CREATININE CLEARANCE IN PREDICTING GLOMERULAR FILTRATION RATE. ESTIMATED GFR IS NOT APPLICABLE FOR DIALYSIS PATIENTS. RETICULOCYTE [id number] 06:19:00* Test Item Value Reference Range Comments RETICULOCYTE COUNT PCT (BEAKER) (test okws=991) 9.1 % 0.5-1.7 CBC W/PLT COUNT & AUTO [id number] 06:18:00* Test Item Value Reference Range Comments WHITE BLOOD CELL COUNT (BEAKER) (test agtf=457) 9.1 K/ L 3.5-10.5 RED BLOOD CELL COUNT (BEAKER) (test cnxc=091) 3.25 M/ L 3.93-5.22 HEMOGLOBIN (BEAKER) (test txns=087) 7.3 GM/DL 11.2-15.7 HEMATOCRIT (BEAKER) (test inkv=643) 23.3 % 34.1-44.9 MEAN CORPUSCULAR VOLUME (BEAKER) (test uljm=711) 71.7 fL 79.4-94.8 MEAN CORPUSCULAR HEMOGLOBIN (BEAKER) (test gapd=702) 22.5 pg 25.6-32.2 MEAN CORPUSCULAR HEMOGLOBIN CONC (BEAKER) (test kgez=719) 31.3 GM/DL 32.2-35.5 RED CELL DISTRIBUTION WIDTH (BEAKER) (test ogqj=121) 16.6 % 11.7-14.4 PLATELET COUNT (BEAKER) (test idtx=749) 233 K/CU MM 150-450 MEAN PLATELET VOLUME (BEAKER) (test cmxe=610) 10.8 fL 9.4-12.3 NUCLEATED RED BLOOD CELLS (BEAKER) (test pyfo=752) 1 /100 WBC 0-0 NEUTROPHILS RELATIVE PERCENT (BEAKER) (test iulj=256) 64 % LYMPHOCYTES RELATIVE PERCENT (BEAKER) (test sqsb=760) 20 % MONOCYTES RELATIVE PERCENT (BEAKER) (test hkug=118) 12 % EOSINOPHILS RELATIVE PERCENT (BEAKER) (test [address]=191) 3 % BASOPHILS RELATIVE PERCENT (BEAKER) (test alti=024) 1 % NEUTROPHILS ABSOLUTE COUNT (BEAKER) (test uccv=031) 5.83 K/ L 1.56-6.13 LYMPHOCYTES ABSOLUTE COUNT (BEAKER) (test qakm=489) 1.84 K/ L 1.18-3.74 MONOCYTES ABSOLUTE COUNT (BEAKER) (test rmjt=749) 1.09 K/ L 0.24-0.36 EOSINOPHILS ABSOLUTE COUNT (BEAKER) (test kfhw=523) 0.23 K/ L 0.04-0.36 BASOPHILS ABSOLUTE COUNT (BEAKER) (test osye=493) 0.09 K/ L 0.01-0.08 IMMATURE GRANULOCYTES-RELATIVE PERCENT (BEAKER) (test pgqf=0157) 0 % 0-1 BASIC METABOLIC [id number] 07:31:00* Test Item Value Reference Range Comments SODIUM (BEAKER) (test ufnh=701) 141 meq/L 136-145 POTASSIUM (BEAKER) (test ilwj=723) 4.1 meq/L 3.5-5.1 CHLORIDE (BEAKER) (test wbox=747) 109 meq/L 98-107 CO2 (BEAKER) (test nxuo=464) 25 meq/L 22-29 BLOOD UREA NITROGEN (BEAKER) (test pfvw=483) 6 mg/dL 7-21 CREATININE (BEAKER) (test lelp=457) 0.51 mg/dL 0.57-1.25 GLUCOSE RANDOM (BEAKER) (test jges=184) 93 mg/dL 70-105 CALCIUM (BEAKER) (test cqxh=439) 8.5 mg/dL 8.4-10.2 EGFR (BEAKER) (test sfez=9699) 181 mL/min/1.73 sq m ESTIMATED GFR IS NOT ACCURATE CREATININE CLEARANCE IN PREDICTING GLOMERULAR FILTRATION RATE. ESTIMATED GFR IS NOT APPLICABLE FOR DIALYSIS PATIENTS. CBC W/PLT COUNT & AUTO [id number] 05:47:00* Test Item Value Reference Range Comments WHITE BLOOD CELL COUNT (BEAKER) (test vllo=265) 9.6 K/ L 3.5-10.5 RED BLOOD CELL COUNT (BEAKER) (test lvgb=561) 3.00 M/ L 3.93-5.22 HEMOGLOBIN (BEAKER) (test hbfy=980) 6.8 GM/DL 11.2-15.7 HEMATOCRIT (BEAKER) (test wcpj=141) 21.1 % 34.1-44.9 MEAN CORPUSCULAR VOLUME (BEAKER) (test lbrm=072) 70.3 fL 79.4-94.8 MEAN CORPUSCULAR HEMOGLOBIN (BEAKER) (test nbik=496) 22.7 pg 25.6-32.2 MEAN CORPUSCULAR HEMOGLOBIN CONC (BEAKER) (test eqim=939) 32.2 GM/DL 32.2-35.5 RED CELL DISTRIBUTION WIDTH (BEAKER) (test amof=214) 16.3 % 11.7-14.4 PLATELET COUNT (BEAKER) (test etwo=230) 223 K/CU MM 150-450 MEAN PLATELET VOLUME (BEAKER) (test iafx=918) 10.1 fL 9.4-12.3 NUCLEATED RED BLOOD CELLS (BEAKER) (test eqfy=954) 1 /100 WBC 0-0 NEUTROPHILS RELATIVE PERCENT (BEAKER) (test vtza=198) 60 % LYMPHOCYTES RELATIVE PERCENT (BEAKER) (test ybpu=061) 25 % MONOCYTES RELATIVE PERCENT (BEAKER) (test gagz=849) 11 % EOSINOPHILS RELATIVE PERCENT (BEAKER) (test zvfc=546) 2 % BASOPHILS RELATIVE PERCENT (BEAKER) (test qaxj=486) 1 % NEUTROPHILS ABSOLUTE COUNT (BEAKER) (test sywh=947) 5.77 K/ L 1.56-6.13 LYMPHOCYTES ABSOLUTE COUNT (BEAKER) (test xaay=375) 2.39 K/ L 1.18-3.74 MONOCYTES ABSOLUTE COUNT (BEAKER) (test ddod=000) 1.10 K/ L 0.24-0.36 EOSINOPHILS ABSOLUTE COUNT (BEAKER) (test svek=094) 0.23 K/ L 0.04-0.36 BASOPHILS ABSOLUTE COUNT (BEAKER) (test twia=650) 0.09 K/ L 0.01-0.08 IMMATURE GRANULOCYTES-RELATIVE PERCENT (BEAKER) (test phnq=8383) 0 % 0-1 URINALYSIS W/ [id number] 23:53:00* Test Item Value Reference Range Comments COLOR (BEAKER) (test ilfa=150) Yellow CLARITY (BEAKER) (test nhpw=102) Clear SPECIFIC GRAVITY UA (BEAKER) (test ikzx=452) 1.013 1.001-1.035 PH UA (BEAKER) (test nfkn=518) 6.5 5.0-8.0 PROTEIN UA (BEAKER) (test mcnl=277) Negative Negative GLUCOSE UA (BEAKER) (test gnuu=519) Negative Negative KETONES UA (BEAKER) (test ogsa=207) Negative Negative BILIRUBIN UA (BEAKER) (test xfnp=360) Negative Negative BLOOD UA (BEAKER) (test cufs=119) Negative Negative NITRITE UA (BEAKER) (test hnav=595) Negative Negative LEUKOCYTE ESTERASE UA (BEAKER) (test mqzc=140) Negative Negative UROBILINOGEN UA (BEAKER) (test vjoc=835) 0.2 mg/dL 0.2-1.0 RBC UA (BEAKER) (test zlou=755) 0 /HPF WBC UA (BEAKER) (test mxop=245) < /HPF MUCUS (BEAKER) (test fzik=9642) Occasional SQUAMOUS EPITHELIAL (BEAKER) (test btyn=113) 2 /HPF SOURCE(BEAKER) (test atuc=9501) SCREEN, [id number] 23:52:00* Test Item Value Reference Range Comments TEST URINE (BEAKER) (test imdx=896) Negative TROPONIN [id number] 20:30:00* Test Item Value Reference Range Comments TROPONIN I (BEAKER) (test rnui=987) < ng/mL 0.00-0.03 Troponin I (TnI) levels must be interpreted in the context of the presenting sym ptoms and the clinical findings. Elevated TnI levels indicate myocardial damage, but are not specific for ischemic heart disease. Elevated TnI levels are seen i n patients with other cardiac conditions (including myocarditis and congestive h eart failure), and slight TnI elevations occur in patients with other conditions , including sepsis, renal failure, acidosis, acute neurological disease, and per sistent tachyarrhythmia.Add on to [facility] METABOLIC [id number] 20:23:00* Test Item Value Reference Range Comments SODIUM (BEAKER) (test cskd=695) 138 meq/L 136-145 POTASSIUM (BEAKER) (test llgb=842) 4.0 meq/L 3.5-5.1 CHLORIDE (BEAKER) (test jxom=513) 104 meq/L 98-107 CO2 (BEAKER) (test gewp=916) 26 meq/L 22-29 BLOOD UREA NITROGEN (BEAKER) (test lhqf=558) 10 mg/dL 7-21 CREATININE (BEAKER) (test fpuj=633) 0.59 mg/dL 0.57-1.25 GLUCOSE RANDOM (BEAKER) (test gbgy=675) 98 mg/dL 70-105 CALCIUM (BEAKER) (test mtvk=495) 9.4 mg/dL 8.4-10.2 EGFR (BEAKER) (test ojyb=4830) 153 mL/min/1.73 sq m ESTIMATED GFR IS NOT ACCURATE CREATININE CLEARANCE IN PREDICTING GLOMERULAR FILTRATION RATE. ESTIMATED GFR IS NOT APPLICABLE FOR DIALYSIS PATIENTS. Add on to BMPRAD, CHEST, 1 VIEW, NON [id number] 20:19:00Reason for exam:-> SICKLE CELL PAIN CRISISfor the lasts 3-4 daysReason for exam:->chest painShould this be performed at the bedside?->YesFINAL REPORT INDICATION: SICKLE CELL PAIN CRISISchest pain COMPARISON: 06/16/2019 TECHNIQUE: Single frontal view of the chest. FINDINGS: Lungs and pleura: Clear lungs. No effusion.Heart and mediastinum: Unremarkable cardiomediastinal silhouette. Osseous structures: No acute abnormality. Sclerotic bones with central height loss of the vertebral bodies compatible with history of sickle cell disease.Other: None. IMPRESSION: No acute intrathoracic abnormality. Signed: Ximena Jones MDReport Verified Date/Time: 09/27/2019 20:19:09 W/PLT COUNT & AUTO [id number] 19:54:00* Test Item Value Reference Range Comments WHITE BLOOD CELL COUNT (BEAKER) (test isxx=429) 12.0 K/ L 3.5-10.5 RED BLOOD CELL COUNT (BEAKER) (test eqvk=305) 3.46 M/ L 3.93-5.22 HEMOGLOBIN (BEAKER) (test gpqn=091) 7.8 GM/DL 11.2-15.7 HEMATOCRIT (BEAKER) (test hdox=859) 24.3 % 34.1-44.9 MEAN CORPUSCULAR VOLUME (BEAKER) (test aznp=371) 70.2 fL 79.4-94.8 MEAN CORPUSCULAR HEMOGLOBIN (BEAKER) (test osfk=702) 22.5 pg 25.6-32.2 MEAN CORPUSCULAR HEMOGLOBIN CONC (BEAKER) (test oyyv=061) 32.1 GM/DL 32.2-35.5 RED CELL DISTRIBUTION WIDTH (BEAKER) (test inke=804) 16.7 % 11.7-14.4 PLATELET COUNT (BEAKER) (test sweo=731) 264 K/CU MM 150-450 MEAN PLATELET VOLUME (BEAKER) (test yvnk=776) 10.1 fL 9.4-12.3 NUCLEATED RED BLOOD CELLS (BEAKER) (test xwcc=220) 2 /100 WBC 0-0 NEUTROPHILS RELATIVE PERCENT (BEAKER) (test hmkb=223) 70 % LYMPHOCYTES RELATIVE PERCENT (BEAKER) (test ogqi=446) 17 % MONOCYTES RELATIVE PERCENT (BEAKER) (test ltsw=120) 10 % EOSINOPHILS RELATIVE PERCENT (BEAKER) (test iaja=644) 2 % BASOPHILS RELATIVE PERCENT (BEAKER) (test sevw=155) 1 % NEUTROPHILS ABSOLUTE COUNT (BEAKER) (test stop=175) 8.44 K/ L 1.56-6.13 LYMPHOCYTES ABSOLUTE COUNT (BEAKER) (test audc=033) 2.02 K/ L 1.18-3.74 MONOCYTES ABSOLUTE COUNT (BEAKER) (test jqfv=876) 1.17 K/ L 0.24-0.36 EOSINOPHILS ABSOLUTE COUNT (BEAKER) (test bqfw=835) 0.19 K/ L 0.04-0.36 BASOPHILS ABSOLUTE COUNT (BEAKER) (test idco=328) 0.12 K/ L 0.01-0.08 IMMATURE GRANULOCYTES-RELATIVE PERCENT (BEAKER) (test ynzg=7092) 0 % 0-1 RETICULOCYTE [id number] 19:54:00* Test Item Value Reference Range Comments RETICULOCYTE COUNT PCT (BEAKER) (test yzrv=899) 9.7 % 0.5-1.7 CBC (HEMOGRAM ONLY)2019-08-03 07:07:00* Test Item Value Reference Range Comments WHITE BLOOD CELL COUNT (BEAKER) (test yxvf=294) 8.8 K/ L 3.5-10.5 RED BLOOD CELL COUNT (BEAKER) (test fnnq=165) 3.05 M/ L 3.93-5.22 HEMOGLOBIN (BEAKER) (test saxj=394) 7.0 GM/DL 11.2-15.7 HEMATOCRIT (BEAKER) (test zhws=551) 22.2 % 34.1-44.9 MEAN CORPUSCULAR VOLUME (BEAKER) (test shkq=141) 72.8 fL 79.4-94.8 MEAN CORPUSCULAR HEMOGLOBIN (BEAKER) (test isuv=307) 23.0 pg 25.6-32.2 MEAN CORPUSCULAR HEMOGLOBIN CONC (BEAKER) (test snum=252) 31.5 GM/DL 32.2-35.5 RED CELL DISTRIBUTION WIDTH (BEAKER) (test zhnl=258) 21.8 % 11.7-14.4 PLATELET COUNT (BEAKER) (test szat=003) 261 K/CU MM 150-450 MEAN PLATELET VOLUME (BEAKER) (test czqo=167) 9.3 fL 9.4-12.3 NUCLEATED RED BLOOD CELLS (BEAKER) (test ttoh=106) 1 /100 WBC 0-0 BLOOD [id number] 20:01:00* Test Item Value Reference Range Comments CULTURE (BEAKER) (test xlvm=9549) No growth in 5 days BLOOD [id number] 20:01:00* Test Item Value Reference Range Comments CULTURE (BEAKER) (test qtjk=0405) No growth in 5 days BASIC METABOLIC [id number] 18:10:00* Test Item Value Reference Range Comments SODIUM (BEAKER) (test cxlk=518) 142 meq/L 136-145 POTASSIUM (BEAKER) (test pjln=502) 3.6 meq/L 3.5-5.1 CHLORIDE (BEAKER) (test avug=584) 110 meq/L 98-107 CO2 (BEAKER) (test ssir=403) 25 meq/L 22-29 BLOOD UREA NITROGEN (BEAKER) (test ncni=575) 7 mg/dL 7-21 CREATININE (BEAKER) (test bvgy=194) 0.52 mg/dL 0.57-1.25 GLUCOSE RANDOM (BEAKER) (test dnrz=334) 102 mg/dL 70-105 CALCIUM (BEAKER) (test aobc=963) 8.9 mg/dL 8.4-10.2 EGFR (BEAKER) (test ovuw=0710) 179 mL/min/1.73 sq m ESTIMATED GFR IS NOT ACCURATE CREATININE CLEARANCE IN PREDICTING GLOMERULAR FILTRATION RATE. ESTIMATED GFR IS NOT APPLICABLE FOR DIALYSIS PATIENTS. STOOL PATH [id number] 14:26:00* Test Item Value Reference Range Comments PATHOGEN EXAM CHARGED (BEAKER) (test smvj=2029) Done STOOL CULTURE + SHIGA [id number] 14:26:00* Test Item Value Reference Range Comments CULTURE (BEAKER) (test kzxq=6317) No Salmonella or Shigella isolated CBC (HEMOGRAM ONLY)2019-08-02 06:49:00* Test Item Value Reference Range Comments WHITE BLOOD CELL COUNT (BEAKER) (test evus=587) 11.3 K/ L 3.5-10.5 RED BLOOD CELL COUNT (BEAKER) (test brrb=542) 3.08 M/ L 3.93-5.22 HEMOGLOBIN (BEAKER) (test fszo=258) 7.1 GM/DL 11.2-15.7 HEMATOCRIT (BEAKER) (test afuo=684) 22.2 % 34.1-44.9 MEAN CORPUSCULAR VOLUME (BEAKER) (test ugqy=170) 72.1 fL 79.4-94.8 MEAN CORPUSCULAR HEMOGLOBIN (BEAKER) (test jybb=328) 23.1 pg 25.6-32.2 MEAN CORPUSCULAR HEMOGLOBIN CONC (BEAKER) (test qotz=682) 32.0 GM/DL 32.2-35.5 RED CELL DISTRIBUTION WIDTH (BEAKER) (test vecg=400) 21.7 % 11.7-14.4 PLATELET COUNT (BEAKER) (test aahd=449) 303 K/CU MM 150-450 MEAN PLATELET VOLUME (BEAKER) (test gwgp=170) 9.4 fL 9.4-12.3 NUCLEATED RED BLOOD CELLS (BEAKER) (test lnuk=867) 1 /100 WBC 0-0 SHIGA TOXIN [id number] 15:18:00* Test Item Value Reference Range Comments SHIGA TOXIN 1 (BEAKER) (test erwk=7019) Not detected Not detected SHIGA TOXIN 2 (BEAKER) (test xgsx=0114) Not detected Not detected CBC (HEMOGRAM ONLY)2019-08-01 07:22:00* Test Item Value Reference Range Comments WHITE BLOOD CELL COUNT (BEAKER) (test apux=893) 6.9 K/ L 3.5-10.5 RED BLOOD CELL COUNT (BEAKER) (test usfk=888) 3.14 M/ L 3.93-5.22 HEMOGLOBIN (BEAKER) (test ooxb=354) 7.1 GM/DL 11.2-15.7 HEMATOCRIT (BEAKER) (test roep=796) 22.6 % 34.1-44.9 MEAN CORPUSCULAR VOLUME (BEAKER) (test kncw=277) 72.0 fL 79.4-94.8 MEAN CORPUSCULAR HEMOGLOBIN (BEAKER) (test vtpf=447) 22.6 pg 25.6-32.2 MEAN CORPUSCULAR HEMOGLOBIN CONC (BEAKER) (test zwtc=437) 31.4 GM/DL 32.2-35.5 RED CELL DISTRIBUTION WIDTH (BEAKER) (test kqmb=796) 21.4 % 11.7-14.4 PLATELET COUNT (BEAKER) (test uifp=245) 255 K/CU MM 150-450 MEAN PLATELET VOLUME (BEAKER) (test lezz=142) 10.4 fL 9.4-12.3 NUCLEATED RED BLOOD CELLS (BEAKER) (test nwvs=591) 1 /100 WBC 0-0 CBC (HEMOGRAM ONLY)2019-07-31 09:36:00* Test Item Value Reference Range Comments WHITE BLOOD CELL COUNT (BEAKER) (test yypu=728) 8.3 K/ L 3.5-10.5 RED BLOOD CELL COUNT (BEAKER) (test xysb=522) 3.58 M/ L 3.93-5.22 HEMOGLOBIN (BEAKER) (test zayq=639) 8.4 GM/DL 11.2-15.7 HEMATOCRIT (BEAKER) (test hmxr=994) 25.8 % 34.1-44.9 MEAN CORPUSCULAR VOLUME (BEAKER) (test uayx=787) 72.1 fL 79.4-94.8 MEAN CORPUSCULAR HEMOGLOBIN (BEAKER) (test jzpk=961) 23.5 pg 25.6-32.2 MEAN CORPUSCULAR HEMOGLOBIN CONC (BEAKER) (test smyo=897) 32.6 GM/DL 32.2-35.5 RED CELL DISTRIBUTION WIDTH (BEAKER) (test ouuy=459) 21.1 % 11.7-14.4 PLATELET COUNT (BEAKER) (test llue=023) 306 K/CU MM 150-450 MEAN PLATELET VOLUME (BEAKER) (test fnhy=722) 9.9 fL 9.4-12.3 NUCLEATED RED BLOOD CELLS (BEAKER) (test owqf=580) 0 /100 WBC 0-0 [id number] 07:05:00* Test Item Value Reference Range Comments MAGNESIUM (BEAKER) (test wxpd=885) 2.0 mg/dL 1.6-2.6 BASIC METABOLIC [id number] 07:05:00* Test Item Value Reference Range Comments SODIUM (BEAKER) (test urvk=031) 141 meq/L 136-145 POTASSIUM (BEAKER) (test nhff=184) 3.6 meq/L 3.5-5.1 CHLORIDE (BEAKER) (test djmh=698) 108 meq/L 98-107 CO2 (BEAKER) (test sdzn=988) 27 meq/L 22-29 BLOOD UREA NITROGEN (BEAKER) (test hvyi=392) 5 mg/dL 7-21 CREATININE (BEAKER) (test pemd=359) 0.51 mg/dL 0.57-1.25 GLUCOSE RANDOM (BEAKER) (test upru=479) 82 mg/dL 70-105 CALCIUM (BEAKER) (test lvtq=736) 8.9 mg/dL 8.4-10.2 EGFR (BEAKER) (test qtld=1082) 183 mL/min/1.73 sq m ESTIMATED GFR IS NOT ACCURATE CREATININE CLEARANCE IN PREDICTING GLOMERULAR FILTRATION RATE. ESTIMATED GFR IS NOT APPLICABLE FOR DIALYSIS PATIENTS. [id number] 18:17:00* Test Item Value Reference Range Comments FERRITIN (BEAKER) (test hwif=660) 1810 ng/mL 5-275 IRON, TIBC, % SAT. (WITHOUT FERRITIN)2019-07-30 18:12:00* Test Item Value Reference Range Comments IRON (BEAKER) (test xwwl=329) 48.0 ug/dL 40.0-160.0 TOTAL IRON BINDING CAPACITY (BEAKER) (test xewq=881) 151 ug/dL 250-450 IRON % SATURATION (2) (BEAKER) (test sqwp=6708) 32 % 20-55 [id number] 06:38:00* Test Item Value Reference Range Comments MAGNESIUM (BEAKER) (test pmfk=868) 1.9 mg/dL 1.6-2.6 BASIC METABOLIC [id number] 06:38:00* Test Item Value Reference Range Comments SODIUM (BEAKER) (test yzlg=497) 138 meq/L 136-145 POTASSIUM (BEAKER) (test xrdx=601) 3.7 meq/L 3.5-5.1 CHLORIDE (BEAKER) (test bjsh=453) 111 meq/L 98-107 CO2 (BEAKER) (test iytl=497) 22 meq/L 22-29 BLOOD UREA NITROGEN (BEAKER) (test otyx=232) 4 mg/dL 7-21 CREATININE (BEAKER) (test uxid=608) 0.48 mg/dL 0.57-1.25 GLUCOSE RANDOM (BEAKER) (test ixoh=128) 86 mg/dL 70-105 CALCIUM (BEAKER) (test dphs=182) 8.7 mg/dL 8.4-10.2 EGFR (BEAKER) (test khxt=9740) 196 mL/min/1.73 sq m ESTIMATED GFR IS NOT ACCURATE CREATININE CLEARANCE IN PREDICTING GLOMERULAR FILTRATION RATE. ESTIMATED GFR IS NOT APPLICABLE FOR DIALYSIS PATIENTS. CBC W/PLT COUNT & AUTO [id number] 06:36:00* Test Item Value Reference Range Comments WHITE BLOOD CELL COUNT (BEAKER) (test kvqi=555) 7.9 K/ L 3.5-10.5 RED BLOOD CELL COUNT (BEAKER) (test tftt=057) 2.95 M/ L 3.93-5.22 HEMOGLOBIN (BEAKER) (test cmel=154) 6.7 GM/DL 11.2-15.7 HEMATOCRIT (BEAKER) (test ltwt=464) 21.4 % 34.1-44.9 MEAN CORPUSCULAR VOLUME (BEAKER) (test sblk=836) 72.5 fL 79.4-94.8 MEAN CORPUSCULAR HEMOGLOBIN (BEAKER) (test pwea=091) 22.7 pg 25.6-32.2 MEAN CORPUSCULAR HEMOGLOBIN CONC (BEAKER) (test rolj=211) 31.3 GM/DL 32.2-35.5 RED CELL DISTRIBUTION WIDTH (BEAKER) (test hqmv=222) 20.4 % 11.7-14.4 PLATELET COUNT (BEAKER) (test lbjc=486) 230 K/CU MM 150-450 MEAN PLATELET VOLUME (BEAKER) (test gkha=020) 9.8 fL 9.4-12.3 NUCLEATED RED BLOOD CELLS (BEAKER) (test hddc=031) 0 /100 WBC 0-0 NEUTROPHILS RELATIVE PERCENT (BEAKER) (test dlai=172) 52 % LYMPHOCYTES RELATIVE PERCENT (BEAKER) (test nprx=193) 32 % MONOCYTES RELATIVE PERCENT (BEAKER) (test svqc=790) 12 % EOSINOPHILS RELATIVE PERCENT (BEAKER) (test ymgf=625) 2 % BASOPHILS RELATIVE PERCENT (BEAKER) (test ursu=436) 1 % NEUTROPHILS ABSOLUTE COUNT (BEAKER) (test uspu=450) 4.12 K/ L 1.56-6.13 LYMPHOCYTES ABSOLUTE COUNT (BEAKER) (test zewm=798) 2.55 K/ L 1.18-3.74 MONOCYTES ABSOLUTE COUNT (BEAKER) (test dnmy=015) 0.95 K/ L 0.24-0.36 EOSINOPHILS ABSOLUTE COUNT (BEAKER) (test znns=429) 0.13 K/ L 0.04-0.36 BASOPHILS ABSOLUTE COUNT (BEAKER) (test qopx=819) 0.10 K/ L 0.01-0.08 IMMATURE GRANULOCYTES-RELATIVE PERCENT (BEAKER) (test hsll=9477) 0 % 0-1 RESPIRATORY PANEL [id number] 15:55:00* Test Item Value Reference Range Comments HUMAN METAPNEUMOVIRUS (BEAKER) (test mczn=0874) Not detected Not detected, Equivocal RHINOVIRUS (BEAKER) (test uibj=5151) Not detected Not detected, Equivocal INFLUENZA A (BEAKER) (test kefw=9376) Not detected Not detected, Equivocal INFLUENZA A (NO SUBTYPE) (test mgtr=9615) INFLUENZA A SUBTYPE H1 (BEAKER) (test iuik=2189) INFLUENZA A SUBTYPE H3 (BEAKER) (test qmcy=1436) INFLUENZA A SUBTYPE H1-2009 (BEAKER) (test hnqf=1737) INFLUENZA B (BEAKER) (test tyjl=0559) Not detected Not detected, Equivocal RESPIRATORY SYNCYTIAL VIRUS (BEAKER) (test nvel=3802) Not detected Not detected, Equivocal PARAINFLUENZA VIRUS 1 (BEAKER) (test dchh=1850) Not detected Not detected, Equivocal PARAINFLUENZA VIRUS 2 (BEAKER) (test nkfy=4817) Not detected Not detected, Equivocal PARAINFLUENZA VIRUS 3 (BEAKER) (test bjzc=0766) Not detected Not detected, Equivocal PARAINFLUENZA VIRUS 4 (BEAKER) (test kyfj=5170) Not detected Not detected, Equivocal ADENOVIRUS (BEAKER) (test thya=5654) Not detected Not detected, Equivocal CORONAVIRUS 229E (BEAKER) (test fkue=1377) Not detected Not detected, Equivocal CORONAVIRUS HKU1 (BEAKER) (test wdfb=0845) Not detected Not detected, Equivocal CORONAVIRUS NL63 (BEAKER) (test ssuo=7584) Not detected Not detected, Equivocal CORONAVIRUS OC43 (BEAKER) (test fgdg=8063) Not detected Not detected, Equivocal BORDETELLA PERTUSSIS (BEAKER) (test pbhq=7286) Not detected Not detected, Equivocal CHLAMYDOPHILA PNEUMONIAE (BEAKER) (test ffus=6091) Not detected Not detected, Equivocal MYCOPLASMA PNEUMONIAE (BEAKER) (test ilrj=4213) Not detected Not detected, Equivocal Other viruses and bacteria not targeted by this PCR panel cannot be excluded; th erefore clinical correlation and follow up of serology, culture results, and oth er molecular studies is required. The results are not intended to be used as the sole means for clinical diagnosis or patient management decisions. This sample was tested at the [facility] using the ScyronA rray Respiratory Panel. It is FDA cleared and has been verified and approved by the [facility] for clinical use on nasopharyngeal sw ab specimens.The performance of the FilmArray RP has not been established in ind ividuals who received influenza vaccine. Recent administration of a nasal influ anthony vaccine may cause false positive results for Influenza A and/orInfluenza B. RAD, CLAVICLE, COMPLETE, [id number] 14:00:00Reason for exam:->bilateral clavicle painFINAL REPORT RAD, CLAVICLE, COMPLETE, RIGHT, RAD, CLAVICLE, COMPLETE, LEFT INDICATION: bilateral clavicle pain COMPARISON: None TECHNIQUE: Frontal views of the left and right clavicles. FINDINGS:Clavicular bodies are intact bilaterally. There are normal acromioclavicular intervals bilaterally. IMPRESSION: No fracture or malalignment in either clavicle. Signed: JR Ortiz Robert MDReport Verified Date/Time: 07/29/2019 14:00:30 Reading Location: [facility] Radiology Reading Room , CLAVICLE, COMPLETE, [id number] 14:00:00Reason for exam:-> bilateral clavicle painFINAL REPORT RAD, CLAVICLE, COMPLETE, RIGHT, RAD, CLAVICLE, COMPLETE, LEFT INDICATION: bilateral clavicle pain COMPARISON: None TECHNIQUE: Frontal views of the left and right clavicles. FINDINGS:Clavicular bodies are intact bilaterally. There are normal acromioclavicular intervals bilaterally. IMPRESSION: No fracture or malalignment in either clavicle. Signed: JR Ortiz Robert MDReport Verified Date/Time: 07/29/2019 14:00:30 Reading Location: [facility] Radiology Reading Room ALYSIS W/ REFLEX URINE [id number] 07:55:00* Test Item Value Reference Range Comments COLOR (BEAKER) (test jhbm=378) Yellow CLARITY (BEAKER) (test azxz=880) Hazy SPECIFIC GRAVITY UA (BEAKER) (test kiih=813) 1.010 1.001-1.035 PH UA (BEAKER) (test gjbo=787) 6.0 5.0-8.0 PROTEIN UA (BEAKER) (test iwvi=053) Negative Negative GLUCOSE UA (BEAKER) (test nhoh=289) Negative Negative KETONES UA (BEAKER) (test xner=816) Negative Negative BILIRUBIN UA (BEAKER) (test pkwt=856) Negative Negative BLOOD UA (BEAKER) (test fyqe=217) Negative Negative NITRITE UA (BEAKER) (test loyr=897) Negative Negative LEUKOCYTE ESTERASE UA (BEAKER) (test vpuu=373) Negative Negative UROBILINOGEN UA (BEAKER) (test gmgt=777) 0.2 mg/dL 0.2-1.0 RBC UA (BEAKER) (test ptdn=761) 1 /HPF WBC UA (BEAKER) (test uqsa=062) 1 /HPF BACTERIA (BEAKER) (test apkl=675) Occasional MUCUS (BEAKER) (test vojm=6377) Many SQUAMOUS EPITHELIAL (BEAKER) (test pxpk=539) 2 /HPF SOURCE(BEAKER) (test xqhl=2725) [id number] 02:58:00* Test Item Value Reference Range Comments PROCALCITONIN (BEAKER) (test thha=3195) < ng/mL <0.05 SEPSIS RISK (ng/mL)Low: 0.05-0.50Intermediate: 0.51-2.00High: > =2.01TROPONIN [id number] 02:33:00* Test Item Value Reference Range Comments TROPONIN I (BEAKER) (test ekwg=895) < ng/mL 0.00-0.03 Troponin I (TnI) levels must be interpreted in the context of the presenting sym ptoms and the clinical findings. Elevated TnI levels indicate myocardial damage, but are not specific for ischemic heart disease. Elevated TnI levels are seen i n patients with other cardiac conditions (including myocarditis and congestive h eart failure), and slight TnI elevations occur in patients with other conditions , including sepsis, renal failure, acidosis, acute neurological disease, and per sistent tachyarrhythmia.[id number] 02:29:00* Test Item Value Reference Range Comments MAGNESIUM (BEAKER) (test eqyw=855) 2.0 mg/dL 1.6-2.6 BASIC METABOLIC [id number] 02:29:00* Test Item Value Reference Range Comments SODIUM (BEAKER) (test ltmm=627) 139 meq/L 136-145 POTASSIUM (BEAKER) (test nbvt=182) 3.5 meq/L 3.5-5.1 CHLORIDE (BEAKER) (test rzyg=859) 109 meq/L 98-107 CO2 (BEAKER) (test qdcm=997) 22 meq/L 22-29 BLOOD UREA NITROGEN (BEAKER) (test fnzm=676) 7 mg/dL 7-21 CREATININE (BEAKER) (test wwkb=073) 0.51 mg/dL 0.57-1.25 GLUCOSE RANDOM (BEAKER) (test thgw=261) 96 mg/dL 70-105 CALCIUM (BEAKER) (test eqjx=829) 9.2 mg/dL 8.4-10.2 EGFR (BEAKER) (test vgra=9269) 183 mL/min/1.73 sq m ESTIMATED GFR IS NOT ACCURATE CREATININE CLEARANCE IN PREDICTING GLOMERULAR FILTRATION RATE. ESTIMATED GFR IS NOT APPLICABLE FOR DIALYSIS PATIENTS. CBC (HEMOGRAM ONLY)2019-07-29 02:14:00* Test Item Value Reference Range Comments WHITE BLOOD CELL COUNT (BEAKER) (test vmlx=704) 10.4 K/ L 3.5-10.5 RED BLOOD CELL COUNT (BEAKER) (test ostl=400) 3.17 M/ L 3.93-5.22 HEMOGLOBIN (BEAKER) (test pkhg=774) 7.3 GM/DL 11.2-15.7 HEMATOCRIT (BEAKER) (test bupq=703) 22.8 % 34.1-44.9 MEAN CORPUSCULAR VOLUME (BEAKER) (test zuhw=175) 71.9 fL 79.4-94.8 MEAN CORPUSCULAR HEMOGLOBIN (BEAKER) (test whqr=520) 23.0 pg 25.6-32.2 MEAN CORPUSCULAR HEMOGLOBIN CONC (BEAKER) (test nryq=043) 32.0 GM/DL 32.2-35.5 RED CELL DISTRIBUTION WIDTH (BEAKER) (test tqkn=557) 20.3 % 11.7-14.4 PLATELET COUNT (BEAKER) (test xhym=175) 290 K/CU MM 150-450 MEAN PLATELET VOLUME (BEAKER) (test rjha=624) 10.4 fL 9.4-12.3 NUCLEATED RED BLOOD CELLS (BEAKER) (test sztw=989) 0 /100 WBC 0-0 RAPID INFLUENZA A&B [id number] 22:18:00* Test Item Value Reference Range Comments RAPID INFLUENZA A AG (BEAKER) (test mvxu=7851) Negative Negative, Inconclusive RAPID INFLUENZA B AG (BEAKER) (test yhpu=2558) Negative Negative, Inconclusive CT, CHEST, WITHOUT [id number] 18:18:00Reason for exam:->CHEST PAINIs the patient ?->NoWhat is the patient's sedation requirement?->No Sedation FINAL REPORT CT of the chest, without contrast, 9. History: Chest pain. Comparison: 01/31/2019. Technique: Multidetector CT scanning of the chest was performed from the level of the thoracic inlet to the upper abdomen without IV or oral contrast. This exam was performed according to our departmental dose-optimization program which includes automated exposure co ntrol, adjustment of the mA and/or kV according to patient size and/or use of it erative reconstruction technique. Discussion: Evaluation of the heart and mediastinal structures is limited secondary to lack of intravenous contrast. The heart, aorta, and pul monary vessels are normal in size. The thyroid is unremarkable. There is no axil amber or mediastinal adenopathy. Residual thymic tissue is noted. The central air ways are patent. Linear opacities are present at the lung bases, decreased. There is no evidence of consolidation or pleural effusion. Sully log deformit y of the thoracic vertebral bodies is again noted. There are no acute osseous ab normalities. Limited evaluation of the upper abdomen shows normal adrenal gland s. IMPRESSION:Decreased bibasilar atelectasis. Findings of sickle cell disease. Otherwise unremarkable noncontrast exam. Signed: Tito Padgett [facility] Date/Time: 07/28/2019 18:18:58 Reading Location: [facility] [address] [facility] P M HCG, SERUM, [id number] 17:30:00* Test Item Value Reference Range Comments TEST SERUM (BEAKER) (test yqpt=143) Negative RAPID STREP A [id number] 17:05:00* Test Item Value Reference Range Comments STREP A ANTIGEN (BEAKER) (test pzkc=065) Negative Negative TROPONIN [id number] 16:37:00* Test Item Value Reference Range Comments TROPONIN I (BEAKER) (test edax=102) < ng/mL 0.00-0.03 Troponin I (TnI) levels must be interpreted in the context of the presenting sym ptoms and the clinical findings. Elevated TnI levels indicate myocardial damage, but are not specific for ischemic heart disease. Elevated TnI levels are seen i n patients with other cardiac conditions (including myocarditis and congestive h eart failure), and slight TnI elevations occur in patients with other conditions , including sepsis, renal failure, acidosis, acute neurological disease, and per sistent tachyarrhythmia.[id number] 16:30:00* Test Item Value Reference Range Comments LIPASE (BEAKER) (test umat=970) 13 U/L 8-78 COMPREHENSIVE METABOLIC [id number] 16:30:00* Test Item Value Reference Range Comments TOTAL PROTEIN (BEAKER) (test euky=107) 7.2 gm/dL 6.0-8.3 ALBUMIN (BEAKER) (test naoc=8209) 4.4 g/dL 3.5-5.0 ALKALINE PHOSPHATASE (BEAKER) (test rxiu=583) 90 U/L 40-150 BILIRUBIN TOTAL (BEAKER) (test ofxv=153) 0.7 mg/dL 0.2-1.2 SODIUM (BEAKER) (test zxsm=436) 138 meq/L 136-145 POTASSIUM (BEAKER) (test sxnh=458) 3.4 meq/L 3.5-5.1 CHLORIDE (BEAKER) (test icmj=596) 107 meq/L 98-107 CO2 (BEAKER) (test pboy=780) 25 meq/L 22-29 BLOOD UREA NITROGEN (BEAKER) (test btwc=626) 9 mg/dL 7-21 CREATININE (BEAKER) (test esip=751) 0.53 mg/dL 0.57-1.25 GLUCOSE RANDOM (BEAKER) (test rjrf=653) 113 mg/dL 70-105 CALCIUM (BEAKER) (test gcyc=140) 9.6 mg/dL 8.4-10.2 AST (SGOT) (BEAKER) (test lywg=146) 17 U/L 5-34 ALT (SGPT) (BEAKER) (test zkfq=432) 9 U/L 6-55 EGFR (BEAKER) (test yttj=6415) 175 mL/min/1.73 sq m ESTIMATED GFR IS NOT ACCURATE CREATININE CLEARANCE IN PREDICTING GLOMERULAR FILTRATION RATE. ESTIMATED GFR IS NOT APPLICABLE FOR DIALYSIS PATIENTS. LACTIC ACID, [id number] 16:27:00* Test Item Value Reference Range Comments LACTATE BLOOD VENOUS (2) (BEAKER) (test bcor=0503) 0.9 mmol/L 0.5-2.2 CBC W/PLT COUNT & AUTO [id number] 16:19:00* Test Item Value Reference Range Comments WHITE BLOOD CELL COUNT (BEAKER) (test aipj=114) 12.1 K/ L 3.5-10.5 RED BLOOD CELL COUNT (BEAKER) (test ddrr=228) 3.59 M/ L 3.93-5.22 HEMOGLOBIN (BEAKER) (test nyju=068) 8.2 GM/DL 11.2-15.7 HEMATOCRIT (BEAKER) (test bdjs=289) 25.5 % 34.1-44.9 MEAN CORPUSCULAR VOLUME (BEAKER) (test jvzp=174) 71.0 fL 79.4-94.8 MEAN CORPUSCULAR HEMOGLOBIN (BEAKER) (test ftnz=666) 22.8 pg 25.6-32.2 MEAN CORPUSCULAR HEMOGLOBIN CONC (BEAKER) (test jmcs=378) 32.2 GM/DL 32.2-35.5 RED CELL DISTRIBUTION WIDTH (BEAKER) (test vjeh=255) 20.2 % 11.7-14.4 PLATELET COUNT (BEAKER) (test yxzk=094) 281 K/CU MM 150-450 MEAN PLATELET VOLUME (BEAKER) (test rgfr=029) 9.8 fL 9.4-12.3 NUCLEATED RED BLOOD CELLS (BEAKER) (test uxal=613) 0 /100 WBC 0-0 NEUTROPHILS RELATIVE PERCENT (BEAKER) (test gtru=358) 78 % LYMPHOCYTES RELATIVE PERCENT (BEAKER) (test tljq=167) 10 % MONOCYTES RELATIVE PERCENT (BEAKER) (test ntlj=313) 11 % EOSINOPHILS RELATIVE PERCENT (BEAKER) (test zwhc=574) 1 % BASOPHILS RELATIVE PERCENT (BEAKER) (test smab=122) 1 % NEUTROPHILS ABSOLUTE COUNT (BEAKER) (test raii=105) 9.41 K/ L 1.56-6.13 LYMPHOCYTES ABSOLUTE COUNT (BEAKER) (test sjgt=969) 1.17 K/ L 1.18-3.74 MONOCYTES ABSOLUTE COUNT (BEAKER) (test ntxv=605) 1.30 K/ L 0.24-0.36 EOSINOPHILS ABSOLUTE COUNT (BEAKER) (test wcen=650) 0.08 K/ L 0.04-0.36 BASOPHILS ABSOLUTE COUNT (BEAKER) (test ndxy=705) 0.08 K/ L 0.01-0.08 IMMATURE GRANULOCYTES-RELATIVE PERCENT (BEAKER) (test ibmr=3006) 1 % 0-1 RETICULOCYTE [id number] 16:19:00* Test Item Value Reference Range Comments RETICULOCYTE COUNT PCT (BEAKER) (test cojc=539) 3.1 % 0.5-1.7 BLOOD GAS, [id number] 16:15:00* Test Item Value Reference Range Comments PH VENOUS (BEAKER) (test vfxv=834) 7.50 7.32-7.42 PCO2 VENOUS (BEAKER) (test cpzl=274) 32 mmHg 41-51 PO2 VENOUS (BEAKER) (test jblv=459) 34 mmHg 25-40 O2 SATURATION VENOUS (BEAKER) (test oepw=133) 84.7 % 40.0-70.0 HCO3 VENOUS (BEAKER) (test itko=443) 26 mmol/L 21-29 BASE EXCESS VENOUS (BEAKER) (test nfzy=634) 1.0 mmol/L -2.0-3.0 PATIENT TEMPERATURE (BEAKER) (test fuzp=2673) 32.0 C FIO2 (BEAKER) (test ptme=8793) 21.0 % BLOOD [id number] 08:01:00* Test Item Value Reference Range Comments CULTURE (BEAKER) (test nage=4237) No growth in 5 days BLOOD [id number] 20:01:00* Test Item Value Reference Range Comments CULTURE (BEAKER) (test eygr=5629) No growth in 5 days BLOOD [id number] 08:01:00* Test Item Value Reference Range Comments CULTURE (BEAKER) (test hvpz=3202) No growth in 5 days CBC W/PLT COUNT & AUTO [id number] 06:42:00* Test Item Value Reference Range Comments WHITE BLOOD CELL COUNT (BEAKER) (test exzm=461) 6.2 K/ L 3.5-10.5 RED BLOOD CELL COUNT (BEAKER) (test jazi=708) 2.96 M/ L 3.93-5.22 HEMOGLOBIN (BEAKER) (test fyoq=006) 6.7 GM/DL 11.2-15.7 HEMATOCRIT (BEAKER) (test qblw=518) 21.7 % 34.1-44.9 MEAN CORPUSCULAR VOLUME (BEAKER) (test zmfg=545) 73.3 fL 79.4-94.8 MEAN CORPUSCULAR HEMOGLOBIN (BEAKER) (test nmwc=099) 22.6 pg 25.6-32.2 MEAN CORPUSCULAR HEMOGLOBIN CONC (BEAKER) (test fifm=134) 30.9 GM/DL 32.2-35.5 RED CELL DISTRIBUTION WIDTH (BEAKER) (test hani=163) 18.3 % 11.7-14.4 PLATELET COUNT (BEAKER) (test dkyi=362) 322 K/CU MM 150-450 MEAN PLATELET VOLUME (BEAKER) (test vbka=543) 10.4 fL 9.4-12.3 NUCLEATED RED BLOOD CELLS (BEAKER) (test zlfk=570) 2 /100 WBC 0-0 NEUTROPHILS RELATIVE PERCENT (BEAKER) (test hsbd=772) 50 % LYMPHOCYTES RELATIVE PERCENT (BEAKER) (test rynj=162) 31 % MONOCYTES RELATIVE PERCENT (BEAKER) (test uuzl=046) 13 % EOSINOPHILS RELATIVE PERCENT (BEAKER) (test fufw=363) 5 % BASOPHILS RELATIVE PERCENT (BEAKER) (test axsz=402) 1 % NEUTROPHILS ABSOLUTE COUNT (BEAKER) (test aqrt=362) 3.06 K/ L 1.56-6.13 LYMPHOCYTES ABSOLUTE COUNT (BEAKER) (test lhfz=877) 1.90 K/ L 1.18-3.74 MONOCYTES ABSOLUTE COUNT (BEAKER) (test hnnk=304) 0.78 K/ L 0.24-0.36 EOSINOPHILS ABSOLUTE COUNT (BEAKER) (test qahb=687) 0.31 K/ L 0.04-0.36 BASOPHILS ABSOLUTE COUNT (BEAKER) (test sbik=066) 0.06 K/ L 0.01-0.08 IMMATURE GRANULOCYTES-RELATIVE PERCENT (BEAKER) (test xqdx=1424) 1 % 0-1 BASIC METABOLIC [id number] 11:46:00* Test Item Value Reference Range Comments SODIUM (BEAKER) (test dxfh=597) 141 meq/L 136-145 POTASSIUM (BEAKER) (test zrib=280) 4.0 meq/L 3.5-5.1 CHLORIDE (BEAKER) (test gzyb=197) 108 meq/L 98-107 CO2 (BEAKER) (test ubpe=376) 25 meq/L 22-29 BLOOD UREA NITROGEN (BEAKER) (test hcvs=077) 3 mg/dL 7-21 CREATININE (BEAKER) (test drmq=177) 0.54 mg/dL 0.57-1.25 GLUCOSE RANDOM (BEAKER) (test womc=632) 86 mg/dL 70-105 CALCIUM (BEAKER) (test oynz=691) 9.0 mg/dL 8.4-10.2 EGFR (BEAKER) (test xrzn=5712) 171 mL/min/1.73 sq m ESTIMATED GFR IS NOT ACCURATE CREATININE CLEARANCE IN PREDICTING GLOMERULAR FILTRATION RATE. ESTIMATED GFR IS NOT APPLICABLE FOR DIALYSIS PATIENTS. CBC W/PLT COUNT & AUTO [id number] 11:29:00* Test Item Value Reference Range Comments WHITE BLOOD CELL COUNT (BEAKER) (test tyrl=001) 8.6 K/ L 3.5-10.5 RED BLOOD CELL COUNT (BEAKER) (test aeaw=402) 3.37 M/ L 3.93-5.22 HEMOGLOBIN (BEAKER) (test koar=635) 7.7 GM/DL 11.2-15.7 HEMATOCRIT (BEAKER) (test htss=761) 24.5 % 34.1-44.9 MEAN CORPUSCULAR VOLUME (BEAKER) (test xorr=641) 72.7 fL 79.4-94.8 MEAN CORPUSCULAR HEMOGLOBIN (BEAKER) (test vifc=171) 22.8 pg 25.6-32.2 MEAN CORPUSCULAR HEMOGLOBIN CONC (BEAKER) (test obar=895) 31.4 GM/DL 32.2-35.5 RED CELL DISTRIBUTION WIDTH (BEAKER) (test wuan=917) 17.5 % 11.7-14.4 PLATELET COUNT (BEAKER) (test iark=166) 381 K/CU MM 150-450 MEAN PLATELET VOLUME (BEAKER) (test asmm=928) 9.9 fL 9.4-12.3 NUCLEATED RED BLOOD CELLS (BEAKER) (test sfyy=128) 2 /100 WBC 0-0 NEUTROPHILS RELATIVE PERCENT (BEAKER) (test fzfq=997) 58 % LYMPHOCYTES RELATIVE PERCENT (BEAKER) (test xbmk=269) 23 % MONOCYTES RELATIVE PERCENT (BEAKER) (test ykex=814) 13 % EOSINOPHILS RELATIVE PERCENT (BEAKER) (test ypbo=815) 5 % BASOPHILS RELATIVE PERCENT (BEAKER) (test mkrp=299) 1 % NEUTROPHILS ABSOLUTE COUNT (BEAKER) (test used=667) 4.98 K/ L 1.56-6.13 LYMPHOCYTES ABSOLUTE COUNT (BEAKER) (test cpmh=097) 1.98 K/ L 1.18-3.74 MONOCYTES ABSOLUTE COUNT (BEAKER) (test afvi=048) 1.08 K/ L 0.24-0.36 EOSINOPHILS ABSOLUTE COUNT (BEAKER) (test fhmm=636) 0.43 K/ L 0.04-0.36 BASOPHILS ABSOLUTE COUNT (BEAKER) (test ccwa=293) 0.10 K/ L 0.01-0.08 IMMATURE GRANULOCYTES-RELATIVE PERCENT (BEAKER) (test ydre=3847) 1 % 0-1 RETICULOCYTE [id number] 11:29:00* Test Item Value Reference Range Comments RETICULOCYTE COUNT PCT (BEAKER) (test wsoo=983) 8.3 % 0.5-1.7 CMV PCR, [id number] 15:11:00* Test Item Value Reference Range Comments CMV VIRAL LOAD - NEGATIVE (BEAKER) (test pyxx=9741) Negative or below the linear range of the assay (<375 copies/mL) Cytomegalovirus (CMV) infection can cause significant disease in immunosuppresse d patients. However, it is common for CMV to manifest as a limited infection whi ch is of no clinical significance in immunosuppressed patients or in healthy ind ividuals.Viral load measurements are helpful to identify clinical CMV infection and to guide the pre-emptive management of antiviral therapy. For treatment of CMV infection due to reactivation in transplant recipients, a threshold between 4,000 and 5,000 copies/mL is suggested. For treatment of primary CMV infection, a lower threshold can be used.CMV infection may also be monitored using weekly serial measurements. Serial measurements of CMV DNA viral load can be evaluated by identifying a 10-fold change, as well as assessing the CMV DNA viral load and the clinical context for each patient.The plasma CMV DNA viral load was detecte d using quantitative polymerase chain reaction and fluorescent monitoring of a s pecific hybridized probe. Genetic variation and other factors can affect the acc uracy of nucleic acid testing. Therefore, the results should be interpreted in l ight of clinical data. A negative result may not exclude the presence of CMV dis ease.This test was developed and its performance characteristics determined by [facility] Pathology Department, Section of Molecular Patholog y. It has not been cleared or approved by the U.S. Food and Drug Administration (FDA), since FDA approval is not required for clinical use of the test. Validati on was done as required by The Clinical Laboratory Improvement Amendments of 198 8.BASIC METABOLIC [id number] 07:32:00* Test Item Value Reference Range Comments SODIUM (BEAKER) (test ldkt=390) 138 meq/L 136-145 POTASSIUM (BEAKER) (test lati=964) 4.1 meq/L 3.5-5.1 CHLORIDE (BEAKER) (test wthr=334) 108 meq/L 98-107 CO2 (BEAKER) (test njhh=714) 25 meq/L 22-29 BLOOD UREA NITROGEN (BEAKER) (test mwwq=027) 4 mg/dL 7-21 CREATININE (BEAKER) (test cgbw=992) 0.54 mg/dL 0.57-1.25 GLUCOSE RANDOM (BEAKER) (test dxww=439) 92 mg/dL 70-105 CALCIUM (BEAKER) (test byss=619) 8.6 mg/dL 8.4-10.2 EGFR (BEAKER) (test sqbo=3101) 171 mL/min/1.73 sq m ESTIMATED GFR IS NOT ACCURATE CREATININE CLEARANCE IN PREDICTING GLOMERULAR FILTRATION RATE. ESTIMATED GFR IS NOT APPLICABLE FOR DIALYSIS PATIENTS. CBC W/PLT COUNT & AUTO [id number] 06:55:00* Test Item Value Reference Range Comments WHITE BLOOD CELL COUNT (BEAKER) (test vjig=545) 8.4 K/ L 3.5-10.5 RED BLOOD CELL COUNT (BEAKER) (test ehfk=884) 2.71 M/ L 3.93-5.22 HEMOGLOBIN (BEAKER) (test jtsy=358) 6.0 GM/DL 11.2-15.7 HEMATOCRIT (BEAKER) (test qgnq=428) 19.1 % 34.1-44.9 MEAN CORPUSCULAR VOLUME (BEAKER) (test ncij=221) 70.5 fL 79.4-94.8 MEAN CORPUSCULAR HEMOGLOBIN (BEAKER) (test qtpf=372) 22.1 pg 25.6-32.2 MEAN CORPUSCULAR HEMOGLOBIN CONC (BEAKER) (test szxg=566) 31.4 GM/DL 32.2-35.5 RED CELL DISTRIBUTION WIDTH (BEAKER) (test mkix=285) 15.9 % 11.7-14.4 PLATELET COUNT (BEAKER) (test drtd=004) 254 K/CU MM 150-450 MEAN PLATELET VOLUME (BEAKER) (test hroo=789) 10.4 fL 9.4-12.3 NUCLEATED RED BLOOD CELLS (BEAKER) (test bkqm=115) 1 /100 WBC 0-0 NEUTROPHILS RELATIVE PERCENT (BEAKER) (test zsmb=392) 59 % LYMPHOCYTES RELATIVE PERCENT (BEAKER) (test gehm=462) 22 % MONOCYTES RELATIVE PERCENT (BEAKER) (test duwr=046) 13 % EOSINOPHILS RELATIVE PERCENT (BEAKER) (test vibz=538) 6 % BASOPHILS RELATIVE PERCENT (BEAKER) (test fjwv=471) 1 % NEUTROPHILS ABSOLUTE COUNT (BEAKER) (test kzsz=355) 4.91 K/ L 1.56-6.13 LYMPHOCYTES ABSOLUTE COUNT (BEAKER) (test hvsp=967) 1.84 K/ L 1.18-3.74 MONOCYTES ABSOLUTE COUNT (BEAKER) (test smbw=793) 1.07 K/ L 0.24-0.36 EOSINOPHILS ABSOLUTE COUNT (BEAKER) (test sxtc=339) 0.47 K/ L 0.04-0.36 BASOPHILS ABSOLUTE COUNT (BEAKER) (test swtb=957) 0.04 K/ L 0.01-0.08 IMMATURE GRANULOCYTES-RELATIVE PERCENT (BEAKER) (test igfo=2352) 0 % 0-1 PUL PERF IMAGING, PARTIC, [id number] 19:21:00FINAL REPORT PROCEDURE: V/Q LUNG SCAN CPT CODE: 43004 INDICATION: Tachycardia, fever, chest pain PROTOCOL: 10.48 mCi of Xe-133 gas was administered by inhalation. Rebreathing/washout images were obtained in the anterior and the posterior projections. 4.22 mCi of Tc-99m MAA was then injected intravenously, and static perfusion images were obtained in multiple projections. FINDINGS: Ventilation: Initial tracer distribution is physiological. Washout proceeds normally. Perfusion: Tracer distribution is physiological. IMPRESSION: Normal ventilation/perfusion lung scan. Sig sarai: Willam Noel MDReport Verified Date/Time: 06/09/2019 19:21:04 Electro nically signed by: WILLAM NOEL MD on 06/09/2019 07:21 PM BASIC METABOLIC [id number] 08:33:00* Test Item Value Reference Range Comments SODIUM (BEAKER) (test bcpm=971) 144 meq/L 136-145 POTASSIUM (BEAKER) (test hvts=414) 3.3 meq/L 3.5-5.1 CHLORIDE (BEAKER) (test lpbo=966) 118 meq/L 98-107 CO2 (BEAKER) (test njex=557) 22 meq/L 22-29 BLOOD UREA NITROGEN (BEAKER) (test rzwv=793) 3 mg/dL 7-21 CREATININE (BEAKER) (test cdxc=721) 0.47 mg/dL 0.57-1.25 GLUCOSE RANDOM (BEAKER) (test gsyb=978) 93 mg/dL 70-105 CALCIUM (BEAKER) (test crxo=986) 7.3 mg/dL 8.4-10.2 EGFR (BEAKER) (test wbma=2502) 201 mL/min/1.73 sq m ESTIMATED GFR IS NOT ACCURATE CREATININE CLEARANCE IN PREDICTING GLOMERULAR FILTRATION RATE. ESTIMATED GFR IS NOT APPLICABLE FOR DIALYSIS PATIENTS. CBC W/PLT COUNT & AUTO [id number] 08:07:00* Test Item Value Reference Range Comments WHITE BLOOD CELL COUNT (BEAKER) (test ngxx=289) 10.4 K/ L 3.5-10.5 RED BLOOD CELL COUNT (BEAKER) (test icpf=418) 2.72 M/ L 3.93-5.22 HEMOGLOBIN (BEAKER) (test aarg=452) 6.1 GM/DL 11.2-15.7 HEMATOCRIT (BEAKER) (test qmei=524) 19.2 % 34.1-44.9 MEAN CORPUSCULAR VOLUME (BEAKER) (test lnss=730) 70.6 fL 79.4-94.8 MEAN CORPUSCULAR HEMOGLOBIN (BEAKER) (test mxtc=842) 22.4 pg 25.6-32.2 MEAN CORPUSCULAR HEMOGLOBIN CONC (BEAKER) (test hams=199) 31.8 GM/DL 32.2-35.5 RED CELL DISTRIBUTION WIDTH (BEAKER) (test aubh=053) 15.2 % 11.7-14.4 PLATELET COUNT (BEAKER) (test pxvd=389) 229 K/CU MM 150-450 MEAN PLATELET VOLUME (BEAKER) (test ngek=718) 10.2 fL 9.4-12.3 NUCLEATED RED BLOOD CELLS (BEAKER) (test diyg=238) 1 /100 WBC 0-0 NEUTROPHILS RELATIVE PERCENT (BEAKER) (test atck=844) 69 % LYMPHOCYTES RELATIVE PERCENT (BEAKER) (test xfbb=114) 13 % MONOCYTES RELATIVE PERCENT (BEAKER) (test akpg=463) 12 % EOSINOPHILS RELATIVE PERCENT (BEAKER) (test jied=521) 4 % BASOPHILS RELATIVE PERCENT (BEAKER) (test usif=905) 1 % NEUTROPHILS ABSOLUTE COUNT (BEAKER) (test ccyp=222) 7.22 K/ L 1.56-6.13 LYMPHOCYTES ABSOLUTE COUNT (BEAKER) (test mgtw=968) 1.40 K/ L 1.18-3.74 MONOCYTES ABSOLUTE COUNT (BEAKER) (test fxox=287) 1.29 K/ L 0.24-0.36 EOSINOPHILS ABSOLUTE COUNT (BEAKER) (test spdd=076) 0.43 K/ L 0.04-0.36 BASOPHILS ABSOLUTE COUNT (BEAKER) (test pfjf=288) 0.05 K/ L 0.01-0.08 IMMATURE GRANULOCYTES-RELATIVE PERCENT (BEAKER) (test lied=6164) 0 % 0-1 [id number] 09:55:00* Test Item Value Reference Range Comments RPR SCREEN (BEAKER) (test qkfr=435) Nonreactive Nonreactive CBC W/PLT COUNT & AUTO [id number] 07:29:00* Test Item Value Reference Range Comments WHITE BLOOD CELL COUNT (BEAKER) (test ezbk=333) 11.5 K/ L 3.5-10.5 RED BLOOD CELL COUNT (BEAKER) (test yrch=309) 2.73 M/ L 3.93-5.22 HEMOGLOBIN (BEAKER) (test kgmh=777) 6.2 GM/DL 11.2-15.7 HEMATOCRIT (BEAKER) (test gwmn=741) 19.4 % 34.1-44.9 MEAN CORPUSCULAR VOLUME (BEAKER) (test xzae=328) 71.1 fL 79.4-94.8 MEAN CORPUSCULAR HEMOGLOBIN (BEAKER) (test ifxv=236) 22.7 pg 25.6-32.2 MEAN CORPUSCULAR HEMOGLOBIN CONC (BEAKER) (test xhjy=374) 32.0 GM/DL 32.2-35.5 RED CELL DISTRIBUTION WIDTH (BEAKER) (test yxva=638) 14.2 % 11.7-14.4 PLATELET COUNT (BEAKER) (test howw=223) 199 K/CU MM 150-450 MEAN PLATELET VOLUME (BEAKER) (test ifna=813) 10.3 fL 9.4-12.3 NUCLEATED RED BLOOD CELLS (BEAKER) (test rmdi=086) 1 /100 WBC 0-0 (CELLAVISION MANUAL DIFF)2019-06-08 07:29:00* Test Item Value Reference Range Comments NEUTROPHILS - REL (CELLAVISION)(BEAKER) (test tosd=3059) 68 % LYMPHOCYTES - REL (CELLAVISION)(BEAKER) (test vjvs=5857) 19 % MONOCYTES - REL (CELLAVISION)(BEAKER) (test mvbv=9895) 9 % EOSINOPHILS - REL (CELLAVISION)(BEAKER) (test kasn=7710) 2 % METAMYELOCYTES - REL (CELLAVISION)(BEAKER) (test loek=2232) 1 % 0-0 BANDS - REL (CELLAVISION)(BEAKER) (test wgfw=9795) 2 % 0-10 NEUTROPHILS - ABS (CELLAVISION)(BEAKER) (test vwuw=2046) 7.82 K/ul 1.56-6.13 LYMPHOCYTES - ABS (CELLAVISION)(BEAKER) (test caee=8562) 2.19 K/ul 1.18-3.74 MONOCYTES - ABS (CELLAVISION)(BEAKER) (test yead=4327) 1.04 K/uL 0.24-0.36 EOSINOPHILS - ABS (CELLAVISION)(BEAKER) (test iava=3332) 0.23 K/uL 0.04-0.36 METAMYELOCYTES - ABS (CELLAVISION)(BEAKER) (test nczo=8859) 0.12 K/uL 0.00-0.00 BANDS - ABS (CELLAVISION)(BEAKER) (test oekh=0563) 0.23 K/uL 0.00-0.80 TOTAL COUNTED (BEAKER) (test haoa=9640) 100 MANUAL NRBC PER 100 CELLS (BEAKER) (test zoed=3066) 5 /100 WBC 0-0 WBC MORPHOLOGY (BEAKER) (test yzct=904) Normal PLT MORPHOLOGY (BEAKER) (test cgad=642) Normal POLYCHROMATOPHILLIC RBCS(BEAKER) (test bsnp=625) 2+ moderate HYPOCHROMIA (BEAKER) (test huda=451) 1+ few ANISOCYTOSIS (BEAKER) (test gmqs=076) 2+ moderate MICROCYTES (BEAKER) (test odya=300) 2+ moderate POIKILOCYTES (BEAKER) (test swdh=376) 2+ moderate TARGET CELLS (BEAKER) (test pbdc=751) 1+ few SICKLE CELLS (BEAKER) (test xlfy=811) 1+ few ELLIPTOCYTES (BEAKER) (test qgez=204) 1+ few TEAR DROP CELLS (BEAKER) (test yyaz=863) 1+ few FERNANDO-JOLLY BODIES (BEAKER) (test wcdh=678) 1+ few ARTIFACT (CELLAVISION)(BEAKER) (test ztms=2860) Present HELMET CELLS (CELLAVISION)(BEAKER) (test lvit=3011) 1+ few PLATELET CONCENTRATION (CELLAVISION)(BEAKER) (test ldga=5483) Adequate Received comment: User comments: Slide comments: HEPATITIS PANEL, ACUTE 2019-06-08 01:58:00* Test Item Value Reference Range Comments HEPATITIS A IGM ANTIBODY (BEAKER) (test dpvw=207) Nonreactive Nonreactive HEPATITIS B CORE IGM ANTIBODY (BEAKER) (test uwvs=650) Nonreactive Nonreactive HEPATITIS C ANTIBODY (BEAKER) (test gzus=744) Nonreactive Nonreactive HEPATITIS B SURFACE ANTIGEN (2) (BEAKER) (test bdwj=9305) Nonreactive Nonreactive HIV-1 ANTIGEN WITH HIV-1/2 [id number] 01:58:00* Test Item Value Reference Range Comments HIV-1 ANTIGEN WITH HIV 1\\T\\2 ANTIBODY (2) (BEAKER) (test joju=8953) Nonreactive Nonreactive VANCOMYCIN LEVEL, [id number] 01:45:00* Test Item Value Reference Range Comments VANCOMYCIN TROUGH (BEAKER) (test pqvz=498) < ug/mL 10.0-20.0 Please draw 30 mins before 4th vancomycin doseHEPATIC FUNCTION [id number] 01:35:00* Test Item Value Reference Range Comments TOTAL PROTEIN (BEAKER) (test mlnd=074) 6.3 gm/dL 6.0-8.3 ALBUMIN (BEAKER) (test fsgi=0014) 3.9 g/dL 3.5-5.0 BILIRUBIN TOTAL (BEAKER) (test osbf=962) 1.2 mg/dL 0.2-1.2 BILIRUBIN DIRECT (BEAKER) (test bxtk=342) 0.6 mg/dL 0.1-0.5 ALKALINE PHOSPHATASE (BEAKER) (test vsmo=840) 51 U/L 40-150 AST (SGOT) (BEAKER) (test jlpu=657) 19 U/L 5-34 ALT (SGPT) (BEAKER) (test fuxw=049) 13 U/L 6-55 BASIC METABOLIC [id number] 01:35:00* Test Item Value Reference Range Comments SODIUM (BEAKER) (test uclo=034) 141 meq/L 136-145 POTASSIUM (BEAKER) (test qywz=544) 3.7 meq/L 3.5-5.1 CHLORIDE (BEAKER) (test hets=666) 110 meq/L 98-107 CO2 (BEAKER) (test csrt=389) 26 meq/L 22-29 BLOOD UREA NITROGEN (BEAKER) (test ueix=527) 5 mg/dL 7-21 CREATININE (BEAKER) (test jsnc=042) 0.56 mg/dL 0.57-1.25 GLUCOSE RANDOM (BEAKER) (test soxe=087) 108 mg/dL 70-105 CALCIUM (BEAKER) (test pqxl=010) 8.7 mg/dL 8.4-10.2 EGFR (BEAKER) (test gbib=4810) 164 mL/min/1.73 sq m ESTIMATED GFR IS NOT ACCURATE CREATININE CLEARANCE IN PREDICTING GLOMERULAR FILTRATION RATE. ESTIMATED GFR IS NOT APPLICABLE FOR DIALYSIS PATIENTS. LACTATE DEHYDROGENASE (LDH)2019-06-08 01:33:00* Test Item Value Reference Range Comments LACTATE DEHYDROGENASE (BEAKER) (test imyl=144) 318 U/L 125-220 C-REACTIVE [id number] 01:33:00* Test Item Value Reference Range Comments C-REACTIVE PROTEIN (BEAKER) (test usrj=155) 8.51 mg/dL 0.00-0.50 STREP PNEUMONIAE [id number] 23:09:00* Test Item Value Reference Range Comments STREP PNEUMONIAE ANTIGEN (BEAKER) (test kuad=5451) Presumptive negative for pneumococcal pneumonia - see comment Presumptive negative for pneumococcal pneumonia - see commen Presumptive negative for pneumococcal pneumonia, suggesting no current or recent pneumococcal infection. Infection due to S. pneumoniae cannot be ruled out sin e the antigen present in the sample may be below the detection limit of the test .[id number] 09:53:00* Test Item Value Reference Range Comments FERRITIN (BEAKER) (test ignu=366) 2949 ng/mL 5-275 CBC W/PLT COUNT & AUTO [id number] 08:07:00* Test Item Value Reference Range Comments WHITE BLOOD CELL COUNT (BEAKER) (test soxv=440) 10.7 K/ L 3.5-10.5 RED BLOOD CELL COUNT (BEAKER) (test npbq=086) 2.67 M/ L 3.93-5.22 HEMOGLOBIN (BEAKER) (test dxlo=057) 6.1 GM/DL 11.2-15.7 HEMATOCRIT (BEAKER) (test yqhm=017) 19.1 % 34.1-44.9 MEAN CORPUSCULAR VOLUME (BEAKER) (test xytl=663) 71.5 fL 79.4-94.8 MEAN CORPUSCULAR HEMOGLOBIN (BEAKER) (test omlb=296) 22.8 pg 25.6-32.2 MEAN CORPUSCULAR HEMOGLOBIN CONC (BEAKER) (test uegy=792) 31.9 GM/DL 32.2-35.5 RED CELL DISTRIBUTION WIDTH (BEAKER) (test lvwl=322) 14.9 % 11.7-14.4 PLATELET COUNT (BEAKER) (test tdzr=122) 205 K/CU MM 150-450 MEAN PLATELET VOLUME (BEAKER) (test yqad=510) 10.5 fL 9.4-12.3 NUCLEATED RED BLOOD CELLS (BEAKER) (test hbrp=742) 1 /100 WBC 0-0 (CELLAVISION MANUAL DIFF)2019-06-07 08:07:00* Test Item Value Reference Range Comments NEUTROPHILS - REL (CELLAVISION)(BEAKER) (test nsze=2989) 79 % LYMPHOCYTES - REL (CELLAVISION)(BEAKER) (test ejkz=3401) 13 % MONOCYTES - REL (CELLAVISION)(BEAKER) (test cnnz=3740) 8 % NEUTROPHILS - ABS (CELLAVISION)(BEAKER) (test fgew=7050) 8.45 K/ul 1.56-6.13 LYMPHOCYTES - ABS (CELLAVISION)(BEAKER) (test eppu=5888) 1.39 K/ul 1.18-3.74 MONOCYTES - ABS (CELLAVISION)(BEAKER) (test lgvp=7766) 0.86 K/uL 0.24-0.36 TOTAL COUNTED (BEAKER) (test mayk=9976) 100 MANUAL NRBC PER 100 CELLS (BEAKER) (test nckt=2320) 7 /100 WBC 0-0 WBC MORPHOLOGY (BEAKER) (test oxia=564) Normal GIANT PLATELETS (BEAKER) (test gbdg=101) Present LARGE PLT(BEAKER) (test kmlj=0314) Present POLYCHROMATOPHILLIC RBCS(BEAKER) (test sixn=109) 1+ few HYPOCHROMIA (BEAKER) (test kjrp=992) 2+ moderate ANISOCYTOSIS (BEAKER) (test azki=647) 2+ moderate MICROCYTES (BEAKER) (test gcut=795) 1+ few POIKILOCYTES (BEAKER) (test qwha=838) 1+ few TARGET CELLS (BEAKER) (test fsjs=597) 1+ few SCHISTOCYTES (BEAKER) (test cygn=818) 1+ few SICKLE CELLS (BEAKER) (test tjmj=189) 1+ few OVALOCYTES (BEAKER) (test auyr=900) 1+ few TEAR DROP CELLS (BEAKER) (test yeck=770) 1+ few STOMATOCYTES (BEAKER) (test tsjm=108) 1+ few JOE CELLS (BEAKER) (test bmft=220) 1+ few BASOPHILIC STIPPLING (BEAKER) (test nozd=693) Present ARTIFACT (CELLAVISION)(BEAKER) (test nfkk=2525) Present HELMET CELLS (CELLAVISION)(BEAKER) (test xeqi=9386) 1+ few PLATELET CONCENTRATION (CELLAVISION)(BEAKER) (test idvb=4825) Adequate Received comment: User comments: Slide comments: WBC: SEGMENTED WITH TOXIC GRANU LATIONS PRESENT BASIC METABOLIC [id number] 06:28:00* Test Item Value Reference Range Comments SODIUM (BEAKER) (test jxmg=044) 140 meq/L 136-145 POTASSIUM (BEAKER) (test nzgc=117) 3.3 meq/L 3.5-5.1 CHLORIDE (BEAKER) (test nvkb=834) 111 meq/L 98-107 CO2 (BEAKER) (test fekd=382) 23 meq/L 22-29 BLOOD UREA NITROGEN (BEAKER) (test croi=026) 4 mg/dL 7-21 CREATININE (BEAKER) (test dtst=367) 0.52 mg/dL 0.57-1.25 GLUCOSE RANDOM (BEAKER) (test qmdy=183) 115 mg/dL 70-105 CALCIUM (BEAKER) (test chih=916) 8.4 mg/dL 8.4-10.2 EGFR (BEAKER) (test nmzs=5056) 179 mL/min/1.73 sq m ESTIMATED GFR IS NOT ACCURATE CREATININE CLEARANCE IN PREDICTING GLOMERULAR FILTRATION RATE. ESTIMATED GFR IS NOT APPLICABLE FOR DIALYSIS PATIENTS. URINALYSIS W/ REFLEX URINE [id number] 18:01:00* Test Item Value Reference Range Comments COLOR (BEAKER) (test cpbb=002) Light Yellow CLARITY (BEAKER) (test hwtr=726) Clear SPECIFIC GRAVITY UA (BEAKER) (test rfbw=341) 1.007 1.001-1.035 PH UA (BEAKER) (test ohqw=632) 6.0 5.0-8.0 PROTEIN UA (BEAKER) (test qqqa=480) Negative Negative GLUCOSE UA (BEAKER) (test thmi=991) Negative Negative KETONES UA (BEAKER) (test zuin=635) Negative Negative BILIRUBIN UA (BEAKER) (test nlfo=047) Negative Negative BLOOD UA (BEAKER) (test rpdm=818) Negative Negative NITRITE UA (BEAKER) (test nfsg=807) Negative Negative LEUKOCYTE ESTERASE UA (BEAKER) (test yubi=814) Negative Negative UROBILINOGEN UA (BEAKER) (test frjo=104) 0.2 mg/dL 0.2-1.0 RBC UA (BEAKER) (test qugf=173) 0 /HPF WBC UA (BEAKER) (test fsde=270) < /HPF MUCUS (BEAKER) (test rpeb=9131) Rare SOURCE(BEAKER) (test nseg=1961) CBC W/PLT COUNT & AUTO [id number] 11:17:00* Test Item Value Reference Range Comments WHITE BLOOD CELL COUNT (BEAKER) (test gvna=972) 12.6 K/ L 3.5-10.5 RED BLOOD CELL COUNT (BEAKER) (test fckr=199) 3.02 M/ L 3.93-5.22 HEMOGLOBIN (BEAKER) (test psgs=829) 7.0 GM/DL 11.2-15.7 HEMATOCRIT (BEAKER) (test uwwa=184) 21.7 % 34.1-44.9 MEAN CORPUSCULAR VOLUME (BEAKER) (test syop=063) 71.9 fL 79.4-94.8 MEAN CORPUSCULAR HEMOGLOBIN (BEAKER) (test dhns=245) 23.2 pg 25.6-32.2 MEAN CORPUSCULAR HEMOGLOBIN CONC (BEAKER) (test jgmq=944) 32.3 GM/DL 32.2-35.5 RED CELL DISTRIBUTION WIDTH (BEAKER) (test bmbh=225) 15.9 % 11.7-14.4 PLATELET COUNT (BEAKER) (test xupv=198) 233 K/CU MM 150-450 MEAN PLATELET VOLUME (BEAKER) (test qevh=742) 10.5 fL 9.4-12.3 MPV-Approximately 20% positive bias due to method change. NUCLEATED RED BLOOD CELLS (BEAKER) (test whac=483) 2 /100 WBC 0-0 (CELLAVISION MANUAL DIFF)2019-06-06 11:17:00* Test Item Value Reference Range Comments NEUTROPHILS - REL (CELLAVISION)(BEAKER) (test yeue=5134) 78 % LYMPHOCYTES - REL (CELLAVISION)(BEAKER) (test rhpo=3175) 13 % MONOCYTES - REL (CELLAVISION)(BEAKER) (test rxcj=2855) 8 % BASOPHILS - REL (CELLAVISION)(BEAKER) (test gnhx=1204) 2 % NEUTROPHILS - ABS (CELLAVISION)(BEAKER) (test spks=5941) 9.83 K/ul 1.56-6.13 LYMPHOCYTES - ABS (CELLAVISION)(BEAKER) (test anlj=5033) 1.64 K/ul 1.18-3.74 MONOCYTES - ABS (CELLAVISION)(BEAKER) (test wzrm=6224) 1.01 K/uL 0.24-0.36 BASOPHILS - ABS (CELLAVISION)(BEAKER) (test blew=0606) 0.25 K/uL 0.01-0.08 TOTAL COUNTED (BEAKER) (test urkl=8064) 100 MANUAL NRBC PER 100 CELLS (BEAKER) (test pxdm=9992) 3 /100 WBC 0-0 WBC MORPHOLOGY (BEAKER) (test lvov=189) Normal PLT MORPHOLOGY (BEAKER) (test slem=737) Normal POLYCHROMATOPHILLIC RBCS(BEAKER) (test owgq=690) 1+ few ANISOCYTOSIS (BEAKER) (test wqnu=682) 2+ moderate MICROCYTES (BEAKER) (test loho=018) 2+ moderate POIKILOCYTES (BEAKER) (test qnfr=552) 1+ few TARGET CELLS (BEAKER) (test ugus=530) 1+ few SICKLE CELLS (BEAKER) (test mjjw=132) 2+ moderate FERNANDO-JOLLY BODIES (BEAKER) (test ytka=295) 1+ few ARTIFACT (CELLAVISION)(BEAKER) (test wrju=6831) Present PLATELET CONCENTRATION (CELLAVISION)(BEAKER) (test vplj=7164) Adequate Received comment: User comments: Slide comments: LACTATE DEHYDROGENASE (LDH) 2019-06-06 08:23:00* Test Item Value Reference Range Comments LACTATE DEHYDROGENASE (BEAKER) (test zaeq=275) 331 U/L 125-220 BASIC METABOLIC [id number] 08:23:00* Test Item Value Reference Range Comments SODIUM (BEAKER) (test igvq=089) 146 meq/L 136-145 POTASSIUM (BEAKER) (test sdmd=844) 3.7 meq/L 3.5-5.1 CHLORIDE (BEAKER) (test layl=413) 115 meq/L 98-107 CO2 (BEAKER) (test vooc=591) 25 meq/L 22-29 BLOOD UREA NITROGEN (BEAKER) (test drch=797) 4 mg/dL 7-21 CREATININE (BEAKER) (test igzu=007) 0.55 mg/dL 0.57-1.25 GLUCOSE RANDOM (BEAKER) (test oyep=991) 109 mg/dL 70-105 CALCIUM (BEAKER) (test gusm=982) 8.5 mg/dL 8.4-10.2 EGFR (BEAKER) (test bdlk=2352) 168 mL/min/1.73 sq m ESTIMATED GFR IS NOT ACCURATE CREATININE CLEARANCE IN PREDICTING GLOMERULAR FILTRATION RATE. ESTIMATED GFR IS NOT APPLICABLE FOR DIALYSIS PATIENTS. RETICULOCYTE [id number] 08:21:00* Test Item Value Reference Range Comments RETICULOCYTE COUNT PCT (SILAS) (test ydmj=404) 8.6 % 0.5-1.7 RAD, CHEST, 1 VIEW, NON [id number] 07:45:00Reason for exam:->chest painShould this be performed at the bedside?->YesFINAL REPORT RAD, CHEST, 1 VIEW, NON DEPT INDICATION: chest pain COMPARISON: February 16, 2019 FINDINGS: Portable frontal view of the chest. IMPRESSION: Support Lines: None. Lungs and pleura: Atelectasis versus scarring at the left base. No consolidation. No pneumothorax.Heart and mediastinum: Stable contours. Additional findings: None. Signed: JR Ortiz [facility] Verified Date/Time: 06/06/2019 07:45:43 Reading Location: [facility] Radiology Reading Room T SINGLE (PORTABLE)2019-03-27 23:21:00 [place] [address] Patient Name: TERE CHRISTIAN MR #: [id number] : 1995 Age/Sex: 23/F Req #: [id number] Adm Physician: Ordered by: KLAUDIA HORNE MD Report #: [id number] Location: ER Room/Bed: Procedure: [id number] DX/CHEST SINGLE (PORTABLE) Exam Date: Exam Time: REPORT STATUS: Signed EX AMINATION: CHEST SINGLE (PORTABLE) INDICATION: SOB Y COMPARISON: 03/19/2019 FINDINGS: AP view TUBES and LINES: No ne. LUNGS: Persistent left lower lung field/lingular opacification. PL EURA: No significant pleural effusion or pneumothorax. HEART AND MEDIASTIN UM: The cardiac silhouette is prominent on this AP view. BONES AND S OFT TISSUES: No acute osseous lesion. Soft tissues are unremarkable. UP PER ABDOMEN: No free air under the diaphragm. IMPRESSION: Persistent left lower lung field/lingular focal opacification, representing atelectasis/ scarring or pneumonia in the appropriate clinical context. Signed by: Dr Lucian Pathak MD on 03/27/2019 11:26 PM Dictated By: EDITH PATHAK MD E lectronically Signed By: EDITH PATHAK MD on 03/27/192325 Transcribed By: LAI COVINGTON on 03/27/192325 COPY TO: KLAUDIA HORNE MD CHEST SINGLE (PORTABLE)2019-03-19 01:09:00 [place] [address] Patient Name: TERE JACK MR #: [id number] : 1995 Age/Sex: 23/F Req #: [id number] Adm Physician: Ordered by: KLAUDIA HORNE MD Report #: [id number] Location: ER Room/Bed: Proced ure: [id number] DX/CHEST SINGLE (PORTABLE) Exam Date: 03/19/19 Exam Time: [address] ATUS: Signed EXAMINATION: CHEST SINGLE (PORTABLE) COMPARISON: Chest x-ray 03/11/2019, CT chest 02/26/2019 INDICATION: Sickle cell crisis, shortne ss of breath sob [id number] Y DISCUSSION: Frontal view of the chest obtained at 0035 hours. HEART AND MEDIASTINUM: The cardiomedi astinal silhouette is unremarkable. LINES: None. LUNGS: Improved ae ration of the lungs. Linear band of scarring or atelectasis in the lingula. rspace opacities in the lung bases have improved. There is a residual airspace opacity in the base of the left lung that may represent residual findings of acute chest syndrome. This is in the same location as the airspace opacities i dentified on CT. No interstitial edema. PLEURA: No pleural effusion or pn eumothorax. BONES AND SOFT TISSUES: Sclerotic foci in the humeral heads an d H-shaped vertebral bodies are stable. Humeral heads are normal in morphology . The soft tissues are normal. IMPRESSION: Improved vascular conges tion. Nodular opacity in the base of the left lung is likely the sequela of ac zonia chest syndrome identified on CT. No new cardiopulmonary findings. Sig sarai by: Dr. Keke Khan MD on 03/19/2019 1:14 AM Dictated By: SARAH KHAN MD 3 Transcribed By: SOMMER on 03/19/19113 COPY TO: KLAUDIA HORNE MD CHEST SINGLE (PORTABLE)2019-03-11 20:00:00 [place] [address] Patient Name: TERE JACK MR #: [id number] : 1995 Age/Sex: 23/F Req #: [id number] Adm Physician: Ordered by: JOYCE URISA LAMP ASSEMBLER Report #: [id number] Location: ER Room/Bed: Procedure : [id number] DX/CHEST SINGLE (PORTABLE) Exam Date: 03/11/19 Exam Time: 1945 REPORT STATU S: Signed EXAMINATION: CHEST SINGLE (PORTABLE) INDICATION: Sic kle cell crisis. COMPARISON: CT chest 02/26/2019. Chest x-ray 02/24/2019. FINDINGS: AP view TUBES and LINES: None. LUNGS: Lungs are not well inflated. There are bibasilar atelectasis. There is mild prominence of the central pulmonary vasculature, consistent with pulmonary venous congest ion. PLEURA: No pleural effusion or pneumothorax. HEART AND MEDIASTIN UM: The cardiomediastinal silhouette is unremarkable. BONES AND SOFT T ISSUES: No acute osseous lesion. Hyperdense bones, consistent with sickle candelario l disease. Soft tissues are unremarkable. UPPER ABDOMEN: No free air under the diaphragm. IMPRESSION: Grossly unchanged Central pulmonary venou s congestion, consistent with sickle cell crisis. Signed by: Dr. Jacky butcher M.D. on 03/11/2019 8:01 PM Dictated By: JACKY JC MD Electronically Sig sarai By: JACKY JC MD on 03/11/192000 Transcribed By: SOMMER on 03/11/192000 COPY TO: JOYCE URIAS LAMP ASSEMBLER CT CHEST [id number] 16:11:00 [place] [address] Patient Name: TERE JACK MR #: [id number] : [birth year] Age/Sex: 23/F Req #: [id number] Adm Physician: SHAR BAY MD Ordered by: SHAR BAY MD Report #: [id number] Location: MED/SURG2 Room/Bed: [facility] Procedure: [id number] C T/CT CHEST WO Exam Date: 02/26/19 Exam Time: 1520 REPORT STATUS: Signed EXAM: CT [facility] without contrast INDICATION: Rib pain. COMPARISON: None TECH NIQUE: Chest was scanned utilizing a multidetector helical scanner from the joselyn ng apex through the level of the adrenal glands without administration of IV c ontrast. Coronal and sagittal reformations were obtained. Routine protocol was performed. IV CONTRAST: 100 mL of Isovue 370. RA DIATION DOSE: Total DLP: 408.3 mGy*cm Dose modulation, iterative reconstruc tion, and/or weight based adjustment of the mA/kV was utilized to reduce the r adiation dose to as low as reasonably achievable. COMPLICATIO NS: None FINDINGS: LINES/ TUBES: None. LUNGS AND AIRWAYS: Central airways are patent. Patchy groundglass and linear opacities dependently, most pronounced in the lower lobes and lingula. There is a small consolidative opa city in the left lower lobe with air bronchograms, as seen on series 3, image 61. PLEURA: The pleural spaces are clear. HEART AND MEDIASTINUM: The t hyroid gland is normal. No mediastinal, hilar or axillary lymphadenopathy. T he heart is normal in size.. There is no pericardial effusion. UPPER ABDOMEN: Limited non-contrast views of the upper abdomen. There is cholelithi asis without CT evidence of cholecystitis. There are ill-defined linear calcif ications within the splenic parenchyma and the periphery of the spleen. B ONES/SOFT TISSUES: There is a Sully log appearance of the vertebral bodies, consistent with history of sickle cell. There is diffuse osteopenia with heter ogeneous bony appearance. No evidence of rib fracture. IMPRESSION: Patch y groundglass opacities with linear atelectasis in the dependent lower lungs. Small consolidative opacity within left lower lobe with air bronchograms. Find ings may represent any combination of atelectasis, early acute chest syndrome and/or pneumonia. Calcifications within the spleen, which are likely secon naomie to sickle cell disease. Bony findings of sickle cell disease as above. Cholelithiasis without CT evidence of cholecystitis. Signed by: Dr. Cira Clarke MD on 02/26/2019 4:55 PM Dictated By: OMER CLARKE MD Electronicall y Signed By: OMER CLARKE MD on 02/26/191654 Transcribed By: SOMMER on 02/26/191654 COPY TO: SHAR BAY MD US ABDOMEN [id number] 14:48:00 [place] [address] Patient Name: TERE JACK MR #: [id number] : 1995 Age/Sex: 23/F Req #: [id number] Adm Physician: SHAR BAY MD Ordered by: SHAR BAY MD Report #: [id number] Location: MED/SURG2 Room/Bed: [facility] Procedure: [id number] U S/US ABDOMEN COMPLETE Exam Date: Exam Time: REPORT STATUS: Signed EXAM: US ABDOMEN COMPLETE INDICATION: Abdominal pain. COMPARISON: None TECHNIQ UE: Transverse and longitudinal harp scale and color doppler sonographic image s of the abdomen were obtained. FINDINGS: LIVER 17.3 cm in the right midclavicular line. Increased echogenicity of the liver with normal contour, n o masses. SPLEEN 12.4 cm in maximum diameter. There is a 3.2 cm hypoech oic lesion in the spleen. GALLBLADDER Decompressed. There is gallbladder sludge and gallstones. No gallbladder wall thickening, distension, or perichol ecystic fluid. Positive reported sonographic Fraga's sign. BILE DUCTS No intra nor extra-hepatic biliary dilation. Common bile duct measures 0.4 cm PANCREAS: Visualized portions are normal. RIGHT KIDNEY: 13.5 cm Echo genicity: Normal Collecting System: No hydronephrosis Stones: None Cyst/ Mass: None LEFT KIDNEY: 10.8 cm Echogenicity: Normal Collecting System: No hydronephrosis Stones: None Cyst/Mass: None VESSELS: Aorta: Vis ualized portions are within normal size limits Inferior Vena Cava: Visualized portions are normal Main Portal Vein: 1.0 cm, normal size with hepatopetal nasir w. FREE FLUID: None IMPRESSION: Gallbladder sludge and cholelithiasi s without evidence of wall thickening, pericholecystic fluid or hyperemia. Emma pite the positive sonographic Fraga sign, the imaging findings are not sugges tive of cholecystitis. Suggest correlation with clinical exam. Follow-up ultra sound may be considered. Hepatomegaly with hepatic steatosis. Indeterm inate 3.2 cm hypoechoic lesion within the spleen. Spleen protocol MRI is sugge sted for further evaluation. Signed by: Dr. Omer Clarke MD on 02/26/2019 2:54 PM Dictated By: OMER CLARKE MD 1167 COPY TO: SHAR BAY MD CHEST SINGLE (PORTABLE)2019-02-24 05:59:00 [place] [address] Patient Name: TERE JACK MR #: [id number] : [birth year] Age/Sex: 23/F Req #: [id number] Adm Physician: SHAR BAY MD Ordered by: YARELI BEAL MD Report #: [id number] Location: MED/SURG Room/Bed: [facility] Procedure: [id number] DX/CHEST SINGLE (PORTABLE) Exam Date: 02/24/19 Exam Time: 05 REPORT STATUS: Signed EXAMINATION: CHEST SINGLE (PORTABLE) INDICATION: PNEMONIA [id number] Y COMPARISON: 02/23/2019 FINDINGS: AP view TUBES and LINES: None. LUNGS: Low lung volumes. Left lung base o pacities. Also slightly increased medial right base opacities. PLEURA: N o significant pleural effusion or pneumothorax. HEART AND MEDIASTINUM: The cardiac silhouette is enlarged on this AP view. BONES AND SOFT TISSUES : No acute osseous lesion. Soft tissues are unremarkable. UPPER ABDOMEN : No free air under the diaphragm. IMPRESSION: Not significantly butch nged or slightly increased left basilar opacities, representing acute chest sy ndrome and/or pneumonia. Also slightly increased medial right base opacities. Signed by: Dr. Edith Pathak MD on 02/24/2019 6:03 AM Dictated By: EDITH PATHAK MD 2 Transcribed By: SOMMER on 02/24/19602 COPY TO: YARELI BEAL MD CHEST SINGLE (PORTABLE)2019-02-23 12:04:00 [place] [address] Patient Name: TERE JACK MR #: [id number] : 1995 Age/Sex: 23/F Req #: [id number] Adm Physician: Ordered by: YARELI BEAL MD Report #: [id number] Location: ER Room/Bed: Procedure: [id number] DX/CHEST SINGLE (PORTABLE) Exam Date: 02/23/19 Exam Time: 1135 REPORT STATUS: Signed EXAMINATION: CHEST SINGLE (PORTABLE) INDICATION: Sickle cell painful crisis COMPARISON: None FINDINGS: TUBES and LINES: None. LUNGS: Lungs are not well inflated. There are patchy opacities in the bila teral lower lungs, most confluent in the left lower lobe. No evidence of pulmo nary edema. PLEURA: No pleural effusion or pneumothorax. HEART AND M EDIASTINUM: The cardiomediastinal silhouette is unremarkable. BONES AN D SOFT TISSUES: No acute osseous abnormality. UPPER ABDOMEN: No free air under the diaphragm. IMPRESSION: Patchy bilateral lower lung consoli dation suggestive of acute chest syndrome or pneumonia. Recommend follow-up ch est radiograph to assess for resolution. Signed by: Dr. Omer Clarke MD on 12:06 PM Dictated By: OMER CLARKE MD 1206 Transcribed By: SOMMER on 02/23/19 1206 DOLLY DRIVER Y TO: YARELI BEAL MD LACTATE DEHYDROGENASE (LDH)2019-02-22 09:34:00 * Test Item Value Reference Range Comments LACTATE DEHYDROGENASE (BEAKER) (test uxee=394) 301 U/L 125-220 BASIC METABOLIC [id number] 09:34:00* Test Item Value Reference Range Comments SODIUM (BEAKER) (test wnjo=639) 140 meq/L 136-145 POTASSIUM (BEAKER) (test bmzu=096) 3.6 meq/L 3.5-5.1 CHLORIDE (BEAKER) (test uadp=993) 105 meq/L 98-107 CO2 (BEAKER) (test poha=380) 27 meq/L 22-29 BLOOD UREA NITROGEN (BEAKER) (test fuwb=425) 4 mg/dL 7-21 CREATININE (BEAKER) (test zdtr=016) 0.55 mg/dL 0.57-1.25 GLUCOSE RANDOM (BEAKER) (test ewql=800) 120 mg/dL 70-105 CALCIUM (BEAKER) (test frie=165) 9.5 mg/dL 8.4-10.2 EGFR (BEAKER) (test kbrx=9066) 168 mL/min/1.73 sq m ESTIMATED GFR IS NOT ACCURATE CREATININE CLEARANCE IN PREDICTING GLOMERULAR FILTRATION RATE. ESTIMATED GFR IS NOT APPLICABLE FOR DIALYSIS PATIENTS. CBC W/PLT COUNT & AUTO [id number] 09:12:00* Test Item Value Reference Range Comments WHITE BLOOD CELL COUNT (BEAKER) (test aagk=998) 11.8 K/ L 3.5-10.5 RED BLOOD CELL COUNT (BEAKER) (test zwxu=494) 3.26 M/ L 3.93-5.22 HEMOGLOBIN (BEAKER) (test hydk=002) 7.2 GM/DL 11.2-15.7 HEMATOCRIT (BEAKER) (test vhjq=343) 23.0 % 34.1-44.9 MEAN CORPUSCULAR VOLUME (BEAKER) (test dlhs=465) 70.6 fL 79.4-94.8 MEAN CORPUSCULAR HEMOGLOBIN (BEAKER) (test byyq=085) 22.1 pg 25.6-32.2 MEAN CORPUSCULAR HEMOGLOBIN CONC (BEAKER) (test ekno=658) 31.3 GM/DL 32.2-35.5 RED CELL DISTRIBUTION WIDTH (BEAKER) (test utql=256) 17.2 % 11.7-14.4 PLATELET COUNT (BEAKER) (test uytm=744) 329 K/CU MM 150-450 MEAN PLATELET VOLUME (BEAKER) (test vglt=185) 9.6 fL 9.4-12.3 NUCLEATED RED BLOOD CELLS (BEAKER) (test gmjl=395) 2 /100 WBC 0-0 NEUTROPHILS RELATIVE PERCENT (BEAKER) (test yvhl=292) 76 % LYMPHOCYTES RELATIVE PERCENT (BEAKER) (test zbmc=166) 14 % MONOCYTES RELATIVE PERCENT (BEAKER) (test anwt=830) 7 % EOSINOPHILS RELATIVE PERCENT (BEAKER) (test tqyk=857) 2 % BASOPHILS RELATIVE PERCENT (BEAKER) (test suoy=419) 1 % NEUTROPHILS ABSOLUTE COUNT (BEAKER) (test hlvo=542) 8.91 K/ L 1.56-6.13 LYMPHOCYTES ABSOLUTE COUNT (BEAKER) (test rvfh=998) 1.67 K/ L 1.18-3.74 MONOCYTES ABSOLUTE COUNT (BEAKER) (test dgqc=449) 0.86 K/ L 0.24-0.36 EOSINOPHILS ABSOLUTE COUNT (BEAKER) (test jtfu=826) 0.25 K/ L 0.04-0.36 BASOPHILS ABSOLUTE COUNT (BEAKER) (test mnwz=809) 0.08 K/ L 0.01-0.08 IMMATURE GRANULOCYTES-RELATIVE PERCENT (BEAKER) (test seuq=5154) 0 % 0-1 RETICULOCYTE [id number] 09:12:00* Test Item Value Reference Range Comments RETICULOCYTE COUNT PCT (BEAKER) (test zqxh=593) 9.7 % 0.5-1.7 BASIC METABOLIC [id number] 12:44:00* Test Item Value Reference Range Comments SODIUM (BEAKER) (test hkra=004) 141 meq/L 136-145 POTASSIUM (BEAKER) (test opdp=140) 3.4 meq/L 3.5-5.1 CHLORIDE (BEAKER) (test ircv=431) 106 meq/L 98-107 CO2 (BEAKER) (test rzzv=634) 25 meq/L 22-29 BLOOD UREA NITROGEN (BEAKER) (test qvyx=742) 3 mg/dL 7-21 CREATININE (BEAKER) (test atym=273) 0.57 mg/dL 0.57-1.25 GLUCOSE RANDOM (BEAKER) (test ctol=186) 109 mg/dL 70-105 CALCIUM (BEAKER) (test dvfo=889) 8.9 mg/dL 8.4-10.2 EGFR (BEAKER) (test sztu=8224) 161 mL/min/1.73 sq m ESTIMATED GFR IS NOT ACCURATE CREATININE CLEARANCE IN PREDICTING GLOMERULAR FILTRATION RATE. ESTIMATED GFR IS NOT APPLICABLE FOR DIALYSIS PATIENTS. CBC W/PLT COUNT & AUTO [id number] 06:10:00* Test Item Value Reference Range Comments WHITE BLOOD CELL COUNT (BEAKER) (test yqcn=882) 9.6 K/ L 3.5-10.5 RED BLOOD CELL COUNT (BEAKER) (test byrq=701) 2.96 M/ L 3.93-5.22 HEMOGLOBIN (BEAKER) (test cneb=072) 6.6 GM/DL 11.2-15.7 HEMATOCRIT (BEAKER) (test ryse=741) 21.1 % 34.1-44.9 MEAN CORPUSCULAR VOLUME (BEAKER) (test sdnd=945) 71.3 fL 79.4-94.8 MEAN CORPUSCULAR HEMOGLOBIN (BEAKER) (test pcrs=405) 22.3 pg 25.6-32.2 MEAN CORPUSCULAR HEMOGLOBIN CONC (BEAKER) (test lbny=285) 31.3 GM/DL 32.2-35.5 RED CELL DISTRIBUTION WIDTH (BEAKER) (test cyqt=675) 16.6 % 11.7-14.4 PLATELET COUNT (BEAKER) (test jrux=022) 294 K/CU MM 150-450 MEAN PLATELET VOLUME (BEAKER) (test hqow=710) 10.2 fL 9.4-12.3 NUCLEATED RED BLOOD CELLS (BEAKER) (test crsc=882) 2 /100 WBC 0-0 NEUTROPHILS RELATIVE PERCENT (BEAKER) (test cwzv=412) 57 % LYMPHOCYTES RELATIVE PERCENT (BEAKER) (test zrjc=089) 28 % MONOCYTES RELATIVE PERCENT (BEAKER) (test ullv=820) 9 % EOSINOPHILS RELATIVE PERCENT (BEAKER) (test uddd=094) 4 % BASOPHILS RELATIVE PERCENT (BEAKER) (test aaxe=722) 1 % NEUTROPHILS ABSOLUTE COUNT (BEAKER) (test txkt=984) 5.40 K/ L 1.56-6.13 LYMPHOCYTES ABSOLUTE COUNT (BEAKER) (test zkpt=453) 2.64 K/ L 1.18-3.74 MONOCYTES ABSOLUTE COUNT (BEAKER) (test wfri=132) 0.89 K/ L 0.24-0.36 EOSINOPHILS ABSOLUTE COUNT (BEAKER) (test fqqg=083) 0.42 K/ L 0.04-0.36 BASOPHILS ABSOLUTE COUNT (BEAKER) (test qvaq=416) 0.12 K/ L 0.01-0.08 IMMATURE GRANULOCYTES-RELATIVE PERCENT (BEAKER) (test mpsp=1818) 1 % 0-1 RETICULOCYTE [id number] 06:10:00* Test Item Value Reference Range Comments RETICULOCYTE COUNT PCT (BEAKER) (test npmu=708) 8.0 % 0.5-1.7 BASIC METABOLIC [id number] 13:34:00* Test Item Value Reference Range Comments SODIUM (BEAKER) (test wxki=593) 143 meq/L 136-145 POTASSIUM (BEAKER) (test iggn=444) 4.1 meq/L 3.5-5.1 CHLORIDE (BEAKER) (test maex=837) 107 meq/L 98-107 CO2 (BEAKER) (test dgkc=361) 30 meq/L 22-29 BLOOD UREA NITROGEN (BEAKER) (test ofly=524) 3 mg/dL 7-21 CREATININE (BEAKER) (test njtm=019) 0.54 mg/dL 0.57-1.25 GLUCOSE RANDOM (BEAKER) (test tvvp=219) 95 mg/dL 70-105 CALCIUM (BEAKER) (test zpmj=803) 9.5 mg/dL 8.4-10.2 EGFR (BEAKER) (test clbu=4799) 171 mL/min/1.73 sq m ESTIMATED GFR IS NOT ACCURATE CREATININE CLEARANCE IN PREDICTING GLOMERULAR FILTRATION RATE. ESTIMATED GFR IS NOT APPLICABLE FOR DIALYSIS PATIENTS. LACTATE DEHYDROGENASE (LDH)2019-02-20 12:57:00* Test Item Value Reference Range Comments LACTATE DEHYDROGENASE (BEAKER) (test iknm=449) 392 U/L 125-220 CBC W/PLT COUNT & AUTO [id number] 12:51:00* Test Item Value Reference Range Comments WHITE BLOOD CELL COUNT (BEAKER) (test mmer=383) 8.5 K/ L 3.5-10.5 RED BLOOD CELL COUNT (BEAKER) (test kgtb=980) 3.18 M/ L 3.93-5.22 HEMOGLOBIN (BEAKER) (test thhq=832) 7.1 GM/DL 11.2-15.7 HEMATOCRIT (BEAKER) (test vgxt=237) 22.4 % 34.1-44.9 MEAN CORPUSCULAR VOLUME (BEAKER) (test ewnv=680) 70.4 fL 79.4-94.8 MEAN CORPUSCULAR HEMOGLOBIN (BEAKER) (test weie=590) 22.3 pg 25.6-32.2 MEAN CORPUSCULAR HEMOGLOBIN CONC (BEAKER) (test iebx=145) 31.7 GM/DL 32.2-35.5 RED CELL DISTRIBUTION WIDTH (BEAKER) (test hzem=616) 16.3 % 11.7-14.4 PLATELET COUNT (BEAKER) (test svsm=692) 301 K/CU MM 150-450 MEAN PLATELET VOLUME (BEAKER) (test eaxi=310) 9.8 fL 9.4-12.3 NUCLEATED RED BLOOD CELLS (BEAKER) (test tejt=441) 2 /100 WBC 0-0 NEUTROPHILS RELATIVE PERCENT (BEAKER) (test slbr=378) 59 % LYMPHOCYTES RELATIVE PERCENT (BEAKER) (test icju=485) 25 % MONOCYTES RELATIVE PERCENT (BEAKER) (test gsyi=633) 8 % EOSINOPHILS RELATIVE PERCENT (BEAKER) (test roil=052) 6 % BASOPHILS RELATIVE PERCENT (BEAKER) (test kzlr=872) 1 % NEUTROPHILS ABSOLUTE COUNT (BEAKER) (test cmij=801) 5.02 K/ L 1.56-6.13 LYMPHOCYTES ABSOLUTE COUNT (BEAKER) (test jvwr=800) 2.13 K/ L 1.18-3.74 MONOCYTES ABSOLUTE COUNT (BEAKER) (test dqiv=415) 0.68 K/ L 0.24-0.36 EOSINOPHILS ABSOLUTE COUNT (BEAKER) (test nuul=262) 0.50 K/ L 0.04-0.36 BASOPHILS ABSOLUTE COUNT (BEAKER) (test wqhv=562) 0.11 K/ L 0.01-0.08 IMMATURE GRANULOCYTES-RELATIVE PERCENT (BEAKER) (test feqe=6585) 1 % 0-1 RETICULOCYTE [id number] 07:10:00* Test Item Value Reference Range Comments RETICULOCYTE COUNT PCT (BEAKER) (test npwz=654) 6.7 % 0.5-1.7 CBC W/PLT COUNT & AUTO [id number] 07:08:00* Test Item Value Reference Range Comments WHITE BLOOD CELL COUNT (BEAKER) (test ydlr=696) 6.9 K/ L 3.5-10.5 RED BLOOD CELL COUNT (BEAKER) (test ugus=208) 2.93 M/ L 3.93-5.22 HEMOGLOBIN (BEAKER) (test xksp=082) 6.4 GM/DL 11.2-15.7 HEMATOCRIT (BEAKER) (test becp=741) 20.6 % 34.1-44.9 MEAN CORPUSCULAR VOLUME (BEAKER) (test oyog=188) 70.3 fL 79.4-94.8 MEAN CORPUSCULAR HEMOGLOBIN (BEAKER) (test cvxi=985) 21.8 pg 25.6-32.2 MEAN CORPUSCULAR HEMOGLOBIN CONC (BEAKER) (test kjpj=738) 31.1 GM/DL 32.2-35.5 RED CELL DISTRIBUTION WIDTH (BEAKER) (test rrvz=315) 15.9 % 11.7-14.4 PLATELET COUNT (BEAKER) (test zbvi=002) 231 K/CU MM 150-450 MEAN PLATELET VOLUME (BEAKER) (test lebu=874) 10.6 fL 9.4-12.3 NUCLEATED RED BLOOD CELLS (BEAKER) (test hcor=783) 1 /100 WBC 0-0 NEUTROPHILS RELATIVE PERCENT (BEAKER) (test xbtl=096) 48 % LYMPHOCYTES RELATIVE PERCENT (BEAKER) (test biqs=352) 33 % MONOCYTES RELATIVE PERCENT (BEAKER) (test nmkm=882) 12 % EOSINOPHILS RELATIVE PERCENT (BEAKER) (test mzqx=324) 6 % BASOPHILS RELATIVE PERCENT (BEAKER) (test fycs=353) 1 % NEUTROPHILS ABSOLUTE COUNT (BEAKER) (test unqc=475) 3.30 K/ L 1.56-6.13 LYMPHOCYTES ABSOLUTE COUNT (BEAKER) (test rgru=106) 2.25 K/ L 1.18-3.74 MONOCYTES ABSOLUTE COUNT (BEAKER) (test zbny=384) 0.85 K/ L 0.24-0.36 EOSINOPHILS ABSOLUTE COUNT (BEAKER) (test hjqx=161) 0.38 K/ L 0.04-0.36 BASOPHILS ABSOLUTE COUNT (BEAKER) (test jpfu=542) 0.07 K/ L 0.01-0.08 IMMATURE GRANULOCYTES-RELATIVE PERCENT (BEAKER) (test aeee=2423) 0 % 0-1 BASIC METABOLIC [id number] 06:12:00* Test Item Value Reference Range Comments SODIUM (BEAKER) (test mdvz=475) 144 meq/L 136-145 POTASSIUM (BEAKER) (test lfsi=043) 3.4 meq/L 3.5-5.1 CHLORIDE (BEAKER) (test kfji=983) 109 meq/L 98-107 CO2 (BEAKER) (test edax=143) 29 meq/L 22-29 BLOOD UREA NITROGEN (BEAKER) (test jgkz=067) 6 mg/dL 7-21 CREATININE (BEAKER) (test rjek=664) 0.49 mg/dL 0.57-1.25 GLUCOSE RANDOM (BEAKER) (test xpri=164) 100 mg/dL 70-105 CALCIUM (BEAKER) (test hmug=304) 9.0 mg/dL 8.4-10.2 EGFR (BEAKER) (test fxql=4864) 191 mL/min/1.73 sq m ESTIMATED GFR IS NOT ACCURATE CREATININE CLEARANCE IN PREDICTING GLOMERULAR FILTRATION RATE. ESTIMATED GFR IS NOT APPLICABLE FOR DIALYSIS PATIENTS. CBC W/PLT COUNT & AUTO [id number] 06:31:00* Test Item Value Reference Range Comments WHITE BLOOD CELL COUNT (BEAKER) (test izxw=068) 8.0 K/ L 3.5-10.5 RED BLOOD CELL COUNT (BEAKER) (test tiri=947) 2.67 M/ L 3.93-5.22 HEMOGLOBIN (BEAKER) (test csnc=362) 6.0 GM/DL 11.2-15.7 HEMATOCRIT (BEAKER) (test wpjg=721) 19.3 % 34.1-44.9 MEAN CORPUSCULAR VOLUME (BEAKER) (test opip=671) 72.3 fL 79.4-94.8 MEAN CORPUSCULAR HEMOGLOBIN (BEAKER) (test qyhy=528) 22.5 pg 25.6-32.2 MEAN CORPUSCULAR HEMOGLOBIN CONC (BEAKER) (test xvmi=216) 31.1 GM/DL 32.2-35.5 RED CELL DISTRIBUTION WIDTH (BEAKER) (test klnn=525) 15.9 % 11.7-14.4 PLATELET COUNT (BEAKER) (test xfnt=722) 191 K/CU MM 150-450 MEAN PLATELET VOLUME (BEAKER) (test afzv=121) 10.5 fL 9.4-12.3 NUCLEATED RED BLOOD CELLS (BEAKER) (test rwju=076) 0 /100 WBC 0-0 NEUTROPHILS RELATIVE PERCENT (BEAKER) (test rwws=496) 54 % LYMPHOCYTES RELATIVE PERCENT (BEAKER) (test pqdy=381) 26 % MONOCYTES RELATIVE PERCENT (BEAKER) (test ocyp=541) 14 % EOSINOPHILS RELATIVE PERCENT (BEAKER) (test mibv=121) 5 % BASOPHILS RELATIVE PERCENT (BEAKER) (test zlrb=895) 1 % NEUTROPHILS ABSOLUTE COUNT (BEAKER) (test eivx=873) 4.33 K/ L 1.56-6.13 LYMPHOCYTES ABSOLUTE COUNT (BEAKER) (test gtvi=384) 2.05 K/ L 1.18-3.74 MONOCYTES ABSOLUTE COUNT (BEAKER) (test lmjs=398) 1.13 K/ L 0.24-0.36 EOSINOPHILS ABSOLUTE COUNT (BEAKER) (test nolx=782) 0.40 K/ L 0.04-0.36 BASOPHILS ABSOLUTE COUNT (BEAKER) (test gzje=896) 0.06 K/ L 0.01-0.08 IMMATURE GRANULOCYTES-RELATIVE PERCENT (BEAKER) (test syno=7240) 0 % 0-1 RETICULOCYTE [id number] 06:27:00* Test Item Value Reference Range Comments RETICULOCYTE COUNT PCT (BEAKER) (test nnwh=105) 6.7 % 0.5-1.7 CBC W/PLT COUNT & AUTO [id number] 07:16:00* Test Item Value Reference Range Comments WHITE BLOOD CELL COUNT (BEAKER) (test thkm=412) 8.9 K/ L 3.5-10.5 RED BLOOD CELL COUNT (BEAKER) (test loxn=185) 2.74 M/ L 3.93-5.22 HEMOGLOBIN (BEAKER) (test ugzu=971) 6.1 GM/DL 11.2-15.7 HEMATOCRIT (BEAKER) (test otce=048) 19.8 % 34.1-44.9 MEAN CORPUSCULAR VOLUME (BEAKER) (test rflz=608) 72.3 fL 79.4-94.8 MEAN CORPUSCULAR HEMOGLOBIN (BEAKER) (test muym=895) 22.3 pg 25.6-32.2 MEAN CORPUSCULAR HEMOGLOBIN CONC (BEAKER) (test lhfx=076) 30.8 GM/DL 32.2-35.5 RED CELL DISTRIBUTION WIDTH (BEAKER) (test jraf=248) 15.5 % 11.7-14.4 PLATELET COUNT (BEAKER) (test uhuf=851) 172 K/CU MM 150-450 MEAN PLATELET VOLUME (BEAKER) (test kplg=563) 10.6 fL 9.4-12.3 NUCLEATED RED BLOOD CELLS (BEAKER) (test iaqe=243) 0 /100 WBC 0-0 NEUTROPHILS RELATIVE PERCENT (BEAKER) (test veku=939) 55 % LYMPHOCYTES RELATIVE PERCENT (BEAKER) (test flay=976) 26 % MONOCYTES RELATIVE PERCENT (BEAKER) (test jzde=957) 14 % EOSINOPHILS RELATIVE PERCENT (BEAKER) (test yola=300) 4 % BASOPHILS RELATIVE PERCENT (BEAKER) (test cnbn=378) 1 % NEUTROPHILS ABSOLUTE COUNT (BEAKER) (test ybfn=760) 4.93 K/ L 1.56-6.13 LYMPHOCYTES ABSOLUTE COUNT (BEAKER) (test lfox=793) 2.30 K/ L 1.18-3.74 MONOCYTES ABSOLUTE COUNT (BEAKER) (test mkia=932) 1.21 K/ L 0.24-0.36 EOSINOPHILS ABSOLUTE COUNT (BEAKER) (test enho=411) 0.37 K/ L 0.04-0.36 BASOPHILS ABSOLUTE COUNT (BEAKER) (test pbje=320) 0.05 K/ L 0.01-0.08 IMMATURE GRANULOCYTES-RELATIVE PERCENT (BEAKER) (test lqrr=5618) 1 % 0-1 RETICULOCYTE [id number] 07:16:00* Test Item Value Reference Range Comments RETICULOCYTE COUNT PCT (BEAKER) (test fbzt=374) 6.2 % 0.5-1.7 RAD, CHEST, 1 VIEW, NON [id number] 17:17:00Reason for exam:->SOBShould this be performed at the bedside?->YesFINAL REPORT Comparison: 01/30/2019 TECHNIQUE: Single view of the chest FINDINGS: Left retrocardiac densities may represent atelectasis or pneumonitis. Otherwise lungs are clear. Cardiac silhouette is within normal limits. Soft tissues are unremarkable. No acute skeletal abnormality. Signed: Yung Pacheco MDReport Verified Date/Time: 02/16/2019 17:17:31 Reading Location: [facility] C0X Ortho Consult Reading Room C METABOLIC [id number] 10:01:00* Test Item Value Reference Range Comments SODIUM (BEAKER) (test fztw=682) 144 meq/L 136-145 POTASSIUM (BEAKER) (test ifpr=171) 3.6 meq/L 3.5-5.1 CHLORIDE (BEAKER) (test meoy=680) 113 meq/L 98-107 CO2 (BEAKER) (test hkmv=524) 26 meq/L 22-29 BLOOD UREA NITROGEN (BEAKER) (test tnap=162) 6 mg/dL 7-21 CREATININE (BEAKER) (test ngfs=564) 0.50 mg/dL 0.57-1.25 GLUCOSE RANDOM (BEAKER) (test gray=058) 85 mg/dL 70-105 CALCIUM (BEAKER) (test xitt=008) 8.2 mg/dL 8.4-10.2 EGFR (BEAKER) (test cmew=4549) 187 mL/min/1.73 sq m ESTIMATED GFR IS NOT ACCURATE CREATININE CLEARANCE IN PREDICTING GLOMERULAR FILTRATION RATE. ESTIMATED GFR IS NOT APPLICABLE FOR DIALYSIS PATIENTS. RETICULOCYTE [id number] 09:42:00* Test Item Value Reference Range Comments RETICULOCYTE COUNT PCT (BEAKER) (test bjar=567) 6.2 % 0.5-1.7 CBC W/PLT COUNT & AUTO [id number] 09:42:00* Test Item Value Reference Range Comments WHITE BLOOD CELL COUNT (BEAKER) (test agqs=322) 11.3 K/ L 3.5-10.5 RED BLOOD CELL COUNT (BEAKER) (test nbsh=327) 2.61 M/ L 3.93-5.22 HEMOGLOBIN (BEAKER) (test sfit=757) 6.1 GM/DL 11.2-15.7 HEMATOCRIT (BEAKER) (test rcor=627) 18.7 % 34.1-44.9 MEAN CORPUSCULAR VOLUME (BEAKER) (test prnj=021) 71.6 fL 79.4-94.8 MEAN CORPUSCULAR HEMOGLOBIN (BEAKER) (test rjtv=784) 23.4 pg 25.6-32.2 MEAN CORPUSCULAR HEMOGLOBIN CONC (BEAKER) (test aclu=308) 32.6 GM/DL 32.2-35.5 RED CELL DISTRIBUTION WIDTH (BEAKER) (test gcnw=618) 15.8 % 11.7-14.4 PLATELET COUNT (BEAKER) (test utfd=977) 162 K/CU MM 150-450 MEAN PLATELET VOLUME (BEAKER) (test dblb=378) 9.7 fL 9.4-12.3 NUCLEATED RED BLOOD CELLS (BEAKER) (test pocv=979) 2 /100 WBC 0-0 NEUTROPHILS RELATIVE PERCENT (BEAKER) (test meno=847) 66 % LYMPHOCYTES RELATIVE PERCENT (BEAKER) (test oclm=545) 16 % MONOCYTES RELATIVE PERCENT (BEAKER) (test gpcc=428) 13 % EOSINOPHILS RELATIVE PERCENT (BEAKER) (test mrmg=274) 3 % BASOPHILS RELATIVE PERCENT (BEAKER) (test azjs=850) 0 % NEUTROPHILS ABSOLUTE COUNT (BEAKER) (test avsa=605) 7.45 K/ L 1.56-6.13 LYMPHOCYTES ABSOLUTE COUNT (BEAKER) (test nqei=185) 1.83 K/ L 1.18-3.74 MONOCYTES ABSOLUTE COUNT (BEAKER) (test gvjg=301) 1.49 K/ L 0.24-0.36 EOSINOPHILS ABSOLUTE COUNT (BEAKER) (test vqjj=070) 0.36 K/ L 0.04-0.36 BASOPHILS ABSOLUTE COUNT (BEAKER) (test wxvb=410) 0.05 K/ L 0.01-0.08 IMMATURE GRANULOCYTES-RELATIVE PERCENT (BEAKER) (test wdjq=9884) 1 % 0-1 BASIC METABOLIC [id number] 16:32:00* Test Item Value Reference Range Comments SODIUM (BEAKER) (test cdjo=736) 145 meq/L 136-145 POTASSIUM (BEAKER) (test xgho=328) 3.8 meq/L 3.5-5.1 Specimen slightly hemolyzed CHLORIDE (BEAKER) (test orql=590) 111 meq/L 98-107 CO2 (BEAKER) (test yvti=591) 25 meq/L 22-29 BLOOD UREA NITROGEN (BEAKER) (test cskf=605) 4 mg/dL 7-21 CREATININE (BEAKER) (test pqhg=241) 0.56 mg/dL 0.57-1.25 Specimen slightly hemolyzed GLUCOSE RANDOM (BEAKER) (test hriv=479) 98 mg/dL 70-105 CALCIUM (BEAKER) (test httq=085) 9.5 mg/dL 8.4-10.2 EGFR (BEAKER) (test juag=9383) 164 mL/min/1.73 sq m ESTIMATED GFR IS NOT ACCURATE CREATININE CLEARANCE IN PREDICTING GLOMERULAR FILTRATION RATE. ESTIMATED GFR IS NOT APPLICABLE FOR DIALYSIS PATIENTS. Specimen slightly ictericCBC W/PLT COUNT & AUTO [id number] 16:19:00 * Test Item Value Reference Range Comments WHITE BLOOD CELL COUNT (BEAKER) (test kqzg=731) 14.7 K/ L 3.5-10.5 RED BLOOD CELL COUNT (BEAKER) (test sfai=146) 3.46 M/ L 3.93-5.22 HEMOGLOBIN (BEAKER) (test dgqb=739) 7.9 GM/DL 11.2-15.7 HEMATOCRIT (BEAKER) (test pvej=245) 24.6 % 34.1-44.9 MEAN CORPUSCULAR VOLUME (BEAKER) (test umsf=334) 71.1 fL 79.4-94.8 MEAN CORPUSCULAR HEMOGLOBIN (BEAKER) (test dufy=802) 22.8 pg 25.6-32.2 MEAN CORPUSCULAR HEMOGLOBIN CONC (BEAKER) (test nyrt=287) 32.1 GM/DL 32.2-35.5 RED CELL DISTRIBUTION WIDTH (BEAKER) (test nbyl=897) 17.2 % 11.7-14.4 PLATELET COUNT (BEAKER) (test yggg=410) 220 K/CU MM 150-450 MEAN PLATELET VOLUME (BEAKER) (test zpna=693) 10.0 fL 9.4-12.3 NUCLEATED RED BLOOD CELLS (BEAKER) (test wxcj=166) 1 /100 WBC 0-0 NEUTROPHILS RELATIVE PERCENT (BEAKER) (test ktnu=344) 64 % LYMPHOCYTES RELATIVE PERCENT (BEAKER) (test jinn=043) 20 % MONOCYTES RELATIVE PERCENT (BEAKER) (test mmdo=838) 10 % EOSINOPHILS RELATIVE PERCENT (BEAKER) (test zzxf=755) 2 % BASOPHILS RELATIVE PERCENT (BEAKER) (test kvym=852) 1 % NEUTROPHILS ABSOLUTE COUNT (BEAKER) (test wwgg=921) 9.35 K/ L 1.56-6.13 LYMPHOCYTES ABSOLUTE COUNT (BEAKER) (test ruqy=579) 2.87 K/ L 1.18-3.74 MONOCYTES ABSOLUTE COUNT (BEAKER) (test sugh=766) 1.49 K/ L 0.24-0.36 EOSINOPHILS ABSOLUTE COUNT (BEAKER) (test mmbk=589) 0.23 K/ L 0.04-0.36 BASOPHILS ABSOLUTE COUNT (BEAKER) (test cpnd=066) 0.20 K/ L 0.01-0.08 IMMATURE GRANULOCYTES-RELATIVE PERCENT (BEAKER) (test xopb=3692) 4 % 0-1 RETICULOCYTE [id number] 16:19:00* Test Item Value Reference Range Comments RETICULOCYTE COUNT PCT (BEAKER) (test dapu=158) 7.3 % 0.5-1.7 BLOOD [id number] 08:00:00* Test Item Value Reference Range Comments CULTURE (BEAKER) (test fvje=3491) No growth in 5 days BLOOD [id number] 08:00:00* Test Item Value Reference Range Comments CULTURE (BEAKER) (test czjv=7590) No growth in 5 days LACTATE DEHYDROGENASE (LDH)2019-02-01 06:21:00* Test Item Value Reference Range Comments LACTATE DEHYDROGENASE (BEAKER) (test mudm=356) 296 U/L 125-220 BASIC METABOLIC [id number] 06:21:00* Test Item Value Reference Range Comments SODIUM (BEAKER) (test pakj=154) 140 meq/L 136-145 POTASSIUM (BEAKER) (test pjut=841) 4.1 meq/L 3.5-5.1 CHLORIDE (BEAKER) (test hazd=731) 108 meq/L 98-107 CO2 (BEAKER) (test mtct=796) 24 meq/L 22-29 BLOOD UREA NITROGEN (BEAKER) (test eodv=545) 3 mg/dL 7-21 CREATININE (BEAKER) (test ehus=497) 0.55 mg/dL 0.57-1.25 GLUCOSE RANDOM (BEAKER) (test lhmx=967) 79 mg/dL 70-105 CALCIUM (BEAKER) (test jjxf=743) 9.2 mg/dL 8.4-10.2 EGFR (BEAKER) (test affz=0293) 168 mL/min/1.73 sq m ESTIMATED GFR IS NOT ACCURATE CREATININE CLEARANCE IN PREDICTING GLOMERULAR FILTRATION RATE. ESTIMATED GFR IS NOT APPLICABLE FOR DIALYSIS PATIENTS. HEPATIC FUNCTION [id number] 06:21:00* Test Item Value Reference Range Comments TOTAL PROTEIN (BEAKER) (test smuz=055) 6.1 gm/dL 6.0-8.3 ALBUMIN (BEAKER) (test asqu=0237) 3.9 g/dL 3.5-5.0 BILIRUBIN TOTAL (BEAKER) (test uapr=229) 1.5 mg/dL 0.2-1.2 BILIRUBIN DIRECT (BEAKER) (test fawa=704) 0.6 mg/dL 0.1-0.5 ALKALINE PHOSPHATASE (BEAKER) (test ysmo=602) 75 U/L 40-150 AST (SGOT) (BEAKER) (test ulyj=866) 22 U/L 5-34 ALT (SGPT) (BEAKER) (test grhd=493) 9 U/L 6-55 CBC W/PLT COUNT & AUTO [id number] 06:06:00* Test Item Value Reference Range Comments WHITE BLOOD CELL COUNT (BEAKER) (test buci=646) 7.3 K/ L 3.5-10.5 RED BLOOD CELL COUNT (BEAKER) (test wrnu=826) 3.28 M/ L 3.93-5.22 HEMOGLOBIN (BEAKER) (test noqw=929) 7.3 GM/DL 11.2-15.7 HEMATOCRIT (BEAKER) (test digi=264) 23.9 % 34.1-44.9 MEAN CORPUSCULAR VOLUME (BEAKER) (test jvgr=749) 72.9 fL 79.4-94.8 MEAN CORPUSCULAR HEMOGLOBIN (BEAKER) (test zzao=530) 22.3 pg 25.6-32.2 MEAN CORPUSCULAR HEMOGLOBIN CONC (BEAKER) (test emvy=734) 30.5 GM/DL 32.2-35.5 RED CELL DISTRIBUTION WIDTH (BEAKER) (test ynaa=611) 16.7 % 11.7-14.4 PLATELET COUNT (BEAKER) (test apld=871) 297 K/CU MM 150-450 MEAN PLATELET VOLUME (BEAKER) (test vflj=435) 9.9 fL 9.4-12.3 NUCLEATED RED BLOOD CELLS (BEAKER) (test xpns=843) 2 /100 WBC 0-0 NEUTROPHILS RELATIVE PERCENT (BEAKER) (test cesj=165) 56 % LYMPHOCYTES RELATIVE PERCENT (BEAKER) (test gaoi=344) 29 % MONOCYTES RELATIVE PERCENT (BEAKER) (test rczx=339) 10 % EOSINOPHILS RELATIVE PERCENT (BEAKER) (test wgvp=104) 3 % BASOPHILS RELATIVE PERCENT (BEAKER) (test rncg=303) 1 % NEUTROPHILS ABSOLUTE COUNT (BEAKER) (test cwfn=950) 4.09 K/ L 1.56-6.13 LYMPHOCYTES ABSOLUTE COUNT (BEAKER) (test ztcp=788) 2.12 K/ L 1.18-3.74 MONOCYTES ABSOLUTE COUNT (BEAKER) (test sdef=864) 0.76 K/ L 0.24-0.36 EOSINOPHILS ABSOLUTE COUNT (BEAKER) (test rrmg=236) 0.20 K/ L 0.04-0.36 BASOPHILS ABSOLUTE COUNT (BEAKER) (test fgzm=188) 0.08 K/ L 0.01-0.08 IMMATURE GRANULOCYTES-RELATIVE PERCENT (BEAKER) (test ycww=6756) 0 % 0-1 CT, CHEST, WITHOUT [id number] 08:16:00Reason for exam:->CHEST PAINIs the patient ?->NoWhat is the patient's sedation requirement?->No Sedation FINAL REPORT TECHNIQUE: CT of the chest WITHOUT intraveno us contrast. Dose modulation, iterative reconstruction, and/or weight-based adju stment of the mA/kV was utilized to reduce the radiation dose to as low as reaso nably achievable. INDICATION: 23-year-old woman with chest pain. COMPARISON: [facility] radiograph 01/30/2019, chest CT 12/06/2018. FINDINGS: [...] Verified Date/Time: 01/31/2019 0 8:16:49 Reading Location: [address] Transitional Reading Room Electronical ly signed by: MAXIMO COOPER MD on 01/31/2019 08:16 AM BASIC METABOLIC [id number] 06:58:00* Test Item Value Reference Range Comments SODIUM (BEAKER) (test svgk=825) 140 meq/L 136-145 POTASSIUM (BEAKER) (test iqvz=309) 4.6 meq/L 3.5-5.1 Specimen slightly hemolyzed CHLORIDE (BEAKER) (test qmvl=705) 111 meq/L 98-107 CO2 (BEAKER) (test idac=440) 23 meq/L 22-29 BLOOD UREA NITROGEN (BEAKER) (test fvoo=121) 4 mg/dL 7-21 CREATININE (BEAKER) (test hrbc=388) 0.53 mg/dL 0.57-1.25 Specimen slightly hemolyzed GLUCOSE RANDOM (BEAKER) (test pzox=534) 83 mg/dL 70-105 CALCIUM (BEAKER) (test qboh=797) 8.5 mg/dL 8.4-10.2 EGFR (BEAKER) (test ceax=9393) 175 mL/min/1.73 sq m ESTIMATED GFR IS NOT ACCURATE CREATININE CLEARANCE IN PREDICTING GLOMERULAR FILTRATION RATE. ESTIMATED GFR IS NOT APPLICABLE FOR DIALYSIS PATIENTS. HEPATIC FUNCTION [id number] 06:58:00* Test Item Value Reference Range Comments TOTAL PROTEIN (BEAKER) (test qsfp=266) 6.0 gm/dL 6.0-8.3 Specimen slightly hemolyzed ALBUMIN (BEAKER) (test pynj=7087) 3.7 g/dL 3.5-5.0 Specimen slightly hemolyzed BILIRUBIN TOTAL (BEAKER) (test apyf=343) 1.0 mg/dL 0.2-1.2 Specimen slightly hemolyzed BILIRUBIN DIRECT (BEAKER) (test fada=011) 0.4 mg/dL 0.1-0.5 Specimen slightly hemolyzed ALKALINE PHOSPHATASE (BEAKER) (test llww=185) 78 U/L 40-150 AST (SGOT) (BEAKER) (test gyay=575) 28 U/L 5-34 Specimen slightly hemolyzed ALT (SGPT) (BEAKER) (test uben=586) 11 U/L 6-55 Specimen slightly hemolyzed LACTATE DEHYDROGENASE (LDH)2019-01-31 06:58:00* Test Item Value Reference Range Comments LACTATE DEHYDROGENASE (BEAKER) (test pjyl=245) 364 U/L 125-220 Specimen slightly hemolyzed CBC W/PLT COUNT & AUTO [id number] 05:29:00* Test Item Value Reference Range Comments WHITE BLOOD CELL COUNT (BEAKER) (test cnmq=386) 8.0 K/ L 3.5-10.5 RED BLOOD CELL COUNT (BEAKER) (test damc=363) 3.04 M/ L 3.93-5.22 HEMOGLOBIN (BEAKER) (test hfyk=191) 7.1 GM/DL 11.2-15.7 HEMATOCRIT (BEAKER) (test bvbr=733) 22.4 % 34.1-44.9 MEAN CORPUSCULAR VOLUME (BEAKER) (test jgkv=858) 73.7 fL 79.4-94.8 MEAN CORPUSCULAR HEMOGLOBIN (BEAKER) (test jlpm=011) 23.4 pg 25.6-32.2 MEAN CORPUSCULAR HEMOGLOBIN CONC (BEAKER) (test lcsa=402) 31.7 GM/DL 32.2-35.5 RED CELL DISTRIBUTION WIDTH (BEAKER) (test blno=791) 17.5 % 11.7-14.4 PLATELET COUNT (BEAKER) (test etti=848) 304 K/CU MM 150-450 MEAN PLATELET VOLUME (BEAKER) (test gfeo=148) 10.0 fL 9.4-12.3 NUCLEATED RED BLOOD CELLS (BEAKER) (test vhvk=087) 2 /100 WBC 0-0 NEUTROPHILS RELATIVE PERCENT (BEAKER) (test yfam=489) 55 % LYMPHOCYTES RELATIVE PERCENT (BEAKER) (test lima=733) 30 % MONOCYTES RELATIVE PERCENT (BEAKER) (test jyyb=084) 11 % EOSINOPHILS RELATIVE PERCENT (BEAKER) (test vjpk=346) 3 % BASOPHILS RELATIVE PERCENT (BEAKER) (test rtny=492) 1 % NEUTROPHILS ABSOLUTE COUNT (BEAKER) (test ifrb=754) 4.41 K/ L 1.56-6.13 LYMPHOCYTES ABSOLUTE COUNT (BEAKER) (test wevv=347) 2.42 K/ L 1.18-3.74 MONOCYTES ABSOLUTE COUNT (BEAKER) (test osag=010) 0.85 K/ L 0.24-0.36 EOSINOPHILS ABSOLUTE COUNT (BEAKER) (test lvzg=591) 0.22 K/ L 0.04-0.36 BASOPHILS ABSOLUTE COUNT (BEAKER) (test jrxw=332) 0.07 K/ L 0.01-0.08 IMMATURE GRANULOCYTES-RELATIVE PERCENT (BEAKER) (test udsw=1085) 0 % 0-1 SCREEN, [id number] 01:17:00* Test Item Value Reference Range Comments TEST URINE (BEAKER) (test uitm=002) Negative URINALYSIS W/ REFLEX URINE [id number] 01:17:00* Test Item Value Reference Range Comments COLOR (BEAKER) (test geza=925) Yellow CLARITY (BEAKER) (test qiii=083) Hazy SPECIFIC GRAVITY UA (BEAKER) (test shqj=996) 1.012 1.001-1.035 PH UA (BEAKER) (test jldg=771) 7.0 5.0-8.0 PROTEIN UA (BEAKER) (test wwvl=021) Negative Negative GLUCOSE UA (BEAKER) (test eydu=916) Negative Negative KETONES UA (BEAKER) (test papl=973) Negative Negative BILIRUBIN UA (BEAKER) (test hxsw=867) Negative Negative BLOOD UA (BEAKER) (test vdxw=698) Negative Negative NITRITE UA (BEAKER) (test mfeh=032) Negative Negative LEUKOCYTE ESTERASE UA (BEAKER) (test exgb=164) Negative Negative UROBILINOGEN UA (BEAKER) (test chex=424) 2.0 mg/dL 0.2-1.0 RBC UA (BEAKER) (test buxs=632) < /HPF WBC UA (BEAKER) (test cmwo=248) 1 /HPF BACTERIA (BEAKER) (test whnq=900) Few MUCUS (BEAKER) (test oudo=9310) Many SQUAMOUS EPITHELIAL (BEAKER) (test mlzi=834) 7 /HPF SOURCE(BEAKER) (test ipev=7049) TROPONIN [id number] 22:49:00* Test Item Value Reference Range Comments TROPONIN I (BEAKER) (test wokf=031) < ng/mL 0.00-0.03 Troponin I (TnI) levels must be interpreted in the context of the presenting sym ptoms and the clinical findings. Elevated TnI levels indicate myocardial damage, but are not specific for ischemic heart disease. Elevated TnI levels are seen i n patients with other cardiac conditions (including myocarditis and congestive h eart failure), and slight TnI elevations occur in patients with other conditions , including sepsis, renal failure, acidosis, acute neurological disease, and per sistent tachyarrhythmia.[id number] 22:41:00* Test Item Value Reference Range Comments MAGNESIUM (BEAKER) (test jywy=862) 2.5 mg/dL 1.6-2.6 BASIC METABOLIC [id number] 22:41:00* Test Item Value Reference Range Comments SODIUM (BEAKER) (test zbma=948) 143 meq/L 136-145 POTASSIUM (BEAKER) (test tzsn=899) 4.1 meq/L 3.5-5.1 CHLORIDE (BEAKER) (test ruew=504) 111 meq/L 98-107 CO2 (BEAKER) (test caza=532) 25 meq/L 22-29 BLOOD UREA NITROGEN (BEAKER) (test neit=088) 5 mg/dL 7-21 CREATININE (BEAKER) (test xqbe=916) 0.54 mg/dL 0.57-1.25 GLUCOSE RANDOM (BEAKER) (test biye=968) 78 mg/dL 70-105 CALCIUM (BEAKER) (test uysl=844) 9.4 mg/dL 8.4-10.2 EGFR (BEAKER) (test wzlo=7618) 171 mL/min/1.73 sq m ESTIMATED GFR IS NOT ACCURATE CREATININE CLEARANCE IN PREDICTING GLOMERULAR FILTRATION RATE. ESTIMATED GFR IS NOT APPLICABLE FOR DIALYSIS PATIENTS. PT/[id number] 22:40:00* Test Item Value Reference Range Comments PROTIME (BEAKER) (test rcpl=066) 14.1 seconds 11.7-14.7 INR (BEAKER) (test oawc=229) 1.1 <=5.9 PARTIAL THROMBOPLASTIN TIME (BEAKER) (test arbg=043) 23.2 seconds 22.5-36.0 RECOMMENDED COUMADIN/WARFARIN INR THERAPY RANGESSTANDARD DOSE: 2.0 - 3.0 Inclu emma: PROPHYLAXIS for venous thrombosis, systemic embolization; TREATMENT for kim ous thrombosis and/or pulmonary embolus.HIGH RISK: Target INR is 2.5-3.5 for pat ients with mechanical heart valves.RETICULOCYTE [id number] 22:31:00* Test Item Value Reference Range Comments RETICULOCYTE COUNT PCT (BEAKER) (test yqcq=383) 8.7 % 0.5-1.7 CBC W/PLT COUNT & AUTO [id number] 22:31:00* Test Item Value Reference Range Comments WHITE BLOOD CELL COUNT (BEAKER) (test evgp=668) 10.7 K/ L 3.5-10.5 RED BLOOD CELL COUNT (BEAKER) (test knca=705) 3.33 M/ L 3.93-5.22 HEMOGLOBIN (BEAKER) (test kzxg=420) 7.7 GM/DL 11.2-15.7 HEMATOCRIT (BEAKER) (test jnfn=027) 24.6 % 34.1-44.9 MEAN CORPUSCULAR VOLUME (BEAKER) (test dqyq=349) 73.9 fL 79.4-94.8 MEAN CORPUSCULAR HEMOGLOBIN (BEAKER) (test thwi=596) 23.1 pg 25.6-32.2 MEAN CORPUSCULAR HEMOGLOBIN CONC (BEAKER) (test dsnt=233) 31.3 GM/DL 32.2-35.5 RED CELL DISTRIBUTION WIDTH (BEAKER) (test jcpm=212) 17.9 % 11.7-14.4 PLATELET COUNT (BEAKER) (test brab=285) 329 K/CU MM 150-450 MEAN PLATELET VOLUME (BEAKER) (test jnvl=690) 9.9 fL 9.4-12.3 NUCLEATED RED BLOOD CELLS (BEAKER) (test serv=008) 2 /100 WBC 0-0 NEUTROPHILS RELATIVE PERCENT (BEAKER) (test tjml=274) 56 % LYMPHOCYTES RELATIVE PERCENT (BEAKER) (test pktu=004) 30 % MONOCYTES RELATIVE PERCENT (BEAKER) (test uktm=037) 11 % EOSINOPHILS RELATIVE PERCENT (BEAKER) (test zuvy=974) 2 % BASOPHILS RELATIVE PERCENT (BEAKER) (test qvgb=886) 1 % NEUTROPHILS ABSOLUTE COUNT (BEAKER) (test dhbb=072) 6.01 K/ L 1.56-6.13 LYMPHOCYTES ABSOLUTE COUNT (BEAKER) (test mkwf=057) 3.24 K/ L 1.18-3.74 MONOCYTES ABSOLUTE COUNT (BEAKER) (test ziwo=309) 1.13 K/ L 0.24-0.36 EOSINOPHILS ABSOLUTE COUNT (BEAKER) (test gcbi=441) 0.21 K/ L 0.04-0.36 BASOPHILS ABSOLUTE COUNT (BEAKER) (test jatb=554) 0.09 K/ L 0.01-0.08 IMMATURE GRANULOCYTES-RELATIVE PERCENT (BEAKER) (test rkgc=0565) 1 % 0-1 RAD, CHEST, 1 VIEW, NON [id number] 22:15:00Reason for exam:->CHEST PAINIs the patient ?->NoShould [...] r lung concerning for infection Signed: Macey Nguyễnepshaquille Verified Date/T jayson: 01/30/2019 22:15:58 Reading Location: [facility] [id number] Neuro Reading Room Nedra ctronically signed by: MACEY NGUYỄN MD on 01/30/2019 10:15 PM BASIC METABOLIC [id number] 05:55:00* Test Item Value Reference Range Comments SODIUM (BEAKER) (test ftmm=690) 139 meq/L 136-145 POTASSIUM (BEAKER) (test kcii=564) 3.6 meq/L 3.5-5.1 CHLORIDE (BEAKER) (test bbro=803) 105 meq/L 98-107 CO2 (BEAKER) (test kbib=520) 26 meq/L 22-29 BLOOD UREA NITROGEN (BEAKER) (test aqcw=407) 3 mg/dL 7-21 CREATININE (BEAKER) (test nwpo=101) 0.57 mg/dL 0.57-1.25 GLUCOSE RANDOM (BEAKER) (test rciy=919) 92 mg/dL 70-105 CALCIUM (BEAKER) (test fwts=195) 9.5 mg/dL 8.4-10.2 EGFR (BEAKER) (test ozme=6027) 161 mL/min/1.73 sq m ESTIMATED GFR IS NOT ACCURATE CREATININE CLEARANCE IN PREDICTING GLOMERULAR FILTRATION RATE. ESTIMATED GFR IS NOT APPLICABLE FOR DIALYSIS PATIENTS. CBC W/PLT COUNT & AUTO [id number] 04:57:00* Test Item Value Reference Range Comments WHITE BLOOD CELL COUNT (BEAKER) (test hqfs=463) 11.3 K/ L 3.5-10.5 RED BLOOD CELL COUNT (BEAKER) (test hgge=263) 3.61 M/ L 3.93-5.22 HEMOGLOBIN (BEAKER) (test sajc=507) 8.4 GM/DL 11.2-15.7 HEMATOCRIT (BEAKER) (test dmcq=246) 27.0 % 34.1-44.9 MEAN CORPUSCULAR VOLUME (BEAKER) (test mmaz=344) 74.8 fL 79.4-94.8 MEAN CORPUSCULAR HEMOGLOBIN (BEAKER) (test ejns=155) 23.3 pg 25.6-32.2 MEAN CORPUSCULAR HEMOGLOBIN CONC (BEAKER) (test ajhm=825) 31.1 GM/DL 32.2-35.5 RED CELL DISTRIBUTION WIDTH (BEAKER) (test dyet=415) 19.3 % 11.7-14.4 PLATELET COUNT (BEAKER) (test ssud=092) 308 K/CU MM 150-450 MEAN PLATELET VOLUME (BEAKER) (test encc=395) 10.1 fL 9.4-12.3 NUCLEATED RED BLOOD CELLS (BEAKER) (test sgwr=389) 2 /100 WBC 0-0 NEUTROPHILS RELATIVE PERCENT (BEAKER) (test wgdx=006) 67 % LYMPHOCYTES RELATIVE PERCENT (BEAKER) (test ohye=607) 19 % MONOCYTES RELATIVE PERCENT (BEAKER) (test bthv=557) 11 % EOSINOPHILS RELATIVE PERCENT (BEAKER) (test obea=774) 2 % BASOPHILS RELATIVE PERCENT (BEAKER) (test caxa=133) 1 % NEUTROPHILS ABSOLUTE COUNT (BEAKER) (test tsbg=897) 7.59 K/ L 1.56-6.13 LYMPHOCYTES ABSOLUTE COUNT (BEAKER) (test jnzv=168) 2.10 K/ L 1.18-3.74 MONOCYTES ABSOLUTE COUNT (BEAKER) (test fhqp=737) 1.22 K/ L 0.24-0.36 EOSINOPHILS ABSOLUTE COUNT (BEAKER) (test twfp=201) 0.19 K/ L 0.04-0.36 BASOPHILS ABSOLUTE COUNT (BEAKER) (test hvuv=782) 0.10 K/ L 0.01-0.08 IMMATURE GRANULOCYTES-RELATIVE PERCENT (BEAKER) (test ryin=0885) 1 % 0-1 BASIC METABOLIC [id number] 13:20:00* Test Item Value Reference Range Comments SODIUM (BEAKER) (test spqg=929) 140 meq/L 136-145 POTASSIUM (BEAKER) (test ayqu=991) 4.4 meq/L 3.5-5.1 CHLORIDE (BEAKER) (test qdhh=136) 109 meq/L 98-107 CO2 (BEAKER) (test brce=404) 23 meq/L 22-29 BLOOD UREA NITROGEN (BEAKER) (test eqhw=514) 5 mg/dL 7-21 CREATININE (BEAKER) (test dzab=684) 0.55 mg/dL 0.57-1.25 GLUCOSE RANDOM (BEAKER) (test ekaf=733) 90 mg/dL 70-105 CALCIUM (BEAKER) (test vgkr=095) 9.0 mg/dL 8.4-10.2 EGFR (BEAKER) (test mlxf=8593) 168 mL/min/1.73 sq m ESTIMATED GFR IS NOT ACCURATE CREATININE CLEARANCE IN PREDICTING GLOMERULAR FILTRATION RATE. ESTIMATED GFR IS NOT APPLICABLE FOR DIALYSIS PATIENTS. URINALYSIS W/ [id number] 11:58:00* Test Item Value Reference Range Comments COLOR (BEAKER) (test rgow=579) Colorless CLARITY (BEAKER) (test pmly=076) Clear SPECIFIC GRAVITY UA (BEAKER) (test pecy=013) 1.002 1.001-1.035 PH UA (BEAKER) (test omev=498) 7.0 5.0-8.0 PROTEIN UA (BEAKER) (test wedn=443) Negative Negative GLUCOSE UA (BEAKER) (test kxal=734) Negative Negative KETONES UA (BEAKER) (test qntc=748) Negative Negative BILIRUBIN UA (BEAKER) (test qlah=462) Negative Negative BLOOD UA (BEAKER) (test noxj=079) Negative Negative NITRITE UA (BEAKER) (test jgyo=611) Negative Negative LEUKOCYTE ESTERASE UA (BEAKER) (test onfn=241) Negative Negative UROBILINOGEN UA (BEAKER) (test qdho=352) 0.2 mg/dL 0.2-1.0 RBC UA (BEAKER) (test ybdy=938) 1 /HPF WBC UA (BEAKER) (test ozyr=597) 0 /HPF BACTERIA (BEAKER) (test urwa=273) Rare SQUAMOUS EPITHELIAL (BEAKER) (test yfnw=289) 4 /HPF SOURCE(BEAKER) (test xnpn=0895) Urine, Voided SCREEN, [id number] 11:32:00* Test Item Value Reference Range Comments TEST URINE (BEAKER) (test ejhv=963) Negative RETICULOCYTE [id number] 11:31:00* Test Item Value Reference Range Comments RETICULOCYTE COUNT PCT (BEAKER) (test itdo=755) 7.0 % 0.5-1.7 CBC W/PLT COUNT & AUTO [id number] 11:31:00* Test Item Value Reference Range Comments WHITE BLOOD CELL COUNT (BEAKER) (test njuh=999) 12.4 K/ L 3.5-10.5 RED BLOOD CELL COUNT (BEAKER) (test zets=059) 3.58 M/ L 3.93-5.22 HEMOGLOBIN (BEAKER) (test lpqo=248) 8.5 GM/DL 11.2-15.7 HEMATOCRIT (BEAKER) (test tvuw=860) 26.5 % 34.1-44.9 MEAN CORPUSCULAR VOLUME (BEAKER) (test kvsy=323) 74.0 fL 79.4-94.8 MEAN CORPUSCULAR HEMOGLOBIN (BEAKER) (test pkiq=679) 23.7 pg 25.6-32.2 MEAN CORPUSCULAR HEMOGLOBIN CONC (BEAKER) (test kxak=895) 32.1 GM/DL 32.2-35.5 RED CELL DISTRIBUTION WIDTH (BEAKER) (test vjlv=935) 19.6 % 11.7-14.4 PLATELET COUNT (BEAKER) (test bveg=885) 296 K/CU MM 150-450 MEAN PLATELET VOLUME (BEAKER) (test jyrb=010) 9.6 fL 9.4-12.3 NUCLEATED RED BLOOD CELLS (BEAKER) (test jpft=232) 2 /100 WBC 0-0 NEUTROPHILS RELATIVE PERCENT (BEAKER) (test lwzg=168) 58 % LYMPHOCYTES RELATIVE PERCENT (BEAKER) (test xzfx=080) 26 % MONOCYTES RELATIVE PERCENT (BEAKER) (test cdib=413) 10 % EOSINOPHILS RELATIVE PERCENT (BEAKER) (test moqh=214) 2 % BASOPHILS RELATIVE PERCENT (BEAKER) (test clcf=812) 1 % NEUTROPHILS ABSOLUTE COUNT (BEAKER) (test bvuc=077) 7.20 K/ L 1.56-6.13 LYMPHOCYTES ABSOLUTE COUNT (BEAKER) (test wlmc=127) 3.24 K/ L 1.18-3.74 MONOCYTES ABSOLUTE COUNT (BEAKER) (test sxan=073) 1.19 K/ L 0.24-0.36 EOSINOPHILS ABSOLUTE COUNT (BEAKER) (test sejt=265) 0.26 K/ L 0.04-0.36 BASOPHILS ABSOLUTE COUNT (BEAKER) (test lvnb=383) 0.16 K/ L 0.01-0.08 IMMATURE GRANULOCYTES-RELATIVE PERCENT (BEAKER) (test ecsz=0188) 3 % 0-1 RESPIRATORY PANEL [id number] 10:37:00* Test Item Value Reference Range Comments HUMAN METAPNEUMOVIRUS (BEAKER) (test xzrm=8082) Not detected Not detected, Equivocal RHINOVIRUS (BEAKER) (test drnc=7669) Not detected Not detected, Equivocal INFLUENZA A (BEAKER) (test mgtz=7034) Not detected Not detected, Equivocal INFLUENZA A (NO SUBTYPE) (test nqbo=5240) Not detected, Equivocal INFLUENZA A SUBTYPE H1 (BEAKER) (test wagw=8175) Not detected, Equivocal INFLUENZA A SUBTYPE H3 (BEAKER) (test ndjx=5459) Not detected, Equivocal INFLUENZA A SUBTYPE H1-2009 (BEAKER) (test mull=9149) Not detected, Equivocal INFLUENZA B (BEAKER) (test hekq=2112) Not detected Not detected, Equivocal RESPIRATORY SYNCYTIAL VIRUS (BEAKER) (test geks=3460) Not detected Not detected, Equivocal PARAINFLUENZA VIRUS 1 (BEAKER) (test fdzg=3204) Not detected Not detected, Equivocal PARAINFLUENZA VIRUS 2 (BEAKER) (test yihx=0306) Not detected Not detected, Equivocal PARAINFLUENZA VIRUS 3 (BEAKER) (test oroo=9650) Not detected Not detected, Equivocal PARAINFLUENZA VIRUS 4 (BEAKER) (test eiwh=1508) Not detected Not detected, Equivocal ADENOVIRUS (BEAKER) (test llwb=7536) Not detected Not detected, Equivocal CORONAVIRUS 229E (BEAKER) (test hham=3626) Not detected Not detected, Equivocal CORONAVIRUS HKU1 (BEAKER) (test iwdm=5599) Not detected Not detected, Equivocal CORONAVIRUS NL63 (BEAKER) (test wyfz=1967) Not detected Not detected, Equivocal CORONAVIRUS OC43 (BEAKER) (test lmcj=3505) Not detected Not detected, Equivocal BORDETELLA PERTUSSIS (BEAKER) (test hlpz=6558) Not detected Not detected, Equivocal CHLAMYDOPHILA PNEUMONIAE (BEAKER) (test jfmm=1058) Not detected Not detected, Equivocal MYCOPLASMA PNEUMONIAE (BEAKER) (test iksb=1274) Not detected Not detected, Equivocal Other viruses and bacteria not targeted by this PCR panel cannot be excluded; th erefore clinical correlation and follow up of serology, culture results, and oth er molecular studies is required. The results are not intended to be used as the sole means for clinical diagnosis or patient management decisions. This sample was tested at the [facility] using the ScyronA rray Respiratory Panel. It is FDA cleared and has been verified and approved by the [facility] for clinical use on nasal swab specim ens. It is not FDA-cleared for use on bronchial wash/lavage samples. However, fo r this sample type, validation was performed and test characteristics were deter mined and approved, by [facility] for clinical use u nder the Clinical Laboratory Improvement Amendments (CLIA) of 1988 requirements. Therefore, FDA clearance is not required. This laboratory is CLIA-certified an d [employer] ([employer])-accredited to perform high complexity t esting.RAD, CHEST, 2 [id number] 23:23:00Reason for exam:->SICKLE CELL PAIN CRISISReason for [...] Kenna Lyon Date/Time: 12/28/2018 23:23:07 Reading Location: [address] Read ing Room 11 :23 PM RAPID STREP A [id number] 23:03:00* Test Item Value Reference Range Comments STREP A ANTIGEN (BEAKER) (test yjma=628) Negative Negative [id number] 22:54:00* Test Item Value Reference Range Comments PHOSPHORUS (BEAKER) (test kzpt=051) 3.7 mg/dL 2.3-4.7 [id number] 22:54:00* Test Item Value Reference Range Comments MAGNESIUM (BEAKER) (test ipkz=878) 2.1 mg/dL 1.6-2.6 HEPATIC FUNCTION [id number] 22:54:00* Test Item Value Reference Range Comments TOTAL PROTEIN (BEAKER) (test chdw=293) 6.4 gm/dL 6.0-8.3 ALBUMIN (BEAKER) (test okso=9308) 4.2 g/dL 3.5-5.0 BILIRUBIN TOTAL (BEAKER) (test ubru=440) 1.2 mg/dL 0.2-1.2 BILIRUBIN DIRECT (BEAKER) (test secn=865) 0.5 mg/dL 0.1-0.5 ALKALINE PHOSPHATASE (BEAKER) (test ppkm=616) 65 U/L 40-150 AST (SGOT) (BEAKER) (test wuhf=373) 22 U/L 5-34 ALT (SGPT) (BEAKER) (test qbpy=275) 9 U/L 6-55 [id number] 22:54:00* Test Item Value Reference Range Comments LIPASE (BEAKER) (test sfxn=491) 6 U/L 8-78 SCREEN, [id number] 22:08:00* Test Item Value Reference Range Comments TEST URINE (BEAKER) (test cdnh=914) Negative URINALYSIS W/ REFLEX URINE [id number] 22:07:00* Test Item Value Reference Range Comments COLOR (BEAKER) (test mkyt=976) Light Yellow CLARITY (BEAKER) (test fnnk=818) Hazy SPECIFIC GRAVITY UA (BEAKER) (test bxim=711) 1.007 1.001-1.035 PH UA (BEAKER) (test sdtb=655) 7.0 5.0-8.0 PROTEIN UA (BEAKER) (test bclq=298) Negative Negative GLUCOSE UA (BEAKER) (test cfcp=708) Negative Negative KETONES UA (BEAKER) (test iqqi=055) Negative Negative BILIRUBIN UA (BEAKER) (test mzpv=525) Negative Negative BLOOD UA (BEAKER) (test pegw=455) Small Negative NITRITE UA (BEAKER) (test iqmv=687) Negative Negative LEUKOCYTE ESTERASE UA (BEAKER) (test hbxd=575) Negative Negative UROBILINOGEN UA (BEAKER) (test vleu=916) 0.2 mg/dL 0.2-1.0 RBC UA (BEAKER) (test xtns=815) 1 /HPF WBC UA (BEAKER) (test xqwj=464) 1 /HPF BACTERIA (BEAKER) (test xsjz=421) Rare MUCUS (BEAKER) (test ohio=6579) Rare SQUAMOUS EPITHELIAL (BEAKER) (test nqwo=988) 7 /HPF SOURCE(BEAKER) (test fxqt=5430) CBC W/PLT COUNT & AUTO [id number] 15:47:00* Test Item Value Reference Range Comments WHITE BLOOD CELL COUNT (BEAKER) (test icuo=991) 16.3 K/ L 3.5-10.5 RED BLOOD CELL COUNT (BEAKER) (test fcze=952) 3.54 M/ L 3.93-5.22 HEMOGLOBIN (BEAKER) (test kadd=148) 8.3 GM/DL 11.2-15.7 HEMATOCRIT (BEAKER) (test ivas=817) 27.1 % 34.1-44.9 MEAN CORPUSCULAR VOLUME (BEAKER) (test hfmw=436) 76.6 fL 79.4-94.8 MEAN CORPUSCULAR HEMOGLOBIN (BEAKER) (test mgyl=668) 23.4 pg 25.6-32.2 MEAN CORPUSCULAR HEMOGLOBIN CONC (BEAKER) (test vhaa=554) 30.6 GM/DL 32.2-35.5 RED CELL DISTRIBUTION WIDTH (BEAKER) (test llmc=846) 22.2 % 11.7-14.4 PLATELET COUNT (BEAKER) (test lnai=174) 292 K/CU MM 150-450 MEAN PLATELET VOLUME (BEAKER) (test pvak=550) 9.9 fL 9.4-12.3 NUCLEATED RED BLOOD CELLS (BEAKER) (test ybzh=602) 2 /100 WBC 0-0 (CELLAVISION MANUAL DIFF)2018-12-28 15:47:00* Test Item Value Reference Range Comments NEUTROPHILS - REL (CELLAVISION)(BEAKER) (test xekx=5773) 90 % LYMPHOCYTES - REL (CELLAVISION)(BEAKER) (test gqpb=9309) 9 % MONOCYTES - REL (CELLAVISION)(BEAKER) (test eqht=9919) 1 % NEUTROPHILS - ABS (CELLAVISION)(BEAKER) (test llcy=9014) 14.67 K/ul 1.56-6.13 LYMPHOCYTES - ABS (CELLAVISION)(BEAKER) (test qkkk=0073) 1.47 K/ul 1.18-3.74 MONOCYTES - ABS (CELLAVISION)(BEAKER) (test ltuc=1035) 0.16 K/uL 0.24-0.36 TOTAL COUNTED (BEAKER) (test lkfp=9763) 100 MANUAL NRBC PER 100 CELLS (BEAKER) (test wqhh=1408) 1 /100 WBC 0-0 WBC MORPHOLOGY (BEAKER) (test duju=911) Normal GIANT PLATELETS (BEAKER) (test tyic=687) Present POLYCHROMATOPHILLIC RBCS(BEAKER) (test ibeh=633) 3+ many HYPOCHROMIA (BEAKER) (test kcsy=766) 1+ few ANISOCYTOSIS (BEAKER) (test melz=905) 2+ moderate MICROCYTES (BEAKER) (test elcx=804) 2+ moderate POIKILOCYTES (BEAKER) (test phez=621) 2+ moderate TARGET CELLS (BEAKER) (test vghp=589) 1+ few SICKLE CELLS (BEAKER) (test qzxo=219) 1+ few TEAR DROP CELLS (BEAKER) (test fknb=557) 1+ few ARTIFACT (CELLAVISION)(BEAKER) (test barh=2298) Present PLATELET CONCENTRATION (CELLAVISION)(BEAKER) (test hppj=3518) Adequate Received comment: User comments: Slide comments: BASIC METABOLIC [id number] 15:10:00* Test Item Value Reference Range Comments SODIUM (BEAKER) (test znci=347) 144 meq/L 136-145 POTASSIUM (BEAKER) (test tzkt=987) 4.1 meq/L 3.5-5.1 CHLORIDE (BEAKER) (test mhep=937) 111 meq/L 98-107 CO2 (BEAKER) (test ymsv=527) 25 meq/L 22-29 BLOOD UREA NITROGEN (BEAKER) (test vbia=231) 10 mg/dL 7-21 CREATININE (BEAKER) (test tatf=301) 0.55 mg/dL 0.57-1.25 GLUCOSE RANDOM (BEAKER) (test vvsy=368) 95 mg/dL 70-105 CALCIUM (BEAKER) (test rloy=055) 9.3 mg/dL 8.4-10.2 EGFR (BEAKER) (test idtr=3000) 168 mL/min/1.73 sq m ESTIMATED GFR IS NOT ACCURATE CREATININE CLEARANCE IN PREDICTING GLOMERULAR FILTRATION RATE. ESTIMATED GFR IS NOT APPLICABLE FOR DIALYSIS PATIENTS. RETICULOCYTE [id number] 15:09:00* Test Item Value Reference Range Comments RETICULOCYTE COUNT PCT (BEAKER) (test zpvr=924) 5.8 % 0.5-1.7 BLOOD [id number] 19:00:00* Test Item Value Reference Range Comments CULTURE (BEAKER) (test qxod=9008) No growth in 5 days BASIC METABOLIC [id number] 06:14:00* Test Item Value Reference Range Comments SODIUM (BEAKER) (test hyqz=010) 141 meq/L 136-145 POTASSIUM (BEAKER) (test pvly=129) 4.0 meq/L 3.5-5.1 CHLORIDE (BEAKER) (test akja=772) 105 meq/L 98-107 CO2 (BEAKER) (test wmzz=039) 29 meq/L 22-29 BLOOD UREA NITROGEN (BEAKER) (test ybvo=335) 4 mg/dL 7-21 CREATININE (BEAKER) (test fgqe=593) 0.55 mg/dL 0.57-1.25 GLUCOSE RANDOM (BEAKER) (test fsei=733) 92 mg/dL 70-105 CALCIUM (BEAKER) (test scee=360) 9.7 mg/dL 8.4-10.2 EGFR (BEAKER) (test dhsk=3320) 168 mL/min/1.73 sq m ESTIMATED GFR IS NOT ACCURATE CREATININE CLEARANCE IN PREDICTING GLOMERULAR FILTRATION RATE. ESTIMATED GFR IS NOT APPLICABLE FOR DIALYSIS PATIENTS. CBC W/PLT COUNT & AUTO [id number] 06:08:00* Test Item Value Reference Range Comments WHITE BLOOD CELL COUNT (BEAKER) (test lmjn=792) 7.7 K/ L 3.5-10.5 RED BLOOD CELL COUNT (BEAKER) (test bnul=177) 3.54 M/ L 3.93-5.22 HEMOGLOBIN (BEAKER) (test scyy=322) 8.6 GM/DL 11.2-15.7 HEMATOCRIT (BEAKER) (test tdqs=140) 27.2 % 34.1-44.9 MEAN CORPUSCULAR VOLUME (BEAKER) (test zwug=710) 76.8 fL 79.4-94.8 MEAN CORPUSCULAR HEMOGLOBIN (BEAKER) (test sczv=508) 24.3 pg 25.6-32.2 MEAN CORPUSCULAR HEMOGLOBIN CONC (BEAKER) (test xfbm=434) 31.6 GM/DL 32.2-35.5 RED CELL DISTRIBUTION WIDTH (BEAKER) (test nsye=385) 18.8 % 11.7-14.4 PLATELET COUNT (BEAKER) (test zyvk=871) 249 K/CU MM 150-450 MEAN PLATELET VOLUME (BEAKER) (test bnvr=147) 10.2 fL 9.4-12.3 NUCLEATED RED BLOOD CELLS (BEAKER) (test ybce=694) 1 /100 WBC 0-0 NEUTROPHILS RELATIVE PERCENT (BEAKER) (test wlmw=083) 55 % LYMPHOCYTES RELATIVE PERCENT (BEAKER) (test fgnn=955) 29 % MONOCYTES RELATIVE PERCENT (BEAKER) (test nepy=106) 10 % EOSINOPHILS RELATIVE PERCENT (BEAKER) (test cjww=526) 5 % BASOPHILS RELATIVE PERCENT (BEAKER) (test kxkm=378) 1 % NEUTROPHILS ABSOLUTE COUNT (BEAKER) (test eahu=488) 4.24 K/ L 1.56-6.13 LYMPHOCYTES ABSOLUTE COUNT (BEAKER) (test tjdb=100) 2.19 K/ L 1.18-3.74 MONOCYTES ABSOLUTE COUNT (BEAKER) (test hnqs=047) 0.76 K/ L 0.24-0.36 EOSINOPHILS ABSOLUTE COUNT (BEAKER) (test zpue=828) 0.37 K/ L 0.04-0.36 BASOPHILS ABSOLUTE COUNT (BEAKER) (test onpx=822) 0.08 K/ L 0.01-0.08 IMMATURE GRANULOCYTES-RELATIVE PERCENT (BEAKER) (test hfrw=2117) 0 % 0-1 CBC W/PLT COUNT & AUTO [id number] 06:00:00* Test Item Value Reference Range Comments WHITE BLOOD CELL COUNT (BEAKER) (test jnnk=985) 8.0 K/ L 3.5-10.5 RED BLOOD CELL COUNT (BEAKER) (test tsou=533) 2.67 M/ L 3.93-5.22 HEMOGLOBIN (BEAKER) (test fejf=920) 6.0 GM/DL 11.2-15.7 HEMATOCRIT (BEAKER) (test zsqq=224) 19.4 % 34.1-44.9 MEAN CORPUSCULAR VOLUME (BEAKER) (test xioy=116) 72.7 fL 79.4-94.8 MEAN CORPUSCULAR HEMOGLOBIN (BEAKER) (test hcdi=384) 22.5 pg 25.6-32.2 MEAN CORPUSCULAR HEMOGLOBIN CONC (BEAKER) (test fsrj=006) 30.9 GM/DL 32.2-35.5 RED CELL DISTRIBUTION WIDTH (BEAKER) (test oxoz=532) 17.2 % 11.7-14.4 PLATELET COUNT (BEAKER) (test bxsa=244) 229 K/CU MM 150-450 MEAN PLATELET VOLUME (BEAKER) (test rear=869) 9.4 fL 9.4-12.3 NUCLEATED RED BLOOD CELLS (BEAKER) (test kbbu=597) 1 /100 WBC 0-0 NEUTROPHILS RELATIVE PERCENT (BEAKER) (test pdzc=765) 52 % LYMPHOCYTES RELATIVE PERCENT (BEAKER) (test jjkh=011) 33 % MONOCYTES RELATIVE PERCENT (BEAKER) (test zsap=995) 9 % EOSINOPHILS RELATIVE PERCENT (BEAKER) (test kkqy=596) 5 % BASOPHILS RELATIVE PERCENT (BEAKER) (test hdqs=029) 1 % NEUTROPHILS ABSOLUTE COUNT (BEAKER) (test myfp=489) 4.12 K/ L 1.56-6.13 LYMPHOCYTES ABSOLUTE COUNT (BEAKER) (test laco=682) 2.64 K/ L 1.18-3.74 MONOCYTES ABSOLUTE COUNT (BEAKER) (test okxm=398) 0.74 K/ L 0.24-0.36 EOSINOPHILS ABSOLUTE COUNT (BEAKER) (test roba=191) 0.39 K/ L 0.04-0.36 BASOPHILS ABSOLUTE COUNT (BEAKER) (test xxfz=183) 0.05 K/ L 0.01-0.08 IMMATURE GRANULOCYTES-RELATIVE PERCENT (BEAKER) (test zewz=5741) 0 % 0-1 BASIC METABOLIC [id number] 05:59:00* Test Item Value Reference Range Comments SODIUM (BEAKER) (test vzvz=215) 139 meq/L 136-145 POTASSIUM (BEAKER) (test faam=035) 3.9 meq/L 3.5-5.1 CHLORIDE (BEAKER) (test vmtj=128) 105 meq/L 98-107 CO2 (BEAKER) (test jpye=553) 28 meq/L 22-29 BLOOD UREA NITROGEN (BEAKER) (test ktsq=351) 3 mg/dL 7-21 CREATININE (BEAKER) (test ggjt=088) 0.51 mg/dL 0.57-1.25 GLUCOSE RANDOM (BEAKER) (test jvfq=003) 96 mg/dL 70-105 CALCIUM (BEAKER) (test umjp=129) 9.0 mg/dL 8.4-10.2 EGFR (BEAKER) (test mvmg=1524) 183 mL/min/1.73 sq m ESTIMATED GFR IS NOT ACCURATE CREATININE CLEARANCE IN PREDICTING GLOMERULAR FILTRATION RATE. ESTIMATED GFR IS NOT APPLICABLE FOR DIALYSIS PATIENTS. CBC W/PLT COUNT & AUTO [id number] 07:11:00* Test Item Value Reference Range Comments WHITE BLOOD CELL COUNT (BEAKER) (test yakd=477) 7.8 K/ L 3.5-10.5 RED BLOOD CELL COUNT (BEAKER) (test jayc=086) 2.64 M/ L 3.93-5.22 HEMOGLOBIN (BEAKER) (test oanx=329) 5.9 GM/DL 11.2-15.7 HEMATOCRIT (BEAKER) (test dmlc=440) 19.4 % 34.1-44.9 MEAN CORPUSCULAR VOLUME (BEAKER) (test pqmr=700) 73.5 fL 79.4-94.8 MEAN CORPUSCULAR HEMOGLOBIN (BEAKER) (test rwtj=100) 22.3 pg 25.6-32.2 MEAN CORPUSCULAR HEMOGLOBIN CONC (BEAKER) (test qirr=393) 30.4 GM/DL 32.2-35.5 RED CELL DISTRIBUTION WIDTH (BEAKER) (test zbyg=297) 17.1 % 11.7-14.4 PLATELET COUNT (BEAKER) (test kenc=524) 185 K/CU MM 150-450 MEAN PLATELET VOLUME (BEAKER) (test tiub=937) 10.1 fL 9.4-12.3 NUCLEATED RED BLOOD CELLS (BEAKER) (test metv=974) 2 /100 WBC 0-0 NEUTROPHILS RELATIVE PERCENT (BEAKER) (test mdru=981) 57 % LYMPHOCYTES RELATIVE PERCENT (BEAKER) (test qyxc=945) 26 % MONOCYTES RELATIVE PERCENT (BEAKER) (test eiel=849) 11 % EOSINOPHILS RELATIVE PERCENT (BEAKER) (test hqjy=400) 6 % BASOPHILS RELATIVE PERCENT (BEAKER) (test tpnk=169) 1 % NEUTROPHILS ABSOLUTE COUNT (BEAKER) (test ojlh=365) 4.43 K/ L 1.56-6.13 LYMPHOCYTES ABSOLUTE COUNT (BEAKER) (test ecvq=780) 2.06 K/ L 1.18-3.74 MONOCYTES ABSOLUTE COUNT (BEAKER) (test plmp=873) 0.84 K/ L 0.24-0.36 EOSINOPHILS ABSOLUTE COUNT (BEAKER) (test ksxp=449) 0.44 K/ L 0.04-0.36 BASOPHILS ABSOLUTE COUNT (BEAKER) (test jloj=214) 0.04 K/ L 0.01-0.08 IMMATURE GRANULOCYTES-RELATIVE PERCENT (BEAKER) (test bitu=0707) 0 % 0-1 BASIC METABOLIC [id number] 07:03:00* Test Item Value Reference Range Comments SODIUM (BEAKER) (test fvry=706) 140 meq/L 136-145 POTASSIUM (BEAKER) (test mfot=222) 3.6 meq/L 3.5-5.1 CHLORIDE (BEAKER) (test dmig=524) 106 meq/L 98-107 CO2 (BEAKER) (test mjae=059) 27 meq/L 22-29 BLOOD UREA NITROGEN (BEAKER) (test zkbi=448) 3 mg/dL 7-21 CREATININE (BEAKER) (test ppvg=461) 0.53 mg/dL 0.57-1.25 GLUCOSE RANDOM (BEAKER) (test fbra=664) 97 mg/dL 70-105 CALCIUM (BEAKER) (test wobj=585) 9.4 mg/dL 8.4-10.2 EGFR (BEAKER) (test wjxt=9866) 175 mL/min/1.73 sq m ESTIMATED GFR IS NOT ACCURATE CREATININE CLEARANCE IN PREDICTING GLOMERULAR FILTRATION RATE. ESTIMATED GFR IS NOT APPLICABLE FOR DIALYSIS PATIENTS. EBV VIRAL [id number] 16:03:00* Test Item Value Reference Range Comments EBV VIRAL LOAD - NEGATIVE (BEAKER) (test jnyr=2274) Negative or below the linear range of the assay (<500 copies/mL) This assay was performed by real-time PCR for the detection of the Haleigh-Heaton virus (EBV) gene EBNA-1. The test is composed of (1) DNA extraction from patien t specimen, and (2) real-time PCR amplification and detection with KDMF-2-fjwlhi ic primers and probes. A well-conserved region [...] its performance characteristic s determined by the [facility] Pathology Department, Section of chastity Pathology. It has not been cleared or approved by the U.S. Food and Edmar g Administration (FDA), since FDA approval is not required for clinical use of t he test. Validation was done as required by The Clinical Laboratory Improvement Amendments of 1988.URINE [id number] 10:17:00* Test Item Value Reference Range Comments CULTURE (BEAKER) (test edlq=3336) 50-59,000 col/mL skin lola [id number] 05:53:00* Test Item Value Reference Range Comments MAGNESIUM (BEAKER) (test ljrb=510) 2.3 mg/dL 1.6-2.6 BASIC METABOLIC [id number] 05:53:00* Test Item Value Reference Range Comments SODIUM (BEAKER) (test dvma=836) 139 meq/L 136-145 POTASSIUM (BEAKER) (test moah=933) 3.7 meq/L 3.5-5.1 CHLORIDE (BEAKER) (test sxse=858) 105 meq/L 98-107 CO2 (BEAKER) (test yaqk=954) 28 meq/L 22-29 BLOOD UREA NITROGEN (BEAKER) (test xkwk=263) 4 mg/dL 7-21 CREATININE (BEAKER) (test fveo=167) 0.51 mg/dL 0.57-1.25 GLUCOSE RANDOM (BEAKER) (test xxgc=647) 93 mg/dL 70-105 CALCIUM (BEAKER) (test phht=973) 9.0 mg/dL 8.4-10.2 EGFR (BEAKER) (test heyq=9438) 183 mL/min/1.73 sq m ESTIMATED GFR IS NOT ACCURATE CREATININE CLEARANCE IN PREDICTING GLOMERULAR FILTRATION RATE. ESTIMATED GFR IS NOT APPLICABLE FOR DIALYSIS PATIENTS. HEPATIC FUNCTION [id number] 05:53:00* Test Item Value Reference Range Comments TOTAL PROTEIN (BEAKER) (test osld=443) 6.3 gm/dL 6.0-8.3 ALBUMIN (BEAKER) (test rrcy=0512) 3.8 g/dL 3.5-5.0 BILIRUBIN TOTAL (BEAKER) (test vaib=954) 1.7 mg/dL 0.2-1.2 BILIRUBIN DIRECT (BEAKER) (test lkmw=311) 0.7 mg/dL 0.1-0.5 ALKALINE PHOSPHATASE (BEAKER) (test tpkn=236) 57 U/L 40-150 AST (SGOT) (BEAKER) (test gviq=206) 18 U/L 5-34 ALT (SGPT) (BEAKER) (test wdvk=671) 13 U/L 6-55 [id number] 05:53:00* Test Item Value Reference Range Comments LIPASE (BEAKER) (test wasp=154) 5 U/L 8-78 CBC W/PLT COUNT & AUTO [id number] 05:42:00* Test Item Value Reference Range Comments WHITE BLOOD CELL COUNT (BEAKER) (test vieh=744) 9.4 K/ L 3.5-10.5 RED BLOOD CELL COUNT (BEAKER) (test pybu=359) 2.66 M/ L 3.93-5.22 HEMOGLOBIN (BEAKER) (test mxey=576) 6.2 GM/DL 11.2-15.7 HEMATOCRIT (BEAKER) (test vtbl=418) 19.8 % 34.1-44.9 MEAN CORPUSCULAR VOLUME (BEAKER) (test cdck=952) 74.4 fL 79.4-94.8 MEAN CORPUSCULAR HEMOGLOBIN (BEAKER) (test lvjm=199) 23.3 pg 25.6-32.2 MEAN CORPUSCULAR HEMOGLOBIN CONC (BEAKER) (test wdmh=086) 31.3 GM/DL 32.2-35.5 RED CELL DISTRIBUTION WIDTH (BEAKER) (test qxhr=389) 17.4 % 11.7-14.4 PLATELET COUNT (BEAKER) (test nqex=631) 161 K/CU MM 150-450 MEAN PLATELET VOLUME (BEAKER) (test fvpa=325) 9.8 fL 9.4-12.3 NUCLEATED RED BLOOD CELLS (BEAKER) (test ktwe=292) 2 /100 WBC 0-0 NEUTROPHILS RELATIVE PERCENT (BEAKER) (test spqw=687) 67 % LYMPHOCYTES RELATIVE PERCENT (BEAKER) (test dipv=159) 16 % MONOCYTES RELATIVE PERCENT (BEAKER) (test yfpg=412) 12 % EOSINOPHILS RELATIVE PERCENT (BEAKER) (test vidk=757) 4 % BASOPHILS RELATIVE PERCENT (BEAKER) (test qdto=977) 0 % NEUTROPHILS ABSOLUTE COUNT (BEAKER) (test bcjl=847) 6.26 K/ L 1.56-6.13 LYMPHOCYTES ABSOLUTE COUNT (BEAKER) (test amhh=647) 1.50 K/ L 1.18-3.74 MONOCYTES ABSOLUTE COUNT (BEAKER) (test nczm=115) 1.17 K/ L 0.24-0.36 EOSINOPHILS ABSOLUTE COUNT (BEAKER) (test abiq=254) 0.39 K/ L 0.04-0.36 BASOPHILS ABSOLUTE COUNT (BEAKER) (test jatj=055) 0.02 K/ L 0.01-0.08 IMMATURE GRANULOCYTES-RELATIVE PERCENT (BEAKER) (test jpmp=0885) 1 % 0-1 CT, CHEST, WITHOUT [id number] 09:20:00FINAL REPORT CT Chest without contrast History: [...] with underlying sickle cell disease. Signed: Cuong Isbell MDReport Verified Date/Time: 12/06/2018 09:20:33 Reading Location: [facility] Imaging Reading Room [place] [address] [id number] 06:07:00* Test Item Value Reference Range Comments MAGNESIUM (BEAKER) (test oswe=095) 2.0 mg/dL 1.6-2.6 BASIC METABOLIC [id number] 06:07:00* Test Item Value Reference Range Comments SODIUM (BEAKER) (test bjfb=789) 140 meq/L 136-145 POTASSIUM (BEAKER) (test yvkl=859) 3.8 meq/L 3.5-5.1 CHLORIDE (BEAKER) (test kele=177) 106 meq/L 98-107 CO2 (BEAKER) (test ibwj=056) 26 meq/L 22-29 BLOOD UREA NITROGEN (BEAKER) (test xiro=108) 6 mg/dL 7-21 CREATININE (BEAKER) (test jauv=423) 0.59 mg/dL 0.57-1.25 GLUCOSE RANDOM (BEAKER) (test afvy=519) 93 mg/dL 70-105 CALCIUM (BEAKER) (test rejs=835) 9.1 mg/dL 8.4-10.2 EGFR (BEAKER) (test waqr=9055) 154 mL/min/1.73 sq m ESTIMATED GFR IS NOT ACCURATE CREATININE CLEARANCE IN PREDICTING GLOMERULAR FILTRATION RATE. ESTIMATED GFR IS NOT APPLICABLE FOR DIALYSIS PATIENTS. CBC W/PLT COUNT & AUTO [id number] 05:53:00* Test Item Value Reference Range Comments WHITE BLOOD CELL COUNT (BEAKER) (test nhmh=745) 12.6 K/ L 3.5-10.5 RED BLOOD CELL COUNT (BEAKER) (test zsfq=395) 2.94 M/ L 3.93-5.22 HEMOGLOBIN (BEAKER) (test tdlg=878) 6.9 GM/DL 11.2-15.7 HEMATOCRIT (BEAKER) (test rkxd=601) 22.1 % 34.1-44.9 MEAN CORPUSCULAR VOLUME (BEAKER) (test pncg=256) 75.2 fL 79.4-94.8 MEAN CORPUSCULAR HEMOGLOBIN (BEAKER) (test ztss=528) 23.5 pg 25.6-32.2 MEAN CORPUSCULAR HEMOGLOBIN CONC (BEAKER) (test hjxh=561) 31.2 GM/DL 32.2-35.5 RED CELL DISTRIBUTION WIDTH (BEAKER) (test cskm=113) 18.4 % 11.7-14.4 PLATELET COUNT (BEAKER) (test hoos=799) 186 K/CU MM 150-450 MEAN PLATELET VOLUME (BEAKER) (test dcdr=071) 10.8 fL 9.4-12.3 NUCLEATED RED BLOOD CELLS (BEAKER) (test wsdi=745) 4 /100 WBC 0-0 NEUTROPHILS RELATIVE PERCENT (BEAKER) (test mfsv=502) 71 % LYMPHOCYTES RELATIVE PERCENT (BEAKER) (test ddjo=984) 16 % MONOCYTES RELATIVE PERCENT (BEAKER) (test ugda=627) 11 % EOSINOPHILS RELATIVE PERCENT (BEAKER) (test wocz=325) 1 % BASOPHILS RELATIVE PERCENT (BEAKER) (test ywvk=582) 0 % NEUTROPHILS ABSOLUTE COUNT (BEAKER) (test nnof=201) 8.98 K/ L 1.56-6.13 LYMPHOCYTES ABSOLUTE COUNT (BEAKER) (test skuq=698) 2.03 K/ L 1.18-3.74 MONOCYTES ABSOLUTE COUNT (BEAKER) (test kmwt=409) 1.32 K/ L 0.24-0.36 EOSINOPHILS ABSOLUTE COUNT (BEAKER) (test gova=789) 0.16 K/ L 0.04-0.36 BASOPHILS ABSOLUTE COUNT (BEAKER) (test djcv=556) 0.03 K/ L 0.01-0.08 IMMATURE GRANULOCYTES-RELATIVE PERCENT (BEAKER) (test rlyl=1769) 1 % 0-1 CBC W/PLT COUNT & AUTO [id number] 12:29:00* Test Item Value Reference Range Comments WHITE BLOOD CELL COUNT (BEAKER) (test wvam=991) 19.7 K/ L 3.5-10.5 RED BLOOD CELL COUNT (BEAKER) (test hubp=002) 3.30 M/ L 3.93-5.22 HEMOGLOBIN (BEAKER) (test miyi=642) 7.6 GM/DL 11.2-15.7 HEMATOCRIT (BEAKER) (test axpg=693) 24.2 % 34.1-44.9 MEAN CORPUSCULAR VOLUME (BEAKER) (test xqfo=279) 73.3 fL 79.4-94.8 MEAN CORPUSCULAR HEMOGLOBIN (BEAKER) (test fklf=716) 23.0 pg 25.6-32.2 MEAN CORPUSCULAR HEMOGLOBIN CONC (BEAKER) (test bcfm=022) 31.4 GM/DL 32.2-35.5 RED CELL DISTRIBUTION WIDTH (BEAKER) (test walw=372) 19.0 % 11.7-14.4 PLATELET COUNT (BEAKER) (test xrhc=631) 203 K/CU MM 150-450 MEAN PLATELET VOLUME (BEAKER) (test qrem=141) 9.6 fL 9.4-12.3 NUCLEATED RED BLOOD CELLS (BEAKER) (test chzl=749) 6 /100 WBC 0-0 (CELLAVISION MANUAL DIFF)2018-12-05 12:29:00* Test Item Value Reference Range Comments NEUTROPHILS - REL (CELLAVISION)(BEAKER) (test lors=4902) 83 % LYMPHOCYTES - REL (CELLAVISION)(BEAKER) (test xuno=7842) 11 % MONOCYTES - REL (CELLAVISION)(BEAKER) (test jmlg=8069) 5 % MYELOCYTES - REL (CELLAVISION)(BEAKER) (test osyt=0019) 1 % 0-0 NEUTROPHILS - ABS (CELLAVISION)(BEAKER) (test zusq=3934) 16.35 K/ul 1.56-6.13 LYMPHOCYTES - ABS (CELLAVISION)(BEAKER) (test xaca=6748) 2.17 K/ul 1.18-3.74 MONOCYTES - ABS (CELLAVISION)(BEAKER) (test flbp=0083) 0.99 K/uL 0.24-0.36 MYELOCYTES-ABS (CELLAVISION)(BEAKER) (test dlzh=2407) 0.20 K/uL 0.00-0.00 TOTAL COUNTED (BEAKER) (test uyor=2178) 100 MANUAL NRBC PER 100 CELLS (BEAKER) (test tyob=2725) 4 /100 WBC 0-0 SMUDGE CELLS (BEAKER) (test ezff=1524) Present GIANT PLATELETS (BEAKER) (test wori=949) Present POLYCHROMATOPHILLIC RBCS(BEAKER) (test cqrh=792) 2+ moderate ANISOCYTOSIS (BEAKER) (test xoho=432) 2+ moderate MICROCYTES (BEAKER) (test lkxa=101) 2+ moderate POIKILOCYTES (BEAKER) (test hima=084) 1+ few SCHISTOCYTES (BEAKER) (test xdnl=404) 2+ moderate SICKLE CELLS (BEAKER) (test bdpr=164) 1+ few ARTIFACT (CELLAVISION)(BEAKER) (test kukd=6113) Present HELMET CELLS (CELLAVISION)(BEAKER) (test exrp=6791) 1+ few PLATELET CONCENTRATION (CELLAVISION)(BEAKER) (test xwcp=3737) Adequate Received comment: User comments: Slide comments: [id number] 06:25:00* Test Item Value Reference Range Comments MAGNESIUM (BEAKER) (test hclk=376) 2.2 mg/dL 1.6-2.6 Specimen slightly hemolyzed BASIC METABOLIC [id number] 06:25:00* Test Item Value Reference Range Comments SODIUM (BEAKER) (test wzrl=044) 139 meq/L 136-145 POTASSIUM (BEAKER) (test epuz=822) 3.9 meq/L 3.5-5.1 Specimen slightly hemolyzed CHLORIDE (BEAKER) (test wtku=220) 106 meq/L 98-107 CO2 (BEAKER) (test yvnn=229) 23 meq/L 22-29 BLOOD UREA NITROGEN (BEAKER) (test otnp=518) 5 mg/dL 7-21 CREATININE (BEAKER) (test biwe=958) 0.51 mg/dL 0.57-1.25 Specimen slightly hemolyzed GLUCOSE RANDOM (BEAKER) (test yeil=775) 103 mg/dL 70-105 CALCIUM (BEAKER) (test yivu=853) 9.1 mg/dL 8.4-10.2 EGFR (BEAKER) (test fbon=2995) 183 mL/min/1.73 sq m ESTIMATED GFR IS NOT ACCURATE CREATININE CLEARANCE IN PREDICTING GLOMERULAR FILTRATION RATE. ESTIMATED GFR IS NOT APPLICABLE FOR DIALYSIS PATIENTS. URINALYSIS W/ REFLEX URINE [id number] 11:49:00* Test Item Value Reference Range Comments COLOR (BEAKER) (test akjg=769) Light Yellow CLARITY (BEAKER) (test qrsx=711) Clear SPECIFIC GRAVITY UA (BEAKER) (test cyyw=417) 1.010 1.001-1.035 PH UA (BEAKER) (test rvhw=483) 5.5 5.0-8.0 PROTEIN UA (BEAKER) (test kuve=458) Negative Negative GLUCOSE UA (BEAKER) (test ckee=443) Negative Negative KETONES UA (BEAKER) (test rbzt=852) Negative Negative BILIRUBIN UA (BEAKER) (test zsmi=266) Negative Negative BLOOD UA (BEAKER) (test xtmy=894) Small Negative NITRITE UA (BEAKER) (test ploi=425) Negative Negative LEUKOCYTE ESTERASE UA (BEAKER) (test ceey=320) Negative Negative UROBILINOGEN UA (BEAKER) (test lqju=311) 0.2 mg/dL 0.2-1.0 RBC UA (BEAKER) (test dmya=733) < /HPF WBC UA (BEAKER) (test ifay=674) 7 /HPF BACTERIA (BEAKER) (test rgtb=575) Rare MUCUS (BEAKER) (test dnzp=0521) Occasional SQUAMOUS EPITHELIAL (BEAKER) (test rpgs=812) 3 /HPF HYALINE CASTS (BEAKER) (test hydc=547) 1 /LPF SOURCE(BEAKER) (test stgl=2667) RAD, CHEST, 1 VIEW, NON [id number] 10:30:00Reason for exam:->SICKLE CELL PAIN CRISISShould this [...] is present. Impression: Bibasilar subsegmental atelectasis. Signed: Ximena Carmen MDReport Verified Date/Time: 12/04/2018 10:30:30 Reading Location: [facility] Radiology Reading Room C METABOLIC [id number] 10:09:00* Test Item Value Reference Range Comments SODIUM (BEAKER) (test wpns=606) 143 meq/L 136-145 POTASSIUM (BEAKER) (test tysn=754) 4.3 meq/L 3.5-5.1 CHLORIDE (BEAKER) (test uylc=531) 114 meq/L 98-107 CO2 (BEAKER) (test hwae=977) 23 meq/L 22-29 BLOOD UREA NITROGEN (BEAKER) (test axlv=869) 4 mg/dL 7-21 CREATININE (BEAKER) (test bttl=019) 0.62 mg/dL 0.57-1.25 GLUCOSE RANDOM (BEAKER) (test fedq=681) 91 mg/dL 70-105 CALCIUM (BEAKER) (test flyc=141) 9.1 mg/dL 8.4-10.2 EGFR (BEAKER) (test iuor=4592) 146 mL/min/1.73 sq m ESTIMATED GFR IS NOT ACCURATE CREATININE CLEARANCE IN PREDICTING GLOMERULAR FILTRATION RATE. ESTIMATED GFR IS NOT APPLICABLE FOR DIALYSIS PATIENTS. CBC W/PLT COUNT & AUTO [id number] 09:51:00* Test Item Value Reference Range Comments WHITE BLOOD CELL COUNT (BEAKER) (test urnu=544) 11.6 K/ L 3.5-10.5 RED BLOOD CELL COUNT (BEAKER) (test jxxf=617) 3.30 M/ L 3.93-5.22 HEMOGLOBIN (BEAKER) (test nfwu=081) 7.7 GM/DL 11.2-15.7 HEMATOCRIT (BEAKER) (test zdss=782) 24.6 % 34.1-44.9 MEAN CORPUSCULAR VOLUME (BEAKER) (test sxlf=930) 74.5 fL 79.4-94.8 MEAN CORPUSCULAR HEMOGLOBIN (BEAKER) (test phuq=404) 23.3 pg 25.6-32.2 MEAN CORPUSCULAR HEMOGLOBIN CONC (BEAKER) (test vnab=187) 31.3 GM/DL 32.2-35.5 RED CELL DISTRIBUTION WIDTH (BEAKER) (test tcim=395) 18.8 % 11.7-14.4 PLATELET COUNT (BEAKER) (test hpsi=016) 237 K/CU MM 150-450 MEAN PLATELET VOLUME (BEAKER) (test zbao=172) 9.9 fL 9.4-12.3 NUCLEATED RED BLOOD CELLS (BEAKER) (test egly=862) 2 /100 WBC 0-0 NEUTROPHILS RELATIVE PERCENT (BEAKER) (test gmiy=999) 57 % LYMPHOCYTES RELATIVE PERCENT (BEAKER) (test btne=344) 28 % MONOCYTES RELATIVE PERCENT (BEAKER) (test slya=715) 9 % EOSINOPHILS RELATIVE PERCENT (BEAKER) (test gull=724) 2 % BASOPHILS RELATIVE PERCENT (BEAKER) (test nygm=092) 1 % NEUTROPHILS ABSOLUTE COUNT (BEAKER) (test mtpu=222) 6.61 K/ L 1.56-6.13 LYMPHOCYTES ABSOLUTE COUNT (BEAKER) (test heeh=208) 3.26 K/ L 1.18-3.74 MONOCYTES ABSOLUTE COUNT (BEAKER) (test cutt=628) 1.07 K/ L 0.24-0.36 EOSINOPHILS ABSOLUTE COUNT (BEAKER) (test plxu=781) 0.23 K/ L 0.04-0.36 BASOPHILS ABSOLUTE COUNT (BEAKER) (test vldn=701) 0.14 K/ L 0.01-0.08 IMMATURE GRANULOCYTES-RELATIVE PERCENT (BEAKER) (test bhrc=4097) 3 % 0-1 RETICULOCYTE [id number] 09:51:00* Test Item Value Reference Range Comments RETICULOCYTE COUNT PCT (BEAKER) (test inth=612) 8.7 % 0.5-1.7 RAD, CHEST, 2 [id number] 02:40:00Reason for exam:->SICKLE CELL PAIN CRISIS FINAL REPORT Exam: Chest x-ray, PA and lateral views Clin ical History: Sickle cell pain crisis. Comparison: Chest radiograph 10/28/2018. [place]: Frontal and lateral views of the chest were obtained. Findings: The car diomediastinal contours are normal. There is linear atelectasis/scarring in the left lower lobe. There is no focal pulmonary consolidation, pleural effusion or pneumothorax. There is no pulmonary edema. There are bony changes of sickle cell disease. Impression: Left lower lobe linear atelectasis/scarring. No focal pulm onary consolidation. Signed: Pietro Webbeport Verified Date/Time: 019 02:40:10 Reading Location: [facility] C013Y CT Body Reading Room Electronical ly signed by: PIETRO WEBB MD on 12/04/2018 02:40 AM BASIC METABOLIC [id number] 02:18:00* Test Item Value Reference Range Comments SODIUM (BEAKER) (test hqtt=026) 145 meq/L 136-145 POTASSIUM (BEAKER) (test oval=078) 4.1 meq/L 3.5-5.1 CHLORIDE (BEAKER) (test vjwl=058) 114 meq/L 98-107 CO2 (BEAKER) (test sixl=261) 23 meq/L 22-29 BLOOD UREA NITROGEN (BEAKER) (test pgxn=641) 5 mg/dL 7-21 CREATININE (BEAKER) (test sein=161) 0.61 mg/dL 0.57-1.25 GLUCOSE RANDOM (BEAKER) (test pspw=403) 101 mg/dL 70-105 CALCIUM (BEAKER) (test wxsb=717) 9.2 mg/dL 8.4-10.2 EGFR (BEAKER) (test vguc=7925) 149 mL/min/1.73 sq m ESTIMATED GFR IS NOT ACCURATE CREATININE CLEARANCE IN PREDICTING GLOMERULAR FILTRATION RATE. ESTIMATED GFR IS NOT APPLICABLE FOR DIALYSIS PATIENTS. RETICULOCYTE [id number] 02:02:00* Test Item Value Reference Range Comments RETICULOCYTE COUNT PCT (BEAKER) (test icmo=541) 8.3 % 0.5-1.7 CBC W/PLT COUNT & AUTO [id number] 02:02:00* Test Item Value Reference Range Comments WHITE BLOOD CELL COUNT (BEAKER) (test djby=332) 10.5 K/ L 3.5-10.5 RED BLOOD CELL COUNT (BEAKER) (test goeh=625) 3.16 M/ L 3.93-5.22 HEMOGLOBIN (BEAKER) (test taso=109) 7.4 GM/DL 11.2-15.7 HEMATOCRIT (BEAKER) (test tpah=125) 22.9 % 34.1-44.9 MEAN CORPUSCULAR VOLUME (BEAKER) (test tgle=896) 72.5 fL 79.4-94.8 MEAN CORPUSCULAR HEMOGLOBIN (BEAKER) (test bgxw=892) 23.4 pg 25.6-32.2 MEAN CORPUSCULAR HEMOGLOBIN CONC (BEAKER) (test gfmh=471) 32.3 GM/DL 32.2-35.5 RED CELL DISTRIBUTION WIDTH (BEAKER) (test fvlr=237) 18.5 % 11.7-14.4 PLATELET COUNT (BEAKER) (test exnd=138) 251 K/CU MM 150-450 MEAN PLATELET VOLUME (BEAKER) (test jxas=468) 10.0 fL 9.4-12.3 NUCLEATED RED BLOOD CELLS (BEAKER) (test brdc=914) 2 /100 WBC 0-0 NEUTROPHILS RELATIVE PERCENT (BEAKER) (test ftkp=634) 58 % LYMPHOCYTES RELATIVE PERCENT (BEAKER) (test bwrg=059) 29 % MONOCYTES RELATIVE PERCENT (BEAKER) (test hray=731) 9 % EOSINOPHILS RELATIVE PERCENT (BEAKER) (test insi=826) 2 % BASOPHILS RELATIVE PERCENT (BEAKER) (test eqtx=215) 1 % NEUTROPHILS ABSOLUTE COUNT (BEAKER) (test pchm=021) 6.10 K/ L 1.56-6.13 LYMPHOCYTES ABSOLUTE COUNT (BEAKER) (test ntyx=540) 3.02 K/ L 1.18-3.74 MONOCYTES ABSOLUTE COUNT (BEAKER) (test viet=917) 0.96 K/ L 0.24-0.36 EOSINOPHILS ABSOLUTE COUNT (BEAKER) (test lzpy=007) 0.19 K/ L 0.04-0.36 BASOPHILS ABSOLUTE COUNT (BEAKER) (test kyho=762) 0.13 K/ L 0.01-0.08 IMMATURE GRANULOCYTES-RELATIVE PERCENT (BEAKER) (test fwtt=7894) 1 % 0-1 CBC W/PLT COUNT & AUTO [id number] 10:54:00* Test Item Value Reference Range Comments WHITE BLOOD CELL COUNT (BEAKER) (test drns=353) 7.3 K/ L 3.5-10.5 RED BLOOD CELL COUNT (BEAKER) (test jrmy=638) 2.84 M/ L 3.93-5.22 HEMOGLOBIN (BEAKER) (test lawe=755) 6.6 GM/DL 11.2-15.7 HEMATOCRIT (BEAKER) (test ftpu=778) 21.9 % 34.1-44.9 MEAN CORPUSCULAR VOLUME (BEAKER) (test vgwa=116) 77.1 fL 79.4-94.8 MEAN CORPUSCULAR HEMOGLOBIN (BEAKER) (test aqlm=039) 23.2 pg 25.6-32.2 MEAN CORPUSCULAR HEMOGLOBIN CONC (BEAKER) (test tatt=417) 30.1 GM/DL 32.2-35.5 RED CELL DISTRIBUTION WIDTH (BEAKER) (test lixo=898) 20.1 % 11.7-14.4 PLATELET COUNT (BEAKER) (test fltw=323) 302 K/CU MM 150-450 MEAN PLATELET VOLUME (BEAKER) (test qjyi=580) 10.1 fL 9.4-12.3 NUCLEATED RED BLOOD CELLS (BEAKER) (test daju=020) 4 /100 WBC 0-0 (CELLAVISION MANUAL DIFF)2018-11-04 10:54:00* Test Item Value Reference Range Comments NEUTROPHILS - REL (CELLAVISION)(BEAKER) (test vlwn=5184) 37 % LYMPHOCYTES - REL (CELLAVISION)(BEAKER) (test ngfq=1174) 50 % MONOCYTES - REL (CELLAVISION)(BEAKER) (test grcb=9469) 7 % EOSINOPHILS - REL (CELLAVISION)(BEAKER) (test padq=1481) 4 % METAMYELOCYTES - REL (CELLAVISION)(BEAKER) (test gkik=6391) 1 % 0-0 MYELOCYTES - REL (CELLAVISION)(BEAKER) (test yivy=7949) 1 % 0-0 NEUTROPHILS - ABS (CELLAVISION)(BEAKER) (test bpiq=7745) 2.70 K/ul 1.56-6.13 LYMPHOCYTES - ABS (CELLAVISION)(BEAKER) (test yhwl=2614) 3.65 K/ul 1.18-3.74 MONOCYTES - ABS (CELLAVISION)(BEAKER) (test nlwb=5950) 0.51 K/uL 0.24-0.36 EOSINOPHILS - ABS (CELLAVISION)(BEAKER) (test qtmb=5535) 0.29 K/uL 0.04-0.36 METAMYELOCYTES - ABS (CELLAVISION)(BEAKER) (test xzez=6786) 0.07 K/uL 0.00-0.00 MYELOCYTES-ABS (CELLAVISION)(BEAKER) (test zfjc=8953) 0.07 K/uL 0.00-0.00 TOTAL COUNTED (BEAKER) (test cmwt=4438) 100 MANUAL NRBC PER 100 CELLS (BEAKER) (test perq=8211) 2 /100 WBC 0-0 WBC MORPHOLOGY (BEAKER) (test bgay=217) Normal PLT MORPHOLOGY (BEAKER) (test jtyi=291) Normal POLYCHROMATOPHILLIC RBCS(BEAKER) (test pood=043) 2+ moderate HYPOCHROMIA (BEAKER) (test zgko=734) 2+ moderate ANISOCYTOSIS (BEAKER) (test mctw=742) 2+ moderate POIKILOCYTES (BEAKER) (test xhtc=396) 2+ moderate TARGET CELLS (BEAKER) (test twpj=121) 2+ moderate ARTIFACT (CELLAVISION)(BEAKER) (test lnzc=7024) Present PLATELET CONCENTRATION (CELLAVISION)(BEAKER) (test lxou=0342) Adequate Received comment: User comments: Slide comments: LACTATE DEHYDROGENASE (LDH) 2018-11-03 19:42:00* Test Item Value Reference Range Comments LACTATE DEHYDROGENASE (BEAKER) (test bxnz=659) 447 U/L 125-220 Specimen slightly hemolyzed CBC W/PLT COUNT & AUTO [id number] 07:13:00* Test Item Value Reference Range Comments WHITE BLOOD CELL COUNT (BEAKER) (test qxqj=592) 6.6 K/ L 3.5-10.5 RED BLOOD CELL COUNT (BEAKER) (test bfum=335) 2.56 M/ L 3.93-5.22 HEMOGLOBIN (BEAKER) (test wwvm=908) 6.0 GM/DL 11.2-15.7 HEMATOCRIT (BEAKER) (test fond=564) 19.2 % 34.1-44.9 MEAN CORPUSCULAR VOLUME (BEAKER) (test eybj=995) 75.0 fL 79.4-94.8 MEAN CORPUSCULAR HEMOGLOBIN (BEAKER) (test xjbc=784) 23.4 pg 25.6-32.2 MEAN CORPUSCULAR HEMOGLOBIN CONC (BEAKER) (test rjia=451) 31.3 GM/DL 32.2-35.5 RED CELL DISTRIBUTION WIDTH (BEAKER) (test xlyd=819) 19.2 % 11.7-14.4 PLATELET COUNT (BEAKER) (test nazm=153) 223 K/CU MM 150-450 MEAN PLATELET VOLUME (BEAKER) (test lmfx=622) 10.1 fL 9.4-12.3 NUCLEATED RED BLOOD CELLS (BEAKER) (test amob=820) 1 /100 WBC 0-0 NEUTROPHILS RELATIVE PERCENT (BEAKER) (test kbli=209) 40 % LYMPHOCYTES RELATIVE PERCENT (BEAKER) (test iqnh=557) 41 % MONOCYTES RELATIVE PERCENT (BEAKER) (test vmev=579) 12 % EOSINOPHILS RELATIVE PERCENT (BEAKER) (test sqnj=588) 4 % BASOPHILS RELATIVE PERCENT (BEAKER) (test jibs=282) 2 % NEUTROPHILS ABSOLUTE COUNT (BEAKER) (test htce=695) 2.66 K/ L 1.56-6.13 LYMPHOCYTES ABSOLUTE COUNT (BEAKER) (test gfun=139) 2.69 K/ L 1.18-3.74 MONOCYTES ABSOLUTE COUNT (BEAKER) (test ovbj=245) 0.80 K/ L 0.24-0.36 EOSINOPHILS ABSOLUTE COUNT (BEAKER) (test oteb=285) 0.28 K/ L 0.04-0.36 BASOPHILS ABSOLUTE COUNT (BEAKER) (test oirs=483) 0.11 K/ L 0.01-0.08 IMMATURE GRANULOCYTES-RELATIVE PERCENT (BEAKER) (test fwjb=0636) 1 % 0-1 BLOOD [id number] 01:00:00* Test Item Value Reference Range Comments CULTURE (BEAKER) (test whuq=4758) No growth in 5 days BLOOD [id number] 01:00:00* Test Item Value Reference Range Comments CULTURE (BEAKER) (test gqbu=8094) No growth in 5 days CBC W/PLT COUNT & AUTO [id number] 06:12:00* Test Item Value Reference Range Comments WHITE BLOOD CELL COUNT (BEAKER) (test tgso=285) 5.7 K/ L 3.5-10.5 RED BLOOD CELL COUNT (BEAKER) (test dfim=597) 2.67 M/ L 3.93-5.22 HEMOGLOBIN (BEAKER) (test bbjl=379) 6.3 GM/DL 11.2-15.7 HEMATOCRIT (BEAKER) (test suul=396) 20.0 % 34.1-44.9 MEAN CORPUSCULAR VOLUME (BEAKER) (test ijwn=884) 74.9 fL 79.4-94.8 MEAN CORPUSCULAR HEMOGLOBIN (BEAKER) (test limv=127) 23.6 pg 25.6-32.2 MEAN CORPUSCULAR HEMOGLOBIN CONC (BEAKER) (test uzpa=103) 31.5 GM/DL 32.2-35.5 RED CELL DISTRIBUTION WIDTH (BEAKER) (test qgrr=884) 18.6 % 11.7-14.4 PLATELET COUNT (BEAKER) (test qdca=977) 219 K/CU MM 150-450 MEAN PLATELET VOLUME (BEAKER) (test cwny=202) 10.8 fL 9.4-12.3 NUCLEATED RED BLOOD CELLS (BEAKER) (test nddg=739) 1 /100 WBC 0-0 NEUTROPHILS RELATIVE PERCENT (BEAKER) (test wyuw=250) 48 % LYMPHOCYTES RELATIVE PERCENT (BEAKER) (test lhns=776) 35 % MONOCYTES RELATIVE PERCENT (BEAKER) (test gcnj=070) 11 % EOSINOPHILS RELATIVE PERCENT (BEAKER) (test azcs=875) 5 % BASOPHILS RELATIVE PERCENT (BEAKER) (test rdrf=435) 1 % NEUTROPHILS ABSOLUTE COUNT (BEAKER) (test aqas=329) 2.73 K/ L 1.56-6.13 LYMPHOCYTES ABSOLUTE COUNT (BEAKER) (test mtth=314) 1.96 K/ L 1.18-3.74 MONOCYTES ABSOLUTE COUNT (BEAKER) (test jexz=225) 0.62 K/ L 0.24-0.36 EOSINOPHILS ABSOLUTE COUNT (BEAKER) (test dleq=224) 0.27 K/ L 0.04-0.36 BASOPHILS ABSOLUTE COUNT (BEAKER) (test liwt=608) 0.08 K/ L 0.01-0.08 IMMATURE GRANULOCYTES-RELATIVE PERCENT (BEAKER) (test jppp=3523) 0 % 0-1 CBC W/PLT COUNT & AUTO [id number] 07:13:00* Test Item Value Reference Range Comments WHITE BLOOD CELL COUNT (BEAKER) (test tggn=304) 7.2 K/ L 3.5-10.5 RED BLOOD CELL COUNT (BEAKER) (test dosi=189) 2.67 M/ L 3.93-5.22 HEMOGLOBIN (BEAKER) (test qhrt=544) 6.3 GM/DL 11.2-15.7 HEMATOCRIT (BEAKER) (test krqp=365) 20.0 % 34.1-44.9 MEAN CORPUSCULAR VOLUME (BEAKER) (test njbg=073) 74.9 fL 79.4-94.8 MEAN CORPUSCULAR HEMOGLOBIN (BEAKER) (test dvez=292) 23.6 pg 25.6-32.2 MEAN CORPUSCULAR HEMOGLOBIN CONC (BEAKER) (test ronm=847) 31.5 GM/DL 32.2-35.5 RED CELL DISTRIBUTION WIDTH (BEAKER) (test spin=513) 17.8 % 11.7-14.4 PLATELET COUNT (BEAKER) (test nrgj=823) 170 K/CU MM 150-450 MEAN PLATELET VOLUME (BEAKER) (test sjth=943) 9.9 fL 9.4-12.3 NUCLEATED RED BLOOD CELLS (BEAKER) (test ijcx=456) 1 /100 WBC 0-0 NEUTROPHILS RELATIVE PERCENT (BEAKER) (test txfa=038) 64 % LYMPHOCYTES RELATIVE PERCENT (BEAKER) (test svje=108) 21 % MONOCYTES RELATIVE PERCENT (BEAKER) (test qcdr=959) 11 % EOSINOPHILS RELATIVE PERCENT (BEAKER) (test kblh=757) 3 % BASOPHILS RELATIVE PERCENT (BEAKER) (test cdzg=684) 0 % NEUTROPHILS ABSOLUTE COUNT (BEAKER) (test jupu=911) 4.60 K/ L 1.56-6.13 LYMPHOCYTES ABSOLUTE COUNT (BEAKER) (test okrt=038) 1.51 K/ L 1.18-3.74 MONOCYTES ABSOLUTE COUNT (BEAKER) (test zbks=358) 0.80 K/ L 0.24-0.36 EOSINOPHILS ABSOLUTE COUNT (BEAKER) (test howu=423) 0.21 K/ L 0.04-0.36 BASOPHILS ABSOLUTE COUNT (BEAKER) (test qhgx=387) 0.03 K/ L 0.01-0.08 IMMATURE GRANULOCYTES-RELATIVE PERCENT (BEAKER) (test zonl=5167) 0 % 0-1 BASIC METABOLIC [id number] 07:02:00* Test Item Value Reference Range Comments SODIUM (BEAKER) (test tjqi=438) 142 meq/L 136-145 POTASSIUM (BEAKER) (test vzlf=563) 3.8 meq/L 3.5-5.1 CHLORIDE (BEAKER) (test bynh=057) 112 meq/L 98-107 CO2 (BEAKER) (test vyhj=944) 25 meq/L 22-29 BLOOD UREA NITROGEN (BEAKER) (test sovs=721) 4 mg/dL 7-21 CREATININE (BEAKER) (test loml=310) 0.50 mg/dL 0.57-1.25 GLUCOSE RANDOM (BEAKER) (test xhic=103) 100 mg/dL 70-105 CALCIUM (BEAKER) (test ozhr=708) 8.7 mg/dL 8.4-10.2 EGFR (BEAKER) (test eusx=9633) 187 mL/min/1.73 sq m ESTIMATED GFR IS NOT ACCURATE CREATININE CLEARANCE IN PREDICTING GLOMERULAR FILTRATION RATE. ESTIMATED GFR IS NOT APPLICABLE FOR DIALYSIS PATIENTS. CBC W/PLT COUNT & AUTO [id number] 08:52:00* Test Item Value Reference Range Comments WHITE BLOOD CELL COUNT (BEAKER) (test pkid=599) 10.5 K/ L 3.5-10.5 RED BLOOD CELL COUNT (BEAKER) (test cydl=771) 3.06 M/ L 3.93-5.22 HEMOGLOBIN (BEAKER) (test emdw=806) 7.2 GM/DL 11.2-15.7 HEMATOCRIT (BEAKER) (test sifu=537) 22.9 % 34.1-44.9 MEAN CORPUSCULAR VOLUME (BEAKER) (test fifk=064) 74.8 fL 79.4-94.8 MEAN CORPUSCULAR HEMOGLOBIN (BEAKER) (test ycja=805) 23.5 pg 25.6-32.2 MEAN CORPUSCULAR HEMOGLOBIN CONC (BEAKER) (test utpq=721) 31.4 GM/DL 32.2-35.5 RED CELL DISTRIBUTION WIDTH (BEAKER) (test xqtg=167) 18.3 % 11.7-14.4 PLATELET COUNT (BEAKER) (test cpkm=093) 213 K/CU MM 150-450 MEAN PLATELET VOLUME (BEAKER) (test xxrr=677) 10.6 fL 9.4-12.3 NUCLEATED RED BLOOD CELLS (BEAKER) (test oidf=575) 2 /100 WBC 0-0 NEUTROPHILS RELATIVE PERCENT (BEAKER) (test qzkh=866) 77 % LYMPHOCYTES RELATIVE PERCENT (BEAKER) (test ttzj=405) 10 % MONOCYTES RELATIVE PERCENT (BEAKER) (test sgpg=388) 12 % EOSINOPHILS RELATIVE PERCENT (BEAKER) (test spbk=695) 1 % BASOPHILS RELATIVE PERCENT (BEAKER) (test bpvz=089) 0 % NEUTROPHILS ABSOLUTE COUNT (BEAKER) (test gosz=736) 8.03 K/ L 1.56-6.13 LYMPHOCYTES ABSOLUTE COUNT (BEAKER) (test ejgm=170) 1.00 K/ L 1.18-3.74 MONOCYTES ABSOLUTE COUNT (BEAKER) (test vaca=921) 1.24 K/ L 0.24-0.36 EOSINOPHILS ABSOLUTE COUNT (BEAKER) (test maoz=929) 0.10 K/ L 0.04-0.36 BASOPHILS ABSOLUTE COUNT (BEAKER) (test vvso=235) 0.04 K/ L 0.01-0.08 IMMATURE GRANULOCYTES-RELATIVE PERCENT (BEAKER) (test pdvk=4140) 1 % 0-1 BASIC METABOLIC [id number] 07:29:00* Test Item Value Reference Range Comments SODIUM (BEAKER) (test bemb=927) 141 meq/L 136-145 POTASSIUM (BEAKER) (test mpol=189) 3.5 meq/L 3.5-5.1 CHLORIDE (BEAKER) (test crsm=251) 107 meq/L 98-107 CO2 (BEAKER) (test yonh=234) 26 meq/L 22-29 BLOOD UREA NITROGEN (BEAKER) (test fsfv=931) 6 mg/dL 7-21 CREATININE (BEAKER) (test vckg=266) 0.56 mg/dL 0.57-1.25 GLUCOSE RANDOM (BEAKER) (test qawl=791) 96 mg/dL 70-105 CALCIUM (BEAKER) (test obnt=939) 8.8 mg/dL 8.4-10.2 EGFR (BEAKER) (test ciam=8332) 164 mL/min/1.73 sq m ESTIMATED GFR IS NOT ACCURATE CREATININE CLEARANCE IN PREDICTING GLOMERULAR FILTRATION RATE. ESTIMATED GFR IS NOT APPLICABLE FOR DIALYSIS PATIENTS. CBC W/PLT COUNT & AUTO [id number] 12:09:00* Test Item Value Reference Range Comments WHITE BLOOD CELL COUNT (BEAKER) (test biee=870) 17.0 K/ L 3.5-10.5 RED BLOOD CELL COUNT (BEAKER) (test sdcp=832) 3.04 M/ L 3.93-5.22 HEMOGLOBIN (BEAKER) (test vuhf=872) 7.2 GM/DL 11.2-15.7 HEMATOCRIT (BEAKER) (test mfmu=440) 23.3 % 34.1-44.9 MEAN CORPUSCULAR VOLUME (BEAKER) (test bhlg=221) 76.6 fL 79.4-94.8 MEAN CORPUSCULAR HEMOGLOBIN (BEAKER) (test iyuw=828) 23.7 pg 25.6-32.2 MEAN CORPUSCULAR HEMOGLOBIN CONC (BEAKER) (test vtra=911) 30.9 GM/DL 32.2-35.5 RED CELL DISTRIBUTION WIDTH (BEAKER) (test cpfq=007) 18.4 % 11.7-14.4 PLATELET COUNT (BEAKER) (test wyow=968) 254 K/CU MM 150-450 MEAN PLATELET VOLUME (BEAKER) (test potk=857) 10.0 fL 9.4-12.3 NUCLEATED RED BLOOD CELLS (BEAKER) (test qmfq=690) 11 /100 WBC 0-0 (CELLAVISION MANUAL DIFF)2018-10-29 12:09:00* Test Item Value Reference Range Comments NEUTROPHILS - REL (CELLAVISION)(BEAKER) (test rzxp=6695) 84 % LYMPHOCYTES - REL (CELLAVISION)(BEAKER) (test oeud=3028) 6 % MONOCYTES - REL (CELLAVISION)(BEAKER) (test ljgw=9990) 7 % EOSINOPHILS - REL (CELLAVISION)(BEAKER) (test vxci=8897) 2 % BASOPHILS - REL (CELLAVISION)(BEAKER) (test qgtt=8599) 1 % NEUTROPHILS - ABS (CELLAVISION)(BEAKER) (test uuuv=4698) 14.28 K/ul 1.56-6.13 LYMPHOCYTES - ABS (CELLAVISION)(BEAKER) (test cjcu=5524) 1.02 K/ul 1.18-3.74 MONOCYTES - ABS (CELLAVISION)(BEAKER) (test jhru=1335) 1.19 K/uL 0.24-0.36 EOSINOPHILS - ABS (CELLAVISION)(BEAKER) (test yxkj=7252) 0.34 K/uL 0.04-0.36 BASOPHILS - ABS (CELLAVISION)(BEAKER) (test panh=6696) 0.17 K/uL 0.01-0.08 TOTAL COUNTED (BEAKER) (test woki=5228) 100 MANUAL NRBC PER 100 CELLS (BEAKER) (test cyzw=1891) 17 /100 WBC 0-0 WBC MORPHOLOGY (BEAKER) (test cims=939) Normal PLT MORPHOLOGY (BEAKER) (test zqie=047) Normal POLYCHROMATOPHILLIC RBCS(BEAKER) (test plqf=406) 2+ moderate ANISOCYTOSIS (BEAKER) (test zwml=525) 2+ moderate TARGET CELLS (BEAKER) (test btsg=096) 2+ moderate SICKLE CELLS (BEAKER) (test jokk=889) 2+ moderate ARTIFACT (CELLAVISION)(BEAKER) (test krui=1322) Present PLATELET CONCENTRATION (CELLAVISION)(BEAKER) (test yahd=1358) Adequate Received comment: User comments: Slide comments: POCT-GLUCOSE [id number] 09:18:00* Test Item Value Reference Range Comments POC-GLUCOSE METER (BEAKER) (test jlyh=8754) 117 mg/dL 70-110 TESTED AT [facility] [address] [place] [id number] BASIC METABOLIC [id number] 06:33:00* Test Item Value Reference Range Comments SODIUM (BEAKER) (test wccb=013) 140 meq/L 136-145 POTASSIUM (BEAKER) (test bibb=206) 3.4 meq/L 3.5-5.1 CHLORIDE (BEAKER) (test bhjm=492) 107 meq/L 98-107 CO2 (BEAKER) (test ysfx=790) 26 meq/L 22-29 BLOOD UREA NITROGEN (BEAKER) (test hsae=096) 4 mg/dL 7-21 CREATININE (BEAKER) (test lsdr=761) 0.53 mg/dL 0.57-1.25 GLUCOSE RANDOM (BEAKER) (test qqww=847) 98 mg/dL 70-105 CALCIUM (BEAKER) (test pazp=333) 8.6 mg/dL 8.4-10.2 EGFR (BEAKER) (test oxjx=3804) 175 mL/min/1.73 sq m ESTIMATED GFR IS NOT ACCURATE CREATININE CLEARANCE IN PREDICTING GLOMERULAR FILTRATION RATE. ESTIMATED GFR IS NOT APPLICABLE FOR DIALYSIS PATIENTS. URINALYSIS W/ REFLEX URINE [id number] 22:14:00* Test Item Value Reference Range Comments COLOR (BEAKER) (test xqay=066) Light Yellow CLARITY (BEAKER) (test gdqh=268) Clear SPECIFIC GRAVITY UA (BEAKER) (test jyqo=644) 1.006 1.001-1.035 PH UA (BEAKER) (test vqkf=388) 6.5 5.0-8.0 PROTEIN UA (BEAKER) (test lcfy=557) Negative Negative GLUCOSE UA (BEAKER) (test weep=374) Negative Negative KETONES UA (BEAKER) (test unfl=484) Negative Negative BILIRUBIN UA (BEAKER) (test dqtr=418) Negative Negative BLOOD UA (BEAKER) (test lbsk=905) Negative Negative NITRITE UA (BEAKER) (test zpca=830) Negative Negative LEUKOCYTE ESTERASE UA (BEAKER) (test ikik=219) Negative Negative UROBILINOGEN UA (BEAKER) (test xeyr=882) 0.2 mg/dL 0.2-1.0 RBC UA (BEAKER) (test mjis=364) < /HPF WBC UA (BEAKER) (test qgao=274) 1 /HPF BACTERIA (BEAKER) (test zbjs=906) Rare SQUAMOUS EPITHELIAL (BEAKER) (test bevg=893) < /HPF SOURCE(BEAKER) (test ybgk=0477) LACTATE DEHYDROGENASE (LDH)2018-10-28 16:07:00* Test Item Value Reference Range Comments LACTATE DEHYDROGENASE (BEAKER) (test fhjd=491) 459 U/L 125-220 HEMOGLOBIN AND [id number] 15:49:00* Test Item Value Reference Range Comments HEMOGLOBIN (BEAKER) (test qgru=603) 6.3 GM/DL 11.2-15.7 HEMATOCRIT (BEAKER) (test dwur=852) 20.7 % 34.1-44.9 CBC W/PLT COUNT & AUTO [id number] 08:12:00* Test Item Value Reference Range Comments WHITE BLOOD CELL COUNT (BEAKER) (test xqtj=605) 17.0 K/ L 3.5-10.5 RED BLOOD CELL COUNT (BEAKER) (test vaju=472) 2.89 M/ L 3.93-5.22 HEMOGLOBIN (BEAKER) (test hzpr=869) 6.7 GM/DL 11.2-15.7 HEMATOCRIT (BEAKER) (test sfta=689) 21.4 % 34.1-44.9 MEAN CORPUSCULAR VOLUME (BEAKER) (test cyad=872) 74.0 fL 79.4-94.8 MEAN CORPUSCULAR HEMOGLOBIN (BEAKER) (test thbu=010) 23.2 pg 25.6-32.2 MEAN CORPUSCULAR HEMOGLOBIN CONC (BEAKER) (test kvue=553) 31.3 GM/DL 32.2-35.5 RED CELL DISTRIBUTION WIDTH (BEAKER) (test fzrc=166) 17.2 % 11.7-14.4 PLATELET COUNT (BEAKER) (test upjr=394) 358 K/CU MM 150-450 MEAN PLATELET VOLUME (BEAKER) (test pehq=668) 9.7 fL 9.4-12.3 NUCLEATED RED BLOOD CELLS (BEAKER) (test fhxl=502) 4 /100 WBC 0-0 (CELLAVISION MANUAL DIFF)2018-10-28 08:12:00* Test Item Value Reference Range Comments NEUTROPHILS - REL (CELLAVISION)(BEAKER) (test wgta=3140) 74 % LYMPHOCYTES - REL (CELLAVISION)(BEAKER) (test dunw=7532) 22 % MONOCYTES - REL (CELLAVISION)(BEAKER) (test qgdo=0992) 3 % BASOPHILS - REL (CELLAVISION)(BEAKER) (test gicx=9012) 1 % NEUTROPHILS - ABS (CELLAVISION)(BEAKER) (test yhib=3138) 12.58 K/ul 1.56-6.13 LYMPHOCYTES - ABS (CELLAVISION)(BEAKER) (test diuo=9262) 3.74 K/ul 1.18-3.74 MONOCYTES - ABS (CELLAVISION)(BEAKER) (test gceb=9796) 0.51 K/uL 0.24-0.36 BASOPHILS - ABS (CELLAVISION)(BEAKER) (test zxxm=2054) 0.17 K/uL 0.01-0.08 TOTAL COUNTED (BEAKER) (test exts=4737) 100 MANUAL NRBC PER 100 CELLS (BEAKER) (test qhpl=4980) 13 /100 WBC 0-0 WBC MORPHOLOGY (BEAKER) (test lfey=322) Normal LARGE PLT(BEAKER) (test qvru=4158) Present POLYCHROMATOPHILLIC RBCS(BEAKER) (test yvny=130) 3+ many HYPOCHROMIA (BEAKER) (test zeof=995) 1+ few ANISOCYTOSIS (BEAKER) (test eini=355) 2+ moderate MICROCYTES (BEAKER) (test ctpc=505) 2+ moderate POIKILOCYTES (BEAKER) (test vyne=495) 1+ few TARGET CELLS (BEAKER) (test qxkd=474) 1+ few SICKLE CELLS (BEAKER) (test upei=007) 1+ few FERNANDO-JOLLY BODIES (BEAKER) (test vtgl=141) 1+ few ARTIFACT (CELLAVISION)(BEAKER) (test cklq=3212) Present PLATELET CONCENTRATION (CELLAVISION)(BEAKER) (test edal=9100) Adequate Received comment: User comments: Slide comments: [...] MDReport Verified Date/Time: 10/28/2018 03:27:11 Reading Location: [address] Reading Room C METABOLIC [id number] 02:23:00* Test Item Value Reference Range Comments SODIUM (BEAKER) (test iblm=027) 144 meq/L 136-145 POTASSIUM (BEAKER) (test xzyn=284) 3.7 meq/L 3.5-5.1 CHLORIDE (BEAKER) (test yxqj=381) 111 meq/L 98-107 CO2 (BEAKER) (test bkqv=746) 23 meq/L 22-29 BLOOD UREA NITROGEN (BEAKER) (test ygpn=745) 8 mg/dL 7-21 CREATININE (BEAKER) (test szrd=885) 0.62 mg/dL 0.57-1.25 GLUCOSE RANDOM (BEAKER) (test ilby=553) 118 mg/dL 70-105 CALCIUM (BEAKER) (test xzah=289) 9.5 mg/dL 8.4-10.2 EGFR (BEAKER) (test hlon=4836) 146 mL/min/1.73 sq m ESTIMATED GFR IS NOT ACCURATE CREATININE CLEARANCE IN PREDICTING GLOMERULAR FILTRATION RATE. ESTIMATED GFR IS NOT APPLICABLE FOR DIALYSIS PATIENTS. RETICULOCYTE [id number] 02:22:00* Test Item Value Reference Range Comments RETICULOCYTE COUNT PCT (BEAKER) (test mdra=770) 11.1 % 0.5-1.7 LACTATE DEHYDROGENASE (LDH)2018-10-25 05:46:00* Test Item Value Reference Range Comments LACTATE DEHYDROGENASE (BEAKER) (test exgm=253) 274 U/L 125-220 RETICULOCYTE [id number] 05:22:00* Test Item Value Reference Range Comments RETICULOCYTE COUNT PCT (BEAKER) (test rlhg=507) 7.2 % 0.5-1.7 CBC (HEMOGRAM ONLY)2018-10-25 05:22:00* Test Item Value Reference Range Comments WHITE BLOOD CELL COUNT (BEAKER) (test fmfw=126) 8.0 K/ L 3.5-10.5 RED BLOOD CELL COUNT (BEAKER) (test iimb=658) 2.80 M/ L 3.93-5.22 HEMOGLOBIN (BEAKER) (test vqiw=794) 6.3 GM/DL 11.2-15.7 HEMATOCRIT (BEAKER) (test ccpb=338) 20.1 % 34.1-44.9 MEAN CORPUSCULAR VOLUME (BEAKER) (test dnzx=096) 71.8 fL 79.4-94.8 MEAN CORPUSCULAR HEMOGLOBIN (BEAKER) (test yull=463) 22.5 pg 25.6-32.2 MEAN CORPUSCULAR HEMOGLOBIN CONC (BEAKER) (test wael=197) 31.3 GM/DL 32.2-35.5 RED CELL DISTRIBUTION WIDTH (BEAKER) (test uslj=439) 16.9 % 11.7-14.4 PLATELET COUNT (BEAKER) (test wjxz=509) 374 K/CU MM 150-450 MEAN PLATELET VOLUME (BEAKER) (test yovt=725) 9.4 fL 9.4-12.3 NUCLEATED RED BLOOD CELLS (BEAKER) (test sdzj=729) 2 /100 WBC 0-0 RAD, CHEST, 1 VIEW, NON [id number] 23:32:00Reason for exam:->concern for acute chest syndromeShould [...] MDReport Verified Date/Time: 10/24/2018 23:32:17 Reading Location: [address] Reading Room ONIN [id number] 22:46:00* Test Item Value Reference Range Comments TROPONIN I (BEAKER) (test tgil=176) < ng/mL 0.00-0.03 Troponin I (TnI) levels must be interpreted in the context of the presenting sym ptoms and the clinical findings. Elevated TnI levels indicate myocardial damage, but are not specific for ischemic heart disease. Elevated TnI levels are seen i n patients with other cardiac conditions (including myocarditis and congestive h eart failure), and slight TnI elevations occur in patients with other conditions , including sepsis, renal failure, acidosis, acute neurological disease, and per sistent tachyarrhythmia.LACTATE DEHYDROGENASE (LDH)2018-10-24 05:28:00* Test Item Value Reference Range Comments LACTATE DEHYDROGENASE (BEAKER) (test enhh=182) 292 U/L 125-220 CBC (HEMOGRAM ONLY)2018-10-24 05:14:00* Test Item Value Reference Range Comments WHITE BLOOD CELL COUNT (BEAKER) (test hats=055) 11.1 K/ L 3.5-10.5 RED BLOOD CELL COUNT (BEAKER) (test zyam=862) 2.86 M/ L 3.93-5.22 HEMOGLOBIN (BEAKER) (test beoh=422) 6.5 GM/DL 11.2-15.7 HEMATOCRIT (BEAKER) (test bley=887) 20.5 % 34.1-44.9 MEAN CORPUSCULAR VOLUME (BEAKER) (test qstd=884) 71.7 fL 79.4-94.8 MEAN CORPUSCULAR HEMOGLOBIN (BEAKER) (test hxeb=393) 22.7 pg 25.6-32.2 MEAN CORPUSCULAR HEMOGLOBIN CONC (BEAKER) (test burh=136) 31.7 GM/DL 32.2-35.5 RED CELL DISTRIBUTION WIDTH (BEAKER) (test jswb=158) 17.1 % 11.7-14.4 PLATELET COUNT (BEAKER) (test snlu=107) 393 K/CU MM 150-450 MEAN PLATELET VOLUME (BEAKER) (test bwzo=250) 9.4 fL 9.4-12.3 NUCLEATED RED BLOOD CELLS (BEAKER) (test rltf=890) 1 /100 WBC 0-0 RETICULOCYTE [id number] 05:14:00* Test Item Value Reference Range Comments RETICULOCYTE COUNT PCT (BEAKER) (test yhwp=751) 9.2 % 0.5-1.7 BLOOD [id number] 01:01:00* Test Item Value Reference Range Comments CULTURE (BEAKER) (test nlah=5689) No growth in 5 days BLOOD [id number] 19:01:00* Test Item Value Reference Range Comments CULTURE (BEAKER) (test pklj=7988) No growth in 5 days RETICULOCYTE [id number] 06:15:00* Test Item Value Reference Range Comments RETICULOCYTE COUNT PCT (BEAKER) (test ohtu=319) 10.0 % 0.5-1.7 LACTATE DEHYDROGENASE (LDH)2018-10-23 06:00:00* Test Item Value Reference Range Comments LACTATE DEHYDROGENASE (BEAKER) (test osjd=589) 296 U/L 125-220 RETICULOCYTE [id number] 06:02:00* Test Item Value Reference Range Comments RETICULOCYTE COUNT PCT (BEAKER) (test symk=707) 9.7 % 0.5-1.7 LACTATE DEHYDROGENASE (LDH)2018-10-22 05:46:00* Test Item Value Reference Range Comments LACTATE DEHYDROGENASE (BEAKER) (test zyix=269) 330 U/L 125-220 CBC W/PLT COUNT & AUTO [id number] 05:31:00* Test Item Value Reference Range Comments WHITE BLOOD CELL COUNT (BEAKER) (test wasi=093) 11.2 K/ L 3.5-10.5 RED BLOOD CELL COUNT (BEAKER) (test csmr=195) 2.85 M/ L 3.93-5.22 HEMOGLOBIN (BEAKER) (test gwzd=552) 6.5 GM/DL 11.2-15.7 HEMATOCRIT (BEAKER) (test mxkf=481) 20.9 % 34.1-44.9 MEAN CORPUSCULAR VOLUME (BEAKER) (test zgll=078) 73.3 fL 79.4-94.8 MEAN CORPUSCULAR HEMOGLOBIN (BEAKER) (test qsjh=320) 22.8 pg 25.6-32.2 MEAN CORPUSCULAR HEMOGLOBIN CONC (BEAKER) (test obbg=869) 31.1 GM/DL 32.2-35.5 RED CELL DISTRIBUTION WIDTH (BEAKER) (test wuit=152) 17.7 % 11.7-14.4 PLATELET COUNT (BEAKER) (test vrui=747) 373 K/CU MM 150-450 MEAN PLATELET VOLUME (BEAKER) (test ijrn=507) 10.0 fL 9.4-12.3 NUCLEATED RED BLOOD CELLS (BEAKER) (test nqth=350) 2 /100 WBC 0-0 NEUTROPHILS RELATIVE PERCENT (BEAKER) (test fvwu=393) 64 % LYMPHOCYTES RELATIVE PERCENT (BEAKER) (test lqmy=079) 23 % MONOCYTES RELATIVE PERCENT (BEAKER) (test rzvx=250) 9 % EOSINOPHILS RELATIVE PERCENT (BEAKER) (test vqbz=420) 3 % BASOPHILS RELATIVE PERCENT (BEAKER) (test sqqf=316) 1 % NEUTROPHILS ABSOLUTE COUNT (BEAKER) (test dtdg=463) 7.19 K/ L 1.56-6.13 LYMPHOCYTES ABSOLUTE COUNT (BEAKER) (test gyfh=386) 2.53 K/ L 1.18-3.74 MONOCYTES ABSOLUTE COUNT (BEAKER) (test ihwm=940) 1.00 K/ L 0.24-0.36 EOSINOPHILS ABSOLUTE COUNT (BEAKER) (test nsbj=863) 0.28 K/ L 0.04-0.36 BASOPHILS ABSOLUTE COUNT (BEAKER) (test zulf=628) 0.11 K/ L 0.01-0.08 IMMATURE GRANULOCYTES-RELATIVE PERCENT (BEAKER) (test rrxx=3545) 0 % 0-1 BLOOD [id number] 07:01:00* Test Item Value Reference Range Comments CULTURE (BEAKER) (test hppj=0721) No growth in 5 days LACTATE DEHYDROGENASE (LDH)2018-10-21 05:48:00* Test Item Value Reference Range Comments LACTATE DEHYDROGENASE (BEAKER) (test tamn=914) 346 U/L 125-220 BASIC METABOLIC [id number] 05:46:00* Test Item Value Reference Range Comments SODIUM (BEAKER) (test bjyv=246) 141 meq/L 136-145 POTASSIUM (BEAKER) (test vuzf=582) 3.8 meq/L 3.5-5.1 Specimen slightly hemolyzed CHLORIDE (BEAKER) (test idie=412) 108 meq/L 98-107 CO2 (BEAKER) (test tcnq=078) 27 meq/L 22-29 BLOOD UREA NITROGEN (BEAKER) (test kufh=936) 2 mg/dL 7-21 CREATININE (BEAKER) (test dxsd=639) 0.54 mg/dL 0.57-1.25 Specimen slightly hemolyzed GLUCOSE RANDOM (BEAKER) (test erzj=745) 100 mg/dL 70-105 CALCIUM (BEAKER) (test alyl=109) 9.3 mg/dL 8.4-10.2 EGFR (BEAKER) (test qwqc=2509) 171 mL/min/1.73 sq m ESTIMATED GFR IS NOT ACCURATE CREATININE CLEARANCE IN PREDICTING GLOMERULAR FILTRATION RATE. ESTIMATED GFR IS NOT APPLICABLE FOR DIALYSIS PATIENTS. RETICULOCYTE [id number] 05:42:00* Test Item Value Reference Range Comments RETICULOCYTE COUNT PCT (BEAKER) (test efhj=250) 7.0 % 0.5-1.7 CBC W/PLT COUNT & AUTO [id number] 05:26:00* Test Item Value Reference Range Comments WHITE BLOOD CELL COUNT (BEAKER) (test lnfo=195) 10.2 K/ L 3.5-10.5 RED BLOOD CELL COUNT (BEAKER) (test pbae=988) 2.71 M/ L 3.93-5.22 HEMOGLOBIN (BEAKER) (test efhb=972) 6.1 GM/DL 11.2-15.7 HEMATOCRIT (BEAKER) (test qsvd=078) 19.7 % 34.1-44.9 MEAN CORPUSCULAR VOLUME (BEAKER) (test uven=234) 72.7 fL 79.4-94.8 MEAN CORPUSCULAR HEMOGLOBIN (BEAKER) (test fusb=465) 22.5 pg 25.6-32.2 MEAN CORPUSCULAR HEMOGLOBIN CONC (BEAKER) (test dern=326) 31.0 GM/DL 32.2-35.5 RED CELL DISTRIBUTION WIDTH (BEAKER) (test nzny=448) 17.1 % 11.7-14.4 PLATELET COUNT (BEAKER) (test ezac=834) 360 K/CU MM 150-450 MEAN PLATELET VOLUME (BEAKER) (test gwhl=006) 10.4 fL 9.4-12.3 NUCLEATED RED BLOOD CELLS (BEAKER) (test tfnl=479) 1 /100 WBC 0-0 NEUTROPHILS RELATIVE PERCENT (BEAKER) (test qvqr=360) 51 % LYMPHOCYTES RELATIVE PERCENT (BEAKER) (test utwn=449) 32 % MONOCYTES RELATIVE PERCENT (BEAKER) (test ntau=480) 13 % EOSINOPHILS RELATIVE PERCENT (BEAKER) (test aerm=163) 3 % BASOPHILS RELATIVE PERCENT (BEAKER) (test xysn=822) 1 % NEUTROPHILS ABSOLUTE COUNT (BEAKER) (test ccco=424) 5.21 K/ L 1.56-6.13 LYMPHOCYTES ABSOLUTE COUNT (BEAKER) (test oxcc=124) 3.27 K/ L 1.18-3.74 MONOCYTES ABSOLUTE COUNT (BEAKER) (test ames=999) 1.29 K/ L 0.24-0.36 EOSINOPHILS ABSOLUTE COUNT (BEAKER) (test cpwx=536) 0.34 K/ L 0.04-0.36 BASOPHILS ABSOLUTE COUNT (BEAKER) (test rqso=808) 0.06 K/ L 0.01-0.08 IMMATURE GRANULOCYTES-RELATIVE PERCENT (BEAKER) (test uybr=5544) 1 % 0-1 BASIC METABOLIC [id number] 14:13:00* Test Item Value Reference Range Comments SODIUM (BEAKER) (test oyej=082) 146 meq/L 136-145 POTASSIUM (BEAKER) (test fxmw=738) 3.3 meq/L 3.5-5.1 CHLORIDE (BEAKER) (test ydpc=646) 114 meq/L 98-107 CO2 (BEAKER) (test jjlv=755) 25 meq/L 22-29 BLOOD UREA NITROGEN (BEAKER) (test iafu=858) 2 mg/dL 7-21 CREATININE (BEAKER) (test qurz=185) 0.48 mg/dL 0.57-1.25 GLUCOSE RANDOM (BEAKER) (test kcrf=124) 82 mg/dL 70-105 CALCIUM (BEAKER) (test jzhg=676) 8.5 mg/dL 8.4-10.2 EGFR (BEAKER) (test woad=8784) 196 mL/min/1.73 sq m ESTIMATED GFR IS NOT ACCURATE CREATININE CLEARANCE IN PREDICTING GLOMERULAR FILTRATION RATE. ESTIMATED GFR IS NOT APPLICABLE FOR DIALYSIS PATIENTS. CBC W/PLT COUNT & AUTO [id number] 07:19:00* Test Item Value Reference Range Comments WHITE BLOOD CELL COUNT (BEAKER) (test bkgb=869) 7.7 K/ L 3.5-10.5 RED BLOOD CELL COUNT (BEAKER) (test yjot=206) 2.55 M/ L 3.93-5.22 HEMOGLOBIN (BEAKER) (test mxzp=658) 5.8 GM/DL 11.2-15.7 HEMATOCRIT (BEAKER) (test hnfm=630) 18.5 % 34.1-44.9 MEAN CORPUSCULAR VOLUME (BEAKER) (test bqmm=534) 72.5 fL 79.4-94.8 MEAN CORPUSCULAR HEMOGLOBIN (BEAKER) (test nxln=306) 22.7 pg 25.6-32.2 MEAN CORPUSCULAR HEMOGLOBIN CONC (BEAKER) (test bcfb=969) 31.4 GM/DL 32.2-35.5 RED CELL DISTRIBUTION WIDTH (BEAKER) (test yvdu=642) 16.1 % 11.7-14.4 PLATELET COUNT (BEAKER) (test btsg=969) 279 K/CU MM 150-450 MEAN PLATELET VOLUME (BEAKER) (test eesj=422) 10.3 fL 9.4-12.3 NUCLEATED RED BLOOD CELLS (BEAKER) (test uyjw=095) 1 /100 WBC 0-0 NEUTROPHILS RELATIVE PERCENT (BEAKER) (test yndf=742) 52 % LYMPHOCYTES RELATIVE PERCENT (BEAKER) (test ecqq=804) 29 % MONOCYTES RELATIVE PERCENT (BEAKER) (test zsiw=693) 14 % EOSINOPHILS RELATIVE PERCENT (BEAKER) (test waxh=058) 4 % BASOPHILS RELATIVE PERCENT (BEAKER) (test yqkz=331) 1 % NEUTROPHILS ABSOLUTE COUNT (BEAKER) (test ykcp=087) 3.96 K/ L 1.56-6.13 LYMPHOCYTES ABSOLUTE COUNT (BEAKER) (test nwfg=838) 2.18 K/ L 1.18-3.74 MONOCYTES ABSOLUTE COUNT (BEAKER) (test nhij=013) 1.10 K/ L 0.24-0.36 EOSINOPHILS ABSOLUTE COUNT (BEAKER) (test jjmu=167) 0.31 K/ L 0.04-0.36 BASOPHILS ABSOLUTE COUNT (BEAKER) (test uouw=441) 0.08 K/ L 0.01-0.08 IMMATURE GRANULOCYTES-RELATIVE PERCENT (BEAKER) (test hjmq=5557) 0 % 0-1 LACTATE DEHYDROGENASE (LDH)2018-10-20 07:02:00* Test Item Value Reference Range Comments LACTATE DEHYDROGENASE (BEAKER) (test tpse=856) 302 U/L 125-220 RETICULOCYTE [id number] 09:08:00* Test Item Value Reference Range Comments RETICULOCYTE COUNT PCT (BEAKER) (test fhcu=339) 6.1 % 0.5-1.7 CBC W/PLT COUNT & AUTO [id number] 09:08:00* Test Item Value Reference Range Comments WHITE BLOOD CELL COUNT (BEAKER) (test vdig=475) 8.2 K/ L 3.5-10.5 RED BLOOD CELL COUNT (BEAKER) (test osdz=139) 2.47 M/ L 3.93-5.22 HEMOGLOBIN (BEAKER) (test dijr=891) 5.8 GM/DL 11.2-15.7 HEMATOCRIT (BEAKER) (test tidn=683) 17.9 % 34.1-44.9 MEAN CORPUSCULAR VOLUME (BEAKER) (test qiqu=425) 72.5 fL 79.4-94.8 MEAN CORPUSCULAR HEMOGLOBIN (BEAKER) (test jnpd=504) 23.5 pg 25.6-32.2 MEAN CORPUSCULAR HEMOGLOBIN CONC (BEAKER) (test kowa=204) 32.4 GM/DL 32.2-35.5 RED CELL DISTRIBUTION WIDTH (BEAKER) (test ihbj=611) 15.9 % 11.7-14.4 PLATELET COUNT (BEAKER) (test culw=975) 230 K/CU MM 150-450 MEAN PLATELET VOLUME (BEAKER) (test rcox=841) 10.8 fL 9.4-12.3 NUCLEATED RED BLOOD CELLS (BEAKER) (test fqfw=502) 1 /100 WBC 0-0 NEUTROPHILS RELATIVE PERCENT (BEAKER) (test xgqy=514) 48 % LYMPHOCYTES RELATIVE PERCENT (BEAKER) (test rtak=431) 32 % MONOCYTES RELATIVE PERCENT (BEAKER) (test thgr=988) 16 % EOSINOPHILS RELATIVE PERCENT (BEAKER) (test wfnh=756) 3 % BASOPHILS RELATIVE PERCENT (BEAKER) (test aknw=984) 1 % NEUTROPHILS ABSOLUTE COUNT (BEAKER) (test llot=319) 3.90 K/ L 1.56-6.13 LYMPHOCYTES ABSOLUTE COUNT (BEAKER) (test nfqz=292) 2.60 K/ L 1.18-3.74 MONOCYTES ABSOLUTE COUNT (BEAKER) (test qqnt=764) 1.29 K/ L 0.24-0.36 EOSINOPHILS ABSOLUTE COUNT (BEAKER) (test rqtj=262) 0.28 K/ L 0.04-0.36 BASOPHILS ABSOLUTE COUNT (BEAKER) (test cvjl=612) 0.04 K/ L 0.01-0.08 IMMATURE GRANULOCYTES-RELATIVE PERCENT (BEAKER) (test wakw=4896) 1 % 0-1 LACTATE DEHYDROGENASE (LDH)2018-10-19 07:26:00* Test Item Value Reference Range Comments LACTATE DEHYDROGENASE (BEAKER) (test kbda=849) 281 U/L 125-220 [id number] 20:35:00* Test Item Value Reference Range Comments PROCALCITONIN (BEAKER) (test bnav=1625) < ng/mL <0.05 SEPSIS RISK (ng/mL)Low: 0.05-0.50Intermediate: 0.51-2.00High: > =2.01BASIC METABOLIC [id number] 11:14:00* Test Item Value Reference Range Comments SODIUM (BEAKER) (test bqqa=137) 138 meq/L 136-145 POTASSIUM (BEAKER) (test nsvk=893) 3.7 meq/L 3.5-5.1 CHLORIDE (BEAKER) (test otrt=621) 105 meq/L 98-107 CO2 (BEAKER) (test ymph=440) 25 meq/L 22-29 BLOOD UREA NITROGEN (BEAKER) (test epkr=952) 4 mg/dL 7-21 CREATININE (BEAKER) (test yict=759) 0.54 mg/dL 0.57-1.25 GLUCOSE RANDOM (BEAKER) (test inyj=762) 92 mg/dL 70-105 CALCIUM (BEAKER) (test puov=515) 9.4 mg/dL 8.4-10.2 EGFR (BEAKER) (test vsmk=5965) 171 mL/min/1.73 sq m ESTIMATED GFR IS NOT ACCURATE CREATININE CLEARANCE IN PREDICTING GLOMERULAR FILTRATION RATE. ESTIMATED GFR IS NOT APPLICABLE FOR DIALYSIS PATIENTS. LACTATE DEHYDROGENASE (LDH)2018-10-18 11:14:00* Test Item Value Reference Range Comments LACTATE DEHYDROGENASE (BEAKER) (test clmo=353) 391 U/L 125-220 CBC W/PLT COUNT & AUTO [id number] 11:06:00* Test Item Value Reference Range Comments WHITE BLOOD CELL COUNT (BEAKER) (test nwyy=683) 11.2 K/ L 3.5-10.5 RED BLOOD CELL COUNT (BEAKER) (test jaej=027) 3.02 M/ L 3.93-5.22 HEMOGLOBIN (BEAKER) (test vnae=169) 6.9 GM/DL 11.2-15.7 HEMATOCRIT (BEAKER) (test hfdr=135) 21.7 % 34.1-44.9 MEAN CORPUSCULAR VOLUME (BEAKER) (test uayd=603) 71.9 fL 79.4-94.8 MEAN CORPUSCULAR HEMOGLOBIN (BEAKER) (test ypyr=791) 22.8 pg 25.6-32.2 MEAN CORPUSCULAR HEMOGLOBIN CONC (BEAKER) (test wuzn=963) 31.8 GM/DL 32.2-35.5 RED CELL DISTRIBUTION WIDTH (BEAKER) (test bjja=505) 16.9 % 11.7-14.4 PLATELET COUNT (BEAKER) (test dsrw=930) 262 K/CU MM 150-450 MEAN PLATELET VOLUME (BEAKER) (test ylev=032) 11.2 fL 9.4-12.3 NUCLEATED RED BLOOD CELLS (BEAKER) (test wgoo=078) 1 /100 WBC 0-0 NEUTROPHILS RELATIVE PERCENT (BEAKER) (test hofq=325) 82 % LYMPHOCYTES RELATIVE PERCENT (BEAKER) (test ovyl=451) 6 % MONOCYTES RELATIVE PERCENT (BEAKER) (test etdx=660) 10 % EOSINOPHILS RELATIVE PERCENT (BEAKER) (test fcdy=292) 1 % BASOPHILS RELATIVE PERCENT (BEAKER) (test uqgo=442) 0 % NEUTROPHILS ABSOLUTE COUNT (BEAKER) (test ixvt=192) 9.12 K/ L 1.56-6.13 LYMPHOCYTES ABSOLUTE COUNT (BEAKER) (test jspl=671) 0.69 K/ L 1.18-3.74 MONOCYTES ABSOLUTE COUNT (BEAKER) (test emwv=581) 1.11 K/ L 0.24-0.36 EOSINOPHILS ABSOLUTE COUNT (BEAKER) (test ttpb=019) 0.16 K/ L 0.04-0.36 BASOPHILS ABSOLUTE COUNT (BEAKER) (test ukxj=134) 0.05 K/ L 0.01-0.08 IMMATURE GRANULOCYTES-RELATIVE PERCENT (BEAKER) (test cgzl=8517) 0 % 0-1 RETICULOCYTE [id number] 11:06:00* Test Item Value Reference Range Comments RETICULOCYTE COUNT PCT (BEAKER) (test caio=440) 7.6 % 0.5-1.7 CBC W/PLT COUNT & AUTO [id number] 12:12:00* Test Item Value Reference Range Comments WHITE BLOOD CELL COUNT (BEAKER) (test lasq=275) 11.2 K/ L 3.5-10.5 RED BLOOD CELL COUNT (BEAKER) (test shnv=665) 2.91 M/ L 3.93-5.22 HEMOGLOBIN (BEAKER) (test kbkh=556) 6.9 GM/DL 11.2-15.7 HEMATOCRIT (BEAKER) (test jzso=758) 21.2 % 34.1-44.9 MEAN CORPUSCULAR VOLUME (BEAKER) (test hnxm=891) 72.9 fL 79.4-94.8 MEAN CORPUSCULAR HEMOGLOBIN (BEAKER) (test alij=535) 23.7 pg 25.6-32.2 MEAN CORPUSCULAR HEMOGLOBIN CONC (BEAKER) (test qycf=202) 32.5 GM/DL 32.2-35.5 RED CELL DISTRIBUTION WIDTH (BEAKER) (test fcld=998) 16.9 % 11.7-14.4 PLATELET COUNT (BEAKER) (test qkoc=634) 229 K/CU MM 150-450 MEAN PLATELET VOLUME (BEAKER) (test echo=489) 10.4 fL 9.4-12.3 NUCLEATED RED BLOOD CELLS (BEAKER) (test gnut=422) 2 /100 WBC 0-0 (CELLAVISION MANUAL DIFF)2018-10-17 12:12:00* Test Item Value Reference Range Comments NEUTROPHILS - REL (CELLAVISION)(BEAKER) (test gjnt=8516) 66 % LYMPHOCYTES - REL (CELLAVISION)(BEAKER) (test vzef=1321) 26 % MONOCYTES - REL (CELLAVISION)(BEAKER) (test mkcv=5827) 7 % BANDS - REL (CELLAVISION)(BEAKER) (test lnxj=8059) 1 % 0-10 NEUTROPHILS - ABS (CELLAVISION)(BEAKER) (test zyad=4116) 7.39 K/ul 1.56-6.13 LYMPHOCYTES - ABS (CELLAVISION)(BEAKER) (test ksjy=5448) 2.91 K/ul 1.18-3.74 MONOCYTES - ABS (CELLAVISION)(BEAKER) (test couu=9334) 0.78 K/uL 0.24-0.36 BANDS - ABS (CELLAVISION)(BEAKER) (test wgtc=6643) 0.11 K/uL 0.00-0.80 TOTAL COUNTED (BEAKER) (test webu=1521) 100 MANUAL NRBC PER 100 CELLS (BEAKER) (test yaxd=1343) 3 /100 WBC 0-0 WBC MORPHOLOGY (BEAKER) (test axkd=188) Normal CLUMPED PLATELETS (BEAKER) (test fust=244) Present POLYCHROMATOPHILLIC RBCS(BEAKER) (test tlgg=186) 2+ moderate HYPOCHROMIA (BEAKER) (test abyj=403) 2+ moderate TARGET CELLS (BEAKER) (test dkac=123) 2+ moderate SICKLE CELLS (BEAKER) (test nqkn=507) 1+ few FERNANDO-JOLLY BODIES (BEAKER) (test nhpl=313) 1+ few ARTIFACT (CELLAVISION)(BEAKER) (test cllw=7534) Present PLATELET CONCENTRATION (CELLAVISION)(BEAKER) (test xxtc=2952) Adequate Received comment: User comments: Slide comments: RETICULOCYTE [id number] 09:17:00* Test Item Value Reference Range Comments RETICULOCYTE COUNT PCT (BEAKER) (test kwlm=122) 8.3 % 0.5-1.7 contaminatedThis is a corrected result. Previous result was 8.3 % on 10/17/2018 at 0911 LICENSED CUSTOMS BROKER BASIC METABOLIC [id number] 08:30:00* Test Item Value Reference Range Comments SODIUM (BEAKER) (test crtv=020) 140 meq/L 136-145 POTASSIUM (BEAKER) (test dhqo=716) 3.9 meq/L 3.5-5.1 CHLORIDE (BEAKER) (test jkig=583) 111 meq/L 98-107 CO2 (BEAKER) (test jkhn=819) 23 meq/L 22-29 BLOOD UREA NITROGEN (BEAKER) (test nodb=655) 6 mg/dL 7-21 CREATININE (BEAKER) (test ehez=022) 0.51 mg/dL 0.57-1.25 GLUCOSE RANDOM (BEAKER) (test sbqm=193) 84 mg/dL 70-105 CALCIUM (BEAKER) (test sdtv=998) 8.2 mg/dL 8.4-10.2 EGFR (BEAKER) (test ajle=0564) 183 mL/min/1.73 sq m ESTIMATED GFR IS NOT ACCURATE CREATININE CLEARANCE IN PREDICTING GLOMERULAR FILTRATION RATE. ESTIMATED GFR IS NOT APPLICABLE FOR DIALYSIS PATIENTS. LACTATE DEHYDROGENASE (LDH)2018-10-17 08:21:00* Test Item Value Reference Range Comments LACTATE DEHYDROGENASE (BEAKER) (test cpvy=492) 376 U/L 125-220 RAD, CHEST, 1 VIEW, NON [id number] 23:16:00Reason for exam:->SICKLE CELL PAIN CRISISIs the [...] No evidence of a pneumothorax. Signed: [facility]len Siegel [facility] Verified Date/Time: 10/16/2018 23:16:17 Reading Location: [address] Reading Room IRATORY PANEL [id number] 13:34:00* Test Item Value Reference Range Comments HUMAN METAPNEUMOVIRUS (BEAKER) (test blve=5535) Not detected Not detected, Equivocal RHINOVIRUS (BEAKER) (test tsuw=7767) Not detected Not detected, Equivocal INFLUENZA A (BEAKER) (test arpe=8994) Not detected Not detected, Equivocal INFLUENZA A (NO SUBTYPE) (test ngci=9419) Not detected, Equivocal INFLUENZA A SUBTYPE H1 (BEAKER) (test cccc=6668) Not detected, Equivocal INFLUENZA A SUBTYPE H3 (BEAKER) (test ugvi=6846) Not detected, Equivocal INFLUENZA A SUBTYPE H1-2009 (BEAKER) (test asqi=1945) Not detected, Equivocal INFLUENZA B (BEAKER) (test umqu=2632) Not detected Not detected, Equivocal RESPIRATORY SYNCYTIAL VIRUS (BEAKER) (test vfuf=7915) Not detected Not detected, Equivocal PARAINFLUENZA VIRUS 1 (BEAKER) (test wkns=4210) Not detected Not detected, Equivocal PARAINFLUENZA VIRUS 2 (BEAKER) (test gsux=8415) Not detected Not detected, Equivocal PARAINFLUENZA VIRUS 3 (BEAKER) (test yuej=4510) Not detected Not detected, Equivocal PARAINFLUENZA VIRUS 4 (BEAKER) (test giqp=0164) Not detected Not detected, Equivocal ADENOVIRUS (BEAKER) (test ghrl=5693) Not detected Not detected, Equivocal CORONAVIRUS 229E (BEAKER) (test dpxd=7640) Not detected Not detected, Equivocal CORONAVIRUS HKU1 (BEAKER) (test tqli=1807) Not detected Not detected, Equivocal CORONAVIRUS NL63 (BEAKER) (test cile=0597) Not detected Not detected, Equivocal CORONAVIRUS OC43 (BEAKER) (test vyeh=3163) Not detected Not detected, Equivocal BORDETELLA PERTUSSIS (BEAKER) (test bfqq=0765) Not detected Not detected, Equivocal CHLAMYDOPHILA PNEUMONIAE (BEAKER) (test opcz=7216) Not detected Not detected, Equivocal MYCOPLASMA PNEUMONIAE (BEAKER) (test kzir=8138) Not detected Not detected, Equivocal Other viruses and bacteria not targeted by this PCR panel cannot be excluded; th erefore clinical correlation and follow up of serology, culture results, and ot er molecular studies is required. The results are not intended to be used as the sole means for clinical diagnosis or patient management decisions. This sample was tested at the [facility] using the [employer] rray Respiratory Panel. It is FDA cleared and has been verified and approved by the [facility] for clinical use on nasal swab specim ens. It is not FDA-cleared for use on bronchial wash/lavage samples. However, fo r this sample type, validation was performed and test characteristics were deter mined and approved, by [facility] for clinical use u nder the Clinical Laboratory Improvement Amendments (CLIA) of 1988 requirements. Therefore, FDA clearance is not required. This laboratory is CLIA-certified an d [employer] ([employer])-accredited to perform high complexity t esting.LACTIC ACID, VENOUS, WHOLE [id number] 11:00:00* Test Item Value Reference Range Comments LACTATE BLOOD VENOUS (2) (BEAKER) (test xofh=4118) 0.7 mmol/L 0.5-2.2 [id number] 07:06:00* Test Item Value Reference Range Comments PROCALCITONIN (BEAKER) (test frfo=1593) < ng/mL <0.05 SEPSIS RISK (ng/mL)Low: 0.05-0.50Intermediate: 0.51-2.00High: > =2.01LACTIC ACID, VENOUS, WHOLE [id number] 06:23:00* Test Item Value Reference Range Comments LACTATE BLOOD VENOUS (2) (BEAKER) (test ybet=4682) 0.7 mmol/L 0.5-2.2 URINALYSIS W/ REFLEX URINE [id number] 03:14:00* Test Item Value Reference Range Comments COLOR (BEAKER) (test ugxd=622) Yellow CLARITY (BEAKER) (test spfu=290) Clear SPECIFIC GRAVITY UA (BEAKER) (test ptjz=417) 1.008 1.001-1.035 PH UA (BEAKER) (test clew=969) 7.5 5.0-8.0 PROTEIN UA (BEAKER) (test clwx=172) Negative Negative GLUCOSE UA (BEAKER) (test auxc=303) Negative Negative KETONES UA (BEAKER) (test stdg=892) Negative Negative BILIRUBIN UA (BEAKER) (test gvvi=449) Negative Negative BLOOD UA (BEAKER) (test ioyo=010) Negative Negative NITRITE UA (BEAKER) (test xppn=441) Negative Negative LEUKOCYTE ESTERASE UA (BEAKER) (test kzmj=448) Negative Negative UROBILINOGEN UA (BEAKER) (test bvkt=335) 0.2 mg/dL 0.2-1.0 RBC UA (BEAKER) (test yblx=433) < /HPF WBC UA (BEAKER) (test kylz=739) 1 /HPF BACTERIA (BEAKER) (test npyc=209) Rare MUCUS (BEAKER) (test ecmr=8825) Rare SQUAMOUS EPITHELIAL (BEAKER) (test khju=513) 1 /HPF AMORPHOUS CRYSTALS (BEAKER) (test leom=7557) Rare SOURCE(BEAKER) (test bpjo=8475) SCREEN, [id number] 03:12:00* Test Item Value Reference Range Comments TEST URINE (BEAKER) (test jgds=491) Negative [id number] 02:51:00* Test Item Value Reference Range Comments PHOSPHORUS (BEAKER) (test ivxt=792) 4.4 mg/dL 2.3-4.7 [id number] 02:51:00* Test Item Value Reference Range Comments MAGNESIUM (BEAKER) (test jwzs=408) 2.8 mg/dL 1.6-2.6 COMPREHENSIVE METABOLIC [id number] 02:51:00* Test Item Value Reference Range Comments TOTAL PROTEIN (BEAKER) (test hppi=253) 7.7 gm/dL 6.0-8.3 ALBUMIN (BEAKER) (test lusm=2292) 5.0 g/dL 3.5-5.0 ALKALINE PHOSPHATASE (BEAKER) (test hdja=601) 64 U/L 40-150 BILIRUBIN TOTAL (BEAKER) (test rwnd=255) 1.9 mg/dL 0.2-1.2 SODIUM (BEAKER) (test cewe=392) 140 meq/L 136-145 POTASSIUM (BEAKER) (test qpzy=204) 4.4 meq/L 3.5-5.1 CHLORIDE (BEAKER) (test mvez=630) 108 meq/L 98-107 CO2 (BEAKER) (test wtbf=901) 24 meq/L 22-29 BLOOD UREA NITROGEN (BEAKER) (test sdgv=343) 5 mg/dL 7-21 CREATININE (BEAKER) (test fvce=967) 0.60 mg/dL 0.57-1.25 GLUCOSE RANDOM (BEAKER) (test bgtd=177) 95 mg/dL 70-105 CALCIUM (BEAKER) (test xguo=602) 9.9 mg/dL 8.4-10.2 AST (SGOT) (BEAKER) (test bwdt=130) 30 U/L 5-34 ALT (SGPT) (BEAKER) (test eodn=588) 12 U/L 6-55 EGFR (BEAKER) (test grwi=5327) 152 mL/min/1.73 sq m ESTIMATED GFR IS NOT ACCURATE CREATININE CLEARANCE IN PREDICTING GLOMERULAR FILTRATION RATE. ESTIMATED GFR IS NOT APPLICABLE FOR DIALYSIS PATIENTS. LACTATE DEHYDROGENASE (LDH)2018-10-16 02:51:00* Test Item Value Reference Range Comments LACTATE DEHYDROGENASE (BEAKER) (test hrug=225) 426 U/L 125-220 [id number] 02:39:00* Test Item Value Reference Range Comments PROTIME (BEAKER) (test vtef=280) 14.9 seconds 11.7-14.7 INR (BEAKER) (test elip=767) 1.2 <=5.9 PARTIAL THROMBOPLASTIN TIME (BEAKER) (test lait=141) 28.4 seconds 22.5-36.0 RECOMMENDED COUMADIN/WARFARIN INR THERAPY RANGESSTANDARD DOSE: 2.0 - 3.0 Inclu emma: PROPHYLAXIS for venous thrombosis, systemic embolization; TREATMENT for kim ous thrombosis and/or pulmonary embolus.HIGH RISK: Target INR is 2.5-3.5 for pat ients with mechanical heart valves.POCT-LACTIC ACID, [id number] 02:34:00* Test Item Value Reference Range Comments POC-LACTIC ACID, VENOUS (BEAKER) (test mpuo=0590) 0.5 mmol/L 0.9-1.7 TESTED AT [address] [address] CBC W/PLT COUNT & AUTO [id number] 02:18:00* Test Item Value Reference Range Comments WHITE BLOOD CELL COUNT (BEAKER) (test hsya=014) 18.4 K/ L 3.5-10.5 RED BLOOD CELL COUNT (BEAKER) (test dcbq=196) 3.86 M/ L 3.93-5.22 HEMOGLOBIN (BEAKER) (test qnar=620) 8.8 GM/DL 11.2-15.7 HEMATOCRIT (BEAKER) (test lteb=413) 27.8 % 34.1-44.9 MEAN CORPUSCULAR VOLUME (BEAKER) (test cdmv=606) 72.0 fL 79.4-94.8 MEAN CORPUSCULAR HEMOGLOBIN (BEAKER) (test zfcs=481) 22.8 pg 25.6-32.2 MEAN CORPUSCULAR HEMOGLOBIN CONC (BEAKER) (test usvg=255) 31.7 GM/DL 32.2-35.5 RED CELL DISTRIBUTION WIDTH (BEAKER) (test fexp=273) 16.9 % 11.7-14.4 PLATELET COUNT (BEAKER) (test gopu=905) 314 K/CU MM 150-450 MEAN PLATELET VOLUME (BEAKER) (test cosr=056) 10.3 fL 9.4-12.3 NUCLEATED RED BLOOD CELLS (BEAKER) (test wjvm=999) 3 /100 WBC 0-0 NEUTROPHILS RELATIVE PERCENT (BEAKER) (test fonv=767) 64 % LYMPHOCYTES RELATIVE PERCENT (BEAKER) (test ljle=085) 22 % MONOCYTES RELATIVE PERCENT (BEAKER) (test kibh=331) 10 % EOSINOPHILS RELATIVE PERCENT (BEAKER) (test igzs=497) 1 % BASOPHILS RELATIVE PERCENT (BEAKER) (test gltw=265) 1 % NEUTROPHILS ABSOLUTE COUNT (BEAKER) (test srhn=625) 11.82 K/ L 1.56-6.13 LYMPHOCYTES ABSOLUTE COUNT (BEAKER) (test luhj=521) 3.96 K/ L 1.18-3.74 MONOCYTES ABSOLUTE COUNT (BEAKER) (test ubub=814) 1.91 K/ L 0.24-0.36 EOSINOPHILS ABSOLUTE COUNT (BEAKER) (test ubzp=747) 0.11 K/ L 0.04-0.36 BASOPHILS ABSOLUTE COUNT (BEAKER) (test flxk=681) 0.24 K/ L 0.01-0.08 IMMATURE GRANULOCYTES-RELATIVE PERCENT (BEAKER) (test zsrm=2162) 2 % 0-1 RETICULOCYTE [id number] 02:17:00* Test Item Value Reference Range Comments RETICULOCYTE COUNT PCT (BEAKER) (test bksd=337) 7.8 % 0.5-1.7 CBC W/PLT COUNT & AUTO [id number] 11:50:00* Test Item Value Reference Range Comments WHITE BLOOD CELL COUNT (BEAKER) (test krng=066) 11.1 K/ L 3.5-10.5 RED BLOOD CELL COUNT (BEAKER) (test bhfw=445) 3.10 M/ L 3.93-5.22 HEMOGLOBIN (BEAKER) (test ueos=493) 7.4 GM/DL 11.2-15.7 HEMATOCRIT (BEAKER) (test upqs=966) 23.9 % 34.1-44.9 MEAN CORPUSCULAR VOLUME (BEAKER) (test fsiv=428) 77.1 fL 79.4-94.8 MEAN CORPUSCULAR HEMOGLOBIN (BEAKER) (test gbad=029) 23.9 pg 25.6-32.2 MEAN CORPUSCULAR HEMOGLOBIN CONC (BEAKER) (test whzw=094) 31.0 GM/DL 32.2-35.5 RED CELL DISTRIBUTION WIDTH (BEAKER) (test jvlk=652) 20.2 % 11.7-14.4 PLATELET COUNT (BEAKER) (test feau=294) 263 K/CU MM 150-450 MEAN PLATELET VOLUME (BEAKER) (test ojol=950) 10.0 fL 9.4-12.3 NUCLEATED RED BLOOD CELLS (BEAKER) (test xuza=352) 2 /100 WBC 0-0 (CELLAVISION MANUAL DIFF)2018-08-30 11:50:00* Test Item Value Reference Range Comments NEUTROPHILS - REL (CELLAVISION)(BEAKER) (test toxr=8573) 78 % LYMPHOCYTES - REL (CELLAVISION)(BEAKER) (test wxwa=6710) 12 % MONOCYTES - REL (CELLAVISION)(BEAKER) (test obns=4182) 6 % BASOPHILS - REL (CELLAVISION)(BEAKER) (test jeyv=8294) 2 % MYELOCYTES - REL (CELLAVISION)(BEAKER) (test eofl=4544) 1 % 0-0 BANDS - REL (CELLAVISION)(BEAKER) (test dkeo=1778) 1 % 0-10 NEUTROPHILS - ABS (CELLAVISION)(BEAKER) (test wzbh=3693) 8.66 K/ul 1.56-6.13 LYMPHOCYTES - ABS (CELLAVISION)(BEAKER) (test hrwz=2912) 1.33 K/ul 1.18-3.74 MONOCYTES - ABS (CELLAVISION)(BEAKER) (test vknz=7477) 0.67 K/uL 0.24-0.36 BASOPHILS - ABS (CELLAVISION)(BEAKER) (test ofwp=4348) 0.22 K/uL 0.01-0.08 MYELOCYTES-ABS (CELLAVISION)(BEAKER) (test sayq=0824) 0.11 K/uL 0.00-0.00 BANDS - ABS (CELLAVISION)(BEAKER) (test pqlo=9537) 0.11 K/uL 0.00-0.80 TOTAL COUNTED (BEAKER) (test fztv=5653) 100 MANUAL NRBC PER 100 CELLS (BEAKER) (test uqcr=9748) 6 /100 WBC 0-0 CLUMPED PLATELETS (BEAKER) (test jato=996) Present SMUDGE CELLS (BEAKER) (test ivmg=4286) Present GIANT PLATELETS (BEAKER) (test htem=355) Present POLYCHROMATOPHILLIC RBCS(BEAKER) (test ndsw=828) 3+ many ANISOCYTOSIS (BEAKER) (test ssed=358) 2+ moderate MICROCYTES (BEAKER) (test ofrk=343) 1+ few POIKILOCYTES (BEAKER) (test eede=238) 1+ few TARGET CELLS (BEAKER) (test mawu=111) 1+ few SCHISTOCYTES (BEAKER) (test qlyw=590) 1+ few SICKLE CELLS (BEAKER) (test ttnz=973) 2+ moderate ARTIFACT (CELLAVISION)(BEAKER) (test dwpn=1482) Present PLATELET CONCENTRATION (CELLAVISION)(BEAKER) (test mfzx=3108) Adequate Received comment: User comments: Slide comments: LACTATE DEHYDROGENASE (LDH) 2018-08-30 06:37:00* Test Item Value Reference Range Comments LACTATE DEHYDROGENASE (BEAKER) (test ywui=382) 364 U/L 125-220 BASIC METABOLIC [id number] 06:37:00* Test Item Value Reference Range Comments SODIUM (BEAKER) (test xnlq=643) 141 meq/L 136-145 POTASSIUM (BEAKER) (test owfv=853) 3.6 meq/L 3.5-5.1 CHLORIDE (BEAKER) (test wedf=063) 110 meq/L 98-107 CO2 (BEAKER) (test uehy=199) 27 meq/L 22-29 BLOOD UREA NITROGEN (BEAKER) (test fajd=458) 2 mg/dL 7-21 CREATININE (BEAKER) (test mwjx=280) 0.48 mg/dL 0.57-1.25 GLUCOSE RANDOM (BEAKER) (test gxoj=710) 93 mg/dL 70-105 CALCIUM (BEAKER) (test iufg=945) 8.5 mg/dL 8.4-10.2 EGFR (BEAKER) (test vfmo=1154) 196 mL/min/1.73 sq m ESTIMATED GFR IS NOT ACCURATE CREATININE CLEARANCE IN PREDICTING GLOMERULAR FILTRATION RATE. ESTIMATED GFR IS NOT APPLICABLE FOR DIALYSIS PATIENTS. RESPIRATORY PANEL [id number] 06:29:00* Test Item Value Reference Range Comments HUMAN METAPNEUMOVIRUS (BEAKER) (test ycal=8121) Not detected Not detected, Equivocal RHINOVIRUS (BEAKER) (test dioa=5028) Not detected Not detected, Equivocal INFLUENZA A (BEAKER) (test mfot=1573) Not detected Not detected, Equivocal INFLUENZA A (NO SUBTYPE) (test vrdz=4479) Not detected, Equivocal INFLUENZA A SUBTYPE H1 (BEAKER) (test tpmb=5505) Not detected, Equivocal INFLUENZA A SUBTYPE H3 (BEAKER) (test bgus=0894) Not detected, Equivocal INFLUENZA A SUBTYPE H1-2009 (BEAKER) (test gggc=4390) Not detected, Equivocal INFLUENZA B (BEAKER) (test yoxx=5403) Not detected Not detected, Equivocal RESPIRATORY SYNCYTIAL VIRUS (BEAKER) (test fqbs=2712) Not detected Not detected, Equivocal PARAINFLUENZA VIRUS 1 (BEAKER) (test bbdx=7792) Not detected Not detected, Equivocal PARAINFLUENZA VIRUS 2 (BEAKER) (test hiki=3288) Not detected Not detected, Equivocal PARAINFLUENZA VIRUS 3 (BEAKER) (test emtb=9878) Not detected Not detected, Equivocal PARAINFLUENZA VIRUS 4 (BEAKER) (test beqq=3210) Not detected Not detected, Equivocal ADENOVIRUS (BEAKER) (test wwkx=8498) Not detected Not detected, Equivocal CORONAVIRUS 229E (BEAKER) (test htsb=2831) Not detected Not detected, Equivocal CORONAVIRUS HKU1 (BEAKER) (test dgqn=7126) Not detected Not detected, Equivocal CORONAVIRUS NL63 (BEAKER) (test igqm=6037) Not detected Not detected, Equivocal CORONAVIRUS OC43 (BEAKER) (test whhf=3705) Not detected Not detected, Equivocal BORDETELLA PERTUSSIS (BEAKER) (test jvou=1960) Not detected Not detected, Equivocal CHLAMYDOPHILA PNEUMONIAE (BEAKER) (test xbcn=8466) Not detected Not detected, Equivocal MYCOPLASMA PNEUMONIAE (BEAKER) (test okhc=5690) Not detected Not detected, Equivocal Other viruses and bacteria not targeted by this PCR panel cannot be excluded; th erefore clinical correlation and follow up of serology, culture results, and oth er molecular studies is required. The results are not intended to be used as the sole means for clinical diagnosis or patient management decisions. This sample was tested at the [facility] using the ScyronA rray Respiratory Panel. It is FDA cleared and has been verified and approved by the [facility] for clinical use on nasal swab specim ens. It is not FDA-cleared for use on bronchial wash/lavage samples. However, fo r this sample type, validation was performed and test characteristics were deter mined and approved, by [facility] for clinical use u nder the Clinical Laboratory Improvement Amendments (CLIA) of 1988 requirements. Therefore, FDA clearance is not required. This laboratory is CLIA-certified an d [employer] ([employer])-accredited to perform high complexity t esting.RETICULOCYTE [id number] 06:20:00* Test Item Value Reference Range Comments RETICULOCYTE COUNT PCT (BEAKER) (test hyhv=810) 12.5 % 0.5-1.7 LACTATE DEHYDROGENASE (LDH)2018-08-29 04:45:00* Test Item Value Reference Range Comments LACTATE DEHYDROGENASE (BEAKER) (test fwag=621) 375 U/L 125-220 RETICULOCYTE [id number] 04:27:00* Test Item Value Reference Range Comments RETICULOCYTE COUNT PCT (BEAKER) (test yjrn=376) 10.8 % 0.5-1.7 CBC W/PLT COUNT & AUTO [id number] 04:27:00* Test Item Value Reference Range Comments WHITE BLOOD CELL COUNT (BEAKER) (test knyg=572) 14.4 K/ L 3.5-10.5 RED BLOOD CELL COUNT (BEAKER) (test egrx=615) 3.12 M/ L 3.93-5.22 HEMOGLOBIN (BEAKER) (test uhsv=813) 7.6 GM/DL 11.2-15.7 HEMATOCRIT (BEAKER) (test ylxg=139) 23.3 % 34.1-44.9 MEAN CORPUSCULAR VOLUME (BEAKER) (test ghum=164) 74.7 fL 79.4-94.8 MEAN CORPUSCULAR HEMOGLOBIN (BEAKER) (test iqqi=820) 24.4 pg 25.6-32.2 MEAN CORPUSCULAR HEMOGLOBIN CONC (BEAKER) (test hnfm=989) 32.6 GM/DL 32.2-35.5 RED CELL DISTRIBUTION WIDTH (BEAKER) (test angp=312) 20.0 % 11.7-14.4 PLATELET COUNT (BEAKER) (test qice=612) 279 K/CU MM 150-450 MEAN PLATELET VOLUME (BEAKER) (test qbrp=586) 9.6 fL 9.4-12.3 NUCLEATED RED BLOOD CELLS (BEAKER) (test mgww=397) 2 /100 WBC 0-0 NEUTROPHILS RELATIVE PERCENT (BEAKER) (test rcep=209) 83 % LYMPHOCYTES RELATIVE PERCENT (BEAKER) (test okqe=069) 8 % MONOCYTES RELATIVE PERCENT (BEAKER) (test smeu=136) 9 % EOSINOPHILS RELATIVE PERCENT (BEAKER) (test aqpu=993) 0 % BASOPHILS RELATIVE PERCENT (BEAKER) (test yidy=302) 0 % NEUTROPHILS ABSOLUTE COUNT (BEAKER) (test jrxv=951) 11.90 K/ L 1.56-6.13 LYMPHOCYTES ABSOLUTE COUNT (BEAKER) (test hqmt=794) 1.10 K/ L 1.18-3.74 MONOCYTES ABSOLUTE COUNT (BEAKER) (test phua=908) 1.29 K/ L 0.24-0.36 EOSINOPHILS ABSOLUTE COUNT (BEAKER) (test ncps=898) 0.05 K/ L 0.04-0.36 BASOPHILS ABSOLUTE COUNT (BEAKER) (test ipla=286) 0.03 K/ L 0.01-0.08 IMMATURE GRANULOCYTES-RELATIVE PERCENT (BEAKER) (test orhc=6925) 1 % 0-1 RAD, CHEST, 1 VIEW, NON [id number] 15:11:00Reason for exam:->pt c/o new chest pain, [...] compatible with sickle cell disease. Signed: Muna Hicks MDReport Verified Date/Time: 15:11:43 Reading Location: [facility] Radiology Reading Room W/PLT COUNT & AUTO [id number] 12:07:00* Test Item Value Reference Range Comments WHITE BLOOD CELL COUNT (BEAKER) (test vmaa=886) 10.1 K/ L 3.5-10.5 RED BLOOD CELL COUNT (BEAKER) (test gapn=191) 3.09 M/ L 3.93-5.22 HEMOGLOBIN (BEAKER) (test pfdi=783) 7.4 GM/DL 11.2-15.7 HEMATOCRIT (BEAKER) (test acbj=568) 23.4 % 34.1-44.9 MEAN CORPUSCULAR VOLUME (BEAKER) (test opiu=284) 75.7 fL 79.4-94.8 MEAN CORPUSCULAR HEMOGLOBIN (BEAKER) (test ibyj=352) 23.9 pg 25.6-32.2 MEAN CORPUSCULAR HEMOGLOBIN CONC (BEAKER) (test owyn=564) 31.6 GM/DL 32.2-35.5 RED CELL DISTRIBUTION WIDTH (BEAKER) (test jbzi=233) 19.9 % 11.7-14.4 PLATELET COUNT (BEAKER) (test mlni=967) 267 K/CU MM 150-450 MEAN PLATELET VOLUME (BEAKER) (test cvyf=252) 10.1 fL 9.4-12.3 NUCLEATED RED BLOOD CELLS (BEAKER) (test rkim=997) 4 /100 WBC 0-0 (CELLAVISION MANUAL DIFF)2018-08-28 12:07:00* Test Item Value Reference Range Comments NEUTROPHILS - REL (CELLAVISION)(BEAKER) (test sgst=3037) 65 % LYMPHOCYTES - REL (CELLAVISION)(BEAKER) (test zmvx=8215) 24 % MONOCYTES - REL (CELLAVISION)(BEAKER) (test xfpy=2150) 6 % EOSINOPHILS - REL (CELLAVISION)(BEAKER) (test njvn=1310) 3 % BANDS - REL (CELLAVISION)(BEAKER) (test unfp=9032) 1 % 0-10 ATYPICAL LYMPHOCYTES - REL (CELLAVISION)(BEAKER) (test hnnh=2252) 1 % 0-0 NEUTROPHILS - ABS (CELLAVISION)(BEAKER) (test xakw=4807) 6.57 K/ul 1.56-6.13 LYMPHOCYTES - ABS (CELLAVISION)(BEAKER) (test pkce=2758) 2.42 K/ul 1.18-3.74 MONOCYTES - ABS (CELLAVISION)(BEAKER) (test tycv=6317) 0.61 K/uL 0.24-0.36 EOSINOPHILS - ABS (CELLAVISION)(BEAKER) (test hvli=6760) 0.30 K/uL 0.04-0.36 BANDS - ABS (CELLAVISION)(BEAKER) (test iwbx=2844) 0.10 K/uL 0.00-0.80 ATYPICAL LYMPHOCYTES - ABS (CELLAVISION)(BEAKER) (test icsl=6913) 0.10 K/uL 0.00-0.00 TOTAL COUNTED (BEAKER) (test sdxs=3191) 100 MANUAL NRBC PER 100 CELLS (BEAKER) (test stgk=8993) 12 /100 WBC 0-0 WBC MORPHOLOGY (BEAKER) (test bzwz=728) Normal PLT MORPHOLOGY (BEAKER) (test alch=101) Normal POLYCHROMATOPHILLIC RBCS(BEAKER) (test bjhc=723) 2+ moderate ANISOCYTOSIS (BEAKER) (test nwtj=565) 2+ moderate MICROCYTES (BEAKER) (test xaho=739) 1+ few POIKILOCYTES (BEAKER) (test zztw=784) 1+ few TARGET CELLS (BEAKER) (test vuge=658) 1+ few SICKLE CELLS (BEAKER) (test zcbt=997) 1+ few ARTIFACT (CELLAVISION)(BEAKER) (test wwdp=5718) Present PLATELET CONCENTRATION (CELLAVISION)(BEAKER) (test apjl=3511) Adequate Received comment: User comments: Slide comments: LACTATE DEHYDROGENASE (LDH) 2018-08-28 06:25:00* Test Item Value Reference Range Comments LACTATE DEHYDROGENASE (BEAKER) (test dofi=103) 348 U/L 125-220 BASIC METABOLIC [id number] 06:25:00* Test Item Value Reference Range Comments SODIUM (BEAKER) (test fyjv=679) 141 meq/L 136-145 POTASSIUM (BEAKER) (test odnt=197) 3.8 meq/L 3.5-5.1 CHLORIDE (BEAKER) (test kyyt=586) 108 meq/L 98-107 CO2 (BEAKER) (test jzgc=522) 28 meq/L 22-29 BLOOD UREA NITROGEN (BEAKER) (test nsqs=990) 4 mg/dL 7-21 CREATININE (BEAKER) (test ulyv=920) 0.50 mg/dL 0.57-1.25 GLUCOSE RANDOM (BEAKER) (test twwr=357) 105 mg/dL 70-105 CALCIUM (BEAKER) (test xnte=704) 8.8 mg/dL 8.4-10.2 EGFR (BEAKER) (test gvlx=8661) 187 mL/min/1.73 sq m ESTIMATED GFR IS NOT ACCURATE CREATININE CLEARANCE IN PREDICTING GLOMERULAR FILTRATION RATE. ESTIMATED GFR IS NOT APPLICABLE FOR DIALYSIS PATIENTS. RETICULOCYTE [id number] 06:07:00* Test Item Value Reference Range Comments RETICULOCYTE COUNT PCT (BEAKER) (test bgtx=507) 10.1 % 0.5-1.7 CBC W/PLT COUNT & AUTO [id number] 15:51:00* Test Item Value Reference Range Comments WHITE BLOOD CELL COUNT (BEAKER) (test tged=422) 9.1 K/ L 3.5-10.5 RED BLOOD CELL COUNT (BEAKER) (test bngs=432) 2.35 M/ L 3.93-5.22 HEMOGLOBIN (BEAKER) (test pfpo=853) 5.6 GM/DL 11.2-15.7 HEMATOCRIT (BEAKER) (test iczj=406) 17.8 % 34.1-44.9 MEAN CORPUSCULAR VOLUME (BEAKER) (test zwks=737) 75.7 fL 79.4-94.8 MEAN CORPUSCULAR HEMOGLOBIN (BEAKER) (test ptkr=013) 23.8 pg 25.6-32.2 MEAN CORPUSCULAR HEMOGLOBIN CONC (BEAKER) (test dulb=350) 31.5 GM/DL 32.2-35.5 RED CELL DISTRIBUTION WIDTH (BEAKER) (test wdya=679) 19.4 % 11.7-14.4 PLATELET COUNT (BEAKER) (test chyb=412) 217 K/CU MM 150-450 MEAN PLATELET VOLUME (BEAKER) (test elhx=045) 10.6 fL 9.4-12.3 NUCLEATED RED BLOOD CELLS (BEAKER) (test wbhc=240) 4 /100 WBC 0-0 NEUTROPHILS RELATIVE PERCENT (BEAKER) (test ugrj=621) 43 % LYMPHOCYTES RELATIVE PERCENT (BEAKER) (test yalb=426) 36 % MONOCYTES RELATIVE PERCENT (BEAKER) (test ueir=767) 17 % EOSINOPHILS RELATIVE PERCENT (BEAKER) (test gwbl=574) 4 % BASOPHILS RELATIVE PERCENT (BEAKER) (test ajzi=376) 0 % NEUTROPHILS ABSOLUTE COUNT (BEAKER) (test dfnd=873) 3.91 K/ L 1.56-6.13 LYMPHOCYTES ABSOLUTE COUNT (BEAKER) (test vluz=880) 3.23 K/ L 1.18-3.74 MONOCYTES ABSOLUTE COUNT (BEAKER) (test nlay=553) 1.50 K/ L 0.24-0.36 EOSINOPHILS ABSOLUTE COUNT (BEAKER) (test ocps=657) 0.35 K/ L 0.04-0.36 BASOPHILS ABSOLUTE COUNT (BEAKER) (test dcvn=233) 0.03 K/ L 0.01-0.08 IMMATURE GRANULOCYTES-RELATIVE PERCENT (BEAKER) (test gnnm=7349) 0 % 0-1 RAD, CHEST, 1 VIEW, NON [id number] 14:56:00Reason for exam:->check picc placement Should this be performed at the bedside?->YesFINAL REPORT AP chest. HISTORY: PICC placement COMPARISON: 08/24/2018 IMPRESSION:Left arm PICC present. Tip at lower SVC. Retraction by 1-2 cm may be more optimal. Stable cardiac silhouette. Mild perihilar opacities. Suspect trace left effusion. No pneumothorax. Signed: Calixto Guadarrama MDReport Verified Date/Time: 08/27/2018 14:56:55 Reading Location: [facility] Reading Room (CELLAVISION MANUAL DIFF)2018-08-27 12:43:00* Test Item Value Reference Range Comments NEUTROPHILS - REL (CELLAVISION)(BEAKER) (test fyce=8119) 41 % LYMPHOCYTES - REL (CELLAVISION)(BEAKER) (test ofmo=5445) 41 % MONOCYTES - REL (CELLAVISION)(BEAKER) (test xlop=6264) 11 % EOSINOPHILS - REL (CELLAVISION)(BEAKER) (test fore=2647) 2 % BASOPHILS - REL (CELLAVISION)(BEAKER) (test kseb=3989) 2 % ATYPICAL LYMPHOCYTES - REL (CELLAVISION)(BEAKER) (test axug=0395) 3 % 0-0 NEUTROPHILS - ABS (CELLAVISION)(BEAKER) (test pbdd=1191) 3.77 K/ul 1.56-6.13 LYMPHOCYTES - ABS (CELLAVISION)(BEAKER) (test kvnp=4418) 3.77 K/ul 1.18-3.74 MONOCYTES - ABS (CELLAVISION)(BEAKER) (test ghbv=9977) 1.01 K/uL 0.24-0.36 EOSINOPHILS - ABS (CELLAVISION)(BEAKER) (test hxzv=8668) 0.18 K/uL 0.04-0.36 BASOPHILS - ABS (CELLAVISION)(BEAKER) (test dfbu=1295) 0.18 K/uL 0.01-0.08 ATYPICAL LYMPHOCYTES - ABS (CELLAVISION)(BEAKER) (test gpyw=0633) 0.28 K/uL 0.00-0.00 TOTAL COUNTED (BEAKER) (test ummf=8428) 100 MANUAL NRBC PER 100 CELLS (BEAKER) (test kwug=7434) 8 /100 WBC 0-0 SMUDGE CELLS (BEAKER) (test vkad=3760) Present GIANT PLATELETS (BEAKER) (test dern=417) Present POLYCHROMATOPHILLIC RBCS(BEAKER) (test oxsm=531) 2+ moderate HYPOCHROMIA (BEAKER) (test rrkb=808) 1+ few ANISOCYTOSIS (BEAKER) (test mcor=365) 2+ moderate MICROCYTES (BEAKER) (test bjvl=674) 2+ moderate POIKILOCYTES (BEAKER) (test tfix=152) 1+ few SICKLE CELLS (BEAKER) (test sawd=607) 1+ few ARTIFACT (CELLAVISION)(BEAKER) (test fcjl=5215) Present PLATELET CONCENTRATION (CELLAVISION)(BEAKER) (test zotv=3880) Adequate Received comment: User comments: Slide comments: RETICULOCYTE [id number] 07:26:00* Test Item Value Reference Range Comments RETICULOCYTE COUNT PCT (BEAKER) (test hpki=624) 6.0 % 0.5-1.7 CBC W/PLT COUNT & AUTO [id number] 07:13:00* Test Item Value Reference Range Comments WHITE BLOOD CELL COUNT (BEAKER) (test hhqi=045) 7.9 K/ L 3.5-10.5 RED BLOOD CELL COUNT (BEAKER) (test ehuf=831) 2.58 M/ L 3.93-5.22 HEMOGLOBIN (BEAKER) (test htcq=000) 6.0 GM/DL 11.2-15.7 HEMATOCRIT (BEAKER) (test vmkd=623) 19.3 % 34.1-44.9 MEAN CORPUSCULAR VOLUME (BEAKER) (test dpvh=166) 74.8 fL 79.4-94.8 MEAN CORPUSCULAR HEMOGLOBIN (BEAKER) (test tysi=005) 23.3 pg 25.6-32.2 MEAN CORPUSCULAR HEMOGLOBIN CONC (BEAKER) (test vmup=596) 31.1 GM/DL 32.2-35.5 RED CELL DISTRIBUTION WIDTH (BEAKER) (test sowv=300) 19.4 % 11.7-14.4 PLATELET COUNT (BEAKER) (test ozcp=280) 302 K/CU MM 150-450 MEAN PLATELET VOLUME (BEAKER) (test axdb=509) 9.9 fL 9.4-12.3 NUCLEATED RED BLOOD CELLS (BEAKER) (test tpwe=724) 5 /100 WBC 0-0 NEUTROPHILS RELATIVE PERCENT (BEAKER) (test xqja=007) 45 % LYMPHOCYTES RELATIVE PERCENT (BEAKER) (test slxa=425) 36 % MONOCYTES RELATIVE PERCENT (BEAKER) (test zwzv=562) 15 % EOSINOPHILS RELATIVE PERCENT (BEAKER) (test gizl=656) 3 % BASOPHILS RELATIVE PERCENT (BEAKER) (test guru=736) 1 % NEUTROPHILS ABSOLUTE COUNT (BEAKER) (test zeiv=595) 3.52 K/ L 1.56-6.13 LYMPHOCYTES ABSOLUTE COUNT (BEAKER) (test pphz=713) 2.79 K/ L 1.18-3.74 MONOCYTES ABSOLUTE COUNT (BEAKER) (test zovo=400) 1.19 K/ L 0.24-0.36 EOSINOPHILS ABSOLUTE COUNT (BEAKER) (test rkyd=756) 0.27 K/ L 0.04-0.36 BASOPHILS ABSOLUTE COUNT (BEAKER) (test jzra=121) 0.07 K/ L 0.01-0.08 IMMATURE GRANULOCYTES-RELATIVE PERCENT (BEAKER) (test hcqh=0294) 0 % 0-1 RETICULOCYTE [id number] 07:10:00* Test Item Value Reference Range Comments RETICULOCYTE COUNT PCT (BEAKER) (test obij=443) 6.0 % 0.5-1.7 LACTATE DEHYDROGENASE (LDH)2018-08-26 07:07:00* Test Item Value Reference Range Comments LACTATE DEHYDROGENASE (BEAKER) (test dghs=352) 344 U/L 125-220 CBC W/PLT COUNT & AUTO [id number] 12:35:00* Test Item Value Reference Range Comments WHITE BLOOD CELL COUNT (BEAKER) (test xgwg=675) 9.2 K/ L 3.5-10.5 RED BLOOD CELL COUNT (BEAKER) (test jfix=086) 2.75 M/ L 3.93-5.22 HEMOGLOBIN (BEAKER) (test nolg=653) 6.3 GM/DL 11.2-15.7 HEMATOCRIT (BEAKER) (test tevb=929) 20.6 % 34.1-44.9 MEAN CORPUSCULAR VOLUME (BEAKER) (test edvl=856) 74.9 fL 79.4-94.8 MEAN CORPUSCULAR HEMOGLOBIN (BEAKER) (test xott=017) 22.9 pg 25.6-32.2 MEAN CORPUSCULAR HEMOGLOBIN CONC (BEAKER) (test falx=376) 30.6 GM/DL 32.2-35.5 RED CELL DISTRIBUTION WIDTH (BEAKER) (test vqwc=610) 20.2 % 11.7-14.4 PLATELET COUNT (BEAKER) (test fasp=307) 327 K/CU MM 150-450 MEAN PLATELET VOLUME (BEAKER) (test kwaf=038) 9.8 fL 9.4-12.3 NUCLEATED RED BLOOD CELLS (BEAKER) (test qddx=207) 7 /100 WBC 0-0 (CELLAVISION MANUAL DIFF)2018-08-25 12:35:00* Test Item Value Reference Range Comments NEUTROPHILS - REL (CELLAVISION)(BEAKER) (test hgya=2484) 53 % LYMPHOCYTES - REL (CELLAVISION)(BEAKER) (test qdov=5877) 38 % MONOCYTES - REL (CELLAVISION)(BEAKER) (test wvod=6299) 5 % EOSINOPHILS - REL (CELLAVISION)(BEAKER) (test ekpj=2495) 1 % BASOPHILS - REL (CELLAVISION)(BEAKER) (test hgka=3595) 3 % NEUTROPHILS - ABS (CELLAVISION)(BEAKER) (test flmf=3453) 4.88 K/ul 1.56-6.13 LYMPHOCYTES - ABS (CELLAVISION)(BEAKER) (test noxd=6751) 3.50 K/ul 1.18-3.74 MONOCYTES - ABS (CELLAVISION)(BEAKER) (test mjfr=2694) 0.46 K/uL 0.24-0.36 EOSINOPHILS - ABS (CELLAVISION)(BEAKER) (test eoni=2713) 0.09 K/uL 0.04-0.36 BASOPHILS - ABS (CELLAVISION)(BEAKER) (test nibh=6477) 0.28 K/uL 0.01-0.08 TOTAL COUNTED (BEAKER) (test cwdq=2548) 100 MANUAL NRBC PER 100 CELLS (BEAKER) (test lrld=5183) 13 /100 WBC 0-0 WBC MORPHOLOGY (BEAKER) (test phsg=241) Normal GIANT PLATELETS (BEAKER) (test thxv=027) Present LARGE PLT(BEAKER) (test zxrl=3271) Present POLYCHROMATOPHILLIC RBCS(BEAKER) (test jpnb=044) 2+ moderate HYPOCHROMIA (BEAKER) (test mato=573) 3+ many ANISOCYTOSIS (BEAKER) (test zott=471) 2+ moderate MICROCYTES (BEAKER) (test qxgd=456) 3+ many MACROCYTES (BEAKER) (test enbb=378) 2+ moderate POIKILOCYTES (BEAKER) (test ecvh=187) 3+ many TARGET CELLS (BEAKER) (test jtrk=609) 2+ moderate SCHISTOCYTES (BEAKER) (test xzlr=138) 2+ moderate SICKLE CELLS (BEAKER) (test hptt=463) 3+ many ELLIPTOCYTES (BEAKER) (test bkhm=605) 1+ few OVALOCYTES (BEAKER) (test tryn=477) 1+ few TEAR DROP CELLS (BEAKER) (test yjyx=696) 1+ few ACANTHOCYTES (BEAKER) (test enfl=701) 1+ few ARTIFACT (CELLAVISION)(BEAKER) (test ozfe=8112) Present PLATELET CONCENTRATION (CELLAVISION)(BEAKER) (test fiyo=6657) Adequate Received comment: User comments: Slide comments: LACTATE DEHYDROGENASE (LDH) 2018-08-25 07:29:00* Test Item Value Reference Range Comments LACTATE DEHYDROGENASE (BEAKER) (test vpwj=071) 352 U/L 125-220 BASIC METABOLIC [id number] 07:29:00* Test Item Value Reference Range Comments SODIUM (BEAKER) (test wfkp=269) 143 meq/L 136-145 POTASSIUM (BEAKER) (test ndma=585) 3.8 meq/L 3.5-5.1 CHLORIDE (BEAKER) (test buds=198) 107 meq/L 98-107 CO2 (BEAKER) (test vczg=835) 30 meq/L 22-29 BLOOD UREA NITROGEN (BEAKER) (test jeek=360) 4 mg/dL 7-21 CREATININE (BEAKER) (test thvn=162) 0.51 mg/dL 0.57-1.25 GLUCOSE RANDOM (BEAKER) (test zdqm=687) 106 mg/dL 70-105 CALCIUM (BEAKER) (test jdue=083) 8.8 mg/dL 8.4-10.2 EGFR (BEAKER) (test twdq=5552) 183 mL/min/1.73 sq m ESTIMATED GFR IS NOT ACCURATE CREATININE CLEARANCE IN PREDICTING GLOMERULAR FILTRATION RATE. ESTIMATED GFR IS NOT APPLICABLE FOR DIALYSIS PATIENTS. RETICULOCYTE [id number] 06:29:00* Test Item Value Reference Range Comments RETICULOCYTE COUNT PCT (BEAKER) (test xzaz=646) 8.3 % 0.5-1.7 RAD, CHEST, 1 VIEW, NON [id number] 19:47:00Reason for exam:->chest pain and SOBShould this [...] or pleural effusion is seen. Signed: [facility] Verified Date/Time: 08/24/2018 19:47:53 Reading Location: [id number] Consult Reading Room W/PLT COUNT & AUTO DIFFERENTIAL 2018-08-24 16:55:00* Test Item Value Reference Range Comments WHITE BLOOD CELL COUNT (BEAKER) (test kdgt=186) 13.7 K/ L 3.5-10.5 RED BLOOD CELL COUNT (BEAKER) (test qyvz=472) 2.88 M/ L 3.93-5.22 HEMOGLOBIN (BEAKER) (test cfwn=957) 6.8 GM/DL 11.2-15.7 HEMATOCRIT (BEAKER) (test orav=426) 21.6 % 34.1-44.9 MEAN CORPUSCULAR VOLUME (BEAKER) (test izmh=769) 75.0 fL 79.4-94.8 MEAN CORPUSCULAR HEMOGLOBIN (BEAKER) (test zmoo=307) 23.6 pg 25.6-32.2 MEAN CORPUSCULAR HEMOGLOBIN CONC (BEAKER) (test yhcd=353) 31.5 GM/DL 32.2-35.5 RED CELL DISTRIBUTION WIDTH (BEAKER) (test texk=932) 20.5 % 11.7-14.4 PLATELET COUNT (BEAKER) (test cnlx=608) 343 K/CU MM 150-450 MEAN PLATELET VOLUME (BEAKER) (test rbbx=668) 9.9 fL 9.4-12.3 NUCLEATED RED BLOOD CELLS (BEAKER) (test pcto=280) 5 /100 WBC 0-0 (CELLAVISION MANUAL DIFF)2018-08-24 16:55:00* Test Item Value Reference Range Comments NEUTROPHILS - REL (CELLAVISION)(BEAKER) (test ykoz=8791) 54 % LYMPHOCYTES - REL (CELLAVISION)(BEAKER) (test ycfc=3986) 28 % MONOCYTES - REL (CELLAVISION)(BEAKER) (test mxii=7017) 10 % EOSINOPHILS - REL (CELLAVISION)(BEAKER) (test pisd=2624) 3 % BASOPHILS - REL (CELLAVISION)(BEAKER) (test ujwz=0313) 4 % ATYPICAL LYMPHOCYTES - REL (CELLAVISION)(BEAKER) (test twrt=8966) 1 % 0-0 NEUTROPHILS - ABS (CELLAVISION)(BEAKER) (test gxyb=1402) 7.40 K/ul 1.56-6.13 LYMPHOCYTES - ABS (CELLAVISION)(BEAKER) (test jcjo=7604) 3.84 K/ul 1.18-3.74 MONOCYTES - ABS (CELLAVISION)(BEAKER) (test mzgr=5837) 1.37 K/uL 0.24-0.36 EOSINOPHILS - ABS (CELLAVISION)(BEAKER) (test kdqc=1070) 0.41 K/uL 0.04-0.36 BASOPHILS - ABS (CELLAVISION)(BEAKER) (test rdki=2368) 0.55 K/uL 0.01-0.08 ATYPICAL LYMPHOCYTES - ABS (CELLAVISION)(BEAKER) (test fyvn=5022) 0.14 K/uL 0.00-0.00 TOTAL COUNTED (BEAKER) (test qcxy=1209) 100 MANUAL NRBC PER 100 CELLS (BEAKER) (test nudw=9930) 17 /100 WBC 0-0 WBC MORPHOLOGY (BEAKER) (test jrnx=610) Normal GIANT PLATELETS (BEAKER) (test rtjw=324) Present POLYCHROMATOPHILLIC RBCS(BEAKER) (test llzl=525) 2+ moderate HYPOCHROMIA (BEAKER) (test wqhx=754) 1+ few ANISOCYTOSIS (BEAKER) (test vfab=581) 2+ moderate MICROCYTES (BEAKER) (test aimj=542) 2+ moderate POIKILOCYTES (BEAKER) (test cuzn=319) 1+ few TARGET CELLS (BEAKER) (test epve=407) 1+ few SICKLE CELLS (BEAKER) (test smgt=974) 1+ few SPHEROCYTES (BEAKER) (test tkxe=905) 1+ few ARTIFACT (CELLAVISION)(BEAKER) (test ktcb=5051) Present PLATELET CONCENTRATION (CELLAVISION)(BEAKER) (test ewbf=0976) Adequate Received comment: User comments: Slide comments: LACTATE DEHYDROGENASE (LDH) 2018-08-24 16:41:00* Test Item Value Reference Range Comments LACTATE DEHYDROGENASE (BEAKER) (test wkgo=292) 393 U/L 125-220 RETICULOCYTE [id number] 16:32:00* Test Item Value Reference Range Comments RETICULOCYTE COUNT PCT (BEAKER) (test iffs=043) 8.5 % 0.5-1.7 URINALYSIS W/ REFLEX URINE [id number] 10:37:00* Test Item Value Reference Range Comments COLOR (BEAKER) (test znsx=443) Light Yellow CLARITY (BEAKER) (test dgec=039) Clear SPECIFIC GRAVITY UA (BEAKER) (test sanr=527) 1.006 1.001-1.035 PH UA (BEAKER) (test uiyu=970) 7.5 5.0-8.0 PROTEIN UA (BEAKER) (test kgpp=060) Negative Negative GLUCOSE UA (BEAKER) (test jirm=044) Negative Negative KETONES UA (BEAKER) (test lbzq=256) Negative Negative BILIRUBIN UA (BEAKER) (test efuy=093) Negative Negative BLOOD UA (BEAKER) (test mlhc=761) Negative Negative NITRITE UA (BEAKER) (test qipf=477) Negative Negative LEUKOCYTE ESTERASE UA (BEAKER) (test soxv=599) Negative Negative UROBILINOGEN UA (BEAKER) (test dwqc=527) 0.2 mg/dL 0.2-1.0 RBC UA (BEAKER) (test jebj=710) < /HPF WBC UA (BEAKER) (test bizg=250) 0 /HPF BACTERIA (BEAKER) (test hbcg=959) Occasional SQUAMOUS EPITHELIAL (BEAKER) (test wska=508) < /HPF SOURCE(BEAKER) (test eapf=6643) CBC W/PLT COUNT & AUTO [id number] 07:59:00* Test Item Value Reference Range Comments WHITE BLOOD CELL COUNT (BEAKER) (test tyeb=825) 9.3 K/ L 3.5-10.5 RED BLOOD CELL COUNT (BEAKER) (test qdcb=804) 2.75 M/ L 3.93-5.22 HEMOGLOBIN (BEAKER) (test ogch=313) 6.5 GM/DL 11.2-15.7 HEMATOCRIT (BEAKER) (test ptmy=586) 20.8 % 34.1-44.9 MEAN CORPUSCULAR VOLUME (BEAKER) (test zkup=956) 75.6 fL 79.4-94.8 MEAN CORPUSCULAR HEMOGLOBIN (BEAKER) (test qvvj=876) 23.6 pg 25.6-32.2 MEAN CORPUSCULAR HEMOGLOBIN CONC (BEAKER) (test nzrq=710) 31.3 GM/DL 32.2-35.5 RED CELL DISTRIBUTION WIDTH (BEAKER) (test hyii=656) 20.3 % 11.7-14.4 PLATELET COUNT (BEAKER) (test wgjp=795) 322 K/CU MM 150-450 MEAN PLATELET VOLUME (BEAKER) (test cctf=478) 10.1 fL 9.4-12.3 NUCLEATED RED BLOOD CELLS (BEAKER) (test ngej=460) 5 /100 WBC 0-0 NEUTROPHILS RELATIVE PERCENT (BEAKER) (test dajs=734) 49 % LYMPHOCYTES RELATIVE PERCENT (BEAKER) (test dibx=922) 30 % MONOCYTES RELATIVE PERCENT (BEAKER) (test pkiw=772) 15 % EOSINOPHILS RELATIVE PERCENT (BEAKER) (test taic=671) 4 % BASOPHILS RELATIVE PERCENT (BEAKER) (test iksq=977) 1 % NEUTROPHILS ABSOLUTE COUNT (BEAKER) (test tofi=087) 4.57 K/ L 1.56-6.13 LYMPHOCYTES ABSOLUTE COUNT (BEAKER) (test jvgn=675) 2.78 K/ L 1.18-3.74 MONOCYTES ABSOLUTE COUNT (BEAKER) (test xqls=756) 1.36 K/ L 0.24-0.36 EOSINOPHILS ABSOLUTE COUNT (BEAKER) (test yjae=243) 0.41 K/ L 0.04-0.36 BASOPHILS ABSOLUTE COUNT (BEAKER) (test eazi=693) 0.07 K/ L 0.01-0.08 IMMATURE GRANULOCYTES-RELATIVE PERCENT (BEAKER) (test fvif=1841) 1 % 0-1 RETICULOCYTE [id number] 07:59:00* Test Item Value Reference Range Comments RETICULOCYTE COUNT PCT (BEAKER) (test cpcw=487) 7.6 % 0.5-1.7 LACTATE DEHYDROGENASE (LDH)2018-08-23 07:30:00* Test Item Value Reference Range Comments LACTATE DEHYDROGENASE (BEAKER) (test zqgb=059) 406 U/L 125-220 LACTATE DEHYDROGENASE (LDH)2018-08-22 09:54:00* Test Item Value Reference Range Comments LACTATE DEHYDROGENASE (BEAKER) (test erwm=999) 464 U/L 125-220 HEPATIC FUNCTION [id number] 09:54:00* Test Item Value Reference Range Comments TOTAL PROTEIN (BEAKER) (test nvfn=809) 6.6 gm/dL 6.0-8.3 ALBUMIN (BEAKER) (test isxo=6864) 4.0 g/dL 3.5-5.0 BILIRUBIN TOTAL (BEAKER) (test txqp=038) 1.0 mg/dL 0.2-1.2 BILIRUBIN DIRECT (BEAKER) (test epdm=382) 0.4 mg/dL 0.1-0.5 ALKALINE PHOSPHATASE (BEAKER) (test xmyr=953) 103 U/L 40-150 AST (SGOT) (BEAKER) (test fomw=467) 42 U/L 5-34 ALT (SGPT) (BEAKER) (test larh=214) 19 U/L 6-55 RETICULOCYTE [id number] 07:28:00* Test Item Value Reference Range Comments RETICULOCYTE COUNT PCT (BEAKER) (test sgiw=684) 7.0 % 0.5-1.7 CBC W/PLT COUNT & AUTO [id number] 07:28:00* Test Item Value Reference Range Comments WHITE BLOOD CELL COUNT (BEAKER) (test ifbq=988) 8.6 K/ L 3.5-10.5 RED BLOOD CELL COUNT (BEAKER) (test swsr=086) 2.87 M/ L 3.93-5.22 HEMOGLOBIN (BEAKER) (test beam=938) 6.8 GM/DL 11.2-15.7 HEMATOCRIT (BEAKER) (test lgdm=966) 21.9 % 34.1-44.9 MEAN CORPUSCULAR VOLUME (BEAKER) (test gvir=330) 76.3 fL 79.4-94.8 MEAN CORPUSCULAR HEMOGLOBIN (BEAKER) (test ijrc=118) 23.7 pg 25.6-32.2 MEAN CORPUSCULAR HEMOGLOBIN CONC (BEAKER) (test jtvx=792) 31.1 GM/DL 32.2-35.5 RED CELL DISTRIBUTION WIDTH (BEAKER) (test scnh=989) 20.0 % 11.7-14.4 PLATELET COUNT (BEAKER) (test cmec=705) 279 K/CU MM 150-450 MEAN PLATELET VOLUME (BEAKER) (test kafu=116) 9.9 fL 9.4-12.3 NUCLEATED RED BLOOD CELLS (BEAKER) (test xsuq=412) 4 /100 WBC 0-0 NEUTROPHILS RELATIVE PERCENT (BEAKER) (test kymj=848) 43 % LYMPHOCYTES RELATIVE PERCENT (BEAKER) (test sueh=506) 36 % MONOCYTES RELATIVE PERCENT (BEAKER) (test znbo=896) 14 % EOSINOPHILS RELATIVE PERCENT (BEAKER) (test jgcs=878) 5 % BASOPHILS RELATIVE PERCENT (BEAKER) (test mght=836) 1 % NEUTROPHILS ABSOLUTE COUNT (BEAKER) (test sfyf=254) 3.73 K/ L 1.56-6.13 LYMPHOCYTES ABSOLUTE COUNT (BEAKER) (test cyns=792) 3.14 K/ L 1.18-3.74 MONOCYTES ABSOLUTE COUNT (BEAKER) (test vznn=687) 1.21 K/ L 0.24-0.36 EOSINOPHILS ABSOLUTE COUNT (BEAKER) (test lnid=496) 0.39 K/ L 0.04-0.36 BASOPHILS ABSOLUTE COUNT (BEAKER) (test dymb=161) 0.11 K/ L 0.01-0.08 IMMATURE GRANULOCYTES-RELATIVE PERCENT (BEAKER) (test glri=9274) 1 % 0-1 HEMOGLOBIN AND [id number] 23:40:00* Test Item Value Reference Range Comments HEMOGLOBIN (BEAKER) (test qqph=278) 6.4 GM/DL 11.2-15.7 HEMATOCRIT (BEAKER) (test wcdq=661) 20.4 % 34.1-44.9 BLOOD [id number] 18:01:00* Test Item Value Reference Range Comments CULTURE (BEAKER) (test zpnu=4779) No growth in 5 days BLOOD [id number] 18:01:00* Test Item Value Reference Range Comments CULTURE (BEAKER) (test pifw=1309) No growth in 5 days CBC W/PLT COUNT & AUTO [id number] 07:40:00* Test Item Value Reference Range Comments WHITE BLOOD CELL COUNT (BEAKER) (test oamd=135) 9.9 K/ L 3.5-10.5 RED BLOOD CELL COUNT (BEAKER) (test byss=390) 2.51 M/ L 3.93-5.22 HEMOGLOBIN (BEAKER) (test wzjh=670) 5.9 GM/DL 11.2-15.7 HEMATOCRIT (BEAKER) (test vjrr=089) 18.9 % 34.1-44.9 MEAN CORPUSCULAR VOLUME (BEAKER) (test ivwo=209) 75.3 fL 79.4-94.8 MEAN CORPUSCULAR HEMOGLOBIN (BEAKER) (test ztou=979) 23.5 pg 25.6-32.2 MEAN CORPUSCULAR HEMOGLOBIN CONC (BEAKER) (test xzvg=511) 31.2 GM/DL 32.2-35.5 RED CELL DISTRIBUTION WIDTH (BEAKER) (test qjrc=162) 19.8 % 11.7-14.4 PLATELET COUNT (BEAKER) (test whcu=426) 228 K/CU MM 150-450 MEAN PLATELET VOLUME (BEAKER) (test uqtt=566) 10.1 fL 9.4-12.3 NUCLEATED RED BLOOD CELLS (BEAKER) (test jbvl=691) 2 /100 WBC 0-0 NEUTROPHILS RELATIVE PERCENT (BEAKER) (test kvqw=247) 61 % LYMPHOCYTES RELATIVE PERCENT (BEAKER) (test udef=095) 23 % MONOCYTES RELATIVE PERCENT (BEAKER) (test sjyx=067) 13 % EOSINOPHILS RELATIVE PERCENT (BEAKER) (test dwfg=157) 3 % BASOPHILS RELATIVE PERCENT (BEAKER) (test blhf=263) 1 % NEUTROPHILS ABSOLUTE COUNT (BEAKER) (test kejq=220) 6.02 K/ L 1.56-6.13 LYMPHOCYTES ABSOLUTE COUNT (BEAKER) (test qiim=082) 2.24 K/ L 1.18-3.74 MONOCYTES ABSOLUTE COUNT (BEAKER) (test fxdd=005) 1.24 K/ L 0.24-0.36 EOSINOPHILS ABSOLUTE COUNT (BEAKER) (test auqp=493) 0.34 K/ L 0.04-0.36 BASOPHILS ABSOLUTE COUNT (BEAKER) (test hytx=772) 0.06 K/ L 0.01-0.08 IMMATURE GRANULOCYTES-RELATIVE PERCENT (BEAKER) (test syhb=8962) 0 % 0-1 RETICULOCYTE [id number] 06:58:00* Test Item Value Reference Range Comments RETICULOCYTE COUNT PCT (BEAKER) (test qkvs=501) 4.9 % 0.5-1.7 CBC W/PLT COUNT & AUTO [id number] 05:53:00* Test Item Value Reference Range Comments WHITE BLOOD CELL COUNT (BEAKER) (test avdo=517) 8.2 K/ L 3.5-10.5 RED BLOOD CELL COUNT (BEAKER) (test fdzw=619) 2.84 M/ L 3.93-5.22 HEMOGLOBIN (BEAKER) (test ivvv=808) 6.6 GM/DL 11.2-15.7 HEMATOCRIT (BEAKER) (test casd=286) 21.8 % 34.1-44.9 MEAN CORPUSCULAR VOLUME (BEAKER) (test swyk=862) 76.8 fL 79.4-94.8 MEAN CORPUSCULAR HEMOGLOBIN (BEAKER) (test jwsb=935) 23.2 pg 25.6-32.2 MEAN CORPUSCULAR HEMOGLOBIN CONC (BEAKER) (test oxdv=244) 30.3 GM/DL 32.2-35.5 RED CELL DISTRIBUTION WIDTH (BEAKER) (test eqzf=164) 19.1 % 11.7-14.4 PLATELET COUNT (BEAKER) (test trzq=831) 278 K/CU MM 150-450 MEAN PLATELET VOLUME (BEAKER) (test kbro=590) 10.4 fL 9.4-12.3 NUCLEATED RED BLOOD CELLS (BEAKER) (test csqg=691) 2 /100 WBC 0-0 NEUTROPHILS RELATIVE PERCENT (BEAKER) (test pyzb=329) 48 % LYMPHOCYTES RELATIVE PERCENT (BEAKER) (test nkpk=254) 35 % MONOCYTES RELATIVE PERCENT (BEAKER) (test ntak=799) 12 % EOSINOPHILS RELATIVE PERCENT (BEAKER) (test yvpx=850) 4 % BASOPHILS RELATIVE PERCENT (BEAKER) (test rflk=852) 1 % NEUTROPHILS ABSOLUTE COUNT (BEAKER) (test zifk=356) 3.98 K/ L 1.56-6.13 LYMPHOCYTES ABSOLUTE COUNT (BEAKER) (test lxpv=499) 2.83 K/ L 1.18-3.74 MONOCYTES ABSOLUTE COUNT (BEAKER) (test exoa=537) 1.02 K/ L 0.24-0.36 EOSINOPHILS ABSOLUTE COUNT (BEAKER) (test fdyx=696) 0.30 K/ L 0.04-0.36 BASOPHILS ABSOLUTE COUNT (BEAKER) (test hsvr=350) 0.04 K/ L 0.01-0.08 IMMATURE GRANULOCYTES-RELATIVE PERCENT (BEAKER) (test fwqh=4856) 1 % 0-1 BASIC METABOLIC [id number] 08:47:00* Test Item Value Reference Range Comments SODIUM (BEAKER) (test qtbz=178) 143 meq/L 136-145 POTASSIUM (BEAKER) (test swvk=401) 3.9 meq/L 3.5-5.1 Specimen slightly hemolyzed CHLORIDE (BEAKER) (test rfio=425) 105 meq/L 98-107 CO2 (BEAKER) (test zmmn=320) 29 meq/L 22-29 BLOOD UREA NITROGEN (BEAKER) (test ibuo=850) 4 mg/dL 7-21 CREATININE (BEAKER) (test mick=236) 0.55 mg/dL 0.57-1.25 Specimen slightly hemolyzed GLUCOSE RANDOM (BEAKER) (test twlc=571) 102 mg/dL 70-105 CALCIUM (BEAKER) (test wezv=188) 9.2 mg/dL 8.4-10.2 EGFR (BEAKER) (test fmta=5446) 168 mL/min/1.73 sq m ESTIMATED GFR IS NOT ACCURATE CREATININE CLEARANCE IN PREDICTING GLOMERULAR FILTRATION RATE. ESTIMATED GFR IS NOT APPLICABLE FOR DIALYSIS PATIENTS. RETICULOCYTE [id number] 08:18:00* Test Item Value Reference Range Comments RETICULOCYTE COUNT PCT (BEAKER) (test iqbw=250) 4.5 % 0.5-1.7 CBC W/PLT COUNT & AUTO [id number] 06:56:00* Test Item Value Reference Range Comments WHITE BLOOD CELL COUNT (BEAKER) (test yihm=360) 7.7 K/ L 3.5-10.5 RED BLOOD CELL COUNT (BEAKER) (test ntlq=026) 2.91 M/ L 3.93-5.22 HEMOGLOBIN (BEAKER) (test ncvt=586) 6.8 GM/DL 11.2-15.7 HEMATOCRIT (BEAKER) (test icha=002) 22.0 % 34.1-44.9 MEAN CORPUSCULAR VOLUME (BEAKER) (test bcvd=678) 75.6 fL 79.4-94.8 MEAN CORPUSCULAR HEMOGLOBIN (BEAKER) (test kzlz=973) 23.4 pg 25.6-32.2 MEAN CORPUSCULAR HEMOGLOBIN CONC (BEAKER) (test qtxc=245) 30.9 GM/DL 32.2-35.5 RED CELL DISTRIBUTION WIDTH (BEAKER) (test tqpx=417) 19.0 % 11.7-14.4 PLATELET COUNT (BEAKER) (test uadb=474) 305 K/CU MM 150-450 MEAN PLATELET VOLUME (BEAKER) (test tihq=232) 10.4 fL 9.4-12.3 NUCLEATED RED BLOOD CELLS (BEAKER) (test yqie=921) 3 /100 WBC 0-0 NEUTROPHILS RELATIVE PERCENT (BEAKER) (test gzcn=110) 51 % LYMPHOCYTES RELATIVE PERCENT (BEAKER) (test hejp=545) 31 % MONOCYTES RELATIVE PERCENT (BEAKER) (test cihd=024) 13 % EOSINOPHILS RELATIVE PERCENT (BEAKER) (test qqnb=440) 4 % BASOPHILS RELATIVE PERCENT (BEAKER) (test gstc=055) 1 % NEUTROPHILS ABSOLUTE COUNT (BEAKER) (test jdks=193) 3.93 K/ L 1.56-6.13 LYMPHOCYTES ABSOLUTE COUNT (BEAKER) (test lxhl=905) 2.33 K/ L 1.18-3.74 MONOCYTES ABSOLUTE COUNT (BEAKER) (test qonr=554) 0.98 K/ L 0.24-0.36 EOSINOPHILS ABSOLUTE COUNT (BEAKER) (test qyix=944) 0.29 K/ L 0.04-0.36 BASOPHILS ABSOLUTE COUNT (BEAKER) (test bzha=059) 0.06 K/ L 0.01-0.08 IMMATURE GRANULOCYTES-RELATIVE PERCENT (BEAKER) (test qbpf=1197) 1 % 0-1 URINE [id number] 13:56:00* Test Item Value Reference Range Comments CULTURE (BEAKER) (test irbx=9893) ESCHERICHIA COLI >100,000 col/mL Escherichia coli Amikacin [...] col/mL skin floraCBC W/PLT COUNT & AUTO [id number] 07:55:00 * Test Item Value Reference Range Comments WHITE BLOOD CELL COUNT (BEAKER) (test plmc=423) 8.4 K/ L 3.5-10.5 RED BLOOD CELL COUNT (BEAKER) (test txxz=037) 3.18 M/ L 3.93-5.22 HEMOGLOBIN (BEAKER) (test envf=539) 7.5 GM/DL 11.2-15.7 HEMATOCRIT (BEAKER) (test jmpw=640) 24.2 % 34.1-44.9 MEAN CORPUSCULAR VOLUME (BEAKER) (test xpqb=666) 76.1 fL 79.4-94.8 MEAN CORPUSCULAR HEMOGLOBIN (BEAKER) (test qfft=438) 23.6 pg 25.6-32.2 MEAN CORPUSCULAR HEMOGLOBIN CONC (BEAKER) (test vwqo=521) 31.0 GM/DL 32.2-35.5 RED CELL DISTRIBUTION WIDTH (BEAKER) (test jskf=482) 19.1 % 11.7-14.4 PLATELET COUNT (BEAKER) (test riji=219) 323 K/CU MM 150-450 MEAN PLATELET VOLUME (BEAKER) (test aspm=758) 10.0 fL 9.4-12.3 NUCLEATED RED BLOOD CELLS (BEAKER) (test eaws=594) 5 /100 WBC 0-0 (CELLAVISION MANUAL DIFF)2018-08-18 07:55:00* Test Item Value Reference Range Comments NEUTROPHILS - REL (CELLAVISION)(BEAKER) (test gwhi=5612) 53 % LYMPHOCYTES - REL (CELLAVISION)(BEAKER) (test irip=9266) 41 % MONOCYTES - REL (CELLAVISION)(BEAKER) (test ciiw=9758) 4 % EOSINOPHILS - REL (CELLAVISION)(BEAKER) (test oyks=0163) 1 % BASOPHILS - REL (CELLAVISION)(BEAKER) (test eqxd=6620) 1 % NEUTROPHILS - ABS (CELLAVISION)(BEAKER) (test zemg=9634) 4.45 K/ul 1.56-6.13 LYMPHOCYTES - ABS (CELLAVISION)(BEAKER) (test evre=9304) 3.44 K/ul 1.18-3.74 MONOCYTES - ABS (CELLAVISION)(BEAKER) (test vigq=5099) 0.34 K/uL 0.24-0.36 EOSINOPHILS - ABS (CELLAVISION)(BEAKER) (test ybcr=8205) 0.08 K/uL 0.04-0.36 BASOPHILS - ABS (CELLAVISION)(BEAKER) (test mxyg=4356) 0.08 K/uL 0.01-0.08 TOTAL COUNTED (BEAKER) (test vrna=9564) 100 MANUAL NRBC PER 100 CELLS (BEAKER) (test ewky=4621) 14 /100 WBC 0-0 WBC MORPHOLOGY (BEAKER) (test kgyp=432) Normal LARGE PLT(BEAKER) (test deex=4197) Present POLYCHROMATOPHILLIC RBCS(BEAKER) (test hsem=862) 2+ moderate ANISOCYTOSIS (BEAKER) (test npzc=546) 1+ few MICROCYTES (BEAKER) (test gmzp=911) 1+ few POIKILOCYTES (BEAKER) (test nijn=087) 1+ few SICKLE CELLS (BEAKER) (test iqim=141) 2+ moderate FERNANDO-JOLLY BODIES (BEAKER) (test xuth=537) 1+ few ARTIFACT (CELLAVISION)(BEAKER) (test ffrg=6096) Present PLATELET CONCENTRATION (CELLAVISION)(BEAKER) (test gyel=4133) Adequate Received comment: User comments: Slide comments: BASIC METABOLIC [id number] 07:09:00* Test Item Value Reference Range Comments SODIUM (BEAKER) (test wyxe=919) 142 meq/L 136-145 POTASSIUM (BEAKER) (test etrg=339) 4.0 meq/L 3.5-5.1 CHLORIDE (BEAKER) (test pebo=581) 107 meq/L 98-107 CO2 (BEAKER) (test stor=964) 27 meq/L 22-29 BLOOD UREA NITROGEN (BEAKER) (test atro=002) 4 mg/dL 7-21 CREATININE (BEAKER) (test zqnk=923) 0.53 mg/dL 0.57-1.25 GLUCOSE RANDOM (BEAKER) (test wqbt=787) 97 mg/dL 70-105 CALCIUM (BEAKER) (test glcy=105) 9.1 mg/dL 8.4-10.2 EGFR (BEAKER) (test offt=7548) 175 mL/min/1.73 sq m ESTIMATED GFR IS NOT ACCURATE CREATININE CLEARANCE IN PREDICTING GLOMERULAR FILTRATION RATE. ESTIMATED GFR IS NOT APPLICABLE FOR DIALYSIS PATIENTS. HEMOGLOBIN AND [id number] 13:12:00* Test Item Value Reference Range Comments HEMOGLOBIN (BEAKER) (test ktaz=862) 6.5 GM/DL 11.2-15.7 HEMATOCRIT (BEAKER) (test ttld=226) 21.2 % 34.1-44.9 CBC W/PLT COUNT & AUTO [id number] 08:29:00* Test Item Value Reference Range Comments WHITE BLOOD CELL COUNT (BEAKER) (test rvtn=486) 8.8 K/ L 3.5-10.5 RED BLOOD CELL COUNT (BEAKER) (test dbte=563) 2.64 M/ L 3.93-5.22 HEMOGLOBIN (BEAKER) (test bwoh=233) 6.2 GM/DL 11.2-15.7 HEMATOCRIT (BEAKER) (test crjl=754) 20.2 % 34.1-44.9 MEAN CORPUSCULAR VOLUME (BEAKER) (test ildz=513) 76.5 fL 79.4-94.8 MEAN CORPUSCULAR HEMOGLOBIN (BEAKER) (test nkro=194) 23.5 pg 25.6-32.2 MEAN CORPUSCULAR HEMOGLOBIN CONC (BEAKER) (test qohh=332) 30.7 GM/DL 32.2-35.5 RED CELL DISTRIBUTION WIDTH (BEAKER) (test bopv=532) 20.0 % 11.7-14.4 PLATELET COUNT (BEAKER) (test ixls=063) 272 K/CU MM 150-450 MEAN PLATELET VOLUME (BEAKER) (test byzq=053) 9.8 fL 9.4-12.3 NUCLEATED RED BLOOD CELLS (BEAKER) (test masf=347) 6 /100 WBC 0-0 (CELLAVISION MANUAL DIFF)2018-08-17 08:29:00* Test Item Value Reference Range Comments NEUTROPHILS - REL (CELLAVISION)(BEAKER) (test axrr=9134) 63 % LYMPHOCYTES - REL (CELLAVISION)(BEAKER) (test xmzd=0813) 32 % MONOCYTES - REL (CELLAVISION)(BEAKER) (test kbyp=9958) 1 % EOSINOPHILS - REL (CELLAVISION)(BEAKER) (test xxjy=4576) 3 % BASOPHILS - REL (CELLAVISION)(BEAKER) (test rlwn=1286) 1 % NEUTROPHILS - ABS (CELLAVISION)(BEAKER) (test ggxz=0337) 5.54 K/ul 1.56-6.13 LYMPHOCYTES - ABS (CELLAVISION)(BEAKER) (test vipw=0647) 2.82 K/ul 1.18-3.74 MONOCYTES - ABS (CELLAVISION)(BEAKER) (test vlai=3391) 0.09 K/uL 0.24-0.36 EOSINOPHILS - ABS (CELLAVISION)(BEAKER) (test ysey=1259) 0.26 K/uL 0.04-0.36 BASOPHILS - ABS (CELLAVISION)(BEAKER) (test yveo=4540) 0.09 K/uL 0.01-0.08 TOTAL COUNTED (BEAKER) (test fzbh=5159) 100 MANUAL NRBC PER 100 CELLS (BEAKER) (test aqev=0086) 18 /100 WBC 0-0 WBC MORPHOLOGY (BEAKER) (test vzgb=421) Normal PLT MORPHOLOGY (BEAKER) (test vvcb=711) Normal POLYCHROMATOPHILLIC RBCS(BEAKER) (test gtqd=895) 2+ moderate ANISOCYTOSIS (BEAKER) (test hfsv=361) 2+ moderate TARGET CELLS (BEAKER) (test mkyr=516) 2+ moderate SICKLE CELLS (BEAKER) (test ognj=698) 2+ moderate ARTIFACT (CELLAVISION)(BEAKER) (test pftm=5369) Present PLATELET CONCENTRATION (CELLAVISION)(BEAKER) (test ggfn=2999) Adequate Received comment: User comments: Slide comments: BASIC METABOLIC [id number] 05:57:00* Test Item Value Reference Range Comments SODIUM (BEAKER) (test ijmq=649) 142 meq/L 136-145 POTASSIUM (BEAKER) (test tbld=842) 3.9 meq/L 3.5-5.1 CHLORIDE (BEAKER) (test gvly=439) 109 meq/L 98-107 CO2 (BEAKER) (test tjjj=878) 26 meq/L 22-29 BLOOD UREA NITROGEN (BEAKER) (test dpyu=765) 6 mg/dL 7-21 CREATININE (BEAKER) (test yiff=748) 0.49 mg/dL 0.57-1.25 GLUCOSE RANDOM (BEAKER) (test lsbs=634) 88 mg/dL 70-105 CALCIUM (BEAKER) (test vnni=632) 8.5 mg/dL 8.4-10.2 EGFR (BEAKER) (test gaxc=6579) 191 mL/min/1.73 sq m ESTIMATED GFR IS NOT ACCURATE CREATININE CLEARANCE IN PREDICTING GLOMERULAR FILTRATION RATE. ESTIMATED GFR IS NOT APPLICABLE FOR DIALYSIS PATIENTS. BLOOD [id number] 18:00:00* Test Item Value Reference Range Comments CULTURE (BEAKER) (test muuy=7425) No growth in 5 days URINALYSIS W/ [id number] 15:16:00* Test Item Value Reference Range Comments COLOR (BEAKER) (test cuwl=049) Yellow CLARITY (BEAKER) (test hgur=417) Clear SPECIFIC GRAVITY UA (BEAKER) (test gjms=439) 1.007 1.001-1.035 PH UA (BEAKER) (test vdpf=621) 7.0 5.0-8.0 PROTEIN UA (BEAKER) (test haxv=370) Negative Negative GLUCOSE UA (BEAKER) (test lwmn=973) Negative Negative KETONES UA (BEAKER) (test mwfh=958) Negative Negative BILIRUBIN UA (BEAKER) (test gmwi=093) Negative Negative BLOOD UA (BEAKER) (test rfbf=744) Negative Negative NITRITE UA (BEAKER) (test leps=361) Negative Negative LEUKOCYTE ESTERASE UA (BEAKER) (test brle=192) Negative Negative UROBILINOGEN UA (BEAKER) (test poqm=875) 0.2 mg/dL 0.2-1.0 RBC UA (BEAKER) (test nghj=355) < /HPF WBC UA (BEAKER) (test luzm=612) 0 /HPF BACTERIA (BEAKER) (test eqjv=162) Occasional SQUAMOUS EPITHELIAL (BEAKER) (test zlhd=599) < /HPF SOURCE(BEAKER) (test kqvk=0059) Urine, Voided SCREEN, [id number] 14:55:00* Test Item Value Reference Range Comments TEST URINE (BEAKER) (test wtmt=799) Negative HEPATIC FUNCTION [id number] 14:06:00* Test Item Value Reference Range Comments TOTAL PROTEIN (BEAKER) (test lwov=346) 6.9 gm/dL 6.0-8.3 Specimen slightly hemolyzed ALBUMIN (BEAKER) (test tpva=5954) 4.3 g/dL 3.5-5.0 Specimen slightly hemolyzed BILIRUBIN TOTAL (BEAKER) (test hxor=753) 1.1 mg/dL 0.2-1.2 Specimen slightly hemolyzed BILIRUBIN DIRECT (BEAKER) (test fowe=928) 0.5 mg/dL 0.1-0.5 Specimen slightly hemolyzed ALKALINE PHOSPHATASE (BEAKER) (test lwnl=936) 103 U/L 40-150 AST (SGOT) (BEAKER) (test afxa=751) 37 U/L 5-34 Specimen slightly hemolyzed ALT (SGPT) (BEAKER) (test vozr=622) 31 U/L 6-55 Specimen slightly hemolyzed [id number] 09:43:00* Test Item Value Reference Range Comments FERRITIN (BEAKER) (test xvrn=459) 4414 ng/mL 5-275 RAD, CHEST, 1 VIEW, NON [id number] 08:23:00Reason for exam:->SICKLE CELL PAIN CRISISIs the patient ?->NoFINAL REPORT AP chest HISTORY: Sickle cell pain crisis COMPARISON: 08/11/2018 IMPRESSION:No acute skeletal findings. Skeletal stigmata of sickle cell disease. Heart size upper limits of normal. Bibasilar atelectasis. Lungs otherwise clear. No effusion or pneumothorax. Signed: Calixto Guadarrama MDReport Verified Date/Time: 08/16/2018 08:23:35 Reading Location: [address] Radiology Reading Room , TIBC, % SAT. (WITHOUT FERRITIN)2018-08-16 08:11:00* Test Item Value Reference Range Comments IRON (BEAKER) (test afcp=284) 119 ug/dL 40-160 TOTAL IRON BINDING CAPACITY (BEAKER) (test tcve=114) 154 ug/dL 250-450 IRON % SATURATION (2) (BEAKER) (test jbxj=1883) 77 % 20-55 BASIC METABOLIC [id number] 08:08:00* Test Item Value Reference Range Comments SODIUM (BEAKER) (test pbnm=050) 141 meq/L 136-145 POTASSIUM (BEAKER) (test njgn=162) 3.6 meq/L 3.5-5.1 CHLORIDE (BEAKER) (test yfwy=987) 107 meq/L 98-107 CO2 (BEAKER) (test mydy=302) 22 meq/L 22-29 BLOOD UREA NITROGEN (BEAKER) (test uikc=567) 5 mg/dL 7-21 CREATININE (BEAKER) (test iche=853) 0.52 mg/dL 0.57-1.25 GLUCOSE RANDOM (BEAKER) (test dhym=969) 102 mg/dL 70-105 CALCIUM (BEAKER) (test sdol=452) 9.6 mg/dL 8.4-10.2 EGFR (BEAKER) (test cyke=4297) 179 mL/min/1.73 sq m ESTIMATED GFR IS NOT ACCURATE CREATININE CLEARANCE IN PREDICTING GLOMERULAR FILTRATION RATE. ESTIMATED GFR IS NOT APPLICABLE FOR DIALYSIS PATIENTS. CBC W/PLT COUNT & AUTO [id number] 07:53:00* Test Item Value Reference Range Comments WHITE BLOOD CELL COUNT (BEAKER) (test uggu=594) 16.0 K/ L 3.5-10.5 RED BLOOD CELL COUNT (BEAKER) (test hzkz=074) 3.28 M/ L 3.93-5.22 HEMOGLOBIN (BEAKER) (test rmcc=263) 7.8 GM/DL 11.2-15.7 HEMATOCRIT (BEAKER) (test rwlr=615) 25.0 % 34.1-44.9 MEAN CORPUSCULAR VOLUME (BEAKER) (test mdte=911) 76.2 fL 79.4-94.8 MEAN CORPUSCULAR HEMOGLOBIN (BEAKER) (test okic=851) 23.8 pg 25.6-32.2 MEAN CORPUSCULAR HEMOGLOBIN CONC (BEAKER) (test powv=610) 31.2 GM/DL 32.2-35.5 RED CELL DISTRIBUTION WIDTH (BEAKER) (test hrkq=600) 19.4 % 11.7-14.4 PLATELET COUNT (BEAKER) (test ywwi=179) 302 K/CU MM 150-450 MEAN PLATELET VOLUME (BEAKER) (test ykog=828) 9.8 fL 9.4-12.3 NUCLEATED RED BLOOD CELLS (BEAKER) (test matb=215) 2 /100 WBC 0-0 NEUTROPHILS RELATIVE PERCENT (BEAKER) (test wzlv=812) 76 % LYMPHOCYTES RELATIVE PERCENT (BEAKER) (test yazo=293) 12 % MONOCYTES RELATIVE PERCENT (BEAKER) (test byef=301) 8 % EOSINOPHILS RELATIVE PERCENT (BEAKER) (test kvjr=413) 1 % BASOPHILS RELATIVE PERCENT (BEAKER) (test fjhq=901) 1 % NEUTROPHILS ABSOLUTE COUNT (BEAKER) (test yhks=571) 12.13 K/ L 1.56-6.13 LYMPHOCYTES ABSOLUTE COUNT (BEAKER) (test vjbt=990) 1.84 K/ L 1.18-3.74 MONOCYTES ABSOLUTE COUNT (BEAKER) (test lwvw=667) 1.26 K/ L 0.24-0.36 EOSINOPHILS ABSOLUTE COUNT (BEAKER) (test wfvb=970) 0.22 K/ L 0.04-0.36 BASOPHILS ABSOLUTE COUNT (BEAKER) (test ezui=411) 0.16 K/ L 0.01-0.08 IMMATURE GRANULOCYTES-RELATIVE PERCENT (BEAKER) (test fibh=9785) 3 % 0-1 RETICULOCYTE [id number] 07:52:00* Test Item Value Reference Range Comments RETICULOCYTE COUNT PCT (BEAKER) (test ujpe=270) 6.3 % 0.5-1.7 BASIC METABOLIC [id number] 11:36:00* Test Item Value Reference Range Comments SODIUM (BEAKER) (test abia=878) 145 meq/L 136-145 POTASSIUM (BEAKER) (test bcex=191) 3.9 meq/L 3.5-5.1 Specimen slightly hemolyzed CHLORIDE (BEAKER) (test razn=720) 107 meq/L 98-107 CO2 (BEAKER) (test lmwc=536) 28 meq/L 22-29 BLOOD UREA NITROGEN (BEAKER) (test oaou=484) 7 mg/dL 7-21 CREATININE (BEAKER) (test jgzb=370) 0.54 mg/dL 0.57-1.25 Specimen slightly hemolyzed GLUCOSE RANDOM (BEAKER) (test frfi=657) 78 mg/dL 70-105 CALCIUM (BEAKER) (test fkvt=183) 9.8 mg/dL 8.4-10.2 EGFR (BEAKER) (test kqfj=8973) 171 mL/min/1.73 sq m ESTIMATED GFR IS NOT ACCURATE CREATININE CLEARANCE IN PREDICTING GLOMERULAR FILTRATION RATE. ESTIMATED GFR IS NOT APPLICABLE FOR DIALYSIS PATIENTS. CBC W/PLT COUNT & AUTO [id number] 11:23:00* Test Item Value Reference Range Comments WHITE BLOOD CELL COUNT (BEAKER) (test wneu=499) 7.7 K/ L 3.5-10.5 RED BLOOD CELL COUNT (BEAKER) (test ebzn=893) 3.22 M/ L 3.93-5.22 HEMOGLOBIN (BEAKER) (test ntii=901) 7.8 GM/DL 11.2-15.7 HEMATOCRIT (BEAKER) (test muak=830) 24.6 % 34.1-44.9 MEAN CORPUSCULAR VOLUME (BEAKER) (test dsbv=978) 76.4 fL 79.4-94.8 MEAN CORPUSCULAR HEMOGLOBIN (BEAKER) (test whzx=314) 24.2 pg 25.6-32.2 MEAN CORPUSCULAR HEMOGLOBIN CONC (BEAKER) (test kffh=910) 31.7 GM/DL 32.2-35.5 RED CELL DISTRIBUTION WIDTH (BEAKER) (test ngmr=867) 18.6 % 11.7-14.4 PLATELET COUNT (BEAKER) (test rpcw=558) 321 K/CU MM 150-450 MEAN PLATELET VOLUME (BEAKER) (test ydhd=838) 9.8 fL 9.4-12.3 NUCLEATED RED BLOOD CELLS (BEAKER) (test lfha=333) 1 /100 WBC 0-0 NEUTROPHILS RELATIVE PERCENT (BEAKER) (test sjxe=843) 73 % LYMPHOCYTES RELATIVE PERCENT (BEAKER) (test oyeq=288) 14 % MONOCYTES RELATIVE PERCENT (BEAKER) (test xtuj=048) 10 % EOSINOPHILS RELATIVE PERCENT (BEAKER) (test zotz=874) 2 % BASOPHILS RELATIVE PERCENT (BEAKER) (test grwe=984) 1 % NEUTROPHILS ABSOLUTE COUNT (BEAKER) (test zqda=321) 5.65 K/ L 1.56-6.13 LYMPHOCYTES ABSOLUTE COUNT (BEAKER) (test djdg=411) 1.04 K/ L 1.18-3.74 MONOCYTES ABSOLUTE COUNT (BEAKER) (test hfpp=068) 0.76 K/ L 0.24-0.36 EOSINOPHILS ABSOLUTE COUNT (BEAKER) (test fvlo=662) 0.17 K/ L 0.04-0.36 BASOPHILS ABSOLUTE COUNT (BEAKER) (test jxcv=760) 0.06 K/ L 0.01-0.08 IMMATURE GRANULOCYTES-RELATIVE PERCENT (BEAKER) (test savr=7351) 0 % 0-1 RETICULOCYTE [id number] 11:23:00* Test Item Value Reference Range Comments RETICULOCYTE COUNT PCT (BEAKER) (test urmv=263) 5.4 % 0.5-1.7 BASIC METABOLIC [id number] 06:57:00* Test Item Value Reference Range Comments SODIUM (BEAKER) (test bcwx=620) 141 meq/L 136-145 POTASSIUM (BEAKER) (test vguk=948) 3.9 meq/L 3.5-5.1 CHLORIDE (BEAKER) (test foli=368) 111 meq/L 98-107 CO2 (BEAKER) (test uqtl=457) 24 meq/L 22-29 BLOOD UREA NITROGEN (BEAKER) (test ltye=730) 3 mg/dL 7-21 CREATININE (BEAKER) (test dvib=959) 0.48 mg/dL 0.57-1.25 GLUCOSE RANDOM (BEAKER) (test kfoa=869) 87 mg/dL 70-105 CALCIUM (BEAKER) (test kcrh=882) 8.4 mg/dL 8.4-10.2 EGFR (BEAKER) (test aisy=1666) 198 mL/min/1.73 sq m ESTIMATED GFR IS NOT ACCURATE CREATININE CLEARANCE IN PREDICTING GLOMERULAR FILTRATION RATE. ESTIMATED GFR IS NOT APPLICABLE FOR DIALYSIS PATIENTS. CBC W/PLT COUNT & AUTO [id number] 06:25:00* Test Item Value Reference Range Comments WHITE BLOOD CELL COUNT (BEAKER) (test gvsn=864) 7.6 K/ L 3.5-10.5 RED BLOOD CELL COUNT (BEAKER) (test uinu=800) 2.64 M/ L 3.93-5.22 HEMOGLOBIN (BEAKER) (test bcng=998) 6.3 GM/DL 11.2-15.7 HEMATOCRIT (BEAKER) (test erue=939) 20.2 % 34.1-44.9 MEAN CORPUSCULAR VOLUME (BEAKER) (test sfzu=182) 76.5 fL 79.4-94.8 MEAN CORPUSCULAR HEMOGLOBIN (BEAKER) (test pkvs=244) 23.9 pg 25.6-32.2 MEAN CORPUSCULAR HEMOGLOBIN CONC (BEAKER) (test njkt=091) 31.2 GM/DL 32.2-35.5 RED CELL DISTRIBUTION WIDTH (BEAKER) (test vemj=665) 19.1 % 11.7-14.4 PLATELET COUNT (BEAKER) (test xzvl=206) 250 K/CU MM 150-450 MEAN PLATELET VOLUME (BEAKER) (test oiah=446) 9.5 fL 9.4-12.3 NUCLEATED RED BLOOD CELLS (BEAKER) (test swdu=949) 1 /100 WBC 0-0 NEUTROPHILS RELATIVE PERCENT (BEAKER) (test riqa=474) 54 % LYMPHOCYTES RELATIVE PERCENT (BEAKER) (test pube=158) 31 % MONOCYTES RELATIVE PERCENT (BEAKER) (test krkg=266) 11 % EOSINOPHILS RELATIVE PERCENT (BEAKER) (test dvqh=680) 3 % BASOPHILS RELATIVE PERCENT (BEAKER) (test jvdu=062) 1 % NEUTROPHILS ABSOLUTE COUNT (BEAKER) (test rijv=018) 4.10 K/ L 1.56-6.13 LYMPHOCYTES ABSOLUTE COUNT (BEAKER) (test exwr=410) 2.33 K/ L 1.18-3.74 MONOCYTES ABSOLUTE COUNT (BEAKER) (test wenh=901) 0.85 K/ L 0.24-0.36 EOSINOPHILS ABSOLUTE COUNT (BEAKER) (test vahd=879) 0.26 K/ L 0.04-0.36 BASOPHILS ABSOLUTE COUNT (BEAKER) (test ebgs=590) 0.06 K/ L 0.01-0.08 IMMATURE GRANULOCYTES-RELATIVE PERCENT (BEAKER) (test ydvt=8961) 0 % 0-1 LACTATE DEHYDROGENASE (LDH)2018-08-12 06:46:00* Test Item Value Reference Range Comments LACTATE DEHYDROGENASE (BEAKER) (test elmb=233) 307 U/L 125-220 BASIC METABOLIC [id number] 06:46:00* Test Item Value Reference Range Comments SODIUM (BEAKER) (test emjd=721) 143 meq/L 136-145 POTASSIUM (BEAKER) (test ggmi=652) 3.7 meq/L 3.5-5.1 CHLORIDE (BEAKER) (test hetb=512) 113 meq/L 98-107 CO2 (BEAKER) (test ubox=580) 26 meq/L 22-29 BLOOD UREA NITROGEN (BEAKER) (test bkmm=344) 3 mg/dL 7-21 CREATININE (BEAKER) (test yqfn=039) 0.51 mg/dL 0.57-1.25 GLUCOSE RANDOM (BEAKER) (test hhxu=694) 87 mg/dL 70-105 CALCIUM (BEAKER) (test amoo=303) 8.7 mg/dL 8.4-10.2 EGFR (BEAKER) (test yvdr=6335) 185 mL/min/1.73 sq m ESTIMATED GFR IS NOT ACCURATE CREATININE CLEARANCE IN PREDICTING GLOMERULAR FILTRATION RATE. ESTIMATED GFR IS NOT APPLICABLE FOR DIALYSIS PATIENTS. RETICULOCYTE [id number] 06:28:00* Test Item Value Reference Range Comments RETICULOCYTE COUNT PCT (BEAKER) (test qewu=041) 6.6 % 0.5-1.7 CBC W/PLT COUNT & AUTO [id number] 06:28:00* Test Item Value Reference Range Comments WHITE BLOOD CELL COUNT (BEAKER) (test zcfm=090) 10.0 K/ L 3.5-10.5 RED BLOOD CELL COUNT (BEAKER) (test jncf=590) 2.86 M/ L 3.93-5.22 HEMOGLOBIN (BEAKER) (test xbrp=236) 7.0 GM/DL 11.2-15.7 HEMATOCRIT (BEAKER) (test cggz=590) 21.8 % 34.1-44.9 MEAN CORPUSCULAR VOLUME (BEAKER) (test nejl=834) 76.2 fL 79.4-94.8 MEAN CORPUSCULAR HEMOGLOBIN (BEAKER) (test fknb=486) 24.5 pg 25.6-32.2 MEAN CORPUSCULAR HEMOGLOBIN CONC (BEAKER) (test ehvj=793) 32.1 GM/DL 32.2-35.5 RED CELL DISTRIBUTION WIDTH (BEAKER) (test ennc=047) 19.8 % 11.7-14.4 PLATELET COUNT (BEAKER) (test lcof=796) 280 K/CU MM 150-450 MEAN PLATELET VOLUME (BEAKER) (test gcpp=763) 10.1 fL 9.4-12.3 NUCLEATED RED BLOOD CELLS (BEAKER) (test tibk=974) 1 /100 WBC 0-0 NEUTROPHILS RELATIVE PERCENT (BEAKER) (test hfam=493) 56 % LYMPHOCYTES RELATIVE PERCENT (BEAKER) (test wqux=851) 28 % MONOCYTES RELATIVE PERCENT (BEAKER) (test cllm=320) 13 % EOSINOPHILS RELATIVE PERCENT (BEAKER) (test itfd=901) 2 % BASOPHILS RELATIVE PERCENT (BEAKER) (test oqnx=498) 1 % NEUTROPHILS ABSOLUTE COUNT (BEAKER) (test tjjb=108) 5.60 K/ L 1.56-6.13 LYMPHOCYTES ABSOLUTE COUNT (BEAKER) (test queh=623) 2.81 K/ L 1.18-3.74 MONOCYTES ABSOLUTE COUNT (BEAKER) (test niuw=040) 1.27 K/ L 0.24-0.36 EOSINOPHILS ABSOLUTE COUNT (BEAKER) (test ksvw=450) 0.21 K/ L 0.04-0.36 BASOPHILS ABSOLUTE COUNT (BEAKER) (test cgch=517) 0.08 K/ L 0.01-0.08 IMMATURE GRANULOCYTES-RELATIVE PERCENT (BEAKER) (test mbze=8061) 0 % 0-1 URINALYSIS W/ REFLEX URINE [id number] 01:58:00* Test Item Value Reference Range Comments COLOR (BEAKER) (test htaa=889) Yellow CLARITY (BEAKER) (test fhyn=050) Clear SPECIFIC GRAVITY UA (BEAKER) (test cimg=924) 1.008 1.001-1.035 PH UA (BEAKER) (test cnzj=382) 5.5 5.0-8.0 PROTEIN UA (BEAKER) (test aenh=061) Negative Negative GLUCOSE UA (BEAKER) (test jxky=729) Negative Negative KETONES UA (BEAKER) (test nxai=509) Negative Negative BILIRUBIN UA (BEAKER) (test uzcr=850) Negative Negative BLOOD UA (BEAKER) (test usbt=799) Large Negative NITRITE UA (BEAKER) (test gvlz=126) Negative Negative LEUKOCYTE ESTERASE UA (BEAKER) (test cyab=119) Moderate Negative UROBILINOGEN UA (BEAKER) (test ejge=512) 0.2 mg/dL 0.2-1.0 RBC UA (BEAKER) (test kvyh=170) 135 /HPF WBC UA (BEAKER) (test rqxn=513) 7 /HPF MUCUS (BEAKER) (test uohj=3486) Moderate SQUAMOUS EPITHELIAL (BEAKER) (test clhz=043) < /HPF SOURCE(BEAKER) (test gqoz=9840) SCREEN, [id number] 01:51:00* Test Item Value Reference Range Comments TEST URINE (BEAKER) (test bqcg=131) Negative RAD, CHEST, 2 [id number] 17:30:00Reason for exam:->SICKLE CELL PAIN CRISIS FINAL [...] Ernie Sawyer Verified Date/Time: 17:30:43 Reading Location: [address] [place] ectronically signed by: ERNIE SAWYER M.D. on 08/11/2018 05:30 PM RAD, HIP, 2 VIEWS, [id number] 17:28:00Reason for exam:->SICKLE CELL PAIN CRISISFINAL REPORT [...] clinical concern. Signed: Ernie Sawyer Verified Date/Time: 17:28:11 Reading Location: [address] Reading Room E lectronically signed by: ERNIE SAWYER M.D. on 08/11/2018 05:28 PM POCT-LACTIC ACID, [id number] 16:12:00* Test Item Value Reference Range Comments POC-LACTIC ACID, VENOUS (BEAKER) (test dgqg=4386) 0.4 mmol/L 0.9-1.7 TESTED AT [facility] [address] [facility] [address] [id number] 15:48:00* Test Item Value Reference Range Comments PROTIME (BEAKER) (test jvni=413) 14.2 seconds 11.7-14.7 INR (BEAKER) (test biyg=405) 1.1 <=5.9 PARTIAL THROMBOPLASTIN TIME (BEAKER) (test otfc=584) 20.1 seconds 22.5-36.0 RECOMMENDED COUMADIN/WARFARIN INR THERAPY RANGESSTANDARD DOSE: 2.0 - 3.0 Inclu emma: PROPHYLAXIS for venous thrombosis, systemic embolization; TREATMENT for kim ous thrombosis and/or pulmonary embolus.HIGH RISK: Target INR is 2.5-3.5 for pat ients with mechanical heart valves.[id number] 15:42:00* Test Item Value Reference Range Comments MAGNESIUM (BEAKER) (test xoqw=097) 2.7 mg/dL 1.6-2.6 Specimen moderately hemolyzed [id number] 15:42:00* Test Item Value Reference Range Comments PHOSPHORUS (BEAKER) (test wqyw=392) 4.3 mg/dL 2.3-4.7 Specimen moderately hemolyzed COMPREHENSIVE METABOLIC [id number] 15:42:00* Test Item Value Reference Range Comments TOTAL PROTEIN (BEAKER) (test wclt=622) 7.0 gm/dL 6.0-8.3 Specimen moderately hemolyzed ALBUMIN (BEAKER) (test doem=9568) 4.4 g/dL 3.5-5.0 Specimen moderately hemolyzed ALKALINE PHOSPHATASE (BEAKER) (test twzn=358) 65 U/L 40-150 BILIRUBIN TOTAL (BEAKER) (test cset=482) 1.5 mg/dL 0.2-1.2 Specimen moderately hemolyzed SODIUM (BEAKER) (test wcpx=469) 142 meq/L 136-145 POTASSIUM (BEAKER) (test sipj=012) 4.1 meq/L 3.5-5.1 Specimen moderately hemolyzed CHLORIDE (BEAKER) (test pybt=979) 111 meq/L 98-107 CO2 (BEAKER) (test yaue=260) 22 meq/L 22-29 BLOOD UREA NITROGEN (BEAKER) (test volk=924) 3 mg/dL 7-21 CREATININE (BEAKER) (test cnwa=379) 0.57 mg/dL 0.57-1.25 Specimen moderately hemolyzed GLUCOSE RANDOM (BEAKER) (test ldzr=541) 93 mg/dL 70-105 CALCIUM (BEAKER) (test dvnh=997) 9.3 mg/dL 8.4-10.2 AST (SGOT) (BEAKER) (test ccgx=223) 47 U/L 5-34 Specimen moderately hemolyzed ALT (SGPT) (BEAKER) (test vcen=510) 14 U/L 6-55 Specimen moderately hemolyzed EGFR (BEAKER) (test qapb=6236) 162 mL/min/1.73 sq m ESTIMATED GFR IS NOT ACCURATE CREATININE CLEARANCE IN PREDICTING GLOMERULAR FILTRATION RATE. ESTIMATED GFR IS NOT APPLICABLE FOR DIALYSIS PATIENTS. LACTATE DEHYDROGENASE (LDH)2018-08-11 15:42:00* Test Item Value Reference Range Comments LACTATE DEHYDROGENASE (BEAKER) (test bxcr=823) 542 U/L 125-220 Specimen moderately hemolyzed CBC W/PLT COUNT & AUTO [id number] 15:42:00* Test Item Value Reference Range Comments WHITE BLOOD CELL COUNT (BEAKER) (test blsb=773) 13.5 K/ L 3.5-10.5 RED BLOOD CELL COUNT (BEAKER) (test boew=977) 3.29 M/ L 3.93-5.22 HEMOGLOBIN (BEAKER) (test bzwi=159) 7.9 GM/DL 11.2-15.7 HEMATOCRIT (BEAKER) (test yyvh=690) 25.2 % 34.1-44.9 MEAN CORPUSCULAR VOLUME (BEAKER) (test kzkr=034) 76.6 fL 79.4-94.8 MEAN CORPUSCULAR HEMOGLOBIN (BEAKER) (test oiew=240) 24.0 pg 25.6-32.2 MEAN CORPUSCULAR HEMOGLOBIN CONC (BEAKER) (test zbph=301) 31.3 GM/DL 32.2-35.5 RED CELL DISTRIBUTION WIDTH (BEAKER) (test ccdj=178) 20.6 % 11.7-14.4 PLATELET COUNT (BEAKER) (test ipow=092) 330 K/CU MM 150-450 MEAN PLATELET VOLUME (BEAKER) (test oqmg=805) 9.8 fL 9.4-12.3 NUCLEATED RED BLOOD CELLS (BEAKER) (test dgay=628) 1 /100 WBC 0-0 NEUTROPHILS RELATIVE PERCENT (BEAKER) (test wzby=922) 68 % LYMPHOCYTES RELATIVE PERCENT (BEAKER) (test ushe=229) 20 % MONOCYTES RELATIVE PERCENT (BEAKER) (test rcja=050) 9 % EOSINOPHILS RELATIVE PERCENT (BEAKER) (test nqfm=420) 2 % BASOPHILS RELATIVE PERCENT (BEAKER) (test osig=252) 1 % NEUTROPHILS ABSOLUTE COUNT (BEAKER) (test pgvd=998) 9.08 K/ L 1.56-6.13 LYMPHOCYTES ABSOLUTE COUNT (BEAKER) (test tywd=708) 2.75 K/ L 1.18-3.74 MONOCYTES ABSOLUTE COUNT (BEAKER) (test wlco=966) 1.21 K/ L 0.24-0.36 EOSINOPHILS ABSOLUTE COUNT (BEAKER) (test cghl=931) 0.23 K/ L 0.04-0.36 BASOPHILS ABSOLUTE COUNT (BEAKER) (test jlyq=031) 0.10 K/ L 0.01-0.08 IMMATURE GRANULOCYTES-RELATIVE PERCENT (BEAKER) (test gukf=3658) 1 % 0-1 RETICULOCYTE [id number] 15:42:00* Test Item Value Reference Range Comments RETICULOCYTE COUNT PCT (BEAKER) (test nadu=255) 7.4 % 0.5-1.7 BASIC METABOLIC [id number] 06:53:00* Test Item Value Reference Range Comments SODIUM (BEAKER) (test iksb=257) 143 meq/L 136-145 POTASSIUM (BEAKER) (test dcxt=802) 3.9 meq/L 3.5-5.1 CHLORIDE (BEAKER) (test ksmx=696) 107 meq/L 98-107 CO2 (BEAKER) (test iapd=783) 29 meq/L 22-29 BLOOD UREA NITROGEN (BEAKER) (test bltv=341) 4 mg/dL 7-21 CREATININE (BEAKER) (test fwwg=125) 0.50 mg/dL 0.57-1.25 GLUCOSE RANDOM (BEAKER) (test nuzi=654) 76 mg/dL 70-105 CALCIUM (BEAKER) (test rnmh=910) 9.2 mg/dL 8.4-10.2 EGFR (BEAKER) (test wmoc=0008) 189 mL/min/1.73 sq m ESTIMATED GFR IS NOT ACCURATE CREATININE CLEARANCE IN PREDICTING GLOMERULAR FILTRATION RATE. ESTIMATED GFR IS NOT APPLICABLE FOR DIALYSIS PATIENTS. CBC (HEMOGRAM ONLY)2018-07-05 06:35:00* Test Item Value Reference Range Comments WHITE BLOOD CELL COUNT (BEAKER) (test fzly=198) 5.5 K/ L 3.5-10.5 RED BLOOD CELL COUNT (BEAKER) (test rbxu=930) 3.52 M/ L 3.93-5.22 HEMOGLOBIN (BEAKER) (test wodc=476) 8.4 GM/DL 11.2-15.7 HEMATOCRIT (BEAKER) (test ypdx=859) 27.5 % 34.1-44.9 MEAN CORPUSCULAR VOLUME (BEAKER) (test esno=526) 78.1 fL 79.4-94.8 MEAN CORPUSCULAR HEMOGLOBIN (BEAKER) (test cfhd=614) 23.9 pg 25.6-32.2 MEAN CORPUSCULAR HEMOGLOBIN CONC (BEAKER) (test sdhj=794) 30.5 GM/DL 32.2-35.5 RED CELL DISTRIBUTION WIDTH (BEAKER) (test sqwx=101) 22.8 % 11.7-14.4 PLATELET COUNT (BEAKER) (test fjzp=601) 380 K/CU MM 150-450 MEAN PLATELET VOLUME (BEAKER) (test anes=768) 9.3 fL 9.4-12.3 NUCLEATED RED BLOOD CELLS (BEAKER) (test ldmq=861) 0 /100 WBC 0-0 BASIC METABOLIC [id number] 06:51:00* Test Item Value Reference Range Comments SODIUM (BEAKER) (test kxns=816) 142 meq/L 136-145 POTASSIUM (BEAKER) (test atyh=995) 3.6 meq/L 3.5-5.1 CHLORIDE (BEAKER) (test oxen=612) 111 meq/L 98-107 CO2 (BEAKER) (test edvi=517) 25 meq/L 22-29 BLOOD UREA NITROGEN (BEAKER) (test tttf=703) 3 mg/dL 7-21 CREATININE (BEAKER) (test dopk=394) 0.49 mg/dL 0.57-1.25 GLUCOSE RANDOM (BEAKER) (test dtta=628) 101 mg/dL 70-105 CALCIUM (BEAKER) (test kaki=007) 8.8 mg/dL 8.4-10.2 EGFR (BEAKER) (test rnyx=1738) 193 mL/min/1.73 sq m ESTIMATED GFR IS NOT ACCURATE CREATININE CLEARANCE IN PREDICTING GLOMERULAR FILTRATION RATE. ESTIMATED GFR IS NOT APPLICABLE FOR DIALYSIS PATIENTS. CBC (HEMOGRAM ONLY)2018-07-04 06:08:00* Test Item Value Reference Range Comments WHITE BLOOD CELL COUNT (BEAKER) (test ojra=044) 5.6 K/ L 3.5-10.5 RED BLOOD CELL COUNT (BEAKER) (test fvtx=017) 3.07 M/ L 3.93-5.22 HEMOGLOBIN (BEAKER) (test fjfj=275) 7.4 GM/DL 11.2-15.7 HEMATOCRIT (BEAKER) (test lduj=316) 24.2 % 34.1-44.9 MEAN CORPUSCULAR VOLUME (BEAKER) (test pyul=748) 78.8 fL 79.4-94.8 MEAN CORPUSCULAR HEMOGLOBIN (BEAKER) (test cygi=885) 24.1 pg 25.6-32.2 MEAN CORPUSCULAR HEMOGLOBIN CONC (BEAKER) (test qpjy=650) 30.6 GM/DL 32.2-35.5 RED CELL DISTRIBUTION WIDTH (BEAKER) (test tvlx=651) 22.7 % 11.7-14.4 PLATELET COUNT (BEAKER) (test brfp=473) 333 K/CU MM 150-450 MEAN PLATELET VOLUME (BEAKER) (test dlet=994) 10.3 fL 9.4-12.3 NUCLEATED RED BLOOD CELLS (BEAKER) (test vyqy=119) 0 /100 WBC 0-0 RETICULOCYTE [id number] 13:18:00* Test Item Value Reference Range Comments RETICULOCYTE COUNT PCT (BEAKER) (test yuuc=422) 5.0 % 0.5-1.7 HEMOGLOBIN AND [id number] 12:43:00* Test Item Value Reference Range Comments HEMOGLOBIN (BEAKER) (test nfts=259) 8.0 GM/DL 11.2-15.7 HEMATOCRIT (BEAKER) (test fyzo=251) 25.8 % 34.1-44.9 COMPREHENSIVE METABOLIC [id number] 06:08:00* Test Item Value Reference Range Comments TOTAL PROTEIN (BEAKER) (test chfa=219) 5.7 gm/dL 6.0-8.3 ALBUMIN (BEAKER) (test txwi=6631) 3.4 g/dL 3.5-5.0 ALKALINE PHOSPHATASE (BEAKER) (test ftcl=542) 82 U/L 40-150 BILIRUBIN TOTAL (BEAKER) (test unkt=109) 1.1 mg/dL 0.2-1.2 SODIUM (BEAKER) (test tyck=488) 141 meq/L 136-145 POTASSIUM (BEAKER) (test lrzi=367) 3.4 meq/L 3.5-5.1 CHLORIDE (BEAKER) (test file=273) 110 meq/L 98-107 CO2 (BEAKER) (test epbk=420) 23 meq/L 22-29 BLOOD UREA NITROGEN (BEAKER) (test byot=679) 3 mg/dL 7-21 CREATININE (BEAKER) (test cjxt=786) 0.49 mg/dL 0.57-1.25 GLUCOSE RANDOM (BEAKER) (test dlri=230) 113 mg/dL 70-105 CALCIUM (BEAKER) (test tehz=823) 8.7 mg/dL 8.4-10.2 AST (SGOT) (BEAKER) (test xzgq=797) 22 U/L 5-34 ALT (SGPT) (BEAKER) (test bncv=632) 15 U/L 6-55 EGFR (BEAKER) (test lgci=9923) 193 mL/min/1.73 sq m ESTIMATED GFR IS NOT ACCURATE CREATININE CLEARANCE IN PREDICTING GLOMERULAR FILTRATION RATE. ESTIMATED GFR IS NOT APPLICABLE FOR DIALYSIS PATIENTS. CBC (HEMOGRAM ONLY)2018-07-03 05:57:00* Test Item Value Reference Range Comments WHITE BLOOD CELL COUNT (BEAKER) (test himk=225) 7.4 K/ L 3.5-10.5 RED BLOOD CELL COUNT (BEAKER) (test nuvu=319) 3.29 M/ L 3.93-5.22 HEMOGLOBIN (BEAKER) (test tbke=019) 7.8 GM/DL 11.2-15.7 HEMATOCRIT (BEAKER) (test qhxk=035) 25.4 % 34.1-44.9 MEAN CORPUSCULAR VOLUME (BEAKER) (test hxfl=457) 77.2 fL 79.4-94.8 MEAN CORPUSCULAR HEMOGLOBIN (BEAKER) (test cjws=701) 23.7 pg 25.6-32.2 MEAN CORPUSCULAR HEMOGLOBIN CONC (BEAKER) (test qmui=691) 30.7 GM/DL 32.2-35.5 RED CELL DISTRIBUTION WIDTH (BEAKER) (test kywo=261) 22.5 % 11.7-14.4 PLATELET COUNT (BEAKER) (test fzko=892) 354 K/CU MM 150-450 MEAN PLATELET VOLUME (BEAKER) (test rwik=688) 9.7 fL 9.4-12.3 NUCLEATED RED BLOOD CELLS (BEAKER) (test ukyr=378) 0 /100 WBC 0-0 CBC W/PLT COUNT & AUTO [id number] 12:09:00* Test Item Value Reference Range Comments WHITE BLOOD CELL COUNT (BEAKER) (test tukn=475) 12.1 K/ L 3.5-10.5 RED BLOOD CELL COUNT (BEAKER) (test kiov=380) 4.11 M/ L 3.93-5.22 HEMOGLOBIN (BEAKER) (test fqns=512) 9.8 GM/DL 11.2-15.7 HEMATOCRIT (BEAKER) (test gmqf=197) 32.4 % 34.1-44.9 MEAN CORPUSCULAR VOLUME (BEAKER) (test inis=360) 78.8 fL 79.4-94.8 MEAN CORPUSCULAR HEMOGLOBIN (BEAKER) (test avln=278) 23.8 pg 25.6-32.2 MEAN CORPUSCULAR HEMOGLOBIN CONC (BEAKER) (test jafs=416) 30.2 GM/DL 32.2-35.5 RED CELL DISTRIBUTION WIDTH (BEAKER) (test zukx=198) 22.5 % 11.7-14.4 PLATELET COUNT (BEAKER) (test hduw=159) 334 K/CU MM 150-450 MEAN PLATELET VOLUME (BEAKER) (test kosa=799) 9.8 fL 9.4-12.3 NUCLEATED RED BLOOD CELLS (BEAKER) (test rrup=173) 1 /100 WBC 0-0 (CELLAVISION MANUAL DIFF)2018-07-02 12:09:00* Test Item Value Reference Range Comments NEUTROPHILS - REL (CELLAVISION)(BEAKER) (test ygfq=3420) 76 % LYMPHOCYTES - REL (CELLAVISION)(BEAKER) (test urmn=5750) 18 % MONOCYTES - REL (CELLAVISION)(BEAKER) (test wlsr=6805) 6 % NEUTROPHILS - ABS (CELLAVISION)(BEAKER) (test pbbq=6836) 9.20 K/ul 1.56-6.13 LYMPHOCYTES - ABS (CELLAVISION)(BEAKER) (test qrmz=1101) 2.18 K/ul 1.18-3.74 MONOCYTES - ABS (CELLAVISION)(BEAKER) (test ifhn=5245) 0.73 K/uL 0.24-0.36 TOTAL COUNTED (BEAKER) (test pamy=7907) 100 WBC MORPHOLOGY (BEAKER) (test orod=857) Normal PLT MORPHOLOGY (BEAKER) (test vdhw=088) Normal POLYCHROMATOPHILLIC RBCS(BEAKER) (test gkrh=203) 2+ moderate ANISOCYTOSIS (BEAKER) (test ldxr=103) 2+ moderate TARGET CELLS (BEAKER) (test uwnx=548) 2+ moderate SICKLE CELLS (BEAKER) (test xqrm=152) 1+ few ARTIFACT (CELLAVISION)(BEAKER) (test ukoz=1559) Present PLATELET CONCENTRATION (CELLAVISION)(BEAKER) (test mkap=2541) Adequate Received comment: User comments: Slide comments: [id number] 06:14:00* Test Item Value Reference Range Comments PHOSPHORUS (BEAKER) (test xxxh=163) 3.3 mg/dL 2.3-4.7 [id number] 06:14:00* Test Item Value Reference Range Comments MAGNESIUM (BEAKER) (test ivuy=838) 2.0 mg/dL 1.6-2.6 COMPREHENSIVE METABOLIC [id number] 06:14:00* Test Item Value Reference Range Comments TOTAL PROTEIN (BEAKER) (test leqc=030) 6.4 gm/dL 6.0-8.3 ALBUMIN (BEAKER) (test gwpr=3248) 3.8 g/dL 3.5-5.0 ALKALINE PHOSPHATASE (BEAKER) (test twme=446) 76 U/L 40-150 BILIRUBIN TOTAL (BEAKER) (test usjd=128) 1.1 mg/dL 0.2-1.2 SODIUM (BEAKER) (test gxsg=915) 140 meq/L 136-145 POTASSIUM (BEAKER) (test egot=415) 3.9 meq/L 3.5-5.1 CHLORIDE (BEAKER) (test ulaq=254) 112 meq/L 98-107 CO2 (BEAKER) (test zkvp=475) 20 meq/L 22-29 BLOOD UREA NITROGEN (BEAKER) (test jwxh=687) 5 mg/dL 7-21 CREATININE (BEAKER) (test lweb=733) 0.52 mg/dL 0.57-1.25 GLUCOSE RANDOM (BEAKER) (test ftia=145) 72 mg/dL 70-105 CALCIUM (BEAKER) (test apul=507) 8.8 mg/dL 8.4-10.2 AST (SGOT) (BEAKER) (test iugr=114) 24 U/L 5-34 ALT (SGPT) (BEAKER) (test uuyp=567) 11 U/L 6-55 EGFR (BEAKER) (test luhe=6580) 180 mL/min/1.73 sq m ESTIMATED GFR IS NOT ACCURATE CREATININE CLEARANCE IN PREDICTING GLOMERULAR FILTRATION RATE. ESTIMATED GFR IS NOT APPLICABLE FOR DIALYSIS PATIENTS. CALCIUM, [id number] 05:48:00* Test Item Value Reference Range Comments CALCIUM IONIZED (BEAKER) (test pjgn=334) 1.15 mmol/L 1.12-1.27 PH, BLOOD (BEAKER) (test onod=2672) 7.26 CBC W/PLT COUNT & AUTO [id number] 08:22:00* Test Item Value Reference Range Comments WHITE BLOOD CELL COUNT (BEAKER) (test ewxn=723) 11.0 K/ L 3.5-10.5 RED BLOOD CELL COUNT (BEAKER) (test mxji=310) 3.40 M/ L 3.93-5.22 HEMOGLOBIN (BEAKER) (test vebk=682) 8.3 GM/DL 11.2-15.7 HEMATOCRIT (BEAKER) (test fakm=128) 26.3 % 34.1-44.9 Patient transfused MEAN CORPUSCULAR VOLUME (BEAKER) (test ysfq=321) 77.4 fL 79.4-94.8 MEAN CORPUSCULAR HEMOGLOBIN (BEAKER) (test ccjr=517) 24.4 pg 25.6-32.2 MEAN CORPUSCULAR HEMOGLOBIN CONC (BEAKER) (test togg=268) 31.6 GM/DL 32.2-35.5 RED CELL DISTRIBUTION WIDTH (BEAKER) (test ychd=599) 21.2 % 11.7-14.4 PLATELET COUNT (BEAKER) (test oapg=652) 320 K/CU MM 150-450 MEAN PLATELET VOLUME (BEAKER) (test pcjr=538) 9.5 fL 9.4-12.3 NUCLEATED RED BLOOD CELLS (BEAKER) (test bfld=570) 3 /100 WBC 0-0 NEUTROPHILS RELATIVE PERCENT (BEAKER) (test lpvl=775) 63 % LYMPHOCYTES RELATIVE PERCENT (BEAKER) (test mtaa=785) 20 % MONOCYTES RELATIVE PERCENT (BEAKER) (test gnkw=543) 14 % EOSINOPHILS RELATIVE PERCENT (BEAKER) (test pqrb=490) 2 % BASOPHILS RELATIVE PERCENT (BEAKER) (test ssql=211) 1 % NEUTROPHILS ABSOLUTE COUNT (BEAKER) (test ajkc=714) 6.86 K/ L 1.56-6.13 LYMPHOCYTES ABSOLUTE COUNT (BEAKER) (test mwid=670) 2.23 K/ L 1.18-3.74 MONOCYTES ABSOLUTE COUNT (BEAKER) (test ailm=698) 1.48 K/ L 0.24-0.36 EOSINOPHILS ABSOLUTE COUNT (BEAKER) (test dsor=584) 0.25 K/ L 0.04-0.36 BASOPHILS ABSOLUTE COUNT (BEAKER) (test cmye=268) 0.07 K/ L 0.01-0.08 IMMATURE GRANULOCYTES-RELATIVE PERCENT (BEAKER) (test qygf=2319) 1 % 0-1 [id number] 07:46:00* Test Item Value Reference Range Comments FERRITIN (BEAKER) (test vhfc=767) 2125 ng/mL 5-275 CALCIUM, [id number] 07:03:00* Test Item Value Reference Range Comments CALCIUM IONIZED (BEAKER) (test kfhx=648) 1.13 mmol/L 1.12-1.27 PH, BLOOD (BEAKER) (test esxw=9046) 7.36 [id number] 06:39:00* Test Item Value Reference Range Comments PHOSPHORUS (BEAKER) (test lxzl=576) 4.0 mg/dL 2.3-4.7 [id number] 06:39:00* Test Item Value Reference Range Comments MAGNESIUM (BEAKER) (test sais=751) 2.0 mg/dL 1.6-2.6 COMPREHENSIVE METABOLIC [id number] 06:39:00* Test Item Value Reference Range Comments TOTAL PROTEIN (BEAKER) (test slhn=086) 5.6 gm/dL 6.0-8.3 ALBUMIN (BEAKER) (test azts=7604) 3.5 g/dL 3.5-5.0 ALKALINE PHOSPHATASE (BEAKER) (test aznm=027) 66 U/L 40-150 BILIRUBIN TOTAL (BEAKER) (test agjc=845) 1.2 mg/dL 0.2-1.2 SODIUM (BEAKER) (test uabl=494) 140 meq/L 136-145 POTASSIUM (BEAKER) (test wccw=603) 3.5 meq/L 3.5-5.1 CHLORIDE (BEAKER) (test czgk=682) 110 meq/L 98-107 CO2 (BEAKER) (test cjzi=955) 24 meq/L 22-29 BLOOD UREA NITROGEN (BEAKER) (test bkqp=707) 6 mg/dL 7-21 CREATININE (BEAKER) (test mzfs=381) 0.50 mg/dL 0.57-1.25 GLUCOSE RANDOM (BEAKER) (test bdpv=750) 115 mg/dL 70-105 CALCIUM (BEAKER) (test mgps=704) 8.4 mg/dL 8.4-10.2 AST (SGOT) (BEAKER) (test dkqa=772) 19 U/L 5-34 ALT (SGPT) (BEAKER) (test lmpb=278) 8 U/L 6-55 EGFR (BEAKER) (test uiay=1704) 189 mL/min/1.73 sq m ESTIMATED GFR IS NOT ACCURATE CREATININE CLEARANCE IN PREDICTING GLOMERULAR FILTRATION RATE. ESTIMATED GFR IS NOT APPLICABLE FOR DIALYSIS PATIENTS. IRON, TIBC, % SAT. (WITHOUT FERRITIN)2018-07-01 06:37:00* Test Item Value Reference Range Comments IRON (BEAKER) (test ztek=208) 29 ug/dL 40-160 TOTAL IRON BINDING CAPACITY (BEAKER) (test eemh=282) 119 ug/dL 250-450 IRON % SATURATION (2) (BEAKER) (test tdmt=8544) 24 % 20-55 U/S, ABDOMINAL, [id number] 03:10:00Reason for exam:->abdominal painFINAL REPORT INDICATION: abdominal pain COMPARISON: Corre lation to noncontrast abdominal MRI December 28, 2017 TECHNIQUE: Real-time transabd ominal harp scale and color Doppler ultrasound of the abdomen. FINDINGS:Liver: Size: 20.6cm. Echogenicity: Normal. Masses/lesions: None. Surf calritza Nodularity: None. Intrahepatic bile ducts: Normal. Common [...] evidence of cholecystitis. Signed: JR Ortiz Robert MDRepor t Verified Date/Time: 07/01/2018 03:10:13 Reading Location: [facility] [id number] CT Bod y Reading Room ALYSIS W/ REFLEX URINE [id number] 17:46:00* Test Item Value Reference Range Comments COLOR (BEAKER) (test yndj=928) Yellow CLARITY (BEAKER) (test eiyu=158) Hazy SPECIFIC GRAVITY UA (BEAKER) (test xxwg=675) 1.009 1.001-1.035 PH UA (BEAKER) (test uabh=542) 6.0 5.0-8.0 PROTEIN UA (BEAKER) (test idry=840) Negative Negative GLUCOSE UA (BEAKER) (test xwjm=554) Negative Negative KETONES UA (BEAKER) (test xrzt=681) Negative Negative BILIRUBIN UA (BEAKER) (test juuf=640) Negative Negative BLOOD UA (BEAKER) (test nhcw=368) Negative Negative NITRITE UA (BEAKER) (test sfio=286) Negative Negative LEUKOCYTE ESTERASE UA (BEAKER) (test infy=301) Negative Negative UROBILINOGEN UA (BEAKER) (test ciap=875) 0.2 mg/dL 0.2-1.0 RBC UA (BEAKER) (test ldsh=268) 0 /HPF WBC UA (BEAKER) (test syee=546) < /HPF MUCUS (BEAKER) (test lrgq=7801) Occasional SQUAMOUS EPITHELIAL (BEAKER) (test odlm=736) 14 /HPF SOURCE(BEAKER) (test sges=6996) CBC W/PLT COUNT & AUTO [id number] 09:08:00* Test Item Value Reference Range Comments WHITE BLOOD CELL COUNT (BEAKER) (test yqos=508) 14.9 K/ L 3.5-10.5 RED BLOOD CELL COUNT (BEAKER) (test zpws=385) 2.81 M/ L 3.93-5.22 HEMOGLOBIN (BEAKER) (test tdan=392) 6.4 GM/DL 11.2-15.7 HEMATOCRIT (BEAKER) (test ayii=556) 20.6 % 34.1-44.9 MEAN CORPUSCULAR VOLUME (BEAKER) (test pfjk=946) 73.3 fL 79.4-94.8 MEAN CORPUSCULAR HEMOGLOBIN (BEAKER) (test bjfd=895) 22.8 pg 25.6-32.2 MEAN CORPUSCULAR HEMOGLOBIN CONC (BEAKER) (test pibi=320) 31.1 GM/DL 32.2-35.5 RED CELL DISTRIBUTION WIDTH (BEAKER) (test lnwo=164) 21.5 % 11.7-14.4 PLATELET COUNT (BEAKER) (test pirz=308) 381 K/CU MM 150-450 MEAN PLATELET VOLUME (BEAKER) (test pgps=050) 9.8 fL 9.4-12.3 NUCLEATED RED BLOOD CELLS (BEAKER) (test zogw=267) 8 /100 WBC 0-0 (CELLAVISION MANUAL DIFF)2018-06-30 09:08:00* Test Item Value Reference Range Comments NEUTROPHILS - REL (CELLAVISION)(BEAKER) (test iaon=9262) 75 % LYMPHOCYTES - REL (CELLAVISION)(BEAKER) (test zcip=6473) 19 % MONOCYTES - REL (CELLAVISION)(BEAKER) (test lwwq=3073) 5 % EOSINOPHILS - REL (CELLAVISION)(BEAKER) (test pvby=8879) 1 % NEUTROPHILS - ABS (CELLAVISION)(BEAKER) (test uusg=7215) 11.18 K/ul 1.56-6.13 LYMPHOCYTES - ABS (CELLAVISION)(BEAKER) (test uqho=0711) 2.83 K/ul 1.18-3.74 MONOCYTES - ABS (CELLAVISION)(BEAKER) (test nyhb=9969) 0.75 K/uL 0.24-0.36 EOSINOPHILS - ABS (CELLAVISION)(BEAKER) (test exxj=3528) 0.15 K/uL 0.04-0.36 TOTAL COUNTED (BEAKER) (test rudz=5638) 100 MANUAL NRBC PER 100 CELLS (BEAKER) (test uyhq=0656) 9 /100 WBC 0-0 WBC MORPHOLOGY (BEAKER) (test gtoe=424) Normal LARGE PLT(BEAKER) (test nkxf=7478) Present POLYCHROMATOPHILLIC RBCS(BEAKER) (test hbue=397) 2+ moderate HYPOCHROMIA (BEAKER) (test hswn=687) 1+ few TARGET CELLS (BEAKER) (test ifni=566) 2+ moderate SICKLE CELLS (BEAKER) (test buuy=723) 2+ moderate ARTIFACT (CELLAVISION)(BEAKER) (test pfom=1005) Present PLATELET CONCENTRATION (CELLAVISION)(BEAKER) (test sgep=7450) Adequate Received comment: User comments: Slide comments: HEMOGLOBIN [id number] 08:59:00* Test Item Value Reference Range Comments HEMOGLOBIN A1C (BEAKER) (test gscs=821) 5.8 % 4.3-6.1 POSSIBLE HEMOGLOBIN S VARIANT NOTED IN HEMOGLOBIN A1C CHROMATOGRAPH. SUGGEST HEMOGLOBIN ELECTROPHORESIS IF CLINICALLY INDICATED. TSH/FREE T4 IF [id number] 07:29:00* Test Item Value Reference Range Comments THYROID STIMULATING HORMONE (BEAKER) (test zexj=149) 1.63 uIU/mL 0.35-4.94 [id number] 06:37:00* Test Item Value Reference Range Comments PHOSPHORUS (BEAKER) (test vnme=626) 3.4 mg/dL 2.3-4.7 [id number] 06:37:00* Test Item Value Reference Range Comments MAGNESIUM (BEAKER) (test ddxv=928) 2.2 mg/dL 1.6-2.6 BASIC METABOLIC [id number] 06:37:00* Test Item Value Reference Range Comments SODIUM (BEAKER) (test utjp=489) 142 meq/L 136-145 POTASSIUM (BEAKER) (test pdun=532) 3.7 meq/L 3.5-5.1 CHLORIDE (BEAKER) (test dvdz=793) 109 meq/L 98-107 CO2 (BEAKER) (test nxqh=259) 27 meq/L 22-29 BLOOD UREA NITROGEN (BEAKER) (test ozmy=465) 2 mg/dL 7-21 CREATININE (BEAKER) (test twco=302) 0.49 mg/dL 0.57-1.25 GLUCOSE RANDOM (BEAKER) (test yqni=823) 95 mg/dL 70-105 CALCIUM (BEAKER) (test wglu=904) 9.1 mg/dL 8.4-10.2 EGFR (BEAKER) (test ritj=1293) 193 mL/min/1.73 sq m ESTIMATED GFR IS NOT ACCURATE CREATININE CLEARANCE IN PREDICTING GLOMERULAR FILTRATION RATE. ESTIMATED GFR IS NOT APPLICABLE FOR DIALYSIS PATIENTS. CALCIUM, [id number] 06:14:00* Test Item Value Reference Range Comments CALCIUM IONIZED (BEAKER) (test yede=489) 1.13 mmol/L 1.12-1.27 PH, BLOOD (BEAKER) (test ykip=0033) 7.42 RETICULOCYTE [id number] 05:42:00* Test Item Value Reference Range Comments RETICULOCYTE COUNT PCT (BEAKER) (test cude=728) 10.0 % 0.5-1.7 RAD, CHEST, 1 VIEW, NON [id number] 15:09:00Reason for exam:->SICKLE CELL PAIN CRISISIs the [...] the history of sickle cell. Signed: Blayne Chery MDReport Verified Date/Time: 06/29/2018 15:09:48 Reading Location: [address] Consult Reading Room ALYSIS W/ MICROSCOPIC 2018-06-29 14:06:00* Test Item Value Reference Range Comments COLOR (BEAKER) (test ljtm=183) Light Yellow CLARITY (BEAKER) (test wyte=141) Clear SPECIFIC GRAVITY UA (BEAKER) (test eqnq=354) 1.004 1.001-1.035 PH UA (BEAKER) (test prip=200) 6.0 5.0-8.0 PROTEIN UA (BEAKER) (test lyab=569) Negative Negative GLUCOSE UA (BEAKER) (test rqjp=038) Negative Negative KETONES UA (BEAKER) (test wwab=631) Negative Negative BILIRUBIN UA (BEAKER) (test oept=571) Negative Negative BLOOD UA (BEAKER) (test dqat=268) Negative Negative NITRITE UA (BEAKER) (test sjtl=019) Negative Negative LEUKOCYTE ESTERASE UA (BEAKER) (test owrz=023) Negative Negative UROBILINOGEN UA (BEAKER) (test eecu=619) 0.2 mg/dL 0.2-1.0 RBC UA (BEAKER) (test znmj=037) < /HPF WBC UA (BEAKER) (test kuon=574) < /HPF BACTERIA (BEAKER) (test xxem=846) Rare MUCUS (BEAKER) (test afsu=0617) Rare SQUAMOUS EPITHELIAL (BEAKER) (test jelc=869) 9 /HPF SOURCE(BEAKER) (test copq=1169) SCREEN, [id number] 14:03:00* Test Item Value Reference Range Comments TEST URINE (BEAKER) (test xwkh=394) Negative BASIC METABOLIC [id number] 12:54:00* Test Item Value Reference Range Comments SODIUM (BEAKER) (test fyyl=534) 142 meq/L 136-145 POTASSIUM (BEAKER) (test vfgk=571) 4.1 meq/L 3.5-5.1 CHLORIDE (BEAKER) (test ccyl=075) 108 meq/L 98-107 CO2 (BEAKER) (test mook=786) 24 meq/L 22-29 BLOOD UREA NITROGEN (BEAKER) (test tvrl=401) 2 mg/dL 7-21 CREATININE (BEAKER) (test byta=644) 0.56 mg/dL 0.57-1.25 GLUCOSE RANDOM (BEAKER) (test zugs=612) 89 mg/dL 70-105 CALCIUM (BEAKER) (test wtqv=339) 10.0 mg/dL 8.4-10.2 EGFR (BEAKER) (test cdpr=0408) 166 mL/min/1.73 sq m ESTIMATED GFR IS NOT ACCURATE CREATININE CLEARANCE IN PREDICTING GLOMERULAR FILTRATION RATE. ESTIMATED GFR IS NOT APPLICABLE FOR DIALYSIS PATIENTS. RETICULOCYTE [id number] 12:53:00* Test Item Value Reference Range Comments RETICULOCYTE COUNT PCT (BEAKER) (test ljsn=355) 10.4 % 0.5-1.7 CBC W/PLT COUNT & AUTO [id number] 12:53:00* Test Item Value Reference Range Comments WHITE BLOOD CELL COUNT (BEAKER) (test imuq=911) 14.6 K/ L 3.5-10.5 RED BLOOD CELL COUNT (BEAKER) (test ebmg=841) 3.03 M/ L 3.93-5.22 HEMOGLOBIN (BEAKER) (test rtgs=406) 7.0 GM/DL 11.2-15.7 HEMATOCRIT (BEAKER) (test dgdl=377) 22.0 % 34.1-44.9 MEAN CORPUSCULAR VOLUME (BEAKER) (test ylij=783) 72.6 fL 79.4-94.8 MEAN CORPUSCULAR HEMOGLOBIN (BEAKER) (test ruyp=830) 23.1 pg 25.6-32.2 MEAN CORPUSCULAR HEMOGLOBIN CONC (BEAKER) (test ghjv=884) 31.8 GM/DL 32.2-35.5 RED CELL DISTRIBUTION WIDTH (BEAKER) (test erhx=559) 21.4 % 11.7-14.4 PLATELET COUNT (BEAKER) (test ackl=499) 414 K/CU MM 150-450 MEAN PLATELET VOLUME (BEAKER) (test vgxn=664) 10.0 fL 9.4-12.3 NUCLEATED RED BLOOD CELLS (BEAKER) (test yqzg=224) 5 /100 WBC 0-0 NEUTROPHILS RELATIVE PERCENT (BEAKER) (test jddl=272) 56 % LYMPHOCYTES RELATIVE PERCENT (BEAKER) (test vurg=570) 28 % MONOCYTES RELATIVE PERCENT (BEAKER) (test mxgb=161) 10 % EOSINOPHILS RELATIVE PERCENT (BEAKER) (test tciz=283) 1 % BASOPHILS RELATIVE PERCENT (BEAKER) (test iogv=479) 1 % NEUTROPHILS ABSOLUTE COUNT (BEAKER) (test myzh=952) 8.21 K/ L 1.56-6.13 LYMPHOCYTES ABSOLUTE COUNT (BEAKER) (test bafm=201) 4.09 K/ L 1.18-3.74 MONOCYTES ABSOLUTE COUNT (BEAKER) (test bghy=079) 1.49 K/ L 0.24-0.36 EOSINOPHILS ABSOLUTE COUNT (BEAKER) (test qlmx=061) 0.16 K/ L 0.04-0.36 BASOPHILS ABSOLUTE COUNT (BEAKER) (test vgqq=874) 0.12 K/ L 0.01-0.08 IMMATURE GRANULOCYTES-RELATIVE PERCENT (BEAKER) (test uzax=3039) 4 % 0-1 CBC W/PLT COUNT & AUTO [id number] 17:07:00* Test Item Value Reference Range Comments WHITE BLOOD CELL COUNT (BEAKER) (test mdbz=281) 5.6 K/ L 3.5-10.5 RED BLOOD CELL COUNT (BEAKER) (test svhn=180) 3.14 M/ L 3.93-5.22 HEMOGLOBIN (BEAKER) (test tmmd=273) 7.2 GM/DL 11.2-15.7 HEMATOCRIT (BEAKER) (test zoif=402) 22.9 % 34.1-44.9 MEAN CORPUSCULAR VOLUME (BEAKER) (test xmdf=885) 72.9 fL 79.4-94.8 MEAN CORPUSCULAR HEMOGLOBIN (BEAKER) (test vzya=462) 22.9 pg 25.6-32.2 MEAN CORPUSCULAR HEMOGLOBIN CONC (BEAKER) (test orka=201) 31.4 GM/DL 32.2-35.5 RED CELL DISTRIBUTION WIDTH (BEAKER) (test mvrt=812) 18.9 % 11.7-14.4 PLATELET COUNT (BEAKER) (test omke=003) 154 K/CU MM 150-450 MEAN PLATELET VOLUME (BEAKER) (test pgfm=984) 10.0 fL 9.4-12.3 NUCLEATED RED BLOOD CELLS (BEAKER) (test xxox=341) 0 /100 WBC 0-0 NEUTROPHILS RELATIVE PERCENT (BEAKER) (test whwg=545) 66 % LYMPHOCYTES RELATIVE PERCENT (BEAKER) (test nhuy=469) 17 % MONOCYTES RELATIVE PERCENT (BEAKER) (test fosy=697) 11 % EOSINOPHILS RELATIVE PERCENT (BEAKER) (test ejnc=405) 5 % BASOPHILS RELATIVE PERCENT (BEAKER) (test inag=233) 1 % NEUTROPHILS ABSOLUTE COUNT (BEAKER) (test rgif=533) 3.65 K/ L 1.56-6.13 LYMPHOCYTES ABSOLUTE COUNT (BEAKER) (test kwwr=518) 0.97 K/ L 1.18-3.74 MONOCYTES ABSOLUTE COUNT (BEAKER) (test qhaw=214) 0.60 K/ L 0.24-0.36 EOSINOPHILS ABSOLUTE COUNT (BEAKER) (test itjr=187) 0.29 K/ L 0.04-0.36 BASOPHILS ABSOLUTE COUNT (BEAKER) (test tykc=845) 0.04 K/ L 0.01-0.08 IMMATURE GRANULOCYTES-RELATIVE PERCENT (BEAKER) (test dzeb=8033) 0 % 0-1 RETICULOCYTE [id number] 11:21:00* Test Item Value Reference Range Comments RETICULOCYTE COUNT PCT (BEAKER) (test zcyl=798) 3.9 % 0.5-1.7 MR, BRAIN, WITHOUT [id number] 06:28:00FINAL REPORT Exam: MRI brain without contrast. [...] rt for additional stable findings. Signed: Pietro Webbeport Verified Date/ Time: 06/20/2018 06:28:07 Reading Location: [address] Transitional Reading R oom AWAKE/ASLEEP AND [id number] 18:18:00Reason for exam:->siezure Neurophysiology Electroencephalogram Report DATE OF REPORT: DATE \\@ "M/d/yy" 06/19/18 Date(s) of Study: 06/19/2018 ACC: [id number] Start time: 1230 hrs Stop time: 1251 hrs ICD-10: R56.9 Unspecified Convulsions CPT Code: 87241 EE G: awake and asleep <40 min [...] on Buproprion. MEDICATIONS THAT COULD AFFECT EEG: Gruetli Laager, Levetiracetam, Morphine TECHNICAL SUMMARY: This is a [...] temporal sharps. Dilia Ochoa MD Epilepsy Fellow [facility] N europhysiology Service I have reviewed this electroencephalogram and this repo rt and agree with its interpretation. Dary Calvert MD Neurophysiology Attendi ng W/PLT COUNT & AUTO [id number] 06:40:00* Test Item Value Reference Range Comments WHITE BLOOD CELL COUNT (BEAKER) (test qrsy=588) 7.1 K/ L 3.5-10.5 RED BLOOD CELL COUNT (BEAKER) (test jowd=023) 2.62 M/ L 3.93-5.22 HEMOGLOBIN (BEAKER) (test sxks=529) 5.8 GM/DL 11.2-15.7 HEMATOCRIT (BEAKER) (test kcfk=207) 18.7 % 34.1-44.9 MEAN CORPUSCULAR VOLUME (BEAKER) (test znrm=855) 71.4 fL 79.4-94.8 MEAN CORPUSCULAR HEMOGLOBIN (BEAKER) (test cfcb=222) 22.1 pg 25.6-32.2 MEAN CORPUSCULAR HEMOGLOBIN CONC (BEAKER) (test vkzc=642) 31.0 GM/DL 32.2-35.5 RED CELL DISTRIBUTION WIDTH (BEAKER) (test mnjr=968) 17.3 % 11.7-14.4 PLATELET COUNT (BEAKER) (test crkg=946) 126 K/CU MM 150-450 MEAN PLATELET VOLUME (BEAKER) (test vljq=271) 9.9 fL 9.4-12.3 NUCLEATED RED BLOOD CELLS (BEAKER) (test phzw=958) 1 /100 WBC 0-0 NEUTROPHILS RELATIVE PERCENT (BEAKER) (test djgq=196) 70 % LYMPHOCYTES RELATIVE PERCENT (BEAKER) (test qzex=606) 14 % MONOCYTES RELATIVE PERCENT (BEAKER) (test tnky=356) 12 % EOSINOPHILS RELATIVE PERCENT (BEAKER) (test eomj=524) 4 % BASOPHILS RELATIVE PERCENT (BEAKER) (test upgg=715) 1 % NEUTROPHILS ABSOLUTE COUNT (BEAKER) (test iven=512) 4.95 K/ L 1.56-6.13 LYMPHOCYTES ABSOLUTE COUNT (BEAKER) (test tfxw=816) 0.99 K/ L 1.18-3.74 MONOCYTES ABSOLUTE COUNT (BEAKER) (test mxls=760) 0.86 K/ L 0.24-0.36 EOSINOPHILS ABSOLUTE COUNT (BEAKER) (test exsz=086) 0.25 K/ L 0.04-0.36 BASOPHILS ABSOLUTE COUNT (BEAKER) (test rzwy=970) 0.04 K/ L 0.01-0.08 IMMATURE GRANULOCYTES-RELATIVE PERCENT (BEAKER) (test bnzt=4902) 0 % 0-1 [id number] 05:56:00* Test Item Value Reference Range Comments PHOSPHORUS (BEAKER) (test iqse=770) 3.7 mg/dL 2.3-4.7 [id number] 05:56:00* Test Item Value Reference Range Comments MAGNESIUM (BEAKER) (test nwet=002) 2.3 mg/dL 1.6-2.6 BASIC METABOLIC [id number] 05:56:00* Test Item Value Reference Range Comments SODIUM (BEAKER) (test ijjy=209) 141 meq/L 136-145 POTASSIUM (BEAKER) (test ggub=041) 3.9 meq/L 3.5-5.1 CHLORIDE (BEAKER) (test zspe=200) 108 meq/L 98-107 CO2 (BEAKER) (test hskf=699) 28 meq/L 22-29 BLOOD UREA NITROGEN (BEAKER) (test take=767) 4 mg/dL 7-21 CREATININE (BEAKER) (test fgaf=545) 0.51 mg/dL 0.57-1.25 GLUCOSE RANDOM (BEAKER) (test atcn=940) 88 mg/dL 70-105 CALCIUM (BEAKER) (test ojpm=140) 8.9 mg/dL 8.4-10.2 EGFR (BEAKER) (test ndut=9154) 185 mL/min/1.73 sq m ESTIMATED GFR IS NOT ACCURATE CREATININE CLEARANCE IN PREDICTING GLOMERULAR FILTRATION RATE. ESTIMATED GFR IS NOT APPLICABLE FOR DIALYSIS PATIENTS. [id number] 07:43:00* Test Item Value Reference Range Comments FERRITIN (BEAKER) (test eqwh=104) 2281 ng/mL 5-275 VITAMIN B12 AND [id number] 07:24:00* Test Item Value Reference Range Comments VITAMIN B12 (BEAKER) (test xrmk=777) 853 pg/mL 213-816 FOLATE (BEAKER) (test fbji=805) 15.1 ng/mL >=7.0 IRON, TIBC, % SAT. (WITHOUT FERRITIN)2018-06-18 06:47:00* Test Item Value Reference Range Comments IRON (BEAKER) (test emyp=430) 14 ug/dL 40-160 TOTAL IRON BINDING CAPACITY (BEAKER) (test ewbb=172) 133 ug/dL 250-450 IRON % SATURATION (2) (BEAKER) (test xgnw=5493) 11 % 20-55 [id number] 06:28:00* Test Item Value Reference Range Comments PHOSPHORUS (BEAKER) (test kxur=125) 3.2 mg/dL 2.3-4.7 [id number] 06:28:00* Test Item Value Reference Range Comments MAGNESIUM (BEAKER) (test pznz=177) 2.1 mg/dL 1.6-2.6 BASIC METABOLIC [id number] 06:28:00* Test Item Value Reference Range Comments SODIUM (BEAKER) (test igdw=420) 141 meq/L 136-145 POTASSIUM (BEAKER) (test ajkv=608) 3.9 meq/L 3.5-5.1 CHLORIDE (BEAKER) (test mkfd=727) 108 meq/L 98-107 CO2 (BEAKER) (test dvuo=786) 27 meq/L 22-29 BLOOD UREA NITROGEN (BEAKER) (test zmig=265) 4 mg/dL 7-21 CREATININE (BEAKER) (test buyd=027) 0.54 mg/dL 0.57-1.25 GLUCOSE RANDOM (BEAKER) (test ipep=910) 85 mg/dL 70-105 CALCIUM (BEAKER) (test owty=853) 9.1 mg/dL 8.4-10.2 EGFR (BEAKER) (test nzgf=2229) 173 mL/min/1.73 sq m ESTIMATED GFR IS NOT ACCURATE CREATININE CLEARANCE IN PREDICTING GLOMERULAR FILTRATION RATE. ESTIMATED GFR IS NOT APPLICABLE FOR DIALYSIS PATIENTS. RETICULOCYTE [id number] 06:19:00* Test Item Value Reference Range Comments RETICULOCYTE COUNT PCT (BEAKER) (test nnbo=601) 6.8 % 0.5-1.7 CBC W/PLT COUNT & AUTO [id number] 06:19:00* Test Item Value Reference Range Comments WHITE BLOOD CELL COUNT (BEAKER) (test ydlk=714) 9.6 K/ L 3.5-10.5 RED BLOOD CELL COUNT (BEAKER) (test qepk=654) 2.82 M/ L 3.93-5.22 HEMOGLOBIN (BEAKER) (test utba=631) 6.3 GM/DL 11.2-15.7 HEMATOCRIT (BEAKER) (test boev=466) 20.3 % 34.1-44.9 MEAN CORPUSCULAR VOLUME (BEAKER) (test farw=103) 72.0 fL 79.4-94.8 MEAN CORPUSCULAR HEMOGLOBIN (BEAKER) (test exqp=112) 22.3 pg 25.6-32.2 MEAN CORPUSCULAR HEMOGLOBIN CONC (BEAKER) (test clhz=614) 31.0 GM/DL 32.2-35.5 RED CELL DISTRIBUTION WIDTH (BEAKER) (test nagt=543) 17.5 % 11.7-14.4 PLATELET COUNT (BEAKER) (test mbiv=607) 163 K/CU MM 150-450 MEAN PLATELET VOLUME (BEAKER) (test phbk=085) 10.5 fL 9.4-12.3 NUCLEATED RED BLOOD CELLS (BEAKER) (test chgx=368) 2 /100 WBC 0-0 NEUTROPHILS RELATIVE PERCENT (BEAKER) (test alta=021) 79 % LYMPHOCYTES RELATIVE PERCENT (BEAKER) (test wyrh=203) 9 % MONOCYTES RELATIVE PERCENT (BEAKER) (test upey=998) 10 % EOSINOPHILS RELATIVE PERCENT (BEAKER) (test oijc=734) 1 % BASOPHILS RELATIVE PERCENT (BEAKER) (test wwfc=016) 0 % NEUTROPHILS ABSOLUTE COUNT (BEAKER) (test atjc=914) 7.56 K/ L 1.56-6.13 LYMPHOCYTES ABSOLUTE COUNT (BEAKER) (test fwqa=360) 0.86 K/ L 1.18-3.74 MONOCYTES ABSOLUTE COUNT (BEAKER) (test wqqc=673) 0.96 K/ L 0.24-0.36 EOSINOPHILS ABSOLUTE COUNT (BEAKER) (test kfow=004) 0.09 K/ L 0.04-0.36 BASOPHILS ABSOLUTE COUNT (BEAKER) (test gybn=947) 0.02 K/ L 0.01-0.08 IMMATURE GRANULOCYTES-RELATIVE PERCENT (BEAKER) (test wxjd=8993) 1 % 0-1 CBC W/PLT COUNT & AUTO [id number] 07:57:00* Test Item Value Reference Range Comments WHITE BLOOD CELL COUNT (BEAKER) (test mare=198) 15.6 K/ L 3.5-10.5 RED BLOOD CELL COUNT (BEAKER) (test leco=757) 3.14 M/ L 3.93-5.22 HEMOGLOBIN (BEAKER) (test bfea=895) 6.9 GM/DL 11.2-15.7 HEMATOCRIT (BEAKER) (test reou=916) 22.3 % 34.1-44.9 MEAN CORPUSCULAR VOLUME (BEAKER) (test xplp=926) 71.0 fL 79.4-94.8 MEAN CORPUSCULAR HEMOGLOBIN (BEAKER) (test cubf=836) 22.0 pg 25.6-32.2 MEAN CORPUSCULAR HEMOGLOBIN CONC (BEAKER) (test rasl=680) 30.9 GM/DL 32.2-35.5 RED CELL DISTRIBUTION WIDTH (BEAKER) (test sjyl=977) 19.1 % 11.7-14.4 PLATELET COUNT (BEAKER) (test pkkm=145) 215 K/CU MM 150-450 MEAN PLATELET VOLUME (BEAKER) (test mybf=426) 10.0 fL 9.4-12.3 NUCLEATED RED BLOOD CELLS (BEAKER) (test vkyg=820) 3 /100 WBC 0-0 (CELLAVISION MANUAL DIFF)2018-06-17 07:57:00* Test Item Value Reference Range Comments NEUTROPHILS - REL (CELLAVISION)(BEAKER) (test mpre=2579) 91 % LYMPHOCYTES - REL (CELLAVISION)(BEAKER) (test midw=8123) 4 % MONOCYTES - REL (CELLAVISION)(BEAKER) (test bpsd=4691) 5 % NEUTROPHILS - ABS (CELLAVISION)(BEAKER) (test xtpo=2393) 14.20 K/ul 1.56-6.13 LYMPHOCYTES - ABS (CELLAVISION)(BEAKER) (test wesk=2762) 0.62 K/ul 1.18-3.74 MONOCYTES - ABS (CELLAVISION)(BEAKER) (test izxz=2835) 0.78 K/uL 0.24-0.36 TOTAL COUNTED (BEAKER) (test xnwf=1978) 100 MANUAL NRBC PER 100 CELLS (BEAKER) (test ipwh=1197) 8 /100 WBC 0-0 WBC MORPHOLOGY (BEAKER) (test jcdv=068) Normal LARGE PLT(BEAKER) (test vsxq=9953) Present POLYCHROMATOPHILLIC RBCS(BEAKER) (test qbag=644) 2+ moderate HYPOCHROMIA (BEAKER) (test wlwq=012) 2+ moderate TARGET CELLS (BEAKER) (test zdcp=999) 2+ moderate SICKLE CELLS (BEAKER) (test kafn=359) 2+ moderate ARTIFACT (CELLAVISION)(BEAKER) (test trhd=0192) Present PLATELET CONCENTRATION (CELLAVISION)(BEAKER) (test mqxs=2473) Adequate Received comment: User comments: Slide comments: [id number] 05:59:00* Test Item Value Reference Range Comments PHOSPHORUS (BEAKER) (test wfay=075) 4.5 mg/dL 2.3-4.7 [id number] 05:59:00* Test Item Value Reference Range Comments MAGNESIUM (BEAKER) (test avjm=800) 2.3 mg/dL 1.6-2.6 BASIC METABOLIC [id number] 05:59:00* Test Item Value Reference Range Comments SODIUM (BEAKER) (test zsuh=843) 140 meq/L 136-145 POTASSIUM (BEAKER) (test bsjp=159) 3.9 meq/L 3.5-5.1 CHLORIDE (BEAKER) (test rpzd=992) 107 meq/L 98-107 CO2 (BEAKER) (test iqgo=378) 26 meq/L 22-29 BLOOD UREA NITROGEN (BEAKER) (test fupi=509) 4 mg/dL 7-21 CREATININE (BEAKER) (test xmfc=621) 0.56 mg/dL 0.57-1.25 GLUCOSE RANDOM (BEAKER) (test xare=974) 104 mg/dL 70-105 CALCIUM (BEAKER) (test jzwo=761) 9.3 mg/dL 8.4-10.2 EGFR (BEAKER) (test aoeq=1416) 166 mL/min/1.73 sq m ESTIMATED GFR IS NOT ACCURATE CREATININE CLEARANCE IN PREDICTING GLOMERULAR FILTRATION RATE. ESTIMATED GFR IS NOT APPLICABLE FOR DIALYSIS PATIENTS. SCREEN, [id number] 19:11:00* Test Item Value Reference Range Comments TEST URINE (BEAKER) (test hztp=616) Negative RAD, CHEST, 1 VIEW, NON [id number] 17:31:00Reason for exam:->chest painIs the patient ?->UnknownShould [...] chest and may be extracorporeal. Signed: Beatriz Elena MDReport Verified Date/Time : 06/16/2018 17:31:03 Reading Location: [address] Ortho Consult Reading Room ALYSIS W/ [id number] 16:49:00* Test Item Value Reference Range Comments COLOR (BEAKER) (test lwew=865) Colorless CLARITY (BEAKER) (test olij=608) Clear SPECIFIC GRAVITY UA (BEAKER) (test wtly=479) 1.001 1.001-1.035 PH UA (BEAKER) (test uhoh=379) 6.5 5.0-8.0 PROTEIN UA (BEAKER) (test drkc=477) Negative Negative GLUCOSE UA (BEAKER) (test ffrt=303) Negative Negative KETONES UA (BEAKER) (test ggaj=521) Negative Negative BILIRUBIN UA (BEAKER) (test sbld=826) Negative Negative BLOOD UA (BEAKER) (test xhhg=776) Trace Negative NITRITE UA (BEAKER) (test zntb=987) Negative Negative LEUKOCYTE ESTERASE UA (BEAKER) (test fmev=707) Negative Negative UROBILINOGEN UA (BEAKER) (test qeum=723) 0.2 mg/dL 0.2-1.0 RBC UA (BEAKER) (test sieu=944) 0 /HPF WBC UA (BEAKER) (test iczq=802) 0 /HPF SQUAMOUS EPITHELIAL (BEAKER) (test wwsr=414) < /HPF SOURCE(BEAKER) (test onsn=2122) COMPREHENSIVE METABOLIC [id number] 16:11:00* Test Item Value Reference Range Comments TOTAL PROTEIN (BEAKER) (test brbf=512) 6.5 gm/dL 6.0-8.3 ALBUMIN (BEAKER) (test jxsa=3277) 4.3 g/dL 3.5-5.0 ALKALINE PHOSPHATASE (BEAKER) (test gssm=248) 79 U/L 40-150 BILIRUBIN TOTAL (BEAKER) (test wgtd=511) 1.8 mg/dL 0.2-1.2 SODIUM (BEAKER) (test jgws=187) 142 meq/L 136-145 POTASSIUM (BEAKER) (test ubyu=640) 4.1 meq/L 3.5-5.1 CHLORIDE (BEAKER) (test iygx=962) 108 meq/L 98-107 CO2 (BEAKER) (test zqhj=470) 26 meq/L 22-29 BLOOD UREA NITROGEN (BEAKER) (test utcm=156) 4 mg/dL 7-21 CREATININE (BEAKER) (test otae=976) 0.59 mg/dL 0.57-1.25 GLUCOSE RANDOM (BEAKER) (test hhoc=891) 94 mg/dL 70-105 CALCIUM (BEAKER) (test guay=826) 9.7 mg/dL 8.4-10.2 AST (SGOT) (BEAKER) (test lknv=683) 31 U/L 5-34 ALT (SGPT) (BEAKER) (test uxva=081) 12 U/L 6-55 EGFR (BEAKER) (test rlmj=7329) 156 mL/min/1.73 sq m ESTIMATED GFR IS NOT ACCURATE CREATININE CLEARANCE IN PREDICTING GLOMERULAR FILTRATION RATE. ESTIMATED GFR IS NOT APPLICABLE FOR DIALYSIS PATIENTS. Specimen slightly ictericCBC W/PLT COUNT & AUTO [id number] 16:03:00 * Test Item Value Reference Range Comments WHITE BLOOD CELL COUNT (BEAKER) (test oonl=839) 18.3 K/ L 3.5-10.5 RED BLOOD CELL COUNT (BEAKER) (test urcl=064) 2.94 M/ L 3.93-5.22 HEMOGLOBIN (BEAKER) (test hyoy=379) 6.7 GM/DL 11.2-15.7 HEMATOCRIT (BEAKER) (test zzgj=211) 20.9 % 34.1-44.9 MEAN CORPUSCULAR VOLUME (BEAKER) (test gtop=845) 71.1 fL 79.4-94.8 MEAN CORPUSCULAR HEMOGLOBIN (BEAKER) (test anqm=355) 22.8 pg 25.6-32.2 MEAN CORPUSCULAR HEMOGLOBIN CONC (BEAKER) (test hnul=826) 32.1 GM/DL 32.2-35.5 RED CELL DISTRIBUTION WIDTH (BEAKER) (test fxcw=873) 20.0 % 11.7-14.4 PLATELET COUNT (BEAKER) (test gpgu=159) 216 K/CU MM 150-450 MEAN PLATELET VOLUME (BEAKER) (test kjsk=132) 10.0 fL 9.4-12.3 NUCLEATED RED BLOOD CELLS (BEAKER) (test rmky=750) 3 /100 WBC 0-0 NEUTROPHILS RELATIVE PERCENT (BEAKER) (test bmzt=582) 80 % LYMPHOCYTES RELATIVE PERCENT (BEAKER) (test ieml=243) 9 % MONOCYTES RELATIVE PERCENT (BEAKER) (test wthm=625) 8 % EOSINOPHILS RELATIVE PERCENT (BEAKER) (test ncmz=337) 0 % BASOPHILS RELATIVE PERCENT (BEAKER) (test licq=145) 1 % NEUTROPHILS ABSOLUTE COUNT (BEAKER) (test njmd=347) 14.64 K/ L 1.56-6.13 LYMPHOCYTES ABSOLUTE COUNT (BEAKER) (test yikq=370) 1.71 K/ L 1.18-3.74 MONOCYTES ABSOLUTE COUNT (BEAKER) (test rrqq=376) 1.45 K/ L 0.24-0.36 EOSINOPHILS ABSOLUTE COUNT (BEAKER) (test xtbd=774) 0.02 K/ L 0.04-0.36 BASOPHILS ABSOLUTE COUNT (BEAKER) (test cnhu=922) 0.09 K/ L 0.01-0.08 IMMATURE GRANULOCYTES-RELATIVE PERCENT (BEAKER) (test cccv=8097) 2 % 0-1 RETICULOCYTE [id number] 16:02:00* Test Item Value Reference Range Comments RETICULOCYTE COUNT PCT (BEAKER) (test tsjg=946) 8.6 % 0.5-1.7 BLOOD [id number] 00:00:00* Test Item Value Reference Range Comments CULTURE (BEAKER) (test doqc=6181) No growth in 5 days RAD, CHEST, 2 [id number] 22:42:00Reason for exam:->leukocytosisFINAL REPORT Examination: Two view [...] sickle cell anemia. Sign ed: Ernie Sawyer MDReport Verified Date/Time: 03/03/2018 22:42:39 Reading Loca tion: [facility] [address] [place] [address] Reading Room , MANDIBLE, MIN 4 [id number] 22:20:00Reason for exam:->post molar pain bilatFINAL REPORT CLINICAL HISTORY: Posterior molar pain bilaterally COMPARISON: None. FINDINGS: 5 views of the mandible are submitted. There is no acute fracture, malalignment, destructive bony lesion or significant periapical lucency related to the teeth. The visualized skeleton is otherwise unremarkable as are the surrounding soft tissues. Signed: Ernie Sawyer MDReport Verified Date/Time: 03/03/2018 22:20:44 Reading Location: [address] Reading Room D [id number] 18:00:00* Test Item Value Reference Range Comments CULTURE (BEAKER) (test tmnj=4406) No growth in 5 days CBC W/PLT COUNT & AUTO [id number] 11:59:00* Test Item Value Reference Range Comments WHITE BLOOD CELL COUNT (BEAKER) (test nlyi=710) 12.6 K/ L 3.5-10.5 RED BLOOD CELL COUNT (BEAKER) (test kbtd=611) 2.58 M/ L 3.93-5.22 HEMOGLOBIN (BEAKER) (test tccm=203) 6.1 GM/DL 11.2-15.7 HEMATOCRIT (BEAKER) (test dnmb=187) 19.2 % 34.1-44.9 MEAN CORPUSCULAR VOLUME (BEAKER) (test rmcn=365) 74.4 fL 79.4-94.8 MEAN CORPUSCULAR HEMOGLOBIN (BEAKER) (test ebws=582) 23.6 pg 25.6-32.2 MEAN CORPUSCULAR HEMOGLOBIN CONC (BEAKER) (test paju=190) 31.8 GM/DL 32.2-35.5 RED CELL DISTRIBUTION WIDTH (BEAKER) (test ixwl=177) 25.5 % 11.7-14.4 PLATELET COUNT (BEAKER) (test flll=325) 316 K/CU MM 150-450 MEAN PLATELET VOLUME (BEAKER) (test cowc=165) 10.1 fL 9.4-12.3 NUCLEATED RED BLOOD CELLS (BEAKER) (test xgpv=890) 9 /100 WBC 0-0 BASIC METABOLIC [id number] 07:11:00* Test Item Value Reference Range Comments SODIUM (BEAKER) (test xaxt=990) 141 meq/L 136-145 POTASSIUM (BEAKER) (test nnzw=978) 3.0 meq/L 3.5-5.1 CHLORIDE (BEAKER) (test pizx=138) 110 meq/L 98-107 CO2 (BEAKER) (test xyvl=033) 24 meq/L 22-29 BLOOD UREA NITROGEN (BEAKER) (test jqef=576) 3 mg/dL 7-21 CREATININE (BEAKER) (test vnvp=680) 0.46 mg/dL 0.57-1.25 GLUCOSE RANDOM (BEAKER) (test ztkg=882) 85 mg/dL 70-105 CALCIUM (BEAKER) (test uaso=459) 8.5 mg/dL 8.4-10.2 EGFR (BEAKER) (test yyze=9495) 208 mL/min/1.73 sq m ESTIMATED GFR IS NOT ACCURATE CREATININE CLEARANCE IN PREDICTING GLOMERULAR FILTRATION RATE. ESTIMATED GFR IS NOT APPLICABLE FOR DIALYSIS PATIENTS. Specimen slightly ictericBASIC METABOLIC [id number] 06:42:00* Test Item Value Reference Range Comments SODIUM (BEAKER) (test rzgs=735) 143 meq/L 136-145 POTASSIUM (BEAKER) (test dmof=294) 3.3 meq/L 3.5-5.1 Specimen slightly hemolyzed CHLORIDE (BEAKER) (test bwyb=636) 113 meq/L 98-107 CO2 (BEAKER) (test zdfc=686) 20 meq/L 22-29 BLOOD UREA NITROGEN (BEAKER) (test ddix=417) 5 mg/dL 7-21 CREATININE (BEAKER) (test oqlo=875) 0.43 mg/dL 0.57-1.25 Specimen slightly hemolyzed GLUCOSE RANDOM (BEAKER) (test nkdc=079) 83 mg/dL 70-105 CALCIUM (BEAKER) (test euko=919) 8.5 mg/dL 8.4-10.2 EGFR (BEAKER) (test zxrx=6020) 225 mL/min/1.73 sq m ESTIMATED GFR IS NOT ACCURATE CREATININE CLEARANCE IN PREDICTING GLOMERULAR FILTRATION RATE. ESTIMATED GFR IS NOT APPLICABLE FOR DIALYSIS PATIENTS. Specimen slightly ictericCBC W/PLT COUNT & AUTO [id number] 06:41:00 * Test Item Value Reference Range Comments WHITE BLOOD CELL COUNT (BEAKER) (test txch=350) 14.5 K/ L 3.5-10.5 RED BLOOD CELL COUNT (BEAKER) (test yvvy=909) 2.53 M/ L 3.93-5.22 HEMOGLOBIN (BEAKER) (test idtg=122) 6.1 GM/DL 11.2-15.7 HEMATOCRIT (BEAKER) (test gsrg=743) 19.0 % 34.1-44.9 MEAN CORPUSCULAR VOLUME (BEAKER) (test xqse=975) 75.1 fL 79.4-94.8 MEAN CORPUSCULAR HEMOGLOBIN (BEAKER) (test inkn=330) 24.1 pg 25.6-32.2 MEAN CORPUSCULAR HEMOGLOBIN CONC (BEAKER) (test owfn=597) 32.1 GM/DL 32.2-35.5 RED CELL DISTRIBUTION WIDTH (BEAKER) (test xfoq=366) 25.1 % 11.7-14.4 PLATELET COUNT (BEAKER) (test ffrt=573) 247 K/CU MM 150-450 MEAN PLATELET VOLUME (BEAKER) (test vmwi=563) 10.2 fL 9.4-12.3 NUCLEATED RED BLOOD CELLS (BEAKER) (test swxp=075) 2 /100 WBC 0-0 NEUTROPHILS RELATIVE PERCENT (BEAKER) (test muae=958) 78 % LYMPHOCYTES RELATIVE PERCENT (BEAKER) (test jqgz=768) 10 % MONOCYTES RELATIVE PERCENT (BEAKER) (test bqmx=533) 10 % EOSINOPHILS RELATIVE PERCENT (BEAKER) (test chil=212) 1 % BASOPHILS RELATIVE PERCENT (BEAKER) (test dmao=806) 0 % NEUTROPHILS ABSOLUTE COUNT (BEAKER) (test gnbk=191) 11.28 K/ L 1.56-6.13 LYMPHOCYTES ABSOLUTE COUNT (BEAKER) (test dmtt=732) 1.38 K/ L 1.18-3.74 MONOCYTES ABSOLUTE COUNT (BEAKER) (test uwnl=266) 1.47 K/ L 0.24-0.36 EOSINOPHILS ABSOLUTE COUNT (BEAKER) (test qcqf=599) 0.19 K/ L 0.04-0.36 BASOPHILS ABSOLUTE COUNT (BEAKER) (test miow=648) 0.04 K/ L 0.01-0.08 IMMATURE GRANULOCYTES-RELATIVE PERCENT (BEAKER) (test nrtm=5143) 1 % 0-1 BASIC METABOLIC [id number] 05:15:00* Test Item Value Reference Range Comments SODIUM (BEAKER) (test jiet=008) 142 meq/L 136-145 POTASSIUM (BEAKER) (test buxf=696) 3.2 meq/L 3.5-5.1 CHLORIDE (BEAKER) (test qeqn=448) 112 meq/L 98-107 CO2 (BEAKER) (test hvnf=324) 23 meq/L 22-29 BLOOD UREA NITROGEN (BEAKER) (test cxkp=008) 3 mg/dL 7-21 CREATININE (BEAKER) (test mtii=025) 0.43 mg/dL 0.57-1.25 GLUCOSE RANDOM (BEAKER) (test wonp=229) 89 mg/dL 70-105 CALCIUM (BEAKER) (test ipjq=275) 8.8 mg/dL 8.4-10.2 EGFR (BEAKER) (test xyjj=5422) 225 mL/min/1.73 sq m ESTIMATED GFR IS NOT ACCURATE CREATININE CLEARANCE IN PREDICTING GLOMERULAR FILTRATION RATE. ESTIMATED GFR IS NOT APPLICABLE FOR DIALYSIS PATIENTS. Specimen slightly ictericCBC W/PLT COUNT & AUTO [id number] 05:10:00 * Test Item Value Reference Range Comments WHITE BLOOD CELL COUNT (BEAKER) (test scjq=954) 9.8 K/ L 3.5-10.5 RED BLOOD CELL COUNT (BEAKER) (test lnuo=530) 2.67 M/ L 3.93-5.22 HEMOGLOBIN (BEAKER) (test arlv=518) 6.3 GM/DL 11.2-15.7 HEMATOCRIT (BEAKER) (test sukr=658) 20.2 % 34.1-44.9 MEAN CORPUSCULAR VOLUME (BEAKER) (test mnvo=101) 75.7 fL 79.4-94.8 MEAN CORPUSCULAR HEMOGLOBIN (BEAKER) (test hsrp=371) 23.6 pg 25.6-32.2 MEAN CORPUSCULAR HEMOGLOBIN CONC (BEAKER) (test nxzc=471) 31.2 GM/DL 32.2-35.5 RED CELL DISTRIBUTION WIDTH (BEAKER) (test dhwn=998) 22.4 % 11.7-14.4 PLATELET COUNT (BEAKER) (test kyjt=265) 218 K/CU MM 150-450 MEAN PLATELET VOLUME (BEAKER) (test bzej=680) 10.3 fL 9.4-12.3 NUCLEATED RED BLOOD CELLS (BEAKER) (test jwid=348) 3 /100 WBC 0-0 NEUTROPHILS RELATIVE PERCENT (BEAKER) (test yzmj=379) 63 % LYMPHOCYTES RELATIVE PERCENT (BEAKER) (test vzju=870) 22 % MONOCYTES RELATIVE PERCENT (BEAKER) (test oprs=248) 11 % EOSINOPHILS RELATIVE PERCENT (BEAKER) (test ktpy=107) 3 % BASOPHILS RELATIVE PERCENT (BEAKER) (test taap=526) 0 % NEUTROPHILS ABSOLUTE COUNT (BEAKER) (test duqe=989) 6.19 K/ L 1.56-6.13 LYMPHOCYTES ABSOLUTE COUNT (BEAKER) (test bkbb=312) 2.10 K/ L 1.18-3.74 MONOCYTES ABSOLUTE COUNT (BEAKER) (test xjno=754) 1.08 K/ L 0.24-0.36 EOSINOPHILS ABSOLUTE COUNT (BEAKER) (test xfrl=437) 0.32 K/ L 0.04-0.36 BASOPHILS ABSOLUTE COUNT (BEAKER) (test dwra=160) 0.04 K/ L 0.01-0.08 IMMATURE GRANULOCYTES-RELATIVE PERCENT (BEAKER) (test kmbq=9218) 0 % 0-1 BASIC METABOLIC [id number] 06:48:00* Test Item Value Reference Range Comments SODIUM (BEAKER) (test tdjf=696) 142 meq/L 136-145 POTASSIUM (BEAKER) (test wlcw=856) 3.7 meq/L 3.5-5.1 CHLORIDE (BEAKER) (test kqyt=727) 116 meq/L 98-107 CO2 (BEAKER) (test klpv=071) 18 meq/L 22-29 BLOOD UREA NITROGEN (BEAKER) (test akyd=846) 4 mg/dL 7-21 CREATININE (BEAKER) (test hrfb=277) 0.47 mg/dL 0.57-1.25 GLUCOSE RANDOM (BEAKER) (test ehcr=202) 87 mg/dL 70-105 CALCIUM (BEAKER) (test btkg=018) 8.2 mg/dL 8.4-10.2 EGFR (BEAKER) (test vpcb=0241) 203 mL/min/1.73 sq m ESTIMATED GFR IS NOT ACCURATE CREATININE CLEARANCE IN PREDICTING GLOMERULAR FILTRATION RATE. ESTIMATED GFR IS NOT APPLICABLE FOR DIALYSIS PATIENTS. CBC W/PLT COUNT & AUTO [id number] 06:38:00* Test Item Value Reference Range Comments WHITE BLOOD CELL COUNT (BEAKER) (test zfzp=077) 10.1 K/ L 3.5-10.5 RED BLOOD CELL COUNT (BEAKER) (test oupa=443) 2.86 M/ L 3.93-5.22 HEMOGLOBIN (BEAKER) (test dkcj=867) 6.8 GM/DL 11.2-15.7 HEMATOCRIT (BEAKER) (test klqm=994) 22.2 % 34.1-44.9 MEAN CORPUSCULAR VOLUME (BEAKER) (test lzrv=290) 77.6 fL 79.4-94.8 MEAN CORPUSCULAR HEMOGLOBIN (BEAKER) (test mtmo=257) 23.8 pg 25.6-32.2 MEAN CORPUSCULAR HEMOGLOBIN CONC (BEAKER) (test jswv=459) 30.6 GM/DL 32.2-35.5 RED CELL DISTRIBUTION WIDTH (BEAKER) (test mqfn=095) 19.9 % 11.7-14.4 PLATELET COUNT (BEAKER) (test ipae=015) 203 K/CU MM 150-450 MEAN PLATELET VOLUME (BEAKER) (test fbgw=620) 11.0 fL 9.4-12.3 NUCLEATED RED BLOOD CELLS (BEAKER) (test wobm=724) 3 /100 WBC 0-0 NEUTROPHILS RELATIVE PERCENT (BEAKER) (test mont=030) 62 % LYMPHOCYTES RELATIVE PERCENT (BEAKER) (test hgoo=696) 23 % MONOCYTES RELATIVE PERCENT (BEAKER) (test zrnd=748) 11 % EOSINOPHILS RELATIVE PERCENT (BEAKER) (test fuub=066) 2 % BASOPHILS RELATIVE PERCENT (BEAKER) (test xblz=266) 1 % NEUTROPHILS ABSOLUTE COUNT (BEAKER) (test ndxf=315) 6.29 K/ L 1.56-6.13 LYMPHOCYTES ABSOLUTE COUNT (BEAKER) (test bmvh=526) 2.28 K/ L 1.18-3.74 MONOCYTES ABSOLUTE COUNT (BEAKER) (test vybg=520) 1.11 K/ L 0.24-0.36 EOSINOPHILS ABSOLUTE COUNT (BEAKER) (test divr=018) 0.23 K/ L 0.04-0.36 BASOPHILS ABSOLUTE COUNT (BEAKER) (test bvzb=958) 0.09 K/ L 0.01-0.08 IMMATURE GRANULOCYTES-RELATIVE PERCENT (BEAKER) (test tdxb=5886) 1 % 0-1 URINE [id number] 15:17:00* Test Item Value Reference Range Comments CULTURE (BEAKER) (test teki=0857) <10,000 col/mL skin lola CBC W/PLT COUNT & AUTO [id number] 08:20:00* Test Item Value Reference Range Comments WHITE BLOOD CELL COUNT (BEAKER) (test rmil=111) 7.6 K/ L 3.5-10.5 RED BLOOD CELL COUNT (BEAKER) (test eybv=861) 2.53 M/ L 3.93-5.22 HEMOGLOBIN (BEAKER) (test kbuo=649) 5.9 GM/DL 11.2-15.7 HEMATOCRIT (BEAKER) (test erlu=003) 19.0 % 34.1-44.9 MEAN CORPUSCULAR VOLUME (BEAKER) (test fiqy=081) 75.1 fL 79.4-94.8 MEAN CORPUSCULAR HEMOGLOBIN (BEAKER) (test gkis=890) 23.3 pg 25.6-32.2 MEAN CORPUSCULAR HEMOGLOBIN CONC (BEAKER) (test pnfv=762) 31.1 GM/DL 32.2-35.5 RED CELL DISTRIBUTION WIDTH (BEAKER) (test koxk=721) 18.2 % 11.7-14.4 PLATELET COUNT (BEAKER) (test icnl=404) 174 K/CU MM 150-450 MEAN PLATELET VOLUME (BEAKER) (test ukof=353) 10.6 fL 9.4-12.3 NUCLEATED RED BLOOD CELLS (BEAKER) (test uljq=369) 4 /100 WBC 0-0 NEUTROPHILS RELATIVE PERCENT (BEAKER) (test topr=336) 49 % LYMPHOCYTES RELATIVE PERCENT (BEAKER) (test lrij=410) 32 % MONOCYTES RELATIVE PERCENT (BEAKER) (test pyst=754) 15 % EOSINOPHILS RELATIVE PERCENT (BEAKER) (test uojc=152) 3 % BASOPHILS RELATIVE PERCENT (BEAKER) (test mqig=321) 1 % NEUTROPHILS ABSOLUTE COUNT (BEAKER) (test llqe=150) 3.75 K/ L 1.56-6.13 LYMPHOCYTES ABSOLUTE COUNT (BEAKER) (test qbco=609) 2.41 K/ L 1.18-3.74 MONOCYTES ABSOLUTE COUNT (BEAKER) (test pxnu=327) 1.12 K/ L 0.24-0.36 EOSINOPHILS ABSOLUTE COUNT (BEAKER) (test fcld=620) 0.22 K/ L 0.04-0.36 BASOPHILS ABSOLUTE COUNT (BEAKER) (test jhpy=483) 0.05 K/ L 0.01-0.08 IMMATURE GRANULOCYTES-RELATIVE PERCENT (BEAKER) (test uznw=2336) 1 % 0-1 BASIC METABOLIC [id number] 07:30:00* Test Item Value Reference Range Comments SODIUM (BEAKER) (test zgpl=498) 144 meq/L 136-145 POTASSIUM (BEAKER) (test pept=595) 3.2 meq/L 3.5-5.1 CHLORIDE (BEAKER) (test jyai=583) 114 meq/L 98-107 CO2 (BEAKER) (test tsjz=077) 24 meq/L 22-29 BLOOD UREA NITROGEN (BEAKER) (test cskh=728) 3 mg/dL 7-21 CREATININE (BEAKER) (test qxxx=902) 0.46 mg/dL 0.57-1.25 GLUCOSE RANDOM (BEAKER) (test cngy=215) 102 mg/dL 70-105 CALCIUM (BEAKER) (test ddfe=725) 8.5 mg/dL 8.4-10.2 EGFR (BEAKER) (test plmf=0275) 208 mL/min/1.73 sq m ESTIMATED GFR IS NOT ACCURATE CREATININE CLEARANCE IN PREDICTING GLOMERULAR FILTRATION RATE. ESTIMATED GFR IS NOT APPLICABLE FOR DIALYSIS PATIENTS. CBC W/PLT COUNT & AUTO [id number] 08:01:00* Test Item Value Reference Range Comments WHITE BLOOD CELL COUNT (BEAKER) (test cnuh=872) 9.9 K/ L 3.5-10.5 RED BLOOD CELL COUNT (BEAKER) (test vyxv=042) 2.45 M/ L 3.93-5.22 HEMOGLOBIN (BEAKER) (test etjr=556) 5.4 GM/DL 11.2-15.7 HEMATOCRIT (BEAKER) (test ezkw=830) 17.4 % 34.1-44.9 MEAN CORPUSCULAR VOLUME (BEAKER) (test crrn=490) 71.0 fL 79.4-94.8 MEAN CORPUSCULAR HEMOGLOBIN (BEAKER) (test rhmr=202) 22.0 pg 25.6-32.2 MEAN CORPUSCULAR HEMOGLOBIN CONC (BEAKER) (test ypfu=390) 31.0 GM/DL 32.2-35.5 RED CELL DISTRIBUTION WIDTH (BEAKER) (test bguv=777) 17.8 % 11.7-14.4 PLATELET COUNT (BEAKER) (test lgwv=515) 196 K/CU MM 150-450 MEAN PLATELET VOLUME (BEAKER) (test pacq=455) 10.6 fL 9.4-12.3 NUCLEATED RED BLOOD CELLS (BEAKER) (test gail=968) 6 /100 WBC 0-0 BASIC METABOLIC [id number] 04:36:00* Test Item Value Reference Range Comments SODIUM (BEAKER) (test afmv=936) 143 meq/L 136-145 POTASSIUM (BEAKER) (test bpro=770) 3.6 meq/L 3.5-5.1 CHLORIDE (BEAKER) (test yiah=186) 113 meq/L 98-107 CO2 (BEAKER) (test kaux=608) 24 meq/L 22-29 BLOOD UREA NITROGEN (BEAKER) (test cxdc=822) 4 mg/dL 7-21 CREATININE (BEAKER) (test evhr=714) 0.45 mg/dL 0.57-1.25 GLUCOSE RANDOM (BEAKER) (test mwpi=181) 101 mg/dL 70-105 CALCIUM (BEAKER) (test nfva=694) 8.4 mg/dL 8.4-10.2 EGFR (BEAKER) (test ljkz=8453) 213 mL/min/1.73 sq m ESTIMATED GFR IS NOT ACCURATE CREATININE CLEARANCE IN PREDICTING GLOMERULAR FILTRATION RATE. ESTIMATED GFR IS NOT APPLICABLE FOR DIALYSIS PATIENTS. SCREEN, [id number] 20:47:00* Test Item Value Reference Range Comments TEST URINE (BEAKER) (test tkcl=553) Negative URINALYSIS W/ [id number] 20:46:00* Test Item Value Reference Range Comments COLOR (BEAKER) (test szsv=636) Yellow CLARITY (BEAKER) (test tsig=445) Clear SPECIFIC GRAVITY UA (BEAKER) (test ahus=551) 1.004 1.001-1.035 PH UA (BEAKER) (test swao=385) 6.0 5.0-8.0 PROTEIN UA (BEAKER) (test ogsw=127) Negative Negative GLUCOSE UA (BEAKER) (test otrp=236) Negative Negative KETONES UA (BEAKER) (test zrjb=199) Negative Negative BILIRUBIN UA (BEAKER) (test owxu=217) Negative Negative BLOOD UA (BEAKER) (test cdxd=305) Negative Negative NITRITE UA (BEAKER) (test bjjb=731) Negative Negative LEUKOCYTE ESTERASE UA (BEAKER) (test oxvr=956) Negative Negative UROBILINOGEN UA (BEAKER) (test lsxi=943) 0.2 mg/dL 0.2-1.0 RBC UA (BEAKER) (test rdsc=591) 0 /HPF WBC UA (BEAKER) (test wwon=191) < /HPF BACTERIA (BEAKER) (test xzbu=093) Rare MUCUS (BEAKER) (test ewsr=9937) Rare SQUAMOUS EPITHELIAL (BEAKER) (test cumw=080) 2 /HPF SOURCE(BEAKER) (test wxmk=7280) Urine, Voided RAD, CHEST, 1 VIEW, NON [id number] 20:12:00Reason for exam:->SICKLE CELL PAIN CRISISReason for [...] MDReport Verified Date/Time: 02/24/2018 20:12:50 Reading Location: [address] Body Reading Room TINE KINASE (CK), TOTAL AND [id number] 18:06:00* Test Item Value Reference Range Comments CREATINE KINASE TOTAL (BEAKER) (test vfan=754) 13 U/L 29-200 CREATINE KINASE-MB (BEAKER) (test ulqp=970) 0.1 ng/mL 0.0-6.6 CREATINE KINASE-MB INDEX (BEAKER) (test vubp=137) 0.8 % Unable to Calculate CK-MB Reference Range:<6.7 Normal6.7-10.0 Borderline>10.0 AbnormalCBC W/PLT COUNT & AUTO [id number] 18:06:00* Test Item Value Reference Range Comments WHITE BLOOD CELL COUNT (BEAKER) (test hxhm=977) 10.0 K/ L 3.5-10.5 RED BLOOD CELL COUNT (BEAKER) (test oewv=444) 2.51 M/ L 3.93-5.22 HEMOGLOBIN (BEAKER) (test nqnr=809) 5.6 GM/DL 11.2-15.7 HEMATOCRIT (BEAKER) (test akqj=026) 17.9 % 34.1-44.9 MEAN CORPUSCULAR VOLUME (BEAKER) (test egtv=303) 71.3 fL 79.4-94.8 MEAN CORPUSCULAR HEMOGLOBIN (BEAKER) (test crdu=496) 22.3 pg 25.6-32.2 MEAN CORPUSCULAR HEMOGLOBIN CONC (BEAKER) (test evuw=433) 31.3 GM/DL 32.2-35.5 RED CELL DISTRIBUTION WIDTH (BEAKER) (test rdbb=481) 17.8 % 11.7-14.4 PLATELET COUNT (BEAKER) (test iiml=046) 192 K/CU MM 150-450 MEAN PLATELET VOLUME (BEAKER) (test fcmi=036) 10.3 fL 9.4-12.3 NUCLEATED RED BLOOD CELLS (BEAKER) (test pkaq=986) 8 /100 WBC 0-0 TROPONIN [id number] 18:05:00* Test Item Value Reference Range Comments TROPONIN I (BEAKER) (test hcmx=820) < ng/mL 0.00-0.03 Troponin I (TnI) levels must be interpreted in the context of the presenting sym ptoms and the clinical findings. Elevated TnI levels indicate myocardial damage, but are not specific for ischemic heart disease. Elevated TnI levels are seen i n patients with other cardiac conditions (including myocarditis and congestive h eart failure), and slight TnI elevations occur in patients with other conditions , including sepsis, renal failure, acidosis, acute neurological disease, and per sistent tachyarrhythmia.COMPREHENSIVE METABOLIC [id number] 17:59:00* Test Item Value Reference Range Comments TOTAL PROTEIN (BEAKER) (test abii=455) 6.1 gm/dL 6.0-8.3 ALBUMIN (BEAKER) (test wanl=8399) 4.0 g/dL 3.5-5.0 ALKALINE PHOSPHATASE (BEAKER) (test svyt=133) 69 U/L 40-150 BILIRUBIN TOTAL (BEAKER) (test ivqy=832) 1.6 mg/dL 0.2-1.2 SODIUM (BEAKER) (test imaf=549) 140 meq/L 136-145 POTASSIUM (BEAKER) (test wrhu=210) 3.4 meq/L 3.5-5.1 CHLORIDE (BEAKER) (test yjrx=131) 108 meq/L 98-107 CO2 (BEAKER) (test dofi=944) 26 meq/L 22-29 BLOOD UREA NITROGEN (BEAKER) (test mykw=160) 4 mg/dL 7-21 CREATININE (BEAKER) (test hakg=617) 0.55 mg/dL 0.57-1.25 GLUCOSE RANDOM (BEAKER) (test ztco=410) 102 mg/dL 70-105 CALCIUM (BEAKER) (test ytkp=230) 9.0 mg/dL 8.4-10.2 AST (SGOT) (BEAKER) (test ijek=753) 25 U/L 5-34 ALT (SGPT) (BEAKER) (test zwjs=046) 16 U/L 6-55 EGFR (BEAKER) (test odxq=7833) 169 mL/min/1.73 sq m ESTIMATED GFR IS NOT ACCURATE CREATININE CLEARANCE IN PREDICTING GLOMERULAR FILTRATION RATE. ESTIMATED GFR IS NOT APPLICABLE FOR DIALYSIS PATIENTS. RETICULOCYTE [id number] 17:47:00* Test Item Value Reference Range Comments RETICULOCYTE COUNT PCT (BEAKER) (test rlte=992) 12.1 % 0.5-1.7 POCT-LACTIC ACID, [id number] 17:37:00* Test Item Value Reference Range Comments POC-LACTIC ACID, VENOUS (BEAKER) (test sxxm=3419) 0.6 mmol/L 0.9-1.7 TESTED AT [facility] [address] [facility] [address] CBC W/PLT COUNT & AUTO [id number] 08:57:00* Test Item Value Reference Range Comments WHITE BLOOD CELL COUNT (BEAKER) (test qhrg=459) 6.2 K/ L 3.5-10.5 RED BLOOD CELL COUNT (BEAKER) (test qbfz=967) 3.04 M/ L 3.93-5.22 HEMOGLOBIN (BEAKER) (test kbax=867) 6.9 GM/DL 11.2-15.7 HEMATOCRIT (BEAKER) (test wnvd=761) 22.5 % 34.1-44.9 MEAN CORPUSCULAR VOLUME (BEAKER) (test swpi=640) 74.0 fL 79.4-94.8 MEAN CORPUSCULAR HEMOGLOBIN (BEAKER) (test wdka=580) 22.7 pg 25.6-32.2 MEAN CORPUSCULAR HEMOGLOBIN CONC (BEAKER) (test ojkd=012) 30.7 GM/DL 32.2-35.5 RED CELL DISTRIBUTION WIDTH (BEAKER) (test fyds=367) 18.8 % 11.7-14.4 PLATELET COUNT (BEAKER) (test nqin=353) 197 K/CU MM 150-450 MEAN PLATELET VOLUME (BEAKER) (test hcff=408) 9.4 fL 9.4-12.3 NUCLEATED RED BLOOD CELLS (BEAKER) (test trcw=639) 4 /100 WBC 0-0 NEUTROPHILS RELATIVE PERCENT (BEAKER) (test xfqs=373) 62 % LYMPHOCYTES RELATIVE PERCENT (BEAKER) (test xkxh=159) 21 % MONOCYTES RELATIVE PERCENT (BEAKER) (test wejn=001) 9 % EOSINOPHILS RELATIVE PERCENT (BEAKER) (test javi=344) 7 % BASOPHILS RELATIVE PERCENT (BEAKER) (test vmxw=631) 1 % NEUTROPHILS ABSOLUTE COUNT (BEAKER) (test ngtm=580) 3.81 K/ L 1.56-6.13 LYMPHOCYTES ABSOLUTE COUNT (BEAKER) (test etin=004) 1.31 K/ L 1.18-3.74 MONOCYTES ABSOLUTE COUNT (BEAKER) (test iufm=938) 0.57 K/ L 0.24-0.36 EOSINOPHILS ABSOLUTE COUNT (BEAKER) (test irsi=247) 0.42 K/ L 0.04-0.36 BASOPHILS ABSOLUTE COUNT (BEAKER) (test odru=722) 0.04 K/ L 0.01-0.08 IMMATURE GRANULOCYTES-RELATIVE PERCENT (BEAKER) (test layx=6891) 0 % 0-1 BASIC METABOLIC [id number] 06:05:00* Test Item Value Reference Range Comments SODIUM (BEAKER) (test qrmh=874) 143 meq/L 136-145 POTASSIUM (BEAKER) (test qzdc=039) 3.6 meq/L 3.5-5.1 CHLORIDE (BEAKER) (test dxck=832) 109 meq/L 98-107 CO2 (BEAKER) (test yfhq=107) 27 meq/L 22-29 BLOOD UREA NITROGEN (BEAKER) (test pkcr=107) 6 mg/dL 7-21 CREATININE (BEAKER) (test jfue=483) 0.52 mg/dL 0.57-1.25 GLUCOSE RANDOM (BEAKER) (test xkav=085) 95 mg/dL 70-105 CALCIUM (BEAKER) (test iiho=784) 8.7 mg/dL 8.4-10.2 EGFR (BEAKER) (test alxd=6851) 180 mL/min/1.73 sq m ESTIMATED GFR IS NOT ACCURATE CREATININE CLEARANCE IN PREDICTING GLOMERULAR FILTRATION RATE. ESTIMATED GFR IS NOT APPLICABLE FOR DIALYSIS PATIENTS. CBC W/PLT COUNT & AUTO [id number] 14:32:00* Test Item Value Reference Range Comments WHITE BLOOD CELL COUNT (BEAKER) (test nore=422) 7.4 K/ L 3.5-10.5 RED BLOOD CELL COUNT (BEAKER) (test mcxy=000) 3.03 M/ L 3.93-5.22 HEMOGLOBIN (BEAKER) (test xxvn=894) 6.8 GM/DL 11.2-15.7 HEMATOCRIT (BEAKER) (test pehy=303) 22.2 % 34.1-44.9 MEAN CORPUSCULAR VOLUME (BEAKER) (test nhpv=425) 73.3 fL 79.4-94.8 MEAN CORPUSCULAR HEMOGLOBIN (BEAKER) (test yxcz=661) 22.4 pg 25.6-32.2 MEAN CORPUSCULAR HEMOGLOBIN CONC (BEAKER) (test oadn=327) 30.6 GM/DL 32.2-35.5 RED CELL DISTRIBUTION WIDTH (BEAKER) (test wkqt=118) 19.5 % 11.7-14.4 PLATELET COUNT (BEAKER) (test nsio=236) 213 K/CU MM 150-450 MEAN PLATELET VOLUME (BEAKER) (test rmmy=159) 9.5 fL 9.4-12.3 NUCLEATED RED BLOOD CELLS (BEAKER) (test wnhl=881) 4 /100 WBC 0-0 NEUTROPHILS RELATIVE PERCENT (BEAKER) (test fuik=434) 65 % LYMPHOCYTES RELATIVE PERCENT (BEAKER) (test zhxu=267) 21 % MONOCYTES RELATIVE PERCENT (BEAKER) (test hxol=752) 8 % EOSINOPHILS RELATIVE PERCENT (BEAKER) (test vyat=762) 5 % BASOPHILS RELATIVE PERCENT (BEAKER) (test vjnc=841) 0 % NEUTROPHILS ABSOLUTE COUNT (BEAKER) (test unqj=663) 4.84 K/ L 1.56-6.13 LYMPHOCYTES ABSOLUTE COUNT (BEAKER) (test dtjh=146) 1.54 K/ L 1.18-3.74 MONOCYTES ABSOLUTE COUNT (BEAKER) (test ucqx=717) 0.62 K/ L 0.24-0.36 EOSINOPHILS ABSOLUTE COUNT (BEAKER) (test pgjp=139) 0.34 K/ L 0.04-0.36 BASOPHILS ABSOLUTE COUNT (BEAKER) (test txgy=692) 0.03 K/ L 0.01-0.08 IMMATURE GRANULOCYTES-RELATIVE PERCENT (BEAKER) (test cxiy=2686) 1 % 0-1 BASIC METABOLIC [id number] 13:58:00* Test Item Value Reference Range Comments SODIUM (BEAKER) (test xbpz=702) 143 meq/L 136-145 POTASSIUM (BEAKER) (test jfyh=272) 3.6 meq/L 3.5-5.1 CHLORIDE (BEAKER) (test ajru=246) 110 meq/L 98-107 CO2 (BEAKER) (test btjj=366) 28 meq/L 22-29 BLOOD UREA NITROGEN (BEAKER) (test owmj=287) 4 mg/dL 7-21 CREATININE (BEAKER) (test lnhp=100) 0.48 mg/dL 0.57-1.25 GLUCOSE RANDOM (BEAKER) (test xnjs=015) 79 mg/dL 70-105 CALCIUM (BEAKER) (test belq=479) 8.6 mg/dL 8.4-10.2 EGFR (BEAKER) (test oxmg=1920) 198 mL/min/1.73 sq m ESTIMATED GFR IS NOT ACCURATE CREATININE CLEARANCE IN PREDICTING GLOMERULAR FILTRATION RATE. ESTIMATED GFR IS NOT APPLICABLE FOR DIALYSIS PATIENTS. CBC W/PLT COUNT & AUTO [id number] 07:26:00* Test Item Value Reference Range Comments WHITE BLOOD CELL COUNT (BEAKER) (test wixk=512) 10.0 K/ L 3.5-10.5 RED BLOOD CELL COUNT (BEAKER) (test ljww=535) 2.96 M/ L 3.93-5.22 HEMOGLOBIN (BEAKER) (test mymu=613) 6.6 GM/DL 11.2-15.7 HEMATOCRIT (BEAKER) (test ozfy=907) 20.9 % 34.1-44.9 MEAN CORPUSCULAR VOLUME (BEAKER) (test akwd=905) 70.6 fL 79.4-94.8 MEAN CORPUSCULAR HEMOGLOBIN (BEAKER) (test pgwc=160) 22.3 pg 25.6-32.2 MEAN CORPUSCULAR HEMOGLOBIN CONC (BEAKER) (test maap=162) 31.6 GM/DL 32.2-35.5 RED CELL DISTRIBUTION WIDTH (BEAKER) (test rgeu=595) 19.9 % 11.7-14.4 PLATELET COUNT (BEAKER) (test lynf=539) 240 K/CU MM 150-450 MEAN PLATELET VOLUME (BEAKER) (test xeta=176) 10.0 fL 9.4-12.3 NUCLEATED RED BLOOD CELLS (BEAKER) (test sgww=403) 3 /100 WBC 0-0 NEUTROPHILS RELATIVE PERCENT (BEAKER) (test oexs=413) 62 % LYMPHOCYTES RELATIVE PERCENT (BEAKER) (test eekk=118) 23 % MONOCYTES RELATIVE PERCENT (BEAKER) (test oxye=905) 9 % EOSINOPHILS RELATIVE PERCENT (BEAKER) (test fvvf=421) 4 % BASOPHILS RELATIVE PERCENT (BEAKER) (test vuns=003) 1 % NEUTROPHILS ABSOLUTE COUNT (BEAKER) (test yksw=793) 6.19 K/ L 1.56-6.13 LYMPHOCYTES ABSOLUTE COUNT (BEAKER) (test tymy=185) 2.25 K/ L 1.18-3.74 MONOCYTES ABSOLUTE COUNT (BEAKER) (test urfe=900) 0.85 K/ L 0.24-0.36 EOSINOPHILS ABSOLUTE COUNT (BEAKER) (test qhne=635) 0.40 K/ L 0.04-0.36 BASOPHILS ABSOLUTE COUNT (BEAKER) (test bsep=586) 0.09 K/ L 0.01-0.08 IMMATURE GRANULOCYTES-RELATIVE PERCENT (BEAKER) (test dlgg=9218) 2 % 0-1 RAD, CHEST, 1 VIEW, NON [id number] 21:59:00Reason for exam:->SOB / Sickle cell crisisShould [...] Date/Time: 02/12/2018 21:59:43 Reading Loca tion: OQMT [address] [place] [address] Reading Room W/PLT COUNT & AUTO DIFFERENTIAL 2018-02-12 08:32:00* Test Item Value Reference Range Comments WHITE BLOOD CELL COUNT (BEAKER) (test xaen=657) 8.3 K/ L 3.5-10.5 RED BLOOD CELL COUNT (BEAKER) (test ibdk=944) 2.38 M/ L 3.93-5.22 HEMOGLOBIN (BEAKER) (test sqzy=955) 5.2 GM/DL 11.2-15.7 HEMATOCRIT (BEAKER) (test brav=588) 16.7 % 34.1-44.9 MEAN CORPUSCULAR VOLUME (BEAKER) (test pwkm=982) 70.2 fL 79.4-94.8 MEAN CORPUSCULAR HEMOGLOBIN (BEAKER) (test abmc=093) 21.8 pg 25.6-32.2 MEAN CORPUSCULAR HEMOGLOBIN CONC (BEAKER) (test glnz=028) 31.1 GM/DL 32.2-35.5 RED CELL DISTRIBUTION WIDTH (BEAKER) (test anfg=438) 19.5 % 11.7-14.4 PLATELET COUNT (BEAKER) (test tbfc=083) 222 K/CU MM 150-450 MEAN PLATELET VOLUME (BEAKER) (test itpa=864) 10.0 fL 9.4-12.3 NUCLEATED RED BLOOD CELLS (BEAKER) (test lkvd=141) 2 /100 WBC 0-0 NEUTROPHILS RELATIVE PERCENT (BEAKER) (test equt=738) 46 % LYMPHOCYTES RELATIVE PERCENT (BEAKER) (test lwtt=001) 37 % MONOCYTES RELATIVE PERCENT (BEAKER) (test tkpj=611) 11 % EOSINOPHILS RELATIVE PERCENT (BEAKER) (test apry=967) 5 % BASOPHILS RELATIVE PERCENT (BEAKER) (test rygw=175) 0 % NEUTROPHILS ABSOLUTE COUNT (BEAKER) (test fnnc=615) 3.82 K/ L 1.56-6.13 LYMPHOCYTES ABSOLUTE COUNT (BEAKER) (test oile=009) 3.10 K/ L 1.18-3.74 MONOCYTES ABSOLUTE COUNT (BEAKER) (test zuez=145) 0.93 K/ L 0.24-0.36 EOSINOPHILS ABSOLUTE COUNT (BEAKER) (test xxbi=530) 0.39 K/ L 0.04-0.36 BASOPHILS ABSOLUTE COUNT (BEAKER) (test pdas=986) 0.02 K/ L 0.01-0.08 IMMATURE GRANULOCYTES-RELATIVE PERCENT (BEAKER) (test rwnf=3936) 0 % 0-1 IRON, TIBC, % SAT. (WITHOUT FERRITIN)2018-02-12 07:39:00* Test Item Value Reference Range Comments IRON (BEAKER) (test pthd=165) 117 ug/dL 40-160 TOTAL IRON BINDING CAPACITY (BEAKER) (test dplw=823) 131 ug/dL 250-450 IRON % SATURATION (2) (BEAKER) (test ialo=1137) 89 % 20-55 COMPREHENSIVE METABOLIC [id number] 06:08:00* Test Item Value Reference Range Comments TOTAL PROTEIN (BEAKER) (test qjjo=599) 5.0 gm/dL 6.0-8.3 ALBUMIN (BEAKER) (test dbhh=4592) 3.5 g/dL 3.5-5.0 ALKALINE PHOSPHATASE (BEAKER) (test rhlm=565) 76 U/L 40-150 BILIRUBIN TOTAL (BEAKER) (test awws=855) 1.5 mg/dL 0.2-1.2 SODIUM (BEAKER) (test twxk=378) 145 meq/L 136-145 POTASSIUM (BEAKER) (test yakm=181) 3.9 meq/L 3.5-5.1 CHLORIDE (BEAKER) (test jfad=773) 114 meq/L 98-107 CO2 (BEAKER) (test lskm=214) 24 meq/L 22-29 BLOOD UREA NITROGEN (BEAKER) (test osis=645) 6 mg/dL 7-21 CREATININE (BEAKER) (test rzam=028) 0.45 mg/dL 0.57-1.25 GLUCOSE RANDOM (BEAKER) (test ucdh=855) 79 mg/dL 70-105 CALCIUM (BEAKER) (test rhcx=185) 8.1 mg/dL 8.4-10.2 AST (SGOT) (BEAKER) (test suvi=794) 19 U/L 5-34 ALT (SGPT) (BEAKER) (test guyi=008) 6 U/L 6-55 EGFR (BEAKER) (test twhe=6718) 213 mL/min/1.73 sq m ESTIMATED GFR IS NOT ACCURATE CREATININE CLEARANCE IN PREDICTING GLOMERULAR FILTRATION RATE. ESTIMATED GFR IS NOT APPLICABLE FOR DIALYSIS PATIENTS. CBC (HEMOGRAM ONLY)2018-02-11 06:04:00* Test Item Value Reference Range Comments WHITE BLOOD CELL COUNT (BEAKER) (test kggj=817) 9.6 K/ L 3.5-10.5 RED BLOOD CELL COUNT (BEAKER) (test mncp=210) 2.75 M/ L 3.93-5.22 HEMOGLOBIN (BEAKER) (test vpdu=591) 6.0 GM/DL 11.2-15.7 HEMATOCRIT (BEAKER) (test gmhk=870) 19.4 % 34.1-44.9 MEAN CORPUSCULAR VOLUME (BEAKER) (test zbjt=544) 70.5 fL 79.4-94.8 MEAN CORPUSCULAR HEMOGLOBIN (BEAKER) (test qcfa=091) 21.8 pg 25.6-32.2 MEAN CORPUSCULAR HEMOGLOBIN CONC (BEAKER) (test somn=989) 30.9 GM/DL 32.2-35.5 RED CELL DISTRIBUTION WIDTH (BEAKER) (test xbkd=007) 20.4 % 11.7-14.4 PLATELET COUNT (BEAKER) (test hajx=657) 261 K/CU MM 150-450 MEAN PLATELET VOLUME (BEAKER) (test ubjd=688) 9.8 fL 9.4-12.3 NUCLEATED RED BLOOD CELLS (BEAKER) (test arbl=864) 2 /100 WBC 0-0 SCREEN, [id number] 14:56:00* Test Item Value Reference Range Comments TEST URINE (BEAKER) (test ueqt=473) Negative RAD, CHEST, 2 [id number] 14:56:00Reason for exam:->SICKLE CELL PAIN CRISIS FINAL [...] IMPRESSION: No acute cardiopulmonary abnormality. Signed: Calixto Guadarramaort Verified Date/Time: 02/10/2018 14:56:16 Reading Locati on: [facility] B1 C013T Transitional Reading Room C METABOLIC [id number] 02:13:00* Test Item Value Reference Range Comments SODIUM (BEAKER) (test ukce=627) 139 meq/L 136-145 POTASSIUM (BEAKER) (test uhcm=040) 4.4 meq/L 3.5-5.1 CHLORIDE (BEAKER) (test skdv=599) 112 meq/L 98-107 CO2 (BEAKER) (test zqxb=280) 19 meq/L 22-29 BLOOD UREA NITROGEN (BEAKER) (test pone=408) 4 mg/dL 7-21 CREATININE (BEAKER) (test kdpb=155) 0.53 mg/dL 0.57-1.25 GLUCOSE RANDOM (BEAKER) (test isgc=642) 85 mg/dL 70-105 CALCIUM (BEAKER) (test zucc=881) 9.5 mg/dL 8.4-10.2 EGFR (BEAKER) (test lxwc=6974) 176 mL/min/1.73 sq m ESTIMATED GFR IS NOT ACCURATE CREATININE CLEARANCE IN PREDICTING GLOMERULAR FILTRATION RATE. ESTIMATED GFR IS NOT APPLICABLE FOR DIALYSIS PATIENTS. Specimen slightly ictericCBC W/PLT COUNT & AUTO [id number] 01:52:00 * Test Item Value Reference Range Comments WHITE BLOOD CELL COUNT (BEAKER) (test midl=561) 9.8 K/ L 3.5-10.5 RED BLOOD CELL COUNT (BEAKER) (test zxgr=402) 3.27 M/ L 3.93-5.22 HEMOGLOBIN (BEAKER) (test ljkg=481) 7.0 GM/DL 11.2-15.7 HEMATOCRIT (BEAKER) (test tspj=245) 22.8 % 34.1-44.9 MEAN CORPUSCULAR VOLUME (BEAKER) (test upwo=493) 69.7 fL 79.4-94.8 MEAN CORPUSCULAR HEMOGLOBIN (BEAKER) (test ooou=723) 21.4 pg 25.6-32.2 MEAN CORPUSCULAR HEMOGLOBIN CONC (BEAKER) (test dpyr=487) 30.7 GM/DL 32.2-35.5 RED CELL DISTRIBUTION WIDTH (BEAKER) (test ffin=316) 19.1 % 11.7-14.4 PLATELET COUNT (BEAKER) (test mgif=132) 303 K/CU MM 150-450 MEAN PLATELET VOLUME (BEAKER) (test mhpo=474) 9.6 fL 9.4-12.3 NUCLEATED RED BLOOD CELLS (BEAKER) (test xyoc=679) 2 /100 WBC 0-0 NEUTROPHILS RELATIVE PERCENT (BEAKER) (test xljm=745) 54 % LYMPHOCYTES RELATIVE PERCENT (BEAKER) (test txce=084) 30 % MONOCYTES RELATIVE PERCENT (BEAKER) (test brvg=465) 12 % EOSINOPHILS RELATIVE PERCENT (BEAKER) (test zsra=378) 3 % BASOPHILS RELATIVE PERCENT (BEAKER) (test abvv=035) 2 % NEUTROPHILS ABSOLUTE COUNT (BEAKER) (test apji=866) 5.24 K/ L 1.56-6.13 LYMPHOCYTES ABSOLUTE COUNT (BEAKER) (test ptrr=451) 2.89 K/ L 1.18-3.74 MONOCYTES ABSOLUTE COUNT (BEAKER) (test lumb=472) 1.13 K/ L 0.24-0.36 EOSINOPHILS ABSOLUTE COUNT (BEAKER) (test fzgh=318) 0.32 K/ L 0.04-0.36 BASOPHILS ABSOLUTE COUNT (BEAKER) (test elkq=077) 0.16 K/ L 0.01-0.08 IMMATURE GRANULOCYTES-RELATIVE PERCENT (BEAKER) (test lfco=2029) 0 % 0-1 RETICULOCYTE [id number] 01:52:00* Test Item Value Reference Range Comments RETICULOCYTE COUNT PCT (BEAKER) (test ibgz=867) 8.7 % 0.5-1.7 BLOOD [id number] 06:00:00* Test Item Value Reference Range Comments CULTURE (BEAKER) (test abai=4559) No growth in 5 days BLOOD [id number] 06:00:00* Test Item Value Reference Range Comments CULTURE (BEAKER) (test xbov=1453) No growth in 5 days EEG AWAKE AND [id number] 14:41:00Reason for exam:->multiple episodes of LOC with lip smackingDATE OF TEST: 12/12/2017 DATE OF REPORT 12/12/2017 ACC: [id number] Start time: 0849 Stop time: 0910 ICD-10: R56.9 CPT Code: 31692 HISTORY: 22 yo F w/ episodes of [...] clinical or electrographic seizures were recorded. Kaur Leong M.D. Neurophysiology Fellow German Mckay [facility] Epilepsy/Neurophysiology Attending' [id number] 08:58:00* Test Item Value Reference Range Comments FERRITIN (BEAKER) (test aqyg=767) 955 ng/mL 5-275 CBC W/PLT COUNT & AUTO [id number] 07:21:00* Test Item Value Reference Range Comments WHITE BLOOD CELL COUNT (BEAKER) (test gcuj=704) 10.1 K/ L 3.5-10.5 RED BLOOD CELL COUNT (BEAKER) (test mlva=736) 3.20 M/ L 3.93-5.22 HEMOGLOBIN (BEAKER) (test ncsd=637) 7.3 GM/DL 11.2-15.7 HEMATOCRIT (BEAKER) (test qxbl=031) 23.0 % 34.1-44.9 MEAN CORPUSCULAR VOLUME (BEAKER) (test gggy=266) 71.9 fL 79.4-94.8 MEAN CORPUSCULAR HEMOGLOBIN (BEAKER) (test eqpl=165) 22.8 pg 25.6-32.2 MEAN CORPUSCULAR HEMOGLOBIN CONC (BEAKER) (test kabo=975) 31.7 GM/DL 32.2-35.5 RED CELL DISTRIBUTION WIDTH (BEAKER) (test hzkw=105) 17.2 % 11.7-14.4 PLATELET COUNT (BEAKER) (test looz=684) 333 K/CU MM 150-450 MEAN PLATELET VOLUME (BEAKER) (test trbo=444) 10.3 fL 9.4-12.3 NUCLEATED RED BLOOD CELLS (BEAKER) (test fgpu=044) 3 /100 WBC 0-0 NEUTROPHILS RELATIVE PERCENT (BEAKER) (test ekqr=875) 56 % LYMPHOCYTES RELATIVE PERCENT (BEAKER) (test ksnj=478) 31 % MONOCYTES RELATIVE PERCENT (BEAKER) (test lhzx=646) 11 % EOSINOPHILS RELATIVE PERCENT (BEAKER) (test rijv=633) 1 % BASOPHILS RELATIVE PERCENT (BEAKER) (test fkck=875) 1 % NEUTROPHILS ABSOLUTE COUNT (BEAKER) (test xygj=181) 5.62 K/ L 1.56-6.13 LYMPHOCYTES ABSOLUTE COUNT (BEAKER) (test zzia=651) 3.13 K/ L 1.18-3.74 MONOCYTES ABSOLUTE COUNT (BEAKER) (test jgcg=792) 1.14 K/ L 0.24-0.36 EOSINOPHILS ABSOLUTE COUNT (BEAKER) (test ubdm=987) 0.08 K/ L 0.04-0.36 BASOPHILS ABSOLUTE COUNT (BEAKER) (test tmfl=533) 0.08 K/ L 0.01-0.08 IMMATURE GRANULOCYTES-RELATIVE PERCENT (BEAKER) (test nuxd=1664) 1 % 0-1 (MANUAL DIFFERENTIAL)2017-12-29 07:21:00* Test Item Value Reference Range Comments TOTAL COUNTED (BEAKER) (test vnsj=5745) IRON, TIBC, % SAT. (WITHOUT FERRITIN)2017-12-29 07:11:00* Test Item Value Reference Range Comments IRON (BEAKER) (test ahrp=424) 119 ug/dL 40-160 TOTAL IRON BINDING CAPACITY (BEAKER) (test biit=864) 234 ug/dL 250-450 IRON % SATURATION (2) (BEAKER) (test fuia=1408) 51 % 20-55 [id number] 07:03:00* Test Item Value Reference Range Comments MAGNESIUM (BEAKER) (test esnm=079) 2.8 mg/dL 1.6-2.6 BASIC METABOLIC [id number] 07:03:00* Test Item Value Reference Range Comments SODIUM (BEAKER) (test bauw=535) 142 meq/L 136-145 POTASSIUM (BEAKER) (test lcqh=764) 4.0 meq/L 3.5-5.1 CHLORIDE (BEAKER) (test htoy=644) 112 meq/L 98-107 CO2 (BEAKER) (test bson=791) 22 meq/L 22-29 BLOOD UREA NITROGEN (BEAKER) (test azzt=143) 9 mg/dL 7-21 CREATININE (BEAKER) (test pbzu=756) 0.59 mg/dL 0.57-1.25 GLUCOSE RANDOM (BEAKER) (test cmzv=599) 88 mg/dL 70-105 CALCIUM (BEAKER) (test ogbj=761) 9.1 mg/dL 8.4-10.2 EGFR (BEAKER) (test dmyo=4775) 156 mL/min/1.73 sq m ESTIMATED GFR IS NOT ACCURATE CREATININE CLEARANCE IN PREDICTING GLOMERULAR FILTRATION RATE. ESTIMATED GFR IS NOT APPLICABLE FOR DIALYSIS PATIENTS. MR, BRAIN, WITHOUT [id number] 13:30:00Seizure protocolFINAL REPORT MRI brain Comparison: Head [...] No other suspicious epileptogenic lesion. Flow-voids are se en in the basilar and internal carotid arteries as well as in the large posterio r dural sinuses. The pineal and craniocervical junction regions are unremarkable . The visualized orbital contents, paranasal sinuses, and surrounding soft tissu es are unremarkable. . There is a potential T2 hyperintense nodule of the rig ht-sided pituitary gland. Pituitary microadenoma is suspected. There is diffusel y altered bone marrow signal. Findings suggest a systemic process. No evidence o f focal bone lesion. Impressions: 1. Right-sided mesial temporal sclerosis. 2. Potential right-sided pituitary microadenoma. Consider dedicated sella protocol MRI. 3. Diffusely altered bone marrow signal warranting clinical correlation. S igned: Jann Saavedra Verified Date/Time: 12/28/2017 13:30:34 Elec tronically signed by: JANN SAAVEDRA M.D. on 12/28/2017 01:30 PM MR, MRA, BRAIN, WITHOUT [id number] 13:22:00Reason for exam:->Ischemic Stroke Evaluation FINAL REPORT [...] aneurysm. IMPRESSIO N: Negative intracranial MRA. Signed: Pamela Hassan Verified Date/Ti me: 12/28/2017 13:22:21 Reading Location: [address] Neuro Reading Room El ectronically signed by: PAMELA HASSAN M.D. on 12/28/2017 01:22 PM MR, ABDOMEN, WITHOUT [id number] 13:02:00FINAL REPORT MRI OF THE ABDOMEN CLINICAL [...] [facility] Definitive characterization is limited by lack of intravenous contra st. ADRENALS: No nodules.KIDNEYS: No hydronephrosis or hydroureter. No solid bar al lesion. PERITONEUM/RETROPERITONEUM: No ascites.LYMPH NODES: No upper abdomina l lymphadenopathy. VESSELS: Abdominal aorta is normal in [...] of the liver and spleen. Signed: Wiliam Rankin Verified Date /Time: 12/28/2017 13:02:16 Reading Location: [address] Radiology Reading Ro om [id number] 09:30:00* Test Item Value Reference Range Comments MAGNESIUM (BEAKER) (test oexl=100) 2.6 mg/dL 1.6-2.6 BASIC METABOLIC [id number] 09:30:00* Test Item Value Reference Range Comments SODIUM (BEAKER) (test csdi=090) 142 meq/L 136-145 POTASSIUM (BEAKER) (test smnz=392) 3.6 meq/L 3.5-5.1 CHLORIDE (BEAKER) (test kmxz=996) 111 meq/L 98-107 CO2 (BEAKER) (test evmp=359) 22 meq/L 22-29 BLOOD UREA NITROGEN (BEAKER) (test wegx=355) 9 mg/dL 7-21 CREATININE (BEAKER) (test upti=193) 0.60 mg/dL 0.57-1.25 GLUCOSE RANDOM (BEAKER) (test qcuj=391) 94 mg/dL 70-105 CALCIUM (BEAKER) (test acfn=854) 9.4 mg/dL 8.4-10.2 EGFR (BEAKER) (test lpzo=0797) 153 mL/min/1.73 sq m ESTIMATED GFR IS NOT ACCURATE CREATININE CLEARANCE IN PREDICTING GLOMERULAR FILTRATION RATE. ESTIMATED GFR IS NOT APPLICABLE FOR DIALYSIS PATIENTS. CBC W/PLT COUNT & AUTO [id number] 09:08:00* Test Item Value Reference Range Comments WHITE BLOOD CELL COUNT (BEAKER) (test kfmt=950) 10.9 K/ L 3.5-10.5 RED BLOOD CELL COUNT (BEAKER) (test oyzw=582) 3.33 M/ L 3.93-5.22 HEMOGLOBIN (BEAKER) (test ucpv=027) 7.5 GM/DL 11.2-15.7 HEMATOCRIT (BEAKER) (test bjhv=556) 24.1 % 34.1-44.9 MEAN CORPUSCULAR VOLUME (BEAKER) (test pdlw=037) 72.4 fL 79.4-94.8 MEAN CORPUSCULAR HEMOGLOBIN (BEAKER) (test wkvt=562) 22.5 pg 25.6-32.2 MEAN CORPUSCULAR HEMOGLOBIN CONC (BEAKER) (test hhea=700) 31.1 GM/DL 32.2-35.5 RED CELL DISTRIBUTION WIDTH (BEAKER) (test exgl=703) 17.2 % 11.7-14.4 PLATELET COUNT (BEAKER) (test kojg=260) 363 K/CU MM 150-450 MEAN PLATELET VOLUME (BEAKER) (test uvxk=104) 10.1 fL 9.4-12.3 NUCLEATED RED BLOOD CELLS (BEAKER) (test ndpb=406) 5 /100 WBC 0-0 NEUTROPHILS RELATIVE PERCENT (BEAKER) (test ieum=926) 65 % LYMPHOCYTES RELATIVE PERCENT (BEAKER) (test ofny=079) 21 % MONOCYTES RELATIVE PERCENT (BEAKER) (test hyoo=532) 12 % EOSINOPHILS RELATIVE PERCENT (BEAKER) (test hnfo=703) 0 % BASOPHILS RELATIVE PERCENT (BEAKER) (test gldy=482) 1 % NEUTROPHILS ABSOLUTE COUNT (BEAKER) (test nvda=594) 7.12 K/ L 1.56-6.13 LYMPHOCYTES ABSOLUTE COUNT (BEAKER) (test avxv=762) 2.27 K/ L 1.18-3.74 MONOCYTES ABSOLUTE COUNT (BEAKER) (test lzrl=808) 1.27 K/ L 0.24-0.36 EOSINOPHILS ABSOLUTE COUNT (BEAKER) (test enxy=707) 0.04 K/ L 0.04-0.36 BASOPHILS ABSOLUTE COUNT (BEAKER) (test aazd=163) 0.15 K/ L 0.01-0.08 IMMATURE GRANULOCYTES-RELATIVE PERCENT (BEAKER) (test akhh=5348) 1 % 0-1 CBC W/PLT COUNT & AUTO [id number] 18:47:00* Test Item Value Reference Range Comments WHITE BLOOD CELL COUNT (BEAKER) (test dztr=730) 14.6 K/ L 3.5-10.5 RED BLOOD CELL COUNT (BEAKER) (test kayh=980) 3.19 M/ L 3.93-5.22 HEMOGLOBIN (BEAKER) (test cygr=431) 7.2 GM/DL 11.2-15.7 HEMATOCRIT (BEAKER) (test asnx=238) 23.3 % 34.1-44.9 MEAN CORPUSCULAR VOLUME (BEAKER) (test jygn=665) 73.0 fL 79.4-94.8 MEAN CORPUSCULAR HEMOGLOBIN (BEAKER) (test tdta=292) 22.6 pg 25.6-32.2 MEAN CORPUSCULAR HEMOGLOBIN CONC (BEAKER) (test fayf=398) 30.9 GM/DL 32.2-35.5 RED CELL DISTRIBUTION WIDTH (BEAKER) (test lnjr=010) 16.8 % 11.7-14.4 PLATELET COUNT (BEAKER) (test bewv=726) 361 K/CU MM 150-450 MEAN PLATELET VOLUME (BEAKER) (test ifku=106) 9.9 fL 9.4-12.3 NUCLEATED RED BLOOD CELLS (BEAKER) (test mllw=495) 5 /100 WBC 0-0 NEUTROPHILS RELATIVE PERCENT (BEAKER) (test ofce=692) 74 % LYMPHOCYTES RELATIVE PERCENT (BEAKER) (test iolx=663) 18 % MONOCYTES RELATIVE PERCENT (BEAKER) (test dads=051) 6 % EOSINOPHILS RELATIVE PERCENT (BEAKER) (test adqa=033) 0 % BASOPHILS RELATIVE PERCENT (BEAKER) (test eeow=989) 1 % NEUTROPHILS ABSOLUTE COUNT (BEAKER) (test viej=947) 10.83 K/ L 1.56-6.13 LYMPHOCYTES ABSOLUTE COUNT (BEAKER) (test phaa=780) 2.61 K/ L 1.18-3.74 MONOCYTES ABSOLUTE COUNT (BEAKER) (test zehw=572) 0.90 K/ L 0.24-0.36 EOSINOPHILS ABSOLUTE COUNT (BEAKER) (test hcfp=336) 0.01 K/ L 0.04-0.36 BASOPHILS ABSOLUTE COUNT (BEAKER) (test idiy=451) 0.11 K/ L 0.01-0.08 IMMATURE GRANULOCYTES-RELATIVE PERCENT (BEAKER) (test uklc=6133) 1 % 0-1 [id number] 07:56:00* Test Item Value Reference Range Comments MAGNESIUM (BEAKER) (test tass=673) 2.4 mg/dL 1.6-2.6 BASIC METABOLIC [id number] 07:56:00* Test Item Value Reference Range Comments SODIUM (BEAKER) (test rfpr=336) 142 meq/L 136-145 POTASSIUM (BEAKER) (test ffrk=541) 3.7 meq/L 3.5-5.1 CHLORIDE (BEAKER) (test rncd=058) 111 meq/L 98-107 CO2 (BEAKER) (test jeas=974) 20 meq/L 22-29 BLOOD UREA NITROGEN (BEAKER) (test vyuf=675) 5 mg/dL 7-21 CREATININE (BEAKER) (test oxye=444) 0.57 mg/dL 0.57-1.25 GLUCOSE RANDOM (BEAKER) (test aomd=688) 87 mg/dL 70-105 CALCIUM (BEAKER) (test rxnj=912) 9.4 mg/dL 8.4-10.2 EGFR (BEAKER) (test vkpk=7424) 162 mL/min/1.73 sq m ESTIMATED GFR IS NOT ACCURATE CREATININE CLEARANCE IN PREDICTING GLOMERULAR FILTRATION RATE. ESTIMATED GFR IS NOT APPLICABLE FOR DIALYSIS PATIENTS. CT, CHEST WITH IV CONTRAST- PE TEST [id number] 00:04:00Reason for exam:-> chest painIs the patient [...] Results discussed with Dr. Olsen Signed: Monse Siegel MDReport Verified Date/Time: 12/27/2017 00:04:32 Reading Location: [address] Reading Room ALYSIS W/ [id number] 22:12:00* Test Item Value Reference Range Comments COLOR (BEAKER) (test sjcb=561) Yellow CLARITY (BEAKER) (test zljj=388) Clear SPECIFIC GRAVITY UA (BEAKER) (test ospa=199) 1.009 1.001-1.035 PH UA (BEAKER) (test qkvg=970) 7.0 5.0-8.0 PROTEIN UA (BEAKER) (test slci=326) Negative Negative GLUCOSE UA (BEAKER) (test uhzw=720) Negative Negative KETONES UA (BEAKER) (test ifwk=721) 20 mg/dL Negative BILIRUBIN UA (BEAKER) (test aihx=027) Negative Negative BLOOD UA (BEAKER) (test wzny=465) Negative Negative NITRITE UA (BEAKER) (test tzgw=176) Negative Negative LEUKOCYTE ESTERASE UA (BEAKER) (test dzxd=678) Negative Negative UROBILINOGEN UA (BEAKER) (test pbkg=300) 0.2 mg/dL 0.2-1.0 RBC UA (BEAKER) (test hkqf=827) 0 /HPF WBC UA (BEAKER) (test vlkd=303) 1 /HPF BACTERIA (BEAKER) (test dowt=152) Occasional MUCUS (BEAKER) (test joah=5746) Moderate SQUAMOUS EPITHELIAL (BEAKER) (test xdks=188) 2 /HPF SOURCE(BEAKER) (test estf=5814) Urine, Clean Catch SCREEN, [id number] 22:10:00* Test Item Value Reference Range Comments TEST URINE (BEAKER) (test ihur=840) Negative CREATINE KINASE (CK), TOTAL AND [id number] 20:59:00* Test Item Value Reference Range Comments CREATINE KINASE TOTAL (BEAKER) (test xdzc=278) 32 U/L 29-200 CREATINE KINASE-MB (BEAKER) (test iwjx=049) 0.4 ng/mL 0.0-6.6 CREATINE KINASE-MB INDEX (BEAKER) (test kesd=885) 1.3 % CK-MB Reference Range:<6.7 Normal6.7-10.0 Borderline>10.0 Abnormal TROPONIN [id number] 20:59:00* Test Item Value Reference Range Comments TROPONIN I (BEAKER) (test njbk=565) < ng/mL 0.00-0.03 Troponin I (TnI) levels must be interpreted in the context of the presenting sym ptoms and the clinical findings. Elevated TnI levels indicate myocardial damage, but are not specific for ischemic heart disease. Elevated TnI levels are seen i n patients with other cardiac conditions (including myocarditis and congestive h eart failure), and slight TnI elevations occur in patients with other conditions , including sepsis, renal failure, acidosis, acute neurological disease, and per sistent tachyarrhythmia.BASIC METABOLIC [id number] 20:52:00* Test Item Value Reference Range Comments SODIUM (BEAKER) (test hgoo=682) 140 meq/L 136-145 POTASSIUM (BEAKER) (test akui=073) 3.7 meq/L 3.5-5.1 CHLORIDE (BEAKER) (test bbcj=176) 110 meq/L 98-107 CO2 (BEAKER) (test qngm=635) 24 meq/L 22-29 BLOOD UREA NITROGEN (BEAKER) (test wdvz=361) 7 mg/dL 7-21 CREATININE (BEAKER) (test ujzi=222) 0.56 mg/dL 0.57-1.25 GLUCOSE RANDOM (BEAKER) (test zujo=603) 96 mg/dL 70-105 CALCIUM (BEAKER) (test hjei=331) 9.0 mg/dL 8.4-10.2 EGFR (BEAKER) (test slei=8743) 166 mL/min/1.73 sq m ESTIMATED GFR IS NOT ACCURATE CREATININE CLEARANCE IN PREDICTING GLOMERULAR FILTRATION RATE. ESTIMATED GFR IS NOT APPLICABLE FOR DIALYSIS PATIENTS. CBC W/PLT COUNT & AUTO [id number] 20:40:00* Test Item Value Reference Range Comments WHITE BLOOD CELL COUNT (BEAKER) (test dgui=397) 15.2 K/ L 3.5-10.5 RED BLOOD CELL COUNT (BEAKER) (test rolt=466) 2.87 M/ L 3.93-5.22 HEMOGLOBIN (BEAKER) (test tgxp=235) 6.4 GM/DL 11.2-15.7 HEMATOCRIT (BEAKER) (test lsty=256) 21.1 % 34.1-44.9 MEAN CORPUSCULAR VOLUME (BEAKER) (test sgsw=256) 73.5 fL 79.4-94.8 MEAN CORPUSCULAR HEMOGLOBIN (BEAKER) (test fgfy=685) 22.3 pg 25.6-32.2 MEAN CORPUSCULAR HEMOGLOBIN CONC (BEAKER) (test vctr=954) 30.3 GM/DL 32.2-35.5 RED CELL DISTRIBUTION WIDTH (BEAKER) (test sigb=532) 16.3 % 11.7-14.4 PLATELET COUNT (BEAKER) (test mmgw=701) 343 K/CU MM 150-450 MEAN PLATELET VOLUME (BEAKER) (test uqmc=188) 10.9 fL 9.4-12.3 NUCLEATED RED BLOOD CELLS (BEAKER) (test clja=391) 2 /100 WBC 0-0 NEUTROPHILS RELATIVE PERCENT (BEAKER) (test rphy=323) 72 % LYMPHOCYTES RELATIVE PERCENT (BEAKER) (test thno=862) 17 % MONOCYTES RELATIVE PERCENT (BEAKER) (test ltnn=595) 9 % EOSINOPHILS RELATIVE PERCENT (BEAKER) (test akev=356) 0 % BASOPHILS RELATIVE PERCENT (BEAKER) (test assy=504) 1 % NEUTROPHILS ABSOLUTE COUNT (BEAKER) (test nuay=275) 11.02 K/ L 1.56-6.13 LYMPHOCYTES ABSOLUTE COUNT (BEAKER) (test mwpe=821) 2.61 K/ L 1.18-3.74 MONOCYTES ABSOLUTE COUNT (BEAKER) (test spko=355) 1.35 K/ L 0.24-0.36 EOSINOPHILS ABSOLUTE COUNT (BEAKER) (test rjbl=891) 0.00 K/ L 0.04-0.36 BASOPHILS ABSOLUTE COUNT (BEAKER) (test medz=007) 0.09 K/ L 0.01-0.08 IMMATURE GRANULOCYTES-RELATIVE PERCENT (BEAKER) (test rzis=3215) 1 % 0-1 CT, BRAIN, WITHOUT [id number] 19:35:00Reason for exam:->headacheIs the patient ?->UnknownWhat is [...] of acute intracranial abnormality. Signed: Jann Saavedra MDReport Verified Date/Time: 12/26/2017 19:35:03 , CHEST, 1 VIEW, NON [id number] 18:31:00Reason for exam:->CHEST PAINIs the patient ?->UnknownShould [...] at 6:30 PM on 12/26/2017. Signed: Wiliam Rankin MDReport Verified Date/Time: 12/26/2017 18:31:34 Reading Location: [facility] B1 C013W Consult Reading Room W/PLT COUNT & AUTO [id number] 13:40:00* Test Item Value Reference Range Comments WHITE BLOOD CELL COUNT (BEAKER) (test vlhr=909) 6.2 K/ L 3.5-10.5 RED BLOOD CELL COUNT (BEAKER) (test xfks=743) 2.98 M/ L 3.93-5.22 HEMOGLOBIN (BEAKER) (test gmbx=194) 7.1 GM/DL 11.2-15.7 HEMATOCRIT (BEAKER) (test mjtu=290) 22.7 % 34.1-44.9 MEAN CORPUSCULAR VOLUME (BEAKER) (test suyi=095) 76.2 fL 79.4-94.8 MEAN CORPUSCULAR HEMOGLOBIN (BEAKER) (test ruco=522) 23.8 pg 25.6-32.2 MEAN CORPUSCULAR HEMOGLOBIN CONC (BEAKER) (test kqfg=502) 31.3 GM/DL 32.2-35.5 RED CELL DISTRIBUTION WIDTH (BEAKER) (test oqfr=762) 18.8 % 11.7-14.4 PLATELET COUNT (BEAKER) (test asnv=841) 266 K/CU MM 150-450 MEAN PLATELET VOLUME (BEAKER) (test tcba=884) 10.5 fL 9.4-12.3 NUCLEATED RED BLOOD CELLS (BEAKER) (test khzv=858) 0 /100 WBC 0-0 NEUTROPHILS RELATIVE PERCENT (BEAKER) (test ncuc=860) 35 % LYMPHOCYTES RELATIVE PERCENT (BEAKER) (test eqyo=104) 46 % MONOCYTES RELATIVE PERCENT (BEAKER) (test tdtx=669) 14 % EOSINOPHILS RELATIVE PERCENT (BEAKER) (test icnu=710) 4 % BASOPHILS RELATIVE PERCENT (BEAKER) (test xfds=143) 1 % NEUTROPHILS ABSOLUTE COUNT (BEAKER) (test hnfc=799) 2.15 K/ L 1.56-6.13 LYMPHOCYTES ABSOLUTE COUNT (BEAKER) (test abef=845) 2.84 K/ L 1.18-3.74 MONOCYTES ABSOLUTE COUNT (BEAKER) (test fqlg=012) 0.89 K/ L 0.24-0.36 EOSINOPHILS ABSOLUTE COUNT (BEAKER) (test pups=704) 0.25 K/ L 0.04-0.36 BASOPHILS ABSOLUTE COUNT (BEAKER) (test vvgv=452) 0.06 K/ L 0.01-0.08 IMMATURE GRANULOCYTES-RELATIVE PERCENT (BEAKER) (test doxi=1844) 0 % 0-1 (MANUAL DIFFERENTIAL)2017-05-25 13:40:00* Test Item Value Reference Range Comments TOTAL COUNTED (BEAKER) (test bupm=4426) WBC MORPHOLOGY (BEAKER) (test tvcp=294) Normal PLT MORPHOLOGY (BEAKER) (test kcsp=894) Normal ANISOCYTOSIS (BEAKER) (test nnvu=821) 2+ moderate POLYCHROMATOPHILLIC RBCS(BEAKER) (test qwma=963) 2+ moderate SICKLE CELLS (BEAKER) (test sqkb=353) 1+ few TARGET CELLS (BEAKER) (test kjyc=974) 2+ moderate CBC W/PLT COUNT & AUTO [id number] 13:36:00* Test Item Value Reference Range Comments WHITE BLOOD CELL COUNT (BEAKER) (test mqej=188) 6.5 K/ L 3.5-10.5 RED BLOOD CELL COUNT (BEAKER) (test nuye=869) 3.01 M/ L 3.93-5.22 HEMOGLOBIN (BEAKER) (test jpey=254) 7.1 GM/DL 11.2-15.7 HEMATOCRIT (BEAKER) (test zooe=904) 22.9 % 34.1-44.9 MEAN CORPUSCULAR VOLUME (BEAKER) (test qkpw=020) 76.1 fL 79.4-94.8 MEAN CORPUSCULAR HEMOGLOBIN (BEAKER) (test ztxq=049) 23.6 pg 25.6-32.2 MEAN CORPUSCULAR HEMOGLOBIN CONC (BEAKER) (test fjrt=365) 31.0 GM/DL 32.2-35.5 RED CELL DISTRIBUTION WIDTH (BEAKER) (test pyoz=599) 19.0 % 11.7-14.4 PLATELET COUNT (BEAKER) (test snmy=606) 259 K/CU MM 150-450 MEAN PLATELET VOLUME (BEAKER) (test zijv=471) 10.5 fL 9.4-12.3 NUCLEATED RED BLOOD CELLS (BEAKER) (test csln=560) 0 /100 WBC 0-0 NEUTROPHILS RELATIVE PERCENT (BEAKER) (test fnqu=224) 34 % LYMPHOCYTES RELATIVE PERCENT (BEAKER) (test gpml=413) 46 % MONOCYTES RELATIVE PERCENT (BEAKER) (test qsrt=534) 16 % EOSINOPHILS RELATIVE PERCENT (BEAKER) (test nxej=933) 4 % BASOPHILS RELATIVE PERCENT (BEAKER) (test gpzf=835) 1 % NEUTROPHILS ABSOLUTE COUNT (BEAKER) (test xoxr=187) 2.20 K/ L 1.56-6.13 LYMPHOCYTES ABSOLUTE COUNT (BEAKER) (test wrxy=355) 2.95 K/ L 1.18-3.74 MONOCYTES ABSOLUTE COUNT (BEAKER) (test luhf=569) 1.01 K/ L 0.24-0.36 EOSINOPHILS ABSOLUTE COUNT (BEAKER) (test scrs=675) 0.25 K/ L 0.04-0.36 BASOPHILS ABSOLUTE COUNT (BEAKER) (test rihb=551) 0.07 K/ L 0.01-0.08 IMMATURE GRANULOCYTES-RELATIVE PERCENT (BEAKER) (test bvbb=7713) 0 % 0-1 (MANUAL DIFFERENTIAL)2017-05-25 13:36:00* Test Item Value Reference Range Comments TOTAL COUNTED (BEAKER) (test rdne=9629) WBC MORPHOLOGY (BEAKER) (test dulp=294) Normal PLT MORPHOLOGY (BEAKER) (test avdp=726) Normal OVALOCYTES (BEAKER) (test hypu=281) 1+ few IMMATURE RETICULOCYTE [id number] 06:42:00* Test Item Value Reference Range Comments IMMATURE RETIC FRACTION (BEAKER) (test mylo=8898) 21.900 % 3.000-15.900 RETICULOCYTE COUNT PCT (BEAKER) (test kpcx=305) 1.1 % 0.5-1.7 LACTATE DEHYDROGENASE (LDH)2017-05-25 06:19:00* Test Item Value Reference Range Comments LACTATE DEHYDROGENASE (BEAKER) (test mstt=287) 422 U/L 125-220 BASIC METABOLIC [id number] 06:19:00* Test Item Value Reference Range Comments SODIUM (BEAKER) (test uuxx=913) 141 meq/L 136-145 POTASSIUM (BEAKER) (test idph=223) 3.9 meq/L 3.5-5.1 CHLORIDE (BEAKER) (test xzjm=507) 108 meq/L 98-107 CO2 (BEAKER) (test xywb=910) 27 meq/L 22-29 BLOOD UREA NITROGEN (BEAKER) (test qrlj=246) 5 mg/dL 7-21 CREATININE (BEAKER) (test bmqa=156) 0.49 mg/dL 0.57-1.25 GLUCOSE RANDOM (BEAKER) (test cabt=568) 86 mg/dL 70-105 CALCIUM (BEAKER) (test wxex=252) 8.6 mg/dL 8.4-10.2 EGFR (BEAKER) (test clse=2366) 195 mL/min/1.73 sq m ESTIMATED GFR IS NOT ACCURATE CREATININE CLEARANCE IN PREDICTING GLOMERULAR FILTRATION RATE. ESTIMATED GFR IS NOT APPLICABLE FOR DIALYSIS PATIENTS. BASIC METABOLIC [id number] 06:50:00* Test Item Value Reference Range Comments SODIUM (BEAKER) (test fkma=007) 142 meq/L 136-145 POTASSIUM (BEAKER) (test pxtj=086) 3.9 meq/L 3.5-5.1 CHLORIDE (BEAKER) (test hbjd=149) 108 meq/L 98-107 CO2 (BEAKER) (test aezf=796) 28 meq/L 22-29 BLOOD UREA NITROGEN (BEAKER) (test wpiu=435) 5 mg/dL 7-21 CREATININE (BEAKER) (test ikmk=298) 0.54 mg/dL 0.57-1.25 GLUCOSE RANDOM (BEAKER) (test omtx=141) 82 mg/dL 70-105 CALCIUM (BEAKER) (test goop=038) 9.2 mg/dL 8.4-10.2 EGFR (BEAKER) (test axmv=8842) 174 mL/min/1.73 sq m ESTIMATED GFR IS NOT ACCURATE CREATININE CLEARANCE IN PREDICTING GLOMERULAR FILTRATION RATE. ESTIMATED GFR IS NOT APPLICABLE FOR DIALYSIS PATIENTS. CBC W/PLT COUNT & AUTO [id number] 06:12:00* Test Item Value Reference Range Comments WHITE BLOOD CELL COUNT (BEAKER) (test fhzq=280) 7.0 K/ L 3.5-10.5 RED BLOOD CELL COUNT (BEAKER) (test jlxy=694) 3.47 M/ L 3.93-5.22 HEMOGLOBIN (BEAKER) (test akwd=599) 8.2 GM/DL 11.2-15.7 HEMATOCRIT (BEAKER) (test vfxp=933) 26.4 % 34.1-44.9 MEAN CORPUSCULAR VOLUME (BEAKER) (test xudy=985) 76.1 fL 79.4-94.8 MEAN CORPUSCULAR HEMOGLOBIN (BEAKER) (test dozh=088) 23.6 pg 25.6-32.2 MEAN CORPUSCULAR HEMOGLOBIN CONC (BEAKER) (test yxus=886) 31.1 GM/DL 32.2-35.5 RED CELL DISTRIBUTION WIDTH (BEAKER) (test dkcd=055) 19.6 % 11.7-14.4 PLATELET COUNT (BEAKER) (test mltj=559) 298 K/CU MM 150-450 MEAN PLATELET VOLUME (BEAKER) (test qtkf=038) 10.3 fL 9.4-12.3 NUCLEATED RED BLOOD CELLS (BEAKER) (test xwzz=118) 0 /100 WBC 0-0 NEUTROPHILS RELATIVE PERCENT (BEAKER) (test hvuk=023) 50 % LYMPHOCYTES RELATIVE PERCENT (BEAKER) (test aial=114) 33 % MONOCYTES RELATIVE PERCENT (BEAKER) (test zqrl=294) 12 % EOSINOPHILS RELATIVE PERCENT (BEAKER) (test riod=529) 4 % BASOPHILS RELATIVE PERCENT (BEAKER) (test rlxh=784) 1 % NEUTROPHILS ABSOLUTE COUNT (BEAKER) (test nlyr=015) 3.49 K/ L 1.56-6.13 LYMPHOCYTES ABSOLUTE COUNT (BEAKER) (test mdkm=626) 2.33 K/ L 1.18-3.74 MONOCYTES ABSOLUTE COUNT (BEAKER) (test emcp=016) 0.82 K/ L 0.24-0.36 EOSINOPHILS ABSOLUTE COUNT (BEAKER) (test fuvq=829) 0.31 K/ L 0.04-0.36 BASOPHILS ABSOLUTE COUNT (BEAKER) (test svdk=586) 0.04 K/ L 0.01-0.08 IMMATURE GRANULOCYTES-RELATIVE PERCENT (BEAKER) (test oxjl=2724) 0 % 0-1 CBC W/PLT COUNT & AUTO [id number] 14:38:00* Test Item Value Reference Range Comments WHITE BLOOD CELL COUNT (BEAKER) (test glci=007) 9.9 K/ L 3.5-10.5 RED BLOOD CELL COUNT (BEAKER) (test lptu=617) 3.41 M/ L 3.93-5.22 HEMOGLOBIN (BEAKER) (test irsk=654) 8.4 GM/DL 11.2-15.7 HEMATOCRIT (BEAKER) (test tdev=026) 25.4 % 34.1-44.9 MEAN CORPUSCULAR VOLUME (BEAKER) (test lfzl=255) 74.5 fL 79.4-94.8 MEAN CORPUSCULAR HEMOGLOBIN (BEAKER) (test sdii=798) 24.6 pg 25.6-32.2 MEAN CORPUSCULAR HEMOGLOBIN CONC (BEAKER) (test yzvk=110) 33.1 GM/DL 32.2-35.5 RED CELL DISTRIBUTION WIDTH (BEAKER) (test hhdy=909) 19.1 % 11.7-14.4 PLATELET COUNT (BEAKER) (test dcme=734) 327 K/CU MM 150-450 MEAN PLATELET VOLUME (BEAKER) (test tdun=853) 10.3 fL 9.4-12.3 NUCLEATED RED BLOOD CELLS (BEAKER) (test eklx=141) 3 /100 WBC 0-0 NEUTROPHILS RELATIVE PERCENT (BEAKER) (test gnzj=927) 50 % LYMPHOCYTES RELATIVE PERCENT (BEAKER) (test aoda=937) 32 % MONOCYTES RELATIVE PERCENT (BEAKER) (test iimu=112) 14 % EOSINOPHILS RELATIVE PERCENT (BEAKER) (test apku=728) 2 % BASOPHILS RELATIVE PERCENT (BEAKER) (test iaix=901) 1 % NEUTROPHILS ABSOLUTE COUNT (BEAKER) (test ddjj=932) 5.01 K/ L 1.56-6.13 LYMPHOCYTES ABSOLUTE COUNT (BEAKER) (test xxnb=515) 3.20 K/ L 1.18-3.74 MONOCYTES ABSOLUTE COUNT (BEAKER) (test bfkq=611) 1.34 K/ L 0.24-0.36 EOSINOPHILS ABSOLUTE COUNT (BEAKER) (test kgqj=646) 0.23 K/ L 0.04-0.36 BASOPHILS ABSOLUTE COUNT (BEAKER) (test cgke=216) 0.09 K/ L 0.01-0.08 IMMATURE GRANULOCYTES-RELATIVE PERCENT (BEAKER) (test nddw=1089) 1 % 0-1 (MANUAL DIFFERENTIAL)2017-05-19 14:38:00* Test Item Value Reference Range Comments TOTAL COUNTED (BEAKER) (test hwcv=4095) WBC MORPHOLOGY (BEAKER) (test tplv=185) Normal PLT MORPHOLOGY (BEAKER) (test qjze=520) Normal FERNANDO-JOLLY BODIES (BEAKER) (test ocxp=461) 1+ few POIKILOCYTES (BEAKER) (test cppp=085) 1+ few POLYCHROMATOPHILLIC RBCS(BEAKER) (test tfem=351) 1+ few SICKLE CELLS (BEAKER) (test hunu=976) 2+ moderate TROPONIN [id number] 08:47:00* Test Item Value Reference Range Comments TROPONIN I (BEAKER) (test komy=989) < ng/mL 0.00-0.03 Effective 09/09/2014: Reference Range [...] acidosis, acute neurological disease, and pers istent tachyarrhythmia.[id number] 07:08:00* Test Item Value Reference Range Comments PHOSPHORUS (BEAKER) (test dkgn=212) 5.0 mg/dL 2.3-4.7 [id number] 07:08:00* Test Item Value Reference Range Comments MAGNESIUM (BEAKER) (test aylb=082) 1.9 mg/dL 1.6-2.6 BASIC METABOLIC [id number] 07:08:00* Test Item Value Reference Range Comments SODIUM (BEAKER) (test vqfs=627) 142 meq/L 136-145 POTASSIUM (BEAKER) (test naib=103) 3.8 meq/L 3.5-5.1 CHLORIDE (BEAKER) (test jjqv=373) 111 meq/L 98-107 CO2 (BEAKER) (test koqq=695) 25 meq/L 22-29 BLOOD UREA NITROGEN (BEAKER) (test bjqj=697) 2 mg/dL 7-21 CREATININE (BEAKER) (test ztar=417) 0.52 mg/dL 0.57-1.25 GLUCOSE RANDOM (BEAKER) (test kzua=749) 86 mg/dL 70-105 CALCIUM (BEAKER) (test tcni=016) 9.1 mg/dL 8.4-10.2 EGFR (BEAKER) (test wabj=4333) 182 mL/min/1.73 sq m ESTIMATED GFR IS NOT ACCURATE CREATININE CLEARANCE IN PREDICTING GLOMERULAR FILTRATION RATE. ESTIMATED GFR IS NOT APPLICABLE FOR DIALYSIS PATIENTS. HEPATIC FUNCTION [id number] 07:08:00* Test Item Value Reference Range Comments TOTAL PROTEIN (BEAKER) (test qbje=235) 6.2 gm/dL 6.0-8.3 ALBUMIN (BEAKER) (test jcep=3621) 3.9 g/dL 3.5-5.0 BILIRUBIN TOTAL (BEAKER) (test euim=940) 1.5 mg/dL 0.2-1.2 BILIRUBIN DIRECT (BEAKER) (test vnuj=997) 0.5 mg/dL 0.1-0.5 ALKALINE PHOSPHATASE (BEAKER) (test uist=295) 59 U/L 40-150 AST (SGOT) (BEAKER) (test svce=773) 21 U/L 5-34 ALT (SGPT) (BEAKER) (test ekep=541) 14 U/L 6-55 CBC W/PLT COUNT & AUTO [id number] 16:09:00* Test Item Value Reference Range Comments WHITE BLOOD CELL COUNT (BEAKER) (test owpp=387) 11.5 K/ L 3.5-10.5 RED BLOOD CELL COUNT (BEAKER) (test uzxi=731) 2.58 M/ L 3.93-5.22 HEMOGLOBIN (BEAKER) (test klop=166) 5.7 GM/DL 11.2-15.7 HEMATOCRIT (BEAKER) (test zrfo=220) 17.9 % 34.1-44.9 MEAN CORPUSCULAR VOLUME (BEAKER) (test ysel=427) 69.4 fL 79.4-94.8 MEAN CORPUSCULAR HEMOGLOBIN (BEAKER) (test jnkp=345) 22.1 pg 25.6-32.2 MEAN CORPUSCULAR HEMOGLOBIN CONC (BEAKER) (test vxlo=838) 31.8 GM/DL 32.2-35.5 RED CELL DISTRIBUTION WIDTH (BEAKER) (test izli=952) 15.8 % 11.7-14.4 PLATELET COUNT (BEAKER) (test jjhf=361) 322 K/CU MM 150-450 Discordant result compared to previous result; clinical correlation required. MEAN PLATELET VOLUME (BEAKER) (test ywpn=354) 10.1 fL 9.4-12.3 NUCLEATED RED BLOOD CELLS (BEAKER) (test blnu=241) 2 /100 WBC 0-0 NEUTROPHILS RELATIVE PERCENT (BEAKER) (test leym=481) 61 % LYMPHOCYTES RELATIVE PERCENT (BEAKER) (test nzfp=171) 25 % MONOCYTES RELATIVE PERCENT (BEAKER) (test ldrh=691) 11 % EOSINOPHILS RELATIVE PERCENT (BEAKER) (test rtpv=369) 2 % BASOPHILS RELATIVE PERCENT (BEAKER) (test xkae=000) 1 % NEUTROPHILS ABSOLUTE COUNT (BEAKER) (test zjwb=949) 7.00 K/ L 1.56-6.13 LYMPHOCYTES ABSOLUTE COUNT (BEAKER) (test jhvy=377) 2.88 K/ L 1.18-3.74 MONOCYTES ABSOLUTE COUNT (BEAKER) (test rmdk=572) 1.24 K/ L 0.24-0.36 EOSINOPHILS ABSOLUTE COUNT (BEAKER) (test muta=522) 0.27 K/ L 0.04-0.36 BASOPHILS ABSOLUTE COUNT (BEAKER) (test dpli=931) 0.06 K/ L 0.01-0.08 IMMATURE GRANULOCYTES-RELATIVE PERCENT (BEAKER) (test hlid=1433) 1 % 0-1 (MANUAL DIFFERENTIAL)2017-05-18 16:09:00* Test Item Value Reference Range Comments TOTAL COUNTED (BEAKER) (test hepj=9982) WBC MORPHOLOGY (BEAKER) (test uotp=670) Normal PLT MORPHOLOGY (BEAKER) (test pdpz=461) Normal POIKILOCYTES (BEAKER) (test qnnp=472) 2+ moderate POLYCHROMATOPHILLIC RBCS(BEAKER) (test epxx=586) 1+ few SICKLE CELLS (BEAKER) (test cfdj=407) 2+ moderate B-TYPE NATRIURETIC FACTOR (BNP)2017-05-18 10:21:00* Test Item Value Reference Range Comments B-TYPE NATRIURETIC PEPTIDE (BEAKER) (test hayp=351) 16 pg/mL 0-100 TROPONIN [id number] 10:21:00* Test Item Value Reference Range Comments TROPONIN I (BEAKER) (test vqps=401) < ng/mL 0.00-0.03 Effective 09/09/2014: Reference Range [...] acute neurological disease, and pers istent tachyarrhythmia.RETICULOCYTE [id number] 07:48:00* Test Item Value Reference Range Comments RETICULOCYTE COUNT PCT (BEAKER) (test izpw=163) 10.3 % 0.5-1.7 LACTATE DEHYDROGENASE (LDH)2017-05-18 06:41:00* Test Item Value Reference Range Comments LACTATE DEHYDROGENASE (BEAKER) (test eonb=323) 359 U/L 125-220 BASIC METABOLIC [id number] 06:41:00* Test Item Value Reference Range Comments SODIUM (BEAKER) (test pnpl=764) 142 meq/L 136-145 POTASSIUM (BEAKER) (test qipl=435) 3.7 meq/L 3.5-5.1 CHLORIDE (BEAKER) (test wgev=877) 111 meq/L 98-107 CO2 (BEAKER) (test ofvu=540) 23 meq/L 22-29 BLOOD UREA NITROGEN (BEAKER) (test hktu=646) 4 mg/dL 7-21 CREATININE (BEAKER) (test bave=838) 0.52 mg/dL 0.57-1.25 GLUCOSE RANDOM (BEAKER) (test bglo=551) 90 mg/dL 70-105 CALCIUM (BEAKER) (test wnya=030) 8.4 mg/dL 8.4-10.2 EGFR (BEAKER) (test glyp=0895) 182 mL/min/1.73 sq m ESTIMATED GFR IS NOT ACCURATE CREATININE CLEARANCE IN PREDICTING GLOMERULAR FILTRATION RATE. ESTIMATED GFR IS NOT APPLICABLE FOR DIALYSIS PATIENTS. URINALYSIS W/ [id number] 15:40:00* Test Item Value Reference Range Comments COLOR (BEAKER) (test qjfw=882) Yellow CLARITY (BEAKER) (test bbhc=469) Clear SPECIFIC GRAVITY UA (BEAKER) (test vvsy=506) 1.010 1.001-1.035 PH UA (BEAKER) (test oprs=394) 7.0 5.0-8.0 PROTEIN UA (BEAKER) (test ohjt=902) Negative Negative GLUCOSE UA (BEAKER) (test mzwe=189) Negative Negative KETONES UA (BEAKER) (test ougz=630) Negative Negative BILIRUBIN UA (BEAKER) (test dmsn=632) Negative Negative BLOOD UA (BEAKER) (test eugc=379) Negative Negative NITRITE UA (BEAKER) (test ruqv=985) Negative Negative LEUKOCYTE ESTERASE UA (BEAKER) (test lmwj=718) Negative Negative UROBILINOGEN UA (BEAKER) (test njxi=891) 0.2 mg/dL 0.2-1.0 RBC UA (BEAKER) (test vqpi=742) < /HPF WBC UA (BEAKER) (test lthj=907) < /HPF BACTERIA (BEAKER) (test nrzq=135) Rare MUCUS (BEAKER) (test nvuh=2884) Rare SQUAMOUS EPITHELIAL (BEAKER) (test jrjt=803) 1 /HPF SOURCE(BEAKER) (test hunc=8520) Urine, Voided SCREEN, [id number] 15:37:00* Test Item Value Reference Range Comments TEST URINE (BEAKER) (test wuda=155) Negative CBC W/PLT COUNT & AUTO [id number] 14:35:00* Test Item Value Reference Range Comments WHITE BLOOD CELL COUNT (BEAKER) (test squm=319) 12.3 K/ L 3.5-10.5 RED BLOOD CELL COUNT (BEAKER) (test vjuq=121) 3.05 M/ L 3.93-5.22 HEMOGLOBIN (BEAKER) (test ugix=008) 6.8 GM/DL 11.2-15.7 HEMATOCRIT (BEAKER) (test bnyi=814) 21.2 % 34.1-44.9 MEAN CORPUSCULAR VOLUME (BEAKER) (test zvea=936) 69.5 fL 79.4-94.8 MEAN CORPUSCULAR HEMOGLOBIN (BEAKER) (test dhrv=623) 22.3 pg 25.6-32.2 MEAN CORPUSCULAR HEMOGLOBIN CONC (BEAKER) (test gtvv=922) 32.1 GM/DL 32.2-35.5 RED CELL DISTRIBUTION WIDTH (BEAKER) (test cver=646) 16.4 % 11.7-14.4 PLATELET COUNT (BEAKER) (test gcol=111) 386 K/CU MM 150-450 MEAN PLATELET VOLUME (BEAKER) (test wgbd=523) 10.1 fL 9.4-12.3 NUCLEATED RED BLOOD CELLS (BEAKER) (test ocvs=987) 2 /100 WBC 0-0 NEUTROPHILS RELATIVE PERCENT (BEAKER) (test pplw=993) 72 % LYMPHOCYTES RELATIVE PERCENT (BEAKER) (test qbgd=244) 16 % MONOCYTES RELATIVE PERCENT (BEAKER) (test oqtu=928) 8 % EOSINOPHILS RELATIVE PERCENT (BEAKER) (test czze=729) 1 % BASOPHILS RELATIVE PERCENT (BEAKER) (test uwou=924) 1 % NEUTROPHILS ABSOLUTE COUNT (BEAKER) (test gwbo=849) 8.89 K/ L 1.56-6.13 LYMPHOCYTES ABSOLUTE COUNT (BEAKER) (test kbmf=364) 1.97 K/ L 1.18-3.74 MONOCYTES ABSOLUTE COUNT (BEAKER) (test vxnp=283) 1.02 K/ L 0.24-0.36 EOSINOPHILS ABSOLUTE COUNT (BEAKER) (test rlpk=248) 0.17 K/ L 0.04-0.36 BASOPHILS ABSOLUTE COUNT (BEAKER) (test rhgl=380) 0.07 K/ L 0.01-0.08 IMMATURE GRANULOCYTES-RELATIVE PERCENT (BEAKER) (test rbmc=4996) 2 % 0-1 (MANUAL DIFFERENTIAL)2017-05-17 14:35:00* Test Item Value Reference Range Comments TOTAL COUNTED (BEAKER) (test uxvz=5076) WBC MORPHOLOGY (BEAKER) (test wytq=757) Normal PLT MORPHOLOGY (BEAKER) (test uyhq=715) Normal FERNANDO-JOLLY BODIES (BEAKER) (test mskc=976) Present POLYCHROMATOPHILLIC RBCS(BEAKER) (test btzl=343) 1+ few SICKLE CELLS (BEAKER) (test livt=014) 2+ moderate TARGET CELLS (BEAKER) (test mcbs=883) 2+ moderate BASIC METABOLIC [id number] 13:59:00* Test Item Value Reference Range Comments SODIUM (BEAKER) (test qoiz=392) 139 meq/L 136-145 POTASSIUM (BEAKER) (test wgtk=241) 4.2 meq/L 3.5-5.1 CHLORIDE (BEAKER) (test kxrs=515) 105 meq/L 98-107 CO2 (BEAKER) (test ltfn=501) 26 meq/L 22-29 BLOOD UREA NITROGEN (BEAKER) (test ebep=205) 4 mg/dL 7-21 CREATININE (BEAKER) (test eypj=611) 0.55 mg/dL 0.57-1.25 GLUCOSE RANDOM (BEAKER) (test kewq=671) 85 mg/dL 70-105 CALCIUM (BEAKER) (test lwpj=257) 9.4 mg/dL 8.4-10.2 EGFR (BEAKER) (test zvky=3771) 171 mL/min/1.73 sq m ESTIMATED GFR IS NOT ACCURATE CREATININE CLEARANCE IN PREDICTING GLOMERULAR FILTRATION RATE. ESTIMATED GFR IS NOT APPLICABLE FOR DIALYSIS PATIENTS. RETICULOCYTE [id number] 13:44:00* Test Item Value Reference Range Comments RETICULOCYTE COUNT PCT (BEAKER) (test bpca=738) 10.4 % 0.5-1.7
--- OUTSIDE RECORDS SUMMARY | 2019-12-31 13:13 | XMS REPORT | Summary of Care ---
Author Author Moises Uribe, Ya Organization Unknown Address Unknown Phone Unavailable Care Team Providers Care Electric Mule Driver Name Role Phone BILL Bauer, EDWARD Unavailable Unavailable BARB Bauer, NATI Unavailable Unavailable ADAIR Bauer, DAGOBERTO Unavailable Unavailable ADAIR MEEKS MA, DAGOBERTO M Unavailable Unavailable DEBORAH REFINERY PROCESS ENGINEER DAMARI HOLDER Unavailable Unavailable Barb MEEKS, Nati Unavailable Unavailable MARVIN MEEKS MA, KELSEY Unavailable Unavailable BILL MEEKS MA, EDWARD Unavailable Unavailable Jose MEEKS, Jeannie Unavailable [...] PRN nausea * Quantity: 30 Refills: 3 APOSTOLIDKEEGAN Higgins.Avtar., EFFROSYNI * Start : 06-Mar-2017 Active Polyethylene Glycol 3350 Oral Packet MIX 1 PACKET IN 8 OUNCES OF LIQUID AND DRINK ONCE DAILY. * Quantity: 30 Refills: 6 APOSTOLIDKEEGAN Goff., EFFROSYNI * Start : 27-Nov-2017 Active ALPRAZolam 1 MG Oral Tablet Take 1 tab daily as needed for anxiety * Quantity: 30 Refills: 0 KAYLINSTJODY OKEEFE M.D.ROSYNMorena * Start : 29-Oct-2019 Active traZODone HCl - 50 MG Oral Tablet TAKE 1 TABLET AT BEDTIME. * Quantity: 30 Refills: 1 KAYLINSTSARY Bauer, EFFROSYNI * Start : 16-Jul-2018 Active Deferasirox 360 MG Oral Tablet TAKE 2 TABLET DAILY * Quantity: 60 Refills: 5 KAYLINSTSARY Bauer EFFROSYNI * Start : 25-Jul-2018 Active Morphine Sulfate 30 MG Oral Tablet take 30 mg IR every 4-6 hours as needed for pain * Quantity: 90 Refills: 0 DAGOBERTO BORRERO M.D. * Start : 19-Oct-2018 Active HYDROcodone-Acetaminophen 10-325 MG Oral Tablet TAKE 1 TABLET EVERY 4 TO 6 HOURS NEEDED FOR PAIN. * Quantity: 90 Refills: 0 JODY MOBLEY M.D.ROSYNMorena * Start : 24-Dec-2018 Active HYDROmorphone HCl - 2 MG Oral Tablet Take 1 tb every 4-6 hours as needed for breakthrough pain (ie > 7/10) * Quantity: 90 Refills: 0 NATI MOBLEY M.D. * Start : 29-Apr-2019 Active levETIRAcetam 750 [...] Varivax 1350 PFU/0.5ML Subcutaneous Injectable Lot #: [id number] on: 02-Jun-2009 Meningo (Menactra) on: 02-Jun-2009 Tdap [...] smoker Vital Signs Date Test Result Details :24 BP Systolic 103 mm[Hg] Status: Comments: Location: LUE; Position: Sitting BP Diastolic 65 mm[Hg] Status: Comments: Location: LUE; Position: Sitting Height 64 in Status: Weight 1260 lb Status: Body Mass Index Calculated 216.28 kg/m2 Status: Body Surface Area Calculated 4.28 m2 Status: Temperature 98.2 f Status: Comments: Method: Oral Heart Rate 81 /min Status: Comments: Location: L Brachial Artery; O2 SAT 100 % Status: Comments: Source: RA Physical Findings 0 Status: Comments: Alcohol Screen - How many times in the past yr have you had 5 (for M) or 4 (for F) or 4 (for all > 65yrs) or more drinks in a day? :43 BP Systolic 111 mm[Hg] Status: BP Diastolic 81 mm[Hg] Status: Physical Findings 11 Status: Comments: PHQ-9 Adult Depression Screening Height 64 in Status: Weight 124 lb Status: Body Mass Index Calculated 21.28 kg/m2 Status: Body Surface Area Calculated 1.6 m2 Status: Heart Rate 92 /min Status: :35 BP Systolic 112 mm[Hg] Status: Comments: Location: RUE; Position: Sitting BP Diastolic 67 mm[Hg] Status: Comments: Location: RUE; Position: Sitting Physical Findings 11 Status: Comments: PHQ-9 Adult Depression Screening Height 64 in Status: Weight 132 lb Status: Body Mass Index Calculated 22.66 kg/m2 Status: Body Surface Area Calculated 1.64 m2 Status: Temperature 98.1 f Status: Comments: Method: Oral Heart Rate 98 /min Status: O2 SAT 98 % Status: Comments: Source: RA Respiration Rate 18 /min Status: Comments: Quality: Normal Results Date Description Value Details 00 [[facility]] CMP W/EGFR Glucose 94 mg/dL Range: 65-99 BUN 4 mg/dL (Below low threshold) Range: 6-20 Creatinine 0.38 mg/dL (Below low threshold) Range: 0.57-1.00 eGFR If NonAfricn Am 150 mL/min/1.7 Range: >59 eGFR If Africn Am 173 mL/min/1.7 Range: >59 BUN/Creatinine Ratio 11 Range: 9-23 Sodium, Serum 141 mmol/L Range: 134-144 Potassium 3.9 mmol/L Range: 3.5-5.2 Chloride 100 mmol/L Range: 96-106 Carbon Dioxide, Total 22 mmol/L Range: 20-29 Calcium, Serum 9.8 mg/dL Range: 8.7-10.2 Protein, Total 7.0 g/dL Range: 6.0-8.5 Albumin 4.9 g/dL Range: 3.5-5.5 Globalulin, Total 2.1 g/dL Range: 1.5-4.5 A/G Ratio 2.3 (Above high threshold) Range: 1.2-2.2 Bilirubin, Total 0.9 mg/dL Range: 0.0-1.2 Alkaline Phosphatase 66 {IU/L} Range: 39-117 AST (SGOT) 22 {IU/L} Range: 0-40 ALT (SGPT) 9 {IU/L} Range: 0-32 :00 [[facility]] LD LDH 291 {IU/L} (Above high threshold) Range: 119-226 :00 [[facility]] CBC (INCLUDES DIFF/PLT) WBC 11.5 {x10E3/uL} (Above high threshold) Range: 3.4-10.8 RBC 3.48 {x10E6/uL} (Below low threshold) Range: 3.77-5.28 Comments: Rare nucleated RBC seen.Elliptocytes present.Few schistocytes. Hemoglobin 7.6 g/dL (Below low threshold) Range: 11.1-15.9 Hematocrit 26.8 % (Below low threshold) Range: 34.0-46.6 MCV 77 fL (Below low threshold) Range: 79-97 MCH 21.8 pg (Below low threshold) Range: 26.6-33.0 MCHC 28.4 g/dL (Below low threshold) Range: 31.5-35.7 RDW 17.1 % (Above high threshold) Range: 12.3-15.4 Comments: Effective October 28, 2019, the RDW pediatric reference interval will be removed and the adult reference interval will be changing to: Female 11.7 - 15.4 Male 11.6 - 15.4 Platelets 322 {x10E3/uL} Range: 150-450 Neutrophils 80 % Range: Not Estab. Lymphs 11 % Range: Not Estab. Monocytes 7 % Range: Not Estab. Eos 1 % Range: Not Estab. Basos 1 % Range: Not Estab. Immature Cells Neutrophils (Absolute) 9.2 {x10E3/uL} (Above high threshold) Range: 1.4-7.0 Lymphs (Absolute) 1.3 {x10E3/uL} Range: 0.7-3.1 Monocytes(Absolute) 0.8 {x10E3/uL} Range: 0.1-0.9 Eos (Absolute) 0.1 {x10E3/uL} Range: 0.0-0.4 Baso (Absolute) 0.1 {x10E3/uL} Range: 0.0-0.2 Immature Granulocytes 0 % Range: Not Estab. Immature Grans (Abs) 0.0 {x10E3/uL} Range: 0.0-0.1 NRBC Hematology Comments: Note: Comments: Verified by microscopic examination. [id number] [[facility]] RETICULOCYTE COUNT Reticulocyte Count 5.9 % (Above high threshold) Range: 0.6-2.6 Plan of Care Name Dates Details Planned Observations Planned Goals not documented Planned Encounters Appointment; JEANNIE MONTES DE OCA M.D. On: 19-Dec-2019 13:00 Appointment; NATI MOBLEY M.D. On: 30-Dec-2019 15:20 Appointment; [facility] On: 24-Jan-2020 8:00 Appointment; EDWARD KHAN M.D. On: 24-Jan-2020 9:30 Planned Medications ALPRAZolam 1 MG Oral Tablet Take 1 tab daily as needed for anxiety Ordered: 29-Oct-2019 Active Interventions Provided Medication Changes* Folic Acid 1 MG Oral Tablet - Renew * HYDROcodone-Acetaminophen 10-325 MG Oral Tablet - Renew * HYDROmorphone HCl - 2 MG Oral Tablet - Renew * Ondansetron HCl - 4 MG Oral Tablet - Renew * Polyethylene Glycol 3350 Oral Packet - Renew * traZODone HCl - 50 MG Oral Tablet - Renew Instructions Name Dates Details Instructions not documented Encounters Appointment; DAGOBERTO BORRERO M.D. Encounter Diagnosis: Problem not documented On: 27-Nov-2017 10:40 Appointment; NATI MOBLEY M.D. Encounter Diagnosis: Problem not documented On: 27-Nov-2017 13:40 Appointment; YUSUF DIAZ Encounter Diagnosis: Problem not documented On: 27-Nov-2017 14:00 Appointment; PROVIDER, DENTAL Encounter Diagnosis: Problem not documented On: 27-Nov-2017 16:40 Appointment; NATI MOBLEY M.D. Encounter Diagnosis: Problem [...]
--- OUTSIDE RECORDS SUMMARY | 2019-12-31 13:14 | XMS REPORT | Summary of Care ---
Author Author ADAIR Bauer, DAGOBERTO Organization Unknown Address Unknown Phone Unavailable Care Team Providers Care Underground Utility Locator Name Role Phone BILL Bauer, EDWARD Unavailable Unavailable BARB Bauer, NATI Unavailable Unavailable ADAIR Bauer, DAGOBERTO Unavailable Unavailable ADAIR MEKES NE, DAGOBERTO M Unavailable Unavailable [facility] DAMARI HOLDER Unavailable Unavailable Barb MEEKS, Nati Unavailable Unavailable MARVIN MEEKS NE, KELSEY Unavailable Unavailable BILL MEEKS NE, EDWARD Unavailable Unavailable Jose MEEKS, Jeannie Unavailable [...] Status: Active Acne (706.1, L70.9) Status: Active Constipation due to opioid therapy (564.09, K59.03) Status: Active Hospital discharge follow-up (V67.59, Z09) Status: Active Sickle cell disease, 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 Quantity: 60 APOSTOLIDOU M.D., EFFROSYNI Active Ondansetron HCl - 4 MG Oral Tablet TAKE 1 TABLET EVERY 8 HOURS PRN nausea * Quantity: 30 Refills: 3 APOSTOLIDOU M.D., EFFROSYNI * Start : 06-Mar-2017 Active Polyethylene Glycol 3350 Oral Packet MIX 1 PACKET IN 8 OUNCES OF LIQUID AND DRINK ONCE DAILY. * Quantity: 30 Refills: 6 BARB Bauer EFFROSYNI * Start : 27-Nov-2017 Active ALPRAZolam 1 MG Oral Tablet Take 1 tab daily as needed for anxiety * Quantity: 30 Refills: 0 BARB Bauer, EFFROSYNI * Start : 29-Oct-2019 Active traZODone HCl - 50 MG Oral Tablet TAKE 1 TABLET AT BEDTIME. * Quantity: 30 Refills: 1 JODY DAY M.D.ROSYNI * Start : 16-Jul-2018 Active Deferasirox 360 MG Oral Tablet TAKE 2 TABLET DAILY * Quantity: 60 Refills: 5 BARB Bauer, EFFROSYNI * Start : 25-Jul-2018 Active Morphine Sulfate 30 MG Oral Tablet take 30 mg IR every 4-6 hours as needed for pain * Quantity: 90 Refills: 0 DAGOBERTO BORRERO M.D. * Start : 19-Oct-2018 Active HYDROcodone-Acetaminophen 10-325 MG Oral Tablet TAKE 1 TABLET EVERY 4 TO 6 HOURS NEEDED FOR PAIN. * Quantity: 90 Refills: 0 JODY DAY M.D.ROSYNMorena * Start : 24-Dec-2018 Active HYDROmorphone HCl - 2 MG Oral Tablet Take 1 tb every 4-6 hours as needed for breakthrough pain (ie > 7/10) * Quantity: 90 Refills: 0 JODY DAY M.D.ROSYNI * Start : 29-Apr-2019 Active levETIRAcetam 750 [...] Z01.419) Status: Resolved Procedures Procedure Dates Details [O] Streptococcus Test Rapid (In Office) Date: 28-Nov-2019 [O] Flu Test (in Office ) Date: 28-Nov-2019 Immunization Name Dates Details Fluzone Quadrivalent 0.5 [...] Varivax 1350 PFU/0.5ML Subcutaneous Injectable Lot #: [id number] on: 02-Jun-2009 Meningo (Menactra) on: 02-Jun-2009 Tdap [...] smoker Vital Signs Date Test Result Details 28-Nov-20199:28 BP Systolic 105 mm[Hg] Status: Comments: Location: RUE; Position: Sitting BP Diastolic 70 mm[Hg] Status: Comments: Location: RUE; Position: Sitting Height 64 in Status: Weight 138.125 lb Status: Body Mass Index Calculated 23.71 kg/m2 Status: Body Surface Area Calculated 1.67 m2 Status: Temperature 98.2 f Status: Comments: Method: Oral Heart Rate 91 /min Status: Comments: Quality: Normal Respiration Rate 18 /min Status: Comments: Quality: Normal O2 SAT 98 % Status: Physical Findings 0 Status: Comments: Alcohol Screen - How many times in the past yr have you had 5 (for M) or 4 (for F) or 4 (for all > 65yrs) or more drinks in a day? [id number] Physical Findings 11 Status: Comments: PHQ-9 Adult Depression Screening Results Date Description Value Details Results not documented Plan of Care Name Dates Details Planned Observations Planned Goals not documented Planned Encounters Appointment; JEANNIE MONTES DE OCA M.D. On: 19-Dec-2019 13:00 Appointment; NATI DAY M.D. On: 30-Dec-2019 15:20 Appointment; BARBARA, ADULTCLINIC On: 24-Jan-2020 8:00 Appointment; EDWARD KHAN M.D. On: 24-Jan-2020 9:30 Interventions Provided Labs/Procedures/Imaging* [O] Flu Test (in Office ); To Be Done: 28 Nov 2019 * [O] Streptococcus Test Rapid (In Office); To Be Done: 28 Nov 2019 Discussion/Summary* Impression: Ms Graves is a 23 year old female here for: * 1) Sickle cell disease, Hgb S beta - zero thalassemia/ sickle cell pain Crisis: * - She was admitted to the infusion center, lab work was done. * - She was started on 0.9 % NS. * - She declined having Toradol. * - She is still refusing to start on HU. * - Folic acid 1 mg daily. * - Advised to drink plenty of water, maintain good hydration and avoid the extreme of temperatures. * - She has an appointment with Dr Day on 07/01/19. * 2) Chronic bone pain;. * - [place] 10/325 mg. and MS IR 30 mg. No need for RF. * - She reported that she doesn't want to take Dilaudid PO because this is the Medicine she gets in the ER for crisis and doesn't want to build tolerance to it. * - D/C Ibuprofen 800 mg. * 3) Proteinuria: * - Protein / creatinine ratio today is 0.45, the previous one in was 0.38. * - Refer patient to nephrology. * - D/C Ibuprofen. * 4) Seizures: * - On Keppra, has RF. * - She wants to go back to [facility], will schedule an apt with them. * 5) Anxiety / Depression: * - She denied any suicidal thoughts or ideas. * - Will schedule an apt with psychiatry. * - RF Alprazolam. * 6) Insomnia: * - RF Trazodone. * 7) Acne: * - She's on Doxycycline, advised to take 1 capsule PO per day. * - Avoid exposure to sunlight. Wear SPF moisturizer, avoid being in the sun especially between 10:00 am- 3:00 pm. Wear long sleeve shirts, long pants and a hat if needs to go out. * 8) Bacterial vaginosis: * - The patient stated that she didn't finish the course last time and requested RF because she has vaginal D/C. * - Will fill Metronidazole 500 mg BID for 1 week. * 9) PAP smear was negative for intraepithelial lesion but + HPV ( high risk): * - I talked to the patient and her mother and they decided to schedule an apt with Dr Rosales in [place] who used to be her OCCUPATIONAL PSYCHOLOGIST before she moved. * Evaluation: * After receiving IVF 0.9% NS she said she feels better, pain is about 3/10. * She was discharged home with her mother in a stable condition. * F/U in 2 weeks. Instructions Name Dates Details Instructions not documented Encounters Appointment; NATI DAY M.D. Encounter Diagnosis: Problem not documented On: 18-Dec-2017 15:20 Appointment; DAMARI CABRERA NP Encounter Diagnosis: Problem not documented On: 26-Dec-2017 10:00 Appointment; NATI DAY M.D. Encounter Diagnosis: Problem not documented On: [...] not documented On: 09-Apr-2018 16:00 Appointment; NATI DAY M.D. Encounter Diagnosis: Problem not documented On: [...] not documented On: 16-Jul-2018 10:00 Appointment; NATI DAY M.D. Encounter Diagnosis: Problem not documented On: 16-Jul-2018 14:40 Appointment; DAMARI CABRERA NP Encounter Diagnosis: Problem not documented On: 25-Jul-2018 13:00 Appointment; NATI DAY M.D. Encounter Diagnosis: Problem not documented On: 13-Aug-2018 16:00 Appointment; NATI DAY M.D. Encounter Diagnosis: Problem not documented On: 17-Sep-2018 15:40 Appointment; NATI DAY M.D. Encounter Diagnosis: Problem not documented On: 08-Oct-2018 13:40 Appointment; NATI DAY M.D. Encounter Diagnosis: Problem not documented On: 08-Oct-2018 13:40 Appointment; DAGOBERTO BORRERO M.D. Encounter Diagnosis: Problem not documented On: 24-Dec-2018 11:30 Appointment; NATI DAY M.D. Encounter Diagnosis: Problem not documented On: [...] not documented On: 04-Mar-2019 14:30 Appointment; NATI DAY M.D. Encounter Diagnosis: Problem not documented On: 04-Mar-2019 15:20 Appointment; XIMENA LION M.D. Encounter Diagnosis: Problem not documented On: 06-Mar-2019 15:00 Appointment; DAGOBERTO BORRERO M.D. Encounter Diagnosis: Problem not documented On: 20-Mar-2019 13:00 Appointment; DAMARI CABRERA NP Encounter Diagnosis: Problem not documented On: 29-Apr-2019 13:00 Appointment; NATI DAY M.D. Encounter Diagnosis: Problem not documented On: [...] not documented On: 19-Aug-2019 13:30 Appointment; NATI DAY M.D. Encounter Diagnosis: Problem not documented On: 19-Aug-2019 14:40 Appointment; DAGOBERTO BORRERO M.D. Encounter Diagnosis: Problem not documented On: 04-Oct-2019 13:15 Appointment; EDWARD KHAN M.D. Encounter Diagnosis: Problem not documented On: 22-Oct-2019 15:00 Appointment; NATI DAY M.D. Encounter Diagnosis: Problem not documented On: 28-Oct-2019 15:20 Appointment; DAGOBERTO BORRERO M.D. Encounter Diagnosis: Problem not documented On: 28-Nov-2019 9:00
--- OUTSIDE RECORDS SUMMARY | 2019-12-31 13:14 | XMS REPORT | Summary of Care ---
Author Author ADAIR Bauer, DAGOBERTO Organization Unknown Address Unknown Phone Unavailable Care Team Providers Care Bridge Repairer Name Role Phone BILL Bauer, EDWARD Unavailable Unavailable BARB Bauer, NATI Unavailable Unavailable ADAIR Bauer, DAGOBERTO Unavailable Unavailable ADAIR MEEKS MD, DAGOBERTO M Unavailable Unavailable [facility] DAMARI HOLDER Unavailable Unavailable Barb MEEKS, Nati Unavailable Unavailable AMRVIN MEEKS MD, KELSEY Unavailable Unavailable BILL MEEKS MD, EDWARD Unavailable Unavailable Jose MEEKS, Jeannie Unavailable [...] Active Iron overload (275.09, E83.19) Status: Active Acne (706.1, L70.9) Status: Active [...] Active Common cold (460, J00) Status: Active Sickle cell anemia with pain (282.62, D57.00) Status: Active Diarrhea, unspecified type (787.91, R19.7) Status: Active Medications Name Dates Details Folic [...] ONCE DAILY. * Quantity: 30 Refills: 6 NATI DAY M.D. * Start : 27-Nov-2017 Active ALPRAZolam 1 MG Oral Tablet Take 1 tab daily as needed for anxiety * Quantity: 30 Refills: 0 JODY DAY M.D.ROSYNMorena * Start : 29-Oct-2019 Active traZODone HCl - 50 MG Oral Tablet TAKE 1 TABLET AT BEDTIME. * Quantity: 30 Refills: 1 NATI DAY M.D. * Start : 16-Jul-2018 Active Deferasirox 360 MG Oral Tablet TAKE 2 TABLET DAILY * Quantity: 60 Refills: 5 DAGOBERTO BORRERO M.D. * Start : 25-Jul-2018 Active Morphine Sulfate 30 MG Oral Tablet take 30 mg IR every 4-6 hours as needed for pain * Quantity: 90 Refills: 0 DAGOBERTO BORRERO M.D. * Start : 19-Oct-2018 Active HYDROcodone-Acetaminophen 10-325 MG Oral Tablet TAKE 1 TABLET EVERY 4 TO 6 HOURS NEEDED FOR PAIN. * Quantity: 90 Refills: 0 NATI DAY M.D. * Start : 24-Dec-2018 Active Endari 5 GM Oral Packet Take 10 grams every 12 hours * Quantity: 120 Refills: 2 DAGOBERTO BORRERO M.D. * Start : 24-Dec-2018 Active HYDROmorphone HCl - 2 MG Oral Tablet Take 1 tb every 4-6 hours as needed for breakthrough pain (ie > 7/10) * Quantity: 90 Refills: 0 NATI DAY M.D. * Start : 29-Apr-2019 Active levETIRAcetam [...] Z01.419) Status: Resolved Procedures Procedure Dates Details [LH] Protein Total Urine Random Date: 28-Nov-2019 [QLH] CREATININE, RANDOM URINE Date: 28-Nov-2019 [QLH] RETICULOCYTE COUNT Date: 28-Nov-2019 [QLH] LD Date: 28-Nov-2019 [QLH] FERRITIN Date: 28-Nov-2019 [QLH] CBC (INCLUDES DIFF/PLT) Date: 28-Nov-2019 [L] Vitamin D, 25-Hydroxy, Total - Esoterix Date: 28-Nov-2019 [QL] CULTURE, CLOSTRIDIUM DIFFICILE W/REFL TOXIN Date: 28-Nov-2019 Immunization Name Dates Details Fluzone [...] Varivax 1350 PFU/0.5ML Subcutaneous Injectable Lot #: [id number] on: 02-Jun-2009 Meningo (Menactra) on: 02-Jun-2009 Tdap [...] smoker Vital Signs Date Test Result Details :28 BP Systolic 105 mm[Hg] Status: Comments: Location: [...] 65yrs) or more drinks in a day? [id number] Physical Findings 11 Status: Comments: PHQ-9 Adult Depression Screening Results Date Description Value Details :51 [O] Streptococcus Test Rapid (In Office) Group A Strep Screen Negative (Normal) Test Lot# [id number] (Normal) :52 [O] Flu Test (in Office ) Flu A Positive Flu B Negative (Normal) Test Lot# [id number] (Normal) Plan of Care Name Dates Details Planned Observations Planned Goals not documented Planned Encounters Appointment; JEANNIE MONTES DE OCA M.D. On: 19-Dec-2019 13:00 Appointment; NATI DAY M.D. On: 30-Dec-2019 15:20 Appointment; EEG, ADULTCLINIC On: 24-Jan-2020 8:00 Appointment; EDWARD KHAN M.D. On: 24-Jan-2020 9:30 Interventions Provided Medication Changes* Deferasirox 360 MG Oral Tablet - Renew * Endari 5 GM Oral Packet - Renew Labs/Procedures/Imaging* [L] Vitamin D, 25-Hydroxy, Total - Esoterix; To Be Done: 28 Nov 2019 * [LH] Protein Total Urine Random; To Be Done: 28 Nov 2019 * [QL] CULTURE, CLOSTRIDIUM DIFFICILE W/REFL TOXIN; To Be Done: 28 Nov 2019 * [QLH] CBC (INCLUDES DIFF/PLT); To Be Done: 28 Nov 2019 * [QLH] CREATININE, RANDOM URINE; To Be Done: 28 Nov 2019 * [QLH] FERRITIN; To Be Done: 28 Nov 2019 * [QLH] LD; To Be Done: 28 Nov 2019 * [QLH] RETICULOCYTE COUNT; To Be Done: 28 Nov 2019 * [O] Flu Test (in Office ); Done: 28 Nov 2019 * [O] Streptococcus Test Rapid (In Office); Done: 28 Nov 2019 * Tobacco Use Screening; Done: 28 Nov 2019 Medications/Immunizations Administered* Ibuprofen 200 MG Oral Tablet * Sodium Chloride 0.9 % Intravenous Solution Discussion/Summary* Impression: Ms Graves is a 23 [...] * 2) Chronic bone pain;. * - [place] 10/325 mg. and MS IR 30 mg. [...] - She wants to go back to [facility], will schedule an apt [...] schedule an apt with Dr Rosales in [place] who used to be her DIRECTOR MACHINE before she moved. * Evaluation: * After [...]
--- OUTSIDE RECORDS SUMMARY | 2019-12-31 13:14 | XMS REPORT | Summary of Care ---
Author Author Chelsey BANDER AND CELLOPHANER MACHINE HELPER, Domitila Organization Unknown Address Unknown Phone Unavailable Care Team Providers Care Portal Administrator Name Role Phone BILL Bauer, EDWARD Unavailable Unavailable BARB Bauer, NATI Unavailable Unavailable ADAIR Bauer, DAGOBERTO Unavailable Unavailable ADAIR MEEKS MO, DAGOBERTO M Unavailable Unavailable [facility] DAMARI HOLDER Unavailable Unavailable Barb MEEKS, Nati Unavailable Unavailable MARVIN MEEKS MO, KELSEY Unavailable Unavailable BILL MEEKS MO, EDWARD Unavailable Unavailable Jose MEEKS, Jeannie Unavailable [...] for drug screening (V72.85, Z02.83) Status: Active Acne (706.1, L70.9) Status: Active [...] Diarrhea, unspecified type (787.91, R19.7) Status: Active Influenza A (487.1, J10.1) Status: Active Upper respiratory tract infection (465.9, J06.9) Status: Active Iron overload (275.09, E83.19) Status: Active Diarrhea, unspecified type (787.91, R19.7) Status: Active Medications Name Dates Details Folic Acid 1 MG Oral Tablet TAKE 1 TABLET DAILY DIRECTED. Quantity: 60 APOSTOLIDOU M.D., EFFROSYNI Active Ondansetron HCl - 4 MG Oral Tablet TAKE 1 TABLET EVERY 8 HOURS PRN nausea * Quantity: 30 Refills: 3 JODY MOBLEY M.D.ROSYNMorena * Start : 06-Mar-2017 Active Polyethylene Glycol 3350 Oral Packet MIX 1 PACKET IN 8 OUNCES OF LIQUID AND DRINK ONCE DAILY. * Quantity: 30 Refills: 6 BARB Bauer, JODYROSYNMorena * Start : 27-Nov-2017 Active ALPRAZolam 1 MG Oral Tablet Take 1 tab daily as needed for anxiety * Quantity: 30 Refills: 0 NATI MOBLEY M.D. * Start : 29-Oct-2019 Active traZODone HCl - 50 MG Oral Tablet TAKE 1 TABLET AT BEDTIME. * Quantity: 30 Refills: 1 NATI MOBLEY M.D. * Start : 16-Jul-2018 Active Deferasirox [...] PAIN. * Quantity: 90 Refills: 0 NATI MOBLEY M.D. * Start : 24-Dec-2018 Active Endari [...] KHAN M.D. * Start : 15-Aug-2019 Active Oseltamivir Phosphate 75 MG Oral Capsule TAKE 1 CAPSULE TWICE DAILY. * Quantity: 10 Refills: 0 ADAIR M.D., DAGOBERTO * Start : 28-Nov-2019 Active Azithromycin 250 MG Oral Tablet TAKE 2 TABLETS ON DAY 1 THEN TAKE 1 TABLET A DAY FOR 4 DAYS. * Quantity: 1 Refills: 0 KAAYSEI M.D., DAGOBERTO * Start : 28-Nov-2019 Active 6 Tablet Pack Fluticasone Propionate 50 MCG/ACT Nasal Suspension INSTILL 2 SPRAY Daily PRN nasal congestion * Quantity: 1 Refills: 0 ADAIR Higgins.D., DAGOBERTO * Start : 28-Nov-2019 Active 9.9 ML Bottle RA Cetirizine 10 MG Oral Tablet TAKE 1 TABLET DAILY NEEDED. * Quantity: 30 Refills: 0 ADAIR Higgins.D., DAGOBERTO * Start : 28-Nov-2019 Active Allergies and Adverse Reactions Name Dates [...] Varivax 1350 PFU/0.5ML Subcutaneous Injectable Lot #: [id number] on: 02-Jun-2009 Meningo (Menactra) on: 02-Jun-2009 Tdap [...] smoker Vital Signs Date Test Result Details :56 BP Systolic 101 mm[Hg] Status: Comments: Location: LUE; Position: Sitting BP Diastolic 67 mm[Hg] Status: Comments: Location: LUE; Position: Sitting Temperature 98.4 f Status: Comments: Method: Oral Heart Rate 94 /min Status: Comments: Location: L Brachial Artery; Quality: Normal Respiration Rate 18 /min Status: Comments: Quality: Normal O2 SAT 100 % Status: Comments: Source: RA Physical Findings 3 Status: Comments: Pain Scale :28 BP Systolic 105 mm[Hg] Status: Comments: Location: RUE; Position: Sitting BP Diastolic 70 mm[Hg] Status: Comments: Location: RUE; Position: Sitting Temperature 98.2 f Status: Comments: Method: Oral Heart Rate 91 /min Status: Comments: Quality: Normal Respiration Rate 18 /min Status: Comments: Quality: Normal O2 SAT 98 % Status: Height 64 in Status: Weight 138.125 lb Status: Body Mass Index Calculated 23.71 kg/m2 Status: Body Surface Area Calculated 1.67 m2 Status: Physical Findings 0 Status: Comments: Alcohol Screen - How many times in the past yr have you had 5 (for M) or 4 (for F) or 4 (for all > 65yrs) or more drinks in a day? :43 Physical Findings 11 Status: Comments: PHQ-9 Adult Depression Screening Results Date Description Value Details :51 [O] Streptococcus Test Rapid (In Office) Group A Strep Screen Negative (Normal) Test Lot# [id number] (Normal) :52 [O] Flu Test (in Office ) Flu A Positive Flu B Negative (Normal) Test Lot# [id number] (Normal) Plan of Care Name Dates Details Planned Observations Planned Goals not documented Planned Encounters MLP Referral Appointment; JEANNIE MONTES DE OCA M.D. On: 19-Dec-2019 13:00 Appointment; NATI MOBLEY M.D. On: 30-Dec-2019 15:20 Appointment; EEG, ADULTCLINIC On: 24-Jan-2020 8:00 Appointment; EDWARD KHAN M.D. On: 24-Jan-2020 9:30 Interventions Provided Medication Changes* Azithromycin 250 MG Oral Tablet - Start * Deferasirox 360 MG Oral Tablet - Renew * Endari 5 GM Oral Packet - Renew * Fluticasone Propionate 50 MCG/ACT Nasal Suspension - Start * Oseltamivir Phosphate 75 MG Oral Capsule - Start * RA Cetirizine 10 MG Oral Tablet - Start Labs/Procedures/Imaging* [L] Vitamin D, 25-Hydroxy, Total - [...] Tobacco Use Screening; Done: 28 Nov 2019 Follow-ups/Referrals* Rolled Seat Trimmer Service Request; Done: 28 Nov 2019 Medications/Immunizations Administered* Ibuprofen 200 MG Oral Tablet * Sodium Chloride 0.9 % Intravenous Solution Plan* Interventions Provided * Supportive counseling . * Acknowledgement Patient verbalizes understanding of Plan * Follow Up * Rolled Seat Trimmer will follow up with patient around/for * Next Clinic Appointment Provider name Dr. Montes De Oca , Appointment date/time 12/19/19 Instructions Name Dates Details Instructions not documented [...] Problem not documented On: 05-Aug-2019 10:00 Appointment; EJANNIE MONTES DE OCA M.D. Encounter Diagnosis: Problem [...]
--- OUTSIDE RECORDS SUMMARY | 2019-12-31 13:14 | XMS REPORT | Summary of Care ---
Author Author Delia Ledesma R.N. Unknown Address Unknown Phone Unavailable Care Team Providers Care Law Writer Name Role Phone BILL Bauer, EDWARD Unavailable Unavailable BARB Bauer, NATI Unavailable Unavailable ADAIR Bauer, DAGOBERTO Unavailable Unavailable ADAIR MEEKS [place], DAGOBERTO M Unavailable Unavailable [facility] DAMARI HOLDER Unavailable Unavailable Barb MEEKS, Nati Unavailable Unavailable MARVIN MEEKS SC, KELSEY Unavailable Unavailable BILL MEEKS SC, EDWARD Unavailable Unavailable Jose MEEKS, Jeannie Unavailable [...] BEDTIME. * Quantity: 30 Refills: 1 JODY MOBLEY M.D.ROSYNI * Start : 16-Jul-2018 Active Deferasirox [...] 7/10) * Quantity: 90 Refills: 0 JODY MOBLEY M.D.ROSYNI * Start : 29-Apr-2019 Active levETIRAcetam [...] Varivax 1350 PFU/0.5ML Subcutaneous Injectable Lot #: [id number] on: 02-Jun-2009 Meningo (Menactra) on: 02-Jun-2009 Tdap [...] 65yrs) or more drinks in a day? [id number] Physical Findings 11 Status: Comments: PHQ-9 Adult [...] 28 Nov 2019 Discussion/Summary* Impression: Ms Graves Is a 24 year old patient with Sickle cell disease worsening * The visit took 45 minutes to complete. Greater than 1/2 the time was spent on counseling. follow-up 4 weeks Instructions Name Dates Details Instructions not documented [...]
--- OUTSIDE RECORDS SUMMARY | 2019-12-31 13:14 | XMS REPORT | Summary of Care ---
Author Author ADAIR Bauer, DAGOBERTO Organization Unknown Address Unknown Phone Unavailable Care Team Providers Care Plate Painter Apprentice Name Role Phone BILL Bauer, EDWARD Unavailable Unavailable BARB Bauer, NATI Unavailable Unavailable ADAIR Bauer, DAGOBERTO Unavailable Unavailable ADAIR MEEKS [place], DAGOBERTO M Unavailable Unavailable [facility] DAMARI HOLDER Unavailable Unavailable Barb MEEKS, Nati Unavailable Unavailable MARVIN MEEKS [place], KELSEY Unavailable Unavailable BILL MEEKS [place], EDWARD Unavailable Unavailable Jose EMEKS, Jeannie Unavailable Unavailable Unavailable Unavailable Functional Status [...] * Quantity: 30 Refills: 3 JODY MOBLEY M.D.ROSRIAZ * Start : 06-Mar-2017 Active Polyethylene Glycol 3350 Oral Packet MIX 1 PACKET IN 8 OUNCES OF LIQUID AND DRINK ONCE DAILY. * Quantity: 30 Refills: 6 JODY MOBLEY M.D.ROSYNMorena * Start : 27-Nov-2017 Active ALPRAZolam 1 [...] TWICE DAILY. * Quantity: 10 Refills: 0 KAISSI M.D., DAGOBERTO * Start : 28-Nov-2019 Active Azithromycin 250 MG Oral Tablet TAKE 2 TABLETS ON DAY 1 THEN TAKE 1 TABLET A DAY FOR 4 DAYS. * Quantity: 1 Refills: 0 KAISSI M.D., DAGOBERTO * Start : 28-Nov-2019 Active 6 Tablet Pack Fluticasone Propionate 50 MCG/ACT Nasal Suspension INSTILL 2 SPRAY Daily PRN nasal congestion * Quantity: 1 Refills: 0 KAISSI M.D., DAGOBERTO * Start : 28-Nov-2019 Active 9.9 ML Bottle RA Cetirizine 10 MG Oral Tablet TAKE 1 TABLET DAILY NEEDED. * Quantity: 30 Refills: 0 KAISSI M.D., DAGOBERTO * Start : 28-Nov-2019 Active Allergies [...] [LH] Protein Total Urine Random Date: 28-Nov-2019 [QL] CREATININE, RANDOM URINE Date: 28-Nov-2019 [QLH] RETICULOCYTE [...] Varivax 1350 PFU/0.5ML Subcutaneous Injectable Lot #: [id number] on: 02-Jun-2009 Meningo (Menactra) on: 02-Jun-2009 Tdap [...] A Strep Screen Negative (Normal) Test Lot# [id number] (Normal) :52 [O] Flu Test (in Office ) Flu A Positive Flu B Negative (Normal) Test Lot# [id number] (Normal) :52 [O] Urine Dipstick (In Office) Glucose Negative (Normal) LEUKOCYTES Negative (Normal) NITRITE Negative (Normal) UROBILINOGEN 0.2 E.U./dL (Normal) PROTEIN Negative (Normal) pH 6.5 URINE BLOOD Negative (Normal) SPECIFIC GRAVITY 1.020 KETONES Negative (Normal) BILIRUBIN Negative (Normal) COLOR URINE Hazy Yellow (Normal) Plan of Care Name Dates Details Planned Observations Planned Goals not documented Planned Encounters Appointment; JEANNIE MONTES DE OCA M.D. On: 19-Dec-2019 13:00 Appointment; NATI MOBLEY M.D. On: 30-Dec-2019 15:20 Appointment; EEG, ADULTCLINIC On: 24-Jan-2020 8:00 Appointment; EDWARD KHAN M.D. On: 24-Jan-2020 9:30 Interventions Provided Labs/Procedures/Imaging* [QL] CULTURE, CLOSTRIDIUM DIFFICILE W/REFL TOXIN; To Be Done: 28 Nov 2019 Medications/Immunizations Administered* Ibuprofen 200 MG Oral Tablet * Sodium Chloride 0.9 % Intravenous Solution Instructions Name Dates Details Instructions not documented [...]
--- OUTSIDE RECORDS SUMMARY | 2019-12-31 13:15 | XMS REPORT | Summary of Care ---
Author Author Nurys Galicia Sudhir Unknown Address Unknown Phone Unavailable Care Team Providers Care Online Trader Name Role Phone BILL Bauer, EDWARD Unavailable Unavailable BARB Bauer, NATI Unavailable Unavailable ADAIR Bauer, DAGOBERTO Unavailable Unavailable ADAIR MEEKS PA, DAGOBERTO M Unavailable Unavailable DEBORAH AGRICULTURAL EQUIPMENT SALES MANAGER DAMARI MENDOZAANDA Unavailable Unavailable Barb MEEKS, Nati Unavailable Unavailable MARVIN MEEKS PA, KELSEY Unavailable Unavailable BILL MEEKS PA, EDWARD Unavailable Unavailable Jose MEEKS, Jeannie Unavailable [...] * Quantity: 30 Refills: 3 APOSTOLIDOU M.D., EFFROSRIAZ * Start : 06-Mar-2017 Active Polyethylene Glycol [...] DAILY. * Quantity: 10 Refills: 0 ADAIR Higgins.Avtar., DAGOBERTO * Start : 28-Nov-2019 Active Azithromycin 250 MG Oral Tablet TAKE 2 TABLETS ON DAY 1 THEN TAKE 1 TABLET A DAY FOR 4 DAYS. * Quantity: 1 Refills: 0 ADAIR Higgins.D., DAGOBERTO * Start : 28-Nov-2019 Active 6 Tablet Pack Fluticasone Propionate 50 MCG/ACT Nasal Suspension INSTILL 2 SPRAY Daily PRN nasal congestion * Quantity: 1 Refills: 0 ADAIR Higgins.Avtar., DAGOBERTO * Start : 28-Nov-2019 Active 9.9 ML Bottle RA Cetirizine 10 MG Oral Tablet TAKE 1 TABLET DAILY NEEDED. * Quantity: 30 Refills: 0 ADAIR Higgins.Avtar., DAGOBERTO * Start : 28-Nov-2019 Active Allergies [...] 28-Nov-2019 [QLH] CREATININE, RANDOM URINE Date: 28-Nov-2019 [L] Vitamin D, 25-Hydroxy, Total [...] Varivax 1350 PFU/0.5ML Subcutaneous Injectable Lot #: [id number] on: 02-Jun-2009 Meningo (Menactra) on: 02-Jun-2009 Tdap [...] A Strep Screen Negative (Normal) Test Lot# [id number] (Normal) :52 [O] Flu Test (in Office ) Flu A Positive Flu B Negative (Normal) Test Lot# [id number] (Normal) :52 [O] Urine Dipstick (In Office) Glucose Negative (Normal) LEUKOCYTES Negative (Normal) NITRITE Negative (Normal) UROBILINOGEN 0.2 E.U./dL (Normal) PROTEIN Negative (Normal) pH 6.5 URINE BLOOD Negative (Normal) SPECIFIC GRAVITY 1.020 KETONES Negative (Normal) BILIRUBIN Negative (Normal) COLOR URINE Hazy Yellow (Normal) :00 [QLH] CBC (INCLUDES DIFF/PLT) WBC 11.1 {x10E3/uL} (Above high threshold) Range: 3.4-10.8 RBC 4.08 {x10E6/uL} Range: 3.77-5.28 Hemoglobin 9.2 g/dL (Below low threshold) Range: 11.1-15.9 Hematocrit 31.1 % (Below low threshold) Range: 34.0-46.6 MCV 76 fL (Below low threshold) Range: 79-97 MCH 22.5 pg (Below low threshold) Range: 26.6-33.0 MCHC 29.6 g/dL (Below low threshold) Range: 31.5-35.7 RDW 19.2 % (Above high threshold) Range: 11.7-15.4 Platelets 430 {x10E3/uL} Range: 150-450 Neutrophils 74 % Range: Not Estab. Lymphs 15 % Range: Not Estab. Monocytes 10 % Range: Not Estab. Eos 0 % Range: Not Estab. Basos 1 % Range: Not Estab. Immature Cells Neutrophils (Absolute) 8.2 {x10E3/uL} (Above high threshold) Range: 1.4-7.0 Lymphs (Absolute) 1.6 {x10E3/uL} Range: 0.7-3.1 Monocytes(Absolute) 1.1 {x10E3/uL} (Above high threshold) Range: 0.1-0.9 Eos (Absolute) 0.0 {x10E3/uL} Range: 0.0-0.4 Baso (Absolute) 0.1 {x10E3/uL} Range: 0.0-0.2 Immature Granulocytes 0 % Range: Not Estab. Immature Grans (Abs) 0.0 {x10E3/uL} Range: 0.0-0.1 NRBC Hematology Comments: :00 [QLH] LD LDH 320 {IU/L} (Above high threshold) Range: 119-226 :00 [QLH] FERRITIN Ferritin, Serum 2721 ng/mL (Above high threshold) Range: 15-150 Comments: Results confirmed ondilution. :00 [QLH] RETICULOCYTE COUNT Reticulocyte Count 5.2 % (Above high threshold) Range: 0.6-2.6 28-Nov-20190:00 [L] Request Problem Request Problem REJ5 Comments: The specimen submitted does not meet the laboratory's criteria foracceptability. Refer to [facility]'s Directory of Services for specimenacceptability criteria.No anaerobic transport device received. TEST: [id number] C difficile Toxigenic Mbkdbyv2011/29/2019[facility] Plan of Care Name Dates Details Planned Observations Planned Goals not documented Planned Encounters Appointment; JEANNIE MONTES DE OCA M.D. On: 19-Dec-2019 13:00 Appointment; NATI MOBLEY M.D. On: 30-Dec-2019 15:20 Appointment; BARBARA, ADULTCLINIC On: 24-Jan-2020 8:00 Appointment; EDWARD KHAN M.D. On: 24-Jan-2020 9:30 Interventions Provided Follow-ups/Referrals* Community Health Worker Service Request; To Be Done: 29 Nov 2019 Instructions Name Dates Details Instructions not documented [...]
--- OUTSIDE RECORDS SUMMARY | 2019-12-31 13:15 | XMS REPORT | Summary of Care ---
Author Author DavonAniyacobysissy Sudhir Unknown Address Unknown Phone Unavailable Care Team Providers Care Land Checker Name Role Phone BILL Bauer, EDWARD Unavailable Unavailable BARB Bauer, NATI Unavailable Unavailable ADAIR Bauer, DAGOBERTO Unavailable Unavailable ADAIR MEEKS [place], DAGOBERTO M Unavailable Unavailable DEBORAH CASTING MACHINE SERVICE OPERATOR DAMARI MENDOZAANDA Unavailable Unavailable Barb MEEKS, Nati Unavailable Unavailable MAVRIN MEEKS [place], KELSEY Unavailable Unavailable BILL MEEKS [place], EDWARD Unavailable Unavailable Jose MEEKS, Jeannie Unavailable [...] anxiety * Quantity: 30 Refills: 0 NATI DAY M.D. * Start : 29-Oct-2019 Active traZODone [...] Varivax 1350 PFU/0.5ML Subcutaneous Injectable Lot #: [id number] on: 02-Jun-2009 Meningo (Menactra) on: 02-Jun-2009 Tdap [...] A Strep Screen Negative (Normal) Test Lot# [id number] (Normal) :52 [O] Flu Test (in Office ) Flu A Positive Flu B Negative (Normal) Test Lot# [id number] (Normal) :52 [O] Urine Dipstick (In Office) [...] specimenacceptability criteria.No anaerobic transport device received. TEST: [id number] C difficile Toxigenic Tjzwevl6311/29/2019-[facility] Plan of Care Name Dates Details Planned Observations Planned Goals not documented Planned Encounters MLP Referral Community Health Worker Service Request Appointment; JEANNIE MONTES DE OCA M.D. 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 * - She was started on 0.9 % NS. * - She is still refusing to start on HU. * - Re sent Endari. * - Folic acid 1 mg daily. * - Advised to drink plenty of water, maintain good hydration and avoid the extreme of temperatures. * - She has an appointment with Dr Day on 12/30/2019. * 2) Chronic bone pain;. * - Brethren 10/325 mg. and MS IR 30 mg. she'll need RF next week. * - She is on Dilaudid 2 mg q 4-6 hours PRN. * 3) The patient presented with URI symptoms, fever, chills, NS, H/A.She declined the Flu vaccine this season: * - Flu swab was positive for flu A. * - Strep throat was negative. * - She was advised that her mother, brother and close contacts should contact their physicians for a Tamiflu Rx. * - Tamiflu 75 mg BID for 5 days. * - Azithromycin Z pack was sent to the pharmacy. * - Flonase nasal spray. * - cetirizine 10 mg daily PRN. * 4) Proteinuria: * - Protein / creatinine ratio in 05/2019 was 0.45, the previous one in was 0.38. * - The patient was referred to nephrology. * - Will check the level today. * 5) Seizures: * - On Keppra, has RF. * - She is F/U with [place] [facility] - [facility]. * 6) Anxiety / Depression: * - She denied any suicidal thoughts or ideas. * - Apt with Dr. Montes De Oca on 12/19/2019. * - On Alprazolam and Sertraline. * 7) Insomnia: * - On Trazodone. * 8) Diarrhea: * - Imodium AD OTC. * - Check C. Diff. * - Increase fluid intake. * - Avoid fatty and fried food. * 9) Iron overload: * - Re sent Jessica to the pharmacy. * - Check Ferritin level. * 10) Burning micturition: * - Urine dipstick was done in the office and was negative. * Evaluation: * After receiving IVF 0.9% NS she said pain stayed 3/10. She declined having more fluid. * She was discharged home with her friend in a stable condition. * F/U PRN. Instructions Name Dates Details Instructions not documented [...]
--- OUTSIDE RECORDS SUMMARY | 2019-12-31 13:15 | XMS REPORT | Summary of Care ---
Author Author ADAIR Bauer, DAGOBERTO Organization Unknown Address Unknown Phone Unavailable Care Team Providers Care Desizing Machine Offbearer Name Role Phone BILL Bauer, EDWARD Unavailable Unavailable BARB aBuer, NATI Unavailable Unavailable ADAIR Bauer, DAGOBERTO Unavailable Unavailable ADAIR MEEKS [place], DAGOBERTO M Unavailable Unavailable DEBORAH [facility] DAMARI HOLDER Unavailable Unavailable Barb MEEKS, [...] TWICE DAILY. * Quantity: 10 Refills: 0 KAAYSEI M.D., DAGOBERTO * Start [...] nasal congestion * Quantity: 1 Refills: 0 KAAYSEI M.D., DAGOBERTO * Start : 28-Nov-2019 Active 9.9 ML Bottle RA Cetirizine 10 MG Oral Tablet TAKE 1 TABLET DAILY NEEDED. * Quantity: 30 Refills: 0 MARAI M.D., DAGOBERTO * Start : 28-Nov-2019 Active [...] Varivax 1350 PFU/0.5ML Subcutaneous Injectable Lot #: [id number] on: 02-Jun-2009 Meningo (Menactra) on: 02-Jun-2009 Tdap [...] A Strep Screen Negative (Normal) Test Lot# [id number] (Normal) :52 [O] Flu Test (in Office ) Flu A Positive Flu B Negative (Normal) Test Lot# [id number] (Normal) :52 [O] Urine Dipstick (In Office) [...] specimenacceptability criteria.No anaerobic transport device received. TEST: [id number] C difficile Toxigenic Lbqzihc2711/29/2019[facility] Plan of Care Name Dates Details Planned [...] not documented On: 26-Dec-2017 10:00 Appointment; NATI MOBELY M.D. Encounter Diagnosis: Problem not documented On: [...]
--- OUTSIDE RECORDS SUMMARY | 2019-12-31 13:16 | XMS REPORT | Summary of Care ---
Author Author BARB Bauer, NATI Organization Unknown Address Unknown Phone Unavailable Care Team Providers Care Street Superintendent Name Role Phone BILL Bauer, EDWARD Unavailable Unavailable BARB Bauer, NATI Unavailable Unavailable ADAIR Bauer, DAGOBERTO Unavailable Unavailable ADAIR MEEKS [place], DAGOBERTO M Unavailable Unavailable DEBORAH [facility] DAMARI GALLO Unavailable Unavailable Barb MEEKS, Nati Unavailable Unavailable [...] for pain * Quantity: 90 Refills: 0 NATI MOBLEY M.D. * Start : 19-Oct-2018 Active HYDROcodone-Acetaminophen [...] Z01.419) Status: Resolved Procedures Procedure Dates Details [QL] CULTURE, CLOSTRIDIUM DIFFICILE W/REFL TOXIN Date: [...] Varivax 1350 PFU/0.5ML Subcutaneous Injectable Lot #: [id number] on: 02-Jun-2009 Meningo (Menactra) on: 02-Jun-2009 Tdap [...] smoker Vital Signs Date Test Result Details [id number]-[id number] BP Systolic 101 mm[Hg] Status: Comments: Location: [...] 65yrs) or more drinks in a day? Results Date Description Value Details :51 [O] Streptococcus Test Rapid (In Office) Group A Strep Screen Negative (Normal) Test Lot# [id number] (Normal) :52 [O] Flu Test (in Office ) Flu A Positive Flu B Negative (Normal) Test Lot# [id number] (Normal) :52 [O] Urine Dipstick (In Office) [...] 5.2 % (Above high threshold) Range: 0.6-2.6 :00 [L] Request Problem Request Problem REJ5 Comments: The specimen submitted does not meet the laboratory's criteria foracceptability. Refer to [facility]'s Directory of Services for specimenacceptability criteria.No anaerobic transport device received. TEST: [id number] C difficile Toxigenic Nskxtzd5211/29/2019[facility] 28-Nov-20190:00 [LH] Protein Total Urine Random Protein,Total,Urine 21.3 mg/dL Range: Not Estab. 28-Nov-20190:00 [QLH] CREATININE, RANDOM URINE Creatinine, Urine 59.5 mg/dL Range: Not Estab. 28-Nov-20190:00 [L] Vitamin D, 25-Hydroxy, Total - Esoterix Vitamin D, 25-Hydroxy, Serum 42 ng/mL Comments: Reference Range:All Ages: Target levels 30 - 100 Plan of Care Name Dates Details Planned Observations Planned Goals not documented Planned Encounters Appointment; JEANNIE MONTES DE OCA M.D. On: 19-Dec-2019 13:00 Appointment; NATI MOBLEY M.D. On: 30-Dec-2019 15:20 Appointment; EEG, ADULTCLINIC On: 24-Jan-2020 8:00 Appointment; EDWARD KHAN M.D. On: 24-Jan-2020 9:30 Interventions Provided Medication Changes* HYDROcodone-Acetaminophen 10-325 MG Oral Tablet - Renew * Morphine Sulfate 30 MG Oral Tablet - Renew Instructions Name [...]
--- OUTSIDE RECORDS SUMMARY | 2019-12-31 13:16 | XMS REPORT | Summary of Care ---
Author Author ADAIR Bauer, DAGOBERTO Organization Unknown Address Unknown Phone Unavailable Care Team Providers Care Chief Financial Officer Name Role Phone BILL Bauer, EDWARD Unavailable Unavailable BARB Bauer, NATI Unavailable Unavailable ADAIR Bauer, DAGOBERTO Unavailable Unavailable ADAIR MEEKS [place], DAGOBERTO M Unavailable Unavailable DEBORAH [facility] DAMARI HOLDER Unavailable Unavailable Brab MEEKS, Nati Unavailable Unavailable MARVIN MEEKS [place], KELSEY Unavailable Unavailable BILL MEEKS [place], EDWARD Unavailable Unavailable Jose MEEKS, Jeannie Unavailable [...] nasal congestion * Quantity: 1 Refills: 0 MARAI M.D., DAGOBERTO * Start [...] Z01.419) Status: Resolved Procedures Procedure Dates Details [L] Vitamin D, 25-Hydroxy, Total - Esoterix [...] Varivax 1350 PFU/0.5ML Subcutaneous Injectable Lot #: [id number] on: 02-Jun-2009 Meningo (Menactra) on: 02-Jun-2009 Tdap [...] A Strep Screen Negative (Normal) Test Lot# [id number] (Normal) :52 [O] Flu Test (in Office ) Flu A Positive Flu B Negative (Normal) Test Lot# [id number] (Normal) :52 [O] Urine Dipstick (In Office) [...] specimenacceptability criteria.No anaerobic transport device received. TEST: [id number] C difficile Toxigenic Uugjxen3811/29/2019[facility] 28-Nov-20190:00 [LH] Protein Total Urine Random Protein,Total,Urine 21.3 mg/dL Range: Not Estab. 28-Nov-20190:00 [QLH] CREATININE, RANDOM URINE Creatinine, Urine 59.5 mg/dL Range: Not Estab. Plan of Care Name Dates Details Planned Observations Planned Goals not documented Planned Encounters Appointment; JEANNIE MONTES DE OCA M.D. On: 19-Dec-2019 13:00 Appointment; NATI MOBLEY M.D. On: 30-Dec-2019 15:20 Appointment; BARBARA ADULTCLINIC On: 24-Jan-2020 8:00 Appointment; EDWARD KHAN [...] Problem not documented On: 14-Jun-2019 14:00 Appointment; BILL, EDWARD, M.D. Encounter Diagnosis: Problem not documented On: [...]
--- OUTSIDE RECORDS SUMMARY | 2019-12-31 13:16 | XMS REPORT | Summary of Care ---
Author Author Nurys Galicia Sudhir Unknown Address Unknown Phone Unavailable Care Team Providers Care Plug Paster Name Role Phone BILL Bauer, EDWARD Unavailable Unavailable BARB Bauer, NATI Unavailable Unavailable ADAIR Bauer, DAGOBERTO Unavailable Unavailable ADAIR MEEKS [place], DAGOBERTO M Unavailable Unavailable DEBORAH SUPERINTENDENT CONSTRUCTION DAMARI MENDOZAANDA Unavailable Unavailable Barb MEEKS, Nati Unavailable Unavailable MARVIN MEEKS [place], KELSEY Unavailable Unavailable BILL MEEKS [place], EDWARD Unavailable Unavailable Jose MEEKS, Jeannie Unavailable [...] Varivax 1350 PFU/0.5ML Subcutaneous Injectable Lot #: [id number] on: 02-Jun-2009 Meningo (Menactra) on: 02-Jun-2009 Tdap [...] A Strep Screen Negative (Normal) Test Lot# [id number] (Normal) :52 [O] Flu Test (in Office ) Flu A Positive Flu B Negative (Normal) Test Lot# [id number] (Normal) :52 [O] Urine Dipstick (In Office) [...] specimenacceptability criteria.No anaerobic transport device received. TEST: [id number] C difficile Toxigenic Ffoebje6511/29/2019[facility] Plan of Care Name Dates Details Planned Observations Planned Goals not documented Planned Encounters Appointment; JEANNIE MONTES DE OCA M.D. On: 19-Dec-2019 13:00 Appointment; NATI MOBLEY M.D. On: 30-Dec-2019 15:20 Appointment; BARBARA, ADULTCLINIC On: 24-Jan-2020 8:00 Appointment; EDWARD KHAN M.D. On: 24-Jan-2020 9:30 Interventions Provided Follow-ups/Referrals* MLP Referral; To Be Done: 29 Nov 2019 Instructions [...] Problem not documented On: 16-Jul-2018 9:30 Appointment; IMSSY VIGIL LCSW Encounter Diagnosis: Problem not documented [...]
--- OUTSIDE RECORDS SUMMARY | 2019-12-31 13:16 | XMS REPORT | Summary of Care ---
Author Author Nurys Galicia Organization Unknown Address Unknown Phone Unavailable Care Team Providers Care Transfer Worker Name Role Phone BILL Bauer, EDWARD Unavailable Unavailable Nurys Galicia Unavailable Unavailable BARB Bauer, EFFROSYNI Unavailable Unavailable ADAIR Bauer, DAGOBERTO Unavailable Unavailable ADAIR MEEKS [place], DAGOBERTO M Unavailable Unavailable DEBORAH SQUIRT MACHINE OPERATOR DAMARI MENDOZAANDA Unavailable Unavailable Barb MEEKS, Dequanyni Unavailable Unavailable MARVIN MEEKS [place], KELSEY Unavailable [...] TAKE 1 TABLET DAILY DIRECTED. Quantity: 60 APOSTSARY Bauer, EFFROSYNI Active Ondansetron HCl - 4 MG Oral Tablet TAKE 1 TABLET EVERY 8 HOURS PRN nausea * Quantity: 30 Refills: 3 JODY MOBLEY M.D.ROSRIAZ * Start : 06-Mar-2017 Active Polyethylene Glycol 3350 Oral Packet MIX 1 PACKET IN 8 OUNCES OF LIQUID AND DRINK ONCE DAILY. * Quantity: 30 Refills: 6 CARRIE MOBLEY M.D. * Start : 27-Nov-2017 Active ALPRAZolam 1 MG Oral Tablet Take 1 tab daily as needed for anxiety * Quantity: 30 Refills: 0 CARRIE MOBLEY M.D. * Start : 29-Oct-2019 Active traZODone HCl - 50 MG Oral Tablet TAKE 1 TABLET AT BEDTIME. * Quantity: 30 Refills: 1 CARRIE MOBLEY M.D. * Start : 16-Jul-2018 Active [...] FOR PAIN. * Quantity: 90 Refills: 0 CARRIE MOBLEY M.D. * Start : 24-Dec-2018 Active Endari 5 GM Oral Packet Take 10 grams every 12 hours * Quantity: 120 Refills: 2 DAGOBERTO BORRERO M.D. * Start : 24-Dec-2018 Active HYDROmorphone HCl - 2 MG Oral Tablet Take 1 tb every 4-6 hours as needed for breakthrough pain (ie > 7/10) * Quantity: 90 Refills: 0 CARRIE MOBLEY M.D. * Start : 29-Apr-2019 Active [...] Varivax 1350 PFU/0.5ML Subcutaneous Injectable Lot #: [id number] on: 02-Jun-2009 Meningo (Menactra) on: 02-Jun-2009 Tdap [...] A Strep Screen Negative (Normal) Test Lot# [id number] (Normal) :52 [O] Flu Test (in Office ) Flu A Positive Flu B Negative (Normal) Test Lot# [id number] (Normal) :52 [O] Urine Dipstick (In Office) [...] specimenacceptability criteria.No anaerobic transport device received. TEST: [id number] C difficile Toxigenic Dpyoxdh2311/29/2019[facility] Plan of [facility] Name Dates Details Planned Observations Planned Goals not documented Planned Encounters Appointment; JEANNIE MONTES DE OCA M.D. On: 19-Dec-2019 13:00 Appointment; CARRIE MOBLEY M.D. On: 30-Dec-2019 15:20 Appointment; BARBARA, ADULTCLINIC On: 24-Jan-2020 8:00 Appointment; EDWARD KHAN M.D. On: 24-Jan-2020 9:30 Interventions Provided Follow-ups/Referrals* MLP Referral; Done: 29 Nov 2019 Instructions Name Dates Details Instructions not documented Encounters Appointment; CARRIE MOBLEY M.D. Encounter Diagnosis: Problem [...] Problem not documented On: 24-Dec-2018 15:40 Appointment; DAGOBRETO BORRERO M.D. Encounter Diagnosis: Problem not documented [...] Problem not documented On: 29-Apr-2019 13:00 Appointment; CARRIE MOBLEY M.D. Encounter Diagnosis: [...] Problem not documented On: 19-Aug-2019 13:30 Appointment; CARRIE MOBLEY M.D. Encounter Diagnosis: Problem not documented On: 19-Aug-2019 14:40 Appointment; DAGOBERTO BORRERO M.D. Encounter Diagnosis: Problem not documented On: 04-Oct-2019 13:15 Appointment; EDWARD KHAN M.D. Encounter Diagnosis: Problem not documented On: 22-Oct-2019 15:00 Appointment; CARRIE MOBLEY M.D. Encounter Diagnosis: Problem not documented On: 28-Oct-2019 15:20 Appointment; DAGOBERTO BORRERO M.D. Encounter Diagnosis: Problem not documented On: 28-Nov-2019 9:00
--- OUTSIDE RECORDS SUMMARY | 2019-12-31 13:16 | XMS REPORT | Summary of Care ---
Author Author ADAIR Bauer, DAGOBERTO Organization Unknown Address Unknown Phone Unavailable Care Team Providers Care Certified Hearing Instrument Dispenser Name Role Phone BILL Bauer, EDWARD Unavailable Unavailable BARB Bauer, NATI Unavailable Unavailable ADAIR Bauer, DAGOBERTO Unavailable Unavailable ADAIR MEEKS [place], DAGOBEROT M Unavailable Unavailable DEBORAH [facility] DAMARI HOLDER Unavailable Unavailable Barb MEEKS, Nati Unavailable Unavailable MARVIN MEEKS [place], KELSEY Unavailable Unavailable BILL MEEKS [place], EDWARD Unavailable Unavailable Jose MEEKS, Jeannie Unavailable [...] nausea * Quantity: 30 Refills: 3 JODY MOBLYE M.D.ROSRIAZ * Start : 06-Mar-2017 Active Polyethylene [...] TWICE DAILY. * Quantity: 10 Refills: 0 KAMEKA M.D., DAGOBERTO * Start : 28-Nov-2019 Active [...] Varivax 1350 PFU/0.5ML Subcutaneous Injectable Lot #: [id number] on: 02-Jun-2009 Meningo (Menactra) on: 02-Jun-2009 Tdap [...] A Strep Screen Negative (Normal) Test Lot# [id number] (Normal) :52 [O] Flu Test (in Office ) Flu A Positive Flu B Negative (Normal) Test Lot# [id number] (Normal) :52 [O] Urine Dipstick (In Office) [...] specimenacceptability criteria.No anaerobic transport device received. TEST: [id number] C difficile Toxigenic Janazzf7611/29/2019[facility] 28-Nov-20190:00 [LH] Protein Total Urine Random [...]
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
--- OUTSIDE RECORDS SUMMARY | 2019-12-31 13:17 | XMS REPORT | Summary of Care ---
Author Author Nurys Galicia Organization Unknown Address Unknown Phone Unavailable Care Team Providers Care Raw Juice Weigher Name Role Phone BILL Bauer, EDWARD Unavailable Unavailable Nurys Galicia Unavailable Unavailable BARB Bauer, EFFROSYNI Unavailable Unavailable ADAIR Bauer, DAGOBERTO Unavailable Unavailable ADAIR MEEKS MS, DAGOBERTO M Unavailable Unavailable DEBORAH APPLICATIONS SALES REPRESENTATIVE DAMARI MENDOZAANDA Unavailable Unavailable Barb MEEKS, Dequanyni Unavailable Unavailable MARVIN MEEKS MS, KELSEY Unavailable Unavailable BILL MEEKS MS, EDWARD Unavailable Unavailable Jose MEEKS, Jeannie Unavailable [...] for pain * Quantity: 90 Refills: 0 CARRIE MOBLEY M.D. * Start : 19-Oct-2018 Active [...] Varivax 1350 PFU/0.5ML Subcutaneous Injectable Lot #: [id number] on: 02-Jun-2009 Meningo (Menactra) on: 02-Jun-2009 Tdap [...] smoker Vital Signs Date Test Result Details [id number] BP Systolic 101 mm[Hg] Status: Comments: Location: [...] A Strep Screen Negative (Normal) Test Lot# [id number] (Normal) :52 [O] Flu Test (in Office ) Flu A Positive Flu B Negative (Normal) Test Lot# [id number] (Normal) :52 [O] Urine Dipstick (In Office) [...] threshold) Range: 15-150 Comments: Results confirmed ondilution. : [QLH] RETICULOCYTE COUNT Reticulocyte Count 5.2 % (Above high threshold) Range: 0.6-2.6 :00 [L] Request Problem Request Problem REJ5 Comments: The specimen submitted does not meet the laboratory's criteria foracceptability. Refer to [facility]'s Directory of Services for specimenacceptability criteria.No anaerobic transport device received. TEST: [id number] C difficile Toxigenic Yhpnkok5611/29/2019[facility] 28-Nov-20190:00 [LH] Protein Total Urine Random Protein,Total,Urine [...]
--- OUTSIDE RECORDS SUMMARY | 2019-12-31 13:17 | XMS REPORT | Summary of Care ---
Author Author BARB Bauer, NATI Organization Unknown Address Unknown Phone Unavailable Care Team Providers Care Skates Operator Name Role Phone BILL Bauer, EDWARD Unavailable Unavailable TAVON Bauer, JEANNIE Unavailable Unavailable BARB Bauer, EFFROSYNI Unavailable Unavailable ADAIR Bauer, DAGOBERTO Unavailable Unavailable ADAIR MEEKS [place], DAGOBERTO M Unavailable Unavailable [facility]AH [facility] DAMARI HOLDER Unavailable Unavailable Barb MEEKS, Nati Unavailable Unavailable MARVIN MEEKS [place], KELSEY Unavailable Unavailable BILL MEEKS [place], EDWARD Unavailable Unavailable Tavon MEEKS, Jeannie Unavailable [...] DAILY. * Quantity: 10 Refills: 0 DAGOBERTO BORRERO M.D. * Start : 28-Nov-2019 Active Azithromycin [...] TOXIN Date: 28-Nov-2019 Immunization Name Dates Details Gardasil 9 Intramuscular Suspension Prefilled Syringe Not Administered Fluzone Quadrivalent 0.5 ML Intramuscular Suspension Prefilled Syringe Not Administered Prevnar 13 Intramuscular Suspension Not Administered Hepatitis B, adolescent (2 dose [...] Solution Reconstituted on: 21-Aug-1997 DTaP on: 21-Aug-1997 Varicella on: 21-Aug-1997 MMR on: 21-Aug-1997 DTaP on: 19-Feb-2001 IPV on: 19-Feb-2001 MMR on: 19-Feb-2001 Varivax 1350 PFU/0.5ML Subcutaneous Injectable Lot #: [id number] on: 02-Jun-2009 Tdap (Adacel) on: 02-Jun-2009 Meningo (Menactra) on: 02-Jun-2009 Gardasil 9 Intramuscular Suspension Prefilled [...] (finding) Vital Signs Date Test Result Details :07 Systolic blood pressure 101 mm[Hg] Status: Comments: Location: RUE; Position: Sitting Diastolic blood pressure 71 mm[Hg] Status: Comments: Location: RUE; Position: Sitting Body height 64 in Status: Weight 136.5 lb Status: Body mass index (BMI) [Ratio] 23.43 kg/m2 Status: Body surface area Derived from formula 1.66 m2 Status: Body temperature 98.1 f Status: Comments: [...] 65yrs) or more drinks in a day? Physical Findings 18 Status: Comments: PHQ-9 Adult [...] Position: Sitting Body height 64 in Status: Weight 138.125 lb Status: Body mass index (BMI) [Ratio] 23.71 kg/m2 Status: Body surface area Derived from formula 1.67 m2 Status: Body temperature 98.2 f Status: Comments: Method: Oral Heart Rate 91 /min Status: O2 SAT 98 % Status: Physical Findings 0 Status: Comments: Alcohol Screen - How many times in the past yr have you had 5 (for M) or 4 (for F) or 4 (for all > 65yrs) or more drinks in a day? Respiratory rate 18 /min Status: Comments: Quality: Normal Results Date Description Value Details :51 [O] Streptococcus Test Rapid (In Office) Group A Strep Screen Negative (Normal) Test Lot# [id number] (Normal) :52 [O] Flu Test (in Office ) Flu A Positive Flu B Negative (Normal) Test Lot# [id number] (Normal) :52 [O] Urine Dipstick (In Office) [...] 0.0 {x10E3/uL} Range: 0.0-0.1 [facility] Hematology Comments: : [QLH] LD LDH 320 {IU/L} (Above high threshold) Range: 119-226 : [QLH] FERRITIN Ferritin, Serum 2721 ng/mL (Above high threshold) Range: 15-150 Comments: Results confirmed ondilution. [QLH] RETICULOCYTE COUNT Reticulocyte Count 5.2 % (Above high threshold) Range: 0.6-2.6 : [L] Request Problem Request Problem REJ5 Comments: The specimen submitted does not meet the laboratory's criteria foracceptability. Refer to [facility]'s Directory of Services for specimenacceptability criteria.No anaerobic transport device received. TEST: [id number] C difficile Toxigenic Zeleszk6511/29/2019[facility] :00 [LH] Protein Total Urine Random Protein,Total,Urine 21.3 mg/dL Range: Not Estab. : [QLH] CREATININE, RANDOM URINE Creatinine, Urine 59.5 mg/dL Range: Not Estab. [L] Vitamin D, 25-Hydroxy, Total - Esoterix Vitamin D, 25-Hydroxy, Serum 42 ng/mL Comments: Reference Range:All Ages: Target levels 30 - 100 Plan of Care Name Dates Details Planned Observations Planned Goals not documented Planned Encounters Appointment; NATI MOBLEY M.D. On: 30-Dec-2019 15:20 [...] not documented On: 11-Jan-2018 8:30 Appointment; DAMARI CABRERA, PEGGY Encounter Diagnosis: Problem not documented On: 11-Jan-2018 9:00 Appointment; DAMARI CABRERA APRN Encounter Diagnosis: Problem not documented On: 09-Feb-2018 13:00 Appointment; SANDY CLEMENTE M.D. Encounter Diagnosis: Problem not documented On: 21-Feb-2018 15:00 Appointment; DAGOBERTO BORRERO M.D. Encounter Diagnosis: Problem not documented On: 12-Mar-2018 13:00 Appointment; KELSEY WOGN M.D. Encounter Diagnosis: Problem not documented On: 12-Mar-2018 14:00 Appointment; DAGOBERTO BORRERO M.D. Encounter Diagnosis: Problem not documented On: 14-Mar-2018 8:20 Appointment; DAGOBERTO BORRERO M.D. Encounter Diagnosis: Problem not documented On: 16-Mar-2018 9:00 Appointment; DAGOBERTO BORRERO M.D. Encounter Diagnosis: Problem not documented On: 09-Apr-2018 10:40 Appointment; KELESY WONG M.D. Encounter Diagnosis: Problem not documented [...]
--- OUTSIDE RECORDS SUMMARY | 2019-12-31 13:17 | XMS REPORT | Summary of Care ---
Author Author TAVON Bauer, JEANNIE Organization Unknown Address Unknown Phone Unavailable Care Team Providers Care Office Clerk Assistant Name Role Phone BILL Bauer, EDWARD Unavailable Unavailable TAVON Bauer, JEANNIE Unavailable Unavailable BARB Bauer, JODYROSYNI Unavailable Unavailable ADAIR Bauer, DAGOBERTO Unavailable Unavailable ADAIR MEEKS [place], DAGOBERTO M Unavailable Unavailable [facility] DAMARI GALLO Unavailable Unavailable Barb MEEKS, Nati Unavailable Unavailable MARVIN MEEKS [place], KELSEY Unavailable Unavailable BILL MEEKS [place], EDWARD Unavailable Unavailable Tavon MEEKS, Jeannie Unavailable [...] qhs * Quantity: 30 Refills: 3 TAVON M.Tavon, JEANNIE * Start : 11-Dec-2019 Active Allergies [...] Varivax 1350 PFU/0.5ML Subcutaneous Injectable Lot #: [id number] on: 02-Jun-2009 Meningo (Menactra) on: 02-Jun-2009 Tdap [...] smoker Vital Signs Date Test Result Details [id number] BP Systolic 101 mm[Hg] Status: Comments: Location: RUE; Position: Sitting BP Diastolic 71 mm[Hg] Status: Comments: Location: RUE; Position: Sitting Height 64 in Status: Weight 136.5 lb Status: Body Mass Index Calculated 23.43 kg/m2 Status: Body Surface Area Calculated 1.66 m2 Status: Temperature 98.1 f Status: Comments: [...] Status: Comments: PHQ-9 Adult Depression Screening :56 BP Systolic 101 mm[Hg] Status: Comments: Location: LUE; Position: Sitting BP Diastolic 67 mm[Hg] Status: Comments: Location: E; Position: Sitting Temperature 98.4 f Status: Comments: Method: Oral Heart Rate 94 /min Status: Comments: Location: L Brachial Artery; O2 SAT 100 % Status: Comments: Source: RA Respiration Rate 18 /min Status: Comments: Quality: Normal Physical Findings 3 Status: Comments: Pain Scale :28 BP Systolic 105 mm[Hg] Status: Comments: Location: RUE; Position: Sitting BP Diastolic 70 mm[Hg] Status: Comments: Location: [facility]; Position: Sitting Height 64 in Status: Weight [...] 65yrs) or more drinks in a day? Respiration Rate 18 /min Status: Comments: Quality: Normal Results Date Description Value Details :51 [O] Streptococcus Test Rapid (In Office) Group A Strep Screen Negative (Normal) Test Lot# [id number] (Normal) :52 [O] Flu Test (in Office ) Flu A Positive Flu B Negative (Normal) Test Lot# [id number] (Normal) :52 [O] Urine Dipstick (In Office) [...] specimenacceptability criteria.No anaerobic transport device received. TEST: [id number] C difficile Toxigenic Dvklktg4011/29/2019[facility] : [LH] Protein Total Urine Random Protein,Total,Urine 21.3 mg/dL Range: Not Estab. [QLH] CREATININE, RANDOM URINE Creatinine, Urine 59.5 mg/dL Range: Not Estab. : [L] Vitamin D, 25-Hydroxy, Total - Esoterix Vitamin D, 25-Hydroxy, Serum 42 ng/mL Comments: Reference Range:All Ages: Target levels 30 - 100 Plan of Care Name Dates Details Planned Observations Planned Goals not documented Planned Encounters Appointment; NATI MOBLEY M.D. On: 30-Dec-2019 15:20 Appointment; EEG, ADULTCLINIC On: 24-Jan-2020 8:00 Appointment; EDWARD KHAN M.D. On: 24-Jan-2020 9:30 Interventions Provided Medication Changes* Mirtazapine 15 MG Oral Tablet - Start Plan* Discussed diagnosis, differential diagnosis, co morbidities, bio psychosocial factors, predisposing, precipitating and maintaining symptoms # dc Zoloft 25mg po qd for PTSD, depression, anxiety. Patient does not feel helpful and unwilling to titrate. * # start Mirtazapine 15mg po qhs for depression. Reviewed risks and benefits. * # continue xanax 1mg po qd for anxiety * # patient would highly benefit from TF-CBT, but unable to do so at this time. Patient unwilling to seek therapist in [place] and wishes to wait until she can relocate to [place]. * # encourage mindfulness, relaxation techniques * # contact clinic with concerns or questions * # go to nearest ED or call 911 in the event of an emergency or feel danger to self or others * # f/u in clinic in 1-2 weeks or sooner as needed. Discussion/Summary* Discussed the following with patient/family/other who verbally acknowledged and agrees to comply. Safety issues, Patient understands and will comply. Bio-psychosocial factors. Co-Morbidities. Differential diagnosis. Emergency treatment. Maintaining symptoms. Predisposing symptoms. Precipating symptoms. Safety plan. Alternative medication(s). Current medication(s). Risks/benefits. Side effects. Target symptoms. Treatment plan. Diagnosis. Instructions Name Dates Details Instructions not documented Encounters Appointment; NATI MOBLEY M.D. Encounter Diagnosis: Problem not documented On: 18-Dec-2017 15:20 Appointment; DAMARI CABRERA APRN Encounter Diagnosis: Problem not documented On: 26-Dec-2017 10:00 Appointment; NATI MOBLEY M.D. Encounter Diagnosis: Problem not documented On: 08-Jan-2018 15:00 Appointment; KELSEY WONG M.D. Encounter Diagnosis: Problem not documented On: 11-Jan-2018 8:30 Appointment; ADMARI CABRERA APRN Encounter Diagnosis: Problem not documented [...]
[2019-12-31] MEDS ORDERED: MORPHINE SULFATE 2 MG/ML SYR 1ML IV STA (13:18)
[2019-12-31] MEDS ORDERED: ONDANSETRON HCL INJ 2MG/ML 2ML 2 MG/ML VIAL IV STA (13:18)
--- OUTSIDE RECORDS SUMMARY | 2019-12-31 13:18 | XMS REPORT | Summary of Care ---
Author Author Chelsey MECHANICAL TECHNICIAN, Domitila [facility] Unknown Address Unknown Phone Unavailable Care Team Providers Care Mri Technologist Name Role Phone BILL Bauer, EDWARD Unavailable Unavailable TAVON Bauer, JEANNIE Unavailable Unavailable BARB Bauer, JODYROSYNMorena Unavailable Unavailable ADAIR Bauer, DAGOBERTO Unavailable Unavailable ADAIR MEEKS [place], DAGOBERTO M Unavailable Unavailable [facility] DAMARI HOLDER Unavailable Unavailable Barb MEEKS, Nati Unavailable Unavailable MARVIN MEEKS [place], KELSEY Unavailable Unavailable BILL MEEKS [place], EDWARD Unavailable Unavailable Tavon MEEKS, Jeannie Unavailable [...] DAYS. * Quantity: 1 Refills: 0 KAAYSEI M.Avtar., DAGOBERTO * Start : 28-Nov-2019 Active 6 [...] qhs * Quantity: 30 Refills: 3 TAVON M.D., JEANNIE * Start : 11-Dec-2019 Active IBU 800 MG Oral Tablet TAKE 1 TABLET EVERY 6 TO 8 HOURS NEEDED. * Quantity: 60 Refills: 0 APOSTOLIDOU M.Tavon, EFFROSYNI * Start : 16-Dec-2019 Active Allergies and Adverse Reactions Name Dates [...] Varivax 1350 PFU/0.5ML Subcutaneous Injectable Lot #: [id number] on: 02-Jun-2009 Meningo (Menactra) on: 02-Jun-2009 Tdap [...] A Strep Screen Negative (Normal) Test Lot# [id number] (Normal) :52 [O] Flu Test (in Office ) Flu A Positive Flu B Negative (Normal) Test Lot# [id number] (Normal) :52 [O] Urine Dipstick (In Office) [...] 320 {IU/L} (Above high threshold) Range: 119-226 [QLH] FERRITIN Ferritin, Serum 2721 ng/mL (Above high threshold) Range: 15-150 Comments: Results confirmed ondilution. : [QLH] RETICULOCYTE COUNT Reticulocyte Count 5.2 % (Above high threshold) Range: 0.6-2.6 :00 [L] Request Problem Request Problem REJ5 Comments: The specimen submitted does not meet the laboratory's criteria foracceptability. Refer to [facility]'s Directory of Services for specimenacceptability criteria.No anaerobic transport device received. TEST: [id number] C difficile Toxigenic Kgwhbsg4011/29/2019[facility] :00 [LH] Protein Total Urine Random [...] NATI MOBLEY M.D. On: 30-Dec-2019 15:20 Appointment; CUATE JIMENEZ On: 24-Jan-2020 8:00 Appointment; EDWARD KHAN M.D. On: 24-Jan-2020 9:30 Appointment; NATI MOBLEY M.D. On: 17-Feb-2020 14:00 Interventions Provided Medication Changes* HYDROmorphone HCl - 2 MG Oral Tablet - Renew * IBU 800 MG Oral Tablet - Start Instructions Name Dates Details Instructions not documented [...]
--- OUTSIDE RECORDS SUMMARY | 2019-12-31 13:18 | XMS REPORT | Summary of Care ---
Author Author Iwona Uribe, Sigrid Organization Unknown Address Unknown Phone Unavailable Care Team Providers Care Sieve Maker Name Role Phone BILL Bauer, EDWARD Unavailable Unavailable TAVON Bauer, JEANNIE Unavailable Unavailable BARB Bauer, JODYROSYNI Unavailable Unavailable ADAIR Bauer, DAGOBERTO Unavailable Unavailable Iwona Uribe, Adolphus Unavailable Unavailable ADAIR MEEKS [place], DAGOBERTO Higgins Unavailable Unavailable [facility] DAMARI HOLDER Unavailable Unavailable Barb MEEKS, Effrosyni Unavailable Unavailable MARVIN MEEKS [place], KAIRAV Unavailable Unavailable BILL MEEKS [place], EDWARD Unavailable Unavailable Tavon MEEKS, Jeannie Unavailable [...] PRN nausea * Quantity: 30 Refills: 3 CARRIE MOBLEY M.D. * Start : 06-Mar-2017 Active Polyethylene Glycol [...] DAILY. * Quantity: 10 Refills: 0 ADAIR WootenTavon, DAGOBERTO * Start : 28-Nov-2019 Active Azithromycin [...] M.DLucian, JEANNIE * Start : 11-Dec-2019 Active IBU [...] Varivax 1350 PFU/0.5ML Subcutaneous Injectable Lot #: [id number] on: 02-Jun-2009 Meningo (Menactra) on: 02-Jun-2009 Tdap [...] Comments: Location: RUE; Position: Sitting Physical Findings 18 Status: Comments: PHQ-9 Adult Depression Screening Body height 64 in Status: Body temperature [...] area Derived from formula 1.66 m2 Status: :56 Systolic blood pressure 101 mm[Hg] Status: [...] rate 18 /min Status: Comments: Quality: Normal :25 Physical Findings 14 Status: Comments: PHQ-9 Adult Depression Screening Results Date Description Value Details :51 [O] Streptococcus Test Rapid (In Office) Group A Strep Screen Negative (Normal) Test Lot# [id number] (Normal) :52 [O] Flu Test (in Office ) Flu A Positive Flu B Negative (Normal) Test Lot# [id number] (Normal) :52 [O] Urine Dipstick (In Office) [...] specimenacceptability criteria.No anaerobic transport device received. TEST: [id number] C difficile Toxigenic Lswrnmj2711/29/2019[facility] :00 [LH] Protein Total Urine Random Protein,Total,Urine [...] DE OCA M.D. On: 26-Dec-2019 14:00 Appointment; CARRIE MOBLEY M.D. On: 30-Dec-2019 15:20 Appointment; EEG, ADULTCLINIC On: 24-Jan-2020 8:00 Appointment; EDWARD KHAN M.D. On: 24-Jan-2020 9:30 Appointment; CARRIE MOBLEY M.D. On: 17-Feb-2020 14:00 Interventions Provided Discussion/Summary* Guideline Used: * Other: No guideline * Sickle Cell * [phone] Mike Badillo RN from [facility] called to get in contact with pt to decrease Ed visit and hospitalization. Requesting that pt be given her information. Task sent to [facility] Clinical Team * Intended Caller Action: * Other: medical call back Instructions Name Dates Details Instructions not documented [...] Problem not documented On: 11-Dec-2019 11:30 Appointment; CARRIE MOBLEY M.D. Encounter Diagnosis: Problem not documented On: 16-Dec-2019 14:00
--- OUTSIDE RECORDS SUMMARY | 2019-12-31 13:18 | XMS REPORT | Summary of Care ---
Author Author Tolu Mays Unknown Address Unknown Phone Unavailable Care Team Providers Care Brake Repair Mechanic Name Role Phone BILL Bauer, EDWARD Unavailable Unavailable TAVON Bauer, JEANNIE Unavailable Unavailable BARB Bauer, EFFROSYNI Unavailable Unavailable ADAIR Bauer, DAGOBERTO Unavailable Unavailable ADAIR MEEKS [place], DAGOBERTO M Unavailable Unavailable [facility] DAMARI HOLDER Unavailable Unavailable Barb MEEKS, Nati Unavailable Unavailable MARVIN MEEKS [place], KELSEY Unavailable Unavailable BILL MEEKS [place], EDWARD Unavailable Unavailable Tavon MEEKS, Jeannie Unavailable [...] * Quantity: 30 Refills: 6 JODY MOBLEY M.D.ROSYNI * Start : 27-Nov-2017 Active ALPRAZolam 1 [...] Varivax 1350 PFU/0.5ML Subcutaneous Injectable Lot #: [id number] on: 02-Jun-2009 Meningo (Menactra) on: 02-Jun-2009 Tdap [...] A Strep Screen Negative (Normal) Test Lot# [id number] (Normal) :52 [O] Flu Test (in Office ) Flu A Positive Flu B Negative (Normal) Test Lot# [id number] (Normal) :52 [O] Urine Dipstick (In Office) [...] specimenacceptability criteria.No anaerobic transport device received. TEST: [id number] C difficile Toxigenic Ymnmjmg2011/29/2019[facility] :00 [LH] Protein Total Urine Random Protein,Total,Urine [...] Appointment; NATI MOBLEY M.D. On: 17-Feb-2020 14:00 Instructions Name Dates Details Instructions not documented Encounters Appointment; DAMARI CABRERA APRN Encounter Diagnosis: Problem [...]
--- OUTSIDE RECORDS SUMMARY | 2019-12-31 13:18 | XMS REPORT | Summary of Care ---
Author Author Tolu Mays Organization Unknown Address Unknown Phone Unavailable Care Team Providers Care Turbine Technician Name Role Phone BILL Bauer, EDWARD Unavailable Unavailable TAVON Bauer, JEANNIE Unavailable Unavailable BARB Bauer, JODYROSYNI Unavailable Unavailable ADAIR Bauer, DAGOBEROT Unavailable Unavailable Tolu Mays Unavailable Unavailable ADAIR MEEKS [place], DAGOBERTO M Unavailable Unavailable [facility] DAMRAI HOLDER Unavailable Unavailable Barb MEEKS, Dequanynelisa Unavailable Unavailable MARVIN MEEKS [place], KELSEY Unavailable Unavailable BILL MEEKS [place], EDWARD [...] * Quantity: 30 Refills: 3 JODY MOBLEY M.D.ROSYNElisa * Start : 06-Mar-2017 Active Polyethylene Glycol 3350 Oral Packet MIX 1 PACKET IN 8 OUNCES OF LIQUID AND DRINK ONCE DAILY. * Quantity: 30 Refills: 6 JODY MOBLEY M.D.ROSYNI * Start : 27-Nov-2017 Active ALPRAZolam 1 MG Oral Tablet Take 1 tab daily as needed for anxiety * Quantity: 30 Refills: 0 DEQUAN MOBLEY M.D.YNElisa * Start : 29-Oct-2019 Active traZODone HCl [...] * Quantity: 90 Refills: 0 JODY MOBLEY M.D.ROSYNElisa * Start : 19-Oct-2018 Active HYDROcodone-Acetaminophen 10-325 MG Oral Tablet TAKE 1 TABLET EVERY 4 TO 6 HOURS NEEDED FOR PAIN. * Quantity: 90 Refills: 0 JODY MOBLEY M.D.ROSYNElisa * Start : 24-Dec-2018 Active Endari 5 [...] NEEDED. * Quantity: 60 Refills: 0 APOSTOLIDOU M.DLucian, EFFROSYNI * Start : 16-Dec-2019 Active Allergies [...] Varivax 1350 PFU/0.5ML Subcutaneous Injectable Lot #: [id number] on: 02-Jun-2009 Meningo (Menactra) on: 02-Jun-2009 Tdap [...] A Strep Screen Negative (Normal) Test Lot# [id number] (Normal) :52 [O] Flu Test (in Office ) Flu A Positive Flu B Negative (Normal) Test Lot# [id number] (Normal) :52 [O] Urine Dipstick (In Office) [...] specimenacceptability criteria.No anaerobic transport device received. TEST: [id number] C difficile Toxigenic Ckubrhy0611/29/2019[facility] :00 [LH] Protein Total Urine Random [...] Appointment; CARRIE MOBLEY M.D. On: 17-Feb-2020 14:00 Instructions Name [...]
--- OUTSIDE RECORDS SUMMARY | 2019-12-31 13:19 | XMS REPORT | Summary of Care ---
Author Author BARB Bauer, NATI Organization Unknown Address Unknown Phone Unavailable Care Team Providers Care Inseam Trimmer Name Role Phone BILL Bauer, EDWARD Unavailable Unavailable TAVON Bauer, JEANNIE Unavailable Unavailable BARB Bauer, EFFROSYNI Unavailable Unavailable ADAIR Bauer, DAGOBERTO Unavailable Unavailable ADAIR MEEKS [place], DAGOBERTO M Unavailable Unavailable [facility] DAMARI HOLDER Unavailable Unavailable Barb MEEKS, Nati Unavailable Unavailable MARVIN MEEKS [place], KELSEY Unavailable Unavailable BILL MEEKS [place], EDWARD Unavailable Unavailable Tavon MEEKS, Jeannie Unavailable [...] Active Common cold (460, J00) Status: Active Diarrhea, unspecified type (787.91, R19.7) Status: Active Influenza A (487.1, J10.1) Status: Active Upper respiratory tract infection (465.9, J06.9) Status: Active Iron overload (275.09, E83.19) Status: Active Diarrhea, unspecified type (787.91, R19.7) Status: Active Major depressive disorder, recurrent episode, severe with anxious distress (296.33, F33.2) Status: Active PTSD (post-traumatic stress disorder) (309.81, F43.10) Status: Active Sickle cell anemia with pain (282.62, D57.00) Status: Active Medications Name Dates Details Folic [...] 4 DAYS. * Quantity: 1 Refills: 0 KAMEKA M.D., [...] NEEDED. * Quantity: 60 Refills: 0 APOSTOLIDOU M.D., EFFROSYNI * Start : 16-Dec-2019 Active Allergies [...] CULTURE, CLOSTRIDIUM DIFFICILE W/REFL TOXIN Date: 28-Nov-2019 [QLH] CBC (INCLUDES DIFF/PLT) Date: 30-Dec-2019 [QLH] FERRITIN Date: 30-Dec-2019 Immunization Name Dates Details Gardasil 9 Intramuscular [...] Varivax 1350 PFU/0.5ML Subcutaneous Injectable Lot #: [id number] on: 02-Jun-2009 Tdap (Adacel) on: 02-Jun-2009 Meningo [...] (finding) Vital Signs Date Test Result Details :50 Systolic blood pressure 118 mm[Hg] Status: Comments: Location: LUE; Position: Sitting Diastolic blood pressure 74 mm[Hg] Status: Comments: Location: LUE; Position: Sitting Body height 64 in Status: Weight 145.375 lb Status: Body mass index (BMI) [Ratio] 24.95 kg/m2 Status: Body surface area Derived from formula 1.71 m2 Status: Body temperature 98.4 f Status: Comments: Method: Oral Heart Rate 95 /min Status: Comments: Location: L Brachial Artery; Quality: Normal Respiratory rate 18 /min Status: Comments: Quality: Normal O2 SAT 100 % Status: :33 Body height 64 in Status: Body [...] % Status: Comments: Source: RA Physical Findings 18 Status: Comments: PHQ-9 Adult Depression Screening Physical Findings 0 Status: Comments: Alcohol Screen - How many times in the past yr have you had 5 (for M) or 4 (for F) or 4 (for all > 65yrs) or more drinks in a day? [id number] Physical Findings 14 Status: Comments: PHQ-9 Adult Depression Screening Results Date Description Value Details :00 [LH] Protein Total Urine Random Protein,Total,Urine [...] Appointment; JEANNIE MONTES DE OCA M.D. On: 02-Jan-2020 14:00 Appointment; BARBARA, ADULTCLLORI On: 24-Jan-2020 8:00 Appointment; EDWARD KHAN M.D. On: 24-Jan-2020 9:30 Appointment; NATI MOBLEY M.D. On: 17-Feb-2020 14:00 Interventions Provided Labs/Procedures/Imaging* [QLH] CBC (INCLUDES DIFF/PLT); To Be Done: 30 Dec 2019 * [QLH] FERRITIN; To Be Done: 30 Dec 2019 Medications/Immunizations Administered* Sodium Chloride 0.9 % Intravenous Solution Instructions [...] Diagnosis: Problem not documented On: 16-Dec-2019 14:00 Appointment; JEANNIE MONTES DE OCA M.D. Encounter Diagnosis: Problem not documented On: 19-Dec-2019 13:00 Appointment; JEANNIE MONTES DE OCA M.D. Encounter Diagnosis: Problem not documented On: 26-Dec-2019 14:00 Appointment; NATI MOBLEY M.D. Encounter Diagnosis: Problem not documented On: 30-Dec-2019 15:20
--- OUTSIDE RECORDS SUMMARY | 2019-12-31 13:19 | XMS REPORT | Summary of Care ---
Author Author Tolu Mays Unknown Address Unknown Phone Unavailable Care Team Providers Care Knowledge Analyst Name Role Phone BILL Bauer, EDWARD Unavailable Unavailable TAVON Bauer, JEANNIE Unavailable Unavailable BARB Bauer, EFFROSYNI Unavailable Unavailable ADAIR Bauer, DAGOBERTO Unavailable Unavailable ADAIR MEEKS [place], DAGOBERTO M Unavailable Unavailable [facility] DAMARI HOLDER Unavailable Unavailable Barb MEEKS, Nati Unavailable Unavailable MARVIN MEEKS [place], KELSEY Unavailable Unavailable BILL MEEKS [place], EDWARD Unavailable Unavailable Tavon MEEKS, Jeannie Unavailable [...] MOBLEY M.D.ROSYNMorena * Start : 06-Mar-2017 Active ALPRAZolam 1 MG Oral Tablet Take 1 tab daily as needed for anxiety * Quantity: 30 Refills: 0 JODY MOBLEY M.D.ROSRIAZ * Start : 29-Oct-2019 Active Polyethylene Glycol 3350 Oral Packet MIX 1 PACKET IN 8 OUNCES OF LIQUID AND DRINK ONCE DAILY. * Quantity: 30 Refills: 6 NATI MOBLEY M.D. * Start : 27-Nov-2017 Active traZODone HCl - 50 MG Oral Tablet TAKE 1 TABLET AT BEDTIME. * Quantity: 30 Refills: 1 NATI MOBLEY M.D. * Start : 16-Jul-2018 Active Deferasirox 360 MG Oral Tablet TAKE 2 TABLET DAILY * Quantity: 60 Refills: 5 DAGOBERTO BORRERO M.D. * Start : 25-Jul-2018 Active Endari 5 GM Oral Packet Take 10 grams every 12 hours * Quantity: 120 Refills: 2 DAGOBERTO BORRERO M.D. * Start : 24-Dec-2018 Active Morphine Sulfate 30 MG Oral Tablet take 30 mg IR every 4-6 hours as needed for pain * Quantity: 90 Refills: 0 NATI MOBLEY M.D. * Start : 19-Oct-2018 Active HYDROcodone-Acetaminophen 10-325 MG Oral Tablet TAKE 1 TABLET EVERY 4 TO 6 HOURS NEEDED FOR PAIN. * Quantity: 90 Refills: 0 NATI MOBLEY M.D. * Start : 24-Dec-2018 Active levETIRAcetam 750 MG Oral Tablet TAKE [...] 4 DAYS. * Quantity: 1 Refills: 0 DAGOBERTO BORRERO M.D. * Start : 28-Nov-2019 Active 6 Tablet Pack RA Cetirizine 10 MG Oral Tablet TAKE 1 TABLET DAILY NEEDED. * Quantity: 30 Refills: 0 ADAIR Bauer, DAGOBERTO * Start : 28-Nov-2019 Active Fluticasone Propionate 50 MCG/ACT Nasal Suspension INSTILL 2 SPRAY Daily PRN nasal congestion * Quantity: 1 Refills: 0 ADAIR Bauer, DAGOBERTO * Start : 28-Nov-2019 Active 9.9 ML Bottle Mirtazapine 15 MG Oral Tablet Take (1) tablet po qhs * Quantity: 30 Refills: 3 TAVON Bauer JEANNIE * Start : 11-Dec-2019 Active HYDROmorphone HCl - 2 MG Oral Tablet Take 1 tb every 4-6 hours as needed for breakthrough pain (ie > 7/10) * Quantity: 90 Refills: 0 APOSTOLIDKEEGAN Bauer, EFFROSYNI * Start : 29-Apr-2019 Active IBU 800 MG Oral Tablet TAKE 1 TABLET EVERY 6 TO 8 HOURS NEEDED. * Quantity: 60 Refills: 0 KAYLINSTOLIDKEEGAN Bauer, EFFROSYNI * Start : 16-Dec-2019 Active Allergies [...] Varivax 1350 PFU/0.5ML Subcutaneous Injectable Lot #: [id number] on: 02-Jun-2009 Meningo (Menactra) on: 02-Jun-2009 Tdap [...] A Strep Screen Negative (Normal) Test Lot# [id number] (Normal) :52 [O] Flu Test (in Office ) Flu A Positive Flu B Negative (Normal) Test Lot# [id number] (Normal) :52 [O] Urine Dipstick (In Office) [...] specimenacceptability criteria.No anaerobic transport device received. TEST: [id number] C difficile Toxigenic Acfktxt8911/29/2019[facility] :00 [LH] Protein Total Urine Random [...]
--- OUTSIDE RECORDS SUMMARY | 2019-12-31 13:19 | XMS REPORT | Summary of Care ---
Author Author Tolu Mays Unknown Address Unknown Phone Unavailable Care Team Providers Care Laundry Supervisor Name Role Phone BILL Bauer, EDWARD Unavailable Unavailable TAVON Bauer, JEANNIE Unavailable Unavailable BARB Bauer, EFFROSYNI Unavailable Unavailable ADAIR Bauer, DAGOBERTO Unavailable Unavailable ADAIR MEEKS [place], DAGOBERTO M Unavailable Unavailable [facility] DAMARI HOLDER Unavailable Unavailable Barb MEEKS, Nati Unavailable Unavailable MARVIN MEEKS [place], KELSEY Unavailable Unavailable BILL MEEKS [place], EDWARD Unavailable Unavailable Tavon MEEKS, Jeannie Unavailable [...] Varivax 1350 PFU/0.5ML Subcutaneous Injectable Lot #: [id number] on: 02-Jun-2009 Meningo (Menactra) on: 02-Jun-2009 Tdap [...] A Strep Screen Negative (Normal) Test Lot# [id number] (Normal) :52 [O] Flu Test (in Office ) Flu A Positive Flu B Negative (Normal) Test Lot# [id number] (Normal) :52 [O] Urine Dipstick (In Office) [...] specimenacceptability criteria.No anaerobic transport device received. TEST: [id number] C difficile Toxigenic Ctpgtip8311/29/2019[facility] :00 [LH] Protein Total Urine Random Protein,Total,Urine [...] not documented On: 21-Feb-2018 15:00 Appointment; DAGOBERTO BORERRO M.D. Encounter Diagnosis: Problem not documented On: [...] Problem not documented On: 29-Apr-2019 14:40 Appointment; DAGBOERTO BORRERO M.D. Encounter Diagnosis: Problem not documented [...]
--- OUTSIDE RECORDS SUMMARY | 2019-12-31 13:19 | XMS REPORT | Summary of Care ---
Author Author Nurys Galicia Sudhir Unknown Address Unknown Phone Unavailable Care Team Providers Care Scientific Writer Name Role Phone BILL Bauer, EDWARD Unavailable Unavailable TAVON Bauer, JEANNIE Unavailable Unavailable BARB Bauer, JODYROSYNI Unavailable Unavailable ADAIR Bauer, DAGOBERTO Unavailable Unavailable ADAIR MEEKS [place], DAGOBERTO M Unavailable Unavailable [facility] DAMARI HOLDER Unavailable Unavailable Barb MEEKS, Nati Unavailable Unavailable MARVIN EMEKS [place], KELSEY Unavailable Unavailable BILL MEEKS [place], EDWARD Unavailable Unavailable Tavon MEEKS, Jeannie Unavailable [...] TWICE DAILY. * Quantity: 10 Refills: 0 DAGOBEROT BORRERO M.D. * Start : 28-Nov-2019 Active [...] Varivax 1350 PFU/0.5ML Subcutaneous Injectable Lot #: [id number] on: 02-Jun-2009 Tdap (Adacel) on: 02-Jun-2009 Meningo [...] 65yrs) or more drinks in a day? [id number] Physical Findings 14 Status: Comments: PHQ-9 Adult [...] DE OCA M.D. On: 02-Jan-2020 14:00 Appointment; CUATE JIMENEZ On: 24-Jan-2020 8:00 Appointment; EDWARD KHAN M.D. On: 24-Jan-2020 9:30 Appointment; NATI MOBLEY M.D. On: 17-Feb-2020 14:00 Interventions Provided Follow-ups/Referrals* MLP Referral; To Be Done: 30 Dec 2019 Instructions Name Dates Details Instructions not [...]
--- OUTSIDE RECORDS SUMMARY | 2019-12-31 13:20 | XMS REPORT | Summary of Care ---
Author Author Jayme Uribe, Sanna Peguero Unknown Address Unknown Phone Unavailable Care Team Providers Care Pastor Name Role Phone BILL Bauer, EDWARD Unavailable Unavailable TAVON Bauer, JEANNIE Unavailable Unavailable BARB Bauer, JODYROSYNI Unavailable Unavailable ADAIR Bauer, DAGOBERTO Unavailable Unavailable ADAIR MEEKS [place], DAGOBERTO M Unavailable Unavailable DE[facility]AH [facility] DAMARI HOLDER Unavailable Unavailable Barb MEEKS, Nati Unavailable Unavailable MARVIN MEEKS [place], KELSEY Unavailable Unavailable BILL MEEKS [place], EDWARD Unavailable Unavailable Tavon MEEKS, Jeannie Unavailable [...] 1 TABLET DAILY DIRECTED. Quantity: 60 APOSTSARY Higgins.DLucian, EFFROSYNI Active Ondansetron HCl - 4 MG [...] qhs * Quantity: 30 Refills: 3 TAVON M.Avtar., JEANNIE * Start : 11-Dec-2019 Active IBU [...] Varivax 1350 PFU/0.5ML Subcutaneous Injectable Lot #: [id number] on: 02-Jun-2009 Tdap (Adacel) on: 02-Jun-2009 Meningo [...] 65yrs) or more drinks in a day? [id number] Physical Findings 14 Status: Comments: PHQ-9 Adult [...] DE OCA M.D. On: 02-Jan-2020 14:00 Appointment; EDILSON JIMENEZCLLORI On: 24-Jan-2020 8:00 Appointment; EDWARD KHAN M.D. On: 24-Jan-2020 9:30 Appointment; NATI MOBLEY M.D. On: 03-Feb-2020 15:40 Appointment; NATI MOBLEY M.D. On: 17-Feb-2020 14:00 [...] Problem not documented On: 12-Mar-2018 14:00 Appointment; DAGOEBRTO BORRERO M.D. Encounter Diagnosis: Problem not documented [...]
--- OUTSIDE RECORDS SUMMARY | 2019-12-31 13:20 | XMS REPORT | Summary of Care ---
Author Author BARB Bauer, NATI Organization Unknown Address Unknown Phone Unavailable Care Team Providers Care Taxi Servicer Name Role Phone BILL Bauer, EDWARD Unavailable Unavailable TAVON Bauer, JEANNIE Unavailable Unavailable BARB Bauer, EFFROSYNI Unavailable Unavailable ADAIR Bauer, DAGOBERTO Unavailable Unavailable ADAIR MEEKS [place], DAGOBERTO M Unavailable Unavailable DE[facility]AH [facility] DAMARI HOLDER Unavailable Unavailable Barb MEEKS, Nati Unavailable Unavailable MARVIN MEEKS [place], KELSEY Unavailable Unavailable BILL MEEKS [place], EDWARD Unavailable Unavailable Tavon MEEKS, Jeannie Unavailable [...] 0 JODY MOBLEY M.D.ROSYNI * Start : 11-Jan-2020 Active HYDROcodone-Acetaminophen 10-325 MG Oral Tablet TAKE 1 TABLET EVERY 4 TO 6 HOURS NEEDED FOR PAIN. * Quantity: 90 Refills: 0 JODY MOBLEY M.D.ROSYNMorena * Start : 11-Jan-2020 Active Endari 5 GM Oral Packet Take [...] Varivax 1350 PFU/0.5ML Subcutaneous Injectable Lot #: [id number] on: 02-Jun-2009 Tdap (Adacel) on: 02-Jun-2009 Meningo [...] 65yrs) or more drinks in a day? [id number] Physical Findings 14 Status: Comments: PHQ-9 Adult Depression Screening Results Date Description Value Details 28-Nov-20190:00 [L] Vitamin D, 25-Hydroxy, Total - Esoterix Vitamin D, 25-Hydroxy, Serum 42 ng/mL Comments: Reference Range:All Ages: Target levels 30 - 100 Plan of Care Name Dates Details Planned Observations Planned Goals not documented Planned Encounters Appointment; JEANNIE MONTES DE OCA M.D. On: 02-Jan-2020 14:00 Appointment; EEG, ADULTCLINIC On: 24-Jan-2020 8:00 Appointment; EDWARD KHAN M.D. On: 24-Jan-2020 9:30 Appointment; NATI MOBLEY M.D. On: 03-Feb-2020 15:40 Appointment; NATI MOBLEY M.D. On: 17-Feb-2020 14:00 Planned Medications Morphine Sulfate 30 MG Oral Tablet take 30 mg IR every 4-6 hours as needed for pain Ordered: 11-Jan-2020 Active HYDROcodone-Acetaminophen 10-325 MG Oral Tablet TAKE 1 TABLET EVERY 4 TO 6 HOURS NEEDED FOR PAIN. Ordered: 11-Jan-2020 Active Interventions Provided Medication Changes* Folic Acid 1 MG Oral Tablet - Renew * HYDROmorphone HCl - 2 MG Oral Tablet - Renew * Polyethylene Glycol 3350 Oral Packet - Renew Labs/Procedures/Imaging* [QLH] CBC (INCLUDES DIFF/PLT); To Be Done: 30 Dec 2019 * [QLH] FERRITIN; To Be Done: 30 Dec 2019 Medications/Immunizations Administered* Sodium Chloride 0.9 % Intravenous Solution Plan* Sickle cell disease * -course significant in terms of VOC rate and chronicity , but she refused adamantly to take hydrea (she does not like 'how it interacts with the body') and also now has refused all other FDA approved medications including L- glutamine, voxeletor, crizanlizumab. She says she has done biochemistry and is in the process of submitting her own medication to the 'board of science'. Several discussions about the potential for improvement of symptoms while on hydrea have not been fruitful. Regarding exchange transfusion, again, she did not want to do it, but she 'may think about it in the future'. She moved to [place] to live with her mom a few months ago, still multiple life stressors, lack of a job (keeps losing her job) * She has seen Dr Montes De Oca and we have discussed that due to her multiple opioids and her forgetfulness we cannot prescribe xanax to her. * I once again explained the multifactorial [...] Problem not documented On: 15-Jun-2018 13:00 Appointment; DAGOBETRO DAVIS M.D. Encounter Diagnosis: Problem not documented [...]
[2019-12-31] MEDS ORDERED: SODIUM CHLORIDE 0.9% 1000ML 1,000 ML IV SCH (13:30)
[2019-12-31] MEDS ORDERED: MORPHINE SULFATE INJ 4 MG/ML INJ 1ML ONE (13:54)
[2019-12-31] MEDS ORDERED: SODIUM CHLORIDE 0.9% 1000ML 1,000 ML ONE (13:54)
[2019-12-31] MEDS ORDERED: ONDANSETRON HCL INJ 2MG/ML 2ML 2 MG/ML VIAL ONE (13:54)
--- NOTE | 2019-12-31 14:00 | NUR ---
PT TO BE TRANSFERRED TO [facility], PT AWARE OF POC, VITAL SIGNS STABLE, PT VOICES NO COMPLAINTS AT THIS TIME
--- NOTE | 2019-12-31 14:15 | NUR ---
[facility] CALLED FOR TRANSPORT 25MIN ETA
--- NOTE | 2019-12-31 14:48 | Diagnostic Imaging Report ---
EXAM: CXR 2 VIEW - HOPD DATE: 12/31/2019 12:00 AM INDICATION: Chest pain COMPARISON: 03/27/2019 FINDINGS: The trachea is midline. Imaging increased left basilar opacities noted suggestive of atelectasis. The lungs are otherwise symmetrically expanded without evidence for large focal consolidation, pneumothorax, or significant pleural effusion. The cardiomediastinal silhouette and pulmonary vasculature are within normal limits. No acute osseous abnormality is identified. Configuration of the vertebral bodies are consistent with sickle cell disease. IMPRESSION: No acute cardiopulmonary process identified. Osseous findings compatible with sickle cell disease. Signed by: Dr. Brandt Moody MD on 12/31/2019 2:46 PM
[2019-12-31 14:57] VITALS: BP 110/84
== END 2019-12-31 15:06 | disposition other institution (70) ==
LOC: FSED 13:01
DX: D57.819 Other sickle-cell disorders with crisis, unspecified (principal)
CPT/HCPCS: 71046; 80048; 80076; 81003; 81025; 83518; 83880; 84484; 87040; 87400; 93005; 99284; J2270; J2405; J7030

== ENCOUNTER 2020-01-09 12:13 | Inpatient (IN) | payer OTHER ==
[2020-01-09] VITALS: BP 117/56
[~2020-01-09] VITALS: Ht 162.6 cm; Wt 64.4 kg
--- OUTSIDE RECORDS SUMMARY | 2020-01-09 12:28 | XMS REPORT | Summary of Care ---
Author Author Nurys Galicia Organization Unknown Address Unknown Phone Unavailable Care Team Providers Care Commercial Helicopter Pilot Name Role Phone BILL Bauer, EDWARD Unavailable Unavailable Nurys Galicia Unavailable Unavailable TAVON Bauer, JEANNIE Unavailable Unavailable BARB Bauer, EFFROSYNI Unavailable Unavailable ADAIR Bauer, DAGOBERTO Unavailable Unavailable ADAIR MEEKS [place], DAGOBERTO M Unavailable Unavailable DEBORAH [facility] DAMARI HOLDER Unavailable Unavailable Barb MEEKS, Effrosyni Unavailable Unavailable MARVIN MEEKS [place], KELSEY Unavailable Unavailable BILL MEEKS [place], EDWARD Unavailable Unavailable Tavon MEEKS, Jeannie Unavailable [...] MOBLEY M.D.ROSYNMorena * Start : 11-Jan-2020 Active HYDROcodone-Acetaminophen 10-325 [...] DAYS. * Quantity: 1 Refills: 0 ADAIR Bauer, DAGOBERTO * Start : 28-Nov-2019 Active 6 Tablet Pack Fluticasone Propionate 50 MCG/ACT Nasal Suspension INSTILL 2 SPRAY Daily PRN nasal congestion * Quantity: 1 Refills: 0 ADAIR Bauer, DAGOBERTO * Start : 28-Nov-2019 Active 9.9 ML Bottle RA Cetirizine 10 MG Oral Tablet TAKE 1 TABLET DAILY NEEDED. * Quantity: 30 Refills: 0 KAMEKA Bauer, DAGOBERTO * Start : 28-Nov-2019 Active Mirtazapine 15 MG Oral Tablet Take (1) tablet po qhs * Quantity: 30 Refills: 3 TAVON Gisela.Tavon, JEANNIE * Start : 11-Dec-2019 Active IBU 800 MG Oral Tablet TAKE 1 TABLET EVERY 6 TO 8 HOURS NEEDED. * Quantity: 60 Refills: 0 APOSTOLIDOU Lizette, EFFROSYNI * Start : 16-Dec-2019 Active Allergies [...] Varivax 1350 PFU/0.5ML Subcutaneous Injectable Lot #: [id number] on: 02-Jun-2009 Meningo (Menactra) on: 02-Jun-2009 Tdap [...] (finding) Vital Signs Date Test Result Details :57 Physical Findings 0 Status: Comments: PHQ-9 Adult Depression Screening :50 Systolic blood pressure 118 mm[Hg] Status: [...] Depression Screening Body height 64 in Status: Weight 136.5 [...] 65yrs) or more drinks in a day? [id number] Physical Findings 14 Status: Comments: PHQ-9 Adult Depression Screening Results Date Description Value Details Results not documented Plan of Care Name Dates Details Planned Observations Planned Goals not documented Planned Encounters Appointment; JEANNIE MONTES DE OCA M.D. On: 02-Jan-2020 14:00 Appointment; CUATE JIMENEZ On: 24-Jan-2020 8:00 Appointment; EDWARD KHAN M.D. On: 24-Jan-2020 9:30 Appointment; CARRIE MOBLEY M.D. On: 03-Feb-2020 15:40 Appointment; CARRIE MOBLEY M.D. On: 17-Feb-2020 14:00 [...] Problem not documented On: 26-Dec-2019 14:00 Appointment; CARRIE MOBLEY M.D. Encounter Diagnosis: Problem not documented On: 30-Dec-2019 15:20
--- OUTSIDE RECORDS SUMMARY | 2020-01-09 12:29 | XMS REPORT | Summary of Care ---
Author Author Nurys Galicia Sudhir Unknown Address Unknown Phone Unavailable Care Team Providers Care Power Shear Operator Name Role Phone BILL Bauer, EDWARD Unavailable Unavailable DEBORAH WOODS, DAMARI Unavailable Unavailable TAVON Bauer, JEANNIE Unavailable Unavailable BARB Bauer, EFFROSYNI Unavailable Unavailable ADAIR Bauer, DAGOBERTO Unavailable Unavailable ADAIR MEEKS [place], DAGOBERTO M Unavailable Unavailable DEBORAH [facility] DAMARI HOLDER Unavailable Unavailable Barb MEEKS, Effrosyni Unavailable Unavailable MARVIN MEEKS [place], KELSEY Unavailable Unavailable BILL MEEKS [place], EDWARD Unavailable Unavailable Tavon MEEKS, Jeannie Unavailable [...] MOBLEY M.D. * Start : 06-Mar-2017 Active Ibuprofen 800 MG Oral Tablet TAKE 1 TABLET BY MOUTH EVERY 6 TO 8 HOURS NEEDED * Quantity: 90 Refills: 0 DAMARI CABRERA APRN * Start : 23-Jun-2017 Active Polyethylene Glycol [...] 0 CARRIE MOBLEY M.D. * Start : 11-Jan-2020 Active HYDROcodone-Acetaminophen 10-325 MG Oral Tablet TAKE 1 TABLET EVERY 4 TO 6 HOURS NEEDED FOR PAIN. * Quantity: 90 Refills: 0 CARRIE MOBLEY M.D. * Start : 11-Jan-2020 Active Endari 5 GM Oral Packet Take 10 grams every 12 hours * Quantity: 120 Refills: 2 TRICIA BORRERO M.D.NA * Start : 24-Dec-2018 Active HYDROmorphone HCl [...] DAILY. * Quantity: 10 Refills: 0 ADAIR Bauer, DAGOBERTO * Start : 28-Nov-2019 Active Azithromycin [...] po qhs * Quantity: 30 Refills: 3 JEANNIE MONTES DE OCA M.D. * Start : 11-Dec-2019 Active IBU 800 MG Oral Tablet TAKE 1 TABLET EVERY 6 TO 8 HOURS NEEDED. * Quantity: 60 Refills: 0 APOSTOLIDKEEGAN Bauer EFFROSYNI * Start : 16-Dec-2019 Active Allergies [...] Varivax 1350 PFU/0.5ML Subcutaneous Injectable Lot #: [id number] on: 02-Jun-2009 Meningo (Menactra) on: 02-Jun-2009 Tdap [...] 65yrs) or more drinks in a day? [id number] Physical Findings 14 Status: Comments: PHQ-9 Adult Depression Screening Results Date Description Value Details Results not documented Plan of Care Name Dates Details Planned Observations Planned Goals not documented Planned Encounters Appointment; JEANNIE MONTES DE OCA M.D. On: 15-Jan-2020 14:30 Appointment; BARBARA, ADULTCLINIC On: 24-Jan-2020 8:00 Appointment; EDWARD KHAN M.D. On: 24-Jan-2020 9:30 Appointment; CARRIE MOBLEY M.D. On: 03-Feb-2020 15:40 Appointment; CARRIE MOBLEY M.D. On: 17-Feb-2020 14:00 Interventions Provided Follow-ups/Referrals* Hydraulic Design Engineer Service Request; To Be Done: 02 Jan 2020 Instructions Name Dates Details Instructions not documented [...]
--- OUTSIDE RECORDS SUMMARY | 2020-01-09 12:29 | XMS REPORT | Summary of Care ---
Author Author Chelsey CURRICULUM ADVISORY TEACHER, Domitila [facility] Unknown Address Unknown Phone Unavailable Care Team Providers Care Sheet Metal Shop Helper Name Role Phone BILL Bauer, EDWARD Unavailable Unavailable DEBORAH WOODS, DAMARI Unavailable Unavailable TAVON Bauer, JEANNIE Unavailable Unavailable BARB Bauer, EFFROSYNI Unavailable Unavailable ADAIR Bauer, DAGOBERTO Unavailable Unavailable ADAIR MEEKS [place], DAGOBERTO M Unavailable Unavailable DEBORAH OPTICS TEST TECHNICIAN DAMARI HOLDER Unavailable Unavailable Barb MEEKS, Effrosyni Unavailable Unavailable MARVIN MEEKS [place], KELSEY Unavailable Unavailable BILL MEEKS [place], EDWARD Unavailable Unavailable Tavon MEEKS, Jeannie Unavailable [...] ONCE DAILY. * Quantity: 30 Refills: 6 CARMEN MOBLEY M.D.YNMorena * Start : 27-Nov-2017 Active ALPRAZolam 1 [...] hours * Quantity: 120 Refills: 2 TRICIA DAVIS M.D.NA * Start : 24-Dec-2018 Active HYDROmorphone [...] NEEDED. * Quantity: 60 Refills: 0 APOSTOLIDKEEGAN Bauer, EFFROSYNI * Start : 16-Dec-2019 Active [...] Varivax 1350 PFU/0.5ML Subcutaneous Injectable Lot #: [id number] on: 02-Jun-2009 Meningo (Menactra) on: 02-Jun-2009 Tdap [...] 65yrs) or more drinks in a day? [id number] Physical Findings 14 Status: Comments: PHQ-9 Adult Depression Screening Results Date Description Value Details Results not documented Plan of Care Name Dates Details Planned Observations Planned Goals not documented Planned Encounters Waste Elimination Service Request Appointment; JEANNIE MONTES DE OCA M.D. On: 15-Jan-2020 14:30 Appointment; BARBARA ADULTCLINIC On: 24-Jan-2020 8:00 Appointment; EDWARD KHAN M.D. On: 24-Jan-2020 9:30 Appointment; CARRIE MOBLEY M.D. On: 03-Feb-2020 15:40 Appointment; CARRIE MOBLEY M.D. On: 17-Feb-2020 14:00 Planned Medications [...] Polyethylene Glycol 3350 Oral Packet - Renew Medications/Immunizations Administered* Sodium Chloride 0.9 % Intravenous [...] it in the future'. She moved to [place] to live with her mom a few [...] me because there are no records from [facility].Stopped keppra because she says was having [...] not documented On: 24-Jan-2019 10:00 Appointment; DAGOBERTO ADVIS M.D. Encounter Diagnosis: Problem not documented On: [...]
--- OUTSIDE RECORDS SUMMARY | 2020-01-09 12:29 | XMS REPORT | Summary of Care ---
Author Author BARB Bauer, CARRIE Peguero Unknown Address Unknown Phone Unavailable Care Team Providers Care Drawing Supervisor Name Role Phone BILL Bauer, EDWARD Unavailable Unavailable DEBORAH WOODS, DAMARI Unavailable Unavailable TAVON Bauer, JEANNIE Unavailable Unavailable BARB Bauer, EFFROSYNI Unavailable Unavailable ADAIR Bauer, DAGOBERTO Unavailable Unavailable ADAIR MEEKS [place], DAGOBERTO Higgins Unavailable Unavailable DEB[facility]AH [facility] DAMARI GALLO Unavailable Unavailable Barb MEEKS, Zarinarosyni Unavailable Unavailable MARVIN MEEKS [place], KAIRARadha Unavailable Unavailable BILL MEEKS [place], EDWARD Unavailable [...] PRN nausea * Quantity: 30 Refills: 3 ZARINA MOBLEY M.D.ROSYNMorena * Start : 06-Mar-2017 Active Ibuprofen 800 MG Oral Tablet TAKE 1 TABLET BY MOUTH EVERY 6 TO 8 HOURS NEEDED * Quantity: 90 Refills: 0 DAMARI CABRERA APRN * Start : 23-Jun-2017 Active Polyethylene Glycol 3350 Oral Packet MIX 1 PACKET IN 8 OUNCES OF LIQUID AND DRINK ONCE DAILY. * Quantity: 30 Refills: 6 ZARINA MOBLEY M.D.ROSYNMorena * Start : 27-Nov-2017 Active [...] 12 hours * Quantity: 120 Refills: 2 ADAIR Bauer, DAGOBERTO * Start : 24-Dec-2018 Active HYDROmorphone HCl - 2 MG Oral Tablet Take 1 tb every 4-6 hours as needed for breakthrough pain (ie > 7/10) * Quantity: 90 Refills: 0 CARMEN MOBLEY M.D.YNMorena * Start : 29-Apr-2019 Active levETIRAcetam 750 MG Oral Tablet TAKE 1 TABLET TWICE DAILY * Quantity: 60 Refills: 11 BILL Bauer EDWARD * Start : 31-May-2019 Active Oseltamivir Phosphate [...] HOURS NEEDED. * Quantity: 60 Refills: 0 ZARINA MOBLEY M.D.ROSRIAZ * Start : 16-Dec-2019 Active Allergies and [...] Varivax 1350 PFU/0.5ML Subcutaneous Injectable Lot #: [id number] on: 02-Jun-2009 Meningo (Menactra) on: 02-Jun-2009 Tdap [...] 65yrs) or more drinks in a day? [id number] Physical Findings 14 Status: Comments: PHQ-9 Adult [...] it in the future'. She moved to [place] to live with her mom a few [...] me because there are no records from [facility].Stopped keppra because she says was having more [...] Problem not documented On: 11-Jan-2018 9:00 Appointment; DEBORAH, DAMARI, CONTRACTS ANALYST Encounter Diagnosis: Problem not documented On: 09-Feb-2018 [...]
--- OUTSIDE RECORDS SUMMARY | 2020-01-09 12:29 | XMS REPORT | Summary of Care ---
Author Author BARB Bauer, CARRIE Peguero Unknown Address Unknown Phone Unavailable Care Team Providers Care Wheel Roller Name Role Phone BILL Bauer, EDWARD Unavailable Unavailable DEBORAH WOODS, DAMARI Unavailable Unavailable TAVON Bauer, JEANNIE Unavailable Unavailable BARB Bauer, EFFROSYNI Unavailable Unavailable ADAIR Bauer, DAGOBERTO Unavailable Unavailable ADAIR MEEKS [place], DAGOBERTO Higgins Unavailable Unavailable DEBORAH [facility] DAMARI GALLO Unavailable Unavailable Barb MEEKS, Zarinarosyni Unavailable Unavailable MARVIN MEEKS [place], KAIRARadha Unavailable Unavailable BILL MEEKS [place], EDWARD Unavailable Unavailable Tavon MEEKS, Jeannie Unavailable [...] Varivax 1350 PFU/0.5ML Subcutaneous Injectable Lot #: [id number] on: 02-Jun-2009 Meningo (Menactra) on: 02-Jun-2009 Tdap [...] 65yrs) or more drinks in a day? [id number] Physical Findings 14 Status: Comments: PHQ-9 Adult Depression Screening Results Date Description Value Details :00 [FORMERLY [facility], [facility]] CBC (INCLUDES DIFF/PLT) WBC 8.4 {x10E3/uL} Range: 3.4-10.8 RBC 3.49 {x10E6/uL} (Below low threshold) Range: 3.77-5.28 Hemoglobin 8.1 g/dL (Below low threshold) Range: 11.1-15.9 Hematocrit 27.1 % (Below low threshold) Range: 34.0-46.6 MCV 78 fL (Below low threshold) Range: 79-97 MCH 23.2 pg (Below low threshold) Range: 26.6-33.0 MCHC 29.9 g/dL (Below low threshold) Range: 31.5-35.7 RDW 17.6 % (Above high threshold) Range: 11.7-15.4 Platelets 363 {x10E3/uL} Range: 150-450 Neutrophils 61 % Range: Not Estab. Lymphs 26 % Range: Not Estab. Monocytes 10 % Range: Not Estab. Eos 2 % Range: Not Estab. Basos 1 % Range: Not Estab. Immature Cells Neutrophils (Absolute) 5.2 {x10E3/uL} Range: 1.4-7.0 Lymphs (Absolute) 2.2 {x10E3/uL} Range: 0.7-3.1 Monocytes(Absolute) 0.8 {x10E3/uL} Range: 0.1-0.9 Eos (Absolute) 0.1 {x10E3/uL} Range: 0.0-0.4 Baso (Absolute) 0.1 {x10E3/uL} Range: 0.0-0.2 Immature Granulocytes 0 % Range: Not Estab. Immature Grans (Abs) 0.0 {x10E3/uL} Range: 0.0-0.1 NRBC 3 % (Above high threshold) Range: 0 - 0 Hematology Comments: :00 [QL] FERRITIN Ferritin, Serum 2495 ng/mL (Above high threshold) Range: 15-150 Comments: Results confirmed ondilution. Plan of Care Name Dates Details Planned Observations Planned Goals not documented Planned Encounters Appointment; JEANNIE MONTES DE OCA M.D. On: 15-Jan-2020 14:30 Appointment; EDILSON JIMENEZCLLORI On: 24-Jan-2020 8:00 Appointment; [...] Problem not documented On: 28-Nov-2019 9:00 Appointment; JEANINE MONTES DE OCA M.D. Encounter Diagnosis: Problem [...]
--- OUTSIDE RECORDS SUMMARY | 2020-01-09 12:29 | XMS REPORT | Summary of Care ---
Author Author DAMARI CABRERA APRN Organization Unknown Address Unknown Phone Unavailable Care Team Providers Care Logistics Specialist Name Role Phone BILL Bauer, EDWARD Unavailable Unavailable DAMARI CABRERA APRN Unavailable Unavailable TAVON Bauer, JEANNIE Unavailable Unavailable BARB Bauer, EFFROSYNI Unavailable Unavailable ADAIR Bauer, DAGOBERTO Unavailable Unavailable ADAIR MEEKS [place], DAGOBERTO M Unavailable Unavailable DEBORAH HAIRSPRING ADJUSTER DAMARI HOLDER Unavailable Unavailable Barb MEEKS, Effrosyni Unavailable Unavailable MARVIN MEEKS [place], KELSEY Unavailable Unavailable BILL MEEKS [place], EDWARD Unavailable Unavailable Tavon MEEKS, Jeannie Unavailable [...] qhs * Quantity: 30 Refills: 3 JEANNIE MONTESD E OCA M.D. * Start : 11-Dec-2019 Active [...] Varivax 1350 PFU/0.5ML Subcutaneous Injectable Lot #: [id number] on: 02-Jun-2009 Meningo (Menactra) on: 02-Jun-2009 Tdap [...] 65yrs) or more drinks in a day? [id number] Physical Findings 14 Status: Comments: PHQ-9 Adult Depression Screening Results Date Description Value Details Results not documented Plan of Care Name Dates Details Planned Observations Planned Goals not documented Planned Encounters Appointment; JEANNIE MONTES DE OCA M.D. On: 02-Jan-2020 14:00 Appointment; BARBARA, ADULTCLINIC On: 24-Jan-2020 8:00 Appointment; EDWARD KHAN M.D. On: 24-Jan-2020 9:30 Appointment; CARRIE MOBLEY M.D. On: 03-Feb-2020 15:40 Appointment; CARRIE MOBLEY M.D. On: 17-Feb-2020 14:00 Interventions Provided Medication Changes* Ibuprofen 800 MG Oral Tablet - Renew Instructions Name [...]
--- OUTSIDE RECORDS SUMMARY | 2020-01-09 12:30 | XMS REPORT | Summary of Care ---
Author Author Chelsey GLASS SETTER, Domitila [facility] Unknown Address Unknown Phone Unavailable Care Team Providers Care Catalogue Maker Name Role Phone BILL Bauer, EDWARD Unavailable Unavailable DEBORAH WOODS, DAMARI Unavailable Unavailable TAVON Bauer, JEANNIE Unavailable Unavailable BARB Bauer, EFFROSYNI Unavailable Unavailable ADAIR Bauer, DAGOBERTO Unavailable Unavailable ADAIR MEEKS [place], DAGOBERTO M Unavailable Unavailable DEBORAH WEBSPHERE DEVELOPER DAMARI HOLDER Unavailable Unavailable Barb MEEKS, Effrosyni Unavailable Unavailable MARVIN MEEKS [place], KELSEY Unavailable Unavailable BILL MEEKS [place], EDWARD Unavailable Unavailable Tavon MEEKS, Jeannie Unavailable [...] ONCE DAILY. * Quantity: 30 Refills: 6 CAMREN MOBLEY M.D.YNMorena * Start : 27-Nov-2017 Active [...] Varivax 1350 PFU/0.5ML Subcutaneous Injectable Lot #: [id number] on: 02-Jun-2009 Meningo (Menactra) on: 02-Jun-2009 Tdap [...] 65yrs) or more drinks in a day? [id number] Physical Findings 14 Status: Comments: PHQ-9 Adult [...] Range: 0 - 0 Hematology Comments: :00 [FORMERLY [facility], 1928–1983] FERRITIN Ferritin, Serum 2495 ng/mL (Above high [...] M.D. On: 17-Feb-2020 14:00 Interventions Provided Follow-ups/Referrals* Music Education Adjunct Professor Service Request; Done: 06 Jan 2020 Plan* Acknowledgement Patient verbalizes understanding of Plan * Follow Up * Music Education Adjunct Professor will follow up with patient around/for Instructions Name Dates Details Instructions not documented [...] not documented On: 15-Aug-2019 14:00 Appointment; JONA RAAGON LCSW Encounter Diagnosis: Problem not documented On: [...]
[2020-01-09] MEDS ORDERED: ONDANSETRON HCL INJ 2MG/ML 2ML 2 MG/ML VIAL IV STA (12:36)
[2020-01-09] MEDS ORDERED: SODIUM CHLORIDE 0.9% 1000ML 1,000 ML IV STA (12:36)
[2020-01-09] MEDS ORDERED: MORPHINE SULFATE INJ 4 MG/ML INJ 1ML IV STA (12:37)
[2020-01-09 13:06] LABS: BASOPHILS # (AUTO) 0.2 (0.0-0.1); BASOPHILS % 1.2 % (0.0-1.0); EOSINOPHILS # (AUTO) 0.2 (0.0-0.4); EOSINOPHILS % 1.1 % (0.0-6.0); HEMATOCRIT 24.8 % (34.2-44.1); HEMOGLOBIN 7.9 g/dL (12.0-16.0); LYMPHOCYTES # (AUTO) 2.7 (1.0-3.2); LYMPHOCYTES % 14.5 % (18.0-39.1); MEAN CORPUSCULAR HGB CONC 31.9 g/dL (31-35); MEAN CORPUSCULAR VOLUME 72.1 fL (81-99); MONOCYTES # (AUTO) 1.6 (0.2-0.8); MONOCYTES % 8.8 % (4.4-11.3); NEUTROPHILS # (AUTO) 12.6 (2.1-6.9); NEUTROPHILS % 69.1 % (38.7-80.0); PLATELET COUNT 339 x10e3/uL (140-360); RED BLOOD COUNT 3.44 x10e6/uL (3.6-5.1)
--- NOTE | 2020-01-09 13:17 | Diagnostic Imaging Report ---
EXAMINATION: CHEST 2 VIEWS INDICATION: Sickle cell crisis COMPARISON: Chest radiograph 03/19/2019 FINDINGS: LINES/TUBES:None LUNGS:The lungs are moderately inflated. Mild opacities at the left lung base, most likely subsegmental atelectasis. No focal pneumonia or pulmonary edema. PLEURA:No pleural effusion or pneumothorax. MEDIASTINUM:The cardiomediastinal silhouette appears normal in size and shape. BONES/SOFT TISSUES:No acute osseous injury. Mild H-shaped contour of thoracic vertebral bodies can be seen with sickle cell disease. ABDOMEN:No free air under the diaphragm. IMPRESSION: No focal pneumonia or pulmonary edema. Signed by: Kandace Manley MD on 01/09/2020 1:13 PM
[2020-01-09 13:22] LABS: ALANINE AMINOTRANSFERASE 24 IU/L (0-55); ALBUMIN 4.5 g/dL (3.5-5.0); ALBUMIN/GLOBULIN RATIO 1.7 (0.8-2.0); ALKALINE PHOSPHATASE 81 IU/L (40-150); ANION GAP 13.5 mmol/L (8-16); BLOOD UREA NITROGEN 9 mg/dL (7-26); BUN/CREATININE RATIO 17 (6-25); CALCIUM 9.3 mg/dL (8.4-10.2); CARBON DIOXIDE 25 mmol/L (22-29); CHLORIDE 107 mmol/L (98-107); CREATININE, SERUM 0.53 mg/dL (0.57-1.11); EST GLOMERULAR FILTRATION RATE > 60 ML/MIN (60-); GLUCOSE 106 mg/dL (74-118); POTASSIUM 4.5 mmol/L (3.5-5.1); SODIUM 141 mmol/L (136-145)
[2020-01-09] MEDS ORDERED: HYDROMORPHONE 1MG/1ML INJ IV STA (13:31)
[2020-01-09] MEDS ORDERED: HYDROMORPHONE 2MG/ML 2 MG/ML ML ONE (13:41)
[2020-01-09] MEDS: ONDANSETRON HCL INJ 2MG/ML 2ML 2 MG/ML VIAL IV PRN ×4 (13:42→23:24)
[2020-01-09] MEDS ORDERED: HYDROMORPHONE 1MG/1ML INJ IV PRN (13:45)
--- NOTE | 2020-01-09 15:30 | NUR ---
The pt. was received from the ER via stretcher with diagnosis of sickle cell crisis. There are no admitting orders on the pt and a call was placed to the to obtain orders. She declines to provide admission information when asked. Vital sighs were taken and recorded.
[2020-01-09] MEDS: SODIUM CHLORIDE 0.9% 1000ML 1,000 ML IV SCH ×2 (16:30→19:01)
[2020-01-09 16:48] VITALS: BP 117/60
--- NOTE | 2020-01-09 19:09 | NUR ---
PATIENT SEEN DURING SHIFT CHANGE HIDING UNDER COVERING CRYING, PATIENT STATING THAT HER PAIN LEVEL IS TOO HIGH 08/01, "MY PAIN CONTROL IS NOT RIGHT, I GET 2MG OF DILAUDID NOT 1MG, PLEASE HELP ME" PAGED FOR ORDERS
[2020-01-09 20:00] VITALS: BP 112/58
[2020-01-09] MEDS: HYDROMORPHONE 2MG/ML 2 MG/ML ML IV PRN ×2 (20:10→23:24)
--- NOTE | 2020-01-09 20:12 | NUR ---
attempted to complete head to toe assessment, patient starting crying stating "no no no no i just got myself straighten up no no no " states ,maybe later when her pain is better
[2020-01-09 23:28] LABS: BILIRUBIN,URINE NEGATIVE (NEGATIVE); CLARITY,URINE CLEAR (CLEAR); COLOR,URINE YELLOW (YELLOW); KETONES,URINE NEGATIVE (NEGATIVE); LEUKOCYTE ESTERASE ,URINE NEGATIVE (NEGATIVE); NITRITE,URINE NEGATIVE (NEGATIVE); PROTEIN,URINE DIPSTICK NEGATIVE (NEGATIVE); URINE UROBILINOGEN 0.2 mg/dL (0.2 - 1)
[2020-01-09 23:40] LABS: BACTERIA,URINE FEW /HPF; EPITHELIAL CELLS,URINE FEW /LPF; RBC,URINE 0-5 /HPF (0-5); WBC,URINE (MAN) 0-5 /HPF (0-5)
[2020-01-10] VITALS (10 sets, daily range): BP systolic 103–117; BP diastolic 54–69
[2020-01-10] MEDS: SODIUM CHLORIDE 0.9% 1000ML 1,000 ML IV SCH ×3 (02:08→20:56)
[2020-01-10] MEDS: HYDROMORPHONE 2MG/ML 2 MG/ML ML IV PRN ×7 (02:20→20:56)
[2020-01-10] MEDS: ONDANSETRON HCL INJ 2MG/ML 2ML 2 MG/ML VIAL IV PRN ×7 (02:24→21:09)
--- NOTE | 2020-01-10 05:30 | NUR ---
PATIENT FEBRILE TEMP 100.6 hr TACHY 133, AWAKE ALERT, HYPOTENSIVE, MD COOK PAGED TWO TIMES REGARDING SIRS ALERT, PATIENT CURRENTLY ON IV FLUIDS 125CC/HR VIA PERIPHERAL IV SITE, AWAITING ORDERS, PER PROTOCOL LACTIC ACID DRAWN STAT, LAB ON FLOOR, RESULTS PENDING
--- NOTE | 2020-01-10 05:57 | NUR ---
PATIENT ASSISTED TO BEDSIDE COMMODE, PATIENT ALLOWED ME TO NOW COMPLETE SKIN ASSESSMENT, AND PLACE HOSPITAL GOWN ON HER, RED CHEN NOTED MIDDLE OF PATIENT BACK, PATIENT STATES "iTS FROM THE HEATING PAD" HEATING PAD NOTED UP UNDER PATIENT BACK IN HER BED, PATIENT HAS 6 BLANKETS ON HER BED ALSO WHICH IS HELPING TO CONTRIBUTE TO ELEVATE TEMP, ORAL FLUIDS ENCOURAGED, URINE OUTPUT OF 800CC NOTED, DARK SERINA URINE
--- NOTE | 2020-01-10 06:00 | NUR ---
MD COOK CALLED BACK, INFORMED MD COOK OF SIRS ALERT, CURRENT VITALS GIVEN, LAST WBC LEVEL, ADVISED THAT NO AM LABS ORDERED, GIVEN LACTIC ACID RESULT, MD COOK GIVEN ORDERS TO CONSULT MD HERNANDEZ, ORDER CBC, BMP FOR AM LABS, PATIENT REQUESTED INCREASE IN PAIN MANAGEMENT, PER MD COOK, ADVISED TO CONSULT WITH ON CHART DURING REGULAR ROUNDING, PT MADE AWARE THAT DILAUDID 2MG IV Q3H WILL CONTINUE FOR NOW
[2020-01-10 06:49] LABS: BASOPHILS # (AUTO) 0.1 (0.0-0.1); BASOPHILS % 0.5 % (0.0-1.0); HEMATOCRIT 24.5 % (34.2-44.1); HEMOGLOBIN 7.8 g/dL (12.0-16.0); LYMPHOCYTES # (AUTO) 0.8 (1.0-3.2); LYMPHOCYTES % 3.6 % (18.0-39.1); MEAN CORPUSCULAR HEMOGLOBIN 22.9 pg (28-32); MEAN CORPUSCULAR HGB CONC 31.8 g/dL (31-35); MEAN CORPUSCULAR VOLUME 72.1 fL (81-99); MONOCYTES # (AUTO) 1.6 (0.2-0.8); MONOCYTES % 7.4 % (4.4-11.3); NEUTROPHILS # (AUTO) 18.9 (2.1-6.9); NEUTROPHILS % 86.8 % (38.7-80.0); PLATELET COUNT 298 x10e3/uL (140-360); RED CELL DISTRIBUTION WIDTH 16.8 % (11.7-14.4)
[2020-01-10 07:02] LABS: ANION GAP 10.8 mmol/L (8-16); BLOOD UREA NITROGEN 5 mg/dL (7-26); BUN/CREATININE RATIO 10 (6-25); CALCIUM 9.1 mg/dL (8.4-10.2); CARBON DIOXIDE 25 mmol/L (22-29); CHLORIDE 107 mmol/L (98-107); CREATININE, SERUM 0.52 mg/dL (0.57-1.11); EST GLOMERULAR FILTRATION RATE > 60 ML/MIN (60-); GLUCOSE 122 mg/dL (74-118); POTASSIUM 3.8 mmol/L (3.5-5.1); SODIUM 139 mmol/L (136-145)
--- NOTE | 2020-01-10 07:33 | NUR ---
consult called and verified with MD villalobos
--- NOTE | 2020-01-10 08:00 | NUR ---
paged to notify of consult.
[2020-01-10] MEDS ORDERED: VITAMIN C500 M3 PEG (11:37)
[2020-01-10] MEDS ORDERED: PROBIOTIC & AC1 EACH PO (11:37)
[2020-01-10] MEDS ORDERED: HYDROMORPHONE HC2 MG PO (11:37)
[2020-01-10] MEDS ORDERED: morphine IR PO (11:37)
[2020-01-10] MEDS ORDERED: VITAMIN E400 UNI1 PO (11:37)
[2020-01-10] MEDS ORDERED: IBUPROFEN400 MG PO (11:37)
[2020-01-10] MEDS ORDERED: MULTI-VITAMIN1 EACH PO (11:37)
[2020-01-10] MEDS ORDERED: KEPPRA500 MG PO (11:37)
[2020-01-10] MEDS ORDERED: CEFEPIME HCL 1 GM VIAL IV SCH (13:30)
--- NOTE | 2020-01-10 14:10 | NUR ---
WOUND CARE CONSULTATION PUP SCREEN RE: REDNESS ON HER BACK LOS= 1 DAY Age= 24 [place] Score = 14 Visco Mattress Conservative PUP PATIENT VISIT / SKIN CHECK: REFUSED RECOMMENDATION: - Alternating Pressure Air Mattress - Bilateral Heel Protectors / Offload Heels with Pillows - Turn and Reposition Every 2 Hours Addendum: 01/10/20 at 1412 by Vanesa Benavides RN Amended: Links added.
[2020-01-10] MEDS ORDERED: CEFEPIME 1GM/NS 0.9% 50 ML 50 ML IV SCH (15:00)
[2020-01-10] MEDS: CEFTRIAXONE SOD 1 GM/NS 50 ML 50 ML IV SCH (18:04)
--- NOTE | 2020-01-10 19:10 | NUR ---
Report given to oncoming nurse of patient's status. Resting in bed. No s/s of acute distress noted. Side rails upx2, call light within reach.
--- NOTE | 2020-01-10 20:10 | Consultation ---
DATE OF CONSULTATION: 01/10/2020 HISTORY OF PRESENT ILLNESS: Ms. Graves is a very pleasant 24-year-old, who has history of sickle cell disease comes in with one-day history of fever, chills, generalized aches and pain. There is really no one area where she is hurting. There is generalized aches and pain. She is also complaining of fever and chills. There is no urgency, no frequency. The patient was admitted. PAST MEDICAL HISTORY: Sickle cell disease. PAST SURGICAL HISTORY: Denies. ALLERGIES: NKA. SOCIAL HISTORY: She denies smoking, drug abuse, or alcohol abuse. LABORATORY DATA: On admission, white count was 18.3, came down to 21, hemoglobin 7.9. Sodium 139, potassium 3.8, and creatinine 0.53. The patient is currently on cefepime. PHYSICAL EXAMINATION: GENERAL: She is currently alert and oriented. Does not seem to be in acute distress. VITAL SIGNS: Stable, currently afebrile. HEENT: Not icteric. NECK: Supple. CHEST: Clear. HEART: S1 and S2. No S3, S4, or murmur. ABDOMEN: Soft. IMPRESSION: Sickle cell crisis with fever, rule out infection. We will give the patient Rocephin 1 g daily. Agree with blood cultures and urine cultures. Discontinue cefepime. We will follow. MD ERIC Baires/HUGH /[id number]
[2020-01-11] VITALS (11 sets, daily range): BP systolic 103–132; BP diastolic 55–89
[2020-01-11] MEDS: HYDROMORPHONE 2MG/ML 2 MG/ML ML IV PRN ×8 (00:11→23:15)
--- NOTE | 2020-01-11 00:20 | NUR ---
Received report from night nurse. Pt alert and oriented to name. c/o moderate gen. pain, previously medicated. Call light within reach. Will continue to monitor.
[2020-01-11] MEDS: IBUPROFEN 100 MG/5 ML SUSP PO PRN ×2 (01:20→11:49)
[2020-01-11] MEDS: ONDANSETRON HCL INJ 2MG/ML 2ML 2 MG/ML VIAL IV PRN ×2 (04:30→21:21)
[2020-01-11] MEDS: SODIUM CHLORIDE 0.9% 1000ML 1,000 ML IV SCH ×3 (05:30→21:22)
[2020-01-11 06:17] LABS: HEMATOCRIT 23.6 % (34.2-44.1); HEMOGLOBIN 7.4 g/dL (12.0-16.0); MEAN CORPUSCULAR HEMOGLOBIN 22.5 pg (28-32); MEAN CORPUSCULAR HGB CONC 31.4 g/dL (31-35); MEAN CORPUSCULAR VOLUME 71.7 fL (81-99); PLATELET COUNT 243 x10e3/uL (140-360); RED BLOOD COUNT 3.29 x10e6/uL (3.6-5.1); RED CELL DISTRIBUTION WIDTH 15.8 % (11.7-14.4)
[2020-01-11 07:32] LABS: ANISOCYTOSIS SLIGHT; HYPOCHROMASIA MODERATE; LYMPHOCYTES % (MANUAL) 7 % (19-48); MICROCYTOSIS SLIGHT; MONOCYTES % (MANUAL) 10 % (3.4-9.0); NEUTROPHILS % (MANUAL) 83 % (40-74); PLATELET ESTIMATE ADEQUATE
[2020-01-11 07:33] LABS: OVALOCYTES FEW; PLATELET MORPHOLOGY COMMENT NORMAL; RBC MORPHOLOGY COMMENT ABNORMAL
[2020-01-11] MEDS ORDERED: SODIUM CHLORIDE 0.9% 250ML 250 ML IV ONE (12:45)
[2020-01-11] MEDS: CEFTRIAXONE SOD 1 GM/NS 50 ML 50 ML IV SCH (16:28)
[2020-01-11] MEDS: LEVETIRACETAM 500 MG TAB PO SCH (16:28)
--- NOTE | 2020-01-11 17:00 | NUR ---
BLOOD STARTED WITH TWYLA RUIZ
--- NOTE | 2020-01-11 17:33 | Progress Note ---
DATE: 01/11/2020 Internal Medicine Progress Note SUBJECTIVE: The patient came with sickle cell disease/sickle cell crisis. The patient is complaining of pain in the front part of the chest wall. OBJECTIVE: VITAL SIGNS: Blood pressure 118/58, temperature is 101, respiratory rate 18 per minute, heart rate 78 per minute, oxygen saturation 100%. HEART: Regular rhythm. Normal S1, S2 sounds. LUNGS: Clear bilaterally. ABDOMEN: Soft. EXTREMITIES: Show no edema. LABORATORY DATA: On the BMP; sodium 139, potassium 3.8, chloride 107, CO2 of 25, BUN 5, creatinine 0.52, glucose 122. On the CBC, white blood count 15,400, hemoglobin 7.4, hematocrit 23.6 cm, and platelet count of 243,000. AST 13, ALT 24, total bilirubin 1.1, alkaline phosphatase 81. IMPRESSION: 1. Sickle cell crisis. 2. Chronic pain. 3. Seizure disorder. 4. Fever. 5. Leukocytosis. PLAN OF TREATMENT: The patient is going to get a 1 unit of blood transfusion as per Dr. Fischer, hemato-oncologist. Continue ceftriaxone 2 g IV daily, IV fluids 225 mL an hour, Dilaudid 2 mg IV q.3h. as needed, Zofran 4 mg IV q.3h. as needed for vomiting, Keppra 500 mg twice a day because of history of seizure disorder, continue multivitamin 1 tablet daily, ibuprofen 800 mg twice a day, vitamin C 500 mg daily, vitamin E 400 units daily, folic acid 1 mg daily. She will be DNR. We are going to continue monitoring the CBC following all the cultures. MD JYOTI Hewitt/MODL /[id number]
--- NOTE | 2020-01-11 17:54 | NUR ---
NO REACTION NOTED TO THE BLOOD. PATIENT DENIES ANY KIND OF REACTION. WILL CONTINUE TO MONITOR.
[2020-01-12] VITALS (12 sets, daily range): BP systolic 95–121; BP diastolic 50–71
[2020-01-12] MEDS: HYDROMORPHONE 2MG/ML 2 MG/ML ML IV PRN ×8 (02:35→23:50)
[2020-01-12] MEDS: IBUPROFEN 100 MG/5 ML SUSP PO PRN ×2 (04:30→16:50)
[2020-01-12] MEDS: SODIUM CHLORIDE 0.9% 1000ML 1,000 ML IV SCH ×3 (05:30→14:28)
[2020-01-12] MEDS: ONDANSETRON HCL INJ 2MG/ML 2ML 2 MG/ML VIAL IV PRN (05:36)
--- NOTE | 2020-01-12 07:00 | NUR ---
BEDSIDE SHIFT REPORT RECEIVED FROM THE FORMING ACID DUMPER RN. EDUCATED PT ABOUT FALL PRECAUTIONS. PT VERBALIZED UNDERSTANDING. CALL LIGHT WITH IN EASY REACH. INSTRUCTED PT TO USE CALL LIGHT FOR ALL THE NEEDS. BED IS LOW AND LOCKED. SIDE RAILS X2. FAMILY MEMBER AT BEDSIDE.BED ALARM IS ON. PT DENIES NEEDS AT THIS TIME.
[2020-01-12 09:25] LABS: HEMATOCRIT 25.6 % (34.2-44.1); MEAN CORPUSCULAR HEMOGLOBIN 23.2 pg (28-32); MEAN CORPUSCULAR HGB CONC 31.3 g/dL (31-35); MEAN CORPUSCULAR VOLUME 74.2 fL (81-99); PLATELET COUNT 195 x10e3/uL (140-360); RED BLOOD COUNT 3.45 x10e6/uL (3.6-5.1)
[2020-01-12] MEDS: FOLIC ACID 1 MG TAB PO SCH (09:44)
[2020-01-12] MEDS: ASCORBIC ACID 500 MG TAB PO SCH (09:44)
[2020-01-12] MEDS: MULTIVITAMINS/MINERALS TAB PO SCH (09:44)
[2020-01-12] MEDS: VITAMIN E 400 UNIT CAP PO SCH (09:44)
[2020-01-12] MEDS: LEVETIRACETAM 500 MG TAB PO SCH ×2 (09:44→16:49)
--- NOTE | 2020-01-12 14:51 | Progress Note ---
DATE: 01/12/2020 Internal Medicine Progress Note SUBJECTIVE: The patient is doing well. No significant complaint. Pain is less than before. PHYSICAL EXAMINATION: VITAL SIGNS: Blood pressure 95/50, temperature 98.4, heart rate 88 per minute, respiratory rate 18 per minute, and O2 saturation 99%. LABORATORY STUDIES: On the CBC; white blood count 8.80, hemoglobin 8.0, hematocrit 25.6, and platelet count 195,000. On the BMP; sodium 139, potassium 3.8, chloride 107, CO2 of 25, BUN 5, creatinine 0.52, glucose 122, lactic acid 0.7, and calcium 9.1. FINAL IMPRESSION: 1. Sickle cell crisis. 2. Chronic pain syndrome. 3. Seizure disorder. 4. Fever. 5. Leukocytosis. 6. Blood culture negative. Urine culture is also negative for any growth. PLAN OF TREATMENT: We are going to continue with current medication regimen, which include ceftriaxone 1 g IV daily, normal saline at 125 mL an hour, vitamin C 500 mg daily, folic acid 1 mg daily, Dilaudid 2 mg IV every 3 hours as needed for severe pain, ibuprofen 800 mg twice a day as needed for vgrvvokc-sj-hnikza pain, Keppra 500 mg twice a day because of history of seizures, multivitamin one tablet daily, Zofran 4 mg IV every 3 hours as needed, and vitamin . She will be DNR. MD JYOTI Hewitt/UHGH /[id number]
[2020-01-12] MEDS: CEFTRIAXONE SOD 1 GM/NS 50 ML 50 ML IV SCH (16:49)
[2020-01-13] VITALS (8 sets, daily range): BP systolic 101–114; BP diastolic 55–73
[2020-01-13 00:39] LABS: CREATINE KINASE 12 IU/L (29-168)
--- NOTE | 2020-01-13 01:00 | NUR ---
patient complained of chest pains and protocol was followed, Cardiac enzymes and EKG was negative, will inform MD Shin in the morning
[2020-01-13] MEDS: IBUPROFEN 100 MG/5 ML SUSP PO PRN ×2 (01:45→11:31)
[2020-01-13] MEDS: SODIUM CHLORIDE 0.9% 1000ML 1,000 ML IV SCH ×3 (02:46→13:30)
[2020-01-13 07:16] LABS: MEAN CORPUSCULAR HEMOGLOBIN 23.2 pg (28-32); MEAN CORPUSCULAR HGB CONC 32.3 g/dL (31-35); PLATELET COUNT 208 x10e3/uL (140-360); RED BLOOD COUNT 3.14 x10e6/uL (3.6-5.1)
[2020-01-13 07:20] LABS: HEMATOCRIT 22.6 % (34.2-44.1)
[2020-01-13 07:21] LABS: HEMOGLOBIN 7.3 g/dL (12.0-16.0)
--- NOTE | 2020-01-13 07:40 | NUR ---
Paged to notify Hgb 7.3. Awaiting for call back
[2020-01-13] MEDS ORDERED: SODIUM CHLORIDE 0.9% 250ML 250 ML IV ONE (08:30)
--- NOTE | 2020-01-13 08:54 | Progress Note ---
DATE: 01/13/2020 SUBJECTIVE: Ms. Graves is a 24-year-old female with history of seizure disorder, sickle cell anemia, and stroke, came to the emergency room complaining of pain all over. She was seen by [facility]. Yesterday, she has some chest pain. Troponin was negative. EKG was negative. The pain is much better. PHYSICAL EXAMINATION: GENERAL: She is awake and alert. VITAL SIGNS: Temperature is 98.6, blood pressure 111/66. HEART: Regular rate. LUNGS: Clear to auscultation. ABDOMEN: Soft. LABORATORY DATA: On the blood work; white count is 7.70, hemoglobin is 7.3, and hematocrit 22.6. Potassium 3.8, creatinine is 1.52, and glucose is 122. Urine culture and blood culture so far negative. ASSESSMENT: 1. Sickle cell crisis. 2. Chronic pain syndrome. 3. Seizure disorder. 4. Fever. 5. Leukocytosis. PLAN: Plan at the present time is to continue empiric IV antibiotics. Continue Dilaudid for pain. Continue home medications. Transfuse as needed. All this was discussed with the patient. All questions were answered to satisfaction. MD JERICHO Mayes/HUGH /[id number]
[2020-01-13] MEDS: FOLIC ACID 1 MG TAB PO SCH (09:30)
[2020-01-13] MEDS: VITAMIN E 400 UNIT CAP PO SCH (09:31)
[2020-01-13] MEDS: HYDROMORPHONE 2MG/ML 2 MG/ML ML IV PRN ×5 (09:31→22:35)
[2020-01-13] MEDS: ASCORBIC ACID 500 MG TAB PO SCH (09:31)
[2020-01-13] MEDS: MULTIVITAMINS/MINERALS TAB PO SCH (09:31)
[2020-01-13] MEDS: LEVETIRACETAM 500 MG TAB PO SCH ×2 (09:31→16:00)
[2020-01-13] MEDS: ONDANSETRON HCL INJ 2MG/ML 2ML 2 MG/ML VIAL IV PRN ×6 (09:31→22:35)
[2020-01-13] MEDS: CEFTRIAXONE SOD 1 GM/NS 50 ML 50 ML IV SCH (16:00)
--- NOTE | 2020-01-13 19:15 | NUR ---
BEDSIDE NURSING SHIFT REPORT COMPLETED WITH MORNING NURSE. PT ALERT AND ORIENTED, LYING IN BED HOB 45 DEGREES. C/O MOD. GEN PAIN. CALL LIGHT WITHIN REACH. WILL CONTINUE TO MONITOR.
--- NOTE | 2020-01-13 19:29 | NUR ---
Report given to oncoming nurse. No s/s of acute distress noted. Side rails upx2, call light within reach.
[2020-01-14] VITALS (8 sets, daily range): BP systolic 111–120; BP diastolic 57–69
[2020-01-14] MEDS: ONDANSETRON HCL INJ 2MG/ML 2ML 2 MG/ML VIAL IV PRN ×6 (02:10→21:10)
[2020-01-14] MEDS: HYDROMORPHONE 2MG/ML 2 MG/ML ML IV PRN ×7 (02:10→21:10)
[2020-01-14] MEDS: SODIUM CHLORIDE 0.9% 1000ML 1,000 ML IV SCH ×4 (02:44→21:10)
[2020-01-14] MEDS: IBUPROFEN 100 MG/5 ML SUSP PO PRN (02:45)
[2020-01-14 06:43] LABS: BASOPHILS # (AUTO) 0.1 (0.0-0.1); BASOPHILS % 0.5 % (0.0-1.0); EOSINOPHILS # (AUTO) 0.1 (0.0-0.4); HEMATOCRIT 26.8 % (34.2-44.1); HEMOGLOBIN 8.7 g/dL (12.0-16.0); LYMPHOCYTES # (AUTO) 1.2 (1.0-3.2); MEAN CORPUSCULAR HEMOGLOBIN 23.6 pg (28-32); MEAN CORPUSCULAR HGB CONC 32.5 g/dL (31-35); MEAN CORPUSCULAR VOLUME 72.6 fL (81-99); MONOCYTES # (AUTO) 1.1 (0.2-0.8); MONOCYTES % 11.2 % (4.4-11.3); NEUTROPHILS # (AUTO) 6.9 (2.1-6.9); PLATELET COUNT 256 x10e3/uL (140-360); RED BLOOD COUNT 3.69 x10e6/uL (3.6-5.1); RED CELL DISTRIBUTION WIDTH 17.2 % (11.7-14.4)
[2020-01-14] MEDS: ASCORBIC ACID 500 MG TAB PO SCH (08:21)
[2020-01-14] MEDS: FOLIC ACID 1 MG TAB PO SCH (08:21)
[2020-01-14] MEDS: LEVETIRACETAM 500 MG TAB PO SCH ×2 (08:21→16:44)
[2020-01-14] MEDS: MULTIVITAMINS/MINERALS TAB PO SCH (08:21)
[2020-01-14] MEDS: VITAMIN E 400 UNIT CAP PO SCH (08:22)
--- NOTE | 2020-01-14 08:58 | Progress Note ---
DATE: 01/14/2020 SUBJECTIVE: Graves is a 24-year-old female with history of sickle cell anemia, seizure disorder, stroke, came to the emergency room complaining of pain all over. She had a sickle cell crisis. The white count was elevated. She was seen by infectious disease, troponin and EKG had been negative for her chest pain. She developed diarrhea now. PHYSICAL EXAMINATION: GENERAL: She is awake and alert. She is feeling a little better, but she has diarrhea. VITAL SIGNS: Temperature is 97.6, blood pressure 116/69. HEART: Regular rate. LUNGS: Clear to auscultation. ABDOMEN: Soft. LABORATORY DATA: White count 9.35, hemoglobin 8.7, hematocrit 26.8. Potassium 3.8, creatinine 0.52. Urine so far cultures have been negative. ASSESSMENT: 1. Sickle cell crisis. 2. Chronic pain syndrome. 3. Seizure disorder. 4. Fever, resolving. 5. Diarrhea. PLAN: The plan at present time is to continue IV antibiotics. Continue to monitor electrolytes. For her anemia, transfuse as needed. Infectious Disease and Hematology are following the patient with me. All this was discussed with the patient. All questions were answered to satisfaction. MD JERICHO Mayes/HUGH /[id number]
[2020-01-14 09:25] LABS: HEMATOCRIT 28.1 % (34.2-44.1); MEAN CORPUSCULAR HEMOGLOBIN 23.2 pg (28-32); MEAN CORPUSCULAR VOLUME 72.4 fL (81-99); PLATELET COUNT 248 x10e3/uL (140-360); RED BLOOD COUNT 3.88 x10e6/uL (3.6-5.1); RED CELL DISTRIBUTION WIDTH 17.1 % (11.7-14.4)
[2020-01-14 19:17] LABS: EOSINOPHILS % (MANUAL) 1 % (0-7); LYMPHOCYTES % (MANUAL) 16 % (19-48); MONOCYTES % (MANUAL) 4 % (3.4-9.0); NEUTROPHILS % (MANUAL) 79 % (40-74)
[2020-01-14 19:18] LABS: ANISOCYTOSIS MODERATE; HYPOCHROMASIA MODERATE; POIKILOCYTOSIS SLIGHT; RBC MORPHOLOGY COMMENT ABNORMAL
[2020-01-14 19:19] LABS: PLATELET ESTIMATE ADEQUATE; PLATELET MORPHOLOGY COMMENT NORMAL
--- NOTE | 2020-01-14 19:20 | NUR ---
REPORT GIVEN TO ONCOMING NURSE, WALKING ROUNDS COMPLETE.
[2020-01-15] VITALS (9 sets, daily range): BP systolic 109–125; BP diastolic 55–98
[2020-01-15] MEDS: HYDROMORPHONE 2MG/ML 2 MG/ML ML IV PRN ×3 (00:25→06:50)
[2020-01-15] MEDS: ONDANSETRON HCL INJ 2MG/ML 2ML 2 MG/ML VIAL IV PRN ×4 (03:30→21:12)
[2020-01-15 05:27] LABS: HEMATOCRIT 29.8 % (34.2-44.1); HEMOGLOBIN 9.5 g/dL (12.0-16.0); MEAN CORPUSCULAR HEMOGLOBIN 23.2 pg (28-32); MEAN CORPUSCULAR HGB CONC 31.9 g/dL (31-35); MEAN CORPUSCULAR VOLUME 72.9 fL (81-99); PLATELET COUNT 284 x10e3/uL (140-360); RED BLOOD COUNT 4.09 x10e6/uL (3.6-5.1); RED CELL DISTRIBUTION WIDTH 17.7 % (11.7-14.4)
[2020-01-15 05:59] LABS: ANION GAP 10.8 mmol/L (8-16); BLOOD UREA NITROGEN < 5 mg/dL (7-26); CALCIUM 9.4 mg/dL (8.4-10.2); CARBON DIOXIDE 25 mmol/L (22-29); CHLORIDE 109 mmol/L (98-107); CREATININE, SERUM 0.52 mg/dL (0.57-1.11); EST GLOMERULAR FILTRATION RATE > 60 ML/MIN (60-); GLUCOSE 93 mg/dL (74-118); POTASSIUM 3.8 mmol/L (3.5-5.1); SODIUM 141 mmol/L (136-145)
[2020-01-15 06:20] LABS: BUN/CREATININE RATIO 10 (6-25)
[2020-01-15] MEDS: SODIUM CHLORIDE 0.9% 1000ML 1,000 ML IV SCH ×2 (06:50→16:51)
--- NOTE | 2020-01-15 07:30 | NUR ---
Bedside report and rounds completed with oncoming nurse. Patient in bed with call light in reach. No issues or concerns expressed or noted.
--- NOTE | 2020-01-15 08:28 | Progress Note ---
DATE: 01/15/2020 SUBJECTIVE: Ms. Graves is a 24-year-old female with a history of sickle cell anemia, seizure disorder, stroke, came to the emergency room complaining of body aches due to a sickle cell crisis. White count was elevated. She complained of chest pain. EKG and troponin were negative. She is still complaining of having diarrhea. PHYSICAL EXAMINATION: GENERAL: She is awake and alert. She is feeling better. VITAL SIGNS: Temperature is 98.3, blood pressure 114/67. HEART: Regular rate. LUNGS: Clear to auscultation. ABDOMEN: Soft. LABORATORY DATA: On the blood work, white count is 10.65, hemoglobin 9.5, hematocrit 29.8, potassium 3.8, creatinine is 0.52. Cultures have been negative. ASSESSMENT: 1. Sickle cell crisis. 2. Chronic pain syndrome. 3. Seizure disorder. 4. Fever, resolved. 5. Diarrhea. PLAN: The plan at present time is to continue to monitor electrolytes. We are going to start tapering Dilaudid since she is getting 2 mg IV every 3 hours. We are going to start tapering it down, so we can discharge her tomorrow morning if she is stable. All this was discussed with nurse and the patient. All questions were answered to satisfaction. MD JERICHO Mayes/HUGH /[id number]
[2020-01-15] MEDS: FOLIC ACID 1 MG TAB PO SCH (09:08)
[2020-01-15] MEDS: LEVETIRACETAM 500 MG TAB PO SCH ×2 (09:08→16:37)
[2020-01-15] MEDS: ASCORBIC ACID 500 MG TAB PO SCH (09:08)
[2020-01-15] MEDS: MULTIVITAMINS/MINERALS TAB PO SCH (09:08)
[2020-01-15] MEDS: VITAMIN E 400 UNIT CAP PO SCH (09:09)
--- NOTE | 2020-01-15 12:04 | Consultation ---
DATE OF CONSULTATION: 01/10/[address] Zo Shin. HISTORY OF PRESENT ILLNESS: Ms. Graves is a 24-year-old black female, referred to me for evaluation of sickle cell crisis. The patient had presented with weakness, shortness of breath, burning in the urine, also pain in the bones and joints. Subsequently, had a temperature of 100.1. Subsequently, referred to me for further evaluation and treatment. HISTORY OF PAST ILLNESS: History of SS disease. The patient is not being maintained on any Hydrea as per the history. FAMILY HISTORY: History of SS disease, multiple crises. REVIEW OF SYSTEMS: HEENT: Normal. CARDIAC: Normal. RESPIRATORY: Normal. GI: Normal. : At the present time, she has burning while passing the urine. MUSCULOSKELETAL: History of sickle cell infarctive crisis. PHYSICAL EXAMINATION: GENERAL: A moderately built female, anemic. No adenopathy. VITAL SIGNS: Temperature of 100.1, pulse 127, blood pressure 112/65. LUNGS: Clear. BREASTS: Deferred at request. ABDOMEN: Soft. There is no hepatosplenomegaly. RECTAL AND VAGINAL: Deferred at request. CENTRAL NERVOUS SYSTEM: Essentially normal. EXTREMITIES: Painful joints. LABORATORY DATA: Sodium 139, potassium 3.8, chloride 107, CO2 of 25, BUN 5, creatinine 0.5, glucose 122. Hemoglobin of 7.8, hematocrit 24.5, platelets of 298,000 with a white count of 21,700 with shift to the left. Bilirubin 1.1, SGOT 37, SGPT 24, alkaline phosphatase 81. IMPRESSION: 1. Sickle cell crisis. 2. Infarctive crisis. 3. Hemolytic crisis. 4. Leukocytosis. 5. Possible urinary tract infection. PLAN, COMMENTS AND SUGGESTIONS: Suggest IV fluids. Suggest oxygen. Suggest cultures. Suggest antibiotics. We will give blood transfusion. The patient's white count today shows a white count of 10,600. Hemoglobin is 9.5. Retic response has been less than 5%. At least, she does not have any hemolytic crisis at this time. The patient could be discharged when okay with the attending. Thank you very much for allowing me to participate in the management of this patient during this hospitalization. The patient should go back to her own souvenir assembler and her primary care doctor for followup. MD CAT Holliday/HUGH /[id number]
[2020-01-15] MEDS: HYDROMORPHONE 1MG/1ML INJ IV PRN ×2 (12:46→16:37)
--- NOTE | 2020-01-15 16:35 | NUR ---
Nutrition Screen Note RD Recommendation for Physician: -Continue regular diet Plan of Care: RD following, monitoring for tolerance and adequacy Nutrition reason for involvement: length of stay Primary Diagnose(s): sickle cell crisis PMH: sickle cell disease Ht: 64 in Wt:142 lb BMI: 24.4 kg/m2 IBW:[address] Assessment: (01/15/20) Chart reviewed. Labs and meds reviewed. Pt is a 24 year old female admitted with sickle cell crisis. Pt was sleeping at time of visit. Pt has been eating 50-75% per documentation. Pt does not have a weight in chart for this admission. Recommend to weight patient. Will continue to monitor. Current Diet: regular diet Malnutrition Evaluation (01/15/20) The patient does not meet criteria for a specified degree of malnutrition at this time. Will re-evaluate at follow-up as appropriate. Diet Education Needs Assessment: Diet education not indicated. Pt is on a regular diet Nutrition Care Level: low Signed: Vy Gutierrez, RD, LD
[2020-01-15] MEDS: VANCOMYCIN 250MG/5ML ORAL SOLN PO SCH (18:17)
--- NOTE | 2020-01-15 19:00 | NUR ---
BED SIDE SHIFT REPORT RECEIVED FROM DAY RN. PT IS ALERT AND ORIENTED X3. RESPIRATIONS ARE EVEN AND UNLABORED. PT IS AFEBRILE. NO COUGH NOTED. PT REPORTS STOOLS ARE NOW SOFT.PT TAKING DILAUDID Q 4 HRS NEEDED FOR PAIN. PAIN MED TO CHANGE AT 12MN TO Q 6HRSPRN. PT REPORTS INTERMITENT GENERALIZED PAIN AND STOMACH CRAMPS . PT VOIDING PER BR. NS INFUSING AT 125/HR VIA LEFT FOREARM.SITE HEALTHY. CALL LIGHT WITHIN REACH. PT IN SEMI-FOWLERS POSITION IN BED WATCHING MOVIES ON HER COMPUTER.BED LOCKED AND IN LOW POSITION.
--- NOTE | 2020-01-15 19:50 | NUR ---
walking rounds complete, report given to oncoming nurse.
[2020-01-15] MEDS ORDERED: HYDROMORPHONE 1MG/1ML INJ IV STA (20:33)
[2020-01-16] MEDS: SODIUM CHLORIDE 0.9% 1000ML 1,000 ML IV SCH ×2 (00:09→06:07)
[2020-01-16] MEDS: VANCOMYCIN 250MG/5ML ORAL SOLN PO SCH ×2 (00:09→06:19)
[2020-01-16] MEDS: ONDANSETRON HCL INJ 2MG/ML 2ML 2 MG/ML VIAL IV PRN ×2 (00:51→04:09)
[2020-01-16] MEDS: HYDROMORPHONE 1MG/1ML INJ IV PRN ×2 (00:54→09:40)
[2020-01-16 05:24] VITALS: BP 106/56
[2020-01-16 08:01] VITALS: BP 95/51
[2020-01-16 08:38] VITALS: BP 95/51
--- NOTE | 2020-01-16 09:04 | Discharge Summary ---
HISTORY OF PRESENT ILLNESS: Ms. Graves is a 24-year-old female with history of seizure disorder, stroke, sickle cell anemia, who came to the emergency room when a sickle cell with body aches with sickle cell crisis. She was started on IV fluids. She had chest pain. EKG and troponin were negative. White count was elevated. She was having diarrhea. She was going to have a C. diff. PHYSICAL EXAMINATION: GENERAL: Today, she is awake and alert. Diarrhea has improved. VITAL SIGNS: Temperature is 97.7, blood pressure 95/51. HEART: Regular rate. LUNGS: Clear to auscultation. ABDOMEN: Soft. LABORATORY DATA: On the blood work, white count is 10.65, hemoglobin is 9.5, hematocrit 29.8, potassium 3.8, creatinine is 0.52. C. diff toxin came back positive. Blood cultures and urine cultures were negative. DISCHARGE DIAGNOSES: On this patient. 1. Sickle cell crisis. 2. Chronic pain syndrome. 3. Clostridium difficile colitis. 4. Seizure disorder. 5. Fever, resolved. PLAN: Plan at the present time is to discharge the patient home and to continue her home medications. She is also going to be on vancomycin. She needs followup with her PCP in one week. She is to call me or come back to the emergency room if any recurrent problem. MD JERICHO Mayes/HUGH /[id number]
[2020-01-16 09:24] LABS: HEMATOCRIT 30.7 % (34.2-44.1); HEMOGLOBIN 9.6 g/dL (12.0-16.0); MEAN CORPUSCULAR HGB CONC 31.3 g/dL (31-35); MEAN CORPUSCULAR VOLUME 73.6 fL (81-99); PLATELET COUNT 319 x10e3/uL (140-360); RED BLOOD COUNT 4.17 x10e6/uL (3.6-5.1); RED CELL DISTRIBUTION WIDTH 18.6 % (11.7-14.4)
[2020-01-16 10:45] LABS: ANISOCYTOSIS SLIGHT; EOSINOPHILS % (MANUAL) 1 % (0-7); LYMPHOCYTES % (MANUAL) 33 % (19-48); MONOCYTES % (MANUAL) 2 % (3.4-9.0); NEUTROPHILS % (MANUAL) 64 % (40-74)
[2020-01-16 10:46] LABS: MICROCYTOSIS SLIGHT; OVALOCYTES FEW; TARGET CELLS FEW
[2020-01-16 10:47] LABS: POLYCHROMASIA FEW
[2020-01-16 10:49] LABS: PLATELET ESTIMATE ADEQUATE; PLATELET MORPHOLOGY COMMENT NORMAL; RBC MORPHOLOGY COMMENT ABNORMAL; SCHISTOCYTES FEW
[2020-01-16 11:55] LABS: EOSINOPHILS % (MANUAL) 1 % (0-7); LYMPHOCYTES % (MANUAL) 21 % (19-48); MONOCYTES % (MANUAL) 6 % (3.4-9.0); NEUTROPHILS % (MANUAL) 71 % (40-74)
[2020-01-16 11:56] LABS: ANISOCYTOSIS SLIGHT; PLATELET ESTIMATE ADEQUATE; PLATELET MORPHOLOGY COMMENT NORMAL; RBC MORPHOLOGY COMMENT ABNORMAL
[2020-01-16 11:57] LABS: BURR CELLS SLIGHT; OVALOCYTES FEW; POLYCHROMASIA FEW
[2020-01-16 11:58] LABS: SCHISTOCYTES FEW
[2020-01-16 12:01] LABS: MICROCYTOSIS SLIGHT
--- NOTE | 2020-01-16 12:01 | NUR ---
pt was asked to signed discharge paper, pt attempt to rip it out of my hands, the discharge packet was ripped in half , pt was also given her prescription for vancomycin.
--- NOTE | 2020-01-16 12:10 | NUR ---
pt discharged home, medications given , pt was asked to follow up with her PCP. pt tried to leave with saline lock, told pt security was called she than raised here sleeve and took iv out her self. pt was then escorted to front door by 2 nurses and security.
[2020-01-16 12:24] VITALS: BP 118/64
== END 2020-01-16 12:10 | disposition home or self-care (01) | DRG 812 ==
LOC: ER 12:13 → ERHOLD 13:35 → ER 15:20 → MED/SURG2 16:30 → OBSVTOIN 01-10 14:49
PROVIDERS: ADMIT Internal Medicine; ATTEND Internal Medicine
DX: D57.819 Other sickle-cell disorders with crisis, unspecified (principal); A04.72 Enterocolitis due to Clostridium difficile, not specified as recurrent; N39.0 Urinary tract infection, site not specified; G89.4 Chronic pain syndrome; G40.909 Epilepsy, unspecified, not intractable, without status epilepticus; R50.81 Fever presenting with conditions classified elsewhere; D64.9 Anemia, unspecified
CPT/HCPCS: 36415; 71046; 80048; 80053; 81001; 82550; 82553; 83605; 84484; 84702; 85007; 85025; 85027; 85045; 86850; 86900; 86920; 87040; 87086; 87493; 93005; 96361; 99251; 99284; G0378; J0692; J0696; J1170; J2270; J2405; J7030; J7050; P9016